=== PATIENT | male | born 1980 | race Caucasian/White ===

== ENCOUNTER 2022-10-04 11:08 | Outpatient (OUT) | payer OTHER, SELFPAY ==
[2022-10-06 00:07] LABS: Lead, Blood (Adult) 33.7 ug/dL (0.0-3.4)
== END 2022-10-04 11:09 ==
PROVIDERS: PCP Family Medicine; Visit Provider Family Medicine
DX: R78.71 Abnormal lead level in blood (principal)
CPT/HCPCS: 36415; 83655

== ENCOUNTER 2022-11-07 15:54 | Outpatient (OUT) | payer OTHER, SELFPAY ==
[2022-11-07 16:25] LABS: Basophils Absolute Auto 0.1 10^3/uL (0.0-0.1); Basophils Percent Auto 0.8 % (0.2-2.0); Eosinophils Percent Auto 0.3 % (0.9-7.0); Hematocrit 41.2 % (42.0-54.0); Hemoglobin 14.2 g/dL (14.0-18.0); Immature Granulocytes Abs Auto 0.02 10^3/uL (0.00-0.03); Immature Granulocytes Pct Auto 0.3 % (0.0-0.5); Lymphocytes Absolute Auto 1.7 10^3/uL (1.2-3.8); Lymphocytes Percent Auto 22.4 % (20.5-60.0); Mean Corpuscular HGB Conc 34.5 g/dL (29.9-35.2); Mean Corpuscular Hemoglobin 29.6 pg (25.9-34.0); Mean Corpuscular Volume 85.8 fL (80.0-94.0); Monocytes Absolute Auto 0.6 10^3/uL (0.3-0.8); Monocytes Percent Auto 8.4 % (1.7-12.0); Neutrophils Percent Auto 67.8 % (43.0-75.0); Platelet Count 277 10^3/uL (150-450); White Blood Count 7.4 10^3/uL (4.0-11.0)
[2022-11-07 17:03] LABS: Estimated Average Glucose 108 mg/dL; Glycohemoglobin A1C 5.4 % (4.5-6.2)
[2022-11-07 17:14] LABS: Prostate Specific Antigen Scrn 1.34 ng/mL (<=4.00)
[2022-11-07 18:08] LABS: Alanine Aminotransferase 33 U/L (16-63); Albumin Globulin Ratio 1.1; Albumin Level 4.3 g/dL (3.4-5.0); Alkaline Phosphatase 109 U/L (46-116); Anion Gap 16.1; Aspartate Amino Transferase 21 U/L (15-37); BUN Creatinine Ratio 10.3; Bilirubin Total 0.3 mg/dL (0.2-1.0); Calcium 10.4 mg/dL (8.5-10.1); Carbon Dioxide 24.5 mmol/L (21.0-32.0); Chloride 103 mmol/L (98-107); Chol HDL Ratio 3.8; Cholesterol 159 mg/dL (<=200); Estimated GFR (African America >60 (>=60); Estimated GFR (Non-African Ame >60 (>=60); Free T3 2.87 pg/mL (2.18-3.98); Glucose 89 mg/dL (74-106); HDL Cholesterol 42 mg/dL (40-60); LDL Cholesterol Calculated 95.8 mg/dL; Potassium 4.6 mmol/L (3.5-5.1); Sodium 139 mmol/L (136-145); Thyroid Stimulating Hormone 1.224 uIU/mL (0.358-3.740); Total Protein 8.3 g/dL (6.4-8.2); Triglycerides 106 mg/dL (<=150); VLDL CHOLESTEROL 21.2 mg/dL
[2022-11-10 06:09] LABS: Lead, Blood (Adult) 32.2 ug/dL (0.0-3.4)
== END 2022-11-07 15:55 | disposition home or self-care (01) ==
LOC: LAB 15:57
PROVIDERS: PCP Family Medicine; Visit Provider Family Medicine
DX: R53.83 Other fatigue (principal); K21.9 Gastro-esophageal reflux disease without esophagitis; R06.00 Dyspnea, unspecified; R73.09 Other abnormal glucose; Z12.5 Encounter for screening for malignant neoplasm of prostate; R78.71 Abnormal lead level in blood
CPT/HCPCS: 36415; 80053; 80061; 83036; 83525; 83655; 84436; 84443; 84481; 85025; G0103

== ENCOUNTER 2022-11-14 15:52 | Outpatient (OUT) | payer OTHER, SELFPAY ==
--- NOTE | 2022-11-14 | XR_ITS ---
The [address] [address] Patient Name: YAMILET WHITAKER MRN: [id number] date: 1980 Sex: M Assigned Patient Location: RAD Current Patient Location: RAD Accession/Order Number: [id number] Exam Date: 11/14/2022 16:15 Report Date: 11/14/2022 16:31 At the request of: IRENA JEFFERY Procedure: XR chest 2V EXAM: XR chest 2V HISTORY: Chest Pain r07.9 Covid U07.1 fatigue R53.83 COMPARISON: 09/09/2020. TECHNIQUE: PA and lateral views of the chest FINDINGS: There is no focal airspace consolidation. There are a few stable scattered calcified granuloma. There are mild reticular opacities in right lateral mid lung, likely represent scarring. The cardiomediastinal silhouette is not enlarged. No evidence of pleural effusion or pneumothorax are identified. No acute osseous abnormality. XR/XR chest 2V IMPRESSION: No acute cardiopulmonary process. Electronically authenticated by: RUBIN MCGILL Date: 11/14/2022 16:31
[2022-11-14 16:29] LABS: Troponin I High Sensitivity <4.0 pg/mL (4.0-76.1)
== END 2022-11-14 15:53 | disposition home or self-care (01) ==
LOC: RAD 15:54
PROVIDERS: PCP Family Medicine; Visit Provider Family Medicine
DX: U07.1 COVID-19 (principal); R07.9 Chest pain, unspecified; R53.83 Other fatigue
CPT/HCPCS: 36415; 71046; 83880; 84484

== ENCOUNTER 2023-01-16 15:12 | Outpatient (OUT) | payer OTHER, SELFPAY ==
[2023-01-17 20:08] LABS: Lead, Blood (Adult) 24.6 ug/dL (0.0-3.4)
== END 2023-01-16 15:13 | disposition home or self-care (01) ==
LOC: LAB 15:13
PROVIDERS: PCP Family Medicine; Visit Provider Family Medicine
DX: R78.71 Abnormal lead level in blood (principal)
CPT/HCPCS: 36415; 83655

== ENCOUNTER 2023-03-13 15:16 | Outpatient (OUT) | payer OTHER, SELFPAY ==
[2023-03-15 11:09] LABS: Lead, Blood (Adult) 29.3 ug/dL (0.0-3.4)
== END 2023-03-13 15:17 | disposition home or self-care (01) ==
LOC: LAB 15:17
PROVIDERS: PCP Family Medicine; Visit Provider Family Medicine
DX: R78.71 Abnormal lead level in blood (principal)
CPT/HCPCS: 36415; 83655

== ENCOUNTER 2023-05-01 15:39 | Outpatient (OUT) | payer OTHER, SELFPAY ==
--- OUTSIDE RECORDS SUMMARY | 2023-05-01 15:49 | XMS_ITS | CCD ---
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 activity/Vol] 22 U/L Normal 15-37 [facility] Comment on above: Performed By: #### C MP, LIPID #### [facility] [address] [place] [address] Dr. Rachel Cortez Bilirubin [Mass/Vol] 0.4 mg/dL Normal 0.2-1.0 [facility] Comment on above: Performed By: #### C MP, LIPID #### [facility] [address] [place], [place] [id number] Dr. Rachel Cortez Calcium [Mass/Vol] 10.1 mg/dL Normal 8.5-10.1 [facility] Comment on above: Performed By: #### C MP, LIPID #### [facility] [address] [place] [address] Dr. Rachel Cortez Chloride [Moles/Vol] 107 mmol/L Normal 98-107 [facility] Comment on above: Performed By: #### C MP, LIPID #### [facility] [address] [place] [address] Dr. Rachel Cortez CO2 [Moles/Vol] 30.0 mmol/L Normal 21.0-32.0 [facility] Comment on above: Performed By: #### C MP, LIPID #### [facility] [address] [place] [address] Dr. Rachel Cortez Creatinine [Mass/Vol] 1.16 mg/dL Normal 0.70-1.30 [facility] Comment on above: Performed By: #### C MP, LIPID #### [facility] [address] [place] [address] Dr. Rachel Cortez EGFR-AF NIGERIAN >60 Normal >=60 [facility] Comment on above: Performed By: #### C MP, LIPID #### [facility] [address] [place] [address] Dr. Rachel Cortez EGFR-NON AF NIGERIAN >60 Normal >=60 [facility] Comment on above: Performed By: #### C MP, LIPID #### [facility] [address] [place] [address] Dr. Rachel Cortez Globulin (S) [Mass/Vol] 3.0 g/dL Normal [facility] Comment on above: Performed By: #### C MP, LIPID #### [facility] [address] [place] [address] Dr. Rachel Cortez Glucose [Mass/Vol] 88 mg/dL Normal 74-106 [facility] Comment on above: Performed By: #### C MP, LIPID #### [facility] [address] [place] [address] Dr. Rachel Cortez Potassium [Moles/Vol] 3.9 mmol/L Normal 3.5-5.1 [facility] Comment on above: Performed By: #### C MP, LIPID #### [facility] [address] [place] [address] Dr. Rachel Cortez Protein [Mass/Vol] 7.0 g/dL Normal 6.4-8.2 [facility] Comment on above: Performed By: #### C MP, LIPID #### [facility] [address] [place] [address] Dr. Rachel Cortez Sodium [Moles/Vol] 143 mmol/L Normal 136-145 [facility] Comment on above: Performed By: #### C MP, LIPID #### [facility] [address] [place] [address] Dr. Rachel Cortez Urea nitrogen [Mass/Vol] 16.0 mg/dL Normal 7.0-18.0 [facility] Comment on above: Performed By: #### C MP, LIPID #### [facility] [address] [place] [address] Dr. Rachel Cortez Urea nitrogen/Creatinine [Mass ratio] 13.8 mg/mg Normal [facility] Comment on above: Performed By: #### C MP, LIPID #### [facility] [address] [place] [address] Dr. Rachel Cortez TSHon 05-07-2022 TSH 2.417 uIU/mL Normal 0.358-3.740 [facility] Comment on above: Performed By: #### I NSULIN #### [facility] [address] [place] [address] Dr. Rachel Cortez UA RANDOM W/MICROSCOPICon BACTERIA NONE SEEN Normal NONE SEEN [facility] Comment on above: Performed By: #### I NSULIN #### [facility] [address] [place] [address] Dr. Rachel Cortez Bilirubin Ql (U) Negative Normal NEGATIVE [facility] Comment on above: Performed By: #### I NSULIN #### [facility] [address] [place] [address] Dr. Rachel Cortez CAST NONE SEEN Normal NONE SEEN [facility] Comment on above: Performed By: #### I NSULIN #### [facility] [address] [place] [address] Dr. Rachel Cortez Clarity (U) CLEAR Normal CLEAR [facility] Comment on above: Performed By: #### I NSULIN #### [facility] [address] [place] [address] Dr. Rachel Cortez Color (U) YELLOW Normal YELLOW [facility] Comment on above: Performed By: #### I NSULIN #### [facility] [address] [place] [address] Dr. Rachel Cortez Crystals LM Nom (Urine sed) NONE SEEN Normal NONE SEEN [facility] Comment on above: Performed By: #### I NSULIN #### [facility] [address] [place] [address] Dr. Rachel Cortez Epithelial cells LM Ql (Urine sed) NONE SEEN Normal NONE SEEN /RARE [facility] Comment on above: Performed By: #### I NSULIN #### [facility] [address] [place] [address] Dr. Rachel Cortez Glucose Ql (U) Negative Normal NEGATIVE [facility] Comment on above: Performed By: #### I NSULIN #### [facility] [address] [place] [address] Dr. Rachel Cortez Hemoglobin Ql (U) Negative Normal NEGATIVE [facility] Comment on above: Performed By: #### I NSULIN #### [facility] [address] [place] [address] Dr. Rachel Cortez Ketones Ql (U) Negative Normal NEGATIVE [facility] Comment on above: Performed By: #### I NSULIN #### [facility] [address] [place] [address] Dr. Rachel Cortez LEUKOCYTES Negative Normal NEGATIVE [facility] Comment on above: Performed By: #### I NSULIN #### [facility] [address] [place] [address] Dr. Rachel Cortez MUCOUS MODERATE Abnormal NONE SEEN [facility] Comment on above: Performed By: #### I NSULIN #### [facility] [address] [place] [address] Dr. Rachel Cortez Nitrite Ql (U) Negative Normal NEGATIVE [facility] Comment on above: Performed By: #### I NSULIN #### [facility] [address] [place] [address] Dr. Rachel Cortez pH (U) 6.0 [pH] Normal 5-9 [facility] Comment on above: Performed By: #### I NSULIN #### [facility] [address] [place] [address] Dr. Rachel Cortez RBC NONE SEEN Abnormal 0-2 [facility] Comment on above: Performed By: #### I NSULIN #### [facility] [address] [place] [address] Dr. Rachel Cortez SPEC GRAVITY 1.030 Abnormal 1.005-<=1.[address] [facility] Comment on above: Performed By: #### I NSULIN #### [facility] [address] [place] [address] Dr. Rachel Cortez UA PROTEIN Negative Normal NEGATIVE/ TRACE [facility] Comment on above: Performed By: #### I NSULIN #### [facility] [address] [place] [address] Dr. Rachel Cortez Urobilinogen Qn (U) 1.0 {Colby'U}/dL Normal 0.2 - 1. 0 [facility] Comment on above: Performed By: #### I NSULIN #### [facility] [address] [place] [address] Dr. Rachel Cortez WBC NONE SEEN Normal NONE SEEN [facility] Comment on above: Performed By: #### I NSULIN #### [facility] [address] [place] [address] Dr. Rachel Cortez XR LSPINE MIN 4 VIEWSon 04-24 XR LSPINE MIN 4 VIEWS EXAMINATION: XR LSPINE MIN 4 VIEWS HISTORY: Lumbar radiculopathy ; chronic back pain radiating into left leg COMPARISON: No relevant comparison available. FINDINGS: BONES: Mild degenerative facet arthropathy L5-S1. No significant spondylosis, scoliosis, fracture, or visible bony lesion. DISC SPACES: No significant disc height narrowing, subluxation, or endplate abnormality. PARASPINOUS: Negative. No paraspinous abnormality is seen. OTHER: Negative. IMPRESSION: 1. Mild degenerative facet arthropathy lower lumbar spine. 2. No appreciable acute abnormality or significant degenerative changes. Electronically authenticated by: MARINA MAIN Date: 2022-05-06 16:40 Normal [facility] Coding Summary.on 03-31-2020 Coding Summary. CODING DATE: 03/31/2020 FINAL [facility] STATUS: Home (Routine DC) PAYOR: Self Pay APC DESCRIPTION 5522 Level 2 Imaging without Contrast ADMIT DX: REASON FOR VISIT DX: M54.5 Low back pain FINAL DX: PRINCIPAL: S39.012A Strain of muscle, fascia and tendon of lower back, initial encounter SECONDARY: X50.0XXA Overexertion from strenuous movement or load, initial encounter PYMT PROC APC STAT DESCRIPTION DOCTOR NAME DATE NOTE: The code number assigned matches the documented diagnosis and / or procedure in the patient's chart. However, the narrative phrase printed from the coding software may appear abbreviated, or result in slightly different terminology. Coded By: Georgia Barajas Date Saved: 03/31/2020 08:22 am Normal [facility] Consent for Treatmenton Consent for Treatment [id number] #1.00CD:127 Normal [facility] Discharge Instructionson Discharge Instructions [id number]#1.00CD:127 Normal [facility] ED Clinical Summaryon 2019 ED Clinical Summary [address] [place] [address] ED Clinical Summary Person Information Name: YAMILET WHITAKER [place] Age: 39 Years : 1980 Sex: Male Language: Cape Verdean PCP: Irena Jeffery MD Marital Status: Single Visit Id: Visit Reason: Back pain; BACK PAIN Speciality: Acuity: 4 Enc Type: Emergency Med Service: Emergency Arrival: 03/30/2020 11:37:37 Discharge: 03/30/2020 14:10:39 LOS: 000 02:33 Checkin: 03/30/2020 11:37:37 Checkout: 03/30/2020 14:10:39 Dispo Type: Home (Routine DC) EVENTS: Event Name Event Status Request Date/Time Start Date/Time Complete Date/Time Arrive Complete 03/30/2020 11:37:37 03/30/2020 11:37:37 03/30/2020 11:37:37 Document Home Meds Request 03/30/2020 11:37:37 Triage Complete 03/30/2020 11:37:37 03/30/2020 11:43:16 03/30/2020 11:43:16 Bed Assign Complete 03/30/2020 11:43:32 03/30/2020 11:43:32 03/30/2020 11:43:32 Dr Exam Complete 03/30/2020 11:43:32 03/30/2020 11:47:33 03/30/2020 11:47:33 RN Exam Complete 03/30/2020 11:43:32 03/30/2020 12:04:58 03/30/2020 12:04:58 Registration Complete 03/30/2020 11:45:33 03/30/2020 11:45:33 03/30/2020 11:45:33 Reg Complete Request 03/30/2020 11:45:33 Registration Complete 03/30/2020 11:47:33 03/30/2020 13:58:04 03/30/2020 13:58:04 Dr Exam Complete 03/30/2020 11:48:27 03/30/2020 11:48:27 03/30/2020 11:48:27 X-Ray Complete 03/30/2020 11:55:24 03/30/2020 11:59:01 03/30/2020 12:13:47 Wet Read Complete 03/30/2020 12:13:47 03/30/2020 12:15:23 03/30/2020 12:15:23 Meds Admin Complete 03/30/2020 12:18:37 03/30/2020 12:50:04 Discharge Complete 03/30/2020 12:18:40 03/30/2020 14:05:58 03/30/2020 14:05:58 Transfer Complete 03/30/2020 14:05:58 03/30/2020 14:05:58 03/30/2020 14:05:58 [address] [facility] [facility] [address] PHYS DOC NOTES: MEDICAL INFORMATION: Prescriptions Given: New Medications Printed Prescriptions acetaminophen-hydroc odone (Wheeler 325 mg-5 mg oral tablet) 1 Tablets By Mouth every 6 hours as needed for pain for 3 Days. Refills: 0. methocarbamol (Robaxin-750 oral tablet) 2 Tablets By Mouth 3 times a day for 3 Days. Refills: 0. predniSONE (predniSONE 20 mg Tab) 3 Tablets By Mouth every day for 5 Days. Refills: 0. Medications to Continue with No Changes Other Medications brompheniramine/dext romethorphan/PSE (Bromfed DM oral syrup) 5 Milliliter By Mouth 4 times a day as needed for cold symptoms. Refills: 0. PATIENT EDUCATION INFORMATION: Instructions: Lumbosacral Strain Follow up: With: Address: When: Irena Jeffery [address] [place] [address], [facility] [address] Business (1) In 3 days 04/02/2020 DIAGNOSIS: Lumbar strain Normal [facility] ED Note-Physicianon 03-30-20 ED Note-Physician Basic Information Time Seen: Darrick Gibbs PA-C 03/30/2020 11:47 Chief Complaint Pt. presents to the ed with c/o left lower back pain that started last night while laying in bed. 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 History of Present Illness 39-year-old male comes into the ED for evaluation of back pain. He states he had some generalized back soreness for last couple of days. He attributes this to doing a lot of heavy lifting and moving. He went to stretch his back out while sitting in bed last night and felt a pop in the lumbar region. He presents complaining of pain to the left lumbar region with some radiation down the left leg. No associated paresthesias or saddle anesthesia. No lower extremity weakness. No bowel or bladder incontinence or retention. No dysuria or hematuria. No associated abdominal pain, nausea, vomiting, fever or chills. He has taken Motrin with some improvement. Review of Systems A 10 point review of systems is negative except as noted above. Medical and Surgical History: Reviewed and noted Social history: Lives at home Tobacco: Current Physical Exam Vitals & Measurements T: 36.4 ?C (Temporal Artery) HR: 73(Peripheral) RR: 16 BP: 118/76 SpO2: 100% HT: 178.0 cm HT: 178 cm WT: 70.5 kg WT: 70.5 kg BMI: 22.25 Nurses notes and vital signs reviewed and patient is not hypoxic. General: The patient appears well, resting comfortably. Skin: Warm, dry. Head: Atraumatic. Neck: No JVD. Eye: Normal conjunctiva. Ears, Nose, Mouth, and Throat: Moist mucous membranes. Cardiovascular: Strong distal pulses. Chest wall: Respiratory: Respirations are nonlabored. Back: Tenderness over the left lumbar region. No midline bony instability or step-offs. No swelling, ecchymosis or erythema. No area of point tenderness. Decreased range of motion. No evidence of lower extremity neurovascular compromise. No CVA tenderness noted bilaterally. Musculoskeletal: Normal ROM with no gross deformity. Patient able to ambulate without any significant difficulty. Gastrointestinal: Soft and nontender. Urological: Neurological: Awake and alert. No focal deficits. Follows commands. Psychiatric: Cooperative. Medical Decision Making Imaging shows no acute findings. Likely muscular etiology is discussed. No evidence of neurovascular compromise. He is treated with pain medication, muscle relaxers and steroids. Discharged with PCP follow-up. Patient was encouraged to return to the ED if symptoms worsen or change. Assessment/Plan Lumbar strain (S39.012A: Strain of muscle, fascia and tendon of lower back, initial encounter) Ordered: acetaminophen-hydroc odone, 1 tab(s), Oral, q6hr for pain for 3 day(s), 10 tab(s), Refill(s) 0 Orders: acetaminophen-oxycod one, 1 tab(s), Tab, Oral, Once, Stop date 03/30/20 12:18:00 EST, STAT, Start date 03/30/20 12:18:00 EST methocarbamol, 1,500 mg = 2 tab(s), Oral, TID, X 3 day(s), # 18 tab(s), Refills(s) 0 orphenadrine, 60 mg = 2 mL, Injection, IntraMuscular, Once, Stop date 03/30/20 12:18:00 EST, STAT, Start date 12/07/20 12:18:00 EST predniSONE, 60 mg = 3 tab(s), Oral, Daily, X 5 day(s), # 15 tab(s), Refills(s) 0 XR Spine Lumbosacral 2 or 3 Views Disposition Plan Patient Discharge Condition Disposition: Discharged home Condition: Improved and stable Counseled: Patient and/or family were counseled to workup, results, treatment plan and follow-up recommendations Discharge Prescription List Prescriptions Wheeler 325 mg-5 mg oral tablet, 1 tab(s), Oral, q6hr, PRN predniSONE 20 mg Tab, 60 mg= 3 tab(s), Oral, Daily Robaxin-750 oral tablet, 1500 mg= 2 tab(s), Oral, TID Follow-up With When Contact Information Irena Jeffery In 3 days 04/02/2020 [address] [id number] [place] [id number]- Business (1) Additional Instructions: Patient Education Lumbosacral Strain Attestation Patient seen and evaluated by the physician visitor services assistant. Attending physician was present in the emergency department and supervised care. This report was transcribed using voice recognition software. Every effort was made to ensure accuracy, however, inadvertently computerized territory sales consultant mistakes may be present. Appropriate healthcare PPE was used in evaluating this patient. The patient was placed in a mask. The healthcare provider was wearing mask, gloves, googles and utilizing proper hand hygiene. All equipment was properly cleansed. Problem List/Past Medical History Ongoing No qualifying data Historical No qualifying data Medications Inpatient orphenadrine 30 mg/mL Inj, 60 mg= 2 mL, IntraMuscular, Once Percocet 325 mg-5 mg Tab, 1 tab(s), Oral, Once Home Bromfed DM oral syrup, 5 mL, Oral, QID, PRN Wheeler 325 mg-5 mg oral tablet, 1 tab(s), Oral, q6hr, PRN predniSONE 20 mg Tab, 60 mg= 3 tab(s), Oral, Daily Robaxin-750 oral tablet, 1500 mg= 2 tab(s), Oral, TID Allergies No Known Allergies Social History Alcohol - Medium Risk, 03/30/2020 Current, Liquor, 3-5 times per week, 03/30/2020 Substance Abuse - Denies Substance Abuse, 03/30/2020 Tobacco - Denies Tobacco Use, 03/30/2020 Lab Results No qualifying data available. Diagnostic Results XR Spine Lumbosacral 2 or 3 Views * Preliminary * 03/30/20 12:15:18 NEGATIVE: No fracture, subluxation or other acute abnormality Read By: Shaun Tomlinson DO 03/30/20 12:15:19 NEGATIVE: No fracture, dislocation or other acute abnormality Read By: Darrick Gibbs PA-C [facility] Comment on above: Result Comment: Elec tronically Signed By: Darrick Gibbs PA-C\.br\Date and Time Signed: 03/30/20 12:26 EST\.br\Electronically Co-Signed By: Shaun Tomlinson DO\.br\Date and Time Co-Signed: 03/30/20 14:11 EST ED Patient Education Noteon 03-30-2020 ED Patient Education Note Musculoskeletal Lumbosacral Strain Lumbosacral strain is a strain of any of the parts that make up your lumbosacral vertebrae. Your lumbosacral vertebrae are the bones that make up the lower third of your backbone. Your lumbosacral vertebrae are held together by muscles and tough, fibrous tissue (ligaments). CAUSES A sudden blow to your back can cause lumbosacral strain. Also, anything that causes an excessive stretch of the muscles in the low back can cause this strain. This is typically seen when people exert themselves strenuously, fall, lift heavy objects, bend, or crouch repeatedly. RISK FACTORS ? Physically demanding work. ? Participation in pushing or pulling sports or sports that require a sudden twist of the back (tennis, golf, baseball). ? Weight lifting. ? Excessive lower back curvature. ? Forward-tilted pelvis. ? Weak back or abdominal muscles or both. ? Tight hamstrings. SIGNS AND SYMPTOMS Lumbosacral strain may cause pain in the area of your injury or pain that moves (radiates) down your leg. DIAGNOSIS Your health care provider can often diagnose lumbosacral strain through a physical exam. In some cases, you may need tests such as X-ray exams. TREATMENT Treatment for your lower back injury depends on many factors that your clinician will have to evaluate. However, most treatment will include the use of anti-inflammatory medicines. HOME CARE INSTRUCTIONS ? Avoid hard physical activities (tennis, racquetball, waterskiing) if you are not in proper physical condition for it. This may aggravate or create problems. ? If you have a back problem, avoid sports requiring sudden body movements. Swimming and walking are generally safer activities. ? Maintain good posture. ? Maintain a healthy weight. ? For acute conditions, you may put ice on the injured area. ? Put ice in a plastic bag. ? Place a towel between your skin and the bag. ? Leave the ice on for 20 minutes, 2?3 times a day. ? When the low back starts healing, stretching and strengthening exercises may be recommended. SEEK MEDICAL CARE IF: ? Your back pain is getting worse. ? You experience severe back pain not relieved with medicines. SEEK IMMEDIATE MEDICAL CARE IF: ? You have numbness, tingling, weakness, or problems with the use of your arms or legs. ? There is a change in bowel or bladder control. ? You have increasing pain in any area of the body, including your belly (abdomen). ? You notice shortness of breath, dizziness, or feel faint. ? You feel sick to your stomach (nauseous), are throwing up (vomiting), or become sweaty. ? You notice discoloration of your toes or legs, or your feet get very cold. MAKE SURE YOU: ? Understand these instructions. ? Will watch your condition. ? Will get help right away if you are not doing well or get worse. Document Released: 01/18/2006 Document Revised: 04/15/2014 Document Reviewed: 11/27/2013 ExitCare? Patient Information ?2015 Personally, [employer]. This information is not intended to replace advice given to you by your health care provider. Make sure you discuss any questions you have with your health care provider. [facility] ED Patient Summaryon 020 ED Patient Summary [address] [address] Patient Discharge Instructions Person Information Name: YAMILET WHITAKER Age: 39 Years Arrival Date: 03/30/2020 11:37:37 Discharge Diagnosis: Lumbar strain Primary Care Physician: Irena Jeffery MD Provider Information Primary Provider: Shaun Tomlinson DO [employer] Technician:Darrick Gibbs PA-C The exam and treatment you received in the Emergency Department were for an urgent problem and are not intended as complete care. It is important that you follow up with a doctor, nurse practitioner, or physician?s visitor services assistant for ongoing care. If your symptoms become worse or you do not improve as expected and you are unable to reach your usual health care provider, you should return to the Emergency Department. We are available 24 hours a day. YAMILET WHITAKER has been given the following list of patient education materials, prescriptions and follow-up instructions: Follow-up Instructions: With: Address: When: Irena Jeffery [address] [place] [address], [address] [place] [id number] [employer] (1) In 3 days 04/02/2020 In the event that this physician does not participate in your insurance network, please consult with your insurance company to find a nearby participating provider. Patient Education Materials: Lumbosacral Strain A MESSAGE TO ALL PATIENTS REGARDING OPIOIDS PRESCRIPTION OPIOIDS: WHAT YOU NEED TO KNOW Prescription opioids can be used to help relieve osrjvwwe-uq-utaabf pain and are often prescribed following a surgery or injury, or for certain health conditions. These medications can be an important part of the treatment but also come with serious risks. It is important to work with your healthcare provider to make sure you are getting the safest, most effective care. WHAT ARE THE RISKS AND SIDE EFFECTS OF OPIOID USE? Prescription opioids carry serious risks of addiction and overdose, especially with prolonged use. An opioid overdose, often marked by slowed breathing, can cause sudden . The use of prescription opioids can have a number of side effects as well, even when taken as directed: ? Tolerance?meaning you might need to take more of the medication for the same pain relief ? Physical dependence?meaning you have symptoms of withdrawal when a medication is stopped ? Increased sensitivity to pain ? Constipation ? Nausea, vomiting, and dry mouth ? Sleepiness and dizziness ? Confusion ? Depression ? Low levels of testosterone that can result in lower sex drive, energy, and strength ? Itching and sweating RISKS ARE GREATER WITH: ? History of drug misuse, substance use disorder, or overdose ? Mental health conditions (such as depression or anxiety) ? Sleep apnea ? Older age (65 years and older) ? Avoid alcohol while taking prescription opioids. Also, unless specifically advised by your health care provider, medications to avoid include: ? Benzodiazepines (such as Xanax or Valium) ? Muscle relaxants (such as Soma or Flexeril) ? Hypnotics (such as Ambien or Lunesta) ? Other prescription opioids KNOW YOUR OPTIONS Talk to your health care provider about ways to manage your pain that don?t involve prescription opioids. Some of these options may actually work better and have fewer risks and side effects. Options may include: ? Pain relievers such as acetaminophen, ibuprofen, and naproxen ? Some medication that are also used for depression or seizures ? Physical therapy and exercise ? Cognitive behavioral therapy, a psychological, goal-directed approach, in which patients learn how to modify physical, behavioral, and emotional triggers of pain and stress. IF YOU ARE PRESCRIBED OPIOIDS FOR PAIN: ? Never take opioids in greater amounts or more often than prescribed. ? Follow up with your primary health care provider. o Work together to create a plan on how to manage your pain. o Talk about ways to help manage your pain that don?t involve prescription opioids. o Talk about any and all concerns and side effects. ? Help prevent misuse and abuse o Never sell or share prescription opioids. o Never use another person?s prescription opioids. ? Store prescription opioids in a secure place and out of reach of others (this may include visitors, children, friends, and family). ? Safely dispose of unused prescription opioids: Find your community drug take-back program or your pharmacy mail-back program, or flush them down the toilet, following guidance from the Food and Drug Administration (www.fda.gov/Drugs/R esourcesForYou). ? Visit www.cdc.gov/drugover dose to learn about the risks of opioids abuse and overdose. ? If you believe you may be struggling with addiction, tell your health foster care social worker and ask for guidance or call SAMHSA?S National Helpline at 3-536-288-BFLV. v Source: US Department of Health and Human Services/Center for Disease Control & Prevention [facility] Medications Given: Medication Dose Route orphenadrine 60.00 mg IntraMuscular Left Gluteus Medius acetaminophen-oxycod one 1.00 tab(s) Oral Medication Information: New Medications Printed Prescriptions acetaminophen-hydroc odone (Wheeler 325 mg-5 mg oral tablet) 1 Tablets By Mouth every 6 hours as needed for pain for 3 Days. Refills: 0. methocarbamol (Robaxin-750 oral tablet) 2 Tablets By Mouth 3 times a day for 3 Days. Refills: 0. predniSONE (predniSONE 20 mg Tab) 3 Tablets By Mouth every day for 5 Days. Refills: 0. Medications to Continue with No Changes Other Medications brompheniramine/dext romethorphan/PSE (Bromfed DM oral syrup) 5 Milliliter By Mouth 4 times a day as needed for cold symptoms. Refills: 0. Comment: Pharmacy Information: Thank you for choosing [facility] Patient Education Materials: Lumbosacral Strain Lumbosacral strain is a strain of any of the parts that make up your lumbosacral vertebrae. Your lumbosacral vertebrae are the bones that make up the lower third of your backbone. Your lumbosacral vertebrae are held together by muscles and tough, fibrous tissue (ligaments). CAUSES A sudden blow to your back can cause lumbosacral strain. Also, anything that causes an excessive stretch of the muscles in the low back can cause this strain. This is typically seen when people exert themselves strenuously, fall, lift heavy objects, bend, or crouch repeatedly. RISK FACTORS ? Physically demanding work. ? Participation in pushing or pulling sports or sports that require a sudden twist of the back (tennis, golf, baseball). ? Weight lifting. ? Excessive lower back curvature. ? Forward-tilted pelvis. ? Weak back or abdominal muscles or both. ? Tight hamstrings. SIGNS AND SYMPTOMS Lumbosacral strain may cause pain in the area of your injury or pain that moves (radiates) down your leg. DIAGNOSIS Your health care provider can often diagnose lumbosacral strain through a physical exam. In some cases, you may need tests such as X-ray exams. TREATMENT Treatment for your lower back injury depends on many factors that your clinician will have to evaluate. However, most treatment will include the use of anti-inflammatory medicines. HOME CARE INSTRUCTIONS ? Avoid hard physical activities (tennis, racquetball, waterskiing) if you are not in proper physical condition for it. This may aggravate or create problems. ? If you have a back problem, avoid sports requiring sudden body movements. Swimming and walking are generally safer activities. ? Maintain good posture. ? Maintain a healthy weight. ? For acute conditions, you may put ice on the injured area. ? Put ice in a plastic bag. ? Place a towel between your skin and the bag. ? Leave the ice on for 20 minutes, 2?3 times a day. ? When the low back starts healing, stretching and strengthening exercises may be recommended. SEEK MEDICAL CARE IF: ? Your back pain is getting worse. ? You experience severe back pain not relieved with medicines. SEEK IMMEDIATE MEDICAL CARE IF: ? You have numbness, tingling, weakness, or problems with the use of your arms or legs. ? There is a change in bowel or bladder control. ? You have increasing pain in any area of the body, including your belly (abdomen). ? You notice shortness of breath, dizziness, or feel faint. ? You feel sick to your stomach (nauseous), are throwing up (vomiting), or become sweaty. ? You notice discoloration of your toes or legs, or your feet get very cold. MAKE SURE YOU: ? Understand these instructions. ? Will watch your condition. ? Will get help right away if you are not doing well or get worse. Document Released: 01/18/2006 Document Revised: 04/15/2014 Document Reviewed: 11/27/2013 ExitCare? Patient Information ?2015 [employer]. This information is not intended to replace advice given to you by your health care provider. Make sure you discuss any questions you have with your health care provider. JULIANNE Mitchell BRIAN S , have received the following patient education materials/instructio ns and have verbalized understanding: Patient Education Materials: Lumbosacral Strain Follow-up Instructions: With: Address: When: Irena Jeffery [address] [place] [address], [place] [address] Business (1) In 3 days 04/02/2020 Patient Signature Date Clinician/Nurse Signature Date 03/30/2020 14:06:00 [facility] Prescriptions/Work Noteson 1 05-31-2019 Prescriptions/Work Notes [id number] 2#1.00CD:127 [facility] XR Spine Lumbosacral 2 or 3 Viewson 03-30-2020 XR Spine Lumbosacral 2 or 3 Views Exam Date/Time: 03/30/2020 12:13 EST Reason for Exam: Pain, Traumatic Report IMPRESSION: NEGATIVE LUMBOSACRAL SPINE SERIES, EXCEPT FOR MINIMAL DEGENERATIVE HYPERTROPHIC SPURS FROM LUMBAR VERTEBRAL BODIES. CLINICAL HISTORY: Pain, Traumatic COMPARISON: NONE FINDINGS: Three views of the lumbosacral spine demonstrate no evidence of a fracture, subluxation, bone or joint abnormality, except for minimal degenerative hypertrophic spurs from lumbar vertebral bodies. FINAL REPORT Dictated: 03/30/2020 1:25 pm Nicholas Mullen M.D. Signed (Electronic Signature): 03/30/2020 4:43 pm Signed by: Nicholas Mullen M.D. Transcribed by: caleb Technologist: [facility] Encounters Encounter Date Encounter Type Care Provider Facility Start: 09-01-2022 End: 09-02-[address] IRENA JEFFERY . Facility:[facility] Start: 08-30-2022 End: 08-31-[address] IRENA JEFFERY . Facility:[facility] Start: 08-29-2022 End: 08-30-[address] IRENA JEFFERY . Facility:[facility] Start: 08-11-2022 End: 08-11-2022 ambulatory BEV MILLS . Facility:[facility] Start: 05-07-2022 End: 05-08-[address] IRENA JEFFERY . Facility:[facility] Start: 05-06-2022 End: 05-07-[address] IRENA JEFFERY . Facility: Procedures Date Procedure Procedure Detail Performing Clinician Start: 05-07-[address] BERTA JEFFERY . Comment on above: Performed By: #### L EADA #### [facility] [address] [place] [address] [address] Rachel Cortez Payers Date Payer Category Payer Unknown [id number] 2.16.84 [id number] 1980 Unknown [id number] 2.16.84 [id number] 1980 Unknown [id number] 2.16.84 [id number] 1978 Unknown [id number] 2.16.84 [id number] 1978 Unknown [id number] 2.16.84 [id number] 1980 Unknown [id number] 2.16.84 [id number] 1959 Unknown [id number] Summary Purpose Family History No Family History Records FoundNo Family History Records Found Advance Directives No Advanced Directives Records FoundNo Advanced Directives Records Found Additional Source Comments (unrecognized sect ion and content) No Status Records FoundNo Status Records Found INFORMATION SOURCE (unrecogn ized section and content) DATE CREATED AUTHOR 03/31/2020 [facility] DATE CREATED AUTHOR AUTHOR'S ORGANIZ ATION 09/05/2022 [facility] FOR RECORDS PERTAINING TO PATIENTS WHO ARE OR HAVE BEEN ENROLLED IN A CHEMICAL DEPENDENCY/SUBSTANCEABUSE PROGRAM, SOME INFORMATION MAY BE OMITTED. This clinical summary was aggregated from multiple sources. Caution should be exercised in using it in the provision of clinical care. This summary normalizes information from multiple sources, and as a consequence, information in this document may materially change the coding, format and clinical context of patient data. In addition, data may be omitted in some cases. CLINICAL DECISIONS SHOULD BE BASED ON THE PRIMARY CLINICAL RECORDS. [facility] [employer] [facility]. provides no warranty or guarantee of the accuracy or completeness of information in this document.
[2023-05-01 15:57] LABS: Basophils Percent Auto 0.5 % (0.2-2.0); Eosinophils Percent Auto 0.1 % (0.9-7.0); Hematocrit 40.4 % (42.0-54.0); Hemoglobin 13.8 g/dL (14.0-18.0); Immature Granulocytes Abs Auto 0.05 10^3/uL (0.00-0.03); Immature Granulocytes Pct Auto 0.6 % (0.0-0.5); Lymphocytes Percent Auto 24.9 % (20.5-60.0); Mean Corpuscular HGB Conc 34.2 g/dL (29.9-35.2); Mean Corpuscular Hemoglobin 29.9 pg (25.9-34.0); Mean Corpuscular Volume 87.4 fL (80.0-94.0); Mean Platelet Volume 9.8 fL (9.5-13.5); Monocytes Absolute Auto 0.8 10^3/uL (0.3-0.8); Monocytes Percent Auto 9.6 % (1.7-12.0); Neutrophils Absolute Auto 5.2 10^3/uL (1.4-6.5); Neutrophils Percent Auto 64.3 % (43.0-75.0); Platelet Count 217 10^3/uL (150-450); Red Blood Count 4.62 10^6/uL (4.70-6.10)
== END 2023-05-01 15:40 | disposition home or self-care (01) ==
LOC: LAB 15:40
PROVIDERS: PCP Family Medicine; Visit Provider Family Medicine
DX: M25.569 Pain in unspecified knee (principal); R78.71 Abnormal lead level in blood
CPT/HCPCS: 36415; 83655; 85025

== ENCOUNTER 2023-06-21 14:48 | Outpatient (OUT) | payer OTHER, SELFPAY | END 2023-06-21 14:49 | disposition home or self-care (01) | LOC: LAB 14:49 | PROVIDERS: PCP Family Medicine; Visit Provider Family Medicine | DX: R78.71 Abnormal lead level in blood (principal) | CPT/HCPCS: 36415; 83655 ==

== ENCOUNTER 2023-06-27 14:09 | Emergency (ER) | payer OTHER, SELFPAY ==
[2023-06-27 14:24] VITALS: BP 114/77; PULSE 67; RESP 14; TEMP 36.9; O2SAT 98; BMI 23.0
--- NOTE | 2023-06-27 14:32 | XR_ITS ---
The [address] [address] Patient Name: YAMILET WHITAKER MRN: [id number] date: 1980 Sex: M Assigned Patient Location: ER Current Patient Location: ER Accession/Order Number: [id number] Exam Date: 06/27/2023 15:28 Report Date: 06/27/2023 15:45 At the request of: RASHI MURPHY Procedure: XR chest 2V EXAM: XR chest 2V HISTORY: chest pain COMPARISON: 11/14/2022 TECHNIQUE: Upright PA and lateral chest x-ray FINDINGS: The heart is not enlarged and the vasculature is not distended. No acute infiltrate, effusion or pneumothorax is identified. There is been interval resolution of the subtle infiltrate noted in the right mid lung laterally in the prior study. The osseous structures are intact. XR/XR chest 2V IMPRESSION: No acute infiltrate or evidence of cardiac decompensation. Interval clearing of the interstitial changes previously noted in the right mid lung laterally. Otherwise, the overall appearance of the chest is unchanged. Electronically authenticated by: MARLYS MUNOZ Date: 06/27/2023 15:45
--- NOTE | 2023-06-27 14:32 | ECG_ITS ---
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
[2023-06-27 14:55] LABS: Basophils Absolute Auto 0.1 10^3/uL (0.0-0.1); Basophils Percent Auto 0.7 % (0.2-2.0); Eosinophils Absolute Auto 0.2 10^3/uL (0.0-0.7); Eosinophils Percent Auto 3.1 % (0.9-7.0); Hematocrit 40.5 % (42.0-54.0); Hemoglobin 13.7 g/dL (14.0-18.0); Immature Granulocytes Abs Auto 0.03 10^3/uL (0.00-0.03); Immature Granulocytes Pct Auto 0.4 % (0.0-0.5); Lymphocytes Absolute Auto 1.2 10^3/uL (1.2-3.8); Lymphocytes Percent Auto 17.6 % (20.5-60.0); Mean Corpuscular HGB Conc 33.8 g/dL (29.9-35.2); Mean Corpuscular Hemoglobin 30.2 pg (25.9-34.0); Mean Corpuscular Volume 89.2 fL (80.0-94.0); Mean Platelet Volume 10.5 fL (9.5-13.5); Monocytes Absolute Auto 0.6 10^3/uL (0.3-0.8); Monocytes Percent Auto 8.7 % (1.7-12.0); Neutrophils Absolute Auto 4.8 10^3/uL (1.4-6.5); Neutrophils Percent Auto 69.5 % (43.0-75.0); Platelet Count 173 10^3/uL (150-450); Red Blood Count 4.54 10^6/uL (4.70-6.10); Red Cell Distribution Width 12.3 % (11.0-15.0); White Blood Count 6.9 10^3/uL (4.0-11.0)
[2023-06-27 15:15] LABS: INR 1.02; Partial Thromboplastin Time 30.8 sec (22.3-36.2); Prothrombin Time 10.8 sec (9.0-11.6)
[2023-06-27 15:17] LABS: Alanine Aminotransferase 46 U/L (16-63); Albumin Globulin Ratio 1.2; Albumin Level 3.9 g/dL (3.4-5.0); Alkaline Phosphatase 85 U/L (46-116); Anion Gap 10.3; Aspartate Amino Transferase 29 U/L (15-37); BUN Creatinine Ratio 13.9; Bilirubin Total 0.4 mg/dL (0.2-1.0); Calcium 9.9 mg/dL (8.5-10.1); Carbon Dioxide 30.2 mmol/L (21.0-32.0); Chloride 103 mmol/L (98-107); Estimated GFR (African America >60 (>=60); Estimated GFR (Non-African Ame >60 (>=60); Globulin 3.2 g/dL; Glucose 91 mg/dL (74-106); Potassium 4.5 mmol/L (3.5-5.1); Sodium 139 mmol/L (136-145); Total Protein 7.1 g/dL (6.4-8.2)
[2023-06-27 15:18] LABS: Troponin I High Sensitivity <4.0 pg/mL (4.0-76.1)
[2023-06-27 17:06] LABS: Troponin I High Sensitivity <4.0 pg/mL (4.0-76.1)
--- NOTE | 2023-06-27 19:44 | ED_ITS ---
HPI - Chest Pain General Chief Complaint: Chest Pain Stated Complaint: Chest Pain Time Seen by Provider: 06/27/23 14:30 Source: patient Mode of arrival: walk-in Limitations: no limitations History of Present Illness HPI narrative: 42-year-old male to the emergency department with chief complaint of chest discomfort. He reports that he has a sensation of panic, chest pressure associated with tingling in his arms. This is been occurring sporadically for some time. It occurs without any warning. Occurred today while he was at work. He denies any shoortness of breath or leg swelling. He has no cardiac history. He is being worked up for lead poisoning which he believes is related. Related Data Home Medications Medication Instructions Recorded Confirmed apixaban 5 mg tablet (Eliquis) 5 mg PO Q12H 06/27/23 06/27/23 aspirin 81 mg tablet,delayed 81 mg PO DAILY 06/27/23 06/27/23 release citalopram 20 mg tablet 20 mg PO .QD 06/27/23 06/27/23 Previous Rx's Medication Instructions Recorded hydroxyzine HCl 25 mg tablet 25 mg PO Q8H PRN anxiety #14 tabs 06/27/23 Allergies Allergy/AdvReac Type Severity Reaction Status Date / Time No Known Drug Allergies Allergy Verified 06/27/23 14:23 Review of Systems ROS Status of ROS 10 or more systems reviewed and unremark able except as noted in history and below [facility] Social History Smoking status: Never smoker Exam Narrative Exam Narrative: VITALS: I have reviewed the triage vital signs. GENERAL: Well developed, well appearing adult in no acute distress. NEURO: Alert and oriented. Moves all extremities. Face is symmetric and expressive. EYES: PERRL. No scleral icterus or conjunctival injection. No discharge. HENT: Normocephalic, atraumatic. Hearing is grossly intact. Nares grossly patent and without discharge. Mucous membranes moist. NECK: No JVD. Patient moves neck without restriction. CARDIO: Rhythm regular. Normal rate. No murmur, rub, or gallop. Pulses equal bilaterally in the upper and lower extremity. No lower extremity edema. PULM: Lungs clear to auscultation in all metzger. No wheezes, rales, or rhonchi. No conversational dyspnea. No splinting, stridor, or accessory muscle use. GI/: Abdomen is soft and non-tender. Normoactive bowel sounds. EXTREMITIES: Symmetric muscle bulk. No joint swelling. No clubbing, cyanosis, or deformity. SKIN: Warm and dry. Normal turgor. No rash or lesions appreciated. PSYCH: Mood, affect, and interaction is appropriate to the setting. Constitutional Vital Signs, click to edit/add: Last Vital Signs Temp 98.4 F 06/27/23 14:24 Pulse 67 06/27/23 14:24 Resp 14 06/27/23 14:24 BP 114/77 06/27/23 14:24 Pulse Ox 98 06/27/23 14:24 O2 Del Method Room Air 06/27/23 14:24 Course Vital Signs Vital signs: Vital Signs Temperature 98.4 F 06/27/23 14:24 Pulse Rate 67 06/27/23 14:24 Respiratory Rate 14 06/27/23 14:24 Blood Pressure 114/77 06/27/23 14:24 Pulse Oximetry 98 06/27/23 14:24 Oxygen Delivery Method Room Air 06/27/23 14:24 Temperature 98.4 F 06/27/23 14:24 Pulse Rate 67 06/27/23 14:24 Respiratory Rate 14 06/27/23 14:24 Blood Pressure 114/77 06/27/23 14:24 Pulse Oximetry 98 06/27/23 14:24 Oxygen Delivery Method Room Air 06/27/23 14:24 MDM - Chest Pain MDM Narrative Medical decision making narrative: 42-year-old male to the emergency department she complained of chest pain similar to past episodes. Vital stable, the patient is afebrile. EKG without evidence of ischemia. Laboratory data noted. No significant findings. Troponins negative ?2. He is low risk by heart score. He is perc negative. 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 He is currently wearing a Holter monitor for the same symptoms. I believe these represent panic attacks that he is having. He is prescribed hydroxyzine to see if this helps. Return lashes were discussed. All questions were answered. The patient was discharged home. Medical Records Data Attestation: I reviewed the patient's medical records. Lab Data Attestation: I reviewed the patient's lab results. Labs: Lab Results 06/27/23 06/27/23 06/27/23 Range/Units 14:00 14:40 16:45 WBC 6.9 (4.0-11.0) 10^3/uL RBC 4.54 L (4.70-6.10) 10^6/uL Hgb 13.7 L (14.0-18.0) g/dL Hct 40.5 L (42.0-54.0) % MCV 89.2 (80.0-94.0) fL MCH 30.2 (25.9-34.0) pg MCHC 33.8 (29.9-35.2) g/dL RDW 12.3 (11.0-15.0) % Plt Count 173 (150-450) 10^3/uL MPV 10.5 (9.5-13.5) fL Neut % (Auto) 69.5 (43.0-75.0) % Lymph % (Auto) 17.6 L (20.5-60.0) % [place] % (Auto) 8.7 (1.7-12.0) % Eos % (Auto) 3.1 (0.9-7.0) % Baso % (Auto) 0.7 (0.2-2.0) % Neut # (Auto) 4.8 (1.4-6.5) 10^3/uL Lymph # (Auto) 1.2 (1.2-3.8) 10^3/uL [place] # (Auto) 0.6 (0.3-0.8) 10^3/uL Eos # (Auto) 0.2 (0.0-0.7) 10^3/uL Baso # (Auto) 0.1 (0.0-0.1) 10^3/uL Abs Immat Gran (auto) 0.03 (0.00-0.03) 10^3/uL Imm/Tot Granulo (auto) 0.4 (0.0-0.5) % PT 10.8 (9.0-11.6) sec INR 1.02 APTT 30.8 (22.3-36.2) sec Sodium 139 (136-145) mmol/L Potassium 4.5 (3.5-5.1) mmol/L Chloride 103 (98-107) mmol/L Carbon Dioxide 30.2 (21.0-32.0) mmol/L Anion Gap 10.3 BUN 17.0 (7.0-18.0) mg/dL Creatinine 1.22 (0.70-1.30) mg/dL Est GFR ( Amer) >60 (>=60) Est GFR (Non-Af Amer) >60 (>=60) BUN/Creatinine Ratio 13.9 Glucose 91 (74-106) mg/dL Calcium 9.9 (8.5-10.1) mg/dL Total Bilirubin 0.4 (0.2-1.0) mg/dL AST 29 (15-37) U/L ALT 46 (16-63) U/L Alkaline Phosphatase 85 (46-116) U/L Troponin I High Sens <4.0 L <4.0 L (4.0-76.1) pg/mL Total Protein 7.1 (6.4-8.2) g/dL Albumin 3.9 (3.4-5.0) g/dL Globulin 3.2 g/dL Albumin/Globulin Ratio 1.2 ECG Data Attestation: I personally reviewed and interpreted this ECG as follows: (No STEMI. Normal QTC. Sinus rhythm with PACs.) Heart Score History: Slightly/Non-Suspicious ECG: Normal Age: <45 years Risk Factors: 1 or 2 Risk Factors Troponin: <Normal Limit Total Heart Score Recommendations & Risks:: 1 Discharge Plan Discharge Chief Complaint: Chest Pain Clinical Impression: Chest pain Patient Disposition: Home, Self-Care Time of Disposition Decision: 17:33 Condition: Good Mode of Transportation: Private Vehicle Prescriptions / Home Meds: New hydroxyzine HCl 25 mg tablet 25 mg PO Q8H PRN (Reason: anxiety) Qty: 14 0RF No Action Eliquis 5 mg tablet 5 mg PO Q12H aspirin 81 mg tablet,delayed release (DR/EC) 81 mg PO DAILY citalopram 20 mg tablet 20 mg PO .QD Print Language: Gu[place] Instructions: Noncardiac Chest Pain (ED) Referrals: Jos Gardner MD [Primary Care Provider] - 1 week Discharge Date/Time: 06/27/23 17:57 Stand Alone Forms: Portal Instructions
== END 2023-06-27 17:57 | disposition home or self-care (01) ==
PROVIDERS: Emergency Provider Student in an Organized Health Care Education/Training Program; PCP Family Medicine
DX: R07.9 Chest pain, unspecified (principal); Z79.01 Long term (current) use of anticoagulants; Z79.82 Long term (current) use of aspirin
CPT/HCPCS: 36415; 71046; 80053; 84484; 85025; 85610; 85730; 93005; 99285

== ENCOUNTER 2023-07-04 06:17 | Outpatient (OUT) | payer OTHER, SELFPAY ==
--- NOTE | 2023-07-04 | PCN_ITS ---
CARDIAC STRESS TEST Requesting Physician: Jos Gardner M.D./Mitul Pitt NP Procedure Date: 07/04/2023 EXERCISE STRESS TEST The patient is undergoing stress test for chest pain and dyspnea on exertion. He underwent a Edi protocol exercise stress test with a nuclear perfusion study. His resting heart rate was 57 beats per minute and showed sinus rhythm with atrial bigeminy. The blood pressure at that time was 128/72 mm/Hg. He exercised for 12 minutes and 1 second, achieving 30.4 METS, reaching stage 4. Maximum heart rate reached at this time was 150 beats per minute, which is 85% of the predicted exercise heart rate. Target heart rate was, therefore, achieved and the peak blood pressure was 168/80 mm/Hg. There was no evidence of chronotropic incompetence, and heart rate recovery was normal and blood pressure response was normal. Patient did endure 2/10 chest pain that resolved within a minute, which is similar to the symptoms that he had experienced before. On reviewing the EKG, at stage 1, he was in sinus rhythm and with continued exercise there was good chronotropic response and no evidence of any ST segment changes suggestive of ischemia was noted. No AV block was seen. Occasional PVCs were seen in stress test. IMPRESSION: 1. No EKG evidence of ischemia noted on stress test. 2. No evidence of chronotropic incompetence. 3. Blood pressure response was normal. 4. Strickland treadmill score was between 5-10, which is medium level. 5. Nuclear perfusion study will be dictated separately by Radiology. [facility]
--- OUTSIDE RECORDS SUMMARY | 2023-07-04 06:21 | XMS_ITS | CCD ---
Author Name Unknown Address [address] [place] [address] Organization [facility] Care Team Providers Care Copy Technician Name Role Phone LATIA ., DR OSBORN Primary Care Unavailable HOY [...] Unavailable HOY ., DR OSBORN Admitting Unavailable OMARY ., DR OSBORN Primary Care Unavailable IRENA GARDNER M Primary Care Unavailable JUSTEN HAQUE Attending Unavailable SHADY BRYANT Admitting Unavailable CARDIOLOGY, [facility] Consulting Unavailable MAINE FERGUSON Attending Unavailable MAINE FERGUSON Referring Unavailable IRENA GARDNER Primary Care Unavailable JOHN MEEKS Attending Unavailable JOHN MEEKS Referring Unavailable IRENA GARDNER M Primary Care Unavailable Problems Active Problems Problem Classification Problem Date Documented Da te Episodic/Chronic Cardiac dysrhythmias (3 sources) Unspecified atrial fibrillation; Translations: [Other specified cardiac arrhythmias] Onset: 06-01-2023 Chronic Congestive heart failure; nonhypertensive (1 source) Unspecified [...] HEART DISEASE W/HEART FAIL] Onset: 09-01-2022 Chronic Nonspecific chest pain (2 sources) Chest pain Onset: 06-01-2023 Episodic Other upper respiratory infections (1 source) Chronic [...] Test Name Value Interpretation Reference Range Facility CBC AND AUTO DIFFon 06-02-19 24 ABSOLUTE BASOPHIL 0.1 X10E9/L Normal 0.0-0.2 [facility] Comment on above: Performed By: #### C BCA, CMP, 25479-7, PINR, 63347-0, 87657-6, 43519-2, 09408-0, THYR #### [facility] ([id number]) [address] [place] [address] 88468 ABSOLUTE NEUTROPHIL 3.9 X10E9/L Normal 1.5-6.6 [facility] Comment on above: Performed By: #### C BCA, CMP, 47181-7, PINR, 15289-2, 27485-2, 72305-0, 98249-9, THYR #### [facility] ([id number]) [address] [place] [address] 38074 Basophils/100 WBC (Bld) 0.8 % Normal [facility] Comment on above: Performed By: #### C BCA, CMP, 53009-9, PINR, 34348-7, 76098-2, 22747-3, 82286-1, THYR #### [facility] ([id number]) [address] [place] [address] 86202 Eosinophils (Bld) [#/Vol] 0.1 10*3/uL Normal 0.0-0.4 [facility] Comment on above: Performed By: #### C BCA, CMP, 59995-5, PINR, 38143-8, 96045-4, 64895-0, 35117-7, THYR #### [facility] ([id number]) [address] [place] [address] 36778 Eosinophils/100 WBC (Bld) 1.4 % Normal [facility] Comment on above: Performed By: #### C BCA, CMP, 11460-9, PINR, 80155-9, 14541-5, 09512-4, 48302-1, THYR #### [facility] ([id number]) [address] [place] [address] 98801 Erythrocyte distribution width (RBC) [Ratio] 13.2 % Normal 11.5-15.0 [facility] Comment on above: Performed By: #### C BCA, CMP, 21462-3, PINR, 03069-4, 30330-7, 39673-5, 64271-0, THYR #### [facility] ([id number]) [address] [place] [address] 33049 Hematocrit (Bld) [Volume fraction] 40.7 % Normal 39-49 [facility] Comment on above: Performed By: #### C BCA, CMP, 39211-3, PINR, 22286-7, 87765-7, 44437-2, 23333-6, THYR #### [facility] ([id number]) [address] [place] [address] 61828 Hemoglobin (Bld) [Mass/Vol] 14.2 g/dL Normal 13.0-17.0 [facility] Comment on above: Performed By: #### C BCA, CMP, 66217-8, PINR, 68092-2, 96815-3, 22532-7, 34449-3, THYR #### [facility] ([id number]) [address] [place] [address] 04974 Lymphocytes (Bld) [#/Vol] 2.2 10*3/uL Normal 1.0-3.5 [facility] Comment on above: Performed By: #### C BCA, CMP, 42401-7, PINR, 64695-8, 30786-4, 62390-9, 05985-6, THYR #### [facility] ([id number]) [address] [place] [address] 29721 Lymphocytes/100 WBC (Bld) 31.4 % Normal [facility] Comment on above: Performed By: #### C BCA, CMP, 05708-6, PINR, 91947-4, 02016-5, 46961-9, 23029-4, THYR #### [facility] ([id number]) [address] [place] [address] 64755 MCH (RBC) [Entitic mass] 30.7 pg Normal 27-34 [facility] Comment on above: Performed By: #### C BCA, CMP, 88569-3, PINR, 28243-2, 12314-7, 65300-1, 83212-6, THYR #### [facility] ([id number]) [address] [place] [address] 14113 MCHC (RBC) [Mass/Vol] 34.9 g/dL Normal 32-36 [facility] Comment on above: Performed By: #### C BCA, CMP, 41779-9, PINR, 94275-3, 80295-5, 72401-0, 54898-1, THYR #### [facility] ([id number]) [address] [place] [address] 66060 MCV (RBC) [Entitic vol] 88 fL Normal 80-100 [facility] Comment on above: Performed By: #### C BCA, CMP, 81105-4, PINR, 16902-3, 41427-6, 16948-9, 26821-5, THYR #### [facility] ([id number]) [address] [place] [address] 93493 Monocytes (Bld) [#/Vol] 0.7 10*3/uL Normal 0-0.9 [facility] Comment on above: Performed By: #### C BCA, CMP, 74929-9, PINR, 10219-5, 38156-0, 78619-6, 07919-8, THYR #### [facility] ([id number]) [address] [place] [address] 09403 Monocytes/100 WBC (Bld) 10.7 % Normal [facility] Comment on above: Performed By: #### C BCA, CMP, 41263-0, PINR, 58171-0, 97268-0, 32310-7, 57360-4, THYR #### [facility] ([id number]) [address] [place] [address] 85939 Neutrophils/100 WBC (Bld) 55.7 % Normal [facility] Comment on above: Performed By: #### C BCA, CMP, 32036-2, PINR, 08714-1, 57778-5, 95324-1, 72583-5, THYR #### [facility] ([id number]) [address] [place] [address] [place] [address] Platelet mean volume (Bld) [Entitic vol] 8.5 fL Normal 7-12 [facility] Comment on above: Performed By: #### C BCA, CMP, 14965-6, PINR, 76227-2, 08628-0, 44965-2, 08976-5, THYR #### [facility] ([id number]) [address] [place] [address] [place] [address] Platelets (Bld) [#/Vol] 192 10*3/uL Normal 150-450 [facility] Comment on above: Performed By: #### C BCA, CMP, 26363-9, PINR, 22712-6, 19210-5, 82400-5, 29644-0, THYR #### [facility] ([id number]) [address] [place] [address] [place] [address] RBC COUNT 4.61 X10E12/L Normal 4.10-5.70 [facility] Comment on above: Performed By: #### C BCA, CMP, 99014-8, PINR, 87999-6, 38976-3, 19478-9, 38239-1, THYR #### [facility] ([id number]) [address] [place] [address] 47547 WBC (Bld) [#/Vol] 7.0 10*3/uL Normal 4.0-11.0 [facility] Comment on above: Performed By: #### C BCA, CMP, 58054-3, PINR, 62063-6, 69534-4, 84823-0, 05905-4, THYR #### [facility] ([id number]) [address] [place] [address] 97286 COMPREHENSIVE METABOLIC PANE Nik 06-02-2023 Albumin [Mass/Vol] 4.2 g/dL Normal 3.2-5.3 [facility] Comment on above: Performed By: #### C BCA, CMP, 83426-4, PINR, 81420-8, 88707-3, 94123-9, 14638-2, THYR #### [facility] ([id number]) [address] [place] [address] [place] [address] ALP [Catalytic activity/Vol] 84 U/L Normal 39-130 [facility] Comment on above: Performed By: #### C BCA, CMP, 57394-8, PINR, 02710-0, 32633-3, 32244-8, 14169-0, THYR #### [facility] ([id number]) [address] [place] [address] 25814 ALT [Catalytic activity/Vol] 27 U/L Normal 0-40 [facility] Comment on above: Performed By: #### C BCA, CMP, 27104-8, PINR, 41317-6, 86978-3, 38452-7, 12441-7, THYR #### [facility] ([id number]) [address] [place] [address] 63787 Anion gap [Moles/Vol] 8 mmol/L Normal 5-15 [facility] Comment on above: Performed By: #### C BCA, CMP, 61757-7, PINR, 20197-1, 68008-7, 12996-8, 66681-5, THYR #### [facility] ([id number]) [address] [place] [address] 66020 AST [Catalytic activity/Vol] 22 U/L Normal 0-41 [facility] Comment on above: Performed By: #### C BCA, CMP, 43072-6, PINR, 09766-9, 04822-4, 45129-5, 32213-1, THYR #### [facility] ([id number]) [address] [place] [address] 93956 Bilirubin [Mass/Vol] 0.8 mg/dL Normal 0.3-1.2 [facility] Comment on above: Performed By: #### C BCA, CMP, 64546-1, PINR, 25953-5, 80901-8, 87425-9, 96507-8, THYR #### [facility] ([id number]) [address] [place] [address] 80588 Calcium [Mass/Vol] 10.0 mg/dL Normal 8.5-10.5 [facility] Comment on above: Performed By: #### C BCA, CMP, 86059-6, PINR, 74044-4, 55047-6, 16610-1, 47676-4, THYR #### [facility] ([id number]) [address] [place] [address] 12767 Chloride [Moles/Vol] 102 mmol/L Normal 98-109 [facility] Comment on above: Performed By: #### C BCA, CMP, 89935-0, PINR, 26718-8, 96404-8, 75626-8, 70026-1, THYR #### [facility] ([id number]) [address] [place] [address] 70729 CO2 [Moles/Vol] 26 mmol/L Normal 22-32 [facility] Comment on above: Performed By: #### C BCA, CMP, 23216-7, PINR, 38945-5, 32417-3, 35791-9, 45282-9, THYR #### [facility] ([id number]) [address] [place] [address] 90309 Creatinine [Mass/Vol] 1.07 mg/dL Normal 0.70-1.20 [facility] Comment on above: Result Comment: METH OD TRACEABLE TO IDMS STANDARD Performed By: #### C BCA, CMP, 86569-7, PINR, 18434-9, 73305-7, 06376-1, 09133-5, THYR #### [facility] ([id number]) [address] [place] [address] 42317 GFR/1.73 sq M.predicted among non-blacks MDRD (S/P/Bld) [Vol rate/Area] 88 mL/min/{1.73_m2} Normal >59 [facility] Comment on above: Result Comment: Reported eGFR is based on the CKD-EPI 2020 equation that does not use a race coefficient. Performed By: #### C BCA, CMP, 77976-1, PINR, 57681-2, 78614-9, 70372-7, 36885-9, THYR #### [facility] ([id number]) [address] [place] [address] 01872 Glucose [Mass/Vol] 94 mg/dL Normal 65-99 [facility] Comment on above: Performed By: #### C BCA, CMP, 22736-2, PINR, 48080-1, 40432-1, 09878-5, 33779-1, THYR #### [facility] ([id number]) [address] [place] [address] 13780 Potassium [Moles/Vol] 4.0 mmol/L Normal 3.5-5.0 [facility] Comment on above: Performed By: #### C BCA, CMP, 05898-6, PINR, 19946-0, 45918-9, 46545-7, 89234-5, THYR #### [facility] ([id number]) [address] [place] [address] 02138 Protein [Mass/Vol] 7.0 g/dL Normal 6.0-8.0 [facility] Comment on above: Performed By: #### C BCA, CMP, 53582-4, PINR, 50179-4, 34356-6, 44516-4, 42367-1, THYR #### [facility] ([id number]) [address] [place] [address] 01713 Sodium [Moles/Vol] 136 mmol/L Normal 134-146 [facility] Comment on above: Performed By: #### C BCA, CMP, 04701-6, PINR, 29960-9, 36982-8, 39957-9, 01707-7, THYR #### [facility] ([id number]) [address] [place] [address] 13255 Urea nitrogen [Mass/Vol] 20 mg/dL Normal 5-23 [facility] Comment on above: Performed By: #### C BCA, CMP, 66054-6, PINR, 62073-6, 40597-8, 17401-2, 30717-3, THYR #### [facility] ([id number]) [address] [place] [address] 30286 MAGNESIUMon 06-02-2023 Magnesium [Mass/Vol] 2.1 mg/dL Normal 1.8-2.6 [facility] Comment on above: Performed By: #### C BCA, CMP, 29897-1, PINR, 12123-4, 25622-5, 83265-7, 52732-3, THYR #### [facility] ([id number]) [address] [place] [address] 21298 TROPONIN Ion 06-02-2023 Troponin I.cardiac [Mass/Vol] ng/mL Normal 0.00-0.04 [facility] Comment on above: Performed By: #### C BCA, CMP, 99206-9, PINR, 04856-0, 27118-5, 44429-1, 53507-3, THYR #### [facility] ([id number]) [address] [place] [address] 15469 CBC AND AUTO DIFFon 06-01-19 24 ABSOLUTE BASOPHIL 0.1 X10E9/L Normal 0.0-0.2 [facility] Comment on above: Performed By: #### C BCA, CMP, 24624-3, PINR, 78182-0, 51704-8, 84040-7, 87941-1, THYR #### [facility] ([id number]) [address] [place] [address] 69497 ABSOLUTE NEUTROPHIL 5.1 X10E9/L Normal 1.5-6.6 [facility] Comment on above: Performed By: #### C BCA, CMP, 33717-1, PINR, 18107-2, 55629-4, 04204-3, 23615-7, THYR #### [facility] ([id number]) [address] [place] [address] 77407 Basophils/100 WBC (Bld) 0.8 % Normal [facility] Comment on above: Performed By: #### C BCA, CMP, 58049-6, PINR, 56318-1, 02359-7, 50506-6, 83889-7, THYR #### [facility] ([id number]) [address] [place] [address] 88022 Eosinophils (Bld) [#/Vol] 0.1 10*3/uL Normal 0.0-0.4 [facility] Comment on above: Performed By: #### C BCA, CMP, 86952-4, PINR, 14296-8, 78039-3, 47073-6, 76756-9, THYR #### [facility] ([id number]) [address] [place] [address] 00892 Eosinophils/100 WBC (Bld) 1.1 % Normal [facility] Comment on above: Performed By: #### C BCA, CMP, 70107-7, PINR, 84479-1, 41392-4, 61087-0, 84093-9, THYR #### [facility] ([id number]) [address] [place] [address] 74067 Erythrocyte distribution width (RBC) [Ratio] 13.0 % Normal 11.5-15.0 [facility] Comment on above: Performed By: #### C BCA, CMP, 28769-7, PINR, 14907-5, 76056-1, 92159-5, 59588-2, THYR #### [facility] ([id number]) [address] [place] [address] 63134 Hematocrit (Bld) [Volume fraction] 41.5 % Normal 39-49 [facility] Comment on above: Performed By: #### C BCA, CMP, 74631-3, PINR, 38926-0, 10481-3, 14377-2, 44022-8, THYR #### [facility] ([id number]) [address] [place] [address] 42144 Hemoglobin (Bld) [Mass/Vol] 14.6 g/dL Normal 13.0-17.0 [facility] Comment on above: Performed By: #### C BCA, CMP, 30955-6, PINR, 13875-1, 37921-9, 18522-4, 10083-6, THYR #### [facility] ([id number]) [address] [place] [address] 61213 Lymphocytes (Bld) [#/Vol] 1.7 10*3/uL Normal 1.0-3.5 [facility] Comment on above: Performed By: #### C BCA, CMP, 06778-7, PINR, 90182-7, 53453-1, 10920-6, 60689-7, THYR #### [facility] ([id number]) [address] [place] [address] 20439 Lymphocytes/100 WBC (Bld) 22.2 % Normal [facility] Comment on above: Performed By: #### C BCA, CMP, 08641-7, PINR, 44053-9, 49176-8, 18579-0, 09831-1, THYR #### [facility] ([id number]) [address] [place] [address] 12402 MCH (RBC) [Entitic mass] 30.4 pg Normal 27-34 [facility] Comment on above: Performed By: #### C BCA, CMP, 36199-4, PINR, 77787-0, 02922-0, 79729-2, 68378-8, THYR #### [facility] ([id number]) [address] [place] [address] 35291 MCHC (RBC) [Mass/Vol] 35.1 g/dL Normal 32-36 [facility] Comment on above: Performed By: #### C BCA, CMP, 14752-0, PINR, 71221-3, 01337-2, 80396-9, 95969-7, THYR #### [facility] ([id number]) [address] [place] [address] 50363 MCV (RBC) [Entitic vol] 87 fL Normal 80-100 [facility] Comment on above: Performed By: #### C BCA, CMP, 94145-4, PINR, 48314-0, 11251-4, 34335-2, 51360-5, THYR #### [facility] ([id number]) [address] [place] [address] 57683 Monocytes (Bld) [#/Vol] 0.6 10*3/uL Normal 0-0.9 [facility] Comment on above: Performed By: #### C BCA, CMP, 47511-0, PINR, 39813-1, 53616-3, 18975-7, 78569-9, THYR #### [facility] ([id number]) [address] [place] [address] 36746 Monocytes/100 WBC (Bld) 7.8 % Normal [facility] Comment on above: Performed By: #### C BCA, CMP, 54378-1, PINR, 22287-7, 64667-5, 41935-9, 45765-2, THYR #### [facility] ([id number]) [address] [place] [address] 98292 Neutrophils/100 WBC (Bld) 68.1 % Normal [facility] Comment on above: Performed By: #### C BCA, CMP, 71854-4, PINR, 00336-4, 70781-9, 88664-7, 83216-7, THYR #### [facility] ([id number]) [address] [place] [address] 64799 Platelet mean volume (Bld) [Entitic vol] 8.3 fL Normal 7-12 [facility] Comment on above: Performed By: #### C BCA, CMP, 32677-6, PINR, 19720-3, 22379-0, 40038-4, 76667-2, THYR #### [facility] ([id number]) [address] [place] [address] 20274 Platelets (Bld) [#/Vol] 207 10*3/uL Normal 150-450 [facility] Comment on above: Performed By: #### C BCA, CMP, 99208-0, PINR, 45840-5, 80057-6, 86848-3, 28987-8, THYR #### [facility] ([id number]) [address] [place] [address] 45655 RBC COUNT 4.79 X10E12/L Normal 4.10-5.70 [facility] Comment on above: Performed By: #### C BCA, CMP, 18100-7, PINR, 75135-4, 00855-8, 11614-2, 27631-1, THYR #### [facility] ([id number]) [address] [place] [address] 67898 WBC (Bld) [#/Vol] 7.5 10*3/uL Normal 4.0-11.0 [facility] Comment on above: Performed By: #### C BCA, CMP, 18770-8, PINR, 28336-0, 13707-7, 97609-7, 05962-8, THYR #### [facility] ([id number]) [address] [place] [address] 83156 COMPREHENSIVE METABOLIC PANE Nik 06-01-2023 Albumin [Mass/Vol] 5.0 g/dL Normal 3.2-5.3 [facility] Comment on above: Performed By: #### C BCA, CMP, 21602-3, PINR, 85748-4, 73452-6, 53724-3, 37386-0, THYR #### [facility] ([id number]) [address] [place] [address] 26375 ALP [Catalytic activity/Vol] 90 U/L Normal 39-130 [facility] Comment on above: Performed By: #### C BCA, CMP, 83410-8, PINR, 05483-9, 39222-8, 85664-0, 89632-6, THYR #### [facility] ([id number]) [address] [place] [address] 65787 ALT [Catalytic activity/Vol] 32 U/L Normal 0-40 [facility] Comment on above: Performed By: #### C BCA, CMP, 42102-3, PINR, 33468-3, 82562-6, 87321-4, 08732-4, THYR #### [facility] ([id number]) [address] [place] [address] 12730 Anion gap [Moles/Vol] 7 mmol/L Normal 5-15 [facility] Comment on above: Performed By: #### C BCA, CMP, 00007-4, PINR, 97670-5, 22963-4, 82123-5, 97116-5, THYR #### [facility] ([id number]) [address] [place] [address] 03941 AST [Catalytic activity/Vol] 27 U/L Normal 0-41 [facility] Comment on above: Performed By: #### C BCA, CMP, 73626-5, PINR, 52497-5, 90439-2, 79678-5, 43682-8, THYR #### [facility] ([id number]) [address] [place] [address] 16405 Bilirubin [Mass/Vol] 0.8 mg/dL Normal 0.3-1.2 [facility] Comment on above: Performed By: #### C BCA, CMP, 46847-0, PINR, 70700-3, 41884-4, 10170-4, 18875-8, THYR #### [facility] ([id number]) [address] [place] [address] 53999 Calcium [Mass/Vol] 10.1 mg/dL Normal 8.5-10.5 [facility] Comment on above: Performed By: #### C BCA, CMP, 21733-2, PINR, 69144-0, 09196-6, 19167-3, 34495-9, THYR #### [facility] ([id number]) [address] [place] [address] 79395 Chloride [Moles/Vol] 103 mmol/L Normal 98-109 [facility] Comment on above: Performed By: #### C BCA, CMP, 86249-4, PINR, 25419-2, 90216-0, 94919-0, 81566-6, THYR #### [facility] ([id number]) [address] [place] [address] 53366 CO2 [Moles/Vol] 24 mmol/L Normal 22-32 [facility] Comment on above: Performed By: #### C BCA, CMP, 87288-0, PINR, 83729-8, 12411-0, 88151-2, 49894-5, THYR #### [facility] ([id number]) [address] [place] [address] 43186 Creatinine [Mass/Vol] 1.18 mg/dL Normal 0.70-1.20 [facility] Comment on above: Result Comment: METH OD TRACEABLE TO IDMS STANDARD Performed By: #### C BCA, CMP, 85111-4, PINR, 42989-0, 42131-0, 05381-4, 99008-6, THYR #### [facility] ([id number]) [address] [place] [address] 84745 GFR/1.73 sq M.predicted among non-blacks MDRD (S/P/Bld) [Vol rate/Area] 78 mL/min/{1.73_m2} Normal >59 [facility] Comment on above: Result Comment: Reported eGFR is based on the CKD-EPI 2020 equation that does not use a race coefficient. Performed By: #### C BCA, CMP, 85678-8, PINR, 73024-4, 35978-2, 14969-5, 26944-2, THYR #### [facility] ([id number]) [address] [place] [address] 24273 Glucose [Mass/Vol] 86 mg/dL Normal 65-99 [facility] Comment on above: Performed By: #### C BCA, CMP, 57802-6, PINR, 86613-0, 83370-4, 31750-5, 92004-1, THYR #### [facility] ([id number]) [address] [place] [address] 77806 Potassium [Moles/Vol] 3.8 mmol/L Normal 3.5-5.0 [facility] Comment on above: Performed By: #### C BCA, CMP, 14303-7, PINR, 10992-6, 79180-9, 43373-6, 52972-1, THYR #### [facility] ([id number]) [address] [place] [address]0816 Protein [Mass/Vol] 7.8 g/dL Normal 6.0-8.0 [facility] Comment on above: Performed By: #### C BCA, CMP, 87786-3, PINR, 51229-6, 95235-2, 72041-2, 81590-4, THYR #### [facility] ([id number]) [address] [place] [address] 34874 Sodium [Moles/Vol] 134 mmol/L Normal 134-146 [facility] Comment on above: Performed By: #### C BCA, CMP, 16555-3, PINR, 90226-7, 68325-4, 72012-1, 74239-3, THYR #### [facility] ([id number]) [address] [place] [address] 10785 Urea nitrogen [Mass/Vol] 16 mg/dL Normal 5-23 [facility] Comment on above: Performed By: #### C BCA, CMP, 22377-9, PINR, 17834-2, 61379-6, 30838-4, 68237-8, THYR #### [facility] ([id number]) [address] [place] [address] 43300 DRUG SCREEN, URINEon 024 AMPHETAMINE/METHAMP Negative Normal NEG [facility] Comment on above: Result Comment: AMPH /METH screening cut off = 1000 ng/mL Performed By: #### C BCA, CMP, 87622-7, PINR, 02204-5, 52543-8, 30067-8, 92078-3, THYR #### [facility] ([id number]) [address] [place] [address] 11180 BARBITURATES Negative Normal NEG [facility] Comment on above: Result Comment: Yen iturates screening cut off value = 200 ng/mL Performed By: #### C BCA, CMP, 84595-8, PINR, 39694-7, 15172-2, 95902-8, 15025-5, THYR #### [facility] ([id number]) [address] [place] [address] 08523 BENZODIAZEPINES Negative Normal NEG [facility] Comment on above: Result Comment: Carlos odiazepines screening cut off value = 200 ng/mL Performed By: #### C BCA, CMP, 44585-7, PINR, 87124-7, 47389-5, 16358-4, 59172-6, THYR #### [facility] ([id number]) [address] [place] [address] 29489 CANNABINOIDS Negative Normal NEG [facility] Comment on above: Result Comment: Shirlene abinoids/THC screening cut off value = 50 ng/mL Performed By: #### C BCA, CMP, 09808-3, PINR, 51464-1, 57236-0, 87597-4, 85341-3, THYR #### [facility] ([id number]) [address] [place] [address] 05798 COCAINE METABOLITE Negative Normal NEG [facility] Comment on above: Result Comment: Coca ine screening cut off value = 300 ng/mL Performed By: #### C BCA, CMP, 32944-7, PINR, 75498-9, 67350-5, 27032-4, 54492-9, THYR #### [facility] ([id number]) [address] [place] [address] 34285 ECSTASY Negative Normal NEG [facility] Comment on above: Result Comment: Ecst asy screening cut off value = 500 ng/mL This report is intended for use in clinical monitoring or management of patients. Performed By: #### C BCA, CMP, 21632-1, PINR, 39723-3, 31303-1, 59208-3, 81335-9, THYR #### [facility] ([id number]) [address] [place] [address] [place] [address] METHADONE Negative Normal NEG [facility] Comment on above: Result Comment: Meth adone screening cut off value = 300 ng/mL. Performed By: #### C BCA, CMP, 67827-2, PINR, 14850-9, 81458-6, 19143-7, 69975-7, THYR #### [facility] ([id number]) [address] [place] [address] [place] [address] OPIATES Negative Normal NEG [facility] Comment on above: Result Comment: Opia yolande screening cut off value = 300 ng/mL NOTE: This test is used for the detection of codeine, hydrocodone (>1000 ng/mL), morphine and hydromorphone (>900 ng/mL) in urine. Performed By: #### C BCA, CMP, 78042-2, PINR, 86288-4, 98450-2, 23161-1, 44963-3, THYR #### [facility] ([id number]) [address] [place] [address] [place] [address] OXYCODONE Negative Normal NEG [facility] Comment on above: Result Comment: Oxyc odone screening cut off value = 300 ng/mL NOTE: This test is used for the detection of oxycodone and oxymorphone in urine. Performed By: #### C BCA, CMP, 36400-1, PINR, 70066-7, 28891-6, 48976-3, 39249-9, THYR #### [facility] ([id number]) [address] [place] [address] PHENCYCLIDINE Negative Normal NEG [facility] Comment on above: Result Comment: Phen cyclidine screening cut off value = 25 ng/mL Performed By: #### C BCA, CMP, 18481-3, PINR, 78594-4, 78580-6, 23290-1, 42966-3, THYR #### [facility] ([id number]) [address] [place] [address] Fibrin D-dimer DDU (PPP) [Ma ss/Vol]on 06-01-2023 D DIMER <150 Normal <255 [facility] Comment on above: Result Comment: Results <255 ng/mL DDU: The presence of a VTE can safely be excluded with a negative D-Dimer result and Wells score. A negative result doesn't exclude the possibility of DIC. The test be repeated along with other diagnostic tests if the patient's symptoms persist or worsen. [email or web address] Performed By: #### C BCA, CMP, 67932-5, PINR, 38168-3, 20611-0, 65026-6, 91129-7, THYR #### [facility] ([id number]) [address] [place] [address] Lead (BldV) [Mass/Vol]on LEAD, VENOUS 33.8 mcg/dL High <3.5 [facility] Comment on above: Result Comment: NOTE ADDITIONAL INFORMATION Testing performed by Inductively Coupled Plasma-Mass Spectrometry (ICP-MS). This test was developed and its performance characteristics determined by [facility] in a manner consistent with CLIA requirements. This test has not been cleared or approved by the U.S. Food and Drug Administration. Performed By: #### C BCA, CMP, 95696-7, PINR, 56207-6, 99292-8, 90761-1, 54330-1, THYR #### [facility] ([id number]) [address] [place] [address]185 MAGNESIUMon 06-01-2023 Magnesium [Mass/Vol] 2.1 mg/dL Normal 1.8-2.6 [facility] Comment on above: Performed By: #### C BCA, CMP, 86522-3, PINR, 47812-4, 44684-1, 96728-4, 46364-8, THYR #### [facility] ([id number]) [address] [place] [address]3744 Natriuretic peptide B [Mass/ Vol]on 06-01-2023 BRN NATRIURETIC PEP <5 Normal <100.0 [facility] Comment on above: Performed By: #### C BCA, CMP, 45733-6, PINR, 96856-0, 85535-5, 81974-4, 07910-0, THYR #### [facility] ([id number]) [address] [place] [address] 95836 PROTIME AND INRon 06-01-2023 INR Coag (PPP) [Relative time] 1.1 {INR} Normal 0.8-1.1 [facility] Comment on above: Performed By: #### C BCA, CMP, 87270-9, PINR, 11358-8, 27918-5, 11262-7, 85281-8, THYR #### [facility] ([id number]) [address] [place] [address]608 PT Coag (PPP) [Time] 12.6 s Normal 9.8-13.2 [facility] Comment on above: Result Comment: NEW REFERENCE RANGE Performed By: #### C BCA, CMP, 54492-0, PINR, 63918-5, 26700-1, 31704-0, 02399-3, THYR #### [facility] ([id number]) [address] [place] [address] 85639 THYROID PROFILEon 06-01-2023 Free T4 [Mass/Vol] 0.88 ng/dL Normal 0.61-1.60 [facility] Comment on above: Performed By: #### C BCA, CMP, 47482-1, PINR, 23446-7, 13167-7, 77603-2, 28055-0, THYR #### [facility] ([id number]) [address] [place] [address] 51382 TSH 1.27 uIU/mL Normal 0.49-4.67 [facility] Comment on above: Performed By: #### C BCA, CMP, 51757-6, PINR, 04281-5, 27254-6, 24742-7, 13131-8, THYR #### [facility] ([id number]) [address] [place] [address] 70886 TROPONIN Ion 06-01-2023 Troponin I.cardiac [Mass/Vol] ng/mL Normal 0.00-0.04 [facility] Comment on above: Performed By: #### C BCA, CMP, 32657-5, PINR, 61686-7, 80497-9, 52585-3, 35516-4, THYR #### [facility] ([id number]) [address] [place] [address] 11069 URN MACROSCOPIC NURon 2023 BILIRUBIN FITO Negative Normal NEG [facility] Comment on above: Performed By: #### C BCA, CMP, 98660-6, PINR, 44386-8, 20723-8, 36943-3, 63139-5, THYR #### [facility] ([id number]) [address] [place] [address] 31904 BLOOD/HGB FITO Negative Normal NEG [facility] Comment on above: Performed By: #### C BCA, CMP, 24694-9, PINR, 61627-5, 19373-2, 97811-8, 92549-4, THYR #### [facility] ([id number]) [address] [place] [address] 77682 GLUCOSE FITO Negative Normal NEG [facility] Comment on above: Performed By: #### C BCA, CMP, 63190-4, PINR, 57499-8, 25517-8, 17411-0, 04932-2, THYR #### [facility] ([id number]) [address] [place] [address] 57454 KETONES FITO 40 mg/dL Abnormal NEG [facility] Comment on above: Performed By: #### C BCA, CMP, 95194-5, PINR, 05584-8, 33199-7, 07520-9, 97112-8, THYR #### [facility] ([id number]) [address] [place] [address] [place] [address] LEUKOCYTE ESTERASE FITO Negative Normal NEG [facility] Comment on above: Performed By: #### C BCA, CMP, 88114-0, PINR, 38103-7, 45680-0, 79800-0, 77950-2, THYR #### [facility] ([id number]) [address] [place] [address] 65439 NITRITE FITO Negative Normal NEG [facility] Comment on above: Performed By: #### C BCA, CMP, 57533-0, PINR, 01360-0, 72918-4, 50588-1, 17104-8, THYR #### [facility] ([id number]) [address] [place] [address] 66942 PH FITO 5.5 Normal 5.0-8.5 [facility] Comment on above: Performed By: #### C BCA, CMP, 86044-8, PINR, 47784-1, 90004-8, 57667-4, 63216-3, THYR #### [facility] ([id number]) [address] [place] [address] PROTEIN FITO Negative Normal NEG [facility] Comment on above: Performed By: #### C BCA, CMP, 63342-2, PINR, 51613-9, 03142-6, 48788-4, 41291-0, THYR #### [facility] ([id number]) [address] [place] [address] SPECIFIC GRAVITY FITO 1.025 Normal 1.003-1.[address] [facility] Comment on above: Performed By: #### C BCA, CMP, 36430-3, PINR, 81486-9, 51076-0, 11981-0, 11910-3, THYR #### [facility] ([id number]) [address] [place] [address] UROBILINOGEN FITO 0.2 eu/dL Normal <1.[address] [facility] Comment on above: Performed By: #### C BCA, CMP, 43946-3, PINR, 73250-1, 64830-8, 88867-2, 59897-3, THYR #### [facility] ([id number]) [address] [place] [address] 46784 XR CHEST 1 VWon 06-01-2023 XR CHEST 1 VW XR CHEST 1 VW History: chest pain Exam/Technique: AP view of the chest. XR CHEST 1 VW Comparison: None Findings: Heart and mediastinal within normal limits. No evidence of pneumonia, effusion or acute pulmonary pathology. Faint nodular density right upper and right medial lung base statistically most likely granulomas. Bony structures appear age compatible. IMPRESSION: * No acute findings. Small subcentimeter nodule right upper and right lower lung statistically likely granulomatous. Chest CT could be obtained for confirmation. Finalized by Edi Pardo DO on 06/01/2023 3:32 PM Normal [facility] aPTT Coag (PPP) [Time]on aPTT Coag (Bld) [Time] 35 s Normal 26-37 [facility] Comment on above: Result Comment: NEW REFERENCE RANGE Performed By: #### C BCA, CMP, 78160-8, PINR, 24819-2, 28727-5, 45818-1, 75800-5, THYR #### [facility] ([id number]) [address] [place] [address], [place] [address] LEAD,ADULTon 09-05-2022 Lead, Blood (Adult) 45.4 ug/dL Invalid Interpretation Code 0.0-3.4 [facility] Comment on above: Result Comment: Test ing performed by Inductively coupled plasma/Mass Spectrometry. Verified by repeat analysis Analysis by inductively coupled plasma/mass spectrometry (ICP/MS) Environmental Exposure: WHO Recommendation <20.0 Occupational Exposure: OSHA Lead Std 40.0 CHAZ 30.0 . Detection Limit = 1.0 Performed By: #### L EADA #### [facility] [address] [place] [address] Dr. Rachel Cortez LEAD,ADULTon 09-01-2022 Lead, Blood (Adult) CLOTWB Normal [facility] Comment on above: Result Comment: Test not performed. Whole blood specimen partially or completely clotted. A common cause is insufficient mixing upon collection. Testing performed by Inductively coupled plasma/Mass Spectrometry. contacted Nohelia at your facility on 09-01-2022 Environmental Exposure: WHO Recommendation <20.0 Occupational Exposure: OSHA Lead Std 40.0 CHAZ 30.0 . Detection Limit = 1.0 Performed By: #### I NSULIN #### [facility] [address] [place] [address] Dr. Rachel Cortez LEAD,ADULTon 08-30-2022 Lead, Blood (Adult) CLOTWB Normal [facility] Comment on above: Result Comment: Test not performed. Whole blood specimen partially or completely clotted. A common cause is insufficient mixing upon collection. Testing performed by Inductively coupled plasma/Mass Spectrometry. contacted Taya at your facility on 08-30-2022 Environmental Exposure: WHO Recommendation <20.0 Occupational Exposure: OSHA Lead Std 40.0 CHAZ 30.0 . Detection Limit = 1.0 Performed By: #### L EADA #### [facility] [address] [place] [address] Dr. Rachel Cortez BNPon 08-29-2022 Natriuretic peptide B (Bld) [Mass/Vol] 10.0 pg/mL Normal <=450.0 [facility] Comment on above: Performed By: #### C MP, TSH, BNP #### [facility] [address] [place] [address] Dr. Rachel Cortez CBC AUTO DIFFon 08-29-2022 BASO # 0.0 103/ul Normal 0.0-0.1 [facility] Comment on above: Performed By: #### C BC #### [facility] [address] [place] [address] Dr. Rachel Cortez Basophils/100 WBC (Bld) 0.5 % Normal 0.2-2.0 [facility] Comment on above: Performed By: #### C BC #### [facility] [address] [place] [address] Dr. Rachel Cortez EO # 0.2 103/ul Normal 0.0-0.7 [facility] Comment on above: Performed By: #### C BC #### [facility] [address] [place] [address] Dr. Rachel Cortez Eosinophils/100 WBC (Bld) 2.7 % Normal 0.9-7.0 [facility] Comment on above: Performed By: #### C BC #### [facility] [address] [place] [address] Dr. Rachel Cortez Erythrocyte distribution width (RBC) [Ratio] 12.3 % Normal 11.0-15.0 [facility] Comment on above: Performed By: #### C BC #### [facility] [address] [place] [address] Dr. Rachel Cortez Hematocrit (Bld) [Volume fraction] 40.9 % Critically low 42.0-54.0 [facility] Comment on above: Performed By: #### C BC #### [facility] [address] [place] [address] Dr. Rachel Cortez Hemoglobin (Bld) [Mass/Vol] 13.9 g/dL Critically low 14.0-18.0 [facility] Comment on above: Performed By: #### C BC #### [facility] [address] [place] [address] Dr. Rachel Cortez IG # 0.02 10e3/ul Normal 0.00-0.03 [facility] Comment on above: Performed By: #### C BC #### [facility] [address] [place] [address] Dr. Rachel Cortez IG % 0.3 % Normal 0.0-0.5 [facility] Comment on above: Performed By: #### C BC #### [facility] [address] [place] [address] Dr. Rachel Cortez LYMPH # 1.6 103/ul Normal 1.2-3.8 [facility] Comment on above: Performed By: #### C BC #### [facility] [address] [place] [address] Dr. Rachel Cortez Lymphocytes/100 WBC (Bld) 21.2 % Normal 20.5-60.0 [facility] Comment on above: Performed By: #### C BC #### [facility] [address] [place] [address] Dr. Rachel Cortez MANUAL DIFF REQ NO Normal [facility] Comment on above: Performed By: #### C BC #### [facility] [address] [place] [address] Dr. Rachel Cortez MCH (RBC) [Entitic mass] 30.3 pg Normal 25.9-34.0 [facility] Comment on above: Performed By: #### C BC #### [facility] [address] [place] [address] Dr. Rachel Cortez MCHC (RBC) [Mass/Vol] 34.0 g/dL Normal 29.9-35.2 [facility] Comment on above: Performed By: #### C BC #### [facility] [address] [place] [address] Dr. Rachel Cortez MCV (RBC) [Entitic vol] 89.3 fL Normal 80.0-94.0 [facility] Comment on above: Performed By: #### C BC #### [facility] [address] [place] [address] Dr. Rachel Cortez MONO # 0.6 103/ul Normal 0.3-0.8 [facility] Comment on above: Performed By: #### C BC #### [facility] [address] [place] [address] Dr. Rachel Cortez Monocytes/100 WBC (Bld) 8.6 % Normal 1.7-12.0 [facility] Comment on above: Performed By: #### C BC #### [facility] [address] [place] [address] Dr. Rachel Cortez NEUT # 5.0 103/ul Normal 1.4-6.5 [facility] Comment on above: Performed By: #### C BC #### [facility] [address] [place] [address] Dr. Rachel Cortez Neutrophils/100 WBC (Bld) 66.7 % Normal 43.0-75.0 [facility] Comment on above: Performed By: #### C BC #### [facility] [address] [place] [address] Dr. Rachel Cortez Platelet mean volume (Bld) [Entitic vol] 10.2 fL Normal 9.5-13.5 [facility] Comment on above: Performed By: #### C BC #### [facility] [address] [place] [address] Dr. Rachel Cortez PLT 198 103/ul Normal 150-450 [facility] Comment on above: Performed By: #### C BC #### [facility] [address] [place] [address] Dr. Rachel Cortez RBC 4.58 106/ul Critically low 4.70-6.10 [facility] Comment on above: Performed By: #### C BC #### [facility] [address] [place] [address] Dr. Rachel Cortez WBC 7.5 103/ul Normal 4.0-11.0 [facility] Comment on above: Performed By: #### C BC #### [facility] [address] [place] [address] Dr. Rachel Cortez FREE T4on 08-29-2022 Free T4 [Mass/Vol] 0.84 ng/dL Normal 0.76-1.46 [facility] Comment on above: Performed By: #### I KANDIS FT4 #### [facility] [address] [place] [address] Dr. Rachel Cortez IRONon 08-29-2022 Iron [Mass/Vol] 86.0 ug/dL Normal 65.0-175.0 [facility] Comment on above: Performed By: #### I KANDIS FT4 #### [facility] [address] [place] [address] Dr. Rachel Cortez PROF 14(COMP METB)on 023 Albumin [Mass/Vol] 4.0 g/dL Normal 3.4-5.0 [facility] Comment on above: Performed By: #### C MP, TSH, BNP #### [facility] [address] [place] [address] Dr. Rachel Cortez Albumin/Globulin [Mass ratio] 1.2 {ratio} Normal [facility] Comment on above: Performed By: #### C MP, TSH, BNP #### [facility] [address] [place] [address] Dr. Rachel Cortez ALP [Catalytic activity/Vol] 103 U/L Normal 46-116 [facility] Comment on above: Performed By: #### C MP, TSH, BNP #### [facility] [address] [place] [address] Dr. Rachel Cortez ALT [Catalytic activity/Vol] 39 U/L Normal 16-63 [facility] Comment on above: Performed By: #### C MP, TSH, BNP #### [facility] [address] [place] [address] Dr. Rachel Cortez Anion gap [Moles/Vol] 10.2 mmol/L Normal [facility] Comment on above: Performed By: #### C MP, TSH, BNP #### [facility] [address] [place] [address] Dr. Rachel Cortez AST [Catalytic activity/Vol] 20 U/L Normal 15-37 [facility] Comment on above: Performed By: #### C MP, TSH, BNP #### [facility] [address] [address] [address] Rachel Cortez Bilirubin [Mass/Vol] 0.3 mg/dL Normal 0.2-1.0 [facility] Comment on above: Performed By: #### C MP, TSH, BNP #### [facility] [address] [place] [address] Dr. Rachel Cortez Calcium [Mass/Vol] 9.8 mg/dL Normal 8.5-10.1 [facility] Comment on above: Performed By: #### C MP, TSH, BNP #### [facility] [address] [place] [address] Dr. Rachel Cortez Chloride [Moles/Vol] 105 mmol/L Normal 98-107 [facility] Comment on above: Performed By: #### C MP, TSH, BNP #### [facility] [address] [place] [address] Dr. Rachel Cortez CO2 [Moles/Vol] 29.9 mmol/L Normal 21.0-32.0 [facility] Comment on above: Performed By: #### C MP, TSH, BNP #### [facility] [address] [place] [address] Dr. Rachel Cortez Creatinine [Mass/Vol] 1.19 mg/dL Normal 0.70-1.30 [facility] Comment on above: Performed By: #### C MP, TSH, BNP #### [facility] [address] [place] [address] Dr. Rachel Cortez EGFR-AF UKRAINIAN >60 Normal >=60 [facility] Comment on above: Performed By: #### C MP, TSH, BNP #### [facility] [address] [place] [address] Dr. Rachel Cortez EGFR-NON AF UKRAINIAN >60 Normal >=60 [facility] Comment on above: Performed By: #### C MP, TSH, BNP #### [facility] [address] [address] [address] Rachel Cortez Globulin (S) [Mass/Vol] 3.4 g/dL Normal [facility] Comment on above: Performed By: #### C MP, TSH, BNP #### [facility] [address] [address] [address] Rachel Cortez Glucose [Mass/Vol] 105 mg/dL Normal 74-106 [facility] Comment on above: Performed By: #### C MP, TSH, BNP #### [facility] [address] [place] [address] Dr. Rachel Cortez Potassium [Moles/Vol] 4.1 mmol/L Normal 3.5-5.1 [facility] Comment on above: Performed By: #### C MP, TSH, BNP #### [facility] [address] [place] [address] Dr. Rachel Cortez Protein [Mass/Vol] 7.4 g/dL Normal 6.4-8.2 [facility] Comment on above: Performed By: #### C MP, TSH, BNP #### [facility] [address] [place] [address] Dr. Rachel Cortez Sodium [Moles/Vol] 141 mmol/L Normal 136-145 [facility] Comment on above: Performed By: #### C MP, TSH, BNP #### [facility] [address] [place] [address] Dr. Rachel Cortez Urea nitrogen [Mass/Vol] 16.0 mg/dL Normal 7.0-18.0 [facility] Comment on above: Performed By: #### C MP, TSH, BNP #### [facility] [address] [place] [address] Dr. Rachel Cortez Urea nitrogen/Creatinine [Mass ratio] 13.4 mg/mg Normal [facility] Comment on above: Performed By: #### C MP, TSH, BNP #### [facility] [address] [place] [address] Dr. Rachel Cortez TSHon 08-29-2022 TSH 0.978 uIU/mL Normal 0.358-3.740 [facility] Comment on above: Performed By: #### I NSULIN #### [facility] [address] [address] [address] FACIAL BONES WO [...] WILFRID CAMARENA Date: 2022-08-11 18:30 Normal [facility] CT HEAD WO CONon 08-11-2022 CT HEAD [...] MARLYS MUNOZ Date: 2022-08-11 19:49 Normal [facility] INSULINon 05-09-2022 Insulin 9.9 uIU/mL Normal 2.6-24.9 [facility] Comment on above: Performed By: #### I NSULIN #### [facility] [address] [place] [address] Dr. Rachel Cortez CBC AUTO DIFFon 05-07-2022 BASO # 0.1 103/ul Normal 0.0-0.1 [facility] Comment on above: Performed By: #### I NSULIN #### [facility] [address] [place] [address] Dr. Rachel Cortez Basophils/100 WBC (Bld) 0.7 % Normal 0.2-2.0 [facility] Comment on above: Performed By: #### I NSULIN #### [facility] [address] [place] [address] Dr. Rachel Cortez EO # 0.0 103/ul Normal 0.0-0.7 [facility] Comment on above: Performed By: #### I NSULIN #### [facility] [address] [place] [address] Dr. Rachel Cortez Eosinophils/100 WBC (Bld) 0.1 % Critically low 0.9-7.0 [facility] Comment on above: Performed By: #### I NSULIN #### [facility] [address] [place] [address] Dr. Rachel Cortez Erythrocyte distribution width (RBC) [Ratio] 12.2 % Normal 11.0-15.0 [facility] Comment on above: Performed By: #### I NSULIN #### [facility] [address] [place] [address] Dr. Rachel Cortez Hematocrit (Bld) [Volume fraction] 41.1 % Critically low 42.0-54.0 [facility] Comment on above: Performed By: #### I NSULIN #### [facility] [address] [place] [address] Dr. Rachel Cortez Hemoglobin (Bld) [Mass/Vol] 14.1 g/dL Normal 14.0-18.0 [facility] Comment on above: Performed By: #### I NSULIN #### [facility] [address] [place] [address] Dr. Rachel Cortez IG # 0.03 10e3/ul Normal 0.00-0.03 [facility] Comment on above: Performed By: #### I NSULIN #### [facility] [address] [place] [address] Dr. Rachel Cortez IG % 0.4 % Normal 0.0-0.5 [facility] Comment on above: Performed By: #### I NSULIN #### [facility] [address] [place] [address] Dr. Rachel Cortez LYMPH # 2.3 103/ul Normal 1.2-3.8 [facility] Comment on above: Performed By: #### I NSULIN #### [facility] [address] [place] [address] Dr. Rachel Cortez Lymphocytes/100 WBC (Bld) 30.8 % Normal 20.5-60.0 [facility] Comment on above: Performed By: #### I NSULIN #### [facility] [address] [place] [address] Dr. Rachel Cortez MANUAL DIFF REQ NO Normal [facility] Comment on above: Performed By: #### I NSULIN #### [facility] [address] [place] [address] Dr. Rachel Cortez MCH (RBC) [Entitic mass] 29.9 pg Normal 25.9-34.0 [facility] Comment on above: Performed By: #### I NSULIN #### [facility] [address] [place] [address] Dr. Rachel Cortez MCHC (RBC) [Mass/Vol] 34.3 g/dL Normal 29.9-35.2 [facility] Comment on above: Performed By: #### I NSULIN #### [facility] [address] [place] [address] Dr. Rachel Cortez MCV (RBC) [Entitic vol] 87.3 fL Normal 80.0-94.0 [facility] Comment on above: Performed By: #### I NSULIN #### [facility] [address] [place] [address] Dr. Rachel Cortez MONO # 0.7 103/ul Normal 0.3-0.8 [facility] Comment on above: Performed By: #### I NSULIN #### [facility] [address] [place] [address] Dr. Rachel Cortez Monocytes/100 WBC (Bld) 8.9 % Normal 1.7-12.0 [facility] Comment on above: Performed By: #### I NSULIN #### [facility] [address] [place] [address] Dr. Rachel Cortez NEUT # 4.3 103/ul Normal 1.4-6.5 [facility] Comment on above: Performed By: #### I NSULIN #### [facility] [address] [place] [address] Dr. Rachel Cortez Neutrophils/100 WBC (Bld) 59.1 % Normal 43.0-75.0 [facility] Comment on above: Performed By: #### I NSULIN #### [facility] [address] [place] [address] Dr. Rachel Cortez Platelet mean volume (Bld) [Entitic vol] 9.9 fL Normal 9.5-13.5 [facility] Comment on above: Performed By: #### I NSULIN #### [facility] [address] [place] [address] Dr. Rachel Cortez PLT 184 103/ul Normal 150-450 [facility] Comment on above: Performed By: #### I NSULIN #### [facility] [address] [place] [address] Dr. Rachel Cortez RBC 4.71 106/ul Normal 4.70-6.10 [facility] Comment on above: Performed By: #### I NSULIN #### [facility] [address] [place] [address] Dr. Rachel Cortez WBC 7.3 103/ul Normal 4.0-11.0 [facility] Comment on above: Performed By: #### I NSULIN #### [facility] [address] [place] [address] Dr. Rachel Cortez CULTURE URINEon 05-07-2022 CULTURE URINE Culture Observations: LIGHT GROWTH OF MIXED SKIN NILES. NO POTENTIAL PATHOGENS SEEN. Normal [facility] Comment on above: Performed By: #### I NSULIN #### [facility] [address] [place] [address] Dr. Rachel Cortez FREE THYROXINE INDEX T7on FTI 2.07 Normal 1.30-4.50 [facility] Comment on above: Performed By: #### I NSULIN #### [facility] [address] [place] [address] Dr. Rachel Cortez T3U 35.0 % Normal 33.0-40.0 [facility] Comment on above: Performed By: #### I NSULIN #### [facility] [address] [place] [address] Dr. Rachel Cortez T4 [Mass/Vol] 5.90 ug/dL Normal 4.50-12.10 [facility] Comment on above: Performed By: #### I NSULIN #### [facility] [address] [place] [address] Dr. Rachel Cortez GLYCOHEMOGLOBIN A1Con 2022 ADA RECOMMENDATION SEE BELOW Normal [facility] Comment on above: Result Comment: ADA RECOMMENDED LIMIT 4.0 - 6.0 ADA THERAPEUTIC TARGET < 7.0 ACTION SUGGESTED > 7.0 Performed By: #### A 1C #### [facility] [address] [place] [address] Dr. Rachel Cortez Glucose [Mass/Vol] 100 mg/dL Normal [facility] Comment on above: Performed By: #### A 1C #### [facility] [address] [place] [address] Dr. Rachel Cortez HbA1c (Bld) [Mass fraction] 5.1 % Normal 4.5-6.2 [facility] Comment on above: Performed By: #### A 1C #### [facility] [address] [address] [address] Rachel Cortez IRONon 05-07-2022 Iron [Mass/Vol] 104.0 ug/dL Normal 65.0-175.0 [facility] Comment on above: Performed By: #### I NSULIN #### [facility] [address] [place] [address] Dr. Rachel Cortez LIPID PROFILEon 05-07-2022 CHOL-HDL RATIO NORM SEE BELOW Normal [facility] Comment on above: Result Comment: 3.3 - 4.4 LOW RISK 4.4 - 7.1 AVERAGE RISK 7.1 - 11.0 MODERATE RISK >11.0 HIGH RISK Performed By: #### C MP, LIPID #### [facility] [address] [place] [address] Dr. Rachel Cortez Cholesterol [Mass/Vol] 147 mg/dL Normal <=200 [facility] Comment on above: Performed By: #### C MP, LIPID #### [facility] [address] [place] [address] Dr. Rachel Cortez Cholesterol in HDL [Mass/Vol] 56 mg/dL Normal 40-60 [facility] Comment on above: Performed By: #### C MP, LIPID #### [facility] [address] [place] [address] Dr. Rachel Cortez Cholesterol in LDL [Mass/Vol] 77.8 mg/dL Normal [facility] Comment on above: Performed By: #### C MP, LIPID #### [facility] [address] [place] [address] Dr. Rachel Cortez Cholesterol.total/Ch olesterol in HDL [Mass ratio] 2.6 {ratio} Normal [facility] Comment on above: Performed By: #### C MP, LIPID #### [facility] [address] [place] [address] Dr. Rachel Cortez HDL NORMAL > or = 60 mg/dl - LOW CARDIOVASCULAR RISK <40 mg/dl - HIGH CARDIOVASCULAR RISK Normal [facility] Comment on above: Performed By: #### C MP, LIPID #### [facility] [address] [place] [address] Dr. Rachel Cortez LDL CALC NORMAL SEE BELOW Normal [facility] Comment on above: Result Comment: <100 mg/dl OPTIMAL 100 - 129 mg/dl NEAR OR ABOVE OPTIMAL 130 - 159 mg/dl BORDERLINE HIGH 160 - 189 mg/dl HIGH >190 mg/dl VERY HIGH Performed By: #### C MP, LIPID #### [facility] [address] [address] [address] Rachel Cortez Triglyceride [Mass/Vol] 66 mg/dL Normal <=150 [facility] Comment on above: Performed By: #### C MP, LIPID #### [facility] [address] [address] [address] Rachel Cortez VLDL CALC 13.2 mg/dL Normal [facility] Comment on above: Performed By: #### C MP, LIPID #### [facility] [address] [address] [address] Rachel Cortez PROF 14(COMP METB)on 023 Albumin [Mass/Vol] 4.0 g/dL Normal 3.4-5.0 [facility] Comment on above: Performed By: #### C MP, LIPID #### [facility] [address] [address] [address] Rachel Cortez Albumin/Globulin [Mass ratio] 1.3 {ratio} Normal [facility] Comment on above: Performed By: #### C MP, LIPID #### [facility] [address] [place] [address] Dr. Rachel Cortez ALP [Catalytic activity/Vol] 86 U/L Normal 46-116 [facility] Comment on above: Performed By: #### C MP, LIPID #### [facility] [address] [address] [address] Rachel Cortez ALT [Catalytic activity/Vol] 35 U/L Normal 16-63 [facility] Comment on above: Performed By: #### C MP, LIPID #### [facility] [address] [address] [address] Rachel Cortez Anion gap [Moles/Vol] 9.9 mmol/L Normal [facility] Comment on above: Performed By: #### C MP, LIPID #### [facility] [address] [address] [address] Rachel Cortez AST [Catalytic activity/Vol] 22 U/L Normal 15-37 [facility] Comment on above: Performed By: #### C MP, LIPID #### [facility] [address] [address] [address] Rachel Cortez Bilirubin [Mass/Vol] 0.4 mg/dL Normal 0.2-1.0 [facility] Comment on above: Performed By: #### C MP, LIPID #### [facility] [address] [address] [address] Rachel Cortez Calcium [Mass/Vol] 10.1 mg/dL Normal 8.5-10.1 [facility] Comment on above: Performed By: #### C MP, LIPID #### [facility] [address] [place] [address] Dr. Rachel Cortez Chloride [Moles/Vol] 107 mmol/L Normal 98-107 [facility] Comment on above: Performed By: #### C MP, LIPID #### [facility] [address] [place] [address] Dr. Rachel Cortez CO2 [Moles/Vol] 30.0 mmol/L Normal 21.0-32.0 [facility] Comment on above: Performed By: #### C MP, LIPID #### [facility] [address] [place] [address] Dr. Rachel Cortez Creatinine [Mass/Vol] 1.16 mg/dL Normal 0.70-1.30 [facility] Comment on above: Performed By: #### C MP, LIPID #### [facility] [address] [place] [address] Dr. Rachel Cortez EGFR-AF UKRAINIAN >60 Normal >=60 [facility] Comment on above: Performed By: #### C MP, LIPID #### [facility] [address] [place] [address] Dr. Rachel Cortez EGFR-NON AF UKRAINIAN >60 Normal >=60 [facility] Comment on above: Performed By: #### C MP, LIPID #### [facility] [address] [address] [address] Rachel Cortez Globulin (S) [Mass/Vol] 3.0 g/dL Normal [facility] Comment on above: Performed By: #### C MP, LIPID #### [facility] [address] [place] [address] Dr. Rachel Cortez Glucose [Mass/Vol] 88 mg/dL Normal 74-106 [facility] Comment on above: Performed By: #### C MP, LIPID #### [facility] [address] [place] [address] Dr. Rachel Cortez Potassium [Moles/Vol] 3.9 mmol/L Normal 3.5-5.1 [facility] Comment on above: Performed By: #### C MP, LIPID #### [facility] [address] [place] [address] Dr. Rachel Cortez Protein [Mass/Vol] 7.0 g/dL Normal 6.4-8.2 [facility] Comment on above: Performed By: #### C MP, LIPID #### [facility] [address] [place] [address] Dr. Rachel Cortez Sodium [Moles/Vol] 143 mmol/L Normal 136-145 [facility] Comment on above: Performed By: #### C MP, LIPID #### [facility] [address] [place] [address] Dr. Rachel Cortez Urea nitrogen [Mass/Vol] 16.0 mg/dL Normal 7.0-18.0 [facility] Comment on above: Performed By: #### C MP, LIPID #### [facility] [address] [place] [address] Dr. Rachel Cortez Urea nitrogen/Creatinine [Mass ratio] 13.8 mg/mg Normal [facility] Comment on above: Performed By: #### C MP, LIPID #### [facility] [address] [place] [address] Dr. Rachel Cortez TSHon 05-07-2022 TSH 2.417 uIU/mL Normal 0.358-3.740 [facility] Comment on above: Performed By: #### I NSULIN #### [facility] [address] [address] [address] Rachel Cortez UA RANDOM W/MICROSCOPICon BACTERIA NONE SEEN Normal NONE SEEN [facility] Comment on above: Performed By: #### I NSULIN #### [facility] [address] [place] [address] Dr. Rachel Cortez Bilirubin Ql (U) Negative Normal NEGATIVE [facility] Comment on above: Performed By: #### I NSULIN #### [facility] [address] [place] [address] Dr. Rachel Cortez CAST NONE SEEN Normal NONE SEEN [facility] Comment on above: Performed By: #### I NSULIN #### [facility] [address] [place] [address] Dr. Rachel Cortez Clarity (U) CLEAR Normal CLEAR [facility] Comment on above: Performed By: #### I NSULIN #### [facility] [address] [place] [address] Dr. Rachel Cortez Color (U) YELLOW Normal YELLOW [facility] Comment on above: Performed By: #### I NSULIN #### [facility] [address] [place] [address] Dr. Rachel Cortez Crystals LM Nom (Urine sed) NONE SEEN Normal NONE SEEN [facility] Comment on above: Performed By: #### I NSULIN #### [facility] [address] [place] [address] Dr. Rachel Cortez Epithelial cells LM Ql (Urine sed) NONE SEEN Normal NONE SEEN /RARE [facility] Comment on above: Performed By: #### I NSULIN #### [facility] [address] [place] [address] Dr. Rachel Cortez Glucose Ql (U) Negative Normal NEGATIVE [facility] Comment on above: Performed By: #### I NSULIN #### [facility] [address] [place] [address] Dr. Rachel Cortez Hemoglobin Ql (U) Negative Normal NEGATIVE [facility] Comment on above: Performed By: #### I NSULIN #### [facility] [address] [address] [address] Rachel Cortez Ketones Ql (U) Negative Normal NEGATIVE [facility] Comment on above: Performed By: #### I NSULIN #### [facility] [address] [place] [address] Dr. Rachel Cortez LEUKOCYTES Negative Normal NEGATIVE [facility] Comment on above: Performed By: #### I NSULIN #### [facility] [address] [place] [address] Dr. Rachel Cortez MUCOUS MODERATE Abnormal NONE SEEN [facility] Comment on above: Performed By: #### I NSULIN #### [facility] [address] [place] [address] Dr. Rachel Cortez Nitrite Ql (U) Negative Normal NEGATIVE [facility] Comment on above: Performed By: #### I NSULIN #### [facility] [address] [place] [address] Dr. Rachel Cortez pH (U) 6.0 [pH] Normal 5-9 [facility] Comment on above: Performed By: #### I NSULIN #### [facility] [address] [place] [address] Dr. Rachel Cortez RBC NONE SEEN Abnormal 0-2 [facility] Comment on above: Performed By: #### I NSULIN #### [facility] [address] [place] [address] Dr. Rachel Cortez SPEC GRAVITY 1.030 Abnormal 1.005-<=1.025 [facility] Comment on above: Performed By: #### I NSULIN #### [facility] [address] [place] [address] Dr. Rachel Cortez UA PROTEIN Negative Normal NEGATIVE/ TRACE [facility] Comment on above: Performed By: #### I NSULIN #### [facility] [address] [place] [address] Dr. Rachel Cortez Urobilinogen Qn (U) 1.0 {Colby'U}/dL Normal 0.2 - 1. 0 [facility] Comment on above: Performed By: #### I NSULIN #### [facility] [address] [place] [address] Dr. Rachel Cortez WBC NONE SEEN Normal NONE SEEN [facility] Comment on above: Performed By: #### I NSULIN #### [facility] [address] [address] [address] Rachel Cortez XR LSPINE MIN 4 [...] by: MARINA MAIN Date: 2022-05-06 16:40 Normal [facility] Coding Summary.on 03-31-2020 Coding Summary. CODING DATE: 03/31/2020 FINAL [facility] STATUS: Home (Routine DC) PAYOR: Self [...] Barajas Date Saved: 03/31/2020 08:22 am Normal [facility] Consent for Treatmenton Consent for Treatment [id number] #1.00CD:127 Normal [facility] Discharge Instructionson Discharge Instructions [id number] 6#1.00CD:127 Normal [facility] ED Clinical Summaryon 2019 ED Clinical Summary [place] [id number] ED Clinical Summary Person Information Name: YAMILET WHITAKER/New_Matt Age: 39 Years : 1980 Sex: Male Language: Estonian PCP: Irena Gardner MD Marital Status: Single Visit Id: Visit [...] 03/30/2020 14:05:58 03/30/2020 14:05:58 03/30/2020 14:05:58 ADDRESS: [address] [place] [id number] [facility] DOC NOTES: MEDICAL INFORMATION: Prescriptions Given: New Medications Printed Prescriptions acetaminophen-hydroc odone (Dawson 325 mg-5 mg oral tablet) 1 Tablets [...] Strain Follow up: With: Address: When: Irena Gardner [address] [place] [address], [place] [address] Business (1) In 3 days 04/02/2020 DIAGNOSIS: Lumbar strain Normal [facility] ED Note-Physicianon 03-30-20 ED Note-Physician Basic Information Time Seen: Darrick Gibbs PA-C 03/30/2020 11:47 Chief Complaint Pt. presents to the ed with c/o left lower back pain that started last night while laying in bed. Pt. took 4 ibuprofen DOWN FILLER. History of Present Illness 39-year-old male comes [...] EST, STAT, Start date 03/30/20 12:18:00 EST predniSONE, 60 mg = 3 tab(s), Oral, Daily, X 5 day(s), # 15 tab(s), Refills(s) 0 XR Spine Lumbosacral 2 or 3 Views Disposition Plan Patient Discharge Condition Disposition: Discharged home Condition: Improved and stable Counseled: Patient and/or family were counseled to workup, results, treatment plan and follow-up recommendations Discharge Prescription List Prescriptions Dawson 325 mg-5 mg oral tablet, 1 tab(s), Oral, q6hr, PRN predniSONE 20 mg Tab, 60 mg= 3 tab(s), Oral, Daily Robaxin-750 oral tablet, 1500 mg= 2 tab(s), Oral, TID Follow-up With When Contact Information Irena Gardner In 3 days 04/02/2020 [address] [id number] Business (1) Additional Instructions: Patient Education Lumbosacral Strain Attestation Patient seen and evaluated by the physician registered nurse first assistant. Attending physician was present in the emergency department and supervised care. This report was transcribed using voice recognition software. Every effort was made to ensure accuracy, however, inadvertently computerized automotive fuel injection servicer mistakes may be present. Appropriate healthcare PPE [...] oral syrup, 5 mL, Oral, QID, PRN Dawson 325 mg-5 mg oral tablet, 1 tab(s), [...] acute abnormality Read By: Darrick Gibbs PA-C [facility] Comment on above: Result Comment: Elec tronically [...] Document Reviewed: 11/27/2013 ExitCare? Patient Information ?2015 [email or web address], [employer]. This information is not intended to replace advice given to you by your health care provider. Make sure you discuss any questions you have with your health care provider. Normal [facility] ED Patient Summaryon 020 ED Patient Summary [address] [address] Patient Discharge Instructions Person Information Name: YAMILET WHITAKER Age: 39 Years Arrival Date: 03/30/2020 11:37:37 Discharge Diagnosis: Lumbar strain Primary Care Physician: Irena Gardner MD Provider Information Primary Provider: Shaun Tomlinson DO [employer] Agent:Darrick Gibbs PA-C The exam and treatment you received in the Emergency Department were for an urgent problem and are not intended as complete care. It is important that you follow up with a doctor, nurse practitioner, or physician?s registered nurse first assistant for ongoing care. If your symptoms become worse or you do not improve as expected and you are unable to reach your usual health care provider, you should return to the Emergency Department. We are available 24 hours a day. YAMILET WHITAKER has been given the following list of patient education materials, prescriptions and follow-up instructions: Follow-up Instructions: With: Address: When: Irena Turnermohinder [address] [place] [address], [place] [address] Business (1) In 3 days 04/02/2020 In the event that this physician does not participate in your insurance network, please consult with your insurance company to find a nearby participating provider. Patient Education Materials: Lumbosacral Strain A MESSAGE TO ALL PATIENTS REGARDING OPIOIDS PRESCRIPTION OPIOIDS: WHAT YOU NEED TO KNOW Prescription opioids can be used to help relieve cykiunah-wi-lthwog pain and are often prescribed following a [...] be struggling with addiction, tell your health day care assistant and ask for guidance or call SAMHSA?S National Helpline at 5-479-790-HELP. v Source: [place] Department of Health and Human Services/Center for Disease Control & Prevention [facility] Medications Given: Medication Dose Route orphenadrine 60.00 mg IntraMuscular Left Gluteus Medius acetaminophen-oxycod one 1.00 tab(s) Oral Medication Information: New Medications Printed Prescriptions acetaminophen-hydroc odone (Dawson 325 mg-5 mg oral tablet) 1 Tablets [...] Comment: Pharmacy Information: Thank you for choosing [facility] Patient Education Materials: Lumbosacral Strain Lumbosacral [...] Document Reviewed: 11/27/2013 ExitCare? Patient Information ?2015 [employer]. This information is not intended to replace advice given to you by your health care provider. Make sure you discuss any questions you have with your health care provider. JULIANNE Mitchell BRIAN S , have received the following patient education materials/instructio ns and have verbalized understanding: Patient Education Materials: Lumbosacral Strain Follow-up Instructions: With: Address: When: Irena Gardner [address] [place] [address], [place] [address] Business (1) In 3 days 04/02/2020 Patient Signature Date Clinician/Nurse Signature Date 03/30/2020 14:06:00 [facility] Prescriptions/Work Noteson 1 05-31-2019 Prescriptions/Work Notes [id number] 2#1.00CD:127 [facility] XR Spine Lumbosacral 2 or 3 Viewson [...] Nicholas Mullen M.D. Transcribed by: caleb Technologist: MIGUEL [facility] Encounters Encounter Date Encounter Type Care Provider Facility Start: 06-02-2023 End: 06-03-2023 ambulatory JOHN MEEKS [facility] Start: 06-01-2023 End: 06-03-2023 Emergency department patient visit MAINE FERGUSON [facility] Start: 06-01-2023 End: 06-02-2023 ambulatory IRENA GARDNER [facility] Start: 09-01-2022 End: 09-02-[address] IRENA GARDNER . Facility:[facility] Start: 08-30-2022 End: 08-31-[address] IRENA GARDNER . Facility:[facility] Start: 08-29-2022 End: 08-30-[address] IRENA GARDNER . Facility:[facility] Start: 08-11-2022 End: 08-11-2022 ambulatory BEV MILLS . Facility:[facility] Start: 05-07-2022 End: 05-08-[address] IRENA GARDNER . Facility:[facility] Start: 05-06-2022 End: 05-07-[address] IRENA GARDNER . Facility:[facility] Procedures Date Procedure Procedure Detail Performing Clinician Start: 05-07-[address] BERTA GARDNER . Comment on above: Performed By: #### L EADA #### [facility] [address] [place] [address] Dr. Rachel Cortez Payers Date Payer Category Payer Unknown [id number] .16.84 [id number] 1980 Unknown [id number] 2.16.84 [id number] 1980 Unknown [id number] 2.16.84 [id number] 1980 Unknown [id number] .16.84 [id number] 1978 Unknown [id number] .16.84 [id number] 1980 Unknown [id number] 2.16.84 [id number] 1980 Unknown [id number] 2.16.8 [id number] 1978 Unknown [id number] 2.16.8 [id number] 1980 Unknown [id number] 2.16.8 [id number] 1959 Unknown [id number] Summary Purpose Family History No Family History Records FoundNo Family History Records FoundNo Family History Records Found Advance Directives No Advanced Directives Records FoundNo Advanced Directives Records FoundNo Advanced Directives Records Found Additional Source Comments (unrecognized sect ion and content) No Status Records FoundNo Status Records FoundNo Status Records Found INFORMATION SOURCE (unrecogn ized section and content) DATE CREATED AUTHOR 03/31/2020 [facility] DATE CREATED AUTHOR AUTHOR'S ORGANIZ ATION 09/05/[address] [facility] DATE CREATED AUTHOR AUTHOR'S ORGANIZ ATION 06/05/[address] [facility] FOR RECORDS PERTAINING TO PATIENTS WHO ARE [...] BE BASED ON THE PRIMARY CLINICAL RECORDS. [employer] provides no warranty or guarantee of the accuracy or completeness of information in this document.
--- NOTE | 2023-07-04 06:25 | NM_ITS ---
Patient Name: YAMILET WHITAKER MR#: [id number] : 1980 Exam Date: 07/04/2023 Ordering Doctor: OLLIE POSADAS RADIOLOGY REPORT PROCEDURE: NM RADHA PERF SPECT REST STR COMPARISON: None. INDICATIONS: CHEST PAIN, ATRIAL FIBRILLATION TECHNIQUE: Exam Description: Stress/Rest one day protocol gated SPECT Rest Imagin.1 mCi Tc-99m Cardiolite IV on 07/04/2023 Stress Imaging 30.2 mCi Tc-99m Cardiolite IV on 07/04/2023 Exercise Protocol: Edi Heart Rate (bpm): Rest: 57 Max: 150 PMHR: 85 Blood Pressure: Rest: 128/72 Max: 168/80 Exercise Time: Minutes: 12 Seconds: 01 Stage Reached: Stage: 5 Mets 13.4 Symptoms: chest pain Rest and peak stress ECG findings were normal and the exercise portion of the study was normal per attending physician Dr. Dowling . For more details please see separate cardiac stress test report. FINDINGS: QUALITY OF STUDY: Excellent. PERFUSION DEFECT: None. LOCATION: N/A SIZE: N/A. SEVERITY: N/A. TYPE: N/A. WALL MOTION: Normal. LV SIZE: Normal. 98 mL. TID / TCD: None; 0.8 LVEF: Normal. Calculated EF 58%. SUMMARY: Myocardial perfusion imaging study is NORMAL. CONCLUSION: 1. Normal nuclear medicine myocardial perfusion scan. Dictated by: Martin Trevino M.D. on 07/05/2023 at 14:15 Approved by: Martin Trevino M.D. on 07/05/2023 at 14:20
== END 2023-07-04 06:18 | disposition home or self-care (01) ==
LOC: NM 06:19
PROVIDERS: PCP Family Medicine; Visit Provider Nurse Practitioner
DX: R07.9 Chest pain, unspecified (principal); R06.09 Other forms of dyspnea
CPT/HCPCS: 78452; 93017; A9500

== ENCOUNTER 2023-07-12 11:51 | Outpatient (OUT) | payer OTHER, SELFPAY ==
--- NOTE | 2023-07-12 11:56 | CT_ITS ---
The [address] [address] Patient Name: YAMILET WHITAKER MRN: [id number] date: 1980 Sex: M Assigned Patient Location: CT Current Patient Location: CT Accession/Order Number: [id number] Exam Date: 07/12/2023 12:53 Report Date: 07/12/2023 17:50 At the request of: IRENA JEFFERY Procedure: CT abdomen pelvis w con CT SCAN OF THE ABDOMEN AND PELVIS WITH CONTRAST, 07/12/2023 12:53 PM EDT COMPARISON: None. CLINICAL HISTORY: Left Lower Quadrant Pain R10.32 for a few months. TECHNIQUE: 3 mm axial images performed through the abdomen and pelvis following administration of 99 mL of intravenous Omnipaque 300. Delayed acquisitions performed through the pelvis. 3 mm coronal and sagittal MPR reconstruction performed through the abdomen and pelvis. Dose reduction techniques were achieved by using automated exposure control and/or adjustment of mA and/or kV according to patient size and/or use of iterative reconstruction technique. ABDOMINAL CT SCAN FINDINGS: Calcified granuloma in the right lower lobe. Tiny low-attenuation lesion in the posterior segment of the right hepatic lobe segment VII measuring 6 mm too small to fully characterize, likely corresponds to tiny cyst or hemangioma (image #10, series 3). Some calcified splenic granulomas. Remaining solid organs and gallbladder unremarkable in appearance. Pelvic CT findings: Prostate, seminal vesicles, and urinary bladder have a normal appearance. On delayed images there is normal partial contrast filling of the urinary bladder. Contrast is seen in the small bowel. Moderate amount of fecal matter in the colon. No bowel obstruction or abnormal bowel wall thickening. Appendix has a normal appearance. No acute osseous abnormality. CT/CT abdomen pelvis w con IMPRESSION: 1. No acute abnormality of the abdomen and pelvis identified. 2. Tiny low-attenuation lesion in the right hepatic lobe too small to fully characterize, likely corresponds to tiny cyst or hemangioma. 3. No bowel obstruction. Appendix is normal. Electronically authenticated by: Genaro BARRIOS Date: 07/12/2023 17:50
--- OUTSIDE RECORDS SUMMARY | 2023-07-12 12:11 | XMS_ITS | CCD ---
Author Organization [facility] Care Team Providers Care Hot Pipe Gauger Name Role Phone LATIA ., DR OSBORN [...] HOY ., DR OSBORN Primary Care Unavailable IRENA GARDNER Primary Care Unavailable JUSTEN HAQUE Attending Unavailable SHADY BRYANT Admitting Unavailable CARDIOLOGY, [facility] Consulting Unavailable MAINE FERGUSON Attending Unavailable MAINE FERGUSON Referring Unavailable IRENA GARDNER Primary Care Unavailable JOHN MEEKS Attending Unavailable JOHN MEEKS Referring Unavailable IRENA GARDNER Primary Care Unavailable Problems Active Problems Problem [...] Range Facility CBC AND AUTO DIFFon 06-02-19 ABSOLUTE BASOPHIL 0.1 X10E9/L Normal 0.0-0.2 [facility] Comment on above: Performed By: #### C BCA, CMP, 28838-0, PINR, 23023-9, 81840-8, 34574-9, 22835-0, THYR #### [facility] ([id number]) [address] [place] [address] 67343 ABSOLUTE NEUTROPHIL 3.9 X10E9/L Normal 1.5-6.6 [facility] Comment on above: Performed By: #### C BCA, CMP, 79766-4, PINR, 17454-9, 81917-5, 80507-7, 67502-1, THYR #### [facility] ([id number]) [address] [place] [address] 63816 Basophils/100 WBC (Bld) 0.8 % Normal [facility] Comment on above: Performed By: #### C BCA, CMP, 68894-2, PINR, 41749-4, 73046-1, 88916-5, 59593-9, THYR #### [facility] ([id number]) [address] [place] [address] 37767 Eosinophils (Bld) [#/Vol] 0.1 10*3/uL Normal 0.0-0.4 [facility] Comment on above: Performed By: #### C BCA, CMP, 17768-4, PINR, 61364-8, 54577-3, 18525-6, 68800-8, THYR #### [facility] ([id number]) [address] [place] [address] 19271 Eosinophils/100 WBC (Bld) 1.4 % Normal [facility] Comment on above: Performed By: #### C BCA, CMP, 90443-2, PINR, 31774-3, 03375-0, 56402-6, 21398-5, THYR #### [facility] ([id number]) [address] [place] [address] 41382 Erythrocyte distribution width (RBC) [Ratio] 13.2 % Normal 11.5-15.0 [facility] Comment on above: Performed By: #### C BCA, CMP, 10245-0, PINR, 05510-0, 46551-6, 34971-1, 54474-1, THYR #### [facility] ([id number]) [address] [place] [address] 50888 Hematocrit (Bld) [Volume fraction] 40.7 % Normal 39-49 [facility] Comment on above: Performed By: #### C BCA, CMP, 53771-4, PINR, 09010-3, 44906-8, 38119-8, 91040-6, THYR #### [facility] ([id number]) [address] [place] [address] 20829 Hemoglobin (Bld) [Mass/Vol] 14.2 g/dL Normal 13.0-17.0 [facility] Comment on above: Performed By: #### C BCA, CMP, 89598-4, PINR, 39097-3, 42413-0, 60331-5, 52042-3, THYR #### [facility] ([id number]) [address] [place] [address] 30439 Lymphocytes (Bld) [#/Vol] 2.2 10*3/uL Normal 1.0-3.5 [facility] Comment on above: Performed By: #### C BCA, CMP, 34303-6, PINR, 68027-9, 85712-0, 93840-2, 64608-5, THYR #### [facility] ([id number]) [address] [place] [address] 23309 Lymphocytes/100 WBC (Bld) 31.4 % Normal [facility] Comment on above: Performed By: #### C BCA, CMP, 56440-4, PINR, 67361-0, 69339-7, 18179-8, 42294-5, THYR #### [facility] ([id number]) [address] [place] [address] 01974 MCH (RBC) [Entitic mass] 30.7 pg Normal 27-34 [facility] Comment on above: Performed By: #### C BCA, CMP, 17434-7, PINR, 30211-3, 81210-7, 12610-4, 69235-1, THYR #### [facility] ([id number]) [address] [place] [address] 77983 MCHC (RBC) [Mass/Vol] 34.9 g/dL Normal 32-36 [facility] Comment on above: Performed By: #### C BCA, CMP, 97044-8, PINR, 70065-1, 48487-2, 60867-3, 03960-0, THYR #### [facility] ([id number]) [address] [place] [address] 49967 MCV (RBC) [Entitic vol] 88 fL Normal 80-100 [facility] Comment on above: Performed By: #### C BCA, CMP, 03223-1, PINR, 08669-4, 75491-4, 99366-6, 66227-3, THYR #### [facility] ([id number]) [address] [place] [address] 37275 Monocytes (Bld) [#/Vol] 0.7 10*3/uL Normal 0-0.9 [facility] Comment on above: Performed By: #### C BCA, CMP, 49389-4, PINR, 00778-9, 61049-4, 57339-5, 49713-1, THYR #### [facility] ([id number]) [address] [place] [address] 18590 Monocytes/100 WBC (Bld) 10.7 % Normal [facility] Comment on above: Performed By: #### C BCA, CMP, 51897-2, PINR, 66213-3, 85093-5, 87847-2, 93200-4, THYR #### [facility] ([id number]) [address] [place] [address] 80139 Neutrophils/100 WBC (Bld) 55.7 % Normal [facility] Comment on above: Performed By: #### C BCA, CMP, 70834-4, PINR, 66788-5, 76369-8, 50657-2, 93671-7, THYR #### [facility] ([id number]) [address] [place] [address] 49909 Platelet mean volume (Bld) [Entitic vol] 8.5 fL Normal 7-12 [facility] Comment on above: Performed By: #### C BCA, CMP, 36338-6, PINR, 11772-8, 06593-2, 46628-9, 45694-5, THYR #### [facility] ([id number]) [address] [place] [address] 25865 Platelets (Bld) [#/Vol] 192 10*3/uL Normal 150-450 [facility] Comment on above: Performed By: #### C BCA, CMP, 21848-7, PINR, 57541-3, 78087-4, 57890-6, 47221-1, THYR #### [facility] ([id number]) [address] [place] [address] 68235 RBC COUNT 4.61 X10E12/L Normal 4.10-5.70 [facility] Comment on above: Performed By: #### C BCA, CMP, 39634-4, PINR, 56428-6, 13396-8, 93684-2, 58234-0, THYR #### [facility] ([id number]) [address] [place] [address] 93743 WBC (Bld) [#/Vol] 7.0 10*3/uL Normal 4.0-11.0 [facility] Comment on above: Performed By: #### C BCA, CMP, 28876-5, PINR, 37351-1, 79905-9, 06043-2, 42462-6, THYR #### [facility] ([id number]) [address] [place] [address] 77183 COMPREHENSIVE METABOLIC PANE Nik 06-02-2023 Albumin [Mass/Vol] 4.2 g/dL Normal 3.2-5.3 [facility] Comment on above: Performed By: #### C BCA, CMP, 57635-3, PINR, 44105-0, 08570-5, 48687-3, 19791-6, THYR #### [facility] ([id number]) [address] [place] [address] 18403 ALP [Catalytic activity/Vol] 84 U/L Normal 39-130 [facility] Comment on above: Performed By: #### C BCA, CMP, 17515-4, PINR, 37679-5, 70753-2, 24247-5, 22147-5, THYR #### [facility] ([id number]) [address] [place] [address] 51534 ALT [Catalytic activity/Vol] 27 U/L Normal 0-40 [facility] Comment on above: Performed By: #### C BCA, CMP, 08534-5, PINR, 12240-7, 36345-3, 53704-6, 09807-0, THYR #### [facility] ([id number]) [address] [place] [address] 99962 Anion gap [Moles/Vol] 8 mmol/L Normal 5-15 [facility] Comment on above: Performed By: #### C BCA, CMP, 09390-0, PINR, 47340-1, 23656-4, 91775-5, 31179-3, THYR #### [facility] ([id number]) [address] [place] [address] 51654 AST [Catalytic activity/Vol] 22 U/L Normal 0-41 [facility] Comment on above: Performed By: #### C BCA, CMP, 47710-7, PINR, 12848-0, 51976-9, 40579-5, 52769-2, THYR #### [facility] ([id number]) [address] [place] [address] 44710 Bilirubin [Mass/Vol] 0.8 mg/dL Normal 0.3-1.2 [facility] Comment on above: Performed By: #### C BCA, CMP, 19154-7, PINR, 91147-0, 32601-4, 32240-8, 39091-6, THYR #### [facility] ([id number]) [address] [place] [address] 47034 Calcium [Mass/Vol] 10.0 mg/dL Normal 8.5-10.5 [facility] Comment on above: Performed By: #### C BCA, CMP, 99294-6, PINR, 95650-2, 79774-2, 73571-7, 76856-6, THYR #### [facility] ([id number]) [address] [place] [address] 30154 Chloride [Moles/Vol] 102 mmol/L Normal 98-109 [facility] Comment on above: Performed By: #### C BCA, CMP, 74788-4, PINR, 35205-7, 04184-6, 51843-0, 31920-8, THYR #### [facility] ([id number]) [address] [place] [address] 37760 CO2 [Moles/Vol] 26 mmol/L Normal 22-32 [facility] Comment on above: Performed By: #### C BCA, CMP, 13639-6, PINR, 33501-1, 80321-9, 92836-3, 64606-8, THYR #### [facility] ([id number]) [address] [place] [address] 42692 Creatinine [Mass/Vol] 1.07 mg/dL Normal 0.70-1.20 [facility] Comment on above: Result Comment: METH OD TRACEABLE TO IDMS STANDARD Performed By: #### C BCA, CMP, 16209-0, PINR, 35553-2, 87085-8, 04825-1, 34118-8, THYR #### [facility] ([id number]) [address] [place] [address] 31082 GFR/1.73 sq M.predicted among non-blacks MDRD (S/P/Bld) [Vol rate/Area] 88 mL/min/{1.73_m2} Normal >59 [facility] Comment on above: Result Comment: Reported eGFR is based on the CKD-EPI 2020 equation that does not use a race coefficient. Performed By: #### C BCA, CMP, 09865-3, PINR, 90810-2, 91333-3, 24823-0, 88221-9, THYR #### [facility] ([id number]) [address] [place] [address] 82941 Glucose [Mass/Vol] 94 mg/dL Normal 65-99 [facility] Comment on above: Performed By: #### C BCA, CMP, 19884-4, PINR, 17653-2, 81170-1, 40216-1, 16219-8, THYR #### [facility] ([id number]) [address] [place] [address] 39241 Potassium [Moles/Vol] 4.0 mmol/L Normal 3.5-5.0 [facility] Comment on above: Performed By: #### C BCA, CMP, 06856-6, PINR, 53964-2, 64148-7, 75312-5, 92571-8, THYR #### [facility] ([id number]) [address] [place] [address] 16238 Protein [Mass/Vol] 7.0 g/dL Normal 6.0-8.0 [facility] Comment on above: Performed By: #### C BCA, CMP, 60821-6, PINR, 56445-7, 01263-0, 63008-8, 25817-8, THYR #### [facility] ([id number]) [address] [place] [address] 69304 Sodium [Moles/Vol] 136 mmol/L Normal 134-146 [facility] Comment on above: Performed By: #### C BCA, CMP, 57183-5, PINR, 21536-5, 84459-8, 82926-3, 70632-1, THYR #### [facility] ([id number]) [address] [place] [address] 50780 Urea nitrogen [Mass/Vol] 20 mg/dL Normal 5-23 [facility] Comment on above: Performed By: #### C BCA, CMP, 05678-4, PINR, 68828-5, 05846-1, 83849-3, 08390-5, THYR #### [facility] ([id number]) [address] [place] [address] 05052 MAGNESIUMon 06-02-2023 Magnesium [Mass/Vol] 2.1 mg/dL Normal 1.8-2.6 [facility] Comment on above: Performed By: #### C BCA, CMP, 46482-3, PINR, 04569-2, 23427-8, 27849-7, 86549-7, THYR #### [facility] ([id number]) [address] [place] [address] 78067 TROPONIN Ion 06-02-2023 Troponin I.cardiac [Mass/Vol] ng/mL Normal 0.00-0.04 [facility] Comment on above: Performed By: #### C BCA, CMP, 52399-4, PINR, 11242-3, 30342-4, 91433-6, 28798-6, THYR #### [facility] ([id number]) [address] [place] [address] 65514 CBC AND AUTO DIFFon 06-01-19 24 ABSOLUTE BASOPHIL 0.1 X10E9/L Normal 0.0-0.2 [facility] Comment on above: Performed By: #### C BCA, CMP, 69062-0, PINR, 18144-6, 61870-1, 39861-0, 69611-6, THYR #### [facility] ([id number]) [address] [place] [address] 58888 ABSOLUTE NEUTROPHIL 5.1 X10E9/L Normal 1.5-6.6 [facility] Comment on above: Performed By: #### C BCA, CMP, 67257-3, PINR, 44445-6, 80410-5, 27449-5, 04875-3, THYR #### [facility] ([id number]) [address] [place] [address] 74549 Basophils/100 WBC (Bld) 0.8 % Normal [facility] Comment on above: Performed By: #### C BCA, CMP, 14516-4, PINR, 23177-6, 78365-4, 19533-2, 81180-2, THYR #### [facility] ([id number]) [address] [place] [address] 23208 Eosinophils (Bld) [#/Vol] 0.1 10*3/uL Normal 0.0-0.4 [facility] Comment on above: Performed By: #### C BCA, CMP, 74965-7, PINR, 83245-1, 52384-5, 26455-1, 02003-9, THYR #### [facility] ([id number]) [address] [place] [address] 88397 Eosinophils/100 WBC (Bld) 1.1 % Normal [facility] Comment on above: Performed By: #### C BCA, CMP, 54217-7, PINR, 82856-3, 85162-4, 70573-9, 13253-3, THYR #### [facility] ([id number]) [address] [place], [place] [address] Erythrocyte distribution width (RBC) [Ratio] 13.0 % Normal 11.5-15.0 [facility] Comment on above: Performed By: #### C BCA, CMP, 30607-2, PINR, 95699-9, 88190-5, 38468-2, 81473-1, THYR #### [facility] ([id number]) [address] [place] [address] 75616 Hematocrit (Bld) [Volume fraction] 41.5 % Normal 39-49 [facility] Comment on above: Performed By: #### C BCA, CMP, 42837-5, PINR, 43308-7, 66496-5, 94530-5, 29763-9, THYR #### [facility] ([id number]) [address] [place], [place] [address] Hemoglobin (Bld) [Mass/Vol] 14.6 g/dL Normal 13.0-17.0 [facility] Comment on above: Performed By: #### C BCA, CMP, 77927-1, PINR, 61846-6, 83573-6, 19349-2, 71582-9, THYR #### [facility] ([id number]) [address] [place], [place] [address] Lymphocytes (Bld) [#/Vol] 1.7 10*3/uL Normal 1.0-3.5 [facility] Comment on above: Performed By: #### C BCA, CMP, 30086-6, PINR, 42956-2, 97723-5, 12107-4, 58034-6, THYR #### [facility] ([id number]) [address] [place] [address] 85750 Lymphocytes/100 WBC (Bld) 22.2 % Normal [facility] Comment on above: Performed By: #### C BCA, CMP, 37223-8, PINR, 80766-7, 93003-1, 88277-0, 50117-3, THYR #### [facility] ([id number]) [address] [address] [place] [address] MCH (RBC) [Entitic mass] 30.4 pg Normal 27-34 [facility] Comment on above: Performed By: #### C BCA, CMP, 47551-9, PINR, 84901-5, 07828-7, 85921-6, 50224-1, THYR #### [facility] ([id number]) [address] [address] [place] [address] MCHC (RBC) [Mass/Vol] 35.1 g/dL Normal 32-36 [facility] Comment on above: Performed By: #### C BCA, CMP, 87818-7, PINR, 38240-1, 39943-6, 48083-1, 99341-7, THYR #### [facility] ([id number]) [address] [address] [place] [address] MCV (RBC) [Entitic vol] 87 fL Normal 80-100 [facility] Comment on above: Performed By: #### C BCA, CMP, 78770-5, PINR, 18114-3, 64836-4, 11877-6, 83088-0, THYR #### [facility] ([id number]) [address] [place] [address], [place] [address] Monocytes (Bld) [#/Vol] 0.6 10*3/uL Normal 0-0.9 [facility] Comment on above: Performed By: #### C BCA, CMP, 77186-6, PINR, 83507-2, 26803-1, 50452-5, 66545-7, THYR #### [facility] ([id number]) [address] [place] [address] 64859 Monocytes/100 WBC (Bld) 7.8 % Normal [facility] Comment on above: Performed By: #### C BCA, CMP, 65593-8, PINR, 94804-3, 54940-3, 99285-8, 05673-6, THYR #### [facility] ([id number]) [address] [place] [address] 27993 Neutrophils/100 WBC (Bld) 68.1 % Normal [facility] Comment on above: Performed By: #### C BCA, CMP, 69296-7, PINR, 69879-7, 48937-5, 31738-8, 06240-8, THYR #### [facility] ([id number]) [address] [place] [address] 08861 Platelet mean volume (Bld) [Entitic vol] 8.3 fL Normal 7-12 [facility] Comment on above: Performed By: #### C BCA, CMP, 59698-8, PINR, 20491-0, 44958-2, 38363-2, 41535-7, THYR #### [facility] ([id number]) [address] [place] [address] 71624 Platelets (Bld) [#/Vol] 207 10*3/uL Normal 150-450 [facility] Comment on above: Performed By: #### C BCA, CMP, 10091-2, PINR, 00385-7, 45838-3, 26295-2, 39497-9, THYR #### [facility] ([id number]) [address] [place] [address] 38288 RBC COUNT 4.79 X10E12/L Normal 4.10-5.70 [facility] Comment on above: Performed By: #### C BCA, CMP, 69789-1, PINR, 22403-4, 90879-8, 82273-1, 19094-0, THYR #### [facility] ([id number]) [address] [place] [address] 60748 WBC (Bld) [#/Vol] 7.5 10*3/uL Normal 4.0-11.0 [facility] Comment on above: Performed By: #### C BCA, CMP, 98644-7, PINR, 75032-7, 05662-8, 49973-6, 45476-9, THYR #### [facility] ([id number]) [address] [place] [address] 39497 COMPREHENSIVE METABOLIC PANE [facility] 06-01-2023 Albumin [Mass/Vol] 5.0 g/dL Normal 3.2-5.3 [facility] Comment on above: Performed By: #### C BCA, CMP, 51639-4, PINR, 09558-7, 77709-5, 26801-0, 96503-4, THYR #### [facility] ([id number]) [address] [place] [address] 51805 ALP [Catalytic activity/Vol] 90 U/L Normal 39-130 [facility] Comment on above: Performed By: #### C BCA, CMP, 78356-6, PINR, 01787-1, 49418-6, 95665-5, 12104-0, THYR #### [facility] ([id number]) [address] [place] [address] 08918 ALT [Catalytic activity/Vol] 32 U/L Normal 0-40 [facility] Comment on above: Performed By: #### C BCA, CMP, 83095-2, PINR, 94158-1, 80440-8, 44350-1, 75413-2, THYR #### [facility] ([id number]) [address] [place] [address] 15058 Anion gap [Moles/Vol] 7 mmol/L Normal 5-15 [facility] Comment on above: Performed By: #### C BCA, CMP, 76074-3, PINR, 38502-8, 46502-1, 29527-2, 16466-2, THYR #### [facility] ([id number]) [address] [place] [address] 29311 AST [Catalytic activity/Vol] 27 U/L Normal 0-41 [facility] Comment on above: Performed By: #### C BCA, CMP, 20183-3, PINR, 16714-6, 09878-8, 71146-5, 25552-3, THYR #### [facility] ([id number]) [address] [place] [address] 40054 Bilirubin [Mass/Vol] 0.8 mg/dL Normal 0.3-1.2 [facility] Comment on above: Performed By: #### C BCA, CMP, 17426-5, PINR, 50505-6, 49874-9, 42088-2, 46922-2, THYR #### [facility] ([id number]) [address] [place] [address] 04644 Calcium [Mass/Vol] 10.1 mg/dL Normal 8.5-10.5 [facility] Comment on above: Performed By: #### C BCA, CMP, 37336-1, PINR, 13541-7, 03556-2, 05458-3, 14772-4, THYR #### [facility] ([id number]) [address] [place] [address] 58189 Chloride [Moles/Vol] 103 mmol/L Normal 98-109 [facility] Comment on above: Performed By: #### C BCA, CMP, 84232-3, PINR, 60594-8, 62770-5, 48765-1, 15710-5, THYR #### [facility] ([id number]) [address] [place] [address] 50610 CO2 [Moles/Vol] 24 mmol/L Normal 22-32 [facility] Comment on above: Performed By: #### C BCA, CMP, 33020-5, PINR, 90609-8, 40738-5, 93352-6, 34470-7, THYR #### [facility] ([id number]) [address] [place] [address] 09716 Creatinine [Mass/Vol] 1.18 mg/dL Normal 0.70-1.20 [facility] Comment on above: Result Comment: METH OD TRACEABLE TO IDMS STANDARD Performed By: #### C BCA, CMP, 64212-1, PINR, 25318-1, 39350-4, 47357-5, 28142-9, THYR #### [facility] ([id number]) [address] [place] [address] 36455 GFR/1.73 sq M.predicted among non-blacks MDRD (S/P/Bld) [Vol rate/Area] 78 mL/min/{1.73_m2} Normal >59 [facility] Comment on above: Result Comment: Reported eGFR is based on the CKD-EPI 2020 equation that does not use a race coefficient. Performed By: #### C BCA, CMP, 53157-5, PINR, 39387-7, 38781-5, 32067-8, 73523-4, THYR #### [facility] ([id number]) [address] [address] [place] [address] Glucose [Mass/Vol] 86 mg/dL Normal 65-99 [facility] Comment on above: Performed By: #### C BCA, CMP, 99596-1, PINR, 69983-0, 20149-9, 40339-0, 40149-4, THYR #### [facility] ([id number]) [address] [place] [address] 95956 Potassium [Moles/Vol] 3.8 mmol/L Normal 3.5-5.0 [facility] Comment on above: Performed By: #### C BCA, CMP, 46602-9, PINR, 82598-7, 87510-9, 74847-3, 26270-2, THYR #### [facility] ([id number]) [address] [place] [address] 07566 Protein [Mass/Vol] 7.8 g/dL Normal 6.0-8.0 [facility] Comment on above: Performed By: #### C BCA, CMP, 44314-7, PINR, 89430-1, 65943-4, 73395-2, 75443-2, THYR #### [facility] ([id number]) [address] [place] [address]103 Sodium [Moles/Vol] 134 mmol/L Normal 134-146 [facility] Comment on above: Performed By: #### C BCA, CMP, 27893-3, PINR, 83284-4, 46345-8, 22505-2, 26079-5, THYR #### [facility] ([id number]) [address] [place] [address] 71907 Urea nitrogen [Mass/Vol] 16 mg/dL Normal 5-23 [facility] Comment on above: Performed By: #### C BCA, CMP, 57517-9, PINR, 99673-0, 47854-5, 93880-6, 49941-8, THYR #### [facility] ([id number]) [address] [place] [address]4987 DRUG SCREEN, URINEon 024 AMPHETAMINE/METHAMP Negative Normal NEG [facility] Comment on above: Result Comment: AMPH /METH screening cut off = 1000 ng/mL Performed By: #### C BCA, CMP, 39187-8, PINR, 26117-5, 12005-1, 11134-2, 23388-9, THYR #### [facility] ([id number]) [address] [place] [address] 11099 BARBITURATES Negative Normal NEG [facility] Comment on above: Result Comment: Yen iturates screening cut off value = 200 ng/mL Performed By: #### C BCA, CMP, 92596-2, PINR, 89590-4, 27552-1, 22680-5, 43198-5, THYR #### [facility] ([id number]) [address] [place] [address] 36633 BENZODIAZEPINES Negative Normal NEG [facility] Comment on above: Result Comment: Carlos odiazepines screening cut off value = 200 ng/mL Performed By: #### C BCA, CMP, 63633-0, PINR, 59648-3, 91066-1, 56046-5, 03745-2, THYR #### [facility] ([id number]) [address] [place] [address]123 CANNABINOIDS Negative Normal [facility] Comment on above: Result Comment: Shirlene abinoids/THC screening cut off value = 50 ng/mL Performed By: #### C BCA, CMP, 18348-9, PINR, 15543-6, 46033-5, 32006-3, 95887-9, THYR #### [facility] ([id number]) [address] [place] [address] 30197 COCAINE METABOLITE Negative Normal NEG [facility] Comment on above: Result Comment: Coca ine screening cut off value = 300 ng/mL Performed By: #### C BCA, CMP, 19831-9, PINR, 76848-6, 85857-7, 69998-8, 64127-0, THYR #### [facility] ([id number]) [address] [place] [address] 86568 ECSTASY Negative Normal NEG [facility] Comment on above: Result Comment: Ecst asy screening cut off value = 500 ng/mL This report is intended for use in clinical monitoring or management of patients. Performed By: #### C BCA, CMP, 52839-8, PINR, 58611-6, 32971-1, 98854-0, 30158-1, THYR #### [facility] ([id number]) [address] [address] [place] [address] METHADONE Negative Normal NEG [facility] Comment on above: Result Comment: Meth adone screening cut off value = 300 ng/mL. Performed By: #### C BCA, CMP, 98309-6, PINR, 48684-5, 13176-8, 63144-9, 32655-9, THYR #### [facility] ([id number]) [address] [place] [address] OPIATES Negative Normal NEG [facility] Comment on above: Result Comment: Opia yolande screening cut off value = 300 ng/mL NOTE: This test is used for the detection of codeine, hydrocodone (>1000 ng/mL), morphine and hydromorphone (>900 ng/mL) in urine. Performed By: #### C BCA, CMP, 75956-7, PINR, 69606-9, 37395-7, 68620-1, 82601-4, THYR #### [facility] ([id number]) [address] [address] [place] [address] OXYCODONE Negative Normal NEG [facility] Comment on above: Result Comment: Oxyc odone screening cut off value = 300 ng/mL NOTE: This test is used for the detection of oxycodone and oxymorphone in urine. Performed By: #### C BCA, CMP, 13722-0, PINR, 38029-0, 37493-0, 05483-8, 11166-8, THYR #### [facility] ([id number]) [address] [place] [address] PHENCYCLIDINE Negative Normal NEG [facility] Comment on above: Result Comment: Phen cyclidine screening cut off value = 25 ng/mL Performed By: #### C MERCEDES ERIK, 51058-5, PINR, 93418-3, 38331-6, 49758-4, 55960-8, THYR #### [facility] ([id number]) [address] [place] [address] Fibrin D-dimer DDU (PPP) [Ma ss/Vol]on 06-01-2023 D DIMER <150 Normal <255 [facility] Comment on above: Result Comment: Results <255 ng/mL DDU: The presence of a VTE can safely be excluded with a negative D-Dimer result and Wells score. A negative result doesn't exclude the possibility of DIC. The test be repeated along with other diagnostic tests if the patient's symptoms persist or worsen. [email or web address] Performed By: #### C MERCEDES ERIK, 13137-8, PINR, 58849-2, 13840-3, 24201-6, 45439-6, THYR #### [facility] ([id number]) [address] [place] [address] Lead (BldV) [Mass/Vol]on LEAD, VENOUS 33.8 mcg/dL High <3.5 [facility] Comment on above: Result Comment: NOTE ADDITIONAL INFORMATION Testing performed by Inductively Coupled Plasma-Mass Spectrometry (ICP-MS). This test was developed and its performance characteristics determined by [facility] in a manner consistent with CLIA requirements. This test has not been cleared or approved by the U.S. Food and Drug Administration. Performed By: #### C ERIK LONG, 56820-1, PINR, 50424-8, 99349-8, 79862-7, 79333-0, THYR #### [facility] ([id number]) [address] [address] [place] [address] MAGNESIUMon 06-01-2023 Magnesium [Mass/Vol] 2.1 mg/dL Normal 1.8-2.6 [facility] Comment on above: Performed By: #### C BCA, CMP, 34091-0, PINR, 78019-7, 53325-7, 50534-8, 55744-5, THYR #### [facility] ([id number]) [address] [place] [address]1651 Natriuretic peptide B [Mass/ Vol]on 06-01-2023 BRN NATRIURETIC PEP <5 Normal <100.0 [facility] Comment on above: Performed By: #### C BCA, CMP, 51302-3, PINR, 59438-2, 56933-8, 28318-1, 47978-7, THYR #### [facility] ([id number]) [address] [place] [address] 16745 PROTIME AND INRon 06-01-2023 INR Coag (PPP) [Relative time] 1.1 {INR} Normal 0.8-1.1 [facility] Comment on above: Performed By: #### C BCA, CMP, 57962-9, PINR, 67753-3, 88358-0, 17994-3, 20372-9, THYR #### [facility] ([id number]) [address] [place] [address] 99849 PT Coag (PPP) [Time] 12.6 s Normal 9.8-13.2 [facility] Comment on above: Result Comment: NEW REFERENCE RANGE Performed By: #### C BCA, CMP, 80355-9, PINR, 79720-6, 26051-3, 62090-0, 98515-3, THYR #### [facility] ([id number]) [address] [place] [address] 56145 THYROID PROFILEon 06-01-2023 Free T4 [Mass/Vol] 0.88 ng/dL Normal 0.61-1.60 [facility] Comment on above: Performed By: #### C BCA, CMP, 02152-0, PINR, 20959-0, 03764-2, 98681-8, 01159-9, THYR #### [facility] ([id number]) [address] [place] [address] 37709 TSH 1.27 uIU/mL Normal 0.49-4.67 [facility] Comment on above: Performed By: #### C BCA, CMP, 49906-5, PINR, 73957-0, 90806-2, 76960-1, 19370-6, THYR #### [facility] ([id number]) [address] [place] [address] 22448 TROPONIN Ion 06-01-2023 Troponin I.cardiac [Mass/Vol] ng/mL Normal 0.00-0.04 [facility] Comment on above: Performed By: #### C BCA, CMP, 18984-0, PINR, 03888-8, 90081-1, 66634-2, 88611-7, THYR #### [facility] ([id number]) [address] [place] [address] 75601 URN MACROSCOPIC NURon 2023 BILIRUBIN FITO Negative Normal NEG [facility] Comment on above: Performed By: #### C BCA, CMP, 07048-7, PINR, 36466-3, 12542-9, 21765-9, 03094-6, THYR #### [facility] ([id number]) [address] [place] [address] 32223 BLOOD/HGB FITO Negative Normal NEG [facility] Comment on above: Performed By: #### C BCA, CMP, 27283-5, PINR, 13397-7, 25738-7, 30923-4, 33646-5, THYR #### [facility] ([id number]) [address] [place] [address] 50191 GLUCOSE FITO Negative Normal NEG [facility] Comment on above: Performed By: #### C BCA, CMP, 11289-1, PINR, 35289-0, 31420-7, 18003-9, 67417-7, THYR #### [facility] ([id number]) [address] [place] [address] 79138 KETONES FITO 40 mg/dL Abnormal NEG [facility] Comment on above: Performed By: #### C BCA, CMP, 46831-6, PINR, 82934-7, 23422-2, 81985-3, 60285-9, THYR #### [facility] ([id number]) [address] [place] [address] 18964 LEUKOCYTE ESTERASE FITO Negative Normal NEG [facility] Comment on above: Performed By: #### C BCA, CMP, 73160-9, PINR, 47212-3, 00405-9, 78947-8, 43700-4, THYR #### [facility] ([id number]) [address] [place] [address] 29730 NITRITE FITO Negative Normal NEG [facility] Comment on above: Performed By: #### C BCA, CMP, 42427-9, PINR, 47976-4, 19209-0, 55866-0, 81279-3, THYR #### [facility] ([id number]) [address] [place] [address] 21509 PH FITO 5.5 Normal 5.0-8.5 [facility] Comment on above: Performed By: #### C BCA, CMP, 94292-8, PINR, 33301-4, 25116-3, 00339-9, 16894-0, THYR #### [facility] ([id number]) [address] [place] [address] 75893 PROTEIN FITO Negative Normal NEG [facility] Comment on above: Performed By: #### C BCA, CMP, 76084-5, PINR, 17080-4, 24347-0, 79519-4, 21401-7, THYR #### [facility] ([id number]) [address] [place] [address] 13841 SPECIFIC GRAVITY FITO 1.025 Normal 1.003-1.035 [facility] Comment on above: Performed By: #### C BCA, CMP, 76459-8, PINR, 87401-6, 95053-1, 89162-8, 28156-9, THYR #### [facility] ([id number]) [address] [place] [address] 37016 UROBILINOGEN FITO 0.2 eu/dL Normal <1.1 [facility] Comment on above: Performed By: #### C BCA, CMP, 92055-5, PINR, 03683-2, 33668-2, 02126-4, 38986-8, THYR #### [facility] ([id number]) [address] [place] [address] 12239 XR CHEST 1 VWon 06-01-2023 XR CHEST [...] Pardo DO on 06/01/2023 3:32 PM Normal [facility] aPTT Coag (PPP) [Time]on aPTT Coag (Bld) [Time] 35 s Normal 26-37 [facility] Comment on above: Result Comment: NEW REFERENCE RANGE Performed By: #### C BCA, CMP, 45269-8, PINR, 05286-9, 27328-9, 15530-7, 02225-6, THYR #### [facility] ([id number]) [address] [place] [address], [place] [address] LEAD,ADULTon 09-05-2022 Lead, Blood (Adult) 45.4 ug/dL Invalid Interpretation Code 0.0-3.4 [facility] Comment on above: Result Comment: Test ing performed by Inductively coupled plasma/Mass Spectrometry. Verified by repeat analysis Analysis by inductively coupled plasma/mass spectrometry (ICP/MS) Environmental Exposure: WHO Recommendation <20.0 Occupational Exposure: OSHA Lead Std 40.0 CHAZ 30.0 . Detection Limit = 1.0 Performed By: #### L EADA #### [facility] [address] [place] [address] Dr. Rachel Cortez LEAD,ADULTon 09-01-2022 Lead, Blood (Adult) CLOTWB Normal [facility] Comment on above: Result Comment: Test not performed. Whole blood specimen partially or completely clotted. A common cause is insufficient mixing upon collection. Testing performed by Inductively coupled plasma/Mass Spectrometry. contacted Nohelia at your facility on 09-01-2022 Environmental Exposure: WHO Recommendation <20.0 Occupational Exposure: OSHA Lead Std 40.0 CHAZ 30.0 . Detection Limit = 1.0 Performed By: #### I NSULIN #### [facility] [address] [place] [address] Dr. Rachel Cortez LEAD,ADULTon 08-30-2022 Lead, Blood (Adult) CLOTWB Normal [facility] Comment on above: Result Comment: Test not performed. Whole blood specimen partially or completely clotted. A common cause is insufficient mixing upon collection. Testing performed by Inductively coupled plasma/Mass Spectrometry. contacted Taya at your facility on 08-30-2022 Environmental Exposure: WHO Recommendation <20.0 Occupational Exposure: OSHA Lead Std 40.0 CHAZ 30.0 . Detection Limit = 1.0 Performed By: #### L EADA #### [facility] [address] [place] [address] Dr. Rachel Cortez BNPon 08-29-2022 Natriuretic peptide B (Bld) [Mass/Vol] 10.0 pg/mL Normal <=450.0 [facility] Comment on above: Performed By: #### C MP, TSH, BNP #### [facility] [address] [place] [address] Dr. Rachel Cortez CBC AUTO DIFFon 08-29-2022 BASO # 0.0 103/ul Normal 0.0-0.1 [facility] Comment on above: Performed By: #### C BC #### [facility] [address] [place] [address] Dr. Rachel Cortez Basophils/100 WBC (Bld) 0.5 % Normal 0.2-2.0 [facility] Comment on above: Performed By: #### C BC #### [facility] [address] [place] [address] Dr. Rachel Cortez EO # 0.2 103/ul Normal 0.0-0.7 [facility] Comment on above: Performed By: #### C BC #### [facility] [address] [place] [address] Dr. Rachel Cortez Eosinophils/100 WBC (Bld) 2.7 % Normal 0.9-7.0 [facility] Comment on above: Performed By: #### C BC #### [facility] [address] [place] [address] Dr. Rachel Cortez Erythrocyte distribution width (RBC) [Ratio] 12.3 % Normal 11.0-15.0 [facility] Comment on above: Performed By: #### C BC #### [facility] [address] [place] [address] Dr. Rachel Cortez Hematocrit (Bld) [Volume fraction] 40.9 % Critically low 42.0-54.0 [facility] Comment on above: Performed By: #### C BC #### [facility] [address] [place] [address] Dr. Rachel Cortez Hemoglobin (Bld) [Mass/Vol] 13.9 g/dL Critically low 14.0-18.0 [facility] Comment on above: Performed By: #### C BC #### [facility] [address] [place] [address] Dr. Rachel Cortez IG # 0.02 10e3/ul Normal 0.00-0.03 [facility] Comment on above: Performed By: #### C BC #### [facility] [address] [place] [address] Dr. Rachel Cortez IG % 0.3 % Normal 0.0-0.5 [facility] Comment on above: Performed By: #### C BC #### [facility] [address] [place] [address] Dr. Rachel Cortez LYMPH # 1.6 103/ul Normal 1.2-3.8 [facility] Comment on above: Performed By: #### C BC #### [facility] [address] [place] [address] Dr. Rachel Cortez Lymphocytes/100 WBC (Bld) 21.2 % Normal 20.5-60.0 [facility] Comment on above: Performed By: #### C BC #### [facility] [address] [place] [address] Dr. Rachel Cortez MANUAL DIFF REQ NO Normal [facility] Comment on above: Performed By: #### C BC #### [facility] [address] [place] [address] Dr. Rachel Cortez MCH (RBC) [Entitic mass] 30.3 pg Normal 25.9-34.0 [facility] Comment on above: Performed By: #### C BC #### [facility] [address] [place] [address] Dr. Rachel Cortez MCHC (RBC) [Mass/Vol] 34.0 g/dL Normal 29.9-35.2 [facility] Comment on above: Performed By: #### C BC #### [facility] [address] [place] [address] Dr. Rachel Cortez MCV (RBC) [Entitic vol] 89.3 fL Normal 80.0-94.0 [facility] Comment on above: Performed By: #### C BC #### [facility] [address] [address] [address] Rachel Cortez MONO # 0.6 103/ul Normal 0.3-0.8 [facility] Comment on above: Performed By: #### C BC #### [facility] [address] [address] [address] Rachel Cortez Monocytes/100 WBC (Bld) 8.6 % Normal 1.7-12.0 [facility] Comment on above: Performed By: #### C BC #### [facility] [address] [place] [address] Dr. Rachel Cortez NEUT # 5.0 103/ul Normal 1.4-6.5 [facility] Comment on above: Performed By: #### C BC #### [facility] [address] [place] [address] Dr. Rachel Cortez Neutrophils/100 WBC (Bld) 66.7 % Normal 43.0-75.0 [facility] Comment on above: Performed By: #### C BC #### [facility] [address] [place] [address] Dr. Rachel Cortez Platelet mean volume (Bld) [Entitic vol] 10.2 fL Normal 9.5-13.5 [facility] Comment on above: Performed By: #### C BC #### [facility] [address] [place] [address] Dr. Rachel Cortez PLT 198 103/ul Normal 150-450 [facility] Comment on above: Performed By: #### C BC #### [facility] [address] [place] [address] Dr. Rachel Cortez RBC 4.58 106/ul Critically low 4.70-6.10 [facility] Comment on above: Performed By: #### C BC #### [facility] [address] [place] [address] Dr. Rachel Cortez WBC 7.5 103/ul Normal 4.0-11.0 [facility] Comment on above: Performed By: #### C BC #### [facility] [address] [place] [address] Dr. Rachel Cortez FREE T4on 08-29-2022 Free T4 [Mass/Vol] 0.84 ng/dL Normal 0.76-1.46 [facility] Comment on above: Performed By: #### I KANDIS, FT4 #### [facility] [address] [place] [address] Dr. Rachel Cortez IRONon 08-29-2022 Iron [Mass/Vol] 86.0 ug/dL Normal 65.0-175.0 [facility] Comment on above: Performed By: #### I KANDIS FT4 #### [facility] [address] [place] [address] Dr. Rachel Cortez PROF 14(COMP METB)on 023 Albumin [Mass/Vol] 4.0 g/dL Normal 3.4-5.0 [facility] Comment on above: Performed By: #### C MP, TSH, BNP #### [facility] [address] [place] [address] Dr. Rachel Cortez Albumin/Globulin [Mass ratio] 1.2 {ratio} Normal [facility] Comment on above: Performed By: #### C MP, TSH, BNP #### [facility] [address] [place] [address] Dr. Rachel Cortez ALP [Catalytic activity/Vol] 103 U/L Normal 46-116 [facility] Comment on above: Performed By: #### C MP, TSH, BNP #### [facility] [address] [place] [address] Dr. Rachel Cortez ALT [Catalytic activity/Vol] 39 U/L Normal 16-63 [facility] Comment on above: Performed By: #### C MP, TSH, BNP #### [facility] [address] [place] [address] Dr. Rachel Cortez Anion gap [Moles/Vol] 10.2 mmol/L Normal [facility] Comment on above: Performed By: #### C MP, TSH, BNP #### [facility] [address] [place] [address] Dr. Rachel Cortez AST [Catalytic activity/Vol] 20 U/L Normal 15-37 [facility] Comment on above: Performed By: #### C MP, TSH, BNP #### [facility] [address] [place] [address] Dr. Rachel Cortez Bilirubin [Mass/Vol] 0.3 mg/dL Normal 0.2-1.0 [facility] Comment on above: Performed By: #### C MP, TSH, BNP #### [facility] [address] [place] [address] Dr. Rachel Cortez Calcium [Mass/Vol] 9.8 mg/dL Normal 8.5-10.1 [facility] Comment on above: Performed By: #### C MP, TSH, BNP #### [facility] [address] [place] [address] Dr. Rachel Cortez Chloride [Moles/Vol] 105 mmol/L Normal 98-107 [facility] Comment on above: Performed By: #### C MP, TSH, BNP #### [facility] [address] [place] [address] Dr. Rachel Cortez CO2 [Moles/Vol] 29.9 mmol/L Normal 21.0-32.0 [facility] Comment on above: Performed By: #### C MP, TSH, BNP #### [facility] [address] [place] [address] Dr. Rachel Cortez Creatinine [Mass/Vol] 1.19 mg/dL Normal 0.70-1.30 [facility] Comment on above: Performed By: #### C MP, TSH, BNP #### [facility] [address] [place] [address] Dr. Rachel Cortez EGFR-AF SLOVAK >60 Normal >=60 [facility] Comment on above: Performed By: #### C MP, TSH, BNP #### [facility] [address] [place] [address] Dr. Rachel Cortez EGFR-NON AF SLOVAK >60 Normal >=60 [facility] Comment on above: Performed By: #### C MP, TSH, BNP #### [facility] [address] [place] [address] Dr. Rachel Cortez Globulin (S) [Mass/Vol] 3.4 g/dL Normal [facility] Comment on above: Performed By: #### C MP, TSH, BNP #### [facility] [address] [place] [address] Dr. Rachel Cortez Glucose [Mass/Vol] 105 mg/dL Normal 74-106 [facility] Comment on above: Performed By: #### C MP, TSH, BNP #### [facility] [address] [place] [address] Dr. Rachel Cortez Potassium [Moles/Vol] 4.1 mmol/L Normal 3.5-5.1 [facility] Comment on above: Performed By: #### C MP, TSH, BNP #### [facility] [address] [place] [address] Dr. Rachel Cortez Protein [Mass/Vol] 7.4 g/dL Normal 6.4-8.2 [facility] Comment on above: Performed By: #### C MP, TSH, BNP #### [facility] [address] [place] [address] Dr. Rachel Cortez Sodium [Moles/Vol] 141 mmol/L Normal 136-145 [facility] Comment on above: Performed By: #### C MP, TSH, BNP #### [facility] [address] [place] [address] Dr. Rachel Cortez Urea nitrogen [Mass/Vol] 16.0 mg/dL Normal 7.0-18.0 [facility] Comment on above: Performed By: #### C MP, TSH, BNP #### [facility] [address] [place] [address] Dr. Rachel Cortez Urea nitrogen/Creatinine [Mass ratio] 13.4 mg/mg Normal [facility] Comment on above: Performed By: #### C MP, TSH, BNP #### [facility] [address] [place] [address] Dr. Rachel Cortez TSHon 08-29-2022 TSH 0.978 uIU/mL Normal 0.358-3.740 [facility] Comment on above: Performed By: #### I NSULIN #### [facility] [address] [address] [address] FACIAL BONES WO [...] WILFRID CAMARENA Date: 2022-08-11 18:30 Normal [facility] CT HEAD WO CONon 08-11-2022 CT [...] MARLYS MUNOZ Date: 2022-08-11 19:49 Normal [facility] INSULINon 05-09-2022 Insulin 9.9 uIU/mL Normal 2.6-24.9 [facility] Comment on above: Performed By: #### I NSULIN #### [facility] [address] [address] [address] Rachel Cortez CBC AUTO DIFFon 05-07-2022 BASO # 0.1 103/ul Normal 0.0-0.1 [facility] Comment on above: Performed By: #### I NSULIN #### [facility] [address] [address] [address] Rachel Cortez Basophils/100 WBC (Bld) 0.7 % Normal 0.2-2.0 [facility] Comment on above: Performed By: #### I NSULIN #### [facility] [address] [place] [address] Dr. Rachel Cortez EO # 0.0 103/ul Normal 0.0-0.7 [facility] Comment on above: Performed By: #### I NSULIN #### [facility] [address] [place] [address] Dr. Rachel Cortez Eosinophils/100 WBC (Bld) 0.1 % Critically low 0.9-7.0 [facility] Comment on above: Performed By: #### I NSULIN #### [facility] [address] [place] [address] Dr. Rachel Cortez Erythrocyte distribution width (RBC) [Ratio] 12.2 % Normal 11.0-15.0 [facility] Comment on above: Performed By: #### I NSULIN #### [facility] [address] [place] [address] Dr. aRchel Cortez Hematocrit (Bld) [Volume fraction] 41.1 % Critically low 42.0-54.0 [facility] Comment on above: Performed By: #### I NSULIN #### [facility] [address] [place] [address] Dr. Rachel Cortez Hemoglobin (Bld) [Mass/Vol] 14.1 g/dL Normal 14.0-18.0 [facility] Comment on above: Performed By: #### I NSULIN #### [facility] [address] [address] [address] Rachel Cortez IG # 0.03 10e3/ul Normal 0.00-0.03 [facility] Comment on above: Performed By: #### I NSULIN #### [facility] [address] [place] [address] Dr. Rachel Cortez IG % 0.4 % Normal 0.0-0.5 [facility] Comment on above: Performed By: #### I NSULIN #### [facility] [address] [place] [address] Dr. Rachel Cortez LYMPH # 2.3 103/ul Normal 1.2-3.8 [facility] Comment on above: Performed By: #### I NSULIN #### [facility] [address] [place] [address] Dr. Rachel Cortez Lymphocytes/100 WBC (Bld) 30.8 % Normal 20.5-60.0 [facility] Comment on above: Performed By: #### I NSULIN #### [facility] [address] [place] [address] Dr. Rachel Cortez MANUAL DIFF REQ NO Normal [facility] Comment on above: Performed By: #### I NSULIN #### [facility] [address] [place] [address] Dr. Rachel Cortez MCH (RBC) [Entitic mass] 29.9 pg Normal 25.9-34.0 [facility] Comment on above: Performed By: #### I NSULIN #### [facility] [address] [place] [address] Dr. Rachel Cortez MCHC (RBC) [Mass/Vol] 34.3 g/dL Normal 29.9-35.2 [facility] Comment on above: Performed By: #### I NSULIN #### [facility] [address] [place] [address] Dr. Rachel Cortez MCV (RBC) [Entitic vol] 87.3 fL Normal 80.0-94.0 [facility] Comment on above: Performed By: #### I NSULIN #### [facility] [address] [address] [address] Rachel Cortez MONO # 0.7 103/ul Normal 0.3-0.8 [facility] Comment on above: Performed By: #### I NSULIN #### [facility] [address] [address] [address] Rachel Cortez Monocytes/100 WBC (Bld) 8.9 % Normal 1.7-12.0 [facility] Comment on above: Performed By: #### I NSULIN #### [facility] [address] [place] [address] Dr. Rachel Cortez NEUT # 4.3 103/ul Normal 1.4-6.5 [facility] Comment on above: Performed By: #### I NSULIN #### [facility] [address] [place] [address] Dr. Rachel Cortez Neutrophils/100 WBC (Bld) 59.1 % Normal 43.0-75.0 [facility] Comment on above: Performed By: #### I NSULIN #### [facility] [address] [place] [address] Dr. Rachel Cortez Platelet mean volume (Bld) [Entitic vol] 9.9 fL Normal 9.5-13.5 [facility] Comment on above: Performed By: #### I NSULIN #### [facility] [address] [place] [address] Dr. Rachel Cortez PLT 184 103/ul Normal 150-450 [facility] Comment on above: Performed By: #### I NSULIN #### [facility] [address] [place] [address] Dr. Rachel Cortez RBC 4.71 106/ul Normal 4.70-6.10 [facility] Comment on above: Performed By: #### I NSULIN #### [facility] [address] [address] [address] Rachel Cortez WBC 7.3 103/ul Normal 4.0-11.0 [facility] Comment on above: Performed By: #### I NSULIN #### [facility] [address] [place] [address] Dr. Rachel Cortez CULTURE URINEon 05-07-2022 CULTURE URINE Culture Observations: LIGHT GROWTH OF MIXED SKIN NILES. NO POTENTIAL PATHOGENS SEEN. Normal [facility] Comment on above: Performed By: #### I NSULIN #### [facility] [address] [place] [address] Dr. Rachel Cortez FREE THYROXINE INDEX T7on FTI 2.07 Normal 1.30-4.50 [facility] Comment on above: Performed By: #### I NSULIN #### [facility] [address] [place] [address] Dr. Rachel Cortez T3U 35.0 % Normal 33.0-40.0 [facility] Comment on above: Performed By: #### I NSULIN #### [facility] [address] [place] [address] Dr. Rachel Cortez T4 [Mass/Vol] 5.90 ug/dL Normal 4.50-12.10 [facility] Comment on above: Performed By: #### I NSULIN #### [facility] [address] [place] [address] Dr. Rachel Cortez GLYCOHEMOGLOBIN A1Con 2022 ADA RECOMMENDATION SEE BELOW Normal [facility] Comment on above: Result Comment: ADA RECOMMENDED LIMIT 4.0 - 6.0 ADA THERAPEUTIC TARGET < 7.0 ACTION SUGGESTED > 7.0 Performed By: #### A 1C #### [facility] [address] [place] [address] Dr. Rachel Cortez Glucose [Mass/Vol] 100 mg/dL Normal [facility] Comment on above: Performed By: #### A 1C #### [facility] [address] [place] [address] Dr. Rachel Cortez HbA1c (Bld) [Mass fraction] 5.1 % Normal 4.5-6.2 [facility] Comment on above: Performed By: #### A 1C #### [facility] [address] [place] [address] Dr. Rachel Cortez IRONon 01-14-2023 Iron [Mass/Vol] 104.0 ug/dL Normal 65.0-175.0 [facility] Comment on above: Performed By: #### I NSULIN #### [facility] [address] [address] [address] Rachel Cortez LIPID PROFILEon 05-07-2022 CHOL-HDL RATIO NORM SEE BELOW Normal [facility] Comment on above: Result Comment: 3.3 - 4.4 LOW RISK 4.4 - 7.1 AVERAGE RISK 7.1 - 11.0 MODERATE RISK >11.0 HIGH RISK Performed By: #### C MP, LIPID #### [facility] [address] [address] [address] Rachel Cortez Cholesterol [Mass/Vol] 147 mg/dL Normal <=200 [facility] Comment on above: Performed By: #### C MP, LIPID #### [facility] [address] [address] [address] Rachel Cortez Cholesterol in HDL [Mass/Vol] 56 mg/dL Normal 40-60 [facility] Comment on above: Performed By: #### C MP, LIPID #### [facility] [address] [address] [address] Rachel Cortez Cholesterol in LDL [Mass/Vol] 77.8 mg/dL Normal [facility] Comment on above: Performed By: #### C MP, LIPID #### [facility] [address] [address] [address] Rachel Cortez Cholesterol.total/Ch olesterol in HDL [Mass ratio] 2.6 {ratio} Normal [facility] Comment on above: Performed By: #### C MP, LIPID #### [facility] [address] [address] [address] Rachel Cortez HDL NORMAL > or = 60 mg/dl - LOW CARDIOVASCULAR RISK <40 mg/dl - HIGH CARDIOVASCULAR RISK Normal [facility] Comment on above: Performed By: #### C MP, LIPID #### [facility] [address] [address] [address] Rachel Cortez LDL CALC NORMAL SEE BELOW Normal [facility] Comment on above: Result Comment: <100 mg/dl OPTIMAL 100 - 129 mg/dl NEAR OR ABOVE OPTIMAL 130 - 159 mg/dl BORDERLINE HIGH 160 - 189 mg/dl HIGH >190 mg/dl VERY HIGH Performed By: #### C MP, LIPID #### [facility] [address] [place] [address] Dr. Rachel Cortez Triglyceride [Mass/Vol] 66 mg/dL Normal <=150 [facility] Comment on above: Performed By: #### C MP, LIPID #### [facility] [address] [place] [address] Dr. Rachel Cortez VLDL CALC 13.2 mg/dL Normal [facility] Comment on above: Performed By: #### C MP, LIPID #### [facility] [address] [place] [address] Dr. Rachel Cortez PROF 14(COMP METB)on 023 Albumin [Mass/Vol] 4.0 g/dL Normal 3.4-5.0 [facility] Comment on above: Performed By: #### C MP, LIPID #### [facility] [address] [place] [address] Dr. Rachel Cortez Albumin/Globulin [Mass ratio] 1.3 {ratio} Normal [facility] Comment on above: Performed By: #### C MP, LIPID #### [facility] [address] [place] [address] Dr. Rachel Cortez ALP [Catalytic activity/Vol] 86 U/L Normal 46-116 [facility] Comment on above: Performed By: #### C MP, LIPID #### [facility] [address] [place] [address] Dr. Rachel Cortez ALT [Catalytic activity/Vol] 35 U/L Normal 16-63 [facility] Comment on above: Performed By: #### C MP, LIPID #### [facility] [address] [place] [address] Dr. Rachel Cortez Anion gap [Moles/Vol] 9.9 mmol/L Normal [facility] Comment on above: Performed By: #### C MP, LIPID #### [facility] [address] [place] [address] Dr. Rachel Cortez AST [Catalytic activity/Vol] 22 U/L Normal 15-37 [facility] Comment on above: Performed By: #### C MP, LIPID #### [facility] [address] [place] [address] Dr. Rachel Cortez Bilirubin [Mass/Vol] 0.4 mg/dL Normal 0.2-1.0 [facility] Comment on above: Performed By: #### C MP, LIPID #### [facility] [address] [place] [address] Dr. Rachel Cortez Calcium [Mass/Vol] 10.1 mg/dL Normal 8.5-10.1 [facility] Comment on above: Performed By: #### C MP, LIPID #### [facility] [address] [place] [address] Dr. Rachel Cortez Chloride [Moles/Vol] 107 mmol/L Normal 98-107 [facility] Comment on above: Performed By: #### C MP, LIPID #### [facility] [address] [place] [address] Dr. Rachel Cortez CO2 [Moles/Vol] 30.0 mmol/L Normal 21.0-32.0 [facility] Comment on above: Performed By: #### C MP, LIPID #### [facility] [address] [place] [address] Dr. Rachel Cortez Creatinine [Mass/Vol] 1.16 mg/dL Normal 0.70-1.30 [facility] Comment on above: Performed By: #### C MP, LIPID #### [facility] [address] [place] [address] Dr. Rachel Cortez EGFR-AF SLOVAK >60 Normal >=60 [facility] Comment on above: Performed By: #### C MP, LIPID #### [facility] [address] [place] [address] Dr. Rachel Cortez EGFR-NON AF SLOVAK >60 Normal >=60 [facility] Comment on above: Performed By: #### C MP, LIPID #### [facility] [address] [place] [address] Dr. Rachel Cortez Globulin (S) [Mass/Vol] 3.0 g/dL Normal [facility] Comment on above: Performed By: #### C MP, LIPID #### [facility] [address] [place] [address] Dr. Rachel Cortez Glucose [Mass/Vol] 88 mg/dL Normal 74-106 [facility] Comment on above: Performed By: #### C MP, LIPID #### [facility] [address] [place] [address] Dr. Rachel Cortez Potassium [Moles/Vol] 3.9 mmol/L Normal 3.5-5.1 [facility] Comment on above: Performed By: #### C MP, LIPID #### [facility] [address] [place] [address] Dr. Rachel Cortez Protein [Mass/Vol] 7.0 g/dL Normal 6.4-8.2 [facility] Comment on above: Performed By: #### C MP, LIPID #### [facility] [address] [place] [address] Dr. Rachel Cortez Sodium [Moles/Vol] 143 mmol/L Normal 136-145 [facility] Comment on above: Performed By: #### C MP, LIPID #### [facility] [address] [place] [address] Dr. Rachel Cortez Urea nitrogen [Mass/Vol] 16.0 mg/dL Normal 7.0-18.0 [facility] Comment on above: Performed By: #### C MP, LIPID #### [facility] [address] [place] [address] Dr. Rachel Cortez Urea nitrogen/Creatinine [Mass ratio] 13.8 mg/mg Normal [facility] Comment on above: Performed By: #### C MP, LIPID #### [facility] [address] [place] [address] Dr. Rachel Cortez TSHon 05-07-2022 TSH 2.417 uIU/mL Normal 0.358-3.740 [facility] Comment on above: Performed By: #### I NSULIN #### [facility] [address] [place] [address] Dr. Rachel Cortez UA RANDOM W/MICROSCOPICon BACTERIA NONE SEEN Normal NONE SEEN [facility] Comment on above: Performed By: #### I NSULIN #### [facility] [address] [place] [address] Dr. Rachel Cortez Bilirubin Ql (U) Negative Normal NEGATIVE [facility] Comment on above: Performed By: #### I NSULIN #### [facility] [address] [place] [address] Dr. Rachel Cortez CAST NONE SEEN Normal NONE SEEN [facility] Comment on above: Performed By: #### I NSULIN #### [facility] [address] [place] [address] Dr. Rachel Cortez Clarity (U) CLEAR Normal CLEAR [facility] Comment on above: Performed By: #### I NSULIN #### [facility] [address] [place] [address] Dr. Rachel Cortez Color (U) YELLOW Normal YELLOW [facility] Comment on above: Performed By: #### I NSULIN #### [facility] [address] [place] [address] Dr. Rachel Cortez Crystals LM Nom (Urine sed) NONE SEEN Normal NONE SEEN [facility] Comment on above: Performed By: #### I NSULIN #### [facility] [address] [place] [address] Dr. Rachel Cortez Epithelial cells LM Ql (Urine sed) NONE SEEN Normal NONE SEEN /RARE [facility] Comment on above: Performed By: #### I NSULIN #### [facility] [address] [place] [address] Dr. Rachel Cortez Glucose Ql (U) Negative Normal NEGATIVE [facility] Comment on above: Performed By: #### I NSULIN #### [facility] [address] [place] [address] Dr. Rachel Cortez Hemoglobin Ql (U) Negative Normal NEGATIVE [facility] Comment on above: Performed By: #### I NSULIN #### [facility] [address] [place] [address] Dr. Rachel Cortez Ketones Ql (U) Negative Normal NEGATIVE [facility] Comment on above: Performed By: #### I NSULIN #### [facility] [address] [place] [address] Dr. Rachel Cortez LEUKOCYTES Negative Normal NEGATIVE [facility] Comment on above: Performed By: #### I NSULIN #### [facility] [address] [place] [address] Dr. Rachel Cortez MUCOUS MODERATE Abnormal NONE SEEN [facility] Comment on above: Performed By: #### I NSULIN #### [facility] [address] [place] [address] Dr. Rachel Cortez Nitrite Ql (U) Negative Normal NEGATIVE [facility] Comment on above: Performed By: #### I NSULIN #### [facility] [address] [place] [address] Dr. Rachel Cortez pH (U) 6.0 [pH] Normal 5-9 [facility] Comment on above: Performed By: #### I NSULIN #### [facility] [address] [place] [address] Dr. Rachel Cortez RBC NONE SEEN Abnormal 0-2 [facility] Comment on above: Performed By: #### I NSULIN #### [facility] [address] [place] [address] Dr. Rachel Cortez SPEC GRAVITY 1.030 Abnormal 1.005-<=1.025 [facility] Comment on above: Performed By: #### I NSULIN #### [facility] [address] [place] [address] Dr. Rachel Cortez UA PROTEIN Negative Normal NEGATIVE/ TRACE [facility] Comment on above: Performed By: #### I NSULIN #### [facility] [address] [place] [address] Dr. Rachel Cortez Urobilinogen Qn (U) 1.0 {Colby'U}/dL Normal 0.2 - 1. 0 [facility] Comment on above: Performed By: #### I NSULIN #### [facility] [address] [place] [address] Dr. Rachel Cortez WBC NONE SEEN Normal NONE SEEN [facility] Comment on above: Performed By: #### I NSULIN #### [facility] [address] [address] [address] Rachel Cortez XR LSPINE MIN 4 [...] by: MARINA MAIN Date: 2022-05-06 16:40 Normal [facility] Coding Summary.on 03-31-2020 Coding Summary. CODING DATE: 03/31/2020 FINAL [facility] STATUS: Home (Routine DC) PAYOR: Self [...] Barajas Date Saved: 03/31/2020 08:22 am Normal [facility] Consent for Treatmenton Consent for Treatment [id number] #1.00CD:127 Normal [facility] Discharge Instructionson Discharge Instructions [id number] 6#1.00CD:127 Normal [facility] ED Clinical Summaryon 2019 ED Clinical Summary [address] [address] ED Clinical Summary Person Information Name: YAMILET WHITAKER [place] Age: 39 Years : 1980 Sex: Male Language: Vietnamese PCP: Irena Gardner MD Marital Status: Single [...] 03/30/2020 14:05:58 03/30/2020 14:05:58 03/30/2020 14:05:58 ADDRESS: [address] [place] [id number] [facility] DOC NOTES: MEDICAL INFORMATION: Prescriptions Given: New Medications Printed Prescriptions acetaminophen-hydroc odone (Ridgewood 325 mg-5 mg oral tablet) 1 Tablets [...] Follow up: With: Address: When: Irena Gardner [address] [place] [address], [place] [address] Business (1) In 3 days 04/02/2020 DIAGNOSIS: Lumbar strain Normal [facility] ED Note-Physicianon 03-30-20 20 ED Note-Physician Basic Information Time Seen: Darrick Gibbs PA-C 03/30/2020 11:47 Chief Complaint Pt. presents to the ed with c/o left lower back pain that started last night while laying in bed. 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 History of Present Illness 39-year-old male comes [...] and follow-up recommendations Discharge Prescription List Prescriptions Ridgewood 325 mg-5 mg oral tablet, 1 tab(s), Oral, q6hr, PRN predniSONE 20 mg Tab, 60 mg= 3 tab(s), Oral, Daily Robaxin-750 oral tablet, 1500 mg= 2 tab(s), Oral, TID Follow-up With When Contact Information Irena Gardner In 3 days 04/02/2020 [place] [address]- Business (1) Additional Instructions: Patient Education Lumbosacral Strain Attestation Patient seen and evaluated by the physician assistant scientist. Attending physician was present in the emergency department and supervised care. This report was transcribed using voice recognition software. Every effort was made to ensure accuracy, however, inadvertently computerized director of construction mistakes may be present. Appropriate healthcare PPE [...] oral syrup, 5 mL, Oral, QID, PRN Ridgewood 325 mg-5 mg oral tablet, 1 tab(s), [...] acute abnormality Read By: Darrick Gibbs PA-C Normal [facility] Comment on above: Result Comment: Elec tronically [...] Document Reviewed: 11/27/2013 ExitCare? Patient Information ?2015 [employer]. This information is not intended to replace advice given to you by your health care provider. Make sure you discuss any questions you have with your health care provider. Normal [facility] ED Patient Summaryon 020 ED Patient Summary [address] [address] Patient Discharge Instructions Person Information Name: YAMILET WHITAKER Age: 39 Years Arrival Date: 03/30/2020 11:37:37 Discharge Diagnosis: Lumbar strain Primary Care Physician: Irena Gardner MD Provider Information Primary Provider: Shaun Tomlinson DO [employer] Worker:Darrick Gibbs PA-C The exam and treatment you received in the Emergency Department were for an urgent problem and are not intended as complete care. It is important that you follow up with a doctor, nurse practitioner, or physician?s assistant scientist for ongoing care. If your symptoms become worse or you do not improve as expected and you are unable to reach your usual health care provider, you should return to the Emergency Department. We are available 24 hours a day. YAMILET WHITAKER has been given the following list of patient education materials, prescriptions and follow-up instructions: Follow-up Instructions: With: Address: When: Irena Gardner [address] [place] [address], [place] [address] Business (1) In 3 days 04/02/2020 In the event that this physician does not participate in your insurance network, please consult with your insurance company to find a nearby participating provider. Patient Education Materials: Lumbosacral Strain A MESSAGE TO ALL PATIENTS REGARDING OPIOIDS PRESCRIPTION OPIOIDS: WHAT YOU NEED TO KNOW Prescription opioids can be used to help relieve uanvzkov-bb-rxupfp pain and are often prescribed following a [...] be struggling with addiction, tell your health customer care agent and ask for guidance or call SAM[employer]?S National Helpline at 7-875-320-HELP. v Source: [place] Department of Health and Human Services/Center for Disease Control & Prevention [facility] Medications Given: Medication Dose Route orphenadrine 60.00 mg IntraMuscular Left Gluteus Medius acetaminophen-oxycod one 1.00 tab(s) Oral Medication Information: New Medications Printed Prescriptions acetaminophen-hydroc odone (Ridgewood 325 mg-5 mg oral tablet) 1 Tablets [...] Comment: Pharmacy Information: Thank you for choosing [facility] Patient Education Materials: Lumbosacral Strain Lumbosacral strain [...] Document Reviewed: 11/27/2013 ExitCare? Patient Information ?2015 [employer]. This information is not intended to replace advice given to you by your health care provider. Make sure you discuss any questions you have with your health care provider. IJULIANNE BRIAN S , have received the following patient education materials/instructio ns and have verbalized understanding: Patient Education Materials: Lumbosacral Strain Follow-up Instructions: With: Address: When: Irena Gardner [address] [place] [address], [address] [place] [address] Business (1) In 3 days 04/02/2020 Patient Signature Date Clinician/Nurse Signature Date 03/30/2020 14:06:00 [facility] Prescriptions/Work Noteson 1 05-31-2019 Prescriptions/Work Notes [id number] 2#1.00CD:127 [facility] XR Spine Lumbosacral 2 or 3 [...] Mullen M.D. Transcribed by: caleb Technologist: MIGUEL [facility] Encounters Encounter Date Encounter Type Care Provider Facility Start: 06-02-2023 End: 06-03-2023 [facility] Start: 06-01-2023 End: 06-03-2023 Emergency department patient visit MAINE FERGUSON [facility] Start: 06-01-2023 End: 06-02-2023 ambulatory IRENA GARDNER [facility] Start: 09-01-2022 End: 09-02-[address] IRENA [...] above: Performed By: #### L EADA #### [facility] [address] [place] [address] Dr. Rachel Cortez Payers Date Payer Category Payer Unknown [id number] 2.16.84 [id number] 1980 Unknown [id number] 2.16.84 [id number] 1980 Unknown [id number] 2.16.84 [id number] 1980 Unknown [id number] .16.84 [id number] 1978 Unknown [id number] 2.16.84 [id number] 1980 Unknown [id number] 2.16.84 [id number] 1980 Unknown [id number] 2.16.8 [id number] 1978 Unknown [id number] 2.16.8 [id number] 1980 Unknown [id number] 2.16.8 [id number] 1959 Unknown [id number] Summary Purpose Family History No Family History Records FoundNo Family History Records FoundNo Family History Records Found Advance Directives No Advanced Directives Records FoundNo Advanced Directives Records FoundNo Advanced Directives Records Found Additional Source Comments (unrecognized sect ion and content) No Status Records FoundNo Status Records FoundNo Status Records Found INFORMATION SOURCE (unrecogn ized section and content) DATE CREATED AUTHOR 03/31/2020 [facility] DATE CREATED AUTHOR AUTHOR'S ORGANIZ ATION 09/05/2022 [facility] DATE CREATED AUTHOR AUTHOR'S ORGANIZ ATION 06/05/2023 [facility] FOR RECORDS PERTAINING TO PATIENTS WHO [...] BE BASED ON THE PRIMARY CLINICAL RECORDS. [facility]. provides no warranty or guarantee of the accuracy or completeness of information in this document.
== END 2023-07-12 11:52 | disposition home or self-care (01) ==
LOC: CT 11:52
PROVIDERS: PCP Family Medicine; Visit Provider Family Medicine
DX: R10.32 Left lower quadrant pain (principal)
CPT/HCPCS: 74177; Q9967

== ENCOUNTER 2023-07-12 14:04 | Emergency (ER) | payer OTHER, SELFPAY ==
[2023-07-12] VITALS (13 sets, daily range): BP systolic 100–133; BP diastolic 67–85; PULSE 57–72; RESP 15–20; TEMP 36.6; O2SAT 98–100; BMI 23.0
--- NOTE | 2023-07-12 14:15 | XR_ITS ---
The [address] [address] Patient Name: YAMILET WHITAKER MRN: [id number] date: 1980 Sex: M Assigned Patient Location: ED.MAIN Current Patient Location: ER Accession/Order Number: [id number] Exam Date: 07/12/2023 14:36 Report Date: 07/12/2023 15:20 At the request of: RAKAN MINOR Procedure: XR chest 1V ONE-VIEW CHEST RADIOGRAPH, 07/12/2023 2:36 PM EDT COMPARISON: Chest, 06/27/2023 CLINICAL HISTORY: Chest pain FINDINGS: No acute cardiopulmonary disease. No pulmonary edema, pneumothorax, or pleural effusion. Normal heart size. No acute osseous abnormality. XR/XR chest 1V IMPRESSION: No acute abnormality identified. Electronically authenticated by: Genaro BARRIOS Date: 07/12/2023 15:20
--- NOTE | 2023-07-12 14:20 | ED.CHESTPAI1 ---
HPI - Chest Pain General Chief Complaint: Chest Pain Stated Complaint: HIGH HEART RATE Time Seen by Provider: 07/12/23 14:04 Source: patient Mode of arrival: walk-in Limitations: no limitations History of Present Illness HPI narrative: Patient is a 42-year-old male who presents to the emergency department for abnormal reading on his watch. Patient was seen in this emergency department 3 weeks ago for chest discomfort. He had an unremarkable workup and was discharged home. He states that he was diagnosed with A-fib almost 2 months ago in [place] and was hospitalized at that time. He was placed on Eliquis which he has been taking every day. He states he had some abdominal discomfort and Dr. Gardner ordered a CT of the abdomen with oral contrast. He states after drinking the oral contrast, he felt discomfort in his chest and felt shaky. He is noted to have a history of anxiety. He states he looked at his watch which told him he was in A-fib. He presents to the ER in normal sinus rhythm at a rate of 60. He has had no fevers, vomiting. No leg swelling. 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 He is being managed through occupational health for the lead levels but states he has not received any treatment. Related Data Home Medications ?Medication ?Instructions ?Recorded ?Confirmed apixaban 5 mg tablet (Eliquis) 5 mg PO Q12H 06/27/23 07/12/23 aspirin 81 mg tablet,delayed 81 mg PO DAILY 06/27/23 07/12/23 release citalopram 20 mg tablet 20 mg PO .QD 06/27/23 06/27/23 ciprofloxacin HCl 500 mg tablet 500 mg PO BID 07/12/23 07/12/23 metronidazole 500 mg tablet 500 mg PO TID 07/12/23 07/12/23 Previous Rx's ?Medication ?Instructions ?Recorded hydroxyzine HCl 25 mg tablet 25 mg PO Q8H PRN anxiety #14 tabs 06/27/23 Allergies Allergy/AdvReac Type Severity Reaction Status Date / Time No Known Drug Allergies Allergy Verified 06/27/23 14:23 Review of Systems ROS Constitutional Denies: fever or chills Ears, nose, mouth, and throat Denies: throat pain or nasal congestion Cardiovascular Reports: chest pain Respiratory Denies: shortness of breath Gastrointestinal Denies: nausea or vomiting Musculoskeletal Denies: back pain or neck pain Integumentary/Breast Denies: rash Neurological Denies: headache PFSH PFSH Social History Smoking status: Never smoker Exam Narrative Exam Narrative: Gen.: Awake, alert, in no distress Head: Normocephalic, atraumatic ENT: Moist mucous membranes Respiratory: No respiratory distress, lungs clear bilaterally Cardio: Regular rate and rhythm Gastrointestinal: Abdomen is soft, nondistended and nontender to palpation Extremities: Moves extremities equally, no pedal edema Psych: Normal mood and affect Neuro: No focal neuro deficit Skin: Warm, dry, intact Constitutional Vital Signs, click to edit/add: Last Vital Signs Temp 97.9 F 07/12/23 14:08 Pulse 61 07/12/23 16:00 Resp 18 07/12/23 16:00 BP 108/82 07/12/23 16:00 Pulse Ox 99 07/12/23 16:00 O2 Del Method Room Air 07/12/23 14:08 Course Vital Signs Vital signs: Vital Signs Temperature 97.9 F 07/12/23 14:08 Pulse Rate 65 07/12/23 14:08 Respiratory Rate 20 07/12/23 14:08 Blood Pressure 133/70 07/12/23 14:08 Pulse Oximetry 100 07/12/23 14:08 Oxygen Delivery Method Room Air 07/12/23 14:08 Temperature 97.9 F 07/12/23 14:08 Pulse Rate 61 07/12/23 16:00 Respiratory Rate 18 07/12/23 16:00 Blood Pressure 108/82 07/12/23 16:00 Pulse Oximetry 99 07/12/23 16:00 Oxygen Delivery Method Room Air 07/12/23 14:08 MDM - Chest Pain MDM Narrative Medical decision making narrative: Patient is fixated on lead poisoning causing his symptoms. He had no severe chest discomfort in the ER, normal vital signs and is in normal sinus rhythm. He was given education and reassurance about his A-fib, it may be paroxysmal, he is not currently in A-fib and is rate controlled. He has no shortness of breath, upper respiratory symptoms. No EKG changes, he had 2 troponins that are normal and has no PE risk factors. He is already anticoagulated with Eliquis and has been compliant. He has no tachycardia or hypoxia. He was reevaluated by attending Physician. He is stable for discharge, follow-up with PCP and return to the ER if symptoms change or worsen. Medical Records Data Attestation: I reviewed the patient's medical records. Lab Data Attestation: I reviewed the patient's lab results. Labs: Lab Results 07/12/23 07/12/23 Range/Units 14:30 15:39 WBC 4.4 (4.0-11.0) 10^3/uL RBC 4.81 (4.70-6.10) 10^6/uL Hgb 14.6 (14.0-18.0) g/dL Hct 42.6 (42.0-54.0) % MCV 88.6 (80.0-94.0) fL MCH 30.4 (25.9-34.0) pg MCHC 34.3 (29.9-35.2) g/dL RDW 12.1 (11.0-15.0) % Plt Count 162 (150-450) 10^3/uL MPV 9.7 (9.5-13.5) fL Neut % (Auto) 58.0 (43.0-75.0) % Lymph % (Auto) 28.7 (20.5-60.0) % [place] % (Auto) 11.5 (1.7-12.0) % Eos % (Auto) 0.9 (0.9-7.0) % Baso % (Auto) 0.7 (0.2-2.0) % Neut # (Auto) 2.6 (1.4-6.5) 10^3/uL Lymph # (Auto) 1.3 (1.2-3.8) 10^3/uL [place] # (Auto) 0.5 (0.3-0.8) 10^3/uL Eos # (Auto) 0.0 (0.0-0.7) 10^3/uL Baso # (Auto) 0.0 (0.0-0.1) 10^3/uL Abs Immat Gran (auto) 0.01 (0.00-0.03) 10^3/uL Imm/Tot Granulo (auto) 0.2 (0.0-0.5) % Sodium 137 (136-145) mmol/L Potassium 4.2 (3.5-5.1) mmol/L Chloride 100 (98-107) mmol/L Carbon Dioxide 27.7 (21.0-32.0) mmol/L Anion Gap 13.5 BUN 16.0 (7.0-18.0) mg/dL Creatinine 1.18 (0.70-1.30) mg/dL Est GFR ( Amer) >60 (>=60) Est GFR (Non-Af Amer) >60 (>=60) BUN/Creatinine Ratio 13.6 Glucose 96 (74-106) mg/dL Calcium 10.1 (8.5-10.1) mg/dL Total Bilirubin 0.5 (0.2-1.0) mg/dL AST 24 (15-37) U/L ALT 49 (16-63) U/L Alkaline Phosphatase 84 (46-116) U/L Troponin I High Sens <4.0 L 4.4 (4.0-76.1) pg/mL Total Protein 7.1 (6.4-8.2) g/dL Albumin 4.0 (3.4-5.0) g/dL Globulin 3.1 g/dL Albumin/Globulin Ratio 1.3 TSH 1.787 (0.358-3.740) uIU/mL Imaging Data Chest x-ray: Attestation: I have reviewed the pertinent imaging results. Radiologist's impression: ITS Impressions Chest X-Ray 07/12/23 14:15 IMPRESSION: No acute abnormality identified. Electronically authenticated by: Genaro BARRIOS Date: 07/12/2023 15:20 ECG Data Attestation: I personally reviewed and interpreted this ECG as follows: (Sinus rhythm at a rate of 55, occasional PVC, no acute ST elevation or reciprocal changes. No EKG changes from 06/27/2023. EKG reviewed by attending physician) ECG interpretation date: 07/12/23 Heart Score History: Slightly/Non-Suspicious ECG: Normal Age: >45-<65 years Risk Factors: No Risk Factors Troponin: <Normal Limit Total Heart Score Recommendations & Risks:: 1 Discharge Plan Discharge Stand Alone Forms: Portal Instructions Chief Complaint: Chest Pain Clinical Impression: Chest pain Patient Disposition: Home, Self-Care Time of Disposition Decision: 16:17 Condition: Good Prescriptions / Home Meds: No Action Eliquis 5 mg tablet 5 mg PO Q12H aspirin 81 mg tablet,delayed release (DR/EC) 81 mg PO DAILY citalopram 20 mg tablet 20 mg PO .QD hydroxyzine HCl 25 mg tablet 25 mg PO Q8H PRN (Reason: anxiety) Qty: 14 0RF ciprofloxacin HCl 500 mg tablet 500 mg PO BID metronidazole 500 mg tablet 500 mg PO TID Print Language: Portuguese Instructions: Chest Pain (ED) Referrals: Jos Gardner MD [Primary Care Provider] - 1 week
--- OUTSIDE RECORDS SUMMARY | 2023-07-12 14:28 | XMS_ITS | CCD ---
Author Organization [employer] Care Team Providers Care Publicity Consultant Name Role Phone LATIA ., DR OSBORN [...] Attending Unavailable GENE ., BEV Consulting Unavailable AMRLYS MUNOZ Consulting Unavailable WILFRID CAMARENA Consulting Unavailable [...] 06-02-19 ABSOLUTE BASOPHIL 0.1 X10E9/L Normal 0.0-0.2 [facility] Comment on above: Performed By: #### C BCA, CMP, 34119-1, PINR, 17173-9, 17238-1, 55555-3, 58792-1, THYR #### [facility] ([id number]) [address] [place] [address] 58122 ABSOLUTE NEUTROPHIL 3.9 X10E9/L Normal 1.5-6.6 [facility] Comment on above: Performed By: #### C BCA, CMP, 29362-1, PINR, 32310-5, 01706-4, 60132-8, 27202-7, THYR #### [facility] ([id number]) [address] [place] [address] 44302 Basophils/100 WBC (Bld) 0.8 % Normal [facility] Comment on above: Performed By: #### C BCA, CMP, 95497-3, PINR, 90389-6, 35765-9, 73246-0, 40389-0, THYR #### [facility] ([id number]) [address] [place] [address] 63715 Eosinophils (Bld) [#/Vol] 0.1 10*3/uL Normal 0.0-0.4 [facility] Comment on above: Performed By: #### C BCA, CMP, 06531-1, PINR, 70398-0, 14531-4, 78985-7, 08688-7, THYR #### [facility] ([id number]) [address] [place] [address] 96954 Eosinophils/100 WBC (Bld) 1.4 % Normal [facility] Comment on above: Performed By: #### C BCA, CMP, 32341-6, PINR, 86997-7, 57341-4, 20035-4, 19081-1, THYR #### [facility] ([id number]) [address] [place] [address] 61699 Erythrocyte distribution width (RBC) [Ratio] 13.2 % Normal 11.5-15.0 [facility] Comment on above: Performed By: #### C BCA, CMP, 81186-3, PINR, 87358-3, 82860-6, 64251-6, 32930-3, THYR #### [facility] ([id number]) [address] [place] [address] 45916 Hematocrit (Bld) [Volume fraction] 40.7 % Normal 39-49 [facility] Comment on above: Performed By: #### C BCA, CMP, 91632-2, PINR, 02777-6, 98612-7, 07565-5, 11760-4, THYR #### [facility] ([id number]) [address] [place] [address] 93206 Hemoglobin (Bld) [Mass/Vol] 14.2 g/dL Normal 13.0-17.0 [facility] Comment on above: Performed By: #### C BCA, CMP, 12822-6, PINR, 30419-7, 98753-6, 97724-1, 62875-8, THYR #### [facility] ([id number]) [address] [place] [address] 22862 Lymphocytes (Bld) [#/Vol] 2.2 10*3/uL Normal 1.0-3.5 [facility] Comment on above: Performed By: #### C BCA, CMP, 84713-2, PINR, 86646-5, 95024-2, 89197-8, 59728-1, THYR #### [facility] ([id number]) [address] [place] [address] 79309 Lymphocytes/100 WBC (Bld) 31.4 % Normal [facility] Comment on above: Performed By: #### C BCA, CMP, 15656-6, PINR, 74168-4, 63825-3, 92859-1, 90846-0, THYR #### [facility] ([id number]) [address] [place] [address] 53867 MCH (RBC) [Entitic mass] 30.7 pg Normal 27-34 [facility] Comment on above: Performed By: #### C BCA, CMP, 39701-6, PINR, 36576-8, 19396-5, 14220-6, 33948-4, THYR #### [facility] ([id number]) [address] [place] [address] 17801 MCHC (RBC) [Mass/Vol] 34.9 g/dL Normal 32-36 [facility] Comment on above: Performed By: #### C BCA, CMP, 44996-1, PINR, 71962-2, 08065-6, 34230-3, 08014-8, THYR #### [facility] ([id number]) [address] [place] [address] 77334 MCV (RBC) [Entitic vol] 88 fL Normal 80-100 [facility] Comment on above: Performed By: #### C BCA, CMP, 34535-6, PINR, 13470-4, 94923-9, 22620-3, 88335-2, THYR #### [facility] ([id number]) [address] [place] [address] 93810 Monocytes (Bld) [#/Vol] 0.7 10*3/uL Normal 0-0.9 [facility] Comment on above: Performed By: #### C BCA, CMP, 86111-8, PINR, 21327-1, 31486-6, 40964-1, 43654-1, THYR #### [facility] ([id number]) [address] [place] [address] 34595 Monocytes/100 WBC (Bld) 10.7 % Normal [facility] Comment on above: Performed By: #### C BCA, CMP, 77893-8, PINR, 09308-0, 68575-2, 92233-6, 48909-7, THYR #### [facility] ([id number]) [address] [place] [address] 49065 Neutrophils/100 WBC (Bld) 55.7 % Normal [facility] Comment on above: Performed By: #### C BCA, CMP, 73473-6, PINR, 93231-9, 79826-5, 16123-5, 77270-5, THYR #### [facility] ([id number]) [address] [place] [address] 45162 Platelet mean volume (Bld) [Entitic vol] 8.5 fL Normal 7-12 [facility] Comment on above: Performed By: #### C BCA, CMP, 26810-0, PINR, 00255-0, 01214-1, 29749-7, 20423-2, THYR #### [facility] ([id number]) [address] [place] [address] 68314 Platelets (Bld) [#/Vol] 192 10*3/uL Normal 150-450 [facility] Comment on above: Performed By: #### C BCA, CMP, 28524-1, PINR, 44495-6, 11207-0, 34128-9, 32847-5, THYR #### [facility] ([id number]) [address] [place] [address] 42211 RBC COUNT 4.61 X10E12/L Normal 4.10-5.70 [facility] Comment on above: Performed By: #### C BCA, CMP, 63631-7, PINR, 69609-2, 53730-5, 41454-2, 55997-8, THYR #### [facility] ([id number]) [address] [place] [address] 53786 WBC (Bld) [#/Vol] 7.0 10*3/uL Normal 4.0-11.0 [facility] Comment on above: Performed By: #### C BCA, CMP, 00168-3, PINR, 78869-7, 08262-6, 36338-4, 79150-3, THYR #### [facility] ([id number]) [address] [place] [address] 61105 COMPREHENSIVE METABOLIC PANE Nik 06-02-2023 Albumin [Mass/Vol] 4.2 g/dL Normal 3.2-5.3 [facility] Comment on above: Performed By: #### C BCA, CMP, 25934-0, PINR, 87392-7, 33997-0, 01784-8, 56889-8, THYR #### [facility] ([id number]) [address] [place] [address] 25715 ALP [Catalytic activity/Vol] 84 U/L Normal 39-130 [facility] Comment on above: Performed By: #### C BCA, CMP, 83368-3, PINR, 74155-2, 97341-2, 16601-4, 09150-3, THYR #### [facility] ([id number]) [address] [place] [address] 74508 ALT [Catalytic activity/Vol] 27 U/L Normal 0-40 [facility] Comment on above: Performed By: #### C BCA, CMP, 31940-1, PINR, 54788-9, 47873-1, 52555-6, 57895-3, THYR #### [facility] ([id number]) [address] [place] [address] 18134 Anion gap [Moles/Vol] 8 mmol/L Normal 5-15 [facility] Comment on above: Performed By: #### C BCA, CMP, 23975-0, PINR, 33635-3, 82855-2, 03886-9, 37506-8, THYR #### [facility] ([id number]) [address] [place] [address] 94387 AST [Catalytic activity/Vol] 22 U/L Normal 0-41 [facility] Comment on above: Performed By: #### C BCA, CMP, 56543-0, PINR, 71020-5, 66811-0, 39533-4, 15151-6, THYR #### [facility] ([id number]) [address] [place] [address] 05496 Bilirubin [Mass/Vol] 0.8 mg/dL Normal 0.3-1.2 [facility] Comment on above: Performed By: #### C BCA, CMP, 73044-4, PINR, 38757-8, 65206-5, 90611-4, 31661-8, THYR #### [facility] ([id number]) [address] [place] [address] 17843 Calcium [Mass/Vol] 10.0 mg/dL Normal 8.5-10.5 [facility] Comment on above: Performed By: #### C BCA, CMP, 30989-2, PINR, 99924-3, 07925-9, 37682-4, 89527-7, THYR #### [facility] ([id number]) [address] [place] [address] 32077 Chloride [Moles/Vol] 102 mmol/L Normal 98-109 [facility] Comment on above: Performed By: #### C BCA, CMP, 09640-2, PINR, 21500-9, 36896-4, 04508-4, 32230-7, THYR #### [facility] ([id number]) [address] [place] [address] 24671 CO2 [Moles/Vol] 26 mmol/L Normal 22-32 [facility] Comment on above: Performed By: #### C BCA, CMP, 21610-5, PINR, 37899-4, 43757-6, 31637-1, 54575-3, THYR #### [facility] ([id number]) [address] [place] [address] 64992 Creatinine [Mass/Vol] 1.07 mg/dL Normal 0.70-1.20 [facility] Comment on above: Result Comment: METH OD TRACEABLE TO IDMS STANDARD Performed By: #### C BCA, CMP, 96178-0, PINR, 96896-6, 46551-1, 23042-2, 72131-9, THYR #### [facility] ([id number]) [address] [place] [address] 53126 GFR/1.73 sq M.predicted among non-blacks MDRD (S/P/Bld) [Vol rate/Area] 88 mL/min/{1.73_m2} Normal >59 [facility] Comment on above: Result Comment: Reported eGFR is based on the CKD-EPI 2020 equation that does not use a race coefficient. Performed By: #### C BCA, CMP, 88564-3, PINR, 25870-9, 66661-8, 51721-4, 19365-4, THYR #### [facility] ([id number]) [address] [place] [address] 99587 Glucose [Mass/Vol] 94 mg/dL Normal 65-99 [facility] Comment on above: Performed By: #### C BCA, CMP, 05222-4, PINR, 64736-5, 22698-8, 87187-7, 96459-3, THYR #### [facility] ([id number]) [address] [place] [address] 41836 Potassium [Moles/Vol] 4.0 mmol/L Normal 3.5-5.0 [facility] Comment on above: Performed By: #### C BCA, CMP, 85533-5, PINR, 43658-9, 02719-2, 36823-5, 66881-3, THYR #### [facility] ([id number]) [address] [place] [address] 01836 Protein [Mass/Vol] 7.0 g/dL Normal 6.0-8.0 [facility] Comment on above: Performed By: #### C BCA, CMP, 71624-4, PINR, 27324-7, 49574-3, 73292-3, 31979-4, THYR #### [facility] ([id number]) [address] [place] [address] 89502 Sodium [Moles/Vol] 136 mmol/L Normal 134-146 [facility] Comment on above: Performed By: #### C BCA, CMP, 47995-4, PINR, 02066-1, 63564-1, 69901-8, 34267-5, THYR #### [facility] ([id number]) [address] [place] [address] 71218 Urea nitrogen [Mass/Vol] 20 mg/dL Normal 5-23 [facility] Comment on above: Performed By: #### C BCA, CMP, 03708-9, PINR, 55973-8, 79989-9, 80590-2, 72196-3, THYR #### [facility] ([id number]) [address] [place] [address] 29337 MAGNESIUMon 06-02-2023 Magnesium [Mass/Vol] 2.1 mg/dL Normal 1.8-2.6 [facility] Comment on above: Performed By: #### C BCA, CMP, 97294-9, PINR, 81222-1, 58169-3, 43809-4, 77924-6, THYR #### [facility] ([id number]) [address] [place] [address] 35515 TROPONIN Ion 06-02-2023 Troponin I.cardiac [Mass/Vol] ng/mL Normal 0.00-0.04 [facility] Comment on above: Performed By: #### C BCA, CMP, 49418-7, PINR, 91700-6, 99833-3, 46904-8, 32429-1, THYR #### [facility] ([id number]) [address] [place] [address] 78870 CBC AND AUTO DIFFon 06-01-19 24 ABSOLUTE BASOPHIL 0.1 X10E9/L Normal 0.0-0.2 [facility] Comment on above: Performed By: #### C BCA, CMP, 91952-8, PINR, 49862-6, 12154-3, 06637-8, 91300-4, THYR #### [facility] ([id number]) [address] [place] [address] 08016 ABSOLUTE NEUTROPHIL 5.1 X10E9/L Normal 1.5-6.6 [facility] Comment on above: Performed By: #### C BCA, CMP, 96596-1, PINR, 05472-2, 77410-4, 22386-7, 45493-3, THYR #### [facility] ([id number]) [address] [place] [address] 37745 Basophils/100 WBC (Bld) 0.8 % Normal [facility] Comment on above: Performed By: #### C BCA, CMP, 60199-3, PINR, 60793-7, 58385-2, 53263-7, 76304-1, THYR #### [facility] ([id number]) [address] [place] [address] 29597 Eosinophils (Bld) [#/Vol] 0.1 10*3/uL Normal 0.0-0.4 [facility] Comment on above: Performed By: #### C BCA, CMP, 58556-0, PINR, 64046-6, 49510-3, 63902-6, 53473-3, THYR #### [facility] ([id number]) [address] [place] [address] 55157 Eosinophils/100 WBC (Bld) 1.1 % Normal [facility] Comment on above: Performed By: #### C BCA, CMP, 89153-1, PINR, 63549-0, 98927-8, 25639-7, 42959-2, THYR #### [facility] ([id number]) [address] [place], [place] [address] Erythrocyte distribution width (RBC) [Ratio] 13.0 % Normal 11.5-15.0 [facility] Comment on above: Performed By: #### C BCA, CMP, 72247-8, PINR, 62830-7, 74580-6, 37549-1, 04883-8, THYR #### [facility] ([id number]) [address] [place] [address] 92553 Hematocrit (Bld) [Volume fraction] 41.5 % Normal 39-49 [facility] Comment on above: Performed By: #### C BCA, CMP, 00477-0, PINR, 28437-4, 16250-3, 64585-7, 71478-8, THYR #### [facility] ([id number]) [address] [place], [place] [address] Hemoglobin (Bld) [Mass/Vol] 14.6 g/dL Normal 13.0-17.0 [facility] Comment on above: Performed By: #### C BCA, CMP, 98618-6, PINR, 47105-7, 56008-5, 06398-1, 24572-2, THYR #### [facility] ([id number]) [address] [place], [place] [address] Lymphocytes (Bld) [#/Vol] 1.7 10*3/uL Normal 1.0-3.5 [facility] Comment on above: Performed By: #### C BCA, CMP, 30550-3, PINR, 88711-6, 75188-9, 27288-7, 56730-2, THYR #### [facility] ([id number]) [address] [place] [address] 80912 Lymphocytes/100 WBC (Bld) 22.2 % Normal [facility] Comment on above: Performed By: #### C BCA, CMP, 96883-0, PINR, 15038-6, 84133-9, 26103-3, 24564-5, THYR #### [facility] ([id number]) [address] [place] [address] [place] [address] MCH (RBC) [Entitic mass] 30.4 pg Normal 27-34 [facility] Comment on above: Performed By: #### C BCA, CMP, 92950-2, PINR, 94358-2, 80197-0, 46235-7, 73515-3, THYR #### [facility] ([id number]) [address] [place] [address] [place] [address] MCHC (RBC) [Mass/Vol] 35.1 g/dL Normal 32-36 [facility] Comment on above: Performed By: #### C BCA, CMP, 08378-6, PINR, 82114-9, 93901-9, 80601-9, 35683-2, THYR #### [facility] ([id number]) [address] [place] [address] [place] [address] MCV (RBC) [Entitic vol] 87 fL Normal 80-100 [facility] Comment on above: Performed By: #### C BCA, CMP, 12685-8, PINR, 51736-5, 78972-7, 44247-0, 96038-5, THYR #### [facility] ([id number]) [address] [place] [address], [place] [address] Monocytes (Bld) [#/Vol] 0.6 10*3/uL Normal 0-0.9 [facility] Comment on above: Performed By: #### C BCA, CMP, 49715-4, PINR, 62683-3, 37946-8, 30097-6, 13914-6, THYR #### [facility] ([id number]) [address] [place] [address] 09385 Monocytes/100 WBC (Bld) 7.8 % Normal [facility] Comment on above: Performed By: #### C BCA, CMP, 06264-1, PINR, 04764-4, 51457-1, 47765-6, 41198-9, THYR #### [facility] ([id number]) [address] [place] [address] 79186 Neutrophils/100 WBC (Bld) 68.1 % Normal [facility] Comment on above: Performed By: #### C BCA, CMP, 98348-1, PINR, 02499-4, 49566-1, 52753-8, 40885-4, THYR #### [facility] ([id number]) [address] [place] [address] 22270 Platelet mean volume (Bld) [Entitic vol] 8.3 fL Normal 7-12 [facility] Comment on above: Performed By: #### C BCA, CMP, 23396-3, PINR, 97773-6, 76165-3, 41282-9, 42770-9, THYR #### [facility] ([id number]) [address] [place] [address] 30483 Platelets (Bld) [#/Vol] 207 10*3/uL Normal 150-450 [facility] Comment on above: Performed By: #### C BCA, CMP, 69419-4, PINR, 44934-1, 40088-8, 28525-1, 19265-2, THYR #### [facility] ([id number]) [address] [place] [address] 38081 RBC COUNT 4.79 X10E12/L Normal 4.10-5.70 [facility] Comment on above: Performed By: #### C BCA, CMP, 10340-1, PINR, 05327-8, 01384-9, 23830-6, 07646-2, THYR #### [facility] ([id number]) [address] [place] [address] 66887 WBC (Bld) [#/Vol] 7.5 10*3/uL Normal 4.0-11.0 [facility] Comment on above: Performed By: #### C BCA, CMP, 82856-9, PINR, 13189-2, 58787-1, 07238-7, 98155-8, THYR #### [facility] ([id number]) [address] [place] [address] 92227 COMPREHENSIVE METABOLIC PANE [facility] 06-01-2023 Albumin [Mass/Vol] 5.0 g/dL Normal 3.2-5.3 [facility] Comment on above: Performed By: #### C BCA, CMP, 05336-5, PINR, 98665-6, 29835-7, 12455-3, 78653-6, THYR #### [facility] ([id number]) [address] [place] [address] 82008 ALP [Catalytic activity/Vol] 90 U/L Normal 39-130 [facility] Comment on above: Performed By: #### C BCA, CMP, 33974-9, PINR, 70343-9, 97676-4, 50334-0, 77536-0, THYR #### [facility] ([id number]) [address] [place] [address] 82898 ALT [Catalytic activity/Vol] 32 U/L Normal 0-40 [facility] Comment on above: Performed By: #### C BCA, CMP, 12630-6, PINR, 22999-1, 98322-8, 62400-1, 92753-4, THYR #### [facility] ([id number]) [address] [place] [address] 71408 Anion gap [Moles/Vol] 7 mmol/L Normal 5-15 [facility] Comment on above: Performed By: #### C BCA, CMP, 15736-3, PINR, 53604-0, 51368-0, 04496-4, 02613-9, THYR #### [facility] ([id number]) [address] [place] [address] 52220 AST [Catalytic activity/Vol] 27 U/L Normal 0-41 [facility] Comment on above: Performed By: #### C BCA, CMP, 29350-6, PINR, 98932-1, 24783-1, 66882-1, 07931-4, THYR #### [facility] ([id number]) [address] [place] [address] 72003 Bilirubin [Mass/Vol] 0.8 mg/dL Normal 0.3-1.2 [facility] Comment on above: Performed By: #### C BCA, CMP, 73933-9, PINR, 60042-7, 86766-7, 83055-9, 02692-9, THYR #### [facility] ([id number]) [address] [place] [address] 17786 Calcium [Mass/Vol] 10.1 mg/dL Normal 8.5-10.5 [facility] Comment on above: Performed By: #### C BCA, CMP, 50699-0, PINR, 00067-3, 15127-1, 29806-1, 51058-8, THYR #### [facility] ([id number]) [address] [place] [address] 93498 Chloride [Moles/Vol] 103 mmol/L Normal 98-109 [facility] Comment on above: Performed By: #### C BCA, CMP, 93979-1, PINR, 44111-8, 91986-6, 18533-7, 19851-5, THYR #### [facility] ([id number]) [address] [place] [address] 65696 CO2 [Moles/Vol] 24 mmol/L Normal 22-32 [facility] Comment on above: Performed By: #### C BCA, CMP, 78045-5, PINR, 96550-1, 70075-8, 23355-6, 26646-4, THYR #### [facility] ([id number]) [address] [place] [address] 69916 Creatinine [Mass/Vol] 1.18 mg/dL Normal 0.70-1.20 [facility] Comment on above: Result Comment: METH OD TRACEABLE TO IDMS STANDARD Performed By: #### C BCA, CMP, 10415-3, PINR, 81548-6, 56829-5, 63570-4, 92276-8, THYR #### [facility] ([id number]) [address] [place] [address] 84065 GFR/1.73 sq M.predicted among non-blacks MDRD (S/P/Bld) [Vol rate/Area] 78 mL/min/{1.73_m2} Normal >59 [facility] Comment on above: Result Comment: Reported eGFR is based on the CKD-EPI 2020 equation that does not use a race coefficient. Performed By: #### C BCA, CMP, 34294-1, PINR, 67001-2, 75697-5, 40867-0, 90347-6, THYR #### [facility] ([id number]) [address] [place] [address] [place] [address] Glucose [Mass/Vol] 86 mg/dL Normal 65-99 [facility] Comment on above: Performed By: #### C BCA, CMP, 90824-8, PINR, 55445-3, 13255-5, 69886-6, 52712-1, THYR #### [facility] ([id number]) [address] [place] [address] 03803 Potassium [Moles/Vol] 3.8 mmol/L Normal 3.5-5.0 [facility] Comment on above: Performed By: #### C BCA, CMP, 36935-7, PINR, 26440-9, 24699-8, 20778-3, 01657-3, THYR #### [facility] ([id number]) [address] [place] [address] 27120 Protein [Mass/Vol] 7.8 g/dL Normal 6.0-8.0 [facility] Comment on above: Performed By: #### C BCA, CMP, 40518-3, PINR, 47979-3, 57721-6, 53086-2, 96967-0, THYR #### [facility] ([id number]) [address] [place] [address] 33788 Sodium [Moles/Vol] 134 mmol/L Normal 134-146 [facility] Comment on above: Performed By: #### C BCA, CMP, 99280-7, PINR, 85743-8, 72673-9, 36757-2, 29100-8, THYR #### [facility] ([id number]) [address] [place] [address] 47174 Urea nitrogen [Mass/Vol] 16 mg/dL Normal 5-23 [facility] Comment on above: Performed By: #### C BCA, CMP, 48153-9, PINR, 93282-5, 02101-0, 09662-9, 02847-7, THYR #### [facility] ([id number]) [address] [place] [address] 61272 DRUG SCREEN, URINEon 024 AMPHETAMINE/METHAMP Negative Normal NEG [facility] Comment on above: Result Comment: AMPH /METH screening cut off = 1000 ng/mL Performed By: #### C BCA, CMP, 04628-3, PINR, 54701-3, 90617-1, 45722-8, 96395-1, THYR #### [facility] ([id number]) [address] [place] [address] 85872 BARBITURATES Negative Normal NEG [facility] Comment on above: Result Comment: Yen iturates screening cut off value = 200 ng/mL Performed By: #### C BCA, CMP, 59478-9, PINR, 17606-2, 83562-2, 31878-9, 46185-2, THYR #### [facility] ([id number]) [address] [place] [address] 54272 BENZODIAZEPINES Negative Normal NEG [facility] Comment on above: Result Comment: Carlos odiazepines screening cut off value = 200 ng/mL Performed By: #### C BCA, CMP, 31456-7, PINR, 51860-5, 28577-1, 98171-7, 47967-1, THYR #### [facility] ([id number]) [address] [place] [address] 07939 CANNABINOIDS Negative Normal [facility] Comment on above: Result Comment: Shirlene abinoids/THC screening cut off value = 50 ng/mL Performed By: #### C BCA, CMP, 57770-8, PINR, 62586-8, 09838-7, 15669-4, 22198-1, THYR #### [facility] ([id number]) [address] [place] [address] 46583 COCAINE METABOLITE Negative Normal NEG [facility] Comment on above: Result Comment: Coca ine screening cut off value = 300 ng/mL Performed By: #### C BCA, CMP, 58730-9, PINR, 76632-7, 57041-1, 35621-5, 57874-3, THYR #### [facility] ([id number]) [address] [place] [address] 67327 ECSTASY Negative Normal NEG [facility] Comment on above: Result Comment: Ecst asy screening cut off value = 500 ng/mL This report is intended for use in clinical monitoring or management of patients. Performed By: #### C BCA, CMP, 49602-0, PINR, 31149-0, 69085-5, 60807-5, 89741-4, THYR #### [facility] ([id number]) [address] [place] [address] [place] [address] METHADONE Negative Normal NEG [facility] Comment on above: Result Comment: Meth adone screening cut off value = 300 ng/mL. Performed By: #### C BCA, CMP, 70052-5, PINR, 10614-4, 29165-2, 95268-8, 49122-0, THYR #### [facility] ([id number]) [address] [place] [address] 04902 OPIATES Negative Normal NEG [facility] Comment on above: Result Comment: Opia yolande screening cut off value = 300 ng/mL NOTE: This test is used for the detection of codeine, hydrocodone (>1000 ng/mL), morphine and hydromorphone (>900 ng/mL) in urine. Performed By: #### C BCA, CMP, 13561-3, PINR, 85942-7, 74218-8, 33440-9, 71213-0, THYR #### [facility] ([id number]) [address] [place] [address] [place] [address] OXYCODONE Negative Normal NEG [facility] Comment on above: Result Comment: Oxyc odone screening cut off value = 300 ng/mL NOTE: This test is used for the detection of oxycodone and oxymorphone in urine. Performed By: #### C BCA, CMP, 54887-2, PINR, 73650-3, 34148-8, 01336-9, 61788-6, THYR #### [facility] ([id number]) [address] [place] [address] 33338 PHENCYCLIDINE Negative Normal NEG [facility] Comment on above: Result Comment: Phen cyclidine screening cut off value = 25 ng/mL Performed By: #### C MERCEDES ERIK, 51703-4, PINR, 45840-7, 36429-2, 82461-2, 16632-5, THYR #### [facility] ([id number]) [address] [place] [address]123 Fibrin D-dimer DDU (PPP) [Ma ss/Vol]on 06-01-2023 D DIMER <150 Normal <255 [facility] Comment on above: Result Comment: Results <255 ng/mL DDU: The presence of a VTE can safely be excluded with a negative D-Dimer result and Wells score. A negative result doesn't exclude the possibility of DIC. The test be repeated along with other diagnostic tests if the patient's symptoms persist or worsen. [email or web address] Performed By: #### C MERCEDES ERIK, 57997-2, PINR, 18611-7, 50468-5, 07091-6, 99128-9, THYR #### [facility] ([id number]) [address] [place] [address] 64984 Lead (BldV) [Mass/Vol]on LEAD, VENOUS 33.8 mcg/dL High <3.5 [facility] Comment on above: Result Comment: NOTE ADDITIONAL INFORMATION Testing performed by Inductively Coupled Plasma-Mass Spectrometry (ICP-MS). This test was developed and its performance characteristics determined by [facility] in a manner consistent with CLIA requirements. This test has not been cleared or approved by the U.S. Food and Drug Administration. Performed By: #### C ERIK LONG, 41805-5, PINR, 49662-3, 58393-7, 93388-5, 67739-1, THYR #### [facility] ([id number]) [address] [place] [address] [place] [address] MAGNESIUMon 06-01-2023 Magnesium [Mass/Vol] 2.1 mg/dL Normal 1.8-2.6 [facility] Comment on above: Performed By: #### C BCA, CMP, 72668-3, PINR, 39519-7, 08149-0, 33228-3, 38616-9, THYR #### [facility] ([id number]) [address] [place] [address] 83047 Natriuretic peptide B [Mass/ Vol]on 06-01-2023 BRN NATRIURETIC PEP <5 Normal <100.0 [facility] Comment on above: Performed By: #### C BCA, CMP, 49849-8, PINR, 25579-2, 58987-4, 49938-5, 55940-4, THYR #### [facility] ([id number]) [address] [place] [address] 62612 PROTIME AND INRon 06-01-2023 INR Coag (PPP) [Relative time] 1.1 {INR} Normal 0.8-1.1 [facility] Comment on above: Performed By: #### C BCA, CMP, 23392-3, PINR, 18291-6, 08040-7, 45433-3, 51735-7, THYR #### [facility] ([id number]) [address] [place] [address] 93036 PT Coag (PPP) [Time] 12.6 s Normal 9.8-13.2 [facility] Comment on above: Result Comment: NEW REFERENCE RANGE Performed By: #### C BCA, CMP, 14274-7, PINR, 52141-4, 88285-8, 19640-6, 92651-9, THYR #### [facility] ([id number]) [address] [place] [address] 30806 THYROID PROFILEon 06-01-2023 Free T4 [Mass/Vol] 0.88 ng/dL Normal 0.61-1.60 [facility] Comment on above: Performed By: #### C BCA, CMP, 18789-2, PINR, 50185-0, 51469-4, 10451-0, 46332-2, THYR #### [facility] ([id number]) [address] [place] [address] 85612 TSH 1.27 uIU/mL Normal 0.49-4.67 [facility] Comment on above: Performed By: #### C BCA, CMP, 91869-5, PINR, 57494-6, 38049-4, 34354-5, 73337-8, THYR #### [facility] ([id number]) [address] [place] [address] 73284 TROPONIN Ion 06-01-2023 Troponin I.cardiac [Mass/Vol] ng/mL Normal 0.00-0.04 [facility] Comment on above: Performed By: #### C BCA, CMP, 62905-0, PINR, 09561-3, 58557-8, 12945-1, 03683-0, THYR #### [facility] ([id number]) [address] [place] [address] 88617 URN MACROSCOPIC NURon 2023 BILIRUBIN FITO Negative Normal NEG [facility] Comment on above: Performed By: #### C BCA, CMP, 49895-9, PINR, 74869-2, 38151-8, 05290-1, 09283-2, THYR #### [facility] ([id number]) [address] [place] [address] 95509 BLOOD/HGB FITO Negative Normal NEG [facility] Comment on above: Performed By: #### C BCA, CMP, 41417-0, PINR, 46455-7, 84244-7, 25106-4, 68203-0, THYR #### [facility] ([id number]) [address] [place] [address] 68981 GLUCOSE FITO Negative Normal NEG [facility] Comment on above: Performed By: #### C BCA, CMP, 02020-0, PINR, 76013-5, 29335-9, 72648-0, 34714-2, THYR #### [facility] ([id number]) [address] [place] [address] 81952 KETONES FITO 40 mg/dL Abnormal NEG [facility] Comment on above: Performed By: #### C BCA, CMP, 95229-8, PINR, 66749-2, 28229-1, 45719-6, 94682-0, THYR #### [facility] ([id number]) [address] [place] [address] 95178 LEUKOCYTE ESTERASE FITO Negative Normal NEG [facility] Comment on above: Performed By: #### C BCA, CMP, 72818-1, PINR, 46392-1, 80628-5, 49471-6, 66166-6, THYR #### [facility] ([id number]) [address] [place] [address] 66211 NITRITE FITO Negative Normal NEG [facility] Comment on above: Performed By: #### C BCA, CMP, 30757-3, PINR, 20845-7, 48258-2, 02926-6, 83801-3, THYR #### [facility] ([id number]) [address] [place] [address] 20141 PH FITO 5.5 Normal 5.0-8.5 [facility] Comment on above: Performed By: #### C BCA, CMP, 49383-4, PINR, 76432-7, 33636-5, 08995-3, 19646-2, THYR #### [facility] ([id number]) [address] [place] [address] 48918 PROTEIN FITO Negative Normal NEG [facility] Comment on above: Performed By: #### C BCA, CMP, 03868-3, PINR, 56036-4, 93241-6, 12853-1, 73870-1, THYR #### [facility] ([id number]) [address] [place] [address] 50737 SPECIFIC GRAVITY FITO 1.025 Normal 1.003-1.035 [facility] Comment on above: Performed By: #### C BCA, CMP, 23422-6, PINR, 76970-9, 68980-3, 94006-0, 47659-5, THYR #### [facility] ([id number]) [address] [place] [address] 38605 UROBILINOGEN FITO 0.2 eu/dL Normal <1.1 [facility] Comment on above: Performed By: #### C BCA, CMP, 05893-9, PINR, 97252-4, 47174-5, 18916-9, 88897-3, THYR #### [facility] ([id number]) [address] [place] [address] 36530 XR CHEST 1 VWon 06-01-2023 XR CHEST [...] Pardo DO on 06/01/2023 3:32 PM Normal [facility] aPTT Coag (PPP) [Time]on aPTT Coag (Bld) [Time] 35 s Normal 26-37 [facility] Comment on above: Result Comment: NEW REFERENCE RANGE Performed By: #### C BCA, CMP, 29299-8, PINR, 83646-5, 05709-8, 85807-5, 41147-9, THYR #### [facility] ([id number]) [address] [place] [address], [place] [address] LEAD,ADULTon 09-05-2022 Lead, Blood (Adult) 45.4 ug/dL Invalid Interpretation Code 0.0-3.4 [facility] Comment on above: Result Comment: Test ing performed by Inductively coupled plasma/Mass Spectrometry. Verified by repeat analysis Analysis by inductively coupled plasma/mass spectrometry (ICP/MS) Environmental Exposure: WHO Recommendation <20.0 Occupational Exposure: OSHA Lead Std 40.0 CHAZ 30.0 . Detection Limit = 1.0 Performed By: #### L EADA #### [facility] [address] [place] [address] Dr. Rachel Cortez LEAD,ADULTon 09-01-2022 Lead, Blood (Adult) CLOTWB Normal [facility] Comment on above: Result Comment: Test not performed. Whole blood specimen partially or completely clotted. A common cause is insufficient mixing upon collection. Testing performed by Inductively coupled plasma/Mass Spectrometry. contacted Nohelia at your facility on 09-01-2022 Environmental Exposure: WHO Recommendation <20.0 Occupational Exposure: OSHA Lead Std 40.0 CHAZ 30.0 . Detection Limit = 1.0 Performed By: #### I NSULIN #### [facility] [address] [place] [address] Dr. Rachel Cortez LEAD,ADULTon 08-30-2022 Lead, Blood (Adult) CLOTWB Normal [facility] Comment on above: Result Comment: Test not performed. Whole blood specimen partially or completely clotted. A common cause is insufficient mixing upon collection. Testing performed by Inductively coupled plasma/Mass Spectrometry. contacted Taya at your facility on 08-30-2022 Environmental Exposure: WHO Recommendation <20.0 Occupational Exposure: OSHA Lead Std 40.0 CHAZ 30.0 . Detection Limit = 1.0 Performed By: #### L EADA #### [facility] [address] [place] [address] Dr. Rachel Cortez BNPon 08-29-2022 Natriuretic peptide B (Bld) [Mass/Vol] 10.0 pg/mL Normal <=450.0 [facility] Comment on above: Performed By: #### C MP, TSH, BNP #### [facility] [address] [place] [address] Dr. Rachel Cortez CBC AUTO DIFFon 08-29-2022 BASO # 0.0 103/ul Normal 0.0-0.1 [facility] Comment on above: Performed By: #### C BC #### [facility] [address] [place] [address] Dr. Rachel Cortez Basophils/100 WBC (Bld) 0.5 % Normal 0.2-2.0 [facility] Comment on above: Performed By: #### C BC #### [facility] [address] [place] [address] Dr. Rachel Cortez EO # 0.2 103/ul Normal 0.0-0.7 [facility] Comment on above: Performed By: #### C BC #### [facility] [address] [place] [address] Dr. Rachel Cortez Eosinophils/100 WBC (Bld) 2.7 % Normal 0.9-7.0 [facility] Comment on above: Performed By: #### C BC #### [facility] [address] [place] [address] Dr. Rachel Cortez Erythrocyte distribution width (RBC) [Ratio] 12.3 % Normal 11.0-15.0 [facility] Comment on above: Performed By: #### C BC #### [facility] [address] [place] [address] Dr. Rachel Cortez Hematocrit (Bld) [Volume fraction] 40.9 % Critically low 42.0-54.0 [facility] Comment on above: Performed By: #### C BC #### [facility] [address] [place] [address] Dr. Rachel Cortez Hemoglobin (Bld) [Mass/Vol] 13.9 g/dL Critically low 14.0-18.0 [facility] Comment on above: Performed By: #### C BC #### [facility] [address] [place] [address] Dr. Rachel Cortez IG # 0.02 10e3/ul Normal 0.00-0.03 [facility] Comment on above: Performed By: #### C BC #### [facility] [address] [place] [address] Dr. Rachel Cortez IG % 0.3 % Normal 0.0-0.5 [facility] Comment on above: Performed By: #### C BC #### [facility] [address] [place] [address] Dr. Rachel Cortez LYMPH # 1.6 103/ul Normal 1.2-3.8 [facility] Comment on above: Performed By: #### C BC #### [facility] [address] [place] [address] Dr. Rachel Cortez Lymphocytes/100 WBC (Bld) 21.2 % Normal 20.5-60.0 [facility] Comment on above: Performed By: #### C BC #### [facility] [address] [place] [address] Dr. Rachel Cortez MANUAL DIFF REQ NO Normal [facility] Comment on above: Performed By: #### C BC #### [facility] [address] [place] [address] Dr. Rachel Cortez MCH (RBC) [Entitic mass] 30.3 pg Normal 25.9-34.0 [facility] Comment on above: Performed By: #### C BC #### [facility] [address] [place] [address] Dr. Rachel Cortez MCHC (RBC) [Mass/Vol] 34.0 g/dL Normal 29.9-35.2 [facility] Comment on above: Performed By: #### C BC #### [facility] [address] [place] [address] Dr. Rachel Cortez MCV (RBC) [Entitic vol] 89.3 fL Normal 80.0-94.0 [facility] Comment on above: Performed By: #### C BC #### [facility] [address] [address] [address] Rachel Cortez MONO # 0.6 103/ul Normal 0.3-0.8 [facility] Comment on above: Performed By: #### C BC #### [facility] [address] [address] [address] Rachel Cortez Monocytes/100 WBC (Bld) 8.6 % Normal 1.7-12.0 [facility] Comment on above: Performed By: #### C BC #### [facility] [address] [place] [address] Dr. Rachel Cortez NEUT # 5.0 103/ul Normal 1.4-6.5 [facility] Comment on above: Performed By: #### C BC #### [facility] [address] [place] [address] Dr. Rachel Cortez Neutrophils/100 WBC (Bld) 66.7 % Normal 43.0-75.0 [facility] Comment on above: Performed By: #### C BC #### [facility] [address] [place] [address] Dr. Rachel Cortez Platelet mean volume (Bld) [Entitic vol] 10.2 fL Normal 9.5-13.5 [facility] Comment on above: Performed By: #### C BC #### [facility] [address] [place] [address] Dr. Rachel Cortez PLT 198 103/ul Normal 150-450 [facility] Comment on above: Performed By: #### C BC #### [facility] [address] [place] [address] Dr. Rachel Cortez RBC 4.58 106/ul Critically low 4.70-6.10 [facility] Comment on above: Performed By: #### C BC #### [facility] [address] [place] [address] Dr. Rachel Cortez WBC 7.5 103/ul Normal 4.0-11.0 [facility] Comment on above: Performed By: #### C BC #### [facility] [address] [place] [address] Dr. Rachel Cortez FREE T4on 08-29-2022 Free T4 [Mass/Vol] 0.84 ng/dL Normal 0.76-1.46 [facility] Comment on above: Performed By: #### I KANDIS, FT4 #### [facility] [address] [place] [address] Dr. Rachel Cortez IRONon 08-29-2022 Iron [Mass/Vol] 86.0 ug/dL Normal 65.0-175.0 [facility] Comment on above: Performed By: #### I KANDIS FT4 #### [facility] [address] [place] [address] Dr. Rachel Cortez PROF 14(COMP METB)on 023 Albumin [Mass/Vol] 4.0 g/dL Normal 3.4-5.0 [facility] Comment on above: Performed By: #### C MP, TSH, BNP #### [facility] [address] [place] [address] Dr. Rachel Cortez Albumin/Globulin [Mass ratio] 1.2 {ratio} Normal [facility] Comment on above: Performed By: #### C MP, TSH, BNP #### [facility] [address] [place] [address] Dr. Rachel Cortez ALP [Catalytic activity/Vol] 103 U/L Normal 46-116 [facility] Comment on above: Performed By: #### C MP, TSH, BNP #### [facility] [address] [place] [address] Dr. Rachel Cortez ALT [Catalytic activity/Vol] 39 U/L Normal 16-63 [facility] Comment on above: Performed By: #### C MP, TSH, BNP #### [facility] [address] [place] [address] Dr. Rachel Cortez Anion gap [Moles/Vol] 10.2 mmol/L Normal [facility] Comment on above: Performed By: #### C MP, TSH, BNP #### [facility] [address] [place] [address] Dr. Rachel Cortez AST [Catalytic activity/Vol] 20 U/L Normal 15-37 [facility] Comment on above: Performed By: #### C MP, TSH, BNP #### [facility] [address] [place] [address] Dr. Rachel Cortez Bilirubin [Mass/Vol] 0.3 mg/dL Normal 0.2-1.0 [facility] Comment on above: Performed By: #### C MP, TSH, BNP #### [facility] [address] [place] [address] Dr. Rachel Cortez Calcium [Mass/Vol] 9.8 mg/dL Normal 8.5-10.1 [facility] Comment on above: Performed By: #### C MP, TSH, BNP #### [facility] [address] [place] [address] Dr. Rachel Cortez Chloride [Moles/Vol] 105 mmol/L Normal 98-107 [facility] Comment on above: Performed By: #### C MP, TSH, BNP #### [facility] [address] [place] [address] Dr. Rachel Cortez CO2 [Moles/Vol] 29.9 mmol/L Normal 21.0-32.0 [facility] Comment on above: Performed By: #### C MP, TSH, BNP #### [facility] [address] [place] [address] Dr. Rachel Cortez Creatinine [Mass/Vol] 1.19 mg/dL Normal 0.70-1.30 [facility] Comment on above: Performed By: #### C MP, TSH, BNP #### [facility] [address] [place] [address] Dr. Rachel Cortez EGFR-AF BAHRAINI >60 Normal >=60 [facility] Comment on above: Performed By: #### C MP, TSH, BNP #### [facility] [address] [place] [address] Dr. Rachel Cortez EGFR-NON AF BAHRAINI >60 Normal >=60 [facility] Comment on above: Performed By: #### C MP, TSH, BNP #### [facility] [address] [place] [address] Dr. Rachel Cortez Globulin (S) [Mass/Vol] 3.4 g/dL Normal [facility] Comment on above: Performed By: #### C MP, TSH, BNP #### [facility] [address] [place] [address] Dr. Rachel Cortez Glucose [Mass/Vol] 105 mg/dL Normal 74-106 [facility] Comment on above: Performed By: #### C MP, TSH, BNP #### [facility] [address] [place] [address] Dr. Rachel Cortez Potassium [Moles/Vol] 4.1 mmol/L Normal 3.5-5.1 [facility] Comment on above: Performed By: #### C MP, TSH, BNP #### [facility] [address] [place] [address] Dr. Rachel Cortez Protein [Mass/Vol] 7.4 g/dL Normal 6.4-8.2 [facility] Comment on above: Performed By: #### C MP, TSH, BNP #### [facility] [address] [place] [address] Dr. Rachel Cortez Sodium [Moles/Vol] 141 mmol/L Normal 136-145 [facility] Comment on above: Performed By: #### C MP, TSH, BNP #### [facility] [address] [place] [address] Dr. Rachel Cortez Urea nitrogen [Mass/Vol] 16.0 mg/dL Normal 7.0-18.0 [facility] Comment on above: Performed By: #### C MP, TSH, BNP #### [facility] [address] [place] [address] Dr. Rachel Cortez Urea nitrogen/Creatinine [Mass ratio] 13.4 mg/mg Normal [facility] Comment on above: Performed By: #### C MP, TSH, BNP #### [facility] [address] [place] [address] Dr. Rachel Cortez TSHon 08-29-2022 TSH 0.978 uIU/mL Normal 0.358-3.740 [facility] Comment on above: Performed By: #### I NSULIN #### [facility] [address] [address] [address] FACIAL BONES WO [...] WILFRID CAMARENA Date: 2022-08-11 18:30 Normal [facility] CT HEAD WO CONon 08-11-2022 CT HEAD [...] MARLYS MUNOZ Date: 2022-08-11 19:49 Normal [facility] INSULINon 05-09-2022 Insulin 9.9 uIU/mL Normal 2.6-24.9 [facility] Comment on above: Performed By: #### I NSULIN #### [facility] [address] [address] [address] Rachel Cortez CBC AUTO DIFFon 05-07-2022 BASO # 0.1 103/ul Normal 0.0-0.1 [facility] Comment on above: Performed By: #### I NSULIN #### [facility] [address] [address] [address] Rachel Cortez Basophils/100 WBC (Bld) 0.7 % Normal 0.2-2.0 [facility] Comment on above: Performed By: #### I NSULIN #### [facility] [address] [place] [address] Dr. Rachel Cortez EO # 0.0 103/ul Normal 0.0-0.7 [facility] Comment on above: Performed By: #### I NSULIN #### [facility] [address] [place] [address] Dr. Rachel Cortez Eosinophils/100 WBC (Bld) 0.1 % Critically low 0.9-7.0 [facility] Comment on above: Performed By: #### I NSULIN #### [facility] [address] [place] [address] Dr. Rachel Cortez Erythrocyte distribution width (RBC) [Ratio] 12.2 % Normal 11.0-15.0 [facility] Comment on above: Performed By: #### I NSULIN #### [facility] [address] [place] [address] Dr. Rachel Cortez Hematocrit (Bld) [Volume fraction] 41.1 % Critically low 42.0-54.0 [facility] Comment on above: Performed By: #### I NSULIN #### [facility] [address] [place] [address] Dr. Rachel Cortez Hemoglobin (Bld) [Mass/Vol] 14.1 g/dL Normal 14.0-18.0 [facility] Comment on above: Performed By: #### I NSULIN #### [facility] [address] [address] [address] Rachel Cortez IG # 0.03 10e3/ul Normal 0.00-0.03 [facility] Comment on above: Performed By: #### I NSULIN #### [facility] [address] [place] [address] Dr. Rachel Cortez IG % 0.4 % Normal 0.0-0.5 [facility] Comment on above: Performed By: #### I NSULIN #### [facility] [address] [place] [address] Dr. Rachel Cortez LYMPH # 2.3 103/ul Normal 1.2-3.8 [facility] Comment on above: Performed By: #### I NSULIN #### [facility] [address] [place] [address] Dr. Rachel Cortez Lymphocytes/100 WBC (Bld) 30.8 % Normal 20.5-60.0 [facility] Comment on above: Performed By: #### I NSULIN #### [facility] [address] [place] [address] Dr. Rachel Cortez MANUAL DIFF REQ NO Normal [facility] Comment on above: Performed By: #### I NSULIN #### [facility] [address] [place] [address] Dr. Rachel Cortez MCH (RBC) [Entitic mass] 29.9 pg Normal 25.9-34.0 [facility] Comment on above: Performed By: #### I NSULIN #### [facility] [address] [place] [address] Dr. Rachel Cortez MCHC (RBC) [Mass/Vol] 34.3 g/dL Normal 29.9-35.2 [facility] Comment on above: Performed By: #### I NSULIN #### [facility] [address] [place] [address] Dr. Rachel Cortez MCV (RBC) [Entitic vol] 87.3 fL Normal 80.0-94.0 [facility] Comment on above: Performed By: #### I NSULIN #### [facility] [address] [address] [address] Rachel Cortez MONO # 0.7 103/ul Normal 0.3-0.8 [facility] Comment on above: Performed By: #### I NSULIN #### [facility] [address] [address] [address] Rachel Cortez Monocytes/100 WBC (Bld) 8.9 % Normal 1.7-12.0 [facility] Comment on above: Performed By: #### I NSULIN #### [facility] [address] [place] [address] Dr. Rachel Cortez NEUT # 4.3 103/ul Normal 1.4-6.5 [facility] Comment on above: Performed By: #### I NSULIN #### [facility] [address] [place] [address] Dr. Rachel Cortez Neutrophils/100 WBC (Bld) 59.1 % Normal 43.0-75.0 [facility] Comment on above: Performed By: #### I NSULIN #### [facility] [address] [place] [address] Dr. Rachel Cortez Platelet mean volume (Bld) [Entitic vol] 9.9 fL Normal 9.5-13.5 [facility] Comment on above: Performed By: #### I NSULIN #### [facility] [address] [place] [address] Dr. Rachel Cortez PLT 184 103/ul Normal 150-450 [facility] Comment on above: Performed By: #### I NSULIN #### [facility] [address] [place] [address] Dr. Rachel Cortez RBC 4.71 106/ul Normal 4.70-6.10 [facility] Comment on above: Performed By: #### I NSULIN #### [facility] [address] [address] [address] Rachel Cortez WBC 7.3 103/ul Normal 4.0-11.0 [facility] Comment on above: Performed By: #### I NSULIN #### [facility] [address] [place] [address] Dr. Rachel Cortez CULTURE URINEon 05-07-2022 CULTURE URINE Culture Observations: LIGHT GROWTH OF MIXED SKIN NILES. NO POTENTIAL PATHOGENS SEEN. Normal [facility] Comment on above: Performed By: #### I NSULIN #### [facility] [address] [place] [address] Dr. Rachel Cortez FREE THYROXINE INDEX T7on FTI 2.07 Normal 1.30-4.50 [facility] Comment on above: Performed By: #### I NSULIN #### [facility] [address] [place] [address] Dr. Rachel Cortez T3U 35.0 % Normal 33.0-40.0 [facility] Comment on above: Performed By: #### I NSULIN #### [facility] [address] [place] [address] Dr. Rachel Cortez T4 [Mass/Vol] 5.90 ug/dL Normal 4.50-12.10 [facility] Comment on above: Performed By: #### I NSULIN #### [facility] [address] [place] [address] Dr. Rachel Cortez GLYCOHEMOGLOBIN A1Con 2022 ADA RECOMMENDATION SEE BELOW Normal [facility] Comment on above: Result Comment: ADA RECOMMENDED LIMIT 4.0 - 6.0 ADA THERAPEUTIC TARGET < 7.0 ACTION SUGGESTED > 7.0 Performed By: #### A 1C #### [facility] [address] [place] [address] Dr. Rachel Cortez Glucose [Mass/Vol] 100 mg/dL Normal [facility] Comment on above: Performed By: #### A 1C #### [facility] [address] [place] [address] Dr. Rachel Cortez HbA1c (Bld) [Mass fraction] 5.1 % Normal 4.5-6.2 [facility] Comment on above: Performed By: #### A 1C #### [facility] [address] [place] [address] Dr. Rachel Cortez IRONon 01-14-2023 Iron [Mass/Vol] 104.0 ug/dL Normal 65.0-175.0 [facility] Comment on above: Performed By: #### I NSULIN #### [facility] [address] [address] [address] Rachel Cortez LIPID PROFILEon 05-07-2022 CHOL-HDL RATIO NORM SEE BELOW Normal [facility] Comment on above: Result Comment: 3.3 - 4.4 LOW RISK 4.4 - 7.1 AVERAGE RISK 7.1 - 11.0 MODERATE RISK >11.0 HIGH RISK Performed By: #### C MP, LIPID #### [facility] [address] [address] [address] Rachel Cortez Cholesterol [Mass/Vol] 147 mg/dL Normal <=200 [facility] Comment on above: Performed By: #### C MP, LIPID #### [facility] [address] [address] [address] Rachel Cortez Cholesterol in HDL [Mass/Vol] 56 mg/dL Normal 40-60 [facility] Comment on above: Performed By: #### C MP, LIPID #### [facility] [address] [address] [address] Rachel Cortez Cholesterol in LDL [Mass/Vol] 77.8 mg/dL Normal [facility] Comment on above: Performed By: #### C MP, LIPID #### [facility] [address] [address] [address] Rachel Cortez Cholesterol.total/Ch olesterol in HDL [Mass ratio] 2.6 {ratio} Normal [facility] Comment on above: Performed By: #### C MP, LIPID #### [facility] [address] [address] [address] Rachel Cortez HDL NORMAL > or = 60 mg/dl - LOW CARDIOVASCULAR RISK <40 mg/dl - HIGH CARDIOVASCULAR RISK Normal [facility] Comment on above: Performed By: #### C MP, LIPID #### [facility] [address] [address] [address] Rachel Cortez LDL CALC NORMAL SEE BELOW Normal [facility] Comment on above: Result Comment: <100 mg/dl OPTIMAL 100 - 129 mg/dl NEAR OR ABOVE OPTIMAL 130 - 159 mg/dl BORDERLINE HIGH 160 - 189 mg/dl HIGH >190 mg/dl VERY HIGH Performed By: #### C MP, LIPID #### [facility] [address] [place] [address] Dr. Rachel Cortez Triglyceride [Mass/Vol] 66 mg/dL Normal <=150 [facility] Comment on above: Performed By: #### C MP, LIPID #### [facility] [address] [place] [address] Dr. Rachel Cortez VLDL CALC 13.2 mg/dL Normal [facility] Comment on above: Performed By: #### C MP, LIPID #### [facility] [address] [place] [address] Dr. Rachel Cortez PROF 14(COMP METB)on 023 Albumin [Mass/Vol] 4.0 g/dL Normal 3.4-5.0 [facility] Comment on above: Performed By: #### C MP, LIPID #### [facility] [address] [place] [address] Dr. Rachel Cortez Albumin/Globulin [Mass ratio] 1.3 {ratio} Normal [facility] Comment on above: Performed By: #### C MP, LIPID #### [facility] [address] [place] [address] Dr. Rachel Cortez ALP [Catalytic activity/Vol] 86 U/L Normal 46-116 [facility] Comment on above: Performed By: #### C MP, LIPID #### [facility] [address] [place] [address] Dr. Rachel Cortez ALT [Catalytic activity/Vol] 35 U/L Normal 16-63 [facility] Comment on above: Performed By: #### C MP, LIPID #### [facility] [address] [place] [address] Dr. Rachel Cortez Anion gap [Moles/Vol] 9.9 mmol/L Normal [facility] Comment on above: Performed By: #### C MP, LIPID #### [facility] [address] [place] [address] Dr. Rachel Cortez AST [Catalytic activity/Vol] 22 U/L Normal 15-37 [facility] Comment on above: Performed By: #### C MP, LIPID #### [facility] [address] [place] [address] Dr. Rachel Cortez Bilirubin [Mass/Vol] 0.4 mg/dL Normal 0.2-1.0 [facility] Comment on above: Performed By: #### C MP, LIPID #### [facility] [address] [place] [address] Dr. Rachel Cortez Calcium [Mass/Vol] 10.1 mg/dL Normal 8.5-10.1 [facility] Comment on above: Performed By: #### C MP, LIPID #### [facility] [address] [place] [address] Dr. Rachel Cortez Chloride [Moles/Vol] 107 mmol/L Normal 98-107 [facility] Comment on above: Performed By: #### C MP, LIPID #### [facility] [address] [place] [address] Dr. Rachel Cortez CO2 [Moles/Vol] 30.0 mmol/L Normal 21.0-32.0 [facility] Comment on above: Performed By: #### C MP, LIPID #### [facility] [address] [place] [address] Dr. Rachel Cortez Creatinine [Mass/Vol] 1.16 mg/dL Normal 0.70-1.30 [facility] Comment on above: Performed By: #### C MP, LIPID #### [facility] [address] [place] [address] Dr. Rachel Cortez EGFR-AF BAHRAINI >60 Normal >=60 [facility] Comment on above: Performed By: #### C MP, LIPID #### [facility] [address] [place] [address] Dr. Rachel Cortez EGFR-NON AF BAHRAINI >60 Normal >=60 [facility] Comment on above: Performed By: #### C MP, LIPID #### [facility] [address] [place] [address] Dr. Rachel Cortez Globulin (S) [Mass/Vol] 3.0 g/dL Normal [facility] Comment on above: Performed By: #### C MP, LIPID #### [facility] [address] [place] [address] Dr. Rachel Cortez Glucose [Mass/Vol] 88 mg/dL Normal 74-106 [facility] Comment on above: Performed By: #### C MP, LIPID #### [facility] [address] [place] [address] Dr. Rachel Cortez Potassium [Moles/Vol] 3.9 mmol/L Normal 3.5-5.1 [facility] Comment on above: Performed By: #### C MP, LIPID #### [facility] [address] [place] [address] Dr. Rachel Cortez Protein [Mass/Vol] 7.0 g/dL Normal 6.4-8.2 [facility] Comment on above: Performed By: #### C MP, LIPID #### [facility] [address] [place] [address] Dr. Rachel Cortez Sodium [Moles/Vol] 143 mmol/L Normal 136-145 [facility] Comment on above: Performed By: #### C MP, LIPID #### [facility] [address] [place] [address] Dr. Rachel Cortez Urea nitrogen [Mass/Vol] 16.0 mg/dL Normal 7.0-18.0 [facility] Comment on above: Performed By: #### C MP, LIPID #### [facility] [address] [place] [address] Dr. Rachel Cortez Urea nitrogen/Creatinine [Mass ratio] 13.8 mg/mg Normal [facility] Comment on above: Performed By: #### C MP, LIPID #### [facility] [address] [place] [address] Dr. Rachel Cortez TSHon 05-07-2022 TSH 2.417 uIU/mL Normal 0.358-3.740 [facility] Comment on above: Performed By: #### I NSULIN #### [facility] [address] [place] [address] Dr. Rachel Cortez UA RANDOM W/MICROSCOPICon BACTERIA NONE SEEN Normal NONE SEEN [facility] Comment on above: Performed By: #### I NSULIN #### [facility] [address] [place] [address] Dr. Rachel Cortez Bilirubin Ql (U) Negative Normal NEGATIVE [facility] Comment on above: Performed By: #### I NSULIN #### [facility] [address] [place] [address] Dr. Rachel Cortez CAST NONE SEEN Normal NONE SEEN [facility] Comment on above: Performed By: #### I NSULIN #### [facility] [address] [place] [address] Dr. Rachel Cortez Clarity (U) CLEAR Normal CLEAR [facility] Comment on above: Performed By: #### I NSULIN #### [facility] [address] [place] [address] Dr. Rachel Cortez Color (U) YELLOW Normal YELLOW [facility] Comment on above: Performed By: #### I NSULIN #### [facility] [address] [place] [address] Dr. Rachel Cortez Crystals LM Nom (Urine sed) NONE SEEN Normal NONE SEEN [facility] Comment on above: Performed By: #### I NSULIN #### [facility] [address] [place] [address] Dr. Rachel Cortez Epithelial cells LM Ql (Urine sed) NONE SEEN Normal NONE SEEN /RARE [facility] Comment on above: Performed By: #### I NSULIN #### [facility] [address] [place] [address] Dr. Rachel Cortez Glucose Ql (U) Negative Normal NEGATIVE [facility] Comment on above: Performed By: #### I NSULIN #### [facility] [address] [place] [address] Dr. Rachel Cortez Hemoglobin Ql (U) Negative Normal NEGATIVE [facility] Comment on above: Performed By: #### I NSULIN #### [facility] [address] [place] [address] Dr. Rachel Cortez Ketones Ql (U) Negative Normal NEGATIVE [facility] Comment on above: Performed By: #### I NSULIN #### [facility] [address] [place] [address] Dr. Rachel Cortez LEUKOCYTES Negative Normal NEGATIVE [facility] Comment on above: Performed By: #### I NSULIN #### [facility] [address] [place] [address] Dr. Rachel Cortez MUCOUS MODERATE Abnormal NONE SEEN [facility] Comment on above: Performed By: #### I NSULIN #### [facility] [address] [place] [address] Dr. Rachel Cortez Nitrite Ql (U) Negative Normal NEGATIVE [facility] Comment on above: Performed By: #### I NSULIN #### [facility] [address] [place] [address] Dr. Rachel Cortez pH (U) 6.0 [pH] Normal 5-9 [facility] Comment on above: Performed By: #### I NSULIN #### [facility] [address] [place] [address] Dr. Rachel Cortez RBC NONE SEEN Abnormal 0-2 [facility] Comment on above: Performed By: #### I NSULIN #### [facility] [address] [place] [address] Dr. Rachel Cortez SPEC GRAVITY 1.030 Abnormal 1.005-<=1.025 [facility] Comment on above: Performed By: #### I NSULIN #### [facility] [address] [place] [address] Dr. Rachel Cortez UA PROTEIN Negative Normal NEGATIVE/ TRACE [facility] Comment on above: Performed By: #### I NSULIN #### [facility] [address] [place] [address] Dr. Rachel Cortez Urobilinogen Qn (U) 1.0 {Colby'U}/dL Normal 0.2 - 1. 0 [facility] Comment on above: Performed By: #### I NSULIN #### [facility] [address] [place] [address] Dr. Rachel Cortez WBC NONE SEEN Normal NONE SEEN [facility] Comment on above: Performed By: #### I NSULIN #### [facility] [address] [address] [address] Rachel Cortez XR LSPINE MIN 4 [...] by: MARINA MAIN Date: 2022-05-06 16:40 Normal [facility] Coding Summary.on 03-31-2020 Coding Summary. CODING DATE: 03/31/2020 FINAL [facility] STATUS: Home (Routine DC) PAYOR: Self [...] Barajas Date Saved: 03/31/2020 08:22 am Normal [facility] Consent for Treatmenton Consent for Treatment [id number] #1.00CD:127 Normal [facility] Discharge Instructionson Discharge Instructions [id number] 6#1.00CD:127 Normal [facility] ED Clinical Summaryon 2019 ED Clinical Summary [address] [address] ED Clinical Summary Person Information Name: YAMILET WHITAKER [place] Age: 39 Years : 1980 Sex: Male Language: Swedish PCP: Irena Gardner MD Marital Status: Single [...] 03/30/2020 14:05:58 03/30/2020 14:05:58 03/30/2020 14:05:58 ADDRESS: [address] [place] [id number] [facility] DOC NOTES: MEDICAL INFORMATION: Prescriptions Given: New Medications Printed Prescriptions acetaminophen-hydroc odone ([place] 325 mg-5 mg oral tablet) 1 Tablets [...] Follow up: With: Address: When: Irena Gardner [address] [place] [address], [place] [address] Business (1) In 3 days 04/02/2020 DIAGNOSIS: Lumbar strain Normal [facility] ED Note-Physicianon 03-30-20 20 ED Note-Physician Basic Information Time Seen: Darrick Gibbs PA-C 03/30/2020 11:47 Chief Complaint Pt. presents to the ed with c/o left lower back pain that started last night while laying in bed. 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 History of Present Illness 39-year-old male comes [...] and follow-up recommendations Discharge Prescription List Prescriptions [place] 325 mg-5 mg oral tablet, 1 tab(s), Oral, q6hr, PRN predniSONE 20 mg Tab, 60 mg= 3 tab(s), Oral, Daily Robaxin-750 oral tablet, 1500 mg= 2 tab(s), Oral, TID Follow-up With When Contact Information Irena Gardner In 3 days 04/02/2020 [place] [address]- Business (1) Additional Instructions: Patient Education Lumbosacral Strain Attestation Patient seen and evaluated by the physician shop assistant. Attending physician was present in the emergency department and supervised care. This report was transcribed using voice recognition software. Every effort was made to ensure accuracy, however, inadvertently computerized site leasing agent mistakes may be present. Appropriate healthcare PPE [...] oral syrup, 5 mL, Oral, QID, PRN [place] 325 mg-5 mg oral tablet, 1 tab(s), [...] abnormality Read By: Darrick Gibbs PA-C Normal [facility] Comment on above: Result Comment: Elec tronically [...] Document Reviewed: 11/27/2013 ExitCare? Patient Information ?2015 navigaya. This information is not intended to replace advice given to you by your health care provider. Make sure you discuss any questions you have with your health care provider. Normal [facility] ED Patient Summaryon 020 ED Patient Summary [address] [address] Patient Discharge Instructions Person Information Name: YAMILET WHITAKER Age: 39 Years Arrival Date: 03/30/2020 11:37:37 Discharge Diagnosis: Lumbar strain Primary Care Physician: Irena Gardner MD Provider Information Primary Provider: Shaun Tomlinson DO Advanced Marketing Officer:Darrick Gibbs PA-C The exam and treatment you received in the Emergency Department were for an urgent problem and are not intended as complete care. It is important that you follow up with a doctor, nurse practitioner, or physician?s shop assistant for ongoing care. If your symptoms [...] Follow-up Instructions: With: Address: When: Irena Gardner [address] [place] [address], [place] [address] Business (1) In 3 days 04/02/2020 In the event that this physician does not participate in your insurance network, please consult with your insurance company to find a nearby participating provider. Patient Education Materials: Lumbosacral Strain A MESSAGE TO ALL PATIENTS REGARDING OPIOIDS PRESCRIPTION OPIOIDS: WHAT YOU NEED TO KNOW Prescription opioids can be used to help relieve ebwnvmpk-tw-porrde pain and are often prescribed following a [...] be struggling with addiction, tell your health pediatric critical care nurse and ask for guidance or call [employer]?S National Helpline at 4-631-110-HELP. v Source: [place] Department of Health and Human Services/Center for Disease Control & Prevention [facility] Medications Given: Medication Dose Route orphenadrine 60.00 mg IntraMuscular Left Gluteus Medius acetaminophen-oxycod one 1.00 tab(s) Oral Medication Information: New Medications Printed Prescriptions acetaminophen-hydroc odone ([place] 325 mg-5 mg oral tablet) 1 Tablets [...] Comment: Pharmacy Information: Thank you for choosing [facility] Patient Education Materials: Lumbosacral [...] Document Reviewed: 11/27/2013 ExitCare? Patient Information ?2015 navigaya. This information is not intended to replace advice given to you by your health care provider. Make sure you discuss any questions you have with your health care provider. IJULIANNE BRIAN S , have received the following patient education materials/instructio ns and have verbalized understanding: Patient Education Materials: Lumbosacral Strain Follow-up Instructions: With: Address: When: Irena Gardner [address] [place] [address], [address] [place] [address] Business (1) In 3 days 04/02/2020 Patient Signature Date Clinician/Nurse Signature Date 03/30/2020 14:06:00 [facility] Prescriptions/Work Noteson 1 05-31-2019 Prescriptions/Work Notes [id number] 2#1.00CD:127 [facility] XR Spine Lumbosacral 2 or 3 Viewson [...] Mullen M.D. Transcribed by: caleb Technologist: MIGUEL [facility] Encounters Encounter Date Encounter Type Care Provider Facility Start: 06-02-2023 End: 06-03-2023 [facility] Start: 06-01-2023 End: 06-03-2023 Emergency department patient visit MAINE FERGUSON [facility] Start: 06-01-2023 End: 06-02-2023 ambulatory IRENA GARDNER [facility] Start: 09-01-2022 End: 09-02-[address] IRENA [...] above: Performed By: #### L EADA #### [facility] [address] [place] [address] Dr. Rachel Cortez Payers Date Payer Category Payer Unknown [id number] 2.16.84 [id number] 1980 Unknown [id number] 2.16.84 [id number] 1980 Unknown [id number] 2.16.84 [id number] 1980 Unknown [id number] .16.84 [id number] 1980 Unknown [id number] 2.16.84 [id number] 1980 Unknown [id number] 2.16.84 [id number] 1980 Unknown [id number] 2.16.8 [id number] 1980 Unknown [id number] 2.16.8 [id number] 1980 Unknown [id number] 2.16.8 [id number] 1961 Unknown [id number] Summary Purpose Family History No Family History Records FoundNo Family History Records FoundNo Family History Records Found Advance Directives No Advanced Directives Records FoundNo Advanced Directives Records FoundNo Advanced Directives Records Found Additional Source Comments (unrecognized sect ion and content) No Status Records FoundNo Status Records FoundNo Status Records Found INFORMATION SOURCE (unrecogn ized section and content) DATE CREATED AUTHOR 03/31/2020 [facility] DATE CREATED AUTHOR AUTHOR'S ORGANIZ ATION 09/05/2022 [facility] DATE CREATED AUTHOR AUTHOR'S ORGANIZ ATION 06/05/2023 [facility] FOR RECORDS PERTAINING TO PATIENTS WHO [...] BE BASED ON THE PRIMARY CLINICAL RECORDS. [facility]. provides no warranty or guarantee of the accuracy or completeness of information in this document.
[2023-07-12 14:37] LABS: Basophils Percent Auto 0.7 % (0.2-2.0); Eosinophils Percent Auto 0.9 % (0.9-7.0); Hematocrit 42.6 % (42.0-54.0); Hemoglobin 14.6 g/dL (14.0-18.0); Immature Granulocytes Abs Auto 0.01 10^3/uL (0.00-0.03); Immature Granulocytes Pct Auto 0.2 % (0.0-0.5); Lymphocytes Absolute Auto 1.3 10^3/uL (1.2-3.8); Lymphocytes Percent Auto 28.7 % (20.5-60.0); Mean Corpuscular HGB Conc 34.3 g/dL (29.9-35.2); Mean Corpuscular Hemoglobin 30.4 pg (25.9-34.0); Mean Corpuscular Volume 88.6 fL (80.0-94.0); Mean Platelet Volume 9.7 fL (9.5-13.5); Monocytes Absolute Auto 0.5 10^3/uL (0.3-0.8); Monocytes Percent Auto 11.5 % (1.7-12.0); Neutrophils Absolute Auto 2.6 10^3/uL (1.4-6.5); Platelet Count 162 10^3/uL (150-450); Red Blood Count 4.81 10^6/uL (4.70-6.10); Red Cell Distribution Width 12.1 % (11.0-15.0); White Blood Count 4.4 10^3/uL (4.0-11.0)
[2023-07-12 15:04] LABS: Alanine Aminotransferase 49 U/L (16-63); Albumin Globulin Ratio 1.3; Alkaline Phosphatase 84 U/L (46-116); Anion Gap 13.5; Aspartate Amino Transferase 24 U/L (15-37); BUN Creatinine Ratio 13.6; Bilirubin Total 0.5 mg/dL (0.2-1.0); Calcium 10.1 mg/dL (8.5-10.1); Carbon Dioxide 27.7 mmol/L (21.0-32.0); Chloride 100 mmol/L (98-107); Estimated GFR (African America >60 (>=60); Estimated GFR (Non-African Ame >60 (>=60); Globulin 3.1 g/dL; Glucose 96 mg/dL (74-106); Potassium 4.2 mmol/L (3.5-5.1); Sodium 137 mmol/L (136-145); Thyroid Stimulating Hormone 1.787 uIU/mL (0.358-3.740); Total Protein 7.1 g/dL (6.4-8.2); Troponin I High Sensitivity <4.0 pg/mL (4.0-76.1)
[2023-07-12 16:05] LABS: Troponin I High Sensitivity 4.4 pg/mL (4.0-76.1)
--- NOTE | 2023-07-12 17:30 | ECG_ITS ---
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
== END 2023-07-12 16:26 | disposition home or self-care (01) ==
PROVIDERS: Physician Assistant; Emergency Provider Emergency Medicine; PCP Family Medicine
DX: R07.9 Chest pain, unspecified (principal); I48.91 Unspecified atrial fibrillation; Z79.01 Long term (current) use of anticoagulants; Z79.82 Long term (current) use of aspirin; Z79.899 Other long term (current) drug therapy; R10.32 Left lower quadrant pain
CPT/HCPCS: 36415; 71045; 74177; 80053; 84443; 84484; 85025; 93005; 99284; Q9967

== ENCOUNTER 2023-07-26 16:56 | Outpatient (RCR) | payer OTHER, SELFPAY ==
[2023-07-29 01:07] LABS: Lead, Blood (Adult) 24.5 ug/dL (0.0-3.4)
== END 2023-08-22 18:19 | disposition home or self-care (01) ==
LOC: LAB 16:56
PROVIDERS: PCP Family Medicine; Visit Provider Nurse Practitioner Family
DX: T56.0X1A 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, accidental (unintentional), initial encounter (principal)
CPT/HCPCS: 36415; 83655

== ENCOUNTER 2023-08-02 11:51 | Outpatient (OUT) | payer OTHER, SELFPAY | END 2023-08-02 11:52 | disposition home or self-care (01) | LOC: LAB 11:51 | PROVIDERS: PCP Family Medicine; Visit Provider Nurse Practitioner Family | DX: T56.0X1A 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, accidental (unintentional), initial encounter (principal) | CPT/HCPCS: 36415; 83540 ==

== ENCOUNTER 2023-09-05 13:56 | Outpatient (OUT) | payer SELFPAY ==
[2023-09-07 00:07] LABS: Lead, Blood (Adult) 17.1 ug/dL (0.0-3.4)
== END 2023-09-05 13:57 | disposition home or self-care (01) ==
LOC: LAB 13:57
PROVIDERS: PCP Family Medicine; Visit Provider Nurse Practitioner Family
DX: T56.0X1A 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, accidental (unintentional), initial encounter (principal)
CPT/HCPCS: 36415; 83655

== ENCOUNTER 2023-09-20 17:24 | Outpatient (OUT) | payer OTHER, SELFPAY ==
--- OUTSIDE RECORDS SUMMARY | 2023-09-20 17:31 | XMS_ITS | CCD ---
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 Name Role Phone LATIA ., DR OSBORN [...] ., DR OSBORN Primary Care Unavailable GENE .BEV Admitting Unavailable HOY ., DR OSBORN Primary Care Unavailable ENDY DEUTSCH Consulting Unavailable GENE ., BEV Attending Unavailable GENE ., BEV Consulting Unavailable MARLYS MUNOZ Consulting Unavailable WILFRID CAMARENA Consulting Unavailable OMARY ., DR OSBORN Consulting Unavailable HOY ., DR OSBORN Attending Unavailable HOY ., DR OSBORN Admitting Unavailable HOY ., DR OSBORN Primary Care Unavailable HOY ., DR OSBORN Consulting Unavailable HOY ., DR OSBORN Attending Unavailable HOY ., DR OSBORN Admitting Unavailable HOY ., DR OSBORN Primary Care Unavailable OMARYIRENA M Primary Care Unavailable JUTSEN HAQUE Attending Unavailable SHADY BRYANT Admitting Unavailable CARDIOLOGY, [facility] Consulting Unavailable MAINE FERGUSON Attending Unavailable MAINE FERGUSON Referring Unavailable HOY, IRENA M Primary Care Unavailable JOHN MEEKS Attending Unavailable JOHN MEEKS Referring Unavailable HOY, IRENA M Primary Care Unavailable Ollie Pitt Unavailable Ashley Foster CNP Unavailable [phone] INDU VOGT Attending Unavailable OLLIE PITT Attending Unavailable LUIS ALBERTO DOWLING Attending Unavailable JI FAJARDO Referring Unavailable JI FAJARDO Referring Unavailable JI FAJARDO Attending Unavailable Medications Current Medications Medication Drug Class(es) Dates Sig (Normalized) Sig (Original) apixaban 5 mg oral tablet (4 sources) Factor Xa Inhibitor Start: 07-10-2023 take 1 tablet by mouth every twelve hours ELIQUIS 5 mg tab(s) Take 1 tablet by mouth every 12 hours. 0 07/10/2023 Active Comment on above: Take 1 tablet by live th every 12 hours. aspirin 81 mg delayed release oral tablet (4 sources) Platelet Aggregation Inhibitor, Nonsteroidal Anti-inflammatory Drug Start: 06-02-2023 aspirin, enteric coated (ASPIRIN, ENTERIC COATED) 81 mg EC tablet Take 81 mg by mouth. 0 06/02/2023 Active Comment on above: Take 81 mg by mouth. citalopram 10 mg oral tablet (4 sources) Serotonin Reuptake Inhibitor citalopram hydrobromide (CELEXA) 10 mg tablet Take 10 mg by mouth. 0 Active Comment on above: Take 10 mg by mouth. hydrOXYzine hydrochloride 25 mg oral tablet (4 sources) Antihistamine Start: 06-27-2023 take 1 tablet by mouth every eight hours as needed hydrOXYzine HCl (ATARAX) 25 mg tablet Take 25 mg by mouth every 8 hours as needed. 0 06/27/2023 Active Comment on above: Take 25 mg by mouth every 8 hours as needed. nortriptyline 10 mg oral capsule (4 sources) Tricyclic Antidepressant Start: 08-02-2023 take 1 capsule by mouth once daily at bedtime nortriptyline (PAMELOR) 10 mg capsule Indications: Dizziness Take 1 capsule by mouth daily at bedtime. 90 capsule 1 08/02/2023 Active Comment on above: Take 1 capsule by mo uth daily at bedtime. rizatriptan 10 mg oral tablet (4 sources) Serotonin-1b and Serotonin-1d Receptor Agonist Start: 08-02-2023 take 1 tablet by mouth every two hours as needed for headache rizatriptan (MAXALT) 10 mg tablet Indications: Worsening headaches Take 1 tablet (10 mg) by mouth as needed. AT ONSET OF HEADACHE. MAY REPEAT AFTER 2 HOURS. DO NOT EXCEED 30 MG PER DAY. Do not use on more than 2 days per week to avoid rebound headaches. 9 tablet 5 08/02/2023 Active Comment on above: Take 1 tablet (10 mg ) by mouth as needed. AT ONSET OF HEADACHE. MAY REPEAT AFTER 2 HOURS. DO NOT EXCEED 30 MG PER DAY. Do not use on more than 2 days per week to avoid rebound headaches. Completed/Discontinued Medications Medication Drug Class(es) Dates Sig (Normalized) Sig (Original) iv contrast (will be provided with radiology test) (2 sources) Start: 08-02-2023 End: 08-03-2023 inject 1 dose intravenously once iv contrast (will be provided with radiology test) Indications: Worsening headaches MRI Brain Inject, intravenously, once for 1 dose.No IV access, insert saline lock prior to beginning of sedation, infusion, injection of imaging exam.Discontinue saline lock post exam. If Pt. has a central line or IVAD, may access for administration according to line specific nursing protocol.Once exam is complete flush line and de-access according to line specific nursing protocol in the MR contrast administration guidelines link 1 Each 0 08/02/2023 08/03/2023 Comment on above: MRI Brain Inject, intravenously, once fo r 1 dose.No IV access, insert saline lock prior to beginning of sedation, infusion, injection of imaging exam.Discontinue saline lock post exam. If Pt. has a central line or IVAD, may access for administration according to line specific nursing protocol.Once exam is complete flush line and de-access according to line specific nursing protocol in the MR contrast administration guidelines link Problems Active Problems Problem Classification Problem Date Documented Date Episodic/Chronic Cardiac dysrhythmias (5 sources) Unspecified atrial fibrillation; Translations: [Other specified cardiac arrhythmias] Onset: 06-01-2023 Chronic Conditions associated with dizziness or vertigo (3 sources) Dizziness; Translations: [Dizziness and giddiness] Onset: 08-10-2023 08-02-2023 Episodic Congestive heart failure; nonhypertensive (1 source) Unspecified [...] INCONTINENCE] Onset: 05-13-2022 Chronic Headache; including migraine (1 source) Headache; Translations: [Worsening headaches] 08-02-2023 Episodic Headache; including migraine (4 sources) Headache; including migraine; Translations: [HEADACHE UNSPECIFIED] Onset: 08-11-2022 Hypertension with complications and secondary hypertension (1 source) Hypertensive heart disease with heart failure; Translations: [HTN HEART DISEASE W/HEART FAIL] Onset: 09-01-2022 Chronic Nonspecific chest pain (6 sources) Chest pain; Translations: [Other chest pain] Onset: 06-01-2023 Episodic Other lower respiratory disease (2 sources) Other forms of dyspnea; Translations: [Other forms of dyspnea] Onset: 06-21-2023 Episodic Other screening for suspected conditions (not mental disorders or infectious disease) (3 sources) Encounter for screening for malignant neoplasm of prostate; Translations: [Encounter for screening for malignant neoplasm of colon] Onset: 05-13-2022 Episodic Other upper respiratory infections (1 source) Chronic sinusitis, unspecified; Translations: [CHRONIC SINUSITIS UNSPECIFIED] Onset: 08-15-2022 Chronic Poisoning by nonmedicinal substances (3 sources) 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, accidental (unintentional), initial encounter; Translations: [Toxic effect of unspecified lead compound] Onset: 06-21-2023 08-04-2023 Chronic Poisoning by nonmedicinal substances (2 sources) 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, accidental (unintentional), sequela; Translations: [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, accidental (unintentional), sequela] Onset: 06-20-2023 Episodic Sprains and strains (1 source) Strain of muscle, fascia and tendon at neck level, initial encounter; Translations: [STRN MUSC FASC TENDON NECK LEVL INT] Onset: 08-15-2022 Episodic Superficial injury; contusion (1 source) Contusion of nose, initial encounter; Translations: [CONTUSION OF NOSE INITIAL ENCOUNTER] Onset: 08-15-2022 Episodic Syncope (4 sources) Syncope and collapse; Translations: [SYNCOPE AND COLLAPSE] Onset: 09-01-2022 Episodic Unclassified (1 source) Other supraventricular tachycardia; Translations: [Other supraventricular tachycardia] Onset: 08-08-2023 Unclassified (1 source) Worsening headaches; Translations: [Worsening headaches] Onset: 08-03-2023 Past or Other Problems Problem Classification Problem Date Documented Date Episodic/Chronic Diabetes mellitus without complication (1 source) Other abnormal glucose; Translations: [OTHER ABNORMAL GLUCOSE] Onset: 05-13-2022 Episodic Malaise and fatigue (5 sources) Other fatigue; Translations: [OTHER FATIGUE] Onset: 05-07-2022 Episodic Other nervous system disorders (1 source) Unspecified disturbances of skin sensation; Translations: [UNS DISTURBANCES OF SKIN SENSATION] Onset: 05-13-2022 Episodic Spondylosis; intervertebral disc disorders; other back problems (4 sources) Radiculopathy, lumbar region; Translations: [RADICULOPATHY LUMBAR REGION] Onset: 05-06-2022 Episodic Unclassified (1 source) Other supraventricular tachycardia; Translations: [Other supraventricular tachycardia] Onset: 08-08-2023 Results Test Name Value Interpretation Reference Range Facility CNTHERAPY 08-10-2023 CNTHERAPY OT/PT/Speech Visit ([facility]) REY BAXTER ([id number]) 1980 M Date Time Provider Department 08/10/23 9:30 AM JEAN VALENCIA [facility] Date Time Provider Department Center 08/10/2023 9:30 AM [id number] VALENCIA [facility] Reason for Visit: PT Eval [747] Visit Diagnosis:Dizziness [R42] Allergies As of Date: 08/10/2023 (No Known Allergies) Date Reviewed: 08/04/2023 Reviewed by: Ji Fajardo MD - Fully Assessed Prescriptions as of 08/14/2023 - ELIQUIS 5 mg tab(s) Take 1 tablet by mouth every 12 hours. - aspirin, enteric coated (ASPIRIN, ENTERIC COATED) 81 mg EC tablet Take 81 mg by mouth. - citalopram hydrobromide (CELEXA) 10 mg tablet Take 10 mg by mouth. - hydrOXYzine HCl (ATARAX) 25 mg tablet Take 25 mg by mouth every 8 hours as needed. - rizatriptan (MAXALT) 10 mg tablet Take 1 tablet (10 mg) by mouth as needed. AT ONSET OF HEADACHE. MAY REPEAT AFTER 2 HOURS. DO NOT EXCEED 30 MG PER DAY. Do not use on more than 2 days per week to avoid rebound headaches. - nortriptyline (PAMELOR) 10 mg capsule Take 1 capsule by mouth daily at bedtime. Adjunct Communications Faculty Member: Therapy (PT/OT/Speech/Resp) ID: [id number] 08/10/2023 10:06 AM Author: JEAN VALENCIA Signed by JEAN VALENCIA PT on 08/10/2023 at 10:06 AM Document text: Program_ID:[id number] Access Code: [email or web address] URL: [email or web address] Date: 08-10-2023 Prepared By: Jean Valencia Program Notes Exercises - Sit to Stand with Arms Crossed - 1 x daily - 7 x weekly - 3 sets - 10 reps - Sidestepping in Squat with Resistance and Arms Forward - 1 x daily - 7 x weekly - 3 sets - 10 reps - Standing Bicep Curls with Resistance - 1 x daily - 7 x weekly - 3 sets - 10 reps - Standing Row with Anchored Resistance - 1 x daily - 7 x weekly - 3 sets - 10 reps - Seated Cervical Retraction - 1 x daily - 7 x weekly - 3 sets - 10 reps - Shoulder extension with resistance - Neutral - 1 x daily - 7 x weekly - 3 sets - 10 reps - Standing Shoulder Horizontal Abduction with Resistance - 1 x daily - 7 x weekly - 3 sets - 10 reps - Standing Shoulder Diagonal Horizontal Abduction 60/120 Degrees with Resistance - 1 x daily - 7 x weekly - 3 sets - 10 reps -------- Normal [facility] THERAPY NTon 08-10-2023 THERAPY NT HNO ID: [id number] Author: JEAN VALENCIA PT Service: ? Author Type: Physical Therapist Type: Therapy (PT/OT/Speech/Resp) Filed: 08/10/2023 10:06 Note Text: Program_ID:[id number] Access Code: [email or web address] URL: [email or web address] Date: 08-10-2023 Prepared By: Jean Valencia Program Notes Exercises - Sit to Stand with Arms Crossed - 1 x daily - 7 x weekly - 3 sets - 10 reps - Sidestepping in Squat with Resistance and Arms Forward - 1 x daily - 7 x weekly - 3 sets - 10 reps - Standing Bicep Curls with Resistance - 1 x daily - 7 x weekly - 3 sets - 10 reps - Standing Row with Anchored Resistance - 1 x daily - 7 x weekly - 3 sets - 10 reps - Seated Cervical Retraction - 1 x daily - 7 x weekly - 3 sets - 10 reps - Shoulder extension with resistance - Neutral - 1 x daily - 7 x weekly - 3 sets - 10 reps - Standing Shoulder Horizontal Abduction with Resistance - 1 x daily - 7 x weekly - 3 sets - 10 reps - Standing Shoulder Diagonal Horizontal Abduction 60/120 Degrees with Resistance - 1 x daily - 7 x weekly - 3 sets - 10 reps Normal [facility] Office Visiton 08-08-2023 Follow-up visit [id number] Rey Baxter 1980 [facility] Provider Department [place] 08/08/2023 241-LUIS ALBERTO DOWLING ARASELI Lang Family History Problem Relation Age of Onset Lupus Mother Muscular dystrophy Mother Diabetes Other Family Status - Relation Status Age at Mother Other Level of Service:87278 [place] OFFICE/OUTPATIENT NEW MODERATE MDM 45 MINUTES Normal [facility] CNPJoyce 08-04-2023 CNPN Telephone (NUMBHT) REY BAXTER ([id number]) 1980 M Date Time Provider Department 08/04/23 JI FAJARDO During your visit today, we recorded the following information about you: Zander Denson MA 08/04/2023 9:09 AM Signed Patient records received via electronic fax. Uploaded to [employer] via [employer]. Please review in scanned documents tab of chart review. Zander Denson MA Allergies As of Date: 08/04/2023 (Not on File) Date Reviewed: 08/03/2023 Reviewed by: Matthew Banerjee, [place] - Fully Assessed Reason for Visit: Workers comp [Other] Prescriptions as of 08/04/2023 - ELIQUIS 5 mg tab(s) Take 1 tablet by mouth every 12 hours. - aspirin, enteric coated (ASPIRIN, ENTERIC COATED) 81 mg EC tablet Take 81 mg by mouth. - citalopram hydrobromide (CELEXA) 10 mg tablet Take 10 mg by mouth. - hydrOXYzine HCl (ATARAX) 25 mg tablet Take 25 mg by mouth every 8 hours as needed. - rizatriptan (MAXALT) 10 mg tablet Take 1 tablet (10 mg) by mouth as needed. AT ONSET OF HEADACHE. MAY REPEAT AFTER 2 HOURS. DO NOT EXCEED 30 MG PER DAY. Do not use on more than 2 days per week to avoid rebound headaches. - nortriptyline (PAMELOR) 10 mg capsule Take 1 capsule by mouth daily at bedtime. Problem List As Of Date: 08/04/2023 (None) Encounter Status:Closed by JARETTZANDER on 08/04/23 Normal [facility] MR Brain WO and W contrast I Von 08-03-2023 [facility] MRI BRAIN WO/W IVCONon 08-02 MRI BRAIN WO/W IVCON * * *Final Report* * * DATE OF EXAM: Aug 03 2023 3:38PM LNM 0295 - MRI BRAIN WO/W IVCON / PROCEDURE REASON: Worsening headaches * * * * Physician Interpretation * * * * EXAMINATION: MRI BRAIN WO/W IVCON CLINICAL HISTORY: Chronic headaches with recent worsening. TECHNIQUE: Routine brain MRI protocol without and with contrast including diffusion images. MQ: [id number] Contrast: 15 mL Dotarem IV COMPARISON: None. RESULT: Acute Change: There is no evidence of an acute intracranial process. Hemorrhage: No evidence of prior parenchymal, subarachnoid or intraventricular hemorrhage on SWI. Mass Lesion/ Mass Effect: There is no evidence of an intracranial mass or extra-axial fluid collection. No abnormal parenchymal or leptomeningeal enhancement is appreciated otherwise following gadolinium administration. No significant mass effect. Chronic Change: The white matter is within normal limits of signal intensity for age. Parenchyma: No significant volume loss for age. The brain parenchyma is otherwise within normal limits of signal intensity and morphology. Ventricles: Normal caliber and morphology. Skull Base: Hypothalamic and pituitary region are grossly normal. Craniocervical junction is normal. Visualized upper cervical spinal canal is patent. No significant marrow replacement process. Vasculature: Major intracranial arterial structures, and dural venous sinuses show typical flow void, suggesting patency by spin echo criteria. Other: Minimal mucosal thickening is noted in the posterior ethmoid air cells, right greater than left. IMPRESSION: Minimal paranasal sinus inflammatory changes. Otherwise normal study. Drawer Fitter: PSCB Transcribe Date/Time: Aug 03 2023 3:53P Dictated by : LUIS ALBERTO SMITH MD This examination was interpreted and the report reviewed and electronically signed by: LUIS ALBERTO SMITH MD on Aug 03 2023 3:57PM EST [id number] Normal [facility] CNOVon 08-02-2023 CNOV Office Visit ([facility]) REY BAXTER ([id number]) 1980 M Date Time Provider Department 08/02/23 4:00 PM JI FAJARDO [facility] During your visit today, we recorded the following information about you: Pulse Respiration Blood pressure Weight 74/minute 18/minute 115/74 72.4 kg Height 1.778 m Ji Fajardo MD 08/04/2023 2:09 PM Signed HEADACHE MEDICINE NEW EVALUATION August 04, 2023 4:00 PM Pt is 43 year old male from [place], [place] who presents with headaches that appears subsequent to 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 Lead is not being chelated at this time--monitored with gradual reduction in values. Pt reports his primary symptoms to me today are headaches, DIZZINESS, and abdominal pain--all consistent with history of lead toxicity. Headache 1 Diagnosis: Evaluation for secondary headache Onset: - Pt reports GARCIA's have been present for several months but worsened around FEB 2023. Pt noted to have lead toxicity during this time. Denies previous history of headache or migraine apart from occasional mild ones that responded entirely to APAP--rare and episodic if at all. Location: bilateral, frontal, temporal and occipital Quality/Description: throbbing Associated Symptoms: Photophobia: no Phonophobia: no Nausea: no Vomiting: no Other symptoms: dizziness (++ orthostatic dizziness. most common on standing. Vision gets blurry at that time.) Worse with activity: yes Number of NON-migraine headache days/month: 30 Non-migraine Severity: pain fluctuates between mild AND severe. Number of headache free days/month: 0 Duration of headaches with treatment: Duration of attacks with treatment: duration varies--2 hours up to entire day. Current preventive treatment: none Current abortive treatment: APAP--mildly helpful. Triggers: stress and fasting/hunger Onset of headache to peak: gradual Relieving factors: eating will sometimes help Positional changes: yes Most common time of day for headache to begin: morning Prodrome: none Aura: none Allodynia: no Days missed from work or school in the last month: 6 days Lifestyle: Sleep: sleep quality is notable for awakening thru the night. sometimes he has a hard time falling asleep as well. Labs reviewed. PMH: Past Medical History: Diagnosis Date Atrial fibrillation (CMS/HCC) GERD (gastroesophageal reflux disease) Sleep apnea PSH: Past Surgical History: Procedure Laterality Date FINGER SURGERY Left pinky SH: Social Determinants of Health Tobacco Use: Low Risk (06/21/2023) Patient History Smoking Tobacco Use: Never Smokeless Tobacco Use: Never Passive Exposure: Never Alcohol Use: Not on file Financial Resource Strain: Not on file Food Insecurity: Not on file Transportation Needs: Not on file Physical Activity: Not on file Stress: Not on file Social Connections: Not on file Intimate Partner Violence: Unknown (06/20/2023) Humiliation, Afraid, Rape, and Kick questionnaire Fear of Current or Ex-Partner: No Emotionally Abused: Not on file Physically Abused: Not on file Sexually Abused: Not on file Depression: Not on file Housing Stability: Not on file Utilities: Not on file Current Outpatient Medications Medication Sig ELIQUIS 5 mg tab(s) Take 1 tablet by mouth every 12 hours. aspirin, enteric coated (ASPIRIN, ENTERIC COATED) 81 mg EC tablet Take 81 mg by mouth. citalopram hydrobromide (CELEXA) 10 mg tablet Take 10 mg by mouth. hydrOXYzine HCl (ATARAX) 25 mg tablet Take 25 mg by mouth every 8 hours as needed. No current facility-administere d medications for this visit. ALLERGIES No Known Allergies PHYSICAL EXAMINATION 08/02/23 1548 BP: 115/74 Pulse: 74 Resp: 18 SpO2: 98% Weight: 72.4 kg (159 lb 11.6 oz) Height: 177.8 cm (5' 10 ) General appearance: Well appearing, alert, in no acute distress, well-hydrated, well nourished. Head: Normocephalic, no masses, lesions, tenderness or abnormalities Eyes: Anicteric sclera. Pupils are equally round and reactive to light. Extraocular movements are intact. Fundi without papilledema. Oropharynx: Lips, mucosa, and tongue normal, teeth and gums normal, oropharynx normal Neck: Supple, no adenopathy; Lungs: Unlabored on room air Extremities: No deformities, edema, skin discoloration, clubbing or cyanosis. Good capillary refill. Musculoskeletal: No joint swelling, deformity, or tenderness Peripheral pulses: Capillary refill <2secs, strong peripheral pulses Neuro: Negative findings: speech normal, mental status intact, cranial nerves 2-12 intact, muscle tone normal, muscle strength normal, finger to nose normal, reflexes normal and symmetric Rey was seen today for new patient. Diagnoses and all orders for this visit: Worsening headaches - MRI BRAIN WO/W IVCON; Future - iv contrast (more content not included)... Normal [facility] Yumiko 08-02-2023 CNPN Telephone (RUDY) REY BAXTER ([id number]) 1980 M Date Time Provider Department 08/02/23 JI FAJARDO During your visit today, we recorded the following information about you: Allergies As of Date: 08/02/2023 (Not on File) Date Reviewed: 08/02/2023 Reviewed by: Catherine Madden MA - Fully Assessed Prescriptions as of 08/03/2023 - ELIQUIS 5 mg tab(s) Take 1 tablet by mouth every 12 hours. - aspirin, enteric coated (ASPIRIN, ENTERIC COATED) 81 mg EC tablet Take 81 mg by mouth. - citalopram hydrobromide (CELEXA) 10 mg tablet Take 10 mg by mouth. - hydrOXYzine HCl (ATARAX) 25 mg tablet Take 25 mg by mouth every 8 hours as needed. - iv contrast (will be provided with radiology test) MRI Brain Inject, intravenously, once for 1 dose.No IV access, insert saline lock prior to beginning of sedation, infusion, injection of imaging exam.Discontinue saline lock post exam. If Pt. has a central line or IVAD, may access for administration according to line specific nursing protocol.Once exam is complete flush line and de-access according to line specific nursing protocol in the MR contrast administration guidelines link - rizatriptan (MAXALT) 10 mg tablet Take 1 tablet (10 mg) by mouth as needed. AT ONSET OF HEADACHE. MAY REPEAT AFTER 2 HOURS. DO NOT EXCEED 30 MG PER DAY. Do not use on more than 2 days per week to avoid rebound headaches. - nortriptyline (PAMELOR) 10 mg capsule Take 1 capsule by mouth daily at bedtime. Problem List As Of Date: 08/02/2023 (None) Encounter Status:Closed by ZANDER DENSON on 08/03/23 [facility] 36on 06-22-2023 36 Per Ollie Pitt via email: Ok for now I'd say just keep monitoring, he likely would've felt lightheaded or dizzy at least versus pain . It's hard to say 100% that it was artifact. Any persisting symptoms (lightheadedness, dizziness, fatigue) let us know so we can look at the monitor but any syncope or feelings of passing out that do not resolve quickly is a 911 call. He's been having vague symptoms of left arm / chest pain so stress test just needs done catia. [facility] 36 Zywie called this morning to make us aware of pause > 7 seconds on patient's event monitor. They spoke with Graciela, who forwarded the strip to Ollie Pitt and Dr. Dowling via email. Ollie said it appears as artifact but wanted me to call the patient to see if he had symptoms at that time. I spoke with Rey who told me he was at work during this time. 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 Denied lightheadedness/dizz iness but told me he had mild pain throughout the entire left side of his body. [facility] Office Visiton 06-21-2023 Follow-up visit [id number] Rey Baxter 1980 M Date Provider Department Center 06/21/2023 1596-OLLIE PITT ARASELI Lang Family History Problem Relation Age of Onset Lupus Mother Muscular dystrophy Mother Diabetes Other Family Status - Relation Status Age at Mother Other Level of Service:46985 [place] OFFICE/OUTPATIENT NEW MODERATE MDM 45 MINUTES Reason for Visit and Comments: New Patient [632] - A Fib [facility] 37on 06-20-2023 37 1) social work 2) workers comp 3) CT abd 3) colonoscopy 4) neurologist 5) labs 6) traffic director 7) to keep follow up with the current lead poisoning expert 78 please reach out tp poison control [place] for direction [phone] Normal [facility] CBC AND AUTO DIFFon 06-02-19 24 ABSOLUTE BASOPHIL 0.1 X10E9/L [facility] Comment on above: Performed By: #### C BCA, CMP, 49179-1, PINR, 14039-4, 23986-7, 86796-3, 10241-7, THYR #### [facility] [facility] ([id number]) [address] [place] [address] 92512 ABSOLUTE NEUTROPHIL 3.9 X10E9/L Normal 1.5-6.6 [facility] Comment on above: Performed By: #### C BCA, CMP, 71068-8, PINR, 91222-8, 02847-4, 45273-3, 80325-3, THYR #### [facility] ([id number]) [address] [place] [address] 24990 Basophils/100 WBC (Bld) 0.8 % Normal [facility] [place] Comment on above: Performed By: #### C BCA, CMP, 92678-9, PINR, 82561-9, 58193-3, 30591-6, 37688-5, THYR #### [facility] ([id number]) [address] [place] [address] 85822 Eosinophils (Bld) [#/Vol] 0.1 10*3/uL Normal 0.0-0.4 [facility] [place] Comment on above: Performed By: #### C BCA, CMP, 65162-1, PINR, 67782-0, 05498-2, 75764-4, 68782-9, THYR #### [facility] ([id number]) [address] [place] [address] 19466 Eosinophils/100 WBC (Bld) 1.4 % Normal [facility] [place] Comment on above: Performed By: #### C BCA, CMP, 90875-3, PINR, 07596-6, 31104-6, 86281-6, 83683-3, THYR #### [facility] ([id number]) [address] [place] [address] 36017 Erythrocyte distribution width (RBC) [Ratio] 13.2 % Normal 11.5-15.0 [facility] [place] Comment on above: Performed By: #### C BCA, CMP, 08500-1, PINR, 02016-0, 04154-1, 87944-0, 02106-5, THYR #### [facility] ([id number]) [address] [place] [address] 48116 Hematocrit (Bld) [Volume fraction] 40.7 % Normal 39-49 [facility] [place] Comment on above: Performed By: #### C BCA, CMP, 14902-9, PINR, 18029-5, 41176-0, 43043-8, 99186-3, THYR #### [facility] ([id number]) [address] [place] [address] 96324 Hemoglobin (Bld) [Mass/Vol] 14.2 g/dL Normal 13.0-17.0 [facility] [place] Comment on above: Performed By: #### C BCA, CMP, 71446-3, PINR, 11994-3, 33089-2, 08580-0, 52745-8, THYR #### [facility] ([id number]) [address] [place] [address] 75627 Lymphocytes (Bld) [#/Vol] 2.2 10*3/uL Normal 1.0-3.5 [facility] [place] Comment on above: Performed By: #### C BCA, CMP, 48255-0, PINR, 09736-1, 69376-4, 03214-1, 69839-4, THYR #### [facility] ([id number]) [address] [place] [address] 44354 Lymphocytes/100 WBC (Bld) 31.4 % Normal [facility] [place] Comment on above: Performed By: #### C BCA, CMP, 48609-0, PINR, 21474-1, 76258-5, 15424-2, 42107-4, THYR #### [facility] ([id number]) [address] [place] [address] 86761 MCH (RBC) [Entitic mass] 30.7 pg Normal 27-34 [facility] [place] Comment on above: Performed By: #### C BCA, CMP, 21858-6, PINR, 09540-7, 65952-6, 60176-5, 52776-5, THYR #### [facility] ([id number]) [address] [place] [address] 92986 MCHC (RBC) [Mass/Vol] 34.9 g/dL Normal 32-36 [facility] [place] Comment on above: Performed By: #### C BCA, CMP, 25915-3, PINR, 14087-4, 70230-2, 07401-7, 16541-4, THYR #### [facility] ([id number]) [address] [place] [address] 74690 MCV (RBC) [Entitic vol] 88 fL Normal 80-100 [facility] [place] Comment on above: Performed By: #### C BCA, CMP, 77517-9, PINR, 79262-3, 34569-5, 81495-9, 22133-4, THYR #### [facility] ([id number]) [address] [place] [address] 88743 Monocytes (Bld) [#/Vol] 0.7 10*3/uL Normal 0-0.9 [facility] [place] Comment on above: Performed By: #### C BCA, CMP, 03818-1, PINR, 57421-0, 05568-8, 86387-2, 21553-6, THYR #### [facility] ([id number]) [address] [place] [address] 50955 Monocytes/100 WBC (Bld) 10.7 % Normal [facility] [place] Comment on above: Performed By: #### C BCA, CMP, 08356-0, PINR, 67876-3, 52995-7, 91814-5, 14605-8, THYR #### [facility] ([id number]) [address] [place] [address] 44087 Neutrophils/100 WBC (Bld) 55.7 % Normal [facility] [place] Comment on above: Performed By: #### C BCA, CMP, 37081-4, PINR, 69158-9, 70848-9, 31476-3, 35348-7, THYR #### [facility] ([id number]) [address] [place] [address] 70719 Platelet mean volume (Bld) [Entitic vol] 8.5 fL Normal 7-12 [facility] [place] Comment on above: Performed By: #### C BCA, CMP, 37419-1, PINR, 42473-4, 94251-7, 24861-3, 03608-3, THYR #### [facility] ([id number]) [address] [place] [address] 98115 Platelets (Bld) [#/Vol] 192 10*3/uL Normal 150-450 [facility] [place] Comment on above: Performed By: #### C BCA, CMP, 09157-8, PINR, 94976-2, 70256-5, 85990-4, 04300-3, THYR #### [facility] ([id number]) [address] [place] [address] 30673 RBC COUNT 4.61 X10E12/L Normal 4.10-5.70 [facility] [place] Comment on above: Performed By: #### C BCA, CMP, 01430-3, PINR, 32160-2, 78378-2, 71110-6, 31114-1, THYR #### [facility] ([id number]) [address] [place] [address] 30954 WBC (Bld) [#/Vol] 7.0 10*3/uL Normal 4.0-11.0 [facility] Comment on above: Performed By: #### C BCA, CMP, 93735-2, PINR, 33920-6, 60742-7, 42961-6, 01817-1, THYR #### [facility] ([id number]) [address] [place] [address] 08345 COMPREHENSIVE METABOLIC PANE Nik 06-02-2023 Albumin [Mass/Vol] 4.2 g/dL Normal 3.2-5.3 [facility] Comment on above: Performed By: #### C BCA, CMP, 90365-0, PINR, 33882-5, 29029-8, 30060-5, 53934-2, THYR #### [facility] ([id number]) [address] [place] [address] 26425 ALP [Catalytic activity/Vol] 84 U/L Normal 39-130 [facility] [place] Comment on above: Performed By: #### C BCA, CMP, 19476-8, PINR, 14751-8, 08261-2, 81589-9, 31542-2, THYR #### [facility] ([id number]) [address] [place] [address] 24092 ALT [Catalytic activity/Vol] 27 U/L Normal 0-40 [facility] [place] Comment on above: Performed By: #### C BCA, CMP, 54219-6, PINR, 63701-1, 47520-1, 29249-4, 24221-6, THYR #### [facility] ([id number]) [address] [place] [address] 74804 Anion gap [Moles/Vol] 8 mmol/L Normal 5-15 [facility] [place] Comment on above: Performed By: #### C BCA, CMP, 35881-6, PINR, 22353-8, 59622-6, 49190-9, 21211-8, THYR #### [facility] ([id number]) [address] [place] [address] 21938 AST [Catalytic activity/Vol] 22 U/L Normal 0-41 [facility] [place] Comment on above: Performed By: #### C BCA, CMP, 02886-9, PINR, 74143-8, 83021-5, 19430-6, 80308-2, THYR #### [facility] ([id number]) [address] [place] [address] 55615 Bilirubin [Mass/Vol] 0.8 mg/dL Normal 0.3-1.2 [facility] Comment on above: Performed By: #### C BCA, CMP, 94312-3, PINR, 19657-7, 76443-8, 09486-0, 28476-6, THYR #### [facility] ([id number]) [address] [place] [address] 52737 Calcium [Mass/Vol] 10.0 mg/dL Normal 8.5-10.5 [facility] Comment on above: Performed By: #### C BCA, CMP, 33852-2, PINR, 08847-3, 54965-7, 81556-8, 43570-3, THYR #### [facility] ([id number]) [address] [place] [address] 87701 Chloride [Moles/Vol] 102 mmol/L Normal 98-109 [facility] Comment on above: Performed By: #### C BCA, CMP, 44136-5, PINR, 16122-7, 46558-5, 33177-1, 76225-4, THYR #### [facility] ([id number]) [address] [place] [address] [place] [address] CO2 [Moles/Vol] 26 mmol/L Normal 22-32 [facility] [place] Comment on above: Performed By: #### C BCA, CMP, 65225-5, PINR, 47145-6, 91181-3, 80182-9, 48677-4, THYR #### [facility] ([id number]) [address] [place] [address] Creatinine [Mass/Vol] 1.07 mg/dL Normal 0.70-1.20 [facility] [place] Comment on above: Result Comment: METH OD TRACEABLE TO IDMS STANDARD Performed By: #### C BCA, CMP, 34544-6, PINR, 60086-1, 39121-0, 84962-3, 93255-8, THYR #### [facility] ([id number]) [address] [place] [address] 62988 GFR/1.73 sq M.predicted among non-blacks MDRD (S/P/Bld) [Vol rate/Area] 88 mL/min/{1.73_m2} Normal >59 [facility] [place] Comment on above: Result Comment: Reported eGFR is based on the CKD-EPI 2020 equation that does not use a race coefficient. Performed By: #### C BCA, CMP, 22005-9, PINR, 05767-9, 73550-6, 24618-4, 84342-6, THYR #### [facility] ([id number]) [address] [place] [address] 73887 Glucose [Mass/Vol] 94 mg/dL Normal 65-99 [facility] Comment on above: Performed By: #### C BCA, CMP, 79697-4, PINR, 10172-4, 74402-3, 79445-9, 62444-2, THYR #### [facility] ([id number]) [address] [place] [address] 63903 Potassium [Moles/Vol] 4.0 mmol/L Normal 3.5-5.0 [facility] [place] Comment on above: Performed By: #### C BCA, CMP, 94026-4, PINR, 52004-9, 43088-5, 21694-2, 76924-0, THYR #### [facility] ([id number]) [address] [place] [address] 66226 Protein [Mass/Vol] 7.0 g/dL Normal 6.0-8.0 [facility] Comment on above: Performed By: #### C BCA, CMP, 81885-4, PINR, 37455-3, 08724-9, 55307-7, 40263-0, THYR #### [facility] ([id number]) [address] [place] [address] 37501 Sodium [Moles/Vol] 136 mmol/L Normal 134-146 [facility] Comment on above: Performed By: #### C BCA, CMP, 24432-6, PINR, 98114-7, 73603-1, 85076-6, 90138-1, THYR #### [facility] ([id number]) [address] [place] [address] 39350 Urea nitrogen [Mass/Vol] 20 mg/dL Normal 5-23 [facility] [place] Comment on above: Performed By: #### C BCA, CMP, 82346-1, PINR, 32635-2, 01886-2, 20856-2, 44874-6, THYR #### [facility] ([id number]) [address] [place] [address] [place] [address] MAGNESIUMon 06-02-2023 Magnesium [Mass/Vol] 2.1 mg/dL Normal 1.8-2.6 [facility] Comment on above: Performed By: #### C BCA, CMP, 96573-6, PINR, 78284-2, 52457-7, 51975-3, 87253-2, THYR #### [facility] ([id number]) [address] [place] [address] [place] [address] TROPONIN Ion 06-02-2023 Troponin I.cardiac [Mass/Vol] ng/mL Normal 0.00-0.04 [facility] [place] Comment on above: Performed By: #### C BCA, CMP, 11322-0, PINR, 96631-2, 30969-5, 46396-9, 65498-8, THYR #### [facility] ([id number]) [address] [place] [address] 41619 CBC AND AUTO DIFFon 06-01-19 24 ABSOLUTE BASOPHIL 0.1 X10E9/L Normal 0.0-0.2 [facility] Comment on above: Performed By: #### C BCA, CMP, 94420-3, PINR, 62169-6, 86785-6, 09243-7, 89655-4, THYR #### [facility] ([id number]) [address] [place] [address] 28325 ABSOLUTE NEUTROPHIL 5.1 X10E9/L Normal 1.5-6.6 [facility] Comment on above: Performed By: #### C BCA, CMP, 28037-0, PINR, 34503-1, 58567-0, 58850-7, 41261-1, THYR #### [facility] ([id number]) [address] [place] [address] 75638 Basophils/100 WBC (Bld) 0.8 % Normal [facility] [place] Comment on above: Performed By: #### C BCA, CMP, 96786-2, PINR, 90604-8, 26916-2, 61421-4, 34404-7, THYR #### [facility] ([id number]) [address] [place] [address] 96401 Eosinophils (Bld) [#/Vol] 0.1 10*3/uL Normal 0.0-0.4 [facility] [place] Comment on above: Performed By: #### C BCA, CMP, 24118-4, PINR, 16879-4, 83040-2, 06263-5, 26629-7, THYR #### [facility] ([id number]) [address] [place] [address] 33869 Eosinophils/100 WBC (Bld) 1.1 % Normal [facility] [place] Comment on above: Performed By: #### C BCA, CMP, 71428-0, PINR, 63276-1, 28567-5, 59421-0, 25158-0, THYR #### [facility] ([id number]) [address] [place] [address] 60558 Erythrocyte distribution width (RBC) [Ratio] 13.0 % Normal 11.5-15.0 [facility] [place] Comment on above: Performed By: #### C BCA, CMP, 73529-5, PINR, 99506-7, 47672-8, 46186-4, 67589-7, THYR #### [facility] ([id number]) [address] [place] [address] 33024 Hematocrit (Bld) [Volume fraction] 41.5 % Normal 39-49 [facility] [place] Comment on above: Performed By: #### C BCA, CMP, 96188-6, PINR, 28205-1, 10068-0, 18917-3, 26314-2, THYR #### [facility] ([id number]) [address] [place] [address] 25576 Hemoglobin (Bld) [Mass/Vol] 14.6 g/dL Normal 13.0-17.0 [facility] [place] Comment on above: Performed By: #### C BCA, CMP, 46371-9, PINR, 60266-9, 71719-3, 00147-1, 78364-6, THYR #### [facility] ([id number]) [address] [place] [address] 12174 Lymphocytes (Bld) [#/Vol] 1.7 10*3/uL Normal 1.0-3.5 [facility] [place] Comment on above: Performed By: #### C BCA, CMP, 36147-0, PINR, 07766-0, 08554-4, 14250-7, 63801-0, THYR #### [facility] ([id number]) [address] [place] [address] 95167 Lymphocytes/100 WBC (Bld) 22.2 % Normal [facility] [place] Comment on above: Performed By: #### C BCA, CMP, 27014-1, PINR, 74982-1, 98617-8, 19430-6, 51402-2, THYR #### [facility] ([id number]) [address] [place] [address] 76879 MCH (RBC) [Entitic mass] 30.4 pg Normal 27-34 [facility] [place] Comment on above: Performed By: #### C BCA, CMP, 60440-9, PINR, 42654-0, 22999-3, 20733-3, 73753-3, THYR #### [facility] ([id number]) [address] [place] [address] 55818 MCHC (RBC) [Mass/Vol] 35.1 g/dL Normal 32-36 [facility] [place] Comment on above: Performed By: #### C BCA, CMP, 84016-8, PINR, 22106-9, 79930-7, 10369-2, 08756-2, THYR #### [facility] ([id number]) [address] [place] [address] [place] [address] MCV (RBC) [Entitic vol] 87 fL Normal 80-100 [facility] [place] Comment on above: Performed By: #### C BCA, CMP, 34550-2, PINR, 57525-4, 15497-6, 91754-4, 87006-7, THYR #### [facility] ([id number]) [address] [place] [address] 76283 Monocytes (Bld) [#/Vol] 0.6 10*3/uL Normal 0-0.9 [facility] [place] Comment on above: Performed By: #### C BCA, CMP, 49245-3, PINR, 86576-5, 35426-7, 94584-4, 68569-8, THYR #### [facility] ([id number]) [address] [place] [address] 16523 Monocytes/100 WBC (Bld) 7.8 % Normal [facility] [place] Comment on above: Performed By: #### C BCA, CMP, 63574-5, PINR, 90188-2, 50973-9, 16551-4, 79164-0, THYR #### [facility] ([id number]) [address] [place] [address] 00651 Neutrophils/100 WBC (Bld) 68.1 % Normal [facility] [place] Comment on above: Performed By: #### C BCA, CMP, 08734-1, PINR, 11756-4, 90024-1, 94980-6, 40332-4, THYR #### [facility] ([id number]) [address] [place] [address] [place] [address] Platelet mean volume (Bld) [Entitic vol] 8.3 fL Normal 7-12 [facility] [place] Comment on above: Performed By: #### C BCA, CMP, 73197-6, PINR, 11500-6, 53387-2, 93225-6, 29605-3, THYR #### [facility] ([id number]) [address] [place] [address] 70113 Platelets (Bld) [#/Vol] 207 10*3/uL Normal 150-450 [facility] [place] Comment on above: Performed By: #### C BCA, CMP, 48626-9, PINR, 73086-8, 36341-6, 80750-4, 01715-9, THYR #### [facility] ([id number]) [address] [place] [address] 33409 RBC COUNT 4.79 X10E12/L Normal 4.10-5.70 [facility] [place] Comment on above: Performed By: #### C BCA, CMP, 38881-7, PINR, 88002-0, 65534-1, 21827-5, 28916-0, THYR #### [facility] ([id number]) [address] [place] [address] 73857 WBC (Bld) [#/Vol] 7.5 10*3/uL Normal 4.0-11.0 [facility] Comment on above: Performed By: #### C BCA, CMP, 32322-9, PINR, 07199-6, 11639-7, 43737-4, 78297-5, THYR #### [facility] ([id number]) [address] [place] [address] 85992 COMPREHENSIVE METABOLIC PANE Nik 06-01-2023 Albumin [Mass/Vol] 5.0 g/dL Normal 3.2-5.3 [facility] Comment on above: Performed By: #### C BCA, CMP, 65896-9, PINR, 95860-6, 79358-1, 02762-4, 21699-7, THYR #### [facility] ([id number]) [address] [place] [address] 41993 ALP [Catalytic activity/Vol] 90 U/L Normal 39-130 [facility] [place] Comment on above: Performed By: #### C BCA, CMP, 40389-0, PINR, 18221-2, 22906-6, 85348-8, 09094-3, THYR #### [facility] ([id number]) [address] [place] [address] 15374 ALT [Catalytic activity/Vol] 32 U/L Normal 0-40 [facility] [place] Comment on above: Performed By: #### C BCA, CMP, 30539-7, PINR, 37980-2, 67253-2, 66681-2, 73438-1, THYR #### [facility] ([id number]) [address] [place] [address] 51913 Anion gap [Moles/Vol] 7 mmol/L Normal 5-15 [facility] Comment on above: Performed By: #### C BCA, CMP, 46658-0, PINR, 64004-2, 41517-5, 20334-5, 83067-4, THYR #### [facility] ([id number]) [address] [place] [address] 60297 AST [Catalytic activity/Vol] 27 U/L Normal 0-41 [facility] Comment on above: Performed By: #### C BCA, CMP, 44529-6, PINR, 11709-2, 78450-2, 48167-8, 93088-0, THYR #### [facility] ([id number]) [address] [place] [address] 09833 Bilirubin [Mass/Vol] 0.8 mg/dL Normal 0.3-1.2 [facility] Comment on above: Performed By: #### C BCA, CMP, 78900-6, PINR, 82296-6, 58797-2, 56046-0, 51094-8, THYR #### [facility] ([id number]) [address] [place] [address] 49193 Calcium [Mass/Vol] 10.1 mg/dL Normal 8.5-10.5 [facility] Comment on above: Performed By: #### C BCA, CMP, 07112-3, PINR, 81536-3, 41677-5, 17511-1, 35394-8, THYR #### [facility] ([id number]) [address] [place] [address] 89526 Chloride [Moles/Vol] 103 mmol/L Normal 98-109 [facility] Comment on above: Performed By: #### C BCA, CMP, 37038-7, PINR, 51738-1, 25454-5, 86771-7, 76439-0, THYR #### [facility] ([id number]) [address] [place] [address] 04843 CO2 [Moles/Vol] 24 mmol/L Normal 22-32 [facility] Comment on above: Performed By: #### C BCA, CMP, 19959-8, PINR, 35869-4, 49667-4, 33175-9, 56508-6, THYR #### [facility] ([id number]) [address] [place] [address] 29091 Creatinine [Mass/Vol] 1.18 mg/dL Normal 0.70-1.20 [facility] Comment on above: Result Comment: METH OD TRACEABLE TO IDMS STANDARD Performed By: #### C BCA, CMP, 10530-4, PINR, 71545-1, 72306-0, 77145-8, 33787-5, THYR #### [facility] ([id number]) [address] [place] [address] 96487 GFR/1.73 sq M.predicted among non-blacks MDRD (S/P/Bld) [Vol rate/Area] 78 mL/min/{1.73_m2} Normal >59 [facility] Comment on above: Result Comment: Reported eGFR is based on the CKD-EPI 2020 equation that does not use a race coefficient. Performed By: #### C BCA, CMP, 96749-8, PINR, 24868-7, 58151-0, 96993-7, 73528-7, THYR #### [facility] ([id number]) [address] [place] [address] 74177 Glucose [Mass/Vol] 86 mg/dL Normal 65-99 [facility] Comment on above: Performed By: #### C BCA, CMP, 25226-0, PINR, 89002-4, 87379-2, 49704-1, 74459-9, THYR #### [facility] ([id number]) [address] [place] [address] 72860 Potassium [Moles/Vol] 3.8 mmol/L Normal 3.5-5.0 [facility] [place] Comment on above: Performed By: #### C BCA, CMP, 80454-4, PINR, 25569-6, 37991-0, 59299-0, 35202-1, THYR #### [facility] ([id number]) [address] [place] [address] 73179 Protein [Mass/Vol] 7.8 g/dL Normal 6.0-8.0 [facility] Comment on above: Performed By: #### C BCA, CMP, 13851-0, PINR, 29703-5, 87510-4, 11305-7, 80977-1, THYR #### [facility] ([id number]) [address] [place] [address] 01524 Sodium [Moles/Vol] 134 mmol/L Normal 134-146 [facility] Comment on above: Performed By: #### C BCA, CMP, 64837-0, PINR, 12954-9, 58015-8, 60445-3, 50247-1, THYR #### [facility] ([id number]) [address] [place] [address] 01339 Urea nitrogen [Mass/Vol] 16 mg/dL Normal 5-23 [facility] [place] Comment on above: Performed By: #### C BCA, CMP, 27955-6, PINR, 54960-6, 96613-1, 11598-5, 55959-2, THYR #### [facility] ([id number]) [address] [place] [address] 53651 DRUG SCREEN, URINEon 024 AMPHETAMINE/METHAMP Negative Normal NEG [facility] Comment on above: Result Comment: AMPH /METH screening cut off = 1000 ng/mL Performed By: #### C BCA, CMP, 29574-0, PINR, 64107-8, 26660-2, 82302-7, 43762-1, THYR #### [facility] ([id number]) [address] [place] [address] 14446 BARBITURATES Negative Normal NEG [facility] [place] Comment on above: Result Comment: Yen iturates screening cut off value = 200 ng/mL Performed By: #### C BCA, CMP, 49078-3, PINR, 29657-4, 28442-4, 69186-2, 63413-8, THYR #### [facility] ([id number]) [address] [place] [address] 19348 BENZODIAZEPINES Negative Normal NEG [facility] [place] Comment on above: Result Comment: Carlos odiazepines screening cut off value = 200 ng/mL Performed By: #### C BCA, CMP, 20554-4, PINR, 00328-9, 05232-3, 16181-5, 23151-4, THYR #### [facility] ([id number]) [address] [place] [address] 42324 CANNABINOIDS Negative Normal NEG [facility] [place] Comment on above: Result Comment: Shirlene abinoids/THC screening cut off value = 50 ng/mL Performed By: #### C BCA, CMP, 86631-7, PINR, 76630-2, 86422-8, 21303-7, 94289-1, THYR #### [facility] ([id number]) [address] [place] [address] 31456 COCAINE METABOLITE Negative Normal NEG [facility] Comment on above: Result Comment: Coca ine screening cut off value = 300 ng/mL Performed By: #### C BCA, CMP, 88522-6, PINR, 60450-4, 00296-4, 84327-1, 86202-9, THYR #### [facility] ([id number]) [address] [place] [address] 08023 ECSTASY Negative Normal NEG [facility] Comment on above: Result Comment: Ecst asy screening cut off value = 500 ng/mL This report is intended for use in clinical monitoring or management of patients. Performed By: #### C BCA, CMP, 16647-1, PINR, 24416-7, 48047-9, 29433-6, 61780-2, THYR #### [facility] ([id number]) [address] [place] [address] 63641 METHADONE Negative Normal NEG [facility] Comment on above: Result Comment: Meth adone screening cut off value = 300 ng/mL. Performed By: #### C BCA, CMP, 42975-7, PINR, 75936-9, 37589-0, 68033-1, 93341-6, THYR #### [facility] ([id number]) [address] [place] [address] 25956 OPIATES Negative Normal NEG [facility] Comment on above: Result Comment: Opia yolande screening cut off value = 300 ng/mL NOTE: This test is used for the detection of codeine, hydrocodone (>1000 ng/mL), morphine and hydromorphone (>900 ng/mL) in urine. Performed By: #### C BCA, CMP, 33911-5, PINR, 67249-6, 98648-6, 57307-9, 74605-7, THYR #### [facility] ([id number]) [address] [place] [address] [place] [address] OXYCODONE Negative Normal NEG [facility] Comment on above: Result Comment: Oxyc odone screening cut off value = 300 ng/mL NOTE: This test is used for the detection of oxycodone and oxymorphone in urine. Performed By: #### C BCA, CMP, 21518-4, PINR, 24315-1, 21982-0, 70634-1, 34153-7, THYR #### [facility] ([id number]) [address] [place] [address] 60045 PHENCYCLIDINE Negative Normal NEG [facility] Comment on above: Result Comment: Phen cyclidine screening cut off value = 25 ng/mL Performed By: #### C MERCEDES, ERIK, 92377-3, PINR, 10829-2, 92435-6, 62080-5, 85858-5, THYR #### [facility] ([id number]) [address] [place] [address] 30070 Fibrin D-dimer DDU (PPP) [Ma ss/Vol]on 06-01-2023 D DIMER <150 Normal <255 [facility] Comment on above: Result Comment: Results <255 ng/mL DDU: The presence of a VTE can safely be excluded with a negative D-Dimer result and Wells score. A negative result doesn't exclude the possibility of DIC. The test be repeated along with other diagnostic tests if the patient's symptoms persist or worsen. [email or web address] Performed By: #### C MERCEDES, ERIK, 54970-7, PINR, 98321-7, 54397-7, 53676-7, 56557-3, THYR #### [facility] ([id number]) [address] [place] [address] 80799 Lead (BldV) [Mass/Vol]on LEAD, VENOUS 33.8 mcg/dL High <3.5 [facility] Comment on above: Result Comment: NOTE ADDITIONAL INFORMATION Testing performed by Inductively Coupled Plasma-Mass Spectrometry (ICP-MS). This test was developed and its performance characteristics determined by [facility] in a manner consistent with CLIA requirements. This test has not been cleared or approved by the U.S. Food and Drug Administration. Performed By: #### C MERCEDES, CMP, 56915-3, PINR, 44106-3, 88831-2, 25798-0, 61926-0, THYR #### [facility] ([id number]) [address] [place] [address] 43672 MAGNESIUMon 06-01-2023 Magnesium [Mass/Vol] 2.1 mg/dL Normal 1.8-2.6 [facility] Comment on above: Performed By: #### C BCA, CMP, 89207-7, PINR, 94635-0, 72192-6, 90336-3, 63271-3, THYR #### [facility] ([id number]) [address] [place] [address] 78248 Natriuretic peptide B [Mass/ Vol]on 06-01-2023 BRN NATRIURETIC PEP <5 Normal <100.0 [facility] Comment on above: Performed By: #### C BCA, CMP, 20428-5, PINR, 60645-9, 26956-4, 85575-1, 53834-1, THYR #### [facility] ([id number]) [address] [place] [address] 00612 PROTIME AND INRon 06-01-2023 INR Coag (PPP) [Relative time] 1.1 {INR} Normal 0.8-1.1 [facility] Comment on above: Performed By: #### C BCA, CMP, 24684-3, PINR, 27008-2, 45822-4, 43683-5, 65682-6, THYR #### [facility] ([id number]) [address] [place] [address] 84239 PT Coag (PPP) [Time] 12.6 s Normal 9.8-13.2 [facility] Comment on above: Result Comment: NEW REFERENCE RANGE Performed By: #### C BCA, CMP, 61863-3, PINR, 43639-3, 35440-7, 83218-2, 40807-6, THYR #### [facility] ([id number]) [address] [place] [address], [place] [address] THYROID PROFILEon 06-01-2023 Free T4 [Mass/Vol] 0.88 ng/dL Normal 0.61-1.60 [facility] Comment on above: Performed By: #### C BCA, CMP, 02114-8, PINR, 50774-3, 08661-6, 35013-6, 27791-6, THYR #### [facility] ([id number]) [address] [place] [address] 35377 TSH 1.27 uIU/mL Normal 0.49-4.67 [facility] Comment on above: Performed By: #### C BCA, CMP, 45553-7, PINR, 32625-0, 63321-7, 42913-6, 97849-4, THYR #### [facility] ([id number]) [address] [place] [address] 00479 TROPONIN Ion 06-01-2023 Troponin I.cardiac [Mass/Vol] ng/mL Normal 0.00-0.04 [facility] Comment on above: Performed By: #### C BCA, CMP, 50873-5, PINR, 71992-5, 99729-1, 10688-7, 54227-6, THYR #### [facility] ([id number]) [address] [place] [address] 60170 URN MACROSCOPIC NURon 2023 BILIRUBIN FITO Negative Normal NEG [facility] Comment on above: Performed By: #### C BCA, CMP, 74164-6, PINR, 30381-2, 91145-5, 19708-3, 99926-4, THYR #### [facility] ([id number]) [address] [place] [address] 60321 BLOOD/HGB FITO Negative Normal NEG [facility] Comment on above: Performed By: #### C BCA, CMP, 06895-0, PINR, 79483-5, 60086-5, 30512-1, 86160-5, THYR #### [facility] ([id number]) [address] [place] [address] 89439 GLUCOSE FITO Negative Normal NEG [facility] Comment on above: Performed By: #### C BCA, CMP, 87157-9, PINR, 87649-0, 08835-3, 69370-7, 55079-7, THYR #### [facility] ([id number]) [address] [place] [address] [place] [address] KETONES FITO 40 mg/dL Abnormal NEG [facility] Comment on above: Performed By: #### C BCA, CMP, 61002-3, PINR, 30686-6, 14502-6, 80367-1, 21299-2, THYR #### [facility] ([id number]) [address] [place] [address] 39744 LEUKOCYTE ESTERASE FITO Negative Normal NEG [facility] Comment on above: Performed By: #### C BCA, CMP, 64923-7, PINR, 62119-5, 44010-0, 11735-8, 03703-3, THYR #### [facility] ([id number]) [address] [place] [address] 65201 NITRITE FITO Negative Normal NEG [facility] Comment on above: Performed By: #### C BCA, CMP, 53315-2, PINR, 09239-0, 17195-3, 02236-1, 34698-1, THYR #### [facility] ([id number]) [address] [place] [address] 91340 PH FITO 5.5 Normal 5.0-8.5 [facility] Comment on above: Performed By: #### C BCA, CMP, 62142-1, PINR, 61423-6, 57787-6, 13196-1, 21648-4, THYR #### [facility] ([id number]) [address] [place] [address] [place] [address] PROTEIN FITO Negative Normal NEG [facility] Comment on above: Performed By: #### C BCA, CMP, 94525-8, PINR, 89743-6, 26000-3, 19971-8, 25335-8, THYR #### [facility] ([id number]) [address] [place] [address] 56857 SPECIFIC GRAVITY FITO 1.025 Normal 1.003-1.035 [facility] Comment on above: Performed By: #### C BCA, CMP, 37335-8, PINR, 98877-6, 58205-4, 22021-8, 82905-6, THYR #### [facility] ([id number]) [address] [place] [address] UROBILINOGEN FITO 0.2 eu/dL Normal <1.1 [facility] Comment on above: Performed By: #### C BCA, CMP, 68743-0, PINR, 45874-9, 95125-4, 17814-2, 75797-4, THYR #### [facility] ([id number]) [address] [place] [address] 95757 XR CHEST 1 VWon 06-01-2023 XR CHEST [...] Pardo DO on 06/01/2023 3:32 PM Normal [facility] aPTT Coag (PPP) [Time]on aPTT Coag (Bld) [Time] 35 s Normal 26-37 [facility] Comment on above: Result Comment: NEW REFERENCE RANGE Performed By: #### C BCA, CMP, 87415-5, PINR, 86278-5, 60093-4, 16083-9, 83687-5, THYR #### [facility] ([id number]) [address] [place] [address], [place] [address] LEAD,ADULTon 09-05-2022 Lead, Blood (Adult) 45.4 ug/dL Invalid Interpretation Code 0.0-3.4 [facility] Comment on above: Result Comment: Test ing performed by Inductively coupled plasma/Mass Spectrometry. Verified by repeat analysis Analysis by inductively coupled plasma/mass spectrometry (ICP/MS) Environmental Exposure: WHO Recommendation <20.0 Occupational Exposure: OSHA Lead Std 40.0 CHAZ 30.0 . Detection Limit = 1.0 Performed By: #### L EADA #### [facility] [address] [place] [address] Dr. Rachel COLLINS,ADULTon 09-01-2022 Lead, Blood (Adult) CLOTWB Normal [facility] Comment on above: Result Comment: Test not performed. Whole blood specimen partially or completely clotted. A common cause is insufficient mixing upon collection. Testing performed by Inductively coupled plasma/Mass Spectrometry. contacted Nohelia at your facility on 09-01-2022 Environmental Exposure: WHO Recommendation <20.0 Occupational Exposure: OSHA Lead Std 40.0 CHAZ 30.0 . Detection Limit = 1.0 Performed By: #### I NSULIN #### [facility] [address] [place] [address] Dr. Rachel Cortez LEAD,ADULTon 08-30-2022 Lead, Blood (Adult) CLOTWB Normal [facility] Comment on above: Result Comment: Test not performed. Whole blood specimen partially or completely clotted. A common cause is insufficient mixing upon collection. Testing performed by Inductively coupled plasma/Mass Spectrometry. contacted Taya at your facility on 08-30-2022 Environmental Exposure: WHO Recommendation <20.0 Occupational Exposure: OSHA Lead Std 40.0 CHAZ 30.0 . Detection Limit = 1.0 Performed By: #### L EADA #### [facility] [address] [place] [address] Dr. Rachel BOJORQUEZon 08-29-2022 Natriuretic peptide B (Bld) [Mass/Vol] 10.0 pg/mL Normal <=450.0 [facility] Comment on above: Performed By: #### C MP, TSH, BNP #### [facility] [address] [place] [address] Dr. Rachel Cortez CBC AUTO DIFFon 08-29-2022 BASO # 0.0 103/ul Normal 0.0-0.1 [facility] Comment on above: Performed By: #### C BC #### [facility] [address] [place] [address] Dr. Rachel Cortez Basophils/100 WBC (Bld) 0.5 % Normal 0.2-2.0 [facility] Comment on above: Performed By: #### C BC #### [facility] [address] [place] [address] Dr. Rachel Cortez EO # 0.2 103/ul Normal 0.0-0.7 [facility] Comment on above: Performed By: #### C BC #### [facility] [address] [place] [address] Dr. Rachel Cortez Eosinophils/100 WBC (Bld) 2.7 % Normal 0.9-7.0 [facility] Comment on above: Performed By: #### C BC #### [facility] [address] [place] [address] Dr. Rachel Cortez Erythrocyte distribution width (RBC) [Ratio] 12.3 % Normal 11.0-15.0 [facility] Comment on above: Performed By: #### C BC #### [facility] [address] [place] [address] Dr. Rachel Cortez Hematocrit (Bld) [Volume fraction] 40.9 % Critically low 42.0-54.0 [facility] Comment on above: Performed By: #### C BC #### [facility] [address] [place] [address] Dr. Rachel Cortez Hemoglobin (Bld) [Mass/Vol] 13.9 g/dL Critically low 14.0-18.0 [facility] Comment on above: Performed By: #### C BC #### [facility] [address] [place] [address] Dr. Rachel Cortez IG # 0.02 10e3/ul Normal 0.00-0.03 [facility] Comment on above: Performed By: #### C BC #### [facility] [address] [place] [address] Dr. Rachel Cortez IG % 0.3 % Normal 0.0-0.5 [facility] Comment on above: Performed By: #### C BC #### [facility] [address] [place] [address] Dr. Rachel Cortez LYMPH # 1.6 103/ul Normal 1.2-3.8 [facility] Comment on above: Performed By: #### C BC #### [facility] [address] [place] [address] Dr. Rachel Cortez Lymphocytes/100 WBC (Bld) 21.2 % Normal 20.5-60.0 [facility] Comment on above: Performed By: #### C BC #### [facility] [address] [place] [address] Dr. Rachel Cortez MANUAL DIFF REQ NO Normal [facility] Comment on above: Performed By: #### C BC #### [facility] [address] [place] [address] Dr. Rachel Cortez MCH (RBC) [Entitic mass] 30.3 pg Normal 25.9-34.0 [facility] Comment on above: Performed By: #### C BC #### [facility] [address] [place] [address] Dr. Rachel Cortez MCHC (RBC) [Mass/Vol] 34.0 g/dL Normal 29.9-35.2 [facility] Comment on above: Performed By: #### C BC #### [facility] [address] [place] [address] Dr. Rachel Cortez MCV (RBC) [Entitic vol] 89.3 fL Normal 80.0-94.0 [facility] Comment on above: Performed By: #### C BC #### [facility] [address] [place] [address] Dr. Rachel Cortez MONO # 0.6 103/ul Normal 0.3-0.8 [facility] Comment on above: Performed By: #### C BC #### [facility] [address] [place] [address] Dr. Rachel Cortez Monocytes/100 WBC (Bld) 8.6 % Normal 1.7-12.0 [facility] Comment on above: Performed By: #### C BC #### [facility] [address] [place] [address] Dr. Rachel Cortez NEUT # 5.0 103/ul Normal 1.4-6.5 [facility] Comment on above: Performed By: #### C BC #### [facility] [address] [place] [address] Dr. Rachel Cortez Neutrophils/100 WBC (Bld) 66.7 % Normal 43.0-75.0 [facility] Comment on above: Performed By: #### C BC #### [facility] [address] [place] [address] Dr. Rachel Cortez Platelet mean volume (Bld) [Entitic vol] 10.2 fL Normal 9.5-13.5 [facility] Comment on above: Performed By: #### C BC #### [facility] [address] [place] [address] Dr. Rachel Cortez PLT 198 103/ul Normal 150-450 [facility] Comment on above: Performed By: #### C BC #### [facility] [address] [place] [address] Dr. Rachel Cortez RBC 4.58 106/ul Critically low 4.70-6.10 [facility] Comment on above: Performed By: #### C BC #### [facility] [address] [place] [address] Dr. Rachel Cortez WBC 7.5 103/ul Normal 4.0-11.0 [facility] Comment on above: Performed By: #### C BC #### [facility] [address] [place] [address] Dr. Rachel Cortez FREE T4on 05-08-2023 Free T4 [Mass/Vol] 0.84 ng/dL Normal 0.76-1.46 [facility] Comment on above: Performed By: #### I KANDIS, FT4 #### [facility] [address] [place] [address] Dr. Rachel Cortez IRONon 08-29-2022 Iron [Mass/Vol] 86.0 ug/dL Normal 65.0-175.0 [facility] Comment on above: Performed By: #### I KANDIS, FT4 #### [facility] [address] [place] [address] Dr. Rachel Cortez PROF 14(COMP METB)on 023 Albumin [Mass/Vol] 4.0 g/dL Normal 3.4-5.0 [facility] Comment on above: Performed By: #### C MP, TSH, BNP #### [facility] [address] [place] [address] Dr. Rachel Cortez Albumin/Globulin [Mass ratio] 1.2 {ratio} Normal [facility] Comment on above: Performed By: #### C MP, TSH, BNP #### [facility] [address] [place] [address] Dr. Rachel Cortez ALP [Catalytic activity/Vol] 103 U/L Normal 46-116 [facility] Comment on above: Performed By: #### C MP, TSH, BNP #### [facility] [address] [place] [address] Dr. Rachel Cortez ALT [Catalytic activity/Vol] 39 U/L Normal 16-63 [facility] Comment on above: Performed By: #### C MP, TSH, BNP #### [facility] [address] [place] [address] Dr. Rachel Cortez Anion gap [Moles/Vol] 10.2 mmol/L Normal [facility] Comment on above: Performed By: #### C MP, TSH, BNP #### [facility] [address] [place] [address] Dr. Rachel Cortez AST [Catalytic activity/Vol] 20 U/L Normal 15-37 [facility] Comment on above: Performed By: #### C MP, TSH, BNP #### [facility] [address] [address] [address] Rachel oCrtez Bilirubin [Mass/Vol] 0.3 mg/dL Normal 0.2-1.0 [facility] Comment on above: Performed By: #### C MP, TSH, BNP #### [facility] [address] [place] [address] Dr. Rachel Cortez Calcium [Mass/Vol] 9.8 mg/dL Normal 8.5-10.1 [facility] Comment on above: Performed By: #### C MP, TSH, BNP #### [facility] [address] [place] [address] Dr. Rachel Cortez Chloride [Moles/Vol] 105 mmol/L Normal 98-107 [facility] Comment on above: Performed By: #### C MP, TSH, BNP #### [facility] [address] [place] [address] Dr. Rachel Cortez CO2 [Moles/Vol] 29.9 mmol/L Normal 21.0-32.0 [facility] Comment on above: Performed By: #### C MP, TSH, BNP #### [facility] [address] [place] [address] Dr. Rachel Crotez Creatinine [Mass/Vol] 1.19 mg/dL Normal 0.70-1.30 [facility] Comment on above: Performed By: #### C MP, TSH, BNP #### [facility] [address] [place] [address] Dr. Rachel Cortez EGFR-AF ITALIAN >60 Normal >=60 [facility] Comment on above: Performed By: #### C MP, TSH, BNP #### [facility] [address] [place] [address] Dr. Rachel Cortez EGFR-NON AF ITALIAN >60 Normal >=60 [facility] Comment on above: Performed By: #### C MP, TSH, BNP #### [facility] [address] [place] [address] Dr. Rachel Cortez Globulin (S) [Mass/Vol] 3.4 g/dL Normal [facility] Comment on above: Performed By: #### C MP, TSH, BNP #### [facility] [address] [place] [address] Dr. Rachel Cortez Glucose [Mass/Vol] 105 mg/dL Normal 74-106 [facility] Comment on above: Performed By: #### C MP, TSH, BNP #### [facility] [address] [place] [address] Dr. Rachel Cortez Potassium [Moles/Vol] 4.1 mmol/L Normal 3.5-5.1 [facility] Comment on above: Performed By: #### C MP, TSH, BNP #### [facility] [address] [place] [address] Dr. Rachel Cortez Protein [Mass/Vol] 7.4 g/dL Normal 6.4-8.2 [facility] Comment on above: Performed By: #### C MP, TSH, BNP #### [facility] [address] [place] [address] Dr. Rachel Cortez Sodium [Moles/Vol] 141 mmol/L Normal 136-145 [facility] Comment on above: Performed By: #### C MP, TSH, BNP #### [facility] [address] [place] [address] Dr. Rachel Cortez Urea nitrogen [Mass/Vol] 16.0 mg/dL Normal 7.0-18.0 [facility] Comment on above: Performed By: #### C MP, TSH, BNP #### [facility] [address] [place] [address] Dr. Rachel Cortez Urea nitrogen/Creatinine [Mass ratio] 13.4 mg/mg Normal [facility] Comment on above: Performed By: #### C MP, TSH, BNP #### [facility] [address] [place] [address] Dr. Rachel Cortez TSHon 08-29-2022 TSH 0.978 uIU/mL Normal 0.358-3.740 [facility] Comment on above: Performed By: #### I NSULIN #### [facility] [address] [address] [address] FACIAL BONES WO [...] WILFRID CAMARENA Date: 2022-08-11 18:30 Normal [facility] CT HEAD WO CONon 08-11-2022 CT [...] MARLYS MUNOZ Date: 2022-08-11 19:49 Normal [facility] INSULINon 05-09-2022 Insulin 9.9 uIU/mL Normal 2.6-24.9 [facility] Comment on above: Performed By: #### I NSULIN #### [facility] [address] [place] [address] Dr. Rachel Cortez CBC AUTO DIFFon 05-07-2022 BASO # 0.1 103/ul Normal 0.0-0.1 [facility] Comment on above: Performed By: #### I NSULIN #### [facility] [address] [place] [address] Dr. Rachel Cortez Basophils/100 WBC (Bld) 0.7 % Normal 0.2-2.0 [facility] Comment on above: Performed By: #### I NSULIN #### [facility] [address] [place] [address] Dr. Rachel Cortez EO # 0.0 103/ul Normal 0.0-0.7 [facility] Comment on above: Performed By: #### I NSULIN #### [facility] [address] [place] [address] Dr. Rachel Cortez Eosinophils/100 WBC (Bld) 0.1 % Critically low 0.9-7.0 [facility] Comment on above: Performed By: #### I NSULIN #### [facility] [address] [place] [address] Dr. Rachel Cortez Erythrocyte distribution width (RBC) [Ratio] 12.2 % Normal 11.0-15.0 [facility] Comment on above: Performed By: #### I NSULIN #### [facility] [address] [place] [address] Dr. Rachel Cortez Hematocrit (Bld) [Volume fraction] 41.1 % Critically low 42.0-54.0 [facility] Comment on above: Performed By: #### I NSULIN #### [facility] [address] [place] [address] Dr. Rachel Cortez Hemoglobin (Bld) [Mass/Vol] 14.1 g/dL Normal 14.0-18.0 [facility] Comment on above: Performed By: #### I NSULIN #### [facility] [address] [place] [address] Dr. Rachel Cortez IG # 0.03 10e3/ul Normal 0.00-0.03 [facility] Comment on above: Performed By: #### I NSULIN #### [facility] [address] [place] [address] [address] Rachel Cortez IG % 0.4 % Normal 0.0-0.5 [facility] Comment on above: Performed By: #### I NSULIN #### [facility] [address] [place] [address] Dr. Rachel Cortez LYMPH # 2.3 103/ul Normal 1.2-3.8 [facility] Comment on above: Performed By: #### I NSULIN #### [facility] [address] [place] [address] Dr. Rachel Cortez Lymphocytes/100 WBC (Bld) 30.8 % Normal 20.5-60.0 [facility] Comment on above: Performed By: #### I NSULIN #### [facility] [address] [place] [address] Dr. Rachel Cortez MANUAL DIFF REQ NO Normal [facility] Comment on above: Performed By: #### I NSULIN #### [facility] [address] [place] [address] Dr. Rachel Cortez MCH (RBC) [Entitic mass] 29.9 pg Normal 25.9-34.0 [facility] Comment on above: Performed By: #### I NSULIN #### [facility] [address] [place] [address] Dr. Rachel Cortez MCHC (RBC) [Mass/Vol] 34.3 g/dL Normal 29.9-35.2 [facility] Comment on above: Performed By: #### I NSULIN #### [facility] [address] [place] [address] Dr. Rachel Cortez MCV (RBC) [Entitic vol] 87.3 fL Normal 80.0-94.0 [facility] Comment on above: Performed By: #### I NSULIN #### [facility] [address] [address] [address] Rachel Cortez MONO # 0.7 103/ul Normal 0.3-0.8 [facility] Comment on above: Performed By: #### I NSULIN #### [facility] [address] [place] [address] Dr. Rachel Cortez Monocytes/100 WBC (Bld) 8.9 % Normal 1.7-12.0 [facility] Comment on above: Performed By: #### I NSULIN #### [facility] [address] [place] [address] Dr. Rachel Cortez NEUT # 4.3 103/ul Normal 1.4-6.5 [facility] Comment on above: Performed By: #### I NSULIN #### [facility] [address] [place] [address] Dr. Rachel Cortez Neutrophils/100 WBC (Bld) 59.1 % Normal 43.0-75.0 [facility] Comment on above: Performed By: #### I NSULIN #### [facility] [address] [place] [address] Dr. Rachel Cortez Platelet mean volume (Bld) [Entitic vol] 9.9 fL Normal 9.5-13.5 [facility] Comment on above: Performed By: #### I NSULIN #### [facility] [address] [place] [address] Dr. Rachel Cortez PLT 184 103/ul Normal 150-450 [facility] Comment on above: Performed By: #### I NSULIN #### [facility] [address] [place] [address] Dr. Rachel Cortez RBC 4.71 106/ul Normal 4.70-6.10 [facility] Comment on above: Performed By: #### I NSULIN #### [facility] [address] [place] [address] Dr. Rachel Cortez WBC 7.3 103/ul Normal 4.0-11.0 [facility] Comment on above: Performed By: #### I NSULIN #### [facility] [address] [place] [address] Dr. Rachel Cortez CULTURE URINEon 05-07-2022 CULTURE URINE Culture Observations: LIGHT GROWTH OF MIXED SKIN NILES. NO POTENTIAL PATHOGENS SEEN. Normal [facility] Comment on above: Performed By: #### I NSULIN #### [facility] [address] [place] [address] Dr. Rachel Cortez FREE THYROXINE INDEX T7on FTI 2.07 Normal 1.30-4.50 [facility] Comment on above: Performed By: #### I NSULIN #### [facility] [address] [place] [address] Dr. Rachel Cortez T3U 35.0 % Normal 33.0-40.0 [facility] Comment on above: Performed By: #### I NSULIN #### [facility] [address] [place] [address] Dr. Rachel Cortez T4 [Mass/Vol] 5.90 ug/dL Normal 4.50-12.10 [facility] Comment on above: Performed By: #### I NSULIN #### [facility] [address] [place] [address] Dr. Rachel Cortez GLYCOHEMOGLOBIN A1Con 2022 ADA RECOMMENDATION SEE BELOW Normal [facility] Comment on above: Result Comment: ADA RECOMMENDED LIMIT 4.0 - 6.0 ADA THERAPEUTIC TARGET < 7.0 ACTION SUGGESTED > 7.0 Performed By: #### A 1C #### [facility] [address] [place] [address] Dr. Rachel Cortez Glucose [Mass/Vol] 100 mg/dL Normal [facility] Comment on above: Performed By: #### A 1C #### [facility] [address] [place] [address] Dr. Rachel Cortez HbA1c (Bld) [Mass fraction] 5.1 % Normal 4.5-6.2 [facility] Comment on above: Performed By: #### A 1C #### [facility] [address] [place] [address] Dr. Rachel Cortez IRONon 05-07-2022 Iron [Mass/Vol] 104.0 ug/dL Normal 65.0-175.0 [facility] Comment on above: Performed By: #### I NSULIN #### [facility] [address] [place] [address] [address] Rachel Cortez LIPID PROFILEon 05-07-2022 CHOL-HDL RATIO NORM SEE BELOW Normal [facility] [place] Comment on above: Result Comment: 3.3 - 4.4 LOW RISK 4.4 - 7.1 AVERAGE RISK 7.1 - 11.0 MODERATE RISK >11.0 HIGH RISK Performed By: #### C MP, LIPID #### [facility] [address] [address] [address] Rachel Cortez Cholesterol [Mass/Vol] 147 mg/dL Normal <=200 [facility] Comment on above: Performed By: #### C MP, LIPID #### [facility] [address] [address] [address] Rachel Cortez Cholesterol in HDL [Mass/Vol] 56 mg/dL Normal 40-60 [facility] Comment on above: Performed By: #### C MP, LIPID #### [facility] [address] [place] [address] [address] Rachel Cortez Cholesterol in LDL [Mass/Vol] 77.8 mg/dL Normal [facility] Comment on above: Performed By: #### C MP, LIPID #### [facility] [address] [place] [address] [address] Rachel Cortez Cholesterol.total/Ch olesterol in HDL [Mass ratio] 2.6 {ratio} Normal [facility] Comment on above: Performed By: #### C MP, LIPID #### [facility] [address] [place] [address] [address] Rachel Cortez HDL NORMAL > or = 60 mg/dl - LOW CARDIOVASCULAR RISK <40 mg/dl - HIGH CARDIOVASCULAR RISK Normal [facility] Comment on above: Performed By: #### C MP, LIPID #### [facility] [address] [place] [address] [address] Rachel Cortez LDL CALC NORMAL SEE BELOW Normal [facility] Comment on above: Result Comment: <100 mg/dl OPTIMAL 100 - 129 mg/dl NEAR OR ABOVE OPTIMAL 130 - 159 mg/dl BORDERLINE HIGH 160 - 189 mg/dl HIGH >190 mg/dl VERY HIGH Performed By: #### C MP, LIPID #### [facility] [address] [place] [address] Dr. Rachel Cortez Triglyceride [Mass/Vol] 66 mg/dL Normal <=150 [facility] Comment on above: Performed By: #### C MP, LIPID #### [facility] [address] [place] [address] Dr. Rachel Cortez VLDL CALC 13.2 mg/dL Normal [facility] Comment on above: Performed By: #### C MP, LIPID #### [facility] [address] [place] [address] Dr. Rachel Cortez PROF 14(COMP METB)on 023 Albumin [Mass/Vol] 4.0 g/dL Normal 3.4-5.0 [facility] Comment on above: Performed By: #### C MP, LIPID #### [facility] [address] [place] [address] Dr. Rachel Cortez Albumin/Globulin [Mass ratio] 1.3 {ratio} Normal [facility] Comment on above: Performed By: #### C MP, LIPID #### [facility] [address] [place] [address] Dr. Rachel Cortez ALP [Catalytic activity/Vol] 86 U/L Normal 46-116 [facility] Comment on above: Performed By: #### C MP, LIPID #### [facility] [address] [place] [address] Dr. Rachel Cortez ALT [Catalytic activity/Vol] 35 U/L Normal 16-63 [facility] Comment on above: Performed By: #### C MP, LIPID #### [facility] [address] [place] [address] Dr. Rachel Cortez Anion gap [Moles/Vol] 9.9 mmol/L Normal [facility] Comment on above: Performed By: #### C MP, LIPID #### [facility] [address] [place] [address] Dr. Rachel Cortez AST [Catalytic activity/Vol] 22 U/L Normal 15-37 [facility] Comment on above: Performed By: #### C MP, LIPID #### [facility] [address] [place] [address] [address] Rachel Cortez Bilirubin [Mass/Vol] 0.4 mg/dL Normal 0.2-1.0 [facility] Comment on above: Performed By: #### C MP, LIPID #### [facility] [address] [place] [address] Dr. Rachel Cortez Calcium [Mass/Vol] 10.1 mg/dL Normal 8.5-10.1 [facility] Comment on above: Performed By: #### C MP, LIPID #### [facility] [address] [place] [address] Dr. Rachel Cortez Chloride [Moles/Vol] 107 mmol/L Normal 98-107 [facility] Comment on above: Performed By: #### C MP, LIPID #### [facility] [address] [place] [address] Dr. Rachel Cortez CO2 [Moles/Vol] 30.0 mmol/L Normal 21.0-32.0 [facility] Comment on above: Performed By: #### C MP, LIPID #### [facility] [address] [place] [address] Dr. Rachel Cortez Creatinine [Mass/Vol] 1.16 mg/dL Normal 0.70-1.30 [facility] Comment on above: Performed By: #### C MP, LIPID #### [facility] [address] [place] [address] Dr. Rachel Cortez EGFR-AF ITALIAN >60 Normal >=60 [facility] Comment on above: Performed By: #### C MP, LIPID #### [facility] [address] [place] [address] Dr. Rachel Cortez EGFR-NON AF ITALIAN >60 Normal >=60 [facility] Comment on above: Performed By: #### C MP, LIPID #### [facility] [address] [place] [address] Dr. Rachel Cortez Globulin (S) [Mass/Vol] 3.0 g/dL Normal [facility] Comment on above: Performed By: #### C MP, LIPID #### [facility] [address] [place] [address] [address] Rachel Cortez Glucose [Mass/Vol] 88 mg/dL Normal 74-106 [facility] Comment on above: Performed By: #### C MP, LIPID #### [facility] [address] [place] [address] [address] Rachel Cortez Potassium [Moles/Vol] 3.9 mmol/L Normal 3.5-5.1 [facility] Comment on above: Performed By: #### C MP, LIPID #### [facility] [address] [place] [place] [address] [address] Rachel Cortez Protein [Mass/Vol] 7.0 g/dL Normal 6.4-8.2 [facility] Comment on above: Performed By: #### C MP, LIPID #### [facility] [address] [address] [address] Rachel Cortez Sodium [Moles/Vol] 143 mmol/L Normal 136-145 [facility] Comment on above: Performed By: #### C MP, LIPID #### [facility] [address] [place] [address] [address] Rachel Cortez Urea nitrogen [Mass/Vol] 16.0 mg/dL Normal 7.0-18.0 [facility] Comment on above: Performed By: #### C MP, LIPID #### [facility] [address] [place] [address] [address] Rachel Cortez Urea nitrogen/Creatinine [Mass ratio] 13.8 mg/mg Normal [facility] Comment on above: Performed By: #### C MP, LIPID #### [facility] [address] [address] [address] Rachel Cortez TSHon 05-07-2022 TSH 2.417 uIU/mL Normal 0.358-3.740 [facility] Comment on above: Performed By: #### I NSULIN #### [facility] [address] [place] [address] [address] Rachel Cortez UA RANDOM W/MICROSCOPICon BACTERIA NONE SEEN Normal NONE SEEN [facility] Comment on above: Performed By: #### I NSULIN #### [facility] [address] [place] [address] Dr. Rachel Cortez Bilirubin Ql (U) Negative Normal NEGATIVE [facility] Comment on above: Performed By: #### I NSULIN #### [facility] [address] [place] [address] Dr. Rachel Cortez CAST NONE SEEN Normal NONE SEEN [facility] Comment on above: Performed By: #### I NSULIN #### [facility] [address] [place] [address] Dr. Rachel Cortez Clarity (U) CLEAR Normal CLEAR [facility] Comment on above: Performed By: #### I NSULIN #### [facility] [address] [place] [address] Dr. Rachel Cortez Color (U) YELLOW Normal YELLOW [facility] Comment on above: Performed By: #### I NSULIN #### [facility] [address] [place] [address] Dr. Rachel Cortez Crystals LM Nom (Urine sed) NONE SEEN Normal NONE SEEN [facility] Comment on above: Performed By: #### I NSULIN #### [facility] [address] [place] [address] Dr. Rachel Cortez Epithelial cells LM Ql (Urine sed) NONE SEEN Normal NONE SEEN /RARE [facility] Comment on above: Performed By: #### I NSULIN #### [facility] [address] [place] [address] Dr. Rachel Cortez Glucose Ql (U) Negative Normal NEGATIVE [facility] Comment on above: Performed By: #### I NSULIN #### [facility] [address] [place] [address] Dr. Rachel Cortez Hemoglobin Ql (U) Negative Normal NEGATIVE [facility] Comment on above: Performed By: #### I NSULIN #### [facility] [address] [place] [address] Dr. Rachel Cortez Ketones Ql (U) Negative Normal NEGATIVE [facility] Comment on above: Performed By: #### I NSULIN #### [facility] [address] [place] [address] [address] Rachel Cortez LEUKOCYTES Negative Normal NEGATIVE [facility] Comment on above: Performed By: #### I NSULIN #### [facility] [address] [place] [address] Dr. Rachel Cortez MUCOUS MODERATE Abnormal NONE SEEN [facility] Comment on above: Performed By: #### I NSULIN #### [facility] [address] [place] [address] [address] Rachel Cortez Nitrite Ql (U) Negative Normal NEGATIVE [facility] Comment on above: Performed By: #### I NSULIN #### [facility] [address] [place] [address] Dr. Rachel Cortez pH (U) 6.0 [pH] Normal 5-9 [facility] Comment on above: Performed By: #### I NSULIN #### [facility] [address] [place] [address] Dr. Rachel Cortez RBC NONE SEEN Abnormal 0-2 [facility] Comment on above: Performed By: #### I NSULIN #### [facility] [address] [place] [address] Dr. Rachel Cortez SPEC GRAVITY 1.030 Abnormal 1.005-<=1.025 [facility] Comment on above: Performed By: #### I NSULIN #### [facility] [address] [place] [address] Dr. Rachel Cortez UA PROTEIN Negative Normal NEGATIVE/ TRACE [facility] Comment on above: Performed By: #### I NSULIN #### [facility] [address] [place] [address] Dr. Rachel Cortez Urobilinogen Qn (U) 1.0 {Colby'U}/dL Normal 0.2 - 1. 0 [facility] Comment on above: Performed By: #### I NSULIN #### [facility] [address] [place] [address] Dr. Rachel Cortez WBC NONE SEEN Normal NONE SEEN [facility] Comment on above: Performed By: #### I NSULIN #### [facility] [address] [place], [place] [address] Dr. Rachel Cortez XR LSPINE MIN 4 [...] by: MARINA MAIN Date: 2022-05-06 16:[address] [facility] Coding Summary.on 03-31-2020 Coding Summary. CODING DATE: 03/31/2020 FINAL [facility] STATUS: Home (Routine DC) PAYOR: Self Pay [...] Barajas Date Saved: 03/31/2020 08:22 am Normal [facility] Consent for Treatmenton Consent for Treatment [id number] #1.00CD:127 Normal [facility] Discharge Instructionson Discharge Instructions [id number] 6#1.00CD:127 Normal [facility] ED Clinical Summaryon 2019 ED Clinical Summary [address] [address] ED Clinical Summary Person Information Name: REY BAXTER [place] Age: 39 Years : 1980 Sex: Male Language: Indian PCP: Irena Gardner MD Marital Status: Single [...] 03/30/2020 14:05:58 03/30/2020 14:05:58 03/30/2020 14:05:58 ADDRESS: [address] [place] [id number] [facility] DOC NOTES: MEDICAL INFORMATION: Prescriptions Given: New Medications Printed Prescriptions acetaminophen-hydroc odone (Lincoln 325 mg-5 mg oral tablet) 1 Tablets [...] Follow up: With: Address: When: Irena Gardner [address] [place] [address], [facility] [address] [place] [phone] Business (1) In 3 days 04/02/2020 DIAGNOSIS: Lumbar strain Normal [facility] ED Note-Physicianon 03-30-20 ED Note-Physician Basic Information Time Seen: Darrick Gibbs PA-C 03/30/2020 11:47 Chief Complaint Pt. presents to the ed with c/o left lower back pain that started last night while laying in bed. Pt. took 4 ibuprofen [employer]. History of Present Illness 39-year-old male comes [...] and follow-up recommendations Discharge Prescription List Prescriptions Lincoln 325 mg-5 mg oral tablet, 1 tab(s), Oral, q6hr, PRN predniSONE 20 mg Tab, 60 mg= 3 tab(s), Oral, Daily Robaxin-750 oral tablet, 1500 mg= 2 tab(s), Oral, TID Follow-up With When Contact Information Irena Gardner In 3 days 04/02/2020 [place] [address]- Business (1) Additional Instructions: Patient Education Lumbosacral Strain Attestation Patient seen and evaluated by the physician title i instructional assistant. Attending physician was present in the emergency department and supervised care. This report was transcribed using voice recognition software. Every effort was made to ensure accuracy, however, inadvertently computerized curve cleaner mistakes may be present. Appropriate healthcare PPE [...] oral syrup, 5 mL, Oral, QID, PRN Lincoln 325 mg-5 mg oral tablet, 1 tab(s), [...] acute abnormality Read By: Darrick Gibbs PA-C [facility] Comment on above: Result Comment: [...] Document Reviewed: 11/27/2013 ExitCare? Patient Information ?2015 Spoke. This information is not intended to replace advice given to you by your health care provider. Make sure you discuss any questions you have with your health care provider. Normal [facility] ED Patient Summaryon 020 ED Patient Summary [address] [address] Patient Discharge Instructions Person Information Name: REY BAXTER Age: 39 Years Arrival Date: 03/30/2020 11:37:37 Discharge Diagnosis: Lumbar strain Primary Care Physician: Irena Gardner MD Provider Information Primary Provider: Shaun Tomlinson DO Advanced Flitch Hanger:Darrick Gibbs PA-C The exam and treatment you received in the Emergency Department were for an urgent problem and are not intended as complete care. It is important that you follow up with a doctor, nurse practitioner, or physician?s title i instructional assistant for ongoing care. If your symptoms become worse or you do not improve as expected and you are unable to reach your usual health care provider, you should return to the Emergency Department. We are available 24 hours a day. REY BAXTER has been given the following list of patient education materials, prescriptions and follow-up instructions: Follow-up Instructions: With: Address: When: Irena Latia [address] [place] [address], [place] [address] [place] [address] Business (1) In 3 days 04/02/2020 In the event that this physician does not participate in your insurance network, please consult with your insurance company to find a nearby participating provider. Patient Education Materials: Lumbosacral Strain A MESSAGE TO ALL PATIENTS REGARDING OPIOIDS PRESCRIPTION OPIOIDS: WHAT YOU NEED TO KNOW Prescription opioids can be used to help relieve nrodpbio-qp-horrkb pain and are often prescribed following a [...] be struggling with addiction, tell your health career development associate and ask for guidance or call [facility] National Helpline at 5-341-001-TAXY. v Source: [place] Department of Health and Human Services/Center for Disease Control & Prevention [facility] Medications Given: Medication Dose Route orphenadrine 60.00 mg IntraMuscular Left Gluteus Medius acetaminophen-oxycod one 1.00 tab(s) Oral Medication Information: New Medications Printed Prescriptions acetaminophen-hydroc odone (Lincoln 325 mg-5 mg oral tablet) 1 Tablets [...] Comment: Pharmacy Information: Thank you for choosing [facility] Patient Education Materials: Lumbosacral [...] Document Reviewed: 11/27/2013 ExitCare? Patient Information ?2015 Spoke. This information is not intended to replace advice given to you by your health care provider. Make sure you discuss any questions you have with your health care provider. IJULIANNE BRIAN S , have received the following patient education materials/instructio ns and have verbalized understanding: Patient Education Materials: Lumbosacral Strain Follow-up Instructions: With: Address: When: Irena Gardner [address] [place] [address], [address] [place] [phone] Business (1) In 3 days 04/02/2020 Patient Signature Date Clinician/Nurse Signature Date 03/30/2020 14:06:00 [facility] Prescriptions/Work Noteson 1 05-31-2019 Prescriptions/Work Notes [id number] 2#1.00CD:127 [facility] XR Spine Lumbosacral 2 or [...] Mullen M.D. Transcribed by: caleb Technologist: MIGUEL [facility] Vital Signs Date Time Vital Sign Value Performing Clinician Myra chisholm 08-02-2023 15:48-0400 Body height 177.8 cm Ji Fajardo MD Work Phone: [facility] 08-02-2023 15:48-0400 Body weight 72.45 kg Ji Fajardo MD Work Phone: [facility] 08-02-2023 15:48-0400 Diastolic blood pressure 74 mm[Hg] Ji Fajardo MD Work Phone: [facility] 08-02-2023 15:48-0400 Heart rate 74 /min Ji Fajardo MD Work Phone: [facility] 08-02-2023 15:48-0400 Respiratory rate 18 /min Ji Fajardo MD Work Phone: [facility] 08-02-2023 15:48-0400 SaO2% (BldA) [Mass fraction] 98 % Ji Fajardo MD Work Phone: [facility] 08-02-2023 15:48-0400 Systolic blood pressure 115 mm[Hg] Ji Fajardo MD Work Phone: [facility] Encounters Encounter Date Encounter Type Care Provider Facility Start: 08-10-2023 End: 08-10-2023 ambulatory JI FAJARDO Facility:[facility] Start: 08-10-2023 End: 08-10-2023 ambulatory Jean Valencia PT Work Phone: Physical Therapy Comment on above: Dizziness Start: 08-08-2023 End: 08-08-[address] [facility] Start: 08-04-2023 Telephone encounter Ji Magdaleno Neurology [facility] Comment on above: Workers comp Start: 08-03-2023 End: 08-03-2023 ambulatory JI FAJARDO Facility:[facility] Start: 08-02-2023 End: 08-02-2023 ambulatory JI FAJARDO Facility:[facility] Start: 08-02-2023 End: 08-02-2023 Office outpatient new 45 minutes Ji Fajardo MD Work Phone: Neurology Headache [facility] Comment on above: Worsening headaches (Primary Dx); Dizziness; Toxic effect of lead, accidental or unintentional, initial encounter Start: 08-02-2023 Telephone encounter Ji Magdaleno Neurology [facility] Start: 08-01-2023 ambulatory Digna Chavez RN [facility] Start: 08-01-2023 Patient encounter procedure Digna Chavez RN NURSE CERTIFIED [employer] Comment on above: Referral Request Start: 06-21-2023 End: 06-21-2023 ambulatory OLLIEJUANJOSE NAVASMAYTE [facility] Start: 06-20-2023 End: 06-20-2023 ambulatory INDU JOSE MPEDRONATALYA [facility] Start: 06-02-2023 End: 06-03-2023 ambulatory JOHN MEEKS [facility] Start: 06-01-2023 End: 06-03-2023 Emergency department patient visit MAINE FERGUSON [facility] Start: 06-01-2023 End: 06-02-2023 ambulatory IRENA GARDNER [facility] Start: 09-01-2022 End: 09-02-[address] IRENA [...] above: Performed By: #### L EADA #### [facility] [address] [place] [address] Dr. Rachel Cortez Plan of Treatment Date Care Activity Detail Author Start: 06-02-2026 Diabetes Screening Diabetes Screenin g [facility] Start: 12-24-2023 Influenza vaccination Influenz a Vaccine (Season Ended) [facility] Start: 11-08-2023 End: 11-08-2023 Patient encounter procedure 11/08/2023 11:00 AM EDT Office Visit Neurology [address] [place] [address] Gina Dooley APRN.GYRO MECHANIC [address] [place], [place] [id number] Neurology Start: 07-29-2023 Diabetes Screening Diabetes Screenin g [facility] Start: 07-29-2023 Screening for malign ant neoplasm of colon [facility] Start: 04-24-2023 Behavioral Health Screening Behavioral Health Screening [facility] Start: 12-23-2022 Covid-19 Vaccine ( season) Covid-19 Vaccine () [facility] Start: 2013 Lipid panel Lipid Screening [facility] Start: 1997 Hepatitis B Vaccine (1 of 3 - 19+ 3-dose series) Hepatitis B Vaccine (1 of 3 - 19+ 3-dose series) [facility] Start: 1997 Urine microalbumin profile DTa P,Tdap,Td Vaccine (1 - Tdap) [facility] Start: 1996 Hepatitis C screening Hepatitis C Sc reening [facility] Start: 1996 HIV screening [facility] Payers Date Payer Category Payer Unknown [id number] 2022 Unknown [id number] 1978 Unknown [id number] 2.16.84 [id number] 1978 Unknown [id number] 2.16.84 [id number] 1978 Unknown [id number] 2.16.84 [id number] 1978 Unknown [id number] 2.16.84 [id number] 1978 Unknown [id number] 2.16.84 [id number] 1978 Unknown [id number] 2.16.84 [id number] 1978 Unknown [id number] 2.16.8 [id number] 1978 Unknown [id number] 2.16.8 [id number] 1978 Unknown [id number] 2.16.8 [id number] 1959 Unknown [id number] Social History Date Type Detail Facility Tobacco smoking stat [facility] Tobacco smoking consumption unknown [facility] Start: 1980 Sex Assigned At Not on file [facility] Start: 08-02-2023 Gender identity Not on file [facility] Start: 08-02-2023 Tobacco smoking stat [facility] Never smoked tobacco [facility] Start: 08-02-2023 Tobacco use and exposure Smokeless t obacco non-user [facility] Start: 08-02-2023 History of Social function [facility] National Score (1-10 0), lower number is lower risk 73 [facility] Clinical Notes 06-20-2023 to 08-10-2023 Jean Valencia PT - 08/10/2023 10:06 AM YUDYTJean Valencia PT - 08/10/2023 9:30 AM EDTTZander Lozada MA - 08/04/2023 9:08 AM Ji Kauffman MD - 08/02/2023 4:10 PM EDT Note Date & Type Note Facility 08-10-2023 Note HNO ID: [id number] Author: JEAN VALENCIA PT Service: ? Author Type: Physical Therapist Type: Progress Notes Filed: 08/14/2023 08:41 Note Text: Episode Visit Count: 1 Therapist That Will Accept/Oversee The Plan Of Care: Jean Valencia PT Start of Care Date: 08/10/23 Onset Date: 06/01/23 Patient Identified by Name and Date of : Yes REHABILITATION AND SPORTS THERAPY PHYSICAL THERAPY EVALUATION PLAN OF CARE: Assessment: Rey Baxter presents with chief complaint of dizziness and headaches. 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 Symptoms are improving. that interferes with physical activities, recreational activities . He presents with impairments in independence in exercise, patient reported outcome measures, posture, and symptom management. PROMIS? (Patient-Reported Outcomes Measurement Information System) scores were reviewed and identified as a rehabilitation concern. Prognosis for therapy is Good due to: current objective clinical presentation . He will benefit from skilled therapy services to meet the goals established for this plan of care as noted below. Goals for Episode of Care: created on 08/10/23 through 09/14/23 Patient will demonstrate normal active cervical spine range of motion to restore posture and complete ADLS with trace report of dizziness/imbalance. Patient will be independent with home exercise program and progression. Patient will return to prior level of function with all activities of daily living with trace reports of dizziness. Patient will deny dizziness with when on the move . Patient Goals: stop being dizzy Planned Interventions, Frequency, and Duration: Current Frequency: 1x/week Duration: 4 weeks Total Number of Visits Planned: (4) Planned Treatment Interventions: Neuromuscular re-education (24931), Manual therapy (06263), Therapeutic activities (11779), Self-prison management (07940), Therapeutic exercise (86207), Patient/Family/Caregiver Education PLAN FOR NEXT VISIT: Patient demonstrates good understanding of plan of care and treatment. The above goals and plan of care were discussed and agreed upon by patient/family. SUBJECTIVE: He reports dizziness , heart and headache. When he stands he gets dizzy. He reports his heart skips a beat. The dizziness is like a whozzy feeling. Patient Goals: stop being dizzy Functional Limitations: physical activities, recreational activities Prior Level of Function: Independent without limitations Intake Information: Prescription present Vestibular Symptoms present for: months Symptom onset: gradual Dizziness: Yes Description: dizziness, light headed Rating of current symptoms: 6/10 Frequency: Constant Duration: seconds Symptoms worsened by: (standing up) Symptoms improved by: being still, moving slow Imbalance: Yes Imbalance triggered by: (standing up) Fall Assessment: No falls Nausea: no Motion Sickness: None Headache: Yes Description: aching (posterior head and temples) Rating of current symptoms: 6/10 Location: temporal region, occipital region Frequency: Intermittent Duration: days Neck Symptoms: Yes Description: soreness Rating of current symptoms: 6/10 Frequency: Intermittent Duration: minutes Ear Symptoms: No Hearing Changes: No recent changes Tinnitus: No recent changes History of Syncope: Yes (syncopal) History of Migraine: No Pain: Pain Pain Location: (back problems) Post Treatment Pain Post Treatment Pain Level: No Change Post Treatment Symptoms: (no issues) PROMIS Scales 08/10/2023 Higher is Better Phys Func - Score 44 (mild dysfunction) Phys Func - Percentile 27 Self-Eff Symptom - Score 44 (Average) Self-Eff Symptom - Percentile 27 T-scores: mean of general population = 50. 5 points is clinically meaningfully difference Percentiles provide an indication of how the patient's score ranks in relation to the general population. Higher percentile rankings indicate better function/quality of life. 50th percentile is the average of the general population and indicates half of respondents had a worse score. OBJECTIVE MEASURES WITH LEVEL OF FUNCTION: Positional Testing Left Joel-Hallpike: Asymptomatic Right Nylen Barany: Asymptomatic Supine Head Center Testing: Asymptomatic Right Ear Down: Asymptomatic Left Ear Down: Asymptomatic Cervical Spine ROM Cervical ROM : Measurement AROM Cervical Rotation Right AROM (degrees) : 70 Degrees Cervical Rotation Left AROM (degrees) : 70 Degrees Functional Gait Assessment Gait level surface : 3 - Normal- walks 20' no assist device, good speed, no imbalance, normal gait pattern Change in gait speed: 3 - Normal- albe to smoothly change walking speed without loss of balance or gait deivations. Shows significant difference in walking speeds Gait and horizontal head turns: 3 - Normal- performs R/L head turns smoothly with no change in gait Gait and vertical head (more content not included)... [facility] 08-10-2023 History of Present illness Narrative Program_ID:[id number] Access Code: [email or web address] URL: [email or web address] Date: 08-10-2023 Prepared By: Jean Valencia Program Notes Exercises - Sit to Stand with Arms Crossed - 1 x daily - 7 x weekly - 3 sets - 10 reps - Sidestepping in Squat with Resistance and Arms Forward - 1 x daily - 7 x weekly - 3 sets - 10 reps - Standing Bicep Curls with Resistance - 1 x daily - 7 x weekly - 3 sets - 10 reps - Standing Row with Anchored Resistance - 1 x daily - 7 x weekly - 3 sets - 10 reps - Seated Cervical Retraction - 1 x daily - 7 x weekly - 3 sets - 10 reps - Shoulder extension with resistance - Neutral - 1 x daily - 7 x weekly - 3 sets - 10 reps - Standing Shoulder Horizontal Abduction with Resistance - 1 x daily - 7 x weekly - 3 sets - 10 reps - Standing Shoulder Diagonal Horizontal Abduction 60/120 Degrees with Resistance - 1 x daily - 7 x weekly - 3 sets - 10 reps Images from the original note were not included. Episode Visit Count: 1 Therapist That Will Accept/Oversee The Plan Of Care: Jean Valencia PT Start of Care Date: 08/10/23 Onset Date: 06/01/23 Patient Identified by Name and Date of : Yes REHABILITATION AND SPORTS THERAPY PHYSICAL THERAPY EVALUATION PLAN OF CARE: Assessment: Rey Baxter presents with chief complaint of dizziness and headaches. 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 Symptoms are improving. that interferes with physical activities, recreational activities . He presents with impairments in independence in exercise, patient reported outcome measures, posture, and symptom management. PROMIS (Patient-Reported Outcomes Measurement Information System) scores were reviewed and identified as a rehabilitation concern. Prognosis for therapy is Good due to: current objective clinical presentation . He will benefit from skilled therapy services to meet the goals established for this plan of care as noted below. Goals for Episode of Care: created on 08/10/23 through 09/14/23 Patient will demonstrate normal active cervical spine range of motion to restore posture and complete ADLS with trace report of dizziness/imbalance. Patient will be independent with home exercise program and progression. Patient will return to prior level of function with all activities of daily living with trace reports of dizziness. Patient will deny dizziness with when on the move . Patient Goals: stop being dizzy Planned Interventions, Frequency, and Duration: Current Frequency: 1x/week Duration: 4 weeks Total Number of Visits Planned: (4) Planned Treatment Interventions: Neuromuscular re-education (07524), Manual therapy (34182), Therapeutic activities (43135), Self-prison management (50938), Therapeutic exercise (49599), Patient/Family/Caregiver Education PLAN FOR NEXT VISIT: Patient demonstrates good understanding of plan of care and treatment. The above goals and plan of care were discussed and agreed upon by patient/family. SUBJECTIVE: He reports dizziness , heart and headache. When he stands he gets dizzy. He reports his heart skips a beat. The dizziness is like a whozzy feeling. Patient Goals: stop being dizzy Functional Limitations: physical activities, recreational activities Prior Level of Function: Independent without limitations Intake Information: Prescription present Vestibular Symptoms present for: months Symptom onset: gradual Dizziness: Yes Description: dizziness, light headed Rating of current symptoms: 610 Frequency: Constant Duration: seconds Symptoms worsened by: (standing up) Symptoms improved by: being still, moving slow Imbalance: Yes Imbalance triggered by: (standing up) Fall Assessment: No falls Nausea: no Motion Sickness: None Headache: Yes Description: aching (posterior head and temples) Rating of current symptoms: 6/10 Location: temporal region, occipital region Frequency: Intermittent Duration: days Neck Symptoms: Yes Description: soreness Rating of current symptoms: 10/01 Frequency: Intermittent Duration: minutes Ear Symptoms: No Hearing Changes: No recent changes Tinnitus: No recent changes History of Syncope: Yes (syncopal) History of Migraine: No Pain: Pain Pain Location: (back problems) Post Treatment Pain Post Treatment Pain Level: No Change Post Treatment Symptoms: (no issues) PROMIS Scales 08/10/2023 Higher is Better Phys Func - Score 44 (mild dysfunction) Phys Func - Percentile 27 Self-Eff Symptom - Score 44 (Average) Self-Eff Symptom - Percentile 27 T-scores: mean of general population = 50. 5 points is clinically meaningfully difference Percentiles provide an indication of how the patient's score ranks in relation to the general population. Higher percentile rankings indicate better function/quality of life. 50th percentile is the average of the general population and indicates half of respondents had a worse score. OBJECTIVE MEASURES WITH LEVEL OF FUNCTION: Positional Testing Left Joel-Hallpike: Asymptomatic Right Nylen Barany: Asymptomatic Supine Head Center Testing: Asymptomatic Right Ear Down: Asymptomatic Left Ear Down: Asymptomatic Cervical Spine ROM Cervical ROM : Measurement AROM Cervical Rotation Right AROM (degrees) : 70 Degrees Cervical Rotation Left AROM (degrees) : 70 Degrees Functional Gait Assessment Gait level surface : 3 - Normal- walks 20' no assist device, good speed, no imbalance, normal gait pattern Change in gait speed: 3 - Normal- albe to smoothly change walking speed without loss of balance or gait deivations. Shows significant difference in walking speeds Gait and horizontal head turns: 3 - Normal- performs R/L head turns smoothly with no change in gait Gait and vertical head turns: 3 - Normal- performs up/down head turns smoothly with no change in gait Gait and pivot: 3 - Normal- pivot turn safely within 3 sec, stops quickly, no loss of balance Step over obstacle: 3 - Normal- is able to steop over box without changing speed, no evidence of imbalance Gait with narrow base of support : 3 - Normal- is able to ambulate 10 steps heel to toe with no staggering Gait with eyes closed : 3 - Normal- walks 20' no assist device, good speed, no imbalance, normal gait pattern Ambulates backward : 3 - Normal- walks 20' no assist device, good speed, no imbalance, normal gait pattern, deviates no more than 6 outside 12 [address] Steps: 3 - Normal- alternating feet, no rail Functional Gait Assessment Total : 30 Education: Education Learning Preferences: Demonstration, Explanation, Performance, Printed Materials Barriers: None Learning/educational needs: Health promotion, Safety, Home exercise program, Plan of Care Education Provided: Yes, see treatment interventions for education provided Education Provided To: Patient Education Mode/Type: Demonstration, Explanation/Discussion, Literature/Printed Materials, Performance Response to Education/Teach Back: States/Identifies, Return Demonstration TREATMENT: PT Treatment Interventions: Self-Detention Management, Manual Therapy, Neuromuscular Re-Education Evaluation Therapeutic Exercise: Exercises - Sit to Stand with Arms Crossed - 1 x daily - 7 x weekly - 3 sets - 10 reps - Sidestepping in Squat with Resistance and Arms Forward - 1 x daily - 7 x weekly - 3 sets - 10 reps - Standing Bicep Curls with Resistance - 1 x daily - 7 x weekly - 3 sets - 10 reps - Standing Row with Anchored Resistance - 1 x daily - 7 x weekly - 3 sets - 10 reps - Seated Cervical Retraction - 1 x daily - 7 x weekly - 3 sets - 10 reps - Shoulder extension with resistance - Neutral - 1 x daily - 7 x weekly - 3 sets - 10 reps - Standing Shoulder Horizontal Abduction with Resistance - 1 x daily - 7 x weekly - 3 sets - 10 reps - Standing Shoulder Diagonal Horizontal Abduction 60/120 Degrees with Resistance - 1 x daily - 7 x weekly - 3 sets - 10 reps Skilled Intervention: Patient was educated in proper exercise technique and purpose for exercises. Billing * Evaluation Low Complexity: 1 Unit Neuromuscular Re-Education Treatment Minutes: 15 Self-Care/Home Management Treatment Minutes: 15 Session Start Time : 932 Jean Valencia PT documented in this encounter [facility] 08-08-2023 Note AL Electrophysiology Consult Note Reason for visit: afib, chest pain , palpitations HPI: Rey Baxter is a 43 y.o. year old with past medical history of Lumbar radiculopathy, GERD, HERIBERTO, fatigue, paroxysmal A-fib,, lead toxicity. Patient was referred to our clinic for A-fib he was seen recently at [facility] and was found to be in A-fib RVR, No EKG to confirm but per the cardiology note patient spontaneously converted to sinus rhythm. He was placed on Eliquis 5 mg twice daily and ASA 81mg. he was seen by Ollie HERNANDEZ on 06/01/2023 and a 30-day event monitor was ordered. 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 He has been dealing with complaints of fatigue, chest pain, shortness of breath, SPARKS. He is unsure which of the symptoms are likely due to his lead toxicity Patient was referred to [facility] but it seems as though no one has referred him to any type of heavy metal specialist or is offered any type of intervention for heavy metal detoxification. He continues to have chest pain with numbness that radiates to jaw and left upper extremity, palpitations, lightheadedness and dizziness. He did have a syncopal episode prior to his ER visit where he was found to be in A-fib. he states that he has a symptoms of chest discomfort when he has these episodes of tachycardia. a 30-day event monitor that was done from through 07/21/2023 revealed episodes of PACs. There were episodes of noise noted. There were patient triggered episodes which were all noted to be sinus rhythm. there were multiple episodes of PACs and couplets. The fastest rate was noted on 06/30/2023 at 12:50 PM where was noted to be long RP tachycardia with a rate of 160 bpm. There was an episode of pause that was noted for 7.2 seconds on 06/22/2023 which appeared to be more consistent with loss of signal from poor contact. No A-fib or VT seen Stress test performed on 07/04/2023 revealed no perfusion defects. no evidence of ischemia noted on EKG and there is no evidence of chronotropic incompetence. EKG 06/01/2023 sinus rhythm with PACs PMH: Past Medical History: Diagnosis Date Atrial fibrillation (CMS/HCC) GERD (gastroesophageal reflux disease) Sleep apnea PSH: Past Surgical History: Procedure Laterality Date FINGER SURGERY Left pinky SH: Social Determinants of Health Tobacco Use: Low Risk (06/21/2023) Patient History Smoking Tobacco Use: Never Smokeless Tobacco Use: Never Passive Exposure: Never Alcohol Use: Not on file Financial Resource Strain: Not on file Food Insecurity: Not on file Transportation Needs: Not on file Physical Activity: Not on file Stress: Not on file Social Connections: Not on file Intimate Partner Violence: Unknown (06/20/2023) Humiliation, Afraid, Rape, and Kick questionnaire Fear of Current or Ex-Partner: No Emotionally Abused: Not on file Physically Abused: Not on file Sexually Abused: Not on file Depression: Not on file Housing Stability: Not on file Utilities: Not on file Allergies: No Known Allergies Weight: 71.7kg Visit Vitals BP 120/70 (BP Location: Left arm, Patient Position: Sitting) Pulse 65 Ht 1.778 m (5' 10 ) Wt 71.7 kg (158 lb) SpO2 97% BMI 22.67 kg/m??? Smoking Status Never BSA 1.88 m??? Meds: Current Outpatient Medications on File Prior to Visit Medication Sig Dispense Refill apixaban (Eliquis) 5 mg tablet Take 1 tablet by mouth every 12 (twelve) hours. aspirin 81 mg EC tablet Take 81 mg by mouth in the morning. citalopram (CeleXA) 20 mg tablet Take 20 mg by mouth in the morning. No current facility-administered medications on file prior to visit. ROS: Review of Systems Constitutional: Positive for malaise/fatigue. Cardiovascular: Positive for chest pain, dyspnea on exertion and palpitations. Musculoskeletal: Positive for arthritis, back pain, joint pain and myalgias. Neurological: Positive for dizziness, headaches and light-headedness. All other systems reviewed and are negative. Physical Exam: Constitutional General Appearance: well-nourished, well-developed, appears stated age Level of Distress: comfortable Psychiatric Mental Status: alert, normal affect Orientation: oriented to time, place, and person Insight: good judgement Eyes Lids and Conjunctivae: non-injected, no xanthelasma ENMT Ears: no lesions on external ear Nose: no lesions on external nose Oropharynx: no cyanosis, no pallor Neck Neck: supple, trachea midline Carotid Arteries: bilateral normal upstroke, no bruits Jugular Veins: normal jugular venous pressure Thyroid: not enlarged Lungs Respiratory Effort: unlabored Chest Exam: normal curvature, no thoracic deformity Auscultation: clear, no wheezing, no rales, no rhonchi Cardiovascular Rate And Rhythm: regular Heart Sounds: normal S1, normal s2, no gallop Systo (more content not included)... [facility] 08-04-2023 Miscellaneous Notes Patient records received via electronic fax. Uploaded to [employer] via [employer]. Please review in scanned documents tab of chart review. Zander Denson MA documented in this encounter [facility] 08-03-2023 Note HNO ID: [id number] Author: MATTHEW BANERJEE, CT Service: ? Author Type: Technologist Type: Progress Notes Filed: 08/03/2023 15:31 Note Text: Radiology Service Progress Note DATE OF SERVICE: August 03, 2023 TIME: 3:06 PM PATIENT IDENTITY VERIFICATION COMPLETED USING TWO (2) STANDARD IDENTIFIERS: Name and Date of confirmed by patient verbally. FALL SCREENING: Has the patient had 2 falls in the last year or 1 fall with injury or currently using an Ambulatory Assistive Device (Walker, Cane, Wheelchair, Crutches, etc.)? No PATIENT GENDER DATA: Male PATIENT RELEVANT IMPLANT DATA REVIEWED: Yes PATIENT PRESENTS WITH AN IMPLANTABLE OR ATTACHED DIAMOND SAWER: No ALLERGIES: Reviewed and unchanged CONTRAST ALLERGY: NO. EXAM: MRI - CONTRAST TYPE: GROUP II PERIPHERAL IV DATA: Ambulatory: A peripheral IV was started in the Left antecubital site with a Angio cath: 24 gauge. RADIOLOGY DEPARTMENT: MR; Exam(s) Completed: Head: Routine Brain SIGNATURE: Matthew Banerjee, CT PATIENT NAME: Rey Baxter DATE: August 03, 2023 TIME: 3:06 PM [facility] 08-02-2023 Note HNO ID: [id number] Author: JI FAJARDO MD Service: ? 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 Lead is not being chelated at this time--monitored with gradual reduction in values. Pt reports his primary symptoms to me today are headaches, DIZZINESS, and abdominal pain--all consistent with history of lead toxicity. Headache 1 Diagnosis: Evaluation for secondary headache Onset: - Pt reports GARCIA's have been present for several months but worsened around FEB 2023. Pt noted to have lead toxicity during this time. Denies previous history of headache or migraine apart from occasional mild ones that responded entirely to APAP--rare and episodic if at all. Location: bilateral, frontal, temporal and occipital Quality/Description: throbbing Associated Symptoms: Photophobia: no Phonophobia: no Nausea: no Vomiting: no Other symptoms: dizziness (++ orthostatic dizziness. most common on standing. Vision gets blurry at that time.) Worse with activity: yes Number of NON-migraine headache days/month: 30 Non-migraine Severity: pain fluctuates between mild AND severe. Number of headache free days/month: 0 Duration of headaches with treatment: Duration of attacks with treatment: duration varies--2 hours up to entire day. Current preventive treatment: none Current abortive treatment: APAP--mildly helpful. Triggers: stress and fasting/hunger Onset of headache to peak: gradual Relieving factors: eating will sometimes help Positional changes: yes Most common time of day for headache to begin: morning Prodrome: none Aura: none Allodynia: no Days missed from work or school in the last month: 6 days Lifestyle: Sleep: sleep quality is notable for awakening thru the night. sometimes he has a hard time falling asleep as well. Labs reviewed. PMH: Past Medical History: Diagnosis Date Atrial fibrillation (CMS/HCC) GERD (gastroesophageal reflux disease) Sleep apnea PSH: Past Surgical History: Procedure Laterality Date FINGER SURGERY Left pinky SH: Social Determinants of Health Tobacco Use: Low Risk (06/21/2023) Patient History Smoking Tobacco Use: Never Smokeless Tobacco Use: Never Passive Exposure: Never Alcohol Use: Not on file Financial Resource Strain: Not on file Food Insecurity: Not on file Transportation Needs: Not on file Physical Activity: Not on file Stress: Not on file Social Connections: Not on file Intimate Partner Violence: Unknown (06/20/2023) Humiliation, Afraid, Rape, and Kick questionnaire Fear of Current or Ex-Partner: No Emotionally Abused: Not on file Physically Abused: Not on file Sexually Abused: Not on file Depression: Not on file Housing Stability: Not on file Utilities: Not on file Current Outpatient Medications Medication Sig ELIQUIS 5 mg tab(s) Take 1 tablet by mouth every 12 hours. aspirin, enteric coated (ASPIRIN, ENTERIC COATED) 81 mg EC tablet Take 81 mg by mouth. citalopram hydrobromide (CELEXA) 10 mg tablet Take 10 mg by mouth. hydrOXYzine HCl (ATARAX) 25 mg tablet Take 25 mg by mouth every 8 hours as needed. No current facility-administered medications for this visit. ALLERGIES No Known Allergies PHYSICAL EXAMINATION 08/02/23 1548 BP: 115/74 Pulse: 74 Resp: 18 SpO2: 98% Weight: 72.4 kg (159 lb 11.6 oz) Height: 177.8 cm (5' 10 ) General appearance: Well appearing, alert, in no acute distress, well-hydrated, well nourished. Head: Normocephalic, no masses, lesions, tenderness or abnormalities Eyes: Anicteric sclera. Pupils are equally round and reactive to light. Extraocular movements are intact. Fundi without papilledema. Oropharynx: Lips, mucosa, and tongue normal, teeth and gums normal, oropharynx normal Neck: Supple, no adenopathy; Lungs: Unlabored on room air Extremities: No deformities, edema, skin discoloration, clubbing or cyanosis. Good capillary refill. Musculoskeletal: No joint swelling, deformity, or tenderness Peripheral pulses: Capillary refill <2secs, strong peripheral pulses Neuro: Negative findings: speech normal, mental status intact, cranial nerves 2-12 intact, muscle tone normal, muscle strength normal, finger to nose normal, reflexes normal and symmetric Rey was seen today for new patient. Diagnoses and all orders for this visit: Worsening headaches - MRI BRAIN WO/W IVCON; Future - iv contrast (will be provided with radiology test); MRI Brain Inject, intravenously, once for 1 dose.No IV access, insert saline lock prior to beginning of sedation, infusion, injection of imaging exam.Discontinue saline lock post exam. If Pt. has a central line or IVAD, may access for admini (more content not included)... 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 Lead is not being chelated at this time--monitored with gradual reduction in values. Pt reports his primary symptoms to me today are headaches, DIZZINESS, and abdominal pain--all consistent with history of lead toxicity. Headache 1 Diagnosis: Evaluation for secondary headache Onset: - Pt reports GARCIA's have been present for several months but worsened around FEB 2023. Pt noted to have lead toxicity during this time. Denies previous history of headache or migraine apart from occasional mild ones that responded entirely to APAP--rare and episodic if at all. Location: bilateral, frontal, temporal and occipital Quality/Description: throbbing Associated Symptoms: Photophobia: no Phonophobia: no Nausea: no Vomiting: no Other symptoms: dizziness (++ orthostatic dizziness. most common on standing. Vision gets blurry at that time.) Worse with activity: yes Number of NON-migraine headache days/month: 30 Non-migraine Severity: pain fluctuates between mild & severe. Number of headache free days/month: 0 Duration of headaches with treatment: Duration of attacks with treatment: duration varies--2 hours up to entire day. Current preventive treatment: none Current abortive treatment: APAP--mildly helpful. Triggers: stress and fasting/hunger Onset of headache to peak: gradual Relieving factors: eating will sometimes help Positional changes: yes Most common time of day for headache to begin: morning Prodrome: none Aura: none Allodynia: no Days missed from work or school in the last month: 6 days Lifestyle: Sleep: sleep quality is notable for awakening thru the night. sometimes he has a hard time falling asleep as well. Labs reviewed. PMH: Past Medical History: Diagnosis Date Atrial fibrillation (CMS/HCC) GERD (gastroesophageal reflux disease) Sleep apnea PSH: Past Surgical History: Procedure Laterality Date FINGER SURGERY Left pinky SH: Social Determinants of Health Tobacco Use: Low Risk (06/21/2023) Patient History Smoking Tobacco Use: Never Smokeless Tobacco Use: Never Passive Exposure: Never Alcohol Use: Not on file Financial Resource Strain: Not on file Food Insecurity: Not on file Transportation Needs: Not on file Physical Activity: Not on file Stress: Not on file Social Connections: Not on file Intimate Partner Violence: Unknown (06/20/2023) Humiliation, Afraid, Rape, and Kick questionnaire Fear of Current or Ex-Partner: No Emotionally Abused: Not on file Physically Abused: Not on file Sexually Abused: Not on file Depression: Not on file Housing Stability: Not on file Utilities: Not on file Current Outpatient Medications Medication Sig ELIQUIS 5 mg tab(s) Take 1 tablet by mouth every 12 hours. aspirin, enteric coated (ASPIRIN, ENTERIC COATED) 81 mg EC tablet Take 81 mg by mouth. citalopram hydrobromide (CELEXA) 10 mg tablet Take 10 mg by mouth. hydrOXYzine HCl (ATARAX) 25 mg tablet Take 25 mg by mouth every 8 hours as needed. No current facility-administered medications for this visit. ALLERGIES No Known Allergies PHYSICAL EXAMINATION 08/02/23 1548 BP: 115/74 Pulse: 74 Resp: 18 SpO2: 98% Weight: 72.4 kg (159 lb 11.6 oz) Height: 177.8 cm (5' 10 ) General appearance: Well appearing, alert, in no acute distress, well-hydrated, well nourished. Head: Normocephalic, no masses, lesions, tenderness or abnormalities Eyes: Anicteric sclera. Pupils are equally round and reactive to light. Extraocular movements are intact. Fundi without papilledema. Oropharynx: Lips, mucosa, and tongue normal, teeth and gums normal, oropharynx normal Neck: Supple, no adenopathy; Lungs: Unlabored on room air Extremities: No deformities, edema, skin discoloration, clubbing or cyanosis. Good capillary refill. Musculoskeletal: No joint swelling, deformity, or tenderness Peripheral pulses: Capillary refill <2secs, strong peripheral pulses Neuro: Negative findings: speech normal, mental status intact, cranial nerves 2-12 intact, muscle tone normal, muscle strength normal, finger to nose normal, reflexes normal and symmetric Rey was seen today for new patient. Diagnoses and all orders for this visit: Worsening headaches - MRI BRAIN WO/W IVCON; Future - iv contrast (will be provided with radiology test); MRI Brain Inject, intravenously, once for 1 dose.No IV access, insert saline lock prior to beginning of sedation, infusion, injection of imaging exam.Discontinue saline lock post exam. If Pt. has a central line or IVAD, may access for administration according to line specific nursing protocol.Once exam is complete flush line and de-access according to line specific nursing protocol in the MR contrast administration guidelines link - rizatriptan (MAXALT) 10 mg tablet; Take 1 tablet (10 mg) by mouth as needed. AT ONSET OF HEADACHE. MAY REPEAT AFTER 2 HOURS. DO NOT EXCEED 30 MG PER DAY. Do not use on more than 2 days per week to avoid rebound headaches. - PROVIDER ORDERED FOLLOW UP; Future Dizziness - nortriptyline (PAMELOR) 10 mg capsule; Take 1 capsule by mouth daily at bedtime. - CONSULT TO PHYSICAL THERAPY; Future Toxic effect of lead, accidental or unintentional, initial encounter Pt is 43 year old male with documented lead toxicity and worsening headaches. 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 Pt can trial nortriptyline 10 mg po qhs in the interim for symptomatic relief. Return 3 months or sooner if needed. Ji Fajardo MD August 04, 2023 2:09 PM documented in this encounter [facility] 08-01-2023 Miscellaneous Notes Patient calling with request for physician referral: Patient referred to Neurology Department. . Patient denies any new or worsening symptoms of which a provider is not aware: Yes. Ac took call back over for scheduling. documented in this encounter [facility] 06-21-2023 Note AL Electrophysiology Consult Note Reason for visit: afib, chest pain , palpitations, new pt HPI: Rey Baxter is a 42 y.o. year old with past medical history of Lumbar radiculopathy, GERD, HERIBERTO, fatigue, paroxysmal A-fib,, lead toxicity. 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 He has been dealing with complaints of fatigue, chest pain, shortness of breath, SPARKS. He is unsure which of the symptoms are likely due to his lead toxicity Patient was referred to [facility] cancer seanor but it seems as though no one has referred him to any type of heavy metal specialist or is offered any type of intervention for heavy metal detoxification He continues to have chest pain with numbness that radiates to jaw and left upper extremity, palpitations, lightheadedness and dizziness. He did have a syncopal episode prior to his ER visit where he was found to be in A-fib. Pulse check and heart on exam today shows regular rate and rhythm, likely sinus rhythm EKG 06/01/2023 sinus rhythm with PACs PMH: Past Medical History: Diagnosis Date Atrial fibrillation (CMS/HCC) GERD (gastroesophageal reflux disease) Sleep apnea PSH: Past Surgical History: Procedure Laterality Date FINGER SURGERY Left pinky SH: Social Determinants of Health Tobacco Use: Low Risk (06/21/2023) Patient History Smoking Tobacco Use: Never Smokeless Tobacco Use: Never Passive Exposure: Never Alcohol Use: Not on file Financial Resource Strain: Not on file Food Insecurity: Not on file Transportation Needs: Not on file Physical Activity: Not on file Stress: Not on file Social Connections: Not on file Intimate Partner Violence: Unknown (06/20/2023) Humiliation, Afraid, Rape, and Kick questionnaire Fear of Current or Ex-Partner: No Emotionally Abused: Not on file Physically Abused: Not on file Sexually Abused: Not on file Depression: Not on file Housing Stability: Not on file Utilities: Not on file Allergies: No Known Allergies Weight: 71.4kg Visit Vitals Smoking Status Never Meds: Current Outpatient Medications on File Prior to Visit Medication Sig Dispense Refill apixaban (Eliquis) 5 mg tablet Take 1 tablet by mouth every 12 (twelve) hours. aspirin 81 mg EC tablet Take 81 mg by mouth in the morning. citalopram (CeleXA) 20 mg tablet Take 20 mg by mouth in the morning. [DISCONTINUED] diclofenac (Voltaren) 75 mg EC tablet Take 75 mg by mouth in the morning and at bedtime. [DISCONTINUED] metoprolol succinate XL (Toprol-XL) 25 mg 24 hr tablet Take 25 mg by mouth in the morning. No current facility-administered medications on file prior to visit. ROS: Cardio Basic Cardiovascular Symptoms: no lightheadedness, no leg edema, no syncope, no orthopnea, no PND, no claudication, Constitutional Constitutional: no fever, no night sweats, no significant weight gain, no significant weight loss, no exercise intolerance Eyes Eyes: no dry eyes, no irritation, no vision change ENMT Ears: no difficulty hearing, no ear pain Nose: no frequent nosebleeds, Mouth/Throat: no sore throat, no bleeding gums, no snoring, no dry mouth, no mouth ulcers, no oral abnormalities, no teeth problems Respiratory Respiratory: no cough, no wheezing, no coughing up blood, no sleep apnea Musculoskeletal Musculoskeletal: no muscle aches, no muscle weakness, joint pain+, no back pain, no swelling in the extremities Integumentary Skin no rash, no ulcer, no varicosities, no discoloration, no pruritus Neurologic Neurologic: no loss of consciousness, no weakness, no numbness, no seizures, no dizziness, no headaches Psychiatric Psych: no depression, feeling safe in relationship, no alcohol abuse, Hematologic/Lymphatic Hematologic/Lymphatic no swollen glands, no bruising Physical Exam: Constitutional General Appearance: well-nourished, well-developed, appears stated age Level of Distress: comfortable Psychiatric Mental Status: alert, normal affect Orientation: oriented to time, place, and person Insight: good judgement Eyes Lids and Conjunctivae: non-injected, no xanthelasma ENMT Ears: no lesions on external ear Nose: no lesions on external nose Oropharynx: no cyanosis, no pallor Neck Neck: supple, trachea midline Carotid Arteries: bilateral normal upstroke, no bruits Jugular Veins: normal jugular venous pressure Thyroid: not enlarged Lungs Respiratory Effort: unlabored Chest Exam: normal curvature, no thoracic deformity Auscultation: clear, no wheezing, no rales, no rhonchi C (more content not included)... 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 Clinic number provided. shamir [facility] 06-20-2023 Note This commercial real estate underwriter was cons ulted by Dr. Vogt to assist patient with workers comp claim and resources for lead poisoning. This commercial real estate underwriter met with patient following his visit with Dr. Vogt and provided him the [place] [employer] contact. This commercial real estate underwriter informed patient resources on lead poisoning will be researched as this commercial real estate underwriter does not currently have information. The patient stated Dr. Vogt provided him with poison control's contact and he plans to call them. This commercial real estate underwriter will research additional resources. [facility] 06-20-2023 Note HEMATOLOGY ONCOLOGY CONSULT NOTE Reason for consult: Chief Complaint: History of present illness: The patient is a 42 y.o. male with PMHx of that presented with lead poisoning. Company makes plaques . Patient melts of the same and 06/01/2023 Lead,Blood,Venipuncture Order: [id number] Component Ref Range & Units 2 wk ago Lead <3.5 mcg/dL 33.8 High Comment: NOTE Patient had lead testing at [facility] and was 43 Upon evaluation, No results found for: WBC , HGB , HCT , MCV , PLT Order: [id number] Component Ref Range & Units 2 wk ago White Blood Cells 4.0 - 11.0 X10E9/L 7.5 RBC count 4.10 - 5.70 X10E12/L 4.79 Hemoglobin 13.0 - 17.0 g/dL 14.6 Hematocrit 39 - 49 % 41.5 MCV 80 - 100 fL 87 MCH 27 - 34 pg 30.4 MCHC 32 - 36 g/dL 35.1 RDW 11.5 - 15.0 % 13.0 Platelets 150 - 450 X10E9/L 207 MPV 7 - 12 fL 8.3 % neutrophils % 68.1 % lymphocytes % 22.2 % monocytes % 7.8 % eosinophils % 1.1 % Basophils % 0.8 Neutrophils Absolute (A) 1.5 - 6.6 X10E9/L 5.1 Lymphocytes Absolute 1.0 - 3.5 X10E9/L 1.7 Monocytes Absolute 0 - 0.9 X10E9/L 0.6 Eosinophils Absolute 0.0 - 0.4 X10E9/L 0.1 Basophils Absolute 0.0 - 0.2 X10E9/L 0.1 Resulting Agency [facility] Specimen Collected: 06/01/23 15:10 Performed by: [employer] Last Resulted: 06/01/23 15:22 Received From: [facility] Result Received: 06/20/23 13:09 View Encounter Received Information Result Report CBC auto differential (Order #[id number]) on 06/01/23 Lab Component SmartPhrase Guide CBC auto differential (Order #[id number]) on 06/01/23 Additional PMHx includes afib passed out work and was admitted in [place] and has been on eliquis since jun 02 by cardiology Hematologic / Oncologic hx: - Family hx of malignancy/blood disorder: none - Primary Kitchen Steward/Oncologist:none - 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 Review of Systems Gastrointestinal: Negative. Musculoskeletal: Positive for arthralgias and back pain. Neurological: Positive for headaches. Memory loss All other systems reviewed and are negative. Objective Physical Exam: Vitals: There were no vitals taken for this visit. There is no height or weight on file to calculate BMI. General: appearing, in no acute distress, HEENT: Normocephalic, atraumatic. Moist mucous membranes, no oropharyngeal lesions or ulcerations. Lymph nodes: No palpable cervical or supraclavicular adenopathy. Neck: Supple. No appreciable JVP elevation. Respiratory: Respirations were non-labored. Lungs were clear to auscultation. No audible wheezes, rales, or rhonchi. Cardiac: Regular rate and regular rhythm, S1 and S2 sounds were normal. Abdomen: Soft, non-tender, non-distended. Bowel sounds audible. Extremities: No clubbing, cyanosis, edema. Skin: No obvious rashes, bruising or ecchymosis. Neurologic: AAO x 3, no unilateral weakness. Mood and affect: Normal. No past medical history on file. No past surgical history on file. No family history on file. Social History Socioeconomic History Marital status: Single Spouse name: Not on file Number of children: Not on file Years of education: Not on file Highest education level: Not on file Occupational History Not on file Tobacco Use Smoking status: Not on file Smokeless tobacco: Not on file Substance and Sexual Activity Alcohol use: Not on file Drug use: Not on file Sexual activity: Not on file Other Topics Concern Not on file Social History Narrative Not on file Social Determinants of Health Financial Resource Strain: Not on file Food Insecurity: Not on file Transportation Needs: Not on file Physical Activity: Not on file Stress: Not on file Social Connections: Not on file Intimate Partner Violence: Unknown (06/16/2023) [place] [employer] Fear of Current or Ex-Partner: Not on file Emotionally Abused: Not on file Physically Abused: Not on file Sexually Abused: Not on file Physically or Sexually Abused: Not on file Housing Stability: Not on file Not on File Inpatient scheduled medication: Recent Labs No results found for this or any previous visit (from the past 72 hour(s)). Recent Imaging: @RISRSLT@ Diagnosis Problem list: Patient Active Problem List Diagnosis A-fib (CMS/HCC) [place] Assessment and Plan: 1. Toxic effect of lead, accidental or unintentional, sequela - Ambulatory referral to Social Work - CBC and differential; Future - Comprehensive metabolic panel; Future - Ambulatory referral to Neurology; Future - CT abdomen pelvis w IV contrast; Future - Ambulatory referral to Rheumatology; Future - Ambulatory referral to Social Work - TIFF; Future 2. Screening for col (more content not included)... [facility] Evaluation note Diagnosis Worsening headaches- Primary Headache Dizziness Dizziness and giddiness Toxic effect of lead, accidental or unintentional, initial encounter [facility] Diagnosis Dizziness Dizziness and giddiness documented in this encounter [facility] Summary Purpose Family History No Family History Records FoundNo Family History Records FoundNo Family History Records FoundNo Family History Records FoundNo Family History Records Found Advance Directives No Advanced Directives Records FoundNo Advanced Directives Records FoundNo Advanced Directives Records FoundNo Advanced Directives Records FoundNo Advanced Directives Records Found Reason for Referral Specialty Diagnoses / Procedures Referred By Contac t Referred To Contact Diagnoses Worsening headaches Procedures PROVIDER ORDERED FOLLOW UP OFFICE/OUTPATIENT [facility] 60 MINUTES Ji Fajardo MD [address] [place] [id number] Referral ID Status Reason Start Date Expiration Date Visits Requested Visits Authorized [id number] Pending Review PCP Requested Referral 11/01/2023 08/01/2024 1 1 Specialty Diagnoses / Procedures Referred By Contac t Referred To Contact [facility] Diagnoses Dizziness Procedures CONSULT TO PHYSICAL THERAPY PHYSICAL THERAPY EVALUATION [facility] 45 MINS Ji Fajardo MD [address] [place] [id number] [facility] [place] [address] Referral ID Status Reason Start Date Expiration Date Visits Requested Visits Authorized [id number] Pending Review Auto-Generat ed Referral 08/02/2023 08/01/2024 1 1 [facility]ty Diagnoses / [facility]erred To Contact [facility] Diagnoses Worsening headaches Procedures MRI BRAIN WO/W IVCON MRI BRAIN BRAIN STEM W/O W/CONTRAST MATERIAL Ji Fajardo MD [address] [place] [id number] Mr Imaging [id number] Referral ID Status Reason Start Date Expiration Date V isits Requested Visits Authorized [id number] Closed Auto-Generate d Referral 08/02/2023 08/31/2024 1 1 Additional Source Comments (unrecognized sect ion and content) No Status Records FoundNo Status Records FoundNo Status Records FoundNo Status Records FoundNo Status Records Found INFORMATION SOURCE (unrecogn ized section and content) DATE CREATED AUTHOR 03/31/2020 [facility] DATE CREATED AUTHOR AUTHOR'S ORGANIZ ATION 09/05/2022 [facility] DATE CREATED AUTHOR AUTHOR'S ORGANIZ ATION 06/05/2023 [facility] DATE CREATED AUTHOR AUTHOR'S ORGANIZ ATION 08/09/2023 [facility] DATE CREATED AUTHOR AUTHOR'S ORGANIZ ATION 08/14/2023 [facility] Source Comments (unrecognize d section and content) In the event this informatio n is protected by the Federal Confidentiality of Alcohol and Drug Abuse Patient Records regulations: The Federal rules restrict any use of the information to criminally investigate or prosecute any alcohol or drug abuse patient.[facility], IncIn the event this information is protected by the Federal Confidentiality of Alcohol and Drug Abuse Patient Records regulations: The Federal rules restrict any use of the information to criminally investigate or prosecute any alcohol or drug abuse patient.[facility], IncIn the event this information is protected by the Federal Confidentiality of Alcohol and Drug Abuse Patient Records regulations: The Federal rules restrict any use of the information to criminally investigate or prosecute any alcohol or drug abuse patient.[facility], IncIn the event this information is protected by the Federal Confidentiality of Alcohol and Drug Abuse Patient Records regulations: The Federal rules restrict any use of the information to criminally investigate or prosecute any alcohol or drug abuse patient.[facility], IncIn the event this information is protected by the Federal Confidentiality of Alcohol and Drug Abuse Patient Records regulations: The Federal rules restrict any use of the information to criminally investigate or prosecute any alcohol or drug abuse patient.[facility] Reason for Visit (unrecogniz ed section and content) Reason Comments Referral Request Reason Comments Workers comp Reason Comments New Patient Headaches Specialty Diagnoses / Procedures Referred By Contac t Referred To Contact Neurology / HEADACHE Diagnoses Intake Simon / [address], Numbness/tingling, Dizziness, Confusion. Procedures NEW NEUR HEADACHE Ashley Foster, GYRO MECHANIC [address] [place] [address] [place] [address] [place] [address] Referral ID Status Reason Start Date Expiration Date V isits Requested Visits Authorized [id number] Authorized 07/10/2023 01/10/2024 2 2 Reason Comments PT Eval Specialty Diagnoses / Procedures Referred By Contac t Referred To Contact [facility] Diagnoses Dizziness Procedures CONSULT TO PHYSICAL THERAPY PHYSICAL THERAPY EVALUATION HIGH COMPLEX [address] [place] [address] [place] [address] [facility] [place] [facility] [place] [address] Referral ID Status Reason Start Date Expiration Date Visits Requested Visits Authorized [id number] Pending Review Auto-Generat ed Referral 08/02/2023 08/01/2024 1 1 Care Teams (unrecognized sec tion and content) Piece Dye Worker Relationship Specialty Start Date End Date Ollie Pitt [address] [place] [facility] [place] [address] 06/26/23 Ashley Foster CNP [address] [place] [address] Referring Family Medicine 07/26/23 Piece Dye Worker Relationship Specialty Start Date End Date Ollie Pitt [address] [place] [address] 06/26/23 Ashley Foster CNP [address] [place] [facility] [address] Referring Family Medicine 07/26/23 Piece Dye Worker Relationship Specialty Start Date End Date Ollie Pitt [address] [place] [facility] [place] [address] 06/26/23 Ashley Foster CNP [address] [place] [address] Referring Family Medicine 07/26/23 Piece Dye Worker Relationship Specialty Start Date End Date Ollie Pitt [address] [place] [facility] [place] [address] 06/26/23 Ashley Foster CNP [address] [place] [address] Referring Family Medicine 07/26/23 Piece Dye Worker Relationship Specialty Start Date End Date Ollie Pitt [address] [place] [id number] 06/26/23 Ashley Fsoter CNP [address] [place] [address] Referring Family Medicine 07/26/23 FOR RECORDS PERTAINING TO PATIENTS WHO ARE [...] BE BASED ON THE PRIMARY CLINICAL RECORDS. [facility]. provides no warranty or guarantee of the accuracy or completeness of information in this document.
--- NOTE | 2023-09-20 17:33 | XR_ITS ---
The [address] [address] Patient Name: YAMILET WHITAKER MRN: [id number] date: 1980 Sex: M Assigned Patient Location: [facility] Current Patient Location: [facility] Accession/Order Number: [id number] Exam Date: 09/20/2023 17:33 Report Date: 09/20/2023 19:03 At the request of: IRENA JEFFERY Procedure: XR knee LT 3V EXAM: XR knee LT 3V HISTORY: LEFT KNEE OSTEOARTHRITIS COMPARISON: None. TECHNIQUE: 3 views of the left knee were obtained. FINDINGS: There is no evidence of an acute fracture or dislocation. The joint spaces are intact. No osteochondral injury is identified. There is no evidence of a significant joint effusion. XR/XR knee LT 3V IMPRESSION: No acute fracture, dislocation or apparent degenerative change. There is no evidence of a joint effusion. Electronically authenticated by: MARLYS MUNOZ Date: 09/20/2023 19:03
== END 2023-09-20 17:25 | disposition home or self-care (01) ==
PROVIDERS: PCP Family Medicine; Visit Provider Family Medicine
DX: M17.12 Unilateral primary osteoarthritis, left knee (principal)
CPT/HCPCS: 73562

== ENCOUNTER 2023-10-18 13:30 | Outpatient (OUT) | payer OTHER, SELFPAY ==
--- OUTSIDE RECORDS SUMMARY | 2023-10-18 13:42 | XMS_ITS | CCD ---
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 aspirin 81 mg delayed [...] on above: Take 1 capsule by mo ut daily at bedtime. rizatriptan 10 mg oral [...] Range Facility CNTHERAPY 08-10-2023 CNTHERAPY OT/PT/Speech Visit ([facility]) REY BAXTER ([id number]) 1980 M Date Time Provider Department 08/10/23 9:30 AM JEAN VALENCIA [facility] Date Time Provider Department Center 08/10/2023 9:30 AM [id number] VALENCIA Count includes the [facility] Reason for Visit: PT Eval [747] Visit [...] 1 capsule by mouth daily at bedtime. 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 Author Type: Physical Therapist Type: Therapy (PT/OT/Speech/Resp) Filed: 08/10/2023 10:06 Note Text: Program_ID:[id number] Access Code: [email or web address] URL: [email or web address] Date: 08-10-2023 Prepared By: Jean Valencia Program [...] - 3 sets - 10 reps Normal [facility] Office Visiton 08-08-2023 Follow-up visit [id number] Rey Baxter 1980 M Date Provider Department Center 08/08/2023 [facility]-LUIS ALBERTO [facility] Sandra [facility] Family History Problem Relation Age of Onset Lupus Mother Muscular dystrophy Mother Diabetes Other Family Status - Relation Status Age at Mother Other Level of Service:76855 ME OFFICE/OUTPATIENT NEW MODERATE MDM 45 MINUTES Normal [facility] Yumiko 08-04-2023 KAROLINAN Telephone (RUDY) REY BAXTER ([id number]) 1980 M Date Time Provider Department 08/04/23 JI FAJARDO During your visit today, we recorded the following information about you: Zander Denson MA 08/04/2023 9:09 AM Signed Patient records received via electronic fax. Uploaded to [employer] via [employer]. Please review in scanned documents tab of chart review. Zander Denson MA Allergies As of Date: 08/04/2023 (Not on File) Date Reviewed: 08/03/2023 Reviewed by: Matthew aBnerjee, CT - Fully Assessed Reason for Visit: [...] Of Date: 08/04/2023 (None) Encounter Status:Closed by ZANDER DENSON on 08/04/23 Normal [facility] MR Brain WO and W contrast I Von 08-03-2023 [facility] MRI BRAIN WO/W IVCONon 08-02 MRI BRAIN WO/W IVCON * * *Final Report* * * DATE OF EXAM: Aug 03 2023 3:38PM LNKaryna 0295 - MRI BRAIN WO/W IVCON / [...] paranasal sinus inflammatory changes. Otherwise normal study. Disk Sander: PSCB Transcribe Date/Time: Aug 03 2023 3:53P Dictated by : LUIS ALBERTO SMITH MD This examination was interpreted and the report reviewed and electronically signed by: LUIS ALBERTO SMITH MD on Aug 03 2023 3:57PM EST [id number] Normal [facility] CNOVon 08-02-2023 CNOV Office Visit ([facility]) JULIANNEREY Mcdaniels ([id number]) 1980 M Date Time Provider Department 08/02/23 4:00 PM JI FAJARDO [facility] During your visit today, we recorded the following information about you: Pulse Respiration Blood pressure Weight 74/minute 18/minute 115/74 72.4 kg Height 1.778 m Ji Fajardo MD 08/04/2023 2:09 PM Signed [facility] NEW EVALUATION August 04, 2023 4:00 PM Pt is 43 year old male from [place], [place] who presents with headaches that appears subsequent to 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 Lead is not being chelated at [...] iv contrast (more content not included)... Normal [facility] CNPNon 08-02-2023 CNPN Telephone ([place]) REY BAXTER ([id number]) 1980 M Date Time Provider Department 08/02/23 [...] Encounter Status:Closed by ZANDER DENSON on 08/03/23 [facility] 36on 06-22-2023 36 Per Ollie Pitt [...] so stress test just needs done catia. [facility] 36 Zywie called this morning to [...] the entire left side of his body. 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 7) to keep follow up with the current lead poisoning expert 80 please reach out tp poison control clarence for direction [phone] Normal [facility] CBC AND AUTO DIFFon 06-02-19 24 ABSOLUTE BASOPHIL 0.1 X10E9/L Normal 0.0-0.2 [facility] Comment on above: Performed By: #### C BCA, CMP, 51917-8, PINR, 69382-0, 94746-9, 80616-3, 72237-1, THYR #### [facility] ([id number]) [address] [place] [address] 49790 ABSOLUTE NEUTROPHIL 3.9 X10E9/L Normal 1.5-6.6 [facility] Comment on above: Performed By: #### C BCA, CMP, 38151-3, PINR, 92732-8, 54095-0, 37344-8, 92208-7, THYR #### [facility] ([id number]) [address] [place] [address] 21341 Basophils/100 WBC (Bld) 0.8 % Normal [facility] Comment on above: Performed By: #### C BCA, CMP, 59801-2, PINR, 95390-6, 47720-2, 70232-6, 84804-8, THYR #### [facility] ([id number]) [address] [place] [address] 80836 Eosinophils (Bld) [#/Vol] 0.1 10*3/uL Normal 0.0-0.4 [facility] Comment on above: Performed By: #### C BCA, CMP, 35717-1, PINR, 41358-6, 66437-0, 03879-0, 49886-5, THYR #### [facility] ([id number]) [address] [place] [address] 31103 Eosinophils/100 WBC (Bld) 1.4 % Normal [facility] Comment on above: Performed By: #### C BCA, CMP, 26585-0, PINR, 48491-3, 21991-3, 31542-5, 23173-9, THYR #### [facility] ([id number]) [address] [place] [address] 02434 Erythrocyte distribution width (RBC) [Ratio] 13.2 % Normal 11.5-15.0 [facility] Comment on above: Performed By: #### C BCA, CMP, 17717-3, PINR, 02115-1, 00529-9, 23436-2, 60464-3, THYR #### [facility] ([id number]) [address] [place] [address] 54930 Hematocrit (Bld) [Volume fraction] 40.7 % Normal 39-49 [facility] Comment on above: Performed By: #### C BCA, CMP, 80688-3, PINR, 84154-5, 17129-5, 32118-0, 21163-1, THYR #### [facility] ([id number]) [address] [place] [address] 62560 Hemoglobin (Bld) [Mass/Vol] 14.2 g/dL Normal 13.0-17.0 [facility] Comment on above: Performed By: #### C BCA, CMP, 42207-2, PINR, 05543-8, 74881-3, 17165-5, 38321-5, THYR #### [facility] ([id number]) [address] [place] [address] 46440 Lymphocytes (Bld) [#/Vol] 2.2 10*3/uL Normal 1.0-3.5 [facility] Comment on above: Performed By: #### C BCA, CMP, 74560-8, PINR, 78160-9, 64050-7, 13932-1, 83808-8, THYR #### [facility] ([id number]) [address] [place] [address] Lymphocytes/100 WBC (Bld) 31.4 % Normal [facility] Comment on above: Performed By: #### C BCA, CMP, 58500-6, PINR, 15608-8, 07849-4, 47947-6, 94016-6, THYR #### [facility] ([id number]) [address] [place] [address] 17143 MCH (RBC) [Entitic mass] 30.7 pg Normal 27-34 [facility] Comment on above: Performed By: #### C BCA, CMP, 70661-0, PINR, 77745-0, 86696-5, 79869-6, 37010-1, THYR #### [facility] ([id number]) [address] [place] [address] 94444 MCHC (RBC) [Mass/Vol] 34.9 g/dL Normal 32-36 [facility] Comment on above: Performed By: #### C BCA, CMP, 38410-3, PINR, 98798-1, 27708-1, 82730-6, 65386-5, THYR #### [facility] ([id number]) [address] [place] [address] 40363 MCV (RBC) [Entitic vol] 88 fL Normal 80-100 [facility] Comment on above: Performed By: #### C BCA, CMP, 01543-7, PINR, 91259-5, 39393-5, 80531-2, 27440-3, THYR #### [facility] ([id number]) [address] [place] [address] 31109 Monocytes (Bld) [#/Vol] 0.7 10*3/uL Normal 0-0.9 [facility] Comment on above: Performed By: #### C BCA, CMP, 65402-8, PINR, 49500-8, 03941-9, 94171-6, 37514-2, THYR #### [facility] ([id number]) [address] [place] [address] 51128 Monocytes/100 WBC (Bld) 10.7 % Normal [facility] Comment on above: Performed By: #### C BCA, CMP, 01651-9, PINR, 14975-0, 68905-0, 26628-7, 29978-2, THYR #### [facility] ([id number]) [address] [place] [address] 52854 Neutrophils/100 WBC (Bld) 55.7 % Normal [facility] Comment on above: Performed By: #### C BCA, CMP, 75894-3, PINR, 15968-0, 07102-4, 35550-9, 85072-5, THYR #### [facility] ([id number]) [address] [place] [address] 59086 Platelet mean volume (Bld) [Entitic vol] 8.5 fL Normal 7-12 [facility] Comment on above: Performed By: #### C BCA, CMP, 95272-8, PINR, 86302-7, 98789-5, 85231-8, 74045-7, THYR #### [facility] ([id number]) [address] [place] [address] 44024 Platelets (Bld) [#/Vol] 192 10*3/uL Normal 150-450 [facility] Comment on above: Performed By: #### C BCA, CMP, 86699-2, PINR, 94150-3, 76692-0, 20120-7, 78725-9, THYR #### [facility] ([id number]) [address] [place] [address] 49828 RBC COUNT 4.61 X10E12/L Normal 4.10-5.70 [facility] Comment on above: Performed By: #### C BCA, CMP, 25507-1, PINR, 47714-6, 45647-7, 87651-0, 76746-8, THYR #### [facility] ([id number]) [address] [place] [address] 42026 WBC (Bld) [#/Vol] 7.0 10*3/uL Normal 4.0-11.0 [facility] Comment on above: Performed By: #### C BCA, CMP, 14043-8, PINR, 96067-8, 37317-7, 27946-8, 83325-0, THYR #### [facility] ([id number]) [address] [place] [address] 66202 COMPREHENSIVE METABOLIC PANE Nik 06-02-2023 Albumin [Mass/Vol] 4.2 g/dL Normal 3.2-5.3 [facility] Comment on above: Performed By: #### C BCA, CMP, 88960-1, PINR, 35469-4, 33443-7, 92221-6, 82810-9, THYR #### [facility] ([id number]) [address] [place] [address] 02006 ALP [Catalytic activity/Vol] 84 U/L Normal 39-130 [facility] Comment on above: Performed By: #### C BCA, CMP, 47331-7, PINR, 03796-2, 70329-5, 91403-0, 16684-9, THYR #### [facility] ([id number]) [address] [place] [address] 92301 ALT [Catalytic activity/Vol] 27 U/L Normal 0-40 [facility] Comment on above: Performed By: #### C BCA, CMP, 91818-9, PINR, 97323-1, 11254-3, 05530-3, 26238-9, THYR #### [facility] ([id number]) [address] [place] [address] 98955 Anion gap [Moles/Vol] 8 mmol/L Normal 5-15 [facility] Comment on above: Performed By: #### C BCA, CMP, 07900-6, PINR, 42972-3, 54826-2, 87359-2, 44746-7, THYR #### [facility] ([id number]) [address] [place] [address] 77752 AST [Catalytic activity/Vol] 22 U/L Normal 0-41 [facility] Comment on above: Performed By: #### C BCA, CMP, 06685-1, PINR, 61288-5, 85025-3, 37238-4, 35364-1, THYR #### [facility] ([id number]) [address] [place] [address] 80437 Bilirubin [Mass/Vol] 0.8 mg/dL Normal 0.3-1.2 [facility] Comment on above: Performed By: #### C BCA, CMP, 40770-8, PINR, 69276-5, 25197-0, 75841-2, 75155-4, THYR #### [facility] ([id number]) [address] [place] [address] 21430 Calcium [Mass/Vol] 10.0 mg/dL Normal 8.5-10.5 [facility] Comment on above: Performed By: #### C BCA, CMP, 36293-0, PINR, 68565-2, 22533-8, 17979-4, 51297-6, THYR #### [facility] ([id number]) [address] [place] [address] 90836 Chloride [Moles/Vol] 102 mmol/L Normal 98-109 [facility] Comment on above: Performed By: #### C BCA, CMP, 77086-2, PINR, 50657-8, 19354-4, 50499-9, 73585-6, THYR #### [facility] ([id number]) [address] [place] [address] 99092 CO2 [Moles/Vol] 26 mmol/L Normal 22-32 [facility] Comment on above: Performed By: #### C BCA, CMP, 39127-4, PINR, 78389-0, 73155-1, 94346-4, 17669-4, THYR #### [facility] ([id number]) [address] [place] [address] 43868 Creatinine [Mass/Vol] 1.07 mg/dL Normal 0.70-1.20 [facility] Comment on above: Result Comment: METH OD TRACEABLE TO IDMS STANDARD Performed By: #### C BCA, CMP, 44712-8, PINR, 93826-2, 34299-5, 72373-7, 91174-3, THYR #### [facility] ([id number]) [address] [place] [address] 35511 GFR/1.73 sq M.predicted among non-blacks MDRD (S/P/Bld) [Vol rate/Area] 88 mL/min/{1.73_m2} Normal >59 [facility] Comment on above: Result Comment: Reported eGFR is based on the CKD-EPI 2020 equation that does not use a race coefficient. Performed By: #### C BCA, CMP, 23969-3, PINR, 53741-3, 43260-5, 37591-4, 97378-6, THYR #### [facility] ([id number]) [address] [place] [address] 45163 Glucose [Mass/Vol] 94 mg/dL Normal 65-99 [facility] Comment on above: Performed By: #### C BCA, CMP, 00594-3, PINR, 58012-8, 88475-0, 51848-1, 73353-6, THYR #### [facility] ([id number]) [address] [place] [address] 03468 Potassium [Moles/Vol] 4.0 mmol/L Normal 3.5-5.0 [facility] Comment on above: Performed By: #### C BCA, CMP, 91194-7, PINR, 46880-4, 44731-7, 29699-7, 68009-7, THYR #### [facility] ([id number]) [address] [place] [address] 00347 Protein [Mass/Vol] 7.0 g/dL Normal 6.0-8.0 [facility] Comment on above: Performed By: #### C BCA, CMP, 69079-2, PINR, 18013-2, 90556-1, 67038-3, 25226-1, THYR #### [facility] ([id number]) [address] [place] [address] 59609 Sodium [Moles/Vol] 136 mmol/L Normal 134-146 [facility] Comment on above: Performed By: #### C BCA, CMP, 05265-3, PINR, 91823-3, 39612-9, 34530-8, 11410-5, THYR #### [facility] ([id number]) [address] [place] [address] 22963 Urea nitrogen [Mass/Vol] 20 mg/dL Normal 5-23 [facility] Comment on above: Performed By: #### C BCA, CMP, 59655-5, PINR, 24460-3, 80634-8, 24427-3, 54047-2, THYR #### [facility] ([id number]) [address] [place] [address] 52779 MAGNESIUMon 06-02-2023 Magnesium [Mass/Vol] 2.1 mg/dL Normal 1.8-2.6 [facility] Comment on above: Performed By: #### C BCA, CMP, 13864-9, PINR, 35050-7, 71353-6, 56169-5, 74469-8, THYR #### [facility] ([id number]) [address] [place] [address] 32165 TROPONIN Ion 06-02-2023 Troponin I.cardiac [Mass/Vol] ng/mL Normal 0.00-0.04 [facility] Comment on above: Performed By: #### C BCA, CMP, 27103-8, PINR, 91407-1, 27799-6, 96740-6, 26313-6, THYR #### [facility] ([id number]) [address] [place] [address] 33679 CBC AND AUTO DIFFon 06-01-19 24 ABSOLUTE BASOPHIL 0.1 X10E9/L Normal 0.0-0.2 [facility] Comment on above: Performed By: #### C BCA, CMP, 76743-3, PINR, 65375-3, 17519-3, 16272-8, 43978-7, THYR #### [facility] ([id number]) [address] [place] [address] 80813 ABSOLUTE NEUTROPHIL 5.1 X10E9/L Normal 1.5-6.6 [facility] Comment on above: Performed By: #### C BCA, CMP, 02293-1, PINR, 65745-1, 49432-7, 79292-8, 28617-1, THYR #### [facility] ([id number]) [address] [place] [address] [place] [address] Basophils/100 WBC (Bld) 0.8 % Normal [facility] Comment on above: Performed By: #### C BCA, CMP, 19520-3, PINR, 50820-7, 59871-8, 62158-4, 55442-0, THYR #### [facility] ([id number]) [address] [place] [address] 34597 Eosinophils (Bld) [#/Vol] 0.1 10*3/uL Normal 0.0-0.4 [facility] Comment on above: Performed By: #### C BCA, CMP, 03027-2, PINR, 89548-4, 76101-0, 24721-4, 62729-9, THYR #### [facility] ([id number]) [address] [place] [address] 23261 Eosinophils/100 WBC (Bld) 1.1 % Normal [facility] Comment on above: Performed By: #### C BCA, CMP, 36266-8, PINR, 56423-8, 07808-7, 85764-1, 36459-2, THYR #### [facility] ([id number]) [address] [place] [address] 48729 Erythrocyte distribution width (RBC) [Ratio] 13.0 % Normal 11.5-15.0 [facility] Comment on above: Performed By: #### C BCA, CMP, 83879-4, PINR, 90820-4, 73986-8, 51908-3, 17141-3, THYR #### [facility] ([id number]) [address] [place] [address] 23745 Hematocrit (Bld) [Volume fraction] 41.5 % Normal 39-49 [facility] Comment on above: Performed By: #### C BCA, CMP, 14411-6, PINR, 97464-5, 34125-0, 57795-7, 49629-2, THYR #### [facility] ([id number]) [address] [place] [address] 35107 Hemoglobin (Bld) [Mass/Vol] 14.6 g/dL Normal 13.0-17.0 [facility] Comment on above: Performed By: #### C BCA, CMP, 25036-3, PINR, 54144-4, 41172-0, 31204-6, 33885-2, THYR #### [facility] ([id number]) [address] [place] [address] 12939 Lymphocytes (Bld) [#/Vol] 1.7 10*3/uL Normal 1.0-3.5 [facility] Comment on above: Performed By: #### C BCA, CMP, 90908-7, PINR, 95260-7, 06802-7, 63230-6, 28215-3, THYR #### [facility] ([id number]) [address] [place] [address] 05491 Lymphocytes/100 WBC (Bld) 22.2 % Normal [facility] Comment on above: Performed By: #### C BCA, CMP, 61356-7, PINR, 04854-1, 82907-9, 93659-9, 07756-9, THYR #### [facility] ([id number]) [address] [place] [address] 17683 MCH (RBC) [Entitic mass] 30.4 pg Normal 27-34 [facility] Comment on above: Performed By: #### C BCA, CMP, 52799-3, PINR, 12652-7, 05275-4, 36113-8, 16084-8, THYR #### [facility] ([id number]) [address] [place] [address] 74295 MCHC (RBC) [Mass/Vol] 35.1 g/dL Normal 32-36 [facility] Comment on above: Performed By: #### C BCA, CMP, 22522-5, PINR, 04319-0, 91810-3, 12034-5, 88003-6, THYR #### [facility] ([id number]) [address] [place] [address] 15417 MCV (RBC) [Entitic vol] 87 fL Normal 80-100 [facility] Comment on above: Performed By: #### C BCA, CMP, 73916-7, PINR, 52611-2, 01004-8, 25755-8, 99770-3, THYR #### [facility] ([id number]) [address] [place] [address] 40106 Monocytes (Bld) [#/Vol] 0.6 10*3/uL Normal 0-0.9 [facility] Comment on above: Performed By: #### C BCA, CMP, 62168-2, PINR, 39441-2, 74927-0, 66310-6, 28601-7, THYR #### [facility] ([id number]) [address] [place] [address] 28726 Monocytes/100 WBC (Bld) 7.8 % Normal [facility] Comment on above: Performed By: #### C BCA, CMP, 23384-4, PINR, 73753-5, 48910-0, 85855-4, 25305-3, THYR #### [facility] ([id number]) [address] [place] [address] 19618 Neutrophils/100 WBC (Bld) 68.1 % Normal [facility] Comment on above: Performed By: #### C BCA, CMP, 23415-5, PINR, 31220-2, 44644-3, 82072-5, 24984-7, THYR #### [facility] ([id number]) [address] [place] [address] 34406 Platelet mean volume (Bld) [Entitic vol] 8.3 fL Normal 7-12 [facility] Comment on above: Performed By: #### C BCA, CMP, 51525-5, PINR, 66505-8, 52556-1, 31604-4, 80109-2, THYR #### [facility] ([id number]) [address] [place] [address] 14743 Platelets (Bld) [#/Vol] 207 10*3/uL Normal 150-450 [facility] Comment on above: Performed By: #### C BCA, CMP, 61033-7, PINR, 17352-8, 59320-9, 11887-7, 57809-6, THYR #### [facility] ([id number]) [address] [place] [address] 66163 RBC COUNT 4.79 X10E12/L Normal 4.10-5.70 [facility] Comment on above: Performed By: #### C BCA, CMP, 04606-8, PINR, 81027-2, 08312-7, 49930-7, 12982-7, THYR #### [facility] ([id number]) [address] [place] [address] 02450 WBC (Bld) [#/Vol] 7.5 10*3/uL Normal 4.0-11.0 [facility] Comment on above: Performed By: #### C BCA, CMP, 20841-6, PINR, 01065-1, 16585-0, 84754-3, 01132-0, THYR #### [facility] ([id number]) [address] [place] [address] 06042 COMPREHENSIVE METABOLIC PANE Nik 06-01-2023 Albumin [Mass/Vol] 5.0 g/dL Normal 3.2-5.3 [facility] Comment on above: Performed By: #### C BCA, CMP, 22331-6, PINR, 72378-6, 59536-7, 60394-3, 17206-3, THYR #### [facility] ([id number]) [address] [place] [address] 66026 ALP [Catalytic activity/Vol] 90 U/L Normal 39-130 [facility] Comment on above: Performed By: #### C BCA, CMP, 25783-7, PINR, 66087-4, 27627-6, 15236-9, 92416-4, THYR #### [facility] ([id number]) [address] [place] [address] 52551 ALT [Catalytic activity/Vol] 32 U/L Normal 0-40 [facility] Comment on above: Performed By: #### C BCA, CMP, 12036-6, PINR, 06915-4, 96661-7, 16135-1, 07616-8, THYR #### [facility] ([id number]) [address] [place] [address] 80994 Anion gap [Moles/Vol] 7 mmol/L Normal 5-15 [facility] Comment on above: Performed By: #### C BCA, CMP, 60561-7, PINR, 80436-0, 09582-0, 37397-8, 91433-4, THYR #### [facility] ([id number]) [address] [place] [address] 11724 AST [Catalytic activity/Vol] 27 U/L Normal 0-41 [facility] Comment on above: Performed By: #### C BCA, CMP, 66641-0, PINR, 74469-1, 71580-8, 42282-6, 68540-4, THYR #### [facility] ([id number]) [address] [place] [address] 01521 Bilirubin [Mass/Vol] 0.8 mg/dL Normal 0.3-1.2 [facility] Comment on above: Performed By: #### C BCA, CMP, 11604-2, PINR, 51145-2, 65786-2, 09615-4, 89474-3, THYR #### [facility] ([id number]) [address] [place] [address] 15581 Calcium [Mass/Vol] 10.1 mg/dL Normal 8.5-10.5 [facility] Comment on above: Performed By: #### C BCA, CMP, 73875-8, PINR, 57141-0, 78798-9, 82345-4, 78675-8, THYR #### [facility] ([id number]) [address] [place] [address] 01239 Chloride [Moles/Vol] 103 mmol/L Normal 98-109 [facility] Comment on above: Performed By: #### C BCA, CMP, 95611-0, PINR, 90699-4, 66052-3, 77784-0, 64685-0, THYR #### [facility] ([id number]) [address] [place] [address] 44107 CO2 [Moles/Vol] 24 mmol/L Normal 22-32 [facility] Comment on above: Performed By: #### C BCA, CMP, 40244-5, PINR, 89262-8, 38345-5, 83327-5, 11528-9, THYR #### [facility] ([id number]) [address] [place] [address] 25267 Creatinine [Mass/Vol] 1.18 mg/dL Normal 0.70-1.20 [facility] Comment on above: Result Comment: METH OD TRACEABLE TO IDMS STANDARD Performed By: #### C BCA, CMP, 67509-2, PINR, 41396-0, 48558-0, 47116-6, 48936-3, THYR #### [facility] ([id number]) [address] [place] [address] 84163 GFR/1.73 sq M.predicted among non-blacks MDRD (S/P/Bld) [Vol rate/Area] 78 mL/min/{1.73_m2} Normal >59 [facility] Comment on above: Result Comment: Reported eGFR is based on the CKD-EPI 2020 equation that does not use a race coefficient. Performed By: #### C BCA, CMP, 65099-0, PINR, 25975-5, 08756-3, 64881-0, 08317-8, THYR #### [facility] ([id number]) [address] [place] [address] 59250 Glucose [Mass/Vol] 86 mg/dL Normal 65-99 [facility] Comment on above: Performed By: #### C BCA, CMP, 19100-3, PINR, 51622-4, 91064-0, 28719-5, 28545-6, THYR #### [facility] ([id number]) [address] [place] [address] 78586 Potassium [Moles/Vol] 3.8 mmol/L Normal 3.5-5.0 [facility] Comment on above: Performed By: #### C BCA, CMP, 76900-7, PINR, 40927-2, 53253-7, 92820-1, 89709-3, THYR #### [facility] ([id number]) [address] [place] [address] 78759 Protein [Mass/Vol] 7.8 g/dL Normal 6.0-8.0 [facility] Comment on above: Performed By: #### C BCA, CMP, 46866-1, PINR, 86480-2, 11129-1, 06784-3, 82474-1, THYR #### [facility] ([id number]) [address] [place] [address] 63657 Sodium [Moles/Vol] 134 mmol/L Normal 134-146 [facility] Comment on above: Performed By: #### C BCA, CMP, 73388-2, PINR, 84777-4, 04701-6, 07905-7, 03780-1, THYR #### [facility] ([id number]) [address] [place] [address] 92440 Urea nitrogen [Mass/Vol] 16 mg/dL Normal 5-23 [facility] Comment on above: Performed By: #### C BCA, CMP, 15853-8, PINR, 15496-8, 71576-1, 45471-6, 19461-9, THYR #### [facility] ([id number]) [address] [place] [address] 91142 DRUG SCREEN, URINEon 024 AMPHETAMINE/METHAMP Negative Normal NEG [facility] Comment on above: Result Comment: AMPH /METH screening cut off = 1000 ng/mL Performed By: #### C BCA, CMP, 75371-2, PINR, 51748-1, 90614-0, 33490-4, 63042-1, THYR #### [facility] ([id number]) [address] [place] [address] 54659 BARBITURATES Negative Normal NEG [facility] Comment on above: Result Comment: Yen iturates screening cut off value = 200 ng/mL Performed By: #### C BCA, CMP, 99185-7, PINR, 57496-9, 29935-6, 66188-0, 84100-9, THYR #### [facility] ([id number]) [address] [place] [address] 67566 BENZODIAZEPINES Negative Normal NEG [facility] Comment on above: Result Comment: Carlos odiazepines screening cut off value = 200 ng/mL Performed By: #### C BCA, CMP, 42852-6, PINR, 29470-4, 43087-8, 35664-8, 20149-4, THYR #### [facility] ([id number]) [address] [place] [address] 93610 CANNABINOIDS Negative Normal NEG [facility] Comment on above: Result Comment: Shirlene abinoids/THC screening cut off value = 50 ng/mL Performed By: #### C BCA, CMP, 24860-6, PINR, 23882-9, 87410-3, 43698-4, 20262-9, THYR #### [facility] ([id number]) [address] [place] [address] 31652 COCAINE METABOLITE Negative Normal NEG [facility] Comment on above: Result Comment: Coca ine screening cut off value = 300 ng/mL Performed By: #### C BCA, CMP, 65204-1, PINR, 01777-7, 39469-3, 56571-3, 39947-3, THYR #### [facility] ([id number]) [address] [place] [address] 29804 ECSTASY Negative Normal NEG [facility] Comment on above: Result Comment: Ecst asy screening cut off value = 500 ng/mL This report is intended for use in clinical monitoring or management of patients. Performed By: #### C BCA, CMP, 53897-6, PINR, 33859-7, 36018-0, 83031-4, 32326-3, THYR #### [facility] ([id number]) [address] [place] [address] 27355 METHADONE Negative Normal NEG [facility] Comment on above: Result Comment: Meth adone screening cut off value = 300 ng/mL. Performed By: #### C BCA, CMP, 83487-7, PINR, 66151-2, 03986-9, 32382-1, 99677-0, THYR #### [facility] ([id number]) [address] [place] [address] 14284 OPIATES Negative Normal NEG [facility] Comment on above: Result Comment: Opia yolande screening cut off value = 300 ng/mL NOTE: This test is used for the detection of codeine, hydrocodone (>1000 ng/mL), morphine and hydromorphone (>900 ng/mL) in urine. Performed By: #### C BCA, CMP, 51605-7, PINR, 58904-7, 57779-5, 17258-3, 00596-3, THYR #### [facility] ([id number]) [address] [place] [address] 49732 OXYCODONE Negative Normal NEG [facility] Comment on above: Result Comment: Oxyc odone screening cut off value = 300 ng/mL NOTE: This test is used for the detection of oxycodone and oxymorphone in urine. Performed By: #### C BCA, CMP, 84299-1, PINR, 94318-9, 93181-8, 32068-9, 66135-3, THYR #### [facility] ([id number]) [address] [place] [address] 23955 PHENCYCLIDINE Negative Normal NEG [facility] Comment on above: Result Comment: Phen cyclidine screening cut off value = 25 ng/mL Performed By: #### C MERCEDES, ERIK, 19692-0, PINR, 04671-8, 45885-3, 82885-4, 92840-7, THYR #### [facility] ([id number]) [address] [place] [address] 67157 Fibrin D-dimer DDU (PPP) [Ma ss/Vol]on 06-01-2023 D DIMER <150 Normal <255 [facility] Comment on above: Result Comment: Results <255 ng/mL DDU: The presence of a VTE can safely be excluded with a negative D-Dimer result and Wells score. A negative result doesn't exclude the possibility of DIC. The test be repeated along with other diagnostic tests if the patient's symptoms persist or worsen. [email or web address] Performed By: #### C MERCEDES, ERIK, 27269-0, PINR, 38114-2, 19879-7, 15373-8, 20441-7, THYR #### [facility] ([id number]) [address] [place] [address] 19016 Lead (BldV) [Mass/Vol]on LEAD, VENOUS 33.8 mcg/dL High <3.5 [facility] Comment on above: Result Comment: NOTE ADDITIONAL INFORMATION Testing performed by Inductively Coupled Plasma-Mass Spectrometry (ICP-MS). This test was developed and its performance characteristics determined by [facility] in a manner consistent with CLIA requirements. This test has not been cleared or approved by the U.S. Food and Drug Administration. Performed By: #### C BCA, CMP, 37997-0, PINR, 66807-6, 18353-4, 30038-9, 28740-0, THYR #### [facility] ([id number]) [address] [place] [address] 84524 MAGNESIUMon 06-01-2023 Magnesium [Mass/Vol] 2.1 mg/dL Normal 1.8-2.6 [facility] Comment on above: Performed By: #### C BCA, CMP, 88447-7, PINR, 85716-6, 32619-2, 31928-4, 45275-6, THYR #### [facility] ([id number]) [address] [place] [address] 99244 Natriuretic peptide B [Mass/ Vol]on 06-01-2023 BRN NATRIURETIC PEP <5 Normal <100.0 [facility] Comment on above: Performed By: #### C BCA, CMP, 16093-2, PINR, 51088-7, 21168-9, 70832-9, 26577-2, THYR #### [facility] ([id number]) [address] [place] [address] 11158 PROTIME AND INRon 06-01-2023 INR Coag (PPP) [Relative time] 1.1 {INR} Normal 0.8-1.1 [facility] Comment on above: Performed By: #### C BCA, CMP, 14804-6, PINR, 51716-9, 90887-5, 22218-1, 81290-2, THYR #### [facility] ([id number]) [address] [place] [address] 48092 PT Coag (PPP) [Time] 12.6 s Normal 9.8-13.2 [facility] Comment on above: Result Comment: NEW REFERENCE RANGE Performed By: #### C BCA, CMP, 45661-3, PINR, 00349-2, 01869-4, 82760-4, 08169-4, THYR #### [facility] ([id number]) [address] [place] [address] 32097 THYROID PROFILEon 06-01-2023 Free T4 [Mass/Vol] 0.88 ng/dL Normal 0.61-1.60 [facility] Comment on above: Performed By: #### C BCA, CMP, 29721-8, PINR, 45874-7, 97936-6, 85109-7, 15269-9, THYR #### [facility] ([id number]) [address] [place] [address] 29050 TSH 1.27 uIU/mL Normal 0.49-4.67 [facility] Comment on above: Performed By: #### C BCA, CMP, 51328-4, PINR, 70285-1, 18724-5, 70085-9, 73272-2, THYR #### [facility] ([id number]) [address] [place] [address] 13990 TROPONIN Ion 06-01-2023 Troponin I.cardiac [Mass/Vol] ng/mL Normal 0.00-0.04 [facility] Comment on above: Performed By: #### C BCA, CMP, 33510-2, PINR, 24860-9, 24081-8, 67844-6, 47018-5, THYR #### [facility] ([id number]) [address] [place] [address] 39623 URN MACROSCOPIC NURon 2023 BILIRUBIN FITO Negative Normal NEG [facility] Comment on above: Performed By: #### C BCA, CMP, 94201-4, PINR, 74900-7, 91799-1, 45484-4, 17812-6, THYR #### [facility] ([id number]) [address] [place] [address] 21726 BLOOD/HGB FITO Negative Normal NEG [facility] Comment on above: Performed By: #### C BCA, CMP, 31788-8, PINR, 55492-9, 55920-4, 41731-5, 93116-0, THYR #### [facility] ([id number]) [address] [place] [address] 29771 GLUCOSE FITO Negative Normal NEG [facility] Comment on above: Performed By: #### C BCA, CMP, 83876-3, PINR, 03585-3, 01692-3, 33285-7, 46883-9, THYR #### [facility] ([id number]) [address] [place] [address] 43022 KETONES FITO 40 mg/dL Abnormal NEG [facility] Comment on above: Performed By: #### C BCA, CMP, 46383-0, PINR, 81932-8, 20008-7, 36919-9, 96720-5, THYR #### [facility] ([id number]) [address] [place] [address] 69256 LEUKOCYTE ESTERASE FITO Negative Normal NEG [facility] Comment on above: Performed By: #### C BCA, CMP, 49799-7, PINR, 19818-4, 45319-1, 54834-6, 25405-3, THYR #### [facility] ([id number]) [address] [place] [address] 03969 NITRITE FITO Negative Normal NEG [facility] Comment on above: Performed By: #### C BCA, CMP, 49379-2, PINR, 90404-0, 25714-0, 40578-5, 05931-6, THYR #### [facility] ([id number]) [address] [place] [address] 39854 PH FITO 5.5 Normal 5.0-8.5 [facility] Comment on above: Performed By: #### C BCA, CMP, 37122-4, PINR, 35443-3, 34851-5, 94201-3, 48275-1, THYR #### [facility] ([id number]) [address] [place] [address] 44553 PROTEIN FITO Negative Normal NEG [facility] Comment on above: Performed By: #### C BCA, CMP, 17570-6, PINR, 52401-2, 05013-2, 87876-9, 15202-2, THYR #### [facility] ([id number]) [address] [place] [address] 84602 SPECIFIC GRAVITY FITO 1.025 Normal 1.003-1.035 [facility] Comment on above: Performed By: #### C BCA, CMP, 99619-2, PINR, 93708-4, 89012-1, 52763-2, 45320-0, THYR #### [facility] ([id number]) [address] [place] [address] 46828 UROBILINOGEN FITO 0.2 eu/dL Normal <1.1 [facility] Comment on above: Performed By: #### C BCA, CMP, 96959-1, PINR, 68869-2, 25148-5, 48642-9, 93934-2, THYR #### [facility] ([id number]) [address] [place] [address] 53781 XR CHEST 1 VWon 06-01-2023 XR CHEST [...] Pardo DO on 06/01/2023 3:32 PM Normal [facility] aPTT Coag (PPP) [Time]on aPTT Coag (Bld) [Time] 35 s Normal 26-37 [facility] Comment on above: Result Comment: NEW REFERENCE RANGE Performed By: #### C BCA, CMP, 50644-6, PINR, 17052-3, 40015-7, 60785-6, 69822-1, THYR #### [facility] ([id number]) [address] [place] [address], [place] [address] LEAD,ADULTon 09-05-2022 Lead, Blood (Adult) 45.4 ug/dL Invalid Interpretation Code 0.0-3.4 [facility] Comment on above: Result Comment: Test ing performed by Inductively coupled plasma/Mass Spectrometry. Verified by repeat analysis Analysis by inductively coupled plasma/mass spectrometry (ICP/MS) Environmental Exposure: WHO Recommendation <20.0 Occupational Exposure: OSHA Lead Std 40.0 CHAZ 30.0 . Detection Limit = 1.0 Performed By: #### L EADA #### [facility] [address] [place] [address] Dr. Rachel Cortez LEAD,ADULTon 09-01-2022 Lead, Blood (Adult) CLOTWB Normal The [facility] Comment on above: Result Comment: Test not performed. Whole blood specimen partially or completely clotted. A common cause is insufficient mixing upon collection. Testing performed by Inductively coupled plasma/Mass Spectrometry. contacted Nohelia at your facility on 09-01-2022 Environmental Exposure: WHO Recommendation <20.0 Occupational Exposure: OSHA Lead Std 40.0 CHAZ 30.0 . Detection Limit = 1.0 Performed By: #### I NSULIN #### [facility] [address] [place] [address] Dr. Rachel Cortez LEAD,ADULTon 08-30-2022 Lead, Blood (Adult) CLOTWB Normal The [facility] Comment on above: Result Comment: Test not performed. Whole blood specimen partially or completely clotted. A common cause is insufficient mixing upon collection. Testing performed by Inductively coupled plasma/Mass Spectrometry. contacted Taya at your facility on 08-30-2022 Environmental Exposure: WHO Recommendation <20.0 Occupational Exposure: OSHA Lead Std 40.0 CHAZ 30.0 . Detection Limit = 1.0 Performed By: #### L EADA #### [facility] [address] [place] [address] Dr. Rachel Cortez BNPon 08-29-2022 Natriuretic peptide B (Bld) [Mass/Vol] 10.0 pg/mL Normal <=450.0 [facility] Comment on above: Performed By: #### C MP, TSH, BNP #### [facility] [address] [place] [address] Dr. Rachel Cortez CBC AUTO DIFFon 08-29-2022 BASO # 0.0 103/ul Normal 0.0-0.1 [facility] Comment on above: Performed By: #### C BC #### [facility] [address] [place] [address] Dr. Rachel Cortez Basophils/100 WBC (Bld) 0.5 % Normal 0.2-2.0 [facility] Comment on above: Performed By: #### C BC #### [facility] [address] [place] [address] Dr. Rachel Cortez EO # 0.2 103/ul Normal 0.0-0.7 [facility] Comment on above: Performed By: #### C BC #### [facility] [address] [place] [address] Dr. Rachel Cortez Eosinophils/100 WBC (Bld) 2.7 % Normal 0.9-7.0 [facility] Comment on above: Performed By: #### C BC #### [facility] [address] [place] [address] Dr. Rachel Cortez Erythrocyte distribution width (RBC) [Ratio] 12.3 % Normal 11.0-15.0 [facility] Comment on above: Performed By: #### C BC #### [facility] [address] [place] [address] Dr. Rachel Cortez Hematocrit (Bld) [Volume fraction] 40.9 % Critically low 42.0-54.0 [facility] Comment on above: Performed By: #### C BC #### [facility] [address] [place] [address] Dr. Rachel Cortez Hemoglobin (Bld) [Mass/Vol] 13.9 g/dL Critically low 14.0-18.0 [facility] Comment on above: Performed By: #### C BC #### [facility] [address] [place] [address] Dr. Rachel Cortez IG # 0.02 10e3/ul Normal 0.00-0.03 [facility] Comment on above: Performed By: #### C BC #### [facility] [address] [place] [address] Dr. aRchel Cortez IG % 0.3 % Normal 0.0-0.5 [facility] Comment on above: Performed By: #### C BC #### [facility] [address] [place] [address] Dr. Rachel Cortez LYMPH # 1.6 103/ul Normal 1.2-3.8 [facility] Comment on above: Performed By: #### C BC #### [facility] [address] [place] [address] Dr. Rachel Cortez Lymphocytes/100 WBC (Bld) 21.2 % Normal 20.5-60.0 [facility] Comment on above: Performed By: #### C BC #### [facility] [address] [place] [address] Dr. Rachel Cortez MANUAL DIFF REQ NO Normal [facility] Comment on above: Performed By: #### C BC #### [facility] [address] [place] [address] Dr. Rachel Cortez MCH (RBC) [Entitic mass] 30.3 pg Normal 25.9-34.0 [facility] Comment on above: Performed By: #### C BC #### [facility] [address] [place] [address] Dr. Rachel Cortez MCHC (RBC) [Mass/Vol] 34.0 g/dL Normal 29.9-35.2 [facility] Comment on above: Performed By: #### C BC #### [facility] [address] [place] [address] Dr. Rachel Cortez MCV (RBC) [Entitic vol] 89.3 fL Normal 80.0-94.0 [facility] Comment on above: Performed By: #### C BC #### [facility] [address] [place] [address] Dr. Rachel Cortez MONO # 0.6 103/ul Normal 0.3-0.8 [facility] Comment on above: Performed By: #### C BC #### [facility] [address] [place] [address] Dr. Rachel Cortez Monocytes/100 WBC (Bld) 8.6 % Normal 1.7-12.0 [facility] Comment on above: Performed By: #### C BC #### [facility] [address] [place] [address] Dr. Rachel Cortez NEUT # 5.0 103/ul Normal 1.4-6.5 [facility] Comment on above: Performed By: #### C BC #### [facility] [address] [place] [address] Dr. Rachel Cortez Neutrophils/100 WBC (Bld) 66.7 % Normal 43.0-75.0 [facility] Comment on above: Performed By: #### C BC #### [facility] [address] [place] [address] Dr. Rachel Cortez Platelet mean volume (Bld) [Entitic vol] 10.2 fL Normal 9.5-13.5 [facility] Comment on above: Performed By: #### C BC #### [facility] [address] [place] [address] Dr. Rachel Cortez PLT 198 103/ul Normal 150-450 [facility] Comment on above: Performed By: #### C BC #### [facility] [address] [place] [address] Dr. Rachel Cortez RBC 4.58 106/ul Critically low 4.70-6.10 [facility] Comment on above: Performed By: #### C BC #### [facility] [address] [place] [address] Dr. Rachel Cortez WBC 7.5 103/ul Normal 4.0-11.0 [facility] Comment on above: Performed By: #### C BC #### [facility] [address] [place] [address] Dr. Rachel Cortez FREE T4on 08-29-2022 Free T4 [Mass/Vol] 0.84 ng/dL Normal 0.76-1.46 [facility] Comment on above: Performed By: #### I KANDIS FT4 #### [facility] [address] [place] [address] Dr. Rachel RAMon 08-29-2022 Iron [Mass/Vol] 86.0 ug/dL Normal 65.0-175.0 [facility] Comment on above: Performed By: #### I KANDIS FT4 #### [facility] [address] [place] [address] Dr. Rachel Cortez PROF 14(COMP METB)on 023 Albumin [Mass/Vol] 4.0 g/dL Normal 3.4-5.0 [facility] Comment on above: Performed By: #### C MP, TSH, BNP #### [facility] [address] [place] [address] Dr. Rachel Cortez Albumin/Globulin [Mass ratio] 1.2 {ratio} Normal [facility] Comment on above: Performed By: #### C MP, TSH, BNP #### [facility] [address] [place] [address] Dr. Rachel Cortez ALP [Catalytic activity/Vol] 103 U/L Normal 46-116 [facility] Comment on above: Performed By: #### C MP, TSH, BNP #### [facility] [address] [place] [address] Dr. Rachel Cortez ALT [Catalytic activity/Vol] 39 U/L Normal 16-63 [facility] Comment on above: Performed By: #### C MP, TSH, BNP #### [facility] [address] [place] [address] Dr. Rachel Cortez Anion gap [Moles/Vol] 10.2 mmol/L Normal [facility] Comment on above: Performed By: #### C MP, TSH, BNP #### [facility] [address] [place] [address] Dr. Rachel Cortez AST [Catalytic activity/Vol] 20 U/L Normal 15-37 [facility] Comment on above: Performed By: #### C MP, TSH, BNP #### [facility] [address] [address] [address] Rachel Cortez Bilirubin [Mass/Vol] 0.3 mg/dL Normal 0.2-1.0 [facility] Comment on above: Performed By: #### C MP, TSH, BNP #### [facility] [address] [place] [address] Dr. Rachel Cortez Calcium [Mass/Vol] 9.8 mg/dL Normal 8.5-10.1 [facility] Comment on above: Performed By: #### C MP, TSH, BNP #### [facility] [address] [place] [address] Dr. Rachel Cortez Chloride [Moles/Vol] 105 mmol/L Normal 98-107 [facility] Comment on above: Performed By: #### C MP, TSH, BNP #### [facility] [address] [place] [address] Dr. Rachel Cortez CO2 [Moles/Vol] 29.9 mmol/L Normal 21.0-32.0 [facility] Comment on above: Performed By: #### C MP, TSH, BNP #### [facility] [address] [place] [address] Dr. Rachel Cortez Creatinine [Mass/Vol] 1.19 mg/dL Normal 0.70-1.30 [facility] Comment on above: Performed By: #### C MP, TSH, BNP #### [facility] [address] [place] [address] Dr. Rachel Cortez EGFR-AF KENYAN >60 Normal >=60 [facility] Comment on above: Performed By: #### C MP, TSH, BNP #### [facility] [address] [place] [address] Dr. Rachel Cortez EGFR-NON AF KENYAN >60 Normal >=60 [facility] Comment on above: Performed By: #### C MP, TSH, BNP #### [facility] [address] [place] [address] Dr. Rachel Cortez Globulin (S) [Mass/Vol] 3.4 g/dL Normal [facility] Comment on above: Performed By: #### C MP, TSH, BNP #### [facility] [address] [place] [address] Dr. Rachel Cortez Glucose [Mass/Vol] 105 mg/dL Normal 74-106 [facility] Comment on above: Performed By: #### C MP, TSH, BNP #### [facility] [address] [place] [address] Dr. Rachel Cortez Potassium [Moles/Vol] 4.1 mmol/L Normal 3.5-5.1 [facility] Comment on above: Performed By: #### C MP, TSH, BNP #### [facility] [address] [place] [address] Dr. Rachel Cortez Protein [Mass/Vol] 7.4 g/dL Normal 6.4-8.2 [facility] Comment on above: Performed By: #### C MP, TSH, BNP #### [facility] [address] [place] [address] Dr. Rachel Cortez Sodium [Moles/Vol] 141 mmol/L Normal 136-145 [facility] Comment on above: Performed By: #### C MP, TSH, BNP #### [facility] [address] [place] [address] Dr. Rachel Cortez Urea nitrogen [Mass/Vol] 16.0 mg/dL Normal 7.0-18.0 [facility] Comment on above: Performed By: #### C MP, TSH, BNP #### [facility] [address] [place] [address] Dr. Rachel Cortez Urea nitrogen/Creatinine [Mass ratio] 13.4 mg/mg Normal [facility] Comment on above: Performed By: #### C MP, TSH, BNP #### [facility] [address] [place] [address] Dr. Rachel Cortez TSHon 08-29-2022 TSH 0.978 uIU/mL Normal 0.358-3.740 [facility] Comment on above: Performed By: #### I NSULIN #### [facility] [address] [place] [address] FACIAL BONES WO CONon 04- 20-2023 CT FACIAL BONES WO CON EXAMINATION: CT [...] WILFRID CAMARENA Date: 2022-08-11 18:30 Normal [facility] CT HEAD WO CONon 08-11-2022 CT [...] MARLYS MUNOZ Date: 2022-08-11 19:49 Normal [facility] INSULINon 05-09-2022 Insulin 9.9 uIU/mL Normal 2.6-24.9 [facility] Comment on above: Performed By: #### I NSULIN #### [facility] [address] [place] [address] Dr. Rachel Cortez CBC AUTO DIFFon 05-07-2022 BASO # 0.1 103/ul Normal 0.0-0.1 [facility] Comment on above: Performed By: #### I NSULIN #### [facility] [address] [place] [address] Dr. Rachel Cortez Basophils/100 WBC (Bld) 0.7 % Normal 0.2-2.0 [facility] Comment on above: Performed By: #### I NSULIN #### [facility] [address] [place] [address] Dr. Rachel Cortez EO # 0.0 103/ul Normal 0.0-0.7 [facility] Comment on above: Performed By: #### I NSULIN #### [facility] [address] [place] [address] Dr. Rachel Cortez Eosinophils/100 WBC (Bld) 0.1 % Critically low 0.9-7.0 [facility] Comment on above: Performed By: #### I NSULIN #### [facility] [address] [place] [address] Dr. Rachel Cortez Erythrocyte distribution width (RBC) [Ratio] 12.2 % Normal 11.0-15.0 [facility] Comment on above: Performed By: #### I NSULIN #### [facility] [address] [place] [address] Dr. Rachel Cortez Hematocrit (Bld) [Volume fraction] 41.1 % Critically low 42.0-54.0 [facility] Comment on above: Performed By: #### I NSULIN #### [facility] [address] [place] [address] Dr. Rachel Cortez Hemoglobin (Bld) [Mass/Vol] 14.1 g/dL Normal 14.0-18.0 [facility] Comment on above: Performed By: #### I NSULIN #### [facility] [address] [place] [address] Dr. Rachel Cortez IG # 0.03 10e3/ul Normal 0.00-0.03 [facility] Comment on above: Performed By: #### I NSULIN #### [facility] [address] [place] [address] Dr. Rachel Cortez IG % 0.4 % Normal 0.0-0.5 [facility] Comment on above: Performed By: #### I NSULIN #### [facility] [address] [place] [address] Dr. Rachel Cortez LYMPH # 2.3 103/ul Normal 1.2-3.8 [facility] Comment on above: Performed By: #### I NSULIN #### [facility] [address] [place] [address] Dr. Rachel Cortez Lymphocytes/100 WBC (Bld) 30.8 % Normal 20.5-60.0 [facility] Comment on above: Performed By: #### I NSULIN #### [facility] [address] [place] [address] Dr. Rachel Cortez MANUAL DIFF REQ NO Normal [facility] Comment on above: Performed By: #### I NSULIN #### [facility] [address] [place] [address] Dr. Rachel Cortez MCH (RBC) [Entitic mass] 29.9 pg Normal 25.9-34.0 [facility] Comment on above: Performed By: #### I NSULIN #### [facility] [address] [place] [address] Dr. Rachel Cortez MCHC (RBC) [Mass/Vol] 34.3 g/dL Normal 29.9-35.2 [facility] Comment on above: Performed By: #### I NSULIN #### [facility] [address] [place] [address] Dr. Rachel Cortez MCV (RBC) [Entitic vol] 87.3 fL Normal 80.0-94.0 [facility] Comment on above: Performed By: #### I NSULIN #### [facility] [address] [place] [address] Dr. Rachel Cortez MONO # 0.7 103/ul Normal 0.3-0.8 [facility] Comment on above: Performed By: #### I NSULIN #### [facility] [address] [place] [address] Dr. Rachel Cortez Monocytes/100 WBC (Bld) 8.9 % Normal 1.7-12.0 [facility] Comment on above: Performed By: #### I NSULIN #### [facility] [address] [place] [address] Dr. Rachel Cortez NEUT # 4.3 103/ul Normal 1.4-6.5 [facility] Comment on above: Performed By: #### I NSULIN #### [facility] [address] [place] [address] Dr. Rachel Cortez Neutrophils/100 WBC (Bld) 59.1 % Normal 43.0-75.0 [facility] Comment on above: Performed By: #### I NSULIN #### [facility] [address] [place] [address] Dr. Rachel Cortez Platelet mean volume (Bld) [Entitic vol] 9.9 fL Normal 9.5-13.5 [facility] Comment on above: Performed By: #### I NSULIN #### [facility] [address] [place] [address] Dr. Rachel Cortez PLT 184 103/ul Normal 150-450 [facility] Comment on above: Performed By: #### I NSULIN #### [facility] [address] [place] [address] Dr. Rachel Cortez RBC 4.71 106/ul Normal 4.70-6.10 [facility] Comment on above: Performed By: #### I NSULIN #### [facility] [address] [place] [address] Dr. Rachel Cortez WBC 7.3 103/ul Normal 4.0-11.0 [facility] Comment on above: Performed By: #### I NSULIN #### [facility] [address] [place] [address] Dr. Rachel Cortez CULTURE URINEon 05-07-2022 CULTURE URINE Culture Observations: LIGHT GROWTH OF MIXED SKIN NILES. NO POTENTIAL PATHOGENS SEEN. Normal [facility] Comment on above: Performed By: #### I NSULIN #### [facility] [address] [place] [address] Dr. Rachel Cortez FREE THYROXINE INDEX T7on FTI 2.07 Normal 1.30-4.50 [facility] Comment on above: Performed By: #### I NSULIN #### [facility] [address] [place] [address] Dr. Rachel Cortez T3U 35.0 % Normal 33.0-40.0 [facility] Comment on above: Performed By: #### I NSULIN #### [facility] [address] [place] [address] Dr. Rachel Cortez T4 [Mass/Vol] 5.90 ug/dL Normal 4.50-12.10 [facility] Comment on above: Performed By: #### I NSULIN #### [facility] [address] [place] [address] Dr. Rachel Cortez GLYCOHEMOGLOBIN A1Con 2022 ADA RECOMMENDATION SEE BELOW Normal [facility] Comment on above: Result Comment: ADA RECOMMENDED LIMIT 4.0 - 6.0 ADA THERAPEUTIC TARGET < 7.0 ACTION SUGGESTED > 7.0 Performed By: #### A 1C #### [facility] [address] [place] [address] Dr. Rachel Cortez Glucose [Mass/Vol] 100 mg/dL Normal [facility] Comment on above: Performed By: #### A 1C #### [facility] [address] [place] [address] Dr. Rachel Cortez HbA1c (Bld) [Mass fraction] 5.1 % Normal 4.5-6.2 [facility] Comment on above: Performed By: #### A 1C #### [facility] [address] [place] [address] Dr. Rachel Cortez IRONon 05-07-2022 Iron [Mass/Vol] 104.0 ug/dL Normal 65.0-175.0 [facility] Comment on above: Performed By: #### I NSULIN #### [facility] [address] [address] [address] Rachel Cortez LIPID PROFILEon 05-07-2022 CHOL-HDL RATIO NORM SEE BELOW Normal [facility] Comment on above: Result Comment: 3.3 - 4.4 LOW RISK 4.4 - 7.1 AVERAGE RISK 7.1 - 11.0 MODERATE RISK >11.0 HIGH RISK Performed By: #### C MP, LIPID #### [facility] [address] [address] [address] Rachel Cortez Cholesterol [Mass/Vol] 147 mg/dL Normal <=200 [facility] Comment on above: Performed By: #### C MP, LIPID #### [facility] [address] [address] [address] Rachel Cortez Cholesterol in HDL [Mass/Vol] 56 mg/dL Normal 40-60 [facility] Comment on above: Performed By: #### C MP, LIPID #### [facility] [address] [address] [address] Rachel Cortez Cholesterol in LDL [Mass/Vol] 77.8 mg/dL Normal [facility] Comment on above: Performed By: #### C MP, LIPID #### [facility] [address] [place] [address] Dr. Rachel Cortez Cholesterol.total/Ch olesterol in HDL [Mass ratio] 2.6 {ratio} Normal [facility] Comment on above: Performed By: #### C MP, LIPID #### [facility] [address] [address] [address] Rachel Cortez HDL NORMAL > or = 60 mg/dl - LOW CARDIOVASCULAR RISK <40 mg/dl - HIGH CARDIOVASCULAR RISK Normal [facility] Comment on above: Performed By: #### C MP, LIPID #### [facility] [address] [address] [address] Rachel Cortez LDL CALC NORMAL SEE BELOW Normal [facility] Comment on above: Result Comment: <100 mg/dl OPTIMAL 100 - 129 mg/dl NEAR OR ABOVE OPTIMAL 130 - 159 mg/dl BORDERLINE HIGH 160 - 189 mg/dl HIGH >190 mg/dl VERY HIGH Performed By: #### C MP, LIPID #### [facility] [address] [place] [address] Dr. Rachel Cortez Triglyceride [Mass/Vol] 66 mg/dL Normal <=150 [facility] Comment on above: Performed By: #### C MP, LIPID #### [facility] [address] [place] [address] Dr. Rachel Cortez VLDL CALC 13.2 mg/dL Normal [facility] Comment on above: Performed By: #### C MP, LIPID #### [facility] [address] [place] [address] Dr. Rachel Cortez PROF 14(COMP METB)on 023 Albumin [Mass/Vol] 4.0 g/dL Normal 3.4-5.0 [facility] Comment on above: Performed By: #### C MP, LIPID #### [facility] [address] [place] [address] Dr. Rachel Cortez Albumin/Globulin [Mass ratio] 1.3 {ratio} Normal [facility] Comment on above: Performed By: #### C MP, LIPID #### [facility] [address] [place] [address] Dr. Rachel Cortez ALP [Catalytic activity/Vol] 86 U/L Normal 46-116 [facility] Comment on above: Performed By: #### C MP, LIPID #### [facility] [address] [place] [address] Dr. Rachel Cortez ALT [Catalytic activity/Vol] 35 U/L Normal 16-63 [facility] Comment on above: Performed By: #### C MP, LIPID #### [facility] [address] [place] [address] Dr. Rachel Cortez Anion gap [Moles/Vol] 9.9 mmol/L Normal [facility] Comment on above: Performed By: #### C MP, LIPID #### [facility] [address] [place] [address] Dr. Rachel Cortez AST [Catalytic activity/Vol] 22 U/L Normal 15-37 [facility] Comment on above: Performed By: #### C MP, LIPID #### [facility] [address] [address] [address] Rachel Cortez Bilirubin [Mass/Vol] 0.4 mg/dL Normal 0.2-1.0 [facility] Comment on above: Performed By: #### C MP, LIPID #### [facility] [address] [address] [address] Rachel Cortez Calcium [Mass/Vol] 10.1 mg/dL Normal 8.5-10.1 [facility] Comment on above: Performed By: #### C MP, LIPID #### [facility] [address] [place] [address] Dr. Rachel Cortez Chloride [Moles/Vol] 107 mmol/L Normal 98-107 [facility] Comment on above: Performed By: #### C MP, LIPID #### [facility] [address] [place] [address] Dr. Rachel Cortez CO2 [Moles/Vol] 30.0 mmol/L Normal 21.0-32.0 [facility] Comment on above: Performed By: #### C MP, LIPID #### [facility] [address] [place] [address] Dr. Rachel Cortez Creatinine [Mass/Vol] 1.16 mg/dL Normal 0.70-1.30 [facility] Comment on above: Performed By: #### C MP, LIPID #### [facility] [address] [place] [address] Dr. Rachel Cortez EGFR-AF KENYAN >60 Normal >=60 [facility] Comment on above: Performed By: #### C MP, LIPID #### [facility] [address] [place] [address] Dr. Rachel Cortez EGFR-NON AF KENYAN >60 Normal >=60 [facility] Comment on above: Performed By: #### C MP, LIPID #### [facility] [address] [place] [address] Dr. Rachel Cortez Globulin (S) [Mass/Vol] 3.0 g/dL Normal [facility] Comment on above: Performed By: #### C MP, LIPID #### [facility] [address] [address] [address] Rachel Cortez Glucose [Mass/Vol] 88 mg/dL Normal 74-106 [facility] Comment on above: Performed By: #### C MP, LIPID #### [facility] [address] [place] [address] Dr. Rachel Cortez Potassium [Moles/Vol] 3.9 mmol/L Normal 3.5-5.1 [facility] Comment on above: Performed By: #### C MP, LIPID #### [facility] [address] [place] [address] Dr. Rachel Cortez Protein [Mass/Vol] 7.0 g/dL Normal 6.4-8.2 [facility] Comment on above: Performed By: #### C MP, LIPID #### [facility] [address] [place] [address] Dr. Rachel Cortez Sodium [Moles/Vol] 143 mmol/L Normal 136-145 [facility] Comment on above: Performed By: #### C MP, LIPID #### [facility] [address] [place] [address] Dr. Rachel Cortez Urea nitrogen [Mass/Vol] 16.0 mg/dL Normal 7.0-18.0 [facility] Comment on above: Performed By: #### C MP, LIPID #### [facility] [address] [place] [address] Dr. Rachel Cortez Urea nitrogen/Creatinine [Mass ratio] 13.8 mg/mg Normal [facility] Comment on above: Performed By: #### C MP, LIPID #### [facility] [address] [place] [address] Dr. Rachel Cortez TSHon 05-07-2022 TSH 2.417 uIU/mL Normal 0.358-3.740 [facility] Comment on above: Performed By: #### I NSULIN #### [facility] [address] [place] [address] Dr. Rachel Cortez UA RANDOM W/MICROSCOPICon BACTERIA NONE SEEN Normal NONE SEEN [facility] Comment on above: Performed By: #### I NSULIN #### [facility] [address] [address] [address] Rachel Cortez Bilirubin Ql (U) Negative Normal NEGATIVE [facility] Comment on above: Performed By: #### I NSULIN #### [facility] [address] [address] [address] Rachel Cortez CAST NONE SEEN Normal NONE SEEN [facility] Comment on above: Performed By: #### I NSULIN #### [facility] [address] [address] [address] Rachel Cortez Clarity (U) CLEAR Normal CLEAR [facility] Comment on above: Performed By: #### I NSULIN #### [facility] [address] [place] [address] Dr. Rachel Cortez Color (U) YELLOW Normal YELLOW [facility] Comment on above: Performed By: #### I NSULIN #### [facility] [address] [place] [address] Dr. Rachel Cortez Crystals LM Nom (Urine sed) NONE SEEN Normal NONE SEEN [facility] Comment on above: Performed By: #### I NSULIN #### [facility] [address] [place] [address] Dr. Rachel Cortez Epithelial cells LM Ql (Urine sed) NONE SEEN Normal NONE SEEN /RARE [facility] Comment on above: Performed By: #### I NSULIN #### [facility] [address] [place] [address] Dr. Rachel Cortez Glucose Ql (U) Negative Normal NEGATIVE [facility] Comment on above: Performed By: #### I NSULIN #### [facility] [address] [place] [address] Dr. Rachel Cortez Hemoglobin Ql (U) Negative Normal NEGATIVE [facility] Comment on above: Performed By: #### I NSULIN #### [facility] [address] [place] [address] Dr. Rachel Cortez Ketones Ql (U) Negative Normal NEGATIVE [facility] Comment on above: Performed By: #### I NSULIN #### [facility] [address] [place] [address] Dr. Rachel Cortez LEUKOCYTES Negative Normal NEGATIVE [facility] Comment on above: Performed By: #### I NSULIN #### [facility] [address] [address] [address] Rachel Cortez MUCOUS MODERATE Abnormal NONE SEEN [facility] Comment on above: Performed By: #### I NSULIN #### [facility] [address] [address] [address] Rachel Cortez Nitrite Ql (U) Negative Normal NEGATIVE [facility] Comment on above: Performed By: #### I NSULIN #### [facility] [address] [place] [address] Dr. Rachel Cortez pH (U) 6.0 [pH] Normal 5-9 [facility] Comment on above: Performed By: #### I NSULIN #### [facility] [address] [place] [address] Dr. Rachel Cortez RBC NONE SEEN Abnormal 0-2 [facility] Comment on above: Performed By: #### I NSULIN #### [facility] [address] [place] [address] Dr. Rachel Cortez SPEC GRAVITY 1.030 Abnormal 1.005-<=1.025 [facility] Comment on above: Performed By: #### I NSULIN #### [facility] [address] [place] [address] Dr. Rachel Cortez UA PROTEIN Negative Normal NEGATIVE/ TRACE [facility] Comment on above: Performed By: #### I NSULIN #### [facility] [address] [place] [address] Dr. Rachel Cortez Urobilinogen Qn (U) 1.0 {Colby'U}/dL Normal 0.2 - 1. 0 [facility] Comment on above: Performed By: #### I NSULIN #### [facility] [address] [place] [address] Dr. Rachel Cortez WBC NONE SEEN Normal NONE SEEN [facility] Comment on above: Performed By: #### I NSULIN #### [facility] [address] [place] [address] Dr. Rachel Cortez XR LSPINE MIN 4 [...] by: MARINA MAIN Date: 2022-05-06 16:40 Normal [facility] Coding Summary.on 03-31-2020 Coding Summary. CODING DATE: 03/31/2020 FINAL [facility] STATUS: Home (Routine DC) PAYOR: Self [...] Barajas Date Saved: 03/31/2020 08:[address] [facility] Consent for Treatmenton Consent for Treatment [id number] #1.00CD:[address] [facility] Discharge Instructionson Discharge Instructions [id number] 6#1.00CD:[address] [facility] ED Clinical Summaryon 2019 ED Clinical Summary [place] [id number] ED Clinical Summary Person Information Name: REY BAXTER/[facility] Age: 39 Years : 1980 Sex: Male Language: Zambian PCP: Irena Gardner MD Marital Status: Single [...] 03/30/2020 14:05:58 03/30/2020 14:05:58 03/30/2020 14:05:58 ADDRESS: [address] [place] [id number] PHYS DOC NOTES: MEDICAL INFORMATION: Prescriptions Given: New Medications Printed Prescriptions acetaminophen-hydroc odone (Dellrose 325 mg-5 mg oral tablet) 1 Tablets [...] Follow up: With: Address: When: Irena Gardner [address] [place] [address], [facility] [place] [phone] Business (1) In 3 days 04/02/2020 DIAGNOSIS: Lumbar strain Normal [facility] ED Note-Physicianon 03-30-20 ED Note-Physician Basic Information Time Seen: Darrick Gibbs PA-C 03/30/2020 11:47 Chief Complaint Pt. presents to the ed with c/o left lower back pain that started last night while laying in bed. 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 History of Present Illness 39-year-old male comes [...] and follow-up recommendations Discharge Prescription List Prescriptions Dellrose 325 mg-5 mg oral tablet, 1 tab(s), Oral, q6hr, PRN predniSONE 20 mg Tab, 60 mg= 3 tab(s), Oral, Daily Robaxin-750 oral tablet, 1500 mg= 2 tab(s), Oral, TID Follow-up With When Contact Information Irena Gardner In 3 days 04/02/2020 [place] [id number] Business (1) Additional Instructions: Patient Education Lumbosacral Strain Attestation Patient seen and evaluated by the physician engineering inspection assistant. Attending physician was present in the emergency department and supervised care. This report was transcribed using voice recognition software. Every effort was made to ensure accuracy, however, inadvertently computerized sueding and buffing machine operator mistakes may be present. Appropriate healthcare PPE [...] oral syrup, 5 mL, Oral, QID, PRN Dellrose 325 mg-5 mg oral tablet, 1 tab(s), [...] acute abnormality Read By: Darrick Gibbs PA-C [facility] Comment on above: Result Comment: Elec [...] Document Reviewed: 11/27/2013 ExitCare? Patient Information ?2015 [employer], [employer]. This information is not intended to replace advice given to you by your health care provider. Make sure you discuss any questions you have with your health care provider. Normal [facility] ED Patient Summaryon 020 ED Patient Summary [place] [id number] Patient Discharge Instructions Person Information Name: REY BAXTER Age: 39 Years Arrival Date: 03/30/2020 11:37:37 Discharge Diagnosis: Lumbar strain Primary Care Physician: Irena Gardner MD Provider Information Primary Provider: Shaun Tomlinson DO Advanced Enterer:Darrick Gibbs PA-C The exam and treatment you received in the Emergency Department were for an urgent problem and are not intended as complete care. It is important that you follow up with a doctor, nurse practitioner, or physician?s engineering inspection assistant for ongoing care. If your symptoms [...] Follow-up Instructions: With: Address: When: Irena Turnermohinder [address] [place] [address], [facility] [place] [phone] [facility] () In 3 days 04/02/2020 In the event that this physician does not participate in your insurance network, please consult with your insurance company to find a nearby participating provider. Patient Education Materials: Lumbosacral Strain A MESSAGE TO ALL PATIENTS REGARDING OPIOIDS PRESCRIPTION OPIOIDS: WHAT YOU NEED TO KNOW Prescription opioids can be used to help relieve kazodkah-rh-lczxjv pain and are often prescribed following a [...] be struggling with addiction, tell your health managed care provider and ask for guidance or call SAM[employer]SA?S National Helpline at 9-674-793-RHXW. v Source: [place] Department of Health and Human Services/Center for Disease Control & Prevention [facility] Medications Given: Medication Dose Route orphenadrine 60.00 mg IntraMuscular Left Gluteus Medius acetaminophen-oxycod one 1.00 tab(s) Oral Medication Information: New Medications Printed Prescriptions acetaminophen-hydroc odone (Dellrose 325 mg-5 mg oral tablet) 1 Tablets [...] Comment: Pharmacy Information: Thank you for choosing [facility] Patient Education Materials: Lumbosacral Strain Lumbosacral [...] Document Reviewed: 11/27/2013 ExitCare? Patient Information ?2015 [employer]. This information is not intended to replace advice given to you by your health care provider. Make sure you discuss any questions you have with your health care provider. JULIANNE Mitchell BRIAN S , have received the following patient education materials/instructio ns and have verbalized understanding: Patient Education Materials: Lumbosacral Strain Follow-up Instructions: With: Address: When: Irena Gardner [facility], [place] [address] Business (1) In 3 days 04/02/2020 Patient Signature Date Clinician/Nurse Signature Date 03/30/2020 14:06:00 [facility] Prescriptions/Work Noteson 1 05-31-2019 Prescriptions/Work Notes [id number] 2#1.00CD:127 [facility] XR Spine Lumbosacral 2 or 3 [...] Mullen M.D. Transcribed by: caleb Technologist: MIGUEL [facility] Vital Signs Date Time Vital Sign Value Performing Clinician Myra chisholm 08-02-2023 15:48-0400 Body height 177.8 cm Ji Fajardo MD Work Phone: [facility] 08-02-2023 15:48-0400 Body weight 72.45 kg Ji Fajardo MD Work Phone: [facility] 08-02-2023 15:48-0400 Diastolic blood pressure 74 mm[Hg] Ji Fajardo MD Work Phone: [facility] 08-02-2023 15:48-0400 Heart rate 74 /min Ji Fajardo MD Work Phone: [facility] 08-02-2023 15:48-0400 Respiratory rate 18 /min Ji Fajardo MD Work Phone: [facility] 08-02-2023 15:48-0400 SaO2% (BldA) [Mass fraction] 98 % Ji Fajardo MD Work Phone: [facility] 08-02-2023 15:48-0400 Systolic blood pressure 115 mm[Hg] Ji Fajardo MD Work Phone: [facility] Encounters Encounter Date Encounter Type Care Provider Facility Start: 08-10-2023 End: 08-10-2023 ambulatory JI FAJARDO Facility:[facility] Start: 08-10-2023 End: 08-10-2023 ambulatory Jean Av PT Work Phone: Physical Therapy Comment on above: Dizziness Start: 08-08-2023 End: 08-08-2023 ambulatory [facility] Start: 08-04-2023 Telephone encounter Ji Magdaleno Neurology [facility] Comment on above: Workers comp Start: 08-03-2023 End: 08-03-2023 ambulatory JI FAJARDO Facility:[facility] Start: 08-02-2023 End: 08-02-2023 ambulatory [facility] Facility:[facility] Start: 08-02-2023 End: 08-02-2023 Office outpatient new 45 minutes Ji Fajardo MD Work Phone: Neurology Headache [facility] Comment on above: Worsening headaches (Primary Dx); Dizziness; Toxic effect of lead, accidental or unintentional, initial encounter Start: 08-02-2023 Telephone encounter Ji Magdaleno Neurology [facility] Start: 08-01-2023 ambulatory Digna Chavez RN [facility] Start: 08-01-2023 Patient encounter procedure Digna Chavez RN NURSE [facility] Comment on above: Referral Request Start: 06-21-2023 End: 06-21-2023 ambulatory OLLIE NAVASMAYTE [facility] Start: 06-20-2023 End: 06-20-2023 ambulatory INDU JOSE MPEDRONATALYA [facility] Start: 06-02-2023 End: 06-03-2023 ambulatory JOHN MEEKS [facility] Start: 06-01-2023 End: 06-03-2023 Emergency department patient visit MAINE FERGUSON [facility] Start: 06-01-2023 End: 06-02-2023 ambulatory IRENA GARDNER [facility] Start: 09-01-2022 End: 09-02-2022 ambulatory [...] above: Performed By: #### L EADA #### [facility] [address] [place] [address] Dr. Rachel Cortez Plan of Treatment Date Care Activity Detail Author Start: 06-02-2026 Diabetes Screening Diabetes Screenin g [facility] Start: 12-24-2023 Influenza vaccination Influenz a Vaccine (Season Ended) [facility] Start: 11-08-2023 End: 11-08-2023 Patient encounter procedure 11/08/2023 11:00 AM EDT Office Visit Neurology [address] [place] [address] Gina Dooley, PILO.CHIEF COMMUNICATIONS OFFICER [address] [place] [address] Neurology Start: 07-29-2023 Diabetes Screening Diabetes Screenin g [facility] Start: 07-29-2023 Screening for malign ant neoplasm of colon [facility] Start: 04-24-2023 Behavioral Health Screening Behavioral Health Screening [facility] Start: 12-23-2022 Covid-19 Vaccine ( season) Covid-19 Vaccine ( season) [facility] Start: 2013 Lipid panel Lipid Screening [facility] Start: 1997 Hepatitis B Vaccine (1 of 3 - 19+ 3-dose series) Hepatitis B Vaccine (1 of 3 - 19+ 3-dose series) [facility] Start: 1997 Urine microalbumin profile DTa P,Tdap,Td Vaccine (1 - Tdap) [facility] Start: 1996 Hepatitis C screening [facility] Start: 1996 HIV screening HIV Screening [facility] Payers Date Payer Category Payer Unknown [id number] 2022 Unknown [id number] 1978 Unknown [id number] 2.16.84 [id number] 1978 Unknown [id number] 2.16.84 [id number] 1978 Unknown [id number] .16.84 [id number] 1978 Unknown [id number] 2.16.84 [id number] 1978 Unknown [id number] 2.16.84 [id number] 1978 Unknown [id number] 2.16.84 [id number] 1978 Unknown [id number] 2.16.8 [id number] 1978 Unknown [id number] 2.16.8 [id number] 1978 Unknown [id number] 2.16.8 [id number] 1959 Unknown [id number] Social History Date Type Detail Facility Tobacco smoking stat [facility] Tobacco smoking consumption unknown [facility] Start: 1980 Sex Assigned At Not on file [facility] Start: 08-02-2023 Gender identity Not on file [facility] Start: 08-02-20[address] Tobacco smoking stat [facility] Never smoked tobacco [facility] Start: 08-02-2023 Tobacco use and exposure Smokeless t obacco non-user [facility] Start: 08-02-2023 History of Social function [facility] National Score (1-10 0), lower number is lower risk 73 [facility] Clinical Notes 06-20-2023 to 08-10-2023 Jean Valencia, ONIEL - 08/10/2023 10:06 AM Jean Crump PT - 08/10/2023 9:30 AM EDTTZander Lozada MA - 08/04/2023 9:08 AM Ji Kauffman MD - 08/02/2023 4:10 PM EDT Note Date & Type Note Facility 08-10-2023 Note HNO ID: [id number] Author: JEAN VALENCIA PT Service: ? Author [...] Planned: (4) Planned Treatment Interventions: Neuromuscular re-education (50641), Manual therapy (02677), Therapeutic activities (23056), Self-skilled nursing management (46897), Therapeutic exercise (77382), Patient/Family/Caregiver Education PLAN FOR NEXT VISIT: Patient [...] WITH LEVEL OF FUNCTION: Positional Testing Left Damar-Hallpike: Asymptomatic Right Nylen Barany: Asymptomatic Supine Head [...] and vertical head (more content not included)... [facility] 08-10-2023 History of Present illness Narrative Program_ID:[id number] Access Code: [email or web address] URL: [email or web address] Date: 08-10-2023 Prepared By: Jean Valencia Program [...] Planned: (4) Planned Treatment Interventions: Neuromuscular re-education (72887), Manual therapy (31159), Therapeutic activities (13730), Self-skilled nursing management (75680), Therapeutic exercise (09001), Patient/Family/Caregiver Education PLAN FOR NEXT VISIT: Patient [...] WITH LEVEL OF FUNCTION: Positional Testing Left Damar-Hallpike: Asymptomatic Right Nylen Barany: Asymptomatic Supine Head [...] States/Identifies, Return Demonstration TREATMENT: PT Treatment Interventions: Self-Custodial Management, Manual Therapy, Neuromuscular Re-Education Evaluation Therapeutic [...] Jean Valencia PT documented in this encounter [facility] 08-08-2023 Note [place] Electrophysiology Consult Note Reason for visit: afib, chest pain , palpitations HPI: Rey Baxter is a 43 y.o. year old with past medical history of Lumbar radiculopathy, GERD, HERIBERTO, fatigue, paroxysmal A-fib,, lead toxicity. Patient was referred to our clinic for A-fib he was seen recently at [facility] and was found to be in A-fib [...] his lead toxicity Patient [facility] but it seems as though no one [...] no gallop Systo (more content not included)... [facility] 08-04-2023 Miscellaneous Notes Patient records received via electronic fax. Uploaded to [employer] via [employer]. Please review in scanned documents tab of chart review. Zander Denson MA documented in this encounter [facility] 08-03-2023 Note HNO ID: [id number] Author: MATHTEW BANERJEE, CT Service: ? 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 EXAM: MRI - CONTRAST TYPE: GROUP II PERIPHERAL IV DATA: Ambulatory: A peripheral IV was started in the Left antecubital site with a Angio cath: 24 gauge. RADIOLOGY DEPARTMENT: SONALI Exam(s) Completed: Head: Routine Brain SIGNATURE: Matthew Banerjee, CT PATIENT NAME: Rey Baxter DATE: August 03, 2023 TIME: 3:06 PM [facility] 08-02-2023 Note HNO ID: [id number] Author: JI FAJARDO MD Service: ? 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 Lead is not being chelated at [...] access for admini (more content not included)... 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 Lead is not being chelated at [...] worsening headaches. Pt needs MRI-Brain to r/o CELL TESTER changes from heavy metal toxicity. Pt can trial nortriptyline 10 mg po qhs in the interim for symptomatic relief. Return 3 months or sooner if needed. Ji Fajardo MD August 04, 2023 2:09 PM documented in this encounter [facility] 08-01-2023 Miscellaneous Notes Patient calling with request for physician referral: Patient referred to Neurology Department. . Patient denies any new or worsening symptoms of which a provider is not aware: Yes. Ac took call back over for scheduling. documented in this encounter [facility] 06-21-2023 Note [place] Electrophysiology Consult Note Reason for visit: afib, chest pain , palpitations, new pt HPI: Rey Baxter is a 42 y.o. year old with past medical history of Lumbar radiculopathy, GERD, HERIBERTO, fatigue, paroxysmal A-fib,, lead toxicity. Patient was referred to our clinic for A-fib he was seen recently at [facility] and was found to be in A-fib [...] his lead toxicity Patient was [facility] but it seems as though no one [...] no rhonchi C (more content not included)... [facility] 06-21-2023 Note TC to DITCHER OPERATOR internal re ferral for: T56.0X1S (ICD-10-CM) - Toxic effect of lead, accidental or unintentional, sequela PT states he will call back to schedule. Clinic number provided. shamir [facility] 06-20-2023 Note This software writer was cons ulted by Dr. Vogt to assist patient with workers comp claim and resources for lead poisoning. This software writer met with patient following his visit with Dr. Vogt and provided him the [facility] [place] of Workers' Compensation contact. This software writer informed patient resources on lead poisoning will be researched as this software writer does not currently have information. The patient stated Dr. Vogt provided him with poison control's contact and he plans to call them. This software writer will research additional resources. [facility] 06-20-2023 Note HEMATOLOGY ONCOLOGY CONSULT NOTE Reason for consult: Chief Complaint: History of present illness: The patient is a 42 y.o. male with PMHx of that presented with lead poisoning. Company makes plaques . Patient melts of the same and 06/01/2023 Lead,Blood,Venipuncture Order: [id number] Component Ref Range & Units 2 wk ago Lead <3.5 mcg/dL 33.8 High Comment: NOTE Patient had lead testing at [facility] and was 43 Upon evaluation, No results found for: WBC , HGB , HCT , MCV , PLT Order: [id number] Component Ref Range & Units 2 wk [...] 0.0 - 0.2 X10E9/L 0.1 Resulting Agency [facility] Specimen Collected: 06/01/23 15:10 Performed by: [employer] Last Resulted: 06/01/23 15:22 Received From: [employer] Result Received: 06/20/23 13:09 View Encounter Received Information Result Report CBC auto differential (Order #[id number]) on 06/01/23 Lab Component SmartPhrase Guide CBC auto differential (Order #[id number]) on 06/01/23 Additional PMHx includes afib passed out work and was admitted in [place] and has been on eliquis since jun 02 by cardiology Hematologic / Oncologic hx: - Family hx of malignancy/blood disorder: none - Primary Student Affairs Dean/Oncologist:none - Established diagnoses: Lead poisoning will be [...] list: Patient Active Problem List Diagnosis A-fib ([facility]/HCC) Bigeminy Assessment and Plan: 1. Toxic effect [...] Screening for col (more content not included)... [facility] Evaluation note Diagnosis Worsening headaches- Primary Headache Dizziness Dizziness and giddiness Toxic effect of lead, accidental or unintentional, initial encounter documented in this encounter [facility] Diagnosis Dizziness Dizziness and giddiness documented in this encounter [facility] Summary Purpose Family History No Family History [...] headaches Procedures PROVIDER ORDERED FOLLOW UP OFFICE/OUTPATIENT NEW HIGH MDM 60 MINUTES Ji Fajardo [place] [id number] [place] [address] Referral ID Status Reason Start Date Expiration Date Visits Requested Visits Authorized [id number] Pending Review PCP Requested Referral 11/01/2023 08/01/2024 1 1 Specialty Diagnoses / Procedures Referred By Contac t Referred To Contact [facility] Diagnoses Dizziness Procedures CONSULT TO PHYSICAL THERAPY PHYSICAL THERAPY EVALUATION HIGH COMPLEX 45 MINS Ji Fajardo MD [address] [place], [place] [id number] [facility] [place] [address] [place] [address] Referral ID Status Reason Start Date Expiration Date Visits Requested Visits Authorized [id number] Pending Review Auto-Generat ed Referral 08/02/2023 08/01/2024 1 1 Specialty Diagnoses / Procedures Referred By Contac t Referred To Contact [facility] IMAGING Diagnoses Worsening headaches Procedures MRI BRAIN WO/W IVCON MRI BRAIN BRAIN STEM W/O W/CONTRAST MATERIAL Ji Fajardo MD [address] [place] [id number] [facility] [place] [address] Referral ID Status Reason Start Date Expiration Date V isits Requested Visits Authorized [id number] Closed Auto-Generate d Referral 08/02/2023 08/31/2024 1 1 Additional Source Comments (unrecognized sect ion and content) No Status Records FoundNo Status Records FoundNo Status Records FoundNo Status Records FoundNo Status Records Found INFORMATION SOURCE (unrecogn ized section and content) DATE CREATED AUTHOR 03/31/2020 [facility]rey [facility] DATE CREATED AUTHOR AUTHOR'S ORGANIZ ATION 09/05/2022 [facility] DATE CREATED AUTHOR AUTHOR'S ORGANIZ ATION 06/05/[address] [facility] DATE CREATED AUTHOR AUTHOR'S ORGANIZ ATION 08/09/2023 [facility] DATE CREATED AUTHOR AUTHOR'S ORGANIZ ATION 08/14/2023 [facility] Source Comments (unrecognize d section and content) In the event this informatio n is protected by the Federal Confidentiality of Alcohol and Drug Abuse Patient Records regulations: The Federal rules restrict any use of the information to criminally investigate or prosecute any alcohol or drug abuse patient.[facility] the event this information is protected by the Federal Confidentiality of Alcohol and Drug Abuse Patient Records regulations: The Federal rules restrict any use of the information to criminally investigate or prosecute any alcohol or drug abuse patient.[facility] the event this information is protected by the Federal Confidentiality of Alcohol and Drug Abuse Patient Records regulations: The Federal rules restrict any use of the information to criminally investigate or prosecute any alcohol or drug abuse patient.[facility] the event this information is protected by the Federal Confidentiality of Alcohol and Drug Abuse Patient Records regulations: The Federal rules restrict any use of the information to criminally investigate or prosecute any alcohol or drug abuse patient.[facility] the event this information is protected by the Federal Confidentiality of Alcohol and Drug Abuse Patient Records regulations: The Federal rules restrict any use of the information to criminally investigate or prosecute any alcohol or drug abuse patient.[facility] Reason for Visit (unrecogniz ed section and content) Reason Comments Referral Request Reason Comments Workers comp Reason Comments New Patient Headaches Specialty Diagnoses / Procedures Referred By Aide lopez Referred To Contact Neurology / HEADACHE Diagnoses Intake Simon / [address], Numbness/tingling, Dizziness, Confusion. Procedures NEW NEUR HEADACHE Ashley Foster, CHIEF COMMUNICATIONS OFFICER [address] [place] [address] [place] [address] [place] [address] Referral ID Status Reason Start Date Expiration Date V isits Requested Visits Authorized [id number] Authorized 07/10/2023 01/10/2024 2 2 Reason Comments PT Eval Specialty Diagnoses / Procedures Referred By Aide t Referred To Contact [facility] Diagnoses Dizziness Procedures CONSULT TO PHYSICAL THERAPY PHYSICAL THERAPY EVALUATION HIGH COMPLEX [address] [place] [address] [place] [address] [facility] [place] [facility] [address] [place] [address] Referral ID Status Reason Start Date Expiration Date Visits Requested Visits Authorized [id number] Pending Review Auto-Generat ed Referral 08/02/2023 08/01/2024 1 1 Care Teams (unrecognized sec tion and content) Hoop Machine Operator Relationship Specialty Start Date End Date Ollie Pitt [address] [place] [facility] [address] 06/26/23 Ashley Foster CNP [address] [place] [facility] [address] Referring Family Medicine 07/26/23 Hoop Machine Operator Relationship Specialty Start Date End Date Ollie Pitt [address] [place] [facility] [address] 06/26/23 Ashley Foster CNP [address] [place] [facility] [address] Referring Family Medicine 07/26/23 Hoop Machine Operator Relationship Specialty Start Date End Date Ollie Pitt [address] [place] [facility] [address] 06/26/23 Ashley Foster CNP [address] [place] [facility] [address] Referring Family Medicine 07/26/23 Hoop Machine Operator Relationship Specialty Start Date End Date Ollie Pitt [address] [place] [facility] [address] 06/26/23 Ashley Foster CNP [address] [place] [facility] [address] Referring Family Medicine 07/26/23 Hoop Machine Operator Relationship Specialty Start Date End Date Ollie Pitt [address] [place] [id number] 06/26/23 Ashley Foster CNP [address] [place], [place] [id number] Referring Family Medicine 07/26/23 FOR RECORDS PERTAINING [...] BE BASED ON THE PRIMARY CLINICAL RECORDS. [employer] [facility]. provides no warranty or guarantee of the accuracy or completeness of information in this document.
== END 2023-10-18 13:31 | disposition home or self-care (01) ==
LOC: LAB 13:31
PROVIDERS: PCP Family Medicine; Visit Provider Family Medicine
DX: R78.71 Abnormal lead level in blood (principal)
CPT/HCPCS: 36415; 83655

== ENCOUNTER 2023-12-15 10:00 | Outpatient (OUT) | payer OTHER, SELFPAY ==
--- NOTE | 2023-12-15 10:05 | US_ITS ---
The [address] [address] Patient Name: YAMILET WHITAKER MRN: [id number] date: 1980 Sex: M Assigned Patient Location: US Current Patient Location: LAB Accession/Order Number: [id number] Exam Date: 12/15/2023 10:09 Report Date: 12/15/2023 12:31 At the request of: IRENA JEFFERY Procedure: US right upper quadrant EXAM: US right upper quadrant HISTORY: GERD COMPARISON: None. TECHNIQUE: Grayscale, color and Doppler FINDINGS: The liver is normal in size, contour and echotexture. No focal mass. Hepatopedal flow in the main portal vein with a velocity of 25 cm/s. The pancreas is normal in appearance The gallbladder is normal. The wall measures 1.5 mm. Negative sonographic Anaya sign. The common bile duct measures 4.8 mm. The right kidney is normal measuring 10.3 x 4.7 x 5.2 cm. 3 mm echogenic foci, nonobstructing nephrolithiasis US/US right upper quadrant IMPRESSION: No acute abnormality Electronically authenticated by: GEOFF ARCE Date: 12/15/2023 12:31
--- OUTSIDE RECORDS SUMMARY | 2023-12-15 10:22 | XMS_ITS | CCD ---
Author Organization [facility] Care Team Providers Care Hangar Attendant Name Role Phone LATIA ., DR OSBORN [...] Ollie Pitt Unavailable Ashley Foster CNP Unavailable [phone] INDU VOGT Attending Unavailable OLLIE PITT [...] Range Facility CNTHERAPY 08-10-2023 CNTHERAPY OT/PT/Speech Visit ([facility]) REY BAXTER ([id number]) 1980 M Date Time Provider Department 08/10/23 9:30 AM JEAN VALENCIA [facility] Date Time Provider Department Center 08/10/2023 9:30 AM [id number]-MVRUCBEJEAN VALENCIA [facility] Reason for Visit: PT Eval [747] Visit [...] 1 capsule by mouth daily at bedtime. 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 Author Type: Physical Therapist Type: Therapy (PT/OT/Speech/Resp) Filed: 08/10/2023 10:06 Note Text: Program_ID:[id number] Access Code: [email or web address] URL: [email or web address] Date: 08-10-2023 Prepared By: Jean Valencia Program [...] - 3 sets - 10 reps Normal [facility] Office Visiton 08-08-2023 Follow-up visit [id number] Rey Baxter 1980 M Date Provider Department Center 08/08/2023 [facility]-LUIS ALBERTO DOWLING [facility] Sandra [facility] Family History Problem Relation Age of Onset Lupus Mother Muscular dystrophy Mother Diabetes Other Family Status - Relation Status Age at Mother Other Level of Service:46641 [place] OFFICE/OUTPATIENT NEW MODERATE MDM 45 MINUTES Normal [facility] Yumiko 08-04-2023 KAROLINAN Telephone (RUDY) REY BAXTER ([id number]) 1980 M Date Time Provider Department 08/04/23 JI FAJARDO During your visit today, we recorded the following information about you: Zander Denson MA 08/04/2023 9:09 AM Signed Patient records received via electronic fax. Uploaded to [employer] via [employer]. Please review in scanned documents tab of [...] WO and W contrast I Von 08-03-2023 [facility] MRI BRAIN WO/W IVCONon 08-02 MRI [...] paranasal sinus inflammatory changes. Otherwise normal study. Amphibious Operations Officer: PSCB Transcribe Date/Time: Aug 03 2023 3:53P Dictated by : LUIS ALBERTO SMITH MD This examination was interpreted and the report reviewed and electronically signed by: LUIS ALBERTO SMITH MD on Aug 03 2023 3:57PM EST [id number] Normal [facility] CNOVon 08-02-2023 CNOV Office Visit ([facility]) JULIANNEREY Mcdaniels ([id number]) 1980 M Date Time Provider Department 08/02/23 4:00 PM JI FAJARDO [facility] During your visit today, we recorded the following information about you: Pulse Respiration Blood pressure Weight 74/minute 18/minute 115/74 72.4 kg Height 1.778 m Ji Fajardo MD 08/04/2023 2:09 PM Signed [facility] NEW EVALUATION August 04, 2023 4:00 PM Pt is 43 year old male from [place], [place] who presents with headaches that appears subsequent to 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 Lead is not being chelated at [...] iv contrast (more content not included)... Normal [facility] CNPNon 08-02-2023 CNPN Telephone ([facility]) REY BAXTER ([id number]) 1980 M Date Time Provider Department 08/02/23 [...] Date: 08/02/2023 (None) Encounter Status:Closed by ZANDER DENSNO on 08/03/23 [facility] 36on 06-22-2023 36 Per Ollie Pitt [...] so stress test just needs done catia. [facility] 36 Zywie called this morning to [...] the entire left side of his body. 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 7) to keep follow up with the current lead poisoning expert 80 please reach out tp poison control [place] for direction [phone] Normal [facility] CBC AND AUTO DIFFon 06-02-19 24 ABSOLUTE BASOPHIL 0.1 X10E9/L Normal 0.0-0.2 [facility] Comment on above: Performed By: #### C BCA, CMP, 32252-7, PINR, 80270-1, 17694-6, 01742-2, 83412-3, THYR #### [facility] ([id number]) [address] [place] [address] 00121 ABSOLUTE NEUTROPHIL 3.9 X10E9/L Normal 1.5-6.6 [facility] Comment on above: Performed By: #### C BCA, CMP, 79351-2, PINR, 29877-4, 98513-0, 96494-8, 75072-6, THYR #### [facility] ([id number]) [address] [place] [address] 02914 Basophils/100 WBC (Bld) 0.8 % Normal [facility] Comment on above: Performed By: #### C BCA, CMP, 36211-0, PINR, 75446-9, 20411-3, 61826-3, 05903-3, THYR #### [facility] ([id number]) [address] [place] [address] 45068 Eosinophils (Bld) [#/Vol] 0.1 10*3/uL Normal 0.0-0.4 [facility] Comment on above: Performed By: #### C BCA, CMP, 14176-3, PINR, 15569-0, 57014-4, 30457-3, 50207-3, THYR #### [facility] ([id number]) [address] [place] [address] 11658 Eosinophils/100 WBC (Bld) 1.4 % Normal [facility] Comment on above: Performed By: #### C BCA, CMP, 70797-7, PINR, 91781-7, 94986-0, 26507-2, 73265-0, THYR #### [facility] ([id number]) [address] [place] [address] 88170 Erythrocyte distribution width (RBC) [Ratio] 13.2 % Normal 11.5-15.0 [facility] Comment on above: Performed By: #### C BCA, CMP, 91605-4, PINR, 32448-0, 67432-1, 42846-2, 26187-0, THYR #### [facility] ([id number]) [address] [place] [address] 83549 Hematocrit (Bld) [Volume fraction] 40.7 % Normal 39-49 [facility] Comment on above: Performed By: #### C BCA, CMP, 22015-9, PINR, 44727-8, 12342-0, 11029-9, 06268-3, THYR #### [facility] ([id number]) [address] [place] [address] 51240 Hemoglobin (Bld) [Mass/Vol] 14.2 g/dL Normal 13.0-17.0 [facility] Comment on above: Performed By: #### C BCA, CMP, 64226-3, PINR, 98876-7, 36607-2, 55022-4, 33841-7, THYR #### [facility] ([id number]) [address] [place] [address] 55048 Lymphocytes (Bld) [#/Vol] 2.2 10*3/uL Normal 1.0-3.5 [facility] Comment on above: Performed By: #### C BCA, CMP, 92616-9, PINR, 57981-6, 99785-0, 22517-4, 91163-2, THYR #### [facility] ([id number]) [address] [place] [address] Lymphocytes/100 WBC (Bld) 31.4 % Normal [facility] Comment on above: Performed By: #### C BCA, CMP, 72910-3, PINR, 59636-7, 55273-5, 03580-6, 71443-2, THYR #### [facility] ([id number]) [address] [place] [address] 16093 MCH (RBC) [Entitic mass] 30.7 pg Normal 27-34 [facility] Comment on above: Performed By: #### C BCA, CMP, 57191-4, PINR, 27366-6, 74418-0, 52843-6, 47801-2, THYR #### [facility] ([id number]) [address] [place] [address] 58848 MCHC (RBC) [Mass/Vol] 34.9 g/dL Normal 32-36 [facility] Comment on above: Performed By: #### C BCA, CMP, 37381-7, PINR, 23064-0, 12931-6, 13278-4, 77388-1, THYR #### [facility] ([id number]) [address] [place] [address] 90004 MCV (RBC) [Entitic vol] 88 fL Normal 80-100 [facility] Comment on above: Performed By: #### C BCA, CMP, 77121-4, PINR, 13778-5, 24008-4, 94273-5, 37754-6, THYR #### [facility] ([id number]) [address] [place] [address] 42362 Monocytes (Bld) [#/Vol] 0.7 10*3/uL Normal 0-0.9 [facility] Comment on above: Performed By: #### C BCA, CMP, 95035-6, PINR, 43640-0, 40748-5, 53598-8, 37811-5, THYR #### [facility] ([id number]) [address] [place] [address] 68546 Monocytes/100 WBC (Bld) 10.7 % Normal [facility] Comment on above: Performed By: #### C BCA, CMP, 92495-9, PINR, 42116-4, 32608-2, 23279-5, 90486-9, THYR #### [facility] ([id number]) [address] [place] [address] 33663 Neutrophils/100 WBC (Bld) 55.7 % Normal [facility] Comment on above: Performed By: #### C BCA, CMP, 93120-0, PINR, 52686-2, 43942-4, 66666-5, 37619-6, THYR #### [facility] ([id number]) [address] [place] [address] 84511 Platelet mean volume (Bld) [Entitic vol] 8.5 fL Normal 7-12 [facility] Comment on above: Performed By: #### C BCA, CMP, 51384-3, PINR, 76484-3, 38602-1, 79905-1, 52525-9, THYR #### [facility] ([id number]) [address] [place] [address] 40636 Platelets (Bld) [#/Vol] 192 10*3/uL Normal 150-450 [facility] Comment on above: Performed By: #### C BCA, CMP, 15742-7, PINR, 89617-4, 29494-9, 58900-0, 16983-2, THYR #### [facility] ([id number]) [address] [place] [address] 98129 RBC COUNT 4.61 X10E12/L Normal 4.10-5.70 [facility] Comment on above: Performed By: #### C BCA, CMP, 25335-6, PINR, 07137-4, 51834-3, 50695-9, 09501-3, THYR #### [facility] ([id number]) [address] [place] [address] 46571 WBC (Bld) [#/Vol] 7.0 10*3/uL Normal 4.0-11.0 [facility] Comment on above: Performed By: #### C BCA, CMP, 59272-3, PINR, 77240-7, 67227-6, 40129-6, 44614-5, THYR #### [facility] ([id number]) [address] [place] [address] 19830 COMPREHENSIVE METABOLIC PANE Nik 06-02-2023 Albumin [Mass/Vol] 4.2 g/dL Normal 3.2-5.3 [facility] Comment on above: Performed By: #### C BCA, CMP, 89242-7, PINR, 94013-3, 01616-9, 54030-0, 61306-9, THYR #### [facility] ([id number]) [address] [place] [address] 20148 ALP [Catalytic activity/Vol] 84 U/L Normal 39-130 [facility] Comment on above: Performed By: #### C BCA, CMP, 66043-1, PINR, 60454-9, 06936-2, 70830-0, 52988-4, THYR #### [facility] ([id number]) [address] [place] [address] 85202 ALT [Catalytic activity/Vol] 27 U/L Normal 0-40 [facility] Comment on above: Performed By: #### C BCA, CMP, 31386-5, PINR, 59689-5, 03085-0, 87421-7, 19261-5, THYR #### [facility] ([id number]) [address] [place] [address] 42643 Anion gap [Moles/Vol] 8 mmol/L Normal 5-15 [facility] Comment on above: Performed By: #### C BCA, CMP, 99113-4, PINR, 47663-0, 48788-4, 80846-3, 51900-8, THYR #### [facility] ([id number]) [address] [place] [address] 76829 AST [Catalytic activity/Vol] 22 U/L Normal 0-41 [facility] Comment on above: Performed By: #### C BCA, CMP, 81644-1, PINR, 83790-8, 43873-1, 37163-8, 11816-8, THYR #### [facility] ([id number]) [address] [place] [address] 75755 Bilirubin [Mass/Vol] 0.8 mg/dL Normal 0.3-1.2 [facility] Comment on above: Performed By: #### C BCA, CMP, 80083-7, PINR, 14970-1, 33782-4, 89582-8, 82269-9, THYR #### [facility] ([id number]) [address] [place] [address] 44809 Calcium [Mass/Vol] 10.0 mg/dL Normal 8.5-10.5 [facility] Comment on above: Performed By: #### C BCA, CMP, 39042-1, PINR, 88661-0, 63768-5, 95232-3, 12371-3, THYR #### [facility] ([id number]) [address] [place] [address] 30584 Chloride [Moles/Vol] 102 mmol/L Normal 98-109 [facility] Comment on above: Performed By: #### C BCA, CMP, 90747-3, PINR, 82446-1, 03637-1, 29337-7, 88542-5, THYR #### [facility] ([id number]) [address] [place] [address] 66610 CO2 [Moles/Vol] 26 mmol/L Normal 22-32 [facility] Comment on above: Performed By: #### C BCA, CMP, 67078-9, PINR, 91558-0, 66585-6, 07903-6, 89277-9, THYR #### [facility] ([id number]) [address] [place] [address] 94767 Creatinine [Mass/Vol] 1.07 mg/dL Normal 0.70-1.20 [facility] Comment on above: Result Comment: METH OD TRACEABLE TO IDMS STANDARD Performed By: #### C BCA, CMP, 28512-3, PINR, 81824-2, 25840-9, 96343-3, 29355-4, THYR #### [facility] ([id number]) [address] [place] [address] 00978 GFR/1.73 sq M.predicted among non-blacks MDRD (S/P/Bld) [Vol rate/Area] 88 mL/min/{1.73_m2} Normal >59 [facility] Comment on above: Result Comment: Reported eGFR is based on the CKD-EPI 2020 equation that does not use a race coefficient. Performed By: #### C BCA, CMP, 89991-4, PINR, 21483-4, 66265-1, 18478-8, 05612-4, THYR #### [facility] ([id number]) [address] [place] [address] 69688 Glucose [Mass/Vol] 94 mg/dL Normal 65-99 [facility] Comment on above: Performed By: #### C BCA, CMP, 81017-9, PINR, 03799-8, 73488-6, 76227-6, 17870-0, THYR #### [facility] ([id number]) [address] [place] [address] 06250 Potassium [Moles/Vol] 4.0 mmol/L Normal 3.5-5.0 [facility] Comment on above: Performed By: #### C BCA, CMP, 45665-7, PINR, 67869-4, 65939-2, 74086-0, 87055-3, THYR #### [facility] ([id number]) [address] [place] [address] 08331 Protein [Mass/Vol] 7.0 g/dL Normal 6.0-8.0 [facility] Comment on above: Performed By: #### C BCA, CMP, 77267-5, PINR, 24701-3, 42349-2, 73066-3, 74313-5, THYR #### [facility] ([id number]) [address] [place] [address] 77950 Sodium [Moles/Vol] 136 mmol/L Normal 134-146 [facility] Comment on above: Performed By: #### C BCA, CMP, 81777-2, PINR, 81246-1, 54635-0, 28680-3, 71387-2, THYR #### [facility] ([id number]) [address] [place] [address] 28654 Urea nitrogen [Mass/Vol] 20 mg/dL Normal 5-23 [facility] Comment on above: Performed By: #### C BCA, CMP, 82043-1, PINR, 74441-6, 20514-3, 61586-9, 97457-1, THYR #### [facility] ([id number]) [address] [place] [address] 99846 MAGNESIUMon 06-02-2023 Magnesium [Mass/Vol] 2.1 mg/dL Normal 1.8-2.6 [facility] Comment on above: Performed By: #### C BCA, CMP, 23597-2, PINR, 02619-3, 93368-6, 27671-9, 59264-8, THYR #### [facility] ([id number]) [address] [place] [address] 11064 TROPONIN Ion 06-02-2023 Troponin I.cardiac [Mass/Vol] ng/mL Normal 0.00-0.04 [facility] Comment on above: Performed By: #### C BCA, CMP, 95118-0, PINR, 26473-5, 76059-8, 99132-2, 65476-3, THYR #### [facility] ([id number]) [address] [place] [address] 15661 CBC AND AUTO DIFFon 06-01-19 24 ABSOLUTE BASOPHIL 0.1 X10E9/L Normal 0.0-0.2 [facility] Comment on above: Performed By: #### C BCA, CMP, 17362-1, PINR, 62611-3, 56349-9, 28789-1, 54228-0, THYR #### [facility] ([id number]) [address] [place] [address] 03329 ABSOLUTE NEUTROPHIL 5.1 X10E9/L Normal 1.5-6.6 [facility] Comment on above: Performed By: #### C BCA, CMP, 37855-0, PINR, 34763-9, 33800-5, 29898-2, 78042-1, THYR #### [facility] ([id number]) [address] [place] [address] [place] [address] Basophils/100 WBC (Bld) 0.8 % Normal [facility] Comment on above: Performed By: #### C BCA, CMP, 15334-9, PINR, 31864-9, 00702-6, 17102-2, 17369-0, THYR #### [facility] ([id number]) [address] [place] [address] 27726 Eosinophils (Bld) [#/Vol] 0.1 10*3/uL Normal 0.0-0.4 [facility] Comment on above: Performed By: #### C BCA, CMP, 01732-4, PINR, 72955-2, 92218-0, 88297-7, 16223-3, THYR #### [facility] ([id number]) [address] [place] [address] 40222 Eosinophils/100 WBC (Bld) 1.1 % Normal [facility] Comment on above: Performed By: #### C BCA, CMP, 83487-5, PINR, 50273-7, 82532-7, 78415-5, 45805-7, THYR #### [facility] ([id number]) [address] [place] [address] 60680 Erythrocyte distribution width (RBC) [Ratio] 13.0 % Normal 11.5-15.0 [facility] Comment on above: Performed By: #### C BCA, CMP, 63533-7, PINR, 29169-4, 24211-2, 93547-2, 09585-9, THYR #### [facility] ([id number]) [address] [place] [address] 81490 Hematocrit (Bld) [Volume fraction] 41.5 % Normal 39-49 [facility] Comment on above: Performed By: #### C BCA, CMP, 38526-2, PINR, 31707-2, 91467-4, 31637-2, 11431-4, THYR #### [facility] ([id number]) [address] [place] [address] 58814 Hemoglobin (Bld) [Mass/Vol] 14.6 g/dL Normal 13.0-17.0 [facility] Comment on above: Performed By: #### C BCA, CMP, 34566-7, PINR, 72349-3, 86775-0, 61103-3, 59010-2, THYR #### [facility] ([id number]) [address] [place] [address] 54361 Lymphocytes (Bld) [#/Vol] 1.7 10*3/uL Normal 1.0-3.5 [facility] Comment on above: Performed By: #### C BCA, CMP, 46898-8, PINR, 74773-2, 38820-2, 51866-1, 79587-2, THYR #### [facility] ([id number]) [address] [place] [address] 74032 Lymphocytes/100 WBC (Bld) 22.2 % Normal [facility] Comment on above: Performed By: #### C BCA, CMP, 19694-2, PINR, 27802-4, 38777-5, 53534-7, 96007-4, THYR #### [facility] ([id number]) [address] [place] [address] 96640 MCH (RBC) [Entitic mass] 30.4 pg Normal 27-34 [facility] Comment on above: Performed By: #### C BCA, CMP, 06329-7, PINR, 74323-9, 31800-0, 65534-3, 42406-4, THYR #### [facility] ([id number]) [address] [place] [address] 22213 MCHC (RBC) [Mass/Vol] 35.1 g/dL Normal 32-36 [facility] Comment on above: Performed By: #### C BCA, CMP, 53365-7, PINR, 93370-0, 05515-2, 01738-6, 13588-3, THYR #### [facility] ([id number]) [address] [place] [address] 68100 MCV (RBC) [Entitic vol] 87 fL Normal 80-100 [facility] Comment on above: Performed By: #### C BCA, CMP, 56027-1, PINR, 19218-4, 50095-0, 95036-6, 32349-0, THYR #### [facility] ([id number]) [address] [place] [address] 12793 Monocytes (Bld) [#/Vol] 0.6 10*3/uL Normal 0-0.9 [facility] Comment on above: Performed By: #### C BCA, CMP, 15353-8, PINR, 52668-1, 19474-2, 63344-1, 32762-1, THYR #### [facility] ([id number]) [address] [place] [address] 14089 Monocytes/100 WBC (Bld) 7.8 % Normal [facility] Comment on above: Performed By: #### C BCA, CMP, 02778-6, PINR, 04332-4, 22237-2, 47267-7, 41140-3, THYR #### [facility] ([id number]) [address] [place] [address] 68730 Neutrophils/100 WBC (Bld) 68.1 % Normal [facility] Comment on above: Performed By: #### C BCA, CMP, 31732-5, PINR, 09187-3, 15210-2, 28192-0, 66001-1, THYR #### [facility] ([id number]) [address] [place] [address] 93997 Platelet mean volume (Bld) [Entitic vol] 8.3 fL Normal 7-12 [facility] Comment on above: Performed By: #### C BCA, CMP, 22784-0, PINR, 59053-2, 71051-4, 52336-5, 18149-9, THYR #### [facility] ([id number]) [address] [place] [address] 20947 Platelets (Bld) [#/Vol] 207 10*3/uL Normal 150-450 [facility] Comment on above: Performed By: #### C BCA, CMP, 39622-7, PINR, 95863-6, 84302-0, 50425-2, 81470-4, THYR #### [facility] ([id number]) [address] [place] [address] 41105 RBC COUNT 4.79 X10E12/L Normal 4.10-5.70 [facility] Comment on above: Performed By: #### C BCA, CMP, 48616-4, PINR, 09799-7, 48540-2, 95035-1, 74246-0, THYR #### [facility] ([id number]) [address] [place] [address] 44995 WBC (Bld) [#/Vol] 7.5 10*3/uL Normal 4.0-11.0 [facility] Comment on above: Performed By: #### C BCA, CMP, 76634-5, PINR, 78725-7, 56528-6, 67038-7, 64737-3, THYR #### [facility] ([id number]) [address] [place] [address] 49879 COMPREHENSIVE METABOLIC PANE Nik 06-01-2023 Albumin [Mass/Vol] 5.0 g/dL Normal 3.2-5.3 [facility] Comment on above: Performed By: #### C BCA, CMP, 51602-5, PINR, 75282-3, 46941-6, 21858-1, 85686-5, THYR #### [facility] ([id number]) [address] [place] [address] 62436 ALP [Catalytic activity/Vol] 90 U/L Normal 39-130 [facility] Comment on above: Performed By: #### C BCA, CMP, 68850-7, PINR, 37448-9, 21475-9, 66081-4, 22509-4, THYR #### [facility] ([id number]) [address] [place] [address] 54755 ALT [Catalytic activity/Vol] 32 U/L Normal 0-40 [facility] Comment on above: Performed By: #### C BCA, CMP, 21120-9, PINR, 44444-7, 44917-5, 99407-8, 05026-2, THYR #### [facility] ([id number]) [address] [place] [address] 16714 Anion gap [Moles/Vol] 7 mmol/L Normal 5-15 [facility] Comment on above: Performed By: #### C BCA, CMP, 34923-0, PINR, 60353-9, 92840-5, 35231-0, 29766-8, THYR #### [facility] ([id number]) [address] [place] [address] 60360 AST [Catalytic activity/Vol] 27 U/L Normal 0-41 [facility] Comment on above: Performed By: #### C BCA, CMP, 02368-7, PINR, 05667-2, 86000-9, 10260-1, 92402-3, THYR #### [facility] ([id number]) [address] [place] [address] 70415 Bilirubin [Mass/Vol] 0.8 mg/dL Normal 0.3-1.2 [facility] Comment on above: Performed By: #### C BCA, CMP, 85595-9, PINR, 88538-6, 90198-5, 91481-8, 46738-5, THYR #### [facility] ([id number]) [address] [place] [address] 05081 Calcium [Mass/Vol] 10.1 mg/dL Normal 8.5-10.5 [facility] Comment on above: Performed By: #### C BCA, CMP, 21351-4, PINR, 46634-9, 83415-6, 76902-3, 16072-0, THYR #### [facility] ([id number]) [address] [place] [address] 63533 Chloride [Moles/Vol] 103 mmol/L Normal 98-109 [facility] Comment on above: Performed By: #### C BCA, CMP, 66454-1, PINR, 75307-4, 47566-8, 77642-3, 81882-5, THYR #### [facility] ([id number]) [address] [place] [address] 09768 CO2 [Moles/Vol] 24 mmol/L Normal 22-32 [facility] Comment on above: Performed By: #### C BCA, CMP, 63058-0, PINR, 24613-1, 07160-8, 42855-0, 32488-1, THYR #### [facility] ([id number]) [address] [place] [address] 80774 Creatinine [Mass/Vol] 1.18 mg/dL Normal 0.70-1.20 [facility] Comment on above: Result Comment: METH OD TRACEABLE TO IDMS STANDARD Performed By: #### C BCA, CMP, 00636-2, PINR, 21515-7, 40723-9, 90482-6, 45457-1, THYR #### [facility] ([id number]) [address] [place] [address] 88181 GFR/1.73 sq M.predicted among non-blacks MDRD (S/P/Bld) [Vol rate/Area] 78 mL/min/{1.73_m2} Normal >59 [facility] Comment on above: Result Comment: Reported eGFR is based on the CKD-EPI 2020 equation that does not use a race coefficient. Performed By: #### C BCA, CMP, 05148-0, PINR, 20258-0, 19286-6, 97809-9, 80570-4, THYR #### [facility] ([id number]) [address] [place] [address] 36711 Glucose [Mass/Vol] 86 mg/dL Normal 65-99 [facility] Comment on above: Performed By: #### C BCA, CMP, 52778-2, PINR, 30577-9, 29765-2, 69726-9, 07236-4, THYR #### [facility] ([id number]) [address] [place] [address] 37896 Potassium [Moles/Vol] 3.8 mmol/L Normal 3.5-5.0 [facility] Comment on above: Performed By: #### C BCA, CMP, 67504-1, PINR, 77179-2, 90222-3, 79229-4, 52842-0, THYR #### [facility] ([id number]) [address] [place] [address] 73988 Protein [Mass/Vol] 7.8 g/dL Normal 6.0-8.0 [facility] Comment on above: Performed By: #### C BCA, CMP, 05844-0, PINR, 68450-4, 28947-1, 09325-0, 18544-7, THYR #### [facility] ([id number]) [address] [place] [address] 95529 Sodium [Moles/Vol] 134 mmol/L Normal 134-146 [facility] Comment on above: Performed By: #### C BCA, CMP, 17894-1, PINR, 03817-1, 17696-3, 36319-6, 96516-9, THYR #### [facility] ([id number]) [address] [place] [address] 75624 Urea nitrogen [Mass/Vol] 16 mg/dL Normal 5-23 [facility] Comment on above: Performed By: #### C BCA, CMP, 28968-6, PINR, 86836-4, 51969-6, 66535-2, 23777-5, THYR #### [facility] ([id number]) [address] [place] [address] 96812 DRUG SCREEN, URINEon 024 AMPHETAMINE/METHAMP Negative Normal NEG [facility] Comment on above: Result Comment: AMPH /METH screening cut off = 1000 ng/mL Performed By: #### C BCA, CMP, 28970-7, PINR, 57885-8, 69260-9, 08368-5, 29125-0, THYR #### [facility] ([id number]) [address] [place] [address] 54622 BARBITURATES Negative Normal NEG [facility] Comment on above: Result Comment: Yen iturates screening cut off value = 200 ng/mL Performed By: #### C BCA, CMP, 78988-8, PINR, 48555-6, 43572-1, 80883-0, 06165-7, THYR #### [facility] ([id number]) [address] [place] [address] 52566 BENZODIAZEPINES Negative Normal NEG [facility] Comment on above: Result Comment: Carlos odiazepines screening cut off value = 200 ng/mL Performed By: #### C BCA, CMP, 67896-1, PINR, 28345-0, 82745-7, 91522-9, 01073-4, THYR #### [facility] ([id number]) [address] [place] [address] 87019 CANNABINOIDS Negative Normal NEG [facility] Comment on above: Result Comment: Shirlene abinoids/THC screening cut off value = 50 ng/mL Performed By: #### C BCA, CMP, 68146-3, PINR, 31693-5, 27075-5, 56139-6, 67225-6, THYR #### [facility] ([id number]) [address] [place] [address] 08602 COCAINE METABOLITE Negative Normal NEG [facility] Comment on above: Result Comment: Coca ine screening cut off value = 300 ng/mL Performed By: #### C BCA, CMP, 21744-7, PINR, 02673-2, 59651-6, 78987-7, 88622-7, THYR #### [facility] ([id number]) [address] [place] [address] 88108 ECSTASY Negative Normal NEG [facility] Comment on above: Result Comment: Ecst asy screening cut off value = 500 ng/mL This report is intended for use in clinical monitoring or management of patients. Performed By: #### C BCA, CMP, 60868-7, PINR, 78294-7, 89317-0, 96874-7, 87144-6, THYR #### [facility] ([id number]) [address] [place] [address] 47893 METHADONE Negative Normal NEG [facility] Comment on above: Result Comment: Meth adone screening cut off value = 300 ng/mL. Performed By: #### C BCA, CMP, 77283-9, PINR, 46845-5, 06134-4, 61632-0, 05108-4, THYR #### [facility] ([id number]) [address] [place] [address] 10811 OPIATES Negative Normal NEG [facility] Comment on above: Result Comment: Opia yolande screening cut off value = 300 ng/mL NOTE: This test is used for the detection of codeine, hydrocodone (>1000 ng/mL), morphine and hydromorphone (>900 ng/mL) in urine. Performed By: #### C BCA, CMP, 96908-3, PINR, 25967-3, 71808-3, 69522-6, 11466-8, THYR #### [facility] ([id number]) [address] [place] [address] 51508 OXYCODONE Negative Normal NEG [facility] Comment on above: Result Comment: Oxyc odone screening cut off value = 300 ng/mL NOTE: This test is used for the detection of oxycodone and oxymorphone in urine. Performed By: #### C BCA, CMP, 71706-5, PINR, 31583-8, 24523-1, 75149-4, 38032-1, THYR #### [facility] ([id number]) [address] [place] [address] 37238 PHENCYCLIDINE Negative Normal NEG [facility] Comment on above: Result Comment: Phen cyclidine screening cut off value = 25 ng/mL Performed By: #### C MERCEDES, ERIK, 70504-5, PINR, 27410-7, 04231-7, 11136-5, 08687-8, THYR #### [facility] ([id number]) [address] [place] [address] 45633 Fibrin D-dimer DDU (PPP) [Ma ss/Vol]on 06-01-2023 D DIMER <150 Normal <255 [facility] Comment on above: Result Comment: Results <255 ng/mL DDU: The presence of a VTE can safely be excluded with a negative D-Dimer result and Wells score. A negative result doesn't exclude the possibility of DIC. The test be repeated along with other diagnostic tests if the patient's symptoms persist or worsen. [email or web address] Performed By: #### C MERCEDES, ERIK, 99167-9, PINR, 05553-7, 43057-2, 93560-2, 07012-4, THYR #### [facility] ([id number]) [address] [place] [address] 03686 Lead (BldV) [Mass/Vol]on LEAD, VENOUS 33.8 mcg/dL High <3.5 [facility] Comment on above: Result Comment: NOTE ADDITIONAL INFORMATION Testing performed by Inductively Coupled Plasma-Mass Spectrometry (ICP-MS). This test was developed and its performance characteristics determined by [facility] in a manner consistent with CLIA requirements. This test has not been cleared or approved by the U.S. Food and Drug Administration. Performed By: #### C BCA, CMP, 14490-3, PINR, 53057-1, 38275-4, 33698-4, 08394-3, THYR #### [facility] ([id number]) [address] [place] [address] 02578 MAGNESIUMon 06-01-2023 Magnesium [Mass/Vol] 2.1 mg/dL Normal 1.8-2.6 [facility] Comment on above: Performed By: #### C BCA, CMP, 56924-1, PINR, 48710-4, 67502-3, 33469-7, 78260-7, THYR #### [facility] ([id number]) [address] [place] [address] 96814 Natriuretic peptide B [Mass/ Vol]on 06-01-2023 BRN NATRIURETIC PEP <5 Normal <100.0 [facility] Comment on above: Performed By: #### C BCA, CMP, 69293-6, PINR, 19203-0, 06639-7, 42383-6, 80315-6, THYR #### [facility] ([id number]) [address] [place] [address] 04642 PROTIME AND INRon 06-01-2023 INR Coag (PPP) [Relative time] 1.1 {INR} Normal 0.8-1.1 [facility] Comment on above: Performed By: #### C BCA, CMP, 15453-3, PINR, 29552-4, 37385-0, 35879-4, 79799-1, THYR #### [facility] ([id number]) [address] [place] [address] 80249 PT Coag (PPP) [Time] 12.6 s Normal 9.8-13.2 [facility] Comment on above: Result Comment: NEW REFERENCE RANGE Performed By: #### C BCA, CMP, 87996-3, PINR, 38401-6, 34427-0, 45795-5, 01150-1, THYR #### [facility] ([id number]) [address] [place] [address] 92454 THYROID PROFILEon 06-01-2023 Free T4 [Mass/Vol] 0.88 ng/dL Normal 0.61-1.60 [facility] Comment on above: Performed By: #### C BCA, CMP, 03112-3, PINR, 12065-8, 76270-3, 97869-4, 12084-1, THYR #### [facility] ([id number]) [address] [place] [address] 97999 TSH 1.27 uIU/mL Normal 0.49-4.67 [facility] Comment on above: Performed By: #### C BCA, CMP, 40376-7, PINR, 18560-6, 89299-6, 04356-0, 56534-4, THYR #### [facility] ([id number]) [address] [place] [address] 45403 TROPONIN Ion 06-01-2023 Troponin I.cardiac [Mass/Vol] ng/mL Normal 0.00-0.04 [facility] Comment on above: Performed By: #### C BCA, CMP, 27136-3, PINR, 22566-9, 54881-6, 06380-4, 69434-3, THYR #### [facility] ([id number]) [address] [place] [address] 29285 URN MACROSCOPIC NURon 2023 BILIRUBIN FITO Negative Normal NEG [facility] Comment on above: Performed By: #### C BCA, CMP, 72019-5, PINR, 49439-9, 88639-2, 55590-1, 84695-9, THYR #### [facility] ([id number]) [address] [place] [address] 28845 BLOOD/HGB FITO Negative Normal NEG [facility] Comment on above: Performed By: #### C BCA, CMP, 20197-2, PINR, 22231-9, 27165-0, 89976-2, 39573-2, THYR #### [facility] ([id number]) [address] [place] [address] 88205 GLUCOSE FITO Negative Normal NEG [facility] Comment on above: Performed By: #### C BCA, CMP, 41781-0, PINR, 05189-8, 04055-7, 49273-1, 95601-9, THYR #### [facility] ([id number]) [address] [place] [address] 53484 KETONES FITO 40 mg/dL Abnormal NEG [facility] Comment on above: Performed By: #### C BCA, CMP, 90732-0, PINR, 29640-1, 72507-9, 01938-9, 77389-8, THYR #### [facility] ([id number]) [address] [place] [address] 90703 LEUKOCYTE ESTERASE FITO Negative Normal NEG [facility] Comment on above: Performed By: #### C BCA, CMP, 93746-3, PINR, 89355-3, 47070-1, 97145-7, 44683-1, THYR #### [facility] ([id number]) [address] [place] [address] 25337 NITRITE FITO Negative Normal NEG [facility] Comment on above: Performed By: #### C BCA, CMP, 03054-0, PINR, 54326-6, 38218-9, 99950-8, 90361-5, THYR #### [facility] ([id number]) [address] [place] [address] 83500 PH FITO 5.5 Normal 5.0-8.5 [facility] Comment on above: Performed By: #### C BCA, CMP, 42753-0, PINR, 08553-4, 56893-2, 66198-0, 28761-3, THYR #### [facility] ([id number]) [address] [place] [address] 84533 PROTEIN FITO Negative Normal NEG [facility] Comment on above: Performed By: #### C BCA, CMP, 06092-9, PINR, 58575-7, 46994-0, 88032-0, 21570-3, THYR #### [facility] ([id number]) [address] [place] [address] 63997 SPECIFIC GRAVITY FITO 1.025 Normal 1.003-1.035 [facility] Comment on above: Performed By: #### C BCA, CMP, 77340-4, PINR, 93721-0, 87742-1, 15418-6, 32381-0, THYR #### [facility] ([id number]) [address] [place] [address] 92236 UROBILINOGEN FITO 0.2 eu/dL Normal <1.1 [facility] Comment on above: Performed By: #### C BCA, CMP, 98753-7, PINR, 47027-6, 73739-1, 12913-9, 42253-4, THYR #### [facility] ([id number]) [address] [place] [address] 50489 XR CHEST 1 VWon 06-01-2023 XR CHEST [...] Pardo DO on 06/01/2023 3:32 PM Normal [facility] aPTT Coag (PPP) [Time]on aPTT Coag (Bld) [Time] 35 s Normal 26-37 [facility] Comment on above: Result Comment: NEW REFERENCE RANGE Performed By: #### C BCA, CMP, 99501-8, PINR, 72822-3, 88118-1, 19797-9, 47281-4, THYR #### [facility] ([id number]) [address] [place] [address], [place] [address] LEAD,ADULTon 09-05-2022 Lead, Blood (Adult) 45.4 ug/dL Invalid Interpretation Code 0.0-3.[address] [facility] Comment on above: Result Comment: Test ing performed by Inductively coupled plasma/Mass Spectrometry. Verified by repeat analysis Analysis by inductively coupled plasma/mass spectrometry (ICP/MS) Environmental Exposure: WHO Recommendation <20.0 Occupational Exposure: OSHA Lead Std 40.0 CHAZ 30.0 . Detection Limit = 1.0 Performed By: #### L EADA #### [facility] [address] [place] [address] Dr. Rachel Cortez LEAD,ADULTon 09-01-2022 Lead, Blood (Adult) CLOTWB Normal [facility] Comment on above: Result Comment: Test not performed. Whole blood specimen partially or completely clotted. A common cause is insufficient mixing upon collection. Testing performed by Inductively coupled plasma/Mass Spectrometry. contacted Nohelia at your facility on 09-01-2022 Environmental Exposure: WHO Recommendation <20.0 Occupational Exposure: OSHA Lead Std 40.0 CHAZ 30.0 . Detection Limit = 1.0 Performed By: #### I NSULIN #### [facility] [address] [place] [address] Dr. Rachel Cortez LEAD,ADULTon 08-30-2022 Lead, Blood (Adult) CLOTWB Normal [facility] Comment on above: Result Comment: Test not performed. Whole blood specimen partially or completely clotted. A common cause is insufficient mixing upon collection. Testing performed by Inductively coupled plasma/Mass Spectrometry. contacted Taya at your facility on 08-30-2022 Environmental Exposure: WHO Recommendation <20.0 Occupational Exposure: OSHA Lead Std 40.0 CHAZ 30.0 . Detection Limit = 1.0 Performed By: #### L EADA #### [facility] [address] [place] [address] Dr. Rachel Cortez BNPon 08-29-2022 Natriuretic peptide B (Bld) [Mass/Vol] 10.0 pg/mL Normal <=450.[address] [facility] Comment on above: Performed By: #### C MP, TSH, BNP #### [facility] [address] [place] [address] Dr. Rachel Cortez CBC AUTO DIFFon 08-29-2022 BASO # 0.0 103/ul Normal 0.0-0.[address] [facility] Comment on above: Performed By: #### C BC #### [facility] [address] [place] [address] Dr. Rachel Cortez Basophils/100 WBC (Bld) 0.5 % Normal 0.2-2.[address] [facility] Comment on above: Performed By: #### C BC #### [facility] [address] [place] [address] Dr. Rachel Cortez EO # 0.2 103/ul Normal 0.0-0.[address] [facility] Comment on above: Performed By: #### C BC #### [facility] [address] [place] [address] Dr. Rachel Cortez Eosinophils/100 WBC (Bld) 2.7 % Normal 0.9-7.[address] [facility] Comment on above: Performed By: #### C BC #### [facility] [address] [place] [address] Dr. Rachel Cortez Erythrocyte distribution width (RBC) [Ratio] 12.3 % Normal 11.0-15.[address] [facility] Comment on above: Performed By: #### C BC #### [facility] [address] [place] [address] Dr. Rachel Cortez Hematocrit (Bld) [Volume fraction] 40.9 % Critically low 42.0-54.[address] [facility] Comment on above: Performed By: #### C BC #### [facility] [address] [place] [address] Dr. Rachel Cortez Hemoglobin (Bld) [Mass/Vol] 13.9 g/dL Critically low 14.0-18.[address] [facility] Comment on above: Performed By: #### C BC #### [facility] [address] [place] [address] Dr. Rachel Cortez IG # 0.02 10e3/ul Normal 0.00-0.03 [facility] Comment on above: Performed By: #### C BC #### [facility] [address] [place] [address] Dr. Rachel Cortez IG % 0.3 % Normal 0.0-0.5 [facility] Comment on above: Performed By: #### C BC #### [facility] [address] [place] [address] Dr. Rachel Cortez LYMPH # 1.6 103/ul Normal 1.2-3.8 [facility] Comment on above: Performed By: #### C BC #### [facility] [address] [place] [address] Dr. Rachel Cortez Lymphocytes/100 WBC (Bld) 21.2 % Normal 20.5-60.0 [facility] Comment on above: Performed By: #### C BC #### [facility] [address] [place] [address] Dr. Rachel Cortez MANUAL DIFF REQ NO Normal [facility] Comment on above: Performed By: #### C BC #### [facility] [address] [place] [address] Dr. Rachel Cortez MCH (RBC) [Entitic mass] 30.3 pg Normal 25.9-34.0 [facility] Comment on above: Performed By: #### C BC #### [facility] [address] [place] [address] Dr. Rachel Cortez MCHC (RBC) [Mass/Vol] 34.0 g/dL Normal 29.9-35.[address] [facility] Comment on above: Performed By: #### C BC #### [facility] [address] [place] [address] Dr. Rachel Cortez MCV (RBC) [Entitic vol] 89.3 fL Normal 80.0-94.0 [facility] Comment on above: Performed By: #### C BC #### [facility] [address] [place] [address] Dr. Rachel Cortez MONO # 0.6 103/ul Normal 0.3-0.8 [facility] Comment on above: Performed By: #### C BC #### [facility] [address] [place] [address] Dr. Rachel Cortez Monocytes/100 WBC (Bld) 8.6 % Normal 1.7-12.0 [facility] Comment on above: Performed By: #### C BC #### [facility] [address] [place] [address] Dr. Rachel Cortez NEUT # 5.0 103/ul Normal 1.4-6.5 [facility] Comment on above: Performed By: #### C BC #### [facility] [address] [place] [address] Dr. Rachel Cortez Neutrophils/100 WBC (Bld) 66.7 % Normal 43.0-75.0 [facility] Comment on above: Performed By: #### C BC #### [facility] [address] [place] [address] Dr. Rachel Cortez Platelet mean volume (Bld) [Entitic vol] 10.2 fL Normal 9.5-13.[address] [facility] Comment on above: Performed By: #### C BC #### [facility] [address] [place] [address] Dr. Rachel Cortez PLT 198 103/ul Normal 150-[address] [facility] Comment on above: Performed By: #### C BC #### [facility] [address] [place] [address] Dr. Rachel Cortez RBC 4.58 106/ul Critically low 4.70-6.10 [facility] Comment on above: Performed By: #### C BC #### [facility] [address] [place] [address] Dr. Rachel Cortez WBC 7.5 103/ul Normal 4.0-11.[address] [facility] Comment on above: Performed By: #### C BC #### [facility] [address] [place] [address] Dr. Rachel Cortez FREE T4on 08-29-2022 Free T4 [Mass/Vol] 0.84 ng/dL Normal 0.76-1.46 [facility] Comment on above: Performed By: #### I KANDIS FT4 #### [facility] [address] [place] [address] Dr. Rachel RAMon 08-29-2022 Iron [Mass/Vol] 86.0 ug/dL Normal 65.0-175.0 [facility] Comment on above: Performed By: #### I KANDIS FT4 #### [facility] [address] [place] [address] Dr. Rachel Cortez PROF 14(COMP METB)on 023 Albumin [Mass/Vol] 4.0 g/dL Normal 3.4-5.0 [facility] Comment on above: Performed By: #### C MP, TSH, BNP #### [facility] [address] [place] [address] Dr. Rachel Cortez Albumin/Globulin [Mass ratio] 1.2 {ratio} Normal [facility] Comment on above: Performed By: #### C MP, TSH, BNP #### [facility] [address] [place] [address] Dr. Rachel Cortez ALP [Catalytic activity/Vol] 103 U/L Normal 46-116 [facility] Comment on above: Performed By: #### C MP, TSH, BNP #### [facility] [address] [place] [address] Dr. Rachel Cortez ALT [Catalytic activity/Vol] 39 U/L Normal 16-[address] [facility] Comment on above: Performed By: #### C MP, TSH, BNP #### [facility] [address] [place] [address] Dr. Rachel Cortez Anion gap [Moles/Vol] 10.2 mmol/L Normal [facility] Comment on above: Performed By: #### C MP, TSH, BNP #### [facility] [address] [place] [address] Dr. Rachel Cortez AST [Catalytic activity/Vol] 20 U/L Normal 15-37 [facility] Comment on above: Performed By: #### C MP, TSH, BNP #### [facility] [address] [address] [address] Rachel Cortez Bilirubin [Mass/Vol] 0.3 mg/dL Normal 0.2-1.0 [facility] Comment on above: Performed By: #### C MP, TSH, BNP #### [facility] [address] [place] [address] Dr. Rachel Cortez Calcium [Mass/Vol] 9.8 mg/dL Normal 8.5-10.1 [facility] Comment on above: Performed By: #### C MP, TSH, BNP #### [facility] [address] [place] [address] Dr. Rachel Cortez Chloride [Moles/Vol] 105 mmol/L Normal 98-107 [facility] Comment on above: Performed By: #### C MP, TSH, BNP #### [facility] [address] [place] [address] Dr. Rachel Cortez CO2 [Moles/Vol] 29.9 mmol/L Normal 21.0-32.0 [facility] Comment on above: Performed By: #### C MP, TSH, BNP #### [facility] [address] [place] [address] Dr. Rachel Cortez Creatinine [Mass/Vol] 1.19 mg/dL Normal 0.70-1.30 [facility] Comment on above: Performed By: #### C MP, TSH, BNP #### [facility] [address] [place] [address] Dr. Rachel Cortez EGFR-AF WELSH >60 Normal >=60 [facility] Comment on above: Performed By: #### C MP, TSH, BNP #### [facility] [address] [place] [address] Dr. Rachel Cortez EGFR-NON AF WELSH >60 Normal >=60 [facility] Comment on above: Performed By: #### C MP, TSH, BNP #### [facility] [address] [place] [address] Dr. Rachel Cortez Globulin (S) [Mass/Vol] 3.4 g/dL Normal [facility] Comment on above: Performed By: #### C MP, TSH, BNP #### [facility] [address] [place] [address] Dr. Rachel Cortez Glucose [Mass/Vol] 105 mg/dL Normal 74-106 [facility] Comment on above: Performed By: #### C MP, TSH, BNP #### [facility] [address] [place] [address] Dr. Rachel Cortez Potassium [Moles/Vol] 4.1 mmol/L Normal 3.5-5.1 [facility] Comment on above: Performed By: #### C MP, TSH, BNP #### [facility] [address] [place] [address] Dr. Rachel Cortez Protein [Mass/Vol] 7.4 g/dL Normal 6.4-8.2 [facility] Comment on above: Performed By: #### C MP, TSH, BNP #### [facility] [address] [place] [address] Dr. Rachel Cortez Sodium [Moles/Vol] 141 mmol/L Normal 136-145 [facility] Comment on above: Performed By: #### C MP, TSH, BNP #### [facility] [address] [place] [address] Dr. Rachel Cortez Urea nitrogen [Mass/Vol] 16.0 mg/dL Normal 7.0-18.0 [facility] Comment on above: Performed By: #### C MP, TSH, BNP #### [facility] [address] [place] [address] Dr. Rachel Cortez Urea nitrogen/Creatinine [Mass ratio] 13.4 mg/mg Normal [facility] Comment on above: Performed By: #### C MP, TSH, BNP #### [facility] [address] [place] [address] Dr. Rachel Cortez TSHon 08-29-2022 TSH 0.978 uIU/mL Normal 0.358-3.740 [facility] Comment on above: Performed By: #### I NSULIN #### [facility] [address] [place] [address] FACIAL BONES WO [...] WILFRID CAMARENA Date: 2022-08-11 18:30 Normal [facility] CT HEAD WO CONon 08-11-2022 CT [...] MARLYS MUNOZ Date: 2022-08-11 19:49 Normal [facility] INSULINon 05-09-2022 Insulin 9.9 uIU/mL Normal 2.6-24.9 [facility] Comment on above: Performed By: #### I NSULIN #### [facility] [address] [place] [address] Dr. Rachel Cortez CBC AUTO DIFFon 05-07-2022 BASO # 0.1 103/ul Normal 0.0-0.1 [facility] Comment on above: Performed By: #### I NSULIN #### [facility] [address] [place] [address] Dr. Rachel Cortez Basophils/100 WBC (Bld) 0.7 % Normal 0.2-2.0 [facility] Comment on above: Performed By: #### I NSULIN #### [facility] [address] [place] [address] Dr. Rachel Cortez EO # 0.0 103/ul Normal 0.0-0.7 [facility] Comment on above: Performed By: #### I NSULIN #### [facility] [address] [place] [address] Dr. Rachel Cortez Eosinophils/100 WBC (Bld) 0.1 % Critically low 0.9-7.0 [facility] Comment on above: Performed By: #### I NSULIN #### [facility] [address] [place] [address] Dr. Rachel Cortez Erythrocyte distribution width (RBC) [Ratio] 12.2 % Normal 11.0-15.0 [facility] Comment on above: Performed By: #### I NSULIN #### [facility] [address] [place] [address] Dr. Rachel Cortez Hematocrit (Bld) [Volume fraction] 41.1 % Critically low 42.0-54.0 [facility] Comment on above: Performed By: #### I NSULIN #### [facility] [address] [place] [address] Dr. Rachel Cortez Hemoglobin (Bld) [Mass/Vol] 14.1 g/dL Normal 14.0-18.0 [facility] Comment on above: Performed By: #### I NSULIN #### [facility] [address] [place] [address] Dr. Rachel Cortez IG # 0.03 10e3/ul Normal 0.00-0.03 [facility] Comment on above: Performed By: #### I NSULIN #### [facility] [address] [place] [address] Dr. Rachel Cortez IG % 0.4 % Normal 0.0-0.5 [facility] Comment on above: Performed By: #### I NSULIN #### [facility] [address] [place] [address] Dr. Rachel Cortez LYMPH # 2.3 103/ul Normal 1.2-3.8 [facility] Comment on above: Performed By: #### I NSULIN #### [facility] [address] [place] [address] Dr. Rachel Cortez Lymphocytes/100 WBC (Bld) 30.8 % Normal 20.5-60.0 [facility] Comment on above: Performed By: #### I NSULIN #### [facility] [address] [place] [address] Dr. Rachel Cortez MANUAL DIFF REQ NO Normal [facility] Comment on above: Performed By: #### I NSULIN #### [facility] [address] [place] [address] Dr. Rachel Cortez MCH (RBC) [Entitic mass] 29.9 pg Normal 25.9-34.0 [facility] Comment on above: Performed By: #### I NSULIN #### [facility] [address] [place] [address] Dr. Rachel Cortez MCHC (RBC) [Mass/Vol] 34.3 g/dL Normal 29.9-35.2 [facility] Comment on above: Performed By: #### I NSULIN #### [facility] [address] [place] [address] Dr. Rachel Cortez MCV (RBC) [Entitic vol] 87.3 fL Normal 80.0-94.0 [facility] Comment on above: Performed By: #### I NSULIN #### [facility] [address] [place] [address] Dr. Rachel Cortez MONO # 0.7 103/ul Normal 0.3-0.8 [facility] Comment on above: Performed By: #### I NSULIN #### [facility] [address] [place] [address] Dr. Rachel Cortez Monocytes/100 WBC (Bld) 8.9 % Normal 1.7-12.0 [facility] Comment on above: Performed By: #### I NSULIN #### [facility] [address] [place] [address] Dr. Rachel Cortez NEUT # 4.3 103/ul Normal 1.4-6.5 [facility] Comment on above: Performed By: #### I NSULIN #### [facility] [address] [place] [address] Dr. Rachel Cortez Neutrophils/100 WBC (Bld) 59.1 % Normal 43.0-75.0 [facility] Comment on above: Performed By: #### I NSULIN #### [facility] [address] [place] [address] Dr. Rachel Cortez Platelet mean volume (Bld) [Entitic vol] 9.9 fL Normal 9.5-13.5 [facility] Comment on above: Performed By: #### I NSULIN #### [facility] [address] [place] [address] Dr. Rachel Cortez PLT 184 103/ul Normal 150-[address] [facility] Comment on above: Performed By: #### I NSULIN #### [facility] [address] [place] [address] Dr. Rachel Cortez RBC 4.71 106/ul Normal 4.70-6.[address] [facility] Comment on above: Performed By: #### I NSULIN #### [facility] [address] [place] [address] Dr. Rachel Cortez WBC 7.3 103/ul Normal 4.0-11.0 [facility] Comment on above: Performed By: #### I NSULIN #### [facility] [address] [place] [address] Dr. Rachel Cortez CULTURE URINEon 05-07-2022 CULTURE URINE Culture Observations: LIGHT GROWTH OF MIXED SKIN NILES. NO POTENTIAL PATHOGENS SEEN. Normal [facility] Comment on above: Performed By: #### I NSULIN #### [facility] [address] [place] [address] Dr. Rachel Cortez FREE THYROXINE INDEX T7on FTI 2.07 Normal 1.30-4.50 [facility] Comment on above: Performed By: #### I NSULIN #### [facility] [address] [place] [address] Dr. Rachel Cortez T3U 35.0 % Normal 33.0-40.0 [facility] Comment on above: Performed By: #### I NSULIN #### [facility] [address] [place] [address] Dr. Rachel Cortez T4 [Mass/Vol] 5.90 ug/dL Normal 4.50-12.10 [facility] Comment on above: Performed By: #### I NSULIN #### [facility] [address] [place] [address] Dr. Rachel Cortez GLYCOHEMOGLOBIN A1Con 2022 ADA RECOMMENDATION SEE BELOW Normal [facility] Comment on above: Result Comment: ADA RECOMMENDED LIMIT 4.0 - 6.0 ADA THERAPEUTIC TARGET < 7.0 ACTION SUGGESTED > 7.0 Performed By: #### A 1C #### [facility] [address] [place] [address] Dr. Rachel Cortez Glucose [Mass/Vol] 100 mg/dL Normal [facility] Comment on above: Performed By: #### A 1C #### [facility] [address] [place] [address] Dr. Rachel Cortez HbA1c (Bld) [Mass fraction] 5.1 % Normal 4.5-6.[address] [facility] Comment on above: Performed By: #### A 1C #### [facility] [address] [place] [address] Dr. Rachel Cortez IRONon 05-07-2022 Iron [Mass/Vol] 104.0 ug/dL Normal 65.0-175.0 [facility] Comment on above: Performed By: #### I NSULIN #### [facility] [address] [place] [address] [address] Rachel Cortez LIPID PROFILEon 05-07-2022 CHOL-HDL RATIO NORM SEE BELOW Normal [facility] Comment on above: Result Comment: 3.3 - 4.4 LOW RISK 4.4 - 7.1 AVERAGE RISK 7.1 - 11.0 MODERATE RISK >11.0 HIGH RISK Performed By: #### C MP, LIPID #### [facility] [address] [address] [address] Rachel Cortez Cholesterol [Mass/Vol] 147 mg/dL Normal <=200 [facility] Comment on above: Performed By: #### C MP, LIPID #### [facility] [address] [address] [address] Rachel Cortez Cholesterol in HDL [Mass/Vol] 56 mg/dL Normal 40-60 [facility] Comment on above: Performed By: #### C MP, LIPID #### [facility] [address] [address] [address] Rachel Cortez Cholesterol in LDL [Mass/Vol] 77.8 mg/dL Normal [facility] Comment on above: Performed By: #### C MP, LIPID #### [facility] [address] [place] [address] Dr. Rachel Cortez Cholesterol.total/Ch olesterol in HDL [Mass ratio] 2.6 {ratio} Normal [facility] Comment on above: Performed By: #### C MP, LIPID #### [facility] [address] [address] [address] Rachel Cortez HDL NORMAL > or = 60 mg/dl - LOW CARDIOVASCULAR RISK <40 mg/dl - HIGH CARDIOVASCULAR RISK Normal [facility] Comment on above: Performed By: #### C MP, LIPID #### [facility] [address] [address] [address] Rachel Cortez LDL CALC NORMAL SEE BELOW Normal [facility] Comment on above: Result Comment: <100 mg/dl OPTIMAL 100 - 129 mg/dl NEAR OR ABOVE OPTIMAL 130 - 159 mg/dl BORDERLINE HIGH 160 - 189 mg/dl HIGH >190 mg/dl VERY HIGH Performed By: #### C MP, LIPID #### [facility] [address] [place] [address] Dr. Rachel Cortez Triglyceride [Mass/Vol] 66 mg/dL Normal <=150 [facility] Comment on above: Performed By: #### C MP, LIPID #### [facility] [address] [place] [address] Dr. Rachel Coretz VLDL CALC 13.2 mg/dL Normal [facility] Comment on above: Performed By: #### C MP, LIPID #### [facility] [address] [place] [address] Dr. Rachel Cortez PROF 14(COMP METB)on 023 Albumin [Mass/Vol] 4.0 g/dL Normal 3.4-5.0 [facility] Comment on above: Performed By: #### C MP, LIPID #### [facility] [address] [place] [address] Dr. Rachel Cortez Albumin/Globulin [Mass ratio] 1.3 {ratio} Normal [facility] Comment on above: Performed By: #### C MP, LIPID #### [facility] [address] [place] [address] Dr. Rachel Cortez ALP [Catalytic activity/Vol] 86 U/L Normal 46-116 [facility] Comment on above: Performed By: #### C MP, LIPID #### [facility] [address] [place] [address] Dr. Rachel Cortez ALT [Catalytic activity/Vol] 35 U/L Normal 16-63 [facility] Comment on above: Performed By: #### C MP, LIPID #### [facility] [address] [place] [address] Dr. Rachel Cortez Anion gap [Moles/Vol] 9.9 mmol/L Normal [facility] Comment on above: Performed By: #### C MP, LIPID #### [facility] [address] [place] [address] Dr. Rachel Cortez AST [Catalytic activity/Vol] 22 U/L Normal 15-37 [facility] Comment on above: Performed By: #### C MP, LIPID #### [facility] [address] [address] [address] Rachel Cortez Bilirubin [Mass/Vol] 0.4 mg/dL Normal 0.2-1.0 [facility] Comment on above: Performed By: #### C MP, LIPID #### [facility] [address] [address] [address] Rachel Cortez Calcium [Mass/Vol] 10.1 mg/dL Normal 8.5-10.1 [facility] Comment on above: Performed By: #### C MP, LIPID #### [facility] [address] [place] [address] Dr. Rachel Cortez Chloride [Moles/Vol] 107 mmol/L Normal 98-107 [facility] Comment on above: Performed By: #### C MP, LIPID #### [facility] [address] [place] [address] Dr. Rachel Cortez CO2 [Moles/Vol] 30.0 mmol/L Normal 21.0-32.0 [facility] Comment on above: Performed By: #### C MP, LIPID #### [facility] [address] [place] [address] Dr. Rachel Cortez Creatinine [Mass/Vol] 1.16 mg/dL Normal 0.70-1.30 [facility] Comment on above: Performed By: #### C MP, LIPID #### [facility] [address] [place] [address] Dr. Rachel Cortez EGFR-AF WELSH >60 Normal >=60 [facility] Comment on above: Performed By: #### C MP, LIPID #### [facility] [address] [place] [address] Dr. Rachel Cortez EGFR-NON AF WELSH >60 Normal >=60 [facility] Comment on above: Performed By: #### C MP, LIPID #### [facility] [address] [place] [address] Dr. Rachel Cortez Globulin (S) [Mass/Vol] 3.0 g/dL Normal [facility] Comment on above: Performed By: #### C MP, LIPID #### [facility] [address] [address] [address] Rachel Cortez Glucose [Mass/Vol] 88 mg/dL Normal 74-106 [facility] Comment on above: Performed By: #### C MP, LIPID #### [facility] [address] [place] [address] Dr. Rachel Cortez Potassium [Moles/Vol] 3.9 mmol/L Normal 3.5-5.1 [facility] Comment on above: Performed By: #### C MP, LIPID #### [facility] [address] [place] [address] Dr. Rachel Cortez Protein [Mass/Vol] 7.0 g/dL Normal 6.4-8.2 [facility] Comment on above: Performed By: #### C MP, LIPID #### [facility] [address] [place] [address] Dr. Rachel Cortez Sodium [Moles/Vol] 143 mmol/L Normal 136-145 [facility] Comment on above: Performed By: #### C MP, LIPID #### [facility] [address] [place] [address] Dr. Rachel Cortez Urea nitrogen [Mass/Vol] 16.0 mg/dL Normal 7.0-18.0 [facility] Comment on above: Performed By: #### C MP, LIPID #### [facility] [address] [place] [address] Dr. Rachel Cortez Urea nitrogen/Creatinine [Mass ratio] 13.8 mg/mg Normal [facility] Comment on above: Performed By: #### C MP, LIPID #### [facility] [address] [place] [address] Dr. Rachel Cortez TSHon 05-07-2022 TSH 2.417 uIU/mL Normal 0.358-3.740 [facility] Comment on above: Performed By: #### I NSULIN #### [facility] [address] [place] [address] Dr. Rachel Cortez UA RANDOM W/MICROSCOPICon BACTERIA NONE SEEN Normal NONE SEEN [facility] Comment on above: Performed By: #### I NSULIN #### [facility] [address] [address] [address] Rachel Cortez Bilirubin Ql (U) Negative Normal NEGATIVE [facility] Comment on above: Performed By: #### I NSULIN #### [facility] [address] [address] [address] Rachel Cortez CAST NONE SEEN Normal NONE SEEN [facility] Comment on above: Performed By: #### I NSULIN #### [facility] [address] [address] [address] Rachel Cortez Clarity (U) CLEAR Normal CLEAR [facility] Comment on above: Performed By: #### I NSULIN #### [facility] [address] [place] [address] Dr. Rachel Cortez Color (U) YELLOW Normal YELLOW [facility] Comment on above: Performed By: #### I NSULIN #### [facility] [address] [place] [address] Dr. Rachel Cortez Crystals LM Nom (Urine sed) NONE SEEN Normal NONE SEEN [facility] Comment on above: Performed By: #### I NSULIN #### [facility] [address] [place] [address] Dr. Rachel Cortez Epithelial cells LM Ql (Urine sed) NONE SEEN Normal NONE SEEN /RARE [facility] Comment on above: Performed By: #### I NSULIN #### [facility] [address] [place] [address] Dr. Rachel Cortez Glucose Ql (U) Negative Normal NEGATIVE [facility] Comment on above: Performed By: #### I NSULIN #### [facility] [address] [place] [address] Dr. Rachel Cortez Hemoglobin Ql (U) Negative Normal NEGATIVE [facility] Comment on above: Performed By: #### I NSULIN #### [facility] [address] [place] [address] Dr. Rachel Cortez Ketones Ql (U) Negative Normal NEGATIVE [facility] Comment on above: Performed By: #### I NSULIN #### [facility] [address] [place] [address] Dr. Rachel Cortez LEUKOCYTES Negative Normal NEGATIVE [facility] Comment on above: Performed By: #### I NSULIN #### [facility] [address] [address] [address] aRchel Cortez MUCOUS MODERATE Abnormal NONE SEEN [facility] Comment on above: Performed By: #### I NSULIN #### [facility] [address] [address] [address] Rachel Cortez Nitrite Ql (U) Negative Normal NEGATIVE [facility] Comment on above: Performed By: #### I NSULIN #### [facility] [address] [place] [address] Dr. Rachel Cortez pH (U) 6.0 [pH] Normal 5-9 [facility] Comment on above: Performed By: #### I NSULIN #### [facility] [address] [place] [address] Dr. Rachel Cortez RBC NONE SEEN Abnormal 0-[address] [facility] Comment on above: Performed By: #### I NSULIN #### [facility] [address] [place] [address] Dr. Rachel Cortez SPEC GRAVITY 1.030 Abnormal 1.005-<=1.025 [facility] Comment on above: Performed By: #### I NSULIN #### [facility] [address] [place] [address] Dr. Rachel Cortez UA PROTEIN Negative Normal NEGATIVE/ TRACE [facility] Comment on above: Performed By: #### I NSULIN #### [facility] [address] [place] [address] Dr. Rachel Cortez Urobilinogen Qn (U) 1.0 {Colby'U}/dL Normal 0.2 - 1. [address] [facility] Comment on above: Performed By: #### I NSULIN #### [facility] [address] [place] [address] Dr. Rachel Cortez WBC NONE SEEN Normal NONE SEEN [facility] Comment on above: Performed By: #### I NSULIN #### [facility] [address] [place] [address] Dr. Rachel Cortez XR LSPINE MIN 4 [...] by: MARINA MAIN Date: 2022-05-06 16:40 Normal [facility] Coding Summary.on 03-31-2020 Coding Summary. CODING DATE: 03/31/2020 FINAL [facility] STATUS: Home (Routine DC) PAYOR: Self [...] Barajas Date Saved: 03/31/2020 08:22 am Normal [facility] Consent for Treatmenton Consent for Treatment [id number] Normal [facility] Discharge Instructionson Discharge Instructions [id number]:[id number] Normal [facility] ED Clinical Summaryon 2019 ED Clinical Summary [place] [id number] ED Clinical Summary Person Information Name: REY BAXTER/[facility] Age: 39 Years : 1980 Sex: Male Language: Turkmen PCP: Irena Gardner MD Marital Status: Single [...] 03/30/2020 14:05:58 03/30/2020 14:05:58 03/30/2020 14:05:58 ADDRESS: [address] [place] [id number] PHYS DOC NOTES: MEDICAL INFORMATION: Prescriptions Given: New Medications Printed Prescriptions acetaminophen-hydroc odone (Berry 325 mg-5 mg oral tablet) 1 Tablets [...] Follow up: With: Address: When: Irena Gardner [address] [place] [address], [facility] [place] [id number] Business (1) In 3 days 04/02/2020 DIAGNOSIS: Lumbar strain Normal [facility] ED Note-Physicianon 03-30-20 ED Note-Physician Basic Information Time Seen: Darrick Gibbs PA-C 03/30/2020 11:47 Chief Complaint Pt. presents to the ed with c/o left lower back pain that started last night while laying in bed. 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 History of Present Illness 39-year-old male comes [...] and follow-up recommendations Discharge Prescription List Prescriptions Berry 325 mg-5 mg oral tablet, 1 tab(s), Oral, q6hr, PRN predniSONE 20 mg Tab, 60 mg= 3 tab(s), Oral, Daily Robaxin-750 oral tablet, 1500 mg= 2 tab(s), Oral, TID Follow-up With When Contact Information Irena Gardner In 3 days 04/02/2020 [place] [id number] Business (1) Additional Instructions: Patient Education Lumbosacral Strain Attestation Patient seen and evaluated by the physician automotive parts counter assistant. Attending physician was present in the emergency department and supervised care. This report was transcribed using voice recognition software. Every effort was made to ensure accuracy, however, inadvertently computerized yarn polishing machine operator mistakes may be present. Appropriate [...] oral syrup, 5 mL, Oral, QID, PRN Berry 325 mg-5 mg oral tablet, 1 tab(s), [...] acute abnormality Read By: Darrick Gibbs PA-C [facility] Comment on above: Result Comment: Elec [...] Document Reviewed: 11/27/2013 ExitCare? Patient Information ?2015 [employer]. This information is not intended to replace advice given to you by your health care provider. Make sure you discuss any questions you have with your health care provider. Normal [facility] ED Patient Summaryon 020 ED Patient Summary [place] [id number] Patient Discharge Instructions Person Information Name: REY BAXTER Age: 39 Years Arrival Date: 03/30/2020 11:37:37 Discharge Diagnosis: Lumbar strain Primary Care Physician: Irena Gardner MD Provider Information Primary Provider: Shaun Tomlinson DO Advanced Test Baker:Darrick Gibbs PA-C The exam and treatment you received in the Emergency Department were for an urgent problem and are not intended as complete care. It is important that you follow up with a doctor, nurse practitioner, or physician?s automotive parts counter assistant for ongoing care. If your symptoms [...] Follow-up Instructions: With: Address: When: Irena Turnermohinder [address] [place] [address], [facility] [place] [id number] [facility] [place] [facility] () In 3 days 04/02/2020 In the event that this physician does not participate in your insurance network, please consult with your insurance company to find a nearby participating provider. Patient Education Materials: Lumbosacral Strain A MESSAGE TO ALL PATIENTS REGARDING OPIOIDS PRESCRIPTION OPIOIDS: WHAT YOU NEED TO KNOW Prescription opioids can be used to help relieve zwdganor-an-gitgpd pain and are often prescribed following a [...] be struggling with addiction, tell your health caretaker and ask for guidance or call SAM[employer]?S National Helpline at 4-022-176-KTNE. v Source: [place] Department of Health and Human Services/Center for Disease Control & Prevention [facility] Medications Given: Medication Dose Route orphenadrine 60.00 mg IntraMuscular Left Gluteus Medius acetaminophen-oxycod one 1.00 tab(s) Oral Medication Information: New Medications Printed Prescriptions acetaminophen-hydroc odone (Berry 325 mg-5 mg oral tablet) 1 Tablets [...] Comment: Pharmacy Information: Thank you for choosing [facility] Patient Education Materials: Lumbosacral Strain Lumbosacral strain [...] Document Reviewed: 11/27/2013 ExitCare? Patient Information ?2015 [employer]. This information is not intended to replace advice given to you by your health care provider. Make sure you discuss any questions you have with your health care provider. JULIANNE Mitchell BRIAN S , have received the following patient education materials/instructio ns and have verbalized understanding: Patient Education Materials: Lumbosacral Strain Follow-up Instructions: With: Address: When: Irena Gardner [facility], [place] [address] Business (1) In 3 days 04/02/2020 Patient Signature Date Clinician/Nurse Signature Date 03/30/2020 14:06:00 [facility] Prescriptions/Work Noteson 1 05-31-2019 Prescriptions/Work Notes [id number] 2#1.00CD:127 [facility] XR Spine Lumbosacral 2 or 3 [...] Mullen M.D. Transcribed by: caleb Technologist: MIGUEL [facility] Vital Signs Date Time Vital Sign Value Performing Clinician Myra chisholm 08-02-2023 15:48-0400 Body height 177.8 cm Ji Fajardo MD Work Phone: [facility] 08-02-2023 15:48-0400 Body weight 72.45 kg Ji Fajardo MD Work Phone: [facility] 08-02-2023 15:48-0400 Diastolic blood pressure 74 mm[Hg] Ji Fajardo MD Work Phone: [facility] 08-02-2023 15:48-0400 Heart rate 74 /min Ji Fajardo MD Work Phone: [facility] 08-02-2023 15:48-0400 Respiratory rate 18 /min Ji Fajardo MD Work Phone: [facility] 08-02-2023 15:48-0400 SaO2% (BldA) [Mass fraction] 98 % Ji Fajardo MD Work Phone: [facility] 08-02-2023 15:48-0400 Systolic blood pressure 115 mm[Hg] Ji Fajardo MD Work Phone: [facility] Encounters Encounter Date Encounter Type Care Provider Facility Start: 08-10-2023 End: 08-10-2023 ambulatory JI FAJARDO Facility:[facility] Start: 08-10-2023 End: 08-10-2023 ambulatory Jean Av PT Work Phone: Physical Therapy Comment on above: Dizziness Start: 08-08-2023 End: 08-08-2023 ambulatory [facility] Start: 08-04-2023 Telephone encounter Ji Magdaleno Neurology [facility] Comment on above: Workers comp Start: 08-03-2023 End: 08-03-2023 ambulatory JI FAJARDO Facility:[facility] Start: 08-02-2023 End: 08-02-2023 ambulatory [facility] Facility:[facility] Start: 08-02-2023 End: 08-02-2023 Office outpatient new 45 minutes Ji Fajardo MD Work Phone: Neurology Headache [facility] Comment on above: Worsening headaches (Primary Dx); Dizziness; Toxic effect of lead, accidental or unintentional, initial encounter Start: 08-02-2023 Telephone encounter Ji Magdaleno Neurology [facility] Start: 08-01-2023 ambulatory Digna Chavez RN [facility] Start: 08-01-2023 Patient encounter procedure Digna Chavez RN NURSE [employer] SUPERVISOR Comment on above: Referral Request Start: 06-21-2023 End: 06-21-2023 ambulatory OLLIE NAVASMAYTE [facility] Start: 06-20-2023 End: 06-20-2023 ambulatory INDU JOSE MPEDRONATALYA [facility] Start: 06-02-2023 End: 06-03-2023 ambulatory JOHN MEEKS [facility] Start: 06-01-2023 End: 06-03-2023 Emergency department patient visit MAINE FERGUSON [facility] Start: 06-01-2023 End: 06-02-2023 ambulatory IRENA GARDNER [facility] Start: 09-01-2022 End: 09-02-2022 ambulatory [...] above: Performed By: #### L EADA #### [facility] [address] [place] [address] Dr. Rachel Cortez Plan of Treatment Date Care Activity Detail Author Start: 06-02-2026 Diabetes Screening Diabetes Screenin g [facility] Start: 12-24-2023 Influenza vaccination Influenz a Vaccine (Season Ended) [facility] Start: 11-08-2023 End: 11-08-2023 Patient encounter procedure 11/08/2023 11:00 AM EDT Office Visit Neurology [address] [place] [address] Gina Dooley, PILO.NOODLE CATALYST MAKER [address] [place] [address] Neurology Start: 07-29-2023 Diabetes Screening Diabetes Screenin g [facility] Start: 07-29-2023 Screening for malign ant neoplasm of colon [facility] Start: 04-24-2023 Behavioral Health Screening Behavioral Health Screening [facility] Start: 12-23-2022 Covid-19 Vaccine ( season) Covid-19 Vaccine ( season) [facility] Start: 2013 Lipid panel Lipid Screening [facility] Start: 1997 Hepatitis B Vaccine (1 of 3 - 19+ 3-dose series) Hepatitis B Vaccine (1 of 3 - 19+ 3-dose series) [facility] Start: 1997 Urine microalbumin profile DTa P,Tdap,Td Vaccine (1 - Tdap) [facility] Start: 1996 Hepatitis C screening Hepatitis C [facility] Start: 1996 HIV screening HIV Screening [facility] Payers Date Payer Category Payer Unknown [id number] 2022 Unknown [id number] 1978 Unknown [id number] 2.16.84 [id number] 1978 Unknown [id number] 2.16.84 [id number] 1978 Unknown [id number] [id number] 1978 Unknown [id number] 2.16.84 [id number] 1978 Unknown [id number] 2.16.84 [id number] 1978 Unknown [id number] 2.16.84 [id number] 1978 Unknown [id number] 2.16.8 [id number] 1978 Unknown [id number] 2.16.8 [id number] 1978 Unknown [id number] 2.16.8 [id number] 1959 Unknown [id number] Social History Date Type Detail Facility Tobacco smoking stat [facility] Tobacco smoking consumption unknown [facility] Start: 1980 Sex Assigned At Not on file [facility] Start: 08-02-2023 Gender identity Not on file [facility] Start: 08-02-2023 Tobacco smoking stat [facility] Never smoked tobacco [facility] Start: 08-02-2023 Tobacco use and exposure Smokeless t obacco non-user [facility] Start: 08-02-2023 History of Social function [facility] National Score (1-10 0), lower number is lower risk 73 [facility] Clinical Notes 06-20-2023 to 08-10-2023 Jean Valencia, ONIEL - 08/10/2023 10:06 AM Jean Crump PT - 08/10/2023 9:30 AM EDTTZander Lozada MA - 08/04/2023 9:08 AM Ji Kauffman MD - 08/02/2023 4:10 PM EDT Note Date & Type Note Facility 08-10-2023 Note HNO ID: [id number] Author: JEAN VALENCIA PT Service: ? Author [...] Planned: (4) Planned Treatment Interventions: Neuromuscular re-education (64201), Manual therapy (20137), Therapeutic activities (25920), Self-detention management (57563), Therapeutic exercise (74641), Patient/Family/Caregiver Education PLAN FOR NEXT VISIT: Patient [...] and vertical head (more content not included)... [facility] 08-10-2023 History of Present illness Narrative Program_ID:[id number] Access Code: [email or web address] URL: [email or web address] Date: 08-10-2023 Prepared By: Jean Valencia Program [...] Planned: (4) Planned Treatment Interventions: Neuromuscular re-education (47017), Manual therapy (16345), Therapeutic activities (04592), Self-detention management (64106), Therapeutic exercise (33987), Patient/Family/Caregiver Education PLAN FOR NEXT VISIT: Patient [...] States/Identifies, Return Demonstration TREATMENT: PT Treatment Interventions: Self-Mcfp Management, Manual Therapy, Neuromuscular Re-Education Evaluation Therapeutic [...] Jean Valencia PT documented in this encounter [facility] 08-08-2023 Note IA Electrophysiology Consult Note Reason for visit: afib, chest pain , palpitations HPI: Rey [place] is a 43 y.o. year old with past medical history of Lumbar radiculopathy, GERD, HERIBERTO, fatigue, paroxysmal A-fib,, lead toxicity. Patient was referred to our clinic for A-fib he was seen recently at [facility] and was found to be in A-fib [...] his lead toxicity Patient was referred to [facility] but it seems as though no one [...] no gallop Systo (more content not included)... [facility] 08-04-2023 Miscellaneous Notes Patient records received via electronic fax. Uploaded to [employer] via [employer]. Please review in scanned documents tab of chart review. Zander Denson MA documented in this encounter [facility] 08-03-2023 Note HNO ID: [id number] Author: MATTHEW BANERJEE, CT Service: ? Author [...] PATIENT PRESENTS WITH AN IMPLANTABLE OR ATTACHED PUBLICATIONS DISTRIBUTION CLERK: No ALLERGIES: Reviewed and unchanged CONTRAST ALLERGY: NO. EXAM: MRI - CONTRAST TYPE: GROUP II PERIPHERAL IV DATA: Ambulatory: A peripheral IV was started in the Left antecubital site with a Angio cath: 24 gauge. RADIOLOGY DEPARTMENT: SONALI Exam(s) Completed: Head: Routine Brain SIGNATURE: Matthew Banerjee, CT PATIENT NAME: Rey [place] DATE: August 03, 2023 TIME: 3:06 PM [facility] 08-02-2023 Note HNO ID: [id number] Author: JI FAJARDO MD Service: ? 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 Lead is not being chelated at [...] access for admini (more content not included)... 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 Lead is not being chelated at [...] worsening headaches. 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 Pt can trial nortriptyline 10 mg po qhs in the interim for symptomatic relief. Return 3 months or sooner if needed. Ji Fajardo MD August 04, 2023 2:09 PM documented in this encounter [facility] 08-01-2023 Miscellaneous Notes Patient calling with request for physician referral: Patient referred to Neurology Department. . Patient denies any new or worsening symptoms of which a provider is not aware: Yes. Ac took call back over for scheduling. documented in this encounter [facility] 06-21-2023 Note IA Electrophysiology Consult Note Reason for visit: afib, chest pain , palpitations, new pt HPI: Rey [place] is a 42 y.o. year old with past medical history of Lumbar radiculopathy, GERD, HERIBERTO, fatigue, paroxysmal A-fib,, lead toxicity. Patient was referred to our clinic for A-fib he was seen recently at [facility] and was found to be in A-fib [...] his lead toxicity Patient was referred to [facility] but it seems as though no one [...] no rhonchi C (more content not included)... 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 Clinic number provided. shamir [facility] 06-20-2023 Note This director underwriter sales was cons ulted by Dr. Vogt to assist patient with workers comp claim and resources for lead poisoning. This director underwriter sales met with patient following his visit with Dr. Vogt and provided him the [facility] [employer] of Workers' Compensation contact. This director underwriter sales informed patient resources on lead poisoning will be researched as this director underwriter sales does not currently have information. The patient stated Dr. Vogt provided him with poison control's contact and he plans to call them. This director underwriter sales will research additional resources. [facility] 06-20-2023 Note HEMATOLOGY ONCOLOGY CONSULT NOTE Reason for consult: Chief Complaint: History of present illness: The patient is a 42 y.o. male with PMHx of that presented with lead poisoning. Company makes plaques . Patient melts of the same and 06/01/2023 Lead,Blood,Venipuncture Order: [id number] Component Ref Range & Units 2 wk ago Lead <3.5 mcg/dL 33.8 High Comment: NOTE Patient had lead testing at [facility] and was 43 Upon evaluation, No results found for: WBC , HGB , HCT , MCV , PLT Order: [id number] Component Ref Range & Units 2 wk [...] 0.0 - 0.2 X10E9/L 0.1 Resulting Agency [facility] Specimen Collected: 06/01/23 15:10 Performed by: [employer] Last Resulted: 06/01/23 15:22 Received From: [employer] Result Received: 06/20/23 13:09 View Encounter Received Information Result Report CBC auto differential (Order #[id number]) on 06/01/23 Lab Component SmartPhrase Guide CBC auto differential (Order #[id number]) on 06/01/23 Additional PMHx includes afib passed out work and was admitted in [place] and has been on eliquis since jun 02 by cardiology Hematologic / Oncologic hx: - Family hx of malignancy/blood disorder: none - Primary Completion Supervisor/Oncologist:none - Established diagnoses: Lead poisoning will be [...] list: Patient Active Problem List Diagnosis A-fib ([facility]/HCC) Bigeminy Assessment and Plan: 1. Toxic effect [...] Screening for col (more content not included)... [facility] Evaluation note Diagnosis Worsening headaches- Primary Headache Dizziness Dizziness and giddiness Toxic effect of lead, accidental or unintentional, initial encounter documented in this encounter [facility] Diagnosis Dizziness Dizziness and giddiness documented in this encounter [facility] Summary Purpose Family History No Family [...] HIGH MDM 60 MINUTES Ji F[place]ardo [place] [id number] [place] [address] Referral ID Status Reason Start Date Expiration Date Visits Requested Visits Authorized [id number] Pending Review PCP Requested Referral 11/01/2023 08/01/2024 1 1 Specialty Diagnoses / Procedures Referred By Contac t Referred To Contact [facility] Diagnoses Dizziness Procedures CONSULT TO PHYSICAL THERAPY PHYSICAL THERAPY EVALUATION HIGH COMPLEX 45 MINS Ji Fajardo MD [address] [place], [place] [id number] [facility] [address] [place] [address] Referral ID Status Reason Start Date Expiration Date Visits Requested Visits Authorized [id number] Pending Review Auto-Generat ed Referral 08/02/2023 08/01/2024 1 1 Specialty Diagnoses / Procedures Referred By Contac t Referred To Contact [facility]AG[facility] Diagnoses Worsening headaches Procedures MRI BRAIN WO/W IVCON MRI BRAIN BRAIN STEM W/O W/CONTRAST MATERIAL Ji Fajardo MD [address] [place] [address] [facility] [place] [address] Referral ID Status Reason Start Date Expiration Date V isits Requested Visits Authorized [id number] Closed Auto-Generate d Referral 08/02/2023 08/31/2024 1 1 Additional Source Comments (unrecognized sect ion and content) No Status Records FoundNo Status Records FoundNo Status Records FoundNo Status Records FoundNo Status Records Found INFORMATION SOURCE (unrecogn ized section and content) DATE CREATED AUTHOR 03/31/2020 [employer] [facility] DATE CREATED AUTHOR AUTHOR'S ORGANIZ ATION 09/05/2022 [facility] DATE CREATED AUTHOR AUTHOR'S ORGANIZ ATION 06/05/2023 [facility] DATE CREATED AUTHOR AUTHOR'S ORGANIZ ATION 08/09/2023 [facility] DATE CREATED AUTHOR AUTHOR'S ORGANIZ ATION 08/14/2023 [facility] Source Comments (unrecognize d section and content) In the event this informatio n is protected by the Federal Confidentiality of Alcohol and Drug Abuse Patient Records regulations: The Federal rules restrict any use of the information to criminally investigate or prosecute any alcohol or drug abuse patient.[facility] the event this information is protected by the Federal Confidentiality of Alcohol and Drug Abuse Patient Records regulations: The Federal rules restrict any use of the information to criminally investigate or prosecute any alcohol or drug abuse patient.[facility] the event this information is protected by the Federal Confidentiality of Alcohol and Drug Abuse Patient Records regulations: The Federal rules restrict any use of the information to criminally investigate or prosecute any alcohol or drug abuse patient.[facility] the event this information is protected by the Federal Confidentiality of Alcohol and Drug Abuse Patient Records regulations: The Federal rules restrict any use of the information to criminally investigate or prosecute any alcohol or drug abuse patient.[facility] the event this information is protected by the Federal Confidentiality of Alcohol and Drug Abuse Patient Records regulations: The Federal rules restrict any use of the information to criminally investigate or prosecute any alcohol or drug abuse patient.[facility] Reason for Visit (unrecogniz ed section and content) Reason Comments Referral Request Reason Comments Workers comp Reason Comments New Patient Headaches Specialty Diagnoses / Procedures Referred By Aide lopez Referred To Contact Neurology / HEADACHE Diagnoses Intake Simon / [address], Numbness/tingling, Dizziness, Confusion. Procedures NEW NEUR HEADACHE Ashley Foster, NOODLE CATALYST MAKER [address] [place] [address] [place] [address] [place] [address] Referral ID Status Reason Start Date Expiration Date V isits Requested Visits Authorized [id number] Authorized 07/10/2023 01/10/2024 2 2 Reason Comments PT Eval Specialty Diagnoses / Procedures Referred By Aide t Referred To Contact [facility] Diagnoses Dizziness Procedures CONSULT TO PHYSICAL THERAPY PHYSICAL THERAPY EVALUATION HIGH COMPLEX [address] [place] [address] [place] [address] [facility] [address] [place] [address] Referral ID Status Reason Start Date Expiration Date Visits Requested Visits Authorized [id number] Pending Review Auto-Generat ed Referral 08/02/2023 08/01/2024 1 1 Care Teams (unrecognized sec tion and content) Hangar Attendant Relationship Specialty Start Date End Date Ollie Pitt [address] [place] [facility] [place] [address] 06/26/23 Ashley Foster CNP [address] [place] [facility] [place] [address] Referring Family Medicine 07/26/23 Hangar Attendant Relationship Specialty Start Date End Date Ollie Pitt [address] [place] [facility] [place] [address] 06/26/23 Ashley Foster CNP [address] [place] [facility] [place] [address] Referring Family Medicine 07/26/23 Hangar Attendant Relationship Specialty Start Date End Date Ollie Pitt [address] [place] [facility] [place] [address] 06/26/23 Ashley Foster CNP [address] [place] [facility] [place] [address] Referring Family Medicine 07/26/23 Hangar Attendant Relationship Specialty Start Date End Date Ollie Pitt [address] [place] [facility] [place] [address] 06/26/23 Ashley Foster CNP [address] [place] [facility] [place] [address] Referring Family Medicine 07/26/23 Hangar Attendant Relationship Specialty Start Date End Date Ollie Pitt [address] [place] [id number] 06/26/23 Ashley Foster CNP [address] [place], [place] [phone] Referring Family Medicine 07/26/23 FOR RECORDS PERTAINING [...] BE BASED ON THE PRIMARY CLINICAL RECORDS. [facility]. provides no warranty or guarantee of the accuracy or completeness of information in this document.
== END 2023-12-15 10:01 | disposition home or self-care (01) ==
LOC: US 10:00
PROVIDERS: PCP Family Medicine; Visit Provider Family Medicine
DX: K21.9 Gastro-esophageal reflux disease without esophagitis (principal)
CPT/HCPCS: 76705

== ENCOUNTER 2023-12-15 10:54 | Outpatient (OUT) | payer OTHER, SELFPAY ==
--- OUTSIDE RECORDS SUMMARY | 2023-12-15 11:11 | XMS_ITS | CCD ---
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 Name Role Phone LATIA ., DR OSBORN [...] Consulting Unavailable GENE ., BEV Attending Unavailable EGNE ., BEV Consulting Unavailable MARLYS MUNOZ Consulting [...] Ollie Pitt Unavailable Ashley Foster CNP Unavailable [phone] INDU VOGT Attending Unavailable OLLIE PITT [...] Range Facility CNTHERAPY 08-10-2023 CNTHERAPY OT/PT/Speech Visit ([facility]) REY BAXTER ([id number]) 1980 M Date Time Provider Department 08/10/23 9:30 AM JEAN VALENCIA [facility] Date Time Provider Department Center 08/10/2023 9:30 AM [id number] VALENCIA [facility] Reason for Visit: PT Eval [...] 1 capsule by mouth daily at bedtime. 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 Author Type: Physical Therapist Type: Therapy (PT/OT/Speech/Resp) Filed: 08/10/2023 10:06 Note Text: Program_ID:[id number] Access Code: [email or web address] URL: [email or web address] Date: 08-10-2023 Prepared By: Jean Valencia Program [...] - 3 sets - 10 reps Normal [facility] Office Visiton 08-08-2023 Follow-up visit [id number] Rey Baxter 1980 M Date Provider Department Center 08/08/2023 [facility] [place] [facility] [place] ALBERTO [facility] Family History Problem Relation Age of Onset Lupus Mother Muscular dystrophy Mother Diabetes Other Family Status - Relation Status Age at Mother Other Level of Service:10400 ID OFFICE/OUTPATIENT NEW MODERATE MDM 45 MINUTES Normal [facility] Yumiko 08-04-2023 KAROLINAN Telephone (RUDY) REY BAXTER ([id number]) 1980 M Date Time Provider Department 08/04/23 JI FAJARDO During your visit today, we recorded the following information about you: Zander Denson MA 08/04/2023 9:09 AM Signed Patient records received via electronic fax. Uploaded to [employer] via [employer]. Please review in scanned documents tab of [...] WO and W contrast I Von 08-03-2023 [facility] MRI BRAIN WO/W IVCONon 08-02 MRI BRAIN [...] paranasal sinus inflammatory changes. Otherwise normal study. 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 Transcribe Date/Time: Aug 03 2023 3:53P Dictated by : LUIS ALBERTO SMITH MD This examination was interpreted and the report reviewed and electronically signed by: LUIS ALBERTO SMITH MD on Aug 03 2023 3:57PM EST [id number] Normal [facility] CNOVon 08-02-2023 CNOV Office Visit ([facility]) JULIANNEREY Mcdaniels ([id number]) 1980 M Date Time Provider Department 08/02/23 4:00 PM JI FAJARDO [facility] During your visit today, we recorded the following information about you: Pulse Respiration Blood pressure Weight 74/minute 18/minute 115/74 72.4 kg Height 1.778 m Ji Fajardo MD 08/04/2023 2:09 PM Signed [facility] NEW EVALUATION August 04, 2023 4:00 PM Pt is 43 year old male from [place], [place] who presents with headaches that appears subsequent to 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 Lead is not being chelated at [...] iv contrast (more content not included)... Normal [facility] CNPNon 08-02-2023 CNPN Telephone ([facility]) REY BAXTER ([id number]) 1980 M Date Time Provider Department 08/02/23 [...] Encounter Status:Closed by ZANDER DENSON on 08/03/23 [facility] 36on 06-22-2023 36 Per Ollie Pitt via [...] so stress test just needs done catia. [facility] 36 Zywie called this morning to make [...] the entire left side of his body. [facility] Office Visiton 06-21-2023 Follow-up visit [id number] Rey Baxter 1980 M Date Provider Department Center 06/21/2023 1596-OLLIE PITT [facility] Family History Problem Relation Age of Onset Lupus Mother Muscular dystrophy Mother Diabetes Other Family Status - Relation Status Age at Mother Other Level of Service:17850 ID OFFICE/OUTPATIENT NEW MODERATE MDM 45 MINUTES Reason for Visit and Comments: New Patient [632] - A Fib [facility] 37on 06-20-2023 37 1) social work 2) workers comp 3) CT abd 3) colonoscopy 4) neurologist 5) labs 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 7) to keep follow up with the current lead poisoning expert 80 please reach out tp poison control [place] for direction [phone] Normal [facility] CBC AND AUTO DIFFon 06-02-19 24 ABSOLUTE BASOPHIL 0.1 X10E9/L Normal 0.0-0.2 [facility] Comment on above: Performed By: #### C BCA, CMP, 38919-0, PINR, 77127-3, 04741-6, 07457-5, 79788-5, THYR #### [facility] ([id number]) [address] [place] [address] 80740 ABSOLUTE NEUTROPHIL 3.9 X10E9/L Normal 1.5-6.6 [facility] Comment on above: Performed By: #### C BCA, CMP, 34173-9, PINR, 20874-6, 96940-0, 29050-9, 84762-0, THYR #### [facility] ([id number]) [address] [place] [address] 06257 Basophils/100 WBC (Bld) 0.8 % Normal [facility] Comment on above: Performed By: #### C BCA, CMP, 58573-2, PINR, 48838-3, 86475-1, 10166-9, 09872-9, THYR #### [facility] ([id number]) [address] [place] [address] 15587 Eosinophils (Bld) [#/Vol] 0.1 10*3/uL Normal 0.0-0.4 [facility] Comment on above: Performed By: #### C BCA, CMP, 20586-7, PINR, 84413-2, 66716-1, 04501-1, 12516-9, THYR #### [facility] ([id number]) [address] [place] [address] 21357 Eosinophils/100 WBC (Bld) 1.4 % Normal [facility] Comment on above: Performed By: #### C BCA, CMP, 24599-5, PINR, 20200-9, 42350-0, 70196-2, 02747-6, THYR #### [facility] ([id number]) [address] [place] [address] 13710 Erythrocyte distribution width (RBC) [Ratio] 13.2 % Normal 11.5-15.0 [facility] Comment on above: Performed By: #### C BCA, CMP, 19717-8, PINR, 95101-5, 39086-5, 63920-1, 37754-1, THYR #### [facility] ([id number]) [address] [place] [address] 66258 Hematocrit (Bld) [Volume fraction] 40.7 % Normal 39-49 [facility] Comment on above: Performed By: #### C BCA, CMP, 96657-1, PINR, 80439-5, 36517-4, 77965-2, 07426-7, THYR #### [facility] ([id number]) [address] [place] [address] 01130 Hemoglobin (Bld) [Mass/Vol] 14.2 g/dL Normal 13.0-17.0 [facility] Comment on above: Performed By: #### C BCA, CMP, 42799-0, PINR, 57104-8, 57163-3, 87455-0, 03216-2, THYR #### [facility] ([id number]) [address] [place] [address] 60626 Lymphocytes (Bld) [#/Vol] 2.2 10*3/uL Normal 1.0-3.5 [facility] Comment on above: Performed By: #### C BCA, CMP, 48264-9, PINR, 82906-4, 39485-5, 57672-3, 82331-8, THYR #### [facility] ([id number]) [address] [place] [address] Lymphocytes/100 WBC (Bld) 31.4 % Normal [facility] Comment on above: Performed By: #### C BCA, CMP, 23712-8, PINR, 82438-8, 40689-6, 66558-0, 17255-8, THYR #### [facility] ([id number]) [address] [place] [address] 53051 MCH (RBC) [Entitic mass] 30.7 pg Normal 27-34 [facility] Comment on above: Performed By: #### C BCA, CMP, 30272-8, PINR, 94877-9, 58737-0, 51066-6, 83172-7, THYR #### [facility] ([id number]) [address] [place] [address] 18016 MCHC (RBC) [Mass/Vol] 34.9 g/dL Normal 32-36 [facility] Comment on above: Performed By: #### C BCA, CMP, 18733-6, PINR, 87584-9, 00904-7, 13185-2, 56570-2, THYR #### [facility] ([id number]) [address] [place] [address] 77200 MCV (RBC) [Entitic vol] 88 fL Normal 80-100 [facility] Comment on above: Performed By: #### C BCA, CMP, 74572-0, PINR, 28080-3, 87772-7, 30180-3, 11295-8, THYR #### [facility] ([id number]) [address] [place] [address] 62713 Monocytes (Bld) [#/Vol] 0.7 10*3/uL Normal 0-0.9 [facility] Comment on above: Performed By: #### C BCA, CMP, 53497-1, PINR, 03149-7, 05351-4, 51414-4, 92020-9, THYR #### [facility] ([id number]) [address] [place] [address] 70364 Monocytes/100 WBC (Bld) 10.7 % Normal [facility] Comment on above: Performed By: #### C BCA, CMP, 14318-1, PINR, 45199-6, 04667-9, 32320-3, 96252-7, THYR #### [facility] ([id number]) [address] [place] [address] 19787 Neutrophils/100 WBC (Bld) 55.7 % Normal [facility] Comment on above: Performed By: #### C BCA, CMP, 51622-3, PINR, 03632-0, 21119-8, 34132-4, 14700-5, THYR #### [facility] ([id number]) [address] [place] [address] 05214 Platelet mean volume (Bld) [Entitic vol] 8.5 fL Normal 7-12 [facility] Comment on above: Performed By: #### C BCA, CMP, 11305-7, PINR, 74282-6, 36489-5, 14616-2, 09711-2, THYR #### [facility] ([id number]) [address] [place] [address] 66970 Platelets (Bld) [#/Vol] 192 10*3/uL Normal 150-450 [facility] Comment on above: Performed By: #### C BCA, CMP, 29434-7, PINR, 28509-6, 03290-5, 94098-3, 41217-8, THYR #### [facility] ([id number]) [address] [place] [address] 54672 RBC COUNT 4.61 X10E12/L Normal 4.10-5.70 [facility] Comment on above: Performed By: #### C BCA, CMP, 46318-3, PINR, 85268-5, 72154-9, 24610-3, 28214-8, THYR #### [facility] ([id number]) [address] [place] [address] 25089 WBC (Bld) [#/Vol] 7.0 10*3/uL Normal 4.0-11.0 [facility] Comment on above: Performed By: #### C BCA, CMP, 43121-9, PINR, 74988-8, 85344-9, 38257-7, 07430-0, THYR #### [facility] ([id number]) [address] [place] [address] 43748 COMPREHENSIVE METABOLIC PANE Nik 06-02-2023 Albumin [Mass/Vol] 4.2 g/dL Normal 3.2-5.3 [facility] Comment on above: Performed By: #### C BCA, CMP, 02745-7, PINR, 88021-5, 30811-0, 09001-5, 53825-5, THYR #### [facility] ([id number]) [address] [place] [address] 04386 ALP [Catalytic activity/Vol] 84 U/L Normal 39-130 [facility] Comment on above: Performed By: #### C BCA, CMP, 64849-5, PINR, 13778-4, 42039-6, 89263-0, 82936-9, THYR #### [facility] ([id number]) [address] [place] [address] 31431 ALT [Catalytic activity/Vol] 27 U/L Normal 0-40 [facility] Comment on above: Performed By: #### C BCA, CMP, 62154-6, PINR, 88479-0, 27203-2, 63627-3, 04962-0, THYR #### [facility] ([id number]) [address] [place] [address] 12223 Anion gap [Moles/Vol] 8 mmol/L Normal 5-15 [facility] Comment on above: Performed By: #### C BCA, CMP, 78871-6, PINR, 38678-2, 46531-0, 22821-5, 94402-5, THYR #### [facility] ([id number]) [address] [place] [address] 45100 AST [Catalytic activity/Vol] 22 U/L Normal 0-41 [facility] Comment on above: Performed By: #### C BCA, CMP, 88725-8, PINR, 65079-1, 52966-3, 81318-1, 00042-8, THYR #### [facility] ([id number]) [address] [place] [address] 49080 Bilirubin [Mass/Vol] 0.8 mg/dL Normal 0.3-1.2 [facility] Comment on above: Performed By: #### C BCA, CMP, 19970-6, PINR, 50458-7, 57203-6, 91842-3, 86167-5, THYR #### [facility] ([id number]) [address] [place] [address] 59097 Calcium [Mass/Vol] 10.0 mg/dL Normal 8.5-10.5 [facility] Comment on above: Performed By: #### C BCA, CMP, 96518-3, PINR, 52053-0, 34340-5, 58192-4, 56426-3, THYR #### [facility] ([id number]) [address] [place] [address] 16606 Chloride [Moles/Vol] 102 mmol/L Normal 98-109 [facility] Comment on above: Performed By: #### C BCA, CMP, 00625-8, PINR, 18652-3, 68873-4, 50971-1, 39674-3, THYR #### [facility] ([id number]) [address] [place] [address] 20101 CO2 [Moles/Vol] 26 mmol/L Normal 22-32 [facility] Comment on above: Performed By: #### C BCA, CMP, 96521-9, PINR, 61296-1, 84667-1, 98558-3, 77700-2, THYR #### [facility] ([id number]) [address] [place] [address] 50354 Creatinine [Mass/Vol] 1.07 mg/dL Normal 0.70-1.20 [facility] Comment on above: Result Comment: METH OD TRACEABLE TO IDMS STANDARD Performed By: #### C BCA, CMP, 06732-1, PINR, 75451-4, 79232-3, 00504-4, 09790-5, THYR #### [facility] ([id number]) [address] [place] [address] 17042 GFR/1.73 sq M.predicted among non-blacks MDRD (S/P/Bld) [Vol rate/Area] 88 mL/min/{1.73_m2} Normal >59 [facility] Comment on above: Result Comment: Reported eGFR is based on the CKD-EPI 2020 equation that does not use a race coefficient. Performed By: #### C BCA, CMP, 93222-9, PINR, 18809-4, 61259-5, 05728-7, 37681-7, THYR #### [facility] ([id number]) [address] [place] [address] 55933 Glucose [Mass/Vol] 94 mg/dL Normal 65-99 [facility] Comment on above: Performed By: #### C BCA, CMP, 31397-0, PINR, 63481-5, 44905-5, 26063-4, 76540-5, THYR #### [facility] ([id number]) [address] [place] [address] 09077 Potassium [Moles/Vol] 4.0 mmol/L Normal 3.5-5.0 [facility] Comment on above: Performed By: #### C BCA, CMP, 65125-8, PINR, 15479-6, 82918-9, 70306-8, 39262-7, THYR #### [facility] ([id number]) [address] [place] [address] 41607 Protein [Mass/Vol] 7.0 g/dL Normal 6.0-8.0 [facility] Comment on above: Performed By: #### C BCA, CMP, 42186-7, PINR, 55395-4, 56795-5, 32130-2, 19455-1, THYR #### [facility] ([id number]) [address] [place] [address] 28410 Sodium [Moles/Vol] 136 mmol/L Normal 134-146 [facility] Comment on above: Performed By: #### C BCA, CMP, 29338-5, PINR, 55366-3, 16007-0, 08334-8, 52994-2, THYR #### [facility] ([id number]) [address] [place] [address] 79375 Urea nitrogen [Mass/Vol] 20 mg/dL Normal 5-23 [facility] Comment on above: Performed By: #### C BCA, CMP, 99097-7, PINR, 44772-6, 11005-2, 59118-7, 89347-1, THYR #### [facility] ([id number]) [address] [place] [address] 64344 MAGNESIUMon 06-02-2023 Magnesium [Mass/Vol] 2.1 mg/dL Normal 1.8-2.6 [facility] Comment on above: Performed By: #### C BCA, CMP, 88909-2, PINR, 93367-5, 99922-1, 92509-1, 66632-4, THYR #### [facility] ([id number]) [address] [place] [address] 59588 TROPONIN Ion 06-02-2023 Troponin I.cardiac [Mass/Vol] ng/mL Normal 0.00-0.04 [facility] Comment on above: Performed By: #### C BCA, CMP, 51079-2, PINR, 90432-6, 04022-0, 41980-7, 47387-7, THYR #### [facility] ([id number]) [address] [place] [address] 33560 CBC AND AUTO DIFFon 06-01-19 24 ABSOLUTE BASOPHIL 0.1 X10E9/L Normal 0.0-0.2 [facility] Comment on above: Performed By: #### C BCA, CMP, 29957-1, PINR, 56280-5, 61963-5, 01736-6, 70470-6, THYR #### [facility] ([id number]) [address] [place] [address] 39271 ABSOLUTE NEUTROPHIL 5.1 X10E9/L Normal 1.5-6.6 [facility] Comment on above: Performed By: #### C BCA, CMP, 54542-5, PINR, 35999-7, 84377-6, 83441-4, 10647-8, THYR #### [facility] ([id number]) [address] [place] [address] [place] [address] Basophils/100 WBC (Bld) 0.8 % Normal [facility] Comment on above: Performed By: #### C BCA, CMP, 50726-8, PINR, 94088-5, 56761-0, 17324-5, 16774-4, THYR #### [facility] ([id number]) [address] [place] [address] 21222 Eosinophils (Bld) [#/Vol] 0.1 10*3/uL Normal 0.0-0.4 [facility] Comment on above: Performed By: #### C BCA, CMP, 87518-1, PINR, 41997-1, 87421-9, 52892-1, 95649-3, THYR #### [facility] ([id number]) [address] [place] [address] 58607 Eosinophils/100 WBC (Bld) 1.1 % Normal [facility] Comment on above: Performed By: #### C BCA, CMP, 81549-4, PINR, 92738-3, 03932-9, 43505-7, 64009-5, THYR #### [facility] ([id number]) [address] [place] [address] 97315 Erythrocyte distribution width (RBC) [Ratio] 13.0 % Normal 11.5-15.0 [facility] Comment on above: Performed By: #### C BCA, CMP, 93372-0, PINR, 83140-5, 82715-5, 34976-7, 42417-9, THYR #### [facility] ([id number]) [address] [place] [address] 05006 Hematocrit (Bld) [Volume fraction] 41.5 % Normal 39-49 [facility] Comment on above: Performed By: #### C BCA, CMP, 66757-8, PINR, 89370-2, 76470-9, 62783-1, 86262-5, THYR #### [facility] ([id number]) [address] [place] [address] 11391 Hemoglobin (Bld) [Mass/Vol] 14.6 g/dL Normal 13.0-17.0 [facility] Comment on above: Performed By: #### C BCA, CMP, 96514-2, PINR, 53466-5, 21445-3, 79951-1, 11741-3, THYR #### [facility] ([id number]) [address] [place] [address] 57577 Lymphocytes (Bld) [#/Vol] 1.7 10*3/uL Normal 1.0-3.5 [facility] Comment on above: Performed By: #### C BCA, CMP, 40331-9, PINR, 59733-9, 87217-7, 56508-4, 08646-7, THYR #### [facility] ([id number]) [address] [place] [address] 21431 Lymphocytes/100 WBC (Bld) 22.2 % Normal [facility] Comment on above: Performed By: #### C BCA, CMP, 48862-5, PINR, 68606-6, 87414-7, 74816-1, 13175-5, THYR #### [facility] ([id number]) [address] [place] [address] 07410 MCH (RBC) [Entitic mass] 30.4 pg Normal 27-34 [facility] Comment on above: Performed By: #### C BCA, CMP, 48801-0, PINR, 21341-2, 96299-0, 98606-0, 43657-0, THYR #### [facility] ([id number]) [address] [place] [address] 53265 MCHC (RBC) [Mass/Vol] 35.1 g/dL Normal 32-36 [facility] Comment on above: Performed By: #### C BCA, CMP, 46187-1, PINR, 83813-4, 72388-1, 90585-6, 72084-1, THYR #### [facility] ([id number]) [address] [place] [address] 03954 MCV (RBC) [Entitic vol] 87 fL Normal 80-100 [facility] Comment on above: Performed By: #### C BCA, CMP, 74689-2, PINR, 16765-3, 77125-8, 89475-5, 68804-7, THYR #### [facility] ([id number]) [address] [place] [address] 40554 Monocytes (Bld) [#/Vol] 0.6 10*3/uL Normal 0-0.9 [facility] Comment on above: Performed By: #### C BCA, CMP, 26058-6, PINR, 20785-3, 34151-2, 69035-5, 48855-1, THYR #### [facility] ([id number]) [address] [place] [address] 02417 Monocytes/100 WBC (Bld) 7.8 % Normal [facility] Comment on above: Performed By: #### C BCA, CMP, 46184-6, PINR, 46353-0, 96762-0, 23271-1, 82617-8, THYR #### [facility] ([id number]) [address] [place] [address] 55216 Neutrophils/100 WBC (Bld) 68.1 % Normal [facility] Comment on above: Performed By: #### C BCA, CMP, 29874-7, PINR, 89359-7, 70941-9, 69059-9, 76470-8, THYR #### [facility] ([id number]) [address] [place] [address] 62597 Platelet mean volume (Bld) [Entitic vol] 8.3 fL Normal 7-12 [facility] Comment on above: Performed By: #### C BCA, CMP, 20586-4, PINR, 29991-4, 16252-8, 15496-0, 79837-8, THYR #### [facility] ([id number]) [address] [place] [address] 66730 Platelets (Bld) [#/Vol] 207 10*3/uL Normal 150-450 [facility] Comment on above: Performed By: #### C BCA, CMP, 18882-1, PINR, 02016-9, 78889-3, 32720-9, 65005-1, THYR #### [facility] ([id number]) [address] [place] [address] 53245 RBC COUNT 4.79 X10E12/L Normal 4.10-5.70 [facility] Comment on above: Performed By: #### C BCA, CMP, 90408-0, PINR, 77292-4, 63245-8, 14759-3, 79347-0, THYR #### [facility] ([id number]) [address] [place] [address] 85929 WBC (Bld) [#/Vol] 7.5 10*3/uL Normal 4.0-11.0 [facility] Comment on above: Performed By: #### C BCA, CMP, 17198-8, PINR, 17622-8, 79811-0, 10364-6, 66950-1, THYR #### [facility] ([id number]) [address] [place] [address] 39762 COMPREHENSIVE METABOLIC PANE Nik 06-01-2023 Albumin [Mass/Vol] 5.0 g/dL Normal 3.2-5.3 [facility] Comment on above: Performed By: #### C BCA, CMP, 80549-5, PINR, 20057-2, 17607-9, 23241-9, 52845-9, THYR #### [facility] ([id number]) [address] [place] [address] 35220 ALP [Catalytic activity/Vol] 90 U/L Normal 39-130 [facility] Comment on above: Performed By: #### C BCA, CMP, 91472-6, PINR, 90447-0, 96461-8, 88823-0, 67478-9, THYR #### [facility] ([id number]) [address] [place] [address] 61453 ALT [Catalytic activity/Vol] 32 U/L Normal 0-40 [facility] Comment on above: Performed By: #### C BCA, CMP, 05298-1, PINR, 16815-4, 92941-6, 12750-7, 65246-9, THYR #### [facility] ([id number]) [address] [place] [address] 59277 Anion gap [Moles/Vol] 7 mmol/L Normal 5-15 [facility] Comment on above: Performed By: #### C BCA, CMP, 51668-4, PINR, 36416-1, 16495-0, 70654-5, 78430-2, THYR #### [facility] ([id number]) [address] [place] [address] 56234 AST [Catalytic activity/Vol] 27 U/L Normal 0-41 [facility] Comment on above: Performed By: #### C BCA, CMP, 23162-6, PINR, 36041-0, 58159-5, 35579-2, 69717-0, THYR #### [facility] ([id number]) [address] [place] [address] 09722 Bilirubin [Mass/Vol] 0.8 mg/dL Normal 0.3-1.2 [facility] Comment on above: Performed By: #### C BCA, CMP, 70354-9, PINR, 98392-8, 81354-8, 78271-7, 69426-4, THYR #### [facility] ([id number]) [address] [place] [address] 99608 Calcium [Mass/Vol] 10.1 mg/dL Normal 8.5-10.5 [facility] Comment on above: Performed By: #### C BCA, CMP, 64663-5, PINR, 03181-1, 24499-3, 95710-4, 62958-9, THYR #### [facility] ([id number]) [address] [place] [address] 45640 Chloride [Moles/Vol] 103 mmol/L Normal 98-109 [facility] Comment on above: Performed By: #### C BCA, CMP, 58003-7, PINR, 40875-5, 71669-1, 88932-6, 82279-4, THYR #### [facility] ([id number]) [address] [place] [address] 40473 CO2 [Moles/Vol] 24 mmol/L Normal 22-32 [facility] Comment on above: Performed By: #### C BCA, CMP, 66315-4, PINR, 97343-6, 85699-6, 28247-5, 65630-2, THYR #### [facility] ([id number]) [address] [place] [address] 14508 Creatinine [Mass/Vol] 1.18 mg/dL Normal 0.70-1.20 [facility] Comment on above: Result Comment: METH OD TRACEABLE TO IDMS STANDARD Performed By: #### C BCA, CMP, 56933-2, PINR, 55992-4, 46675-0, 45616-8, 12811-6, THYR #### [facility] ([id number]) [address] [place] [address] 34071 GFR/1.73 sq M.predicted among non-blacks MDRD (S/P/Bld) [Vol rate/Area] 78 mL/min/{1.73_m2} Normal >59 [facility] Comment on above: Result Comment: Reported eGFR is based on the CKD-EPI 2020 equation that does not use a race coefficient. Performed By: #### C BCA, CMP, 38367-0, PINR, 63712-5, 05755-1, 65974-5, 13924-0, THYR #### [facility] ([id number]) [address] [place] [address] 61818 Glucose [Mass/Vol] 86 mg/dL Normal 65-99 [facility] Comment on above: Performed By: #### C BCA, CMP, 67613-6, PINR, 86021-9, 66110-7, 44746-8, 84011-0, THYR #### [facility] ([id number]) [address] [place] [address] 62848 Potassium [Moles/Vol] 3.8 mmol/L Normal 3.5-5.0 [facility] Comment on above: Performed By: #### C BCA, CMP, 17382-6, PINR, 31760-7, 44488-2, 65586-7, 34102-6, THYR #### [facility] ([id number]) [address] [place] [address] 20316 Protein [Mass/Vol] 7.8 g/dL Normal 6.0-8.0 [facility] Comment on above: Performed By: #### C BCA, CMP, 16489-4, PINR, 67123-8, 90919-8, 71592-5, 79688-3, THYR #### [facility] ([id number]) [address] [place] [address] 65665 Sodium [Moles/Vol] 134 mmol/L Normal 134-146 [facility] Comment on above: Performed By: #### C BCA, CMP, 40611-4, PINR, 82482-6, 32137-5, 49247-9, 53868-7, THYR #### [facility] ([id number]) [address] [place] [address] 75583 Urea nitrogen [Mass/Vol] 16 mg/dL Normal 5-23 [facility] Comment on above: Performed By: #### C BCA, CMP, 57367-5, PINR, 96615-4, 80131-3, 50962-3, 30843-8, THYR #### [facility] ([id number]) [address] [place] [address] 17963 DRUG SCREEN, URINEon 024 AMPHETAMINE/METHAMP Negative Normal NEG [facility] Comment on above: Result Comment: AMPH /METH screening cut off = 1000 ng/mL Performed By: #### C BCA, CMP, 60699-4, PINR, 93249-1, 19621-3, 91592-5, 94427-0, THYR #### [facility] ([id number]) [address] [place] [address] 15012 BARBITURATES Negative Normal NEG [facility] Comment on above: Result Comment: Yen iturates screening cut off value = 200 ng/mL Performed By: #### C BCA, CMP, 44267-2, PINR, 29133-6, 64730-3, 46198-1, 00300-8, THYR #### [facility] ([id number]) [address] [place] [address] 60132 BENZODIAZEPINES Negative Normal NEG [facility] Comment on above: Result Comment: Carlos odiazepines screening cut off value = 200 ng/mL Performed By: #### C BCA, CMP, 82204-0, PINR, 25885-3, 59426-0, 19121-5, 29919-6, THYR #### [facility] ([id number]) [address] [place] [address] 36109 CANNABINOIDS Negative Normal NEG [facility] Comment on above: Result Comment: Shirlene abinoids/THC screening cut off value = 50 ng/mL Performed By: #### C BCA, CMP, 03314-5, PINR, 91194-0, 07665-0, 35628-4, 95847-8, THYR #### [facility] ([id number]) [address] [place] [address] 62801 COCAINE METABOLITE Negative Normal NEG [facility] Comment on above: Result Comment: Coca ine screening cut off value = 300 ng/mL Performed By: #### C BCA, CMP, 76861-8, PINR, 97516-9, 87266-5, 93905-3, 35700-9, THYR #### [facility] ([id number]) [address] [place] [address] 03266 ECSTASY Negative Normal NEG [facility] Comment on above: Result Comment: Ecst asy screening cut off value = 500 ng/mL This report is intended for use in clinical monitoring or management of patients. Performed By: #### C BCA, CMP, 32032-0, PINR, 55738-1, 55393-5, 40838-7, 27376-1, THYR #### [facility] ([id number]) [address] [place] [address] 52533 METHADONE Negative Normal NEG [facility] Comment on above: Result Comment: Meth adone screening cut off value = 300 ng/mL. Performed By: #### C BCA, CMP, 58224-5, PINR, 85427-1, 51053-3, 30184-5, 52921-2, THYR #### [facility] ([id number]) [address] [place] [address] 24315 OPIATES Negative Normal NEG [facility] Comment on above: Result Comment: Opia yolande screening cut off value = 300 ng/mL NOTE: This test is used for the detection of codeine, hydrocodone (>1000 ng/mL), morphine and hydromorphone (>900 ng/mL) in urine. Performed By: #### C BCA, CMP, 92915-7, PINR, 17945-1, 26218-0, 44704-0, 76914-5, THYR #### [facility] ([id number]) [address] [place] [address] 09528 OXYCODONE Negative Normal NEG [facility] Comment on above: Result Comment: Oxyc odone screening cut off value = 300 ng/mL NOTE: This test is used for the detection of oxycodone and oxymorphone in urine. Performed By: #### C BCA, CMP, 34836-7, PINR, 78481-0, 81276-8, 74378-6, 57575-7, THYR #### [facility] ([id number]) [address] [place] [address] 44239 PHENCYCLIDINE Negative Normal NEG [facility] Comment on above: Result Comment: Phen cyclidine screening cut off value = 25 ng/mL Performed By: #### C MERCEDES, ERIK, 01036-9, PINR, 19258-8, 84285-2, 03795-0, 51695-1, THYR #### [facility] ([id number]) [address] [place] [address] 20809 Fibrin D-dimer DDU (PPP) [Ma ss/Vol]on 06-01-2023 D DIMER <150 Normal <255 [facility] Comment on above: Result Comment: Results <255 ng/mL DDU: The presence of a VTE can safely be excluded with a negative D-Dimer result and Wells score. A negative result doesn't exclude the possibility of DIC. The test be repeated along with other diagnostic tests if the patient's symptoms persist or worsen. [email or web address] Performed By: #### C MERCEDES, ERIK, 09134-8, PINR, 30269-1, 46823-1, 88994-8, 52010-7, THYR #### [facility] ([id number]) [address] [place] [address] 14220 Lead (BldV) [Mass/Vol]on LEAD, VENOUS 33.8 mcg/dL High <3.5 [facility] Comment on above: Result Comment: NOTE ADDITIONAL INFORMATION Testing performed by Inductively Coupled Plasma-Mass Spectrometry (ICP-MS). This test was developed and its performance characteristics determined by [facility] in a manner consistent with CLIA requirements. This test has not been cleared or approved by the U.S. Food and Drug Administration. Performed By: #### C BCA, CMP, 28423-9, PINR, 93490-6, 97461-5, 75826-7, 10110-9, THYR #### [facility] ([id number]) [address] [place] [address] 82702 MAGNESIUMon 06-01-2023 Magnesium [Mass/Vol] 2.1 mg/dL Normal 1.8-2.6 [facility] Comment on above: Performed By: #### C BCA, CMP, 83474-4, PINR, 43353-0, 80062-1, 06344-4, 87397-7, THYR #### [facility] ([id number]) [address] [place] [address] 01931 Natriuretic peptide B [Mass/ Vol]on 06-01-2023 BRN NATRIURETIC PEP <5 Normal <100.0 [facility] Comment on above: Performed By: #### C BCA, CMP, 68385-8, PINR, 04333-7, 77462-5, 59314-3, 13716-4, THYR #### [facility] ([id number]) [address] [place] [address] 86978 PROTIME AND INRon 06-01-2023 INR Coag (PPP) [Relative time] 1.1 {INR} Normal 0.8-1.1 [facility] Comment on above: Performed By: #### C BCA, CMP, 22530-8, PINR, 06348-1, 74526-3, 77323-3, 91521-6, THYR #### [facility] ([id number]) [address] [place] [address] 06918 PT Coag (PPP) [Time] 12.6 s Normal 9.8-13.2 [facility] Comment on above: Result Comment: NEW REFERENCE RANGE Performed By: #### C BCA, CMP, 99867-9, PINR, 89348-3, 17833-5, 26739-5, 24923-3, THYR #### [facility] ([id number]) [address] [place] [address] 57217 THYROID PROFILEon 06-01-2023 Free T4 [Mass/Vol] 0.88 ng/dL Normal 0.61-1.60 [facility] Comment on above: Performed By: #### C BCA, CMP, 14275-5, PINR, 40249-4, 10835-8, 35578-7, 95894-4, THYR #### [facility] ([id number]) [address] [place] [address] 19634 TSH 1.27 uIU/mL Normal 0.49-4.67 [facility] Comment on above: Performed By: #### C BCA, CMP, 69611-4, PINR, 83886-5, 33908-8, 72489-6, 64067-1, THYR #### [facility] ([id number]) [address] [place] [address] 16042 TROPONIN Ion 06-01-2023 Troponin I.cardiac [Mass/Vol] ng/mL Normal 0.00-0.04 [facility] Comment on above: Performed By: #### C BCA, CMP, 84777-0, PINR, 34983-1, 42432-4, 00541-3, 33246-3, THYR #### [facility] ([id number]) [address] [place] [address] 86381 URN MACROSCOPIC NURon 2023 BILIRUBIN FITO Negative Normal NEG [facility] Comment on above: Performed By: #### C BCA, CMP, 27902-6, PINR, 03039-1, 79710-0, 26328-5, 97819-6, THYR #### [facility] ([id number]) [address] [place] [address] 96887 BLOOD/HGB FITO Negative Normal NEG [facility] Comment on above: Performed By: #### C BCA, CMP, 26083-6, PINR, 15351-6, 39913-1, 70231-2, 61193-1, THYR #### [facility] ([id number]) [address] [place] [address] 36980 GLUCOSE FITO Negative Normal NEG [facility] Comment on above: Performed By: #### C BCA, CMP, 69900-1, PINR, 95676-1, 41123-8, 24892-3, 97656-7, THYR #### [facility] ([id number]) [address] [place] [address] 53247 KETONES FITO 40 mg/dL Abnormal NEG [facility] Comment on above: Performed By: #### C BCA, CMP, 57746-5, PINR, 35532-0, 22838-5, 67593-4, 84732-1, THYR #### [facility] ([id number]) [address] [place] [address] 86050 LEUKOCYTE ESTERASE FITO Negative Normal NEG [facility] Comment on above: Performed By: #### C BCA, CMP, 13766-5, PINR, 77067-1, 39445-7, 11536-0, 46770-7, THYR #### [facility] ([id number]) [address] [place] [address] 74167 NITRITE FITO Negative Normal NEG [facility] Comment on above: Performed By: #### C BCA, CMP, 43865-9, PINR, 35905-9, 88492-2, 53086-1, 89516-0, THYR #### [facility] ([id number]) [address] [place] [address] 55696 PH FITO 5.5 Normal 5.0-8.5 [facility] Comment on above: Performed By: #### C BCA, CMP, 64253-4, PINR, 98938-5, 58778-3, 96672-4, 03830-6, THYR #### [facility] ([id number]) [address] [place] [address] 99085 PROTEIN FITO Negative Normal NEG [facility] Comment on above: Performed By: #### C BCA, CMP, 17562-9, PINR, 86808-6, 45933-7, 01223-6, 56148-4, THYR #### [facility] ([id number]) [address] [place] [address] 76626 SPECIFIC GRAVITY FITO 1.025 Normal 1.003-1.035 [facility] Comment on above: Performed By: #### C BCA, CMP, 94760-2, PINR, 74512-8, 20259-5, 38175-4, 75825-3, THYR #### [facility] ([id number]) [address] [place] [address] 65055 UROBILINOGEN FITO 0.2 eu/dL Normal <1.1 [facility] Comment on above: Performed By: #### C BCA, CMP, 61251-0, PINR, 08423-1, 12660-3, 19209-4, 76506-8, THYR #### [facility] ([id number]) [address] [place] [address] 44213 XR CHEST 1 VWon 06-01-2023 XR CHEST [...] Pardo DO on 06/01/2023 3:32 PM Normal [facility] aPTT Coag (PPP) [Time]on aPTT Coag (Bld) [Time] 35 s Normal 26-37 [facility] Comment on above: Result Comment: NEW REFERENCE RANGE Performed By: #### C BCA, CMP, 01294-3, PINR, 46383-3, 05201-9, 90636-2, 04354-6, THYR #### [facility] ([id number]) [address] [place] [address], [place] [address] LEAD,ADULTon 09-05-2022 Lead, Blood (Adult) 45.4 ug/dL Invalid Interpretation Code 0.0-3.4 [facility] Comment on above: Result Comment: Test ing performed by Inductively coupled plasma/Mass Spectrometry. Verified by repeat analysis Analysis by inductively coupled plasma/mass spectrometry (ICP/MS) Environmental Exposure: WHO Recommendation <20.0 Occupational Exposure: OSHA Lead Std 40.0 CHAZ 30.0 . Detection Limit = 1.0 Performed By: #### L EADA #### [facility] [address] [place] [address] Dr. Rachel Cortez LEAD,ADULTon 09-01-2022 Lead, Blood (Adult) CLOTWB Normal [facility] Comment on above: Result Comment: Test not performed. Whole blood specimen partially or completely clotted. A common cause is insufficient mixing upon collection. Testing performed by Inductively coupled plasma/Mass Spectrometry. contacted Nohelia at your facility on 09-01-2022 Environmental Exposure: WHO Recommendation <20.0 Occupational Exposure: OSHA Lead Std 40.0 CHAZ 30.0 . Detection Limit = 1.0 Performed By: #### I NSULIN #### [facility] [address] [place] [address] Dr. Rachel Cortez LEAD,ADULTon 08-30-2022 Lead, Blood (Adult) CLOTWB Normal [facility] Comment on above: Result Comment: Test not performed. Whole blood specimen partially or completely clotted. A common cause is insufficient mixing upon collection. Testing performed by Inductively coupled plasma/Mass Spectrometry. contacted Taya at your facility on 08-30-2022 Environmental Exposure: WHO Recommendation <20.0 Occupational Exposure: OSHA Lead Std 40.0 CHAZ 30.0 . Detection Limit = 1.0 Performed By: #### L EADA #### [facility] [address] [place] [address] Dr. Rachel Cortez BNPon 08-29-2022 Natriuretic peptide B (Bld) [Mass/Vol] 10.0 pg/mL Normal <=450.0 [facility] Comment on above: Performed By: #### C MP, TSH, BNP #### [facility] [address] [place] [address] Dr. Rachel Cortez CBC AUTO DIFFon 08-29-2022 BASO # 0.0 103/ul Normal 0.0-0.1 [facility] Comment on above: Performed By: #### C BC #### [facility] [address] [place] [address] Dr. Rachel Cortez Basophils/100 WBC (Bld) 0.5 % Normal 0.2-2.0 [facility] Comment on above: Performed By: #### C BC #### [facility] [address] [place] [address] Dr. Rachel Cortez EO # 0.2 103/ul Normal 0.0-0.7 [facility] Comment on above: Performed By: #### C BC #### [facility] [address] [place] [address] Dr. Rachel Cortez Eosinophils/100 WBC (Bld) 2.7 % Normal 0.9-7.0 [facility] Comment on above: Performed By: #### C BC #### [facility] [address] [place] [address] Dr. Rachel Cortez Erythrocyte distribution width (RBC) [Ratio] 12.3 % Normal 11.0-15.0 [facility] Comment on above: Performed By: #### C BC #### [facility] [address] [place] [address] Dr. Rachel Cortez Hematocrit (Bld) [Volume fraction] 40.9 % Critically low 42.0-54.0 [facility] Comment on above: Performed By: #### C BC #### [facility] [address] [place] [address] Dr. Rachel Cortez Hemoglobin (Bld) [Mass/Vol] 13.9 g/dL Critically low 14.0-18.0 [facility] Comment on above: Performed By: #### C BC #### [facility] [address] [place] [address] Dr. Rachel Cortez IG # 0.02 10e3/ul Normal 0.00-0.03 [facility] Comment on above: Performed By: #### C BC #### [facility] [address] [place] [address] Dr. Rachel Cortez IG % 0.3 % Normal 0.0-0.5 [facility] Comment on above: Performed By: #### C BC #### [facility] [address] [place] [address] Dr. Rachel Cortez LYMPH # 1.6 103/ul Normal 1.2-3.8 [facility] Comment on above: Performed By: #### C BC #### [facility] [address] [place] [address] Dr. Rachel Cortez Lymphocytes/100 WBC (Bld) 21.2 % Normal 20.5-60.0 [facility] Comment on above: Performed By: #### C BC #### [facility] [address] [place] [address] Dr. Rachel Cortez MANUAL DIFF REQ NO Normal [facility] Comment on above: Performed By: #### C BC #### [facility] [address] [place] [address] Dr. Rachel Cortez MCH (RBC) [Entitic mass] 30.3 pg Normal 25.9-34.0 [facility] Comment on above: Performed By: #### C BC #### [facility] [address] [place] [address] Dr. Rachel Cortez MCHC (RBC) [Mass/Vol] 34.0 g/dL Normal 29.9-35.2 [facility] Comment on above: Performed By: #### C BC #### [facility] [address] [place] [address] Dr. Rachel Cortez MCV (RBC) [Entitic vol] 89.3 fL Normal 80.0-94.0 [facility] Comment on above: Performed By: #### C BC #### [facility] [address] [place] [address] Dr. Rachel Cortez MONO # 0.6 103/ul Normal 0.3-0.8 [facility] Comment on above: Performed By: #### C BC #### [facility] [address] [place] [address] Dr. Rachel Cortez Monocytes/100 WBC (Bld) 8.6 % Normal 1.7-12.0 [facility] Comment on above: Performed By: #### C BC #### [facility] [address] [place] [address] Dr. Rachel Cortez NEUT # 5.0 103/ul Normal 1.4-6.5 [facility] Comment on above: Performed By: #### C BC #### [facility] [address] [place] [address] Dr. Rachel Cortez Neutrophils/100 WBC (Bld) 66.7 % Normal 43.0-75.0 [facility] Comment on above: Performed By: #### C BC #### [facility] [address] [place] [address] Dr. Rachel Cortez Platelet mean volume (Bld) [Entitic vol] 10.2 fL Normal 9.5-13.5 [facility] Comment on above: Performed By: #### C BC #### [facility] [address] [place] [address] Dr. Rachel Cortez PLT 198 103/ul Normal 150-450 [facility] Comment on above: Performed By: #### C BC #### [facility] [address] [place] [address] Dr. Rachel Cortez RBC 4.58 106/ul Critically low 4.70-6.10 [facility] Comment on above: Performed By: #### C BC #### [facility] [address] [place] [address] Dr. Rachel Cortez WBC 7.5 103/ul Normal 4.0-11.0 [facility] Comment on above: Performed By: #### C BC #### [facility] [address] [place] [address] Dr. Rachel Cortez FREE T4on 08-29-2022 Free T4 [Mass/Vol] 0.84 ng/dL Normal 0.76-1.46 [facility] Comment on above: Performed By: #### I KANDIS FT4 #### [facility] [address] [place] [address] Dr. Rachel RAMon 08-29-2022 Iron [Mass/Vol] 86.0 ug/dL Normal 65.0-175.0 [facility] Comment on above: Performed By: #### I KANDIS FT4 #### [facility] [address] [place] [address] Dr. Rachel Cortez PROF 14(COMP METB)on 023 Albumin [Mass/Vol] 4.0 g/dL Normal 3.4-5.0 [facility] Comment on above: Performed By: #### C MP, TSH, BNP #### [facility] [address] [place] [address] Dr. Rachel Cortez Albumin/Globulin [Mass ratio] 1.2 {ratio} Normal [facility] Comment on above: Performed By: #### C MP, TSH, BNP #### [facility] [address] [place] [address] Dr. Rachel Cortez ALP [Catalytic activity/Vol] 103 U/L Normal 46-116 [facility] Comment on above: Performed By: #### C MP, TSH, BNP #### [facility] [address] [place] [address] Dr. Rachel Cortez ALT [Catalytic activity/Vol] 39 U/L Normal 16-63 [facility] Comment on above: Performed By: #### C MP, TSH, BNP #### [facility] [address] [place] [address] Dr. Rachel Cortez Anion gap [Moles/Vol] 10.2 mmol/L Normal [facility] Comment on above: Performed By: #### C MP, TSH, BNP #### [facility] [address] [place] [address] Dr. Rachel Cortez AST [Catalytic activity/Vol] 20 U/L Normal 15-37 [facility] Comment on above: Performed By: #### C MP, TSH, BNP #### [facility] [address] [address] [address] Rachel Cortez Bilirubin [Mass/Vol] 0.3 mg/dL Normal 0.2-1.0 [facility] Comment on above: Performed By: #### C MP, TSH, BNP #### [facility] [address] [place] [address] Dr. Rahcel Cortez Calcium [Mass/Vol] 9.8 mg/dL Normal 8.5-10.1 [facility] Comment on above: Performed By: #### C MP, TSH, BNP #### [facility] [address] [place] [address] Dr. Rachel Cortez Chloride [Moles/Vol] 105 mmol/L Normal 98-107 [facility] Comment on above: Performed By: #### C MP, TSH, BNP #### [facility] [address] [place] [address] Dr. Rachel Cortez CO2 [Moles/Vol] 29.9 mmol/L Normal 21.0-32.0 [facility] Comment on above: Performed By: #### C MP, TSH, BNP #### [facility] [address] [place] [address] Dr. Rachel Cortez Creatinine [Mass/Vol] 1.19 mg/dL Normal 0.70-1.30 [facility] Comment on above: Performed By: #### C MP, TSH, BNP #### [facility] [address] [place] [address] Dr. Rachel Cortez EGFR-AF KYRGYZ >60 Normal >=60 [facility] Comment on above: Performed By: #### C MP, TSH, BNP #### [facility] [address] [place] [address] Dr. Rachel Cortez EGFR-NON AF KYRGYZ >60 Normal >=60 [facility] Comment on above: Performed By: #### C MP, TSH, BNP #### [facility] [address] [place] [address] Dr. Rachel Cortez Globulin (S) [Mass/Vol] 3.4 g/dL Normal [facility] Comment on above: Performed By: #### C MP, TSH, BNP #### [facility] [address] [place] [address] Dr. Rachel Cortez Glucose [Mass/Vol] 105 mg/dL Normal 74-106 [facility] Comment on above: Performed By: #### C MP, TSH, BNP #### [facility] [address] [place] [address] Dr. Rachel Cortez Potassium [Moles/Vol] 4.1 mmol/L Normal 3.5-5.1 [facility] Comment on above: Performed By: #### C MP, TSH, BNP #### [facility] [address] [place] [address] Dr. Rachel Cortez Protein [Mass/Vol] 7.4 g/dL Normal 6.4-8.2 [facility] Comment on above: Performed By: #### C MP, TSH, BNP #### [facility] [address] [place] [address] Dr. Rachel Cortez Sodium [Moles/Vol] 141 mmol/L Normal 136-145 [facility] Comment on above: Performed By: #### C MP, TSH, BNP #### [facility] [address] [place] [address] Dr. Rachel Cortez Urea nitrogen [Mass/Vol] 16.0 mg/dL Normal 7.0-18.0 [facility] Comment on above: Performed By: #### C MP, TSH, BNP #### [facility] [address] [place] [address] Dr. Rachel Cortez Urea nitrogen/Creatinine [Mass ratio] 13.4 mg/mg Normal [facility] Comment on above: Performed By: #### C MP, TSH, BNP #### [facility] [address] [place] [address] Dr. Rachel Cortez TSHon 08-29-2022 TSH 0.978 uIU/mL Normal 0.358-3.740 [facility] Comment on above: Performed By: #### I NSULIN #### [facility] [address] [place] [address] FACIAL BONES WO [...] WILFRID CAMARENA Date: 2022-08-11 18:30 Normal [facility] CT HEAD WO CONon 08-11-2022 CT [...] MARLYS MUNOZ Date: 2022-08-11 19:49 Normal [facility] INSULINon 05-09-2022 Insulin 9.9 uIU/mL Normal 2.6-24.9 [facility] Comment on above: Performed By: #### I NSULIN #### [facility] [address] [place] [address] Dr. Rachel Cortez CBC AUTO DIFFon 05-07-2022 BASO # 0.1 103/ul Normal 0.0-0.1 [facility] Comment on above: Performed By: #### I NSULIN #### [facility] [address] [place] [address] Dr. Rachel Cortez Basophils/100 WBC (Bld) 0.7 % Normal 0.2-2.0 [facility] Comment on above: Performed By: #### I NSULIN #### [facility] [address] [place] [address] Dr. Rachel Cortez EO # 0.0 103/ul Normal 0.0-0.7 [facility] Comment on above: Performed By: #### I NSULIN #### [facility] [address] [place] [address] Dr. Rachel Cortez Eosinophils/100 WBC (Bld) 0.1 % Critically low 0.9-7.0 [facility] Comment on above: Performed By: #### I NSULIN #### [facility] [address] [place] [address] Dr. Rachel Cortez Erythrocyte distribution width (RBC) [Ratio] 12.2 % Normal 11.0-15.0 [facility] Comment on above: Performed By: #### I NSULIN #### [facility] [address] [place] [address] Dr. Rachel Cortez Hematocrit (Bld) [Volume fraction] 41.1 % Critically low 42.0-54.0 [facility] Comment on above: Performed By: #### I NSULIN #### [facility] [address] [place] [address] Dr. Rachel Cortez Hemoglobin (Bld) [Mass/Vol] 14.1 g/dL Normal 14.0-18.0 [facility] Comment on above: Performed By: #### I NSULIN #### [facility] [address] [place] [address] Dr. Rachel Cortez IG # 0.03 10e3/ul Normal 0.00-0.03 [facility] Comment on above: Performed By: #### I NSULIN #### [facility] [address] [place] [address] Dr. Rachel Cortez IG % 0.4 % Normal 0.0-0.5 [facility] Comment on above: Performed By: #### I NSULIN #### [facility] [address] [place] [address] Dr. Rachel Cortez LYMPH # 2.3 103/ul Normal 1.2-3.8 [facility] Comment on above: Performed By: #### I NSULIN #### [facility] [address] [place] [address] Dr. Rachel Cortez Lymphocytes/100 WBC (Bld) 30.8 % Normal 20.5-60.0 [facility] Comment on above: Performed By: #### I NSULIN #### [facility] [address] [place] [address] Dr. Rachel Cortez MANUAL DIFF REQ NO Normal [facility] Comment on above: Performed By: #### I NSULIN #### [facility] [address] [place] [address] Dr. Rachel Cortez MCH (RBC) [Entitic mass] 29.9 pg Normal 25.9-34.0 [facility] Comment on above: Performed By: #### I NSULIN #### [facility] [address] [place] [address] Dr. Rachel Cortez MCHC (RBC) [Mass/Vol] 34.3 g/dL Normal 29.9-35.2 [facility] Comment on above: Performed By: #### I NSULIN #### [facility] [address] [place] [address] Dr. Rachel Cortez MCV (RBC) [Entitic vol] 87.3 fL Normal 80.0-94.0 [facility] Comment on above: Performed By: #### I NSULIN #### [facility] [address] [place] [address] Dr. Rachel Cortez MONO # 0.7 103/ul Normal 0.3-0.8 [facility] Comment on above: Performed By: #### I NSULIN #### [facility] [address] [place] [address] Dr. Rachel Cortez Monocytes/100 WBC (Bld) 8.9 % Normal 1.7-12.0 [facility] Comment on above: Performed By: #### I NSULIN #### [facility] [address] [place] [address] Dr. Rachel Cortez NEUT # 4.3 103/ul Normal 1.4-6.5 [facility] Comment on above: Performed By: #### I NSULIN #### [facility] [address] [place] [address] Dr. Rachel Cortez Neutrophils/100 WBC (Bld) 59.1 % Normal 43.0-75.0 [facility] Comment on above: Performed By: #### I NSULIN #### [facility] [address] [place] [address] Dr. Rachel Cortez Platelet mean volume (Bld) [Entitic vol] 9.9 fL Normal 9.5-13.5 [facility] Comment on above: Performed By: #### I NSULIN #### [facility] [address] [place] [address] Dr. Rachel Cortez PLT 184 103/ul Normal 150-450 [facility] Comment on above: Performed By: #### I NSULIN #### [facility] [address] [place] [address] Dr. Rachel Cortez RBC 4.71 106/ul Normal 4.70-6.10 [facility] Comment on above: Performed By: #### I NSULIN #### [facility] [address] [place] [address] Dr. Rachel Cortez WBC 7.3 103/ul Normal 4.0-11.0 [facility] Comment on above: Performed By: #### I NSULIN #### [facility] [address] [place] [address] Dr. Rachel Cortez CULTURE URINEon 05-07-2022 CULTURE URINE Culture Observations: LIGHT GROWTH OF MIXED SKIN NILES. NO POTENTIAL PATHOGENS SEEN. Normal [facility] Comment on above: Performed By: #### I NSULIN #### [facility] [address] [place] [address] Dr. Rachel Cortez FREE THYROXINE INDEX T7on FTI 2.07 Normal 1.30-4.50 [facility] Comment on above: Performed By: #### I NSULIN #### [facility] [address] [place] [address] Dr. Rachel Cortez T3U 35.0 % Normal 33.0-40.0 [facility] Comment on above: Performed By: #### I NSULIN #### [facility] [address] [place] [address] Dr. Rachel Cortez T4 [Mass/Vol] 5.90 ug/dL Normal 4.50-12.10 [facility] Comment on above: Performed By: #### I NSULIN #### [facility] [address] [place] [address] Dr. Rachel Cortez GLYCOHEMOGLOBIN A1Con 2022 ADA RECOMMENDATION SEE BELOW Normal [facility] Comment on above: Result Comment: ADA RECOMMENDED LIMIT 4.0 - 6.0 ADA THERAPEUTIC TARGET < 7.0 ACTION SUGGESTED > 7.0 Performed By: #### A 1C #### [facility] [address] [place] [address] Dr. Rachel Cortez Glucose [Mass/Vol] 100 mg/dL Normal [facility] Comment on above: Performed By: #### A 1C #### [facility] [address] [place] [address] Dr. Rachel Cortez HbA1c (Bld) [Mass fraction] 5.1 % Normal 4.5-6.2 [facility] Comment on above: Performed By: #### A 1C #### [facility] [address] [place] [address] Dr. Rachel Cortez IRONon 05-07-2022 Iron [Mass/Vol] 104.0 ug/dL Normal 65.0-175.0 [facility] Comment on above: Performed By: #### I NSULIN #### [facility] [address] [address] [address] Rachel Cortez LIPID PROFILEon 05-07-2022 CHOL-HDL RATIO NORM SEE BELOW Normal [facility] Comment on above: Result Comment: 3.3 - 4.4 LOW RISK 4.4 - 7.1 AVERAGE RISK 7.1 - 11.0 MODERATE RISK >11.0 HIGH RISK Performed By: #### C MP, LIPID #### [facility] [address] [address] [address] Rachel Cortez Cholesterol [Mass/Vol] 147 mg/dL Normal <=200 [facility] Comment on above: Performed By: #### C MP, LIPID #### [facility] [address] [address] [address] Rachel Cortez Cholesterol in HDL [Mass/Vol] 56 mg/dL Normal 40-60 [facility] Comment on above: Performed By: #### C MP, LIPID #### [facility] [address] [address] [address] Rachel Cortez Cholesterol in LDL [Mass/Vol] 77.8 mg/dL Normal [facility] Comment on above: Performed By: #### C MP, LIPID #### [facility] [address] [place] [address] Dr. Rachel Cortez Cholesterol.total/Ch olesterol in HDL [Mass ratio] 2.6 {ratio} Normal [facility] Comment on above: Performed By: #### C MP, LIPID #### [facility] [address] [address] [address] Rachel Cortez HDL NORMAL > or = 60 mg/dl - LOW CARDIOVASCULAR RISK <40 mg/dl - HIGH CARDIOVASCULAR RISK Normal [facility] Comment on above: Performed By: #### C MP, LIPID #### [facility] [address] [address] [address] Rachel Cortez LDL CALC NORMAL SEE BELOW Normal [facility] Comment on above: Result Comment: <100 mg/dl OPTIMAL 100 - 129 mg/dl NEAR OR ABOVE OPTIMAL 130 - 159 mg/dl BORDERLINE HIGH 160 - 189 mg/dl HIGH >190 mg/dl VERY HIGH Performed By: #### C MP, LIPID #### [facility] [address] [place] [address] Dr. Rachel Cortez Triglyceride [Mass/Vol] 66 mg/dL Normal <=150 [facility] Comment on above: Performed By: #### C MP, LIPID #### [facility] [address] [place] [address] Dr. Rachel Cortez VLDL CALC 13.2 mg/dL Normal [facility] Comment on above: Performed By: #### C MP, LIPID #### [facility] [address] [place] [address] Dr. Rachel Cortez PROF 14(COMP METB)on 023 Albumin [Mass/Vol] 4.0 g/dL Normal 3.4-5.0 [facility] Comment on above: Performed By: #### C MP, LIPID #### [facility] [address] [place] [address] Dr. Rachel Cortez Albumin/Globulin [Mass ratio] 1.3 {ratio} Normal [facility] Comment on above: Performed By: #### C MP, LIPID #### [facility] [address] [place] [address] Dr. Rachel Cortez ALP [Catalytic activity/Vol] 86 U/L Normal 46-116 [facility] Comment on above: Performed By: #### C MP, LIPID #### [facility] [address] [place] [address] Dr. Rachel Cortez ALT [Catalytic activity/Vol] 35 U/L Normal 16-63 [facility] Comment on above: Performed By: #### C MP, LIPID #### [facility] [address] [place] [address] Dr. Rachel Cortez Anion gap [Moles/Vol] 9.9 mmol/L Normal [facility] Comment on above: Performed By: #### C MP, LIPID #### [facility] [address] [place] [address] Dr. Rachel Cortez AST [Catalytic activity/Vol] 22 U/L Normal 15-37 [facility] Comment on above: Performed By: #### C MP, LIPID #### [facility] [address] [address] [address] Rachel Cortez Bilirubin [Mass/Vol] 0.4 mg/dL Normal 0.2-1.0 [facility] Comment on above: Performed By: #### C MP, LIPID #### [facility] [address] [address] [address] Rachel Cortez Calcium [Mass/Vol] 10.1 mg/dL Normal 8.5-10.1 [facility] Comment on above: Performed By: #### C MP, LIPID #### [facility] [address] [place] [address] Dr. Rachel Cortez Chloride [Moles/Vol] 107 mmol/L Normal 98-107 [facility] Comment on above: Performed By: #### C MP, LIPID #### [facility] [address] [place] [address] Dr. Rachel Cortez CO2 [Moles/Vol] 30.0 mmol/L Normal 21.0-32.0 [facility] Comment on above: Performed By: #### C MP, LIPID #### [facility] [address] [place] [address] Dr. Rachel Cortez Creatinine [Mass/Vol] 1.16 mg/dL Normal 0.70-1.30 [facility] Comment on above: Performed By: #### C MP, LIPID #### [facility] [address] [place] [address] Dr. Rachel Cortez EGFR-AF KYRGYZ >60 Normal >=60 [facility] Comment on above: Performed By: #### C MP, LIPID #### [facility] [address] [place] [address] Dr. Rachel Cortez EGFR-NON AF KYRGYZ >60 Normal >=60 [facility] Comment on above: Performed By: #### C MP, LIPID #### [facility] [address] [place] [address] Dr. Rachel Cortez Globulin (S) [Mass/Vol] 3.0 g/dL Normal [facility] Comment on above: Performed By: #### C MP, LIPID #### [facility] [address] [address] [address] Rachel Cortez Glucose [Mass/Vol] 88 mg/dL Normal 74-106 [facility] Comment on above: Performed By: #### C MP, LIPID #### [facility] [address] [place] [address] Dr. Rachel Cortez Potassium [Moles/Vol] 3.9 mmol/L Normal 3.5-5.1 [facility] Comment on above: Performed By: #### C MP, LIPID #### [facility] [address] [place] [address] Dr. Rachel Cortez Protein [Mass/Vol] 7.0 g/dL Normal 6.4-8.2 [facility] Comment on above: Performed By: #### C MP, LIPID #### [facility] [address] [place] [address] Dr. Rachel Cortez Sodium [Moles/Vol] 143 mmol/L Normal 136-145 [facility] Comment on above: Performed By: #### C MP, LIPID #### [facility] [address] [place] [address] Dr. Rachel Cortez Urea nitrogen [Mass/Vol] 16.0 mg/dL Normal 7.0-18.0 [facility] Comment on above: Performed By: #### C MP, LIPID #### [facility] [address] [place] [address] Dr. Rachel Cortez Urea nitrogen/Creatinine [Mass ratio] 13.8 mg/mg Normal [facility] Comment on above: Performed By: #### C MP, LIPID #### [facility] [address] [place] [address] Dr. Rachel Cortez TSHon 05-07-2022 TSH 2.417 uIU/mL Normal 0.358-3.740 [facility] Comment on above: Performed By: #### I NSULIN #### [facility] [address] [place] [address] Dr. Rachel Cortez UA RANDOM W/MICROSCOPICon BACTERIA NONE SEEN Normal NONE SEEN [facility] Comment on above: Performed By: #### I NSULIN #### [facility] [address] [address] [address] Rachel Cortez Bilirubin Ql (U) Negative Normal NEGATIVE [facility] Comment on above: Performed By: #### I NSULIN #### [facility] [address] [address] [address] Rachel Cortez CAST NONE SEEN Normal NONE SEEN [facility] Comment on above: Performed By: #### I NSULIN #### [facility] [address] [address] [address] Rachel Cortez Clarity (U) CLEAR Normal CLEAR [facility] Comment on above: Performed By: #### I NSULIN #### [facility] [address] [place] [address] Dr. Rachel Cortez Color (U) YELLOW Normal YELLOW [facility] Comment on above: Performed By: #### I NSULIN #### [facility] [address] [place] [address] Dr. Rachel Cortez Crystals LM Nom (Urine sed) NONE SEEN Normal NONE SEEN [facility] Comment on above: Performed By: #### I NSULIN #### [facility] [address] [place] [address] Dr. Rachel Cortez Epithelial cells LM Ql (Urine sed) NONE SEEN Normal NONE SEEN /RARE [facility] Comment on above: Performed By: #### I NSULIN #### [facility] [address] [place] [address] Dr. Rachel Cortez Glucose Ql (U) Negative Normal NEGATIVE [facility] Comment on above: Performed By: #### I NSULIN #### [facility] [address] [place] [address] Dr. Rachel Cortez Hemoglobin Ql (U) Negative Normal NEGATIVE [facility] Comment on above: Performed By: #### I NSULIN #### [facility] [address] [place] [address] Dr. Rachel Cortez Ketones Ql (U) Negative Normal NEGATIVE [facility] Comment on above: Performed By: #### I NSULIN #### [facility] [address] [place] [address] Dr. Rachel Cortez LEUKOCYTES Negative Normal NEGATIVE [facility] Comment on above: Performed By: #### I NSULIN #### [facility] [address] [address] [address] Rachel Cortez MUCOUS MODERATE Abnormal NONE SEEN [facility] Comment on above: Performed By: #### I NSULIN #### [facility] [address] [address] [address] Rachel Cortez Nitrite Ql (U) Negative Normal NEGATIVE [facility] Comment on above: Performed By: #### I NSULIN #### [facility] [address] [place] [address] Dr. Rachel Cortez pH (U) 6.0 [pH] Normal 5-9 [facility] Comment on above: Performed By: #### I NSULIN #### [facility] [address] [place] [address] Dr. Rachel Cortez RBC NONE SEEN Abnormal 0-2 [facility] Comment on above: Performed By: #### I NSULIN #### [facility] [address] [place] [address] Dr. Rachel Cortez SPEC GRAVITY 1.030 Abnormal 1.005-<=1.025 [facility] Comment on above: Performed By: #### I NSULIN #### [facility] [address] [place] [address] Dr. Rachel Cortez UA PROTEIN Negative Normal NEGATIVE/ TRACE [facility] Comment on above: Performed By: #### I NSULIN #### [facility] [address] [place] [address] Dr. Rachel Cortez Urobilinogen Qn (U) 1.0 {Colby'U}/dL Normal 0.2 - 1. 0 [facility] Comment on above: Performed By: #### I NSULIN #### [facility] [address] [place] [address] Dr. Rachel Cortez WBC NONE SEEN Normal NONE SEEN [facility] Comment on above: Performed By: #### I NSULIN #### [facility] [address] [place] [address] Dr. Rachel Cortez XR LSPINE MIN 4 [...] by: MARINA MAIN Date: 2022-05-06 16:40 Normal [facility] Coding Summary.on 03-31-2020 Coding Summary. CODING DATE: 03/31/2020 FINAL [facility] STATUS: Home (Routine DC) PAYOR: Self Pay [...] [place] Date Saved: 03/31/2020 08:22 am Normal [facility] Consent for Treatmenton Consent for Treatment [id number]:[id number] Normal [facility] Discharge Instructionson Discharge Instructions [id number]:127 Normal [facility] ED Clinical Summaryon 2019 ED Clinical Summary [place] [id number] ED Clinical Summary Person Information Name: REY BAXTER/[facility] Age: 39 Years : 1980 Sex: Male Language: Spanish PCP: Irena Gardner MD Marital Status: Single [...] 03/30/2020 14:05:58 03/30/2020 14:05:58 03/30/2020 14:05:58 ADDRESS: [address] [place] [id number] PHYS DOC NOTES: MEDICAL INFORMATION: Prescriptions Given: New Medications Printed Prescriptions acetaminophen-hydroc odone ([place] 325 mg-5 mg oral tablet) 1 Tablets [...] Follow up: With: Address: When: Irena Gardner [address] [place] [address], [facility] [place] [id number] Business (1) In 3 days 04/02/2020 DIAGNOSIS: Lumbar strain Normal [facility] ED Note-Physicianon 03-30-20 ED Note-Physician Basic Information Time Seen: Darrick Gibbs PA-C 03/30/2020 11:47 Chief Complaint Pt. presents to the ed with c/o left lower back pain that started last night while laying in bed. 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 History of Present Illness 39-year-old male comes [...] and follow-up recommendations Discharge Prescription List Prescriptions [place] 325 mg-5 mg oral tablet, 1 tab(s), Oral, q6hr, PRN predniSONE 20 mg Tab, 60 mg= 3 tab(s), Oral, Daily Robaxin-750 oral tablet, 1500 mg= 2 tab(s), Oral, TID Follow-up With When Contact Information Irena Gardner In 3 days 04/02/2020 [place] [id number] Business (1) Additional Instructions: Patient Education Lumbosacral Strain Attestation Patient seen and evaluated by the physician educational assistant teacher. Attending physician was present in the emergency department and supervised care. This report was transcribed using voice recognition software. Every effort was made to ensure accuracy, however, inadvertently computerized assembler and tester electronics mistakes may be present. Appropriate healthcare PPE [...] oral syrup, 5 mL, Oral, QID, PRN Birmingham 325 mg-5 mg oral tablet, 1 tab(s), [...] acute abnormality Read By: Darrick Gibbs PA-C [facility] Comment on above: Result Comment: Elec [...] Document Reviewed: 11/27/2013 ExitCare? Patient Information ?2015 [employer], [email or web address]. This information is not intended to replace advice given to you by your health care provider. Make sure you discuss any questions you have with your health care provider. Normal [facility] [facility] 020 ED Patient Summary [place] [id number] Patient Discharge Instructions Person Information Name: REY BAXTER Age: 39 Years Arrival Date: 03/30/2020 11:37:37 Discharge Diagnosis: Lumbar strain Primary Care Physician: Irena Gardner MD Provider Information Primary Provider: Shaun Tomlinson DO Advanced Underwater Photographer:Darrick Gibbs PA-C The exam and treatment you received in the Emergency Department were for an urgent problem and are not intended as complete care. It is important that you follow up with a doctor, nurse practitioner, or physician?s educational assistant teacher for ongoing care. If your symptoms become worse or you do not improve as expected and you are unable to reach your usual health care provider, you should return to the Emergency Department. We are available 24 hours a day. REY BAXTER has been given the following list of patient education materials, prescriptions and follow-up instructions: Follow-up Instructions: With: Address: When: Irena Turnermohinder [address] [place] [address], [facility] [place] [id number] [facility] () In 3 days 04/02/2020 In the event that this physician does not participate in your insurance network, please consult with your insurance company to find a nearby participating provider. Patient Education Materials: Lumbosacral Strain A MESSAGE TO ALL PATIENTS REGARDING OPIOIDS PRESCRIPTION OPIOIDS: WHAT YOU NEED TO KNOW Prescription opioids can be used to help relieve vvfdonna-jz-tkivwu pain and are often prescribed following a [...] be struggling with addiction, tell your health home health care worker and ask for guidance or call SAMHSA?S National Helpline at 8-377-321-JVIR. v Source: US Department of Health and Human Services/Center for Disease Control & Prevention [facility] Medications Given: Medication Dose Route orphenadrine 60.00 mg IntraMuscular Left Gluteus Medius acetaminophen-oxycod one 1.00 tab(s) Oral Medication Information: New Medications Printed Prescriptions acetaminophen-hydroc odone ([place] 325 mg-5 mg oral tablet) 1 Tablets [...] Comment: Pharmacy Information: Thank you for choosing [facility] Patient Education Materials: Lumbosacral Strain [...] Document Reviewed: 11/27/2013 ExitCare? Patient Information ?2015 [employer]. This information is not intended to replace advice given to you by your health care provider. Make sure you discuss any questions you have with your health care provider. JULIANNE Mitchell BRIAN S , have received the following patient education materials/instructio ns and have verbalized understanding: Patient Education Materials: Lumbosacral Strain Follow-up Instructions: With: Address: When: Irena Gardner [facility], [place] [place] [address] Business (1) In 3 days 04/02/2020 Patient Signature Date Clinician/Nurse Signature Date 03/30/2020 14:06:00 [facility] Prescriptions/Work Noteson 1 05-31-2019 Prescriptions/Work Notes [id number] 2#1.00CD:127 [facility] XR Spine Lumbosacral 2 or 3 [...] Mullen M.D. Transcribed by: caleb Technologist: MIGUEL [facility] Vital Signs Date Time Vital Sign Value Performing Clinician Myra chisholm 08-02-2023 15:48-0400 Body height 177.8 cm Ji Fajardo MD Work Phone: [facility] 08-02-2023 15:48-0400 Body weight 72.45 kg Ji Fajardo MD Work Phone: [facility] 08-02-2023 15:48-0400 Diastolic blood pressure 74 mm[Hg] Ji Fajardo MD Work Phone: [facility] 08-02-2023 15:48-0400 Heart rate 74 /min Ji Fajardo MD Work Phone: [facility] 08-02-2023 15:48-0400 Respiratory rate 18 /min Ji Fajardo MD Work Phone: [facility] 08-02-2023 15:48-0400 SaO2% (BldA) [Mass fraction] 98 % Ji Fajardo MD Work Phone: [facility] 08-02-2023 15:48-0400 Systolic blood pressure 115 mm[Hg] Ji Fajardo MD Work Phone: [facility] Encounters Encounter Date Encounter Type Care Provider Facility Start: 08-10-2023 End: 08-10-2023 ambulatory JI FAJARDO Facility:[facility] Start: 08-10-2023 End: 08-10-2023 ambulatory Jean Av PT Work Phone: Physical Therapy Comment on above: Dizziness Start: 08-08-2023 End: 08-08-2023 ambulatory [facility] Start: 08-04-2023 Telephone encounter Ji Magdaleno Neurology [facility] Comment on above: Workers comp Start: 08-03-2023 End: 08-03-2023 ambulatory JI FAJARDO Facility:[facility] Start: 08-02-2023 End: 08-02-2023 ambulatory [facility] Facility:[facility] Start: 08-02-2023 End: 08-02-2023 Office outpatient new 45 minutes Ji Fajardo MD Work Phone: Neurology Headache [facility] Comment on above: Worsening headaches (Primary Dx); Dizziness; Toxic effect of lead, accidental or unintentional, initial encounter Start: 08-02-2023 Telephone encounter Ji Magdaleno [facility]rology [facility] Start: 08-01-2023 ambulatory Digna Chavez RN [facility] Start: 08-01-2023 Patient encounter procedure Digna Chavez RN NURSE APPLICATIONS SYSTEMS ENGINEER Comment on above: Referral Request Start: 06-21-2023 End: 06-21-2023 ambulatory OLLIE NAVASMAYTE [facility] Start: 06-20-2023 End: 06-20-2023 ambulatory INDU JOSE MPEDRONATALYA [facility] Start: 06-02-2023 End: 06-03-2023 ambulatory JOHN MEEKS [facility] Start: 06-01-2023 End: 06-03-2023 Emergency department patient visit MAINE FERGUSON [facility] Start: 06-01-2023 End: 06-02-2023 ambulatory IRENA GARDNER [facility] Start: 09-01-2022 End: 09-02-2022 ambulatory [...] above: Performed By: #### L EADA #### [facility] [address] [place] [address] Dr. Rachel Cortez Plan of Treatment Date Care Activity Detail Author Start: 06-02-2026 Diabetes Screening Diabetes Screenin g [facility] Start: 12-24-2023 Influenza vaccination Influenz a Vaccine (Season Ended) [facility] Start: 11-08-2023 End: 11-08-2023 Patient encounter procedure 11/08/2023 11:00 AM EDT Office Visit Neurology [address] [place] [address] Gina Dooley, PILO.PUSHER RUNNER [address] [place] [address] Neurology Start: 07-29-2023 Diabetes Screening Diabetes Screenin g [facility] Start: 07-29-2023 Screening for malign ant neoplasm of colon [facility] Start: 04-24-2023 Behavioral Health Screening Behavioral Health Screening [facility] Start: 12-23-2022 Covid-19 Vaccine ( season) Covid-19 Vaccine ( season) [facility] Start: 2013 Lipid panel Lipid Screening [facility] Start: 1997 Hepatitis B Vaccine (1 of 3 - 19+ 3-dose series) Hepatitis B Vaccine (1 of 3 - 19+ 3-dose series) [facility] Start: 1997 Urine microalbumin profile DTa P,Tdap,Td Vaccine (1 - Tdap) [facility] Start: 1996 Hepatitis C screening Hepatitis C Sc [facility] Start: 1996 HIV screening HIV Screening [facility] Payers Date Payer Category Payer Unknown [id number] 2022 Unknown [id number] 1978 Unknown [id number] 2.16.84 [id number] 1978 Unknown [id number] 2.16.84 [id number] 1978 Unknown [id number] [id number] 1978 Unknown [id number] 2.16.84 [id number] 1978 Unknown [id number] 2.16.84 [id number] 1978 Unknown [id number] 2.16.84 [id number] 1978 Unknown [id number] 2.16.8 [id number] 1978 Unknown [id number] 2.16.8 [id number] 1978 Unknown [id number] 2.16.8 [id number] 1959 Unknown [id number] Social History Date Type Detail Facility Tobacco smoking stat [facility] Tobacco smoking consumption unknown [facility] Start: 1978 Sex Assigned At Not on file [facility] Start: 08-02-2023 Gender identity Not on file [facility] Start: 08-02-2023 Tobacco smoking stat [facility] Never smoked tobacco [facility] Start: 08-02-2023 Tobacco use and exposure Smokeless t obacco non-user [facility] Start: 08-02-2023 History of Social function [facility] National Score (1-10 0), lower number is lower risk 73 [facility] Clinical Notes 06-20-2023 to 08-10-2023 Jean Valencia, ONIEL - 08/10/2023 10:06 AM Jean Crump PT - 08/10/2023 9:30 AM EDTTZander Lozada MA - 08/04/2023 9:08 AM Ji Kauffman MD - 08/02/2023 4:10 PM EDT Note Date & Type Note Facility 08-10-2023 Note HNO ID: [id number] Author: JEAN VALENCIA PT Service: ? Author [...] Planned: (4) Planned Treatment Interventions: Neuromuscular re-education (81447), Manual therapy (58117), Therapeutic activities (97815), Self-usp management (71906), Therapeutic exercise (86614), Patient/Family/Caregiver Education PLAN FOR NEXT VISIT: Patient [...] and vertical head (more content not included)... [facility] 08-10-2023 History of Present illness Narrative Program_ID:[id number] Access Code: [email or web address] URL: [email or web address] Date: 08-10-2023 Prepared By: Jean Valencia Program [...] Planned: (4) Planned Treatment Interventions: Neuromuscular re-education (34367), Manual therapy (21963), Therapeutic activities (04522), Self-usp management (30115), Therapeutic exercise (13551), Patient/Family/Caregiver Education PLAN FOR NEXT VISIT: Patient [...] States/Identifies, Return Demonstration TREATMENT: PT Treatment Interventions: Self-Skilled Nursing Management, Manual Therapy, Neuromuscular Re-Education Evaluation Therapeutic [...] Jean Valencia PT documented in this encounter [facility] 08-08-2023 Note TX Electrophysiology Consult Note Reason for visit: afib, chest pain , palpitations HPI: Rey Baxter is a 43 y.o. year old with past medical history of Lumbar radiculopathy, GERD, HERIBERTO, fatigue, paroxysmal A-fib,, lead toxicity. Patient was referred to our clinic for A-fib he was seen recently at [facility] and was found to be in [...] his lead toxicity Patient was referred to [facility] [place] but it seems as though no one [...] no gallop Systo (more content not included)... [facility] 08-04-2023 Miscellaneous Notes Patient records received via electronic fax. Uploaded to [employer] via [employer]. Please review in scanned documents tab of chart review. Zander Denson MA documented in this encounter [facility] 08-03-2023 Note HNO ID: [id number] Author: MATTHEW BANERJEE, CT Service: ? Author [...] PATIENT PRESENTS WITH AN IMPLANTABLE OR ATTACHED CISTERN ROOM WORKING SUPERVISOR: No ALLERGIES: Reviewed and unchanged CONTRAST ALLERGY: NO. EXAM: MRI - CONTRAST TYPE: GROUP II PERIPHERAL IV DATA: Ambulatory: A peripheral IV was started in the Left antecubital site with a Angio cath: 24 gauge. RADIOLOGY DEPARTMENT: SONALI Exam(s) Completed: Head: Routine Brain SIGNATURE: Matthew Banerjee, CT PATIENT NAME: Rey Baxter DATE: August 03, 2023 TIME: 3:06 PM [facility] 08-02-2023 Note HNO ID: [id number] Author: JI FAJARDO MD Service: ? 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 Lead is not being chelated at [...] access for admini (more content not included)... 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 Lead is not being chelated at [...] worsening headaches. Pt needs MRI-Brain to r/o COMMERCIAL CREDIT HEAD changes from heavy metal toxicity. Pt can trial nortriptyline 10 mg po qhs in the interim for symptomatic relief. Return 3 months or sooner if needed. Ji Fajardo MD August 04, 2023 2:09 PM documented in this encounter [facility] 08-01-2023 Miscellaneous Notes Patient calling with request for physician referral: Patient referred to Neurology Department. . Patient denies any new or worsening symptoms of which a provider is not aware: Yes. Ac took call back over for scheduling. documented in this encounter [facility] 06-21-2023 Note TX Electrophysiology Consult Note Reason for visit: afib, chest pain , palpitations, new pt HPI: Rey Baxter is a 42 y.o. year old with past medical history of Lumbar radiculopathy, GERD, HERIBERTO, fatigue, paroxysmal A-fib,, lead toxicity. Patient was referred to our clinic for A-fib he was seen recently at [facility] and was found to be in [...] his lead toxicity Patient was referred to [facility] [place] but it seems as though no one [...] no rhonchi C (more content not included)... [facility] 06-21-2023 Note TC to APPLICATION DEVELOPER MANAGER internal re ferral for: T56.0X1S (ICD-10-CM) - Toxic effect of lead, accidental or unintentional, sequela PT states he will call back to schedule. Clinic number provided. shamir [facility] 06-20-2023 Note This television writer was cons ulted by Dr. Vogt to assist patient with workers comp claim and resources for lead poisoning. This television writer met with patient following his visit with Dr. Vogt and provided him the [facility] of Workers' Compensation contact. This television writer informed patient resources on lead poisoning will be researched as this television writer does not currently have information. The patient stated Dr. Vogt provided him with poison control's contact and he plans to call them. This television writer will research additional resources. [facility] 06-20-2023 Note HEMATOLOGY ONCOLOGY CONSULT NOTE Reason for consult: Chief Complaint: History of present illness: The patient is a 42 y.o. male with PMHx of that presented with lead poisoning. Company makes plaques . Patient melts of the same and 06/01/2023 Lead,Blood,Venipuncture Order: [id number] Component Ref Range & Units 2 wk ago Lead <3.5 mcg/dL 33.8 High Comment: NOTE Patient had lead testing at [facility] and was 43 Upon evaluation, No results found for: WBC , HGB , HCT , MCV , PLT Order: [id number] Component Ref Range & Units 2 wk [...] 0.0 - 0.2 X10E9/L 0.1 Resulting Agency [facility] Specimen Collected: 06/01/23 15:10 Performed by: [employer] Last Resulted: 06/01/23 15:22 Received From: [facility] Result Received: 06/20/23 13:09 View Encounter Received Information Result Report CBC auto differential (Order #[id number]) on 06/01/23 Lab Component SmartPhrase Guide CBC auto differential (Order #[id number]) on 06/01/23 Additional PMHx includes afib passed out work and was admitted in [place] and has been on eliquis since jun 02 by cardiology Hematologic / Oncologic hx: - Family hx of malignancy/blood disorder: none - Primary Rubbish Collection Supervisor/Oncologist:none - Established diagnoses: Lead poisoning will [...] list: Patient Active Problem List Diagnosis A-fib ([facility]/HCC) Bigeminy Assessment and Plan: 1. Toxic effect [...] Screening for col (more content not included)... [facility] Evaluation note Diagnosis Worsening headaches- Primary Headache Dizziness Dizziness and giddiness Toxic effect of lead, accidental or unintentional, initial encounter documented in this encounter [facility] Diagnosis Dizziness Dizziness and giddiness documented in this encounter [facility] Summary Purpose Family History No Family History [...] HIGH MDM 60 MINUTES [place] F[place] [address] [place] [address] Referral ID Status Reason Start Date Expiration Date Visits Requested Visits Authorized [id number] Pending Review PCP Requested Referral 11/01/2023 08/01/2024 1 1 Specialty Diagnoses / Procedures Referred By Contac t Referred To Contact [facility] Diagnoses Dizziness Procedures CONSULT TO PHYSICAL THERAPY PHYSICAL THERAPY EVALUATION HIGH COMPLEX 45 MINS Ji Fajardo MD [address] [place], [place] [id number] [facility] [place] [address] [place] [address] Referral ID Status Reason Start Date Expiration Date Visits Requested Visits Authorized [id number] Pending Review Auto-Generat ed Referral 08/02/2023 08/01/2024 1 1 Specialty Diagnoses / Procedures Referred By Contac t Referred To Contact [facility] Diagnoses Worsening headaches Procedures MRI BRAIN WO/W IVCON MRI BRAIN BRAIN STEM W/O W/CONTRAST MATERIAL Ji Fajardo MD [address] [place] [id number] [facility] [place] [address] Referral ID Status Reason Start Date Expiration Date V isits Requested Visits Authorized [id number] Closed Auto-Generate d Referral 08/02/2023 08/31/2024 1 1 Additional Source Comments (unrecognized sect ion and content) No Status Records FoundNo Status Records FoundNo Status Records FoundNo Status Records FoundNo Status Records Found INFORMATION SOURCE (unrecogn ized section and content) DATE CREATED AUTHOR 03/31/2020 [facility] DATE CREATED AUTHOR AUTHOR'S ORGANIZ ATION 09/05/2022 [facility] DATE CREATED AUTHOR AUTHOR'S ORGANIZ ATION 06/05/2023 [facility] DATE CREATED AUTHOR AUTHOR'S ORGANIZ ATION 08/09/2023 [facility] DATE CREATED AUTHOR AUTHOR'S ORGANIZ ATION 08/14/2023 [facility] Source Comments (unrecognize d section and content) In the event this informatio n is protected by the Federal Confidentiality of Alcohol and Drug Abuse Patient Records regulations: The Federal rules restrict any use of the information to criminally investigate or prosecute any alcohol or drug abuse patient.[facility] the event this information is protected by the Federal Confidentiality of Alcohol and Drug Abuse Patient Records regulations: The Federal rules restrict any use of the information to criminally investigate or prosecute any alcohol or drug abuse patient.[facility] the event this information is protected by the Federal Confidentiality of Alcohol and Drug Abuse Patient Records regulations: The Federal rules restrict any use of the information to criminally investigate or prosecute any alcohol or drug abuse patient.[facility] the event this information is protected by the Federal Confidentiality of Alcohol and Drug Abuse Patient Records regulations: The Federal rules restrict any use of the information to criminally investigate or prosecute any alcohol or drug abuse patient.[facility] Center[facility] the event this information is protected by the Federal Confidentiality of Alcohol and Drug Abuse Patient Records regulations: The Federal rules restrict any use of the information to criminally investigate or prosecute any alcohol or drug abuse patient.[facility] Reason for Visit (unrecogniz ed section and content) Reason Comments Referral Request Reason Comments Workers comp Reason Comments New Patient Headaches Specialty Diagnoses / Procedures Referred By Aide lopez Referred To Contact Neurology / HEADACHE Diagnoses Intake Simon / [address], Numbness/tingling, Dizziness, Confusion. Procedures NEW NEUR HEADACHE Ashley Foster, PUSHER RUNNER [address] [place] [address] [place] [address] [place] [address] Referral ID Status Reason Start Date Expiration Date V isits Requested Visits Authorized [id number] Authorized 07/10/2023 01/10/2024 2 2 Reason Comments PT Eval Specialty Diagnoses / Procedures Referred By Aide t Referred To Contact [facility] Diagnoses Dizziness Procedures CONSULT TO PHYSICAL THERAPY PHYSICAL THERAPY EVALUATION HIGH COMPLEX [address] [place] [address] [place] [address] [facility] [place] [address] [place] [address] Referral ID Status Reason Start Date Expiration Date Visits Requested Visits Authorized [id number] Pending Review Auto-Generat ed Referral 08/02/2023 08/01/2024 1 1 Care Teams (unrecognized sec tion and content) Advanced Manufacturing Vice President Relationship Specialty Start Date End Date Ollie Pitt [address] [place] [address] 06/26/23 Ashley Foster CNP [address] [place] [facility] [place] [address] Referring Family Medicine 07/26/23 Advanced Manufacturing Vice President Relationship Specialty Start Date End Date Ollie Pitt [address] [place] [address] 06/26/23 Ashley Foster CNP [address] [place] [facility] [place] [address] Referring Family Medicine 07/26/23 [employer] Vice President Relationship Specialty Start Date End Date Ollie Pitt [address] [place] [address] 06/26/23 Ashley Foster CNP [address] [place] [facility] [place] [address] Referring Family Medicine 07/26/23 [employer] Vice President Relationship Specialty Start Date End Date Ollie Pitt [address] [place] [address] 06/26/23 Ashley Foster CNP [address] [place] [facility] [place] [address] Referring Family Medicine 07/26/23 [employer] Vice President Relationship Specialty Start Date End Date Ollie Pitt [address] [place] [id number] 06/26/23 Ashley Foster CNP [address] [place], [place] [id number] Referring Family Medicine 07/26/23 FOR RECORDS PERTAINING [...] BE BASED ON THE PRIMARY CLINICAL RECORDS. [facility]. provides no warranty or guarantee of the accuracy or completeness of information in this document.
[2023-12-18 13:08] LABS: Lead, Blood (Adult) 13.8 ug/dL (0.0-3.4)
== END 2023-12-15 10:55 | disposition home or self-care (01) ==
LOC: LAB 10:56
PROVIDERS: PCP Family Medicine; Visit Provider Family Medicine
DX: R78.71 Abnormal lead level in blood (principal)
CPT/HCPCS: 36415; 83655

== ENCOUNTER 2023-12-29 07:08 | Outpatient (OUT) | payer SELFPAY ==
--- OUTSIDE RECORDS SUMMARY | 2023-12-29 07:10 | XMS_ITS | CCD ---
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 Name Role Phone LATIA ., DR OSBORN Primary Care Unavailable HOY ., DR OSBORN Consulting Unavailable HOY ., DR OSBORN Attending Unavailable HOY ., DR OSBORN Admitting Unavailable HOY ., DR OSBORN Primary Care Unavailable HOY ., DR OSBORN Consulting Unavailable HOY ., DR OBSORN Attending Unavailable HOY ., DR OSBORN Admitting Unavailable ZIEBER, DR MARINA Robles Consulting Unavailable HOY ., DR OSBORN Consulting Unavailable HOY ., DR OSBORN Attending Unavailable HOY ., DR OSBORN Admitting Unavailable HOY ., DR OSBORN Primary Care Unavailable GENE ., BEV Admitting Unavailable HOY ., DR OSBORN Primary Care Unavailable ENYD DEUTSCH Consulting Unavailable GENE ., BEV Attending [...] Ollie Pitt Unavailable Ashley Foster CNP Unavailable [phone] JI FAJARDO Referring Unavailable JI FAJARDO Referring Unavailable JI FAJARDO Attending Unavailable BERNARDO HAYNES Attending Unavailable OLLIE PITT Attending Unavailable LUIS ALBERTO DOWLING Attending Unavailable INDU VOGT Attending Unavailable Medications Current Medications Medication Drug [...] [Other chest pain] Onset: 06-01-2023 Episodic Other upper respiratory infections (1 source) Chronic sinusitis, unspecified; Translations: [CHRONIC SINUSITIS UNSPECIFIED] Onset: 08-15-2022 Chronic Poisoning by nonmedicinal substances (3 sources) 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, accidental (unintentional), initial encounter; Translations: [Toxic effect of unspecified lead compound] Onset: 06-21-2023 08-04-2023 Chronic Sprains and strains (1 source) Strain of muscle, fascia and tendon at neck level, initial encounter; Translations: [STRN MUSC FASC TENDON NECK LEVL INT] Onset: 08-15-2022 Episodic Superficial injury; contusion (1 source) Contusion of nose, initial encounter; Translations: [CONTUSION OF NOSE INITIAL ENCOUNTER] Onset: 08-15-2022 Episodic Syncope (4 sources) Syncope and collapse; Translations: [SYNCOPE AND COLLAPSE] Onset: 09-01-2022 Episodic Unclassified (1 source) Worsening headaches; Translations: [Worsening headaches] Onset: 08-03-2023 Unclassified (1 source) Other supraventricular tachycardia; Translations: [Other supraventricular tachycardia] Onset: 08-08-2023 Past or Other Problems Problem Classification Problem Date Documented Date Episodic/Chronic Diabetes mellitus without complication (1 source) Other abnormal glucose; Translations: [OTHER ABNORMAL GLUCOSE] Onset: 05-13-2022 Episodic Malaise and fatigue (5 sources) Other fatigue; Translations: [OTHER FATIGUE] Onset: 05-07-2022 Episodic Other lower respiratory disease (2 sources) Other forms of dyspnea; Translations: [Other forms of dyspnea] Onset: 06-21-2023 Episodic Other nervous system disorders (1 source) Unspecified disturbances of skin sensation; Translations: [UNS DISTURBANCES OF SKIN SENSATION] Onset: 05-13-2022 Episodic Other screening for suspected conditions (not mental disorders or infectious disease) (3 sources) Encounter for screening for malignant neoplasm of prostate; Translations: [Encounter for screening for malignant neoplasm of colon] Onset: 05-13-2022 Episodic Poisoning by nonmedicinal substances (2 sources) 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, accidental (unintentional), sequela; Translations: [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, accidental (unintentional), sequela] Onset: 06-20-2023 Episodic Spondylosis; intervertebral disc disorders; other back problems (4 sources) Radiculopathy, lumbar region; Translations: [RADICULOPATHY LUMBAR REGION] Onset: 05-06-2022 Episodic Unclassified (1 source) Other supraventricular tachycardia; Translations: [Other supraventricular tachycardia] Onset: 08-08-2023 Results Test Name Value Interpretation Reference Range Facility CNTHERAPYon 08-10-2023 CNTHERAPY OT/PT/Speech Visit ([facility]) REY BAXTER ([id number]) 1980 M Date Time Provider Department 08/10/23 9:30 AM JEAN VALENCIA [facility] Date Time Provider Department Center 08/10/2023 9:30 AM [id number] VALENCIA [facility] Reason for Visit: PT Eval [747] Visit [...] 1 capsule by mouth daily at bedtime. 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 Author Type: Physical Therapist Type: Therapy (PT/OT/Speech/Resp) Filed: 08/10/2023 10:06 Note Text: Program_ID:[id number] Access Code: [email or web address] URL: [email or web address] Date: 08-10-2023 Prepared By: Jean Valencia Program [...] - 3 sets - 10 reps Normal [facility] Office Visiton 08-08-2023 Follow-up visit [id number] Rey Baxter 1980 M Date Provider Department Center 08/08/2023 [place]-LUIS ALBERTO DOWLING [facility] Sandra [facility] Family History Problem Relation Age of Onset Lupus Mother Muscular dystrophy Mother Diabetes Other Family Status - Relation Status Age at Mother Other Level of Service:16649 DC OFFICE/OUTPATIENT NEW MODERATE MDM 45 MINUTES Normal [facility] Yumiko 08-04-2023 KAROLINAN Telephone (RUDY) REY BAXTER ([id number]) 1980 M Date Time Provider Department 08/04/23 JI FAJARDO During your visit today, we recorded the following information about you: Zander Denson MA 08/04/2023 9:09 AM Signed Patient records received via electronic fax. Uploaded to [employer] via [employer]. Please review in scanned documents tab of [...] Status:Closed by ZANDER DENSON on 08/04/23 Normal [facility] MR Brain WO and W contrast I Von 08-03-2023 [facility] MRI BRAIN WO/W IVCONon 08-02 MRI [...] paranasal sinus inflammatory changes. Otherwise normal study. 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 Fitter Gas Pipe: PSCB Transcribe Date/Time: Aug 03 2023 3:53P Dictated by : LUIS ALBERTO SMITH MD This examination was interpreted and the report reviewed and electronically signed by: LUIS ALBERTO SMITH MD on Aug 03 2023 3:57PM EST [id number] Normal [facility] CNOVon 08-02-2023 CNOV Office Visit (PENDING SALE TO [facility]) REY BAXTER ([id number]) 1980 M Date Time Provider Department 08/02/23 4:00 PM JI FAJARDO [facility] During your visit today, we recorded the following information about you: Pulse Respiration Blood pressure Weight 74/minute 18/minute 115/74 72.4 kg Height 1.778 m Ji Fajardo MD 08/04/2023 2:09 PM Signed [facility] NEW EVALUATION August 04, 2023 4:00 PM Pt is 43 year old male from [place], [place] who presents with headaches that appears subsequent to 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 Lead is not being chelated at [...] iv contrast (more content not included)... Normal [facility] CNPNon 08-02-2023 CNPN Telephone ([place]) REY BAXTER ([id number]) 1980 M Date Time Provider Department 08/02/23 [...] Encounter Status:Closed by ZANDER DENSON on 08/03/23 [facility] 36on 06-22-2023 36 Per Ollie Pitt [...] stress test just needs done catia. [facility] 36 Zywie called this morning [...] entire left side of his body. [facility] Office Visiton 06-21-2023 Follow-up visit [id number] Rey Baxter 1980 M Date Provider Department Center 06/21/2023 1596-OLLIE PITT CARD [facility] Family History Problem Relation Age of Onset Lupus Mother Muscular dystrophy Mother Diabetes Other Family Status - Relation Status Age at Mother Other Level of Service:14679 DC OFFICE/OUTPATIENT NEW MODERATE MDM 45 MINUTES Reason for Visit and Comments: New Patient [632] - A Fib [facility] 37on 06-20-2023 37 1) social work 2) workers comp 3) CT abd 3) colonoscopy 4) neurologist 5) labs 6) psychometrician 7) to keep follow up with the current lead poisoning expert 78 please reach out tp poison control [place] for direction [phone] Normal [facility] CBC AND AUTO DIFFon 06-02-19 24 ABSOLUTE BASOPHIL 0.1 X10E9/L Normal 0.0-0.2 [facility] Comment on above: Performed By: #### C BCA, CMP, 93786-9, PINR, 86433-3, 07642-8, 58054-1, 78453-8, THYR #### [facility] ([id number]) [address] [place] [address] 30800 ABSOLUTE NEUTROPHIL 3.9 X10E9/L Normal 1.5-6.6 [facility] Comment on above: Performed By: #### C BCA, CMP, 44932-5, PINR, 67108-8, 18012-9, 65415-1, 67504-2, THYR #### [facility] ([id number]) [address] [place] [address] 21645 Basophils/100 WBC (Bld) 0.8 % Normal [facility] Comment on above: Performed By: #### C BCA, CMP, 11706-1, PINR, 20595-9, 18910-9, 22003-8, 96862-3, THYR #### [facility] ([id number]) [address] [place] [address] 22911 Eosinophils (Bld) [#/Vol] 0.1 10*3/uL Normal 0.0-0.4 [facility] Comment on above: Performed By: #### C BCA, CMP, 80414-3, PINR, 45852-1, 58140-5, 86447-5, 19532-4, THYR #### [facility] ([id number]) [address] [place] [address] 39277 Eosinophils/100 WBC (Bld) 1.4 % Normal [facility] Comment on above: Performed By: #### C BCA, CMP, 35210-5, PINR, 82684-4, 76323-3, 81310-0, 29589-2, THYR #### [facility] ([id number]) [address] [place] [address] 40320 Erythrocyte distribution width (RBC) [Ratio] 13.2 % Normal 11.5-15.0 [facility] Comment on above: Performed By: #### C BCA, CMP, 17856-0, PINR, 74232-4, 00711-3, 99710-2, 25409-6, THYR #### [facility] ([id number]) [address] [place] [address] 16619 Hematocrit (Bld) [Volume fraction] 40.7 % Normal 39-49 [facility] Comment on above: Performed By: #### C BCA, CMP, 54554-4, PINR, 79493-8, 93361-5, 50639-2, 29258-2, THYR #### [facility] ([id number]) [address] [place] [address] 73906 Hemoglobin (Bld) [Mass/Vol] 14.2 g/dL Normal 13.0-17.0 [facility] Comment on above: Performed By: #### C BCA, CMP, 37637-1, PINR, 77791-1, 95942-0, 41569-1, 13486-1, THYR #### [facility] ([id number]) [address] [place] [address] 84614 Lymphocytes (Bld) [#/Vol] 2.2 10*3/uL Normal 1.0-3.5 [facility] Comment on above: Performed By: #### C BCA, CMP, 76605-8, PINR, 30862-9, 22317-2, 64388-3, 20130-2, THYR #### [facility] ([id number]) [address] [place] [address] 71189 Lymphocytes/100 WBC (Bld) 31.4 % Normal [facility] Comment on above: Performed By: #### C BCA, CMP, 69097-7, PINR, 74039-6, 32163-0, 25933-6, 44408-3, THYR #### [facility] ([id number]) [address] [place] [address] 89480 MCH (RBC) [Entitic mass] 30.7 pg Normal 27-34 [facility] Comment on above: Performed By: #### C BCA, CMP, 33899-8, PINR, 82211-9, 33221-4, 29492-1, 59874-0, THYR #### [facility] ([id number]) [address] [place] [address] 70369 MCHC (RBC) [Mass/Vol] 34.9 g/dL Normal 32-36 [facility] Comment on above: Performed By: #### C BCA, CMP, 61552-5, PINR, 90330-6, 08755-9, 98293-1, 57466-7, THYR #### [facility] ([id number]) [address] [place] [address] 42710 MCV (RBC) [Entitic vol] 88 fL Normal 80-100 [facility] Comment on above: Performed By: #### C BCA, CMP, 29939-6, PINR, 66264-7, 26410-9, 93381-4, 68658-7, THYR #### [facility] ([id number]) [address] [place] [address] 59308 Monocytes (Bld) [#/Vol] 0.7 10*3/uL Normal 0-0.9 [facility] Comment on above: Performed By: #### C BCA, CMP, 44518-8, PINR, 90515-5, 42146-7, 00260-4, 07056-5, THYR #### [facility] ([id number]) [address] [place] [address] 00475 Monocytes/100 WBC (Bld) 10.7 % Normal [facility] Comment on above: Performed By: #### C BCA, CMP, 55224-1, PINR, 65175-9, 63174-5, 62862-7, 27061-0, THYR #### [facility] ([id number]) [address] [place] [address] 01453 Neutrophils/100 WBC (Bld) 55.7 % Normal [facility] Comment on above: Performed By: #### C BCA, CMP, 99266-9, PINR, 06170-5, 95925-6, 86404-7, 00182-2, THYR #### [facility] ([id number]) [address] [place] [address] 65028 Platelet mean volume (Bld) [Entitic vol] 8.5 fL Normal 7-12 [facility] Comment on above: Performed By: #### C BCA, CMP, 93095-3, PINR, 80213-4, 79994-3, 63332-1, 94040-6, THYR #### [facility] ([id number]) [address] [place] [address] 53991 Platelets (Bld) [#/Vol] 192 10*3/uL Normal 150-450 [facility] Comment on above: Performed By: #### C BCA, CMP, 95994-8, PINR, 47547-1, 73888-8, 34399-2, 25457-3, THYR #### [facility] ([id number]) [address] [place] [address] 35541 RBC COUNT 4.61 X10E12/L Normal 4.10-5.70 [facility] Comment on above: Performed By: #### C BCA, CMP, 09761-1, PINR, 91320-4, 07380-2, 98543-8, 26121-0, THYR #### [facility] ([id number]) [address] [place] [address] 15405 WBC (Bld) [#/Vol] 7.0 10*3/uL Normal 4.0-11.0 [facility] Comment on above: Performed By: #### C BCA, CMP, 95803-8, PINR, 52869-9, 03597-1, 48452-3, 56691-4, THYR #### [facility] ([id number]) [address] [place] [address] 46304 COMPREHENSIVE METABOLIC PANE Nik 06-02-2023 Albumin [Mass/Vol] 4.2 g/dL Normal 3.2-5.3 [facility] Comment on above: Performed By: #### C BCA, CMP, 34656-2, PINR, 72610-6, 60014-2, 04774-0, 57148-2, THYR #### [facility] ([id number]) [address] [place] [address] 66182 ALP [Catalytic activity/Vol] 84 U/L Normal 39-130 [facility] Comment on above: Performed By: #### C BCA, CMP, 39716-4, PINR, 20584-3, 05297-9, 02426-2, 76305-8, THYR #### [facility] ([id number]) [address] [place] [address] [place] [address] ALT [Catalytic activity/Vol] 27 U/L Normal 0-40 [facility] Comment on above: Performed By: #### C BCA, CMP, 52821-7, PINR, 60431-5, 78815-6, 94690-6, 16731-1, THYR #### [facility] ([id number]) [address] [place] [address] 76446 Anion gap [Moles/Vol] 8 mmol/L Normal 5-15 [facility] Comment on above: Performed By: #### C BCA, CMP, 98339-2, PINR, 39951-4, 27695-4, 19722-4, 59566-1, THYR #### [facility] ([id number]) [address] [place] [address] [place] [address] AST [Catalytic activity/Vol] 22 U/L Normal 0-41 [facility] Comment on above: Performed By: #### C BCA, CMP, 59211-8, PINR, 49838-8, 90628-7, 14835-6, 11086-4, THYR #### [facility] ([id number]) [address] [place] [address] 17106 Bilirubin [Mass/Vol] 0.8 mg/dL Normal 0.3-1.2 [facility] Comment on above: Performed By: #### C BCA, CMP, 74859-2, PINR, 70828-5, 58731-2, 28889-1, 29097-0, THYR #### [facility] ([id number]) [address] [place] [address] 43069 Calcium [Mass/Vol] 10.0 mg/dL Normal 8.5-10.5 [facility] Comment on above: Performed By: #### C BCA, CMP, 02869-7, PINR, 06364-3, 32396-7, 93242-9, 46520-8, THYR #### [facility] ([id number]) [address] [place] [address] [place] [address] Chloride [Moles/Vol] 102 mmol/L Normal 98-109 [facility] Comment on above: Performed By: #### C BCA, CMP, 11038-5, PINR, 80686-3, 89828-0, 73810-1, 09904-9, THYR #### [facility] ([id number]) [address] [place] [address] [place] [address] CO2 [Moles/Vol] 26 mmol/L Normal 22-32 [facility] Comment on above: Performed By: #### C BCA, CMP, 73998-4, PINR, 91206-3, 87965-6, 03890-4, 03649-8, THYR #### [facility] ([id number]) [address] [place] [address] 10819 Creatinine [Mass/Vol] 1.07 mg/dL Normal 0.70-1.20 [facility] Comment on above: Result Comment: METH OD TRACEABLE TO IDMS STANDARD Performed By: #### C BCA, CMP, 51580-6, PINR, 22617-9, 25309-0, 92235-1, 10603-2, THYR #### [facility] ([id number]) [address] [place] [address] 17869 GFR/1.73 sq M.predicted among non-blacks MDRD (S/P/Bld) [Vol rate/Area] 88 mL/min/{1.73_m2} Normal >59 [facility] Comment on above: Result Comment: Reported eGFR is based on the CKD-EPI 2020 equation that does not use a race coefficient. Performed By: #### C BCA, CMP, 60615-2, PINR, 52000-7, 28215-1, 87811-5, 91216-8, THYR #### [facility] ([id number]) [address] [place] [address] 09690 Glucose [Mass/Vol] 94 mg/dL Normal 65-99 [facility] Comment on above: Performed By: #### C BCA, CMP, 47349-0, PINR, 46299-0, 59881-6, 40584-2, 13387-0, THYR #### [facility] ([id number]) [address] [place] [address] 06517 Potassium [Moles/Vol] 4.0 mmol/L Normal 3.5-5.0 [facility] Comment on above: Performed By: #### C BCA, CMP, 24503-8, PINR, 06863-0, 55807-3, 05155-3, 10504-9, THYR #### [facility] ([id number]) [address] [place] [address] 71833 Protein [Mass/Vol] 7.0 g/dL Normal 6.0-8.0 [facility] Comment on above: Performed By: #### C BCA, CMP, 16372-5, PINR, 84450-6, 42390-8, 92516-4, 59385-5, THYR #### [facility] ([id number]) [address] [place] [address] 08048 Sodium [Moles/Vol] 136 mmol/L Normal 134-146 [facility] Comment on above: Performed By: #### C BCA, CMP, 20720-9, PINR, 90054-7, 50638-9, 89577-3, 96128-0, THYR #### [facility] ([id number]) [address] [place] [address] 54082 Urea nitrogen [Mass/Vol] 20 mg/dL Normal 5-23 [facility] Comment on above: Performed By: #### C BCA, CMP, 65168-1, PINR, 59138-5, 12787-5, 92845-4, 83467-1, THYR #### [facility] ([id number]) [address] [place] [address] 41739 MAGNESIUMon 06-02-2023 Magnesium [Mass/Vol] 2.1 mg/dL Normal 1.8-2.6 [facility] Comment on above: Performed By: #### C BCA, CMP, 99881-6, PINR, 56601-1, 70351-6, 89862-6, 84693-3, THYR #### [facility] ([id number]) [address] [place] [address] 29438 TROPONIN Ion 06-02-2023 Troponin I.cardiac [Mass/Vol] ng/mL Normal 0.00-0.04 [facility] Comment on above: Performed By: #### C BCA, CMP, 63768-5, PINR, 67083-1, 74648-5, 24572-4, 36503-6, THYR #### [facility] ([id number]) [address] [place] [address] 20427 CBC AND AUTO DIFFon 06-01-19 24 ABSOLUTE BASOPHIL 0.1 X10E9/L Normal 0.0-0.2 [facility] Comment on above: Performed By: #### C BCA, CMP, 94489-0, PINR, 77565-4, 79568-3, 38842-4, 35968-8, THYR #### [facility] ([id number]) [address] [place] [address] 78072 ABSOLUTE NEUTROPHIL 5.1 X10E9/L Normal 1.5-6.6 [facility] Comment on above: Performed By: #### C BCA, CMP, 69046-0, PINR, 75347-7, 46442-8, 67960-6, 47274-7, THYR #### [facility] ([id number]) [address] [place] [address] [place] [address] Basophils/100 WBC (Bld) 0.8 % Normal [facility] Comment on above: Performed By: #### C BCA, CMP, 06838-5, PINR, 58043-8, 77339-8, 14406-3, 80710-3, THYR #### [facility] ([id number]) [address] [place] [address] 12645 Eosinophils (Bld) [#/Vol] 0.1 10*3/uL Normal 0.0-0.4 [facility] Comment on above: Performed By: #### C BCA, CMP, 52780-9, PINR, 17064-3, 22998-9, 86991-3, 05444-8, THYR #### [facility] ([id number]) [address] [place] [address] 02348 Eosinophils/100 WBC (Bld) 1.1 % Normal [facility] Comment on above: Performed By: #### C BCA, CMP, 35285-9, PINR, 12134-2, 69872-4, 13001-6, 74454-3, THYR #### [facility] ([id number]) [address] [place] [address] 18250 Erythrocyte distribution width (RBC) [Ratio] 13.0 % Normal 11.5-15.0 [facility] Comment on above: Performed By: #### C BCA, CMP, 34334-9, PINR, 77201-1, 27345-3, 31379-8, 52090-9, THYR #### [facility] ([id number]) [address] [place] [address] 86264 Hematocrit (Bld) [Volume fraction] 41.5 % Normal 39-49 [facility] Comment on above: Performed By: #### C BCA, CMP, 50518-8, PINR, 24636-0, 29045-6, 94492-8, 46455-7, THYR #### [facility] ([id number]) [address] [place] [address] 84683 Hemoglobin (Bld) [Mass/Vol] 14.6 g/dL Normal 13.0-17.0 [facility] Comment on above: Performed By: #### C BCA, CMP, 05447-3, PINR, 59822-3, 86664-1, 64392-1, 00464-8, THYR #### [facility] ([id number]) [address] [place] [address] 47641 Lymphocytes (Bld) [#/Vol] 1.7 10*3/uL Normal 1.0-3.5 [facility] Comment on above: Performed By: #### C BCA, CMP, 14534-9, PINR, 69993-0, 03227-5, 98849-6, 14960-8, THYR #### [facility] ([id number]) [address] [place] [address] 05536 Lymphocytes/100 WBC (Bld) 22.2 % Normal [facility] Comment on above: Performed By: #### C BCA, CMP, 93559-4, PINR, 71654-8, 86160-8, 79088-2, 48620-9, THYR #### [facility] ([id number]) [address] [place] [address] [id number] MCH (RBC) [Entitic mass] 30.4 pg Normal 27-34 [facility] Comment on above: Performed By: #### C BCA, CMP, 18044-9, PINR, 81833-9, 44698-9, 83736-0, 76399-9, THYR #### [facility] ([id number]) [address] [place] [address] 95140 MCHC (RBC) [Mass/Vol] 35.1 g/dL Normal 32-36 [facility] Comment on above: Performed By: #### C BCA, CMP, 63625-2, PINR, 63651-1, 13345-5, 53785-8, 06244-6, THYR #### [facility] ([id number]) [address] [place] [address] [id number] MCV (RBC) [Entitic vol] 87 fL Normal 80-100 [facility] Comment on above: Performed By: #### C BCA, CMP, 86870-0, PINR, 04424-6, 65488-2, 01971-6, 57938-5, THYR #### [facility] ([id number]) [address] [place] [address] 83199 Monocytes (Bld) [#/Vol] 0.6 10*3/uL Normal 0-0.9 [facility] Comment on above: Performed By: #### C BCA, CMP, 01050-4, PINR, 09828-8, 72328-5, 70384-2, 54339-3, THYR #### [facility] ([id number]) [address] [place] [address] 39427 Monocytes/100 WBC (Bld) 7.8 % Normal [facility] Comment on above: Performed By: #### C BCA, CMP, 96751-8, PINR, 28050-3, 74452-7, 79224-3, 29872-8, THYR #### [facility] ([id number]) [address] [place] [address] 37905 Neutrophils/100 WBC (Bld) 68.1 % Normal [facility] Comment on above: Performed By: #### C BCA, CMP, 59629-2, PINR, 16179-3, 99885-8, 45191-7, 03969-5, THYR #### [facility] ([id number]) [address] [place] [address] 51746 Platelet mean volume (Bld) [Entitic vol] 8.3 fL Normal 7-12 [facility] Comment on above: Performed By: #### C BCA, CMP, 31040-0, PINR, 56634-7, 83982-0, 98045-2, 20223-7, THYR #### [facility] ([id number]) [address] [place] [address] 68961 Platelets (Bld) [#/Vol] 207 10*3/uL Normal 150-450 [facility] Comment on above: Performed By: #### C BCA, CMP, 29941-3, PINR, 23307-7, 68131-3, 07183-6, 87989-2, THYR #### [facility] ([id number]) [address], [place] [address] RBC COUNT 4.79 X10E12/L Normal 4.10-5.70 [facility] Comment on above: Performed By: #### C BCA, CMP, 81330-2, PINR, 42320-0, 40194-0, 07616-1, 39344-0, THYR #### [facility] ([id number]) [address] [place] [address] 11850 WBC (Bld) [#/Vol] 7.5 10*3/uL Normal 4.0-11.0 [facility] Comment on above: Performed By: #### C BCA, CMP, 83373-3, PINR, 49553-2, 19624-1, 44816-0, 81853-9, THYR #### [facility] ([id number]) [address] [place] [address] 38567 COMPREHENSIVE METABOLIC PANE Nik 06-01-2023 Albumin [Mass/Vol] 5.0 g/dL Normal 3.2-5.3 [facility] Comment on above: Performed By: #### C BCA, CMP, 01982-7, PINR, 88494-6, 06936-5, 73500-3, 85287-1, THYR #### [facility] ([id number]) [address] [place] [address] 05788 ALP [Catalytic activity/Vol] 90 U/L Normal 39-130 [facility] Comment on above: Performed By: #### C BCA, CMP, 19255-4, PINR, 97495-4, 14118-1, 41219-6, 39260-8, THYR #### [facility] ([id number]) [address] [place] [address] 16479 ALT [Catalytic activity/Vol] 32 U/L Normal 0-40 [facility] Comment on above: Performed By: #### C BCA, CMP, 94621-9, PINR, 19552-6, 71794-4, 20138-3, 70048-0, THYR #### [facility] ([id number]) [address] [place] [address] 19130 Anion gap [Moles/Vol] 7 mmol/L Normal 5-15 [facility] Comment on above: Performed By: #### C BCA, CMP, 65427-9, PINR, 32041-3, 96871-9, 56328-5, 10198-6, THYR #### [facility] ([id number]) [address] [place] [address] 05774 AST [Catalytic activity/Vol] 27 U/L Normal 0-41 [facility] Comment on above: Performed By: #### C BCA, CMP, 98315-1, PINR, 36943-0, 65703-0, 74905-0, 34262-2, THYR #### [facility] ([id number]) [address] [place] [address] 07632 Bilirubin [Mass/Vol] 0.8 mg/dL Normal 0.3-1.2 [facility] Comment on above: Performed By: #### C BCA, CMP, 07392-5, PINR, 85417-2, 15630-9, 30595-1, 44387-1, THYR #### [facility] ([id number]) [address] [place] [address] 59972 Calcium [Mass/Vol] 10.1 mg/dL Normal 8.5-10.5 [facility] Comment on above: Performed By: #### C BCA, CMP, 86047-4, PINR, 16937-9, 13511-6, 60663-7, 42554-4, THYR #### [facility] ([id number]) [address] [place] [address] 68961 Chloride [Moles/Vol] 103 mmol/L Normal 98-109 [facility] Comment on above: Performed By: #### C BCA, CMP, 31286-7, PINR, 14737-8, 76361-2, 58845-3, 71559-9, THYR #### [facility] ([id number]) [address] [place] [address] 17097 CO2 [Moles/Vol] 24 mmol/L Normal 22-32 [facility] Comment on above: Performed By: #### C BCA, CMP, 02670-0, PINR, 03027-4, 25279-8, 15143-3, 30620-2, THYR #### [facility] ([id number]) [address] [place] [address] 52505 Creatinine [Mass/Vol] 1.18 mg/dL Normal 0.70-1.20 [facility] Comment on above: Result Comment: METH OD TRACEABLE TO IDMS STANDARD Performed By: #### C BCA, CMP, 97861-0, PINR, 49473-7, 84884-1, 83922-7, 82507-9, THYR #### [facility] ([id number]) [address] [place] [address] 97212 GFR/1.73 sq M.predicted among non-blacks MDRD (S/P/Bld) [Vol rate/Area] 78 mL/min/{1.73_m2} Normal >59 [facility] Comment on above: Result Comment: Reported eGFR is based on the CKD-EPI 2020 equation that does not use a race coefficient. Performed By: #### C BCA, CMP, 03375-5, PINR, 85600-3, 59922-9, 26334-2, 62854-1, THYR #### [facility] ([id number]) [address] [place] [address] 60110 Glucose [Mass/Vol] 86 mg/dL Normal 65-99 [facility] Comment on above: Performed By: #### C BCA, CMP, 70101-3, PINR, 62026-4, 07090-6, 59546-5, 44911-2, THYR #### [facility] ([id number]) [address] [place] [address] 10298 Potassium [Moles/Vol] 3.8 mmol/L Normal 3.5-5.0 [facility] Comment on above: Performed By: #### C BCA, CMP, 03425-7, PINR, 62493-6, 63677-1, 52419-5, 18390-1, THYR #### [facility] ([id number]) [address] [place] [address] 30486 Protein [Mass/Vol] 7.8 g/dL Normal 6.0-8.0 [facility] Comment on above: Performed By: #### C BCA, CMP, 70312-0, PINR, 48223-3, 51061-2, 23769-5, 62625-6, THYR #### [facility] ([id number]) [address] [place] [address] 72680 Sodium [Moles/Vol] 134 mmol/L Normal 134-146 [facility] Comment on above: Performed By: #### C BCA, CMP, 96260-1, PINR, 74221-0, 15338-4, 81784-2, 87266-6, THYR #### [facility] ([id number]) [address] [place] [address] 34926 Urea nitrogen [Mass/Vol] 16 mg/dL Normal 5-23 [facility] Comment on above: Performed By: #### C BCA, CMP, 70135-6, PINR, 26068-0, 87675-4, 08825-4, 32097-8, THYR #### [facility] ([id number]) [address] [place] [address] 82708 DRUG SCREEN, URINEon 024 AMPHETAMINE/METHAMP Negative Normal NEG [facility] Comment on above: Result Comment: AMPH /METH screening cut off = 1000 ng/mL Performed By: #### C BCA, CMP, 46518-9, PINR, 82502-0, 44749-2, 30010-6, 42418-6, THYR #### [facility] ([id number]) [address] [place] [address] 61560 BARBITURATES Negative Normal NEG [facility] Comment on above: Result Comment: Yen iturates screening cut off value = 200 ng/mL Performed By: #### C BCA, CMP, 26285-8, PINR, 18179-0, 13060-1, 21620-2, 98525-7, THYR #### [facility] ([id number]) [address] [place] [address] 63766 BENZODIAZEPINES Negative Normal NEG [facility] Comment on above: Result Comment: Carlos odiazepines screening cut off value = 200 ng/mL Performed By: #### C BCA, CMP, 25305-0, PINR, 84386-7, 58628-2, 91959-5, 56879-0, THYR #### [facility] ([id number]) [address] [place] [address] 50233 CANNABINOIDS Negative Normal NEG [facility] Comment on above: Result Comment: Shirlene abinoids/THC screening cut off value = 50 ng/mL Performed By: #### C BCA, CMP, 91102-1, PINR, 26187-7, 33894-5, 95272-1, 08917-3, THYR #### [facility] ([id number]) [address] [place] [address] 64866 COCAINE METABOLITE Negative Normal NEG [facility] Comment on above: Result Comment: Coca ine screening cut off value = 300 ng/mL Performed By: #### C BCA, CMP, 61758-8, PINR, 65534-0, 06856-2, 04096-3, 09639-4, THYR #### [facility] ([id number]) [address] [place] [address] 97967 ECSTASY Negative Normal NEG [facility] Comment on above: Result Comment: Ecst asy screening cut off value = 500 ng/mL This report is intended for use in clinical monitoring or management of patients. Performed By: #### C BCA, CMP, 03859-1, PINR, 89124-9, 16899-2, 83438-6, 34230-7, THYR #### [facility] ([id number]) [address] [place] [address] 05046 METHADONE Negative Normal NEG [facility] Comment on above: Result Comment: Meth adone screening cut off value = 300 ng/mL. Performed By: #### C BCA, CMP, 48538-9, PINR, 75851-5, 45103-7, 65422-2, 46933-7, THYR #### [facility] ([id number]) [address] [place] [address] 32718 OPIATES Negative Normal NEG [facility] Comment on above: Result Comment: Opia yolande screening cut off value = 300 ng/mL NOTE: This test is used for the detection of codeine, hydrocodone (>1000 ng/mL), morphine and hydromorphone (>900 ng/mL) in urine. Performed By: #### C BCA, CMP, 88702-7, PINR, 79344-5, 59925-7, 28031-6, 88498-3, THYR #### [facility] ([id number]) [address] [place] [address] 44577 OXYCODONE Negative Normal NEG [facility] Comment on above: Result Comment: Oxyc odone screening cut off value = 300 ng/mL NOTE: This test is used for the detection of oxycodone and oxymorphone in urine. Performed By: #### C BCA, CMP, 00012-6, PINR, 97615-9, 87105-9, 83978-8, 62287-3, THYR #### [facility] ([id number]) [address] [place] [address] 09047 PHENCYCLIDINE Negative Normal NEG [facility] Comment on above: Result Comment: Phen cyclidine screening cut off value = 25 ng/mL Performed By: #### C MERCEDES, ERIK, 47202-1, PINR, 39713-3, 01257-7, 04201-1, 29691-2, THYR #### [facility] ([id number]) [address] [place] [address] 28752 Fibrin D-dimer DDU (PPP) [Ma ss/Vol]on 06-01-2023 D DIMER <150 Normal <255 [facility] Comment on above: Result Comment: Results <255 ng/mL DDU: The presence of a VTE can safely be excluded with a negative D-Dimer result and Wells score. A negative result doesn't exclude the possibility of DIC. The test be repeated along with other diagnostic tests if the patient's symptoms persist or worsen. [email or web address] Performed By: #### C MERCEDES, ERIK, 32680-1, PINR, 94235-1, 81978-6, 68197-4, 50669-9, THYR #### [facility] ([id number]) [address] [place] [address] 83933 Lead (BldV) [Mass/Vol]on LEAD, VENOUS 33.8 mcg/dL High <3.5 [facility] Comment on above: Result Comment: NOTE ADDITIONAL INFORMATION Testing performed by Inductively Coupled Plasma-Mass Spectrometry (ICP-MS). This test was developed and its performance characteristics determined by [facility] in a manner consistent with CLIA requirements. This test has not been cleared or approved by the U.S. Food and Drug Administration. Performed By: #### C BCA, CMP, 50873-4, PINR, 05875-5, 80838-6, 18587-5, 95931-3, THYR #### [facility] ([id number]) [address] [place] [address] 72853 MAGNESIUMon 06-01-2023 Magnesium [Mass/Vol] 2.1 mg/dL Normal 1.8-2.6 [facility] Comment on above: Performed By: #### C BCA, CMP, 71557-4, PINR, 18050-8, 20679-0, 66031-1, 81313-3, THYR #### [facility] ([id number]) [address] [place] [address] 79027 Natriuretic peptide B [Mass/ Vol]on 06-01-2023 BRN NATRIURETIC PEP <5 Normal <100.0 [facility] Comment on above: Performed By: #### C BCA, CMP, 86896-7, PINR, 89395-0, 58605-5, 74950-0, 94316-8, THYR #### [facility] ([id number]) [address] [place] [address] 47458 PROTIME AND INRon 06-01-2023 INR Coag (PPP) [Relative time] 1.1 {INR} Normal 0.8-1.1 [facility] Comment on above: Performed By: #### C BCA, CMP, 31127-3, PINR, 50280-0, 49212-7, 15571-2, 31065-2, THYR #### [facility] ([id number]) [address] [place] [address] 70551 PT Coag (PPP) [Time] 12.6 s Normal 9.8-13.2 [facility] Comment on above: Result Comment: NEW REFERENCE RANGE Performed By: #### C BCA, CMP, 72178-0, PINR, 33860-8, 67953-8, 64546-5, 18317-4, THYR #### [facility] ([id number]) [address] [place] [address] 46042 THYROID PROFILEon 06-01-2023 Free T4 [Mass/Vol] 0.88 ng/dL Normal 0.61-1.60 [facility] Comment on above: Performed By: #### C BCA, CMP, 59573-2, PINR, 18564-2, 35660-7, 20606-7, 57587-6, THYR #### [facility] ([id number]) [address] [place] [address] 64511 TSH 1.27 uIU/mL Normal 0.49-4.67 [facility] Comment on above: Performed By: #### C BCA, CMP, 72129-7, PINR, 87951-3, 79132-6, 22583-1, 07171-8, THYR #### [facility] ([id number]) [address] [place] [address] 07641 TROPONIN Ion 06-01-2023 Troponin I.cardiac [Mass/Vol] ng/mL Normal 0.00-0.04 [facility] Comment on above: Performed By: #### C BCA, CMP, 88507-0, PINR, 39182-6, 05049-9, 73820-0, 63456-8, THYR #### [facility] ([id number]) [address] [place] [address] 55128 URN MACROSCOPIC NURon 2023 BILIRUBIN FITO Negative Normal NEG [facility] Comment on above: Performed By: #### C BCA, CMP, 36950-5, PINR, 09343-5, 59383-2, 99012-3, 62295-8, THYR #### [facility] ([id number]) [address] [place] [address] 49780 BLOOD/HGB FITO Negative Normal NEG [facility] Comment on above: Performed By: #### C BCA, CMP, 92498-8, PINR, 42336-1, 88591-7, 65445-6, 66816-8, THYR #### [facility] ([id number]) [address] [place] [address] 11096 GLUCOSE FITO Negative Normal NEG [facility] Comment on above: Performed By: #### C BCA, CMP, 28902-8, PINR, 96990-6, 17171-0, 11550-6, 02066-8, THYR #### [facility] ([id number]) [address] [place] [address] 44080 KETONES FITO 40 mg/dL Abnormal NEG [facility] Comment on above: Performed By: #### C BCA, CMP, 77711-1, PINR, 33902-0, 23557-3, 89932-1, 25588-2, THYR #### [facility] ([id number]) [address] [place] [address] 46109 LEUKOCYTE ESTERASE FITO Negative Normal NEG [facility] Comment on above: Performed By: #### C BCA, CMP, 22048-2, PINR, 39292-2, 74065-7, 05510-1, 31321-4, THYR #### [facility] ([id number]) [address] [place] [address] 15866 NITRITE FITO Negative Normal NEG [facility] Comment on above: Performed By: #### C BCA, CMP, 54488-3, PINR, 04511-0, 89242-1, 98067-1, 53643-9, THYR #### [facility] ([id number]) [address] [place] [address] 74724 PH FITO 5.5 Normal 5.0-8.5 [facility] Comment on above: Performed By: #### C BCA, CMP, 23864-6, PINR, 54864-2, 07147-0, 36352-7, 72779-5, THYR #### [facility] ([id number]) [address] [place] [address] 12899 PROTEIN FITO Negative Normal NEG [facility] Comment on above: Performed By: #### C BCA, CMP, 16970-5, PINR, 41069-5, 08574-1, 12880-7, 57241-0, THYR #### [facility] ([id number]) [address] [place] [address] 05262 SPECIFIC GRAVITY FITO 1.025 Normal 1.003-1.035 [facility] Comment on above: Performed By: #### C BCA, CMP, 48396-3, PINR, 14939-6, 14375-5, 19047-0, 76482-1, THYR #### [facility] ([id number]) [address] [place] [address] 44667 UROBILINOGEN FITO 0.2 eu/dL Normal <1.1 [facility] Comment on above: Performed By: #### C BCA, CMP, 00967-1, PINR, 34435-3, 42351-5, 73163-2, 54332-2, THYR #### [facility] ([id number]) [address] [place] [address] 48110 XR CHEST 1 VWon 06-01-2023 XR CHEST [...] Pardo DO on 06/01/2023 3:32 PM Normal [facility] aPTT Coag (PPP) [Time]on aPTT Coag (Bld) [Time] 35 s Normal 26-37 [facility] Comment on above: Result Comment: NEW REFERENCE RANGE Performed By: #### C BCA, CMP, 92570-6, PINR, 04630-1, 48590-3, 24353-7, 13824-1, THYR #### [facility] ([id number]) [address] [place] [address], [place] [address] LEAD,ADULTon 09-05-2022 Lead, Blood (Adult) 45.4 ug/dL Invalid Interpretation Code 0.0-3.4 [facility] Comment on above: Result Comment: Test ing performed by Inductively coupled plasma/Mass Spectrometry. Verified by repeat analysis Analysis by inductively coupled plasma/mass spectrometry (ICP/MS) Environmental Exposure: WHO Recommendation <20.0 Occupational Exposure: OSHA Lead Std 40.0 CHAZ 30.0 . Detection Limit = 1.0 Performed By: #### L EADA #### [facility] [address] [place] [address] Dr. Rachel Cortez LEAD,ADULTon 09-01-2022 Lead, Blood (Adult) CLOTWB Normal [facility] Comment on above: Result Comment: Test not performed. Whole blood specimen partially or completely clotted. A common cause is insufficient mixing upon collection. Testing performed by Inductively coupled plasma/Mass Spectrometry. contacted Nohelia at your facility on 09-01-2022 Environmental Exposure: WHO Recommendation <20.0 Occupational Exposure: OSHA Lead Std 40.0 CHAZ 30.0 . Detection Limit = 1.0 Performed By: #### I NSULIN #### [facility] [address] [place] [address] Dr. Rachel Cortez LEAD,ADULTon 08-30-2022 Lead, Blood (Adult) CLOTWB Normal [facility] Comment on above: Result Comment: Test not performed. Whole blood specimen partially or completely clotted. A common cause is insufficient mixing upon collection. Testing performed by Inductively coupled plasma/Mass Spectrometry. contacted Taya at your facility on 08-30-2022 Environmental Exposure: WHO Recommendation <20.0 Occupational Exposure: OSHA Lead Std 40.0 CHAZ 30.0 . Detection Limit = 1.0 Performed By: #### L EADA #### [facility] [address] [place] [address] Dr. Rachel Cortez BNPon 08-29-2022 Natriuretic peptide B (Bld) [Mass/Vol] 10.0 pg/mL Normal <=450.0 [facility] Comment on above: Performed By: #### C MP, TSH, BNP #### [facility] [address] [place] [address] Dr. Rachel Cortez CBC AUTO DIFFon 08-29-2022 BASO # 0.0 103/ul Normal 0.0-0.1 [facility] Comment on above: Performed By: #### C BC #### [facility] [address] [place] [address] Dr. Rachel Cortez Basophils/100 WBC (Bld) 0.5 % Normal 0.2-2.0 [facility] Comment on above: Performed By: #### C BC #### [facility] [address] [place] [address] Dr. Rachel Cortez EO # 0.2 103/ul Normal 0.0-0.7 [facility] Comment on above: Performed By: #### C BC #### [facility] [address] [place] [address] Dr. Rachel Cortez Eosinophils/100 WBC (Bld) 2.7 % Normal 0.9-7.0 [facility] Comment on above: Performed By: #### C BC #### [facility] [address] [place] [address] Dr. Rachel Cortez Erythrocyte distribution width (RBC) [Ratio] 12.3 % Normal 11.0-15.0 [facility] Comment on above: Performed By: #### C BC #### [facility] [address] [place] [address] Dr. Rachel Cortez Hematocrit (Bld) [Volume fraction] 40.9 % Critically low 42.0-54.0 [facility] Comment on above: Performed By: #### C BC #### [facility] [address] [place] [address] Dr. Rachel Cortez Hemoglobin (Bld) [Mass/Vol] 13.9 g/dL Critically low 14.0-18.0 [facility] Comment on above: Performed By: #### C BC #### [facility] [address] [place] [address] Dr. Rachel Cortez IG # 0.02 10e3/ul Normal 0.00-0.03 [facility] Comment on above: Performed By: #### C BC #### [facility] [address] [place] [address] Dr. Rachel Cortez IG % 0.3 % Normal 0.0-0.5 [facility] Comment on above: Performed By: #### C BC #### [facility] [address] [place] [address] Dr. Rachel Cortez LYMPH # 1.6 103/ul Normal 1.2-3.8 [facility] Comment on above: Performed By: #### C BC #### [facility] [address] [place] [address] Dr. Rachel Cortez Lymphocytes/100 WBC (Bld) 21.2 % Normal 20.5-60.0 [facility] Comment on above: Performed By: #### C BC #### [facility] [address] [place] [address] Dr. Rachel Cortez MANUAL DIFF REQ NO Normal [facility] Comment on above: Performed By: #### C BC #### [facility] [address] [place] [address] Dr. Rachel Cortez MCH (RBC) [Entitic mass] 30.3 pg Normal 25.9-34.0 [facility] Comment on above: Performed By: #### C BC #### [facility] [address] [place] [address] Dr. Rachel Cortez MCHC (RBC) [Mass/Vol] 34.0 g/dL Normal 29.9-35.2 [facility] Comment on above: Performed By: #### C BC #### [facility] [address] [place] [address] Dr. Rachel Cortez MCV (RBC) [Entitic vol] 89.3 fL Normal 80.0-94.0 [facility] Comment on above: Performed By: #### C BC #### [facility] [address] [place] [address] Dr. Rachel Cortez MONO # 0.6 103/ul Normal 0.3-0.8 [facility] Comment on above: Performed By: #### C BC #### [facility] [address] [place] [address] Dr. Rachel Cortez Monocytes/100 WBC (Bld) 8.6 % Normal 1.7-12.0 [facility] Comment on above: Performed By: #### C BC #### [facility] [address] [place] [address] Dr. Rachel Cortez NEUT # 5.0 103/ul Normal 1.4-6.5 [facility] Comment on above: Performed By: #### C BC #### [facility] [address] [place] [address] Dr. Rachel Cortez Neutrophils/100 WBC (Bld) 66.7 % Normal 43.0-75.0 [facility] Comment on above: Performed By: #### C BC #### [facility] [address] [place] [address] Dr. Rachel Cortez Platelet mean volume (Bld) [Entitic vol] 10.2 fL Normal 9.5-13.5 [facility] Comment on above: Performed By: #### C BC #### [facility] [address] [place] [address] Dr. Rachel Cortez PLT 198 103/ul Normal 150-450 [facility] Comment on above: Performed By: #### C BC #### [facility] [address] [place] [address] Dr. Rachel Cortez RBC 4.58 106/ul Critically low 4.70-6.10 [facility] Comment on above: Performed By: #### C BC #### [facility] [address] [place] [address] Dr. Rachel Cortez WBC 7.5 103/ul Normal 4.0-11.0 [facility] Comment on above: Performed By: #### C BC #### [facility] [address] [place] [address] Dr. Rachel Cortez FREE T4on 08-29-2022 Free T4 [Mass/Vol] 0.84 ng/dL Normal 0.76-1.46 [facility] Comment on above: Performed By: #### I KANDIS FT4 #### [facility] [address] [place] [address] Dr. Rachel RAMon 08-29-2022 Iron [Mass/Vol] 86.0 ug/dL Normal 65.0-175.0 [facility] Comment on above: Performed By: #### I KANDIS FT4 #### [facility] [address] [place] [address] Dr. Rachel Cortez PROF 14(COMP METB)on 023 Albumin [Mass/Vol] 4.0 g/dL Normal 3.4-5.0 [facility] Comment on above: Performed By: #### C MP, TSH, BNP #### [facility] [address] [place] [address] Dr. Rachel Cortez Albumin/Globulin [Mass ratio] 1.2 {ratio} Normal [facility] Comment on above: Performed By: #### C MP, TSH, BNP #### [facility] [address] [place] [address] Dr. Rachel Cortez ALP [Catalytic activity/Vol] 103 U/L Normal 46-116 [facility] Comment on above: Performed By: #### C MP, TSH, BNP #### [facility] [address] [place] [address] Dr. Rachel Cortez ALT [Catalytic activity/Vol] 39 U/L Normal 16-63 [facility] Comment on above: Performed By: #### C MP, TSH, BNP #### [facility] [address] [place] [address] Dr. Rachel Cortez Anion gap [Moles/Vol] 10.2 mmol/L Normal [facility] Comment on above: Performed By: #### C MP, TSH, BNP #### [facility] [address] [place] [address] Dr. Rachel Cortez AST [Catalytic activity/Vol] 20 U/L Normal 15-37 [facility] Comment on above: Performed By: #### C MP, TSH, BNP #### [facility] [address] [address] [address] Rachel Cortez Bilirubin [Mass/Vol] 0.3 mg/dL Normal 0.2-1.0 [facility] Comment on above: Performed By: #### C MP, TSH, BNP #### [facility] [address] [address] [address] Rachel Cortez Calcium [Mass/Vol] 9.8 mg/dL Normal 8.5-10.1 [facility] Comment on above: Performed By: #### C MP, TSH, BNP #### [facility] [address] [place] [address] Dr. Rachel Cortez Chloride [Moles/Vol] 105 mmol/L Normal 98-107 [facility] Comment on above: Performed By: #### C MP, TSH, BNP #### [facility] [address] [place] [address] Dr. Rachel Cortez CO2 [Moles/Vol] 29.9 mmol/L Normal 21.0-32.0 [facility] Comment on above: Performed By: #### C MP, TSH, BNP #### [facility] [address] [place] [address] Dr. Rachel Cortez Creatinine [Mass/Vol] 1.19 mg/dL Normal 0.70-1.30 [facility] Comment on above: Performed By: #### C MP, TSH, BNP #### [facility] [address] [place] [address] Dr. Rachel Cortez EGFR-AF NIUEAN >60 Normal >=60 [facility] Comment on above: Performed By: #### C MP, TSH, BNP #### [facility] [address] [place] [address] Dr. Rahcel Cortez EGFR-NON AF NIUEAN >60 Normal >=60 [facility] Comment on above: Performed By: #### C MP, TSH, BNP #### [facility] [address] [place] [address] Dr. Rachel Cotrez Globulin (S) [Mass/Vol] 3.4 g/dL Normal [facility] Comment on above: Performed By: #### C MP, TSH, BNP #### [facility] [address] [place] [address] Dr. Rachel Cortez Glucose [Mass/Vol] 105 mg/dL Normal 74-106 [facility] Comment on above: Performed By: #### C MP, TSH, BNP #### [facility] [address] [place] [address] Dr. Rachel Cortez Potassium [Moles/Vol] 4.1 mmol/L Normal 3.5-5.1 [facility] Comment on above: Performed By: #### C MP, TSH, BNP #### [facility] [address] [place] [address] Dr. Rachel Cortez Protein [Mass/Vol] 7.4 g/dL Normal 6.4-8.2 [facility] Comment on above: Performed By: #### C MP, TSH, BNP #### [facility] [address] [place] [address] Dr. Rachel Cortez Sodium [Moles/Vol] 141 mmol/L Normal 136-145 [facility] Comment on above: Performed By: #### C MP, TSH, BNP #### [facility] [address] [place] [address] Dr. Rachel Cortez Urea nitrogen [Mass/Vol] 16.0 mg/dL Normal 7.0-18.0 [facility] Comment on above: Performed By: #### C MP, TSH, BNP #### [facility] [address] [place] [address] Dr. Rachel Cortez Urea nitrogen/Creatinine [Mass ratio] 13.4 mg/mg Normal [facility] Comment on above: Performed By: #### C MP, TSH, BNP #### [facility] [address] [place] [address] Dr. Rachel Cortez TSHon 08-29-2022 TSH 0.978 uIU/mL Normal 0.358-3.740 [facility] Comment on above: Performed By: #### I NSULIN #### [facility] [address] [place] [address] FACIAL BONES WO [...] WILFRID CAMARENA Date: 2022-08-11 18:30 Normal [facility] CT HEAD WO CONon 08-11-2022 CT [...] MARLYS MUNOZ Date: 2022-08-11 19:49 Normal [facility] INSULINon 05-09-2022 Insulin 9.9 uIU/mL Normal 2.6-24.9 [facility] Comment on above: Performed By: #### I NSULIN #### [facility] [address] [place] [address] Dr. Rachel Cortez CBC AUTO DIFFon 05-07-2022 BASO # 0.1 103/ul Normal 0.0-0.1 [facility] Comment on above: Performed By: #### I NSULIN #### [facility] [address] [place] [address] Dr. Rachel Cortez Basophils/100 WBC (Bld) 0.7 % Normal 0.2-2.0 [facility] Comment on above: Performed By: #### I NSULIN #### [facility] [address] [place] [address] Dr. Rachel Cortez EO # 0.0 103/ul Normal 0.0-0.7 [facility] Comment on above: Performed By: #### I NSULIN #### [facility] [address] [place] [address] Dr. Rachel Cortez Eosinophils/100 WBC (Bld) 0.1 % Critically low 0.9-7.0 [facility] Comment on above: Performed By: #### I NSULIN #### [facility] [address] [place] [address] Dr. Rachel Cortez Erythrocyte distribution width (RBC) [Ratio] 12.2 % Normal 11.0-15.0 [facility] Comment on above: Performed By: #### I NSULIN #### [facility] [address] [place] [address] Dr. Rachel Cortez Hematocrit (Bld) [Volume fraction] 41.1 % Critically low 42.0-54.0 [facility] Comment on above: Performed By: #### I NSULIN #### [facility] [address] [place] [address] Dr. Rachel Cortez Hemoglobin (Bld) [Mass/Vol] 14.1 g/dL Normal 14.0-18.0 [facility] Comment on above: Performed By: #### I NSULIN #### [facility] [address] [place] [address] Dr. Rachel Cortez IG # 0.03 10e3/ul Normal 0.00-0.03 [facility] Comment on above: Performed By: #### I NSULIN #### [facility] [address] [place] [address] Dr. Rachel Cortez IG % 0.4 % Normal 0.0-0.5 [facility] Comment on above: Performed By: #### I NSULIN #### [facility] [address] [place] [address] Dr. Rachel Cortez LYMPH # 2.3 103/ul Normal 1.2-3.8 [facility] Comment on above: Performed By: #### I NSULIN #### [facility] [address] [place] [address] Dr. Rachel Cortez Lymphocytes/100 WBC (Bld) 30.8 % Normal 20.5-60.0 [facility] Comment on above: Performed By: #### I NSULIN #### [facility] [address] [place] [address] Dr. Rachel Cortez MANUAL DIFF REQ NO Normal [facility] Comment on above: Performed By: #### I NSULIN #### [facility] [address] [place] [address] Dr. Rachel Cortez MCH (RBC) [Entitic mass] 29.9 pg Normal 25.9-34.0 [facility] Comment on above: Performed By: #### I NSULIN #### [facility] [address] [place] [address] Dr. Rachel Cortez MCHC (RBC) [Mass/Vol] 34.3 g/dL Normal 29.9-35.2 [facility] Comment on above: Performed By: #### I NSULIN #### [facility] [address] [place] [address] Dr. Rachel Cortez MCV (RBC) [Entitic vol] 87.3 fL Normal 80.0-94.0 [facility] Comment on above: Performed By: #### I NSULIN #### [facility] [address] [place] [address] Dr. Rachel Cortez MONO # 0.7 103/ul Normal 0.3-0.8 [facility] Comment on above: Performed By: #### I NSULIN #### [facility] [address] [place] [address] Dr. Rachel Cortez Monocytes/100 WBC (Bld) 8.9 % Normal 1.7-12.0 [facility] Comment on above: Performed By: #### I NSULIN #### [facility] [address] [place] [address] Dr. Rachel Cortez NEUT # 4.3 103/ul Normal 1.4-6.5 [facility] Comment on above: Performed By: #### I NSULIN #### [facility] [address] [place] [address] Dr. Rachel Cortez Neutrophils/100 WBC (Bld) 59.1 % Normal 43.0-75.0 [facility] Comment on above: Performed By: #### I NSULIN #### [facility] [address] [place] [address] Dr. Rachel Cortez Platelet mean volume (Bld) [Entitic vol] 9.9 fL Normal 9.5-13.5 [facility] Comment on above: Performed By: #### I NSULIN #### [facility] [address] [place] [address] Dr. Rachel Cortez PLT 184 103/ul Normal 150-450 [facility] Comment on above: Performed By: #### I NSULIN #### [facility] [address] [place] [address] Dr. Rachel Cortez RBC 4.71 106/ul Normal 4.70-6.10 [facility] Comment on above: Performed By: #### I NSULIN #### [facility] [address] [place] [address] Dr. Rachel Cortez WBC 7.3 103/ul Normal 4.0-11.0 [facility] Comment on above: Performed By: #### I NSULIN #### [facility] [address] [place] [address] Dr. Rachel Cortez CULTURE URINEon 05-07-2022 CULTURE URINE Culture Observations: LIGHT GROWTH OF MIXED SKIN NILES. NO POTENTIAL PATHOGENS SEEN. Normal [facility] Comment on above: Performed By: #### I NSULIN #### [facility] [address] [place] [address] Dr. Rachel Cortez FREE THYROXINE INDEX T7on FTI 2.07 Normal 1.30-4.50 [facility] Comment on above: Performed By: #### I NSULIN #### [facility] [address] [place] [address] Dr. Rachel Cortez T3U 35.0 % Normal 33.0-40.0 [facility] Comment on above: Performed By: #### I NSULIN #### [facility] [address] [place] [address] Dr. Rachel Cortez T4 [Mass/Vol] 5.90 ug/dL Normal 4.50-12.10 [facility] Comment on above: Performed By: #### I NSULIN #### [facility] [address] [place] [address] Dr. Rachel Cortez GLYCOHEMOGLOBIN A1Con 2022 ADA RECOMMENDATION SEE BELOW Normal [facility] Comment on above: Result Comment: ADA RECOMMENDED LIMIT 4.0 - 6.0 ADA THERAPEUTIC TARGET < 7.0 ACTION SUGGESTED > 7.0 Performed By: #### A 1C #### [facility] [address] [place] [address] Dr. Rachel Cortez Glucose [Mass/Vol] 100 mg/dL Normal [facility] Comment on above: Performed By: #### A 1C #### [facility] [address] [place] [address] Dr. Rachel Cortez HbA1c (Bld) [Mass fraction] 5.1 % Normal 4.5-6.2 [facility] Comment on above: Performed By: #### A 1C #### [facility] [address] [place] [address] Dr. Rachel Cortez IRONon 05-07-2022 Iron [Mass/Vol] 104.0 ug/dL Normal 65.0-175.0 [facility] Comment on above: Performed By: #### I NSULIN #### [facility] [address] [address] [address] Rachel Cortez LIPID PROFILEon 05-07-2022 CHOL-HDL RATIO NORM SEE BELOW Normal [facility] Comment on above: Result Comment: 3.3 - 4.4 LOW RISK 4.4 - 7.1 AVERAGE RISK 7.1 - 11.0 MODERATE RISK >11.0 HIGH RISK Performed By: #### C MP, LIPID #### [facility] [address] [address] [address] Rachel Cortez Cholesterol [Mass/Vol] 147 mg/dL Normal <=200 [facility] Comment on above: Performed By: #### C MP, LIPID #### [facility] [address] [address] [address] Rachel Cortez Cholesterol in HDL [Mass/Vol] 56 mg/dL Normal 40-60 [facility] Comment on above: Performed By: #### C MP, LIPID #### [facility] [address] [address] [address] Rachel Cortez Cholesterol in LDL [Mass/Vol] 77.8 mg/dL Normal [facility] Comment on above: Performed By: #### C MP, LIPID #### [facility] [address] [address] [address] Rachel Cortez Cholesterol.total/Ch olesterol in HDL [Mass ratio] 2.6 {ratio} Normal [facility] Comment on above: Performed By: #### C MP, LIPID #### [facility] [address] [address] [address] Rachel Cortez HDL NORMAL > or = 60 mg/dl - LOW CARDIOVASCULAR RISK <40 mg/dl - HIGH CARDIOVASCULAR RISK Normal [facility] Comment on above: Performed By: #### C MP, LIPID #### [facility] [address] [address] [address] Rachel Cortez LDL CALC NORMAL SEE BELOW Normal [facility] Comment on above: Result Comment: <100 mg/dl OPTIMAL 100 - 129 mg/dl NEAR OR ABOVE OPTIMAL 130 - 159 mg/dl BORDERLINE HIGH 160 - 189 mg/dl HIGH >190 mg/dl VERY HIGH Performed By: #### C MP, LIPID #### [facility] [address] [address] [address] Rachel Cortez Triglyceride [Mass/Vol] 66 mg/dL Normal <=150 [facility] Comment on above: Performed By: #### C MP, LIPID #### [facility] [address] [address] [address] Rachel Cortez VLDL CALC 13.2 mg/dL Normal [facility] Comment on above: Performed By: #### C MP, LIPID #### [facility] [address] [address] [address] Rachel Cortez PROF 14(COMP METB)on 023 Albumin [Mass/Vol] 4.0 g/dL Normal 3.4-5.0 [facility] Comment on above: Performed By: #### C MP, LIPID #### [facility] [address] [place] [address] Dr. Rachel Cortez Albumin/Globulin [Mass ratio] 1.3 {ratio} Normal [facility] Comment on above: Performed By: #### C MP, LIPID #### [facility] [address] [place] [address] Dr. Rachel Cortez ALP [Catalytic activity/Vol] 86 U/L Normal 46-116 [facility] Comment on above: Performed By: #### C MP, LIPID #### [facility] [address] [place] [address] Dr. Rachel Cortez ALT [Catalytic activity/Vol] 35 U/L Normal 16-63 [facility] Comment on above: Performed By: #### C MP, LIPID #### [facility] [address] [place] [address] Dr. Rachel Cortez Anion gap [Moles/Vol] 9.9 mmol/L Normal [facility] Comment on above: Performed By: #### C MP, LIPID #### [facility] [address] [place] [address] Dr. Rachel Cortez AST [Catalytic activity/Vol] 22 U/L Normal 15-37 [facility] Comment on above: Performed By: #### C MP, LIPID #### [facility] [address] [address] [address] Rachel Cortez Bilirubin [Mass/Vol] 0.4 mg/dL Normal 0.2-1.0 [facility] Comment on above: Performed By: #### C MP, LIPID #### [facility] [address] [place] [address] Dr. Rachel Cortez Calcium [Mass/Vol] 10.1 mg/dL Normal 8.5-10.1 [facility] Comment on above: Performed By: #### C MP, LIPID #### [facility] [address] [place] [address] Dr. Rachel Cortez Chloride [Moles/Vol] 107 mmol/L Normal 98-107 [facility] Comment on above: Performed By: #### C MP, LIPID #### [facility] [address] [place] [address] Dr. Rachel Cortez CO2 [Moles/Vol] 30.0 mmol/L Normal 21.0-32.0 [facility] Comment on above: Performed By: #### C MP, LIPID #### [facility] [address] [place] [address] Dr. Rachel Cortez Creatinine [Mass/Vol] 1.16 mg/dL Normal 0.70-1.30 [facility] Comment on above: Performed By: #### C MP, LIPID #### [facility] [address] [place] [address] Dr. Rachel Cortez EGFR-AF NIUEAN >60 Normal >=60 [facility] Comment on above: Performed By: #### C MP, LIPID #### [facility] [address] [place] [address] Dr. Rachel Cortez EGFR-NON AF NIUEAN >60 Normal >=60 [facility] Comment on above: Performed By: #### C MP, LIPID #### [facility] [address] [place] [address] Dr. Rachel Cortez Globulin (S) [Mass/Vol] 3.0 g/dL Normal [facility] Comment on above: Performed By: #### C MP, LIPID #### [facility] [address] [address] [address] Rachel Cortez Glucose [Mass/Vol] 88 mg/dL Normal 74-106 [facility] Comment on above: Performed By: #### C MP, LIPID #### [facility] [address] [address] [address] Rachel Cortez Potassium [Moles/Vol] 3.9 mmol/L Normal 3.5-5.1 [facility] Comment on above: Performed By: #### C MP, LIPID #### [facility] [address] [place] [address] Dr. Rachel Cortez Protein [Mass/Vol] 7.0 g/dL Normal 6.4-8.2 [facility] Comment on above: Performed By: #### C MP, LIPID #### [facility] [address] [place] [address] Dr. Rachel Cortez Sodium [Moles/Vol] 143 mmol/L Normal 136-145 [facility] Comment on above: Performed By: #### C MP, LIPID #### [facility] [address] [place] [address] Dr. Rachel Cortez Urea nitrogen [Mass/Vol] 16.0 mg/dL Normal 7.0-18.0 [facility] Comment on above: Performed By: #### C MP, LIPID #### [facility] [address] [place] [address] Dr. Rachel Cortez Urea nitrogen/Creatinine [Mass ratio] 13.8 mg/mg Normal [facility] Comment on above: Performed By: #### C MP, LIPID #### [facility] [address] [place] [address] Dr. Rachel Cortez TSHon 05-07-2022 TSH 2.417 uIU/mL Normal 0.358-3.740 [facility] Comment on above: Performed By: #### I NSULIN #### [facility] [address] [place] [address] Dr. Rachel Cortez UA RANDOM W/MICROSCOPICon BACTERIA NONE SEEN Normal NONE SEEN [facility] Comment on above: Performed By: #### I NSULIN #### [facility] [address] [place] [address] Dr. Rachel Cortez Bilirubin Ql (U) Negative Normal NEGATIVE [facility] Comment on above: Performed By: #### I NSULIN #### [facility] [address] [address] [address] Rachel Cortez CAST NONE SEEN Normal NONE SEEN [facility] Comment on above: Performed By: #### I NSULIN #### [facility] [address] [address] [address] Rachel Cortez Clarity (U) CLEAR Normal CLEAR [facility] Comment on above: Performed By: #### I NSULIN #### [facility] [address] [place] [address] Dr. Rachel Cortez Color (U) YELLOW Normal YELLOW [facility] Comment on above: Performed By: #### I NSULIN #### [facility] [address] [place] [address] Dr. Rachel Cortez Crystals LM Nom (Urine sed) NONE SEEN Normal NONE SEEN [facility] Comment on above: Performed By: #### I NSULIN #### [facility] [address] [place] [address] Dr. Rachel Cortez Epithelial cells LM Ql (Urine sed) NONE SEEN Normal NONE SEEN /RARE [facility] Comment on above: Performed By: #### I NSULIN #### [facility] [address] [place] [address] Dr. Rachel Cortez Glucose Ql (U) Negative Normal NEGATIVE [facility] Comment on above: Performed By: #### I NSULIN #### [facility] [address] [place] [address] Dr. Rachel Cortez Hemoglobin Ql (U) Negative Normal NEGATIVE [facility] Comment on above: Performed By: #### I NSULIN #### [facility] [address] [place] [address] Dr. Rachel Cortez Ketones Ql (U) Negative Normal NEGATIVE [facility] Comment on above: Performed By: #### I NSULIN #### [facility] [address] [address] [address] Rachel Cortez LEUKOCYTES Negative Normal NEGATIVE [facility] Comment on above: Performed By: #### I NSULIN #### [facility] [address] [place] [address] Dr. Rachel Cortez MUCOUS MODERATE Abnormal NONE SEEN [facility] Comment on above: Performed By: #### I NSULIN #### [facility] [address] [place] [address] Dr. Rachel Cortez Nitrite Ql (U) Negative Normal NEGATIVE [facility] Comment on above: Performed By: #### I NSULIN #### [facility] [address] [place] [address] Dr. Rachel Cortez pH (U) 6.0 [pH] Normal 5-9 [facility] Comment on above: Performed By: #### I NSULIN #### [facility] [address] [place] [address] Dr. Rachel Cortez RBC NONE SEEN Abnormal 0-2 [facility] Comment on above: Performed By: #### I NSULIN #### [facility] [address] [place] [address] Dr. Rachel Cortez SPEC GRAVITY 1.030 Abnormal 1.005-<=1.025 [facility] Comment on above: Performed By: #### I NSULIN #### [facility] [address] [place] [address] Dr. Rachel Cortez UA PROTEIN Negative Normal NEGATIVE/ TRACE [facility] Comment on above: Performed By: #### I NSULIN #### [facility] [address] [place] [address] Dr. Rachel Cortez Urobilinogen Qn (U) 1.0 {Colby'U}/dL Normal 0.2 - 1. 0 [facility] Comment on above: Performed By: #### I NSULIN #### [facility] [address] [place] [address] Dr. Rachel Cortez WBC NONE SEEN Normal NONE SEEN [facility] Comment on above: Performed By: #### I NSULIN #### [facility] [address] [place] [address] Dr. Rachel Cortez XR LSPINE MIN 4 [...] MARINA MAIN Date: 2022-05-06 16:40 Normal [facility] Coding Summary.on 03-31-2020 Coding Summary. CODING DATE: 03/31/2020 FINAL [facility] STATUS: Home (Routine DC) PAYOR: Self Pay [...] Barajas Date Saved: 03/31/2020 08:22 am Normal [facility] Consent for Treatmenton Consent for Treatment [id number] #1.00CD:127 Normal [facility] Discharge Instructionson Discharge Instructions [id number] 6#1.00CD:127 Normal [facility] ED Clinical Summaryon 2019 ED Clinical Summary [place] [id number] ED Clinical Summary Person Information Name: REY BAXTER [facility] Age: 39 Years : 1980 Sex: Male Language: Latvian PCP: Irena Gardner MD Marital Status: Single [...] 03/30/2020 14:05:58 03/30/2020 14:05:58 03/30/2020 14:05:58 ADDRESS: [address] [place] [id number] PHYS DOC NOTES: MEDICAL INFORMATION: Prescriptions Given: New Medications Printed Prescriptions acetaminophen-hydroc odone ([place] 325 mg-5 mg oral tablet) 1 Tablets [...] Follow up: With: Address: When: Irena Gardner [address] [place] [address], [facility] [place] [id number] Business (1) In 3 days 04/02/2020 DIAGNOSIS: Lumbar strain Normal [facility] ED Note-Physicianon 03-30-20 ED Note-Physician Basic Information Time Seen: Darrick Gibbs PA-C 03/30/2020 11:47 Chief Complaint Pt. presents to the ed with c/o left lower back pain that started last night while laying in bed. Pt. 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 History of Present Illness 39-year-old male comes [...] and follow-up recommendations Discharge Prescription List Prescriptions [place] 325 mg-5 mg oral tablet, 1 tab(s), Oral, q6hr, PRN predniSONE 20 mg Tab, 60 mg= 3 tab(s), Oral, Daily Robaxin-750 oral tablet, 1500 mg= 2 tab(s), Oral, TID Follow-up With When Contact Information Irena Gardner In 3 days 04/02/[address] Business (1) Additional Instructions: Patient Education Lumbosacral Strain Attestation Patient seen and evaluated by the physician assistant reading teacher. Attending physician was present in the emergency department and supervised care. This report was transcribed using voice recognition software. Every effort was made to ensure accuracy, however, inadvertently computerized manager technical support mistakes may be present. Appropriate healthcare PPE [...] oral syrup, 5 mL, Oral, QID, PRN [place] 325 mg-5 mg oral tablet, 1 tab(s), [...] acute abnormality Read By: Darrick Gibbs PA-C [facility] Comment on above: Result Comment: Elec tronically [...] Document Reviewed: 11/27/2013 ExitCare? Patient Information ?2015 [employer]. This information is not intended to replace advice given to you by your health care provider. Make sure you discuss any questions you have with your health care provider. Normal [facility] ED Patient Summaryon 020 ED Patient Summary [place] [id number] Patient Discharge Instructions Person Information Name: REY BAXTER Age: 39 Years Arrival Date: 03/30/2020 11:37:37 Discharge Diagnosis: Lumbar strain Primary Care Physician: Irena Gardner MD Provider Information Primary Provider: Shaun Tomlinson DO Advanced Director Of Institutional Giving:Darrick Gibbs PA-C The exam and treatment you received in the Emergency Department were for an urgent problem and are not intended as complete care. It is important that you follow up with a doctor, nurse practitioner, or physician?s assistant reading teacher for ongoing care. If your symptoms become worse or you do not improve as expected and you are unable to reach your usual health care provider, you should return to the Emergency Department. We are available 24 hours a day. REY BXATER has been given the following list of patient education materials, prescriptions and follow-up instructions: Follow-up Instructions: With: Address: When: Irena Turnermohinder [address] [place] [address], [facility] [place] [phone] [facility] ([facility]) In 3 days 04/02/2020 In the event that this physician does not participate in your insurance network, please consult with your insurance company to find a nearby participating provider. Patient Education Materials: Lumbosacral Strain A MESSAGE TO ALL PATIENTS REGARDING OPIOIDS PRESCRIPTION OPIOIDS: WHAT YOU NEED TO KNOW Prescription opioids can be used to help relieve gukvchvm-pl-mxpsjm pain and are often prescribed following a [...] be struggling with addiction, tell your health hospice spiritual care coordinator and ask for guidance or call SAMHSA?S National Helpline at 0-090-334-ZDFF. v Source: US Department of Health and Human Services/Center for Disease Control & Prevention [facility] Medications Given: Medication Dose Route orphenadrine 60.00 mg IntraMuscular Left Gluteus Medius acetaminophen-oxycod one 1.00 tab(s) Oral Medication Information: New Medications Printed Prescriptions acetaminophen-hydroc odone ([place] 325 mg-5 mg oral tablet) 1 Tablets [...] Comment: Pharmacy Information: Thank you for choosing [facility] Patient Education Materials: Lumbosacral Strain Lumbosacral strain [...] Document Reviewed: 11/27/2013 ExitCare? Patient Information ?2015 [employer]. This information is not intended to replace advice given to you by your health care provider. Make sure you discuss any questions you have with your health care provider. JULIANNE Mitchell BRIAN S , have received the following patient education materials/instructio ns and have verbalized understanding: Patient Education Materials: Lumbosacral Strain Follow-up Instructions: With: Address: When: Irena Gardner [facility] [place] [address] Business (1) In 3 days 04/02/2020 Patient Signature Date Clinician/Nurse Signature Date 03/30/2020 14:06:00 [facility] Prescriptions/Work Noteson 1 05-31-2019 Prescriptions/Work Notes [id number] 2#1.00CD:127 [facility] XR Spine Lumbosacral 2 or 3 Viewson [...] Mullen M.D. Transcribed by: caleb Technologist: MIGUEL [facility] Vital Signs Date Time Vital Sign Value Performing Clinician Myra chisholm 08-02-2023 15:[id number] Body height 177.8 cm Ji Fajardo MD Work Phone: [facility] 08-02-2023 15:48-0400 Body weight 72.45 kg Ji Fajardo MD Work Phone: [facility] 08-02-2023 15:48-0400 Diastolic blood pressure 74 mm[Hg] Ji Fajardo MD Work Phone: [facility] 08-02-2023 15:48-0400 Heart rate 74 /min Ji Fajardo MD Work Phone: [facility] 08-02-2023 15:48-0400 Respiratory rate 18 /min Ji Fajardo MD Work Phone: [facility] 08-02-2023 15:48-0400 SaO2% (BldA) [Mass fraction] 98 % Ji Fajardo MD Work Phone: [facility] 08-02-2023 15:48-0400 Systolic blood pressure 115 mm[Hg] Ji Fajardo MD Work Phone: [facility] Encounters Encounter Date Encounter Type Care Provider Facility Start: 12-18-2023 End: 12-19-2023 [facility] Start: 08-10-2023 End: 08-10-2023 ambulatory JI FAJARDO Facility:[facility] Start: 08-10-2023 End: 08-10-2023 ambulatory Jean Lutzanto PT Work Phone: Physical Therapy Comment on above: Dizziness Start: 08-08-2023 End: 08-08-2023 ambulatory LUIS ALBERTO DOWLING [facility] Start: 08-04-2023 Telephone encounter Ji Magdaleno [facility] Comment on above: Workers comp Start: 08-03-2023 End: 08-03-2023 ambulatory JI FAJARDO Facility:[facility] Start: 08-02-2023 End: 08-02-2023 ambulatory JI FAJARDO Facility:[facility] Start: 08-02-2023 End: 08-02-2023 Office outpatient new 45 minutes Ji Fajardo MD Work Phone: Neurology Headache [facility] Comment on above: Worsening headaches (Primary Dx); Dizziness; Toxic effect of lead, accidental or unintentional, initial encounter Start: 08-02-2023 Telephone encounter Ji Magdaleno [facility] Start: 08-01-2023 ambulatory Digna Chavez RN [facility] Start: 08-01-2023 Patient encounter procedure Digna Chavez RN NURSE AIRPORT SKILLED MAINTENANCE SUPERVISOR Comment on above: Referral Request Start: 06-21-2023 End: 06-21-2023 ambulatory OLLIE CUAUHTEMOC [facility] Start: 06-20-2023 End: 06-20-2023 ambulatory INDU SIN [facility] Start: 06-02-2023 End: 06-03-2023 ambulatory JOHN MEEKS [facility] Start: 06-01-2023 End: 06-03-2023 Emergency department patient visit MAINE FERGUSON [facility] Start: 06-01-2023 End: 06-02-2023 ambulatory IRENA GARDNER [facility] Start: 09-01-2022 End: 09-02-2022 ambulatory [...] above: Performed By: #### L EADA #### [facility] [address] [place] [address] Dr. Rachel Cortez Plan of Treatment Date Care Activity Detail Author Start: 06-02-2026 Diabetes Screening Diabetes Screenin g [facility] Start: 12-24-2023 Influenza vaccination Influenz a Vaccine (Season Ended) [facility] Start: 11-08-2023 End: 11-08-2023 Patient encounter procedure 11/08/2023 11:00 AM EDT Office Visit Neurology [address] [place] [address] Gina Dooley APRN.FOOD AND BEVERAGE SERVICE MANAGER [address] [place] [address] Neurology Start: 07-29-2023 Diabetes Screening Diabetes Screenin g [facility] Start: 07-29-2023 Screening for malign ant neoplasm of colon [facility] Start: 04-24-2023 Behavioral Health Screening Behavioral Health Screening [facility] Start: 12-23-2022 Covid-19 Vaccine () Covid-19 Vaccine () [facility] Start: 2013 Lipid panel Lipid Screening [facility] Start: 1997 Hepatitis B Vaccine (1 of 3 - 19+ 3-dose series) Hepatitis B Vaccine (1 of 3 - 19+ 3-dose series) [facility] Start: 1997 Urine microalbumin profile DTa P,Tdap,Td Vaccine (1 - Tdap) [facility] Start: 1996 Hepatitis C screening Hepatitis C Sc miller [facility] Start: 1996 HIV screening HIV Screening [facility] Payers Date Payer Category Payer Unknown [id number] 2022 Unknown [id number] 2022 Unknown [id number] 1980 Unknown [id number] 2.16.84 [id number] 1980 Unknown [id number] 2.16.84 [id number] 1978 Unknown [id number] 2.16.84 [id number] 1978 Unknown [id number] 2.16.84 [id number] 1978 Unknown [id number] 2.16.84 [id number] 1978 Unknown [id number] 2.16.84 [id number] 1978 Unknown [id number] 2.16.8 [id number] 1978 Unknown [id number] 2.16.8 [id number] 1978 Unknown [id number] 2.16.8 [id number] 1959 Unknown [id number] Social History Date Type Detail Facility Tobacco smoking stat [facility] Tobacco smoking consumption unknown [facility] Start: 1980 [facility] Start: 08-02-2023 Gender identity Not on file [facility] Start: 08-02-2023 Tobacco smoking stat [facility] Never smoked tobacco [facility] Start: 08-02-2023 Tobacco use and exposure Smokeless t obacco non-user [facility] Start: 08-02-2023 History of Social function [facility] National Score (1-10 0), lower number is lower risk 73 [facility] Clinical Notes 06-20-2023 to 08-10-2023 Jean Valencia PT - 08/10/2023 10:06 AM Jean Crump PT - 08/10/2023 9:30 AM EDTTZander Lozada MA - 08/04/2023 9:08 AM Ji Kauffman MD - 08/02/2023 4:10 PM EDT Note Date & Type Note Facility 08-10-2023 Note HNO ID: [id number] Author: JEAN VALENCIA PT Service: ? Author [...] Planned: (4) Planned Treatment Interventions: Neuromuscular re-education (23405), Manual therapy (18413), Therapeutic activities (90486), Self-senior living management (65504), Therapeutic exercise (85333), Patient/Family/Caregiver Education PLAN FOR NEXT VISIT: Patient [...] WITH LEVEL OF FUNCTION: Positional Testing Left [place]-Hallpike: Asymptomatic Right Nylen Barany: Asymptomatic Supine Head [...] and vertical head (more content not included)... [facility] 08-10-2023 History of Present illness Narrative Program_ID:[id number] Access Code: [email or web address] URL: [email or web address] Date: 08-10-2023 Prepared By: Jean Valencia Program [...] Planned: (4) Planned Treatment Interventions: Neuromuscular re-education (43318), Manual therapy (90425), Therapeutic activities (95279), Self-senior living management (27665), Therapeutic exercise (23308), Patient/Family/Caregiver Education PLAN FOR NEXT VISIT: Patient [...] WITH LEVEL OF FUNCTION: Positional Testing Left [place]-Hallpike: Asymptomatic Right Nylen Barany: Asymptomatic Supine Head [...] States/Identifies, Return Demonstration TREATMENT: PT Treatment Interventions: Self-Intermediate Management, Manual Therapy, Neuromuscular Re-Education Evaluation Therapeutic [...] Jean Valencia PT documented in this encounter [facility] 08-08-2023 Note ME Electrophysiology Consult Note Reason for visit: afib, chest pain , palpitations HPI: Rey Baxter is a 43 y.o. year old with past medical history of Lumbar radiculopathy, GERD, HERIBERTO, fatigue, paroxysmal A-fib,, lead toxicity. Patient was referred to our clinic for A-fib he was seen recently at [facility] and was found to be in A-fib [...] his lead toxicity Patient was referred to [facility] cancer gardiner but it seems as though no one [...] no gallop Systo (more content not included)... [facility] 08-04-2023 Miscellaneous Notes Patient records received via electronic fax. Uploaded to [employer] via [employer]. Please review in scanned documents tab of chart review. Zander Denson MA documented in this encounter [facility] 08-03-2023 Note HNO ID: [id number] Author: MATTHEW BANERJEE, CT Service: ? 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 EXAM: MRI - CONTRAST TYPE: GROUP II PERIPHERAL IV DATA: Ambulatory: A peripheral IV was started in the Left antecubital site with a Angio cath: 24 gauge. RADIOLOGY DEPARTMENT: MR; Exam(s) Completed: Head: Routine Brain SIGNATURE: Matthew Banerjee, CT PATIENT NAME: Rey Baxter DATE: August 03, 2023 TIME: 3:06 PM [facility] 08-02-2023 Note HNO ID: [id number] Author: JI FAJARDO MD Service: ? 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 Lead is not being chelated at [...] access for admini (more content not included)... 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 Lead is not being chelated at [...] worsening headaches. 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 Pt can trial nortriptyline 10 mg po qhs in the interim for symptomatic relief. Return 3 months or sooner if needed. Ji Fajardo MD August 04, 2023 2:09 PM documented in this encounter [facility] 08-01-2023 Miscellaneous Notes Patient calling with request for physician referral: Patient referred to Neurology Department. . Patient denies any new or worsening symptoms of which a provider is not aware: Yes. Ac took call back over for scheduling. documented in this encounter [facility] 06-21-2023 Note ME Electrophysiology Consult Note Reason for visit: afib, chest pain , palpitations, new pt HPI: Rey Baxter is a 42 y.o. year old with past medical history of Lumbar radiculopathy, GERD, HERIBERTO, fatigue, paroxysmal A-fib,, lead toxicity. 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 [facility] 06-21-2023 Note TC to MULTICULTURAL SERVICES LIBRARIAN internal re ferral for: T56.0X1S (ICD-10-CM) - Toxic effect of lead, accidental or unintentional, sequela PT states he will call back to schedule. Clinic number provided. shamir [facility] 06-20-2023 Note This proposal writer was cons ulted by Dr. Vogt to assist patient with workers comp claim and resources for lead poisoning. This proposal writer met with patient following his visit with Dr. Vogt and provided him the [place] [employer] [employer] Workers' Compensation contact. This proposal writer informed patient resources on lead poisoning will be researched as this proposal writer does not currently have information. The patient stated Dr. Vogt provided him with poison control's contact and he plans to call them. This proposal writer will research additional resources. [facility] 06-20-2023 Note HEMATOLOGY ONCOLOGY CONSULT NOTE Reason for consult: Chief Complaint: History of present illness: The patient is a 42 y.o. male with PMHx of that presented with lead poisoning. Arsanis makes plaques . Patient melts of the same and 06/01/2023 Lead,Blood,Venipuncture Order: [id number] Component Ref Range & Units 2 wk ago Lead <3.5 mcg/dL 33.8 High Comment: NOTE Patient had lead testing at [facility] and was 43 Upon evaluation, No results found for: WBC , HGB , HCT , MCV , PLT Order: [id number] Component Ref Range & Units 2 wk [...] 0.0 - 0.2 X10E9/L 0.1 Resulting Agency [facility] Specimen Collected: 06/01/23 15:10 Performed by: Dynadec Last Resulted: 06/01/23 15:22 Received From: [employer] Result Received: 06/20/23 13:09 View Encounter Received Information Result Report CBC auto differential (Order #[id number]) on 06/01/23 Lab Component SmartPhrase Guide CBC auto differential (Order #[id number]) on 06/01/23 Additional PMHx includes afib passed out work and was admitted in [place] and has been on eliquis since jun 02 by cardiology Hematologic / Oncologic hx: - Family hx of malignancy/blood disorder: none - Primary Jewel Bearing Grinder/Oncologist:none - Established diagnoses: Lead poisoning will be [...] Screening for col (more content not included)... [facility] Evaluation note Diagnosis Worsening headaches- Primary Headache Dizziness Dizziness and giddiness Toxic effect of lead, accidental or unintentional, initial encounter [facility] Diagnosis Dizziness Dizziness and giddiness documented in this encounter [facility] Summary Purpose Family History No Family [...] Procedures PROVIDER ORDERED FOLLOW UP OFFICE/OUTPATIENT [facility] MDM [address] [place] [address] [place] [address] Referral ID Status Reason Start Date Expiration Date Visits Requested Visits Authorized [id number] Pending Review PCP Requested Referral 11/01/2023 08/01/2024 1 1 Specialty Diagnoses / Procedures Referred By Contac t Referred To Contact [facility] Diagnoses Dizziness Procedures CONSULT TO PHYSICAL THERAPY PHYSICAL THERAPY EVALUATION HIGH COMPLEX [address] [place] [address] [place] [address] [facility] [place] [address] [place] [address] Referral ID Status Reason Start Date Expiration Date Visits Requested Visits Authorized [id number] Pending Review Auto-Generat ed Referral 08/02/2023 08/01/2024 1 1 Specialty Diagnoses / Procedures Referred By Contac t Referred To Contact [facility] Diagnoses Worsening headaches Procedures MRI BRAIN WO/W IVCON MRI BRAIN BRAIN STEM W/O W/[place] [address] [place] [address] [facility] [place] [address] Referral ID Status Reason Start Date Expiration Date V isits Requested Visits Authorized [id number] Closed Auto-Generate d Referral 08/02/2023 08/31/2024 1 1 Additional Source Comments (unrecognized sect ion and content) No Status Records FoundNo Status Records FoundNo Status Records FoundNo Status Records FoundNo Status Records Found INFORMATION SOURCE (unrecogn ized section and content) DATE CREATED AUTHOR 03/31/2020 [facility] DATE CREATED AUTHOR AUTHOR'S ORGANIZ ATION 09/05/2022 [facility] DATE CREATED AUTHOR AUTHOR'S ORGANIZ ATION 06/05/2023 [facility] DATE CREATED AUTHOR AUTHOR'S ORGANIZ ATION 08/14/2023 [facility] DATE CREATED AUTHOR AUTHOR'S ORGANIZ ATION 12/20/2023 [facility] Source Comments (unrecognize d section and content) In the event this informatio n is protected by the Federal Confidentiality of Alcohol and Drug Abuse Patient Records regulations: The Federal rules restrict any use of the information to criminally investigate or prosecute any alcohol or drug abuse patient.[facility] the event this information is protected by the Federal Confidentiality of Alcohol and Drug Abuse Patient Records regulations: The Federal rules restrict any use of the information to criminally investigate or prosecute any alcohol or drug abuse patient.[facility] the event this information is protected by the Federal Confidentiality of Alcohol and Drug Abuse Patient Records regulations: The Federal rules restrict any use of the information to criminally investigate or prosecute any alcohol or drug abuse patient.[facility] the event this information is protected by the Federal Confidentiality of Alcohol and Drug Abuse Patient Records regulations: The Federal rules restrict any use of the information to criminally investigate or prosecute any alcohol or drug abuse patient.[facility] the event this information is protected by the Federal Confidentiality of Alcohol and Drug Abuse Patient Records regulations: The Federal rules restrict any use of the information to criminally investigate or prosecute any alcohol or drug abuse patient.[facility] Reason for Visit (unrecogniz ed section and content) Reason Comments Referral Request Reason Comments Workers comp Reason Comments New Patient Headaches Specialty Diagnoses / Procedures Referred By Contac t Referred To Contact Neurology / HEADACHE Diagnoses Intake Simon / RM 164 GARCIA, Numbness/tingling, Dizziness, Confusion. Procedures NEW NEUR HEADACHE Ashley Foster, FOOD AND BEVERAGE SERVICE MANAGER [address] [place] [address] [place] [address] [place] [address] Referral ID Status Reason Start Date Expiration Date V isits Requested Visits Authorized [id number] Authorized 07/10/2023 01/10/2024 2 2 Reason Comments PT Eval Specialty Diagnoses / Procedures Referred By Contac t Referred To Contact [facility] Diagnoses Dizziness Procedures CONSULT TO PHYSICAL THERAPY PHYSICAL THERAPY EVALUATION HIGH COMPLEX [address] [place] [address] [place] [address] [facility] [place] [address] [place] [address] Referral ID Status Reason Start Date Expiration Date Visits Requested Visits Authorized [id number] Pending Review Auto-Generat ed Referral 08/02/2023 08/01/2024 1 1 Care Teams (unrecognized sec tion and content) Mineral Engineer Relationship Specialty Start Date End Date Ollie Pitt [address] [facility] [place] [address] 06/26/23 Ashley Foster CNP [address] [place] [address] Referring Family Medicine 07/26/23 Mineral Engineer Relationship Specialty Start Date End Date Ollie Pitt [address] [place] [address] 06/26/23 Ashley Foster CNP [address] [facility] [place] [address] Referring Family Medicine 07/26/23 Mineral Engineer Relationship Specialty Start Date End Date WallysoumyaOllie [address] [facility] [place] [address] 06/26/23 Ashley Foster CNP [address] [place] [address] Referring Family Medicine 07/26/23 Mineral Engineer Relationship Specialty Start Date End Date WallysoumyaOllie [address] [place] [address] 06/26/23 Ashley Foster CNP [address] [place], [place] [id number] Referring Family Medicine 07/26/23 Mineral Engineer Relationship Specialty Start Date End Date Ollie Pitt [address] [place], [place] [id number] 06/26/23 Ashley Foster CNP [address] [place], [place] [id number] Referring Family Medicine 07/26/23 FOR RECORDS PERTAINING [...] BE BASED ON THE PRIMARY CLINICAL RECORDS. [facility]. provides no warranty or guarantee of the accuracy or completeness of information in this document.
--- NOTE | 2023-12-29 07:11 | CT_ITS ---
The [address] [address] Patient Name: YAMILET WHITAKER MRN: [id number] date: 1980 Sex: M Assigned Patient Location: CT Current Patient Location: CT Accession/Order Number: [id number] Exam Date: 12/29/2023 08:08 Report Date: 12/29/2023 08:36 At the request of: IRENA JEFFERY Procedure: CT abdomen pelvis w con EXAM: CT abdomen pelvis w con HISTORY: Right upper quadrant pain, R10.11 COMPARISON: CT abdomen and pelvis 07/12/2023.. TECHNIQUE: Following intravenous administration of 100 mL of Omnipaque 350, axial soft tissue windows of the abdomen and pelvis were performed with coronal and sagittal reformats. CT dose reduction technique was used including Automated Exposure Control. Findings: Benign right lower lobe calcified granuloma. Subtle right middle lobe nodular tree-in-bud opacities surgically for proctocolitis. ABDOMEN: Stable segment 7 hepatic low-attenuation lesion, too small to characterize. The gallbladder, pancreas, and adrenal glands are unremarkable. Splenic calcifications likely relating to prior granulomatous disease. No renal stones or collecting system dilatation. The bilateral ureters are nondilated. There is a nonobstructing left mid abdominal small bowel bowel intussusception. No bowel wall thickening. The appendix is nondilated. The aorta is normal caliber. No enlarged abdominal lymph nodes or free abdominal fluid. Pelvis: Unremarkable bladder. The prostate is nonenlarged. No enlarged pelvic lymph nodes nodes or E pelvic fluid. No aggressive sclerotic or lytic osseous lesions. CT/CT abdomen pelvis w con IMPRESSION: 1. Nonobstructing left mid abdominal small bowel intussusception. Electronically authenticated by: CLAUDIA RILEY Date: 12/29/2023 08:36
== END 2023-12-29 07:09 | disposition home or self-care (01) ==
LOC: CT 07:08
PROVIDERS: PCP Family Medicine; Visit Provider Family Medicine
DX: R10.11 Right upper quadrant pain (principal); K56.1 Intussusception
CPT/HCPCS: 74177; Q9967

== ENCOUNTER 2024-01-06 10:58 | Outpatient (OUT) | payer SELFPAY ==
--- NOTE | 2024-01-06 | CT_ITS ---
The [address] [address] Patient Name: YAMILET WHITAKER MRN: [id number] date: 1980 Sex: M Assigned Patient Location: CT Current Patient Location: Accession/Order Number: [id number] Exam Date: 01/06/2024 11:20 Report Date: 01/07/2024 05:05 At the request of: IRENA JEFFERY Procedure: CT chest w con EXAMINATION: CT chest w con HISTORY: R07.9 Chest pain; R10.11 RUQ abd. pain COMPARISON: No relevant comparison available. TECHNIQUE: Multi-planar CT images were obtained without and/or with IV contrast as indicated by examination type. Axial, Coronal, and Sagittal images. Dose reduction techniques were achieved by using automated exposure control and/or adjustment of mA and/or kV according to patient size and/or use of iterative reconstruction technique. FINDINGS: LUNGS: Scattered calcified nodules compatible with chronic granulomas. No acute infiltrates, significant chronic interstitial changes, or suspicious nodules. PLEURA: No mass, effusion, or pneumothorax. VASCULATURE: No abnormality. ALLYSSA: Calcified hilar lymph nodes compatible with chronic granulomatous disease. MEDIASTINUM: Single, slightly prominent pretracheal lymph node, 1.7 cm long axis. CARDIAC: No enlargement or pericardial thickening.. Coronary artery calcifications: AORTA: No aneurysm or dissection. CHEST WALL: No mass or axillary adenopathy. BONES: No bone lesion or fracture. LIMITED ABDOMEN: No suspicious findings Limited images of the upper abdomen. OTHER: Negative. CT/CT chest w con IMPRESSION: 1. No abnormal or suspicious findings to account for patient's symptoms. Electronically authenticated by: MARINA MAIN Date: 01/07/2024 05:05
--- OUTSIDE RECORDS SUMMARY | 2024-01-06 11:00 | XMS_ITS | CCD ---
Author Organization [facility] CliniSypr Care Team Providers Care Field Contact Technician Name Role Phone LATIA ., DR [...] ., DR OSBORN Primary Care Unavailable IRENA JEFFERY Primary Care Unavailable JUSTEN HAQUE Attending Unavailable SHADY BRYANT Admitting Unavailable CARDIOLOGY, [facility] Consulting Unavailable MAINE FERGUSON Attending Unavailable MAINE FERGUSON Referring Unavailable IRENA JEFFERY Primary Care Unavailable JOHN MEEKS Attending Unavailable JOHN MEEKS Referring Unavailable IRENA JEFFERY Primary Care Unavailable Ollie Pitt Unavailable Ashley Foster CNP Unavailable [phone] JI FAJARDO Referring Unavailable JI FAJARDO Referring Unavailable JI FAJARDO Attending Unavailable BERNARDO HAYNES Attending Unavailable OLLIE PITT Attending Unavailable LUIS ALBERTO DOWLING Attending Unavailable INDU VOGT Attending Unavailable Ollie Pitt NP Unavailable Medications Current Medications Medication Drug Class(es) Dates Sig (Normalized) Sig (Original) apixaban 5 mg oral tablet (5 sources) Factor Xa Inhibitor Start: 07-10-2023 take 1 tablet by mouth every twelve hours ELIQUIS 5 mg tab(s) Take 1 tablet by mouth every 12 hours. 07/10/2023 Active Comment on above: Take 1 tablet by live th every 12 hours. aspirin 81 mg delayed release oral tablet (5 sources) Platelet Aggregation Inhibitor, Nonsteroidal Anti-inflammatory Drug Start: 06-02-2023 aspirin, enteric coated (ASPIRIN, ENTERIC COATED) 81 mg EC tablet Take 81 mg by mouth. 06/02/2023 Active Comment on above: Take 81 mg by mouth. citalopram 10 mg oral tablet (5 sources) Serotonin Reuptake Inhibitor citalopram hydrobromide (CELEXA) 10 mg tablet Take 10 mg by mouth. Active Comment on above: Take 10 mg by mouth. hydrOXYzine hydrochloride 25 mg oral tablet (5 sources) Antihistamine Start: 06-27-2023 take 1 tablet by mouth every eight hours as needed hydrOXYzine HCl (ATARAX) 25 mg tablet Take 25 mg by mouth every 8 hours as needed. 06/27/2023 Active Comment on above: Take 25 mg by mouth every 8 hours as needed. nortriptyline 10 mg oral capsule (5 sources) Tricyclic Antidepressant Start: 08-02-2023 take 1 capsule by mouth once daily at bedtime nortriptyline (PAMELOR) 10 mg capsule Indications: Dizziness Take 1 capsule by mouth daily at bedtime. 90 capsule 1 08/02/2023 Active Comment on above: Take 1 capsule by mo uth daily at bedtime. rizatriptan 10 mg oral tablet (5 sources) Serotonin-1b and Serotonin-1d Receptor Agonist Start: [...] contrast (will be provided with radiology test) (3 sources) Start: 08-02-2023 End: 08-03-2023 inject 1 [...] MR contrast administration guidelines link 1 Each 08/02/2023 08/03/2023 Start: 08-02-2023 End: 08-03-2023 inject 1 dose [...] 08/03/2023 Comment on above: MRI Brain Inject, in travenously, once for 1 dose.No IV access, insert [...] INCONTINENCE] Onset: 05-13-2022 Chronic Headache; including migraine (2 sources) Headache; Translations: [Worsening headaches] 08-02-2023 Episodic Headache; [...] [facility] Facility CNTHERAPYon 08-10-2023 CNTHERAPY OT[facility] REY BAXTER ([id number]) 1980 M Date Time Provider Department 08/10/23 9:30 AM ERIKJEAN [facility] Date Time Provider Department Center 08/10/2023 9:30 AM [id number] VALENCIA [facility] [place] Reason for Visit: PT Eval [747] Visit [...] 1 capsule by mouth daily at bedtime. 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 Author Type: Physical Therapist Type: Therapy (PT/OT/Speech/Resp) Filed: 08/10/2023 10:06 Note Text: Program_ID:[id number] Access Code: [email or web address] URL: [email or web address] Date: 08-10-2023 Prepared By: Jean Valencia Program [...] - 3 sets - 10 reps Normal [facility] Office Visiton 08-08-2023 Follow-up visit [id number] Rey Baxter 1980 M Date Provider Department Center 08/08/2023 241-LUIS ALBERTO DOWLING CARD [facility] Family History Problem Relation Age of Onset Lupus Mother Muscular dystrophy Mother Diabetes Other Family Status - Relation Status Age at Mother Other Level of Service:13009 OR OFFICE/OUTPATIENT NEW MODERATE MDM 45 MINUTES Normal [facility] CNPNon 08-04-2023 CNPN Telephone (NUMBHT) REY BAXTER ([id number]) 1980 M Date Time Provider Department 08/04/23 JI FAJARDO During your visit today, we recorded the following information about you: Zander Denson MA 08/04/2023 9:09 AM Signed Patient records received via electronic fax. Uploaded to [employer] via [employer]. Please review in scanned documents tab of [...] Status:Closed by ZANDER DENSON on 08/04/23 Normal [facility] MR Brain WO and W contrast I Von 08-03-2023 IMPRESSION: Minimal paranasal sinus inflammatory changes. Otherwise normal study. Slot Floor Attendant: TAE Transcribe Date/Time: Aug 03 2023 3:53P Dictated by : LUIS ALBERTO SMITH MD This examination was interpreted and the report reviewed and electronically signed by: LUIS ALBERTO SMITH MD on Aug 03 2023 3:57PM [facility] DIVISION OF RADIOLOGY * * *Final Report* * * DATE OF EXAM: Aug 03 2023 3:38PM LN 0295 - MRI BRAIN WO/W IVCON / [...] ethmoid air cells, right greater than left. DIVISION OF RADIOLOGY Provider, [facility] [place] - 08/03/2023 * * *Final Report* * * DATE [...] ethmoid air cells, right greater than left. IMPRESSION IMPRESSION: Minimal paranasal sinus inflammatory changes. Otherwise normal study. Slot [facility] Trans[facility] Date/Time: Aug 03 2023 3:53P Dictated by : LUIS ALBERTO SMITH MD This examination was interpreted and the report reviewed and electronically signed by: LUIS ALBERTO SMTIH MD on Aug 03 2023 3:57PM [facility] Radiology Study observation (narrative) [facility] MR Brain WO and W contrast I VOrdered By: Ccf Provider on 08-03-2023 [facility] MRI BRAIN WO/W IVCONon 08-02 MRI [...] paranasal sinus inflammatory changes. Otherwise normal study. Slot Floor Attendant: TAE Transcribe Date/Time: Aug 03 2023 3:53P Dictated by : LUIS ALBERTO SMITH MD This examination was interpreted and the report reviewed and electronically signed by: LUIS ALBERTO SMITH MD on Aug 03 2023 3:57PM EST [id number] Normal [facility] CNOVon 08-02-2023 CNOV Office Visit ([facility]) REY BAXTER ([id number]) 1980 M Date Time Provider Department 08/02/23 4:00 PM JI FAJARDO [facility] During your visit today, we recorded the following information about you: Pulse Respiration Blood pressure Weight 74/minute 18/minute 115/74 72.4 kg Height 1.778 m Ji Fajardo MD 08/04/2023 2:09 PM Signed [facility] NEW EVALUATION August 04, 2023 4:00 PM Pt is 43 year old male from [place], [place] who presents with headaches that appears subsequent to 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 Lead is not being chelated at [...] iv contrast (more content not included)... Normal [facility] CNPNon 08-02-2023 CNPN Telephone ([facility]) JULIANNEREY S ([id number]) 1980 M Date Time Provider Department 08/02/23 [...] Of Date: 08/02/2023 (None) Encounter Status:Closed by AJRETTZANDER on 08/03/23 [facility] 36on 06-22-2023 36 Per Ollie Pitt via [...] so stress test just needs done catia. [facility] 36 Zywie called this morning to [...] the entire left side of his body. 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 7) to keep follow up with the current lead poisoning expert 80 please reach out tp poison control [place] for direction [phone] Normal [facility] CBC AND AUTO DIFFon 06-02-19 24 ABSOLUTE BASOPHIL 0.1 X10E9/L Normal 0.0-0.2 [facility] Comment on above: Performed By: #### C BCA, CMP, 77468-2, PINR, 41046-2, 77951-8, 32438-2, 09026-7, THYR #### [facility] ([id number]) [address] [place] [address] [place] [address] ABSOLUTE NEUTROPHIL 3.9 X10E9/L Normal 1.5-6.6 [facility] Comment on above: Performed By: #### C BCA, CMP, 99422-3, PINR, 30290-0, 77859-7, 11457-1, 94453-8, THYR #### [facility] ([id number]) [address] [place] [address] 44516 Basophils/100 WBC (Bld) 0.8 % Normal [facility] Comment on above: Performed By: #### C BCA, CMP, 83579-4, PINR, 04783-4, 96385-5, 14791-6, 93547-0, THYR #### [facility] ([id number]) [address] [place] [address] 04288 Eosinophils (Bld) [#/Vol] 0.1 10*3/uL Normal 0.0-0.4 [facility] Comment on above: Performed By: #### C BCA, CMP, 48112-9, PINR, 17811-8, 68799-3, 03403-4, 29213-9, THYR #### [facility] ([id number]) [address] [place] [address] 78597 Eosinophils/100 WBC (Bld) 1.4 % Normal [facility] Comment on above: Performed By: #### C BCA, CMP, 48963-3, PINR, 27886-1, 17154-2, 49493-3, 00949-9, THYR #### [facility] ([id number]) [address] [place] [address] 48877 Erythrocyte distribution width (RBC) [Ratio] 13.2 % Normal 11.5-15.0 [facility] Comment on above: Performed By: #### C BCA, CMP, 97758-2, PINR, 00200-5, 68963-9, 99536-9, 41799-1, THYR #### [facility] ([id number]) [address] [place] [address] 68881 Hematocrit (Bld) [Volume fraction] 40.7 % Normal 39-49 [facility] Comment on above: Performed By: #### C BCA, CMP, 76639-9, PINR, 25886-1, 83543-3, 46461-2, 18909-4, THYR #### [facility] ([id number]) [address] [place] [address] 87907 Hemoglobin (Bld) [Mass/Vol] 14.2 g/dL Normal 13.0-17.0 [facility] Comment on above: Performed By: #### C BCA, CMP, 55308-5, PINR, 13874-3, 60394-1, 16864-8, 85367-5, THYR #### [facility] ([id number]) [address] [place] [address] 02953 Lymphocytes (Bld) [#/Vol] 2.2 10*3/uL Normal 1.0-3.5 [facility] Comment on above: Performed By: #### C BCA, CMP, 39079-7, PINR, 29227-4, 92283-8, 03305-9, 09411-3, THYR #### [facility] ([id number]) [address] [place] [address] 81932 Lymphocytes/100 WBC (Bld) 31.4 % Normal [facility] Comment on above: Performed By: #### C BCA, CMP, 25918-2, PINR, 99320-4, 33814-4, 67193-8, 47067-2, THYR #### [facility] ([id number]) [address] [place] [address] 36534 MCH (RBC) [Entitic mass] 30.7 pg Normal 27-34 [facility] Comment on above: Performed By: #### C BCA, CMP, 54175-1, PINR, 58039-3, 00299-5, 85424-5, 69973-0, THYR #### [facility] ([id number]) [address] [place] [address] 92252 MCHC (RBC) [Mass/Vol] 34.9 g/dL Normal 32-36 [facility] Comment on above: Performed By: #### C BCA, CMP, 60552-7, PINR, 99051-8, 04590-9, 28355-6, 57633-5, THYR #### [facility] ([id number]) [address] [place] [address] 46641 MCV (RBC) [Entitic vol] 88 fL Normal 80-100 [facility] Comment on above: Performed By: #### C BCA, CMP, 52751-7, PINR, 98545-1, 37536-1, 58761-4, 02671-8, THYR #### [facility] ([id number]) [address] [place] [address] 20683 Monocytes (Bld) [#/Vol] 0.7 10*3/uL Normal 0-0.9 [facility] Comment on above: Performed By: #### C BCA, CMP, 01254-0, PINR, 31869-9, 45367-2, 05057-6, 86517-6, THYR #### [facility] ([id number]) [address] [place] [address] 88513 Monocytes/100 WBC (Bld) 10.7 % Normal [facility] Comment on above: Performed By: #### C BCA, CMP, 29465-1, PINR, 00023-7, 42220-3, 48269-4, 31698-3, THYR #### [facility] ([id number]) [address] [place] [address] 26828 Neutrophils/100 WBC (Bld) 55.7 % Normal [facility] Comment on above: Performed By: #### C BCA, CMP, 33761-9, PINR, 18078-0, 68545-0, 81653-0, 70549-1, THYR #### [facility] ([id number]) [address] [place] [address] 92397 Platelet mean volume (Bld) [Entitic vol] 8.5 fL Normal 7-12 [facility] Comment on above: Performed By: #### C BCA, CMP, 80683-7, PINR, 49420-3, 67317-0, 33660-0, 03567-1, THYR #### [facility] ([id number]) [address] [place] [address] 45067 Platelets (Bld) [#/Vol] 192 10*3/uL Normal 150-450 [facility] Comment on above: Performed By: #### C BCA, CMP, 04141-2, PINR, 27735-9, 60953-3, 54576-6, 67509-9, THYR #### [facility] ([id number]) [address] [place] [address] 90086 RBC COUNT 4.61 X10E12/L Normal 4.10-5.70 [facility] Comment on above: Performed By: #### C BCA, CMP, 27785-5, PINR, 84421-2, 78035-7, 21954-3, 35112-6, THYR #### [facility] ([id number]) [address] [place] [address] 22495 WBC (Bld) [#/Vol] 7.0 10*3/uL Normal 4.0-11.0 [facility] Comment on above: Performed By: #### C BCA, CMP, 44732-6, PINR, 09816-9, 57609-4, 02689-5, 36111-7, THYR #### [facility] ([id number]) [address] [place] [address] 72443 COMPREHENSIVE METABOLIC PANE Nik 06-02-2023 Albumin [Mass/Vol] 4.2 g/dL Normal 3.2-5.3 [facility] Comment on above: Performed By: #### C BCA, CMP, 38246-6, PINR, 37444-2, 31015-3, 27137-0, 68421-6, THYR #### [facility] ([id number]) [address] [place] [address] 39121 ALP [Catalytic activity/Vol] 84 U/L Normal 39-130 [facility] Comment on above: Performed By: #### C BCA, CMP, 34596-0, PINR, 57874-2, 19232-9, 38845-8, 17618-1, THYR #### [facility] ([id number]) [address] [place] [address] 22235 ALT [Catalytic activity/Vol] 27 U/L Normal 0-40 [facility] Comment on above: Performed By: #### C BCA, CMP, 37034-7, PINR, 80475-6, 31965-6, 27821-3, 67964-3, THYR #### [facility] ([id number]) [address] [place] [address] 99950 Anion gap [Moles/Vol] 8 mmol/L Normal 5-15 [facility] Comment on above: Performed By: #### C BCA, CMP, 17061-9, PINR, 19325-2, 75494-9, 87237-0, 56156-0, THYR #### [facility] ([id number]) [address] [place] [address] 93196 AST [Catalytic activity/Vol] 22 U/L Normal 0-41 [facility] Comment on above: Performed By: #### C BCA, CMP, 06131-2, PINR, 41122-9, 27073-4, 15621-5, 05023-9, THYR #### [facility] ([id number]) [address] [place] [address] 72726 Bilirubin [Mass/Vol] 0.8 mg/dL Normal 0.3-1.2 [facility] Comment on above: Performed By: #### C BCA, CMP, 04420-2, PINR, 32789-3, 92981-1, 57105-1, 73198-3, THYR #### [facility] ([id number]) [address] [place] [address] 96745 Calcium [Mass/Vol] 10.0 mg/dL Normal 8.5-10.5 [facility] Comment on above: Performed By: #### C BCA, CMP, 48160-2, PINR, 87166-1, 61334-7, 00132-0, 86807-7, THYR #### [facility] ([id number]) [address] [place] [address] 71321 Chloride [Moles/Vol] 102 mmol/L Normal 98-109 [facility] Comment on above: Performed By: #### C BCA, CMP, 64842-6, PINR, 14856-5, 09520-1, 68545-2, 60583-3, THYR #### [facility] ([id number]) [address] [place] [address] 05936 CO2 [Moles/Vol] 26 mmol/L Normal 22-32 [facility] Comment on above: Performed By: #### C BCA, CMP, 35173-2, PINR, 31146-8, 47506-7, 41993-4, 79454-4, THYR #### [facility] ([id number]) [address] [place] [address] 07173 Creatinine [Mass/Vol] 1.07 mg/dL Normal 0.70-1.20 [facility] Comment on above: Result Comment: METH OD TRACEABLE TO IDMS STANDARD Performed By: #### C BCA, CMP, 56543-6, PINR, 20124-9, 09331-2, 55548-5, 77794-0, THYR #### [facility] ([id number]) [address] [place] [address] 37804 GFR/1.73 sq M.predicted among non-blacks MDRD (S/P/Bld) [Vol rate/Area] 88 mL/min/{1.73_m2} Normal >59 [facility] Comment on above: Result Comment: Reported eGFR is based on the CKD-EPI 2020 equation that does not use a race coefficient. Performed By: #### C BCA, CMP, 83538-8, PINR, 90355-1, 35630-8, 99437-7, 31902-3, THYR #### [facility] ([id number]) [address] [place] [address] 13098 Glucose [Mass/Vol] 94 mg/dL Normal 65-99 [facility] Comment on above: Performed By: #### C BCA, CMP, 85348-5, PINR, 20904-6, 73721-0, 67684-3, 72593-8, THYR #### [facility] ([id number]) [address] [place] [address] 69734 Potassium [Moles/Vol] 4.0 mmol/L Normal 3.5-5.0 [facility] Comment on above: Performed By: #### C BCA, CMP, 58181-2, PINR, 77124-2, 33263-6, 38593-1, 84796-2, THYR #### [facility] ([id number]) [address] [place] [address] 62284 Protein [Mass/Vol] 7.0 g/dL Normal 6.0-8.0 [facility] Comment on above: Performed By: #### C BCA, CMP, 32620-8, PINR, 48602-8, 22475-7, 66838-6, 46631-2, THYR #### [facility] ([id number]) [address] [place] [address] 89331 Sodium [Moles/Vol] 136 mmol/L Normal 134-146 [facility] Comment on above: Performed By: #### C BCA, CMP, 90524-2, PINR, 71051-0, 12494-2, 62499-5, 85102-4, THYR #### [facility] ([id number]) [address] [place] [address] 11590 Urea nitrogen [Mass/Vol] 20 mg/dL Normal 5-23 [facility] Comment on above: Performed By: #### C BCA, CMP, 11248-4, PINR, 20609-1, 75319-2, 80325-3, 26814-7, THYR #### [facility] ([id number]) [address] [place] [address] 37993 MAGNESIUMon 06-02-2023 Magnesium [Mass/Vol] 2.1 mg/dL Normal 1.8-2.6 [facility] Comment on above: Performed By: #### C BCA, CMP, 33934-1, PINR, 66485-5, 86486-6, 77767-1, 34102-8, THYR #### [facility] ([id number]) [address] [place] [address] 57677 TROPONIN Ion 06-02-2023 Troponin I.cardiac [Mass/Vol] ng/mL Normal 0.00-0.04 [facility] Comment on above: Performed By: #### C BCA, CMP, 55924-6, PINR, 05655-8, 62076-0, 44254-2, 50000-8, THYR #### [facility] ([id number]) [address] [place] [address] 07547 CBC AND AUTO DIFFon 06-01-19 24 ABSOLUTE BASOPHIL 0.1 X10E9/L Normal 0.0-0.2 [facility] Comment on above: Performed By: #### C BCA, CMP, 42839-2, PINR, 09911-2, 49483-2, 29397-2, 12516-7, THYR #### [facility] ([id number]) [address] [place] [address] 32209 ABSOLUTE NEUTROPHIL 5.1 X10E9/L Normal 1.5-6.6 [facility] Comment on above: Performed By: #### C BCA, CMP, 40033-1, PINR, 29623-2, 68932-3, 40367-2, 49453-0, THYR #### [facility] ([id number]) [address] [place] [address] 84123 Basophils/100 WBC (Bld) 0.8 % Normal [facility] Comment on above: Performed By: #### C BCA, CMP, 54835-8, PINR, 45361-4, 52932-3, 66620-0, 84056-8, THYR #### [facility] ([id number]) [address] [place] [address] 48240 Eosinophils (Bld) [#/Vol] 0.1 10*3/uL Normal 0.0-0.4 [facility] Comment on above: Performed By: #### C BCA, CMP, 28494-3, PINR, 28214-6, 60147-6, 78928-4, 53364-4, THYR #### [facility] ([id number]) [address] [place] [address] 82728 Eosinophils/100 WBC (Bld) 1.1 % Normal [facility] Comment on above: Performed By: #### C BCA, CMP, 50678-6, PINR, 22825-0, 08744-9, 41231-1, 99173-8, THYR #### [facility] ([id number]) [address] [place] [address] 31396 Erythrocyte distribution width (RBC) [Ratio] 13.0 % Normal 11.5-15.0 [facility] Comment on above: Performed By: #### C BCA, CMP, 24451-3, PINR, 45964-0, 34098-8, 67230-6, 70233-9, THYR #### [facility] ([id number]) [address] [place] [address] 26728 Hematocrit (Bld) [Volume fraction] 41.5 % Normal 39-49 [facility] Comment on above: Performed By: #### C BCA, CMP, 67904-1, PINR, 48050-3, 66063-5, 60045-4, 61316-9, THYR #### [facility] ([id number]) [address] [place] [address] 05609 Hemoglobin (Bld) [Mass/Vol] 14.6 g/dL Normal 13.0-17.0 [facility] Comment on above: Performed By: #### C BCA, CMP, 34757-8, PINR, 19957-8, 00564-2, 01699-6, 88963-8, THYR #### [facility] ([id number]) [address] [place] [address] 45888 Lymphocytes (Bld) [#/Vol] 1.7 10*3/uL Normal 1.0-3.5 [facility] Comment on above: Performed By: #### C BCA, CMP, 84889-5, PINR, 79587-1, 13259-6, 30338-3, 45715-1, THYR #### [facility] ([id number]) [address] [place] [address] 06280 Lymphocytes/100 WBC (Bld) 22.2 % Normal [facility] Comment on above: Performed By: #### C BCA, CMP, 91939-2, PINR, 09795-6, 14326-9, 68530-8, 71016-0, THYR #### [facility] ([id number]) [address] [place] [address] 06579 MCH (RBC) [Entitic mass] 30.4 pg Normal 27-34 [facility] Comment on above: Performed By: #### C BCA, CMP, 90686-7, PINR, 29948-4, 12267-5, 12708-3, 81633-6, THYR #### [facility] ([id number]) [address] [place] [address] [phone] MCHC (RBC) [Mass/Vol] 35.1 g/dL Normal 32-36 [facility] Comment on above: Performed By: #### C BCA, CMP, 44622-4, PINR, 88112-4, 74910-1, 46754-0, 03976-8, THYR #### [facility] ([id number]) [address] [place] [address] [phone] MCV (RBC) [Entitic vol] 87 fL Normal 80-100 [facility] Comment on above: Performed By: #### C BCA, CMP, 68053-4, PINR, 05789-9, 59199-9, 24886-0, 48630-3, THYR #### [facility] ([id number]) [address] [place] [address] [phone] Monocytes (Bld) [#/Vol] 0.6 10*3/uL Normal 0-0.9 [facility] Comment on above: Performed By: #### C BCA, CMP, 95073-3, PINR, 77946-8, 41375-7, 50712-3, 57660-1, THYR #### [facility] ([id number]) [address] [place] [address] [id number] Monocytes/100 WBC (Bld) 7.8 % Normal [facility] Comment on above: Performed By: #### C BCA, CMP, 57843-7, PINR, 39398-9, 08659-8, 33791-0, 58313-7, THYR #### [facility] ([id number]) [address] [place] [address] 76948 Neutrophils/100 WBC (Bld) 68.1 % Normal [facility] Comment on above: Performed By: #### C BCA, CMP, 04895-5, PINR, 54439-5, 91837-7, 45961-6, 99178-0, THYR #### [facility] ([id number]) [address] [place] [address] [phone] Platelet mean volume (Bld) [Entitic vol] 8.3 fL Normal 7-12 [facility] Comment on above: Performed By: #### C BCA, CMP, 78932-3, PINR, 93753-5, 21004-1, 53017-8, 08719-3, THYR #### [facility] ([id number]) [address] [place] [address] 63240 Platelets (Bld) [#/Vol] 207 10*3/uL Normal 150-450 [facility] Comment on above: Performed By: #### C BCA, CMP, 56129-5, PINR, 15934-4, 49824-9, 17318-1, 75397-4, THYR #### [facility] ([id number]) [address] [place] [address] 06387 RBC COUNT 4.79 X10E12/L Normal 4.10-5.70 [facility] Comment on above: Performed By: #### C BCA, CMP, 46768-7, PINR, 14597-0, 90555-9, 77922-8, 66684-5, THYR #### [facility] ([id number]) [address] [place] [address] 87016 WBC (Bld) [#/Vol] 7.5 10*3/uL Normal 4.0-11.0 [facility] Comment on above: Performed By: #### C BCA, CMP, 21848-7, PINR, 74469-4, 60707-8, 21512-1, 02157-3, THYR #### [facility] ([id number]) [address] [place] [address] 55477 COMPREHENSIVE METABOLIC PANE Nik 06-01-2023 Albumin [Mass/Vol] 5.0 g/dL Normal 3.2-5.3 [facility] Comment on above: Performed By: #### C BCA, CMP, 21615-5, PINR, 13227-6, 40556-3, 29263-6, 19071-1, THYR #### [facility] ([id number]) [address] [place] [address] 67330 ALP [Catalytic activity/Vol] 90 U/L Normal 39-130 [facility] Comment on above: Performed By: #### C BCA, CMP, 60851-8, PINR, 59014-8, 91855-5, 77659-6, 39341-9, THYR #### [facility] ([id number]) [address] [place] [address] 38564 ALT [Catalytic activity/Vol] 32 U/L Normal 0-40 [facility] Comment on above: Performed By: #### C BCA, CMP, 95117-9, PINR, 52530-2, 65851-9, 76045-1, 07430-7, THYR #### [facility] ([id number]) [address] [place] [address] 44557 Anion gap [Moles/Vol] 7 mmol/L Normal 5-15 [facility] Comment on above: Performed By: #### C BCA, CMP, 24736-9, PINR, 54644-1, 74078-4, 66614-5, 19578-0, THYR #### [facility] ([id number]) [address] [place] [address] 56788 AST [Catalytic activity/Vol] 27 U/L Normal 0-41 [facility] Comment on above: Performed By: #### C BCA, CMP, 44744-3, PINR, 87683-0, 55048-6, 16463-0, 42752-3, THYR #### [facility] ([id number]) [address] [place] [address] 52186 Bilirubin [Mass/Vol] 0.8 mg/dL Normal 0.3-1.2 [facility] Comment on above: Performed By: #### C BCA, CMP, 97803-4, PINR, 96724-6, 17838-7, 15204-3, 45884-3, THYR #### [facility] ([id number]) [address] [place] [address] 85166 Calcium [Mass/Vol] 10.1 mg/dL Normal 8.5-10.5 [facility] Comment on above: Performed By: #### C BCA, CMP, 55847-3, PINR, 57481-2, 61083-4, 38003-1, 87894-2, THYR #### [facility] ([id number]) [address] [place] [address] 73133 Chloride [Moles/Vol] 103 mmol/L Normal 98-109 [facility] Comment on above: Performed By: #### C BCA, CMP, 50568-8, PINR, 02287-3, 66570-1, 69241-6, 29403-5, THYR #### [facility] ([id number]) [address] [place] [address], [place] [address] CO2 [Moles/Vol] 24 mmol/L Normal 22-32 [facility] Comment on above: Performed By: #### C BCA, CMP, 51570-0, PINR, 74337-8, 91850-0, 11839-0, 98335-3, THYR #### [facility] ([id number]) [address] [place] [address] Creatinine [Mass/Vol] 1.18 mg/dL Normal 0.70-1.20 [facility] Comment on above: Result Comment: METH OD TRACEABLE TO IDMS STANDARD Performed By: #### C BCA, CMP, 39658-9, PINR, 98681-1, 84684-6, 82961-8, 77434-1, THYR #### [facility] ([id number]) [address] [place] [address] 15370 GFR/1.73 sq M.predicted among non-blacks MDRD (S/P/Bld) [Vol rate/Area] 78 mL/min/{1.73_m2} Normal >59 [facility] Comment on above: Result Comment: Reported eGFR is based on the CKD-EPI 2020 equation that does not use a race coefficient. Performed By: #### C BCA, CMP, 70037-0, PINR, 19318-2, 17194-2, 92115-4, 51836-9, THYR #### [facility] ([id number]) [address] [place] [address] 25042 Glucose [Mass/Vol] 86 mg/dL Normal 65-99 [facility] Comment on above: Performed By: #### C BCA, CMP, 50963-7, PINR, 26877-4, 76933-4, 42935-6, 39963-5, THYR #### [facility] ([id number]) [address] [place] [address] 86826 Potassium [Moles/Vol] 3.8 mmol/L Normal 3.5-5.0 [facility] Comment on above: Performed By: #### C BCA, CMP, 09640-6, PINR, 05282-3, 13413-1, 51959-5, 44827-8, THYR #### [facility] ([id number]) [address] [place] [address] 73387 Protein [Mass/Vol] 7.8 g/dL Normal 6.0-8.0 [facility] Comment on above: Performed By: #### C BCA, CMP, 10917-6, PINR, 16317-6, 46601-1, 07955-8, 15981-3, THYR #### [facility] ([id number]) [address] [place] [address] 15362 Sodium [Moles/Vol] 134 mmol/L Normal 134-146 [facility] Comment on above: Performed By: #### C BCA, CMP, 20334-5, PINR, 49300-8, 33797-1, 49488-4, 53421-5, THYR #### [facility] ([id number]) [address] [place] [address] 37192 Urea nitrogen [Mass/Vol] 16 mg/dL Normal 5-23 [facility] Comment on above: Performed By: #### C BCA, CMP, 49393-4, PINR, 69501-1, 88481-5, 91548-5, 22076-7, THYR #### [facility] ([id number]) [address] [place] [address] 47168 DRUG SCREEN, URINEon 024 AMPHETAMINE/METHAMP Negative Normal NEG [facility] Comment on above: Result Comment: AMPH /METH screening cut off = 1000 ng/mL Performed By: #### C BCA, CMP, 39484-1, PINR, 53449-0, 25852-6, 64508-6, 94328-9, THYR #### [facility] ([id number]) [address] [place] [address] 19563 BARBITURATES Negative Normal NEG [facility] Comment on above: Result Comment: Yen iturates screening cut off value = 200 ng/mL Performed By: #### C BCA, CMP, 80798-3, PINR, 24389-9, 08057-1, 34342-1, 83973-1, THYR #### [facility] ([id number]) [address] [place] [address] 42790 BENZODIAZEPINES Negative Normal NEG [facility] Comment on above: Result Comment: Carlos odiazepines screening cut off value = 200 ng/mL Performed By: #### C BCA, CMP, 43113-1, PINR, 15091-1, 03267-9, 48011-9, 14889-6, THYR #### [facility] ([id number]) [address] [place] [address] 07687 CANNABINOIDS Negative Normal NEG [facility] Comment on above: Result Comment: Shirlene abinoids/THC screening cut off value = 50 ng/mL Performed By: #### C BCA, CMP, 98231-1, PINR, 53555-3, 04520-0, 08140-6, 64561-7, THYR #### [facility] ([id number]) [address] [place] [address] 93411 COCAINE METABOLITE Negative Normal NEG [facility] Comment on above: Result Comment: Coca ine screening cut off value = 300 ng/mL Performed By: #### C BCA, CMP, 90137-7, PINR, 71733-9, 88009-4, 37538-6, 52736-2, THYR #### [facility] ([id number]) [address] [place] [address] 59139 ECSTASY Negative Normal NEG [facility] Comment on above: Result Comment: Ecst asy screening cut off value = 500 ng/mL This report is intended for use in clinical monitoring or management of patients. Performed By: #### C BCA, CMP, 12284-0, PINR, 96973-4, 97946-9, 47612-9, 27831-8, THYR #### [facility] ([id number]) [address] [place] [address] [place] [address] METHADONE Negative Normal NEG [facility] Comment on above: Result Comment: Meth adone screening cut off value = 300 ng/mL. Performed By: #### C BCA, CMP, 12445-1, PINR, 04452-1, 17120-2, 19264-4, 54060-8, THYR #### [facility] ([id number]) [address] [place] [address] 34359 OPIATES Negative Normal [facility] Comment on above: Result Comment: Opia yolande screening cut off value = 300 ng/mL NOTE: This test is used for the detection of codeine, hydrocodone (>1000 ng/mL), morphine and hydromorphone (>900 ng/mL) in urine. Performed By: #### C BCA, CMP, 23273-0, PINR, 87033-7, 91972-4, 37985-1, 46866-7, THYR #### [facility] ([id number]) [address] [place] [address] [place] [address] OXYCODONE Negative Normal [facility] Comment on above: Result Comment: Oxyc odone screening cut off value = 300 ng/mL NOTE: This test is used for the detection of oxycodone and oxymorphone in urine. Performed By: #### C BCA, CMP, 71742-3, PINR, 73274-9, 78133-2, 06761-9, 15922-8, THYR #### [facility] ([id number]) [address] [place] [address] [place] [address] PHENCYCLIDINE Negative Normal NEG [facility] Comment on above: Result Comment: Phen cyclidine screening cut off value = 25 ng/mL Performed By: #### C BCA, CMP, 30398-7, PINR, 44000-9, 90270-3, 39562-0, 09210-7, THYR #### [facility] ([id number]) [address] [place] [address] 44721 Fibrin D-dimer DDU (PPP) [Ma ss/Vol]on 06-01-2023 D DIMER <150 Normal <255 [facility] Comment on above: Result Comment: Results <255 ng/mL DDU: The presence of a VTE can safely be excluded with a negative D-Dimer result and Wells score. A negative result doesn't exclude the possibility of DIC. The test be repeated along with other diagnostic tests if the patient's symptoms persist or worsen. [email or web address] Performed By: #### C ERIK LONG, 91773-8, PINR, 48210-1, 89004-6, 48323-5, 58389-3, THYR #### [facility] ([id number]) [address] [place] [address] 17227 Lead (BldV) [Mass/Vol]on LEAD, VENOUS 33.8 mcg/dL High <3.5 [facility] Comment on above: Result Comment: NOTE ADDITIONAL INFORMATION Testing performed by Inductively Coupled Plasma-Mass Spectrometry (ICP-MS). This test was developed and its performance characteristics determined by [facility] in a manner consistent with CLIA requirements. This test has not been cleared or approved by the U.S. Food and Drug Administration. Performed By: #### C MERCEDES, CMP, 29322-2, PINR, 55183-5, 26006-5, 01427-4, 93346-5, THYR #### [facility] ([id number]) [address] [place] [address] 45214 MAGNESIUMon 06-01-2023 Magnesium [Mass/Vol] 2.1 mg/dL Normal 1.8-2.6 [facility] Comment on above: Performed By: #### C BCA, CMP, 09055-6, PINR, 64250-0, 64517-5, 24345-1, 44647-0, THYR #### [facility] ([id number]) [address] [place] [address], [place] [address] Natriuretic peptide B [Mass/ Vol]on 06-01-2023 BRN NATRIURETIC PEP <5 Normal <100.0 [facility] Comment on above: Performed By: #### C BCA, CMP, 26882-6, PINR, 39599-2, 21454-9, 69494-4, 63637-8, THYR #### [facility] ([id number]) [address] [place] [address], [place] [address] PROTIME AND INRon 06-01-2023 INR Coag (PPP) [Relative time] 1.1 {INR} Normal 0.8-1.1 [facility] Comment on above: Performed By: #### C BCA, CMP, 90914-4, PINR, 63674-9, 66446-9, 92340-4, 28126-8, THYR #### [facility] ([id number]) [address] [place] [address], [place] [address] PT Coag (PPP) [Time] 12.6 s Normal 9.8-13.2 [facility] Comment on above: Result Comment: NEW REFERENCE RANGE Performed By: #### C BCA, CMP, 14185-7, PINR, 16966-0, 94020-1, 77641-7, 61090-9, THYR #### [facility] ([id number]) [address] [place] [address], [place] [address] THYROID PROFILEon 06-01-2023 Free T4 [Mass/Vol] 0.88 ng/dL Normal 0.61-1.60 [facility] Comment on above: Performed By: #### C BCA, CMP, 99976-1, PINR, 93873-0, 60319-5, 33008-9, 05432-0, THYR #### [facility] ([id number]) [address] [place] [address] 60108 TSH 1.27 uIU/mL Normal 0.49-4.67 [facility] Comment on above: Performed By: #### C BCA, CMP, 37866-6, PINR, 92644-5, 07281-0, 43374-8, 71586-8, THYR #### [facility] ([id number]) [address] [place] [address] 55163 TROPONIN Ion 06-01-2023 Troponin I.cardiac [Mass/Vol] ng/mL Normal 0.00-0.04 [facility] Comment on above: Performed By: #### C BCA, CMP, 29770-2, PINR, 50405-7, 00455-5, 18536-9, 48193-7, THYR #### [facility] ([id number]) [address] [place] [address] 99844 URN MACROSCOPIC NURon 2023 BILIRUBIN FITO Negative Normal NEG [facility] Comment on above: Performed By: #### C BCA, CMP, 65589-9, PINR, 41384-3, 29399-3, 63533-0, 90581-8, THYR #### [facility] ([id number]) [address] [place] [address] 07667 BLOOD/HGB FITO Negative Normal NEG [facility] Comment on above: Performed By: #### C BCA, CMP, 63959-4, PINR, 35151-7, 57340-8, 26296-3, 70457-6, THYR #### [facility] ([id number]) [address] [place] [address] 04628 GLUCOSE FITO Negative Normal NEG [facility] Comment on above: Performed By: #### C BCA, CMP, 76698-1, PINR, 52363-4, 95941-0, 78443-3, 46037-4, THYR #### [facility] ([id number]) [address] [place] [address] 89416 KETONES FITO 40 mg/dL Abnormal NEG [facility] Comment on above: Performed By: #### C BCA, CMP, 93635-8, PINR, 52608-8, 76699-0, 76951-6, 78845-6, THYR #### [facility] ([id number]) [address] [place] [address] 72547 LEUKOCYTE ESTERASE FITO Negative Normal NEG [facility] Comment on above: Performed By: #### C BCA, CMP, 60226-5, PINR, 33459-3, 69065-7, 35881-2, 60287-1, THYR #### [facility] ([id number]) [address] [place] [address] 41295 NITRITE FITO Negative Normal NEG [facility] Comment on above: Performed By: #### C BCA, CMP, 46564-4, PINR, 36871-8, 84683-1, 57466-9, 15237-1, THYR #### [facility] ([id number]) [address] [place] [address] 39194 PH FITO 5.5 Normal 5.0-8.5 [facility] Comment on above: Performed By: #### C BCA, CMP, 67423-3, PINR, 01138-6, 24787-9, 36519-3, 26545-2, THYR #### [facility] ([id number]) [address] [place] [address] [place] [address] PROTEIN FITO Negative Normal NEG [facility] Comment on above: Performed By: #### C BCA, CMP, 86705-9, PINR, 59093-8, 19842-8, 09136-1, 30003-8, THYR #### [facility] ([id number]) [address] [place] [address] SPECIFIC GRAVITY FITO 1.025 Normal 1.003-1.035 [facility] Comment on above: Performed By: #### C BCA, CMP, 62424-0, PINR, 00941-6, 55134-0, 87533-9, 35846-7, THYR #### [facility] ([id number]) [address] [place] [address] 29545 UROBILINOGEN FITO 0.2 eu/dL Normal <1.1 [facility] Comment on above: Performed By: #### C BCA, CMP, 16633-0, PINR, 38782-5, 18937-5, 68543-0, 46768-6, THYR #### [facility] ([id number]) [address] [place] [address] 40095 XR CHEST 1 VWon 06-01-2023 XR CHEST [...] on 06/01/2023 3:32 PM Normal [facility] aPTT Coag (PPP) [Time]on aPTT Coag (Bld) [Time] 35 s Normal 26-37 [facility] Comment on above: Result Comment: NEW REFERENCE RANGE Performed By: #### C BCA, CMP, 73249-2, PINR, 07836-3, 89241-4, 58737-6, 47201-6, THYR #### [facility] ([id number]) [address] [facility] [place] [address] LEAD,ADULTon 09-05-2022 Lead, Blood (Adult) 45.4 ug/dL Invalid Interpretation Code 0.0-3.4 [facility] Comment on above: Result Comment: Test ing performed by Inductively coupled plasma/Mass Spectrometry. Verified by repeat analysis Analysis by inductively coupled plasma/mass spectrometry (ICP/MS) Environmental Exposure: WHO Recommendation <20.0 Occupational Exposure: OSHA Lead Std 40.0 CHAZ 30.0 . Detection Limit = 1.0 Performed By: #### L EADA #### [facility] [address] [place] [address] Dr. Rachel COLLINS,ADULTon 09-01-2022 Lead, Blood (Adult) CLOTWB Normal [facility] Comment on above: Result Comment: Test not performed. Whole blood specimen partially or completely clotted. A common cause is insufficient mixing upon collection. Testing performed by Inductively coupled plasma/Mass Spectrometry. contacted Nohelia at your facility on 09-01-2022 Environmental Exposure: WHO Recommendation <20.0 Occupational Exposure: OSHA Lead Std 40.0 CHAZ 30.0 . Detection Limit = 1.0 Performed By: #### I NSULIN #### [facility] [address] [place] [address] Dr. Rachel Cortez LEAD,ADULTon 08-30-2022 Lead, Blood (Adult) CLOTWB Normal [facility] Comment on above: Result Comment: Test not performed. Whole blood specimen partially or completely clotted. A common cause is insufficient mixing upon collection. Testing performed by Inductively coupled plasma/Mass Spectrometry. contacted Taya at your facility on 08-30-2022 Environmental Exposure: WHO Recommendation <20.0 Occupational Exposure: OSHA Lead Std 40.0 CHAZ 30.0 . Detection Limit = 1.0 Performed By: #### L EADA #### [facility] [address] [place] [address] Dr. Rachel Cortez BNPon 08-29-2022 Natriuretic peptide B (Bld) [Mass/Vol] 10.0 pg/mL Normal <=450.0 [facility] Comment on above: Performed By: #### C MP, TSH, BNP #### [facility] [address] [address] [address] Rachel Cortez CBC AUTO DIFFon 08-29-2022 BASO # 0.0 103/ul Normal 0.0-0.1 [facility] Comment on above: Performed By: #### C BC #### [facility] [address] [place] [address] Dr. Rachel Cortez Basophils/100 WBC (Bld) 0.5 % Normal 0.2-2.0 [facility] Comment on above: Performed By: #### C BC #### [facility] [address] [place] [address] Dr. Rachel Cortez EO # 0.2 103/ul Normal 0.0-0.7 [facility] Comment on above: Performed By: #### C BC #### [facility] [address] [place] [address] Dr. Rachel Cortez Eosinophils/100 WBC (Bld) 2.7 % Normal 0.9-7.0 [facility] Comment on above: Performed By: #### C BC #### [facility] [address] [place] [address] Dr. Rachel Cortez Erythrocyte distribution width (RBC) [Ratio] 12.3 % Normal 11.0-15.0 [facility] Comment on above: Performed By: #### C BC #### [facility] [address] [place] [address] Dr. Rachel Cortez Hematocrit (Bld) [Volume fraction] 40.9 % Critically low 42.0-54.0 [facility] Comment on above: Performed By: #### C BC #### [facility] [address] [place] [address] Dr. Rachel Cortez Hemoglobin (Bld) [Mass/Vol] 13.9 g/dL Critically low 14.0-18.0 [facility] Comment on above: Performed By: #### C BC #### [facility] [address] [place] [address] Dr. Rachel Cortez IG # 0.02 10e3/ul Normal 0.00-0.03 [facility] Comment on above: Performed By: #### C BC #### [facility] [address] [place] [address] Dr. Rachel Cortez IG % 0.3 % Normal 0.0-0.5 [facility] Comment on above: Performed By: #### C BC #### [facility] [address] [place] [address] Dr. Rachel Cortez LYMPH # 1.6 103/ul Normal 1.2-3.8 [facility] Comment on above: Performed By: #### C BC #### [facility] [address] [place] [address] Dr. Rachel Cortez Lymphocytes/100 WBC (Bld) 21.2 % Normal 20.5-60.0 [facility] Comment on above: Performed By: #### C BC #### [facility] [address] [place] [address] Dr. Rachel Cortez MANUAL DIFF REQ NO Normal [facility] Comment on above: Performed By: #### C BC #### [facility] [address] [place] [address] Dr. Rachel Cortez MCH (RBC) [Entitic mass] 30.3 pg Normal 25.9-34.0 [facility] Comment on above: Performed By: #### C BC #### [facility] [address] [place] [address] Dr. Rachel Cortez MCHC (RBC) [Mass/Vol] 34.0 g/dL Normal 29.9-35.2 [facility] Comment on above: Performed By: #### C BC #### [facility] [address] [place] [address] Dr. Rachel Cortez MCV (RBC) [Entitic vol] 89.3 fL Normal 80.0-94.0 [facility] Comment on above: Performed By: #### C BC #### [facility] [address] [place] [address] Dr. Rachel Cortez MONO # 0.6 103/ul Normal 0.3-0.8 [facility] Comment on above: Performed By: #### C BC #### [facility] [address] [address] [address] Rachel Cortez Monocytes/100 WBC (Bld) 8.6 % Normal 1.7-12.0 [facility] Comment on above: Performed By: #### C BC #### [facility] [address] [address] [address] Rachel Cortez NEUT # 5.0 103/ul Normal 1.4-6.5 [facility] Comment on above: Performed By: #### C BC #### [facility] [address] [address] [address] Rachel Cortez Neutrophils/100 WBC (Bld) 66.7 % Normal 43.0-75.0 [facility] Comment on above: Performed By: #### C BC #### [facility] [address] [place] [address] Dr. Rachel Cortez Platelet mean volume (Bld) [Entitic vol] 10.2 fL Normal 9.5-13.5 [facility] Comment on above: Performed By: #### C BC #### [facility] [address] [place] [address] Dr. Rachel Cortez PLT 198 103/ul Normal 150-450 [facility] Comment on above: Performed By: #### C BC #### [facility] [address] [place] [address] Dr. Rachel Cortez RBC 4.58 106/ul Critically low 4.70-6.10 [facility] Comment on above: Performed By: #### C BC #### [facility] [address] [place] [address] Dr. Rachel Cortez WBC 7.5 103/ul Normal 4.0-11.0 [facility] Comment on above: Performed By: #### C BC #### [facility] [address] [place] [address] Dr. Rachel Cortez FREE T4on 08-29-2022 Free T4 [Mass/Vol] 0.84 ng/dL Normal 0.76-1.46 [facility] Comment on above: Performed By: #### I KANDIS FT4 #### [facility] [address] [place] [address] Dr. Rachel Cortez IRONon 08-29-2022 Iron [Mass/Vol] 86.0 ug/dL Normal 65.0-175.0 [facility] Comment on above: Performed By: #### I KANDIS, FT4 #### [facility] [facility] [address] [place] [address] Dr. Rachel Cortez PROF 14(COMP METB)on 023 Albumin [Mass/Vol] 4.0 g/dL Normal 3.4-5.0 [facility] Comment on above: Performed By: #### C MP, TSH, BNP #### [facility] [address] [place] [address] Dr. Rachel Cortez Albumin/Globulin [Mass ratio] 1.2 {ratio} Normal [facility] Comment on above: Performed By: #### C MP, TSH, BNP #### [facility] [address] [place] [address] Dr. Rachel Cortez ALP [Catalytic activity/Vol] 103 U/L Normal 46-116 [facility] Comment on above: Performed By: #### C MP, TSH, BNP #### [facility] [address] [place] [address] Dr. Rachel Cortez ALT [Catalytic activity/Vol] 39 U/L Normal 16-63 [facility] Comment on above: Performed By: #### C MP, TSH, BNP #### [facility] [address] [place] [address] Dr. Rachel Cortez Anion gap [Moles/Vol] 10.2 mmol/L Normal [facility] Comment on above: Performed By: #### C MP, TSH, BNP #### [facility] [address] [place] [address] Dr. Rachel Cortez AST [Catalytic activity/Vol] 20 U/L Normal 15-37 [facility] Comment on above: Performed By: #### C MP, TSH, BNP #### [facility] [address] [place] [address] Dr. Rachel Cortez Bilirubin [Mass/Vol] 0.3 mg/dL Normal 0.2-1.0 [facility] Comment on above: Performed By: #### C MP, TSH, BNP #### [facility] [address] [place] [address] Dr. Rachel Cortez Calcium [Mass/Vol] 9.8 mg/dL Normal 8.5-10.1 [facility] Comment on above: Performed By: #### C MP, TSH, BNP #### [facility] [address] [place] [address] Dr. Rachel Cortez Chloride [Moles/Vol] 105 mmol/L Normal 98-107 [facility] Comment on above: Performed By: #### C MP, TSH, BNP #### [facility] [address] [place] [address] Dr. Rachel Cortez CO2 [Moles/Vol] 29.9 mmol/L Normal 21.0-32.0 [facility] Comment on above: Performed By: #### C MP, TSH, BNP #### [facility] [address] [place] [address] Dr. Rachel Cortez Creatinine [Mass/Vol] 1.19 mg/dL Normal 0.70-1.30 [facility] Comment on above: Performed By: #### C MP, TSH, BNP #### [facility] [address] [place] [address] Dr. Rachel Cortez EGFR-AF OMANI >60 Normal >=60 [facility] Comment on above: Performed By: #### C MP, TSH, BNP #### [facility] [address] [place] [address] Dr. Rachel Cortez EGFR-NON AF OMANI >60 Normal >=60 [facility] Comment on above: Performed By: #### C MP, TSH, BNP #### [facility] [address] [place] [address] Dr. Rachel Cortez Globulin (S) [Mass/Vol] 3.4 g/dL Normal [facility] Comment on above: Performed By: #### C MP, TSH, BNP #### [facility] [address] [place] [address] Dr. Rachel Cortez Glucose [Mass/Vol] 105 mg/dL Normal 74-106 [facility] Comment on above: Performed By: #### C MP, TSH, BNP #### [facility] [address] [place] [address] Dr. Rachel Cortez Potassium [Moles/Vol] 4.1 mmol/L Normal 3.5-5.1 [facility] Comment on above: Performed By: #### C MP, TSH, BNP #### [facility] [address] [place] [address] Dr. Rachel Cortez Protein [Mass/Vol] 7.4 g/dL Normal 6.4-8.2 [facility] Comment on above: Performed By: #### C MP, TSH, BNP #### [facility] [address] [place] [address] Dr. Rachel Cortez Sodium [Moles/Vol] 141 mmol/L Normal 136-145 [facility] Comment on above: Performed By: #### C MP, TSH, BNP #### [facility] [address] [place] [address] Dr. Rachel Cortez Urea nitrogen [Mass/Vol] 16.0 mg/dL Normal 7.0-18.0 [facility] Comment on above: Performed By: #### C MP, TSH, BNP #### [facility] [address] [place] [address] Dr. Rachel Cortez Urea nitrogen/Creatinine [Mass ratio] 13.4 mg/mg Normal [facility] Comment on above: Performed By: #### C MP, TSH, BNP #### [facility] [address] [place] [address] Dr. Rachel Cortez TSHon 08-29-2022 TSH 0.978 uIU/mL Normal 0.358-3.740 [facility] Comment on above: Performed By: #### I NSULIN #### [facility] [address] [place] [address] FACIAL BONES WO [...] WILFRID CAMARENA Date: 2022-08-11 18:30 Normal [facility] CT HEAD WO CONon 08-11-2022 [...] MARLYS MUNOZ Date: 2022-08-11 19:49 Normal [facility] INSULINon 05-09-2022 Insulin 9.9 uIU/mL Normal 2.6-24.9 [facility] Comment on above: Performed By: #### I NSULIN #### [facility] [address] [place] [address] Dr. Rachel Cortez CBC AUTO DIFFon 05-07-2022 BASO # 0.1 103/ul Normal 0.0-0.1 [facility] Comment on above: Performed By: #### I NSULIN #### [facility] [address] [address] [address] Rachel Cortez Basophils/100 WBC (Bld) 0.7 % Normal 0.2-2.0 [facility] Comment on above: Performed By: #### I NSULIN #### [facility] [address] [address] [address] Rachel Cortze EO # 0.0 103/ul Normal 0.0-0.7 [facility] Comment on above: Performed By: #### I NSULIN #### [facility] [address] [place] [address] Dr. Rachel Cortez Eosinophils/100 WBC (Bld) 0.1 % Critically low 0.9-7.0 [facility] Comment on above: Performed By: #### I NSULIN #### [facility] [address] [address] [address] Rachel Cortez Erythrocyte distribution width (RBC) [Ratio] 12.2 % Normal 11.0-15.0 [facility] Comment on above: Performed By: #### I NSULIN #### [facility] [address] [place] [address] Dr. Rachel Cortez Hematocrit (Bld) [Volume fraction] 41.1 % Critically low 42.0-54.0 [facility] Comment on above: Performed By: #### I NSULIN #### [facility] [address] [address] [address] Rachel Cortez Hemoglobin (Bld) [Mass/Vol] 14.1 g/dL Normal 14.0-18.0 [facility] Comment on above: Performed By: #### I NSULIN #### [facility] [address] [address] [address] Rachel Cortez IG # 0.03 10e3/ul Normal 0.00-0.03 [facility] Comment on above: Performed By: #### I NSULIN #### [facility] [address] [place] [address] Dr. Rachel Cortez IG % 0.4 % Normal 0.0-0.5 [facility] Comment on above: Performed By: #### I NSULIN #### [facility] [address] [address] [address] Rachel Cortez LYMPH # 2.3 103/ul Normal 1.2-3.8 [facility] Comment on above: Performed By: #### I NSULIN #### [facility] [address] [place] [address] Dr. Rachel Cortez Lymphocytes/100 WBC (Bld) 30.8 % Normal 20.5-60.0 [facility] Comment on above: Performed By: #### I NSULIN #### [facility] [address] [place] [address] Dr. Rachel Cortez MANUAL DIFF REQ NO Normal [facility] Comment on above: Performed By: #### I NSULIN #### [facility] [address] [place] [address] Dr. Rachel Cortez MCH (RBC) [Entitic mass] 29.9 pg Normal 25.9-34.0 [facility] Comment on above: Performed By: #### I NSULIN #### [facility] [address] [place] [address] Dr. Rachel Cortez MCHC (RBC) [Mass/Vol] 34.3 g/dL Normal 29.9-35.2 [facility] Comment on above: Performed By: #### I NSULIN #### [facility] [address] [place] [address] Dr. Rachel Cortez MCV (RBC) [Entitic vol] 87.3 fL Normal 80.0-94.0 [facility] Comment on above: Performed By: #### I NSULIN #### [facility] [address] [place] [address] Dr. Rachel Cortez MONO # 0.7 103/ul Normal 0.3-0.8 [facility] Comment on above: Performed By: #### I NSULIN #### [facility] [address] [address] [address] Rachel Cortez Monocytes/100 WBC (Bld) 8.9 % Normal 1.7-12.0 [facility] Comment on above: Performed By: #### I NSULIN #### [facility] [address] [place] [address] Dr. Rachel Cortez NEUT # 4.3 103/ul Normal 1.4-6.5 [facility] Comment on above: Performed By: #### I NSULIN #### [facility] [address] [place] [address] Dr. Rachel Cortez Neutrophils/100 WBC (Bld) 59.1 % Normal 43.0-75.0 [facility] Comment on above: Performed By: #### I NSULIN #### [facility] [address] [place] [address] Dr. Rachel Cortez Platelet mean volume (Bld) [Entitic vol] 9.9 fL Normal 9.5-13.5 [facility] Comment on above: Performed By: #### I NSULIN #### [facility] [address] [place] [address] Dr. Rachel Cortez PLT 184 103/ul Normal 150-450 [facility] Comment on above: Performed By: #### I NSULIN #### [facility] [address] [place] [address] Dr. Rachel Cortez RBC 4.71 106/ul Normal 4.70-6.10 [facility] Comment on above: Performed By: #### I NSULIN #### [facility] [address] [place] [address] Dr. Rachel Cortez WBC 7.3 103/ul Normal 4.0-11.0 [facility] Comment on above: Performed By: #### I NSULIN #### [facility] [address] [place] [address] Dr. Rachel Cortez CULTURE URINEon 05-07-2022 CULTURE URINE Culture Observations: LIGHT GROWTH OF MIXED SKIN NILES. NO POTENTIAL PATHOGENS SEEN. Normal [facility] Comment on above: Performed By: #### I NSULIN #### [facility] [address] [address] [address] Rachel Cortez FREE THYROXINE INDEX T7on FTI 2.07 Normal 1.30-4.50 [facility] Comment on above: Performed By: #### I NSULIN #### [facility] [address] [address] [address] Rachel Cortez T3U 35.0 % Normal 33.0-40.0 [facility] Comment on above: Performed By: #### I NSULIN #### [facility] [address] [address] [address] Rachel Cortez T4 [Mass/Vol] 5.90 ug/dL Normal 4.50-12.10 [facility] Comment on above: Performed By: #### I NSULIN #### [facility] [address] [address] [address] Rachel Cortez GLYCOHEMOGLOBIN A1Con 2022 ADA RECOMMENDATION SEE BELOW Normal [facility] Comment on above: Result Comment: ADA RECOMMENDED LIMIT 4.0 - 6.0 ADA THERAPEUTIC TARGET < 7.0 ACTION SUGGESTED > 7.0 Performed By: #### A 1C #### [facility] [address] [address] [address] Rahcel Cortez Glucose [Mass/Vol] 100 mg/dL Normal [facility] Comment on above: Performed By: #### A 1C #### [facility] [address] [address] [address] Rachel Cortez HbA1c (Bld) [Mass fraction] 5.1 % Normal 4.5-6.2 [facility] Comment on above: Performed By: #### A 1C #### [facility] [address] [address] [address] Rachel Cortez IRONon 05-07-2022 Iron [Mass/Vol] 104.0 ug/dL Normal 65.0-175.0 [facility] Comment on above: Performed By: #### I NSULIN #### [facility] [address] [address] [address] Rachel Cortez LIPID PROFILEon 05-07-2022 CHOL-HDL RATIO NORM SEE BELOW Normal [facility] Comment on above: Result Comment: 3.3 - 4.4 LOW RISK 4.4 - 7.1 AVERAGE RISK 7.1 - 11.0 MODERATE RISK >11.0 HIGH RISK Performed By: #### C MP, LIPID #### [facility] [address] [address] [address] Rachel Cortez Cholesterol [Mass/Vol] 147 mg/dL Normal <=200 [facility] Comment on above: Performed By: #### C MP, LIPID #### [facility] [address] [address] [address] Rachel Cortez Cholesterol in HDL [Mass/Vol] 56 mg/dL Normal 40-60 [facility] Comment on above: Performed By: #### C MP, LIPID #### [facility] [address] [address] [address] Rachel Cortez Cholesterol in LDL [Mass/Vol] 77.8 mg/dL Normal [facility] Comment on above: Performed By: #### C MP, LIPID #### [facility] [address] [address] [address] Rachel Cortez Cholesterol.total/Ch olesterol in HDL [Mass ratio] 2.6 {ratio} Normal [facility] Comment on above: Performed By: #### C MP, LIPID #### [facility] [address] [address] [address] Rachel Cortez HDL NORMAL > or = 60 mg/dl - LOW CARDIOVASCULAR RISK <40 mg/dl - HIGH CARDIOVASCULAR RISK Normal [facility] Comment on above: Performed By: #### C MP, LIPID #### [facility] [address] [address] [address] Rachel Cortez LDL CALC NORMAL SEE BELOW Normal [facility] Comment on above: Result Comment: <100 mg/dl OPTIMAL 100 - 129 mg/dl NEAR OR ABOVE OPTIMAL 130 - 159 mg/dl BORDERLINE HIGH 160 - 189 mg/dl HIGH >190 mg/dl VERY HIGH Performed By: #### C MP, LIPID #### [facility] [address] [address] [address] Rachel Cortez Triglyceride [Mass/Vol] 66 mg/dL Normal <=150 [facility] Comment on above: Performed By: #### C MP, LIPID #### [facility] [address] [place] [address] Dr. Rachel Cortez VLDL CALC 13.2 mg/dL Normal [facility] Comment on above: Performed By: #### C MP, LIPID #### [facility] [address] [place] [address] Dr. Rachel Cortez PROF 14(COMP METB)on 023 Albumin [Mass/Vol] 4.0 g/dL Normal 3.4-5.0 [facility] Comment on above: Performed By: #### C MP, LIPID #### [facility] [address] [place] [address] Dr. Rachel Cortez Albumin/Globulin [Mass ratio] 1.3 {ratio} Normal [facility] Comment on above: Performed By: #### C MP, LIPID #### [facility] [address] [place] [address] Dr. Rachel Cortez ALP [Catalytic activity/Vol] 86 U/L Normal 46-116 [facility] Comment on above: Performed By: #### C MP, LIPID #### [facility] [address] [place] [address] Dr. Rachel Cortez ALT [Catalytic activity/Vol] 35 U/L Normal 16-63 [facility] Comment on above: Performed By: #### C MP, LIPID #### [facility] [address] [place] [address] Dr. Rachel Cortez Anion gap [Moles/Vol] 9.9 mmol/L Normal [facility] Comment on above: Performed By: #### C MP, LIPID #### [facility] [address] [place] [address] Dr. Rachel Cortez AST [Catalytic activity/Vol] 22 U/L Normal 15-37 [facility] Comment on above: Performed By: #### C MP, LIPID #### [facility] [address] [place] [address] Dr. Rachel Cortez Bilirubin [Mass/Vol] 0.4 mg/dL Normal 0.2-1.0 [facility] Comment on above: Performed By: #### C MP, LIPID #### [facility] [address] [place] [address] Dr. Rachel Cortez Calcium [Mass/Vol] 10.1 mg/dL Normal 8.5-10.1 [facility] Comment on above: Performed By: #### C MP, LIPID #### [facility] [address] [place] [address] Dr. Rachel Cortez Chloride [Moles/Vol] 107 mmol/L Normal 98-107 [facility] Comment on above: Performed By: #### C MP, LIPID #### [facility] [address] [place] [address] Dr. Rachel Cortez CO2 [Moles/Vol] 30.0 mmol/L Normal 21.0-32.0 [facility] Comment on above: Performed By: #### C MP, LIPID #### [facility] [address] [place] [address] Dr. Rachel Cortez Creatinine [Mass/Vol] 1.16 mg/dL Normal 0.70-1.30 [facility] Comment on above: Performed By: #### C MP, LIPID #### [facility] [address] [place] [address] Dr. Rachel Cortez EGFR-AF OMANI >60 Normal >=60 [facility] Comment on above: Performed By: #### C MP, LIPID #### [facility] [address] [place] [address] Dr. Rachel Cortez EGFR-NON AF OMANI >60 Normal >=60 [facility] Comment on above: Performed By: #### C MP, LIPID #### [facility] [address] [place] [address] Dr. Rachel Cortez Globulin (S) [Mass/Vol] 3.0 g/dL Normal [facility] Comment on above: Performed By: #### C MP, LIPID #### [facility] [address] [place] [address] Dr. Rachel Cortez Glucose [Mass/Vol] 88 mg/dL Normal 74-106 [facility] Comment on above: Performed By: #### C MP, LIPID #### [facility] [address] [address] [address] Rachel Cortez Potassium [Moles/Vol] 3.9 mmol/L Normal 3.5-5.1 [facility] Comment on above: Performed By: #### C MP, LIPID #### [facility] [address] [address] [address] Rachel Cortez Protein [Mass/Vol] 7.0 g/dL Normal 6.4-8.2 [facility] Comment on above: Performed By: #### C MP, LIPID #### [facility] [address] [address] [address] Rachel Cortez Sodium [Moles/Vol] 143 mmol/L Normal 136-145 [facility] Comment on above: Performed By: #### C MP, LIPID #### [facility] [address] [address] [address] Rachel Cortez Urea nitrogen [Mass/Vol] 16.0 mg/dL Normal 7.0-18.0 [facility] Comment on above: Performed By: #### C MP, LIPID #### [facility] [address] [place] [address] Dr. Rachel Cortez Urea nitrogen/Creatinine [Mass ratio] 13.8 mg/mg Normal [facility] Comment on above: Performed By: #### C MP, LIPID #### [facility] [address] [place] [address] Dr. Rachel Cortez TSHon 05-07-2022 TSH 2.417 uIU/mL Normal 0.358-3.740 [facility] Comment on above: Performed By: #### I NSULIN #### [facility] [address] [place] [address] Dr. Rachel Cortez UA RANDOM W/MICROSCOPICon BACTERIA NONE SEEN Normal NONE SEEN [facility] Comment on above: Performed By: #### I NSULIN #### [facility] [address] [place] [address] Dr. Rachel Cortez Bilirubin Ql (U) Negative Normal NEGATIVE [facility] Comment on above: Performed By: #### I NSULIN #### [facility] [address] [address] [address] Rachel Cortez CAST NONE SEEN Normal NONE SEEN [facility] Comment on above: Performed By: #### I NSULIN #### [facility] [address] [place] [address] Dr. Rachel Cortez Clarity (U) CLEAR Normal CLEAR [facility] Comment on above: Performed By: #### I NSULIN #### [facility] [address] [place] [address] Dr. Rachel Cortez Color (U) YELLOW Normal YELLOW [facility] Comment on above: Performed By: #### I NSULIN #### [facility] [address] [place] [address] Dr. Rachel Cortez Crystals LM Nom (Urine sed) NONE SEEN Normal NONE SEEN [facility] Comment on above: Performed By: #### I NSULIN #### [facility] [address] [place] [address] Dr. Rachel Cortez Epithelial cells LM Ql (Urine sed) NONE SEEN Normal NONE SEEN /RARE [facility] Comment on above: Performed By: #### I NSULIN #### [facility] [address] [place] [address] Dr. Rachel Cortez Glucose Ql (U) Negative Normal NEGATIVE [facility] Comment on above: Performed By: #### I NSULIN #### [facility] [address] [place] [address] Dr. Rachel Cortez Hemoglobin Ql (U) Negative Normal NEGATIVE [facility] Comment on above: Performed By: #### I NSULIN #### [facility] [address] [place] [address] Dr. Rachel Cortez Ketones Ql (U) Negative Normal NEGATIVE [facility] Comment on above: Performed By: #### I NSULIN #### [facility] [address] [place] [address] Dr. Rachel Cortez LEUKOCYTES Negative Normal NEGATIVE [facility] Comment on above: Performed By: #### I NSULIN #### [facility] [address] [address] [address] Rachel Cortez MUCOUS MODERATE Abnormal NONE SEEN [facility] Comment on above: Performed By: #### I NSULIN #### [facility] [address] [address] [address] Rachel Cortez Nitrite Ql (U) Negative Normal NEGATIVE [facility] Comment on above: Performed By: #### I NSULIN #### [facility] [address] [place] [address] Dr. Rachel Cortez pH (U) 6.0 [pH] Normal 5-9 [facility] Comment on above: Performed By: #### I NSULIN #### [facility] [address] [place] [address] Dr. Rachel Cortez RBC NONE SEEN Abnormal 0-2 [facility] Comment on above: Performed By: #### I NSULIN #### [facility] [address] [place] [address] Dr. Rachel Cortez SPEC GRAVITY 1.030 Abnormal 1.005-<=1.025 [facility] Comment on above: Performed By: #### I NSULIN #### [facility] [address] [place] [address] Dr. Rachel Cortez UA PROTEIN Negative Normal NEGATIVE/ TRACE [facility] Comment on above: Performed By: #### I NSULIN #### [facility] [address] [place] [address] Dr. Rachel Cortez Urobilinogen Qn (U) 1.0 {Colby'U}/dL Normal 0.2 - 1. 0 [facility] Comment on above: Performed By: #### I NSULIN #### [facility] [address] [place] [address] Dr. Rachel Cortez WBC NONE SEEN Normal NONE SEEN [facility] Comment on above: Performed By: #### I NSULIN #### [facility] [address] [place] [address] Dr. Rachel Cortez XR LSPINE MIN 4 [...] by: MARINA MAIN Date: 2022-05-06 16:40 Normal [facility] Vital Signs Date Time Vital Sign Value Performing Clinician Caryni phan 08-02-2023 15:48-0400 Body height 177.8 cm Ji Fajardo MD Work Phone: [facility] 08-02-2023 15:48-0400 Body weight 72.45 kg Ji Fajardo MD Work Phone: [facility] 08-02-2023 15:48-0400 Diastolic blood pressure 74 mm[Hg] Ji Fajardo MD Work Phone: [facility] 08-02-2023 15:48-0400 Heart rate 74 /min Ji Fajardo MD Work Phone: [facility] 08-02-2023 15:48-0400 Respiratory rate 18 /min Ji Fajardo MD Work Phone: [facility] 08-02-2023 15:48-0400 SaO2% (BldA) [Mass fraction] 98 % Ji Fajardo MD Work Phone: [facility] 08-02-2023 15:48-0400 Systolic blood pressure 115 mm[Hg] Ji Fajardo MD Work Phone: [facility] Encounters Encounter Date Encounter Type Care Provider Facility Start: 01-02-2024 ambulatory Facility: Arslan Barker Start: 12-18-2023 End: 12-19-2023 ambulatory [facility] Start: 08-10-2023 End: 08-10-2023 ambulatory JI FAJARDO Facility:[facility] Start: 08-10-2023 End: 08-10-2023 ambulatory Jean Valencia PT Work Phone: Physical Therapy Comment on above: Dizziness Start: 08-08-2023 End: 08-08-2023 ambulatory LUIS ALBERTO DOWLING [facility] Start: 08-04-2023 Telephone encounter Ji Magdaleno Neurology [facility] Comment on above: Workers comp Start: 08-03-2023 End: 08-03-2023 ambulatory [facility] Facility:[facility] Start: 08-03-2023 End: 08-03-2023 Subsequent hospital visit by physician [facility] Mary (1.5t) Work Phone: Radiology Comment on above: Worsening headaches [R51.9] Start: 08-02-2023 End: 08-02-2023 ambulatory [facility] Facility:[facility] Start: 08-02-2023 End: 08-02-2023 Office outpatient new 45 minutes Ji Fajardo MD Work Phone: Neurology Headache [facility] Comment on above: Worsening headaches (Primary Dx); Dizziness; Toxic effect of lead, accidental or unintentional, initial encounter Start: 08-02-2023 Telephone encounter Ji Magdaleno [facility] Start: 08-01-2023 ambulatory Digna Chavez RN [facility] Start: 08-01-2023 Patient encounter procedure Digna Chavez RN NURSE HEALTH ADVISOR Comment on above: Referral Request Start: 06-21-2023 End: 06-21-2023 ambulatory OLLIE NAVASWYPaula [facility] Start: 06-20-2023 End: 06-20-2023 ambulatory INDU VOGT [facility] Start: 06-02-2023 End: 06-03-2023 ambulatory JOHN MEEKS [facility] Start: 06-01-2023 End: 06-03-2023 Emergency department patient visit MAINE FERGUSON [facility] Start: 06-01-2023 End: 06-02-2023 ambulatory IRENA JEFFERY [facility] Start: 09-01-2022 End: 09-02-[address] IRENA JEFFERY . Facility:[facility] Start: 08-30-2022 End: 08-31-[address] IRENA JEFFERY . Facility:[facility] Start: 08-29-2022 End: 08-30-[address] IRENA JEFFERY . Facility:[facility] Start: 08-11-2022 End: 08-11-2022 ambulatory BEV MILLS . Facility:[facility] Start: 05-07-2022 End: 05-08-[address] IRENA JEFFERY . Facility:[facility] Start: 05-06-2022 End: 05-07-[address] IRENA JEFFERY . Facility:[facility] Procedures Date Procedure Procedure Detail Performing Clinician Start: 08-03-2023 Mri brain brain stem w/o w/contrast material Ji Fajardo MD Work Phone: Start: 05-07-[address] BERTA JEFFERY . Comment on above: Performed By: #### L EADA #### [facility] [address] [place] [address] Dr. Rachel Cortez Plan of Treatment Date Care Activity Detail Author Start: 06-02-2026 Diabetes Screening Diabetes Screenin [facility] Start: 12-24-2023 Covid-19 Vaccine ( season) Covid-19 Vaccine () [facility] Start: 12-24-2023 Influenza vaccination C [facility] Start: 11-08-2023 End: 11-08-2023 Patient encounter procedure 11/08/2023 11:00 AM EDT Office Visit Neurology [address] [place] [address] Gina Dooley, NURSERY LABORER.SENIOR INTEGRATION DEVELOPER [address] [place], [place] [id number] Neurology Start: 07-29-2023 Diabetes Screening Diabetes Screenin g [facility] Start: 07-29-2023 Screening for malign ant neoplasm of colon [facility] Start: 04-24-2023 Behavioral Health Screening Behavioral Health Screening [facility] Start: 12-23-2022 Covid-19 Vaccine ( season) Covid-19 Vaccine ( season) [facility] Start: 2013 Lipid panel Lipid Screening [facility] Start: 1997 Hepatitis B Vaccine (1 of 3 - 19+ 3-dose series) Hepatitis B Vaccine (1 of 3 - 19+ 3-dose series) [facility] Start: 1997 Urine microalbumin profile DTa P,Tdap,Td Vaccine (1 - Tdap) [facility] Start: 1996 Anxiety Screening Anxiety Screening [facility] Start: 1996 Depression Screening Depression Scre ening [facility] Start: 1996 Hepatitis C screening Hepatitis C Sc reening [facility] Start: 1996 HIV screening HIV Screening [facility] Payers Date Payer Category Payer Unknown [id number] 2022 Unknown [id number] 2022 Unknown [id number] 2020 Self-pay 1978 Unknown [id number] 2.16.84 [id number] 1978 Unknown [id number] 2.16.84 [id number] 1978 Unknown [id number] 2.16.84 [id number] 1978 Unknown [id number] 2.16.84 [id number] 1978 Unknown [id number] 2.16.84 [id number] 1978 Unknown [id number] 2.16.84 [id number] 1978 Unknown [id number] 2.16.8 [id number] 1978 Unknown [id number] 2.16.8 [id number] 1978 Unknown [id number] 2.16.8 [id number] 1978 Unknown [id number] 2.16.8 [id number] 1959 Unknown [id number] Social History Date Type Detail Facility Tobacco smoking stat [facility] Tobacco smoking consumption unknown [facility] Start: 1980 Sex Assigned At Not on file [facility] Start: 08-02-2023 [facility] Start: 08-02-2023 Tobacco smoking stat [facility] Never smoked tobacco [facility] Start: 08-02-2023 Tobacco use and exposure Smokeless t obacco non-user [facility] Start: 08-02-2023 History of Social function [facility] National Score (1-10 0), lower number is lower risk 73 [facility] Clinical Notes 06-20-2023 to 08-10-2023 Jean Valencia PT - 08/10/2023 10:06 AM Jean Crump PT - 08/10/2023 9:30 AM EDTTZander Lozada MA - 08/04/2023 9:[address] - 08/03/2023 2:40 PM EDT Note Date & Type Note Facility 08-10-2023 Note HNO ID: [id number] Author: JEAN VALENCIA PT Service: ? Author [...] Planned: (4) Planned Treatment Interventions: Neuromuscular re-education (72912), Manual therapy (29973), Therapeutic activities (11491), Self-residential management (93933), Therapeutic exercise (27653), Patient/Family/Caregiver Education PLAN FOR NEXT VISIT: Patient [...] WITH LEVEL OF FUNCTION: Positional Testing Left Nathrop-Hallpike: Asymptomatic Right Nylen Barany: Asymptomatic Supine Head [...] and vertical head (more content not included)... [facility] 08-10-2023 History of Present illness Narrative Program_ID:[id number] Access Code: [email or web address] URL: [email or web address] Date: 08-10-2023 Prepared By: Jean Valencia Program [...] Planned: (4) Planned Treatment Interventions: Neuromuscular re-education (13459), Manual therapy (84531), Therapeutic activities (92203), Self-residential management (92483), Therapeutic exercise (59007), Patient/Family/Caregiver Education PLAN FOR NEXT VISIT: Patient [...] dizziness, light headed Rating of current symptoms: 10/01 Frequency: Constant Duration: seconds Symptoms worsened by: (standing up) Symptoms improved by: being still, moving slow Imbalance: Yes Imbalance triggered by: (standing up) Fall Assessment: No falls Nausea: no Motion Sickness: None Headache: Yes Description: aching (posterior head and temples) Rating of current symptoms: 10/01 Location: temporal region, occipital region Frequency: Intermittent [...] States/Identifies, Return Demonstration TREATMENT: PT Treatment Interventions: Self-Jail Management, Manual Therapy, Neuromuscular Re-Education Evaluation Therapeutic [...] Jean Valencia PT documented in this encounter [facility] 08-08-2023 Note [place] Electrophysiology Consult Note Reason for visit: afib, chest pain , palpitations HPI: Rey Baxter is a 43 y.o. year old with past medical history of Lumbar radiculopathy, GERD, HERIBERTO, fatigue, paroxysmal A-fib,, lead toxicity. Patient was referred to our clinic for A-fib he was seen recently at [facility] and was found to be in A-fib [...] his lead toxicity Patient was referred to [facility] but it seems as though no one [...] no gallop Systo (more content not included)... [facility] 08-04-2023 Miscellaneous Notes Patient records received via electronic fax. Uploaded to [employer] via [employer]. Please review in scanned documents tab of chart review. Zander Denson MA documented in this encounter [facility] 08-03-2023 Note HNO ID: [id number] Author: MATTHEW BANERJEE CT Service: ? Author Type: Technologist Type: [...] PATIENT PRESENTS WITH AN IMPLANTABLE OR ATTACHED LOAN REVIEW OFFICER: No ALLERGIES: Reviewed and unchanged CONTRAST ALLERGY: NO. EXAM: MRI - CONTRAST TYPE: GROUP II PERIPHERAL IV DATA: Ambulatory: A peripheral IV was started in the Left antecubital site with a Angio cath: 24 gauge. RADIOLOGY DEPARTMENT: MR; Exam(s) Completed: Head: Routine Brain SIGNATURE: TATI Tolbert PATIENT NAME: Rey Baxter DATE: August 03, 2023 TIME: 3:06 PM [facility] 08-03-2023 History of Present illness Narrative Radiology Service Progress Note DATE OF SERVICE: [...] PATIENT PRESENTS WITH AN IMPLANTABLE OR ATTACHED LOAN REVIEW OFFICER: No ALLERGIES: Reviewed and unchanged CONTRAST ALLERGY: NO. EXAM: MRI - CONTRAST TYPE: GROUP II PERIPHERAL IV DATA: Ambulatory: A peripheral IV was started in the Left antecubital site with a Angio cath: 24 gauge. RADIOLOGY DEPARTMENT: MR; Exam(s) Completed: Head: Routine Brain SIGNATURE: TATI Tolbert PATIENT NAME: Rey Baxter DATE: August 03, 2023 TIME: 3:06 PM documented in this encounter [facility] 08-02-2023 Note HNO ID: [id number] Author: JI FAJARDO MD Service: ? 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 Lead is not being chelated at [...] access for admini (more content not included)... 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 Lead is not being chelated at [...] worsening headaches. Pt needs MRI-Brain to r/o CONTRACT COORDINATOR changes from heavy metal toxicity. Pt can trial nortriptyline 10 mg po qhs in the interim for symptomatic relief. Return 3 months or sooner if needed. Ji Fajardo MD August 04, 2023 2:09 PM documented in this encounter [facility] 08-01-2023 Miscellaneous Notes Patient calling with request for physician referral: Patient referred to Neurology Department. . Patient denies any new or worsening symptoms of which a provider is not aware: Yes. Ac took call back over for scheduling. documented in this encounter [facility] 06-21-2023 Note [place] Electrophysiology Consult Note Reason for visit: afib, chest pain , palpitations, new pt HPI: Rey Baxter is a 42 y.o. year old with past medical history of Lumbar radiculopathy, GERD, HERIBERTO, fatigue, paroxysmal A-fib,, lead toxicity. Patient was referred to our clinic for A-fib he was seen recently at [facility] and was found to be in A-fib [...] lead toxicity Patient was referred to [facility] [place] but it seems as though no one [...] no rhonchi C (more content not included)... [facility] 06-21-2023 Note TC to OR ASSISTANT internal re ferral for: T56.0X1S (ICD-10-CM) - Toxic effect of lead, accidental or unintentional, sequela PT states he will call back to schedule. Clinic number provided. shamir [facility] 06-20-2023 Note This board writer was cons ulted by Dr. Vogt to assist patient with workers comp claim and resources for lead poisoning. This board writer met with patient following his visit with Dr. Vogt and provided him the [place] [employer] Workers' Compensation contact. This board writer informed patient resources on lead poisoning will be researched as this board writer does not currently have information. The patient stated Dr. Vogt provided him with poison control's contact and he plans to call them. This board writer will research additional resources. [facility] 06-20-2023 Note HEMATOLOGY ONCOLOGY CONSULT NOTE Reason for consult: Chief Complaint: History of present illness: The patient is a 42 y.o. male with PMHx of that presented with lead poisoning. Company makes plaques . Patient melts of the same and 06/01/2023 Lead,Blood,Venipuncture Order: [id number] Component Ref Range & Units 2 wk ago Lead <3.5 mcg/dL 33.8 High Comment: NOTE Patient had lead testing at [place] and was 43 Upon evaluation, No results found for: WBC , HGB , HCT , MCV , PLT Order: [id number] Component Ref Range & Units 2 wk [...] - 0.2 X10E9/L 0.1 Resulting Agency [facility] Specimen Collected: 06/01/23 15:10 Performed by: [employer] Last Resulted: 06/01/23 15:22 Received From: [employer] Result Received: 06/20/23 13:09 View Encounter Received Information Result Report CBC auto differential (Order #[id number]) on 06/01/23 Lab Component SmartPhrase Guide CBC auto differential (Order #[id number]) on 06/01/23 Additional PMHx includes afib passed out work and was admitted in [place] and has been on eliquis since jun 02 by cardiology Hematologic / Oncologic hx: - Family hx of malignancy/blood disorder: none - Primary Data Warehouse Specialist/Oncologist:none - Established diagnoses: Lead poisoning will be [...] Screening for col (more content not included)... [facility] Evaluation note Diagnosis Worsening headaches- Primary Headache Dizziness Dizziness and giddiness Toxic effect of lead, accidental or unintentional, initial encounter [facility] Diagnosis Dizziness Dizziness and giddiness [facility] Worsening headaches Headache documented in this encounter [facility] Summary Purpose Family History No Family [...] headaches Procedures PROVIDER ORDERED FOLLOW UP OFFICE/OUTPATIENT [facility]3] 60 [place] [address] [place] [address] Referral ID Status Reason Start Date Expiration Date Visits Requested Visits Authorized [id number] Pending Review PCP Requested Referral 11/01/2023 08/01/2024 1 1 Specialty Diagnoses / Procedures Referred By Contac t Referred To Contact [facility] Diagnoses Dizziness Procedures CONSULT TO PHYSICAL THERAPY PHYSICAL THERAPY EVALUATION [facility] [address] [place] [address] [place] [address] [facility] [place] [id number] Referral ID Status Reason Start Date Expiration Date Visits Requested Visits Authorized [id number] Pending Review Auto-Generat ed Referral 08/02/2023 08/01/2024 1 1 Specialty Diagnoses / Procedures Referred By Aide lopez Referred To Contact MR IMAGING Diagnoses Worsening headaches Procedures MRI BRAIN WO/W IVCON MRI BRAIN BRAIN STEM W/O W/[place] [address] [place] [address] Mr Imaging [id number] Referral ID Status Reason Start Date Expiration Date V isits Requested Visits Authorized [id number] Closed Auto-Generate d Referral 08/02/2023 08/31/2024 1 1 Additional Source Comments (unrecognized sect ion and content) No Status Records FoundNo Status Records FoundNo Status Records FoundNo Status Records FoundNo Status Records Found INFORMATION SOURCE (unrecogn ized section and content) DATE CREATED AUTHOR 09/05/2022 [facility] DATE CREATED AUTHOR AUTHOR'S ORGANIZ ATION 06/05/2023 [facility] DATE CREATED AUTHOR AUTHOR'S ORGANIZ ATION 08/14/2023 [facility] DATE CREATED AUTHOR AUTHOR'S ORGANIZ ATION 12/20/2023 [facility] DATE CREATED AUTHOR AUTHOR'S ORGANIZ ATION 01/04/2024 [facility] Source Comments (unrecognize d section and content) In the event this informatio n is protected by the Federal Confidentiality of Alcohol and Drug Abuse Patient Records regulations: The Federal rules restrict any use of the information to criminally investigate or prosecute any alcohol or drug abuse patient.[facility] the event this information is protected by the Federal Confidentiality of Alcohol and Drug Abuse Patient Records regulations: The Federal rules restrict any use of the information to criminally investigate or prosecute any alcohol or drug abuse patient.[facility] the event this information is protected by the Federal Confidentiality of Alcohol and Drug Abuse Patient Records regulations: The Federal rules restrict any use of the information to criminally investigate or prosecute any alcohol or drug abuse patient.[facility] the event this information is protected by the Federal Confidentiality of Alcohol and Drug Abuse Patient Records regulations: The Federal rules restrict any use of the information to criminally investigate or prosecute any alcohol or drug abuse patient.[facility] the event this information is protected by the Federal Confidentiality of Alcohol and Drug Abuse Patient Records regulations: The Federal rules restrict any use of the information to criminally investigate or prosecute any alcohol or drug abuse patient.[facility] the event this information is protected by the Federal Confidentiality of Alcohol and Drug Abuse Patient Records regulations: The Federal rules restrict any use of the information to criminally investigate or prosecute any alcohol or drug abuse patient.[facility] Reason for Visit (unrecogniz ed section and content) Reason Comments Referral Request Reason Comments Workers comp Reason Comments New Patient Headaches Specialty Diagnoses / Procedures Referred By Contac t Referred To Contact Neurology / HEADACHE Diagnoses Intake Simon / RM 164 GARCIA, Numbness/tingling, Dizziness, Confusion. Procedures NEW NEUR HEADACHE Ashley Foster, SENIOR INTEGRATION DEVELOPER [address] [place] [address] Ji Fajardo MD [address] [place], [place] [id number] Referral ID Status Reason Start Date Expiration Date V isits Requested Visits Authorized [id number] Authorized 07/10/2023 01/10/2024 2 2 Reason Comments PT Eval Specialty Diagnoses / Procedures Referred By Contac t Referred To Contact [facility] Diagnoses Dizziness Procedures CONSULT TO PHYSICAL THERAPY PHYSICAL THERAPY EVALUATION [facility] 45 MINS Ji Fajardo MD [address] [place] [address] [facility] [place] [address] Referral ID Status Reason Start Date Expiration Date Visits Requested Visits Authorized [id number] Pending Review Auto-Generat ed Referral 08/02/2023 08/01/2024 1 1 Reason Comments Radiology MRI Specialty Diagnoses / Procedures Referred By Contac t Referred To Contact MR IMAGING Diagnoses Worsening headaches Procedures MRI BRAIN WO/W IVCON MRI BRAIN BRAIN STEM W/O W/CONTRAST MATERIAL Ji Fajardo MD [address] [place] [address] Mr Imaging [place] [address] Referral ID Status Reason Start Date Expiration Date V isits Requested Visits Authorized [id number] Closed Auto-Generate d Referral 08/02/2023 08/31/2024 1 1 Care Teams (unrecognized sec tion and content) Field Contact Technician Relationship Specialty Start Date End Date Ollie Pitt [address] [place] [facility] [address] 06/26/23 Ashley Foster CNP [address] [place] [address] Referring Family Medicine 07/26/23 Field Contact Technician Relationship Specialty Start Date End Date Ollie Pitt [address] [place] [facility] [place] [address] 06/26/23 Ashley Foster CNP [address] [place] [address] Referring Family Medicine 07/26/23 Field Contact Technician Relationship Specialty Start Date End Date Ollie Pitt [address] [place] [facility] [place] [address] 06/26/23 Ashley Foster CNP [address] [place] [address] Referring Family Medicine 07/26/23 Field Contact Technician Relationship Specialty Start Date End Date Ollie Pitt [address] [place] [facility] [address] 06/26/23 Ashley Foster CNP [address] [place] [address] Referring Family Medicine 07/26/23 Field Contact Technician Relationship Specialty Start Date End Date Ollie Pitt [address] [place] [facility] [place] [address] 06/26/23 Ashley Foster CNP [address] [place] [address] Referring Family Medicine 07/26/23 Field Contact Technician Relationship Specialty Start Date End Date Ollie Pitt, MARY [address] [place] [facility] [place] [address] 06/26/23 Ashley Foster CNP [address] [place] [address] Referring Family Medicine 07/26/23 FOR RECORDS PERTAINING [...] BE BASED ON THE PRIMARY CLINICAL RECORDS. [facility] [employer] [facility]. provides no warranty or guarantee of the accuracy or completeness of information in this document.
== END 2024-01-06 10:59 | disposition home or self-care (01) ==
LOC: CT 10:58
PROVIDERS: PCP Family Medicine; Visit Provider Family Medicine
DX: R07.9 Chest pain, unspecified (principal); R10.11 Right upper quadrant pain
CPT/HCPCS: 71260; Q9967

== ENCOUNTER 2024-01-11 11:47 | Outpatient (OUT) | payer SELFPAY ==
--- NOTE | 2024-01-11 11:52 | US_ITS ---
The [address] [address] Patient Name: YAMILET WHITAKER MRN: [id number] date: 1980 Sex: M Assigned Patient Location: RAD Current Patient Location: [facility] Accession/Order Number: [id number] Exam Date: 01/11/2024 11:55 Report Date: 01/11/2024 12:57 At the request of: IRENA JEFFERY Procedure: US appendix EXAM: US appendix HISTORY: right flank pain R10.9; right upper quadrant pain COMPARISON: None. TECHNIQUE: Grayscale and color ultrasound FINDINGS: Indeterminate exam. Right lower quadrant ultrasound demonstrates normal skin, subcutaneous fat, muscle and intraperitoneal contents. No free fluid. The appendix is not seen US/US appendix IMPRESSION: The appendix is not visualized Electronically authenticated by: GEOFF ARCE Date: 01/11/2024 12:57
--- NOTE | 2024-01-11 12:00 | XR_ITS ---
The [address] [address] Patient Name: YAMILET WHITAKER MRN: [id number] date: 1980 Sex: M Assigned Patient Location: [facility] Current Patient Location: CT Accession/Order Number: [id number] Exam Date: 01/11/2024 11:55 Report Date: 01/15/2024 07:50 At the request of: IRENA JEFFERY Procedure: XR acute abdomen series EXAMINATION: XR acute abdomen series HISTORY: right flank pain R10.9 COMPARISON: 01/06/2024 CT chest FINDINGS: LUNGS: 2 focal subcentimeter nodules right upper lobe projected between the right posterior fifth and sixth ribs, size and density suggests granulomas. MEDIASTINUM: No abnormal widening. BOWEL GAS PATTERN: Non-obstructed. Moderate stool FREE AIR: None. CALCIFICATIONS: None significant. BONES: No fracture or visible bone lesion. OTHER: Negative. XR/XR acute abdomen series IMPRESSION: Clear lungs Moderate amount of stool Electronically authenticated by: GEOFF ARCE Date: 01/15/2024 07:50
== END 2024-01-11 11:48 | disposition home or self-care (01) ==
LOC: RAD 11:48
PROVIDERS: PCP Family Medicine; Visit Provider Family Medicine
DX: R10.9 Unspecified abdominal pain (principal); R10.11 Right upper quadrant pain
CPT/HCPCS: 74022; 76705

== ENCOUNTER 2024-01-24 15:26 | Outpatient (OUT) | payer SELFPAY ==
[2024-01-26 15:08] LABS: Lead, Blood (Adult) 11.5 ug/dL (0.0-3.4)
== END 2024-01-24 15:27 | disposition home or self-care (01) ==
LOC: LAB 15:29
PROVIDERS: PCP Family Medicine; Visit Provider Nurse Practitioner Family
DX: Z77.011 Contact with and (suspected) exposure to lead (principal)
CPT/HCPCS: 36415; 83655

== ENCOUNTER 2024-02-27 09:10 | Outpatient (OUT) | payer SELFPAY ==
[2024-02-27 09:22] LABS: Hemoglobin 13.9 g/dL (14.0-18.0)
--- OUTSIDE RECORDS SUMMARY | 2024-02-27 09:34 | XMS_ITS | CCD ---
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 Normal [facility] Comment on above: Performed By: #### C BCA, CMP, 95287-3, PINR, 15252-4, 53425-4, 49665-7, 35562-2, THYR #### [facility] ([id number]) [address] [place] [address] 42631 Neutrophils/100 WBC (Bld) 55.7 % Normal [facility] Comment on above: Performed By: #### C BCA, CMP, 98754-5, PINR, 46617-1, 98470-6, 77652-3, 65801-0, THYR #### [facility] ([id number]) [address] [place] [address] 38002 Platelet mean volume (Bld) [Entitic vol] 8.5 fL Normal 7-12 [facility] Comment on above: Performed By: #### C BCA, CMP, 29450-3, PINR, 69199-8, 18307-1, 56909-1, 61150-1, THYR #### [facility] ([id number]) [address] [place] [address] 89946 Platelets (Bld) [#/Vol] 192 10*3/uL Normal 150-450 [facility] Comment on above: Performed By: #### C BCA, CMP, 51172-5, PINR, 02448-7, 68547-7, 14069-8, 24835-6, THYR #### [facility] ([id number]) [address] [place] [address] 11278 RBC COUNT 4.61 X10E12/L Normal 4.10-5.70 [facility] Comment on above: Performed By: #### C BCA, CMP, 26653-6, PINR, 17130-8, 36849-6, 61365-3, 71891-6, THYR #### [facility] ([id number]) [address] [place] [address] 12434 WBC (Bld) [#/Vol] 7.0 10*3/uL Normal 4.0-11.0 [facility] Comment on above: Performed By: #### C BCA, CMP, 95814-2, PINR, 54438-4, 61681-7, 14648-8, 99767-3, THYR #### [facility] ([id number]) [address] [place] [address] 39091 COMPREHENSIVE METABOLIC PANE Nik 06-02-2023 Albumin [Mass/Vol] 4.2 g/dL Normal 3.2-5.3 [facility] Comment on above: Performed By: #### C BCA, CMP, 99004-9, PINR, 52653-8, 37841-8, 87904-5, 31505-7, THYR #### [facility] ([id number]) [address] [place] [address] 55725 ALP [Catalytic activity/Vol] 84 U/L Normal 39-130 [facility] Comment on above: Performed By: #### C BCA, CMP, 66461-2, PINR, 25489-3, 76563-0, 34041-3, 41218-4, THYR #### [facility] ([id number]) [address] [place] [address] 94432 ALT [Catalytic activity/Vol] 27 U/L Normal 0-40 [facility] Comment on above: Performed By: #### C BCA, CMP, 52246-6, PINR, 49533-6, 68750-8, 86493-8, 05899-1, THYR #### [facility] ([id number]) [address] [place] [address] 59908 Anion gap [Moles/Vol] 8 mmol/L Normal 5-15 [facility] Comment on above: Performed By: #### C BCA, CMP, 96332-3, PINR, 37990-8, 87991-6, 91564-9, 78415-3, THYR #### [facility] ([id number]) [address] [place] [address] 53310 AST [Catalytic activity/Vol] 22 U/L Normal 0-41 [facility] Comment on above: Performed By: #### C BCA, CMP, 65226-4, PINR, 71659-8, 14437-8, 43544-4, 16821-6, THYR #### [facility] ([id number]) [address] [place] [address] [place] [address] Bilirubin [Mass/Vol] 0.8 mg/dL Normal 0.3-1.2 [facility] Comment on above: Performed By: #### C BCA, CMP, 71445-3, PINR, 22606-4, 36724-8, 58037-6, 10660-2, THYR #### [facility] ([id number]) [address] [place] [address] 35906 Calcium [Mass/Vol] 10.0 mg/dL Normal 8.5-10.5 [facility] Comment on above: Performed By: #### C BCA, CMP, 24590-9, PINR, 42653-8, 77520-1, 40659-7, 22718-0, THYR #### [facility] ([id number]) [address] [place] [address] 36547 Chloride [Moles/Vol] 102 mmol/L Normal 98-109 [facility] Comment on above: Performed By: #### C BCA, CMP, 37973-7, PINR, 74033-9, 58844-6, 64128-4, 04213-8, THYR #### [facility] ([id number]) [address] [place] [address] 32331 CO2 [Moles/Vol] 26 mmol/L Normal 22-32 [facility] Comment on above: Performed By: #### C BCA, CMP, 77378-3, PINR, 43730-4, 12742-8, 36175-0, 72182-5, THYR #### [facility] ([id number]) [address] [place] [address] 58121 Creatinine [Mass/Vol] 1.07 mg/dL Normal 0.70-1.20 [facility] Comment on above: Result Comment: METH OD TRACEABLE TO IDMS STANDARD Performed By: #### C BCA, CMP, 95101-6, PINR, 29899-9, 13286-0, 15990-7, 31209-4, THYR #### [facility] ([id number]) [address] [place] [address] 29922 GFR/1.73 sq M.predicted among non-blacks MDRD (S/P/Bld) [Vol rate/Area] 88 mL/min/{1.73_m2} Normal >59 [facility] Comment on above: Result Comment: Reported eGFR is based on the CKD-EPI 2020 equation that does not use a race coefficient. Performed By: #### C BCA, CMP, 40770-7, PINR, 07730-3, 68952-2, 92109-1, 62984-1, THYR #### [facility] ([id number]) [address] [place] [address] 29338 Glucose [Mass/Vol] 94 mg/dL Normal 65-99 [facility] Comment on above: Performed By: #### C BCA, CMP, 61177-6, PINR, 64679-6, 25210-0, 60988-8, 74039-3, THYR #### [facility] ([id number]) [address] [place] [address] 20132 Potassium [Moles/Vol] 4.0 mmol/L Normal 3.5-5.0 [facility] Comment on above: Performed By: #### C BCA, CMP, 53605-7, PINR, 47217-8, 04590-9, 17618-0, 55075-4, THYR #### [facility] ([id number]) [address] [place] [address] 53713 Protein [Mass/Vol] 7.0 g/dL Normal 6.0-8.0 [facility] Comment on above: Performed By: #### C BCA, CMP, 99193-1, PINR, 79951-3, 07828-3, 74268-1, 25343-2, THYR #### [facility] ([id number]) [address] [place] [address] 57924 Sodium [Moles/Vol] 136 mmol/L Normal 134-146 [facility] Comment on above: Performed By: #### C BCA, CMP, 53527-4, PINR, 06996-2, 74318-7, 65323-4, 89851-2, THYR #### [facility] ([id number]) [address] [place] [address] 21791 Urea nitrogen [Mass/Vol] 20 mg/dL Normal 5-23 [facility] Comment on above: Performed By: #### C BCA, CMP, 97837-5, PINR, 62637-9, 99660-7, 25302-5, 41558-4, THYR #### [facility] ([id number]) [address] [place] [address] 54575 MAGNESIUMon 06-02-2023 Magnesium [Mass/Vol] 2.1 mg/dL Normal 1.8-2.6 [facility] Comment on above: Performed By: #### C BCA, CMP, 30804-8, PINR, 25590-3, 56278-5, 12700-7, 40588-7, THYR #### [facility] ([id number]) [address] [place] [address] 22423 TROPONIN Ion 06-02-2023 Troponin I.cardiac [Mass/Vol] ng/mL Normal 0.00-0.04 [facility] Comment on above: Performed By: #### C BCA, CMP, 22209-4, PINR, 74416-3, 65927-9, 60096-9, 79806-2, THYR #### [facility] ([id number]) [address] [place] [address] [place] [address] CBC AND AUTO DIFFon 06-01-19 24 ABSOLUTE BASOPHIL 0.1 X10E9/L Normal 0.0-0.2 [facility] Comment on above: Performed By: #### C BCA, CMP, 10318-4, PINR, 46951-3, 20292-8, 09692-8, 01544-7, THYR #### [facility] ([id number]) [address] [place] [address] 98398 ABSOLUTE NEUTROPHIL 5.1 X10E9/L Normal 1.5-6.6 [facility] Comment on above: Performed By: #### C BCA, CMP, 04595-9, PINR, 29033-7, 12505-4, 24850-4, 80409-5, THYR #### [facility] ([id number]) [address] [place] [address] 06874 Basophils/100 WBC (Bld) 0.8 % Normal [facility] Comment on above: Performed By: #### C BCA, CMP, 06063-2, PINR, 87065-2, 64409-3, 79978-2, 82048-8, THYR #### [facility] ([id number]) [address] [place] [address] 61575 Eosinophils (Bld) [#/Vol] 0.1 10*3/uL Normal 0.0-0.4 [facility] Comment on above: Performed By: #### C BCA, CMP, 48562-4, PINR, 17261-7, 28023-0, 79502-8, 87534-7, THYR #### [facility] ([id number]) [address] [place] [address] 86015 Eosinophils/100 WBC (Bld) 1.1 % Normal [facility] Comment on above: Performed By: #### C BCA, CMP, 89282-2, PINR, 31489-4, 28530-7, 72972-5, 39965-0, THYR #### [facility] ([id number]) [address] [place] [address] 91604 Erythrocyte distribution width (RBC) [Ratio] 13.0 % Normal 11.5-15.0 [facility] Comment on above: Performed By: #### C BCA, CMP, 72879-5, PINR, 54256-9, 19865-3, 89196-3, 87850-9, THYR #### [facility] ([id number]) [address] [place] [address] 14725 Hematocrit (Bld) [Volume fraction] 41.5 % Normal 39-49 [facility] Comment on above: Performed By: #### C BCA, CMP, 49290-6, PINR, 43839-2, 58770-8, 04248-8, 18461-0, THYR #### [facility] ([id number]) [address] [place] [address] 81884 Hemoglobin (Bld) [Mass/Vol] 14.6 g/dL Normal 13.0-17.0 [facility] Comment on above: Performed By: #### C BCA, CMP, 20439-1, PINR, 60250-3, 80888-1, 78172-0, 55340-3, THYR #### [facility] ([id number]) [address] [place] [address] 35364 Lymphocytes (Bld) [#/Vol] 1.7 10*3/uL Normal 1.0-3.5 [facility] Comment on above: Performed By: #### C BCA, CMP, 82254-0, PINR, 68412-4, 65265-2, 56482-4, 79353-0, THYR #### [facility] ([id number]) [address] [place] [address] 42383 Lymphocytes/100 WBC (Bld) 22.2 % Normal [facility] Comment on above: Performed By: #### C BCA, CMP, 84751-6, PINR, 14888-0, 22633-6, 24308-3, 45939-3, THYR #### [facility] ([id number]) [address] [place] [address] 77311 MCH (RBC) [Entitic mass] 30.4 pg Normal 27-34 [facility] Comment on above: Performed By: #### C BCA, CMP, 52700-0, PINR, 26705-4, 54468-2, 98475-5, 94031-7, THYR #### [facility] ([id number]) [address] [place] [address] 13366 MCHC (RBC) [Mass/Vol] 35.1 g/dL Normal 32-36 [facility] Comment on above: Performed By: #### C BCA, CMP, 13925-5, PINR, 61150-5, 48978-3, 52290-3, 88753-4, THYR #### [facility] ([id number]) [address] [place] [address] 32265 MCV (RBC) [Entitic vol] 87 fL Normal 80-100 [facility] Comment on above: Performed By: #### C BCA, CMP, 03551-0, PINR, 59902-7, 92875-7, 53305-1, 58051-6, THYR #### [facility] ([id number]) [address] [place] [address] 23853 Monocytes (Bld) [#/Vol] 0.6 10*3/uL Normal 0-0.9 [facility] Comment on above: Performed By: #### C BCA, CMP, 59615-9, PINR, 02436-2, 57702-0, 59797-8, 92841-9, THYR #### [facility] ([id number]) [address] [place] [address] 57904 Monocytes/100 WBC (Bld) 7.8 % Normal [facility] Comment on above: Performed By: #### C BCA, CMP, 05274-3, PINR, 91831-5, 06340-5, 56991-4, 83878-7, THYR #### [facility] ([id number]) [address] [place] [address] 07071 Neutrophils/100 WBC (Bld) 68.1 % Normal [facility] Comment on above: Performed By: #### C BCA, CMP, 23363-4, PINR, 78079-2, 68570-4, 69447-2, 21461-4, THYR #### [facility] ([id number]) [address] [place] [address] 85614 Platelet mean volume (Bld) [Entitic vol] 8.3 fL Normal 7-12 [facility] Comment on above: Performed By: #### C BCA, CMP, 60173-9, PINR, 38307-5, 11070-2, 22212-3, 46806-9, THYR #### [facility] ([id number]) [address] [place] [address] 00099 Platelets (Bld) [#/Vol] 207 10*3/uL Normal 150-450 [facility] Comment on above: Performed By: #### C BCA, CMP, 59287-1, PINR, 77512-6, 04293-2, 12793-1, 69531-5, THYR #### [facility] ([id number]) [address] [place] [address] 89179 RBC COUNT 4.79 X10E12/L Normal 4.10-5.70 [facility] Comment on above: Performed By: #### C BCA, CMP, 41380-6, PINR, 18085-4, 99999-1, 29037-9, 11425-4, THYR #### [facility] ([id number]) [address] [place] [address] 45624 WBC (Bld) [#/Vol] 7.5 10*3/uL Normal 4.0-11.0 [facility] Comment on above: Performed By: #### C BCA, CMP, 91995-0, PINR, 18158-5, 74958-9, 58488-4, 52843-8, THYR #### [facility] ([id number]) [address] [place] [address] [place] [address] COMPREHENSIVE METABOLIC PANE Nik 06-01-2023 Albumin [Mass/Vol] 5.0 g/dL Normal 3.2-5.3 [facility] Comment on above: Performed By: #### C BCA, CMP, 40218-4, PINR, 42840-9, 07228-1, 64997-4, 84414-9, THYR #### [facility] ([id number]) [address] [place] [address] [place] [address] ALP [Catalytic activity/Vol] 90 U/L Normal 39-130 [facility] Comment on above: Performed By: #### C BCA, CMP, 35843-5, PINR, 09957-6, 96171-4, 06962-2, 38935-7, THYR #### [facility] ([id number]) [address] [place] [address] 11692 ALT [Catalytic activity/Vol] 32 U/L Normal 0-40 [facility] Comment on above: Performed By: #### C BCA, CMP, 60040-6, PINR, 29110-5, 93271-1, 93530-7, 95509-7, THYR #### [facility] ([id number]) [address] [place] [address] 51078 Anion gap [Moles/Vol] 7 mmol/L Normal 5-15 [facility] Comment on above: Performed By: #### C BCA, CMP, 16800-5, PINR, 47489-2, 08412-6, 87791-2, 25726-3, THYR #### [facility] ([id number]) [address] [place] [address] 43472 AST [Catalytic activity/Vol] 27 U/L Normal 0-41 [facility] Comment on above: Performed By: #### C BCA, CMP, 84270-2, PINR, 82171-7, 75579-2, 38849-8, 14448-4, THYR #### [facility] ([id number]) [address] [place] [address] 62684 Bilirubin [Mass/Vol] 0.8 mg/dL Normal 0.3-1.2 [facility] Comment on above: Performed By: #### C BCA, CMP, 45567-6, PINR, 26983-0, 57128-7, 37598-6, 20484-3, THYR #### [facility] ([id number]) [address] [place] [address] 64876 Calcium [Mass/Vol] 10.1 mg/dL Normal 8.5-10.5 [facility] Comment on above: Performed By: #### C BCA, CMP, 51675-6, PINR, 08430-1, 53471-1, 77487-1, 12926-8, THYR #### [facility] ([id number]) [address] [place] [address] 07683 Chloride [Moles/Vol] 103 mmol/L Normal 98-109 [facility] Comment on above: Performed By: #### C BCA, CMP, 40790-5, PINR, 53132-6, 08995-8, 14220-8, 84344-3, THYR #### [facility] ([id number]) [address] [place] [address] 93248 CO2 [Moles/Vol] 24 mmol/L Normal 22-32 [facility] Comment on above: Performed By: #### C BCA, CMP, 26978-3, PINR, 31972-2, 29901-4, 39873-2, 36186-7, THYR #### [facility] ([id number]) [address] [place] [address] 33305 Creatinine [Mass/Vol] 1.18 mg/dL Normal 0.70-1.20 [facility] Comment on above: Result Comment: METH OD TRACEABLE TO IDMS STANDARD Performed By: #### C BCA, CMP, 36308-0, PINR, 92551-7, 76898-2, 28694-8, 83361-2, THYR #### [facility] ([id number]) [address] [place] [address] 83832 GFR/1.73 sq M.predicted among non-blacks MDRD (S/P/Bld) [Vol rate/Area] 78 mL/min/{1.73_m2} Normal >59 [facility] Comment on above: Result Comment: Reported eGFR is based on the CKD-EPI 2020 equation that does not use a race coefficient. Performed By: #### C BCA, CMP, 18643-2, PINR, 80470-9, 48043-0, 30619-3, 81100-0, THYR #### [facility] ([id number]) [address] [place] [address] 18162 Glucose [Mass/Vol] 86 mg/dL Normal 65-99 [facility] Comment on above: Performed By: #### C BCA, CMP, 32927-6, PINR, 81330-4, 68583-9, 70923-9, 95428-9, THYR #### [facility] ([id number]) [address] [place] [address] 27216 Potassium [Moles/Vol] 3.8 mmol/L Normal 3.5-5.0 [facility] Comment on above: Performed By: #### C BCA, CMP, 26748-1, PINR, 42968-7, 77235-7, 99361-9, 69744-8, THYR #### [facility] ([id number]) [address] [place] [address] 02825 Protein [Mass/Vol] 7.8 g/dL Normal 6.0-8.0 [facility] Comment on above: Performed By: #### C BCA, CMP, 47748-4, PINR, 88018-1, 49516-1, 04271-3, 18392-7, THYR #### [facility] ([id number]) [address] [place] [address] 69475 Sodium [Moles/Vol] 134 mmol/L Normal 134-146 [facility] Comment on above: Performed By: #### C BCA, CMP, 44333-0, PINR, 44360-5, 64624-2, 75738-8, 90725-9, THYR #### [facility] ([id number]) [address] [place] [address] 40281 Urea nitrogen [Mass/Vol] 16 mg/dL Normal 5-23 [facility] Comment on above: Performed By: #### C BCA, CMP, 59262-0, PINR, 48217-8, 90772-2, 69026-9, 76819-6, THYR #### [facility] ([id number]) [address] [place] [address] 66142 DRUG SCREEN, URINEon 024 AMPHETAMINE/METHAMP Negative Normal NEG [facility] Comment on above: Result Comment: AMPH /METH screening cut off = 1000 ng/mL Performed By: #### C BCA, CMP, 56205-4, PINR, 52758-1, 64544-5, 30941-1, 89586-3, THYR #### [facility] ([id number]) [address] [place] [address] 41315 BARBITURATES Negative Normal NEG [facility] Comment on above: Result Comment: Yen iturates screening cut off value = 200 ng/mL Performed By: #### C BCA, CMP, 25760-9, PINR, 88806-8, 44578-9, 70004-1, 36828-1, THYR #### [facility] ([id number]) [address] [place] [address] 82378 BENZODIAZEPINES Negative Normal NEG [facility] Comment on above: Result Comment: Carlos odiazepines screening cut off value = 200 ng/mL Performed By: #### C BCA, CMP, 50408-6, PINR, 59533-2, 74249-2, 12452-2, 62278-0, THYR #### [facility] ([id number]) [address] [place] [address] 20055 CANNABINOIDS Negative Normal NEG [facility] Comment on above: Result Comment: Shirlene abinoids/THC screening cut off value = 50 ng/mL Performed By: #### C BCA, CMP, 40330-9, PINR, 79993-3, 37295-7, 05514-4, 33496-8, THYR #### [facility] ([id number]) [address] [place] [address] 11372 COCAINE METABOLITE Negative Normal NEG [facility] Comment on above: Result Comment: Coca ine screening cut off value = 300 ng/mL Performed By: #### C BCA, CMP, 10217-1, PINR, 41574-5, 12020-3, 71253-5, 01912-0, THYR #### [facility] ([id number]) [address] [place] [address] [place] [address] ECSTASY Negative Normal NEG [facility] Comment on above: Result Comment: Ecst asy screening cut off value = 500 ng/mL This report is intended for use in clinical monitoring or management of patients. Performed By: #### C BCA, CMP, 17354-6, PINR, 71279-7, 77535-5, 05922-0, 81328-1, THYR #### [facility] ([id number]) [address] [place] [address] [place] [address] METHADONE Negative Normal NEG [facility] Comment on above: Result Comment: Meth adone screening cut off value = 300 ng/mL. Performed By: #### C BCA, CMP, 87858-2, PINR, 40462-9, 74422-1, 34066-6, 26010-6, THYR #### [facility] ([id number]) [address] [place] [address] OPIATES Negative Normal [facility] Comment on above: Result Comment: Opia yolande screening cut off value = 300 ng/mL NOTE: This test is used for the detection of codeine, hydrocodone (>1000 ng/mL), morphine and hydromorphone (>900 ng/mL) in urine. Performed By: #### C BCA, CMP, 38669-6, PINR, 21163-8, 70414-0, 19218-1, 75547-7, THYR #### [facility] ([id number]) [address] [place] [address] [place] [address] OXYCODONE Negative Normal NEG [facility] Comment on above: Result Comment: Oxyc odone screening cut off value = 300 ng/mL NOTE: This test is used for the detection of oxycodone and oxymorphone in urine. Performed By: #### C BCA, CMP, 75347-0, PINR, 63778-9, 53027-7, 77328-4, 91730-7, THYR #### [facility] ([id number]) [address] [place] [address] PHENCYCLIDINE Negative Normal NEG [facility] Comment on above: Result Comment: Phen cyclidine screening cut off value = 25 ng/mL Performed By: #### C BCA, CMP, 12082-3, PINR, 51617-4, 16194-4, 33348-6, 64441-9, THYR #### [facility] ([id number]) [address] [place] [address] Fibrin D-dimer DDU (PPP) [Ma ss/Vol]on 06-01-2023 D DIMER <150 Normal <255 [facility] Comment on above: Result Comment: Results <255 ng/mL DDU: The presence of a VTE can safely be excluded with a negative D-Dimer result and Wells score. A negative result doesn't exclude the possibility of DIC. The test be repeated along with other diagnostic tests if the patient's symptoms persist or worsen. [email or web address] Performed By: #### C BCA, CMP, 56011-6, PINR, 99054-9, 89038-6, 81487-6, 39035-1, THYR #### [facility] ([id number]) [address] [place] [address] Lead (BldV) [Mass/Vol]on LEAD, VENOUS 33.8 mcg/dL High <3.5 [facility] Comment on above: Result Comment: NOTE ADDITIONAL INFORMATION Testing performed by Inductively Coupled Plasma-Mass Spectrometry (ICP-MS). This test was developed and its performance characteristics determined by [facility] in a manner consistent with CLIA requirements. This test has not been cleared or approved by the [place].S. Food and Drug Administration. Performed By: #### C MERCEDES, ERIK, 93088-9, PINR, 07484-4, 56301-8, 86062-3, 52230-3, THYR #### [facility] ([id number]) [address] [place] [address] MAGNESIUMon 06-01-2023 Magnesium [Mass/Vol] 2.1 mg/dL Normal 1.8-2.6 [facility] Comment on above: Performed By: #### C MERCEDES, ERIK, 37181-0, PINR, 12042-4, 96604-9, 74811-6, 21550-8, THYR #### [facility] [facility] ([id number]) [address] [place] [address]123 Natriuretic peptide B [Mass/ Vol]on 06-01-2023 BRN NATRIURETIC PEP <5 Normal <100.0 [facility] Comment on above: Performed By: #### C MERCEDES, ERIK, 50133-0, PINR, 97520-1, 66963-1, 00575-9, 49953-4, THYR #### [facility] ([id number]) [address] [place] [address] 95800 PROTIME AND INRon 06-01-2023 INR Coag (PPP) [Relative time] 1.1 {INR} Normal 0.8-1.1 [facility] Comment on above: Performed By: #### C BCA, CMP, 00032-9, PINR, 68610-2, 10696-0, 02340-1, 12793-4, THYR #### [facility] ([id number]) [address] [place] [address] 55312 PT Coag (PPP) [Time] 12.6 s Normal 9.8-13.2 [facility] Comment on above: Result Comment: NEW REFERENCE RANGE Performed By: #### C BCA, CMP, 59246-7, PINR, 17931-0, 74239-6, 54908-6, 33020-3, THYR #### [facility] ([id number]) [address] [place] [address] 99799 THYROID PROFILEon 06-01-2023 Free T4 [Mass/Vol] 0.88 ng/dL Normal 0.61-1.60 [facility] Comment on above: Performed By: #### C BCA, CMP, 82606-0, PINR, 72027-9, 34829-9, 96480-0, 80307-6, THYR #### [facility] ([id number]) [address] [place] [address] 71991 TSH 1.27 uIU/mL Normal 0.49-4.67 [facility] Comment on above: Performed By: #### C BCA, CMP, 13695-8, PINR, 04685-7, 68669-3, 05305-9, 68115-4, THYR #### [facility] ([id number]) [address] [place] [address] 29404 TROPONIN Ion 06-01-2023 Troponin I.cardiac [Mass/Vol] ng/mL Normal 0.00-0.04 [facility] Comment on above: Performed By: #### C BCA, CMP, 91397-2, PINR, 47552-4, 40297-5, 42170-8, 53950-7, THYR #### [facility] ([id number]) [address] [place] [address] 68231 URN MACROSCOPIC NURon 2023 BILIRUBIN FITO Negative Normal NEG [facility] Comment on above: Performed By: #### C BCA, CMP, 79610-0, PINR, 71958-6, 19249-7, 38062-9, 80936-6, THYR #### [facility] ([id number]) [address] [place] [address] 99382 BLOOD/HGB FITO Negative Normal NEG [facility] Comment on above: Performed By: #### C BCA, CMP, 95072-1, PINR, 96875-4, 42043-7, 28116-9, 21474-8, THYR #### [facility] ([id number]) [address] [place] [address] 28502 GLUCOSE FITO Negative Normal NEG [facility] Comment on above: Performed By: #### C BCA, CMP, 80320-0, PINR, 25706-9, 66784-5, 66429-9, 59090-9, THYR #### [facility] ([id number]) [address] [place] [address] 07878 KETONES FITO 40 mg/dL Abnormal NEG [facility] Comment on above: Performed By: #### C BCA, CMP, 88482-7, PINR, 43500-9, 06852-6, 38400-0, 63391-6, THYR #### [facility] ([id number]) [address] [place] [address] 26406 LEUKOCYTE ESTERASE FITO Negative Normal NEG [facility] Comment on above: Performed By: #### C BCA, CMP, 45638-9, PINR, 54621-5, 68301-5, 76922-0, 00059-5, THYR #### [facility] ([id number]) [address] [place] [address] 25187 NITRITE FITO Negative Normal NEG [facility] Comment on above: Performed By: #### C BCA, CMP, 12720-6, PINR, 60613-6, 23049-0, 92956-7, 76478-7, THYR #### [facility] ([id number]) [address] [place] [address] 79359 PH FITO 5.5 Normal 5.0-8.5 [facility] Comment on above: Performed By: #### C BCA, CMP, 44637-9, PINR, 84266-9, 03760-0, 36200-8, 90058-5, THYR #### [facility] ([id number]) [address] [place] [address] 82204 PROTEIN FITO Negative Normal NEG [facility] Comment on above: Performed By: #### C BCA, CMP, 59760-1, PINR, 04521-9, 54629-0, 99397-2, 12479-4, THYR #### [facility] ([id number]) [address] [place] [address] 06781 SPECIFIC GRAVITY FITO 1.025 Normal 1.003-1.035 [facility] Comment on above: Performed By: #### C BCA, CMP, 75599-4, PINR, 71894-5, 80386-4, 59681-4, 19862-5, THYR #### [facility] ([id number]) [address] [place] [address] 14272 UROBILINOGEN FITO 0.2 eu/dL Normal <1.1 [facility] Comment on above: Performed By: #### C BCA, CMP, 41982-0, PINR, 53868-1, 58056-4, 53139-0, 56628-6, THYR #### [facility] ([id number]) [address] [place] [address] 32541 XR CHEST 1 VWon 06-01-2023 XR CHEST [...] Pardo DO on 06/01/2023 3:32 PM Normal [facility] aPTT Coag (PPP) [Time]on aPTT Coag (Bld) [Time] 35 s Normal 26-37 [facility] Comment on above: Result Comment: NEW REFERENCE RANGE Performed By: #### C BCA, CMP, 20874-3, PINR, 00155-3, 12480-8, 40451-9, 22274-8, THYR #### [facility] ([id number]) [address] [place] [address], [place] [address] LEAD,ADULTon 09-05-2022 Lead, Blood (Adult) 45.4 ug/dL Invalid Interpretation Code 0.0-3.4 [facility] Comment on above: Result Comment: Test ing performed by Inductively coupled plasma/Mass Spectrometry. Verified by repeat analysis Analysis by inductively coupled plasma/mass spectrometry (ICP/MS) Environmental Exposure: WHO Recommendation <20.0 Occupational Exposure: OSHA Lead Std 40.0 CHAZ 30.0 . Detection Limit = 1.0 Performed By: #### L EADA #### [facility] [address] [place] [address] Dr. Rachel Cortez LEAD,ADULT 09-01-2022 Lead, Blood (Adult) CLOTWB Normal [facility] Comment on above: Result Comment: Test not performed. Whole blood specimen partially or completely clotted. A common cause is insufficient mixing upon collection. Testing performed by Inductively coupled plasma/Mass Spectrometry. contacted Nohelia at your facility on 09-01-2022 Environmental Exposure: WHO Recommendation <20.0 Occupational Exposure: OSHA Lead Std 40.0 CHAZ 30.0 . Detection Limit = 1.0 Performed By: #### I NSULIN #### [facility] [address] [place] [address] Dr. Rachel COLLINS,ADULTon 08-30-2022 Lead, Blood (Adult) CLOTWB Normal [facility] Comment on above: Result Comment: Test not performed. Whole blood specimen partially or completely clotted. A common cause is insufficient mixing upon collection. Testing performed by Inductively coupled plasma/Mass Spectrometry. contacted Taya at your facility on 08-30-2022 Environmental Exposure: WHO Recommendation <20.0 Occupational Exposure: OSHA Lead Std 40.0 CHAZ 30.0 . Detection Limit = 1.0 Performed By: #### L EADA #### [facility] [address] [place] [address] Dr. Rachel Cortez BNPon 08-29-2022 Natriuretic peptide B (Bld) [Mass/Vol] 10.0 pg/mL Normal <=450.0 [facility] Comment on above: Performed By: #### C MP, TSH, BNP #### [facility] [address] [place] [address] Dr. Rachel Cortez CBC AUTO DIFFon 08-29-2022 BASO # 0.0 103/ul Normal 0.0-0.1 [facility] Comment on above: Performed By: #### C BC #### [facility] [address] [place] [address] Dr. Rachel Cortez Basophils/100 WBC (Bld) 0.5 % Normal 0.2-2.0 [facility] Comment on above: Performed By: #### C BC #### [facility] [address] [place] [address] Dr. Rachel Cortez EO # 0.2 103/ul Normal 0.0-0.7 [facility] Comment on above: Performed By: #### C BC #### [facility] [address] [place] [address] Dr. Rachel Cortez Eosinophils/100 WBC (Bld) 2.7 % Normal 0.9-7.0 [facility] Comment on above: Performed By: #### C BC #### [facility] [address] [place] [address] Dr. Rachel Cortez Erythrocyte distribution width (RBC) [Ratio] 12.3 % Normal 11.0-15.0 [facility] Comment on above: Performed By: #### C BC #### [facility] [address] [place] [address] Dr. Rachel Coretz Hematocrit (Bld) [Volume fraction] 40.9 % Critically low 42.0-54.0 [facility] Comment on above: Performed By: #### C BC #### [facility] [address] [place] [address] Dr. Rachel Cortez Hemoglobin (Bld) [Mass/Vol] 13.9 g/dL Critically low 14.0-18.0 [facility] Comment on above: Performed By: #### C BC #### [facility] [address] [place] [address] Dr. Rachel Cortez IG # 0.02 10e3/ul Normal 0.00-0.03 [facility] Comment on above: Performed By: #### C BC #### [facility] [address] [place] [address] Dr. Rachel Cortez IG % 0.3 % Normal 0.0-0.5 [facility] Comment on above: Performed By: #### C BC #### [facility] [address] [place] [address] Dr. Rachel Cortez LYMPH # 1.6 103/ul Normal 1.2-3.8 [facility] Comment on above: Performed By: #### C BC #### [facility] [address] [place] [address] Dr. Rachel Cortez Lymphocytes/100 WBC (Bld) 21.2 % Normal 20.5-60.0 [facility] Comment on above: Performed By: #### C BC #### [facility] [address] [place] [address] Dr. Rachel Cortez MANUAL DIFF REQ NO Normal [facility] Comment on above: Performed By: #### C BC #### [facility] [address] [place] [address] Dr. Rachel Cortez MCH (RBC) [Entitic mass] 30.3 pg Normal 25.9-34.0 [facility] Comment on above: Performed By: #### C BC #### [facility] [address] [place] [address] Dr. Rachel Cortez MCHC (RBC) [Mass/Vol] 34.0 g/dL Normal 29.9-35.2 [facility] Comment on above: Performed By: #### C BC #### [facility] [address] [address] [address] Rachel Cortez MCV (RBC) [Entitic vol] 89.3 fL Normal 80.0-94.0 [facility] Comment on above: Performed By: #### C BC #### [facility] [address] [address] [address] Rachel Cortez MONO # 0.6 103/ul Normal 0.3-0.8 [facility] Comment on above: Performed By: #### C BC #### [facility] [address] [address] [address] Rachel Cortez Monocytes/100 WBC (Bld) 8.6 % Normal 1.7-12.0 [facility] Comment on above: Performed By: #### C BC #### [facility] [address] [address] [address] Rachel Cortez NEUT # 5.0 103/ul Normal 1.4-6.5 [facility] Comment on above: Performed By: #### C BC #### [facility] [address] [place] [address] Dr. Rachel Cortez Neutrophils/100 WBC (Bld) 66.7 % Normal 43.0-75.0 [facility] Comment on above: Performed By: #### C BC #### [facility] [address] [address] [address] Rachel Cortez Platelet mean volume (Bld) [Entitic vol] 10.2 fL Normal 9.5-13.5 [facility] Comment on above: Performed By: #### C BC #### [facility] [address] [address] [address] Rachel Cortez PLT 198 103/ul Normal 150-450 [facility] Comment on above: Performed By: #### C BC #### [facility] [address] [address] [address] Rachel Cortez RBC 4.58 106/ul Critically low 4.70-6.10 [facility] Comment on above: Performed By: #### C BC #### [facility] [address] [place] [address] Dr. Rachel Cortez WBC 7.5 103/ul Normal 4.0-11.0 [facility] Comment on above: Performed By: #### C BC #### [facility] [address] [place] [address] Dr. Rachel Cortez FREE T4on 08-29-2022 Free T4 [Mass/Vol] 0.84 ng/dL Normal 0.76-1.46 [facility] Comment on above: Performed By: #### I KANDIS FT4 #### [facility] [address] [place] [address] Dr. Rachel Cortez IRONon 08-29-2022 Iron [Mass/Vol] 86.0 ug/dL Normal 65.0-175.0 [facility] Comment on above: Performed By: #### I KANDIS FT4 #### [facility] [address] [place] [address] Dr. Rachel Cortez PROF 14(COMP METB)on 023 Albumin [Mass/Vol] 4.0 g/dL Normal 3.4-5.0 [facility] Comment on above: Performed By: #### C MP, TSH, BNP #### [facility] [address] [place] [address] Dr. Rachel Cortez Albumin/Globulin [Mass ratio] 1.2 {ratio} Normal [facility] Comment on above: Performed By: #### C MP, TSH, BNP #### [facility] [address] [place] [address] Dr. Rachel Cortez ALP [Catalytic activity/Vol] 103 U/L Normal 46-116 [facility] Comment on above: Performed By: #### C MP, TSH, BNP #### [facility] [address] [place] [address] Dr. Rachel Cortez ALT [Catalytic activity/Vol] 39 U/L Normal 16-63 [facility] Comment on above: Performed By: #### C MP, TSH, BNP #### [facility] [address] [place] [address] Dr. Rachel Cortez Anion gap [Moles/Vol] 10.2 mmol/L Normal [facility] Comment on above: Performed By: #### C MP, TSH, BNP #### [facility] [address] [place] [address] Dr. Rachel Cortez AST [Catalytic activity/Vol] 20 U/L Normal 15-37 [facility] Comment on above: Performed By: #### C MP, TSH, BNP #### [facility] [address] [place] [address] Dr. Rachel Cortez Bilirubin [Mass/Vol] 0.3 mg/dL Normal 0.2-1.0 [facility] Comment on above: Performed By: #### C MP, TSH, BNP #### [facility] [address] [place] [address] Dr. Rachel Cortez Calcium [Mass/Vol] 9.8 mg/dL Normal 8.5-10.1 [facility] Comment on above: Performed By: #### C MP, TSH, BNP #### [facility] [address] [place] [address] Dr. Rachel Cortez Chloride [Moles/Vol] 105 mmol/L Normal 98-107 [facility] Comment on above: Performed By: #### C MP, TSH, BNP #### [facility] [address] [place] [address] Dr. Rachel Cortez CO2 [Moles/Vol] 29.9 mmol/L Normal 21.0-32.0 [facility] Comment on above: Performed By: #### C MP, TSH, BNP #### [facility] [address] [place] [address] Dr. Rachel Cortez Creatinine [Mass/Vol] 1.19 mg/dL Normal 0.70-1.30 [facility] Comment on above: Performed By: #### C MP, TSH, BNP #### [facility] [address] [place] [address] Dr. Rachel Cortez EGFR-AF TURKMEN >60 Normal >=60 [facility] Comment on above: Performed By: #### C MP, TSH, BNP #### [facility] [address] [place] [address] Dr. Rachel Cortez EGFR-NON AF TURKMEN >60 Normal >=60 [facility] Comment on above: Performed By: #### C MP, TSH, BNP #### [facility] [address] [place] [address] Dr. Rachel Cortez Globulin (S) [Mass/Vol] 3.4 g/dL Normal [facility] Comment on above: Performed By: #### C MP, TSH, BNP #### [facility] [address] [place] [address] Dr. Rachel Cortez Glucose [Mass/Vol] 105 mg/dL Normal 74-106 [facility] Comment on above: Performed By: #### C MP, TSH, BNP #### [facility] [address] [place] [address] Dr. Rachel Cortez Potassium [Moles/Vol] 4.1 mmol/L Normal 3.5-5.1 [facility] Comment on above: Performed By: #### C MP, TSH, BNP #### [facility] [address] [place] [address] Dr. Rachel Cortez Protein [Mass/Vol] 7.4 g/dL Normal 6.4-8.2 [facility] Comment on above: Performed By: #### C MP, TSH, BNP #### [facility] [address] [place] [address] Dr. Rachel Cortez Sodium [Moles/Vol] 141 mmol/L Normal 136-145 [facility] Comment on above: Performed By: #### C MP, TSH, BNP #### [facility] [address] [place] [address] Dr. Rachel Cortez Urea nitrogen [Mass/Vol] 16.0 mg/dL Normal 7.0-18.0 [facility] Comment on above: Performed By: #### C MP, TSH, BNP #### [facility] [address] [place] [address] Dr. Rachel Cortez Urea nitrogen/Creatinine [Mass ratio] 13.4 mg/mg Normal [facility] Comment on above: Performed By: #### C MP, TSH, BNP #### [facility] [address] [address] [address] Rachel Cortez TSHon 08-29-2022 TSH 0.978 uIU/mL Normal 0.358-3.740 [facility] Comment on above: Performed By: #### I NSULIN #### [facility] [address] [address] [address] FACIAL BONES WO [...] WILFRID CAMARENA Date: 2022-08-11 18:30 Normal [facility] CT HEAD WO CONon 08-11-2022 CT HEAD [...] MARLYS MUNOZ Date: 2022-08-11 19:49 Normal [facility] INSULINon 05-09-2022 Insulin 9.9 uIU/mL Normal 2.6-24.9 [facility] Comment on above: Performed By: #### I NSULIN #### [facility] [address] [place] [address] Dr. Rachel Cortez CBC AUTO DIFFon 05-07-2022 BASO # 0.1 103/ul Normal 0.0-0.1 [facility] Comment on above: Performed By: #### I NSULIN #### [facility] [address] [place] [address] Dr. Rachel Cortez Basophils/100 WBC (Bld) 0.7 % Normal 0.2-2.0 [facility] Comment on above: Performed By: #### I NSULIN #### [facility] [address] [place] [address] Dr. Rachel Cortez EO # 0.0 103/ul Normal 0.0-0.7 [facility] Comment on above: Performed By: #### I NSULIN #### [facility] [address] [place] [address] Dr. Rachel Cortez Eosinophils/100 WBC (Bld) 0.1 % Critically low 0.9-7.0 [facility] Comment on above: Performed By: #### I NSULIN #### [facility] [address] [place] [address] Dr. Rachel Cortez Erythrocyte distribution width (RBC) [Ratio] 12.2 % Normal 11.0-15.0 [facility] Comment on above: Performed By: #### I NSULIN #### [facility] [address] [place] [address] Dr. Rachel Cortez Hematocrit (Bld) [Volume fraction] 41.1 % Critically low 42.0-54.0 [facility] Comment on above: Performed By: #### I NSULIN #### [facility] [address] [address] [address] Rachel Cortez Hemoglobin (Bld) [Mass/Vol] 14.1 g/dL Normal 14.0-18.0 [facility] Comment on above: Performed By: #### I NSULIN #### [facility] [address] [place] [address] Dr. Rachel Cortez IG # 0.03 10e3/ul Normal 0.00-0.03 [facility] Comment on above: Performed By: #### I NSULIN #### [facility] [address] [place] [address] Dr. Rachel Cortez IG % 0.4 % Normal 0.0-0.5 [facility] Comment on above: Performed By: #### I NSULIN #### [facility] [address] [place] [address] Dr. Rachel Cortez LYMPH # 2.3 103/ul Normal 1.2-3.8 [facility] Comment on above: Performed By: #### I NSULIN #### [facility] [address] [place] [address] Dr. Rachel Cortez Lymphocytes/100 WBC (Bld) 30.8 % Normal 20.5-60.0 [facility] Comment on above: Performed By: #### I NSULIN #### [facility] [address] [place] [address] Dr. Rachel Cortez MANUAL DIFF REQ NO Normal [facility] Comment on above: Performed By: #### I NSULIN #### [facility] [address] [place] [address] Dr. Rachel Cortez MCH (RBC) [Entitic mass] 29.9 pg Normal 25.9-34.0 [facility] Comment on above: Performed By: #### I NSULIN #### [facility] [address] [place] [address] Dr. Rachel Cortez MCHC (RBC) [Mass/Vol] 34.3 g/dL Normal 29.9-35.2 [facility] Comment on above: Performed By: #### I NSULIN #### [facility] [address] [address] [address] Rachel Cortez MCV (RBC) [Entitic vol] 87.3 fL Normal 80.0-94.0 [facility] Comment on above: Performed By: #### I NSULIN #### [facility] [address] [address] [address] Rachel Cortez MONO # 0.7 103/ul Normal 0.3-0.8 [facility] Comment on above: Performed By: #### I NSULIN #### [facility] [address] [place] [address] Dr. Rachel Cortez Monocytes/100 WBC (Bld) 8.9 % Normal 1.7-12.0 [facility] Comment on above: Performed By: #### I NSULIN #### [facility] [address] [place] [address] Dr. Rachel Cortez NEUT # 4.3 103/ul Normal 1.4-6.5 [facility] Comment on above: Performed By: #### I NSULIN #### [facility] [address] [place] [address] Dr. Rachel Cortez Neutrophils/100 WBC (Bld) 59.1 % Normal 43.0-75.0 [facility] Comment on above: Performed By: #### I NSULIN #### [facility] [address] [place] [address] Dr. Rachel Cortez Platelet mean volume (Bld) [Entitic vol] 9.9 fL Normal 9.5-13.5 [facility] Comment on above: Performed By: #### I NSULIN #### [facility] [address] [place] [address] Dr. Rachel Cortez PLT 184 103/ul Normal 150-450 [facility] Comment on above: Performed By: #### I NSULIN #### [facility] [address] [place] [address] Dr. Rachel Cortez RBC 4.71 106/ul Normal 4.70-6.10 [facility] Comment on above: Performed By: #### I NSULIN #### [facility] [address] [place] [address] Dr. Rachel Cortez WBC 7.3 103/ul Normal 4.0-11.0 [facility] Comment on above: Performed By: #### I NSULIN #### [facility] [address] [place] [address] Dr. Rachel Cortez CULTURE URINEon 05-07-2022 CULTURE URINE Culture Observations: LIGHT GROWTH OF MIXED SKIN NILES. NO POTENTIAL PATHOGENS SEEN. Normal [facility] [place] Comment on above: Performed By: #### I NSULIN #### [facility] [place] [facility] [address] [place] [address] Dr. Rachel Cortez FREE THYROXINE INDEX T7on FTI 2.07 Normal 1.30-4.50 [facility] [place] Comment on above: Performed By: #### I NSULIN #### [facility] [place] [facility] [address] [place] [address] Dr. Rachel Cortez T3U 35.0 % Normal 33.0-40.0 [facility] [place] Comment on above: Performed By: #### I NSULIN #### [facility] [place] [facility] [address] [place] [address] Dr. Rachel Cortez T4 [Mass/Vol] 5.90 ug/dL Normal 4.50-12.10 [facility] Comment on above: Performed By: #### I NSULIN #### [facility] [place] [facility] [address] [place] [address] Dr. Rachel Cortez GLYCOHEMOGLOBIN A1Con 2022 ADA RECOMMENDATION SEE BELOW Normal [facility] Comment on above: Result Comment: ADA RECOMMENDED LIMIT 4.0 - 6.0 ADA THERAPEUTIC TARGET < 7.0 ACTION SUGGESTED > 7.0 Performed By: #### A 1C #### [facility] [place] [facility] [address] [place] [address] Dr. Rachel Cortez Glucose [Mass/Vol] 100 mg/dL Normal [facility] Comment on above: Performed By: #### A 1C #### [facility] [place] [facility] [address] [place] [address] Dr. Rachel Cortez HbA1c (Bld) [Mass fraction] 5.1 % Normal 4.5-6.2 [facility] [place] Comment on above: Performed By: #### A 1C #### [facility] [place] [facility] [address] [address] [address] Rachel Cortez IRONon 05-07-2022 Iron [Mass/Vol] 104.0 ug/dL Normal 65.0-175.[address] [facility] Comment on above: Performed By: #### I NSULIN #### [facility] [place] [facility] [address] [address] [address] Rachel Cortez LIPID PROFILEon 05-07-2022 CHOL-HDL RATIO NORM SEE BELOW Normal [facility] Comment on above: Result Comment: 3.3 - 4.4 LOW RISK 4.4 - 7.1 AVERAGE RISK 7.1 - 11.0 MODERATE RISK >11.0 HIGH RISK Performed By: #### C MP, LIPID #### [facility] [place] [facility] [address] [place] [address] Dr. Rachel Cortez Cholesterol [Mass/Vol] 147 mg/dL Normal <=200 [facility] [place] Comment on above: Performed By: #### C MP, LIPID #### [facility] [place] [facility] [address] [place] [address] Dr. Rachel Cortez Cholesterol in HDL [Mass/Vol] 56 mg/dL Normal 40-60 [facility] [place] Comment on above: Performed By: #### C MP, LIPID #### [facility] [place] [facility] [address] [place] [address] Dr. Rcahel Cortez Cholesterol in LDL [Mass/Vol] 77.8 mg/dL Normal [facility] [place] Comment on above: Performed By: #### C MP, LIPID #### [facility] [place] [facility] [address] [place] [address] Dr. Rachel Cortez Cholesterol.total/Ch olesterol in HDL [Mass ratio] 2.6 {ratio} Normal [facility] [place] Comment on above: Performed By: #### C MP, LIPID #### [facility] [place] [facility] [address] [place] [address] Dr. Rachel Cortez HDL NORMAL > or = 60 mg/dl - LOW CARDIOVASCULAR RISK <40 mg/dl - HIGH CARDIOVASCULAR RISK Normal [facility] [place] Comment on above: Performed By: #### C MP, LIPID #### [facility] [place] [facility] [address] [place] [address] Dr. Rachel Cortez LDL CALC NORMAL SEE BELOW Normal [facility] Comment on above: Result Comment: <100 mg/dl OPTIMAL 100 - 129 mg/dl NEAR OR ABOVE OPTIMAL 130 - 159 mg/dl BORDERLINE HIGH 160 - 189 mg/dl HIGH >190 mg/dl VERY HIGH Performed By: #### C MP, LIPID #### [facility] [place] [facility] [address] [place] [address] Dr. Rachel Cortez Triglyceride [Mass/Vol] 66 mg/dL Normal <=150 [facility] [place] Comment on above: Performed By: #### C MP, LIPID #### [facility] [place] [facility] [address] [place] [address] Dr. Rachel Cortez VLDL CALC 13.2 mg/dL Normal [facility] [place] Comment on above: Performed By: #### C MP, LIPID #### [facility] [place] [facility] [address] [place] [address] Dr. Rachel Cortez PROF 14(COMP METB)on 023 Albumin [Mass/Vol] 4.0 g/dL Normal 3.4-5.0 [facility] Comment on above: Performed By: #### C MP, LIPID #### [facility] [place] [facility] [address] [place] [address] Dr. Rachel Cortez Albumin/Globulin [Mass ratio] 1.3 {ratio} Normal [facility] [place] Comment on above: Performed By: #### C MP, LIPID #### [facility] [place] [facility] [address] [place] [address] Dr. Rachel Cortez ALP [Catalytic activity/Vol] 86 U/L Normal 46-116 [facility] [place] Comment on above: Performed By: #### C MP, LIPID #### [facility] [place] [facility] [address] [place] [address] Dr. Rachel Cortez ALT [Catalytic activity/Vol] 35 U/L Normal 16-63 [facility] [place] Comment on above: Performed By: #### C MP, LIPID #### [facility] [place] [facility] [address] [place] [address] Dr. Rachel Cortez Anion gap [Moles/Vol] 9.9 mmol/L Normal [facility] [place] Comment on above: Performed By: #### C MP, LIPID #### [facility] [address] [place] [address] Dr. Rachel Cortez AST [Catalytic activity/Vol] 22 U/L Normal 15-37 [facility] [place] Comment on above: Performed By: #### C MP, LIPID #### [facility] [address] [place] [address] Dr. Rachel Cortez Bilirubin [Mass/Vol] 0.4 mg/dL Normal 0.2-1.0 [facility] [place] Comment on above: Performed By: #### C MP, LIPID #### [facility] [address] [place] [address] Dr. Rachel Cortez Calcium [Mass/Vol] 10.1 mg/dL Normal 8.5-10.1 [facility] Comment on above: Performed By: #### C MP, LIPID #### [facility] [place] [facility] [address] [place] [address] Dr. Rachel Cortez Chloride [Moles/Vol] 107 mmol/L Normal 98-107 [facility] [place] Comment on above: Performed By: #### C MP, LIPID #### [facility] [place] [facility] [address] [place] [address] Dr. Rachel Cortez CO2 [Moles/Vol] 30.0 mmol/L Normal 21.0-32.[address] [facility] Comment on above: Performed By: #### C MP, LIPID #### [facility] [place] [facility] [address] [place] [address] Dr. Rachel Cortez Creatinine [Mass/Vol] 1.16 mg/dL Normal 0.70-1.30 [facility] [place] Comment on above: Performed By: #### C MP, LIPID #### [facility] [place] [facility] [address] [place] [address] Dr. Rachel Cotrez EGFR-AF TURKMEN >60 Normal >=60 [facility] Comment on above: Performed By: #### C MP, LIPID #### [facility] [place] [facility] [address] [place] [address] Dr. Rachel Cortez EGFR-NON AF TURKMEN >60 Normal >=60 [facility] Comment on above: Performed By: #### C MP, LIPID #### [facility] [place] [facility] [address] [address] [address] Rachel Cortez Globulin (S) [Mass/Vol] 3.0 g/dL Normal [facility] [place] Comment on above: Performed By: #### C MP, LIPID #### [facility] [place] [facility] [address] [address] [address] Rachel Cortez Glucose [Mass/Vol] 88 mg/dL Normal 74-106 [facility] Comment on above: Performed By: #### C MP, LIPID #### [facility] [place] [facility] [address] [place] [address] Dr. Rachel Cortez Potassium [Moles/Vol] 3.9 mmol/L Normal 3.5-5.1 [facility] [place] Comment on above: Performed By: #### C MP, LIPID #### [facility] [address] [place] [address] Dr. Rachel Cortez Protein [Mass/Vol] 7.0 g/dL Normal 6.4-8.2 [facility] Comment on above: Performed By: #### C MP, LIPID #### [facility] [place] [facility] [address] [place] [address] Dr. Rachel Cortez Sodium [Moles/Vol] 143 mmol/L Normal 136-145 [facility] Comment on above: Performed By: #### C MP, LIPID #### [facility] [place] [facility] [address] [place] [address] Dr. Rachel Cortez Urea nitrogen [Mass/Vol] 16.0 mg/dL Normal 7.0-18.0 [facility] [place] Comment on above: Performed By: #### C MP, LIPID #### [facility] [address] [place] [address] Dr. Rachel Cortez Urea nitrogen/Creatinine [Mass ratio] 13.8 mg/mg Normal [facility] [place] Comment on above: Performed By: #### C MP, LIPID #### [facility] [place] [facility] [address] [place] [address] Dr. Rachel Cortez TSHon 05-07-2022 TSH 2.417 uIU/mL Normal 0.358-3.740 [facility] Comment on above: Performed By: #### I NSULIN #### [facility] [place] [facility] [address] [place] [address] Dr. Rachel Cortez UA RANDOM W/MICROSCOPICon BACTERIA NONE SEEN Normal NONE SEEN [facility] [place] Comment on above: Performed By: #### I NSULIN #### [facility] [place] [facility] [address] [place] [address] Dr. Rachel Cortez Bilirubin Ql (U) Negative Normal NEGATIVE [facility] Comment on above: Performed By: #### I NSULIN #### [facility] [place] [facility] [address] [place] [address] Dr. Rachel Cortez CAST NONE SEEN Normal NONE SEEN [facility] [place] Comment on above: Performed By: #### I NSULIN #### [facility] [address] [place] [address] Dr. Rachel Cortez Clarity (U) CLEAR Normal CLEAR [facility] [place] Comment on above: Performed By: #### I NSULIN #### [facility] [place] [facility] [address] [place] [address] Dr. Rachel Cortez Color (U) YELLOW Normal YELLOW [facility] [place] Comment on above: Performed By: #### I NSULIN #### [facility] [place] [facility] [address] [place] [address] Dr. Rachel Cortez Crystals LM Nom (Urine sed) NONE SEEN Normal NONE SEEN [facility] [place] Comment on above: Performed By: #### I NSULIN #### [facility] [address] [place] [address] Dr. Rachel Cortez Epithelial cells LM Ql (Urine sed) NONE SEEN Normal NONE SEEN /RARE [facility] [place] Comment on above: Performed By: #### I NSULIN #### [facility] [place] [facility] [address] [place] [address] Dr. Rachel Cortez Glucose Ql (U) Negative Normal NEGATIVE [facility] Comment on above: Performed By: #### I NSULIN #### [facility] [place] [facility] [address] [place] [address] Dr. Rachel Cortez Hemoglobin Ql (U) Negative Normal NEGATIVE [facility] Comment on above: Performed By: #### I NSULIN #### [facility] [place] [facility] [address] [address] [address] Rachel Cortez Ketones Ql (U) Negative Normal NEGATIVE [facility] Comment on above: Performed By: #### I NSULIN #### [facility] [place] [facility] [address] [place] [address] Dr. Rachel Cortez LEUKOCYTES Negative Normal NEGATIVE [facility] [place] Comment on above: Performed By: #### I NSULIN #### [facility] [place] [facility] [address] [address] [address] Rachel Cortez MUCOUS MODERATE Abnormal NONE SEEN [facility] [place] Comment on above: Performed By: #### I NSULIN #### [facility] [place] [facility] [address] [address] [address] Rachel Cortez Nitrite Ql (U) Negative Normal NEGATIVE [facility] Comment on above: Performed By: #### I NSULIN #### [facility] [place] [facility] [address] [address] [address] Rachel Cortez pH (U) 6.0 [pH] Normal 5-9 [facility] [place] Comment on above: Performed By: #### I NSULIN #### [facility] [place] [facility] [address] [address] [address] Rachel Cortez RBC NONE SEEN Abnormal 0-2 [facility] [place] Comment on above: Performed By: #### I NSULIN #### [facility] [place] [facility] [address] [place] [address] Dr. Rachel Cortez SPEC GRAVITY 1.030 Abnormal 1.005-<=1.025 [facility] Comment on above: Performed By: #### I NSULIN #### [facility] [place] [facility] [address] [address] [address] Rachel Cortez UA PROTEIN Negative Normal NEGATIVE/ TRACE [facility] [place] Comment on above: Performed By: #### I NSULIN #### [facility] [place] [facility] [address] [place] [address] Dr. Rachel Cortez Urobilinogen Qn (U) 1.0 {Colby'U}/dL Normal 0.2 - 1. 0 [facility] [place] Comment on above: Performed By: #### I NSULIN #### [facility] [place] [facility] [address] [address] [address] Rachel Cortez WBC NONE SEEN Normal NONE SEEN [facility] [place] Comment on above: Performed By: #### I NSULIN #### [facility] [place] [facility] [address] [place], [place] [address] Dr. Rachel Cortez XR LSPINE MIN 4 [...] MARINA MAIN Date: 2022-05-06 16:40 Normal [facility] Vital Signs Date Time Vital Sign Value Performing Clinician Myra chisholm 02-01-2024 14:42-0400 Blood Pressure Location Kim Sarmini [facility] 02-01-2024 14:42-0400 Diastolic blood pressure 78 mm[Hg] Kim Sarmini [facility] 02-01-2024 14:42-0400 Heart rate 80 /min Kim Sarmini [facility] 02-01-2024 14:42-0400 Respiratory rate 18 /min Kim Sarmini [facility] 02-01-2024 14:42-0400 Systolic blood pressure 108 mm[Hg] Kim Sarmini [facility] 08-02-2023 15:48-0400 Body height 177.8 cm Ji [...] Date Encounter Type Care Provider Facility Start: 03-11-2024 ambulatory Kim Talal Sarmini Facility:[facility] Start: 02-09-2024 End: 02-09-2024 Documentation procedure Magda Emmanuel [employer]PER[employer] [facility] Start: 02-08-2024 End: 02-08-2024 Documentation procedure Magda Emmanuel [employer] [facility] Comment on above: Lead toxicity, accid ental or unintentional, initial encounter (Primary Dx) Start: 02-01-2024 End: 02-01-2024 ambulatory Kim Talal Sarmini Facility:[facility] Start: 02-01-2024 End: 02-01-2024 Patient encounter procedure Kim Talal Sarmini [facility] Start: 01-05-2024 ambulatory Kim Sarmini Facili ty:[facility] Start: 01-02-2024 ambulatory Julio Mckinley Ambar ty:AGUEDA Lucero Start: 12-18-2023 End: 12-19-2023 ambulatory BERNARDO HAYNES [facility] Start: 08-10-2023 End: 08-10-2023 ambulatory [facility] Facility:[facility] Start: 08-10-2023 End: 08-10-2023 ambulatory Jean Valencia PT Work Phone: Physical Therapy Comment on above: Dizziness Start: 08-08-2023 End: 08-08-2023 ambulatory LUIS ALBERTO DOWLING [facility] Start: 08-04-2023 Telephone encounter Ji Magdaleno [facility] Comment on above: Workers comp Start: 08-03-2023 End: 08-03-[address] [facility] Facility:[facility] Start: 08-03-2023 End: 08-03-2023 Subsequent hospital visit by physician [facility] Mary (1.5t) Work Phone: Radiology Comment on above: Worsening headaches [R51.9] Start: 08-02-2023 End: 08-02-[address] [facility] Facility:[facility] Start: 08-02-2023 End: 08-02-2023 Office outpatient new 45 minutes Ji Fajardo MD Work Phone: Neurology Headache [facility] Comment on above: Worsening headaches (Primary Dx); Dizziness; Toxic effect of lead, accidental or unintentional, initial encounter Start: 08-02-2023 Telephone encounter Ji Magdaleno [facility] Start: 08-01-2023 ambulatory Digna Chavez RN [facility] Start: 08-01-2023 Patient encounter procedure Digna Chavez RN NURSE [employer]OWER DRAGLINE OPERATOR Comment on above: Referral Request Start: 06-21-2023 End: 06-21-2023 ambulatory OLLIE PITT [facility] Start: 06-20-2023 End: 06-20-2023 ambulatory INDU VOGT [facility] Start: 06-02-2023 End: 06-03-2023 ambulatory JOHN MEEKS [facility] Start: 06-01-2023 End: 06-03-2023 Emergency department patient visit MAINE FERGUSON [facility] Start: 06-01-2023 End: 06-02-2023 ambulatory IRENA GARDNER [facility] Start: 09-01-2022 End: 09-02-[address] IRENA GARDNER . Facility:[facility] Start: 08-30-2022 End: 08-31-[address] IRENA GARDNER . Facility:[facility] Start: 08-29-2022 End: 08-30-[address] IRENA GARDNER . Facility:[facility] Start: 08-11-2022 End: 08-11-2022 ambulatory BEV MILLS . Facility:[facility] Start: 05-07-2022 End: 05-08-[address] IRENA GARDNER . Facility:[facility] Start: 05-06-2022 End: 05-07-[address] IRENA GARDNER . Facility: Procedures Date Procedure Procedure Detail Performing Clinician Start: 08-03-2023 Mri brain brain stem w/o w/contrast material Ji Fajardo MD Work Phone: Start: 05-07-[address] BERTA GARDNER . Comment on above: Performed By: #### L EADA #### [facility] [place] [facility] [address] [place] [address] Dr. Rachel Cortez Plan of Treatment Date Care Activity Detail Author Start: 06-02-2026 Diabetes Screening Diabetes Screenin g [facility] Start: 06-02-2024 Adult BMI Screening Adult BMI Screen ing [facility] Start: 06-01-2024 Tobacco Screening Tobacco Screening [facility] Start: 12-24-2023 Covid-19 Vaccine ( season) Covid-19 Vaccine () [facility] Start: 12-24-2023 Influenza vaccination [facility] Start: 11-08-2023 End: 11-08-2023 Patient encounter procedure 11/08/2023 11:00 AM EDT Office Visit Neurology [address] [place] [address] Gina Dooley APRN.RESIDENT ASSISTANT [address] [place] [address] Neurology Start: 07-29-2023 Diabetes Screening Diabetes Screenin g [facility] Start: 07-29-2023 Screening for malign ant neoplasm of colon [facility] Start: 04-24-2023 Behavioral Health Screening Behavioral Health Screening [facility] Start: 12-23-2022 Covid-19 Vaccine ( season) Covid-19 Vaccine ( season) [facility] Start: 2013 Lipid panel Lipid Screening [facility] Start: 1997 DTaP,Tdap and Td Vac cines (1 - Tdap) DTaP,Tdap and Td Vaccines (1 - Tdap) [facility] Start: 1997 Hepatitis B Vaccine (1 of 3 - 19+ 3-dose series) Hepatitis B Vaccine (1 of 3 - 19+ 3-dose series) [facility] Start: 1997 Urine microalbumin profile DTaP,Tdap,Td Vaccine (1 - Tdap) [facility] Start: 1996 Anxiety Screening Anxiety Screening [facility] Start: 1996 Depression Screening Depression Scre ening [facility] Start: 1996 Hepatitis C screening Hepatitis C Sc reening [facility] Start: 1996 HIV screening HIV Screening [facility] Start: 1990 Depression Screening Depression Scre ing [facility] Payers Date Payer Category Payer Unknown [id number] 2022 Unknown [id number] 2022 Unknown [id number] 2022 [employer] are - [employer] [id number] 2020 Self-pay 1978 Unknown [id number] 593 1978 Unknown [id number] [id number]. 593 1978 Unknown [id number] [id number]. 593 1978 Unknown [id number] [id number]. 593 1978 Unknown [id number] [id number]. 593 1978 Unknown [id number] [id number]. 593 1978 Unknown [id number] [id number]. 1286 1978 Unknown [id number] [id number]. 1286 1978 Unknown [id number] [id number]. 1286 1978 Unknown [id number] [id number]. 727 1978 Unknown [id number] [id number]. 727 1978 Unknown [id number]. 727 1959 Unknown [id number] Social History Date Type Detail [facility] Start: 1980 Sex Assigned At Not on file [facility] Start: 10-03-2018 End: 08-02-2023 Gender identity Not on file [facility] Start: 06-01-2023 End: 08-02-2023 Tobacco smoking status NHIS Never smoked tobacco [facility] Start: 06-01-2023 End: 08-02-2023 Tobacco use and exposure Smokeless tobacco non-user [facility] Start: 10-03-2018 End: 08-02-2023 History of Social function [facility] National Score (1-100), lower number is lower risk 73 [facility] Start: 06-01-2023 Alcoholic beverage intake Ex-drinker (finding) [facility] Start: 11-27-2014 Sex Male (finding) [facility] Goals Date Patient Goal Desired Activity /State Personal health goal Comment on above: Formatting of this n ote might be different from the original. Evaluation of progress towards goal: awaiting test results Functional Status Date Assessment Result Facility 02-01-2024 Functional Status N/A [facility] Clinical Notes 06-20-2023 to 02-09-2024 Magda Benitez LPN - 02/09/2024 9:40 AM EDTSparas Benitez LPN - 02/08/2024 9:49 AM Jean Crump, PT - 08/10/2023 10:06 AM Jean Crump, PT - 08/10/2023 9:30 AM EDT Note Date & Type Note Facility 02-09-2024 History of Present illness Narrative LVM for Fara Kim at [facility] to notify that office is not [facility] certified and can not accept pt. Left return call back number if any questions or concerns arise. Magda BELLE [facility] documented in this encounter [facility] 02-08-2024 History of Present illness Narrative Received referral for Dr. Mart from [facility] [place]. Order placed in system and referral scanned into chart. Note written in referral, staff needs to check if Dr. Mart is [facility] certified and if so referral office needs to place a C9. Magda BELLE [facility] Hematology documented in this encounter [employer] 12-18-2023 Note ME Electrophysiology Consult Note Reason for visit: afib, chest pain , palpitations HPI: Rey Baxter is a 43 y.o. year old with past medical history of Lumbar radiculopathy, GERD, HERIBERTO, fatigue, paroxysmal A-fib,, lead toxicity. Patient was referred to our clinic for A-fib he was seen recently at [facility] and was found to be in A-fib [...] his lead toxicity Patient was referred to [facility] [place] but it seems as though no one [...] incompetence. EKG 06/01/2023 sinus rhythm with PACs 12/18/2023: Patient presents for follow up today. Overall, he is feeling better. No complaints. Chest pain has largely resolved. No shortness of breath. Continues to have some palpitations. PMH: Past Medical History: Diagnosis Date Atrial [...] facility-administered medications on file prior to visit. Cardiology ROS: 10 point ROS is performed and is negative unless otherwise specified in HPI. Physical Exam: Constitutional General Appearance: well-nourished, well-developed, [...] Sounds: normal S1, normal s2, no gallop Systolic Murmur: not heard Diastolic Murmur: not heard Extrem (more content not included)... [facility] 08-10-2023 Note HNO ID: [id number] Author: JEAN VALENCIA PT Service: ? Author [...] Planned: (4) Planned Treatment Interventions: Neuromuscular re-education (78225), Manual therapy (41404), Therapeutic activities (22107), Self-detention management (93797), Therapeutic exercise (07184), Patient/Family/Caregiver Education PLAN FOR NEXT VISIT: Patient [...] and vertical head (more content not included)... [facility] 08-10-2023 History of Present illness Narrative Program_ID:[id number] Access Code: [email or web address] URL: [email or web address] Date: 08-10-2023 Prepared By: Jean Valencia Program [...] Planned: (4) Planned Treatment Interventions: Neuromuscular re-education (87313), Manual therapy (75629), Therapeutic activities (80091), Self-detention management (96710), Therapeutic exercise (41680), Patient/Family/Caregiver Education PLAN FOR NEXT VISIT: Patient [...] head and temples) Rating of current symptoms: 610 Location: temporal region, occipital region Frequency: Intermittent [...] WITH LEVEL OF FUNCTION: Positional Testing Left Hins[place]-Hallpike: Asymptomatic Right Nylen Barany: Asymptomatic Supine Head [...] States/Identifies, Return Demonstration TREATMENT: PT Treatment Interventions: Self-Long-Term Management, Manual Therapy, Neuromuscular Re-Education Evaluation Therapeutic [...] encounter [facility] 08-08-2023 Note [place] Electrophysiology Consult Note Reason for visit: afib, chest pain , palpitations HPI: Rey Baxter is a 43 y.o. year old with past medical history of Lumbar radiculopathy, GERD, HERIBERTO, fatigue, paroxysmal A-fib,, lead toxicity. Patient was referred to our clinic for A-fib he was seen recently at [facility] and was found to be in A-fib [...] his lead toxicity Patient was referred to [facility] but it seems as though no [...] no gallop Systo (more content not included)... [facility] 08-04-2023 Miscellaneous Notes Patient records received via electronic fax. Uploaded to [facility] [employer] via [employer]. Please review in scanned documents tab of chart review. Zander Denson MA documented in this encounter [facility] 08-03-2023 Note HNO ID: [id number] Author: MATTHEW BANERJEE CT Service: ? Author [...] PATIENT PRESENTS WITH AN IMPLANTABLE OR ATTACHED WINDER TENDER: No ALLERGIES: Reviewed and unchanged CONTRAST ALLERGY: NO. EXAM: MRI - CONTRAST TYPE: GROUP II PERIPHERAL IV DATA: Ambulatory: A peripheral IV was started in the Left antecubital site with a Angio cath: 24 gauge. RADIOLOGY DEPARTMENT: MR; Exam(s) Completed: Head: Routine Brain SIGNATURE: Matthew Banerjee CT PATIENT NAME: Rey Baxter DATE: August 03, 2023 TIME: 3:06 PM [facility] 08-03-2023 History of Present illness Narrative [...] PATIENT PRESENTS WITH AN IMPLANTABLE OR ATTACHED WINDER TENDER: No ALLERGIES: Reviewed and unchanged CONTRAST ALLERGY: [...] [facility] Note HNO ID: [id number] Author: JI FAJARDO MD Service: ? 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 Lead is not being chelated at [...] access for admini (more content not included)... 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 Lead is not being chelated at [...] worsening headaches. Pt needs MRI-Brain to r/o OUTPLACEMENT CONSULTANT changes from heavy metal toxicity. Pt can [...] encounter [facility] 06-21-2023 Note [place] Electrophysiology Consult Note Reason for visit: afib, chest pain , palpitations, new pt HPI: Rey Baxter is a 42 y.o. year old with past medical history of Lumbar radiculopathy, GERD, HERIBERTO, fatigue, paroxysmal A-fib,, lead toxicity. Patient was referred to our clinic for A-fib he was seen recently at [facility] and was found to be in A-fib [...] his lead toxicity Patient was referred to [facility] [place] but it seems as though no one [...] no rhonchi C (more content not included)... [facility] 06-21-2023 Note TC to METALLURGICAL ENGINEER internal re ferral for: T56.0X1S (ICD-10-CM) - Toxic effect of lead, accidental or unintentional, sequela PT states he will call back to schedule. Clinic number provided. shamir [facility] 06-20-2023 Note This typewriter repairer was cons ulted by Dr. Vogt to assist patient with workers comp claim and resources for lead poisoning. This typewriter repairer met with patient following his visit with Dr. Vogt and provided him the [place] [employer] Workers' Compensation contact. This typewriter repairer informed patient resources on lead poisoning will be researched as this typewriter repairer does not currently have information. The patient stated Dr. Vogt provided him with poison control's contact and he plans to call them. This typewriter repairer will research additional resources. [facility] 06-20-2023 Note HEMATOLOGY ONCOLOGY CONSULT NOTE Reason for consult: Chief Complaint: History of present illness: The patient is a 42 y.o. male with PMHx of that presented with lead poisoning. Company makes plaques . Patient melts of the same and 06/01/2023 Lead,Blood,Venipuncture Order: [id number] Component Ref Range & Units 2 wk ago Lead <3.5 mcg/dL 33.8 High Comment: NOTE Patient had lead testing at [facility] and was 43 Upon evaluation, No results found for: WBC , HGB , HCT , MCV , PLT Order: [id number] Component Ref Range & Units 2 wk [...] 0.0 - 0.2 X10E9/L 0.1 Resulting Agency [facility] Specimen Collected: 06/01/23 15:10 Performed by: [employer] Last Resulted: 06/01/23 15:22 Received From: [employer] Result Received: 06/20/23 13:09 View Encounter Received Information Result Report CBC auto differential (Order #[id number]) on 06/01/23 Lab Component SmartPhrase Guide CBC auto differential (Order #[id number]) on 06/01/23 Additional PMHx includes afib passed out work and was admitted in [place] and has been on eliquis since jun 02 by cardiology Hematologic / Oncologic hx: - Family hx of malignancy/blood disorder: none - Primary Wrapper Layer/Oncologist:none - Established diagnoses: Lead poisoning will be [...] on file Intimate Partner Violence: Unknown (06/16/2023) [place] Safety & Environment Fear of Current or [...] Screening for col (more content not included)... [facility] Evaluation + Plan note Future Appointments Appointment Date:02/26/2024 02:45:00 PM Scheduled Provider: Location:[facility] Appointment Type:Surgery FT Appointment Date:03/11/2024 09:30:00 AM Scheduled Provider:Julio Mckinley MD Location:[facility] Appointment Type:[facility] Follow Up [facility] Evaluation note Diagnosis Worsening headaches- Primary Headache Dizziness Dizziness and giddiness Toxic effect of lead, accidental or unintentional, initial encounter [facility] Diagnosis Dizziness Dizziness and giddiness documented in [facility] encounter [facility]* Diagnosis Worsening headaches Headache [facility] Diagnosis Lead toxicity, accidental or unintentional, initial encounter- Primary [facility] N[facility] No data available for this section [facility] Hospital Discharge instructions No data available for this section [facility] InstructionsNot on filedocumented in this encounter [facility] filedocumented in this encounter [facility] No data available for this section [facility] Summary Purpose Family History No Family History Records FoundNo Family History Records FoundNo Family History Records FoundNo Family History Records FoundNo Family History Records Found No data available for this section Advance Directives Date Activated Date Inactivated Comments 06/01/2023 5:40 PM 06/02/2023 8:56 PM Date Activated Date Inactivated Comments 06/01/2023 5:40 PM 06/02/2023 8:56 PM Reason for Referral Specialty Diagnoses / Procedures Referred By Contac t Referred To Contact Diagnoses Worsening headaches Procedures PROVIDER ORDERED FOLLOW UP OFFICE/OUTPATIENT [facility] 60 [place] [address] [phone] Referral ID Status Reason Start Date Expiration Date Visits Requested Visits Authorized [id number] Pending Review PCP Requested Referral 11/01/2023 08/01/2024 1 1 Specialty Diagnoses / Procedures Referred By Contac t Referred To Contact [facility] Diagnoses Dizziness Procedures CONSULT TO PHYSICAL THERAPY PHYSICAL THERAPY EVALUATION HIGH COMPLEX 45 MINS Ji Fajardo MD [address] [place], [place] [phone] [facility] [address] [place] [address] Referral ID Status Reason Start Date Expiration Date Visits Requested Visits Authorized [id number] Pending Review Auto-Generat ed Referral 08/02/2023 08/01/2024 1 1 Specialty Diagnoses / Procedures Referred By Contac t Referred To Contact [facility] Diagnoses Worsening headaches Procedures MRI BRAIN WO/W IVCON MRI BRAIN BRAIN STEM W/O W/CONTRAST MATERIAL Ji Fajardo MD [address] [place], [place] [phone] [facility] [place] [address] Referral ID Status Reason Start Date Expiration Date V isits Requested Visits Authorized [id number] Closed Auto-Generate d Referral 08/02/2023 08/31/2024 1 1 Additional Source Comments (unrecognized sect ion and content) No Status Records FoundNo Status Records FoundNo Status Records FoundNo Status Records FoundNo Status Records Found INFORMATION SOURCE (unrecogn ized section and content) DATE CREATED AUTHOR 09/05/2022 [facility] DATE CREATED AUTHOR AUTHOR'S ORGANIZ ATION 06/05/2023 [facility] DATE CREATED AUTHOR AUTHOR'S ORGANIZ ATION 08/14/2023 [facility] DATE CREATED AUTHOR AUTHOR'S ORGANIZ ATION 01/28/2024 [facility] DATE CREATED AUTHOR AUTHOR'S ORGANIZ ATION 02/04/2024 [facility] Source Comments (unrecognize d section and [...] Confusion. Procedures NEW NEUR HEADACHE Ashley Foster, RESIDENT ASSISTANT [address] [place] [address] [place] [address] [place] [address] Referral ID Status Reason Start Date Expiration Date V isits Requested Visits Authorized [id number] Authorized 07/10/2023 01/10/2024 2 2 Reason Comments PT Eval Specialty Diagnoses / Procedures Referred By Contac t Referred To Contact [facility] Diagnoses Dizziness Procedures CONSULT TO PHYSICAL THERAPY PHYSICAL THERAPY EVALUATION HIGH COMPLEX [address] [place] [address] [place] [address] [facility] [address] [place] [address] Referral ID Status Reason Start Date Expiration Date Visits Requested Visits Authorized [id number] Pending Review Auto-Generat ed Referral 08/02/2023 08/01/2024 1 1 Reason Comments Radiology MRI Specialty Diagnoses / Procedures Referred By Aide lopez Referred To Contact [facility] IMAGING Diagnoses Worsening headaches Procedures MRI BRAIN WO/W IVCON MRI BRAIN BRAIN STEM W/O W/[place] [address] [place] [address] [place] [address] Referral ID Status Reason Start Date Expiration Date V isits Requested Visits Authorized [id number] Closed Auto-Generate d Referral 08/02/2023 08/31/2024 1 1 Care Teams (unrecognized sec tion and content) Activities Volunteer Relationship Specialty Start Date End Date Ollie Pitt [address] [phone] 06/26/23 Ashley Foster CNP [address] [place] [address] Referring Family Medicine 07/26/23 Activities Volunteer Relationship Specialty Start Date End Date Ollie Pitt [address] [place] [address] 06/26/23 Ashley Foster CNP [address] [place] [address] Referring Family Medicine 07/26/23 Activities Volunteer Relationship Specialty Start Date End Date Ollie Pitt [address] [place] [address] 06/26/23 Ashlye Foster CNP [address] [place] [facility] [address] Referring Family Medicine 07/26/23 Activities Volunteer Relationship Specialty Start Date End Date Ollie Pitt [address] [place] [address] 06/26/23 Ashley Foster CNP [address] [place] [facility] [address] Referring Family Medicine 07/26/23 Activities Volunteer Relationship Specialty Start Date End Date Ollie Pitt [facility] [address] 06/26/23 Ashley Foster CNP [facility] [place] [facility] [address] Referring Family Medicine 07/26/23 Activities Volunteer Relationship Specialty Start Date End Date Ollie PittMARY [address] [place] [id number] 06/26/23 Ashley Foster CNP [facility] [place] [facility] [address] Referring Family Medicine 07/26/23 Activities Volunteer Relationship Specialty Start Date End Date Irena Gardner MD PCP - General Family Medicine 06/01/23 Activities Volunteer Relationship Specialty Start Date End Date Irena Gardner MD PCP - General Family Medicine 06/01/23 FOR RECORDS PERTAINING TO PATIENTS WHO ARE [...] BE BASED ON THE PRIMARY CLINICAL RECORDS. [facility] [employer] [facility] provides no warranty or guarantee of the accuracy or completeness of information in this document.
--- NOTE | 2024-02-27 10:35 | RT_ITS ---
The [facility] Test Date: 2024-02-27 Pat Name: YAMILET WHITAKER Department: Room: - Gender: Male Personal Injury Law Specialist: Milton Willard RRT : 1980 Requested By: [id number] Order Number: [id number] Reading MD: Arden Kaur Interpretive Statements Pulmonary function testing was completed according to ATS criteria. Findings were considered accurate and reproducible. No bronchodilator was administered due to normal spirometric values. Spirometry: -FEV1/FVC: Normal @ 79% -FEV1: Normal @ 107% -FVC: Normal @ 106% Lung volumes by plethysmography: -RV: Increased @ 131% -TLC: Normal @ 114% Diffusion capacity: -DLCO: Normal @ 84 when corrected for Hb 13.9g/dL Impressions: -Normal spirometry, total lung capacity, and diffusion capacity - technically normal study. If asthma remains in the differential, may consider methacholine challenge testing. Clinical correlation required. Electronically Signed On 02-27-2024 12:59:55 EST by Arden Kaur
== END 2024-02-27 09:11 | disposition home or self-care (01) ==
LOC: CARD 09:11
PROVIDERS: PCP Family Medicine; Visit Provider Nurse Practitioner Family
DX: R06.00 Dyspnea, unspecified (principal)
CPT/HCPCS: 36415; 85018; 94010; 94726; 94729

== ENCOUNTER 2024-03-20 15:04 | Outpatient (OUT) | payer SELFPAY ==
--- NOTE | 2024-03-20 15:08 | US_ITS ---
The [address] [address] Patient Name: YAMILET WHITAKER MRN: [id number] date: 1980 Sex: M Assigned Patient Location: CT Current Patient Location: Accession/Order Number: [id number] Exam Date: 03/20/2024 15:30 Report Date: 03/21/2024 06:34 At the request of: IRENA JEFFERY Procedure: US soft tissue head and neck EXAMINATION: US soft tissue head and neck HISTORY: Head Mass ; 3 palpable lumps along left side of neck COMPARISON: No relevant comparison available. FINDINGS: Corresponding to patient's palpable lumps are 3 benign-appearing lymph nodes, largest is 1.0 x 0.8 x 0.5 cm. US/US soft tissue head and neck IMPRESSION: 1. Benign-appearing lymph nodes corresponding to patient's palpable lumps. No additional follow-up recommended at this time. Electronically authenticated by: MARINA MAIN Date: 03/21/2024 06:34
--- NOTE | 2024-03-20 15:08 | CT_ITS ---
The [address] [address] Patient Name: YAMILET WHITAKER MRN: [id number] date: 1980 Sex: M Assigned Patient Location: CT Current Patient Location: CT Accession/Order Number: [id number] Exam Date: 03/20/2024 15:11 Report Date: 03/21/2024 07:34 At the request of: IRENA JEFFERY Procedure: CT head/brain wo con EXAMINATION: CT head/brain wo con HISTORY: Head Mass ; pain and lump posterior head for several weeks; no known injury COMPARISON: No relevant comparison available. TECHNIQUE: Axial CT images were obtained without IV contrast. Dose reduction techniques were achieved by using automated exposure control and/or adjustment of mA and/or kV according to patient size and/or use of iterative reconstruction technique. FINDINGS: BRAIN: No edema, hemorrhage, mass, acute infarction, or inappropriate atrophy. CSF SPACES: No hydrocephalus, subarachnoid hemorrhage, or mass. Appropriate for age. SKULL: No fracture, mass, or other significant visible lesion. SINUSES: No significant mucosal thickening or fluid on the limited views. ORBITS: No appreciable abnormality on the limited views. OTHER: Negative CT/CT head/brain wo con IMPRESSION: 1. Normal CT appearance of the brain. 2. No appreciable abnormality calvarium. 3. No appreciable abnormality of the posterior scalp. Electronically authenticated by: MARINA MAIN Date: 03/21/2024 07:34
--- OUTSIDE RECORDS SUMMARY | 2024-03-20 15:11 | XMS_ITS | CCD ---
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 Name Role Phone LATIA ., DR [...] ., DR OSBORN Primary Care Unavailable OMARYIRENA Primary Care Unavailable JUSTEN HAQUE Attending Unavailable SHADY BRYANT Admitting Unavailable CARDIOLOGY, [facility] Consulting Unavailable MAINE BURGOS Attending Unavailable MAINE BURGOS Referring Unavailable OMARY, IRENA M Primary Care Unavailable JOHN MEEKS Attending Unavailable JOHN MEEKS Referring Unavailable IRENA JEFFERY M Primary Care Unavailable Ollie Pitt Unavailable Ashley Foster CNP Unavailable JI FAJARDO Referring Unavailable SCOTTY, JI Referring Unavailable SCOTTY, JI Attending Unavailable Ollie Pitt NP Unavailable JAMAR STOCK Attending Unavailable OLLIE PITT Attending Unavailable BERNARDO HAYNES Attending Unavailable INDU VOGT Attending Unavailable Irena Jeffery Primary Care Physician [phone] Irena Jeffery MD Primary Care Provider Julio Mckinley Attending Unavaila ble SarminiJulio Talal Attending Unavaila ble Sarmini, Kim Talal Referring Unavaila ble Sarmini, Kim Talal Admitting Unavaila ble Sarmini, Kim Talal Attending Unavaila ble Medications Current Medications Medication Drug Class(es) Dates Sig (Normalized) Sig (Original) azithromycin 250 mg oral tablet (3 sources) Macrolide Antimicrobial Start: 02-01-2024 azithromycin 250 mg Tab 6 EA, 0 Refill(s), TAKE 2 TABLETS by mouth today, THEN take 1 TABLET once a day FOR the next 4 DAYS., Refills(s) 0 Start Date: 02/01/24 Status: Ordered brompheniramine maleate 0.4 mg/ml / dextromethorphan hydrobromide 2 mg/ml / pseudoephedrine hydrochloride 6 mg/ml oral solution (3 sources) alpha-Adrenergic Agonist, Uncompetitive C-rdavyu-W-aspartate Receptor Antagonist, Sigma-1 Agonist Start: 05-26-2018 take 5 mL by mouth four times daily Bromfed DM oral syrup 5 mL, Oral, QID for cold symptoms, 200 mL, Refill(s) 0 Start Date: 05/26/18 Status: Ordered dicyclomine hydrochloride 10 mg oral capsule (3 sources) Anticholinergic Start: 02-01-2024 End: 03-28-2024 take 1 capsule by mouth four times daily as needed for pain Bentyl 10 mg Cap 10 mg = 1 cap(s), Oral, QID, PRN Pain, X 14 day(s), # 60 cap(s), Refills(s) 3, Pharmacy: [id number], 178, cm, 02/01/24 14:47:00 EDT, Height/Length Dosing, 72, kg, 02/01/24 14:47:00 EDT, Weight Dosing Start Date: 02/01/24 Stop Date: 03/28/24 Status: Ordered pantoprazole 40 mg delayed release oral tablet (3 sources) Proton Pump Inhibitor Start: 02-01-[address] Tab 30 EA, 0 Refill(s), TAKE 1 TABLET BY MOUTH EVERY EVENING, Refills(s) 0, Control of stomach acid Start Date: 02/01/24 Status: Ordered rizatriptan 10 mg oral tablet (5 sources) [...] Sig (Original) apixaban 5 mg oral tablet (8 sources) Factor Xa Inhibitor Start: 02-01-2024 Eliquis 5 mg oral tablet 60 EA, 0 Refill(s), TAKE 1 TABLET BY MOUTH TWICE DAILY FOR 30 DAYS, Refills(s) 0, Blood Thinner Start Date: 02/01/24 Status: Ordered Start: 07-10-2023 take 1 tablet by live th every twelve hours ELIQUIS 5 mg tab(s) Take 1 tablet by mouth every 12 hours. 07/10/2023 Active Comment on above: Take 1 tablet by live th every 12 hours. aspirin 81 mg delayed release oral tablet (11 sources) Platelet Aggregation Inhibitor, Nonsteroidal Anti-inflammatory Drug Start: 06-01-2023 Comment on above: Take 81 mg by mouth. citalopram 10 mg oral tablet (11 sources) Serotonin Reuptake Inhibitor Start: 02-01-2024 Comment on above: Take 10 mg by mouth. 24 hr desvenlafaxine succinate 50 mg extended release oral tablet (6 sources) Serotonin and Norepinephrine Reuptake Inhibitor Start: 02-01-2024 desvenlafaxine 50 mg Tab- 30 EA, 0 Refill(s), TAKE 1 TABLET BY MOUTH DAILY, Refills(s) 0 Start Date: 02/01/24 Status: Ordered Start: 12-11-2023 Pristiq 50 mg Tab-ER 0 Refill(s), 1 (one) time each day at the same time., Refills(s) 0 Start Date: 12/11/23 Status: Ordered diclofenac sodium 75 mg delayed release oral tablet (3 sources) Nonsteroidal Anti-inflammatory Drug Start: 02-01-2024 diclofenac sodium 75 mg Oral EC Tab 60 EA, 0 Refill(s), TAKE 1 TABLET BY MOUTH TWICE DAILY, Refills(s) 0 Start Date: 02/01/24 Status: Ordered hydrOXYzine hydrochloride 25 mg oral tablet (8 sources) Antihistamine Start: 02-01-2024 hydrOXYzine hydrochloride 25 [...] guidelines link lactulose 667 mg/ml oral solution (3 sources) Osmotic Laxative Start: lactulose 10 g/15 mL Oral Syrup 1800 mL, 0 Refill(s), TAKE 30 ML BY MOUTH TWICE DAILY NEEDED, Refills(s) 0 Start Date: 02/01/24 Status: Ordered 24 hr metoprolol succinate 25 mg extended release oral tablet (6 sources) beta-Adrenergic Veronica Start: take 1 tablet by mouth in the morning nortriptyline 10 mg oral capsule (8 sources) Tricyclic Antidepressant Start: nortriptyline 10 mg Cap 30 EA, 0 Refill(s), TAKE 1 CAPSULE BY MOUTH AT BEDTIME, Refills(s) 0 Start Date: 02/01/24 Status: Ordered Start: 08-02-2023 take 1 capsule by mo [facility] once daily at bedtime nortriptyline (PAMELOR) 10 mg capsule Indications: Dizziness Take 1 capsule by mouth daily at bedtime. 90 capsule 1 08/02/2023 Active Comment on above: Take 1 capsule by mo ut daily at bedtime. propafenone hydrochloride 225 mg oral tablet (3 sources) Antiarrhythmic Start: 02-01-2024 propafenone 225 mg Tab 60 EA, 0 Refill(s), TAKE 1 TABLET BY MOUTH TWICE DAILY (IN THE MORNING and AT BEDTIME), Refills(s) 0 Start Date: 02/01/24 Status: Ordered sucralfate 1000 mg oral tablet (3 sources) Aluminum Complex Start: 02-01-2024 sucralfate 1 g Tab 40 EA, 0 Refill(s), TAKE 1 TABLET BY MOUTH FOUR TIMES DAILY ON AN EMPTY STOMACH, Refills(s) 0 Start Date: 02/01/24 Status: Ordered tiZANidine 4 mg oral tablet (3 sources) Central alpha-2 Adrenergic Agonist Start: 02-01-2024 tiZANidine 4 mg Tab 30 EA, 0 Refill(s), TAKE 1 TABLET BY MOUTH AT BEDTIME DAILY NEEDED, Refills(s) 0 Start Date: 02/01/24 Status: Ordered Problems Active Problems Problem Classification Problem Date Documented Date Episodic/Chronic Abdominal pain (8 sources) Left upper quadrant pain; Translations: [Left upper quadrant pain] Onset: 02-01-2024 Episodic Cardiac dysrhythmias (17 sources) Unspecified atrial fibrillation; Translations: [Other specified cardiac arrhythmias] Onset: 06-01-2023 Chronic Conditions associated with dizziness or vertigo (3 sources) Dizziness; Translations: [Dizziness and giddiness] Onset: 08-10-2023 08-02-2023 Episodic Conduction disorders (3 sources) Ventricular bigeminy Onset: 06-01-2023 02-01-2024 Chronic Congestive [...] PERS INIT] Onset: 08-15-2022 Episodic Esophageal disorders (6 sources) Gastroesophageal reflux disease without esophagitis; Translations: [Gastro-esophageal reflux disease without esophagitis] Onset: 02-01-2024 Chronic Gastritis and duodenitis (3 sources) Gastritis 02-01-2024 Episodic Genitourinary symptoms and ill-defined conditions (4 sources) Unspecified urinary incontinence; Translations: [Urinary incontinence] Onset: 05-13-2022 02-01-2024 Chronic Headache; including migraine (2 sources) Headache; Translations: [Worsening headaches] 08-02-2023 Episodic Headache; including migraine (4 sources) Headache; including migraine; Translations: [HEADACHE UNSPECIFIED] Onset: 08-11-2022 Hypertension with complications and secondary hypertension (1 source) Hypertensive heart disease with heart failure; Translations: [HTN HEART DISEASE W/HEART FAIL] Onset: 09-01-2022 Chronic Intestinal obstruction without hernia (5 sources) Intussusception of intestine; Translations: [Intussusception] Onset: 02-01-2024 Episodic Lymphadenitis (3 sources) Inguinal lymphadenopathy 02-01-2024 Episodic Noninfectious gastroenteritis (3 sources) Gastroenteritis 02-01-2024 Episodic Osteoarthritis (3 sources) Osteoarthritis of knee 02-01-2024 Chronic Other and unspecified benign neoplasm (2 sources) Polyp of colon; Translations: [Polyp of colon] Onset: 03-11-2024 Episodic Other screening for suspected conditions (not mental disorders or infectious disease) (8 sources) Encounter for screening for malignant neoplasm of prostate; Translations: [Encounter for screening for malignant neoplasm of colon] Onset: 05-13-2022 Episodic Other upper respiratory infections (1 source) Chronic sinusitis, unspecified; Translations: [CHRONIC SINUSITIS UNSPECIFIED] Onset: 08-15-2022 Chronic Pleurisy; pneumothorax; pulmonary collapse (3 sources) Pleurisy 02-01-2024 Episodic Poisoning by nonmedicinal substances (6 sources) 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, accidental (unintentional), initial encounter; Translations: [Toxic effect of unspecified lead compound] Onset: 06-21-2023 08-04-2023 Chronic Residual codes; unclassified (3 sources) Obstructive sleep apnea syndrome 02-01-2024 Chronic Spondylosis; intervertebral disc disorders; other back problems (7 sources) Radiculopathy, lumbar region; Translations: [Lumbar radiculopathy] [...] Translations: [Other supraventricular tachycardia] Onset: 08-08-2023 Unclassified (3 sources) Patient encounter status 02-01-2024 Unclassified (2 sources) Lead toxicity, accidental or unintentional, initial encounter 02-08-2024 Urinary tract infections (3 sources) Acute cystitis 02-01-2024 Episodic Past or Other [...] Test Name Value Interpretation Reference Range Facility Surgical Pathology Reporton 03-01-2024 Surgical Pathology Report [address] [address]- Surgical Pathology Report Collected Date/Time: 02/26/2024 15:55 EST Pathologist: Diego ROTH PhD, Rachel Elmore Received Date/Time: 02/27/2024 07:27 HEMALATHA Mckinley MD, Julio Mckinley MD, Julio Pond 07 Surgical Pathology Report - 03/01/2024 14:15 EST - Auth (Verified) Final Diagnosis A: DUODENUM, BIOPSY: - DUODENAL MUCOSA WITHIN NORMAL LIMITS. B: STOMACH, BIOPSY: - ANTRAL MUCOSA WITH MODERATE CHRONIC ACTIVE H. PYLORI GASTRITIS. - NO INTESTINAL METAPLASIA. - H. PYLORI MICROORGANISMS IDENTIFIED WITH IMMUNOSTAIN. C: POLYP, RECTUM, POLYPECTOMY: - TUBULAR ADENOMA. (Electronic Signature) Rachel Cortez MD PhD 03/01/2024 14:15 Clinical Information Gerd, left upper quadrant pain, colon cancer screening Pre-Op Diagnosis: Gerd, left upper quadrant pain, colon cancer screening Procedure: EGD, colonoscopy Post-Op Diagnosis: 1. Esophageal landmarks identified, irregular Z-line, suspect medium to large sized hiatal hernia 2. Minimal patchy erythema in the stomach, random biopsies were taken to rule out H. pylori 3. Normal examined duodenum, and biopsies were taken to rule out celiac disease 4. Small internal hemorrhoids seen retroflexion 5. 5 mm sessile polyp in the rectum, resected with cold snare completely and retrieved. Otherwise normal colonic mucosa 6. Normal examined terminal ileum Specimen(s) Received A.Duodenal biopsy B.Gastric biopsy C.Rectal polyp Gross Description A: Received in formalin labeled with patient name, number, and duodenal biopsy are three fragments of topete/pink tissue ranging from less than 0.1 cm up to 0.1 cm. Specimen is entirely submitted in one cassette. B: Received in formalin labeled with patient name, number, and gastric biopsy are two fragments of topete tissue measuring 0.2 and 0.4 cm. Specimen is entirely submitted in one cassette. C: Received in formalin labeled with patient name, number, and rectal polyp are multiple fragments of topete/pink tissue ranging from less than 0.1 cm up to 0.3 cm measuring in aggregate 1 x 0.8 x 0.1 cm. Specimen is entirely submitted in one cassette. (DC) DC:[facility] Microscopic Description Microscopic examination performed unless gross only specified. Surgical Pathology Report Collected Date/Time: 02/26/2024 15:55 EST Pathologist: Diego ROTH PhD, Rachel Elmore Received Date/Time: 02/27/2024 07:27 EST Elías ROTH, Julio Mckinley MD, Julio Pond Microscopic Description The use of one or more reagents in the above tests is regulated as an analyte specific reagent (ASR). The test or tests are ordered following initial H&E microscopic examination. The performance characteristics were determined by the Laboratory of [facility]. They have not been cleared or approved by the US Food and Drug Administration. The FDA has determined that such clearance or approval is not necessary. These tests are used for clinical purposes. They should not be regarded as investigational or for research. Appropriate positive and negative controls are performed and are acceptable. Normal [facility] Comment on above: Performed By: #### [id number] #### [facility] [address] [place] [address] Main OR Intraoperative Recor don 02-27-2024 Main OR Intraoperative Record Main OR Intraoperative Record IntraOp Document Type FT Summary Primary Physician: Julio Mckinley MD Finalized Date/Time: 02/27/24 14:33:06 Pt. Name: REY BAXTER/Sex: 1980 Male Med Rec #: [id number] Physician: Julio Mckinley MD Financial #: [id number] Pt. Type: O Room/Bed: / Admit/Disch: 02/26/24 13:41:31 - 02/26/24 23:59:59 Institution: Case Times FT Entry 1 Patient Times In Room 02/26/24 15:47:00 Out Room 02/26/24 16:15:00 Procedure Times Start 02/26/24 15:51:00 Stop 02/26/24 16:12:00 Anesthesia Times Start 02/26/24 15:47:00 Stop 02/26/24 16:15:00 Time at [facility] 02/26/24 16:02:00 Last Modified By: Janes Lance RN 02/26/24 16:15:11 General Comments: 1554 EGD completed MSRN 1557 Colonoscopy started MSRN 02/27/24 Chart opened for charge review per Jameson Garcia RN. 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 Garcia supervising help in room case Last Modified By: Janes Lance RN, RN, Janes Lance RN, Janes Watkins 02/26/24 16:15:13 02/26/24 16:15:13 02/26/24 16:15:13 Entry 4 Entry 5 Case Attendee Mi SALAZAR, Delisa Mckinley MD, Julio Pond Role Performed Scrub - Primary Surgeon - Primary Time In 02/26/24 15:47:00 02/26/24 15:47:00 Time Out 02/26/24 16:15:00 02/26/24 16:15:00 Procedure EGD AND COLONOSCOPY(.) EGD AND COLONOSCOPY(.) Comments Last Modified By: Janes Lance RN, RN, Morgan E 02/26/24 16:15:13 02/26/24 16:15:13 Perioperative Protocols FT Pre-Care Text: Implements protective measures prior to operative or invasive procedure, confirms identity before the operative or invasive procedure, verifies operative procedure, surgical site, and laterality Entry 1 Procedure(s) EGD AND COLONOSCOPY(.) Patient Identity Birthday, ID Band Verified (select at Check, Patient least 2): Participation Consents / H and P Anesthesia Consent, Operative Site N/A Verified H&P, Surgery/Procedure Marking Verified Consent Surgical Site No Laterality Verified n/a Verified Procedure Verified Yes Correct Patient Yes Position Verified Availability Equipment, Medication Prep Dry n/a Verified (If Applicable) PreOp Antibiotic No Time Out Braxton Sandoval CRNA, Given Participants Janes Lance RN, Mi SALAZAR, Elías Villegas MD, Julio Pond Time Out Complete 02/26/24 15:49:00 Outcomes Met? Yes Last Modified By: Janes Lance RN 02/26/24 15:51:27 Post-Care Text: The patient is free from signs and symptoms of injury caused by extraneous objects Allergy Information FT Pre-Care Text: Verifies allergies Entry 1 Allergies Reviewed? Yes Allergies Reviewed Self/Patient With Outcomes Met? Yes Last Modified By: Janes Lance RN 02/26/24 15:51:38 Post-Care Text: The patient received appropriate medication(s) safely administered during the perioperative period Surgical Procedures FT Entry 1 Procedure Description Procedure EGD AND COLONOSCOPY Modifiers . Surgeon Description EGD with gastric biopsy and duodenal biopsy. Colonoscopy with rectal polypectomy Primary Procedure Yes Primary Surgeon Julio Mckinley MD Start 02/26/24 15:51:00 Stop 02/26/24 16:12:00 Anesthesia Type General Surgical Service Gastroenterology Wound Class 2 - Clean-Contaminated Last Modified By: Janes Lance RN 02/26/24 16:15:18 General Case Data FT Pre-Care Text: Classifies surgical wound, implements aseptic technique, initiates traffic control Entry 1 Case Information OR ENDO 1 FT Case Level Level 2 Wound Class 2 - Clean-Contaminated Specialty Gastroenterology ASA Class 2 Preop Diagnosis GERD, Left upper Postop Same As Preop No quadrant pain, Colon cancer screening Postop Diagnosis EGD- Minimal gastritis, Outcomes Met? Yes Hiatal hernia. Colonoscopy- Rectal polyp, Internal hemorrhoids Last Modified By: Janes Lance RN 02/26/24 16:15:41 Post-Care Text: The patient is free from signs and symptoms of infection Skin Assessment (Pre Procedure) FT Pre-Care Text: Implements protective measures to prevent skin/ tissue injury due to thermal or mechanical sources Evaluates for signs and symptoms of physical injury to skin and tissue Entry 1 Skin Integrity Dry, Warm Skin Abnormality No Outcomes Met? Yes Last Modified By: Janes Lance RN 02/26/24 15:53:00 Post-Care Text: The patient is free from signs and symptoms of injury caused by extraneous objects Patient Positioning FT Pre-Care Text: Identifies physical alterations that require additional precautions for (more content not included)... Normal [facility] Discharge Instructionson Discharge Instructions Discharge Instructions REY BAXTER :1980 Visit Date:02/26/2024 Inpatient Discharge Instructions Your Care Team Admitting Physician - Julio Mckinley MD Referring Physician - Julio Mckinley MD Talal Reason for Your Visit INTUSSUSCEPION OF SMALL BOWEL, SCREEN FOR COLON CANCER, AND GERD Your Diagnosis Chronic GERD Colon cancer screening Tests Performed Pathology Tissue Exam -- Results Pending -- Please visit your patient portal for your results or contact your primary care physician. This Is Your Medications List apixaban (Eliquis 5 mg oral tablet) aspirin (aspirin 81 mg Oral EC Tab) azithromycin (azithromycin 250 mg Tab) brompheniramine/dextromethor olson/PSE (Bromfed DM oral syrup) citalopram (citalopram 10 mg Tab) desvenlafaxine (Pristiq 50 mg Tab-ER) desvenlafaxine (desvenlafaxine 50 mg Tab-) diclofenac (diclofenac sodium 75 mg Oral EC Tab) dicyclomine (Bentyl 10 mg Cap) hydrOXYzine (hydrOXYzine hydrochloride 25 mg Tab) lactulose (lactulose 10 g/15 mL Oral Syrup) metoprolol (metoprolol succinate 25 mg ER Tab) nortriptyline (nortriptyline 10 mg Cap) pantoprazole (Pantoprazole [address] Tab) propafenone (propafenone 225 mg Tab) sucralfate (sucralfate 1 g Tab) tizanidine (tiZANidine 4 mg Tab) Procedure History Colonoscopy (02/26/2024), Esophagogastroduodenoscopy (02/26/2024). What to do next Instructions From Your Doctor Event Name Event Result Discharge Activity Resume normal activities in 24 hours Discharge Restrictions No driving for 24 hrs Discharge Diet(s) Regular Call Your Doctor For Persistent or heavy bleeding Discharge Instructions Discharge Instructions Previously Scheduled Follow-Up Appointments Monday 9:30 AM EST With: Julio Mckinley MD Where: [facility] [address] [place] [address]- Medications What How Much When Instructions Next Dose Unchanged apixaban (Eliquis 5 mg oral tablet) 60 EA, 0 Refill(s), TAKE 1 TABLET BY MOUTH TWICE DAILY FOR 30 DAYS Unchanged aspirin (aspirin 81 mg Oral EC Tab) 81 Unknown, oral, 0 Refill(s), Take 81 mg by mouth in the morning. Unchanged azithromycin (azithromycin 250 mg Tab) 6 EA, 0 Refill(s), TAKE 2 TABLETS by mouth today, THEN take 1 TABLET once a day FOR the next 4 DAYS. Unchanged brompheniramine/ dextromethorphan/ PSE (Bromfed DM oral syrup) 5 Milliliter By Mouth 4 times a day as needed for for cold symptoms Unchanged citalopram (citalopram 10 mg Tab) 10 Unknown, ORAL, 0 Refill(s), Take 10 mg by mouth. Unchanged desvenlafaxine (desvenlafaxine 50 mg Tab-) 30 EA, 0 Refill(s), TAKE 1 TABLET BY MOUTH DAILY Unchanged desvenlafaxine (Pristiq 50 mg Tab-ER) 0 Refill(s), 1 (one) time each day at the same time. Unchanged diclofenac (diclofenac sodium 75 mg Oral EC Tab) 60 EA, 0 Refill(s), TAKE 1 TABLET BY MOUTH TWICE DAILY Unchanged dicyclomine (Bentyl 10 mg Cap) 1 Capsules By Mouth 4 times a day as needed for Pain Duration: 14 Days Unchanged hydrOXYzine (hydrOXYzine hydrochloride 25 mg Tab) 14 EA, 0 Refill(s), TAKE 1 TABLET BY MOUTH EVERY 8 HOURS NEEDED FOR ANXIETY Unchanged lactulose (lactulose 10 g/ 15 mL Oral Syrup) 1800 mL, 0 Refill(s), TAKE 30 ML BY MOUTH TWICE DAILY NEEDED Unchanged metoprolol (metoprolol succinate 25 mg ER Tab) 25 Unknown, oral, 1 Refill(s), Take 1 tablet (25 mg total) by mouth in the morning. Unchanged nortriptyline (nortriptyline 10 mg Cap) 30 EA, 0 Refill(s), TAKE 1 CAPSULE BY MOUTH AT BEDTIME Unchanged pantoprazole (Pantoprazole [address] Tab) 30 EA, 0 Refill(s), TAKE 1 TABLET BY MOUTH EVERY EVENING Unchanged propafenone (propafenone 225 mg Tab) 60 EA, 0 Refill(s), TAKE 1 TABLET BY MOUTH TWICE DAILY (IN THE MORNING and AT BEDTIME) Unchanged sucralfate (sucralfate 1 g Tab) 40 EA, 0 Refill(s), TAKE 1 TABLET BY MOUTH FOUR TIMES DAILY ON AN EMPTY STOMACH Unchanged tizanidine (tiZANidine 4 mg Tab) 30 EA, 0 Refill(s), TAKE 1 TABLET BY MOUTH AT BEDTIME DAILY NEEDED Test Results No qualifying data available. Allergies No Known Allergies Problems Ongoing - Any problem that you are currently receiving treatment for. Acute cystitis Atrial fibrillation Blood lead level above reference range Gastritis Gastroenteritis Gastroesophageal reflux disease Inguinal lymphadenopathy Intussusception of small bowel Left lower quadrant pain Lumbar radiculopathy Obstructive sleep apnea syndrome Osteoarthritis of knee Paroxysmal atrial fibrillation Pleurisy Right upper quadrant pain Screen for colon cancer Urinary incontinence Ventricular bigeminy Education Materials Hiatal Hernia A hiatal hernia occurs when part of the stomach slides above the muscle that separates the abdomen from the chest (diaphragm). A person can be born with a hiatal hernia (congenital), or it may develop over time. In (more content not included)... Normal [facility] Comment on above: Result Comment: Elec tronically Signed By: Ayla Gage I\.br\Date and Time Signed: 02/26/24 16:20 EST Inpatient Patient Summaryon 02-26-2024 Inpatient Patient Summary Inpatient Patient Summary [place] [address] [facility] Clinical Discharge Instructions PERSON INFORMATION Name: REY BAXTER [facility]#:[id number] PHYSICIANS Admitting Physician: Julio Mckinley MD Attending Physician: Julio Mckinley MD PCP: Irena Jeffery MD Diagnosis: Chronic GERD; Colon cancer screening Comment: PATIENT EDUCATION INFORMATION Instructions: Medication Leaflets: Follow up: Type Location Start [facility] Follow Up [facility] 03/11/2024 9:30 AM 03/11/2024 9:45 AM Confirmed MEDICATION LIST Medications to Continue with No Changes Other Medications apixaban (Eliquis 5 mg oral tablet) 60 EA, 0 Refill(s), TAKE 1 TABLET BY MOUTH TWICE DAILY FOR 30 DAYS., Responsible Provider: Irena Jeffery MD aspirin (aspirin 81 mg Oral EC Tab) 81 Unknown, oral, 0 Refill(s), Take 81 mg by mouth in the morning.. azithromycin (azithromycin 250 mg Tab) 6 EA, 0 Refill(s), TAKE 2 TABLETS by mouth today, THEN take 1 TABLET once a day FOR the next 4 DAYS.., Responsible Provider: Juliane Ba brompheniramine/dextromethor olson/PSE (Bromfed DM oral syrup) 5 Milliliter By Mouth 4 times a day as needed for cold symptoms. Refills: 0. citalopram (citalopram 10 mg Tab) 10 Unknown, ORAL, 0 Refill(s), Take 10 mg by mouth.. desvenlafaxine (desvenlafaxine 50 mg Tab-) 30 EA, 0 Refill(s), TAKE 1 TABLET BY MOUTH DAILY., Responsible Provider: Irena Jeffery MD desvenlafaxine (Pristiq 50 mg Tab-ER) 0 Refill(s), 1 (one) time each day at the same time.. diclofenac (diclofenac sodium 75 mg Oral EC Tab) 60 EA, 0 Refill(s), TAKE 1 TABLET BY MOUTH TWICE DAILY., Responsible Provider: Irena Jeffery MD dicyclomine (Bentyl 10 mg Cap) 1 Capsules By Mouth 4 times a day as needed Pain for 14 Days. Refills: 3. hydrOXYzine (hydrOXYzine hydrochloride 25 mg Tab) 14 EA, 0 Refill(s), TAKE 1 TABLET BY MOUTH EVERY 8 HOURS NEEDED FOR ANXIETY., Responsible Provider: Gene Galarza lactulose (lactulose 10 g/15 mL Oral Syrup) 1800 mL, 0 Refill(s), TAKE 30 ML BY MOUTH TWICE DAILY NEEDED., Responsible Provider: Irena Jeffery MD metoprolol (metoprolol succinate 25 mg ER Tab) 25 Unknown, oral, 1 Refill(s), Take 1 tablet (25 mg total) by mouth in the morning.. nortriptyline (nortriptyline 10 mg Cap) 30 EA, 0 Refill(s), TAKE 1 CAPSULE BY MOUTH AT BEDTIME., Responsible Provider: Ji Fajardo pantoprazole (Pantoprazole [address] Tab) 30 EA, 0 Refill(s), TAKE 1 TABLET BY MOUTH EVERY EVENING., Responsible Provider: Irena Jeffery MD propafenone (propafenone 225 mg Tab) 60 EA, 0 Refill(s), TAKE 1 TABLET BY MOUTH TWICE DAILY (IN THE MORNING and AT BEDTIME)., Responsible Provider: Jamar Stock sucralfate (sucralfate 1 g Tab) 40 EA, 0 Refill(s), TAKE 1 TABLET BY MOUTH FOUR TIMES DAILY ON AN EMPTY STOMACH., Responsible Provider: Irena Jeffery MD tizanidine (tiZANidine 4 mg Tab) 30 EA, 0 Refill(s), TAKE 1 TABLET BY MOUTH AT BEDTIME DAILY NEEDED., Responsible Provider: Irena Jeffery MD Comment: Cherelle [facility] Main OR PACU II Recordon Main OR PACU II Record Main OR PACU II Record PACU Phase II Document Type FT Summary Primary Physician: Julio Mckinley MD Finalized Date/Time: 02/26/24 16:44:59 Pt. Name: VEEREY/Sex: 1980 Male Med Rec #: [id number] Physician: Julio Mckinley MD Financial #: [id number] Pt. Type: O Room/Bed: / Admit/Disch: 02/26/24 13:41:31 - Institution: Case Times PACU II FT Pre-Care Text: Identifies barriers to communication and implements measures to provide psychological support and determines knowledge level Develops individualized plan of care, and ensures continuity of care Maintains patient's dignity and privacy, and maintains patient confidentiality Identifies and reports philosophical, cultural, and spiritual beliefs and values Identifies individual values and wishes concerning care administers prescribed antibiotic therapy and immunizing agents as ordered, Evaluates postoperative tissue perfusion Implements thermoregulation measures, and monitors body temperature Evaluates postoperative respiratory status Evaluates postoperative cardiac status Evaluates postoperative neurological status Assesses pain control, collaborated in initiating patient-controlled analgesia and implements alternative methods of pain control Verifies allergies, administers prescribed medications and solutions, evaluates response to medications Entry 1 In PACU II 02/26/24 16:16:00 Discharge from PACU 02/26/24 16:36:00 II Outcomes Met? Yes Last Modified By: Ayla Gage I 02/26/24 16:44:56 Post-Care Text: The patient demonstrates knowledge of the expected response to the operative or invasive procedure The patient's care is consistent with the individualized perioperative plan of care The patient's right to privacy is maintained The patient's value system, lifestyle, ethnicity, and culture are considered, respected, and incorporated into the perioperative plan of care The patient participates in decisions affecting his or her perioperative plan of care. The patient is free from signs and symptoms of infection The patient has wound/tissue perfusion consistent with or improved from baseline levels established preoperatively The patient is at or returning to normothermia at the conclusion of the immediate postoperative period The patient's respiratory function is consistent with or improved from baseline levels established preoperatively The patient's cardiovascular status is consistent with or improved from baseline levels established preoperatively The patient's neurological status is consistent with or improved from baseline levels established preoperatively The patient demonstrates and/or reports adequate pain control throughout the perioperative period The patient received appropriate medication(s), safely administered during the perioperative period Finalized By: Ayla Gage I Document Signatures Signed By: Ayla Gage I 02/26/24 16:44 Normal [facility] Main OR Preoperative Recordo n 02-26-2024 Main OR Preoperative Record Main OR Preoperative Record Holding Area Document Type FT Summary Primary Physician: Julio Mckinley MD Finalized Date/Time: 02/26/24 14:02:22 Pt. Name: VEEREY/Sex: 1980 Male Med Rec #: [id number] Physician: Julio Mckinley MD Financial #: [id number] Pt. Type: O Room/Bed: / Admit/Disch: 02/26/24 13:41:31 - Institution: Case Times Holding FT Pre-Care Text: Verifies consent for planned procedure, identifies individual values and wishes concerning care, includes family members in perioperative teaching Secures patient's records' belongings, and valuables, maintains patient's dignity and privacy, and maintains patient confidentiality Entry 1 In Holding 02/26/24 13:49:00 Outcomes Met? Yes Last Modified By: Johana GONZALES, Guerline Portillo 02/26/24 14:01:30 Post-Care Text: The patient participates in decisions affecting his or her perioperative plan of care The patient's right to privacy is maintained Surgery Checklist FT Entry 1 Patient Birthday, ID Band Procedure History and Physical, Identification: Check, Patient Verification: Surgical Consent, With Participation Patient NPO after Midnight: Yes Date/Time: 02/26/24 08:45:00 Personal Items clothes, shoes Limitations: n/a Comment: Complaints of Pain: No Pain Comment: denies Operative Site n/a Marked By: n/a Marking: Availability Equipment Verified: Does Patient Smoke No Patient states Yes Comment - Adult girlfriend- Alejandra postop adult Supervision supervision available Case Cancelled in No Holding Area see comments below for reason Last Modified By: Guerline Vaughn RN 02/26/24 14:02:21 General Comments: Pt finished colon pre pat 0845, states stool is clear liquid , has been NPO since. /,RN Finalized By: Guerline Vaughn RN Document Signatures Signed By: Guerline Vaughn RN 02/26/24 14:02 Normal [facility] Outpatient Surgery Discharge Instructionon 02-26-2024 Outpatient Surgery Discharge Instruction Outpatient Surgery Discharge Instruction [place] [id number] Patient Discharge Instructions PERSON INFORMATION Name: REY BAXTER Date of : 1980 Current Date: 02/26/2024 15:49:43 PHYSICIANS Admitting Physician: Elías ROTH, Julio Pond Discharge Diagnosis: Chronic GERD; Colon cancer screening REY BAXTER has been given the following list of follow-up instructions, prescriptions, and patient education materials: PATIENT FOLLOW-UP INFORMATION Diet: Regular Discharge Activity: Resume normal activities in 24 hours Discharge Restrictions: No driving for 24 hrs Call Your Doctor For: Persistent or heavy bleeding IF UNABLE TO CONTACT YOUR PHYSICIAN AND YOU FEEL IT IS AN EMERGENCY, GO TO THE NEAREST EMERGENCY ROOM OR CALL 911 I, REY BAXTER, have received the attached patient education materials/instructions and have verbalized understanding: May we do a follow up call? Yes No I was present when discharge instructions were given __ Patient Signature Date Clinican/Nurse Signature Date Follow up: Type Location Start [facility] Follow Up [facility] 03/11/2024 9:30 AM 03/11/2024 9:45 AM Confirmed Pharmacy Information: You may receive a survey from [employer] asking you to rate your care experience. Your feedback is important and will help us understand what we do well and how we can improve the quality of care we provide to you, your loved ones and our community. It???s an honor to serve you. Thank you for choosing [facility] HERE ARE THE MEDICATION CHANGES THAT OCCURRED DURING YOUR HOSPITAL STAY Medications to Continue with No Changes Other Medications apixaban (Eliquis 5 mg oral tablet) 60 EA, 0 Refill(s), TAKE 1 TABLET BY MOUTH TWICE DAILY FOR 30 DAYS., Responsible Provider: Irena Jeffery MD aspirin (aspirin 81 mg Oral EC Tab) 81 Unknown, oral, 0 Refill(s), Take 81 mg by mouth in the morning.. azithromycin (azithromycin 250 mg Tab) 6 EA, 0 Refill(s), TAKE 2 TABLETS by mouth today, THEN take 1 TABLET once a day FOR the next 4 DAYS.., Responsible Provider: Juliane Ba brompheniramine/dextromethor olson/PSE (Bromfed DM oral syrup) 5 Milliliter By Mouth 4 times a day as needed for cold symptoms. Refills: 0. citalopram (citalopram 10 mg Tab) 10 Unknown, ORAL, 0 Refill(s), Take 10 mg by mouth.. desvenlafaxine (desvenlafaxine 50 mg Tab-) 30 EA, 0 Refill(s), TAKE 1 TABLET BY MOUTH DAILY., Responsible Provider: Irena Jeffery MD desvenlafaxine (Pristiq 50 mg Tab-ER) 0 Refill(s), 1 (one) time each day at the same time.. diclofenac (diclofenac sodium 75 mg Oral EC Tab) 60 EA, 0 Refill(s), TAKE 1 TABLET BY MOUTH TWICE DAILY., Responsible Provider: Irena Jeffery MD dicyclomine (Bentyl 10 mg Cap) 1 Capsules By Mouth 4 times a day as needed Pain for 14 Days. Refills: 3. hydrOXYzine (hydrOXYzine hydrochloride 25 mg Tab) 14 EA, 0 Refill(s), TAKE 1 TABLET BY MOUTH EVERY 8 HOURS NEEDED FOR ANXIETY., Responsible Provider: Gene Galarza lactulose (lactulose 10 g/15 mL Oral Syrup) 1800 mL, 0 Refill(s), TAKE 30 ML BY MOUTH TWICE DAILY NEEDED., Responsible Provider: Irena Jeffery MD metoprolol (metoprolol succinate 25 mg ER Tab) 25 Unknown, oral, 1 Refill(s), Take 1 tablet (25 mg total) by mouth in the morning.. nortriptyline (nortriptyline 10 mg Cap) 30 EA, 0 Refill(s), TAKE 1 CAPSULE BY MOUTH AT BEDTIME., Responsible Provider: Ji Fajardo pantoprazole (Pantoprazole [address] Tab) 30 EA, 0 Refill(s), TAKE 1 TABLET BY MOUTH EVERY EVENING., Responsible Provider: Irena Jeffery MD propafenone (propafenone 225 mg Tab) 60 EA, 0 Refill(s), TAKE 1 TABLET BY MOUTH TWICE DAILY (IN THE MORNING and AT BEDTIME)., Responsible Provider: Jamar Stock sucralfate (sucralfate 1 g Tab) 40 EA, 0 Refill(s), TAKE 1 TABLET BY MOUTH FOUR TIMES DAILY ON AN EMPTY STOMACH., Responsible Provider: Irena Jeffery MD tizanidine (tiZANidine 4 mg Tab) 30 EA, 0 Refill(s), TAKE 1 TABLET BY MOUTH AT BEDTIME DAILY NEEDED., Responsible Provider: Irena Jeffery MD PATIENT EDUCATION INFORMATION Instructions: Medication Leaflets: [facility] Gastroenterology Office/Clin ic Noteon 02-01-2024 Gastroenterology Office/Clinic [...] GLP-1 agonists? no CT abd/pelvis 12/29/23 @ [place]: IMPRESSION: 1. Nonobstructing left mid abdominal small bowel intussusception. XR abd 01/11/24 @ [place]: IMPRESSION: Clear lungs Moderate amount of stool US appendix 01/11/24 @ [place]: IMPRESSION: The appendix is not visualized Review [...] E&M of New Patient Moderate 45-59 Min 62699 EGD Endoscopy (Hospital Procedure) 2. LUQ pain [...] E&M of New Patient Moderate 45-59 Min 67035 EGD Endoscopy (Hospital Procedure) 4. 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 Never Smokeless Tobacco Use:., 02/01/2024 Normal [facility] Comment on above: Result Comment: Elec tronically Signed By: Elías ROTH, Julio Pond\.margarito\Date and Time Signed: 02/01/24 15:45 EDT Office Visiton 12-18-2023 Follow-up visit [id number] Blanca Baxter 1980 M Date Provider Department Center 12/18/2023 3848-BERNARDO HAYNES CARD [facility] Family History Problem Relation Age of Onset Lupus Mother Muscular dystrophy Mother Diabetes Other Family Status - Relation Status Age at Mother Other Level of Service:07208 MD OFFICE/OUTPATIENT ESTABLISHED LOW MDM 20 MIN Normal [facility] CNTHERAPYon 08-10-2023 CNTHERAPY OT/PT/Speech Visit ( [facility]) REY BAXTER ([id number]) 1980 M Date Time Provider Department 08/10/23 9:30 AM JEAN LEY [facility] Date Time Provider Department Center 08/10/2023 9:30 AM [id number] LEY Counts include 234 beds at the [facility] Reason for Visit: PT Eval [...] 1 capsule by mouth daily at bedtime. Cardiac Cath Lab Radiology Technologist: Therapy (PT/OT/Speech/Resp) ID: [id number] 08/10/2023 10:06 AM Author: JEAN LEY Signed by JEAN LEY PT on 08/10/2023 at 10:06 AM Document text: Program_ID:[id number] Access Code: [email or web address] URL: [email or web address] Date: 08-10-2023 Prepared By: Jean Ley Program Notes Exercises - Sit to Stand [...] - 3 sets - 10 reps Normal [facility] THERAPY NTon 08-10-2023 THERAPY NT HNO ID: [id number] Author: JEAN LEY PT Service: ? Author Type: Physical Therapist Type: Therapy (PT/OT/Speech/Resp) Filed: 08/10/2023 10:06 Note Text: Program_ID:[id number] Access Code: [email or web address] URL: [email or web address] Date: 08-10-2023 Prepared By: Jean Ley Program Notes Exercises - Sit to Stand [...] - 3 sets - 10 reps Normal [facility] Office Visiton 08-08-2023 Follow-up visit [id number] Blanca Baxter 1980 M Date Provider Department Center 08/08/2023 [place]-JAMAR STOCK [facility] Family History Problem Relation Age of Onset Lupus Mother Muscular dystrophy Mother Diabetes Other Family Status - Relation Status Age at Mother Other Level of Service:50473 MD OFFICE/OUTPATIENT NEW MODERATE MDM 45 MINUTES Normal [facility] CNPJoyce 08-04-2023 CNPN Telephone (NUMBHT) REY BAXTER ([id number]) 1980 M Date Time Provider Department 08/04/23 JI FAJARDO During your visit today, we recorded the following information about you: Zander Denson MA 08/04/2023 9:09 AM Signed Patient records received via electronic fax. Uploaded to Evernote via [employer]. Please review in scanned documents tab of [...] Status:Closed by ZANDER DENSON on 08/04/23 Normal [facility] MR Brain WO and W contrast I Von 08-03-2023 IMPRESSION: Minimal paranasal sinus inflammatory changes. Otherwise normal study. Cellular [employer] Climber: TAE Transcribe Date/Time: Aug 03 2023 3:53P Dictated by : JAMAR SMITH MD This examination was interpreted and the report reviewed and electronically signed by: JAMAR SMITH MD on Aug 03 2023 3:57PM [facility] DIVISION OF RADIOLOGY * * *Final Report* * * DATE OF EXAM: Aug 03 2023 3:38PM [facility] 0295 - MRI BRAIN WO/W IVCON / [...] greater than left. DIVISION OF RADIOLOGY Provider, [facility] - 08/03/2023 * * *Final Report* * * DATE OF EXAM: Aug 03 2023 3:38PM [facility] 0295 - MRI BRAIN WO/W IVCON / [...] paranasal sinus inflammatory changes. Otherwise normal study. Cellular Tower Climber: PSCB Transcribe Date/Time: Aug 03 2023 3:53P Dictated by : JAMAR SMITH MD This examination was interpreted and the report reviewed and electronically signed by: JAMAR SMITH MD on Aug 03 2023 3:57PM [facility] Radiology Study observation (narrative) [facility] MR Brain WO and W contrast I VOrdered By: Ccf Provider on 08-03-2023 [facility] MRI BRAIN WO/W IVCONon 08-02 MRI BRAIN WO/W IVCON * * *Final Report* * * DATE OF EXAM: Aug 03 2023 3:38PM [facility] 0295 - MRI BRAIN WO/W IVCON / [...] paranasal sinus inflammatory changes. Otherwise normal study. Cellular Tower Climber: PSCB Transcribe Date/Time: Aug 03 2023 3:53P Dictated by : JAMAR SMITH MD This examination was interpreted and the report reviewed and electronically signed by: JAMAR SMITH MD on Aug 03 2023 3:57PM EST [id number] Normal [facility] CNOVon 08-02-2023 CNOV Office Visit ([facility]) REY BAXTER ([id number]) 1980 M Date Time Provider Department 08/02/23 4:00 PM JI FAJARDO [facility] During your visit today, we recorded the following information about you: Pulse Respiration Blood pressure Weight 74/minute 18/minute 115/74 72.4 kg Height 1.778 m Ji Fajardo MD 08/04/2023 2:09 PM Signed [facility] NEW EVALUATION August 04, 2023 4:00 PM Pt is 43 year old male from [place], [place] who presents with headaches that appears subsequent to 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 Lead is not being chelated at [...] iv contrast (more content not included)... Normal [facility] Yumiko 08-02-2023 ANIBAL Telephone (RUDY) REY BAXTER ([id number]) 1980 M Date Time Provider Department 08/02/23 [...] Encounter Status:Closed by ZANDER DENSON on 08/03/23 [facility] 36on 06-22-2023 36 Per Ollie Pitt [...] stress test just needs done catia. Normal [facility] 36 Zywie called this mo rning to make us aware of pause > 7 seconds on patient's event monitor. They spoke with Graciela, who forwarded the strip to Ollie Pitt and Dr. Stock via email. Ollie said it appears as artifact but wanted me to call the patient to see if he had symptoms at that time. I spoke with Rey who told me he was at work during this time. 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 Denied lightheadedness/dizziness but told me he had mild pain throughout the entire left side of his body. Normal [facility] Office Visiton 06-21-2023 Follow-up visit [id number] Blanca Baxter geoffrey S 1980 M Date Provider Department Center 06/21/2023 1596-OLLIE PITT CARD [facility] Family History Problem Relation Age of Onset Lupus Mother Muscular dystrophy Mother Diabetes Other Family Status - Relation Status Age at Mother Other Level of Service:43875 MD OFFICE/OUTPATIENT NEW MODERATE MDM 45 MINUTES Reason for Visit and Comments: New Patient [632] - A Fib [facility] 37on 06-20-2023 37 1) social work 2) workers comp 3) CT abd 3) colonoscopy 4) neurologist 5) 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 7) to keep follow up with the current lead poisoning expert 78 please reach out tp poison control doucette for direction [phone] [facility] CBC AND AUTO DIFFon 06-02-19 24 ABSOLUTE BASOPHIL 0.1 X10E9/L Normal 0.0-0.2 [facility] Comment on above: Performed By: #### C BCA, CMP, 58413-5, PINR, 69180-0, 11582-2, 80040-1, 90419-4, THYR #### [facility] ([id number]) [address] [place] [address] 25297 ABSOLUTE NEUTROPHIL 3.9 X10E9/L Normal 1.5-6.6 [facility] Comment on above: Performed By: #### C BCA, CMP, 72529-2, PINR, 67184-5, 55818-7, 81216-3, 78993-7, THYR #### [facility] ([id number]) [address] [place] [address] 24964 Basophils/100 WBC (Bld) 0.8 % Normal [facility] Comment on above: Performed By: #### C BCA, CMP, 67912-1, PINR, 53828-8, 43247-3, 48880-8, 42597-7, THYR #### [facility] ([id number]) [address] [place] [address] 82507 Eosinophils (Bld) [#/Vol] 0.1 10*3/uL Normal 0.0-0.4 [facility] Comment on above: Performed By: #### C BCA, CMP, 48279-5, PINR, 83558-0, 11520-9, 08129-3, 51650-8, THYR #### [facility] ([id number]) [address] [place] [address] 61916 Eosinophils/100 WBC (Bld) 1.4 % Normal [facility] Comment on above: Performed By: #### C BCA, CMP, 25102-0, PINR, 47415-4, 55933-3, 43554-8, 26632-3, THYR #### [facility] ([id number]) [address] [place] [address] 89049 Erythrocyte distribution width (RBC) [Ratio] 13.2 % Normal 11.5-15.0 [facility] Comment on above: Performed By: #### C BCA, CMP, 67895-9, PINR, 05752-0, 80703-8, 78306-7, 94685-3, THYR #### [facility] ([id number]) [address] [place] [address] 55193 Hematocrit (Bld) [Volume fraction] 40.7 % Normal 39-49 [facility] Comment on above: Performed By: #### C BCA, CMP, 70838-8, PINR, 57033-4, 15397-1, 52520-0, 42761-9, THYR #### [facility] ([id number]) [address] [place] [address] 60606 Hemoglobin (Bld) [Mass/Vol] 14.2 g/dL Normal 13.0-17.0 [facility] Comment on above: Performed By: #### C BCA, CMP, 10803-3, PINR, 51495-2, 32402-3, 84796-7, 19228-9, THYR #### [facility] ([id number]) [address] [place] [address] 14843 Lymphocytes (Bld) [#/Vol] 2.2 10*3/uL Normal 1.0-3.5 [facility] Comment on above: Performed By: #### C BCA, CMP, 65174-6, PINR, 05838-3, 79628-2, 58343-1, 86197-2, THYR #### [facility] ([id number]) [address] [place] [address] 38032 Lymphocytes/100 WBC (Bld) 31.4 % Normal [facility] Comment on above: Performed By: #### C BCA, CMP, 18946-6, PINR, 03251-7, 31085-0, 92288-3, 90024-3, THYR #### [facility] ([id number]) [address] [place] [address] 11735 MCH (RBC) [Entitic mass] 30.7 pg Normal 27-34 [facility] Comment on above: Performed By: #### C BCA, CMP, 16660-5, PINR, 66930-6, 41650-5, 27368-2, 88032-5, THYR #### [facility] ([id number]) [address] [place] [address] 57004 MCHC (RBC) [Mass/Vol] 34.9 g/dL Normal 32-36 [facility] Comment on above: Performed By: #### C BCA, CMP, 10583-7, PINR, 86404-3, 10954-1, 99551-0, 86059-6, THYR #### [facility] ([id number]) [address] [place] [address] 30869 MCV (RBC) [Entitic vol] 88 fL Normal 80-100 [facility] Comment on above: Performed By: #### C BCA, CMP, 58171-3, PINR, 12462-7, 53083-8, 15594-5, 56705-3, THYR #### [facility] ([id number]) [address] [place] [address] 12787 Monocytes (Bld) [#/Vol] 0.7 10*3/uL Normal 0-0.9 [facility] Comment on above: Performed By: #### C BCA, CMP, 53730-2, PINR, 83649-3, 35711-4, 16212-0, 30020-1, THYR #### [facility] ([id number]) [address] [place] [address] 60893 Monocytes/100 WBC (Bld) 10.7 % Normal [facility] Comment on above: Performed By: #### C BCA, CMP, 14320-0, PINR, 71447-1, 81095-2, 12683-3, 42761-8, THYR #### [facility] ([id number]) [address] [place] [address] 75740 Neutrophils/100 WBC (Bld) 55.7 % Normal [facility] Comment on above: Performed By: #### C BCA, CMP, 01858-2, PINR, 58861-7, 01950-1, 38167-8, 37950-4, THYR #### [facility] ([id number]) [address] [place] [address] [place] [address] Platelet mean volume (Bld) [Entitic vol] 8.5 fL Normal 7-12 [facility] Comment on above: Performed By: #### C BCA, CMP, 83695-6, PINR, 72558-5, 48618-6, 35461-0, 90559-1, THYR #### [facility] ([id number]) [address] [place] [address] 26216 Platelets (Bld) [#/Vol] 192 10*3/uL Normal 150-450 [facility] Comment on above: Performed By: #### C BCA, CMP, 50011-7, PINR, 05494-9, 23518-4, 73842-2, 25755-6, THYR #### [facility] ([id number]) [address] [place] [address] 95910 RBC COUNT 4.61 X10E12/L Normal 4.10-5.70 [facility] Comment on above: Performed By: #### C BCA, CMP, 88942-5, PINR, 38053-9, 10234-5, 87439-8, 47978-7, THYR #### [facility] ([id number]) [address] [place] [address] 79889 WBC (Bld) [#/Vol] 7.0 10*3/uL Normal 4.0-11.0 [facility] Comment on above: Performed By: #### C BCA, CMP, 63406-4, PINR, 73304-3, 59420-8, 02934-6, 94342-0, THYR #### [facility] [facility] ([id number]) [address] [place] [address] 07955 COMPREHENSIVE METABOLIC PANE Nik 06-02-2023 Albumin [Mass/Vol] 4.2 g/dL Normal 3.2-5.3 [facility] Comment on above: Performed By: #### C BCA, CMP, 41846-8, PINR, 26768-0, 98019-4, 83584-7, 70628-7, THYR #### [facility] ([id number]) [address] [place] [address] ALP [Catalytic activity/Vol] 84 U/L Normal 39-130 [facility] Comment on above: Performed By: #### C BCA, CMP, 32303-3, PINR, 03094-5, 57549-1, 61529-4, 81111-4, THYR #### [facility] ([id number]) [address] [place] [address] 63328 ALT [Catalytic activity/Vol] 27 U/L Normal 0-40 [facility] Comment on above: Performed By: #### C BCA, CMP, 47862-6, PINR, 63017-6, 57512-4, 83232-8, 07253-3, THYR #### [facility] ([id number]) [address] [place] [address] 56875 Anion gap [Moles/Vol] 8 mmol/L Normal 5-15 [facility] Comment on above: Performed By: #### C BCA, CMP, 01238-7, PINR, 98479-3, 43709-3, 51302-6, 87275-6, THYR #### [facility] ([id number]) [address] [place] [address] 26644 AST [Catalytic activity/Vol] 22 U/L Normal 0-41 [facility] Comment on above: Performed By: #### C BCA, CMP, 42610-3, PINR, 62997-1, 67448-4, 24997-6, 31913-3, THYR #### [facility] ([id number]) [address] [place] [address] 37254 Bilirubin [Mass/Vol] 0.8 mg/dL Normal 0.3-1.2 [facility] Comment on above: Performed By: #### C BCA, CMP, 83421-4, PINR, 73185-6, 05045-2, 56408-9, 66796-4, THYR #### [facility] ([id number]) [address] [place] [address] [place] [address] Calcium [Mass/Vol] 10.0 mg/dL Normal 8.5-10.5 [facility] Comment on above: Performed By: #### C BCA, CMP, 12374-3, PINR, 65646-9, 45636-8, 97654-7, 35347-7, THYR #### [facility] ([id number]) [address] [place] [address] [place] [address] Chloride [Moles/Vol] 102 mmol/L Normal 98-109 [facility] Comment on above: Performed By: #### C BCA, CMP, 15138-0, PINR, 39108-3, 86713-0, 51227-7, 37790-4, THYR #### [facility] ([id number]) [address] [place] [address] 77524 CO2 [Moles/Vol] 26 mmol/L Normal 22-32 [facility] Comment on above: Performed By: #### C BCA, CMP, 80332-1, PINR, 15274-0, 30504-5, 34433-1, 68452-0, THYR #### [facility] ([id number]) [address] [place] [address] 38405 Creatinine [Mass/Vol] 1.07 mg/dL Normal 0.70-1.20 [facility] Comment on above: Result Comment: METH OD TRACEABLE TO IDMS STANDARD Performed By: #### C BCA, CMP, 47377-7, PINR, 43858-5, 93308-0, 21780-6, 03991-8, THYR #### [facility] ([id number]) [address] [place] [address] 66426 GFR/1.73 sq M.predicted among non-blacks MDRD (S/P/Bld) [Vol rate/Area] 88 mL/min/{1.73_m2} Normal >59 [facility] Comment on above: Result Comment: Reported eGFR is based on the CKD-EPI 2020 equation that does not use a race coefficient. Performed By: #### C BCA, CMP, 42375-1, PINR, 58011-8, 17796-3, 50212-3, 17263-0, THYR #### [facility] ([id number]) [address] [place] [address] 14790 Glucose [Mass/Vol] 94 mg/dL Normal 65-99 [facility] Comment on above: Performed By: #### C BCA, CMP, 91282-8, PINR, 84831-8, 22149-9, 31290-7, 48196-0, THYR #### [facility] ([id number]) [address] [place] [address] 24566 Potassium [Moles/Vol] 4.0 mmol/L Normal 3.5-5.0 [facility] Comment on above: Performed By: #### C BCA, CMP, 75425-7, PINR, 51043-6, 09888-7, 58754-3, 09815-5, THYR #### [facility] ([id number]) [address] [place] [address] 18354 Protein [Mass/Vol] 7.0 g/dL Normal 6.0-8.0 [facility] Comment on above: Performed By: #### C BCA, CMP, 83396-4, PINR, 18814-8, 71158-7, 47632-2, 14844-7, THYR #### [facility] ([id number]) [address] [place] [address] 10681 Sodium [Moles/Vol] 136 mmol/L Normal 134-146 [facility] Comment on above: Performed By: #### C BCA, CMP, 03868-7, PINR, 31929-9, 25042-3, 87334-7, 21901-8, THYR #### [facility] ([id number]) [address] [place] [address] Urea nitrogen [Mass/Vol] 20 mg/dL Normal 5-23 [facility] Comment on above: Performed By: #### C BCA, CMP, 34548-5, PINR, 53096-5, 90280-8, 61872-1, 87613-5, THYR #### [facility] ([id number]) [address] [place] [address] 08478 MAGNESIUMon 06-02-2023 Magnesium [Mass/Vol] 2.1 mg/dL Normal 1.8-2.6 [facility] Comment on above: Performed By: #### C BCA, CMP, 77185-1, PINR, 87748-8, 78429-3, 30289-1, 49265-5, THYR #### [facility] ([id number]) [address] [place] [address] 71546 TROPONIN Ion 06-02-2023 Troponin I.cardiac [Mass/Vol] ng/mL Normal 0.00-0.04 [facility] Comment on above: Performed By: #### C BCA, CMP, 33802-9, PINR, 19558-6, 09994-3, 42748-4, 47573-3, THYR #### [facility] ([id number]) [address] [place] [address] 99210 CBC AND AUTO DIFFon 06-01-19 24 ABSOLUTE BASOPHIL 0.1 X10E9/L Normal 0.0-0.2 [facility] Comment on above: Performed By: #### C BCA, CMP, 21198-1, PINR, 30281-8, 57265-0, 28226-0, 41096-4, THYR #### [facility] ([id number]) [address] [place] [address] 61226 ABSOLUTE NEUTROPHIL 5.1 X10E9/L Normal 1.5-6.6 [facility] Comment on above: Performed By: #### C BCA, CMP, 36973-7, PINR, 05325-5, 03293-1, 02621-3, 55357-7, THYR #### [facility] ([id number]) [address] [place] [address] 93435 Basophils/100 WBC (Bld) 0.8 % Normal [facility] Comment on above: Performed By: #### C BCA, CMP, 92472-6, PINR, 24537-6, 87204-3, 92438-0, 27200-4, THYR #### [facility] ([id number]) [address] [place] [address] 27589 Eosinophils (Bld) [#/Vol] 0.1 10*3/uL Normal 0.0-0.4 [facility] Comment on above: Performed By: #### C BCA, CMP, 99152-2, PINR, 30101-3, 11077-8, 16324-9, 35824-1, THYR #### [facility] ([id number]) [address] [place] [address] 37300 Eosinophils/100 WBC (Bld) 1.1 % Normal [facility] Comment on above: Performed By: #### C BCA, CMP, 85526-5, PINR, 05131-5, 22807-6, 79897-1, 71199-8, THYR #### [facility] ([id number]) [address] [place] [address] [place] [address] Erythrocyte distribution width (RBC) [Ratio] 13.0 % Normal 11.5-15.0 [facility] Comment on above: Performed By: #### C BCA, CMP, 09684-8, PINR, 81223-0, 06953-0, 28276-1, 80570-6, THYR #### [facility] ([id number]) [address] [place] [address] 56725 Hematocrit (Bld) [Volume fraction] 41.5 % Normal 39-49 [facility] Comment on above: Performed By: #### C BCA, CMP, 05036-7, PINR, 62962-1, 23435-6, 13345-3, 73642-0, THYR #### [facility] ([id number]) [address] [place] [address] 20596 Hemoglobin (Bld) [Mass/Vol] 14.6 g/dL Normal 13.0-17.0 [facility] Comment on above: Performed By: #### C BCA, CMP, 04672-5, PINR, 27644-0, 05311-7, 00653-2, 96797-4, THYR #### [facility] ([id number]) [address] [place] [address] 58581 Lymphocytes (Bld) [#/Vol] 1.7 10*3/uL Normal 1.0-3.5 [facility] Comment on above: Performed By: #### C BCA, CMP, 57240-1, PINR, 37931-4, 94032-6, 36653-4, 62529-8, THYR #### [facility] ([id number]) [address] [place] [address] 25882 Lymphocytes/100 WBC (Bld) 22.2 % Normal [facility] Comment on above: Performed By: #### C BCA, CMP, 37535-7, PINR, 02539-0, 58527-7, 88742-8, 80489-9, THYR #### [facility] ([id number]) [address] [place] [address] 37737 MCH (RBC) [Entitic mass] 30.4 pg Normal 27-34 [facility] Comment on above: Performed By: #### C BCA, CMP, 55031-7, PINR, 97861-0, 02752-5, 60364-6, 41658-7, THYR #### [facility] ([id number]) [address] [place] [address] 11015 MCHC (RBC) [Mass/Vol] 35.1 g/dL Normal 32-36 [facility] Comment on above: Performed By: #### C BCA, CMP, 85206-5, PINR, 04256-7, 86541-5, 31209-9, 77945-0, THYR #### [facility] ([id number]) [address] [place] [address] 34592 MCV (RBC) [Entitic vol] 87 fL Normal 80-100 [facility] Comment on above: Performed By: #### C BCA, CMP, 61349-0, PINR, 03645-1, 65548-2, 28624-5, 28009-3, THYR #### [facility] ([id number]) [address] [place] [address] 30945 Monocytes (Bld) [#/Vol] 0.6 10*3/uL Normal 0-0.9 [facility] Comment on above: Performed By: #### C BCA, CMP, 68255-3, PINR, 81164-1, 88008-1, 47129-1, 84514-3, THYR #### [facility] ([id number]) [address] [place] [address] 75252 Monocytes/100 WBC (Bld) 7.8 % Normal [facility] Comment on above: Performed By: #### C BCA, CMP, 80920-1, PINR, 13982-1, 96820-6, 13533-0, 10592-0, THYR #### [facility] ([id number]) [address] [place] [address] 69659 Neutrophils/100 WBC (Bld) 68.1 % Normal [facility] Comment on above: Performed By: #### C BCA, CMP, 67863-7, PINR, 39853-2, 37868-2, 51710-6, 17855-4, THYR #### [facility] ([id number]) [address] [place] [address] 12300 Platelet mean volume (Bld) [Entitic vol] 8.3 fL Normal 7-12 [facility] Comment on above: Performed By: #### C BCA, CMP, 48336-6, PINR, 35140-3, 51360-4, 33703-7, 39827-6, THYR #### [facility] ([id number]) [address] [place] [address] 74594 Platelets (Bld) [#/Vol] 207 10*3/uL Normal 150-450 [facility] Comment on above: Performed By: #### C BCA, CMP, 58292-2, PINR, 64180-4, 46867-8, 97603-0, 57424-7, THYR #### [facility] ([id number]) [address] [place] [address] 80676 RBC COUNT 4.79 X10E12/L Normal 4.10-5.70 [facility] Comment on above: Performed By: #### C BCA, CMP, 51019-1, PINR, 59124-5, 33315-9, 89791-0, 07570-9, THYR #### [facility] ([id number]) [address] [place] [address] 96471 WBC (Bld) [#/Vol] 7.5 10*3/uL Normal 4.0-11.0 [facility] Comment on above: Performed By: #### C BCA, CMP, 30950-1, PINR, 80027-5, 56113-6, 27062-8, 47827-5, THYR #### [facility] ([id number]) [address] [place] [address] 89822 COMPREHENSIVE METABOLIC PANE Nik 06-01-2023 Albumin [Mass/Vol] 5.0 g/dL Normal 3.2-5.3 [facility] Comment on above: Performed By: #### C BCA, CMP, 02008-8, PINR, 47129-6, 28031-4, 84260-7, 85805-8, THYR #### [facility] ([id number]) [address] [place] [address] [place] [address] ALP [Catalytic activity/Vol] 90 U/L Normal 39-130 [facility] Comment on above: Performed By: #### C BCA, CMP, 78659-6, PINR, 22687-5, 87129-8, 25381-3, 54085-9, THYR #### [facility] ([id number]) [address] [place] [address] 54428 ALT [Catalytic activity/Vol] 32 U/L Normal 0-40 [facility] Comment on above: Performed By: #### C BCA, CMP, 23036-8, PINR, 58550-5, 74085-5, 84630-7, 14026-2, THYR #### [facility] ([id number]) [address] [place] [address] [place] [address] Anion gap [Moles/Vol] 7 mmol/L Normal 5-15 [facility] Comment on above: Performed By: #### C BCA, CMP, 75824-8, PINR, 94359-5, 33582-7, 13201-9, 46560-9, THYR #### [facility] ([id number]) [address] [place] [address] [place] [address] AST [Catalytic activity/Vol] 27 U/L Normal 0-41 [facility] Comment on above: Performed By: #### C BCA, CMP, 31087-7, PINR, 87208-1, 85664-0, 80071-5, 15149-1, THYR #### [facility] ([id number]) [address] [place] [address] [place] [address] Bilirubin [Mass/Vol] 0.8 mg/dL Normal 0.3-1.2 [facility] Comment on above: Performed By: #### C BCA, CMP, 47998-4, PINR, 50789-7, 37941-6, 33234-5, 96942-6, THYR #### [facility] ([id number]) [address] [place] [address] 16428 Calcium [Mass/Vol] 10.1 mg/dL Normal 8.5-10.5 [facility] Comment on above: Performed By: #### C BCA, CMP, 81376-8, PINR, 06795-7, 07829-3, 84401-7, 80725-7, THYR #### [facility] ([id number]) [address] [place] [address] [place] [address] Chloride [Moles/Vol] 103 mmol/L Normal 98-109 [facility] Comment on above: Performed By: #### C BCA, CMP, 25207-5, PINR, 14412-0, 02228-7, 10217-8, 42432-3, THYR #### [facility] ([id number]) [address] [place] [address] [place] [address] CO2 [Moles/Vol] 24 mmol/L Normal 22-32 [facility] Comment on above: Performed By: #### C BCA, CMP, 19329-1, PINR, 04820-6, 10495-9, 45305-6, 88874-1, THYR #### [facility] ([id number]) [address] [place] [address] [place] [address] Creatinine [Mass/Vol] 1.18 mg/dL Normal 0.70-1.20 [facility] Comment on above: Result Comment: METH OD TRACEABLE TO IDMS STANDARD Performed By: #### C BCA, CMP, 23739-9, PINR, 83588-2, 07448-0, 30231-0, 45934-3, THYR #### [facility] ([id number]) [address] [place] [address] [place] [address] GFR/1.73 sq M.predicted among non-blacks MDRD (S/P/Bld) [Vol rate/Area] 78 mL/min/{1.73_m2} Normal >59 [facility] Comment on above: Result Comment: Reported eGFR is based on the CKD-EPI 2020 equation that does not use a race coefficient. Performed By: #### C BCA, CMP, 57521-5, PINR, 58606-5, 91828-6, 91038-6, 10836-5, THYR #### [facility] ([id number]) [address] [place] [address] 03474 Glucose [Mass/Vol] 86 mg/dL Normal 65-99 [facility] Comment on above: Performed By: #### C BCA, CMP, 29428-8, PINR, 51437-2, 46165-5, 71957-6, 41257-9, THYR #### [facility] ([id number]) [address] [place] [address] 74425 Potassium [Moles/Vol] 3.8 mmol/L Normal 3.5-5.0 [facility] Comment on above: Performed By: #### C BCA, CMP, 06240-2, PINR, 87264-0, 18772-4, 58769-4, 26843-1, THYR #### [facility] ([id number]) [address] [place] [address] 14999 Protein [Mass/Vol] 7.8 g/dL Normal 6.0-8.0 [facility] Comment on above: Performed By: #### C BCA, CMP, 73939-4, PINR, 00011-9, 12948-7, 08104-3, 02005-1, THYR #### [facility] ([id number]) [address] [place] [address] 56604 Sodium [Moles/Vol] 134 mmol/L Normal 134-146 [facility] Comment on above: Performed By: #### C BCA, CMP, 29486-1, PINR, 91554-6, 62391-1, 90425-5, 37045-1, THYR #### [facility] ([id number]) [address] [place] [address] 42392 Urea nitrogen [Mass/Vol] 16 mg/dL Normal 5-23 [facility] Comment on above: Performed By: #### C BCA, CMP, 31884-2, PINR, 30454-5, 92976-1, 65381-6, 97052-2, THYR #### [facility] ([id number]) [address] [place] [address] 10231 DRUG SCREEN, URINEon 024 AMPHETAMINE/METHAM P Negative Normal NEG [facility] Comment on above: Result Comment: AMPH /METH screening cut off = 1000 ng/mL Performed By: #### C BCA, CMP, 05630-2, PINR, 74149-9, 65751-6, 32906-5, 83144-1, THYR #### [facility] ([id number]) [address] [place] [address] 01135 BARBITURATES Negative Normal NEG [facility] Comment on above: Result Comment: Yen iturates screening cut off value = 200 ng/mL Performed By: #### C BCA, CMP, 77892-5, PINR, 68482-9, 60120-3, 61771-7, 40663-1, THYR #### [facility] ([id number]) [address] [place] [address] 23384 BENZODIAZEPINES Negative Normal NEG [facility] Comment on above: Result Comment: Carlos odiazepines screening cut off value = 200 ng/mL Performed By: #### C BCA, CMP, 56130-3, PINR, 73131-9, 99601-4, 89387-1, 09997-4, THYR #### [facility] ([id number]) [address] [place] [address] 80675 CANNABINOIDS Negative Normal NEG [facility] Comment on above: Result Comment: Shirlene abinoids/THC screening cut off value = 50 ng/mL Performed By: #### C BCA, CMP, 15594-6, PINR, 47731-1, 15620-8, 07701-5, 74051-8, THYR #### [facility] ([id number]) [address] [place] [address] 45400 COCAINE METABOLITE Negative Normal NEG [facility] Comment on above: Result Comment: Coca ine screening cut off value = 300 ng/mL Performed By: #### C BCA, CMP, 91557-2, PINR, 78047-0, 50283-9, 16955-4, 94615-8, THYR #### [facility] ([id number]) [address] [place], [place] [address] ECSTASY Negative Normal [facility] Comment on above: Result Comment: Ecst asy screening cut off value = 500 ng/mL This report is intended for use in clinical monitoring or management of patients. Performed By: #### C BCA, CMP, 88992-2, PINR, 72234-0, 29842-5, 52900-9, 55101-4, THYR #### [facility] ([id number]) [address] [place] [address] 61734 METHADONE Negative Normal NEG [facility] Comment on above: Result Comment: Meth adone screening cut off value = 300 ng/mL. Performed By: #### C BCA, CMP, 35207-2, PINR, 24465-5, 89957-7, 55785-4, 48752-4, THYR #### [facility] ([id number]) [address] [place] [address] 50608 OPIATES Negative Normal NEG [facility] Comment on above: Result Comment: Opia yolande screening cut off value = 300 ng/mL NOTE: This test is used for the detection of codeine, hydrocodone (>1000 ng/mL), morphine and hydromorphone (>900 ng/mL) in urine. Performed By: #### C BCA, CMP, 52668-6, PINR, 54815-0, 15087-0, 01284-2, 13723-3, THYR #### [facility] ([id number]) [address] [place] [address] 77044 OXYCODONE Negative Normal NEG [facility] Comment on above: Result Comment: Oxyc odone screening cut off value = 300 ng/mL NOTE: This test is used for the detection of oxycodone and oxymorphone in urine. Performed By: #### C BCA, CMP, 02755-3, PINR, 81669-5, 15826-7, 34193-2, 04296-3, THYR #### [facility] ([id number]) [address] [place] [address] 72913 PHENCYCLIDINE Negative Normal NEG [facility] Comment on above: Result Comment: Phen cyclidine screening cut off value = 25 ng/mL Performed By: #### C BCA, CMP, 94145-5, PINR, 04922-0, 39813-2, 92365-0, 86060-6, THYR #### [facility] ([id number]) [address] [place] [address] 56902 Fibrin D-dimer DDU (PPP) [Ma ss/Vol]on 06-01-2023 D DIMER <150 Normal <255 [facility] Comment on above: Result Comment: Results <255 ng/mL DDU: The presence of a VTE can safely be excluded with a negative D-Dimer result and Wells score. A negative result doesn't exclude the possibility of DIC. The test be repeated along with other diagnostic tests if the patient's symptoms persist or worsen. [email or web address] Performed By: #### C BCA, CMP, 62497-0, PINR, 08833-6, 93423-1, 11750-5, 28590-1, THYR #### [facility] ([id number]) [address] [place] [address] 90990 Lead (BldV) [Mass/Vol]on LEAD, VENOUS 33.8 mcg/dL High <3.5 [facility] Comment on above: Result Comment: NOTE ADDITIONAL INFORMATION Testing performed by Inductively Coupled Plasma-Mass Spectrometry (ICP-MS). This test was developed and its performance characteristics determined by [facility] in a manner consistent with CLIA requirements. This test has not been cleared or approved by the U.S. Food and Drug Administration. Performed By: #### C BCA, CMP, 08818-9, PINR, 13068-3, 89798-7, 64966-8, 63538-2, THYR #### [facility] ([id number]) [address] [place] [address] 26716 MAGNESIUMon 06-01-2023 Magnesium [Mass/Vol] 2.1 mg/dL Normal 1.8-2.6 [facility] Comment on above: Performed By: #### C BCA, CMP, 14644-8, PINR, 42932-5, 58222-6, 43416-2, 65046-8, THYR #### [facility] ([id number]) [address] [place] [address] 57297 Natriuretic peptide B [Mass/ Vol]on 06-01-2023 BRN NATRIURETIC PEP <5 Normal <100.0 [facility] Comment on above: Performed By: #### C BCA, CMP, 46686-0, PINR, 04614-9, 39839-9, 17299-9, 34947-6, THYR #### [facility] ([id number]) [address] [place] [address] 79978 PROTIME AND INRon 06-01-2023 INR Coag (PPP) [Relative time] 1.1 {INR} Normal 0.8-1.1 [facility] Comment on above: Performed By: #### C BCA, CMP, 93609-3, PINR, 37526-2, 93780-3, 97620-4, 65729-4, THYR #### [facility] ([id number]) [address] [place] [address] 68066 PT Coag (PPP) [Time] 12.6 s Normal 9.8-13.2 [facility] Comment on above: Result Comment: NEW REFERENCE RANGE Performed By: #### C BCA, CMP, 55305-8, PINR, 81413-9, 61770-4, 31777-8, 62577-5, THYR #### [facility] ([id number]) [address] [place] [address] 73305 THYROID PROFILEon 06-01-2023 Free T4 [Mass/Vol] 0.88 ng/dL Normal 0.61-1.60 [facility] Comment on above: Performed By: #### C BCA, CMP, 42356-8, PINR, 15928-6, 62445-4, 31492-8, 52225-7, THYR #### [facility] ([id number]) [address] [place] [address] 22280 TSH 1.27 uIU/mL Normal 0.49-4.67 [facility] Comment on above: Performed By: #### C BCA, CMP, 75778-4, PINR, 37548-2, 34785-4, 19663-0, 44495-8, THYR #### [facility] ([id number]) [address] [place] [address] 60620 TROPONIN Ion 06-01-2023 Troponin I.cardiac [Mass/Vol] ng/mL Normal 0.00-0.04 [facility] Comment on above: Performed By: #### C BCA, CMP, 87078-6, PINR, 11787-2, 28013-8, 87689-4, 26053-7, THYR #### [facility] ([id number]) [address] [place] [address] 93104 URN MACROSCOPIC NURon 2023 BILIRUBIN FITO Negative Normal NEG [facility] Comment on above: Performed By: #### C BCA, CMP, 99649-6, PINR, 05525-4, 31920-5, 61055-1, 59346-2, THYR #### [facility] ([id number]) [address] [place] [address] 96448 BLOOD/HGB FITO Negative Normal NEG [facility] Comment on above: Performed By: #### C BCA, CMP, 82779-6, PINR, 35383-9, 45632-4, 16822-5, 85642-5, THYR #### [facility] ([id number]) [address] [place] [address] [place] [address] GLUCOSE FITO Negative Normal NEG [facility] Comment on above: Performed By: #### C BCA, CMP, 37581-7, PINR, 20656-4, 46324-9, 28980-6, 37859-9, THYR #### [facility] ([id number]) [address] [place] [address] [id number] KETONES FITO 40 mg/dL Abnormal NEG [facility] Comment on above: Performed By: #### C BCA, CMP, 03439-5, PINR, 37355-7, 43859-1, 98181-0, 07421-2, THYR #### [facility] ([id number]) [address] [place] [address] 21257 LEUKOCYTE ESTERASE FITO Negative Normal NEG [facility] Comment on above: Performed By: #### C BCA, CMP, 07081-1, PINR, 89882-4, 64225-4, 91678-1, 48017-5, THYR #### [facility] ([id number]) [address] [place] [address] 21936 NITRITE FITO Negative Normal NEG [facility] Comment on above: Performed By: #### C BCA, CMP, 49338-5, PINR, 03260-2, 13158-6, 58012-4, 60007-1, THYR #### [facility] ([id number]) [address] [place] [address] 31828 PH FITO 5.5 Normal 5.0-8.5 [facility] Comment on above: Performed By: #### C BCA, CMP, 00451-6, PINR, 70995-2, 72412-1, 18188-6, 24733-3, THYR #### [facility] ([id number]) [address] [place] [address] PROTEIN FITO Negative Normal NEG [facility] Comment on above: Performed By: #### C BCA, CMP, 13452-9, PINR, 94530-7, 38929-3, 08362-3, 68028-4, THYR #### [facility] ([id number]) [address] [place] [address] 71327 SPECIFIC GRAVITY FITO 1.025 Normal 1.003-1.035 [facility] Comment on above: Performed By: #### C BCA, CMP, 32627-2, PINR, 78424-6, 01429-9, 08090-2, 72715-5, THYR #### [facility] ([id number]) [address] [place] [address] 44619 UROBILINOGEN FITO 0.2 eu/dL Normal <1.1 [facility] Comment on above: Performed By: #### C BCA, CMP, 83359-6, PINR, 94029-4, 37549-1, 63342-6, 09733-9, THYR #### [facility] ([id number]) [address] [place] [address]152 XR CHEST 1 VWon 06-01-2023 XR CHEST [...] Pardo DO on 06/01/2023 3:32 PM Normal [facility] aPTT Coag (PPP) [Time]on aPTT Coag (Bld) [Time] 35 s Normal 26-37 [facility] Comment on above: Result Comment: NEW REFERENCE RANGE Performed By: #### C BCA, CMP, 33840-5, PINR, 59751-8, 37086-8, 87828-7, 35308-1, THYR #### [facility] ([id number]) [address] [place] [address]2332 LEAD,ADULTon 09-05-2022 Lead, Blood (Adult) 45.4 ug/dL Invalid Interpretation Code 0.0-3.[address] [facility] Comment on above: Result Comment: Test ing performed by Inductively coupled plasma/Mass Spectrometry. Verified by repeat analysis Analysis by inductively coupled plasma/mass spectrometry (ICP/MS) Environmental Exposure: WHO Recommendation <20.0 Occupational Exposure: OSHA Lead Std 40.0 CHAZ 30.0 . Detection Limit = 1.0 Performed By: #### L EADA #### [facility] [address] [place] [address] Dr. Rachel COLLINS,ADULTon 09-01-2022 Lead, Blood (Adult) CLOTWB Normal [facility] Comment on above: Result Comment: Test not performed. Whole blood specimen partially or completely clotted. A common cause is insufficient mixing upon collection. Testing performed by Inductively coupled plasma/Mass Spectrometry. contacted Nohelia at your facility on 09-01-2022 Environmental Exposure: WHO Recommendation <20.0 Occupational Exposure: OSHA Lead Std 40.0 CHAZ 30.0 . Detection Limit = 1.0 Performed By: #### I NSULIN #### [facility] [address] [place] [address] Dr. Rachel Cortze LEAD,ADULTon 08-30-2022 Lead, Blood (Adult) CLOTWB Normal [facility] Comment on above: Result Comment: Test not performed. Whole blood specimen partially or completely clotted. A common cause is insufficient mixing upon collection. Testing performed by Inductively coupled plasma/Mass Spectrometry. contacted Taya at your facility on 08-30-2022 Environmental Exposure: WHO Recommendation <20.0 Occupational Exposure: OSHA Lead Std 40.0 CHAZ 30.0 . Detection Limit = 1.0 Performed By: #### L EADA #### [facility] [address] [place] [address] Dr. Rachel Cortez BNPon 08-29-2022 Natriuretic peptide B (Bld) [Mass/Vol] 10.0 pg/mL Normal <=450.[address] [facility] Comment on above: Performed By: #### C MP, TSH, BNP #### [facility] [address] [place] [address] Dr. Rachel Cortez CBC AUTO DIFFon 08-29-2022 BASO # 0.0 103/ul Normal 0.0-0.[address] [facility] Comment on above: Performed By: #### C BC #### [facility] [address] [place] [address] Dr. Rachel Cortez Basophils/100 WBC (Bld) 0.5 % Normal 0.2-2.[address] [facility] Comment on above: Performed By: #### C BC #### [facility] [address] [place] [address] Dr. Rachel Cortez EO # 0.2 103/ul Normal 0.0-0.[address] [facility] Comment on above: Performed By: #### C BC #### [facility] [address] [place] [address] Dr. Rachel Cortez Eosinophils/100 WBC (Bld) 2.7 % Normal 0.9-7.[address] [facility] Comment on above: Performed By: #### C BC #### [facility] [address] [place] [address] Dr. Rachel Cortez Erythrocyte distribution width (RBC) [Ratio] 12.3 % Normal 11.0-15.[address] [facility] Comment on above: Performed By: #### C BC #### [facility] [address] [place] [address] Dr. Rachel Cortez Hematocrit (Bld) [Volume fraction] 40.9 % Critically low 42.0-54.[address] [facility] Comment on above: Performed By: #### C BC #### [facility] [address] [place] [address] Dr. Rachel Cortez Hemoglobin (Bld) [Mass/Vol] 13.9 g/dL Critically low 14.0-18.[address] [facility] Comment on above: Performed By: #### C BC #### [facility] [address] [place] [address] Dr. Rachel Cortez IG # 0.02 10e3/ul Normal 0.00-0.[address] [facility] Comment on above: Performed By: #### C BC #### [facility] [address] [place] [address] Dr. Rachel Cortez IG % 0.3 % Normal 0.0-0.[address] [facility] Comment on above: Performed By: #### C BC #### [facility] [address] [place] [address] Dr. Rachel Cortez LYMPH # 1.6 103/ul Normal 1.2-3.[address] [facility] Comment on above: Performed By: #### C BC #### [facility] [address] [place] [address] Dr. Rachel Cortez Lymphocytes/100 WBC (Bld) 21.2 % Normal 20.5-60.[address] [facility] Comment on above: Performed By: #### C BC #### [facility] [address] [place] [address] Dr. Rachel Cortez MANUAL DIFF REQ NO Normal [facility] Comment on above: Performed By: #### C BC #### [facility] [address] [address] [address] Rachel Cortez MCH (RBC) [Entitic mass] 30.3 pg Normal 25.9-34.[address] [facility] Comment on above: Performed By: #### C BC #### [facility] [address] [address] [address] Rachel Cortez MCHC (RBC) [Mass/Vol] 34.0 g/dL Normal 29.9-35.[address] [facility] Comment on above: Performed By: #### C BC #### [facility] [address] [place] [address] Dr. Rachel Cortez MCV (RBC) [Entitic vol] 89.3 fL Normal 80.0-94.[address] [facility] Comment on above: Performed By: #### C BC #### [facility] [address] [place] [address] Dr. Rachel Cortez MONO # 0.6 103/ul Normal 0.3-0.[address] [facility] Comment on above: Performed By: #### C BC #### [facility] [address] [place] [address] Dr. Rachel Cortez Monocytes/100 WBC (Bld) 8.6 % Normal 1.7-12.[address] [facility] Comment on above: Performed By: #### C BC #### [facility] [address] [place] [address] Dr. Rachel Cortez NEUT # 5.0 103/ul Normal 1.4-6.[address] [facility] Comment on above: Performed By: #### C BC #### [facility] [address] [place] [address] Dr. Rachel Cortez Neutrophils/100 WBC (Bld) 66.7 % Normal 43.0-75.[address] [facility] Comment on above: Performed By: #### C BC #### [facility] [address] [place] [address] Dr. Rachel Cortez Platelet mean volume (Bld) [Entitic vol] 10.2 fL Normal 9.5-13.[address] [facility] Comment on above: Performed By: #### C BC #### [facility] [address] [place] [address] Dr. Rachel Cortez PLT 198 103/ul Normal 150-[address] [facility] Comment on above: Performed By: #### C BC #### [facility] [address] [place] [address] Dr. Rachel Cortez RBC 4.58 106/ul Critically low 4.70-6.10 [facility] Comment on above: Performed By: #### C BC #### [facility] [address] [place] [address] Dr. Rachel Cortez WBC 7.5 103/ul Normal 4.0-11.[address] [facility] Comment on above: Performed By: #### C BC #### [facility] [address] [place] [address] Dr. Rachel Cortez FREE T4on 08-29-2022 Free T4 [Mass/Vol] 0.84 ng/dL Normal 0.76-1.46 [facility] Comment on above: Performed By: #### I KANDIS FT4 #### [facility] [address] [place] [address] Dr. Rachel Cortez IRONon 08-29-2022 Iron [Mass/Vol] 86.0 ug/dL Normal 65.0-175.0 [facility] Comment on above: Performed By: #### I KANDIS FT4 #### [facility] [address] [place] [address] Dr. Rachel Cortez PROF 14(COMP METB)on 023 Albumin [Mass/Vol] 4.0 g/dL Normal 3.4-5.0 [facility] Comment on above: Performed By: #### C MP, TSH, BNP #### [facility] [address] [place] [address] Dr. Rachel Cortez Albumin/Globulin [Mass ratio] 1.2 {ratio} Normal [facility] Comment on above: Performed By: #### C MP, TSH, BNP #### [facility] [address] [place] [address] Dr. Rachel Cortez ALP [Catalytic activity/Vol] 103 U/L Normal 46-[address] [facility] Comment on above: Performed By: #### C MP, TSH, BNP #### [facility] [address] [address] [address] Rachel Cortez ALT [Catalytic activity/Vol] 39 U/L Normal 16-[address] [facility] Comment on above: Performed By: #### C MP, TSH, BNP #### [facility] [address] [address] [address] Rachel Cortez Anion gap [Moles/Vol] 10.2 mmol/L Normal [facility] Comment on above: Performed By: #### C MP, TSH, BNP #### [facility] [address] [place] [address] Dr. Rachel Cortez AST [Catalytic activity/Vol] 20 U/L Normal 15-[address] [facility] Comment on above: Performed By: #### C MP, TSH, BNP #### [facility] [address] [place] [address] Dr. Rachel Cortez Bilirubin [Mass/Vol] 0.3 mg/dL Normal 0.2-1.[address] [facility] Comment on above: Performed By: #### C MP, TSH, BNP #### [facility] [address] [place] [address] Dr. Rachel Cortez Calcium [Mass/Vol] 9.8 mg/dL Normal 8.5-10.1 [facility] Comment on above: Performed By: #### C MP, TSH, BNP #### [facility] [address] [place] [address] Dr. Rachel Cortez Chloride [Moles/Vol] 105 mmol/L Normal 98-[address] [facility] Comment on above: Performed By: #### C MP, TSH, BNP #### [facility] [address] [place] [address] Dr. Rachel Cortez CO2 [Moles/Vol] 29.9 mmol/L Normal 21.0-32.0 [facility] Comment on above: Performed By: #### C MP, TSH, BNP #### [facility] [address] [address] [address] Rachel Cortez Creatinine [Mass/Vol] 1.19 mg/dL Normal 0.70-1.[address] [facility] Comment on above: Performed By: #### C MP, TSH, BNP #### [facility] [address] [address] [address] Rachel Cortez EGFR-AF BHUTANESE >60 Normal >=60 [facility] Comment on above: Performed By: #### C MP, TSH, BNP #### [facility] [address] [address] [address] Rachel Cortez EGFR-NON AF BHUTANESE >60 Normal >=[address] [facility] Comment on above: Performed By: #### C MP, TSH, BNP #### [facility] [address] [address] [address] Rachel Cortez Globulin (S) [Mass/Vol] 3.4 g/dL Normal [facility] Comment on above: Performed By: #### C MP, TSH, BNP #### [facility] [address] [address] [address] Rachel Cortez Glucose [Mass/Vol] 105 mg/dL Normal 74-106 [facility] Comment on above: Performed By: #### C MP, TSH, BNP #### [facility] [address] [address] [address] Rachel Cortez Potassium [Moles/Vol] 4.1 mmol/L Normal 3.5-5.[address] [facility] Comment on above: Performed By: #### C MP, TSH, BNP #### [facility] [address] [address] [address] Rachel Cortez Protein [Mass/Vol] 7.4 g/dL Normal 6.4-8.2 [facility] Comment on above: Performed By: #### C MP, TSH, BNP #### [facility] [address] [address] [address] Rachel Cortez Sodium [Moles/Vol] 141 mmol/L Normal 136-145 [facility] Comment on above: Performed By: #### C MP, TSH, BNP #### [facility] [address] [address] [address] Rachel Cortez Urea nitrogen [Mass/Vol] 16.0 mg/dL Normal 7.0-18.[address] [facility] Comment on above: Performed By: #### C MP, TSH, BNP #### [facility] [address] [address] [address] Rachel Cortez Urea nitrogen/Creatinin e [Mass ratio] 13.4 mg/mg Normal [facility] Comment on above: Performed By: #### C MP, TSH, BNP #### [facility] [address] [address] [address] Rachel Cortez TSHon 08-29-2022 TSH 0.978 uIU/mL Normal 0.358-3.740 [facility] Comment on above: Performed By: #### I NSULIN #### [facility] [address] [place] [address] FACIAL BONES WO [...] WILFRID CAMARENA Date: 2022-08-11 18:[address] [facility] CT HEAD WO CONon 08-11-2022 CT [...] MARLYS MUNOZ Date: 2022-08-11 19:[address] [facility] INSULINon 05-09-2022 Insulin 9.9 uIU/mL Normal 2.6-24.[address] [facility] Comment on above: Performed By: #### I NSULIN #### [facility] [address] [place] [address] Dr. Rachel Cortez CBC AUTO DIFFon 05-07-2022 BASO # 0.1 103/ul Normal 0.0-0.[address] [facility] Comment on above: Performed By: #### I NSULIN #### [facility] [address] [place] [address] Dr. Rachel Cortez Basophils/100 WBC (Bld) 0.7 % Normal 0.2-2.[address] [facility] Comment on above: Performed By: #### I NSULIN #### [facility] [address] [place] [address] Dr. Rachel Cortez EO # 0.0 103/ul Normal 0.0-0.[address] [facility] Comment on above: Performed By: #### I NSULIN #### [facility] [address] [place] [address] Dr. Rachel Cortez Eosinophils/100 WBC (Bld) 0.1 % Critically low 0.9-7.[address] [facility] Comment on above: Performed By: #### I NSULIN #### [facility] [address] [place] [address] Dr. Rachel Cortez Erythrocyte distribution width (RBC) [Ratio] 12.2 % Normal 11.0-15.[address] [facility] Comment on above: Performed By: #### I NSULIN #### [facility] [address] [place] [address] Dr. Rachel Cortez Hematocrit (Bld) [Volume fraction] 41.1 % Critically low 42.0-54.[address] [facility] Comment on above: Performed By: #### I NSULIN #### [facility] [address] [place] [address] Dr. Rachel Cortez Hemoglobin (Bld) [Mass/Vol] 14.1 g/dL Normal 14.0-18.[address] [facility] Comment on above: Performed By: #### I NSULIN #### [facility] [address] [place] [address] Dr. Rachel Cortez IG # 0.03 10e3/ul Normal 0.00-0.[address] [facility] Comment on above: Performed By: #### I NSULIN #### [facility] [address] [place] [address] Dr. Rachel Cortez IG % 0.4 % Normal 0.0-0.[address] [facility] Comment on above: Performed By: #### I NSULIN #### [facility] [address] [place] [address] Dr. Rachel Cortez LYMPH # 2.3 103/ul Normal 1.2-3.[address] [facility] Comment on above: Performed By: #### I NSULIN #### [facility] [address] [place] [address] Dr. Rachel Cortez Lymphocytes/100 WBC (Bld) 30.8 % Normal 20.5-60.[address] [facility] Comment on above: Performed By: #### I NSULIN #### [facility] [address] [place] [address] Dr. Rachel Cortez MANUAL DIFF REQ NO Normal [facility] Comment on above: Performed By: #### I NSULIN #### [facility] [address] [address] [address] Rachel Cortez MCH (RBC) [Entitic mass] 29.9 pg Normal 25.9-34.[address] [facility] Comment on above: Performed By: #### I NSULIN #### [facility] [address] [place] [address] Dr. Rachel Cortez MCHC (RBC) [Mass/Vol] 34.3 g/dL Normal 29.9-35.[address] [facility] Comment on above: Performed By: #### I NSULIN #### [facility] [address] [place] [address] Dr. Rachel Cortez MCV (RBC) [Entitic vol] 87.3 fL Normal 80.0-94.[address] [facility] Comment on above: Performed By: #### I NSULIN #### [facility] [address] [place] [address] Dr. Rachel Cortez MONO # 0.7 103/ul Normal 0.3-0.[address] [facility] Comment on above: Performed By: #### I NSULIN #### [facility] [address] [place] [address] Dr. Rachel Cortez Monocytes/100 WBC (Bld) 8.9 % Normal 1.7-12.[address] [facility] Comment on above: Performed By: #### I NSULIN #### [facility] [address] [place] [address] Dr. Rachel Cortez NEUT # 4.3 103/ul Normal 1.4-6.[address] [facility] Comment on above: Performed By: #### I NSULIN #### [facility] [address] [place] [address] Dr. Rachel Cortez Neutrophils/100 WBC (Bld) 59.1 % Normal 43.0-75.[address] [facility] Comment on above: Performed By: #### I NSULIN #### [facility] [address] [place] [address] Dr. Rachel Cortez Platelet mean volume (Bld) [Entitic vol] 9.9 fL Normal 9.5-13.[address] [facility] Comment on above: Performed By: #### I NSULIN #### [facility] [address] [address] [address] Rachel Cortez PLT 184 103/ul Normal 150-[address] [facility] Comment on above: Performed By: #### I NSULIN #### [facility] [address] [address] [address] Rachel Cortez RBC 4.71 106/ul Normal 4.70-6.[address] [facility] Comment on above: Performed By: #### I NSULIN #### [facility] [address] [address] [address] Rachel Cortez WBC 7.3 103/ul Normal 4.0-11.[address] [facility] Comment on above: Performed By: #### I NSULIN #### [facility] [address] [place] [address] Dr. Rachel Cortez CULTURE URINEon 05-07-2022 CULTURE URINE Culture Observations : LIGHT GROWTH OF MIXED SKIN NILES. NO POTENTIAL PATHOGENS SEEN. Normal [facility] Comment on above: Performed By: #### I NSULIN #### [facility] [address] [address] [address] Rachel Cortez FREE THYROXINE INDEX T7on FTI 2.07 Normal 1.30-4.[address] [facility] Comment on above: Performed By: #### I NSULIN #### [facility] [address] [place] [address] Dr. Rachel Cortez T3U 35.0 % Normal 33.0-40.[address] [facility] Comment on above: Performed By: #### I NSULIN #### [facility] [address] [address] [address] Rachel Cortez T4 [Mass/Vol] 5.90 ug/dL Normal 4.50-12.10 [facility] Comment on above: Performed By: #### I NSULIN #### [facility] [address] [place] [address] Dr. Rachel Cortez GLYCOHEMOGLOBIN A1Con 01-14- 2023 ADA RECOMMENDATION SEE BELOW Normal [facility] Comment on above: Result Comment: ADA RECOMMENDED LIMIT 4.0 - 6.0 ADA THERAPEUTIC TARGET < 7.0 ACTION SUGGESTED > 7.0 Performed By: #### A 1C #### [facility] [address] [place] [address] Dr. Rachel Cortez Glucose [Mass/Vol] 100 mg/dL Normal [facility] Comment on above: Performed By: #### A 1C #### [facility] [address] [place] [address] Dr. Rachel Cortez HbA1c (Bld) [Mass fraction] 5.1 % Normal 4.5-6.[address] [facility] Comment on above: Performed By: #### A 1C #### [facility] [address] [place] [address] Dr. Rachel Cortez IRONon 05-07-2022 Iron [Mass/Vol] 104.0 ug/dL Normal 65.0-175.0 [facility] Comment on above: Performed By: #### I NSULIN #### [facility] [address] [place] [address] Dr. Rachel Cortez LIPID PROFILEon 05-07-2022 CHOL-HDL RATIO NORM SEE BELOW Normal [facility] Comment on above: Result Comment: 3.3 - 4.4 LOW RISK 4.4 - 7.1 AVERAGE RISK 7.1 - 11.0 MODERATE RISK >11.0 HIGH RISK Performed By: #### C MP, LIPID #### [facility] [address] [place] [address] Dr. Rachel Cortez Cholesterol [Mass/Vol] 147 mg/dL Normal <=[address] [facility] Comment on above: Performed By: #### C MP, LIPID #### [facility] [address] [place] [address] Dr. Rachel Cortez Cholesterol in HDL [Mass/Vol] 56 mg/dL Normal 40-[address] [facility] Comment on above: Performed By: #### C MP, LIPID #### [facility] [address] [place] [address] Dr. Rachel Cortez Cholesterol in LDL [Mass/Vol] 77.8 mg/dL Normal [facility] Comment on above: Performed By: #### C MP, LIPID #### [facility] [address] [address] [address] Rachel Cortez Cholesterol.total/ Cholesterol in HDL [Mass ratio] 2.6 {ratio} Normal [facility] Comment on above: Performed By: #### C MP, LIPID #### [facility] [address] [address] [address] Rachel Cortez HDL NORMAL > or = 60 mg/dl - LO W CARDIOVASCULAR RISK <40 mg/dl - HIGH CARDIOVASCULAR RISK Normal [facility] Comment on above: Performed By: #### C MP, LIPID #### [facility] [address] [address] [address] Rachel Cortez LDL CALC NORMAL SEE BELOW Normal [facility] Comment on above: Result Comment: <100 mg/dl OPTIMAL 100 - 129 mg/dl NEAR OR ABOVE OPTIMAL 130 - 159 mg/dl BORDERLINE HIGH 160 - 189 mg/dl HIGH >190 mg/dl VERY HIGH Performed By: #### C MP, LIPID #### [facility] [address] [place] [address] Dr. Rachel Cortez Triglyceride [Mass/Vol] 66 mg/dL Normal <=[address] [facility] Comment on above: Performed By: #### C MP, LIPID #### [facility] [address] [place] [address] Dr. Rachel Cortez VLDL CALC 13.2 mg/dL Normal [facility] Comment on above: Performed By: #### C MP, LIPID #### [facility] [address] [place] [address] Dr. Rachel Cortez PROF 14(COMP METB)on 023 Albumin [Mass/Vol] 4.0 g/dL Normal 3.4-5.0 [facility] Comment on above: Performed By: #### C MP, LIPID #### [facility] [address] [place] [address] Dr. Rachel Cortez Albumin/Globulin [Mass ratio] 1.3 {ratio} Normal [facility] Comment on above: Performed By: #### C MP, LIPID #### [facility] [address] [address] [address] Rachel Cortez ALP [Catalytic activity/Vol] 86 U/L Normal 46-[address] [facility] Comment on above: Performed By: #### C MP, LIPID #### [facility] [address] [place] [address] Dr. Rachel Cortez ALT [Catalytic activity/Vol] 35 U/L Normal 16-[address] [facility] Comment on above: Performed By: #### C MP, LIPID #### [facility] [address] [place] [address] Dr. Rachel Cortez Anion gap [Moles/Vol] 9.9 mmol/L Normal [facility] Comment on above: Performed By: #### C MP, LIPID #### [facility] [address] [place] [address] Dr. Rachel Cortez AST [Catalytic activity/Vol] 22 U/L Normal 15-[address] [facility] Comment on above: Performed By: #### C MP, LIPID #### [facility] [address] [place] [address] Dr. Rachel Cortez Bilirubin [Mass/Vol] 0.4 mg/dL Normal 0.2-1.[address] [facility] Comment on above: Performed By: #### C MP, LIPID #### [facility] [address] [place] [address] Dr. Rachel Cortez Calcium [Mass/Vol] 10.1 mg/dL Normal 8.5-10.1 [facility] Comment on above: Performed By: #### C MP, LIPID #### [facility] [address] [place] [address] Dr. aRchel Cortez Chloride [Moles/Vol] 107 mmol/L Normal 98-[address] [facility] Comment on above: Performed By: #### C MP, LIPID #### [facility] [address] [address] [address] Rachel Cortez CO2 [Moles/Vol] 30.0 mmol/L Normal 21.0-32.0 [facility] Comment on above: Performed By: #### C MP, LIPID #### [facility] [address] [place] [address] Dr. Rachel Cortez Creatinine [Mass/Vol] 1.16 mg/dL Normal 0.70-1.[address] [facility] Comment on above: Performed By: #### C MP, LIPID #### [facility] [address] [place] [address] Dr. Rachel Cortez EGFR-AF BHUTANESE >60 Normal >=60 [facility] Comment on above: Performed By: #### C MP, LIPID #### [facility] [address] [place] [address] Dr. Rachel Cortez EGFR-NON AF BHUTANESE >60 Normal >=[address] [facility] Comment on above: Performed By: #### C MP, LIPID #### [facility] [address] [place] [address] Dr. Rachel Cortez Globulin (S) [Mass/Vol] 3.0 g/dL Normal [facility] Comment on above: Performed By: #### C MP, LIPID #### [facility] [address] [place] [address] Dr. Rachel Cortez Glucose [Mass/Vol] 88 mg/dL Normal 74-106 [facility] Comment on above: Performed By: #### C MP, LIPID #### [facility] [address] [place] [address] Dr. Rachel Cortez Potassium [Moles/Vol] 3.9 mmol/L Normal 3.5-5.[address] [facility] Comment on above: Performed By: #### C MP, LIPID #### [facility] [address] [place] [address] Dr. Rachel Cortez Protein [Mass/Vol] 7.0 g/dL Normal 6.4-8.2 [facility] Comment on above: Performed By: #### C MP, LIPID #### [facility] [address] [place] [address] Dr. Rachel Cortez Sodium [Moles/Vol] 143 mmol/L Normal 136-145 [facility] Comment on above: Performed By: #### C MP, LIPID #### [facility] [address] [place] [address] Dr. Rachel Cortez Urea nitrogen [Mass/Vol] 16.0 mg/dL Normal 7.0-18.[address] [facility] Comment on above: Performed By: #### C MP, LIPID #### [facility] [address] [place] [address] Dr. Rachel Cortez Urea nitrogen/Creatinin e [Mass ratio] 13.8 mg/mg Normal [facility] Comment on above: Performed By: #### C MP, LIPID #### [facility] [address] [place] [address] Dr. Rachel Cortez TSHon 05-07-2022 TSH 2.417 uIU/mL Normal 0.358-3.740 [facility] Comment on above: Performed By: #### I NSULIN #### [facility] [address] [place] [address] Dr. Rachel Cortez UA RANDOM W/MICROSCOPICon BACTERIA NONE SEEN Normal NONE SEEN [facility] Comment on above: Performed By: #### I NSULIN #### [facility] [address] [place] [address] Dr. Rachel Cortez Bilirubin Ql (U) Negative Normal NEGATIVE [facility] Comment on above: Performed By: #### I NSULIN #### [facility] [address] [place] [address] Dr. Rachel Cortez CAST NONE SEEN Normal NONE SEEN [facility] Comment on above: Performed By: #### I NSULIN #### [facility] [address] [place] [address] Dr. Rachel Cortez Clarity (U) CLEAR Normal CLEAR [facility] Comment on above: Performed By: #### I NSULIN #### [facility] [address] [place] [address] Dr. Rachel Cortze Color (U) YELLOW Normal YELLOW [facility] Comment on above: Performed By: #### I NSULIN #### [facility] [address] [place] [address] Dr. Rachel Cortez Crystals LM Nom (Urine sed) NONE SEEN Normal NONE SEEN [facility] Comment on above: Performed By: #### I NSULIN #### [facility] [address] [address] [address] Rachel Cortez Epithelial cells LM Ql (Urine sed) NONE SEEN Normal NONE SEEN /RARE [facility] Comment on above: Performed By: #### I NSULIN #### [facility] [address] [address] [address] Rachel Cortez Glucose Ql (U) Negative Normal NEGATIVE [facility] Comment on above: Performed By: #### I NSULIN #### [facility] [address] [place] [address] Dr. Rachel Cortez Hemoglobin Ql (U) Negative Normal NEGATIVE [facility] Comment on above: Performed By: #### I NSULIN #### [facility] [address] [place] [address] Dr. Rachel Cortez Ketones Ql (U) Negative Normal NEGATIVE [facility] Comment on above: Performed By: #### I NSULIN #### [facility] [address] [place] [address] Dr. Rachel Cortez LEUKOCYTES Negative Normal NEGATIVE [facility] Comment on above: Performed By: #### I NSULIN #### [facility] [address] [address] [address] Rachel Cortez MUCOUS MODERATE Abnormal NONE SEEN [facility] Comment on above: Performed By: #### I NSULIN #### [facility] [address] [place] [address] Dr. Rachel Cortez Nitrite Ql (U) Negative Normal NEGATIVE [facility] Comment on above: Performed By: #### I NSULIN #### [facility] [address] [place] [address] Dr. Rachel Cortez pH (U) 6.0 [pH] Normal 5-[address] [facility] Comment on above: Performed By: #### I NSULIN #### [facility] [address] [place] [address] Dr. Rachel Cortez RBC NONE SEEN Abnormal 0-[address] [facility] Comment on above: Performed By: #### I NSULIN #### [facility] [address] [place] [address] Dr. Rachel Cortez SPEC GRAVITY 1.030 Abnormal 1.005-<=1.[address] [facility] Comment on above: Performed By: #### I NSULIN #### [facility] [address] [place] [address] Dr. Rachel Cortez UA PROTEIN Negative Normal NEGATIVE/ TRACE [facility] Comment on above: Performed By: #### I NSULIN #### [facility] [address] [address] [address] Rachel Cortez Urobilinogen Qn (U) 1.0 {Colby'U}/dL Normal 0.2 - 1.[address] [facility] Comment on above: Performed By: #### I NSULIN #### [facility] [address] [place] [address] Dr. Rachel Cortez WBC NONE SEEN Normal NONE SEEN [facility] Comment on above: Performed By: #### I NSULIN #### [facility] [address] [place] [address] Dr. Rachel Cortez XR LSPINE MIN 4 [...] [facility]INA [facility]IN Date: 2022-05-06 16:[address] [facility] Vital Signs Date Time Vital Sign Value Performing Clinician Facility 02-26-2024 16:31-0500 Diastolic blood pressure 93 mm[Hg] Julio Mckinley [facility] 02-26-2024 16:31-0500 Heart rate 65 /min Julio Mckinley [facility] 02-26-2024 16:31-0500 Mean blood pressure 104 mm[Hg] Kim Sarmini [facility] 02-26-2024 16:31-0500 Respiratory rate 16 /min Kim Sarmini [facility] 02-26-2024 16:31-0500 SaO2% (BldA) [Mass fraction] 100 % Kim Sarmini [facility] 02-26-2024 16:31-0500 Systolic blood pressure 126 mm[Hg] Kim Sarmini [facility] 02-26-2024 16:16-0500 Body temperature 98.24 [degF] Kim Sarmini [facility] 02-26-2024 16:16-0500 Diastolic blood pressure 78 mm[Hg] Kim Sarmini [facility] 02-26-2024 16:16-0500 Heart rate 59 /min Kmi Sarmini [facility] 02-26-2024 16:16-0500 Mean blood pressure 85 mm[Hg] Kim Sarmini [facility] 02-26-2024 16:16-0500 Respiratory rate 18 /min Kim Sarmini [facility] 02-26-2024 16:16-0500 SaO2% (BldA) [Mass fraction] 99 % Kim Sarmini [facility] 02-26-2024 16:16-0500 Systolic blood pressure 98 mm[Hg] Kim Sarmini [facility] 02-26-2024 16:10-0500 Diastolic blood pressure 63 mm[Hg] Kim Sarmini [facility] 02-26-2024 16:10-0500 Heart rate 56 /min Kim Sarmini [facility] 02-26-2024 16:10-0500 Respiratory rate 18 /min Kim Sarmini [facility] 02-26-2024 16:10-0500 SaO2% (BldA) [Mass fraction] 99 % Kim Sarmini [facility] 02-26-2024 16:10-0500 Systolic blood pressure 102 mm[Hg] Kim Sarmini [facility] 02-26-2024 16:05-0500 Respiratory rate 18 /min Kim Sarmini [facility] 02-26-2024 13:57-0500 Blood Pressure Location Kim Sarmini [facility] 02-26-2024 13:57-0500 Body temperature 98.24 [degF] Kim Sarmini [facility] 02-26-2024 13:57-0500 Respiratory rate 16 /min Kim Sarmini [facility] 02-01-2024 14:42-0400 Blood Pressure Location Kim Sarmini [facility] 02-01-2024 14:42-0400 Diastolic blood pressure 78 mm[Hg] Kim Sarmini [facility] 02-01-2024 14:42-0400 Heart rate 80 /min Kim Sarmini [facility] 02-01-2024 14:42-0400 Respiratory rate 18 /min Kim Sarmini [facility] 02-01-2024 14:42-0400 Systolic blood pressure 108 mm[Hg] Kim Sarmini [facility] 08-02-2023 15:48-0400 Body height 177.8 cm Ji Fajardo MD Work Phone: [facility] 08-02-2023 15:48-0400 Body weight 72.45 kg Ji Fajardo MD Work Phone: [facility] 08-02-2023 15:48-0400 Diastolic blood pressure 74 mm[Hg] Ji Fajardo MD Work Phone: [facility] 08-02-2023 15:48-0400 Heart rate 74 /min Ji Fajardo MD Work Phone: [facility] 08-02-2023 15:48-0400 Respiratory rate 18 /min Ji Fajardo MD Work Phone: [facility] 08-02-2023 15:48-0400 SaO2% (BldA) [Mass fraction] 98 % Ji Fajardo MD Work Phone: [facility] 08-02-2023 15:48-0400 Systolic blood pressure 115 mm[Hg] iJ Fajardo MD Work Phone: [facility] Encounters Encounter Date Encounter Type Care Provider Facility Start: 03-11-2024 End: 03-11-2024 ambulatory Kim Talal Sarmini Facility:[facility] Start: 03-11-2024 End: 03-11-2024 Patient encounter procedure Kim Talal Sarmini [facility] Start: 02-26-2024 End: 02-26-2024 ambulatory Kim Talal Sarmini [facility] Start: 02-26-2024 End: 02-26-2024 Patient encounter procedure Kim Talal Lilianamini [facility] Start: 02-09-2024 End: 02-09-2024 Documentation procedure Magda Emmanuel PHYSICIAN [facility] Start: 02-08-2024 End: 02-08-2024 Documentation procedure Magda Emmanuel PHYSIC[facility] [employer] [facility] Comment on above: Lead toxicity, accid ental or unintentional, initial encounter (Primary Dx) Start: 02-01-2024 End: 02-01-2024 ambulatory Kim Talal Lilianamini Facility:[facility] Start: 02-01-2024 End: 02-01-2024 Patient encounter procedure Kim Talal Sarmini [facility] Start: 01-05-2024 ambulatory Kim Lilianamini Facili ty:[facility] Start: 01-02-2024 ambulatory Kim Sarmini Facili ty:[facility] Start: 12-18-2023 End: 12-19-2023 [facility] Start: 08-10-2023 End: 08-10-2023 ambulatory JI MCGILLFORTH Facility:[facility] Start: 08-10-2023 End: 08-10-2023 ambulatory Jean Av PT Work Phone: Physical Therapy Comment on above: Dizziness Start: 08-08-2023 End: 08-08-2023 ambulatory JAMAR STOCK [facility] Start: 08-04-2023 Telephone encounter Ji Magdaleno [facility] Comment on above: Workers comp Start: 08-03-2023 End: 08-03-2023 ambulatory JI FAJARDO Facility:[facility] Start: 08-03-2023 End: 08-03-2023 Subsequent hospital visit by physician [facility] (1.5t) Work Phone: Radiology Comment on above: Worsening headaches [R51.9] Start: 08-02-2023 End: 08-02-2023 ambulatory JI FAJARDO Facility:[facility] Start: 08-02-2023 End: 08-02-2023 Office outpatient new 45 minutes Ji Fajardo MD Work Phone: Neurology Headache [facility] Comment on above: Worsening headaches (Primary Dx); Dizziness; Toxic effect of lead, accidental or unintentional, initial encounter Start: 08-02-2023 Telephone encounter Ji Magdaleno 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 Comment on above: Referral Request Start: 06-21-2023 End: 06-21-2023 ambulatory OLLIE [facility] Start: 06-20-2023 End: 06-20-2023 ambulatory INDU VOGT [facility] Start: 06-02-2023 End: 06-03-2023 ambulatory JOHN MEEKS [facility] Start: 06-01-2023 End: 06-03-2023 Emergency department patient visit MAINE BURGOS [facility] Start: 06-01-2023 End: 06-02-2023 ambulatory IRENA Troncoso Tre [facility] Start: 09-01-2022 End: 09-02-2022 ambulatory [...] Date Procedure Procedure Detail Performing Clinician Start: 02-26-2024 Colonoscopy Julio Mckinley Start: 02-26-2024 Esophagogastroduodenoscopy Julio chavez Start: 08-03-2023 Mri brain brain stem w/o w/contrast material Ji Fajardo MD Work Phone: Start: 05-07-[address] IRENA JEFFERY . Comment on above: Performed By: #### LEADA #### [facility] [address] [place] [address] Dr. Rachel Cortez Plan of Treatment Date Care Activity Detail Author Start: 06-02-2026 Diabetes Screening Diabetes Screenin [facility] Start: 06-02-2024 Adult BMI Screening Adult BMI Screen ing [facility] Start: 06-01-2024 Tobacco Screening Tobacco Screening [facility] Start: 12-24-2023 Covid-19 Vaccine () Covid-19 Vaccine () 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 Start: 07-29-2023 Screening for malign ant neoplasm of colon [facility] Start: 04-24-2023 Behavioral Health Screening Behavioral Health Screening [facility] Start: 12-23-2022 Covid-19 Vaccine ( season) Covid-19 Vaccine () [facility] Start: 2013 Lipid panel Lipid Screening [facility] Start: 1997 DTaP,Tdap and Td Vac cines ( - Tdap) DTaP,Tdap and Td Vaccines ( - Tdap) [facility] Start: 1997 Hepatitis B Vaccine (1 of 3 - 19+ 3-dose series) Hepatitis B Vaccine (1 of 3 - 19+ 3-dose series) [facility] Start: 1997 Urine microalbumin profile DTaP,Tdap,Td Vaccine (1 - Tdap) [facility] Start: 1996 Anxiety Screening Anxiety Screening [facility] Start: 1996 Depression Screening Depression Scre ening [facility] Start: 1996 Hepatitis C screening Hepatitis C Sc reening [facility] Start: 1996 HIV screening HIV Screening [facility] Start: 1990 Depression Screening Depression Scre ening [facility] Payers Date Payer Category Payer Unknown [id number] 2022 Unknown [id number] 2022 Unknown [id number] 2022 Commercial Managed C [facility] [employer] [employer] [id number] 2020 Self-pay 1978 Unknown [id number]. 593 1978 Unknown [id number] [id number]. 593 1978 Unknown [id number] [id number]. 593 1978 Unknown [id number] [id number]. 593 1978 Unknown [id number] [id number]. 593 1978 Unknown [id number] [id number]. 593 1978 Unknown [id number] [id number]. 1286 1978 Unknown [id number] [id number]. 1286 1978 Unknown [id number] [id number]. 1286 1978 Unknown [id number] 2.16.840.1.714466.3.579.2. 727 1978 Unknown [id number] 2.16.840.1.455487.3.579.2. 727 1978 Unknown [id number] 2.16.840.1.218011.3.579.2. 727 1978 Unknown [id number] [id number]. 727 1959 Unknown [id number] Social History Date Type Detail [facility] Start: 1980 Sex Assigned At Not on file [facility] Start: 10-03-2018 End: 08-02-2023 Gender identity Not on file [facility] Start: 08-02-2023 End: 02-01-2024 Tobacco smoking status NHIS Never smoked tobacco [facility] Start: 06-01-2023 End: 08-02-2023 Tobacco use and exposure Smokeless tobacco non-user [facility] Start: 10-03-2018 End: 08-02-2023 History of Social function [facility] National Score (1-100), lower number is lower risk 73 [facility] Start: 06-01-2023 Alcoholic beverage intake Ex-drinker (finding) [facility] Start: 11-27-2014 [facility] (finding[facility] Goals Date Patient Goal Desired Activity /State Personal health goal Comment on above: Formatting of this n ote might be different from the original. Evaluation of progress towards goal: awaiting test results Functional Status Date Assessment Result Facility 02-26-2024 Functional Status N/A [facility] 02-01-2024 Functional Status N/A [facility] Clinical Notes 06-20-2023 to 02-26-2024 Note Date & Type Note Facility 02-26-2024 Hospital Discharge instructions Patient Education 02/26/2024 16:20:34 Hiatal Hernia Hiatal Hernia A hiatal hernia occurs when part of the stomach slides above the muscle that separates the abdomen from the chest (diaphragm). A person can be born with a hiatal hernia (congenital), or it may develop over time. In almost all cases of hiatal hernia, only the top part of the stomach pushes through the diaphragm. Many people have a hiatal hernia with no symptoms. The larger the hernia, the more likely it is that you will have symptoms. In some cases, a hiatal hernia allows stomach acid to flow back into the tube that carries food from your mouth to your stomach (esophagus). This may cause heartburn symptoms. The development of heartburn symptoms may mean that you have a condition called gastroesophageal reflux disease (GERD). What are the causes? This condition is caused by a weakness in the opening (hiatus) where the esophagus passes through the diaphragm to attach to the upper part of the stomach. A person may be born with a weakness in the hiatus, or a weakness can develop over time. What increases the risk? This condition is more likely to develop in: Older people. Age is a major risk factor for a hiatal hernia, especially if you are over the age of 50. women. People who are overweight. People who have frequent constipation. What are the signs or symptoms? Symptoms of this condition usually develop in the form of GERD symptoms. Symptoms include: Heartburn. Upset stomach (indigestion). Trouble swallowing. Coughing or wheezing. Wheezing is making high-pitched whistling sounds when you breathe. Sore throat. Chest pain. Nausea and vomiting. How is this diagnosed? This condition may be diagnosed during testing for GERD. Tests that may be done include: X-rays of your stomach or chest. An upper gastrointestinal (GI) series. This is an X-ray exam of your GI tract that is taken after you swallow a chalky liquid that shows up clearly on the X-ray. Endoscopy. This is a procedure to look into your stomach using a thin, flexible tube that has a tiny camera and light on the end of it. How is this treated? This condition may be treated by: Dietary and lifestyle changes to help reduce GERD symptoms. Medicines. These may include: ?Szcp-asl-hskuvoa antacids. ?Medicines that make your stomach empty more quickly. ?Medicines that block the production of stomach acid (H2 blockers). ?Stronger medicines to reduce stomach acid (proton pump inhibitors). Surgery to repair the hernia, if other treatments are not helping. If you have no symptoms, you may not need treatment. Follow these instructions at home: Lifestyle and activity Do not use any products that contain nicotine or tobacco. These products include cigarettes, chewing tobacco, and vaping devices, such as e-cigarettes. If you need help quitting, ask your health care provider. Try to achieve and maintain a healthy body weight. Avoid putting pressure on your abdomen. Anything that puts pressure on your abdomen increases the amount of acid that may be pushed up into your esophagus. ?Avoid bending over, especially after eating. ?Raise the head of your bed by putting blocks under the legs. This keeps your head and esophagus higher than your stomach. ?Do not wear tight clothing around your chest or stomach. ?Try not to strain when having a bowel movement, when urinating, or when lifting heavy objects. Eating and drinking Avoid foods that can worsen GERD symptoms. These may include: ?Fatty foods, like fried foods. ?Whitley fruits, like oranges or lemon. ?Other foods and drinks that contain acid, like orange juice or tomatoes. ?Spicy food. ?Chocolate. Eat frequent small meals instead of three large meals a day. This helps prevent your stomach from getting too full. ?Eat slowly. ?Do not lie down right after eating. ?Do not eat 1 2 hours before bed. Do not drink beverages with caffeine. These include cola, coffee, cocoa, and tea. Do not drink alcohol. General instructions Take lyrg-ihk-oszaafe and prescription medicines only as told by your health care provider. Keep all follow-up visits. Your health care provider will want to check that any new prescribed medicines are helping your symptoms. Contact a health care provider if: Your symptoms are not controlled with medicines or lifestyle changes. You are having trouble swallowing. You have coughing or wheezing that will not go away. Your pain is getting worse. Your pain spreads to your arms, neck, jaw, teeth, or back. You feel nauseous or you vomit. Get help right away if: You have shortness of breath. You vomit blood. You have bright red blood in your stools. You have black, tarry stools. These symptoms may be an emergency. Get help right away. Call 911. Do not wait to see if the symptoms will go away. Do not drive yourself to the hospital. Summary A hiatal hernia occurs when part of the stomach slides above the muscle that separates the abdomen from the chest. A person may be born with a weakness in the hiatus, or a weakness can develop over time. Symptoms of a hiatal hernia may include heartburn, trouble swallowing, or sore throat. Management of a hiatal hernia includes eating frequent small meals instead of three large meals a day. Get help right away if you vomit blood, have bright red blood in your stools, or have black, tarry stools. This information is not intended to replace advice given to you by your health care provider. Make sure you discuss any questions you have with your health care provider. Document Revised: 06/07/2022 Document Reviewed: 06/07/2022 [employer] Patient Education 2023 [employer]. 02/26/2024 16:20:33 Gastritis, Adult, Ouzi-jb-Dqpv Gastritis, Adult Gastritis is irritation and swelling (inflammation) of the stomach. There are two kinds of gastritis: Acute gastritis. This kind develops quickly. Chronic gastritis. This kind is much more common. It develops slowly and lasts for a long time. It is important to get help for this condition. If you do not get help, your stomach can bleed, and you can get sores (ulcers) in your stomach. What are the causes? This condition may be caused by: Germs that get to your stomach and cause an infection. Drinking too much alcohol. Medicines you are taking. Having too much acid in the stomach. Having a disease of the stomach. Other causes may include: An allergic reaction. Some cancer treatments (radiation). Smoking cigarettes or using products that contain nicotine or tobacco. In some cases, the cause of this condition is not known. What increases the risk? Having a disease of the intestines. Having Crohn's disease. Using aspirin or ibuprofen and other NSAIDs to treat other conditions. Stress. What are the signs or symptoms? Pain in your stomach. A burning feeling in your stomach. Feeling like you may vomit (nauseous). Vomiting or vomiting blood. Feeling too full after you eat. Weight loss. Bad breath. Blood in your poop (stool). In some cases, there are no symptoms. How is this treated? This condition is treated with medicines. The medicines that are used depend on what caused the condition. You may be given: Antibiotic medicine, if your condition was caused by an infection from germs. H2 blockers and similar medicines, if your condition was caused by too much acid in the stomach. Treatment may also include stopping the use of certain medicines, such as aspirin or ibuprofen. Follow these instructions at home: Medicines Take lopq-wym-gsgyufk and prescription medicines only as told by your doctor. If you were prescribed an antibiotic medicine, take it as told by your doctor. Do not stop taking it even if you start to feel better. Alcohol use Do not drink alcohol if: ?Your doctor tells you not to drink. ?You are , may be , or are planning to become . If you drink alcohol: ?Limit your use to: ?0 1 drink a day for women. ?0 2 drinks a day for men. ?Know how much alcohol is in your drink. In the [place] one drink equals one 12 oz bottle of beer (355 mL), one 5 oz glass of wine (148 mL), or one 1 oz glass of hard liquor (44 mL). General instructions Eat small meals often, instead of large meals. Avoid foods and drinks that make you feel worse. Drink enough fluid to keep your pee (urine) pale yellow. Talk with your doctor about ways to manage stress. You can exercise or do deep breathing, meditation, or yoga. Do not smoke or use any products that contain nicotine or tobacco. If you need help quitting, ask your doctor. Keep all follow-up visits. Contact a doctor if: Your symptoms get worse. Your stomach pain gets worse. Your symptoms go away and then come back. You have a fever. Get help right away if: You vomit blood or something that looks like coffee grounds. You have black or dark red poop. You throw up any time you try to drink fluids. These symptoms may be an emergency. Get help right away. Call your local emergency services (911 in the [place] Do not wait to see if the symptoms will go away. Do not drive yourself to the hospital. Summary Gastritis is irritation and swelling (inflammation) of the stomach. You must get help for this condition. If you do not get help, your stomach can bleed, and you can get sores (ulcers) in your stomach. You can be treated with medicines for germs or medicines to block too much acid in your stomach. This information is not intended to replace advice given to you by your health care provider. Make sure you discuss any questions you have with your health care provider. Document Revised: 08/14/2021 Document Reviewed: 08/14/2021 [employer] Patient Education 2023 [employer]. 02/26/2024 16:20:32 Endoscopy, Care After Procedure [facility] Endoscopy Care After Procedure Please read the instructions outlined below and refer to this sheet in the next few weeks. These discharge instructions provide you with general information on caring for yourself after you leave the hospital. Your doctor may also give you specific instructions. While your treatment has been planned according to the most current medical practices available, unavoidable complications occasionally occur. If you have any problems or questions after discharge, please call your doctor. ACTIVITY You may resume your regular activity but move at a slower pace for the next 24 hours. Take frequent rest periods for the next 24 hours. Walking will help expel (get rid of) the air and reduce the bloated feeling in your abdomen. No driving for 24 hours (because of the anesthesia (medicine) used during the test). You may shower. Do not sign any important legal documents or operate any machinery for 24 hours (because of the anesthesia used during the test). NUTRITION Drink plenty of fluids. You may resume your normal diet. Begin with a light meal and progress to your normal diet. Avoid alcoholic beverages for 24 hours or as instructed by your caregiver. MEDICATIONS You may resume your normal medications unless your caregiver tells you otherwise. WHAT YOU CAN EXPECT TODAY You may experience abdominal discomfort such as a feeling of fullness or gas pains. FOLLOW-UP Your doctor will discuss the results of your test with you. SEEK IMMEDIATE MEDICAL ATTENTION IF ANY OF THE FOLLOWING OCCUR: Excessive nausea (feeling sick to your stomach) and/or vomiting. Severe abdominal pain and distention (swelling). Trouble swallowing. Temperature over 100 F (37.8 C). Rectal bleeding or vomiting of blood. Document Released: 11/22/2004 Document Re-Released: 10/02/2006 [facility] Patient Information 2010 [employer]. 02/26/2024 16:20:30 Hemorrhoids, Iafv-jv-Sjbk Hemorrhoids Hemorrhoids are swollen veins that may form: In the butt (rectum). These are called internal hemorrhoids. Around the opening of the butt (anus). These are called external hemorrhoids. Most hemorrhoids do not cause very bad problems. They often get better with changes to your lifestyle and what you eat. What are the causes? Having trouble pooping (constipation) or watery poop (diarrhea). Pushing too hard when you poop. . Being very overweight (obese). Sitting for too long. Riding a bike for a long time. Heavy lifting or other things that take a lot of effort. Anal sex. What are the signs or symptoms? Pain. Itching or soreness in the butt. Bleeding from the butt. Leaking poop. Swelling. One or more lumps around the opening of your butt. How is this treated? In most cases, hemorrhoids can be treated at home. You may be told to: Change what you eat. Make changes to your lifestyle. If these treatments do not help, you may need to have a procedure done. Your doctor may need to: Place rubber bands at the bottom of the hemorrhoids to make them fall off. Put medicine into the hemorrhoids to shrink them. Shine a type of light on the hemorrhoids to cause them to fall off. Do surgery to get rid of the hemorrhoids. Follow these instructions at home: Medicines Take rtnk-zst-ohvemzq and prescription medicines only as told by your doctor. Use creams with medicine in them or medicines that you put in your butt as told by your doctor. Eating and drinking Eat foods that have a lot of fiber in them. These include whole grains, beans, nuts, fruits, and vegetables. Ask your doctor about taking products that have fiber added to them (fibersupplements). Take in less fat. You can do this by: ?Eating low-fat dairy products. ?Eating less red meat. ?Staying away from processed foods. Drink enough fluid to keep your pee (urine) pale yellow. Managing pain and swelling Take a warm-water bath (sitz bath) for 20 minutes to ease pain. Do this 3 4 times a day. You may do this in a bathtub. You may also use a portable sitz bath that fits over the toilet. If told, put ice on the painful area. It may help to use ice between your warm baths. ?Put ice in a plastic bag. ?Place a towel between your skin and the bag. ?Leave the ice on for 20 minutes, 2 3 times a day. If your skin turns bright red, take off the ice right away to prevent skin damage. The risk of damage is higher if you cannot feel pain, heat, or cold. General instructions Exercise. Ask your doctor how much and what kind of exercise is best for you. Go to the bathroom when you need to poop. Do not wait. Try not to push too hard when you poop. Keep your butt dry and clean. Use wet toilet paper or moist towelettes after you poop. Do not sit on the toilet for a long time. Contact a doctor if: You have pain and swelling that do not get better with treatment. You have trouble pooping. You cannot poop. You have pain or swelling outside the area of the hemorrhoids. Get help right away if: You have bleeding from the butt that will not stop. This information is not intended to replace advice given to you by your health care provider. Make sure you discuss any questions you have with your health care provider. Document Revised: 12/21/2022 Document Reviewed: 12/21/2022 [employer] Patient Education 2023 [employer] 02/26/2024 16:20:27 Colon Polyps Colon Polyps Colon polyps are tissue growths inside the colon, which is part of the large intestine. They are one of the types of polyps that can grow in the body. A polyp may be a round bump or a mushroom-shaped growth. You could have one polyp or more than one. Most colon polyps are noncancerous (benign). However, some colon polyps can become cancerous over time. Finding and removing the polyps early can help prevent this. What are the causes? The exact cause of colon polyps is not known. What increases the risk? The following factors may make you more likely to develop this condition: Having a family history of colorectal cancer or colon polyps. Being older than 45 years of age. Being younger than 45 years of age and having a significant family history of colorectal cancer or colon polyps or a genetic condition that puts you at higher risk of getting colon polyps. Having inflammatory bowel disease, such as ulcerative colitis or Crohn's disease. Having certain conditions passed from parent to child (hereditary conditions), such as: ?Familial adenomatous polyposis (FAP). ?Flores syndrome. ?Turcot syndrome. ?Peutz Jeghers syndrome. ?MUTYH-associated polyposis (MAP). Being overweight. Certain lifestyle factors. These include smoking cigarettes, drinking too much alcohol, not getting enough exercise, and eating a diet that is high in fat and red meat and low in fiber. Having had childhood cancer that was treated with radiation of the abdomen. What are the signs or symptoms? Many times, there are no symptoms. If you have symptoms, they may include: Blood coming from the rectum during a bowel movement. Blood in the stool (feces). The blood may be bright red or very dark in color. Pain in the abdomen. A change in bowel habits, such as constipation or diarrhea. How is this diagnosed? This condition is diagnosed with a colonoscopy. This is a procedure in which a lighted, flexible scope is inserted into the opening between the buttocks (anus) and then passed into the colon to examine the area. Polyps are sometimes found when a colonoscopy is done as part of routine cancer screening tests. How is this treated? This condition is treated by removing any polyps that are found. Most polyps can be removed during a colonoscopy. Those polyps will then be tested for cancer. Additional treatment may be needed depending on the results of testing. Follow these instructions at home: Eating and drinking Eat foods that are high in fiber, such as fruits, vegetables, and whole grains. Eat foods that are high in calcium and vitamin D, such as milk, cheese, yogurt, eggs, liver, fish, and broccoli. Limit foods that are high in fat, such as fried foods and desserts. Limit the amount of red meat, precooked or cured meat, or other processed meat that you eat, such as hot dogs, sausages, king, or meat loaves. Limit sugary drinks. Lifestyle Maintain a healthy weight, or lose weight if recommended by your health care provider. Exercise every day or as told by your health care provider. Do not use any products that contain nicotine or tobacco, such as cigarettes, e-cigarettes, and chewing tobacco. If you need help quitting, ask your health care provider. Do not drink alcohol if: ?Your health care provider tells you not to drink. ?You are , may be , or are planning to become . If you drink alcohol: ?Limit how much you use to: ?0 1 drink a day for women. ?0 2 drinks a day for men. ?Know how much alcohol is in your drink. In the [place] one drink equals one 12 oz bottle of beer (355 mL), one 5 oz glass of wine (148 mL), or one 1 oz glass of hard liquor (44 mL). General instructions Take ikwz-oog-bmhyjlf and prescription medicines only as told by your health care provider. Keep all follow-up visits. This is important. This includes having regularly scheduled colonoscopies. Talk to your health care provider about when you need a colonoscopy. Contact a health care provider if: You have new or worsening bleeding during a bowel movement. You have new or increased blood in your stool. You have a change in bowel habits. You lose weight for no known reason. Summary Colon polyps are tissue growths inside the colon, which is part of the large intestine. They are one type of polyp that can grow in the body. Most colon polyps are noncancerous (benign), but some can become cancerous over time. This condition is diagnosed with a colonoscopy. This condition is treated by removing any polyps that are found. Most polyps can be removed during a colonoscopy. This information is not intended to replace advice given to you by your health care provider. Make sure you discuss any questions you have with your health care provider. Document Revised: 07/29/2020 Document Reviewed: 07/29/2020 [employer] Patient Education 2023 [employer]. 02/26/2024 16:20:26 Colonoscopy, Care After Surgery [facility]) Colonoscopy Care After Surgery Please read the instructions outlined below and refer to this sheet in the next few weeks. These discharge instructions provide you with general information on caring for yourself after you leave the hospital. Your doctor may also give you specific instructions. While your treatment has been planned according to the most current medical practices available, unavoidable complications occasionally occur. If you have any problems or questions after discharge, please call your doctor. ACTIVITY You may resume your regular activity, but move at a slower pace for the next 24 hours. Take frequent rest periods for the next 24 hours. Walking will help get rid of the air and reduce the bloated feeling in your abdomen (belly). No driving for 24 hours (because of the anesthesia (medicine) used during the test). You may shower. Do not sign any important legal documents or operate any machinery for 24 hours (because of the anesthesia used during the test). NUTRITION Drink plenty of fluids. You may resume your normal diet as instructed by your doctor. Begin with a light meal and progress to your normal diet. Heavy or fried foods are harder to digest and may make you feel nauseated (sick to your stomach). Avoid alcoholic beverages for 24 hours or as instructed. MEDICATIONS You may resume your normal medications unless your doctor tells you otherwise. WHAT YOU CAN EXPECT TODAY Some feelings of bloating in the abdomen. Passage of more gas than usual. Spotting of blood in your stool or on the toilet paper. FOLLOW-UP Your doctor will discuss the results of your test with you. SEEK IMMEDIATE MEDICAL ATTENTION IF: There is more than a spotting of blood in your stool. There is abdominal distention (your abdomen is swollen). There is vomiting. You have a temperature over 101.5 F. There is abdominal pain or discomfort that is severe or gets worse throughout the day. [facility] 02-26-2024 Note Progress Note-Physic moncho Patient: REY BAXTER Age: 43 years Sex: Male : 1980 Associated Diagnoses: None Author: Malachi Garcia MD Postoperative Information Postoperative disposition: Postoperative disposition: To PACU. Optimetrix number: Optimetrix number [id number]. Anesthetic utilized: General. Health Status Allergies: Allergic Reactions (Selected) No Known Allergies Physical Examination Vital Signs 02/26/2024 16:16 EST Temperature Temporal Artery 36.8 DegC Heart Rate Monitored 59 bpm LOW Respiratory Rate Monitored 18 br/min Systolic Blood Pressure 98 mmHg Diastolic Blood Pressure 78 mmHg Mean Arterial Pressure, Cuff 85 mmHg SpO2 99 % Pain Assessment: Controlled. General: Awake, Appropriate. Respiratory: Adequate air exchange. Cardiovascular: Stable. Neurological Assessment Anesthetic outcome No anesthetic complications noted. Adequate pain relief. Review / Management Condition: Stable. Plan Transfer/Discharge: Transfer/Discharge Discharge when meets criteria ( To home ). [facility] Comment on above: Result Comment: Elec tronically Signed By: Malachi Garcia MD\.br\Date and Time Signed: 02/26/24 16:33 EST 02-26-2024 Note Progress Note-Physic moncho Patient: REY BAXTER Age: 43 years Sex: Male : 1980 Associated Diagnoses: None Author: Malachi Garcia MD Preoperative Information Anesthesia Preop Info: Time patient last ate or drank 02/26/2024 00:00:00. Anesthesia history: Patient history: None. Family history+: None. Informed consent: Signed by patient. Re-evaluation prior to induction: Initial evaluation reviewed: No significant change. Review of Systems Eye Ear/Nose/Mouth/Throat Respiratory: Cough, mild sub acute- being evaluated, No shortness of breath. Cardiovascular: Palpitations, No chest pain, No tachycardia, No syncope. Gastrointestinal: Heartburn. Musculoskeletal Neurologic Health Status Allergies: Allergic Reactions (Selected) No Known Allergies, Allergies (1) Active Severity Reaction No Known Allergies None Documented Current medications: (Selected) Inpatient Medications Ordered Lactated Ringers IV Roxanne 1000 mL 1,000 mL: 1,000 mL, IV, 100 mL/hr, Routine, Start date 02/26/24 16:19:00 EST, 10 hour(s), Total volume (mL): 1,000, 72 kg, 1.89, m2 Sodium Chloride 0.9% IV Roaxnne 1000 mL 1,000 mL: 1,000 mL, IV, 20 mL/hr, Routine, Start date 02/26/24 6:42:00 EST, 50 hour(s), Total volume (mL): 1,000, 72 kg, 1.89, m2 Prescriptions Prescribed Bentyl 10 mg Cap: 10 mg = 1 cap(s), Oral, QID, PRN Pain, X 14 day(s), # 60 cap(s), Refills(s) 3, Pharmacy: [id number], 178, cm, 02/01/24 14:47:00 EDT, Height/Length Dosing, 72, kg, 02/01/24 14:47:00 EDT, Weight Dosing Bromfed DM oral syrup: 5 mL, Oral, QID for cold symptoms, 200 mL, Refill(s) 0 Documented Medications Documented Eliquis 5 mg oral tablet: 60 EA, 0 Refill(s), TAKE 1 TABLET BY MOUTH TWICE DAILY FOR 30 DAYS, Refills(s) 0, Blood Thinner Pantoprazole [address] Tab: 30 EA, 0 Refill(s), TAKE 1 TABLET BY MOUTH EVERY EVENING, Refills(s) 0, Control of stomach acid Pristiq 50 mg Tab-ER: 0 Refill(s), 1 (one) time each day at the same time., Refills(s) 0 aspirin 81 mg Oral EC Tab: 81 Unknown, oral, 0 Refill(s), Take 81 mg by mouth in the morning., Refills(s) 0, Prophylaxis azithromycin 250 mg Tab: 6 EA, 0 Refill(s), TAKE 2 TABLETS by mouth today, THEN take 1 TABLET once a day FOR the next 4 DAYS., Refills(s) 0 citalopram 10 mg Tab: 10 Unknown, ORAL, 0 Refill(s), Take 10 mg by mouth., Refills(s) 0 desvenlafaxine 50 mg Tab-: 30 EA, 0 Refill(s), TAKE 1 TABLET BY MOUTH DAILY, Refills(s) 0 diclofenac sodium 75 mg Oral EC Tab: 60 EA, 0 Refill(s), TAKE 1 TABLET BY MOUTH TWICE DAILY, Refills(s) 0 hydrOXYzine hydrochloride 25 mg Tab: 14 EA, 0 Refill(s), TAKE 1 TABLET BY MOUTH EVERY 8 HOURS NEEDED FOR ANXIETY, Refills(s) 0 lactulose 10 g/15 mL Oral Syrup: 1800 mL, 0 Refill(s), TAKE 30 ML BY MOUTH TWICE DAILY NEEDED, Refills(s) 0 metoprolol succinate 25 mg ER Tab: 25 Unknown, oral, 1 Refill(s), Take 1 tablet (25 mg total) by mouth in the morning., Refills(s) 0, High blood pressure nortriptyline 10 mg Cap: 30 EA, 0 Refill(s), TAKE 1 CAPSULE BY MOUTH AT BEDTIME, Refills(s) 0 propafenone 225 mg Tab: 60 EA, 0 Refill(s), TAKE 1 TABLET BY MOUTH TWICE DAILY (IN THE MORNING and AT BEDTIME), Refills(s) 0 sucralfate 1 g Tab: 40 EA, 0 Refill(s), TAKE 1 TABLET BY MOUTH FOUR TIMES DAILY ON AN EMPTY STOMACH, Refills(s) 0 tiZANidine 4 mg Tab: 30 EA, 0 Refill(s), TAKE 1 TABLET BY MOUTH AT BEDTIME DAILY NEEDED, Refills(s) 0, Home Medications (17) Active aspirin 81 mg Oral EC Tab azithromycin 250 mg Tab Bentyl 10 mg Cap 10 mg = 1 cap(s), PRN, Oral, QID Bromfed DM oral syrup 5 mL, PRN, Oral, QID citalopram 10 mg Tab desvenlafaxine 50 mg Tab- diclofenac sodium 75 mg Oral EC Tab Eliquis 5 mg oral tablet hydrOXYzine hydrochloride 25 mg Tab lactulose 10 g/15 mL Oral Syrup metoprolol succinate 25 mg ER Tab nortriptyline 10 mg Cap Pantoprazole [address] Tab Pristiq 50 mg Tab-ER propafenone 225 mg Tab sucralfate 1 g Tab tiZANidine 4 mg Tab , Medications (2) Active Scheduled: (0) Continuous: (2) Lactated Ringers 1,000 mL 1,000 mL, IV, 100 mL/hr Sodium Chloride 0.9% 1,000 mL 1,000 mL, IV, 20 mL/hr PRN: (0) Problem list: All Problems Acute cystitis / SNOMED CT 652446482 / Confirmed Atrial fibrillation / SNOMED CT 17905952 / Confirmed Blood lead level above reference range / SNOMED CT [id number] / Confirmed Gastritis / SNOMED CT [id number] / Confirmed Gastroenteritis / SNOMED CT 01180259 / Confirmed Gastroesophageal reflux disease / SNOMED CT 746336963 / Confirmed Inguinal lymphadenopathy / SNOMED CT 068058 / Confirmed Intussusception of small bowel / SNOMED CT 3661676518 / Confirmed Left lower quadrant pain / SNOMED CT 683331739 / Confirmed Lumbar radiculopathy / SNOMED CT 085315956 / Confirmed Obstructive sleep apnea syndrome / SNOMED CT 022252307 / Confirmed Osteoarthritis of knee / SNOMED CT 448837224 / Confirmed Paroxysmal atrial fibrillation / SNOMED CT 287316585 / Confirmed Pleuri (more content not included)... [facility] Comment on above: Result Comment: Elec tronically Signed By: Jose ROTH, Malachi Rojas\.br\Date and Time Signed: 02/26/24 16:33 EST 02-26-2024 Note Patient Education - Text Endoscopy Care After Procedure Please read the instructions outlined below and refer to this sheet in the next few weeks. These discharge instructions provide you with general information on caring for yourself after you leave the hospital. Your doctor may also give you specific instructions. While your treatment has been planned according to the most current medical practices available, unavoidable complications occasionally occur. If you have any problems or questions after discharge, please call your doctor. ACTIVITY ??? You may resume your regular activity but move at a slower pace for the next 24 hours. ??? Take frequent rest periods for the next 24 hours. ??? Walking will help expel (get rid of) the air and reduce the bloated feeling in your abdomen. ??? No driving for 24 hours (because of the anesthesia (medicine) used during the test). ??? You may shower. ??? Do not sign any important legal documents or operate any machinery for 24 hours (because of the anesthesia used during the test). NUTRITION ??? Drink plenty of fluids. ??? You may resume your normal diet. ??? Begin with a light meal and progress to your normal diet. ??? Avoid alcoholic beverages for 24 hours or as instructed by your caregiver. MEDICATIONS ??? You may resume your normal medications unless your caregiver tells you otherwise. WHAT YOU CAN EXPECT TODAY ??? You may experience abdominal discomfort such as a feeling of fullness or ???gas??? pains. FOLLOW-UP ??? Your doctor will discuss the results of your test with you. seek immediate medical attention if any of the following occur: ??? Excessive nausea (feeling sick to your stomach) and/or vomiting. ??? Severe abdominal pain and distention (swelling). ??? Trouble swallowing. ??? Temperature over 100 F (37.8??? C). ??? Rectal bleeding or vomiting of blood. Document Released: 11/22/2004 Document Re-Released: 10/02/2006 ExitCare??? Patient Information ???2009 [employer]. Colonoscopy Care After Surgery Please read the instructions outlined below and refer to this sheet in the next few weeks. These discharge instructions provide you with general information on caring for yourself after you leave the hospital. Your doctor may also give you specific instructions. While your treatment has been planned according to the most current medical practices available, unavoidable complications occasionally occur. If you have any problems or questions after discharge, please call your doctor. ACTIVITY You may resume your regular activity, but move at a slower pace for the next 24 hours. Take frequent rest periods for the next 24 hours. Walking will help get rid of the air and reduce the bloated feeling in your abdomen (belly). No driving for 24 hours (because of the anesthesia (medicine) used during the test). You may shower. Do not sign any important legal documents or operate any machinery for 24 hours (because of the anesthesia used during the test). NUTRITION Drink plenty of fluids. You may resume your normal diet as instructed by your doctor. Begin with a light meal and progress to your normal diet. Heavy or fried foods are harder to digest and may make you feel nauseated (sick to your stomach). Avoid alcoholic beverages for 24 hours or as instructed. MEDICATIONS You may resume your normal medications unless your doctor tells you otherwise. WHAT YOU CAN EXPECT TODAY Some feelings of bloating in the abdomen. Passage of more gas than usual. Spotting of blood in your stool or on the toilet paper. FOLLOW-UP Your doctor will discuss the results of your test with you. SEEK IMMEDIATE MEDICAL ATTENTION IF: There is more than a spotting of blood in your stool. There is abdominal distention (your abdomen is swollen). There is vomiting. You have a temperature over 101.5 F. There is abdominal pain or discomfort that is severe or gets worse throughout the day. Gastroenterology Hiatal Hernia A hiatal hernia occurs when part of the stomach slides above the muscle that separates the abdomen from the chest (diaphragm). A person can be born with a hiatal hernia (congenital), or it may develop over time. In almost all cases of hiatal hernia, only the top part of the stomach pushes through the diaphragm. Many people have a hiatal hernia with no symptoms. The larger the hernia, the more likely it is that you will have symptoms. In some cases, a hiatal hernia allows stomach acid to flow back into the tube that carries food from your mouth to your stomach (esophagus). This may cause heartburn symptoms. The development of heartburn symptoms may mean that you have a condition called gastroesophageal reflux disease (GERD). What are the causes? This condition is caused by a weakness in the opening (hiatus) where the esophagus passes through the diaphragm to attach to the upper part of the stomach. A person may be born with a weaknes (more content not included)... [facility] 02-26-2024 Note Endoscopic Procedure Report - Other Patient: REY BAXTER Age: 43 years Sex: Male : 1980 Associated Diagnoses: None Author: Julio Mckinley MD Pre-Procedure Procedure Date 02/26/2024 16:14:00 . Procedure Type: Colonoscopy with removal of tumor(s), polyp(s), or other lesion(s) by cold snare technique. Procedure provider Performed by Julio Mckinley MD. Current history and physical Documented on chart. No active procedure history items have been selected or recorded.. Past Medical History No active or resolved past medical history items have been selected or recorded.. Family History No family history items have been selected or recorded.. Procedure History No active procedure history items have been selected or recorded.. Colorectal neoplasm risk assessment Average risk. Informed Consent After discussing the rationale, risks and benefits, and alternatives to this procedure, the patient provided signed consent for the procedure. Pre-procedure diagnosis: Screening. Medications (Selected) Inpatient Medications Ordered Sodium Chloride 0.9% IV Roxanne 1000 mL 1,000 mL: 1,000 mL, IV, 20 mL/hr, Routine, Start date 02/26/24 6:42:00 EST, 50 hour(s), Total volume (mL): 1,000, 72 kg, 1.89, m2 Prescriptions Prescribed Bentyl 10 mg Cap: 10 mg = 1 cap(s), Oral, QID, PRN Pain, X 14 day(s), # 60 cap(s), Refills(s) 3, Pharmacy: [facility], 178, cm, 02/01/24 14:47:00 EDT, Height/Length Dosing, 72, kg, 02/01/24 14:47:00 EDT, Weight Dosing Bromfed DM oral syrup: 5 mL, Oral, QID for cold symptoms, 200 mL, Refill(s) 0 Documented Medications Documented Eliquis 5 mg oral tablet: 60 EA, 0 Refill(s), TAKE 1 TABLET BY MOUTH TWICE DAILY FOR 30 DAYS, Refills(s) 0, Blood Thinner Pantoprazole [address] Tab: 30 EA, 0 Refill(s), TAKE 1 TABLET BY MOUTH EVERY EVENING, Refills(s) 0, Control of stomach acid Pristiq 50 mg Tab-ER: 0 Refill(s), 1 (one) time each day at the same time., Refills(s) 0 aspirin 81 mg Oral EC Tab: 81 Unknown, oral, 0 Refill(s), Take 81 mg by mouth in the morning., Refills(s) 0, Prophylaxis azithromycin 250 mg Tab: 6 EA, 0 Refill(s), TAKE 2 TABLETS by mouth today, THEN take 1 TABLET once a day FOR the next 4 DAYS., Refills(s) 0 citalopram 10 mg Tab: 10 Unknown, ORAL, 0 Refill(s), Take 10 mg by mouth., Refills(s) 0 desvenlafaxine 50 mg Tab-: 30 EA, 0 Refill(s), TAKE 1 TABLET BY MOUTH DAILY, Refills(s) 0 diclofenac sodium 75 mg Oral EC Tab: 60 EA, 0 Refill(s), TAKE 1 TABLET BY MOUTH TWICE DAILY, Refills(s) 0 hydrOXYzine hydrochloride 25 mg Tab: 14 EA, 0 Refill(s), TAKE 1 TABLET BY MOUTH EVERY 8 HOURS NEEDED FOR ANXIETY, Refills(s) 0 lactulose 10 g/15 mL Oral Syrup: 1800 mL, 0 Refill(s), TAKE 30 ML BY MOUTH TWICE DAILY NEEDED, Refills(s) 0 metoprolol succinate 25 mg ER Tab: 25 Unknown, oral, 1 Refill(s), Take 1 tablet (25 mg total) by mouth in the morning., Refills(s) 0, High blood pressure nortriptyline 10 mg Cap: 30 EA, 0 Refill(s), TAKE 1 CAPSULE BY MOUTH AT BEDTIME, Refills(s) 0 propafenone 225 mg Tab: 60 EA, 0 Refill(s), TAKE 1 TABLET BY MOUTH TWICE DAILY (IN THE MORNING and AT BEDTIME), Refills(s) 0 sucralfate 1 g Tab: 40 EA, 0 Refill(s), TAKE 1 TABLET BY MOUTH FOUR TIMES DAILY ON AN EMPTY STOMACH, Refills(s) 0 tiZANidine 4 mg Tab: 30 EA, 0 Refill(s), TAKE 1 TABLET BY MOUTH AT BEDTIME DAILY NEEDED, Refills(s) 0 Reviewed. ASA Classification: Class II. . Monitoring: See anesthesia record. . Procedure The procedure was performed in the hospital. See anesthesia record for sedation given during procedure. The patient was positioned starting in the left lateral decubitus position. Endoscope type used was an adult-size. The endoscope was lubricated then introduced through the anus. The scope was advanced to the terminal ileum. No difficulties encountered during the procedure. The bowel preparation quality was good and was adequate (see polyps greater than or equal to 6 millimeters). The patient tolerated the procedure well. Time to Cecum: 5 min Withdrawal time 10 min Last colonoscopy: none Findings 1. Small internal hemorrhoids seen retroflexion 2. 5 mm sessile polyp in the rectum, resected with cold snare completely and retrieved. Otherwise normal colonic mucosa 3. Normal examined terminal ileum Images Procedure images: Rec_hd_video___[id number] pg Rec_hd_video___19_505.j pg Rec_hd_video__21_[id number] pg Rec_hd_video__[id number].j pg Rec_hd_video__13_[id number].j pg Rec_hd_video__12_[id number].j pg Rec1_hd_video_2023____22_128.j pg . Post-Procedure Complications: none. Nyasia (more content not included)... [facility] Comment on above: Result Comment: Elec tronically Signed By: Julio Mckinley MD\.br\Date and Time Signed: 02/26/24 16:16 EST Other Comment: Cynthia ng Attachment - attachment storage system not supported [id number] Can be viewed in source system Missing Attachment - attachment storage system not supported [id number] Can be viewed in source system Missing Attachment - attachment storage system not supported [id number] Can be viewed in source system Missing Attachment - attachment storage system not supported [id number] Can be viewed in source system Missing Attachment - attachment storage system not supported [id number] Can be viewed in source system Missing Attachment - attachment storage system not supported [id number] Can be viewed in source system Missing Attachment - attachment storage system not supported [id number] Can be viewed in source system 02-26-2024 Note Endoscopic Procedure Report - Other Patient: REY BAXTER Age: 43 years Sex: Male : 1980 Associated Diagnoses: None Author: Julio Mckinley MD Pre-Procedure Procedure Date 02/26/2024 15:55:00 . Procedure Type: Esophagogastroduodenoscopy with biopsy. Procedure provider Performed by Julio Mckinley MD. Current history and physical Documented on chart. Informed Consent After discussing the rationale, risks and benefits, and alternatives to this procedure, the patient provided signed consent for the procedure. Pre-procedure diagnosis: anemia. Medications Anticoagulant/antiplatelet None. ASA Classification: Class II. . Monitoring: See anesthesia record. . Procedure The procedure was performed in the hospital. See anesthesia record for sedation given during procedure. The patient was positioned starting in the left lateral decubitus position and with safety measures. Endoscope type used was an adult-size, introduced orally, advanced to the 3rd portion of the duodenum. No difficulty was encountered during the procedure. Views were excellent. The patient tolerated the procedure well. Findings 1. Esophageal landmarks identified, irregular Z-line, suspect medium to large sized hiatal hernia 2. Minimal patchy erythema in the stomach, random biopsies were taken to rule out H. pylori 3. Normal examined duodenum, and biopsies were taken to rule out celiac disease Images Procedure images: Rec1_hd_video_2023__T16__[id number] pg Rec1_hd_video_2023__T16__[id number].j pg Rec1_hd_video_2023__T16_[id number].j pg Rec1_hd_video_2023__T16_03_39_773.j pg Rec1_hd_video_2023__T16_02_[id number].j pg Rec1_hd_video_2023__T16_02_[id number].j pg Rec1_hd_video_2023__T16_02_[id number].j pg . Post-Procedure Complications: none. Estimated blood loss: minimal. Specimens: sent to pathology. Devices/ implants: none left in place. Impression and Plan 1. Esophageal landmarks identified, irregular Z-line, suspect medium to large sized hiatal hernia 2. Minimal patchy erythema in the stomach, random biopsies were taken to rule out H. pylori 3. Normal examined duodenum, and biopsies were taken to rule out celiac disease Recommendations: -Resume previous diet -Resume home medications -Await pathology results, follow in GI clinic in 1-2 after discharge [facility] Comment on above: Result Comment: Elec tronically Signed By: Elías ROTH, Julio Pond\.br\Date and Time Signed: 02/26/24 15:56 EST Other Comment: Cynthia johnson Attachment - attachment storage system not supported [id number] Can be viewed in source system Missing Attachment - attachment storage system not supported [id number] Can be viewed in source system Missing Attachment - attachment storage system not supported [id number] Can be viewed in source system Missing Attachment - attachment storage system not supported [id number] Can be viewed in source system Missing Attachment - attachment storage system not supported [id number] Can be viewed in source system Missing Attachment - attachment storage system not supported [id number] Can be viewed in source system Missing Attachment - attachment storage system not supported [id number] Can be viewed in source system 02-26-2024 Note History and Physical Patient: REY BAXTER Age: 43 years Sex: Male : 1980 Associated Diagnoses: None Author: Julio Mckinley MD Preoperative Information Indication for procedure and diagnosis: gerd, anemia, screening Chief Complaint as above Review of Systems All systems reviewed, negative except as mentioned above Health Status Current medications: (Selected) Inpatient Medications Ordered Sodium Chloride 0.9% IV Roxanne 1000 mL 1,000 mL: 1,000 mL, IV, 20 mL/hr, Routine, Start date 02/26/24 6:42:00 EST, 50 hour(s), Total volume (mL): 1,000, 72 kg, 1.89, m2 Prescriptions Prescribed Bentyl 10 mg Cap: 10 mg = 1 cap(s), Oral, QID, PRN Pain, X 14 day(s), # 60 cap(s), Refills(s) 3, Pharmacy: [facility], 178, cm, 02/01/24 14:47:00 EDT, Height/Length Dosing, 72, kg, 02/01/24 14:47:00 EDT, Weight Dosing Bromfed DM oral syrup: 5 mL, Oral, QID for cold symptoms, 200 mL, Refill(s) 0 Documented Medications Documented Eliquis 5 mg oral tablet: 60 EA, 0 Refill(s), TAKE 1 TABLET BY MOUTH TWICE DAILY FOR 30 DAYS, Refills(s) 0, Blood Thinner Pantoprazole [address] Tab: 30 EA, 0 Refill(s), TAKE 1 TABLET BY MOUTH EVERY EVENING, Refills(s) 0, Control of stomach acid Pristiq 50 mg Tab-ER: 0 Refill(s), 1 (one) time each day at the same time., Refills(s) 0 aspirin 81 mg Oral EC Tab: 81 Unknown, oral, 0 Refill(s), Take 81 mg by mouth in the morning., Refills(s) 0, Prophylaxis azithromycin 250 mg Tab: 6 EA, 0 Refill(s), TAKE 2 TABLETS by mouth today, THEN take 1 TABLET once a day FOR the next 4 DAYS., Refills(s) 0 citalopram 10 mg Tab: 10 Unknown, ORAL, 0 Refill(s), Take 10 mg by mouth., Refills(s) 0 desvenlafaxine 50 mg Tab-: 30 EA, 0 Refill(s), TAKE 1 TABLET BY MOUTH DAILY, Refills(s) 0 diclofenac sodium 75 mg Oral EC Tab: 60 EA, 0 Refill(s), TAKE 1 TABLET BY MOUTH TWICE DAILY, Refills(s) 0 hydrOXYzine hydrochloride 25 mg Tab: 14 EA, 0 Refill(s), TAKE 1 TABLET BY MOUTH EVERY 8 HOURS NEEDED FOR ANXIETY, Refills(s) 0 lactulose 10 g/15 mL Oral Syrup: 1800 mL, 0 Refill(s), TAKE 30 ML BY MOUTH TWICE DAILY NEEDED, Refills(s) 0 metoprolol succinate 25 mg ER Tab: 25 Unknown, oral, 1 Refill(s), Take 1 tablet (25 mg total) by mouth in the morning., Refills(s) 0, High blood pressure nortriptyline 10 mg Cap: 30 EA, 0 Refill(s), TAKE 1 CAPSULE BY MOUTH AT BEDTIME, Refills(s) 0 propafenone 225 mg Tab: 60 EA, 0 Refill(s), TAKE 1 TABLET BY MOUTH TWICE DAILY (IN THE MORNING and AT BEDTIME), Refills(s) 0 sucralfate 1 g Tab: 40 EA, 0 Refill(s), TAKE 1 TABLET BY MOUTH FOUR TIMES DAILY ON AN EMPTY STOMACH, Refills(s) 0 tiZANidine 4 mg Tab: 30 EA, 0 Refill(s), TAKE 1 TABLET BY MOUTH AT BEDTIME DAILY NEEDED, Refills(s) 0, Home Medications (17) Active aspirin 81 mg Oral EC Tab azithromycin 250 mg Tab Bentyl 10 mg Cap 10 mg = 1 cap(s), PRN, Oral, QID Bromfed DM oral syrup 5 mL, PRN, Oral, QID citalopram 10 mg Tab desvenlafaxine 50 mg Tab- diclofenac sodium 75 mg Oral EC Tab Eliquis 5 mg oral tablet hydrOXYzine hydrochloride 25 mg Tab lactulose 10 g/15 mL Oral Syrup metoprolol succinate 25 mg ER Tab nortriptyline 10 mg Cap Pantoprazole [address] Tab Pristiq 50 mg Tab-ER propafenone 225 mg Tab sucralfate 1 g Tab tiZANidine 4 mg Tab Problem list: All Problems Atrial fibrillation / SNOMED CT 38635207 / Confirmed Acute cystitis / SNOMED CT 821951264 / Confirmed Gastritis / SNOMED CT 7140000 / Confirmed Gastroenteritis / SNOMED CT 03011428 / Confirmed Gastroesophageal reflux disease / SNOMED CT 614260660 / Confirmed Blood lead level above reference range / SNOMED CT 3353731751 / Confirmed Left lower quadrant pain / SNOMED CT 333294404 / Confirmed Inguinal lymphadenopathy / SNOMED CT 336855 / Confirmed Obstructive sleep apnea syndrome / SNOMED CT 117204558 / Confirmed Osteoarthritis of knee / SNOMED CT 219585230 / Confirmed Lumbar radiculopathy / SNOMED CT 673506587 / Confirmed Paroxysmal atrial fibrillation / SNOMED CT 742628222 / Confirmed Ventricular bigeminy / SNOMED CT 82753727 / Confirmed Urinary incontinence / SNOMED CT 3515917314 / Confirmed Right upper quadrant pain / SNOMED CT 326775451 / Confirmed Pleurisy / SNOMED CT 308115824 / Confirmed Intussusception of small bowel / SNOMED CT 0845935697 / Confirmed Screen for colon cancer / SNOMED CT 271970398 / Confirmed Histories Past Medical History: No active or resolved past medical history items have been selected or recorded. Family History: No family history items have been selected or recorded. Procedure history: No active procedure history items have been selected or recorded. Social History Social & Psychosocial Habits Alcohol 02/01/2024 Risk Assessment: Medium Risk 02/01/2024 Use: Current Type: Liquor Frequency: 3-5 times per week Comment: 2-3 per episode-victor manuel angel lemonade - 03/30/2020 12:04 - Aldo Mejía RN Substance Abuse 02/01/20 (more content not included)... [facility] Comment on above: Result Comment: Elec tronically Signed By: Elías ROTH, Julio Pond\.br\Date and Time Signed: 02/26/24 15:50 EST 02-26-2024 Evaluation + Plan note Extrac mary from: Title:ANES Post-operative Note---General Author: Malachi Garcia MD Date:02/26/24 Plan Transfer/Discharge: Transfer/Discharge Discharge when meets criteria ( To home ). Extracted from: Title:ANES Pre-operative Note 2022 Author:Malachi Mcclain Date:02/26/24 Plan [place] [employer] (ASA) physical status classification: Class III. Anesthetic Preoperative Plan: Anesthesia General. Extracted from: Title:1Preop H&P Author:Julio Mckinley MD Date:02/26/24 Impression and Plan Impression: gerd, anemia, screening Plan: -EGD and Colonoscopy Future Appointments Appointment Date:03/11/2024 09:30:00 AM Scheduled Provider:Julio Mckinley MD [facility] 10-18-2024 History of Present illness Narrative* Magda Benitez LPN - 02/09/2024 9:40 AM EDT LVM for Fara Kim at [facility] to notify that office is not [facility] certified and can not accept pt. Left return call back number if any questions or concerns arise. Magda BELLE Benign Hematology [facility] History of Present illness Narrative* Magda Benitez LPN - 02/08/2024 9:49 AM EDT Received referral for Dr. Mart from [facility]. Order placed in system and referral scanned into chart. Note written in referral, staff needs to check if Dr. Mart is C certified and if so referral office needs to place a C9. Magda BELLE Benign Hematology [facility]-2024 NoteUT Electrophysiology Consult Note Reason for visit: afib, chest pain , palpitations HPI: Rey Baxter is a 43 y.o. year old with past medical history of Lumbar radiculopathy, GERD, HERIBERTO, fatigue, paroxysmal A-fib,, lead toxicity. Patient was referred to our clinic for A-fib he was seen recently at [facility] and was found to be in [...] his lead toxicity Patient was referred to [facility] but it seems as though [...] Murmur: not heard Extrem (more content not included)...[facility] 08-10-2023 NoteHNO ID: [id number] Author: JEAN LEY PT Service: ? Author Type: Physical Therapist Type: Progress Notes Filed: 08/14/2023 08:41 Note Text: Episode Visit Count: 1 Therapist That Will Accept/Oversee The Plan Of Care: Jean Ley PT Start of Care Date: 08/10/23 Onset [...] Planned: (4) Planned Treatment Interventions: Neuromuscular re-education (98056), Manual therapy (34391), Therapeutic activities (32680), Self-penitentiary management (85560), Therapeutic exercise (06501), Patient/Family/Caregiver Education PLAN FOR NEXT VISIT: Patient [...] WITH LEVEL OF FUNCTION: Positional Testing Left [place]pike: Asymptomatic Right Nylen Barany: Asymptomatic Supine Head [...] Gait and vertical head (more content not included)...[facility] 08-10-2023 History of Present illness Narrative* Jean Lye, PT - 08/10/2023 10:06 AM EDT Program_ID:[id number] Access Code: [email or web address] URL: [email or web address] Date: 08-10-2023 Prepared By: Jean Ley Program Notes Exercises - Sit to Stand [...] weekly - 3 sets - 10 reps * Jean Ley, PT - 08/10/2023 9:30 AM EDT Images from the original note were not included. Episode Visit Count: 1 Therapist That Will Accept/Oversee The Plan Of Care: Jean Ley PT Start of Care Date: 08/10/23 Onset [...] Planned: (4) Planned Treatment Interventions: Neuromuscular re-education (54021), Manual therapy (08458), Therapeutic activities (84549), Self-penitentiary management (33986), Therapeutic exercise (66464), Patient/Family/Caregiver Education PLAN FOR NEXT VISIT: Patient demonstrates good understanding of plan of care and treatment. The above goals and plan of care were discussed and agreed upon by patient/family. SUBJECTIVE: He reports dizziness , heart and headache. When he stands he gets dizzy. He reports his heart skipsa beat. The dizziness is like a whozzy [...] WITH LEVEL OF FUNCTION: Positional Testing Left [place]pike: Asymptomatic Right Nylen Barany: Asymptomatic Supine Head [...] States/Identifies, Return Demonstration TREATMENT: PT Treatment Interventions: Self-Correction Management, Manual Therapy, Neuromuscular Re-Education Evaluation Therapeutic [...] 15 Session Start Time : 932 Jean Ley PT documented in this encounter[facility] NoteUT Electrophysiology Consult Note Reason for visit: afib, chest pain , palpitations HPI: Rey Baxter is a 43 y.o. year old with past medical history of Lumbar radiculopathy, GERD, HERIBERTO, fatigue, paroxysmal A-fib,, lead toxicity. Patient was referred to our clinic for A-fib he was seen recently at [facility] and was found to be in [...] his lead toxicity Patient was referred to [facility] but it seems as though [...] s2, no gallop Systo (more content not included)...[facility] [place] 08-04-2023 Miscellaneous Notes* Telephone Encounter - Zander Denson MA - 08/04/2023 9:08 AM EDT Patient records received via electronic fax. Uploaded to Evernote via [employer]. Please review in scanned documents tab of chart review. Zander Denson MA documented in this encounterOhiohealth [facility]04-11-2024 NoteHNO ID: [id number] Author: MATTHEW BANERJEE CT Service: ? Author [...] PATIENT PRESENTS WITH AN IMPLANTABLE OR ATTACHED INSTRUMENT AND CONTROL SERVICE PERSON: No ALLERGIES: Reviewed and unchanged CONTRAST ALLERGY: NO. EXAM: MRI - CONTRAST TYPE: GROUP II PERIPHERAL IV DATA: Ambulatory: A peripheral IV was started in the Left antecubital site with a Angio cath: 24 gauge. RADIOLOGY DEPARTMENT: MR; Exam(s) Completed: Head: Routine Brain SIGNATURE: TATI Tolbert PATIENT NAME: Rey Baxter DATE: August 03, 2023 TIME: 3:06 [facility]04-11-2024 History of Present illness Narrative* Matthew Banerjee CT - 08/03/2023 2:40 PM EDT Radiology Service Progress Note DATE OF SERVICE: [...] PATIENT PRESENTS WITH AN IMPLANTABLE OR ATTACHED INSTRUMENT AND CONTROL SERVICE PERSON: No ALLERGIES: Reviewed and unchanged CONTRAST ALLERGY: NO. EXAM: MRI - CONTRAST TYPE: GROUP II PERIPHERAL IV DATA: Ambulatory: A peripheral IV was started in the Left antecubital site with a Angio cath: 24 gauge. RADIOLOGY DEPARTMENT: MR; Exam(s) Completed: Head: Routine Brain SIGNATURE: TATI Tolbert PATIENT NAME: Rey Baxter DATE: August 03, 2023 TIME: 3:06 PM documented in this encounterOhiohealth [facility]04-10-2024 NoteHNO ID: [id number] Author: JI FAJARDO MD Service: ? 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 Lead is not being chelated at [...] previous history of headache or migraine apart fromoccasional mild ones that responded entirely to APAP--rare and episodic if at all. Location: bilateral, frontal, temporal and occipital Quality/Description: throbbing Associated Symptoms: Photophobia: no Phonophobia: no Nausea: no Vomiting: no Other symptoms: dizziness (++ orthostatic dizziness. most common on standing. Vision gets blurry atthat time.) Worse with activity: yes Number of [...] speech normal, mental status intact, cranial nerves 2- 12 intact, muscle tone normal, muscle strength normal, [...] worsening headaches. 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 Pt can trial nortriptyline 10 mg po qhs in the interim for symptomatic relief. Return 3 months or sooner if needed. Ji Fajardo MD August 04, 2023 2:09 PM documented in this encounterOhiohealth [facility]04-09-2024 Miscellaneous Notes* Telephone Encounter - Digna Chavez RN - 08/01/2023 5:12 PM EDT Patient calling with request for physician referral: Patient referred to Neurology Department. . Patient denies any new or worsening symptoms of which a provider is not aware: Yes. Ac took call back over for scheduling. documented in this encounterOhiohealth Arthur [facility]02-28-2024 NoteUT Electrophysiology Consult Note Reason for visit: afib, chest pain , palpitations, new pt HPI: Rey Baxter is a 42 y.o. year old with past medical history of Lumbar radiculopathy, GERD, HERIBERTO, fatigue, paroxysmal A-fib,, lead toxicity. Patient was referred to our clinic for A-fib he was seen recently at [facility] and was found to be in [...] his lead toxicity Patient was referred to [facility] but it seems as though no one [...] rales, no rhonchi C (more content not included)...[facility] [place]02-28-2024 NoteTC to VICE PRINCIPAL internal referral for: T56.0X1S (ICD-10-CM) - Toxic effect of lead, accidental or unintentional, sequela PT states he will call back to schedule. Clinic number provided. [facility]02-27-2024 NoteThis journalists and other writers was consulted by Dr. Vogt to assist patient with workers comp claim and resources for lead poisoning. This journalists and other writers met with patient following his visit with Dr. Vogt and provided him the [place] [employer] Workers[employer] contact. This journalists and other writers informed patient resources on lead poisoning will be researched as this journalists and other writers does not currently have information. The patient stated Dr. Vogt provided him with poison control's contact and he plans to call them. This journalists and other writers will research additional resources.[facility] [place]02-27-2024 NoteHEMATOLOGY ONCOLOGY CONSULT NOTE Reason for consult: Chief Complaint: History of present illness: The patient is a 42 y.o. male with PMHx of that presented with lead poisoning. [employer] makes plaques . Patient melts of the same and 06/01/2023 Lead,Blood,Venipuncture Order: [id number] Component Ref Range & Units 2 wk ago Lead <3.5 mcg/dL 33.8 High Comment: NOTE Patient had lead testing at [facility] and was 43 Upon evaluation, No results found for: WBC , HGB , HCT , MCV , PLT Order: [id number] Component Ref Range & Units 2 wk [...] 0.0 - 0.2 X10E9/L 0.1 Resulting Agency [facility] Specimen Collected: 06/01/23 15:10 Performed by: [employer] Last Resulted: 06/01/23 15:22 Received From: [employer] Result Received: 06/20/23 13:09 View Encounter Received Information Result Report CBC auto differential (Order #[id number]) on 06/01/23 Lab Component SmartPhrase Guide CBC auto differential (Order #[id number]) on 06/01/23 Additional PMHx includes afib passed out work and was admitted in [place] and has been on eliquis since jun 02 by cardiology Hematologic / Oncologic hx: - Family hx of malignancy/blood disorder: none - Primary Health Care Aide/Oncologist:none - Established diagnoses: Lead poisoning will be [...] list: Patient Active Problem List Diagnosis A-fib (CMS/[facility]) Bigeminy Assessment and Plan: 1. Toxic effect [...] 2. Screening for col (more content not included)...[facility] Future Appointments Appointment Date:02/26/2024 02:45:00 PM Scheduled Provider: Location:[facility] Appointment Type:Surgery FT Appointment Date:03/11/2024 09:30:00 AM Scheduled Provider:Julio Mckinley MD [facility] Evaluation note* Diagnosis Worsening headaches- Primary Headache Dizziness Dizziness and giddiness Toxic effect of lead, accidental or unintentional, initial encounter [facility] Diagnosis Dizziness Dizziness and giddiness [facility] Diagnosis Worsening headaches Headache [facility]* Diagnosis Lead toxicity, accidental or unintentional, initial encounter- Primary [facility] Narr[facility] No data available for this section [facility] Hospital Discharge instructions No data available for this section [facility] InstructionsNot on filedocumented in this encounter [facility]ructionsNot on filedocumented in this encounter [facility] No data available for this section [facility] Summary Purpose Family History No Family History Records FoundNo Family History Records FoundNo Family History Records FoundNo Family History Records Found No data available for this section No data available for this section No Family History Records FoundNo Family History Records Found No data available for this section No Family History Records Found Advance Directives No Advanced Directives Records Found Date Activated Date Inactivated Comments 06/01/2023 5:40 PM 06/02/2023 8:56 PM Date Activated Date Inactivated Comments 06/01/2023 5:40 PM 06/02/2023 8:56 PM Reason for Referral Specialty Diagnoses / Procedures Referred By Contac t Referred To Contact Diagnoses Worsening headaches Procedures PROVIDER ORDERED FOLLOW UP OFFICE/OUTPATIENT NEW HIGH MDM 60 MINUTES Ji Fajardo MD [address] [place] [address] Referral ID Status Reason Start Date Expiration Date Visits Requested Visits Authorized [id number] Pending Review PCP Requested Referral 11/01/2023 08/01/2024 1 1 Specialty Diagnoses / Procedures Referred By Contac t Referred To Contact [facility] Diagnoses Dizziness Procedures CONSULT TO PHYSICAL THERAPY PHYSICAL THERAPY EVALUATION HIGH COMPLEX 45 MINS Ji Fajardo MD [address] [place], [place] [phone] [facility] [place] [address] Referral ID Status Reason Start Date Expiration Date Visits Requested Visits Authorized [id number] Pending Review Auto-Generat ed Referral 08/02/2023 08/01/2024 1 1 Specialty Diagnoses / Procedures Referred By Contac t Referred To Contact MR IMAGING Diagnoses Worsening headaches Procedures MRI BRAIN WO/W IVCON MRI BRAIN BRAIN STEM W/O W/CONTRAST MATERIAL Ji Fajardo MD [address] [place], [place] [phone] [facility] [place] [address] Referral ID Status Reason Start Date Expiration Date V isits Requested Visits Authorized [id number] Closed Auto-Generate d Referral 08/02/2023 08/31/2024 1 1 Additional Source Comments (unrecognized sect ion and content) No Status Records FoundNo Status Records FoundNo Status Records FoundNo Status Records FoundNo Status Records FoundNo Status Records FoundNo Status Records Found INFORMATION SOURCE (unrecogn ized section and content) DATE CREATED AUTHOR 09/05/2022 [facility] DATE CREATED AUTHOR AUTHOR'S ORGANIZ ATION 06/05/2023 [facility] DATE CREATED AUTHOR AUTHOR'S ORGANIZ ATION 08/14/2023 [facility] DATE CREATED AUTHOR AUTHOR'S ORGANIZ ATION 01/28/2024 [facility] DATE CREATED AUTHOR AUTHOR'S ORGANIZ ATION 03/06/2024 [facility] DATE CREATED AUTHOR AUTHOR'S ORGANIZ ATION 03/09/2024 [facility] DATE CREATED AUTHOR AUTHOR'S ORGANIZ ATION 03/12/2024 [facility] Source Comments (unrecognize d section and content) In the event this informatio n is protected by the Federal Confidentiality of Alcohol and Drug Abuse Patient Records regulations: The Federal rules restrict any use of the information to criminally investigate or prosecute any alcohol or drug abuse patient.[facility] Cancer CenterIn the event this information is protected by the Federal Confidentiality of Alcohol and Drug Abuse Patient Records regulations: The Federal rules restrict any use of the information to criminally investigate or prosecute any alcohol or drug abuse patient.[facility], Cancer CenterIn the event this information is protected by the Federal Confidentiality of Alcohol and Drug Abuse Patient Records regulations: The Federal rules restrict any use of the information to criminally investigate or prosecute any alcohol or drug abuse patient.[facility] Cancer CenterIn the event this information is protected by the Federal Confidentiality of Alcohol and Drug Abuse Patient Records regulations: The Federal rules restrict any use of the information to criminally investigate or prosecute any alcohol or drug abuse patient.[facility] Cancer CenterIn the event this information is protected by the Federal Confidentiality of Alcohol and Drug Abuse Patient Records regulations: The Federal rules restrict any use of the information to criminally investigate or prosecute any alcohol or drug abuse patient.[facility] CenterIn the event this information is protected by the Federal Confidentiality of Alcohol and Drug Abuse Patient Records regulations: The Federal rules restrict any use of the information to criminally investigate or prosecute any alcohol or drug abuse patient.[facility] Reason for Visit (unrecogniz ed section and content) Reason Comments Referral Request Reason Comments Workers comp Reason Comments New Patient Headaches Specialty Diagnoses / Procedures Referred By Aide lopez Referred To Contact Neurology / HEADACHE Diagnoses Intake Simon / [address], Numbness/tingling, Dizziness, Confusion. Procedures NEW NEUR HEADACHE Ashley Foster CNP [address] [place] [address] [place] [address] [place] [address] Referral ID Status Reason Start Date Expiration Date V isits Requested Visits Authorized [id number] Authorized 07/10/2023 01/10/2024 2 2 Reason Comments PT Eval Specialty Diagnoses / Procedures Referred By Contac t Referred To Contact [facility] Diagnoses Dizziness Procedures CONSULT TO PHYSICAL THERAPY PHYSICAL THERAPY EVALUATION HIGH COMPLEX 45 MINS Ji Fajardo MD [address] [place], [place] [phone] [facility] [address] [place] [address] Referral ID Status Reason Start Date Expiration Date Visits Requested Visits Authorized [id number] Pending Review Auto-Generat ed Referral 08/02/2023 08/01/2024 1 1 Reason Comments Radiology MRI Specialty Diagnoses / Procedures Referred By Contac t Referred To Contact MR IMAGING Diagnoses Worsening headaches Procedures MRI BRAIN WO/W IVCON MRI BRAIN BRAIN STEM W/O W/CONTRAST MATERIAL Ji Fajardo MD [address] [place], [place] [phone] [facility] Referral ID Status Reason Start Date Expiration Date V isits Requested Visits Authorized [id number] Closed Auto-Generate d Referral 08/02/2023 08/31/2024 1 1 Care Teams (unrecognized sec tion and content) [employer]acitor Pack Press Operator Relationship Specialty Start Date End Date Wallygeraldinehannah Ollie [address] [place] [phone] 06/26/23 Ashley Foster CNP [address] [place] [address] Referring Family Medicine 07/26/23 Capacitor Pack Press Operator Relationship Specialty Start Date End Date WallyOllie dooley [address] [place] [address] 06/26/23 Ashley Foster CNP [address] [facility] [place] [address] Referring Family Medicine 07/26/23 Capacitor Pack Press Operator Relationship Specialty Start Date End Date Ollie Pitt [address] [place] [place] [address] 06/26/23 Ashley Foster CNP [address] [facility] [place] [address] Referring Family Medicine 07/26/23 Capacitor Pack [employer] Operator Relationship Specialty Start Date End Date Ollie Pitt [address] [facility] [place] [address] 06/26/23 Ashley Foster CNP [address] [place] [facility] [place] [address] Referring Family Medicine 07/26/23 Capacitor Pack Press Operator Relationship Specialty Start Date End Date Ollie Pitt [address] [place] [place] [address] 06/26/23 Ashley Foster CNP [address] [place] [facility] [place] [address] Referring Family Medicine 07/26/23 Capacitor Pack Press Operator Relationship Specialty Start Date End Date Wallysoumya OllieMARY [address] [place] [place] [address] 06/26/23 Ashley Foster CNP [address] [facility] [place] [address] Referring Family Medicine 07/26/23 Capacitor Pack Press Operator Relationship Specialty Start Date End Date Irena Jeffery MD PCP - General Family Medicine 06/01/23 [employer]acitor Pack Press Operator Relationship Specialty Start Date End Date Irena Jeffery MD PCP - General Family [facility] 06/01/23 FOR RECORDS PERTAINING TO PATIENTS WHO [...] BE BASED ON THE PRIMARY CLINICAL RECORDS. [facility] [employer] provides no warranty or guarantee of the accuracy or completeness of information in this document.
== END 2024-03-20 15:05 | disposition home or self-care (01) ==
LOC: CT 15:04
PROVIDERS: PCP Family Medicine; Visit Provider Family Medicine
DX: R22.0 Localized swelling, mass and lump, head (principal); R22.1 Localized swelling, mass and lump, neck
CPT/HCPCS: 70450; 76536

== ENCOUNTER 2024-05-18 17:55 | Emergency (ER) | payer SELFPAY ==
[2024-05-18 17:58] VITALS: BP 121/78; PULSE 69; TEMP 36.6; O2SAT 98; BMI 23.7
--- OUTSIDE RECORDS SUMMARY | 2024-05-18 18:01 | XMS_ITS | CCD ---
Author Organization [facility] Care Team Providers Care C D Area Supervisor Name Role Phone LATIA ., DR OSBORN [...] Ollie Pitt Unavailable Ashley Foster CNP Unavailable [phone] JI FAJARDO Referring Unavailable SCOTTY, JI Referring Unavailable SCOTTY, JI Attending Unavailable Yoandy HERNANDEZ, Ollie Unavailable JAMAR STOCK Attending Unavailable OLLIE PITT Attending Unavailable BERNARDO HAYNES Attending Unavailable INDU VOGT Attending Unavailable Irena Jeffery Primary Care Physician [phone] Irena Jeffery MD Primary Care Provider Julio Mckinley Talnarda Attending Unavaila ble Sarmini, Julio Talal Attending Unavaila ble Sarmini, Kim Talal Referring Unavaila ble Sarmini, Kim Talal Admitting Unavaila ble Sarmini, Kim Talal Attending Unavaila ble Sarmini, Kim Talal Attending Unavaila [...] oral solution (3 sources) alpha-Adrenergic Agonist, Uncompetitive F-zldtdz-M-aspartate Receptor Antagonist, Sigma-1 Agonist Start: 05-26-2018 take [...] day(s), # 60 cap(s), Refills(s) 3, Pharmacy: [facility] 178, cm, 02/01/24 14:47:00 EDT, Height/Length [...] capsule by mo uth daily at bedtime. propafenone hydrochloride 225 mg [...] Pathology Reporton 03-01-2024 Surgical Pathology Report [address] [address]- Surgical Pathology Report Collected Date/Time: 02/26/2024 15:55 [...] is entirely submitted in one cassette. (DC) DC:[facility] Microscopic Description Microscopic examination performed unless gross only specified. Surgical Pathology Report Collected Date/Time: 02/26/2024 15:55 EST Pathologist: Diego ROTH PhD, Rachel Elmore Received Date/Time: 02/27/2024 07:27 HEMALATHA Mckinley MD, Kim Julio Mckinley MD Microscopic Description The use of one or [...] controls are performed and are acceptable. Normal [facility] Comment on above: Performed By: #### 4 [id number] #### [facility] [address] [place] [address] Main OR Intraoperative Recor don 02-27-2024 Main OR Intraoperative Record Main OR Intraoperative Record IntraOp Document Type FT Summary Primary Physician: Julio Mckinley MD Finalized Date/Time: 02/27/24 14:33:06 Pt. Name: REY BAXTER/Sex: 1980 Male Med Rec #: [id number] Physician: Julio Mckinley MD Financial #: [id number] Pt. Type: O Room/Bed: / Admit/Disch: 02/26/24 [...] Braxton Lance RN, Lizbeth Lopez Role Performed JAIL KEEPER Cognos Administrator - Primary Staff - Other Time In [...] Modified By: Janes Lance RN, RN, Janes Watkins 02/26/24 16:15:13 02/26/24 16:15:13 Perioperative Protocols FT [...] precautions for (more content not included)... Normal [facility] Discharge Instructionson Discharge Instructions Discharge Instructions REY BAXTER :1980 Visit Date:02/26/2024 Inpatient Discharge Instructions Your Care Team Admitting Physician - Julio Mckinley MD Referring Physician - Julio Mckinley MD Reason for Your Visit INTUSSUSCEPION OF SMALL [...] AM EST With: Julio Mckinley MD Where: [facility] [address] [place] [address] [place] [address]- Medications What How Much When Instructions Next [...] time. In (more content not included)... Normal [facility] Comment on above: Result Comment: Elec tronically Signed By: Ayla Gage I\.br\Date and Time Signed: 02/26/24 16:20 EST Inpatient Patient Summaryon 02-26-2024 Inpatient Patient Summary Inpatient Patient Summary [place] [id number] [facility] Clinical Discharge Instructions PERSON INFORMATION Name: REY BAXTER PHYSICIANS Admitting Physician: Julio Mckinley MD Attending Physician: Julio Mckinley MD PCP: Irena Jeffery MD Diagnosis: Chronic GERD; Colon cancer screening Comment: PATIENT EDUCATION INFORMATION Instructions: Medication Leaflets: Follow up: Type Location Start [facility] Follow [facility] 03/11/2024 9:30 AM 03/11/2024 9:45 [...] BY MOUTH EVERY EVENING., Responsible Provider: Irena Jfefery MD propafenone (propafenone 225 mg Tab) 60 [...] Responsible Provider: Irena Jeffery MD Comment: Cherelle [facility] Main OR PACU II Recordon Main OR PACU II Record Main OR PACU II Record PACU Phase II Document Type FT Summary Primary Physician: Julio Mckinley MD Finalized Date/Time: 02/26/24 16:44:59 Pt. Name: JULIANNE REYISSA Ang./Sex: 1980 Male Med Rec #: [id number] Physician: Julio Mckinley MD Financial #: [id number] Pt. Type: O Room/Bed: / Admit/Disch: 02/26/24 [...] By: Ayla Gage I 02/26/24 16:44 Normal [facility] Main OR Preoperative Recordo n 02-26-2024 Main OR Preoperative Record Main OR Preoperative Record Holding Area Document Type FT Summary Primary Physician: Julio Mckinley MD Finalized Date/Time: 02/26/24 14:02:22 Pt. Name: REY BAXTER/Sex: 1980 Male Med Rec #: [id number] Physician: Julio Mckinley MD Financial #: [id number] Pt. Type: O Room/Bed: / Admit/Disch: 02/26/24 [...] By: Guerline Vaughn RN 02/26/24 14:02 Normal [facility] Outpatient Surgery Discharge Instructionon 02-26-2024 Outpatient Surgery Discharge Instruction Outpatient Surgery Discharge Instruction [place] [id number] Patient Discharge Instructions PERSON INFORMATION Name: REY BAXTER Date of : 1980 Current Date: 02/26/2024 15:49:43 PHYSICIANS Admitting Physician: Julio Mckinley MD Discharge Diagnosis: Chronic GERD; Colon cancer screening [...] Signature Date Follow up: Type Location Start [facility] Follow [facility] 03/11/2024 9:30 AM 03/11/2024 9:45 AM Confirmed Pharmacy Information: You may receive a survey from [employer] asking you to rate your care experience. Your feedback is important and will help us understand what we do well and how we can improve the quality of care we provide to you, your loved ones and our community. It???s an honor to serve you. Thank you for choosing [facility] HERE ARE THE MEDICATION CHANGES THAT OCCURRED [...] MD PATIENT EDUCATION INFORMATION Instructions: Medication Leaflets: [facility] Gastroenterology Office/Clin ic Noteon 02-01-2024 Gastroenterology [...] GLP-1 agonists? no CT abd/pelvis 12/29/23 @ [facility]: IMPRESSION: 1. Nonobstructing left mid abdominal small bowel intussusception. XR abd 01/11/24 @ [facility]: IMPRESSION: Clear lungs Moderate amount of stool [...] E&M of New Patient Moderate 45-59 Min 11147 EGD Endoscopy (Hospital Procedure) 2. LUQ pain [...] E&M of New Patient Moderate 45-59 Min 67016 EGD Endoscopy (Hospital Procedure) 4. 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 Never Smokeless Tobacco Use:., 02/01/2024 [facility] Comment on above: Result Comment: Elec tronically Signed By: Elías ROHT, Julio Pond\.margarito\Date and Time Signed: 02/01/24 15:45 EDT Office Visiton 12-18-2023 Follow-up visit [id number] Blanca Baxter 1980 M Date Provider Department Center 12/18/2023 3848-BERNARDO HAYNES CARD [facility] Family History Problem Relation Age of Onset Lupus Mother Muscular dystrophy Mother Diabetes Other Family Status - Relation Status Age at Mother Other Level of Service:84649 [place] OFFICE/OUTPATIENT ESTABLISHED LOW MDM 20 MIN Normal [facility] CNTHERAPYon 08-10-2023 CNTHERAPY OT/PT/Speech Visit ( [facility]) REY BAXTER ([id number]) 1980 M Date Time Provider Department 08/10/23 9:30 AM JEAN LEY [facility] Date Time Provider Department Center 08/10/2023 9:30 AM [id number]-TOYNKPBJEAN LEY [facility] Reason for Visit: PT Eval [747] Visit [...] 1 capsule by mouth daily at bedtime. Vegetable Thinner: Therapy (PT/OT/Speech/Resp) ID: [id number] 08/10/2023 10:06 AM Author: JEAN LEY Signed by JEAN LEY PT on 08/10/2023 at 10:06 AM Document text: Program_ID:[id number] Access Code: [email or web address] URL: [email or web address] Date: 08-10-2023 Prepared By: Jean Ley Program [...] 3 sets - 10 reps Normal [facility] THERAPY NTon 08-10-2023 THERAPY NT HNO ID: [id number] Author: JEAN LEY PT Service: ? Author Type: Physical Therapist Type: Therapy (PT/OT/Speech/Resp) Filed: 08/10/2023 10:06 Note Text: Program_ID:[id number] Access Code: [email or web address] URL: [email or web address] Date: 08-10-2023 Prepared By: Jean Ley Program [...] 3 sets - 10 reps Normal [facility] Office Visiton 08-08-2023 Follow-up visit [id number] Blanca Baxter 1980 M Date Provider Department Center 08/08/2023 Alberta-JAMAR STOCK Family History Problem Relation Age of Onset Lupus Mother Muscular dystrophy Mother Diabetes Other Family Status - Relation Status Age at Mother Other Level of Service:48383 [place] OFFICE/OUTPATIENT NEW MODERATE MDM 45 MINUTES Normal [facility] Yumiko 08-04-2023 CNPN Telephone (NUMBHT) JULIANNEREY Mcdaniels ([id number]) 1980 M Date Time Provider Department 08/04/23 JI FAJARDO During your visit today, we recorded the following information about you: Zander Denson MA 08/04/2023 9:09 AM Signed Patient records received via electronic fax. Uploaded to [employer] via [employer]. Please review in scanned documents tab of [...] Status:Closed by ZANDER DENSON on 08/04/23 Normal [facility] MR Brain WO and W contrast I Von 08-03-2023 IMPRESSION: Minimal paranasal sinus inflammatory changes. Otherwise normal study. Rod Placer: TAE Transcribe Date/Time: Aug 03 2023 3:53P Dictated by : JAMAR SMITH MD This examination was interpreted and the report reviewed and electronically signed by: JAMAR SMITH MD on Aug 03 2023 3:57PM [facility] DIVISION OF RADIOLOGY * * *Final Report* * * DATE OF EXAM: Aug 03 2023 3:38PM [facility] 0295 - MRI BRAIN WO/W IVCON / [...] greater than left. DIVISION OF RADIOLOGY Provider, [facility] - 08/03/2023 * * *Final Report* * * DATE OF EXAM: Aug 03 2023 3:38PM [facility] 0295 - MRI BRAIN WO/W IVCON / [...] paranasal sinus inflammatory changes. Otherwise normal study. Rod Placer: TAE Transcribe Date/Time: Aug 03 2023 3:53P Dictated by : JAMAR SMITH MD This examination was interpreted and the report reviewed and electronically signed by: JAMAR SMITH MD on Aug 03 2023 3:57PM [facility] Radiology Study observation (narrative) [facility] MR Brain WO and W contrast I VOrdered By: Ccf Provider on 08-03-2023 [facility] MRI BRAIN WO/W IVCONon 08-02 MRI BRAIN WO/W IVCON * * *Final Report* * * DATE OF EXAM: Aug 03 2023 3:38PM [facility] 0295 - MRI BRAIN WO/W IVCON / [...] paranasal sinus inflammatory changes. Otherwise normal study. Rod Placer: PSCB Transcribe Date/Time: Aug 03 2023 3:53P Dictated by : JAMAR SMITH MD This examination was interpreted and the report reviewed and electronically signed by: JAMAR SMITH MD on Aug 03 2023 3:57PM EST [id number] Normal [facility] CNOVon 08-02-2023 CNOV Office Visit ([facility]) REY BAXTER ([id number]) 1980 M Date Time Provider Department 08/02/23 4:00 PM JI FAJARDO [facility] During your visit today, we recorded the following information about you: Pulse Respiration Blood pressure Weight 74/minute 18/minute 115/74 72.4 kg Height 1.778 m Ji Fajardo MD 08/04/2023 2:09 PM Signed [facility] NEW EVALUATION August 04, 2023 4:00 PM Pt is 43 year old male from [place], [place] who presents with headaches that appears subsequent to 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 Lead is not being chelated at [...] contrast (more content not included)... Normal [facility] Yumiko 08-02-2023 ANIBAL Telephone (RUDY) REY BAXTER ([id number]) 1980 M Date Time Provider Department 08/02/23 [...] Encounter Status:Closed by ZANDER DENSON on 08/03/23 [facility] 36on 06-22-2023 36 Per Ollie [...] stress test just needs done catia. Normal [facility] 36 [place] called this mo rning to make us [...] the entire left side of his body. [facility] Office Visiton 06-21-2023 Follow-up visit [id number] Blanca Baxter geoffrey S 1980 M Date Provider Department Center 06/21/2023 1596-OLLIE PITT CARD [facility] Family History Problem Relation Age of Onset Lupus Mother Muscular dystrophy Mother Diabetes Other Family Status - Relation Status Age at Mother Other Level of Service:53120 [place] OFFICE/OUTPATIENT NEW MODERATE MDM 45 MINUTES Reason for Visit and Comments: New Patient [632] - A Fib 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 CBC AND AUTO DIFFon 06-02-19 24 ABSOLUTE BASOPHIL 0.1 X10E9/L Normal 0.0-0.2 [facility] Comment on above: Performed By: #### C BCA, CMP, 73091-3, PINR, 40168-3, 21919-0, 69101-0, 70201-5, THYR #### [facility] ([id number]) [address] [place] [address], [place] [address] ABSOLUTE NEUTROPHIL 3.9 X10E9/L Normal 1.5-6.6 [facility] Comment on above: Performed By: #### C BCA, CMP, 40362-9, PINR, 56494-1, 94353-8, 01461-2, 96116-0, THYR #### [facility] ([id number]) [address] [place] [address] Basophils/100 WBC (Bld) 0.8 % Normal [facility] Comment on above: Performed By: #### C BCA, CMP, 96905-8, PINR, 70000-2, 12692-2, 05005-5, 90722-0, THYR #### [facility] ([id number]) [address] [place] [address] Eosinophils (Bld) [#/Vol] 0.1 10*3/uL Normal 0.0-0.4 [facility] Comment on above: Performed By: #### C BCA, CMP, 76650-4, PINR, 83598-6, 11215-0, 68230-8, 89934-6, THYR #### [facility] ([id number]) [address] [place] [address] 04446 Eosinophils/100 WBC (Bld) 1.4 % Normal [facility] Comment on above: Performed By: #### C BCA, CMP, 79411-4, PINR, 82783-5, 03017-6, 27751-3, 68133-1, THYR #### [facility] ([id number]) [address] [place] [address] [place] [address] Erythrocyte distribution width (RBC) [Ratio] 13.2 % Normal 11.5-15.0 [facility] Comment on above: Performed By: #### C BCA, CMP, 35504-0, PINR, 54476-6, 81276-0, 30172-8, 86298-4, THYR #### [facility] ([id number]) [address] [place] [address] 69298 Hematocrit (Bld) [Volume fraction] 40.7 % Normal 39-49 [facility] Comment on above: Performed By: #### C BCA, CMP, 93343-7, PINR, 52127-7, 52996-3, 35323-0, 21429-3, THYR #### [facility] ([id number]) [address] [place] [address] 03315 Hemoglobin (Bld) [Mass/Vol] 14.2 g/dL Normal 13.0-17.0 [facility] Comment on above: Performed By: #### C BCA, CMP, 11375-6, PINR, 39873-5, 51378-4, 11833-9, 05644-3, THYR #### [facility] ([id number]) [address] [place] [address] 98371 Lymphocytes (Bld) [#/Vol] 2.2 10*3/uL Normal 1.0-3.5 [facility] Comment on above: Performed By: #### C BCA, CMP, 85736-7, PINR, 96153-5, 55548-4, 86907-0, 28680-6, THYR #### [facility] ([id number]) [address] [place] [address] 28761 Lymphocytes/100 WBC (Bld) 31.4 % Normal [facility] Comment on above: Performed By: #### C BCA, CMP, 14971-0, PINR, 17236-9, 07908-1, 74870-2, 77292-4, THYR #### [facility] ([id number]) [address] [place] [address] 37673 MCH (RBC) [Entitic mass] 30.7 pg Normal 27-34 [facility] Comment on above: Performed By: #### C BCA, CMP, 48523-6, PINR, 42589-3, 59912-8, 55468-5, 56954-3, THYR #### [facility] ([id number]) [address] [place] [address] 05995 MCHC (RBC) [Mass/Vol] 34.9 g/dL Normal 32-36 [facility] Comment on above: Performed By: #### C BCA, CMP, 52868-7, PINR, 97974-6, 23152-7, 22957-2, 00943-7, THYR #### [facility] ([id number]) [address] [place] [address] 90469 MCV (RBC) [Entitic vol] 88 fL Normal 80-100 [facility] Comment on above: Performed By: #### C BCA, CMP, 62593-4, PINR, 87586-3, 25330-1, 54054-5, 74731-1, THYR #### [facility] ([id number]) [address] [place] [address] 31515 Monocytes (Bld) [#/Vol] 0.7 10*3/uL Normal 0-0.9 [facility] Comment on above: Performed By: #### C BCA, CMP, 09863-9, PINR, 28346-7, 89544-1, 00080-6, 69780-4, THYR #### [facility] ([id number]) [address] [place] [address] 02406 Monocytes/100 WBC (Bld) 10.7 % Normal [facility] Comment on above: Performed By: #### C BCA, CMP, 28386-8, PINR, 25560-5, 24956-9, 30144-9, 79153-4, THYR #### [facility] ([id number]) [address] [place] [address] 68894 Neutrophils/100 WBC (Bld) 55.7 % Normal [facility] Comment on above: Performed By: #### C BCA, CMP, 26395-3, PINR, 79117-1, 31546-4, 52776-6, 05371-8, THYR #### [facility] ([id number]) [address] [place] [address] 895[address] Platelet mean volume (Bld) [Entitic vol] 8.5 fL Normal 7-12 [facility] Comment on above: Performed By: #### C BCA, CMP, 31757-9, PINR, 31060-0, 24332-1, 03422-8, 97975-6, THYR #### [facility] ([id number]) [address] [place] [address] 00099 Platelets (Bld) [#/Vol] 192 10*3/uL Normal 150-450 [facility] Comment on above: Performed By: #### C BCA, CMP, 69461-1, PINR, 05996-2, 64537-0, 68176-3, 13427-6, THYR #### [facility] ([id number]) [address] [place] [address] 71083 RBC COUNT 4.61 X10E12/L Normal 4.10-5.70 [facility] Comment on above: Performed By: #### C BCA, CMP, 65331-4, PINR, 43516-1, 99708-0, 69693-3, 01643-0, THYR #### [facility] ([id number]) [address] [place] [address] 50171 WBC (Bld) [#/Vol] 7.0 10*3/uL Normal 4.0-11.0 [facility] Comment on above: Performed By: #### C BCA, CMP, 45662-4, PINR, 76858-1, 34527-0, 24119-3, 68965-0, THYR #### [facility] ([id number]) [address] [place] [address] 32924 COMPREHENSIVE METABOLIC PANE Nik 06-02-2023 Albumin [Mass/Vol] 4.2 g/dL Normal 3.2-5.3 [facility] Comment on above: Performed By: #### C BCA, CMP, 83490-1, PINR, 45522-3, 94823-5, 09400-6, 69044-3, THYR #### [facility] ([id number]) [address] [place] [address] 69630 ALP [Catalytic activity/Vol] 84 U/L Normal 39-130 [facility] Comment on above: Performed By: #### C BCA, CMP, 26141-1, PINR, 53556-2, 75454-7, 02369-4, 99074-8, THYR #### [facility] ([id number]) [address] [place] [address] 77601 ALT [Catalytic activity/Vol] 27 U/L Normal 0-40 [facility] Comment on above: Performed By: #### C BCA, CMP, 70186-3, PINR, 06204-4, 88845-5, 56281-5, 06710-2, THYR #### [facility] ([id number]) [address] [place] [address] 45365 Anion gap [Moles/Vol] 8 mmol/L Normal 5-15 [facility] Comment on above: Performed By: #### C BCA, CMP, 85465-2, PINR, 98665-1, 77007-8, 66999-8, 21356-8, THYR #### [facility] ([id number]) [address] [place] [address] 55045 AST [Catalytic activity/Vol] 22 U/L Normal 0-41 [facility] Comment on above: Performed By: #### C BCA, CMP, 80983-5, PINR, 11555-0, 55153-3, 80422-2, 36373-5, THYR #### [facility] ([id number]) [address] [place] [address] 22737 Bilirubin [Mass/Vol] 0.8 mg/dL Normal 0.3-1.2 [facility] Comment on above: Performed By: #### C BCA, CMP, 41988-4, PINR, 50611-2, 46261-6, 88426-4, 80821-1, THYR #### [facility] ([id number]) [address] [place] [address] 88150 Calcium [Mass/Vol] 10.0 mg/dL Normal 8.5-10.5 [facility] Comment on above: Performed By: #### C BCA, CMP, 04451-8, PINR, 28581-6, 39848-0, 21416-3, 69685-0, THYR #### [facility] ([id number]) [address] [place] [address] 91507 Chloride [Moles/Vol] 102 mmol/L Normal 98-109 [facility] Comment on above: Performed By: #### C BCA, CMP, 96318-2, PINR, 79431-2, 92065-3, 35112-2, 39966-8, THYR #### [facility] ([id number]) [address] [place] [address] 45578 CO2 [Moles/Vol] 26 mmol/L Normal 22-32 [facility] Comment on above: Performed By: #### C BCA, CMP, 48075-0, PINR, 47954-2, 17002-4, 22920-6, 59317-4, THYR #### [facility] ([id number]) [address] [place] [address] 32167 Creatinine [Mass/Vol] 1.07 mg/dL Normal 0.70-1.20 [facility] Comment on above: Result Comment: METH OD TRACEABLE TO IDMS STANDARD Performed By: #### C BCA, CMP, 05860-1, PINR, 31315-9, 07661-4, 45133-1, 02644-3, THYR #### [facility] ([id number]) [address] [place] [address] 92534 GFR/1.73 sq M.predicted among non-blacks MDRD (S/P/Bld) [Vol rate/Area] 88 mL/min/{1.73_m2} Normal >59 [facility] Comment on above: Result Comment: Reported eGFR is based on the CKD-EPI 2020 equation that does not use a race coefficient. Performed By: #### C BCA, CMP, 46929-8, PINR, 79750-0, 02617-2, 91618-7, 94448-0, THYR #### [facility] ([id number]) [address] [place] [address] 31226 Glucose [Mass/Vol] 94 mg/dL Normal 65-99 [facility] Comment on above: Performed By: #### C BCA, CMP, 71494-7, PINR, 37041-1, 55405-5, 43949-9, 78022-1, THYR #### [facility] ([id number]) [address] [place] [address] 73933 Potassium [Moles/Vol] 4.0 mmol/L Normal 3.5-5.0 [facility] Comment on above: Performed By: #### C BCA, CMP, 76435-1, PINR, 86738-7, 21335-3, 72868-2, 47133-4, THYR #### [facility] ([id number]) [address] [place] [address] 25908 Protein [Mass/Vol] 7.0 g/dL Normal 6.0-8.0 [facility] Comment on above: Performed By: #### C BCA, CMP, 46635-1, PINR, 63102-9, 06409-7, 80769-5, 97191-1, THYR #### [facility] ([id number]) [address] [place] [address] 27743 Sodium [Moles/Vol] 136 mmol/L Normal 134-146 [facility] Comment on above: Performed By: #### C BCA, CMP, 40540-6, PINR, 88761-9, 18039-5, 66034-5, 02079-6, THYR #### [facility] ([id number]) [address] [place] [address] 98872 Urea nitrogen [Mass/Vol] 20 mg/dL Normal 5-23 [facility] Comment on above: Performed By: #### C BCA, CMP, 25296-5, PINR, 56104-2, 40551-2, 12939-5, 06447-4, THYR #### [facility] ([id number]) [address] [place] [address] 20606 MAGNESIUMon 06-02-2023 Magnesium [Mass/Vol] 2.1 mg/dL Normal 1.8-2.6 [facility] Comment on above: Performed By: #### C BCA, CMP, 86820-1, PINR, 52586-3, 32850-0, 22066-5, 86170-8, THYR #### [facility] ([id number]) [address] [place] [address] 14477 TROPONIN Ion 06-02-2023 Troponin I.cardiac [Mass/Vol] ng/mL Normal 0.00-0.04 [facility] Comment on above: Performed By: #### C BCA, CMP, 19994-4, PINR, 53104-3, 21921-4, 97579-3, 10873-6, THYR #### [facility] ([id number]) [address] [place] [address] 36907 CBC AND AUTO DIFFon 06-01-19 24 ABSOLUTE BASOPHIL 0.1 X10E9/L Normal 0.0-0.2 [facility] Comment on above: Performed By: #### C BCA, CMP, 39938-7, PINR, 40214-5, 63635-2, 58072-5, 58080-1, THYR #### [facility] ([id number]) [address] [place] [address] 36934 ABSOLUTE NEUTROPHIL 5.1 X10E9/L Normal 1.5-6.6 [facility] Comment on above: Performed By: #### C BCA, CMP, 73110-8, PINR, 36381-6, 36922-4, 44511-0, 38527-2, THYR #### [facility] ([id number]) [address] [place] [address] 78357 Basophils/100 WBC (Bld) 0.8 % Normal [facility] Comment on above: Performed By: #### C BCA, CMP, 02611-2, PINR, 81487-3, 44617-3, 83380-1, 76843-5, THYR #### [facility] ([id number]) [address] [place] [address] 10851 Eosinophils (Bld) [#/Vol] 0.1 10*3/uL Normal 0.0-0.4 [facility] Comment on above: Performed By: #### C BCA, CMP, 66566-9, PINR, 70821-2, 74483-1, 30075-5, 74162-5, THYR #### [facility] ([id number]) [address] [place] [address] 23586 Eosinophils/100 WBC (Bld) 1.1 % Normal [facility] Comment on above: Performed By: #### C BCA, CMP, 49442-1, PINR, 73650-3, 08222-3, 06219-3, 75240-1, THYR #### [facility] ([id number]) [address] [place] [address] 37755 Erythrocyte distribution width (RBC) [Ratio] 13.0 % Normal 11.5-15.0 [facility] Comment on above: Performed By: #### C BCA, CMP, 78460-9, PINR, 55978-3, 78432-9, 18134-1, 71680-8, THYR #### [facility] ([id number]) [address] [place] [address] 54475 Hematocrit (Bld) [Volume fraction] 41.5 % Normal 39-49 [facility] Comment on above: Performed By: #### C BCA, CMP, 37598-9, PINR, 13846-1, 35340-0, 37432-6, 04082-6, THYR #### [facility] ([id number]) [address] [place] [address] 09573 Hemoglobin (Bld) [Mass/Vol] 14.6 g/dL Normal 13.0-17.0 [facility] Comment on above: Performed By: #### C BCA, CMP, 14381-9, PINR, 69214-7, 65004-3, 86398-0, 89653-5, THYR #### [facility] ([id number]) [address] [place] [address] 47540 Lymphocytes (Bld) [#/Vol] 1.7 10*3/uL Normal 1.0-3.5 [facility] Comment on above: Performed By: #### C BCA, CMP, 45933-9, PINR, 00873-9, 86533-2, 11626-1, 91359-0, THYR #### [facility] ([id number]) [address] [place] [address] 98706 Lymphocytes/100 WBC (Bld) 22.2 % Normal [facility] Comment on above: Performed By: #### C BCA, CMP, 46734-4, PINR, 24053-6, 85804-5, 02520-5, 47386-1, THYR #### [facility] ([id number]) [address] [place] [address] 07674 MCH (RBC) [Entitic mass] 30.4 pg Normal 27-34 [facility] Comment on above: Performed By: #### C BCA, CMP, 98128-2, PINR, 26805-1, 62962-7, 51516-9, 26592-4, THYR #### [facility] ([id number]) [address] [place] [address] 18354 MCHC (RBC) [Mass/Vol] 35.1 g/dL Normal 32-36 [facility] Comment on above: Performed By: #### C BCA, CMP, 23983-1, PINR, 55555-6, 02369-1, 26767-8, 09824-4, THYR #### [facility] ([id number]) [address] [place] [address] 23723 MCV (RBC) [Entitic vol] 87 fL Normal 80-100 [facility] Comment on above: Performed By: #### C BCA, CMP, 12073-6, PINR, 81821-3, 99772-5, 00733-2, 60018-7, THYR #### [facility] ([id number]) [address] [place] [address] 64141 Monocytes (Bld) [#/Vol] 0.6 10*3/uL Normal 0-0.9 [facility] Comment on above: Performed By: #### C BCA, CMP, 67974-2, PINR, 72211-9, 74702-2, 76460-5, 37544-2, THYR #### [facility] ([id number]) [address] [place] [address] 99302 Monocytes/100 WBC (Bld) 7.8 % Normal [facility] Comment on above: Performed By: #### C BCA, CMP, 21738-9, PINR, 83066-8, 67660-8, 36348-6, 44919-0, THYR #### [facility] ([id number]) [address] [place] [address] 92519 Neutrophils/100 WBC (Bld) 68.1 % Normal [facility] Comment on above: Performed By: #### C BCA, CMP, 39157-2, PINR, 09412-9, 56586-5, 94761-2, 74358-6, THYR #### [facility] ([id number]) [address] [place] [address] 55917 Platelet mean volume (Bld) [Entitic vol] 8.3 fL Normal 7-12 [facility] Comment on above: Performed By: #### C BCA, CMP, 85436-9, PINR, 04605-1, 75290-2, 71044-8, 75971-6, THYR #### [facility] ([id number]) [address] [place] [address] 96900 Platelets (Bld) [#/Vol] 207 10*3/uL Normal 150-450 [facility] Comment on above: Performed By: #### C BCA, CMP, 55883-7, PINR, 72521-2, 01104-8, 38418-9, 32557-6, THYR #### [facility] ([id number]) [address] [place] [address] 93655 RBC COUNT 4.79 X10E12/L Normal 4.10-5.70 [facility] Comment on above: Performed By: #### C BCA, CMP, 11937-8, PINR, 05095-0, 03358-8, 67187-5, 11577-3, THYR #### [facility] ([id number]) [address] [place] [address] 36641 WBC (Bld) [#/Vol] 7.5 10*3/uL Normal 4.0-11.0 [facility] Comment on above: Performed By: #### C BCA, CMP, 53965-1, PINR, 74892-3, 42937-4, 62015-8, 59005-5, THYR #### [facility] ([id number]) [address] [place] [address] 47845 COMPREHENSIVE METABOLIC PANE Nik 06-01-2023 Albumin [Mass/Vol] 5.0 g/dL Normal 3.2-5.3 [facility] Comment on above: Performed By: #### C BCA, CMP, 05719-0, PINR, 50348-7, 37947-3, 08912-6, 02564-9, THYR #### [facility] ([id number]) [address] [place] [address] 22089 ALP [Catalytic activity/Vol] 90 U/L Normal 39-130 [facility] Comment on above: Performed By: #### C BCA, CMP, 53082-2, PINR, 26482-1, 74909-9, 02291-0, 72936-9, THYR #### [facility] ([id number]) [address] [place] [address] 17639 ALT [Catalytic activity/Vol] 32 U/L Normal 0-40 [facility] Comment on above: Performed By: #### C BCA, CMP, 13202-6, PINR, 99940-5, 19655-9, 25819-3, 26029-9, THYR #### [facility] ([id number]) [address] [place] [address] [place] [address] Anion gap [Moles/Vol] 7 mmol/L Normal 5-15 [facility] Comment on above: Performed By: #### C BCA, CMP, 68065-0, PINR, 98885-1, 43141-0, 71469-9, 39724-1, THYR #### [facility] ([id number]) [address] [place] [address] [place] [address] AST [Catalytic activity/Vol] 27 U/L Normal 0-41 [facility] Comment on above: Performed By: #### C BCA, CMP, 28083-4, PINR, 35349-6, 27011-5, 72747-0, 26487-2, THYR #### [facility] ([id number]) [address] [place] [address] 00248 Bilirubin [Mass/Vol] 0.8 mg/dL Normal 0.3-1.2 [facility] Comment on above: Performed By: #### C BCA, CMP, 19250-1, PINR, 89200-7, 57768-0, 34588-5, 05927-6, THYR #### [facility] ([id number]) [address] [place] [address] 02882 Calcium [Mass/Vol] 10.1 mg/dL Normal 8.5-10.5 [facility] Comment on above: Performed By: #### C BCA, CMP, 33517-0, PINR, 20033-0, 84691-5, 12148-8, 54391-8, THYR #### [facility] ([id number]) [address] [place] [address] 17333 Chloride [Moles/Vol] 103 mmol/L Normal 98-109 [facility] Comment on above: Performed By: #### C BCA, CMP, 12300-1, PINR, 80956-0, 59144-4, 70140-9, 36610-8, THYR #### [facility] ([id number]) [address] [place] [address] 63197 CO2 [Moles/Vol] 24 mmol/L Normal 22-32 [facility] Comment on above: Performed By: #### C BCA, CMP, 91476-1, PINR, 23830-7, 11538-4, 66113-7, 22326-0, THYR #### [facility] ([id number]) [address] [place] [address] 19865 Creatinine [Mass/Vol] 1.18 mg/dL Normal 0.70-1.20 [facility] Comment on above: Result Comment: METH OD TRACEABLE TO IDMS STANDARD Performed By: #### C BCA, CMP, 64401-3, PINR, 57964-5, 73674-5, 09414-8, 81877-3, THYR #### [facility] ([id number]) [address] [place] [address] 95761 GFR/1.73 sq M.predicted among non-blacks MDRD (S/P/Bld) [Vol rate/Area] 78 mL/min/{1.73_m2} Normal >59 [facility] Comment on above: Result Comment: Reported eGFR is based on the CKD-EPI 2020 equation that does not use a race coefficient. Performed By: #### C BCA, CMP, 62885-6, PINR, 49581-5, 51843-5, 23184-8, 58709-4, THYR #### [facility] ([id number]) [address] [place] [address] 21302 Glucose [Mass/Vol] 86 mg/dL Normal 65-99 [facility] Comment on above: Performed By: #### C BCA, CMP, 64571-2, PINR, 20840-2, 43312-9, 03974-6, 22976-2, THYR #### [facility] ([id number]) [address] [place] [address] 60652 Potassium [Moles/Vol] 3.8 mmol/L Normal 3.5-5.0 [facility] Comment on above: Performed By: #### C BCA, CMP, 29589-9, PINR, 94522-9, 03149-1, 57704-3, 52192-1, THYR #### [facility] ([id number]) [address] [place] [address] 55915 Protein [Mass/Vol] 7.8 g/dL Normal 6.0-8.0 [facility] Comment on above: Performed By: #### C BCA, CMP, 83965-5, PINR, 43449-7, 25428-0, 68444-2, 09144-3, THYR #### [facility] ([id number]) [address] [place] [address] 37708 Sodium [Moles/Vol] 134 mmol/L Normal 134-146 [facility] Comment on above: Performed By: #### C BCA, CMP, 83836-9, PINR, 39951-1, 33670-4, 03801-4, 31169-4, THYR #### [facility] ([id number]) [address] [place] [address] [place] [address] Urea nitrogen [Mass/Vol] 16 mg/dL Normal 5-23 [facility] Comment on above: Performed By: #### C BCA, CMP, 00194-4, PINR, 18573-8, 78591-3, 53681-4, 10451-7, THYR #### [facility] ([id number]) [address] [place] [address] [place] [address] DRUG SCREEN, URINEon 024 AMPHETAMINE/METHAM P Negative Normal NEG [facility] Comment on above: Result Comment: AMPH /METH screening cut off = 1000 ng/mL Performed By: #### C BCA, CMP, 25225-7, PINR, 79717-4, 04687-4, 11497-1, 24401-9, THYR #### [facility] ([id number]) [address] [place] [address] [place] [address] BARBITURATES Negative Normal NEG [facility] Comment on above: Result Comment: Yen iturates screening cut off value = 200 ng/mL Performed By: #### C BCA, CMP, 72255-0, PINR, 73215-7, 55642-1, 95560-9, 87765-0, THYR #### [facility] ([id number]) [address] [place] [address], [place] [address] BENZODIAZEPINES Negative Normal NEG [facility] Comment on above: Result Comment: Carlos odiazepines screening cut off value = 200 ng/mL Performed By: #### C BCA, CMP, 02740-5, PINR, 34387-1, 95643-5, 19098-5, 60444-5, THYR #### [facility] ([id number]) [address] [place] [address] 15724 CANNABINOIDS Negative Normal NEG [facility] Comment on above: Result Comment: Shirlene abinoids/THC screening cut off value = 50 ng/mL Performed By: #### C BCA, CMP, 73085-2, PINR, 94167-3, 57272-5, 50228-1, 93310-0, THYR #### [facility] ([id number]) [address] [place] [address] 04552 COCAINE METABOLITE Negative Normal NEG [facility] Comment on above: Result Comment: Coca ine screening cut off value = 300 ng/mL Performed By: #### C BCA, CMP, 51859-8, PINR, 68963-3, 58144-2, 18309-7, 50136-0, THYR #### [facility] ([id number]) [address] [place] [address] 47085 ECSTASY Negative Normal NEG [facility] Comment on above: Result Comment: Ecst asy screening cut off value = 500 ng/mL This report is intended for use in clinical monitoring or management of patients. Performed By: #### C BCA, CMP, 64862-0, PINR, 09642-3, 41931-2, 80952-8, 16233-7, THYR #### [facility] ([id number]) [address] [place] [address] 33963 METHADONE Negative Normal NEG [facility] Comment on above: Result Comment: Meth adone screening cut off value = 300 ng/mL. Performed By: #### C BCA, CMP, 31368-0, PINR, 48943-7, 60926-6, 18563-2, 40165-3, THYR #### [facility] ([id number]) [address] [place] [address] 51212 OPIATES Negative Normal NEG [facility] Comment on above: Result Comment: Opia yolande screening cut off value = 300 ng/mL NOTE: This test is used for the detection of codeine, hydrocodone (>1000 ng/mL), morphine and hydromorphone (>900 ng/mL) in urine. Performed By: #### C MERCEDES, ERIK, 76733-7, PINR, 18220-5, 50644-7, 41509-4, 93702-6, THYR #### [facility] ([id number]) [address] [place] [address] 15384 OXYCODONE Negative Normal NEG [facility] Comment on above: Result Comment: Oxyc odone screening cut off value = 300 ng/mL NOTE: This test is used for the detection of oxycodone and oxymorphone in urine. Performed By: #### C MERCEDES, ERIK, 75533-1, PINR, 04656-2, 65647-2, 86706-8, 56611-6, THYR #### [facility] ([id number]) [address] [place] [address] 31923 PHENCYCLIDINE Negative Normal NEG [facility] Comment on above: Result Comment: Phen cyclidine screening cut off value = 25 ng/mL Performed By: #### C MERCEDES, ERIK, 74317-7, PINR, 91166-7, 78221-2, 36210-0, 54459-7, THYR #### [facility] ([id number]) [address] [place] [address] 71736 Fibrin D-dimer DDU (PPP) [Ma ss/Vol]on 06-01-2023 [...] if the patient's symptoms persist or worsen. [email or web address] Performed By: #### C MERCEDES, CMP, 02483-9, PINR, 48950-4, 09308-2, 56067-9, 39768-7, THYR #### [facility] ([id number]) [address] [place] [address] 01555 Lead (BldV) [Mass/Vol]on LEAD, VENOUS 33.8 mcg/dL High <3.5 [facility] Comment on above: Result Comment: NOTE ADDITIONAL INFORMATION Testing performed by Inductively Coupled Plasma-Mass Spectrometry (ICP-MS). This test was developed and its performance characteristics determined by [facility] in a manner consistent with CLIA requirements. This test has not been cleared or approved by the U.S. Food and Drug Administration. Performed By: #### C BCA, CMP, 94580-4, PINR, 24197-3, 21933-7, 90495-6, 87202-5, THYR #### [facility] ([id number]) [address] [place] [address] 16490 MAGNESIUMon 06-01-2023 Magnesium [Mass/Vol] 2.1 mg/dL Normal 1.8-2.6 [facility] Comment on above: Performed By: #### C BCA, CMP, 30134-9, PINR, 92192-7, 73569-4, 41151-7, 83923-7, THYR #### [facility] ([id number]) [address] [place] [address] 68913 Natriuretic peptide B [Mass/ Vol]on 06-01-2023 BRN NATRIURETIC PEP <5 Normal <100.0 [facility] Comment on above: Performed By: #### C BCA, CMP, 40052-1, PINR, 84351-3, 89761-2, 83995-8, 18501-9, THYR #### [facility] ([id number]) [address] [place] [address] 72278 PROTIME AND INRon 06-01-2023 INR Coag (PPP) [Relative time] 1.1 {INR} Normal 0.8-1.1 [facility] Comment on above: Performed By: #### C BCA, CMP, 04268-8, PINR, 19950-5, 70213-7, 28922-7, 19528-3, THYR #### [facility] ([id number]) [address] [place] [address] 88421 PT Coag (PPP) [Time] 12.6 s Normal 9.8-13.2 [facility] Comment on above: Result Comment: NEW REFERENCE RANGE Performed By: #### C BCA, CMP, 03931-6, PINR, 24933-7, 30271-8, 92275-7, 11523-9, THYR #### [facility] ([id number]) [address] [place] [address] 54763 THYROID PROFILEon 06-01-2023 Free T4 [Mass/Vol] 0.88 ng/dL Normal 0.61-1.60 [facility] Comment on above: Performed By: #### C BCA, CMP, 12676-9, PINR, 78006-1, 46209-1, 32735-8, 65111-5, THYR #### [facility] ([id number]) [address] [place] [address] 91122 TSH 1.27 uIU/mL Normal 0.49-4.67 [facility] Comment on above: Performed By: #### C BCA, CMP, 92955-6, PINR, 82998-6, 49176-8, 85890-4, 07467-0, THYR #### [facility] ([id number]) [address] [place] [address] 35132 TROPONIN Ion 06-01-2023 Troponin I.cardiac [Mass/Vol] ng/mL Normal 0.00-0.04 [facility] Comment on above: Performed By: #### C BCA, CMP, 49068-7, PINR, 30121-1, 09406-1, 33058-8, 33996-0, THYR #### [facility] ([id number]) [address] [place] [address] 37833 URN MACROSCOPIC NURon 2023 BILIRUBIN FITO Negative Normal NEG [facility] Comment on above: Performed By: #### C BCA, CMP, 49536-9, PINR, 06204-5, 59886-1, 16002-1, 02820-1, THYR #### [facility] ([id number]) [address] [place] [address] 52215 BLOOD/HGB FITO Negative Normal [facility] Comment on above: Performed By: #### C BCA, CMP, 51814-3, PINR, 31328-9, 30420-3, 52677-7, 99708-7, THYR #### [facility] ([id number]) [address] [place] [address] [place] [address] GLUCOSE FITO Negative Normal [facility] Comment on above: Performed By: #### C BCA, CMP, 79949-0, PINR, 41888-3, 36445-0, 03475-9, 59087-6, THYR #### [facility] ([id number]) [address] [place] [address] [place] [address] KETONES FITO 40 mg/dL Abnormal NEG [facility] Comment on above: Performed By: #### C BCA, CMP, 05861-1, PINR, 45594-9, 38752-5, 03807-8, 18802-1, THYR #### [facility] ([id number]) [address] [place] [address] [place] [address] LEUKOCYTE ESTERASE FITO Negative Normal NEG [facility] Comment on above: Performed By: #### C BCA, CMP, 07465-3, PINR, 62306-3, 57932-2, 87969-4, 90553-0, THYR #### [facility] ([id number]) [address] [place] [address] 56504 NITRITE FITO Negative Normal NEG [facility] Comment on above: Performed By: #### C BCA, CMP, 12647-0, PINR, 33944-6, 77411-7, 79201-4, 92202-0, THYR #### [facility] ([id number]) [address] [place] [address] 88721 PH FITO 5.5 Normal 5.0-8.5 [facility] Comment on above: Performed By: #### C BCA, CMP, 87032-4, PINR, 61455-4, 08474-4, 84580-5, 92046-5, THYR #### [facility] ([id number]) [address] [place] [address] 96260 PROTEIN FITO Negative Normal NEG [facility] Comment on above: Performed By: #### C BCA, CMP, 58241-8, PINR, 35038-3, 18053-3, 02929-7, 76986-9, THYR #### [facility] ([id number]) [address] [place] [address] 48175 SPECIFIC GRAVITY FITO 1.025 Normal 1.003-1.035 [facility] Comment on above: Performed By: #### C BCA, CMP, 84974-1, PINR, 06190-7, 62361-2, 45243-2, 58674-2, THYR #### [facility] ([id number]) [address] [place] [address] 29383 UROBILINOGEN FITO 0.2 eu/dL Normal <1.1 [facility] Comment on above: Performed By: #### C BCA, CMP, 45197-7, PINR, 28106-1, 75516-8, 31187-5, 22255-7, THYR #### [facility] ([id number]) [address] [place] [address] XR CHEST 1 VWon 06-01-2023 XR CHEST [...] RANGE Performed By: #### C BCA, CMP, 98224-3, PINR, 70019-1, 03372-0, 10204-9, 16173-0, THYR #### [facility] ([id number]) [address] [place] [address] 87893 LEAD,ADULTon 09-05-2022 Lead, Blood (Adult) 45.4 ug/dL Invalid Interpretation Code 0.0-3.4 [facility] Comment on above: Result Comment: Test ing performed by Inductively coupled plasma/Mass Spectrometry. Verified by repeat analysis Analysis by inductively coupled plasma/mass spectrometry (ICP/MS) Environmental Exposure: WHO Recommendation <20.0 Occupational Exposure: OSHA Lead Std 40.0 CHAZ 30.0 . Detection Limit = 1.0 Performed By: #### L EADA #### [facility] [address] [place] [address] Dr. Rachel Cortez LEAD,ADULTon 09-01-2022 Lead, Blood [...] 1.0 Performed By: #### I NSULIN #### [facility] [address] [place] [address] Dr. Rachel Cortez LEAD,ADULTon 08-30-2022 Lead, Blood [...] 1.0 Performed By: #### L EADA #### [facility] [address] [place] [address] Dr. Rachel Cortez BNPon 08-29-2022 Natriuretic peptide B (Bld) [Mass/Vol] 10.0 pg/mL Normal <=450.0 [facility] Comment on above: Performed By: #### C MP, TSH, BNP #### [facility] [address] [place] [address] Dr. Rachel Cortez CBC AUTO DIFFon 08-29-2022 BASO # 0.0 103/ul Normal 0.0-0.1 [facility] Comment on above: Performed By: #### C BC #### [facility] [address] [place] [address] Dr. Rachel Cortez Basophils/100 WBC (Bld) 0.5 % Normal 0.2-2.0 [facility] Comment on above: Performed By: #### C BC #### [facility] [address] [place] [address] Dr. Rachel Cortez EO # 0.2 103/ul Normal 0.0-0.7 [facility] Comment on above: Performed By: #### C BC #### [facility] [address] [place] [address] Dr. Rachel Cortez Eosinophils/100 WBC (Bld) 2.7 % Normal 0.9-7.0 [facility] Comment on above: Performed By: #### C BC #### [facility] [address] [place] [address] Dr. Rachel Cortez Erythrocyte distribution width (RBC) [Ratio] 12.3 % Normal 11.0-15.0 [facility] Comment on above: Performed By: #### C BC #### [facility] [address] [place] [address] Dr. Rachel Cortez Hematocrit (Bld) [Volume fraction] 40.9 % Critically low 42.0-54.0 [facility] Comment on above: Performed By: #### C BC #### [facility] [address] [place] [address] Dr. Rachel Cortez Hemoglobin (Bld) [Mass/Vol] 13.9 g/dL Critically low 14.0-18.0 [facility] Comment on above: Performed By: #### C BC #### [facility] [address] [place] [address] Dr. Rachel Cortez IG # 0.02 10e3/ul Normal 0.00-0.03 [facility] Comment on above: Performed By: #### C BC #### [facility] [address] [place] [address] Dr. Rachel Cortez IG % 0.3 % Normal 0.0-0.5 [facility] Comment on above: Performed By: #### C BC #### [facility] [address] [place] [address] Dr. Rachel Cortez LYMPH # 1.6 103/ul Normal 1.2-3.8 [facility] Comment on above: Performed By: #### C BC #### [facility] [address] [place] [address] Dr. Rachel Cortez Lymphocytes/100 WBC (Bld) 21.2 % Normal 20.5-60.0 [facility] Comment on above: Performed By: #### C BC #### [facility] [address] [place] [address] Dr. Rachel Cortez MANUAL DIFF REQ NO Normal [facility] Comment on above: Performed By: #### C BC #### [facility] [address] [place] [address] Dr. Rachel Cortez MCH (RBC) [Entitic mass] 30.3 pg Normal 25.9-34.0 [facility] Comment on above: Performed By: #### C BC #### [facility] [address] [place] [address] Dr. Rachel Cortez MCHC (RBC) [Mass/Vol] 34.0 g/dL Normal 29.9-35.2 [facility] Comment on above: Performed By: #### C BC #### [facility] [address] [place] [address] Dr. Rachel Cortez MCV (RBC) [Entitic vol] 89.3 fL Normal 80.0-94.0 [facility] Comment on above: Performed By: #### C BC #### [facility] [address] [place] [address] Dr. Rachel Cortez MONO # 0.6 103/ul Normal 0.3-0.8 [facility] Comment on above: Performed By: #### C BC #### [facility] [address] [place] [address] Dr. Rachel Cortez Monocytes/100 WBC (Bld) 8.6 % Normal 1.7-12.0 [facility] Comment on above: Performed By: #### C BC #### [facility] [address] [place] [address] Dr. Rachel Cortez NEUT # 5.0 103/ul Normal 1.4-6.5 [facility] Comment on above: Performed By: #### C BC #### [facility] [address] [place] [address] Dr. Rachel Cortez Neutrophils/100 WBC (Bld) 66.7 % Normal 43.0-75.0 [facility] Comment on above: Performed By: #### C BC #### [facility] [address] [place] [address] Dr. Rachel Cortez Platelet mean volume (Bld) [Entitic vol] 10.2 fL Normal 9.5-13.5 [facility] Comment on above: Performed By: #### C BC #### [facility] [address] [place] [address] Dr. Rachel Cortez PLT 198 103/ul Normal 150-450 [facility] Comment on above: Performed By: #### C BC #### [facility] [address] [place] [address] Dr. Rachel Cortez RBC 4.58 106/ul Critically low 4.70-6.10 [facility] Comment on above: Performed By: #### C BC #### [facility] [address] [place] [address] Dr. Rachel Cortez WBC 7.5 103/ul Normal 4.0-11.0 [facility] Comment on above: Performed By: #### C BC #### [facility] [address] [place] [address] Dr. Rachel Cortez FREE T4on 08-29-2022 Free T4 [Mass/Vol] 0.84 ng/dL Normal 0.76-1.46 [facility] Comment on above: Performed By: #### I KANDIS FT4 #### [facility] [address] [place] [address] Dr. Rachel Cortez IRONon 08-29-2022 Iron [Mass/Vol] 86.0 ug/dL Normal 65.0-175.0 [facility] Comment on above: Performed By: #### I KANDIS FT4 #### [facility] [address] [place] [address] Dr. Rachel Cortez PROF 14(COMP METB)on 023 Albumin [Mass/Vol] 4.0 g/dL Normal 3.4-5.0 [facility] Comment on above: Performed By: #### C MP, TSH, BNP #### [facility] [address] [place] [address] Dr. Rachel Cortez Albumin/Globulin [Mass ratio] 1.2 {ratio} Normal [facility] Comment on above: Performed By: #### C MP, TSH, BNP #### [facility] [address] [address] [address] Rachel Cortez ALP [Catalytic activity/Vol] 103 U/L Normal 46-116 [facility] Comment on above: Performed By: #### C MP, TSH, BNP #### [facility] [address] [address] [address] Rachel Cortez ALT [Catalytic activity/Vol] 39 U/L Normal 16-63 [facility] Comment on above: Performed By: #### C MP, TSH, BNP #### [facility] [address] [address] [address] Rachel Cortez Anion gap [Moles/Vol] 10.2 mmol/L Normal [facility] Comment on above: Performed By: #### C MP, TSH, BNP #### [facility] [address] [place] [address] Dr. Rachel Cortez AST [Catalytic activity/Vol] 20 U/L Normal 15-37 [facility] Comment on above: Performed By: #### C MP, TSH, BNP #### [facility] [address] [place] [address] Dr. Rachel Cortez Bilirubin [Mass/Vol] 0.3 mg/dL Normal 0.2-1.0 [facility] Comment on above: Performed By: #### C MP, TSH, BNP #### [facility] [address] [place] [address] Dr. Rachel Cortez Calcium [Mass/Vol] 9.8 mg/dL Normal 8.5-10.[address] [facility] Comment on above: Performed By: #### C MP, TSH, BNP #### [facility] [address] [place] [address] Dr. Rachel Cortez Chloride [Moles/Vol] 105 mmol/L Normal 98-107 [facility] Comment on above: Performed By: #### C MP, TSH, BNP #### [facility] [address] [place] [address] Dr. Rachel Cortez CO2 [Moles/Vol] 29.9 mmol/L Normal 21.0-32.0 [facility] Comment on above: Performed By: #### C MP, TSH, BNP #### [facility] [address] [address] [address] Rachel Cortez Creatinine [Mass/Vol] 1.19 mg/dL Normal 0.70-1.30 [facility] Comment on above: Performed By: #### C MP, TSH, BNP #### [facility] [address] [address] [address] Rachel Cortez EGFR-AF SOMALI >60 Normal >=60 [facility] Comment on above: Performed By: #### C MP, TSH, BNP #### [facility] [address] [address] [address] Rachel Cortez EGFR-NON AF SOMALI >60 Normal >=60 [facility] Comment on above: Performed By: #### C MP, TSH, BNP #### [facility] [address] [address] [address] Rachel Cortez Globulin (S) [Mass/Vol] 3.4 g/dL Normal [facility] Comment on above: Performed By: #### C MP, TSH, BNP #### [facility] [address] [address] [address] Rachel Cortez Glucose [Mass/Vol] 105 mg/dL Normal 74-[address] [facility] Comment on above: Performed By: #### C MP, TSH, BNP #### [facility] [address] [address] [address] Rachel Cortez Potassium [Moles/Vol] 4.1 mmol/L Normal 3.5-5.1 [facility] Comment on above: Performed By: #### C MP, TSH, BNP #### [facility] [address] [address] [address] Rachel Cortez Protein [Mass/Vol] 7.4 g/dL Normal 6.4-8.2 [facility] Comment on above: Performed By: #### C MP, TSH, BNP #### [facility] [address] [address] [address] Rachel Cortez Sodium [Moles/Vol] 141 mmol/L Normal 136-[address] [facility] Comment on above: Performed By: #### C MP, TSH, BNP #### [facility] [address] [address] [address] Rachel Cortez Urea nitrogen [Mass/Vol] 16.0 mg/dL Normal 7.0-18.0 [facility] Comment on above: Performed By: #### C MP, TSH, BNP #### [facility] [address] [place] [address] Dr. Rachel Cortez Urea nitrogen/Creatinin e [Mass ratio] 13.4 mg/mg Normal [facility] Comment on above: Performed By: #### C MP, TSH, BNP #### [facility] [address] [place] [address] Dr. Rachel Cortez TSHon 08-29-2022 TSH 0.978 uIU/mL Normal 0.358-3.740 [facility] Comment on above: Performed By: #### I NSULIN #### [facility] [address] [place] [address] FACIAL BONES WO [...] by: WILFRID CAMARENA Date: 2022-08-11 18:[address] [facility] [address] HEAD WO CONon 08-11-2022 CT [...] MARLYS MUNOZ Date: 2022-08-11 19:49 Normal [facility] INSULINon 05-09-2022 Insulin 9.9 uIU/mL Normal 2.6-24.9 [facility] Comment on above: Performed By: #### I NSULIN #### [facility] [address] [place] [address] Dr. Rachel Cortez CBC AUTO DIFFon 05-07-2022 BASO # 0.1 103/ul Normal 0.0-0.1 [facility] Comment on above: Performed By: #### I NSULIN #### [facility] [address] [place] [address] Dr. Rachel Cortez Basophils/100 WBC (Bld) 0.7 % Normal 0.2-2.0 [facility] Comment on above: Performed By: #### I NSULIN #### [facility] [address] [place] [address] Dr. Rachel Cortez EO # 0.0 103/ul Normal 0.0-0.7 [facility] Comment on above: Performed By: #### I NSULIN #### [facility] [address] [place] [address] Dr. Rachel Cortez Eosinophils/100 WBC (Bld) 0.1 % Critically low 0.9-7.0 [facility] Comment on above: Performed By: #### I NSULIN #### [facility] [address] [place] [address] Dr. Rachel Cortez Erythrocyte distribution width (RBC) [Ratio] 12.2 % Normal 11.0-15.0 [facility] Comment on above: Performed By: #### I NSULIN #### [facility] [address] [place] [address] Dr. Rachel Cortez Hematocrit (Bld) [Volume fraction] 41.1 % Critically low 42.0-54.0 [facility] Comment on above: Performed By: #### I NSULIN #### [facility] [address] [place] [address] Dr. Rachel Cortez Hemoglobin (Bld) [Mass/Vol] 14.1 g/dL Normal 14.0-18.0 [facility] Comment on above: Performed By: #### I NSULIN #### [facility] [address] [place] [address] Dr. Rachel Cortez IG # 0.03 10e3/ul Normal 0.00-0.03 [facility] Comment on above: Performed By: #### I NSULIN #### [facility] [address] [place] [address] Dr. Rachel Cortez IG % 0.4 % Normal 0.0-0.5 [facility] Comment on above: Performed By: #### I NSULIN #### [facility] [address] [place] [address] Dr. Rachel Cortez LYMPH # 2.3 103/ul Normal 1.2-3.8 [facility] Comment on above: Performed By: #### I NSULIN #### [facility] [address] [place] [address] Dr. Rachel Cortez Lymphocytes/100 WBC (Bld) 30.8 % Normal 20.5-60.0 [facility] Comment on above: Performed By: #### I NSULIN #### [facility] [address] [place] [address] Dr. Rachel Cortez MANUAL DIFF REQ NO Normal [facility] Comment on above: Performed By: #### I NSULIN #### [facility] [address] [place] [address] Dr. Rachel Cortez MCH (RBC) [Entitic mass] 29.9 pg Normal 25.9-34.0 [facility] Comment on above: Performed By: #### I NSULIN #### [facility] [address] [place] [address] Dr. Rachel Cortez MCHC (RBC) [Mass/Vol] 34.3 g/dL Normal 29.9-35.2 [facility] Comment on above: Performed By: #### I NSULIN #### [facility] [address] [place] [address] Dr. Rachel Cortez MCV (RBC) [Entitic vol] 87.3 fL Normal 80.0-94.0 [facility] Comment on above: Performed By: #### I NSULIN #### [facility] [address] [place] [address] Dr. Rachel Cortez MONO # 0.7 103/ul Normal 0.3-0.8 [facility] Comment on above: Performed By: #### I NSULIN #### [facility] [address] [place] [address] Dr. Rachel Cortez Monocytes/100 WBC (Bld) 8.9 % Normal 1.7-12.0 [facility] Comment on above: Performed By: #### I NSULIN #### [facility] [address] [place] [address] Dr. Rachel Cortez NEUT # 4.3 103/ul Normal 1.4-6.5 [facility] Comment on above: Performed By: #### I NSULIN #### [facility] [address] [place] [address] Dr. Rachel Cortez Neutrophils/100 WBC (Bld) 59.1 % Normal 43.0-75.0 [facility] Comment on above: Performed By: #### I NSULIN #### [facility] [address] [place] [address] Dr. Rachel Cortez Platelet mean volume (Bld) [Entitic vol] 9.9 fL Normal 9.5-13.5 [facility] Comment on above: Performed By: #### I NSULIN #### [facility] [address] [place] [address] Dr. Rachel Cortez PLT 184 103/ul Normal 150-450 [facility] Comment on above: Performed By: #### I NSULIN #### [facility] [address] [place] [address] Dr. Rachel Cortez RBC 4.71 106/ul Normal 4.70-6.10 [facility] Comment on above: Performed By: #### I NSULIN #### [facility] [address] [place] [address] Dr. Rachel Cortez WBC 7.3 103/ul Normal 4.0-11.0 [facility] Comment on above: Performed By: #### I NSULIN #### [facility] [address] [place] [address] Dr. Rachel Cortez CULTURE URINEon 05-07-2022 CULTURE URINE Culture Observations : LIGHT GROWTH OF MIXED SKIN NILES. NO POTENTIAL PATHOGENS SEEN. Normal [facility] Comment on above: Performed By: #### I NSULIN #### [facility] [address] [place] [address] Dr. Rachel Cortez FREE THYROXINE INDEX T7on FTI 2.07 Normal 1.30-4.50 [facility] Comment on above: Performed By: #### I NSULIN #### [facility] [address] [place] [address] Dr. Rachel Cortez T3U 35.0 % Normal 33.0-40.0 [facility] Comment on above: Performed By: #### I NSULIN #### [facility] [address] [place] [address] Dr. Rachel Cortez T4 [Mass/Vol] 5.90 ug/dL Normal 4.50-12.10 [facility] Comment on above: Performed By: #### I NSULIN #### [facility] [address] [place] [address] Dr. Rachel Cortez GLYCOHEMOGLOBIN A1Con 2022 ADA RECOMMENDATION SEE BELOW Normal The [facility] Comment on above: Result Comment: ADA RECOMMENDED LIMIT 4.0 - 6.0 ADA THERAPEUTIC TARGET < 7.0 ACTION SUGGESTED > 7.0 Performed By: #### A 1C #### [facility] [address] [place] [address] Dr. Rachel Cortez Glucose [Mass/Vol] 100 mg/dL Normal [facility] Comment on above: Performed By: #### A 1C #### [facility] [address] [place] [address] Dr. Rachel Cortez HbA1c (Bld) [Mass fraction] 5.1 % Normal 4.5-6.2 [facility] Comment on above: Performed By: #### A 1C #### [facility] [address] [place] [address] Dr. Rachel Cortez IRONon 05-07-2022 Iron [Mass/Vol] 104.0 ug/dL Normal 65.0-175.0 [facility] Comment on above: Performed By: #### I NSULIN #### [facility] [address] [place] [address] Dr. Rachel Cortez LIPID PROFILEon 05-07-2022 CHOL-HDL RATIO NORM SEE BELOW Normal [facility] Comment on above: Result Comment: 3.3 - 4.4 LOW RISK 4.4 - 7.1 AVERAGE RISK 7.1 - 11.0 MODERATE RISK >11.0 HIGH RISK Performed By: #### C MP, LIPID #### [facility] [address] [place] [address] Dr. Rachel Cortez Cholesterol [Mass/Vol] 147 mg/dL Normal <=200 [facility] Comment on above: Performed By: #### C MP, LIPID #### [facility] [address] [place] [address] Dr. Rachel Cortez Cholesterol in HDL [Mass/Vol] 56 mg/dL Normal 40-60 [facility] Comment on above: Performed By: #### C MP, LIPID #### [facility] [address] [place] [address] Dr. Rachel Cortez Cholesterol in LDL [Mass/Vol] 77.8 mg/dL Normal [facility] Comment on above: Performed By: #### C MP, LIPID #### [facility] [address] [place] [address] Dr. Rachel Cortez Cholesterol.total/ Cholesterol in HDL [Mass ratio] 2.6 {ratio} Normal [facility] Comment on above: Performed By: #### C MP, LIPID #### [facility] [address] [place] [address] Dr. Rachel Cortez HDL NORMAL > or = 60 mg/dl - LO W CARDIOVASCULAR RISK <40 mg/dl - HIGH CARDIOVASCULAR RISK Normal [facility] Comment on above: Performed By: #### C MP, LIPID #### [facility] [address] [place] [address] Dr. Rachel Cortez LDL CALC NORMAL SEE BELOW Normal [facility] Comment on above: Result Comment: <100 mg/dl OPTIMAL 100 - 129 mg/dl NEAR OR ABOVE OPTIMAL 130 - 159 mg/dl BORDERLINE HIGH 160 - 189 mg/dl HIGH >190 mg/dl VERY HIGH Performed By: #### C MP, LIPID #### [facility] [address] [place] [address] Dr. Rachel Cortez Triglyceride [Mass/Vol] 66 mg/dL Normal <=150 [facility] Comment on above: Performed By: #### C MP, LIPID #### [facility] [address] [place] [address] Dr. Rachel Cortez VLDL CALC 13.2 mg/dL Normal [facility] Comment on above: Performed By: #### C MP, LIPID #### [facility] [address] [place] [address] Dr. Rachel Cortez PROF 14(COMP METB)on 023 Albumin [Mass/Vol] 4.0 g/dL Normal 3.4-5.[address] [facility] Comment on above: Performed By: #### C MP, LIPID #### [facility] [address] [place] [address] Dr. Rachel Cortez Albumin/Globulin [Mass ratio] 1.3 {ratio} Normal [facility] Comment on above: Performed By: #### C MP, LIPID #### [facility] [address] [address] [address] Rachel Cortez ALP [Catalytic activity/Vol] 86 U/L Normal 46-116 [facility] Comment on above: Performed By: #### C MP, LIPID #### [facility] [address] [address] [address] Rachel Cortez ALT [Catalytic activity/Vol] 35 U/L Normal 16-63 [facility] Comment on above: Performed By: #### C MP, LIPID #### [facility] [address] [address] [address] Rachel Cortez Anion gap [Moles/Vol] 9.9 mmol/L Normal [facility] Comment on above: Performed By: #### C MP, LIPID #### [facility] [address] [place] [address] Dr. Rachel Cortez AST [Catalytic activity/Vol] 22 U/L Normal 15-37 [facility] Comment on above: Performed By: #### C MP, LIPID #### [facility] [address] [address] [address] Rachel Cortez Bilirubin [Mass/Vol] 0.4 mg/dL Normal 0.2-1.0 [facility] Comment on above: Performed By: #### C MP, LIPID #### [facility] [address] [address] [address] Rachel Cortez Calcium [Mass/Vol] 10.1 mg/dL Normal 8.5-10.[address] [facility] Comment on above: Performed By: #### C MP, LIPID #### [facility] [address] [address] [address] Rachel Cortez Chloride [Moles/Vol] 107 mmol/L Normal 98-107 [facility] Comment on above: Performed By: #### C MP, LIPID #### [facility] [address] [address] [address] Rachel Cortez CO2 [Moles/Vol] 30.0 mmol/L Normal 21.0-32.0 [facility] Comment on above: Performed By: #### C MP, LIPID #### [facility] [address] [place] [address] Dr. Rachel Cortez Creatinine [Mass/Vol] 1.16 mg/dL Normal 0.70-1.30 [facility] Comment on above: Performed By: #### C MP, LIPID #### [facility] [address] [place] [address] Dr. Rachel Cortez EGFR-AF SOMALI >60 Normal >=60 [facility] Comment on above: Performed By: #### C MP, LIPID #### [facility] [address] [place] [address] Dr. Rachel Cortez EGFR-NON AF SOMALI >60 Normal >=60 [facility] Comment on above: Performed By: #### C MP, LIPID #### [facility] [address] [place] [address] Dr. Rachel Cortez Globulin (S) [Mass/Vol] 3.0 g/dL Normal [facility] Comment on above: Performed By: #### C MP, LIPID #### [facility] [address] [place] [address] Dr. Rachel Cortez Glucose [Mass/Vol] 88 mg/dL Normal 74-106 [facility] Comment on above: Performed By: #### C MP, LIPID #### [facility] [address] [place] [address] Dr. Rachel Cortez Potassium [Moles/Vol] 3.9 mmol/L Normal 3.5-5.1 [facility] Comment on above: Performed By: #### C MP, LIPID #### [facility] [address] [place] [address] Dr. Rachel Cortez Protein [Mass/Vol] 7.0 g/dL Normal 6.4-8.2 [facility] Comment on above: Performed By: #### C MP, LIPID #### [facility] [address] [place] [address] Dr. Rachel Cortez Sodium [Moles/Vol] 143 mmol/L Normal 136-145 [facility] Comment on above: Performed By: #### C MP, LIPID #### [facility] [address] [place] [address] Dr. Rachel Cortez Urea nitrogen [Mass/Vol] 16.0 mg/dL Normal 7.0-18.0 [facility] Comment on above: Performed By: #### C MP, LIPID #### [facility] [address] [place] [address] Dr. Rachel Cortez Urea nitrogen/Creatinin e [Mass ratio] 13.8 mg/mg Normal [facility] Comment on above: Performed By: #### C MP, LIPID #### [facility] [address] [place] [address] Dr. Rachel Cortez TSHon 05-07-2022 TSH 2.417 uIU/mL Normal 0.358-3.740 [facility] Comment on above: Performed By: #### I NSULIN #### [facility] [address] [place] [address] Dr. Rachel Cortez UA RANDOM W/MICROSCOPICon BACTERIA NONE SEEN Normal NONE SEEN [facility] Comment on above: Performed By: #### I NSULIN #### [facility] [address] [place] [address] Dr. Rachel Cortez Bilirubin Ql (U) Negative Normal NEGATIVE [facility] Comment on above: Performed By: #### I NSULIN #### [facility] [address] [place] [address] Dr. Rachel Cortez CAST NONE SEEN Normal NONE SEEN [facility] Comment on above: Performed By: #### I NSULIN #### [facility] [address] [place] [address] Dr. Rachel Cortez Clarity (U) CLEAR Normal CLEAR [facility] Comment on above: Performed By: #### I NSULIN #### [facility] [address] [place] [address] Dr. Rachel Cortez Color (U) YELLOW Normal YELLOW [facility] Comment on above: Performed By: #### I NSULIN #### [facility] [address] [place] [address] Dr. Rachel Cortez Crystals LM Nom (Urine sed) NONE SEEN Normal NONE SEEN [facility] Comment on above: Performed By: #### I NSULIN #### [facility] [address] [address] [address] Rachel Cortez Epithelial cells LM Ql (Urine sed) NONE SEEN Normal NONE SEEN /RARE [facility] Comment on above: Performed By: #### I NSULIN #### [facility] [address] [address] [address] Rachel Cortez Glucose Ql (U) Negative Normal NEGATIVE [facility] Comment on above: Performed By: #### I NSULIN #### [facility] [address] [address] [address] Rachel Cortez Hemoglobin Ql (U) Negative Normal NEGATIVE [facility] Comment on above: Performed By: #### I NSULIN #### [facility] [address] [place] [address] Dr. Rachel Cortez Ketones Ql (U) Negative Normal NEGATIVE [facility] Comment on above: Performed By: #### I NSULIN #### [facility] [address] [address] [address] Rachel Cortez LEUKOCYTES Negative Normal NEGATIVE [facility] Comment on above: Performed By: #### I NSULIN #### [facility] [address] [address] [address] Rachel Cortez MUCOUS MODERATE Abnormal NONE SEEN [facility] Comment on above: Performed By: #### I NSULIN #### [facility] [address] [address] [address] Rachel Cortez Nitrite Ql (U) Negative Normal NEGATIVE [facility] Comment on above: Performed By: #### I NSULIN #### [facility] [address] [address] [address] Rachel Cortez pH (U) 6.0 [pH] Normal 5-9 [facility] Comment on above: Performed By: #### I NSULIN #### [facility] [address] [address] [address] Rachel Cortez RBC NONE SEEN Abnormal 0-2 [facility] Comment on above: Performed By: #### I NSULIN #### [facility] [address] [place] [address] Dr. Rachel Cortez SPEC GRAVITY 1.030 Abnormal 1.005-<=1.0 25 [facility] Comment on above: Performed By: #### I NSULIN #### [facility] [address] [place] [address] Dr. Rachel Cortez UA PROTEIN Negative Normal NEGATIVE/ TRACE [facility] Comment on above: Performed By: #### I NSULIN #### [facility] [address] [place] [address] Dr. Rachel Cortez Urobilinogen Qn (U) 1.0 {Colby'U}/dL Normal 0.2 - 1.0 [facility] Comment on above: Performed By: #### I NSULIN #### [facility] [address] [place] [address] Dr. Rachel Cortez WBC NONE SEEN Normal NONE SEEN [facility] Comment on above: Performed By: #### I NSULIN #### [facility] [address] [place] [address] Dr. Rachel Cortez XR LSPINE MIN 4 [...] MARINA MAIN Date: 2022-05-06 16:40 Normal [facility] Vital Signs Date Time Vital Sign Value Performing Clinician Facility 02-26-2024 16:31-0500 Diastolic blood pressure 93 mm[Hg] Julio Lilianasamantha [facility] 02-26-2024 16:31-0500 Heart rate 65 /min Julio Mckinley [facility] 02-26-2024 16:31-0500 Mean blood pressure 104 mm[Hg] Kim Sarmini [facility] 02-26-2024 16:31-0500 Respiratory rate 16 /min Kim Sarmini [facility] 02-26-2024 16:31-0500 SaO2% (BldA) [Mass fraction] 100 % Kim Sarmini [facility] 02-26-2024 16:31-0500 Systolic blood pressure 126 mm[Hg] Kim Sarmini [facility] 02-26-2024 16:16-0500 Body temperature 98.24 [degF] Kim Sarmini [facility] 02-26-2024 16:16-0500 Diastolic blood pressure 78 mm[Hg] Kim Sarmini [facility] 02-26-2024 16:16-0500 Heart rate 59 /min Ikm Sarmini [facility] 02-26-2024 16:16-0500 Mean blood pressure 85 mm[Hg] Kim Sarmini [facility] 02-26-2024 16:16-0500 Respiratory rate 18 /min Kim Sarmini [facility] 02-26-2024 16:16-0500 SaO2% (BldA) [Mass fraction] 99 % Kim Sarmini [facility] 02-26-2024 16:16-0500 Systolic blood pressure 98 mm[Hg] Kim Sarmini [facility] 02-26-2024 16:10-0500 Diastolic blood pressure 63 mm[Hg] Kim Sarmini [facility] 02-26-2024 16:10-0500 Heart rate 56 /min Kim Sarmini [facility] 02-26-2024 16:10-0500 Respiratory rate 18 /min Kim Sarmini [facility] 02-26-2024 16:10-0500 SaO2% (BldA) [Mass fraction] 99 % Kim Sarmini [facility] 02-26-2024 16:10-0500 Systolic blood pressure 102 mm[Hg] Kim Sarmini [facility] 02-26-2024 16:05-0500 Respiratory rate 18 /min Kim Sarmini [facility] 02-26-2024 13:57-0500 Blood Pressure Location Kim Sarmini [facility] 02-26-2024 13:57-0500 Body temperature 98.24 [degF] Kim Sarmini [facility] 02-26-2024 13:57-0500 Respiratory rate 16 /min Kim Sarmini [facility] 02-01-2024 14:42-0400 Blood Pressure Location Kim Sarmini [facility] 02-01-2024 14:42-0400 Diastolic blood pressure 78 mm[Hg] Kim Sarmini [facility] 02-01-2024 14:42-0400 Heart rate 80 /min Kim Sarmini [facility] 02-01-2024 14:42-0400 Respiratory rate 18 /min Kim Sarmini [facility] 02-01-2024 14:42-0400 Systolic blood pressure 108 mm[Hg] Kim Sarmini [facility] 08-02-2023 15:48-0400 Body height 177.8 cm Ji Fajardo MD Work Phone: [facility] 08-02-2023 15:48-0400 Body weight 72.45 kg Ji Fajardo MD Work Phone: [facility] 08-02-2023 15:48-0400 Diastolic blood pressure 74 mm[Hg] Ji Fajardo MD Work Phone: [facility] 08-02-2023 15:48-0400 Heart rate 74 /min Ji Fajardo MD Work Phone: [facility] 08-02-2023 15:48-0400 Respiratory rate 18 /min Ji Fajardo MD Work Phone: [facility] 08-02-2023 15:48-0400 SaO2% (BldA) [Mass fraction] 98 % Ji Fajardo MD Work Phone: [facility] 08-02-2023 15:48-0400 Systolic blood pressure 115 mm[Hg] Ji Fajardo MD Work Phone: [facility] Encounters Encounter Date Encounter Type Care Provider Facility Start: 05-13-2024 ambulatory Kim Talal Sarmini Facility:[facility] Start: 03-11-2024 End: 03-11-2024 ambulatory Kim Talal Sarmini Facility:[facility] Start: 03-11-2024 End: 03-11-2024 Patient encounter procedure Kim Talal Sarmini [facility] Start: 02-26-2024 End: 02-26-2024 ambulatory Kim Talal Lilianamini [facility] Start: 02-26-2024 End: 02-26-2024 Patient encounter procedure Kim Talal Lilianamini [facility] Start: 02-09-2024 End: 02-09-2024 Documentation procedure Magda Emmanuel MACHINE HOOP MAKER [facility] Start: 02-08-2024 End: 02-08-2024 Documentation procedure Magda Emmanuel MACHINE [employer] [facility] Comment on above: Lead toxicity, accid ental or unintentional, initial encounter (Primary Dx) Start: 02-01-2024 End: 02-01-2024 ambulatory Kim Talal Lilianamini Facility:[facility] Start: 02-01-2024 End: 02-01-2024 Patient encounter procedure Kim Eduinal Lilianamini [facility] Start: 01-05-2024 ambulatory Kim Lilianamini Facili ty:[facility] Start: 01-02-2024 ambulatory Kim Sarmini Facili ty:[facility] Start: 12-18-2023 End: 12-19-2023 [facility] Start: 08-10-2023 End: 08-10-2023 ambulatory JI FAJARDO Facility:[facility] Start: 08-10-2023 End: 08-10-2023 ambulatory Jean Av PT Work Phone: Physical Therapy Comment on above: Dizziness Start: 08-08-2023 End: 08-08-2023 ambulatory JAMAR STOCK [facility] Start: 08-04-2023 Telephone encounter Ji Magdaleno [facility] Comment on above: Workers comp Start: 08-03-2023 End: 08-03-2023 ambulatory JI FAJARDO Facility:[facility] Start: 08-03-2023 End: 08-03-2023 Subsequent hospital visit by physician [facility] Mary (1.5t) Work Phone: Radiology Comment on above: Worsening headaches [R51.9] Start: 08-02-2023 End: 08-02-2023 ambulatory JI FAJARDO Facility:[facility] Start: 08-02-2023 End: 08-02-2023 Office outpatient new 45 minutes Ji Fajardo MD Work Phone: Neurology Headache [facility] Comment on above: Worsening headaches (Primary Dx); Dizziness; Toxic effect of lead, accidental or unintentional, initial encounter Start: 08-02-2023 Telephone encounter Ji Magdaleno Neu[facility] Start: 08-01-2023 ambulatory Digna Chavez RN [facility] Start: 08-01-2023 Patient encounter procedure Digna Chavez RN NURSE STUDENT OUTREACH COORDINATOR Comment on above: Referral Request Start: 06-21-2023 End: 06-21-2023 ambulatory [facility]IE [facility] Start: 06-20-2023 End: 06-20-2023 ambulatory INDU VOGT [facility] Start: 06-02-2023 End: 06-03-2023 ambulatory JOHN MEEKS [facility] Start: 06-01-2023 End: 06-03-2023 Emergency department patient visit MAINE BURGOS [facility] Start: 06-01-2023 [...] on above: Performed By: #### LEADA #### [facility] [address] [place] [address] Dr. Rachel Cortez Plan of Treatment Date Care Activity Detail Author Start: 06-02-2026 Diabetes Screening Diabetes Screenin g [facility] Start: 06-02-2024 Adult BMI Screening Adult BMI Screen ing [facility] Start: 06-01-2024 Tobacco Screening Tobacco Screening [facility] Start: 12-24-2023 Covid-19 Vaccine () Covid-19 Vaccine () [facility] Start: 12-24-2023 Influenza vaccination [facility] Start: 11-08-2023 End: 11-08-2023 Patient encounter procedure 11/08/2023 11:00 AM EDT Office Visit Neurology [address] [place] [address] Gina Dooley, PROVISIONING ANALYST.SCIENTIFIC AIDE [address] [place] [address] Neurology Start: 07-29-2023 Diabetes Screening Diabetes Screenin g [facility] Start: 07-29-2023 Screening for malign ant neoplasm of colon [facility] Start: 04-24-2023 Behavioral Health Screening Behavioral Health Screening [facility] Start: 12-23-2022 Covid-19 Vaccine () Covid-19 Vaccine () [facility] Start: 2013 Lipid panel Lipid Screening [facility] Start: 1997 DTaP,Tdap and Td Vac cines (1 - Tdap) DTaP,Tdap and Td Vaccines (1 - Tdap) [facility] Start: 1997 Hepatitis B Vaccine (1 of 3 - 19+ 3-dose series) Hepatitis B Vaccine (1 of 3 - 19+ 3-dose series) [facility] Start: 1997 Urine microalbumin profile DTaP,Tdap,Td Vaccine (1 - Tdap) [facility] Start: 1996 Anxiety Screening Anxiety Screening [facility] Start: 1996 Depression Screening Depression Scre ing [facility] Start: 1996 Hepatitis C screening Hepatitis C Sc reening [facility] Start: 1996 HIV screening HIV Screening [facility] Start: 1990 Depression Screening Depression Scre [facility] Payers Date Payer Category Payer Unknown [id number] 2022 Unknown [id number] 2022 Unknown [id number] 2022 Commercial Managed [facility] [id number] 2020 Self-pay 1980 Unknown [id number]. 593 1978 Unknown [id number]. 593 1978 Unknown [id number] 2.16.840.1.926734.3.579.2. 593 1978 Unknown [id number] 2.16.840.1.618589.3.579.2. 593 1978 Unknown [id number] 2.16.840.1.450365.3.579.2. 593 1978 Unknown [id number] 2.16.840.1.417946.3.579.2. 593 1978 Unknown [id number] 2.16.840.1.762613.3.579.2. 1286 1978 Unknown [id number] 2.16.840.1.304667.3.579.2. 128 1978 Unknown [id number] 2.16.840.1.966742.3.579.2. 128 1978 Unknown [id number] 2.16.840.1.262792.3.579.2. 727 1978 Unknown [id number] 2.16.840.1.134589.3.579.2. 727 1978 Unknown [id number] 2.16.840.1.534729.3.579.2. 727 1978 Unknown [id number] 2.16.840.1.570160.3.579.2. 727 1978 Unknown [id number] 2.16.840.1.065208.3.579.2. 727 1959 Unknown [id number] Social History Date Type Detail Facility [facility] Start: 1980 Sex Assigned At Not on file [facility] Start: 10-03-2018 End: 08-02-2023 Gender identity Not on file [facility] Start: 08-02-2023 End: 02-01-2024 Tobacco smoking status NHIS Never smoked tobacco [facility] Start: 06-01-2023 End: 08-02-2023 Tobacco use and exposure Smokeless tobacco non-user [facility] Start: 10-03-2018 End: 08-02-2023 History of Social function [facility] National Score (1-100), lower number is lower risk 73 [facility] Start: 06-01-2023 Alcoholic beverage intake Ex-drinker (finding) [facility] [employer] [facility] Start: 11-27-2014 Sex Male (finding) [facility] Goals Date Patient Goal Desired Activity /State Personal health goal Comment on above: Formatting of this n ote might be different from the original. Evaluation of progress towards goal: awaiting test results Functional Status Date Assessment Result Facility 02-26-2024 Functional Status N/A [facility] 02-01-2024 Functional Status N/A [facility] Clinical Notes 06-20-2023 to 02-26-2024 [...] reduce GERD symptoms. Medicines. These may include: ?Swjd-kep-jzdtopa antacids. ?Medicines that make your stomach empty [...] may include: ?Fatty foods, like fried foods. ?[place]ard fruits, like oranges or lemon. ?Other foods [...] Do not drink alcohol. General instructions Take swsc-ust-llseubf and prescription medicines only as told by [...] provider. Document Revised: 06/07/2022 Document Reviewed: 06/07/2022 [employer] Patient Education 2023 [employer]. 02/26/2024 16:20:33 Gastritis, Adult, Whri-zg-Msnh Gastritis, Adult Gastritis is irritation and swelling [...] Follow these instructions at home: Medicines Take fatz-chn-ovbxlof and prescription medicines only as told by [...] provider. Document Revised: 08/14/2021 Document Reviewed: 08/14/2021 [employer] Patient Education 2023 [employer]. 02/26/2024 16:20:32 Endoscopy, Care After Procedure [facility] Endoscopy Care After Procedure Please read [...] blood. Document Released: 11/22/2004 Document Re-Released: 10/02/2006 [employer] Patient Information Curriculet. 02/26/2024 16:20:30 Hemorrhoids, Lavl-dg-Jhxu Hemorrhoids Hemorrhoids are swollen veins that may [...] Follow these instructions at home: Medicines Take mxwj-xwf-akynska and prescription medicines only as told by [...] provider. Document Revised: 12/21/2022 Document Reviewed: 12/21/2022 [employer] Patient Education 2023 [employer]. 02/26/2024 16:20:27 Colon Polyps Colon Polyps Colon [...] hard liquor (44 mL). General instructions Take ewpe-kba-emtiasu and prescription medicines only as told by [...] provider. Document Revised: 07/29/2020 Document Reviewed: 07/29/2020 [employer] Patient Education 2023 [employer]. 02/26/2024 16:20:26 Colonoscopy, Care After Surgery Salam [...] severe or gets worse throughout the day. [facility] 02-26-2024 Note Progress Note-Physic issa Patient: REY BAXTER Age: 43 years Sex: Male : 1980 Associated Diagnoses: None Author: Malachi Garcia MD Postoperative Information Postoperative disposition: Postoperative disposition: To PACU. Optimetrix number: Optimetrix number [id number]. Anesthetic utilized: General. Health Status Allergies: Allergic [...] when meets criteria ( To home ). [facility] Comment on above: Result Comment: Elec tronically Signed By: Malachi Garcia MD\.br\Date and Time Signed: 02/26/24 16:33 EST 02-26-2024 Note Progress Note-Physic issa Patient: REY BAXTER Age: 43 years Sex: [...] kg, 1.89, m2 Sodium Chloride 0.9% IV Roxanne 1000 mL 1,000 mL: 1,000 mL, IV, 20 mL/hr, Routine, Start date 02/26/24 6:42:00 EST, 50 hour(s), Total volume (mL): 1,000, 72 kg, 1.89, m2 Prescriptions Prescribed Bentyl 10 mg Cap: 10 mg = 1 cap(s), Oral, QID, PRN Pain, X 14 day(s), # 60 cap(s), Refills(s) 3, Pharmacy: [facility], 178, cm, 02/01/24 14:47:00 EDT, Height/Length [...] All Problems Acute cystitis / SNOMED CT 186801255 / Confirmed Atrial fibrillation / SNOMED CT 64427063 / Confirmed Blood lead level above reference range / SNOMED CT 5611789472 / Confirmed Gastritis / SNOMED CT 6503562 / Confirmed Gastroenteritis / SNOMED CT 21977006 / Confirmed Gastroesophageal reflux disease / SNOMED CT 575404650 / Confirmed Inguinal lymphadenopathy / SNOMED CT 967382 / Confirmed Intussusception of small bowel / SNOMED CT 2677345192 / Confirmed Left lower quadrant pain / SNOMED CT 034570534 / Confirmed Lumbar radiculopathy / SNOMED CT 679760185 / Confirmed Obstructive sleep apnea syndrome / SNOMED CT 379744726 / Confirmed Osteoarthritis of knee / SNOMED CT 854196251 / Confirmed Paroxysmal atrial fibrillation / SNOMED CT 170806306 / Confirmed Pleuri (more content not included)... [facility] Comment on above: Result Comment: Elec [...] Document Re-Released: 10/02/2006 [employer]Care??? Patient Information ???2009 [place]. Colonoscopy Care After Surgery Please read the [...] with a weaknes (more content not included)... [facility] 02-26-2024 Note Endoscopic Procedure Report - Other Patient: REY BAXTER Age: 43 years Sex: Male : 1980 Associated Diagnoses: None Author: Julio Mckinley MD Pre-Procedure Procedure Date 02/26/2024 16:14:00 . Procedure Type: Colonoscopy with removal of tumor(s), polyp(s), or other lesion(s) by cold snare technique. Procedure provider Performed by Juloi Mckinley MD. Current history and physical Documented [...] day(s), # 60 cap(s), Refills(s) 3, Pharmacy: [facility], 178, cm, 02/01/24 14:47:00 EDT, Height/Length [...] images: Rec_hd_video___[id number] pg Rec_hd_video___19_505.j pg Rec_hd_video__21_09_083.j pg Rec1_hd_video___48_624.j pg Rec1_hd_video_2023__T1__32_251.j pg Rec1_hd_video_2023____56_411.j pg Rec1_hd_video_2023__T1__22_128.j pg . Post-Procedure Complications: none. Nyasia (more content not included)... [facility] Comment on above: Result Comment: Elec tronically Signed By: Julio Mckinley MD\.br\Date and Time Signed: 02/26/24 16:16 EST Other Comment: Cynthia johnson Attachment - attachment storage system not supported [id number] Can be viewed in source system Missing Attachment - attachment storage system not supported [id number] Can be viewed in source system Missing Attachment - attachment storage system not supported [id number] Can be viewed in source system Missing Attachment - attachment storage system not supported [id number] Can be viewed in source system Missing Attachment - attachment storage system not supported [id number] Can be viewed in source system Missing Attachment - attachment storage system not supported [id number] Can be viewed in source system Missing Attachment - attachment storage system not supported [id number] Can be viewed in source system 02-26-2024 [...] rule out celiac disease Images Procedure images: Rec1_hd_video_4__04T16_04_53_306.j pg Rec1_hd_video_4__04T16_04_35_015.j pg Rec1_hd_video_4_11_04T16_03_53_396.j pg Rec1_hd_video_4_11_04T16_03_39_773.j pg Rec1_hd_video_4_11_04T16_02_44_682.j pg Rec1_hd_video_4_11_04T16_02_37_632.j pg Rec1_hd_video_4_11_04T16_02_15_752.j pg . Post-Procedure Complications: none. Estimated blood [...] in GI clinic in 1-2 after discharge [facility] Comment on above: Result Comment: Elec tronically Signed By: Elías ROTH, Julio Pond\.br\Date and Time Signed: 02/26/24 15:56 EST Other Comment: Cynthia ng Attachment - attachment storage system not supported [id number] Can be viewed in source system Missing Attachment - attachment storage system not supported [id number] Can be viewed in source system Missing Attachment - attachment storage system not supported 7374874 Can be viewed in source system Missing Attachment - attachment storage system not supported 5032752 Can be viewed in source system Missing Attachment - attachment storage system not supported [id number] Can be viewed in source system Missing Attachment - attachment storage system not supported [id number] Can be viewed in source system Missing Attachment - attachment storage system not supported [id number] Can be viewed in source system 02-26-2024 Note History and Physical Patient: REY BAXTER Age: 43 years Sex: Male : 1980 Associated Diagnoses: None Author: Elías ROTH, Julio Pond Preoperative Information Indication for procedure and diagnosis: [...] day(s), # 60 cap(s), Refills(s) 3, Pharmacy: [facility], 178, cm, 02/01/24 14:47:00 EDT, Height/Length [...] All Problems Atrial fibrillation / SNOMED CT 04543970 / Confirmed Acute cystitis / SNOMED CT 588168620 / Confirmed Gastritis / SNOMED CT 8295876 / Confirmed Gastroenteritis / SNOMED CT 92539438 / Confirmed Gastroesophageal reflux disease / SNOMED CT 400740590 / Confirmed Blood lead level above reference range / SNOMED CT 8025308748 / Confirmed Left lower quadrant pain / SNOMED CT 567203620 / Confirmed Inguinal lymphadenopathy / SNOMED CT 718963 / Confirmed Obstructive sleep apnea syndrome / SNOMED CT 178341409 / Confirmed Osteoarthritis of knee / SNOMED CT 872163299 / Confirmed Lumbar radiculopathy / SNOMED CT 421765201 / Confirmed Paroxysmal atrial fibrillation / SNOMED CT 509022033 / Confirmed Ventricular bigeminy / SNOMED CT 93391198 / Confirmed Urinary incontinence / SNOMED CT 6554195003 / Confirmed Right upper quadrant pain / SNOMED CT 029726119 / Confirmed Pleurisy / SNOMED CT 144027279 / Confirmed Intussusception of small bowel / SNOMED CT 9136025890 / Confirmed Screen for colon cancer / SNOMED CT 595392527 / Confirmed Histories Past Medical History: No [...] Substance Abuse 02/01/20 (more content not included)... [facility] Comment on above: Result Comment: Elec tronically Signed By: Elías ROTH, Julio Pond\.br\Date and Time Signed: 02/26/24 15:50 EST 02-26-2024 Evaluation + Plan note Extrac mary from: Title:ANES Post-operative Note---General Author: Malachi Garcia MD Date:02/26/24 Plan Transfer/Discharge: Transfer/Discharge Discharge when meets criteria ( To home ). Extracted from: Title:ANES Pre-operative Note 2022 Author:Malachi Mcclain Date:02/26/24 Plan [place] [employer]esthesi[employer] (ASA) physical status classification: Class III. Anesthetic Preoperative Plan: Anesthesia General. Extracted from: Title:1Preop H&P Author:Julio Mckinley MD Date:02/26/24 Impression and Plan Impression: gerd, anemia, screening Plan: -EGD and Colonoscopy Future Appointments Appointment Date:03/11/2024 09:30:00 AM Scheduled Provider:Julio Mckinley MD [place] Type[facility] Follow Up [facility] 10-18-2024 History of Present illness Narrative* Magda Benitez LPN - 02/09/2024 9:40 AM EDT LVM for Fara Kim at [facility] to notify that office is not [facility] certified and can not accept pt. Left return call back number if any questions or concerns arise. Magda BELLE [facility] [employer] [id number] History of Present illness Narrative* Magda Benitez LPN - 02/08/2024 9:49 AM EDT Received referral for Dr. Mart from [facility]. Order placed in system and referral scanned into chart. Note written in referral, staff needs to check if Dr. Mart is [facility] certified and if so referral office needs to place a C9. Magda BELLE [facility]ign H[facility]ology [facility] NoteUT Electrophysiology Consult Note Reason for visit: afib, chest pain , palpitations HPI: Rey Baxter is a 43 y.o. year old with past medical history of Lumbar radiculopathy, GERD, HERIBERTO, fatigue, paroxysmal A-fib,, lead toxicity. Patient was referred to our clinic for A-fib he was seen recently at [facility] and was found to be in A-fib [...] his lead toxicity Patient was referred to [facility] but it seems as though no one [...] Murmur: not heard Extrem (more content not included)...[facility] 08-10-2023 NoteHNO ID: [id number] Author: JEAN LEY PT Service: ? Author [...] Planned: (4) Planned Treatment Interventions: Neuromuscular re-education (07652), Manual therapy (54436), Therapeutic activities (31649), Self-prison management (09206), Therapeutic exercise (46738), Patient/Family/Caregiver Education PLAN FOR NEXT VISIT: Patient [...] WITH LEVEL OF FUNCTION: Positional Testing Left Savannah-Hallpike: Asymptomatic Right Nylen Barany: Asymptomatic Supine Head [...] Gait and vertical head (more content not included)...[facility] 08-10-2023 History of Present illness Narrative* Jean Ley PT - 08/10/2023 10:06 AM EDT Program_ID:[id number] Access Code: [email or web address] URL: [email or web address] Date: 08-10-2023 Prepared By: Jean Ley Program [...] 3 sets - 10 reps * Jean Ley PT - 08/10/2023 9:30 AM EDT Images [...] Planned: (4) Planned Treatment Interventions: Neuromuscular re-education (84747), Manual therapy (82203), Therapeutic activities (75913), Self-prison management (26027), Therapeutic exercise (43872), Patient/Family/Caregiver Education PLAN FOR NEXT VISIT: Patient [...] Yes Description: soreness Rating of current symptoms: 610 Frequency: Intermittent Duration: minutes Ear Symptoms: No [...] WITH LEVEL OF FUNCTION: Positional Testing Left Savannah-Hallpike: Asymptomatic Right Nylen Barany: Asymptomatic Supine Head [...] States/Identifies, Return Demonstration TREATMENT: PT Treatment Interventions: Self-Senior Living Management, Manual Therapy, Neuromuscular Re-Education Evaluation Therapeutic [...] 932 Jean Ley PT documented in this encounterOhiohealth04-16-2024 NoteUT Electrophysiology Consult Note Reason for visit: afib, chest pain , palpitations HPI: Rey Baxter is a 43 y.o. year old with past medical history of Lumbar radiculopathy, GERD, HERIBERTO, fatigue, paroxysmal A-fib,, lead toxicity. Patient was referred to our clinic for A-fib he was seen recently at [facility] and was found to be in A-fib [...] his lead toxicity Patient was referred to [facility] but it seems as though no one [...] s2, no gallop Systo (more content not included)...[facility] 08-04-2023 Miscellaneous Notes* Telephone Encounter - Zander Denson MA - 08/04/2023 9:08 AM EDT Patient records received via electronic fax. Uploaded to [employer] via [employer]. Please review in scanned documents tab of chart review. Zander Denson MA documented in this encounterOhiohealth04-11-2024 NoteHNO ID: [id number] Author: MATTHEW BANERJEE CT Service: ? Author [...] PATIENT PRESENTS WITH AN IMPLANTABLE OR ATTACHED AGRICULTURE SCIENCE TEACHER: No ALLERGIES: Reviewed and unchanged CONTRAST ALLERGY: NO. EXAM: MRI - CONTRAST TYPE: GROUP II PERIPHERAL IV DATA: Ambulatory: A peripheral IV was started in the Left antecubital site with a Angio cath: 24 gauge. RADIOLOGY DEPARTMENT: MR; Exam(s) Completed: Head: Routine Brain SIGNATURE: TATI Tolbert PATIENT NAME: Rey Baxter DATE: August 03, 2023 TIME: 3:06 [facility]04-11-2024 History of Present illness Narrative* Matthew Banerjee [...] PATIENT PRESENTS WITH AN IMPLANTABLE OR ATTACHED AGRICULTURE SCIENCE TEACHER: No ALLERGIES: Reviewed and unchanged CONTRAST ALLERGY: NO. EXAM: MRI - CONTRAST TYPE: GROUP II PERIPHERAL IV DATA: Ambulatory: A peripheral IV was started in the Left antecubital site with a Angio cath: 24 gauge. RADIOLOGY DEPARTMENT: MR; Exam(s) Completed: Head: Routine Brain SIGNATURE: TATI Tolbert PATIENT NAME: Rey Baxter DATE: August 03, 2023 TIME: 3:06 PM documented in this encounterOhiohealth04-10-2024 NoteHNO ID: [id number] Author: JI FAJARDO MD Service: ? 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 Lead is not being chelated at [...] worsening headaches. Pt needs MRI-Brain to r/o DELIVERY PROFESSIONAL changes from heavy metal toxicity. Pt can trial nortriptyline 10 mg po qhs in the interim for symptomatic relief. Return 3 months or sooner if needed. Ji Fajardo MD August 04, 2023 2:09 PM documented in this encounterOhiohealth04-09-2024 Miscellaneous Notes* Telephone Encounter - Digna Chavez RN - 08/01/2023 5:12 PM EDT Patient calling with request for physician referral: Patient referred to Neurology Department. . Patient denies any new or worsening symptoms of which a provider is not aware: Yes. Ac took call back over for scheduling. documented in this encounterOhiohealth02-28-2024 NoteUT Electrophysiology Consult Note Reason for visit: afib, chest pain , palpitations, new pt HPI: Rey Baxter is a 42 y.o. year old with past medical history of Lumbar radiculopathy, GERD, HERIBERTO, fatigue, paroxysmal A-fib,, lead toxicity. Patient was referred to our clinic for A-fib he was seen recently at [facility] and was found to be in A-fib [...] his lead toxicity Patient was referred to [facility] [place] but it seems as though no one [...] rales, no rhonchi C (more content not included)...[facility]02-28-2024 NoteTC to DENTAL BILLING SPECIALIST internal referral for: T56.0X1S (ICD-10-CM) - Toxic effect of lead, accidental or unintentional, sequela PT states he will call back to schedule. Clinic number provided. [facility]02-27-2024 NoteThis writer editor was consulted by Dr. Vogt to assist patient with workers comp claim and resources for lead poisoning. This writer editor met with patient following his visit with Dr. Vogt and provided him the [place] [employer] Workers' Compensation contact. This writer editor informed patient resources on lead poisoning will be researched as this writer editor does not currently have information. The patient stated Dr. Vogt provided him with poison control's contact and he plans to call them. This writer editor will research additional resources.[facility]02-27-2024 NoteHEMATOLOGY ONCOLOGY CONSULT NOTE Reason for consult: Chief Complaint: History of present illness: The patient is a 42 y.o. male with PMHx of that presented with lead poisoning. Company makes plaques . Patient melts of the same and 06/01/2023 Lead,Blood,Venipuncture Order: [id number] Component Ref Range & Units 2 wk ago Lead <3.5 mcg/dL 33.8 High Comment: NOTE Patient had lead testing at [place] and was 43 Upon evaluation, No results found for: WBC , HGB , HCT , MCV , PLT Order: [id number] Component Ref Range & Units 2 wk [...] 0.0 - 0.2 X10E9/L 0.[address] [facility] Specimen Collected: 06/01/23 15:10 Performed by: [employer] Last Resulted: 06/01/23 15:22 Received From: [employer] Result Received: 06/20/23 13:09 View Encounter Received Information Result Report CBC auto differential (Order #[id number]) on 06/01/23 Lab Component SmartPhrase Guide CBC auto differential (Order #[id number]) on 06/01/23 Additional PMHx includes afib passed out work and was admitted in [place] and has been on eliquis since jun 02 by cardiology Hematologic / Oncologic hx: - Family hx of malignancy/blood disorder: none - Primary Bottom Liner/Oncologist:none - Established diagnoses: Lead poisoning will be [...] 2. Screening for col (more content not included)...[facility] Future Appointments Appointment Date:02/26/2024 02:45:00 PM Scheduled Provider: Location:[facility] Appointment Type:Surgery FT Appointment Date:03/11/2024 09:30:00 AM Scheduled Provider:Julio Mckinley MD [place] Type[facility] Follow Up [facility] Evaluation note* Diagnosis Worsening headaches- Primary Headache Dizziness Dizziness and giddiness Toxic effect of lead, accidental or unintentional, initial encounter documented in this encounter [facility]* Diagnosis Dizziness Dizziness and giddiness documented in this encounter [facility]* Diagnosis Worsening headaches Headache documented in this encounter [facility] note* Diagnosis Lead toxicity, accidental or unintentional, initial encounter- Primary documented in [facility] Narrative No data available for this section [facility] Hospital Discharge instructions No data available for this section [facility] InstructionsNot on filedocumented in this encounter [facility] System[facility]Not on filedocumented in this encounter [facility] note No data available for this section [facility] Summary Purpose Family History No Family History Records FoundNo Family History Records FoundNo Family History Records FoundNo Family History Records Found No data available for this section No data available for this section No Family History Records Found No data available [...] headaches Procedures PROVIDER ORDERED FOLLOW UP OFFICE/OUTPATIENT COUNT INCLUDES THE [facility] MDM 60 MINUTES Ji Fajardo MD [address] [place], [place] [id number] Referral ID Status Reason Start Date Expiration Date Visits Requested Visits Authorized [id number] Pending Review PCP Requested Referral 11/01/2023 08/01/2024 1 1 Specialty Diagnoses / Procedures Referred By Contac t Referred To Contact [facility] Diagnoses Dizziness Procedures CONSULT TO PHYSICAL THERAPY PHYSICAL THERAPY EVALUATION HIGH COMPLEX 45 MINS Ji Fajardo MD [address] [place] [phone] [facility] [place] [address] [place] [address] Referral ID Status Reason Start Date Expiration Date Visits Requested Visits Authorized [id number] Pending Review Auto-Generat ed Referral 08/02/2023 08/01/2024 1 1 Specialty Diagnoses / Procedures Referred By Contac t Referred To Contact MR IMAGING Diagnoses Worsening headaches Procedures MRI BRAIN WO/W IVCON MRI BRAIN BRAIN STEM W/O W/CONTRAST MATERIAL Ji Fajardo MD [address] [place] [phone] Mr Imaging [id number] Referral ID Status Reason Start Date Expiration Date V isits Requested Visits Authorized [id number] Closed Auto-Generate d Referral 08/02/2023 08/31/2024 1 1 Additional Source Comments (unrecognized sect ion and content) No Status Records FoundNo Status Records FoundNo Status Records FoundNo Status Records FoundNo Status Records FoundNo Status Records FoundNo Status Records Found INFORMATION SOURCE (unrecogn ized section and content) DATE CREATED AUTHOR 09/05/2022 [facility] DATE CREATED AUTHOR AUTHOR'S ORGANIZ ATION 06/05/2023 [facility] DATE CREATED AUTHOR AUTHOR'S ORGANIZ ATION 08/14/2023 [facility] DATE CREATED AUTHOR AUTHOR'S ORGANIZ ATION 01/28/2024 [facility] DATE CREATED AUTHOR AUTHOR'S ORGANIZ ATION 03/06/2024 [facility] DATE CREATED AUTHOR AUTHOR'S ORGANIZ ATION 03/12/2024 [facility] DATE CREATED AUTHOR AUTHOR'S ORGANIZ ATION 05/12/2024 [facility] Source Comments (unrecognize d section and content) In the event this informatio n is protected by the Federal Confidentiality of Alcohol and Drug Abuse Patient Records regulations: The Federal rules restrict any use of the information to criminally investigate or prosecute any alcohol or drug abuse patient.OhiohealthIn the event this information is protected by the Federal Confidentiality of Alcohol and Drug Abuse Patient Records regulations: The Federal rules restrict any use of the information to criminally investigate or prosecute any alcohol or drug abuse patient.OhiohealthIn the event this information is protected by the Federal Confidentiality of Alcohol and Drug Abuse Patient Records regulations: The Federal rules restrict any use of the information to criminally investigate or prosecute any alcohol or drug abuse patient.OhiohealthIn the event this information is protected by the Federal Confidentiality of Alcohol and Drug Abuse Patient Records regulations: The Federal rules restrict any use of the information to criminally investigate or prosecute any alcohol or drug abuse patient.OhiohealthIn the event this information is protected by the Federal Confidentiality of Alcohol and Drug Abuse Patient Records regulations: The Federal rules restrict any use of the information to criminally investigate or prosecute any alcohol or drug abuse patient.OhiohealthIn the event this information is protected by the Federal Confidentiality of Alcohol and Drug Abuse Patient Records regulations: The Federal rules restrict any use of the information to criminally investigate or prosecute any alcohol or drug abuse patient.[facility] Reason for Visit (unrecogniz ed section and content) Reason Comments Referral Request Reason Comments Workers comp Reason Comments New Patient Headaches Specialty Diagnoses / Procedures Referred By Aide t Referred To Contact Neurology / HEADACHE Diagnoses Intake Simon / RM [address] GARCIA, Numbness/tingling, Dizziness, Confusion. Procedures NEW NEUR HEADACHE Ashley Foster CNP [address] [place] [address] Ji Fajardo MD [address] [place] [phone] Referral ID Status Reason Start Date Expiration Date V isits Requested Visits Authorized [id number] Authorized 07/10/2023 01/10/2024 2 2 Reason Comments PT Eval Specialty Diagnoses / Procedures Referred By Contac t Referred To Contact [facility] Diagnoses Dizziness Procedures CONSULT TO PHYSICAL THERAPY PHYSICAL THERAPY EVALUATION HIGH COMPLEX 45 MINS Ji Fajardo MD [address] [place], [place] [phone] [facility] [place] [id number] Referral ID Status Reason Start Date Expiration Date Visits Requested Visits Authorized [id number] Pending Review Auto-Generat ed Referral 08/02/2023 08/01/2024 1 1 Reason Comments Radiology MRI Specialty Diagnoses / Procedures Referred By Contac t Referred To Contact MR IMAGING Diagnoses Worsening headaches Procedures MRI BRAIN WO/W IVCON MRI BRAIN BRAIN STEM W/O W/CONTRAST MATERIAL Ji Fajardo MD [address] [place] [id number] Mr Imaging [id number] Referral ID Status Reason Start Date Expiration Date V isits Requested Visits Authorized [id number] Closed Auto-Generate d Referral 08/02/2023 08/31/2024 1 1 Care Teams (unrecognized sec tion and content) C D Area Supervisor Relationship Specialty Start Date End Date Ollie Pitt [address] [place] [address] 06/26/23 Ashley Foster CNP [address] [place] [address] Referring Family Medicine 07/26/23 C D Area Supervisor Relationship Specialty Start Date End Date Ollie Pitt [address] [place] [address] 06/26/23 Ashley Foster CNP [address] [place] [address] Referring Family Medicine 07/26/23 C D Area Supervisor Relationship Specialty Start Date End Date Ollie Pitt [address] [place] [address] 06/26/23 Ashley Foster CNP [address] [place] [address] Referring Family Medicine 07/26/23 C D Area Supervisor Relationship Specialty Start Date End Date Ollie Pitt [address] [place] [address] 06/26/23 Ashley Foster CNP [address] [place] [address] Referring Family Medicine 07/26/23 C D Area Supervisor Relationship Specialty Start Date End Date Ollie Pitt [address] [place] [address] 06/26/23 Ashley Foster CNP [address] [place] [address] Referring Family Medicine 07/26/23 C D Area Supervisor Relationship Specialty Start Date End Date Ollie Pitt NP [address] [place] [address] 06/26/23 Ashley Foster CNP [address] [place] [id number] Referring Family Medicine 07/26/23 C D Area Supervisor Relationship Specialty Start Date End Date Irena Jeffery MD PCP - General Family Medicine 06/01/23 C D Area Supervisor Relationship Specialty Start Date End Date Irena [...] BE BASED ON THE PRIMARY CLINICAL RECORDS. [facility] [employer] [facility]. provides no warranty or guarantee of the accuracy or completeness of information in this document.
--- NOTE | 2024-05-18 18:32 | ED_ITS ---
HPI HPI - Head Injury General Chief complaint: Epistaxis Stated complaint: Nose Injury Time Seen by Provider: 05/18/24 18:14 Source: patient Mode of arrival: walk-in Limitations: no limitations History of Present Illness HPI Narrative: The patient was wrestling with a family member tonight when he accidentally got struck in the nose. He had a tiny bit of bleeding but that stopped almost immediately he came to the emergency department to see if his nose is broken and to see if we can do surgery tonight if it was. No loss of consciousness no vomiting or seizure activity. No complaint at this time other than some nose pain and some swelling at the bridge of the nose Related Data Home Medications ?Medication ?Instructions ?Recorded ?Confirmed citalopram 20 mg tablet 20 mg PO .QD 06/27/23 06/27/23 Previous Rx's ?Medication ?Instructions ?Recorded hydroxyzine HCl 25 mg tablet 25 mg PO Q8H PRN anxiety #14 tabs 06/27/23 Allergies Allergy/AdvReac Type Severity Reaction Status Date / Time No Known Drug Allergies Allergy Verified 05/18/24 18:03 Opioid HPI Opioid Management Most Recent Pain and Opioid Data: Last Pain Scale 3 05/18/24 18:09 05/18/24 PFSH PFSH Social History Smoking status: Never smoker Little interest or pleasure in doing things: not at all Feeling down, depressed, or hopeless: not at all Exam Narrative Exam Narrative: Nurses note and vital signs reviewed and patient is not hypoxic. afebrile General: The patient appears well and in no apparent distress. Patient is resting comfortably on cart. GCS = 15. Skin: Warm, dry, no pallor noted. Head: Scalp, forehead, jaw are normocephalic, atraumatic. See below regarding the patient's nose Neck: Supple, trachea mid-line, no tenderness, no lymphadenopathy. Full ROM and no cervical spinal tenderness. The patient has no step-offs or crepitus noted Eyes: PERRLA, EOMI ENT: There is some swelling noted to the bridge of the nose with some tenderness to palpation but no obvious deformity. There is no nasal septal hematoma. No active bleeding at this time. No blood in posterior oropharynx. No dental or oral injury. Cardiovascular: Normal peripheral perfusion Respiratory: Patient is in no distress, no accessory muscle use Neurological: A&O x4, normal equal cobol programmer strength, no truncal ataxia, normal motor, normal sensory. Psychiatric: Cooperative Constitutional Vital Signs, click to edit/add: Last Vital Signs Temp 98 F 05/18/24 17:58 Pulse 69 05/18/24 17:58 Resp 16 05/18/24 17:58 BP 121/78 05/18/24 17:58 Pulse Ox 98 05/18/24 17:58 O2 Del Method Room Air 05/18/24 17:58 Course Vital Signs Vital signs: Vital Signs Temperature 98 F 05/18/24 17:58 Pulse Rate 69 05/18/24 17:58 Respiratory Rate 16 05/18/24 17:58 Blood Pressure 121/78 05/18/24 17:58 Pulse Oximetry 98 05/18/24 17:58 Oxygen Delivery Method Room Air 05/18/24 17:58 Temperature 98 F 05/18/24 17:58 Pulse Rate 69 05/18/24 17:58 Respiratory Rate 16 05/18/24 17:58 Blood Pressure 121/78 05/18/24 17:58 Pulse Oximetry 98 05/18/24 17:58 Oxygen Delivery Method Room Air 05/18/24 17:58 MDM - Head Injury MDM Narrative Medical decision making narrative: I talked to the patient and his spouse, with the patient's request. I informed him that no one would take him to surgery on an emergent basis for a nasal injury and less he had traumatic and widespread trauma to the face. His exam is limited to some swelling on the bridge of the nose and no obvious deformity or nasal septal hematoma. He has no tenderness around the sockets of the eye or elsewhere on the face. He was informed that we would be happy to give him x- rays or CT scanning of the face but it would offer little to no benefit at this time and expose an unnecessary radiation exposure. Ultimately I told him he would best benefit from ice applied to the area, anti-inflammatory pain medicine such as ibuprofen, Tylenol if additional pain is present and then waiting to see how the nose heals and reassess the nasal symmetry once the swelling dissipates. I did give him the information for Dr. Kimbrough, local ENT, if he felt that he needed follow-up for anything related to the shape of the nose once the swelling went away. Discharge Plan Discharge Chief Complaint: Epistaxis Clinical Impression: Contusion of nose Patient Disposition: Home, Self-Care Time of Disposition Decision: 18:36 Prescriptions / Home Meds: No Action citalopram 20 mg tablet 20 mg PO .QD hydroxyzine HCl 25 mg tablet 25 mg PO Q8H PRN (Reason: anxiety) Qty: 14 0RF Print Language: Romanian Instructions: Nasal Contusion (ED) Referrals: Jos Gardner MD [Primary Care Provider] - 1 week Bianca Can MD [Physician] - As needed
== END 2024-05-18 18:46 | disposition home or self-care (01) ==
PROVIDERS: Emergency Provider Emergency Medicine; PCP Family Medicine
DX: S00.33XA Contusion of nose, initial encounter (principal); Y93.83 Activity, rough housing and horseplay
CPT/HCPCS: 99281

== ENCOUNTER 2024-07-06 10:05 | Outpatient (OUT) | payer OTHER, SELFPAY ==
--- OUTSIDE RECORDS SUMMARY | 2024-07-05 15:14 | XMS_ITS | CCD ---
Author Organization [facility] Care Team Providers Care Sales Order Coordinator Name Role Phone LATIA ., DR OSBORN [...] FERGUSON Attending Unavailable MAINE FERGUSON Referring Unavailable OMARY, IRENA M Primary Care Unavailable JOHN MEEKS Attending Unavailable JOHN MEEKS Referring Unavailable IRENA JEFFERY M Primary Care Unavailable Ollie Pitt Unavailable Ashley Foster CNP Unavailable [phone] JI FAJARDO Referring Unavailable SCOTTY, JI Referring Unavailable SCOTTYBRODY BECERRAOLD Attending Unavailable Ollie Pitt NP Unavailable JAMAR STOCK Attending Unavailable OLLIE PITT Attending Unavailable BERNARDO HAYNES Attending Unavailable INDU VOGT Attending Unavailable Irena Jeffery Primary Care Physician Julio Mckinley Attending Unavaila ble SarminiJulio Talal Attending Unavaila ble Sarmini, Kim Talal Referring Unavaila ble Sarmini, Kim Talal Admitting Unavaila ble Sarmini, Kim Talal Attending Unavaila Irena Silver MD Primary Care Provider Julio Mckinley Attending Unavaila ble Sarmini, Kim Talal Attending [...] by mouth. azithromycin 250 mg oral tablet (3 sources) [...] oral solution (3 sources) alpha-Adrenergic Agonist, Uncompetitive M-vadwyz-D-aspartate Receptor Antagonist, Sigma-1 Agonist Start: 05-26-2018 take [...] day(s), # 60 cap(s), Refills(s) 3, Pharmacy: [facility], 178, cm, 02/01/24 14:47:00 EDT, Height/Length Dosing, 72, kg, 02/01/24 14:47:00 EDT, Weight Dosing Start Date: 02/01/24 Stop Date: 03/28/24 Status: Ordered 24 hr metoprolol succinate 25 mg extended release oral tablet (6 sources) beta-Adrenergic Veronica Start: 06-02-2023 take 1 tablet by mouth every twenty-four hours in the morning metoprolol succinate XL (TOPROL XL) 25 mg 24 hr tablet Take 1 tablet (25 mg total) by mouth in the morning. 30 tablet 1 06/03/2023 Active pantoprazole 40 mg delayed release oral tablet [...] 12 hours. citalopram 10 mg oral tablet (11 sources) [...] oral solution (3 sources) Osmotic Laxative Start: 02-01-2024 lactulose 10 g/15 mL Oral Syrup 1800 mL, 0 Refill(s), TAKE 30 ML BY MOUTH TWICE DAILY NEEDED, Refills(s) 0 Start Date: 02/01/24 Status: Ordered nortriptyline 10 mg oral capsule (8 sources) Tricyclic Antidepressant Start: 02-01-2024 nortriptyline 10 mg Cap 30 EA, 0 Refill(s), TAKE 1 CAPSULE BY MOUTH AT BEDTIME, Refills(s) 0 Start Date: 02/01/24 Status: Ordered Start: 08-02-2023 take 1 capsule by [facility] once daily at bedtime nortriptyline (PAMELOR) 10 [...] encounter status 02-01-2024 Unclassified (2 sources) Lead and lead compound poisoning 03-11-2024 Urinary tract infections (3 sources) Acute cystitis [...] Surgical Pathology Reporton 03-01-2024 Surgical Pathology Report [facility] [address] [place] [address]- Surgical Pathology Report Collected Date/Time: 02/26/2024 15:55 EST Pathologist: Diego ROTH PhD, Rachel Elmore Received Date/Time: 02/27/2024 07:27 EST Elías ROTH, Julio Mckinley MD, Julio Appiah Surgical Pathology Report - 03/01/2024 14:15 EST [...] is entirely submitted in one cassette. (DC) DC:[facility] Microscopic Description Microscopic examination performed [...] characteristics were determined by the [facility]. They have not been cleared or approved by the US Food and Drug Administration. The FDA has determined that such clearance or approval is not necessary. These tests are used for clinical purposes. They should not be regarded as investigational or for research. Appropriate positive and negative controls are performed and are acceptable. Normal [facility] Comment on above: Performed By: #### [id number] #### [facility] [address] [place] [address] Main OR Intraoperative Recor don 02-27-2024 Main OR Intraoperative Record Main OR Intraoperative Record IntraOp Document Type FT Summary Primary Physician: Julio Mckinley MD Finalized Date/Time: 02/27/24 14:33:06 Pt. Name: REY BAXTER/Sex: 1980 Male Med Rec #: [id number] Physician: Julio Mckinley MD Financial #: [id number] Pt. 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 Garcia supervising help in room case Last Modified By: Janes Lance RN, RN, Janes Burch RN 02/26/24 16:15:13 02/26/24 16:15:13 02/26/24 16:15:13 Entry [...] rectal polypectomy Primary Procedure Yes Primary Surgeon Elías ROTH, Julio Pond Start 02/26/24 15:51:00 Stop 02/26/24 16:12:00 Anesthesia [...] precautions for (more content not included)... Normal [facility] Discharge Instructionson Discharge Instructions Discharge Instructions REY [...] AM EST With: Julio Mckinley MD Where: [facility] [address] [place] [address]- Medications What How Much When Instructions Next [...] time. In (more content not included)... Normal [facility] Comment on above: Result Comment: Elec tronically Signed By: Ayla Gage I\.br\Date and Time Signed: 02/26/24 16:20 EST Inpatient Patient Summaryon 02-26-2024 Inpatient Patient Summary Inpatient Patient Summary [place] [id number] [facility] Clinical Discharge Instructions PERSON INFORMATION Name: REY BAXTER PHYSICIANS Admitting Physician: Julio Mckinley MD Attending Physician: Julio Mckinley MD PCP: Latia ROTH, Irena Discharge Diagnosis: Chronic GERD; Colon cancer screening Comment: PATIENT EDUCATION INFORMATION Instructions: Medication Leaflets: Follow up: Type Location Start [facility] Follow Up [facility] [place] [place] [facility] 03/11/2024 9:30 AM 03/11/2024 9:45 [...] Responsible Provider: Irena Jeffery MD Comment: Cherelle [facility] Main OR PACU II Recordon Main OR PACU II Record Main OR PACU II Record PACU Phase II Document Type FT Summary Primary Physician: Julio Mckinley MD Finalized Date/Time: 02/26/24 16:44:59 Pt. Name: REY BAXTER/Sex: 1980 Male Med Rec #: [id number] Physician: Julio Mckinley MD Financial #: [id number] Pt. Type: O Room/Bed: / Admit/Disch: 02/26/24 [...] By: Ayla Gage I 02/26/24 16:44 Normal [facility] Main OR Preoperative Recordo n 02-26-2024 Main OR Preoperative Record Main OR Preoperative Record Holding Area Document Type FT Summary Primary Physician: Julio Mckinley MD Finalized Date/Time: 02/26/24 14:02:22 Pt. Name: REY BAXTER/Sex: 1980 Male Med Rec #: [id number] Physician: Julio Mckinley MD Financial #: [id number] Pt. Type: O Room/Bed: / Admit/Disch: 02/26/24 13:41:31 - Institution: Case Times Holding FT Pre-Care Text: Verifies consent for planned procedure, identifies individual values and wishes concerning care, includes family members in perioperative teaching Secures patient's records' belongings, and valuables, maintains patient's dignity and privacy, and maintains patient confidentiality Entry 1 In Holding 02/26/24 13:49:00 Outcomes Met? Yes Last Modified By: Guerline Vaughn RN 02/26/24 14:01:30 Post-Care Text: The patient participates [...] By: Guerline Vaughn RN 02/26/24 14:02 Normal [facility] Outpatient Surgery Discharge Instructionon 02-26-2024 Outpatient Surgery Discharge Instruction Outpatient Surgery Discharge Instruction [place] [id number] Patient Discharge Instructions PERSON INFORMATION Name: REY [...] Signature Date Follow up: Type Location Start [facility] Follow Up [facility] [place] [place] [facility] 03/11/2024 9:30 AM 03/11/2024 9:45 AM Confirmed Pharmacy Information: You may receive a survey from Wendy Kamara asking you to rate your care experience. Your feedback is important and will help us understand what we do well and how we can improve the quality of care we provide to you, your loved ones and our community. It???s an honor to serve you. Thank you for choosing [facility] HERE ARE THE MEDICATION CHANGES THAT OCCURRED DURING YOUR HOSPITAL STAY Medications to Continue with No Changes Other Medications apixaban (Eliquis 5 mg oral tablet) 60 EA, 0 Refill(s), TAKE 1 TABLET BY MOUTH TWICE DAILY FOR 30 DAYS., Responsible Provider: Latia ROTH, Irena Troncoso aspirin (aspirin 81 mg Oral EC Tab) [...] MD PATIENT EDUCATION INFORMATION Instructions: Medication Leaflets: [facility] Gastroenterology Office/Clin ic Noteon 02-01-2024 Gastroenterology [...] GLP-1 agonists? no CT abd/pelvis 12/29/23 @ [facility]: IMPRESSION: 1. Nonobstructing left mid abdominal small [...] E&M of New Patient Moderate 45-59 Min 12119 EGD Endoscopy (Hospital Procedure) 2. LUQ pain [...] E&M of New Patient Moderate 45-59 Min 91500 EGD Endoscopy (Hospital Procedure) 4. Gastroesophageal reflux disease (K21.9: Gastro-esophageal reflux disease without esophagitis) Continue pantoprazole Ordered: Colonoscopy (Hospital Procedure) E&M of New Patient Moderate 45-59 Min 98337 EGD Endoscopy (Hospital Procedure) 5. 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 Never Smokeless Tobacco Use:., 02/01/2024 Normal [facility] Comment on above: Result Comment: Elec tronically Signed By: Elías ROTH, Julio Pond\.margarito\Date and Time Signed: 02/01/24 15:45 EDT Office Visiton 12-18-2023 Follow-up visit [id number] Blanca Baxter 1980 M Date Provider Department Center 12/18/2023 3848-BERNARDO HAYNES [facility] Family History Problem Relation Age of Onset Lupus Mother Muscular dystrophy Mother Diabetes Other Family Status - Relation Status Age at Mother Other Level of Service:33147 [place] OFFICE/OUTPATIENT ESTABLISHED LOW MDM 20 MIN Normal [facility] CNTHERAPYon 08-10-2023 CNTHERAPY OT/PT/Speech Visit ( [facility]) REY BAXTER ([id number]) 1980 M Date Time Provider Department 08/10/23 9:[address] [facility] Date Time Provider Department Center 08/10/2023 9:30 AM [id number]-ZCHAVNMJEAN LEY [facility] Reason for Visit: PT Eval [747] Visit [...] 1 capsule by mouth daily at bedtime. 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 Author Type: Physical Therapist Type: Therapy (PT/OT/Speech/Resp) Filed: 08/10/2023 10:06 Note Text: Program_ID:[id number] Access Code: [email or web address] URL: [email or web address] [email or web address] Date: 08-10-2023 Prepared By: Jean Ley Program [...] - 3 sets - 10 reps Normal [facility] Office Visiton 08-08-2023 Follow-up visit [id number] Blanca Baxter 1980 [facility] Provider Department Center 08/08/2023 241-JAMAR STOCK ARASELI [facility] Family History Problem Relation Age of Onset Lupus Mother Muscular dystrophy Mother Diabetes Other Family Status - Relation Status Age at Mother Other Level of Service:66109 [place] OFFICE/OUTPATIENT NEW MODERATE MDM 45 MINUTES Normal [facility] CNPJoyce 08-04-2023 CNPN Telephone (NUMBHT) REY BAXTER ([id number]) 1980 M Date Time Provider Department 08/04/23 JI FAJARDO During your visit today, we recorded the following information about you: Zander Denson MA 08/04/2023 9:09 AM Signed Patient records received via electronic fax. Uploaded to [employer] via [employer]. Please review in scanned documents tab of [...] Status:Closed by ZANDER DENSON on 08/04/23 Normal [facility] MR Brain WO and W contrast I Josh 08-03-2023 IMPRESSION: Minimal paranasal sinus inflammatory changes. Otherwise normal study. Software Applications Specialist: TAE Transcribe Date/Time: Aug 03 2023 3:53P Dictated by : JAMAR SMITH MD This examination was interpreted and the report reviewed and electronically signed by: JAMAR SMITH MD on Aug 03 2023 3:57PM [facility] DIVISION OF RADIOLOGY * * *Final Report* * * DATE OF EXAM: Aug 03 2023 3:38PM [facility] 0295 - MRI BRAIN WO/W IVCON [...] greater than left. DIVISION OF RADIOLOGY Provider, Meg Saleh - 08/03/2023 * * *Final Report* * [...] paranasal sinus inflammatory changes. Otherwise normal study. Software Applications Specialist: PSCB Transcribe Date/Time: Aug 03 2023 3:53P Dictated by : JAMAR SMITH MD This examination was interpreted and the report reviewed and electronically signed by: JAMAR SMITH MD on Aug 03 2023 3:57PM EST [facility] Radiology Study observation (narrative) [facility] MR Brain WO and W contrast I VOrdered By: Ccf Provider on 08-03-2023 [facility] MRI BRAIN WO/W IVCONon 08-02 MRI BRAIN WO/W IVCON * * *Final Report* * * DATE OF EXAM: Aug 03 2023 3:38PM [facility] 0295 - MRI BRAIN WO/W IVCON [...] paranasal sinus inflammatory changes. Otherwise normal study. Software Applications Specialist: TAE Transcribe Date/Time: Aug 03 2023 3:53P Dictated by : JAMAR SMITH MD This examination was interpreted and the report reviewed and electronically signed by: JAMAR SMITH MD on Aug 03 2023 3:57PM EST [id number] Normal [facility] CNOVon 08-02-2023 CNOV Office Visit ([facility]) REY BAXTER ([id number]) 1980 M Date Time Provider Department 08/02/23 4:00 PM JI FAJARDO [facility] During your visit today, we recorded the following information about you: Pulse Respiration Blood pressure Weight 74/minute 18/minute 115/74 72.4 kg Height 1.778 m Ji Fajardo MD 08/04/2023 2:09 PM Signed [facility] NEW EVALUATION August 04, 2023 4:00 PM Pt is 43 year old male from [place], [place] who presents with headaches that appears subsequent to 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 Lead is not being chelated at [...] iv contrast (more content not included)... Normal [facility] Yumiko 08-02-2023 ANIBAL Telephone (NUMBHT) REY BAXTER ([id number]) 1980 M Date Time Provider Department 08/02/23 [...] Encounter Status:Closed by ZANDER DENSON on 08/03/[address] 06-22-2023 36 Per Ollie Pitt via email: [...] so stress test just needs done catia. [facility] 36 Zywie called this mo rning to [...] the entire left side of his body. 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 7) to keep follow up with the current lead poisoning expert 80 please reach out tp poison control [place] for direction [phone] [facility] CBC AND AUTO DIFFon 06-02-19 24 ABSOLUTE BASOPHIL 0.1 X10E9/L Normal 0.0-0.2 [facility] Comment on above: Performed By: #### C BCA, CMP, 71871-4, PINR, 55968-8, 93306-8, 50626-8, 49450-3, THYR #### [facility] ([id number]) [address] [place] [address], [place] [address] ABSOLUTE NEUTROPHIL 3.9 X10E9/L Normal 1.5-6.6 [facility] Comment on above: Performed By: #### C BCA, CMP, 21617-3, PINR, 86722-0, 84635-4, 42734-9, 19012-6, THYR #### [facility] ([id number]) [address] [place] [address] 42051 Basophils/100 WBC (Bld) 0.8 % Normal [facility] Comment on above: Performed By: #### C BCA, CMP, 19471-9, PINR, 31214-3, 92714-2, 21797-4, 68902-8, THYR #### [facility] ([id number]) [address] [place] [address] 08726 Eosinophils (Bld) [#/Vol] 0.1 10*3/uL Normal 0.0-0.4 [facility] Comment on above: Performed By: #### C BCA, CMP, 20910-1, PINR, 82319-9, 69177-4, 00774-9, 17243-7, THYR #### [facility] ([id number]) [address] [place] [address] 97314 Eosinophils/100 WBC (Bld) 1.4 % Normal [facility] Comment on above: Performed By: #### C BCA, CMP, 77712-7, PINR, 20056-1, 92584-7, 29135-9, 05906-6, THYR #### [facility] ([id number]) [address] [place] [address]2752 Erythrocyte distribution width (RBC) [Ratio] 13.2 % Normal 11.5-15.0 [facility] Comment on above: Performed By: #### C BCA, CMP, 50202-3, PINR, 44375-2, 26883-7, 85717-8, 73101-1, THYR #### [facility] ([id number]) [address] [place] [address] 94891 Hematocrit (Bld) [Volume fraction] 40.7 % Normal 39-49 [facility] Comment on above: Performed By: #### C BCA, CMP, 52739-3, PINR, 79107-1, 03034-2, 73456-9, 99957-5, THYR #### [facility] ([id number]) [address] [place] [address] 19170 Hemoglobin (Bld) [Mass/Vol] 14.2 g/dL Normal 13.0-17.0 [facility] Comment on above: Performed By: #### C BCA, CMP, 03678-4, PINR, 31545-1, 78619-5, 13312-0, 30788-9, THYR #### [facility] ([id number]) [address] [place] [address] 80701 Lymphocytes (Bld) [#/Vol] 2.2 10*3/uL Normal 1.0-3.5 [facility] Comment on above: Performed By: #### C BCA, CMP, 20655-9, PINR, 93565-6, 56553-5, 54769-1, 87218-0, THYR #### [facility] ([id number]) [address] [place] [address] 16140 Lymphocytes/100 WBC (Bld) 31.4 % Normal [facility] Comment on above: Performed By: #### C BCA, CMP, 10666-5, PINR, 53604-3, 98178-6, 37953-8, 10972-8, THYR #### [facility] ([id number]) [address] [place] [address] 74673 MCH (RBC) [Entitic mass] 30.7 pg Normal 27-34 [facility] Comment on above: Performed By: #### C BCA, CMP, 94197-7, PINR, 50064-0, 73549-4, 95660-4, 92780-2, THYR #### [facility] ([id number]) [address] [place] [address] 08821 MCHC (RBC) [Mass/Vol] 34.9 g/dL Normal 32-36 [facility] Comment on above: Performed By: #### C BCA, CMP, 17155-5, PINR, 80087-4, 71739-4, 99172-8, 06272-6, THYR #### [facility] ([id number]) [address] [place] [address] 60114 MCV (RBC) [Entitic vol] 88 fL Normal 80-100 [facility] Comment on above: Performed By: #### C BCA, CMP, 67120-6, PINR, 97099-4, 50008-4, 82739-1, 14701-0, THYR #### [facility] ([id number]) [address] [place] [address] 14202 Monocytes (Bld) [#/Vol] 0.7 10*3/uL Normal 0-0.9 [facility] Comment on above: Performed By: #### C BCA, CMP, 27106-3, PINR, 03816-0, 13279-3, 67047-6, 08479-2, THYR #### [facility] ([id number]) [address] [place] [address] 82887 Monocytes/100 WBC (Bld) 10.7 % Normal [facility] Comment on above: Performed By: #### C BCA, CMP, 31927-3, PINR, 33631-0, 99297-8, 40139-2, 37607-4, THYR #### [facility] ([id number]) [address] [place] [address] 64135 Neutrophils/100 WBC (Bld) 55.7 % Normal [facility] Comment on above: Performed By: #### C BCA, CMP, 23973-6, PINR, 29830-5, 74390-6, 09828-2, 29214-2, THYR #### [facility] ([id number]) [address] [place] [address] 23564 Platelet mean volume (Bld) [Entitic vol] 8.5 fL Normal 7-12 [facility] Comment on above: Performed By: #### C BCA, CMP, 17663-0, PINR, 85224-4, 87448-9, 92703-2, 48844-6, THYR #### [facility] ([id number]) [address] [place] [address] 93838 Platelets (Bld) [#/Vol] 192 10*3/uL Normal 150-450 [facility] Comment on above: Performed By: #### C BCA, CMP, 02936-0, PINR, 83232-9, 40652-4, 50188-2, 49377-4, THYR #### [facility] ([id number]) [address] [place] [address] 92888 RBC COUNT 4.61 X10E12/L Normal 4.10-5.70 [facility] Comment on above: Performed By: #### C BCA, CMP, 06288-0, PINR, 02427-5, 34856-3, 47379-7, 64593-9, THYR #### [facility] ([id number]) [address] [place] [address] 36976 WBC (Bld) [#/Vol] 7.0 10*3/uL Normal 4.0-11.0 [facility] Comment on above: Performed By: #### C BCA, CMP, 94478-8, PINR, 32975-7, 67861-6, 46723-3, 44720-0, THYR #### [facility] ([id number]) [address] [place] [address] 60025 COMPREHENSIVE METABOLIC PANE Nik 06-02-2023 Albumin [Mass/Vol] 4.2 g/dL Normal 3.2-5.3 [facility] Comment on above: Performed By: #### C BCA, CMP, 78045-6, PINR, 66420-5, 93752-5, 53853-6, 59026-0, THYR #### [facility] ([id number]) [address] [place] [address] 90986 ALP [Catalytic activity/Vol] 84 U/L Normal 39-130 [facility] Comment on above: Performed By: #### C BCA, CMP, 24660-3, PINR, 79968-2, 45001-4, 81905-5, 09393-5, THYR #### [facility] ([id number]) [address] [place] [address] 77366 ALT [Catalytic activity/Vol] 27 U/L Normal 0-40 [facility] Comment on above: Performed By: #### C BCA, CMP, 90658-6, PINR, 93775-1, 12210-8, 81012-7, 93897-1, THYR #### [facility] ([id number]) [address] [place] [address] 39389 Anion gap [Moles/Vol] 8 mmol/L Normal 5-15 [facility] Comment on above: Performed By: #### C BCA, CMP, 17797-7, PINR, 75949-2, 91708-4, 39217-8, 99242-3, THYR #### [facility] ([id number]) [address] [place] [address] 62174 AST [Catalytic activity/Vol] 22 U/L Normal 0-41 [facility] Comment on above: Performed By: #### C BCA, CMP, 14657-8, PINR, 35518-0, 51638-0, 62398-4, 32038-6, THYR #### [facility] ([id number]) [address] [place] [address] 63695 Bilirubin [Mass/Vol] 0.8 mg/dL Normal 0.3-1.2 [facility] Comment on above: Performed By: #### C BCA, CMP, 55217-6, PINR, 06651-6, 48963-6, 03174-1, 81909-4, THYR #### [facility] ([id number]) [address] [place] [address] 57110 Calcium [Mass/Vol] 10.0 mg/dL Normal 8.5-10.5 [facility] Comment on above: Performed By: #### C BCA, CMP, 75640-3, PINR, 40872-9, 52463-9, 60620-2, 52757-8, THYR #### [facility] ([id number]) [address] [place] [address] 35608 Chloride [Moles/Vol] 102 mmol/L Normal 98-109 [facility] Comment on above: Performed By: #### C BCA, CMP, 07645-6, PINR, 18217-0, 15242-0, 11982-9, 93813-0, THYR #### [facility] ([id number]) [address] [place] [address] 46969 CO2 [Moles/Vol] 26 mmol/L Normal 22-32 [facility] Comment on above: Performed By: #### C BCA, CMP, 63143-0, PINR, 69824-4, 00812-8, 06513-2, 06881-9, THYR #### [facility] ([id number]) [address] [place] [address] 98574 Creatinine [Mass/Vol] 1.07 mg/dL Normal 0.70-1.20 [facility] Comment on above: Result Comment: METH OD TRACEABLE TO IDMS STANDARD Performed By: #### C BCA, CMP, 85347-2, PINR, 12533-0, 55798-4, 54137-9, 04203-4, THYR #### [facility] ([id number]) [address] [place] [address] 25568 GFR/1.73 sq M.predicted among non-blacks MDRD (S/P/Bld) [Vol rate/Area] 88 mL/min/{1.73_m2} Normal >59 [facility] Comment on above: Result Comment: Reported eGFR is based on the CKD-EPI 2020 equation that does not use a race coefficient. Performed By: #### C BCA, CMP, 35263-8, PINR, 86374-4, 00582-4, 73921-0, 03924-5, THYR #### [facility] ([id number]) [address] [place] [address] 37547 Glucose [Mass/Vol] 94 mg/dL Normal 65-99 [facility] Comment on above: Performed By: #### C BCA, CMP, 82173-5, PINR, 84712-1, 60012-8, 21303-3, 50675-8, THYR #### [facility] ([id number]) [address] [place] [address] 66150 Potassium [Moles/Vol] 4.0 mmol/L Normal 3.5-5.0 [facility] Comment on above: Performed By: #### C BCA, CMP, 80512-6, PINR, 02110-1, 19937-6, 45709-0, 95312-9, THYR #### [facility] ([id number]) [address] [place] [address] 55890 Protein [Mass/Vol] 7.0 g/dL Normal 6.0-8.0 [facility] Comment on above: Performed By: #### C BCA, CMP, 95749-6, PINR, 36071-3, 71192-5, 94112-1, 50191-9, THYR #### [facility] ([id number]) [address] [place] [address] 82582 Sodium [Moles/Vol] 136 mmol/L Normal 134-146 [facility] Comment on above: Performed By: #### C BCA, CMP, 06739-2, PINR, 86324-4, 82241-0, 84758-9, 26102-5, THYR #### [facility] ([id number]) [address] [place] [address] 74505 Urea nitrogen [Mass/Vol] 20 mg/dL Normal 5-23 [facility] Comment on above: Performed By: #### C BCA, CMP, 62113-3, PINR, 93766-4, 68215-2, 04551-9, 51668-6, THYR #### [facility] ([id number]) [address] [place] [address] 93029 MAGNESIUMon 06-02-2023 Magnesium [Mass/Vol] 2.1 mg/dL Normal 1.8-2.6 [facility] Comment on above: Performed By: #### C BCA, CMP, 27815-6, PINR, 58639-5, 79419-1, 66750-6, 85239-5, THYR #### [facility] ([id number]) [address] [place] [address] 62733 TROPONIN Ion 06-02-2023 Troponin I.cardiac [Mass/Vol] ng/mL Normal 0.00-0.04 [facility] Comment on above: Performed By: #### C BCA, CMP, 75412-7, PINR, 63224-3, 89452-9, 51745-1, 87625-7, THYR #### [facility] ([id number]) [address] [place] [address] 74591 CBC AND AUTO DIFFon 06-01-19 24 ABSOLUTE BASOPHIL 0.1 X10E9/L Normal 0.0-0.2 [facility] Comment on above: Performed By: #### C BCA, CMP, 90526-1, PINR, 00630-4, 31597-7, 50777-1, 55039-5, THYR #### [facility] ([id number]) [address] [place] [address] 40341 ABSOLUTE NEUTROPHIL 5.1 X10E9/L Normal 1.5-6.6 [facility] Comment on above: Performed By: #### C BCA, CMP, 20830-2, PINR, 64399-5, 35889-1, 67688-2, 57958-1, THYR #### [facility] ([id number]) [address] [place] [address] 70053 Basophils/100 WBC (Bld) 0.8 % Normal [facility] Comment on above: Performed By: #### C BCA, CMP, 00422-1, PINR, 96220-5, 95935-1, 93796-9, 55275-3, THYR #### [facility] ([id number]) [address] [place] [address] 57927 Eosinophils (Bld) [#/Vol] 0.1 10*3/uL Normal 0.0-0.4 [facility] Comment on above: Performed By: #### C BCA, CMP, 66032-7, PINR, 63013-6, 19986-7, 52592-9, 97597-8, THYR #### [facility] ([id number]) [address] [place] [address] 36162 Eosinophils/100 WBC (Bld) 1.1 % Normal [facility] Comment on above: Performed By: #### C BCA, CMP, 17070-3, PINR, 97159-9, 21124-3, 82305-7, 39287-2, THYR #### [facility] ([id number]) [address] [place] [address] 97266 Erythrocyte distribution width (RBC) [Ratio] 13.0 % Normal 11.5-15.0 [facility] Comment on above: Performed By: #### C BCA, CMP, 50009-7, PINR, 03830-5, 81093-6, 69901-6, 34300-7, THYR #### [facility] ([id number]) [address] [place] [address] 87199 Hematocrit (Bld) [Volume fraction] 41.5 % Normal 39-49 [facility] Comment on above: Performed By: #### C BCA, CMP, 30380-3, PINR, 74228-9, 16183-2, 97876-7, 16332-7, THYR #### [facility] ([id number]) [address] [place] [address] 03555 Hemoglobin (Bld) [Mass/Vol] 14.6 g/dL Normal 13.0-17.0 [facility] Comment on above: Performed By: #### C BCA, CMP, 58503-8, PINR, 96314-2, 08520-9, 53421-3, 12923-6, THYR #### [facility] ([id number]) [address] [place] [address] 10151 Lymphocytes (Bld) [#/Vol] 1.7 10*3/uL Normal 1.0-3.5 [facility] Comment on above: Performed By: #### C BCA, CMP, 53357-5, PINR, 65859-5, 25641-9, 86472-6, 60525-4, THYR #### [facility] ([id number]) [address] [place] [address] 76469 Lymphocytes/100 WBC (Bld) 22.2 % Normal [facility] Comment on above: Performed By: #### C BCA, CMP, 72435-9, PINR, 67285-9, 35399-2, 53455-6, 58228-0, THYR #### [facility] ([id number]) [address] [place] [address] 74935 MCH (RBC) [Entitic mass] 30.4 pg Normal 27-34 [facility] Comment on above: Performed By: #### C BCA, CMP, 85959-9, PINR, 30113-8, 21668-6, 61823-3, 22548-1, THYR #### [facility] ([id number]) [address] [place] [address] 62050 MCHC (RBC) [Mass/Vol] 35.1 g/dL Normal 32-36 [facility] Comment on above: Performed By: #### C BCA, CMP, 51949-3, PINR, 59865-9, 77466-8, 99927-5, 05662-1, THYR #### [facility] ([id number]) [address] [place] [address] 25985 MCV (RBC) [Entitic vol] 87 fL Normal 80-100 [facility] Comment on above: Performed By: #### C BCA, CMP, 74942-8, PINR, 16144-3, 57492-9, 68356-1, 80518-4, THYR #### [facility] ([id number]) [address] [place] [address] 91350 Monocytes (Bld) [#/Vol] 0.6 10*3/uL Normal 0-0.9 [facility] Comment on above: Performed By: #### C BCA, CMP, 78132-5, PINR, 00494-4, 65862-2, 98072-2, 91206-7, THYR #### [facility] ([id number]) [address] [place] [address] 42629 Monocytes/100 WBC (Bld) 7.8 % Normal [facility] Comment on above: Performed By: #### C BCA, CMP, 21774-6, PINR, 30363-3, 64383-2, 07237-1, 98485-7, THYR #### [facility] ([id number]) [address] [place] [address] 92439 Neutrophils/100 WBC (Bld) 68.1 % Normal [facility] Comment on above: Performed By: #### C BCA, CMP, 12697-8, PINR, 69588-6, 13820-7, 67788-6, 81978-0, THYR #### [facility] ([id number]) [address] [place] [address] 31918 Platelet mean volume (Bld) [Entitic vol] 8.3 fL Normal 7-12 [facility] Comment on above: Performed By: #### C BCA, CMP, 92659-5, PINR, 66090-8, 27098-1, 89975-5, 81539-6, THYR #### [facility] ([id number]) [address] [place] [address] 42036 Platelets (Bld) [#/Vol] 207 10*3/uL Normal 150-450 [facility] Comment on above: Performed By: #### C BCA, CMP, 40071-1, PINR, 70829-7, 19646-1, 58437-8, 71536-3, THYR #### [facility] ([id number]) [address] [place] [address] 07324 RBC COUNT 4.79 X10E12/L Normal 4.10-5.70 [facility] Comment on above: Performed By: #### C BCA, CMP, 82383-2, PINR, 41718-3, 02785-1, 93836-4, 46539-0, THYR #### [facility] ([id number]) [address] [place] [address] 41365 WBC (Bld) [#/Vol] 7.5 10*3/uL Normal 4.0-11.0 [facility] Comment on above: Performed By: #### C BCA, CMP, 14229-4, PINR, 18370-1, 22807-0, 05304-8, 59690-6, THYR #### [facility] ([id number]) [address] [place] [address] 37589 COMPREHENSIVE METABOLIC PANE Nik 06-01-2023 Albumin [Mass/Vol] 5.0 g/dL Normal 3.2-5.3 [facility] Comment on above: Performed By: #### C BCA, CMP, 72698-8, PINR, 90927-4, 53507-7, 07629-8, 64959-6, THYR #### [facility] ([id number]) [address] [place] [address] 52955 ALP [Catalytic activity/Vol] 90 U/L Normal 39-130 [facility] Comment on above: Performed By: #### C BCA, CMP, 75485-7, PINR, 76779-8, 51632-3, 38074-0, 93313-2, THYR #### [facility] ([id number]) [address] [place] [address] 18610 ALT [Catalytic activity/Vol] 32 U/L Normal 0-40 [facility] Comment on above: Performed By: #### C BCA, CMP, 80233-7, PINR, 71027-2, 65414-0, 64431-7, 96763-6, THYR #### [facility] ([id number]) [address] [place] [address] [place] [address] Anion gap [Moles/Vol] 7 mmol/L Normal 5-15 [facility] Comment on above: Performed By: #### C BCA, CMP, 20034-1, PINR, 61884-4, 09668-4, 99220-4, 89377-8, THYR #### [facility] ([id number]) [address] [place] [address] 17215 AST [Catalytic activity/Vol] 27 U/L Normal 0-41 [facility] Comment on above: Performed By: #### C BCA, CMP, 54665-6, PINR, 90443-4, 33337-8, 03397-1, 54315-1, THYR #### [facility] ([id number]) [address] [place] [address] 95838 Bilirubin [Mass/Vol] 0.8 mg/dL Normal 0.3-1.2 [facility] Comment on above: Performed By: #### C BCA, CMP, 96331-8, PINR, 78444-1, 91459-8, 40334-9, 22182-4, THYR #### [facility] ([id number]) [address] [place] [address] 92766 Calcium [Mass/Vol] 10.1 mg/dL Normal 8.5-10.5 [facility] Comment on above: Performed By: #### C BCA, CMP, 11425-3, PINR, 44017-2, 94750-0, 02021-5, 67641-7, THYR #### [facility] ([id number]) [address] [place] [address] 38966 Chloride [Moles/Vol] 103 mmol/L Normal 98-109 [facility] Comment on above: Performed By: #### C BCA, CMP, 68578-8, PINR, 65134-6, 88662-1, 75751-6, 83458-4, THYR #### [facility] ([id number]) [address] [place] [address] 40187 CO2 [Moles/Vol] 24 mmol/L Normal 22-32 [facility] Comment on above: Performed By: #### C BCA, CMP, 83077-2, PINR, 12768-3, 46889-8, 92142-3, 92338-8, THYR #### [facility] ([id number]) [address] [place] [address] 38496 Creatinine [Mass/Vol] 1.18 mg/dL Normal 0.70-1.20 [facility] Comment on above: Result Comment: METH OD TRACEABLE TO IDMS STANDARD Performed By: #### C BCA, CMP, 14810-1, PINR, 13359-2, 56080-1, 55075-9, 76668-0, THYR #### [facility] ([id number]) [address] [place] [address] 86891 GFR/1.73 sq M.predicted among non-blacks MDRD (S/P/Bld) [Vol rate/Area] 78 mL/min/{1.73_m2} Normal >59 [facility] Comment on above: Result Comment: Reported eGFR is based on the CKD-EPI 2020 equation that does not use a race coefficient. Performed By: #### C BCA, CMP, 67002-9, PINR, 95449-5, 20191-8, 38563-2, 30529-8, THYR #### [facility] ([id number]) [address] [place] [address] 05260 Glucose [Mass/Vol] 86 mg/dL Normal 65-99 [facility] Comment on above: Performed By: #### C BCA, CMP, 13502-9, PINR, 78883-6, 94718-7, 24703-2, 57377-5, THYR #### [facility] ([id number]) [address] [place] [address] 91782 Potassium [Moles/Vol] 3.8 mmol/L Normal 3.5-5.0 [facility] Comment on above: Performed By: #### C BCA, CMP, 75925-0, PINR, 61087-3, 79938-0, 17056-8, 96217-0, THYR #### [facility] ([id number]) [address] [place] [address] 96766 Protein [Mass/Vol] 7.8 g/dL Normal 6.0-8.0 [facility] Comment on above: Performed By: #### C BCA, CMP, 67202-1, PINR, 70838-4, 29810-1, 05020-1, 66716-7, THYR #### [facility] ([id number]) [address] [place] [address] 70307 Sodium [Moles/Vol] 134 mmol/L Normal 134-146 [facility] Comment on above: Performed By: #### C BCA, CMP, 73591-4, PINR, 10392-1, 60823-1, 01079-7, 55956-7, THYR #### [facility] ([id number]) [address] [place] [address] 33598 Urea nitrogen [Mass/Vol] 16 mg/dL Normal 5-23 [facility] Comment on above: Performed By: #### C BCA, CMP, 32747-5, PINR, 67173-3, 10847-6, 84368-4, 48960-0, THYR #### [facility] ([id number]) [address] [place] [address] 59352 DRUG SCREEN, URINEon 024 AMPHETAMINE/METHAM P Negative Normal NEG [facility] Comment on above: Result Comment: AMPH /METH screening cut off = 1000 ng/mL Performed By: #### C BCA, CMP, 44942-0, PINR, 51364-3, 92121-7, 69240-2, 67781-7, THYR #### [facility] ([id number]) [address] [place] [address] [place] [address] BARBITURATES Negative Normal NEG [facility] Comment on above: Result Comment: Yen iturates screening cut off value = 200 ng/mL Performed By: #### C BCA, CMP, 87194-0, PINR, 67640-1, 72060-1, 81548-9, 77296-2, THYR #### [facility] ([id number]) [address] [place] [address] 03426 BENZODIAZEPINES Negative Normal NEG [facility] Comment on above: Result Comment: Carlos odiazepines screening cut off value = 200 ng/mL Performed By: #### C BCA, CMP, 00616-2, PINR, 83599-3, 39617-8, 71273-3, 25181-3, THYR #### [facility] ([id number]) [address] [place] [address] 30871 CANNABINOIDS Negative Normal NEG [facility] Comment on above: Result Comment: Shirlene abinoids/THC screening cut off value = 50 ng/mL Performed By: #### C BCA, CMP, 07509-4, PINR, 27595-4, 55104-3, 88248-8, 70076-9, THYR #### [facility] ([id number]) [address] [place] [address] 25826 COCAINE METABOLITE Negative Normal NEG [facility] Comment on above: Result Comment: Coca ine screening cut off value = 300 ng/mL Performed By: #### C BCA, CMP, 57809-3, PINR, 57775-2, 48260-7, 42762-1, 42376-6, THYR #### [facility] ([id number]) [address] [place] [address] 06641 ECSTASY Negative Normal NEG [facility] Comment on above: Result Comment: Ecst asy screening cut off value = 500 ng/mL This report is intended for use in clinical monitoring or management of patients. Performed By: #### C BCA, CMP, 24691-1, PINR, 22093-8, 18196-7, 92926-0, 28432-8, THYR #### [facility] ([id number]) [address] [place] [address] 12445 METHADONE Negative Normal NEG [facility] Comment on above: Result Comment: Meth adone screening cut off value = 300 ng/mL. Performed By: #### C BCA, CMP, 67634-6, PINR, 77460-1, 99118-0, 46367-9, 01241-4, THYR #### [facility] ([id number]) [address] [place] [address] 71453 OPIATES Negative Normal NEG [facility] Comment on above: Result Comment: Opia yolande screening cut off value = 300 ng/mL NOTE: This test is used for the detection of codeine, hydrocodone (>1000 ng/mL), morphine and hydromorphone (>900 ng/mL) in urine. Performed By: #### C BCA, CMP, 74243-8, PINR, 11500-3, 70665-2, 68042-5, 81022-1, THYR #### [facility] ([id number]) [address] [place] [address] 74528 OXYCODONE Negative Normal NEG [facility] Comment on above: Result Comment: Oxyc odone screening cut off value = 300 ng/mL NOTE: This test is used for the detection of oxycodone and oxymorphone in urine. Performed By: #### C BCA, CMP, 43329-1, PINR, 19474-5, 32521-5, 83988-0, 38807-3, THYR #### [facility] ([id number]) [address] [place] [address] 25461 PHENCYCLIDINE Negative Normal NEG [facility] Comment on above: Result Comment: Phen cyclidine screening cut off value = 25 ng/mL Performed By: #### C BCA, CMP, 29865-4, PINR, 46177-9, 73781-5, 32806-1, 55112-8, THYR #### [facility] ([id number]) [address] [place] [address] 96193 Fibrin D-dimer DDU (PPP) [Ma ss/Vol]on 06-01-2023 D DIMER <150 Normal <255 [facility] Comment on above: Result Comment: Results <255 ng/mL DDU: The presence of a VTE can safely be excluded with a negative D-Dimer result and Wells score. A negative result doesn't exclude the possibility of DIC. The test be repeated along with other diagnostic tests if the patient's symptoms persist or worsen. [email or web address] [email or web address] Performed By: #### C BCA, CMP, 77309-5, PINR, 68302-1, 72677-5, 88573-3, 12824-5, THYR #### [facility] ([id number]) [address] [place] [address] 63650 Lead (BldV) [Mass/Vol]on LEAD, VENOUS 33.8 mcg/dL High <3.5 [facility] Comment on above: Result Comment: NOTE ADDITIONAL INFORMATION Testing performed by Inductively Coupled Plasma-Mass Spectrometry (ICP-MS). This test was developed and its performance characteristics determined by [facility] in a manner consistent with CLIA requirements. This test has not been cleared or approved by the U.S. Food and Drug Administration. Performed By: #### C MERCEDES, CMP, 11129-7, PINR, 96287-3, 50539-0, 17431-2, 49654-8, THYR #### [facility] ([id number]) [address] [place] [address] 07240 MAGNESIUMon 06-01-2023 Magnesium [Mass/Vol] 2.1 mg/dL Normal 1.8-2.6 [facility] Comment on above: Performed By: #### C MERCEDES, CMP, 28726-7, PINR, 13760-8, 90057-7, 15655-9, 53811-2, THYR #### [facility] ([id number]) [address] [place] [address] 89712 Natriuretic peptide B [Mass/ Vol]on 06-01-2023 BRN NATRIURETIC PEP <5 Normal <100.0 [facility] Comment on above: Performed By: #### C BCA, CMP, 40988-7, PINR, 62362-0, 60188-0, 84579-1, 76238-3, THYR #### [facility] ([id number]) [address] [place] [address], [place] [address] PROTIME AND INRon 06-01-2023 INR Coag (PPP) [Relative time] 1.1 {INR} Normal 0.8-1.1 [facility] Comment on above: Performed By: #### C BCA, CMP, 40998-7, PINR, 48508-5, 91657-7, 15801-2, 15425-8, THYR #### [facility] ([id number]) [address] [place] [address], [place] [address] PT Coag (PPP) [Time] 12.6 s Normal 9.8-13.2 [facility] Comment on above: Result Comment: NEW REFERENCE RANGE Performed By: #### C BCA, CMP, 89333-0, PINR, 83640-8, 45173-7, 49179-3, 47303-8, THYR #### [facility] ([id number]) [address] [place] [address], [place] [address] THYROID PROFILEon 06-01-2023 Free T4 [Mass/Vol] 0.88 ng/dL Normal 0.61-1.60 [facility] Comment on above: Performed By: #### C BCA, CMP, 73297-2, PINR, 36623-7, 18584-9, 49785-5, 59015-5, THYR #### [facility] ([id number]) [address] [place] [address], [place] [address] TSH 1.27 uIU/mL Normal 0.49-4.67 [facility] Comment on above: Performed By: #### C BCA, CMP, 48864-7, PINR, 27215-9, 27369-5, 24677-6, 61259-0, THYR #### [facility] ([id number]) [address] [place] [address] 02651 TROPONIN Ion 06-01-2023 Troponin I.cardiac [Mass/Vol] ng/mL Normal 0.00-0.04 [facility] Comment on above: Performed By: #### C BCA, CMP, 96481-5, PINR, 88339-7, 96968-4, 42611-5, 21130-9, THYR #### [facility] ([id number]) [address] [place] [address] 16861 URN MACROSCOPIC NURon 2023 BILIRUBIN FITO Negative Normal NEG [facility] Comment on above: Performed By: #### C BCA, CMP, 41832-5, PINR, 49416-4, 34539-8, 22885-0, 37712-2, THYR #### [facility] ([id number]) [address] [place] [address] [place] [address] BLOOD/HGB FITO Negative Normal NEG [facility] Comment on above: Performed By: #### C BCA, CMP, 65268-8, PINR, 62168-0, 96031-5, 02413-8, 80582-4, THYR #### [facility] ([id number]) [address] [place] [address] 72379 GLUCOSE FITO Negative Normal NEG [facility] Comment on above: Performed By: #### C BCA, CMP, 63473-2, PINR, 29490-0, 02887-5, 68950-0, 00472-2, THYR #### [facility] ([id number]) [address] [place] [address] [place] [address] KETONES FITO 40 mg/dL Abnormal NEG [facility] Comment on above: Performed By: #### C BCA, CMP, 83994-7, PINR, 55704-1, 87928-0, 28800-0, 75646-9, THYR #### [facility] ([id number]) [address] [place] [address] 69049 LEUKOCYTE ESTERASE FITO Negative Normal NEG [facility] Comment on above: Performed By: #### C BCA, CMP, 00036-9, PINR, 03865-9, 82142-2, 00313-7, 95756-3, THYR #### [facility] ([id number]) [address] [place] [address] 24097 NITRITE FITO Negative Normal NEG [facility] Comment on above: Performed By: #### C BCA, CMP, 71280-1, PINR, 64812-4, 71911-1, 37262-6, 74156-2, THYR #### [facility] ([id number]) [address] [place] [address] 89330 PH FITO 5.5 Normal 5.0-8.5 [facility] Comment on above: Performed By: #### C BCA, CMP, 04180-0, PINR, 49136-2, 23939-1, 31320-6, 66395-5, THYR #### [facility] ([id number]) [address] [place] [address] [place] [address] PROTEIN FITO Negative Normal NEG [facility] Comment on above: Performed By: #### C BCA, CMP, 56818-8, PINR, 29261-3, 86217-8, 03587-1, 55634-4, THYR #### [facility] ([id number]) [address] [place] [address] 28465 SPECIFIC GRAVITY FITO 1.025 Normal 1.003-1.035 [facility] Comment on above: Performed By: #### C BCA, CMP, 88557-0, PINR, 02945-9, 87835-4, 67104-5, 58213-6, THYR #### [facility] ([id number]) [address] [place] [address] UROBILINOGEN FITO 0.2 eu/dL Normal <1.1 [facility] Comment on above: Performed By: #### C BCA, CMP, 10474-9, PINR, 01974-5, 16759-9, 88941-5, 17641-7, THYR #### [facility] ([id number]) [address] [place] [address]244 XR CHEST 1 VWon 06-01-2023 XR CHEST [...] Pardo DO on 06/01/2023 3:32 PM Normal [facility] aPTT Coag (PPP) [Time]on aPTT Coag (Bld) [Time] 35 s Normal 26-37 [facility] Comment on above: Result Comment: NEW REFERENCE RANGE Performed By: #### C BCA, CMP, 39914-9, PINR, 98956-1, 71585-6, 68952-0, 62049-7, THYR #### [facility] ([id number]) [address] [place] [address] 57169 LEAD,ADULTon 09-05-2022 Lead, Blood (Adult) 45.4 ug/dL Invalid Interpretation Code 0.0-3.4 [facility] Comment on above: Result Comment: Test ing performed by Inductively coupled plasma/Mass Spectrometry. Verified by repeat analysis Analysis by inductively coupled plasma/mass spectrometry (ICP/MS) Environmental Exposure: WHO Recommendation <20.0 Occupational Exposure: OSHA Lead Std 40.0 CHAZ 30.0 . Detection Limit = 1.0 Performed By: #### L EADA #### [facility] [address] [place] [address] Dr. Rachel COLLINS,ADULTon 09-01-2022 Lead, Blood (Adult) CLOTWB Normal [facility] Comment on [...] 1.0 Performed By: #### I NSULIN #### [facility] [address] [place] [address] Dr. Rachel COLLINS,ADULTon 08-30-2022 Lead, Blood (Adult) CLOTWB Normal [facility] Comment on above: Result Comment: Test not performed. Whole blood specimen partially or completely clotted. A common cause is insufficient mixing upon collection. Testing performed by Inductively coupled plasma/Mass Spectrometry. contacted Taya at your facility on 08-30-2022 Environmental Exposure: WHO Recommendation <20.0 Occupational Exposure: OSHA Lead Std 40.0 CHAZ 30.0 . Detection Limit = 1.0 Performed By: #### L EADA #### [facility] [address] [place] [address] Dr. Rachel Cortez BNPon 08-29-2022 Natriuretic peptide B (Bld) [Mass/Vol] 10.0 pg/mL Normal <=450.0 [facility] Comment on above: Performed By: #### C MP, TSH, BNP #### [facility] [address] [place] [address] Dr. Rachel Cortez CBC AUTO DIFFon 08-29-2022 BASO # 0.0 103/ul Normal 0.0-0.1 [facility] Comment on above: Performed By: #### C BC #### [facility] [address] [place] [address] Dr. Rachel Cortez Basophils/100 WBC (Bld) 0.5 % Normal 0.2-2.0 [facility] Comment on above: Performed By: #### C BC #### [facility] [address] [place] [address] Dr. Rachel Cortez EO # 0.2 103/ul Normal 0.0-0.7 [facility] Comment on above: Performed By: #### C BC #### [facility] [address] [place] [address] Dr. Rachel Cortez Eosinophils/100 WBC (Bld) 2.7 % Normal 0.9-7.0 [facility] Comment on above: Performed By: #### C BC #### [facility] [address] [place] [address] Dr. Rachel Cortez Erythrocyte distribution width (RBC) [Ratio] 12.3 % Normal 11.0-15.0 [facility] Comment on above: Performed By: #### C BC #### [facility] [address] [place] [address] Dr. Rachel Cortez Hematocrit (Bld) [Volume fraction] 40.9 % Critically low 42.0-54.0 [facility] Comment on above: Performed By: #### C BC #### [facility] [address] [place] [address] Dr. Rachel Cortez Hemoglobin (Bld) [Mass/Vol] 13.9 g/dL Critically low 14.0-18.0 [facility] Comment on above: Performed By: #### C BC #### [facility] [address] [place] [address] Dr. Rachel Cortez IG # 0.02 10e3/ul Normal 0.00-0.03 [facility] Comment on above: Performed By: #### C BC #### [facility] [address] [place] [address] Dr. Rachel Cortez IG % 0.3 % Normal 0.0-0.5 [facility] Comment on above: Performed By: #### C BC #### [facility] [address] [place] [address] Dr. Rachel Cortez LYMPH # 1.6 103/ul Normal 1.2-3.8 [facility] Comment on above: Performed By: #### C BC #### [facility] [address] [address] [address] Rachel Cortez Lymphocytes/100 WBC (Bld) 21.2 % Normal 20.5-60.0 [facility] Comment on above: Performed By: #### C BC #### [facility] [address] [address] [address] Rachel Cortez MANUAL DIFF REQ NO Normal [facility] Comment on above: Performed By: #### C BC #### [facility] [address] [place] [address] Dr. Rachel Cortez MCH (RBC) [Entitic mass] 30.3 pg Normal 25.9-34.0 [facility] Comment on above: Performed By: #### C BC #### [facility] [address] [place] [address] Dr. Rachel Cortez MCHC (RBC) [Mass/Vol] 34.0 g/dL Normal 29.9-35.2 [facility] Comment on above: Performed By: #### C BC #### [facility] [address] [place] [address] Dr. Rachel Cortez MCV (RBC) [Entitic vol] 89.3 fL Normal 80.0-94.0 [facility] Comment on above: Performed By: #### C BC #### [facility] [address] [place] [address] Dr. Rachel Cortez MONO # 0.6 103/ul Normal 0.3-0.8 [facility] Comment on above: Performed By: #### C BC #### [facility] [address] [place] [address] Dr. Rachel Cortez Monocytes/100 WBC (Bld) 8.6 % Normal 1.7-12.0 [facility] Comment on above: Performed By: #### C BC #### [facility] [address] [place] [address] Dr. Rachel Cortez NEUT # 5.0 103/ul Normal 1.4-6.5 [facility] Comment on above: Performed By: #### C BC #### [facility] [address] [address] [address] Rachel Cortez Neutrophils/100 WBC (Bld) 66.7 % Normal 43.0-75.0 [facility] Comment on above: Performed By: #### C BC #### [facility] [address] [place] [address] Dr. Rachel Cortez Platelet mean volume (Bld) [Entitic vol] 10.2 fL Normal 9.5-13.5 [facility] Comment on above: Performed By: #### C BC #### [facility] [address] [place] [address] Dr. Rachel Cortez PLT 198 103/ul Normal 150-450 [facility] Comment on above: Performed By: #### C BC #### [facility] [address] [place] [address] Dr. Rachel Cortez RBC 4.58 106/ul Critically low 4.70-6.10 [facility] Comment on above: Performed By: #### C BC #### [facility] [address] [place] [address] Dr. Rachel Cortez WBC 7.5 103/ul Normal 4.0-11.0 [facility] Comment on above: Performed By: #### C BC #### [facility] [address] [place] [address] Dr. Rachel Cortez FREE T4on 08-29-2022 Free T4 [Mass/Vol] 0.84 ng/dL Normal 0.76-1.46 [facility] Comment on above: Performed By: #### I KANDIS FT4 #### [facility] [address] [place] [address] Dr. Rachel Cortez IRONon 08-29-2022 Iron [Mass/Vol] 86.0 ug/dL Normal 65.0-175.0 [facility] Comment on above: Performed By: #### Paula MARQUIS FT4 #### [facility] [address] [place] [address] Dr. Rachel Cortez PROF 14(COMP METB)on 023 Albumin [Mass/Vol] 4.0 g/dL Normal 3.4-5.0 [facility] Comment on above: Performed By: #### C MP, TSH, BNP #### [facility] [address] [address] [address] Rachel Cortez Albumin/Globulin [Mass ratio] 1.2 {ratio} Normal [facility] Comment on above: Performed By: #### C MP, TSH, BNP #### [facility] [address] [address] [address] Rachel Cortez ALP [Catalytic activity/Vol] 103 U/L Normal 46-116 [facility] Comment on above: Performed By: #### C MP, TSH, BNP #### [facility] [address] [address] [address] Rachel Cortez ALT [Catalytic activity/Vol] 39 U/L Normal 16-63 [facility] Comment on above: Performed By: #### C MP, TSH, BNP #### [facility] [address] [address] [address] Rachel Cortez Anion gap [Moles/Vol] 10.2 mmol/L Normal [facility] Comment on above: Performed By: #### C MP, TSH, BNP #### [facility] [address] [place] [address] Dr. Rachel Cortez AST [Catalytic activity/Vol] 20 U/L Normal 15-37 [facility] Comment on above: Performed By: #### C MP, TSH, BNP #### [facility] [address] [address] [address] Rachel Cortez Bilirubin [Mass/Vol] 0.3 mg/dL Normal 0.2-1.0 [facility] Comment on above: Performed By: #### C MP, TSH, BNP #### [facility] [address] [address] [address] Rachel Cortez Calcium [Mass/Vol] 9.8 mg/dL Normal 8.5-10.1 [facility] Comment on above: Performed By: #### C MP, TSH, BNP #### [facility] [address] [address] [address] Rachel Cortez Chloride [Moles/Vol] 105 mmol/L Normal 98-107 [facility] Comment on above: Performed By: #### C MP, TSH, BNP #### [facility] [address] [place] [address] Dr. Rachel Cortez CO2 [Moles/Vol] 29.9 mmol/L Normal 21.0-32.0 [facility] Comment on above: Performed By: #### C MP, TSH, BNP #### [facility] [address] [place] [address] Dr. Rachel Cortez Creatinine [Mass/Vol] 1.19 mg/dL Normal 0.70-1.30 [facility] Comment on above: Performed By: #### C MP, TSH, BNP #### [facility] [address] [place] [address] Dr. Rachel Cortez EGFR-AF COSTA RICAN >60 Normal >=60 [facility] Comment on above: Performed By: #### C MP, TSH, BNP #### [facility] [address] [place] [address] Dr. Rachel Cortez EGFR-NON AF COSTA RICAN >60 Normal >=60 [facility] Comment on above: Performed By: #### C MP, TSH, BNP #### [facility] [address] [place] [address] Dr. Rachel Cortez Globulin (S) [Mass/Vol] 3.4 g/dL Normal [facility] Comment on above: Performed By: #### C MP, TSH, BNP #### [facility] [address] [place] [address] Dr. Rachel Cortez Glucose [Mass/Vol] 105 mg/dL Normal 74-106 [facility] Comment on above: Performed By: #### C MP, TSH, BNP #### [facility] [address] [place] [address] Dr. Rachel Cortez Potassium [Moles/Vol] 4.1 mmol/L Normal 3.5-5.1 [facility] Comment on above: Performed By: #### C MP, TSH, BNP #### [facility] [address] [place] [address] Dr. Rachel Cortez Protein [Mass/Vol] 7.4 g/dL Normal 6.4-8.2 [facility] Comment on above: Performed By: #### C MP, TSH, BNP #### [facility] [address] [place] [address] Dr. Rachel Cortez Sodium [Moles/Vol] 141 mmol/L Normal 136-145 [facility] Comment on above: Performed By: #### C MP, TSH, BNP #### [facility] [address] [place] [address] Dr. Rachel Cortez Urea nitrogen [Mass/Vol] 16.0 mg/dL Normal 7.0-18.0 [facility] Comment on above: Performed By: #### C MP, TSH, BNP #### [facility] [address] [place] [address] Dr. Rachel Cortez Urea nitrogen/Creatinin e [Mass ratio] 13.4 mg/mg Normal [facility] Comment on above: Performed By: #### C MP, TSH, BNP #### [facility] [address] [place] [address] Dr. Rachel Cortez TSHon 08-29-2022 TSH 0.978 uIU/mL Normal 0.358-3.740 [facility] Comment on above: Performed By: #### I NSULIN #### [facility] [address] [place] [address] FACIAL BONES WO [...] WILFRID CAMARENA Date: 2022-08-11 18:30 Normal [facility] CT HEAD WO CONon 08-11-2022 CT [...] MARLYS MUNOZ Date: 2022-08-11 19:49 Normal [facility] INSULINon 05-09-2022 Insulin 9.9 uIU/mL Normal 2.6-24.9 [facility] Comment on above: Performed By: #### I NSULIN #### [facility] [address] [address] [address] Rachel Cortez CBC AUTO DIFFon 05-07-2022 BASO # 0.1 103/ul Normal 0.0-0.1 [facility] Comment on above: Performed By: #### I NSULIN #### [facility] [address] [address] [address] Rachel Cortez Basophils/100 WBC (Bld) 0.7 % Normal 0.2-2.0 [facility] Comment on above: Performed By: #### I NSULIN #### [facility] [address] [place] [address] Dr. Rachel Cortez EO # 0.0 103/ul Normal 0.0-0.7 [facility] Comment on above: Performed By: #### I NSULIN #### [facility] [address] [place] [address] Dr. Rachel Cortez Eosinophils/100 WBC (Bld) 0.1 % Critically low 0.9-7.0 [facility] Comment on above: Performed By: #### I NSULIN #### [facility] [address] [place] [address] Dr. Rachel Cortez Erythrocyte distribution width (RBC) [Ratio] 12.2 % Normal 11.0-15.0 [facility] Comment on above: Performed By: #### I NSULIN #### [facility] [address] [place] [address] Dr. Rachel Cortez Hematocrit (Bld) [Volume fraction] 41.1 % Critically low 42.0-54.0 [facility] Comment on above: Performed By: #### I NSULIN #### [facility] [address] [place] [address] Dr. Rachel Cortez Hemoglobin (Bld) [Mass/Vol] 14.1 g/dL Normal 14.0-18.0 [facility] Comment on above: Performed By: #### I NSULIN #### [facility] [address] [place] [address] Dr. Rachel Cortez IG # 0.03 10e3/ul Normal 0.00-0.03 [facility] Comment on above: Performed By: #### I NSULIN #### [facility] [address] [place] [address] Dr. Rachel Cortez IG % 0.4 % Normal 0.0-0.5 [facility] Comment on above: Performed By: #### I NSULIN #### [facility] [address] [place] [address] Dr. Rachel Cortez LYMPH # 2.3 103/ul Normal 1.2-3.8 [facility] Comment on above: Performed By: #### I NSULIN #### [facility] [address] [address] [address] Rachel Cortez Lymphocytes/100 WBC (Bld) 30.8 % Normal 20.5-60.0 [facility] Comment on above: Performed By: #### I NSULIN #### [facility] [address] [address] [address] Rachel Cortez MANUAL DIFF REQ NO Normal [facility] Comment on above: Performed By: #### I NSULIN #### [facility] [address] [place] [address] Dr. Rachel Cortez MCH (RBC) [Entitic mass] 29.9 pg Normal 25.9-34.0 [facility] Comment on above: Performed By: #### I NSULIN #### [facility] [address] [place] [address] Dr. Rachel Cortez MCHC (RBC) [Mass/Vol] 34.3 g/dL Normal 29.9-35.2 [facility] Comment on above: Performed By: #### I NSULIN #### [facility] [address] [place] [address] Dr. Rachel Cortez MCV (RBC) [Entitic vol] 87.3 fL Normal 80.0-94.0 [facility] Comment on above: Performed By: #### I NSULIN #### [facility] [address] [place] [address] Dr. Rachel Cortez MONO # 0.7 103/ul Normal 0.3-0.8 [facility] Comment on above: Performed By: #### I NSULIN #### [facility] [address] [place] [address] Dr. Rachel Cortez Monocytes/100 WBC (Bld) 8.9 % Normal 1.7-12.0 [facility] Comment on above: Performed By: #### I NSULIN #### [facility] [address] [place] [address] Dr. Rachel Cortez NEUT # 4.3 103/ul Normal 1.4-6.5 [facility] Comment on above: Performed By: #### I NSULIN #### [facility] [address] [address] [address] Rachel Cortez Neutrophils/100 WBC (Bld) 59.1 % Normal 43.0-75.0 [facility] Comment on above: Performed By: #### I NSULIN #### [facility] [address] [address] [address] Rachel Cortez Platelet mean volume (Bld) [Entitic vol] 9.9 fL Normal 9.5-13.5 [facility] Comment on above: Performed By: #### I NSULIN #### [facility] [address] [address] [address] Rachel Cortez PLT 184 103/ul Normal 150-450 [facility] Comment on above: Performed By: #### I NSULIN #### [facility] [address] [place] [address] Dr. Rachel Cortez RBC 4.71 106/ul Normal 4.70-6.10 [facility] Comment on above: Performed By: #### I NSULIN #### [facility] [address] [place] [address] Dr. Rachel Cortez WBC 7.3 103/ul Normal 4.0-11.0 [facility] Comment on above: Performed By: #### I NSULIN #### [facility] [address] [place] [address] Dr. Rachel Cortez CULTURE URINEon 05-07-2022 CULTURE URINE Culture Observations : LIGHT GROWTH OF MIXED SKIN NILES. NO POTENTIAL PATHOGENS SEEN. Normal [facility] Comment on above: Performed By: #### I NSULIN #### [facility] [address] [place] [address] Dr. Rachel Cortez FREE THYROXINE INDEX T7on FTI 2.07 Normal 1.30-4.50 [facility] Comment on above: Performed By: #### I NSULIN #### [facility] [address] [place] [address] Dr. Rachel Cortez T3U 35.0 % Normal 33.0-40.0 [facility] Comment on above: Performed By: #### I NSULIN #### [facility] [address] [address] [address] Rachel Cortez T4 [Mass/Vol] 5.90 ug/dL Normal 4.50-12.10 [facility] Comment on above: Performed By: #### I NSULIN #### [facility] [address] [address] [address] Rachel Cortez GLYCOHEMOGLOBIN A1Con 2022 ADA RECOMMENDATION SEE BELOW Normal [facility] Comment on above: Result Comment: ADA RECOMMENDED LIMIT 4.0 - 6.0 ADA THERAPEUTIC TARGET < 7.0 ACTION SUGGESTED > 7.0 Performed By: #### A 1C #### [facility] [address] [address] [address] Rachel Cortez Glucose [Mass/Vol] 100 mg/dL Normal [facility] Comment on above: Performed By: #### A 1C #### [facility] [address] [place] [address] Dr. Rachel Cortez HbA1c (Bld) [Mass fraction] 5.1 % Normal 4.5-6.2 [facility] Comment on above: Performed By: #### A 1C #### [facility] [address] [address] [address] Rachel Cortez IRONon 05-07-2022 Iron [Mass/Vol] 104.0 ug/dL Normal 65.0-175.0 [facility] Comment on above: Performed By: #### I NSULIN #### [facility] [address] [address] [address] Rachel Cortez LIPID PROFILEon 05-07-2022 CHOL-HDL RATIO NORM SEE BELOW Normal [facility] Comment on above: Result Comment: 3.3 - 4.4 LOW RISK 4.4 - 7.1 AVERAGE RISK 7.1 - 11.0 MODERATE RISK >11.0 HIGH RISK Performed By: #### C MP, LIPID #### [facility] [address] [place] [address] Dr. Rachel Cortez Cholesterol [Mass/Vol] 147 mg/dL Normal <=200 [facility] Comment on above: Performed By: #### C MP, LIPID #### [facility] [address] [address] [address] Rachel Cortez Cholesterol in HDL [Mass/Vol] 56 mg/dL Normal 40-60 [facility] Comment on above: Performed By: #### C MP, LIPID #### [facility] [address] [id number] Rachel Cortez Cholesterol in LDL [Mass/Vol] 77.8 mg/dL Normal [facility] Comment on above: Performed By: #### C MP, LIPID #### [facility] [address] [address] [address] Rachel Cortez Cholesterol.total/ Cholesterol in HDL [Mass ratio] 2.6 {ratio} Normal [facility] Comment on above: Performed By: #### C MP, LIPID #### [facility] [address] [place] [address] Dr. Rachel Cortez HDL NORMAL > or = 60 mg/dl - LO W CARDIOVASCULAR RISK <40 mg/dl - HIGH CARDIOVASCULAR RISK Normal [facility] Comment on above: Performed By: #### C MP, LIPID #### [facility] [address] [place] [address] Dr. Rachel Cortez LDL CALC NORMAL SEE BELOW Normal [facility] Comment on above: Result Comment: <100 mg/dl OPTIMAL 100 - 129 mg/dl NEAR OR ABOVE OPTIMAL 130 - 159 mg/dl BORDERLINE HIGH 160 - 189 mg/dl HIGH >190 mg/dl VERY HIGH Performed By: #### C MP, LIPID #### [facility] [address] [address] [address] Rachel Cortez Triglyceride [Mass/Vol] 66 mg/dL Normal <=150 [facility] Comment on above: Performed By: #### C MP, LIPID #### [facility] [address] [address] [address] Rachel Cortez VLDL CALC 13.2 mg/dL Normal [facility] Comment on above: Performed By: #### C MP, LIPID #### [facility] [address] [address] [address] Rachel Cortez PROF 14(COMP METB)on 023 Albumin [Mass/Vol] 4.0 g/dL Normal 3.4-5.0 [facility] Comment on above: Performed By: #### C MP, LIPID #### [facility] [address] [place] [address] Dr. Rachel Cortez Albumin/Globulin [Mass ratio] 1.3 {ratio} Normal [facility] Comment on above: Performed By: #### C MP, LIPID #### [facility] [address] [place] [address] Dr. Rachel Cortez ALP [Catalytic activity/Vol] 86 U/L Normal 46-116 [facility] Comment on above: Performed By: #### C MP, LIPID #### [facility] [address] [place] [address] Dr. Rachel Cortez ALT [Catalytic activity/Vol] 35 U/L Normal 16-63 [facility] Comment on above: Performed By: #### C MP, LIPID #### [facility] [address] [place] [address] Dr. Rachel Cortez Anion gap [Moles/Vol] 9.9 mmol/L Normal [facility] Comment on above: Performed By: #### C MP, LIPID #### [facility] [address] [place] [address] Dr. Rachel Cortez AST [Catalytic activity/Vol] 22 U/L Normal 15-37 [facility] Comment on above: Performed By: #### C MP, LIPID #### [facility] [address] [place] [address] Dr. Rachel Cortez Bilirubin [Mass/Vol] 0.4 mg/dL Normal 0.2-1.0 [facility] Comment on above: Performed By: #### C MP, LIPID #### [facility] [address] [place] [address] Dr. Rachel Cortez Calcium [Mass/Vol] 10.1 mg/dL Normal 8.5-10.1 [facility] Comment on above: Performed By: #### C MP, LIPID #### [facility] [address] [place] [address] Dr. Rachel Cortez Chloride [Moles/Vol] 107 mmol/L Normal 98-107 [facility] Comment on above: Performed By: #### C MP, LIPID #### [facility] [address] [address] [address] Rachel Cortez CO2 [Moles/Vol] 30.0 mmol/L Normal 21.0-32.0 [facility] Comment on above: Performed By: #### C MP, LIPID #### [facility] [address] [address] [address] Rachel Cortez Creatinine [Mass/Vol] 1.16 mg/dL Normal 0.70-1.30 [facility] Comment on above: Performed By: #### C MP, LIPID #### [facility] [address] [place] [address] Dr. Rachel Cortez EGFR-AF COSTA RICAN >60 Normal >=60 [facility] Comment on above: Performed By: #### C MP, LIPID #### [facility] [address] [address] [address] Rachel Cortez EGFR-NON AF COSTA RICAN >60 Normal >=60 [facility] Comment on above: Performed By: #### C MP, LIPID #### [facility] [address] [address] [address] Rachel Cortez Globulin (S) [Mass/Vol] 3.0 g/dL Normal [facility] Comment on above: Performed By: #### C MP, LIPID #### [facility] [address] [address] [address] Rachel Cortez Glucose [Mass/Vol] 88 mg/dL Normal 74-106 [facility] Comment on above: Performed By: #### C MP, LIPID #### [facility] [address] [address] [address] Rachel Cortez Potassium [Moles/Vol] 3.9 mmol/L Normal 3.5-5.1 [facility] Comment on above: Performed By: #### C MP, LIPID #### [facility] [address] [address] [address] Rachel Cortez Protein [Mass/Vol] 7.0 g/dL Normal 6.4-8.2 [facility] Comment on above: Performed By: #### C MP, LIPID #### [facility] [address] [place] [address] Dr. Rachel Cortez Sodium [Moles/Vol] 143 mmol/L Normal 136-145 [facility] Comment on above: Performed By: #### C MP, LIPID #### [facility] [address] [place] [address] Dr. Rachel Cortez Urea nitrogen [Mass/Vol] 16.0 mg/dL Normal 7.0-18.0 [facility] Comment on above: Performed By: #### C MP, LIPID #### [facility] [address] [place] [address] Dr. Rachel Cortez Urea nitrogen/Creatinin e [Mass ratio] 13.8 mg/mg Normal [facility] Comment on above: Performed By: #### C MP, LIPID #### [facility] [address] [place] [address] Dr. Rachel Cortez TSHon 05-07-2022 TSH 2.417 uIU/mL Normal 0.358-3.740 [facility] Comment on above: Performed By: #### I NSULIN #### [facility] [address] [place] [address] Dr. Rachel Cortez UA RANDOM W/MICROSCOPICon BACTERIA NONE SEEN Normal NONE SEEN [facility] Comment on above: Performed By: #### I NSULIN #### [facility] [address] [place] [address] Dr. Rachel Cortez Bilirubin Ql (U) Negative Normal NEGATIVE [facility] Comment on above: Performed By: #### I NSULIN #### [facility] [address] [place] [address] Dr. Rachel Cortez CAST NONE SEEN Normal NONE SEEN [facility] Comment on above: Performed By: #### I NSULIN #### [facility] [address] [place] [address] Dr. Rachel Cortez Clarity (U) CLEAR Normal CLEAR [facility] Comment on above: Performed By: #### I NSULIN #### [facility] [address] [address] [address] Rachel Cortez Color (U) YELLOW Normal YELLOW [facility] Comment on above: Performed By: #### I NSULIN #### [facility] [address] [place] [address] Dr. Rachel Cortez Crystals LM Nom (Urine sed) NONE SEEN Normal NONE SEEN [facility] Comment on above: Performed By: #### I NSULIN #### [facility] [address] [place] [address] Dr. Rachel Cortez Epithelial cells LM Ql (Urine sed) NONE SEEN Normal NONE SEEN /RARE [facility] Comment on above: Performed By: #### I NSULIN #### [facility] [address] [place] [address] Dr. Rachel Cortez Glucose Ql (U) Negative Normal NEGATIVE [facility] Comment on above: Performed By: #### I NSULIN #### [facility] [address] [place] [address] Dr. Rachel Cortez Hemoglobin Ql (U) Negative Normal NEGATIVE [facility] Comment on above: Performed By: #### I NSULIN #### [facility] [address] [place] [address] Dr. Rachel Cortez Ketones Ql (U) Negative Normal NEGATIVE [facility] Comment on above: Performed By: #### I NSULIN #### [facility] [address] [place] [address] Dr. Rachel Cortez LEUKOCYTES Negative Normal NEGATIVE [facility] Comment on above: Performed By: #### I NSULIN #### [facility] [address] [place] [address] Dr. Rachel Cortez MUCOUS MODERATE Abnormal NONE SEEN [facility] Comment on above: Performed By: #### I NSULIN #### [facility] [address] [place] [address] Dr. Rachel Cortez Nitrite Ql (U) Negative Normal NEGATIVE [facility] Comment on above: Performed By: #### I NSULIN #### [facility] [address] [place] [address] Dr. Rachel Cortez pH (U) 6.0 [pH] Normal 5-9 [facility] Comment on above: Performed By: #### I NSULIN #### [facility] [address] [address] [address] Rachel Cortez RBC NONE SEEN Abnormal 0-2 [facility] Comment on above: Performed By: #### I NSULIN #### [facility] [address] [address] [address] Rachel Cortez SPEC GRAVITY 1.030 Abnormal 1.005-<=1.0 25 [facility] Comment on above: Performed By: #### I NSULIN #### [facility] [address] [place] [address] Dr. Rachel Cortez UA PROTEIN Negative Normal NEGATIVE/ TRACE [facility] Comment on above: Performed By: #### I NSULIN #### [facility] [address] [place] [address] Dr. Rachel Cortez Urobilinogen Qn (U) 1.0 {Colby'U}/dL Normal 0.2 - 1.0 [facility] Comment on above: Performed By: #### I NSULIN #### [facility] [address] [place] [address] Dr. Rachel Cortez WBC NONE SEEN Normal NONE SEEN [facility] Comment on above: Performed By: #### I NSULIN #### [facility] [address] [place] [address] Dr. Rachel Cortez XR LSPINE MIN 4 [...] by: MARINA MAIN Date: 2022-05-06 16:40 Normal [facility] Vital Signs Date Time Vital Sign Value Performing Clinician Facility 02-26-2024 16:31-0500 Diastolic blood pressure 93 mm[Hg] Kim Sarmini [facility] 02-26-2024 16:31-0500 Heart rate 65 /min Kim Sarmini [facility] 02-26-2024 16:31-0500 Mean blood pressure 104 mm[Hg] Kim Sarmini [facility] 02-26-2024 16:31-0500 Respiratory rate 16 /min Kim Sarmini [facility] 02-26-2024 16:31-0500 SaO2% (BldA) [Mass fraction] 100 % Kim Sarmini [facility] 02-26-2024 16:31-0500 Systolic blood pressure 126 mm[Hg] Kim Sarmini [facility] 02-26-2024 16:16-0500 Body temperature 98.24 [degF] Kim Sarmini [facility] 02-26-2024 16:16-0500 Diastolic blood pressure 78 mm[Hg] Kim Sarmini [facility] 02-26-2024 16:16-0500 Heart rate 59 /min Kim Sarmini [facility] 02-26-2024 16:16-0500 Mean blood pressure 85 mm[Hg] Kim Sarmini [facility] 02-26-2024 16:16-0500 Respiratory rate 18 /min Kim Sarmini [facility] 02-26-2024 16:16-0500 SaO2% (BldA) [Mass fraction] 99 % Kim Sarmini [facility] 02-26-2024 16:16-0500 Systolic blood pressure 98 mm[Hg] Kim Sarmini [facility] 02-26-2024 16:10-0500 Diastolic blood pressure 63 mm[Hg] Kim Sarmini [facility] 02-26-2024 16:10-0500 Heart rate 56 /min Kim Sarmini [facility] 02-26-2024 16:10-0500 Respiratory rate 18 /min Kim Sarmini [facility] 02-26-2024 16:10-0500 SaO2% (BldA) [Mass fraction] 99 % Kim Sarmini [facility] 02-26-2024 16:10-0500 Systolic blood pressure 102 mm[Hg] Kim Sarmini [facility] 02-26-2024 16:05-0500 Respiratory rate 18 /min Kim Sarmini [facility] 02-26-2024 13:57-0500 Blood Pressure Location Kim Sarmini [facility] 02-26-2024 13:57-0500 Body temperature 98.24 [degF] Kim Sarmini [facility] 02-26-2024 13:57-0500 Respiratory rate 16 /min Kim Sarmini [facility] 02-01-2024 14:42-0400 Blood Pressure Location Kim Sarmini [place] 02-01-2024 14:42-0400 Diastolic blood pressure 78 mm[Hg] Kim Sarmini [place] 02-01-2024 14:42-0400 Heart rate 80 /min Kim Sarmini [place] 02-01-2024 14:42-0400 Respiratory rate 18 /min Kim Sarmini [place] 02-01-2024 14:42-0400 Systolic blood pressure 108 mm[Hg] Kim Sarmini [place] 08-02-2023 15:48-0400 Body height 177.8 cm Ji Fajardo MD Work Phone: [facility] 08-02-2023 15:48-0400 Body weight 72.45 kg Ji Fajardo MD Work Phone: [facility] 08-02-2023 15:48-0400 Diastolic blood pressure 74 mm[Hg] Ji Fajardo MD Work Phone: [facility] 08-02-2023 15:48-0400 Heart rate 74 /min Ji Fajardo MD Work Phone: [facility] 08-02-2023 15:48-0400 Respiratory rate 18 /min Ji Fajardo MD Work Phone: [facility] 08-02-2023 15:48-0400 SaO2% (BldA) [Mass fraction] 98 % Ji Fajardo MD Work Phone: [facility] 08-02-2023 15:48-0400 Systolic blood pressure 115 mm[Hg] Ji Fajardo MD Work Phone: [facility] Encounters Encounter Date Encounter Type Care Provider Facility Start: 07-31-2024 ambulatory Kim Talal Sarmini Facility:[facility] Start: 05-13-2024 ambulatory Kim Talal Sarmini Facility:[facility] Start: 03-11-2024 End: 03-11-2024 ambulatory Kim Talal Sarmini Facility:[facility] Start: 03-11-2024 End: 03-11-2024 Patient encounter procedure Kim Talal Sarmini [facility] Start: 02-26-2024 End: 02-26-2024 ambulatory Kim Talal Sarmini Facility:[facility] [place] [place] Start: 02-26-2024 End: 02-26-2024 Patient encounter procedure Kim Talal Sarmini [facility] Start: 02-09-2024 End: 02-09-2024 Documentation procedure Magda Emmanuel LAMINA SEARCHER [facility] Start: 02-08-2024 End: 02-08-2024 Documentation procedure Magda Emmanuel LAMINA SEARCHER [facility] Comment on above: Lead toxicity, accid ental or unintentional, initial encounter (Primary Dx) Start: 02-01-2024 End: 02-01-2024 ambulatory Kim Talal Sarmini Facility:[facility] Start: 02-01-2024 End: 02-01-2024 Patient encounter procedure Kim Talal Sarmini [facility] Start: 01-05-2024 ambulatory Kim Sarmini Facili ty:[facility] Start: 01-02-2024 ambulatory Kim Sarmini Facili ty:[facility] Start: 12-18-2023 End: 12-19-2023 ambulatory BERNARDO [facility] Start: 08-10-2023 End: 08-10-2023 ambulatory JI SCOTTY Facility:[facility] Start: 08-10-2023 End: 08-10-2023 ambulatory Jean Ley PT Work Phone: Physical Therapy Comment on above: Dizziness Start: 08-08-2023 End: 08-08-2023 ambulatory JAMAR STOCK [facility] Start: 08-04-2023 Telephone encounter Ji Magdaleno [facility] Comment on above: Workers comp Start: 08-03-2023 End: 08-03-2023 ambulatory JI [facility] Facility:[facility] Start: 08-03-2023 End: 08-03-2023 Subsequent hospital visit by physician [facility] (1.5t) Work Phone: Radiology Comment on above: Worsening headaches [R51.9] Start: 08-02-2023 End: 08-02-2023 ambulatory JI FAJARDO Facility:[facility] Start: 08-02-2023 End: 08-02-2023 Office outpatient new 45 minutes Ji Fajardo MD Work Phone: Neurology Headache [facility] Comment on above: Worsening headaches (Primary Dx); Dizziness; Toxic effect of lead, accidental or unintentional, initial encounter Start: 08-02-2023 Telephone encounter Ji Magdaleno [facility] Start: 08-01-2023 ambulatory Digna Chavez RN [facility] Start: 08-01-2023 Patient encounter procedure Digna Chavez RN NURSE LITIGATION SPECIALIST Comment on above: Referral Request Start: 06-21-2023 End: 06-21-2023 ambulatory OLLIE PITT [facility] Start: 06-20-2023 End: 06-20-2023 ambulatory INDU VOGT [facility] Start: 06-02-2023 End: 06-03-2023 ambulatory JOHN MEEKS [facility] Start: 06-01-2023 End: 06-03-2023 Emergency department patient visit MAINE FERGUSON [facility] Start: 06-01-2023 End: 06-02-2023 ambulatory IRENA JEFFERY [facility] Start: 09-01-2022 End: 09-02-[address] [...] on above: Performed By: #### LEADA #### [facility] [address] [place] [address] Dr. Rachel Cortez Plan of Treatment Date Care Activity Detail Author Start: 06-02-2026 Diabetes Screening Diabetes Screenin g [facility] Start: 06-02-2024 Adult BMI Screening Adult BMI Screen ing [facility] Start: 06-01-2024 Tobacco Screening Tobacco Screening [facility] Start: 12-24-2023 Covid-19 Vaccine ( season) Covid-19 Vaccine ( season) [facility] Start: 12-24-2023 Influenza vaccination C [facility] Start: 11-08-2023 End: 11-08-2023 Patient encounter procedure 11/08/2023 11:00 AM EDT Office Visit Neurology [address] [place] [address] Gina Dooley, WEB PRESS OPERATOR APPRENTICE.TICKET COUNTER [address] [place] [address] (work) Neurology Start: 07-29-2023 Diabetes Screening Diabetes Screenin g [facility] Start: 07-29-2023 Screening for malign ant neoplasm of colon [facility] Start: 04-24-2023 Behavioral Health Screening Behavioral Health Screening [facility] Start: 12-23-2022 Covid-19 Vaccine ( season) Covid-19 Vaccine ( season) [facility] Start: 2013 Lipid panel Lipid Screening [facility] Start: 1997 DTaP,Tdap and Td Vac cines (1 - Tdap) DTaP,Tdap and Td Vaccines (1 - Tdap) [facility] Start: 1997 Hepatitis B Vaccine (1 of 3 - 19+ 3-dose series) Hepatitis B Vaccine (1 of 3 - 19+ 3-dose series) [facility] Start: 1997 Urine microalbumin profile DTaP,Tdap,Td Vaccine (1 - Tdap) [facility] Start: 1996 Anxiety Screening Anxiety Screening [facility] Start: 1996 Depression Screening Depression Scre ing [facility] Start: 1996 Hepatitis C screening Hepatitis C Sc reening [facility] Start: 1996 HIV screening HIV Screening [facility] Start: 1990 Depression Screening Depression Scre [facility] Payers Date Payer Category Payer Unknown [id number] 2022 Unknown [id number] 2022 Unknown [id number] 2022 Commercial Managed C are - PPO [employer] [id number] 2020 Self-pay 1978 Unknown [id number] [id number]. 593 1978 Unknown [id number] 2.16.840.1.828781.3.579.2. 593 1978 Unknown [id number] 2.16.840.1.161109.3.579.2. 593 1978 Unknown [id number] 2.16.840.1.455073.3.579.2. 593 1978 Unknown [id number] 2.16.840.1.731104.3.579.2. 593 1978 Unknown [id number] 2.16.840.1.858834.3.579.2. 593 1978 Unknown [id number] 2.16.840.1.856183.3.579.2. 1286 1978 Unknown [id number] 2.16.840.1.133672.3.579.2. 128 1978 Unknown [id number] 2.16.840.1.960144.3.579.2. 1286 1978 Unknown [id number] 2.16.840.1.268269.3.579.2. 727 1978 Unknown [id number] 2.16.840.1.625898.3.579.2. 727 1978 Unknown [id number] 2.16.840.1.627794.3.579.2. 727 1978 Unknown [id number] 2.16.840.1.273619.3.579.2. 727 1978 Unknown [id number] 2.16.840.1.482747.3.579.2. 727 1978 Unknown [id number] 2.16.840.1.849978.3.579.2. 727 1959 Unknown [id number] Social History Date Type Detail Facility Tobacco smoking stat us NVIS Tobacco smoking consumption unknown [facility] Start: 1980 Sex Assigned At Not on file [facility] Start: 10-03-2018 End: 08-02-2023 Gender identity Not on file [facility] Start: 06-01-2023 End: 08-02-2023 Tobacco smoking status NHIS Never smoked tobacco [facility] Start: 06-01-2023 End: 08-02-2023 Tobacco use and exposure Smokeless tobacco non-user [facility] Start: 10-03-2018 End: 08-02-20[address] History of [address] [facility] National Score (1-100), lower number is lower risk 73 [facility] Start: 06-01-2023 Alcoholic beverage intake Ex-drinker (finding) [facility] Start: 11-27-2014 Sex Male (finding) [facility] Goals Date Patient Goal Desired Activity /State Personal health goal Comment on above: Formatting of this n ote might be different from the original. Evaluation of progress towards goal: awaiting test results Functional Status Date Assessment Result Facility 02-26-2024 Functional Status N/A [facility] 02-01-2024 Functional Status N/A [facility] Clinical Notes 06-20-2023 to 02-26-2024 [...] reduce GERD symptoms. Medicines. These may include: ?Dqhh-ipw-vjdygcz antacids. ?Medicines that make your stomach empty [...] may include: ?Fatty foods, like fried foods. ?Mercedes fruits, like oranges or lemon. ?Other foods [...] Do not drink alcohol. General instructions Take ungt-avv-vvapibk and prescription medicines only as told by [...] provider. Document Revised: 06/07/2022 Document Reviewed: 06/07/2022 [employer] Patient Education 2023 [employer]. 02/26/2024 16:20:33 Gastritis, Adult, Lwjj-bf-Gzwx Gastritis, Adult Gastritis is irritation and swelling [...] Follow these instructions at home: Medicines Take rkfj-qws-foxskxg and prescription medicines only as told by [...] provider. Document Revised: 08/14/2021 Document Reviewed: 08/14/2021 [employer] Patient Education 2023 [employer] 02/26/2024 16:20:32 Endoscopy, Care After Procedure [facility] [place] [place] ([facility]) Endoscopy Care After Procedure Please [...] blood. Document Released: 11/22/2004 Document Re-Released: 10/02/2006 [facility] [employer]. 02/26/2024 16:20:30 Hemorrhoids, Zopo-yx-Yfsz Hemorrhoids Hemorrhoids are swollen veins that may [...] Follow these instructions at home: Medicines Take lpvq-osn-oejvqtw and prescription medicines only as told by [...] provider. Document Revised: 12/21/2022 Document Reviewed: 12/21/2022 [employer] Patient Education 2023 [employer]. 02/26/2024 16:20:27 Colon Polyps Colon Polyps Colon [...] hard liquor (44 mL). General instructions Take ekpa-nla-ootikqv and prescription medicines only as told by [...] provider. Document Revised: 07/29/2020 Document Reviewed: 07/29/2020 [employer] Patient Education 2023 [employer]. 02/26/2024 16:20:26 Colonoscopy, Care After Surgery Salam [...] severe or gets worse throughout the day. [facility] 02-26-2024 Note Progress Note-Physic moncho Patient: REY BAXTER MRN: [id number] Age: 43 years Sex: Male : 1980 Associated Diagnoses: None Author: Malachi Garcia MD Postoperative Information Postoperative disposition: Postoperative disposition: To PACU. Optimetrix number: Optimetrix number [id number]. Anesthetic utilized: General. Health Status Allergies: Allergic [...] when meets criteria ( To home ). [facility] Comment on above: Result Comment: Elec tronically [...] day(s), # 60 cap(s), Refills(s) 3, Pharmacy: [facility], 178, cm, 02/01/24 14:47:00 EDT, Height/Length [...] All Problems Acute cystitis / SNOMED CT 102516490 / Confirmed Atrial fibrillation / SNOMED CT 82869659 / Confirmed Blood lead level above reference range / SNOMED CT 9651782290 / Confirmed Gastritis / SNOMED CT 8947812 / Confirmed Gastroenteritis / SNOMED CT 63689843 / Confirmed Gastroesophageal reflux disease / SNOMED CT 384322961 / Confirmed Inguinal lymphadenopathy / SNOMED CT 066397 / Confirmed Intussusception of small bowel / SNOMED CT 6406173587 / Confirmed Left lower quadrant pain / SNOMED CT 314295182 / Confirmed Lumbar radiculopathy / SNOMED CT 314652630 / Confirmed Obstructive sleep apnea syndrome / SNOMED CT 245122867 / Confirmed Osteoarthritis of knee / SNOMED CT 295677686 / Confirmed Paroxysmal atrial fibrillation / SNOMED CT 737772392 / Confirmed Pleuri (more content not included)... [facility] Comment on above: Result Comment: Elec tronically [...] Document Re-Released: 10/02/2006 [employer]??? Patient Information ???2009 [employer]. Colonoscopy Care After Surgery Please read the [...] with a weaknes (more content not included)... [facility] 02-26-2024 Note Endoscopic Procedure Report - Other [...] day(s), # 60 cap(s), Refills(s) 3, Pharmacy: [facility], 178, cm, 02/01/24 14:47:00 EDT, Height/Length [...] Normal examined terminal ileum Images Procedure images: Rec1_hd_video_2023__T16_22_34_602.j pg Rec1_hd_video_2023__04T16_21_19_505.j pg Rec1_hd_video_2023__04T16_21_09_083.j pg Rec1_hd_video_2023__T16_13_48_624.j pg Rec1_hd_video_2023__T16_13_32_251.j pg Rec1_hd_video_2023__T16_12_56_411.j pg Rec1_hd_video_2023__T16_12_22_128.j pg . Post-Procedure Complications: none. Nyasia (more content not included)... [facility] Comment on above: Result Comment: Elec tronically Signed By: Elías ROTH, Julio Pond\.margarito\Date and Time Signed: 02/26/24 16:16 EST Other Comment: Cynthia johnson Attachment - attachment storage system not supported [id number] Can be viewed in source system Missing Attachment - attachment storage system not supported [id number] Can be viewed in source system Missing Attachment - attachment storage system not supported [id number] Can be viewed in source system Missing Attachment - attachment storage system not supported [id number] Can be viewed in source system Missing Attachment - attachment storage system not supported [id number] Can be viewed in source system Missing Attachment - attachment storage system not supported 0628000 Can be viewed in source system Missing Attachment - attachment storage system not supported [id number] Can be viewed in source system 02-26-2024 [...] rule out celiac disease Images Procedure images: Rec1_hd_video_2023____53_306.j pg Rec_hd_video____35_015.j pg Rec1_hd_video__T1__53_396.j pg Rec1_hd_video_6__39_773.j pg Rec1_hd_video__T1__44_682.j pg Rec1_hd_video__T1__37_632.j pg Rec1_hd_video_T1__15_752.j pg . Post-Procedure Complications: none. Estimated blood [...] in GI clinic in 1-2 after discharge [facility] Comment on above: Result Comment: Elec tronically Signed By: Elías ROTH, Julio Pond\.br\Date and Time Signed: 02/26/24 15:56 EST Other Comment: Cynthia johnson Attachment - attachment storage system not supported [id number] Can be viewed in source system Missing Attachment - attachment storage system not supported [id number] Can be viewed in source system Missing Attachment - attachment storage system not supported 9910769 Can be viewed in source system Missing Attachment - attachment storage system not supported [id number] Can be viewed in source system Missing Attachment - attachment storage system not supported [id number] Can be viewed in source system Missing Attachment - attachment storage system not supported [id number] Can be viewed in source system Missing Attachment - attachment storage system not supported [id number] Can be viewed in source system 02-26-2024 [...] day(s), # 60 cap(s), Refills(s) 3, Pharmacy: [facility] 178, cm, 02/01/24 14:47:00 EDT, Height/Length [...] All Problems Atrial fibrillation / SNOMED CT 34110306 / Confirmed Acute cystitis / SNOMED CT 791311827 / Confirmed Gastritis / SNOMED CT 2133837 / Confirmed Gastroenteritis / SNOMED CT 16294786 / Confirmed Gastroesophageal reflux disease / SNOMED CT 894845471 / Confirmed Blood lead level above reference range / SNOMED CT 8173503925 / Confirmed Left lower quadrant pain / SNOMED CT 265815952 / Confirmed Inguinal lymphadenopathy / SNOMED CT 036674 / Confirmed Obstructive sleep apnea syndrome / SNOMED CT 002337534 / Confirmed Osteoarthritis of knee / SNOMED CT 591646295 / Confirmed Lumbar radiculopathy / SNOMED CT 255936293 / Confirmed Paroxysmal atrial fibrillation / SNOMED CT 512228884 / Confirmed Ventricular bigeminy / SNOMED CT 26420332 / Confirmed Urinary incontinence / SNOMED CT 6893107507 / Confirmed Right upper quadrant pain / SNOMED CT 214761948 / Confirmed Pleurisy / SNOMED CT 874208144 / Confirmed Intussusception of small bowel / SNOMED CT 2973127044 / Confirmed Screen for colon cancer / SNOMED CT 521074620 / Confirmed Histories Past Medical History: No [...] manuel angel lemonade - 03/30/2020 12:04 - Kym RNAldo Substance Abuse 02/01/20 (more content not included)... [facility] Comment on above: Result Comment: Elec tronically Signed By: Julio Mckinley MD\.br\Date and Time Signed: 02/26/24 15:50 EST 02-26-2024 Evaluation + Plan note Extrac mary from: Title:ANES Post-operative Note---General Author: Malachi Garcia MD Date:02/26/24 Plan Transfer/Discharge: Transfer/Discharge Discharge when meets criteria ( To home ). Extracted from: Title:ANES Pre-operative Note 2022 Author:Malachi Mcclain Date:02/26/24 Plan [place] [employer] Anesthesiologists (ASA) physical status classification: Class III. Anesthetic Preoperative Plan: Anesthesia General. Extracted from: Title:1Preop H&P Author:Julio Mckinley MD Date:02/26/24 Impression and Plan Impression: gerd, anemia, screening Plan: -EGD and Colonoscopy Future Appointments Appointment Date:03/11/2024 09:30:00 AM Scheduled Provider:Julio Mckinley MD Location:[facility] [place] [place] [facility] Appointment Type:[facility] Follow Up [facility] 10-18-2024 History of Present illness Narrative* Magda Benitez LPN - 02/09/2024 9:40 AM EDT LVM for Fara Kim at [facility] to notify that office is not [facility] certified and can not accept pt. Left return call back number if any questions or concerns arise. Magda BELLE [facility] History of Present illness Narrative* Magda Benitez LPN - 02/08/2024 9:49 AM EDT Received referral for Dr. Mart from [facility]. Order placed in system and referral scanned into chart. Note written in referral, staff needs to check if Dr. Mart is [facility] certified and if so referral office needs to place a C9. Magda BELLE Benign Hematology [facility]24 NoteUT Electrophysiology Consult Note Reason for visit: afib, chest pain , palpitations HPI: Rey Baxter is a 43 y.o. year old with past medical history of Lumbar radiculopathy, GERD, HERIBERTO, fatigue, paroxysmal A-fib,, lead toxicity. Patient was referred to our clinic for A-fib he was seen recently at [facility] [address] and was found to be in A-fib [...] lead toxicity Patient was referred to [facility] [place] but it seems as though no one [...] Murmur: not heard Extrem (more content not included)...[facility] 08-10-2023 NoteHNO ID: [id number] Author: JEAN LEY PT Service: ? Author [...] Planned: (4) Planned Treatment Interventions: Neuromuscular re-education (95563), Manual therapy (67307), Therapeutic activities (49058), Self-jail management (17246), Therapeutic exercise (52749), Patient/Family/Caregiver Education PLAN FOR NEXT VISIT: Patient [...] Gait and vertical head (more content not included)...[facility] 08-10-2023 History of Present illness Narrative* Jean Ley, PT - 08/10/2023 10:06 AM EDT Program_ID:[id number] Access Code: [email or web address] URL: [email or web address] Date: 08-10-2023 Prepared By: Jean Ley Program [...] PHYSICAL THERAPY EVALUATION PLAN OF CARE: Assessment: Rye Baxter presents with chief complaint of dizziness [...] Planned: (4) Planned Treatment Interventions: Neuromuscular re-education (19952), Manual therapy (25571), Therapeutic activities (95531), Self-jail management (71715), Therapeutic exercise (43493), Patient/Family/Caregiver Education PLAN FOR NEXT VISIT: Patient [...] head and temples) Rating of current symptoms: 10 Location: temporal region, occipital region Frequency: Intermittent Duration: days Neck Symptoms: Yes Description: soreness Rating of current symptoms: 10 Frequency: Intermittent Duration: minutes Ear Symptoms: No [...] WITH LEVEL OF FUNCTION: Positional Testing Left [place]-Hallpike: Asymptomatic Right Nylen Barany: Asymptomatic Supine Head [...] States/Identifies, Return Demonstration TREATMENT: PT Treatment Interventions: Self-Mcc Management, Manual Therapy, Neuromuscular Re-Education Evaluation Therapeutic [...] 932 Jean Ley PT documented in this encounterSt. [facility]24 NoteUT Electrophysiology Consult Note Reason for visit: afib, chest pain , palpitations HPI: Rey Baxter is a 43 y.o. year old with past medical history of Lumbar radiculopathy, GERD, HERIBERTO, fatigue, paroxysmal A-fib,, lead toxicity. Patient was referred to our clinic for A-fib he was seen recently at [facility] [address] and was found to be in A-fib [...] his lead toxicity Patient was referred to [facility] but it seems as though [...] s2, no gallop Systo (more content not included)...[facility] 08-04-2023 Miscellaneous Notes* Telephone Encounter - Zander Denson MA - 08/04/2023 9:08 AM EDT Patient records received via electronic fax. Uploaded to [employer] via [employer]. Please review in scanned documents tab of chart review. Zander Denson MA documented in this encounterSt. Anthony'[facility] Hospital04-11-2024 NoteHNO ID: [id number] Author: MATTHEW BANERJEE CT Service: ? Author [...] PATIENT PRESENTS WITH AN IMPLANTABLE OR ATTACHED COMMERCIAL PROPERTY MANAGER: No ALLERGIES: Reviewed and unchanged CONTRAST ALLERGY: NO. EXAM: MRI - CONTRAST TYPE: GROUP II PERIPHERAL IV DATA: Ambulatory: A peripheral IV was started in the Left antecubital site with a Angio cath: 24 gauge. RADIOLOGY DEPARTMENT: MR; Exam(s) Completed: Head: Routine Brain SIGNATURE: TATI Tolbert PATIENT NAME: Rey Baxter DATE: August 03, 2023 TIME: 3:06 [facility]04-11-2024 History of Present illness Narrative* Matthew [...] PATIENT PRESENTS WITH AN IMPLANTABLE OR ATTACHED COMMERCIAL PROPERTY MANAGER: No ALLERGIES: Reviewed and unchanged CONTRAST ALLERGY: NO. EXAM: MRI - CONTRAST TYPE: GROUP II PERIPHERAL IV DATA: Ambulatory: A peripheral IV was started in the Left antecubital site with a Angio cath: 24 gauge. RADIOLOGY DEPARTMENT: MR; Exam(s) Completed: Head: Routine Brain SIGNATURE: TATI Tolbert PATIENT NAME: Rey Baxter DATE: August 03, 2023 TIME: 3:06 PM documented in this encounterSt. [facility] Hospital04-10-2024 NoteHNO ID: [id number] Author: JI FAJARDO MD Service: ? 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 Lead is not being chelated at [...] worsening headaches. 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 Pt can trial nortriptyline 10 mg po qhs in the interim for symptomatic relief. Return 3 months or sooner if needed. Ji Fajardo MD August 04, 2023 2:09 PM documented in this encounterSt. Anthony'[facility] Hospital04-09-2024 Miscellaneous Notes* Telephone Encounter - Digna Chavez RN - 08/01/2023 5:12 PM EDT Patient calling with request for physician referral: Patient referred to Neurology Department. . Patient denies any new or worsening symptoms of which a provider is not aware: Yes. Ac took call back over for scheduling. documented in this encounterSt. Anthony'[facility] Hospital02-28-2024 NoteUT Electrophysiology Consult Note Reason for visit: afib, chest pain , palpitations, new pt HPI: Rey Baxter is a 42 y.o. year old with past medical history of Lumbar radiculopathy, GERD, HERIBERTO, fatigue, paroxysmal A-fib,, lead toxicity. 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 Clinic number provided. [facility]02-27-2024 NoteThiannamarie chart writer was consulted by Dr. Vogt to assist patient with workers comp claim and resources for lead poisoning. This chart writer met with patient following his visit with Dr. Vogt and provided him the [place] of Workers' Compensation contact. This chart writer informed patient resources on lead poisoning will be researched as this chart writer does not currently have information. The patient stated Dr. Vogt provided him with poison control's contact and he plans to call them. This chart writer will research additional resources.[facility]02-27-2024 NoteHEMATOLOGY ONCOLOGY CONSULT NOTE Reason for consult: Chief Complaint: History of present illness: The patient is a 42 y.o. male with PMHx of that presented with lead poisoning. Company makes plaques . Patient melts of the same and 06/01/2023 Lead,Blood,Venipuncture Order: [id number] Component Ref Range & Units 2 wk ago Lead <3.5 mcg/dL 33.8 High Comment: NOTE Patient had lead testing [place] [facility] and was 43 Upon evaluation, No results found for: WBC , HGB , HCT , MCV , PLT Order: [id number] Component Ref Range & Units 2 wk [...] 0.0 - 0.2 X10E9/L 0.1 Resulting Agency [facility] Specimen Collected: 06/01/23 15:10 Performed by: [employer] Last Resulted: 06/01/23 15:22 Received From: [employer] Result Received: 06/20/23 13:09 View Encounter Received Information Result Report CBC auto differential (Order #[id number]) on 06/01/23 Lab Component SmartPhrase Guide CBC auto differential (Order #[id number]) on 06/01/23 Additional PMHx includes afib passed out work and was admitted in [place] and has been on eliquis since jun 02 by cardiology Hematologic / Oncologic hx: - Family hx of malignancy/blood disorder: none - Primary Ecommerce Marketing Manager/Oncologist:none - Established diagnoses: Lead poisoning will be [...] on file Intimate Partner Violence: Unknown (06/16/2023) [place] Safety & Environment Fear of Current or [...] 2. Screening for col (more content not included)...[facility] note Future Appointments Appointment Date:02/26/2024 02:45:00 PM Scheduled Provider: Location:[facility] Appointment Type:Surgery FT Appointment Date:03/11/2024 09:30:00 AM Scheduled Provider:Julio Mckinley MD Location:[facility] [place] [facility] Appointment Type:[facility] Follow Up [facility] Evaluation note* Diagnosis Worsening headaches- Primary Headache Dizziness Dizziness and giddiness Toxic effect of lead, accidental or unintentional, initial encounter documented [facility]* Diagnosis Dizziness Dizziness and giddiness documented [facility] this [facility]* Diagnosis Worsening headaches Headache documented in this encounter [facility] note* Diagnosis Lead toxicity, accidental or unintentional, initial encounter- Primary [facility] Narrative No data available for this section [facility] Hospital Discharge instructions No data available for this section [facility] InstructionsNot on filedocumented in this encounter [facility] filedocumented in this encounter [facility] No data available for this section [facility] Summary Purpose Family History [...] Referral Specialty Diagnoses / Procedures Referred By Aide lopez Referred To Contact Diagnoses Worsening headaches Procedures PROVIDER ORDERED FOLLOW UP OFFICE/OUTPATIENT NEW HIGH MDM [address] [place] [address] [place] [address] Referral ID Status Reason Start Date Expiration Date Visits Requested Visits Authorized [id number] Pending Review PCP Requested Referral 11/01/2023 08/01/2024 1 1 Specialty Diagnoses / Procedures Referred By Aide t Referred To Contact [facility] Diagnoses Dizziness Procedures CONSULT TO PHYSICAL THERAPY PHYSICAL THERAPY EVALUATION HIGH COMPLEX [address] [place] [address] [place] [address] [facility] [address] [address] Referral ID Status Reason Start Date Expiration Date Visits Requested Visits Authorized [id number] Pending Review Auto-Generat ed Referral 08/02/2023 08/01/2024 1 1 Specialty Diagnoses / Procedures Referred By Aide lopez Referred To Contact MR IMAGING Diagnoses Worsening headaches Procedures MRI BRAIN WO/W IVCON MRI BRAIN BRAIN STEM W/O W/[place] [address] [place] [address] [place] [address] Referral ID Status Reason Start Date Expiration Date V isits Requested Visits Authorized [id number] Closed Auto-Generate d Referral 08/02/2023 08/31/2024 1 1 Additional Source Comments (unrecognized sect ion and content) No Status Records FoundNo Status Records FoundNo Status Records FoundNo Status Records FoundNo Status Records FoundNo Status Records FoundNo Status Records Found INFORMATION SOURCE (unrecogn ized section and content) DATE CREATED AUTHOR 09/05/2022 [facility] DATE CREATED AUTHOR AUTHOR'S ORGANIZ ATION 06/05/2023 [facility] DATE CREATED AUTHOR AUTHOR'S ORGANIZ ATION 08/14/2023 [facility] DATE CREATED AUTHOR AUTHOR'S ORGANIZ ATION 01/28/2024 [facility] DATE CREATED AUTHOR AUTHOR'S ORGANIZ ATION 03/06/2024 [facility] DATE CREATED AUTHOR AUTHOR'S ORGANIZ ATION 03/12/2024 [facility] DATE CREATED AUTHOR AUTHOR'S ORGANIZ ATION 07/03/2024 [facility] Source Comments (unrecognize d section and content) In the event this informatio n is protected by the Federal Confidentiality of Alcohol and Drug Abuse Patient Records regulations: The Federal rules restrict any use of the information to criminally investigate or prosecute any alcohol or drug abuse patient.[facility] HospitalIn the event this information is protected by the Federal Confidentiality of Alcohol and Drug Abuse Patient Records regulations: The Federal rules restrict any use of the information to criminally investigate or prosecute any alcohol or drug abuse patient.[facility] HospitalIn the event this information is protected by the Federal Confidentiality of Alcohol and Drug Abuse Patient Records regulations: The Federal rules restrict any use of the information to criminally investigate or prosecute any alcohol or drug abuse patient.[facility] HospitalIn the event this information is protected by the Federal Confidentiality of Alcohol and Drug Abuse Patient Records regulations: The Federal rules restrict any use of the information to criminally investigate or prosecute any alcohol or drug abuse patient.[facility] HospitalIn the event this information is protected by the Federal Confidentiality of Alcohol and Drug Abuse Patient Records regulations: The Federal rules restrict any use of the information to criminally investigate or prosecute any alcohol or drug abuse patient.[facility] HospitalIn the event this information is protected by the Federal Confidentiality of Alcohol and Drug Abuse Patient Records regulations: The Federal rules restrict any use of the information to criminally investigate or prosecute any alcohol or drug abuse patient.[facility] Reason for Visit (unrecogniz ed section and content) Reason Comments Referral Request Reason Comments Workers comp Reason Comments New Patient Headaches Specialty Diagnoses / Procedures Referred By Contac t Referred To Contact Neurology / HEADACHE Diagnoses Intake Simon / RM [address] GARC[address], Numbness/tingling, Dizziness, Confusion. Procedures NEW NEUR HEADACHE Ashley Foster, TICKET COUNTER [address] [place] [address] Ji Fajardo MD [address] [place], [place] [id number] Referral ID Status Reason Start Date Expiration Date V isits Requested Visits Authorized [id number] Authorized 07/10/2023 01/10/2024 2 2 Reason Comments PT Eval Specialty Diagnoses / Procedures Referred By Contac t Referred To Contact [facility] Diagnoses Dizziness Procedures CONSULT TO PHYSICAL THERAPY PHYSICAL THERAPY EVALUATION HIGH COMPLEX 45 MINS Ji Fajardo MD [address] [place] [id number] [facility] [place] [id number] Referral ID Status Reason Start Date Expiration Date Visits Requested Visits Authorized [id number] Pending Review Auto-Generat ed Referral 08/02/2023 08/01/2024 1 1 Reason Comments Radiology MRI Specialty Diagnoses / Procedures Referred By Contac t Referred To Contact MR IMAGING Diagnoses Worsening headaches Procedures MRI BRAIN WO/W IVCON MRI BRAIN BRAIN STEM W/O W/CONTRAST MATERIAL Ji Fajardo MD [address] [place] [address] [facility]95 Referral ID Status Reason Start Date Expiration Date V isits Requested Visits Authorized [id number] Closed Auto-Generate d Referral 08/02/2023 08/31/2024 1 1 Care Teams (unrecognized sec tion and content) Sales Order Coordinator Relationship Specialty Start Date End Date Ollie Pitt [address] [place] [facility] [place] [address] 06/26/23 Ashley Foster CNP [address] [place] [facility] [address] Referring Family Medicine 07/26/23 Sales Order Coordinator Relationship Specialty Start Date End Date Ollie Pitt [address] [place] [facility] [place] [address] 06/26/23 Ashley Foster CNP [address] [place] [place] [place] [address] Referring Family Medicine 07/26/23 Sales Order Coordinator Relationship Specialty Start Date End Date Ollie Pitt [address] [place] [facility] [place] [facility] [address] 06/26/23 Ashley Foster CNP [address] [place] [place] [address] Referring Family Medicine 07/26/23 Sales Order Coordinator Relationship Specialty Start Date End Date Ollie Pitt [address] [place] [facility] [place] [facility] [address] 06/26/23 Ashley Foster CNP [address] [place] [place] [place] [address] Referring Family Medicine 07/26/23 Sales Order Coordinator Relationship Specialty Start Date End Date Ollie Pitt [address] [place] [facility] [place] [address] 06/26/23 Ashley Foster CNP [address] [place] [place] [address] Referring Family Medicine 07/26/23 Sales Order Coordinator Relationship Specialty Start Date End Date Ollie Pitt, ROTARY SHEAR WORKER HELPER [address] [place] [facility] [place] [facility] [address] 06/26/23 Ashley Foster CNP [address] [place] [place] [place] [address] Referring Family Medicine 07/26/23 Sales Order Coordinator Relationship Specialty Start Date End Date Irena Jeffery MD PCP - General Family Medicine 06/01/23 Sales Order Coordinator Relationship Specialty Start Date End Date Irena [...] BE BASED ON THE PRIMARY CLINICAL RECORDS. [employer] [facility]. provides no warranty or guarantee of the accuracy or completeness of information in this document.
--- OUTSIDE RECORDS SUMMARY | 2024-07-06 10:07 | XMS_ITS | CCD ---
Author Organization [facility] Care Team Providers Care It Quality Assurance Analyst Name Role Phone LATIA ., DR OSBORN [...] Ollie Pitt Unavailable Ashley Foster CNP Unavailable [phone] JI FAJARDO Referring Unavailable SCOTTY, JI Referring Unavailable SCOTTYBRODY BECERRAOLD Attending Unavailable Ollie Pitt NP Unavailable JAMAR STOCK Attending Unavailable OLLIE PITT Attending Unavailable BERNARDO HAYNES Attending Unavailable INDU VOGT Attending Unavailable Irena Jeffery Primary Care Physician [phone] Julio Mckinley Attending Unavaila ble SarminiJulio Talal Attending Unavaila ble Sarmini, Kim Talal Referring Unavaila ble Sarmini, Kim Talal Admitting Unavaila ble Sarmini, Kim Talal Attending Unavaila Irena Silver MD Primary Care Provider [phone] Julio Mckinley Attending Unavaila ble Sarmini, Kim [...] oral solution (3 sources) alpha-Adrenergic Agonist, Uncompetitive M-ooeqzj-V-aspartate Receptor Antagonist, Sigma-1 Agonist Start: 05-26-2018 take [...] day(s), # 60 cap(s), Refills(s) 3, Pharmacy: [facility], 178, cm, 02/01/24 14:47:00 EDT, Height/Length [...] Ordered Start: 08-02-2023 take 1 capsule by [facility] once daily at bedtime nortriptyline (PAMELOR) [...] Surgical Pathology Reporton 03-01-2024 Surgical Pathology Report [facility] [address] [place] [address]- Surgical Pathology Report Collected Date/Time: 02/26/2024 15:55 [...] is entirely submitted in one cassette. (DC) DC:[facility] Microscopic Description Microscopic examination performed unless [...] controls are performed and are acceptable. Normal [facility] Comment on above: Performed By: #### [id number] #### [facility] [address] [place] [address] Main OR Intraoperative Recor don 02-27-2024 Main OR Intraoperative Record Main OR Intraoperative Record IntraOp Document Type FT Summary Primary Physician: Julio Mckinley MD Finalized Date/Time: 02/27/24 14:33:06 Pt. Name: REY BAXTER/Sex: 1980 Male Med Rec #: [id number] Physician: Julio Mckinley MD Financial #: [id number] Pt. 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 Normal [facility] Discharge Instructionson Discharge Instructions Discharge Instructions [...] AM EST With: Julio Mckinley MD Where: [facility] [address] [facility] [address] [place] [address]- Medications What How Much When Instructions Next [...] time. In (more content not included)... Normal [facility] Comment on above: Result Comment: Elec tronically Signed By: Ayla Gage I\.br\Date and Time Signed: 02/26/24 16:20 EST Inpatient Patient Summaryon 02-26-2024 Inpatient Patient Summary Inpatient Patient Summary [place] [id number] [facility] Clinical Discharge Instructions PERSON INFORMATION Name: REY BAXTER PHYSICIANS Admitting Physician: Julio Mckinley MD Attending Physician: Julio Mckinley MD PCP: Latia ROTH, Irena Discharge Diagnosis: Chronic GERD; Colon cancer screening Comment: PATIENT EDUCATION INFORMATION Instructions: Medication Leaflets: Follow up: Type Location Start [facility] Follow Up [facility] 03/11/2024 9:30 AM 03/11/2024 9:45 [...] Responsible Provider: Irena Jeffery MD Comment: Cherelle [facility] Main OR PACU II Recordon Main OR PACU II Record Main OR PACU II Record PACU Phase II Document Type FT Summary Primary Physician: Julio Mckinley MD Finalized Date/Time: 02/26/24 16:44:59 Pt. Name: REY BAXTER/Sex: 1980 Male Med Rec #: [id number] Physician: Julio Mckinley MD Financial #: [id number] Pt. Type: O Room/Bed: / Admit/Disch: 02/26/24 [...] By: Ayla Gage I 02/26/24 16:44 Normal [facility] Main OR Preoperative Recordo n 02-26-2024 Main OR Preoperative Record Main OR Preoperative Record Holding Area Document Type FT Summary Primary Physician: Julio Mckinley MD Finalized Date/Time: 02/26/24 14:02:22 Pt. Name: REY BAXTER/Sex: 1980 Male Med Rec #: [id number] Physician: Julio Mckinley MD Financial #: [id number] Pt. Type: O Room/Bed: / Admit/Disch: 02/26/24 [...] By: Guerline Vaughn RN 02/26/24 14:02 Normal [facility] Outpatient Surgery Discharge Instructionon 02-26-2024 Outpatient Surgery Discharge Instruction Outpatient Surgery Discharge Instruction [place] [id number] Patient Discharge Instructions PERSON INFORMATION Name: REY [...] Signature Date Follow up: Type Location Start [facility] Follow Up [facility] 03/11/2024 9:30 AM 03/11/2024 9:45 [...] to serve you. Thank you for choosing [facility] HERE ARE THE MEDICATION CHANGES THAT OCCURRED [...] MD PATIENT EDUCATION INFORMATION Instructions: Medication Leaflets: [facility] Gastroenterology Office/Clin ic Noteon 02-01-2024 Gastroenterology Office/Clinic [...] GLP-1 agonists? no CT abd/pelvis 12/29/23 @ [place]: IMPRESSION: 1. Nonobstructing left mid abdominal small [...] E&M of New Patient Moderate 45-59 Min 31348 EGD Endoscopy (Hospital Procedure) 2. LUQ pain [...] E&M of New Patient Moderate 45-59 Min 82118 EGD Endoscopy (Hospital Procedure) 4. 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 Never Smokeless Tobacco Use:., 02/01/2024 Normal [facility] Comment on above: Result Comment: Elec tronically Signed By: Elías ROTH, Julio Pond\.margarito\Date and Time Signed: 02/01/24 15:45 EDT Office Visiton 12-18-2023 Follow-up visit [id number] Blanca Baxter 1980 M Date Provider Department Center 12/18/2023 3848-BERNARDO HAYNES [facility] Family History Problem Relation Age of Onset Lupus Mother Muscular dystrophy Mother Diabetes Other Family Status - Relation Status Age at Mother Other Level of Service:62466 CO OFFICE/OUTPATIENT ESTABLISHED LOW MDM 20 MIN Normal [facility] CNTHERAPYon 08-10-2023 CNTHERAPY OT/PT/Speech Visit ( [facility]) REY BAXTER ([id number]) 1980 M Date Time Provider Department 08/10/23 9:30 AM JEAN LEY [facility] Date Time Provider Department Center 08/10/2023 9:30 AM [id number] LEY [facility] Reason for Visit: PT Eval [747] Visit [...] 1 capsule by mouth daily at bedtime. Pediatric Care Coordinator: Therapy (PT/OT/Speech/Resp) ID: [id number] 08/10/2023 10:06 AM Author: JEAN LEY Signed by JEAN LEY PT on 08/10/2023 at 10:06 AM Document text: Program_ID:[id number] Access Code: [email or web address] URL: [email or web address] Date: 08-10-2023 Prepared By: Jean Ley Program [...] - 3 sets - 10 reps Normal [facility] THERAPY NTon 08-10-2023 THERAPY NT HNO ID: [id number] Author: JEAN LEY PT Service: ? Author Type: Physical Therapist Type: Therapy (PT/OT/Speech/Resp) Filed: 08/10/2023 10:06 Note Text: Program_ID:[id number] Access Code: [email or web address] URL: [email or web address] Date: 08-10-2023 Prepared By: Jean Ley Program [...] - 3 sets - 10 reps Normal [facility] Office Visiton 08-08-2023 Follow-up visit [id number] Blanca Baxter 1980 [facility] Provider Department Center 08/08/2023 241-JAMAR STOCK ARASELI [facility] Family History Problem Relation Age of Onset Lupus Mother Muscular dystrophy Mother Diabetes Other Family Status - Relation Status Age at Mother Other Level of Service:59903 CO OFFICE/OUTPATIENT NEW MODERATE MDM 45 MINUTES Normal [facility] CNPJoyce 08-04-2023 CNPN Telephone (NUMBHT) REY BAXTER ([id number]) 1980 M Date Time Provider Department 08/04/23 JI FAJARDO During your visit today, we recorded the following information about you: Zander Denson MA 08/04/2023 9:09 AM Signed Patient records received via electronic fax. Uploaded to [employer] via [employer]. Please review in scanned documents tab of [...] Status:Closed by ZANDER DENSON on 08/04/23 Normal [facility] MR Brain WO and W contrast I Josh 08-03-2023 IMPRESSION: Minimal paranasal sinus inflammatory changes. Otherwise normal study. Coordinator Skill Training Program: TAE Transcribe Date/Time: Aug 03 2023 3:53P Dictated by : JAMAR SMITH MD This examination was interpreted and the report reviewed and electronically signed by: JAMAR SMITH MD on Aug 03 2023 3:57PM [facility] DIVISION OF RADIOLOGY * * *Final Report* * * DATE OF EXAM: Aug 03 2023 3:38PM [facility] 0295 - MRI BRAIN WO/W IVCON [...] paranasal sinus inflammatory changes. Otherwise normal study. Coordinator Skill Training Program: PSCB Transcribe Date/Time: Aug 03 2023 3:53P Dictated by : JAMAR SMITH MD This examination was interpreted and the report reviewed and electronically signed by: JAMAR SMITH MD on Aug 03 2023 3:57PM EST [facility] Radiology Study observation (narrative) [facility] MR Brain WO and W contrast I VOrdered By: Ccf Provider on 08-03-2023 [facility] MRI BRAIN WO/W IVCONon 08-02 MRI BRAIN WO/W IVCON * * *Final Report* * * DATE OF EXAM: Aug 03 2023 3:38PM [facility] 0295 - MRI BRAIN WO/W IVCON [...] paranasal sinus inflammatory changes. Otherwise normal study. Coordinator Skill Training Program: TAE Transcribe Date/Time: Aug 03 2023 3:53P Dictated by : JAMAR SMITH MD This examination was interpreted and the report reviewed and electronically signed by: JAMAR SMITH MD on Aug 03 2023 3:57PM EST [id number] Normal [facility] CNOVon 08-02-2023 CNOV Office Visit ([facility]) REY BAXTER ([id number]) 1980 M Date Time Provider Department 08/02/23 4:00 PM JI FAJARDO [facility] During your visit today, we recorded the following information about you: Pulse Respiration Blood pressure Weight 74/minute 18/minute 115/74 72.4 kg Height 1.778 m Ji Fajardo MD 08/04/2023 2:09 PM Signed [facility] NEW EVALUATION August 04, 2023 4:00 PM Pt is 43 year old male from [place], [place] who presents with headaches that appears subsequent to 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 Lead is not being chelated at [...] iv contrast (more content not included)... Normal [facility] Yumiko 08-02-2023 ANIBAL Telephone (NUMBHT) REY BAXTER ([id number]) 1980 M Date Time Provider Department 08/02/23 [...] Encounter Status:Closed by ZANDER DENSON on 08/03/[address] 06-22-2023 36 Per Ollie Pitt via [...] so stress test just needs done catia. [facility] 36 Zywie called this mo rning to [...] the entire left side of his body. 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 7) to keep follow up with the current lead poisoning expert 80 please reach out tp poison control [place] for direction [phone] [facility] CBC AND AUTO DIFFon 06-02-19 24 ABSOLUTE BASOPHIL 0.1 X10E9/L [facility]0-0.2 [facility] Comment on above: Performed By: #### C BCA, CMP, 51777-9, PINR, 81224-9, 73477-1, 53116-9, 90038-3, THYR #### [facility] ([id number]) [address] [place] [address], [place] [address] ABSOLUTE NEUTROPHIL 3.9 X10E9/L Normal 1.5-6.6 [facility] Comment on above: Performed By: #### C BCA, CMP, 75725-5, PINR, 20419-6, 88720-2, 90159-3, 88843-7, THYR #### [facility] ([id number]) [address] [place] [address] 87258 Basophils/100 WBC (Bld) 0.8 % Normal [facility] Comment on above: Performed By: #### C BCA, CMP, 06575-9, PINR, 80828-7, 77338-1, 74576-5, 66195-4, THYR #### [facility] ([id number]) [address] [place] [address] 12726 Eosinophils (Bld) [#/Vol] 0.1 10*3/uL Normal 0.0-0.4 [facility] Comment on above: Performed By: #### C BCA, CMP, 08838-7, PINR, 18511-1, 98309-0, 29869-4, 37470-1, THYR #### [facility] ([id number]) [address] [place] [address] 05383 Eosinophils/100 WBC (Bld) 1.4 % Normal [facility] Comment on above: Performed By: #### C BCA, CMP, 55627-1, PINR, 62444-3, 12466-0, 29231-0, 43745-7, THYR #### [facility] ([id number]) [address] [place] [address] 52584 Erythrocyte distribution width (RBC) [Ratio] 13.2 % Normal 11.5-15.0 [facility] Comment on above: Performed By: #### C BCA, CMP, 92752-9, PINR, 27549-2, 80060-9, 42995-3, 95792-1, THYR #### [facility] ([id number]) [address] [place] [address] 80784 Hematocrit (Bld) [Volume fraction] 40.7 % Normal 39-49 [facility] Comment on above: Performed By: #### C BCA, CMP, 72198-9, PINR, 50160-4, 87456-3, 67162-0, 69110-2, THYR #### [facility] ([id number]) [address] [place] [address] 88911 Hemoglobin (Bld) [Mass/Vol] 14.2 g/dL Normal 13.0-17.0 [facility] Comment on above: Performed By: #### C BCA, CMP, 65494-2, PINR, 43960-2, 59728-7, 89831-7, 59304-8, THYR #### [facility] ([id number]) [address] [place] [address] 98887 Lymphocytes (Bld) [#/Vol] 2.2 10*3/uL Normal 1.0-3.5 [facility] Comment on above: Performed By: #### C BCA, CMP, 08284-2, PINR, 29328-3, 84206-3, 44085-5, 06978-8, THYR #### [facility] ([id number]) [address] [place] [address] 28641 Lymphocytes/100 WBC (Bld) 31.4 % Normal [facility] Comment on above: Performed By: #### C BCA, CMP, 09468-2, PINR, 41554-6, 68420-4, 49246-8, 25788-1, THYR #### [facility] ([id number]) [address] [place] [address] 26608 MCH (RBC) [Entitic mass] 30.7 pg Normal 27-34 [facility] Comment on above: Performed By: #### C BCA, CMP, 94336-0, PINR, 86557-6, 48957-0, 62411-8, 55632-7, THYR #### [facility] ([id number]) [address] [place] [address] 47546 MCHC (RBC) [Mass/Vol] 34.9 g/dL Normal 32-36 [facility] Comment on above: Performed By: #### C BCA, CMP, 65245-4, PINR, 50768-8, 67708-1, 65920-5, 34911-3, THYR #### [facility] ([id number]) [address] [place] [address] 13742 MCV (RBC) [Entitic vol] 88 fL Normal 80-100 [facility] Comment on above: Performed By: #### C BCA, CMP, 57043-5, PINR, 01652-5, 46170-6, 46031-9, 22944-4, THYR #### [facility] ([id number]) [address] [place] [address] 65466 Monocytes (Bld) [#/Vol] 0.7 10*3/uL Normal 0-0.9 [facility] Comment on above: Performed By: #### C BCA, CMP, 99610-6, PINR, 22935-5, 66592-0, 36641-5, 85868-7, THYR #### [facility] ([id number]) [address] [place] [address] 02919 Monocytes/100 WBC (Bld) 10.7 % Normal [facility] Comment on above: Performed By: #### C BCA, CMP, 23208-6, PINR, 79688-7, 30017-0, 54926-2, 51120-6, THYR #### [facility] ([id number]) [address] [place] [address] 56604 Neutrophils/100 WBC (Bld) 55.7 % Normal [facility] Comment on above: Performed By: #### C BCA, CMP, 01185-2, PINR, 76797-7, 16411-2, 72383-4, 62013-3, THYR #### [facility] ([id number]) [address] [place] [address] 87085 Platelet mean volume (Bld) [Entitic vol] 8.5 fL Normal 7-12 [facility] Comment on above: Performed By: #### C BCA, CMP, 56838-8, PINR, 67985-1, 31737-9, 21675-7, 26997-6, THYR #### [facility] ([id number]) [address] [place] [address] 28505 Platelets (Bld) [#/Vol] 192 10*3/uL Normal 150-450 [facility] Comment on above: Performed By: #### C BCA, CMP, 39836-2, PINR, 16032-4, 03343-9, 47622-3, 38002-8, THYR #### [facility] ([id number]) [address] [place] [address] 35013 RBC COUNT 4.61 X10E12/L Normal 4.10-5.70 [facility] Comment on above: Performed By: #### C BCA, CMP, 67193-6, PINR, 68136-2, 32166-1, 07528-0, 80904-8, THYR #### [facility] ([id number]) [address] [place] [address] 98396 WBC (Bld) [#/Vol] 7.0 10*3/uL Normal 4.0-11.0 [facility] Comment on above: Performed By: #### C BCA, CMP, 87489-7, PINR, 81571-8, 26566-2, 52240-4, 18680-3, THYR #### [facility] ([id number]) [address] [place] [address] 46281 COMPREHENSIVE METABOLIC PANE Nik 06-02-2023 Albumin [Mass/Vol] 4.2 g/dL Normal 3.2-5.3 [facility] Comment on above: Performed By: #### C BCA, CMP, 38976-5, PINR, 70680-3, 59898-1, 00051-0, 40842-5, THYR #### [facility] ([id number]) [address] [place] [address] 65661 ALP [Catalytic activity/Vol] 84 U/L Normal 39-130 [facility] Comment on above: Performed By: #### C BCA, CMP, 81131-4, PINR, 85096-2, 59229-1, 02588-8, 07846-7, THYR #### [facility] ([id number]) [address] [place] [address] 47252 ALT [Catalytic activity/Vol] 27 U/L Normal 0-40 [facility] Comment on above: Performed By: #### C BCA, CMP, 07992-8, PINR, 42694-2, 66992-4, 46225-4, 59802-2, THYR #### [facility] ([id number]) [address] [place] [address] 60994 Anion gap [Moles/Vol] 8 mmol/L Normal 5-15 [facility] Comment on above: Performed By: #### C BCA, CMP, 65235-1, PINR, 19417-8, 66639-5, 29200-3, 97237-1, THYR #### [facility] ([id number]) [address] [place] [address] 09574 AST [Catalytic activity/Vol] 22 U/L Normal 0-41 [facility] Comment on above: Performed By: #### C BCA, CMP, 00449-6, PINR, 93983-8, 41818-7, 52384-9, 20480-2, THYR #### [facility] ([id number]) [address] [place] [address] 98953 Bilirubin [Mass/Vol] 0.8 mg/dL Normal 0.3-1.2 [facility] Comment on above: Performed By: #### C BCA, CMP, 76563-2, PINR, 84289-4, 73964-7, 80751-7, 00642-2, THYR #### [facility] ([id number]) [address] [place] [address] 99177 Calcium [Mass/Vol] 10.0 mg/dL Normal 8.5-10.5 [facility] Comment on above: Performed By: #### C BCA, CMP, 27510-0, PINR, 73580-5, 83786-5, 76666-8, 26546-5, THYR #### [facility] ([id number]) [address] [place] [address] 56836 Chloride [Moles/Vol] 102 mmol/L Normal 98-109 [facility] Comment on above: Performed By: #### C BCA, CMP, 35977-5, PINR, 58692-8, 79436-6, 58222-7, 62823-0, THYR #### [facility] ([id number]) [address] [place] [address] 49991 CO2 [Moles/Vol] 26 mmol/L Normal 22-32 [facility] Comment on above: Performed By: #### C BCA, CMP, 54069-6, PINR, 34622-0, 74691-5, 21590-0, 02637-4, THYR #### [facility] ([id number]) [address] [place] [address] 45873 Creatinine [Mass/Vol] 1.07 mg/dL Normal 0.70-1.20 [facility] Comment on above: Result Comment: METH OD TRACEABLE TO IDMS STANDARD Performed By: #### C BCA, CMP, 52947-3, PINR, 97201-1, 98179-8, 86937-4, 45661-5, THYR #### [facility] ([id number]) [address] [place] [address] 00806 GFR/1.73 sq M.predicted among non-blacks MDRD (S/P/Bld) [Vol rate/Area] 88 mL/min/{1.73_m2} Normal >59 [facility] Comment on above: Result Comment: Reported eGFR is based on the CKD-EPI 2020 equation that does not use a race coefficient. Performed By: #### C BCA, CMP, 47019-2, PINR, 34103-4, 96146-6, 26636-0, 11235-3, THYR #### [facility] ([id number]) [address] [place] [address] 15877 Glucose [Mass/Vol] 94 mg/dL Normal 65-99 [facility] Comment on above: Performed By: #### C BCA, CMP, 97026-4, PINR, 77555-0, 16257-7, 55991-0, 63151-2, THYR #### [facility] ([id number]) [address] [place] [address] 04994 Potassium [Moles/Vol] 4.0 mmol/L Normal 3.5-5.0 [facility] Comment on above: Performed By: #### C BCA, CMP, 12915-6, PINR, 49366-8, 19444-5, 67568-7, 83560-1, THYR #### [facility] ([id number]) [address] [place] [address] 70081 Protein [Mass/Vol] 7.0 g/dL Normal 6.0-8.0 [facility] Comment on above: Performed By: #### C BCA, CMP, 90513-3, PINR, 60360-7, 52016-6, 11267-8, 94192-5, THYR #### [facility] ([id number]) [address] [place] [address] 34717 Sodium [Moles/Vol] 136 mmol/L Normal 134-146 [facility] Comment on above: Performed By: #### C BCA, CMP, 63194-9, PINR, 52492-6, 10302-9, 83295-4, 83981-1, THYR #### [facility] ([id number]) [address] [place] [address] 98711 Urea nitrogen [Mass/Vol] 20 mg/dL Normal 5-23 [facility] Comment on above: Performed By: #### C BCA, CMP, 95697-5, PINR, 85954-7, 39904-2, 93902-9, 93888-7, THYR #### [facility] ([id number]) [address] [place] [address] 53784 MAGNESIUMon 06-02-2023 Magnesium [Mass/Vol] 2.1 mg/dL Normal 1.8-2.6 [facility] Comment on above: Performed By: #### C BCA, CMP, 58482-7, PINR, 23085-4, 89752-1, 25325-9, 79716-9, THYR #### [facility] ([id number]) [address] [place] [address] 38150 TROPONIN Ion 06-02-2023 Troponin I.cardiac [Mass/Vol] ng/mL Normal 0.00-0.04 [facility] Comment on above: Performed By: #### C BCA, CMP, 60822-6, PINR, 62435-0, 15121-4, 25526-3, 20728-7, THYR #### [facility] ([id number]) [address] [place] [address] 09095 CBC AND AUTO DIFFon 06-01-19 24 ABSOLUTE BASOPHIL 0.1 X10E9/L Normal 0.0-0.2 [facility] Comment on above: Performed By: #### C BCA, CMP, 12326-9, PINR, 32125-8, 44133-9, 51340-7, 09451-5, THYR #### [facility] ([id number]) [address] [place] [address] 59941 ABSOLUTE NEUTROPHIL 5.1 X10E9/L Normal 1.5-6.6 [facility] Comment on above: Performed By: #### C BCA, CMP, 75894-9, PINR, 31363-6, 02712-1, 93001-7, 93662-6, THYR #### [facility] ([id number]) [address] [place] [address] 42484 Basophils/100 WBC (Bld) 0.8 % Normal [facility] Comment on above: Performed By: #### C BCA, CMP, 28002-1, PINR, 76277-0, 97589-2, 53783-4, 18229-0, THYR #### [facility] ([id number]) [address] [place] [address] 06647 Eosinophils (Bld) [#/Vol] 0.1 10*3/uL Normal 0.0-0.4 [facility] Comment on above: Performed By: #### C BCA, CMP, 75887-3, PINR, 98920-6, 31656-9, 76689-2, 70107-9, THYR #### [facility] ([id number]) [address] [place] [address] [id number] Eosinophils/100 WBC (Bld) 1.1 % Normal [facility] Comment on above: Performed By: #### C BCA, CMP, 90383-2, PINR, 52422-2, 61754-6, 64391-2, 27456-3, THYR #### [facility] ([id number]) [address] [place] [address] 29556 Erythrocyte distribution width (RBC) [Ratio] 13.0 % Normal 11.5-15.0 [facility] Comment on above: Performed By: #### C BCA, CMP, 69971-8, PINR, 51796-5, 35839-1, 00500-5, 83994-4, THYR #### [facility] ([id number]) [address] [place] [address] 21801 Hematocrit (Bld) [Volume fraction] 41.5 % Normal 39-49 [facility] Comment on above: Performed By: #### C BCA, CMP, 37494-7, PINR, 12587-8, 91724-2, 70931-5, 31167-6, THYR #### [facility] ([id number]) [address] [place] [address] 03677 Hemoglobin (Bld) [Mass/Vol] 14.6 g/dL Normal 13.0-17.0 [facility] Comment on above: Performed By: #### C BCA, CMP, 74609-7, PINR, 38451-5, 17031-9, 92624-9, 55399-9, THYR #### [facility] ([id number]) [address] [place] [address] 12583 Lymphocytes (Bld) [#/Vol] 1.7 10*3/uL Normal 1.0-3.5 [facility] Comment on above: Performed By: #### C BCA, CMP, 15658-5, PINR, 86480-7, 51335-2, 06667-2, 63137-8, THYR #### [facility] ([id number]) [address] [place] [address] 67952 Lymphocytes/100 WBC (Bld) 22.2 % Normal [facility] Comment on above: Performed By: #### C BCA, CMP, 04323-5, PINR, 50775-9, 96361-8, 37393-5, 41516-1, THYR #### [facility] ([id number]) [address] [place] [address] 92826 MCH (RBC) [Entitic mass] 30.4 pg Normal 27-34 [facility] Comment on above: Performed By: #### C BCA, CMP, 07082-4, PINR, 85462-1, 28363-5, 22089-5, 03887-7, THYR #### [facility] ([id number]) [address] [place] [address] 14715 MCHC (RBC) [Mass/Vol] 35.1 g/dL Normal 32-36 [facility] Comment on above: Performed By: #### C BCA, CMP, 39687-8, PINR, 85133-0, 88405-3, 03066-8, 60811-9, THYR #### [facility] ([id number]) [address] [place] [address] 45213 MCV (RBC) [Entitic vol] 87 fL Normal 80-100 [facility] Comment on above: Performed By: #### C BCA, CMP, 13353-7, PINR, 66055-7, 66050-9, 30191-4, 19126-1, THYR #### [facility] ([id number]) [address] [place] [address] 72937 Monocytes (Bld) [#/Vol] 0.6 10*3/uL Normal 0-0.9 [facility] Comment on above: Performed By: #### C BCA, CMP, 72882-7, PINR, 22000-1, 53038-4, 70907-6, 84934-1, THYR #### [facility] ([id number]) [address] [place] [address] 92816 Monocytes/100 WBC (Bld) 7.8 % Normal [facility] Comment on above: Performed By: #### C BCA, CMP, 55259-4, PINR, 47103-8, 16640-8, 12303-9, 92981-2, THYR #### [facility] ([id number]) [address] [place] [address] 12145 Neutrophils/100 WBC (Bld) 68.1 % Normal [facility] Comment on above: Performed By: #### C BCA, CMP, 56152-4, PINR, 03877-8, 80425-8, 50921-4, 92454-8, THYR #### [facility] ([id number]) [address] [place] [address] 43633 Platelet mean volume (Bld) [Entitic vol] 8.3 fL Normal 7-12 [facility] Comment on above: Performed By: #### C BCA, CMP, 35472-8, PINR, 23614-9, 35181-9, 61092-7, 95362-6, THYR #### [facility] ([id number]) [address] [place] [address] 26796 Platelets (Bld) [#/Vol] 207 10*3/uL Normal 150-450 [facility] Comment on above: Performed By: #### C BCA, CMP, 12796-9, PINR, 02630-8, 35244-3, 72165-9, 80576-3, THYR #### [facility] ([id number]) [address] [place] [address] 99265 RBC COUNT 4.79 X10E12/L Normal 4.10-5.70 [facility] Comment on above: Performed By: #### C BCA, CMP, 49955-4, PINR, 68547-1, 41961-3, 02818-6, 50726-5, THYR #### [facility] ([id number]) [address] [place] [address] 68649 WBC (Bld) [#/Vol] 7.5 10*3/uL Normal 4.0-11.0 [facility] Comment on above: Performed By: #### C BCA, CMP, 63972-7, PINR, 03418-9, 87916-7, 03010-8, 02724-2, THYR #### [facility] ([id number]) [address] [place] [address] 78364 COMPREHENSIVE METABOLIC PANE Nik 06-01-2023 Albumin [Mass/Vol] 5.0 g/dL Normal 3.2-5.3 [facility] Comment on above: Performed By: #### C BCA, CMP, 64312-4, PINR, 75815-9, 62525-4, 46227-7, 10720-6, THYR #### [facility] ([id number]) [address] [place] [address] 90171 ALP [Catalytic activity/Vol] 90 U/L Normal 39-130 [facility] Comment on above: Performed By: #### C BCA, CMP, 58403-5, PINR, 92476-5, 88326-0, 12471-6, 91366-4, THYR #### [facility] ([id number]) [address] [place] [address] 91988 ALT [Catalytic activity/Vol] 32 U/L Normal 0-40 [facility] Comment on above: Performed By: #### C BCA, CMP, 08994-9, PINR, 19909-9, 46147-6, 05843-2, 45557-9, THYR #### [facility] ([id number]) [address] [place] [address] [place] [address] Anion gap [Moles/Vol] 7 mmol/L Normal 5-15 [facility] Comment on above: Performed By: #### C BCA, CMP, 97171-5, PINR, 36566-0, 98770-9, 77070-6, 03855-0, THYR #### [facility] ([id number]) [address] [place] [address] 11861 AST [Catalytic activity/Vol] 27 U/L Normal 0-41 [facility] Comment on above: Performed By: #### C BCA, CMP, 87432-0, PINR, 24499-3, 50009-4, 27134-9, 71171-2, THYR #### [facility] ([id number]) [address] [place] [address] 75301 Bilirubin [Mass/Vol] 0.8 mg/dL Normal 0.3-1.2 [facility] Comment on above: Performed By: #### C BCA, CMP, 46095-2, PINR, 39045-4, 37914-9, 08164-6, 07235-8, THYR #### [facility] ([id number]) [address] [place] [address] 84705 Calcium [Mass/Vol] 10.1 mg/dL Normal 8.5-10.5 [facility] Comment on above: Performed By: #### C BCA, CMP, 54217-8, PINR, 75005-4, 45389-5, 76699-2, 72419-5, THYR #### [facility] ([id number]) [address] [place] [address] 54082 Chloride [Moles/Vol] 103 mmol/L Normal 98-109 [facility] Comment on above: Performed By: #### C BCA, CMP, 36045-9, PINR, 67515-1, 93156-6, 58556-0, 91320-5, THYR #### [facility] ([id number]) [address] [place] [address] 19542 CO2 [Moles/Vol] 24 mmol/L Normal 22-32 [facility] Comment on above: Performed By: #### C BCA, CMP, 79963-7, PINR, 43506-9, 47080-2, 81374-6, 20491-7, THYR #### [facility] ([id number]) [address] [place] [address] 11374 Creatinine [Mass/Vol] 1.18 mg/dL Normal 0.70-1.20 [facility] Comment on above: Result Comment: METH OD TRACEABLE TO IDMS STANDARD Performed By: #### C BCA, CMP, 95048-0, PINR, 18541-6, 42306-8, 60054-6, 52934-6, THYR #### [facility] ([id number]) [address] [place] [address] 57594 GFR/1.73 sq M.predicted among non-blacks MDRD (S/P/Bld) [Vol rate/Area] 78 mL/min/{1.73_m2} Normal >59 [facility] Comment on above: Result Comment: Reported eGFR is based on the CKD-EPI 2020 equation that does not use a race coefficient. Performed By: #### C BCA, CMP, 23266-0, PINR, 21256-5, 45841-8, 92763-3, 77012-6, THYR #### [facility] ([id number]) [address] [place] [address] 41384 Glucose [Mass/Vol] 86 mg/dL Normal 65-99 [facility] Comment on above: Performed By: #### C BCA, CMP, 18784-1, PINR, 63268-1, 80760-8, 80898-0, 99631-7, THYR #### [facility] ([id number]) [address] [place] [address] 61024 Potassium [Moles/Vol] 3.8 mmol/L Normal 3.5-5.0 [facility] Comment on above: Performed By: #### C BCA, CMP, 00598-9, PINR, 04605-6, 08270-4, 14556-0, 58324-0, THYR #### [facility] ([id number]) [address] [place] [address] 16031 Protein [Mass/Vol] 7.8 g/dL Normal 6.0-8.0 [facility] Comment on above: Performed By: #### C BCA, CMP, 80229-4, PINR, 97844-0, 81513-4, 32755-7, 30105-9, THYR #### [facility] ([id number]) [address] [place] [address] 46037 Sodium [Moles/Vol] 134 mmol/L Normal 134-146 [facility] Comment on above: Performed By: #### C BCA, CMP, 76492-5, PINR, 18198-1, 00734-7, 08108-2, 07861-1, THYR #### [facility] ([id number]) [address] [place] [address] 85270 Urea nitrogen [Mass/Vol] 16 mg/dL Normal 5-23 [facility] Comment on above: Performed By: #### C BCA, CMP, 29689-7, PINR, 34987-3, 23539-3, 85568-6, 04626-3, THYR #### [facility] ([id number]) [address] [place] [address] 98998 DRUG SCREEN, URINEon 024 AMPHETAMINE/METHAM P Negative Normal NEG [facility] Comment on above: Result Comment: AMPH /METH screening cut off = 1000 ng/mL Performed By: #### C BCA, CMP, 01599-0, PINR, 71569-8, 26893-2, 28220-8, 63092-1, THYR #### [facility] ([id number]) [address] [place] [address] [place] [address] BARBITURATES Negative Normal NEG [facility] Comment on above: Result Comment: Yen iturates screening cut off value = 200 ng/mL Performed By: #### C BCA, CMP, 09940-7, PINR, 64176-1, 79691-3, 70523-5, 24191-3, THYR #### [facility] ([id number]) [address] [place] [address] 79673 BENZODIAZEPINES Negative Normal NEG [facility] Comment on above: Result Comment: Carlos odiazepines screening cut off value = 200 ng/mL Performed By: #### C BCA, CMP, 37584-8, PINR, 16119-7, 07927-2, 28560-2, 14993-1, THYR #### [facility] ([id number]) [address] [place] [address] 64030 CANNABINOIDS Negative Normal NEG [facility] Comment on above: Result Comment: Shirlene abinoids/THC screening cut off value = 50 ng/mL Performed By: #### C BCA, CMP, 03318-8, PINR, 45237-0, 23118-3, 98110-6, 66513-1, THYR #### [facility] ([id number]) [address] [place] [address] 13572 COCAINE METABOLITE Negative Normal NEG [facility] Comment on above: Result Comment: Coca ine screening cut off value = 300 ng/mL Performed By: #### C BCA, CMP, 39418-0, PINR, 12399-6, 98524-0, 05018-0, 38130-6, THYR #### [facility] ([id number]) [address] [place] [address] 93029 ECSTASY Negative Normal NEG [facility] Comment on above: Result Comment: Ecst asy screening cut off value = 500 ng/mL This report is intended for use in clinical monitoring or management of patients. Performed By: #### C BCA, CMP, 52088-8, PINR, 04560-2, 79588-5, 97001-1, 08241-1, THYR #### [facility] ([id number]) [address] [place] [address] 60215 METHADONE Negative Normal NEG [facility] Comment on above: Result Comment: Meth adone screening cut off value = 300 ng/mL. Performed By: #### C BCA, CMP, 78023-9, PINR, 23453-4, 09445-3, 84275-8, 58976-8, THYR #### [facility] ([id number]) [address] [place] [address] 51333 OPIATES Negative Normal NEG [facility] Comment on above: Result Comment: Opia yolande screening cut off value = 300 ng/mL NOTE: This test is used for the detection of codeine, hydrocodone (>1000 ng/mL), morphine and hydromorphone (>900 ng/mL) in urine. Performed By: #### C BCA, CMP, 52309-5, PINR, 92188-7, 49531-5, 20967-6, 14375-9, THYR #### [facility] ([id number]) [address] [place] [address] 63104 OXYCODONE Negative Normal NEG [facility] Comment on above: Result Comment: Oxyc odone screening cut off value = 300 ng/mL NOTE: This test is used for the detection of oxycodone and oxymorphone in urine. Performed By: #### C BCA, CMP, 15281-7, PINR, 32436-3, 81353-6, 83399-9, 05192-7, THYR #### [facility] ([id number]) [address] [place] [address] 25984 PHENCYCLIDINE Negative Normal NEG [facility] Comment on above: Result Comment: Phen cyclidine screening cut off value = 25 ng/mL Performed By: #### C BCA, CMP, 06750-7, PINR, 04972-7, 62903-6, 50333-9, 71545-5, THYR #### [facility] ([id number]) [address] [place] [address] 46170 Fibrin D-dimer DDU (PPP) [Ma ss/Vol]on 06-01-2023 D DIMER <150 Normal <255 [facility] Comment on above: Result Comment: Results <255 ng/mL DDU: The presence of a VTE can safely be excluded with a negative D-Dimer result and Wells score. A negative result doesn't exclude the possibility of DIC. The test be repeated along with other diagnostic tests if the patient's symptoms persist or worsen. [email or web address] Performed By: #### C BCA, CMP, 57647-9, PINR, 22856-5, 67742-4, 60164-8, 97125-3, THYR #### [facility] ([id number]) [address] [place] [address] 68277 Lead (BldV) [Mass/Vol]on LEAD, VENOUS 33.8 mcg/dL High <3.5 [facility] Comment on above: Result Comment: NOTE ADDITIONAL INFORMATION Testing performed by Inductively Coupled Plasma-Mass Spectrometry (ICP-MS). This test was developed and its performance characteristics determined by [facility] in a manner consistent with CLIA requirements. This test has not been cleared or approved by the U.S. Food and Drug Administration. Performed By: #### C MERCEDES, CMP, 03930-3, PINR, 85129-0, 92749-2, 40219-8, 87702-8, THYR #### [facility] ([id number]) [address] [place] [address] 32151 MAGNESIUMon 06-01-2023 Magnesium [Mass/Vol] 2.1 mg/dL Normal 1.8-2.6 [facility] Comment on above: Performed By: #### C MERCEDES, CMP, 53773-6, PINR, 43288-7, 21002-7, 97955-0, 89404-5, THYR #### [facility] ([id number]) [address] [place] [address] 12404 Natriuretic peptide B [Mass/ Vol]on 06-01-2023 BRN NATRIURETIC PEP <5 Normal <100.0 [facility] Comment on above: Performed By: #### C BCA, CMP, 58959-7, PINR, 71213-2, 62494-3, 94780-6, 86005-3, THYR #### [facility] ([id number]) [address] [place] [address], [place] [address] PROTIME AND INRon 06-01-2023 INR Coag (PPP) [Relative time] 1.1 {INR} Normal 0.8-1.1 [facility] Comment on above: Performed By: #### C BCA, CMP, 11712-4, PINR, 54231-7, 53821-3, 59647-2, 68509-1, THYR #### [facility] ([id number]) [address] [place] [address], [place] [address] PT Coag (PPP) [Time] 12.6 s Normal 9.8-13.2 [facility] Comment on above: Result Comment: NEW REFERENCE RANGE Performed By: #### C BCA, CMP, 16758-3, PINR, 25122-8, 38761-6, 61356-1, 28773-0, THYR #### [facility] ([id number]) [address] [place] [address], [place] [address] THYROID PROFILEon 06-01-2023 Free T4 [Mass/Vol] 0.88 ng/dL Normal 0.61-1.60 [facility] Comment on above: Performed By: #### C BCA, CMP, 40808-3, PINR, 67183-4, 85569-8, 28329-6, 78436-7, THYR #### [facility] ([id number]) [address] [place] [address], [place] [address] TSH 1.27 uIU/mL Normal 0.49-4.67 [facility] Comment on above: Performed By: #### C BCA, CMP, 05515-9, PINR, 50103-1, 73295-3, 00614-7, 45523-8, THYR #### [facility] ([id number]) [address] [place] [address] 54582 TROPONIN Ion 06-01-2023 Troponin I.cardiac [Mass/Vol] ng/mL Normal 0.00-0.04 [facility] Comment on above: Performed By: #### C BCA, CMP, 44499-9, PINR, 53240-5, 84901-7, 77769-8, 37485-3, THYR #### [facility] ([id number]) [address] [place] [address] 04275 URN MACROSCOPIC NURon 2023 BILIRUBIN FITO Negative Normal NEG [facility] Comment on above: Performed By: #### C BCA, CMP, 58072-4, PINR, 42326-0, 51190-2, 30700-2, 92555-0, THYR #### [facility] ([id number]) [address] [place] [address] [place] [address] BLOOD/HGB FITO Negative Normal NEG [facility] Comment on above: Performed By: #### C BCA, CMP, 43292-8, PINR, 93563-9, 12728-3, 48402-5, 61241-4, THYR #### [facility] ([id number]) [address] [place] [address] 55588 GLUCOSE FITO Negative Normal NEG [facility] Comment on above: Performed By: #### C BCA, CMP, 55544-1, PINR, 27641-1, 69837-6, 10916-0, 23823-1, THYR #### [facility] ([id number]) [address] [place] [address] [place] [address] KETONES FITO 40 mg/dL Abnormal NEG [facility] Comment on above: Performed By: #### C BCA, CMP, 17693-4, PINR, 38989-2, 21082-7, 33395-8, 16069-8, THYR #### [facility] ([id number]) [address] [place] [address] 56488 LEUKOCYTE ESTERASE FITO Negative Normal NEG [facility] Comment on above: Performed By: #### C BCA, CMP, 62805-2, PINR, 91510-9, 30922-3, 01820-3, 09951-8, THYR #### [facility] ([id number]) [address] [place] [address] 60000 NITRITE FITO Negative Normal NEG [facility] Comment on above: Performed By: #### C BCA, CMP, 00777-5, PINR, 86682-8, 29245-3, 85939-1, 84229-8, THYR #### [facility] ([id number]) [address] [place] [address] 69759 PH FITO 5.5 Normal 5.0-8.5 [facility] Comment on above: Performed By: #### C BCA, CMP, 32151-5, PINR, 89157-0, 56382-1, 74046-9, 47054-0, THYR #### [facility] ([id number]) [address] [place] [address] [place] [address] PROTEIN FITO Negative Normal NEG [facility] Comment on above: Performed By: #### C BCA, CMP, 84327-6, PINR, 14822-8, 12376-8, 01181-0, 03338-3, THYR #### [facility] ([id number]) [address] [place] [address] 59166 SPECIFIC GRAVITY FITO 1.025 Normal 1.003-1.035 [facility] Comment on above: Performed By: #### C BCA, CMP, 82516-1, PINR, 88955-9, 95656-6, 10227-9, 68697-3, THYR #### [facility] ([id number]) [address] [place] [address] UROBILINOGEN FITO 0.2 eu/dL Normal <1.1 [facility] Comment on above: Performed By: #### C BCA, CMP, 94113-8, PINR, 70526-7, 31631-1, 77736-8, 24993-8, THYR #### [facility] ([id number]) [address] [place] [address] 32103 XR CHEST 1 VWon 06-01-2023 XR CHEST [...] Pardo DO on 06/01/2023 3:32 PM Normal [facility] aPTT Coag (PPP) [Time]on aPTT Coag (Bld) [Time] 35 s Normal 26-37 [facility] Comment on above: Result Comment: NEW REFERENCE RANGE Performed By: #### C BCA, CMP, 65618-2, PINR, 43523-5, 38834-6, 70400-4, 31171-7, THYR #### [facility] ([id number]) [address] [place] [address] 57473 LEAD,ADULTon 09-05-2022 Lead, Blood (Adult) 45.4 ug/dL Invalid Interpretation Code 0.0-3.4 [facility] Comment on above: Result Comment: Test ing performed by Inductively coupled plasma/Mass Spectrometry. Verified by repeat analysis Analysis by inductively coupled plasma/mass spectrometry (ICP/MS) Environmental Exposure: WHO Recommendation <20.0 Occupational Exposure: OSHA Lead Std 40.0 CHAZ 30.0 . Detection Limit = 1.0 Performed By: #### L EADA #### [facility] [address] [place] [address] Dr. Rachel COLLINS,ADULTon 09-01-2022 Lead, Blood (Adult) CLOTWB Normal [facility] Comment on above: Result Comment: Test not performed. Whole blood specimen partially or completely clotted. A common cause is insufficient mixing upon collection. Testing performed by Inductively coupled plasma/Mass Spectrometry. contacted Nohelia at your facility on 09-01-2022 Environmental Exposure: WHO Recommendation <20.0 Occupational Exposure: OSHA Lead Std 40.0 CHAZ 30.0 . Detection Limit = 1.0 Performed By: #### I NSULIN #### [facility] [address] [place] [address] Dr. Rachel COLLINS,ADULTon 08-30-2022 Lead, Blood (Adult) CLOTWB Normal [facility] Comment on above: Result [...] 1.0 Performed By: #### L EADA #### [facility] [address] [place] [address] Dr. Rachel Cortez BNPon 08-29-2022 Natriuretic peptide B (Bld) [Mass/Vol] 10.0 pg/mL Normal <=450.0 [facility] Comment on above: Performed By: #### C MP, TSH, BNP #### [facility] [address] [place] [address] Dr. Rachel Cortez CBC AUTO DIFFon 08-29-2022 BASO # 0.0 103/ul Normal 0.0-0.1 [facility] Comment on above: Performed By: #### C BC #### [facility] [address] [place] [address] Dr. Rachel Coretz Basophils/100 WBC (Bld) 0.5 % Normal 0.2-2.0 [facility] Comment on above: Performed By: #### C BC #### [facility] [address] [place] [address] Dr. Rachel Cortez EO # 0.2 103/ul Normal 0.0-0.7 [facility] Comment on above: Performed By: #### C BC #### [facility] [address] [place] [address] Dr. Rachel Cortez Eosinophils/100 WBC (Bld) 2.7 % Normal 0.9-7.0 [facility] Comment on above: Performed By: #### C BC #### [facility] [address] [place] [address] Dr. Rachel Cortez Erythrocyte distribution width (RBC) [Ratio] 12.3 % Normal 11.0-15.0 [facility] Comment on above: Performed By: #### C BC #### [facility] [address] [place] [address] Dr. Rachel Cortez Hematocrit (Bld) [Volume fraction] 40.9 % Critically low 42.0-54.0 [facility] Comment on above: Performed By: #### C BC #### [facility] [address] [place] [address] Dr. Rachel Cortez Hemoglobin (Bld) [Mass/Vol] 13.9 g/dL Critically low 14.0-18.0 [facility] Comment on above: Performed By: #### C BC #### [facility] [address] [place] [address] Dr. Rachel Cortez IG # 0.02 10e3/ul Normal 0.00-0.03 [facility] Comment on above: Performed By: #### C BC #### [facility] [address] [place] [address] Dr. Rachel Cortez IG % 0.3 % Normal 0.0-0.5 [facility] Comment on above: Performed By: #### C BC #### [facility] [address] [place] [address] Dr. Rachel Cortez LYMPH # 1.6 103/ul Normal 1.2-3.8 [facility] Comment on above: Performed By: #### C BC #### [facility] [address] [address] [address] Rachel Cortez Lymphocytes/100 WBC (Bld) 21.2 % Normal 20.5-60.0 [facility] Comment on above: Performed By: #### C BC #### [facility] [address] [address] [address] Rachel Cortez MANUAL DIFF REQ NO Normal [facility] Comment on above: Performed By: #### C BC #### [facility] [address] [place] [address] Dr. Rachel Cortez MCH (RBC) [Entitic mass] 30.3 pg Normal 25.9-34.0 [facility] Comment on above: Performed By: #### C BC #### [facility] [address] [place] [address] Dr. Rachel Cortez MCHC (RBC) [Mass/Vol] 34.0 g/dL Normal 29.9-35.2 [facility] Comment on above: Performed By: #### C BC #### [facility] [address] [place] [address] Dr. Rachel Cortez MCV (RBC) [Entitic vol] 89.3 fL Normal 80.0-94.0 [facility] Comment on above: Performed By: #### C BC #### [facility] [address] [place] [address] Dr. Rachel Cortez MONO # 0.6 103/ul Normal 0.3-0.8 [facility] Comment on above: Performed By: #### C BC #### [facility] [address] [place] [address] Dr. Rachel Cortez Monocytes/100 WBC (Bld) 8.6 % Normal 1.7-12.0 [facility] Comment on above: Performed By: #### C BC #### [facility] [address] [place] [address] Dr. Rachel Cortez NEUT # 5.0 103/ul Normal 1.4-6.5 [facility] Comment on above: Performed By: #### C BC #### [facility] [address] [address] [address] Rachel Cortez Neutrophils/100 WBC (Bld) 66.7 % Normal 43.0-75.0 [facility] Comment on above: Performed By: #### C BC #### [facility] [address] [place] [address] Dr. Rachel Cortez Platelet mean volume (Bld) [Entitic vol] 10.2 fL Normal 9.5-13.5 [facility] Comment on above: Performed By: #### C BC #### [facility] [address] [place] [address] Dr. Rachel Cortez PLT 198 103/ul Normal 150-450 [facility] Comment on above: Performed By: #### C BC #### [facility] [address] [place] [address] Dr. Rachel Cortez RBC 4.58 106/ul Critically low 4.70-6.10 [facility] Comment on above: Performed By: #### C BC #### [facility] [address] [place] [address] Dr. Rachel Cortez WBC 7.5 103/ul Normal 4.0-11.0 [facility] Comment on above: Performed By: #### C BC #### [facility] [address] [place] [address] Dr. Rachel Cortez FREE T4on 08-29-2022 Free T4 [Mass/Vol] 0.84 ng/dL Normal 0.76-1.46 [facility] Comment on above: Performed By: #### I KANDIS FT4 #### [facility] [address] [place] [address] Dr. Rachel Cortez IRONon 08-29-2022 Iron [Mass/Vol] 86.0 ug/dL Normal 65.0-175.0 [facility] Comment on above: Performed By: #### Paula MARQUIS FT4 #### [facility] [address] [place] [address] Dr. Rachel Cortez PROF 14(COMP METB)on 023 Albumin [Mass/Vol] 4.0 g/dL Normal 3.4-5.0 [facility] Comment on above: Performed By: #### C MP, TSH, BNP #### [facility] [address] [address] [address] Rachel Cortez Albumin/Globulin [Mass ratio] 1.2 {ratio} Normal [facility] Comment on above: Performed By: #### C MP, TSH, BNP #### [facility] [address] [address] [address] Rachel Cortez ALP [Catalytic activity/Vol] 103 U/L Normal 46-116 [facility] Comment on above: Performed By: #### C MP, TSH, BNP #### [facility] [address] [address] [address] Rachel Cortez ALT [Catalytic activity/Vol] 39 U/L Normal 16-63 [facility] Comment on above: Performed By: #### C MP, TSH, BNP #### [facility] [address] [address] [address] Rachel Cortez Anion gap [Moles/Vol] 10.2 mmol/L Normal [facility] Comment on above: Performed By: #### C MP, TSH, BNP #### [facility] [address] [place] [address] Dr. Rachel Cortez AST [Catalytic activity/Vol] 20 U/L Normal 15-37 [facility] Comment on above: Performed By: #### C MP, TSH, BNP #### [facility] [address] [address] [address] Rachel Cortez Bilirubin [Mass/Vol] 0.3 mg/dL Normal 0.2-1.0 [facility] Comment on above: Performed By: #### C MP, TSH, BNP #### [facility] [address] [address] [address] Rachel Cortez Calcium [Mass/Vol] 9.8 mg/dL Normal 8.5-10.1 [facility] Comment on above: Performed By: #### C MP, TSH, BNP #### [facility] [address] [address] [address] Rachel Cortez Chloride [Moles/Vol] 105 mmol/L Normal 98-107 [facility] Comment on above: Performed By: #### C MP, TSH, BNP #### [facility] [address] [place] [address] Dr. Rachel Cortez CO2 [Moles/Vol] 29.9 mmol/L Normal 21.0-32.0 [facility] Comment on above: Performed By: #### C MP, TSH, BNP #### [facility] [address] [place] [address] Dr. Rachel Cortez Creatinine [Mass/Vol] 1.19 mg/dL Normal 0.70-1.30 [facility] Comment on above: Performed By: #### C MP, TSH, BNP #### [facility] [address] [place] [address] Dr. Rachel Cortez EGFR-AF GUYANESE >60 Normal >=60 [facility] Comment on above: Performed By: #### C MP, TSH, BNP #### [facility] [address] [place] [address] Dr. Rachel Cortez EGFR-NON AF GUYANESE >60 Normal >=60 [facility] Comment on above: Performed By: #### C MP, TSH, BNP #### [facility] [address] [place] [address] Dr. Rachel Cortez Globulin (S) [Mass/Vol] 3.4 g/dL Normal [facility] Comment on above: Performed By: #### C MP, TSH, BNP #### [facility] [address] [place] [address] Dr. Rachel Cortez Glucose [Mass/Vol] 105 mg/dL Normal 74-106 [facility] Comment on above: Performed By: #### C MP, TSH, BNP #### [facility] [address] [place] [address] Dr. Rachel Cortez Potassium [Moles/Vol] 4.1 mmol/L Normal 3.5-5.1 [facility] Comment on above: Performed By: #### C MP, TSH, BNP #### [facility] [address] [place] [address] Dr. Rachel Cortez Protein [Mass/Vol] 7.4 g/dL Normal 6.4-8.2 [facility] Comment on above: Performed By: #### C MP, TSH, BNP #### [facility] [address] [place] [address] Dr. Rachel Cortez Sodium [Moles/Vol] 141 mmol/L Normal 136-145 [facility] Comment on above: Performed By: #### C MP, TSH, BNP #### [facility] [address] [place] [address] Dr. Rachel Cortez Urea nitrogen [Mass/Vol] 16.0 mg/dL Normal 7.0-18.0 [facility] Comment on above: Performed By: #### C MP, TSH, BNP #### [facility] [address] [place] [address] Dr. Rachel Cortez Urea nitrogen/Creatinin e [Mass ratio] 13.4 mg/mg Normal [facility] Comment on above: Performed By: #### C MP, TSH, BNP #### [facility] [address] [place] [address] Dr. Rachel Cortez TSHon 08-29-2022 TSH 0.978 uIU/mL Normal 0.358-3.740 [facility] Comment on above: Performed By: #### I NSULIN #### [facility] [address] [place] [address] FACIAL BONES WO [...] WILFRID CAMARENA Date: 2022-08-11 18:30 Normal [facility] CT HEAD WO CONon 08-11-2022 [...] MARLYS MUNOZ Date: 2022-08-11 19:49 Normal [facility] INSULINon 05-09-2022 Insulin 9.9 uIU/mL Normal 2.6-24.9 [facility] Comment on above: Performed By: #### I NSULIN #### [facility] [address] [address] [address] Rachel Cortez CBC AUTO DIFFon 05-07-2022 BASO # 0.1 103/ul Normal 0.0-0.1 [facility] Comment on above: Performed By: #### I NSULIN #### [facility] [address] [address] [address] Rachel Cortez Basophils/100 WBC (Bld) 0.7 % Normal 0.2-2.0 [facility] Comment on above: Performed By: #### I NSULIN #### [facility] [address] [place] [address] Dr. Rachel Cortez EO # 0.0 103/ul Normal 0.0-0.7 [facility] Comment on above: Performed By: #### I NSULIN #### [facility] [address] [place] [address] Dr. Rachel Cortez Eosinophils/100 WBC (Bld) 0.1 % Critically low 0.9-7.0 [facility] Comment on above: Performed By: #### I NSULIN #### [facility] [address] [place] [address] Dr. Rachel Cortez Erythrocyte distribution width (RBC) [Ratio] 12.2 % Normal 11.0-15.0 [facility] Comment on above: Performed By: #### I NSULIN #### [facility] [address] [place] [address] Dr. Rachel Cortez Hematocrit (Bld) [Volume fraction] 41.1 % Critically low 42.0-54.0 [facility] Comment on above: Performed By: #### I NSULIN #### [facility] [address] [place] [address] Dr. Rachel Cortez Hemoglobin (Bld) [Mass/Vol] 14.1 g/dL Normal 14.0-18.0 [facility] Comment on above: Performed By: #### I NSULIN #### [facility] [address] [place] [address] Dr. Rachel Cortez IG # 0.03 10e3/ul Normal 0.00-0.03 [facility] Comment on above: Performed By: #### I NSULIN #### [facility] [address] [place] [address] Dr. Rachel Cortez IG % 0.4 % Normal 0.0-0.5 [facility] Comment on above: Performed By: #### I NSULIN #### [facility] [address] [place] [address] Dr. Rachel Cortez LYMPH # 2.3 103/ul Normal 1.2-3.8 [facility] Comment on above: Performed By: #### I NSULIN #### [facility] [address] [address] [address] Rachel Cortez Lymphocytes/100 WBC (Bld) 30.8 % Normal 20.5-60.0 [facility] Comment on above: Performed By: #### I NSULIN #### [facility] [address] [address] [address] Rachel Cortez MANUAL DIFF REQ NO Normal [facility] Comment on above: Performed By: #### I NSULIN #### [facility] [address] [place] [address] Dr. Rachel Cortez MCH (RBC) [Entitic mass] 29.9 pg Normal 25.9-34.0 [facility] Comment on above: Performed By: #### I NSULIN #### [facility] [address] [place] [address] Dr. Rachel Cortez MCHC (RBC) [Mass/Vol] 34.3 g/dL Normal 29.9-35.2 [facility] Comment on above: Performed By: #### I NSULIN #### [facility] [address] [place] [address] Dr. Rachel Cortez MCV (RBC) [Entitic vol] 87.3 fL Normal 80.0-94.0 [facility] Comment on above: Performed By: #### I NSULIN #### [facility] [address] [place] [address] Dr. Rachel Cortez MONO # 0.7 103/ul Normal 0.3-0.8 [facility] Comment on above: Performed By: #### I NSULIN #### [facility] [address] [place] [address] Dr. Rachel Cortez Monocytes/100 WBC (Bld) 8.9 % Normal 1.7-12.0 [facility] Comment on above: Performed By: #### I NSULIN #### [facility] [address] [place] [address] Dr. Rachel Cortez NEUT # 4.3 103/ul Normal 1.4-6.5 [facility] Comment on above: Performed By: #### I NSULIN #### [facility] [address] [address] [address] Rachel Cortez Neutrophils/100 WBC (Bld) 59.1 % Normal 43.0-75.0 [facility] Comment on above: Performed By: #### I NSULIN #### [facility] [address] [address] [address] Rachel Cortez Platelet mean volume (Bld) [Entitic vol] 9.9 fL Normal 9.5-13.5 [facility] Comment on above: Performed By: #### I NSULIN #### [facility] [address] [address] [address] Rachel Cortez PLT 184 103/ul Normal 150-450 [facility] Comment on above: Performed By: #### I NSULIN #### [facility] [address] [place] [address] Dr. Rachel Cortez RBC 4.71 106/ul Normal 4.70-6.10 [facility] Comment on above: Performed By: #### I NSULIN #### [facility] [address] [place] [address] Dr. Rachel Cortez WBC 7.3 103/ul Normal 4.0-11.0 [facility] Comment on above: Performed By: #### I NSULIN #### [facility] [address] [place] [address] Dr. Rachel Cortez CULTURE URINEon 05-07-2022 CULTURE URINE Culture Observations : LIGHT GROWTH OF MIXED SKIN NILES. NO POTENTIAL PATHOGENS SEEN. Normal [facility] Comment on above: Performed By: #### I NSULIN #### [facility] [address] [place] [address] Dr. Rachel Cortez FREE THYROXINE INDEX T7on FTI 2.07 Normal 1.30-4.50 [facility] Comment on above: Performed By: #### I NSULIN #### [facility] [address] [place] [address] Dr. Rachel Cortez T3U 35.0 % Normal 33.0-40.0 [facility] Comment on above: Performed By: #### I NSULIN #### [facility] [address] [address] [address] Rachel Cortez T4 [Mass/Vol] 5.90 ug/dL Normal 4.50-12.10 [facility] Comment on above: Performed By: #### I NSULIN #### [facility] [address] [address] [address] Rachel Cortez GLYCOHEMOGLOBIN A1Con 2022 ADA RECOMMENDATION SEE BELOW Normal [facility] Comment on above: Result Comment: ADA RECOMMENDED LIMIT 4.0 - 6.0 ADA THERAPEUTIC TARGET < 7.0 ACTION SUGGESTED > 7.0 Performed By: #### A 1C #### [facility] [address] [address] [address] Rachel Cortez Glucose [Mass/Vol] 100 mg/dL Normal [facility] Comment on above: Performed By: #### A 1C #### [facility] [address] [place] [address] Dr. Rachel Cortez HbA1c (Bld) [Mass fraction] 5.1 % Normal 4.5-6.2 [facility] Comment on above: Performed By: #### A 1C #### [facility] [address] [address] [address] Rachel Cortez IRONon 05-07-2022 Iron [Mass/Vol] 104.0 ug/dL Normal 65.0-175.0 [facility] Comment on above: Performed By: #### I NSULIN #### [facility] [address] [address] [address] Rachel Cortez LIPID PROFILEon 05-07-2022 CHOL-HDL RATIO NORM SEE BELOW Normal [facility] Comment on above: Result Comment: 3.3 - 4.4 LOW RISK 4.4 - 7.1 AVERAGE RISK 7.1 - 11.0 MODERATE RISK >11.0 HIGH RISK Performed By: #### C MP, LIPID #### [facility] [address] [place] [address] Dr. Rachel Cortez Cholesterol [Mass/Vol] 147 mg/dL Normal <=200 [facility] Comment on above: Performed By: #### C MP, LIPID #### [facility] [address] [address] [address] Rachel Cortez Cholesterol in HDL [Mass/Vol] 56 mg/dL Normal 40-60 [facility] Comment on above: Performed By: #### C MP, LIPID #### [facility] [address] [id number] Rachel Cortez Cholesterol in LDL [Mass/Vol] 77.8 mg/dL Normal [facility] Comment on above: Performed By: #### C MP, LIPID #### [facility] [address] [address] [address] Rachel Cortez Cholesterol.total/ Cholesterol in HDL [Mass ratio] 2.6 {ratio} Normal [facility] Comment on above: Performed By: #### C MP, LIPID #### [facility] [address] [place] [address] Dr. Rachel Cortez HDL NORMAL > or = 60 mg/dl - LO W CARDIOVASCULAR RISK <40 mg/dl - HIGH CARDIOVASCULAR RISK Normal [facility] Comment on above: Performed By: #### C MP, LIPID #### [facility] [address] [place] [address] Dr. Rachel Cortez LDL CALC NORMAL SEE BELOW Normal [facility] Comment on above: Result Comment: <100 mg/dl OPTIMAL 100 - 129 mg/dl NEAR OR ABOVE OPTIMAL 130 - 159 mg/dl BORDERLINE HIGH 160 - 189 mg/dl HIGH >190 mg/dl VERY HIGH Performed By: #### C MP, LIPID #### [facility] [address] [address] [address] Rachel Cortez Triglyceride [Mass/Vol] 66 mg/dL Normal <=150 [facility] Comment on above: Performed By: #### C MP, LIPID #### [facility] [address] [address] [address] Rachel Cortez VLDL CALC 13.2 mg/dL Normal [facility] Comment on above: Performed By: #### C MP, LIPID #### [facility] [address] [address] [address] Rachel Cortez PROF 14(COMP METB)on 023 Albumin [Mass/Vol] 4.0 g/dL Normal 3.4-5.0 [facility] Comment on above: Performed By: #### C MP, LIPID #### [facility] [address] [place] [address] Dr. Rachel Cortez Albumin/Globulin [Mass ratio] 1.3 {ratio} Normal [facility] Comment on above: Performed By: #### C MP, LIPID #### [facility] [address] [place] [address] Dr. Rachel Cortez ALP [Catalytic activity/Vol] 86 U/L Normal 46-116 [facility] Comment on above: Performed By: #### C MP, LIPID #### [facility] [address] [place] [address] Dr. Rachel Cortez ALT [Catalytic activity/Vol] 35 U/L Normal 16-63 [facility] Comment on above: Performed By: #### C MP, LIPID #### [facility] [address] [place] [address] Dr. Rachel Cortez Anion gap [Moles/Vol] 9.9 mmol/L Normal [facility] Comment on above: Performed By: #### C MP, LIPID #### [facility] [address] [place] [address] Dr. Rachel Cortez AST [Catalytic activity/Vol] 22 U/L Normal 15-37 [facility] Comment on above: Performed By: #### C MP, LIPID #### [facility] [address] [place] [address] Dr. Rachel Cortez Bilirubin [Mass/Vol] 0.4 mg/dL Normal 0.2-1.0 [facility] Comment on above: Performed By: #### C MP, LIPID #### [facility] [address] [place] [address] Dr. Rachel Cortez Calcium [Mass/Vol] 10.1 mg/dL Normal 8.5-10.1 [facility] Comment on above: Performed By: #### C MP, LIPID #### [facility] [address] [place] [address] Dr. Rachel Cortez Chloride [Moles/Vol] 107 mmol/L Normal 98-107 [facility] Comment on above: Performed By: #### C MP, LIPID #### [facility] [address] [address] [address] Rachel Cortez CO2 [Moles/Vol] 30.0 mmol/L Normal 21.0-32.0 [facility] Comment on above: Performed By: #### C MP, LIPID #### [facility] [address] [address] [address] Rachel Cortez Creatinine [Mass/Vol] 1.16 mg/dL Normal 0.70-1.30 [facility] Comment on above: Performed By: #### C MP, LIPID #### [facility] [address] [place] [address] Dr. Rachel Cortez EGFR-AF GUYANESE >60 Normal >=60 [facility] Comment on above: Performed By: #### C MP, LIPID #### [facility] [address] [address] [address] Rachel Cortez EGFR-NON AF GUYANESE >60 Normal >=60 [facility] Comment on above: Performed By: #### C MP, LIPID #### [facility] [address] [address] [address] Rachel Cortez Globulin (S) [Mass/Vol] 3.0 g/dL Normal [facility] Comment on above: Performed By: #### C MP, LIPID #### [facility] [address] [address] [address] Rachel Cortez Glucose [Mass/Vol] 88 mg/dL Normal 74-106 [facility] Comment on above: Performed By: #### C MP, LIPID #### [facility] [address] [address] [address] Rachel Cortez Potassium [Moles/Vol] 3.9 mmol/L Normal 3.5-5.1 [facility] Comment on above: Performed By: #### C MP, LIPID #### [facility] [address] [address] [address] Rachel Cortez Protein [Mass/Vol] 7.0 g/dL Normal 6.4-8.2 [facility] Comment on above: Performed By: #### C MP, LIPID #### [facility] [address] [place] [address] Dr. Rachel Cortez Sodium [Moles/Vol] 143 mmol/L Normal 136-145 [facility] Comment on above: Performed By: #### C MP, LIPID #### [facility] [address] [place] [address] Dr. Rachel Cortez Urea nitrogen [Mass/Vol] 16.0 mg/dL Normal 7.0-18.0 [facility] Comment on above: Performed By: #### C MP, LIPID #### [facility] [address] [place] [address] Dr. Rachel Cortez Urea nitrogen/Creatinin e [Mass ratio] 13.8 mg/mg Normal [facility] Comment on above: Performed By: #### C MP, LIPID #### [facility] [address] [place] [address] Dr. Rachel Cortez TSHon 05-07-2022 TSH 2.417 uIU/mL Normal 0.358-3.740 [facility] Comment on above: Performed By: #### I NSULIN #### [facility] [address] [place] [address] Dr. Rachel Cortez UA RANDOM W/MICROSCOPICon BACTERIA NONE SEEN Normal NONE SEEN [facility] Comment on above: Performed By: #### I NSULIN #### [facility] [address] [place] [address] Dr. Rachel Cortez Bilirubin Ql (U) Negative Normal NEGATIVE [facility] Comment on above: Performed By: #### I NSULIN #### [facility] [address] [place] [address] Dr. Rachel Cortez CAST NONE SEEN Normal NONE SEEN [facility] Comment on above: Performed By: #### I NSULIN #### [facility] [address] [place] [address] Dr. Rachel Cortez Clarity (U) CLEAR Normal CLEAR [facility] Comment on above: Performed By: #### I NSULIN #### [facility] [address] [address] [address] Rachel Cortez Color (U) YELLOW Normal YELLOW [facility] Comment on above: Performed By: #### I NSULIN #### [facility] [address] [place] [address] Dr. Rachel Cortez Crystals LM Nom (Urine sed) NONE SEEN Normal NONE SEEN [facility] Comment on above: Performed By: #### I NSULIN #### [facility] [address] [place] [address] Dr. Rachel Cortez Epithelial cells LM Ql (Urine sed) NONE SEEN Normal NONE SEEN /RARE [facility] Comment on above: Performed By: #### I NSULIN #### [facility] [address] [place] [address] Dr. Rachel Cortez Glucose Ql (U) Negative Normal NEGATIVE [facility] Comment on above: Performed By: #### I NSULIN #### [facility] [address] [place] [address] Dr. Rachel Cortez Hemoglobin Ql (U) Negative Normal NEGATIVE [facility] Comment on above: Performed By: #### I NSULIN #### [facility] [address] [place] [address] Dr. Rachel Cortez Ketones Ql (U) Negative Normal NEGATIVE [facility] Comment on above: Performed By: #### I NSULIN #### [facility] [address] [place] [address] Dr. Rachel Cortez LEUKOCYTES Negative Normal NEGATIVE [facility] Comment on above: Performed By: #### I NSULIN #### [facility] [address] [place] [address] Dr. Rachel Cortez MUCOUS MODERATE Abnormal NONE SEEN [facility] Comment on above: Performed By: #### I NSULIN #### [facility] [address] [place] [address] Dr. Rachel Cortez Nitrite Ql (U) Negative Normal NEGATIVE [facility] Comment on above: Performed By: #### I NSULIN #### [facility] [address] [place] [address] Dr. Rachel Cortez pH (U) 6.0 [pH] Normal 5-9 [facility] Comment on above: Performed By: #### I NSULIN #### [facility] [address] [address] [address] Rachel Cortez RBC NONE SEEN Abnormal 0-2 [facility] Comment on above: Performed By: #### I NSULIN #### [facility] [address] [address] [address] Rachel Cortez SPEC GRAVITY 1.030 Abnormal 1.005-<=1.0 25 [facility] Comment on above: Performed By: #### I NSULIN #### [facility] [address] [place] [address] Dr. Rachel Cortez UA PROTEIN Negative Normal NEGATIVE/ TRACE [facility] Comment on above: Performed By: #### I NSULIN #### [facility] [address] [place] [address] Dr. Rachel Cortez Urobilinogen Qn (U) 1.0 {Colby'U}/dL Normal 0.2 - 1.0 [facility] Comment on above: Performed By: #### I NSULIN #### [facility] [address] [place] [address] Dr. Rachel Cortez WBC NONE SEEN Normal NONE SEEN [facility] Comment on above: Performed By: #### I NSULIN #### [facility] [address] [place] [address] Dr. Rachel Cortez XR LSPINE MIN 4 [...] by: MARINA MAIN Date: 2022-05-06 16:40 Normal [facility] Vital Signs Date Time Vital Sign Value Performing Clinician Facility 02-26-2024 16:31-0500 Diastolic blood pressure 93 mm[Hg] Kim Sarmini [facility] 02-26-2024 16:31-0500 Heart rate 65 /min Kim Sarmini [facility] 02-26-2024 16:31-0500 Mean blood pressure 104 mm[Hg] Kim Sarmini [facility] 02-26-2024 16:31-0500 Respiratory rate 16 /min Kim Sarmini [facility] 02-26-2024 16:31-0500 SaO2% (BldA) [Mass fraction] 100 % Kim Sarmini [facility] 02-26-2024 16:31-0500 Systolic blood pressure 126 mm[Hg] Kim Sarmini [facility] 02-26-2024 16:16-0500 Body temperature 98.24 [degF] Kim Sarmini [facility] 02-26-2024 16:16-0500 Diastolic blood pressure 78 mm[Hg] Kim Sarmini [facility] 02-26-2024 16:16-0500 Heart rate 59 /min Kim Sarmini [facility] 02-26-2024 16:16-0500 Mean blood pressure 85 mm[Hg] Kim Sarmini [facility] 02-26-2024 16:16-0500 Respiratory rate 18 /min Kim Sarmini [facility] 02-26-2024 16:16-0500 SaO2% (BldA) [Mass fraction] 99 % Kim Sarmini [facility] 02-26-2024 16:16-0500 Systolic blood pressure 98 mm[Hg] Kim Sarmini [facility] 02-26-2024 16:10-0500 Diastolic blood pressure 63 mm[Hg] Kim Sarmini [facility] 02-26-2024 16:10-0500 Heart rate 56 /min Kim Sarmini [facility] 02-26-2024 16:10-0500 Respiratory rate 18 /min Kim Sarmini [facility] 02-26-2024 16:10-0500 SaO2% (BldA) [Mass fraction] 99 % Kim Sarmini [facility] 02-26-2024 16:10-0500 Systolic blood pressure 102 mm[Hg] Kim Sarmini [facility] 02-26-2024 16:05-0500 Respiratory rate 18 /min Kim Sarmini [facility] 02-26-2024 13:57-0500 Blood Pressure Location Kim Sarmini [facility] 02-26-2024 13:57-0500 Body temperature 98.24 [degF] Kim Sarmini [facility] 02-26-2024 13:57-0500 Respiratory rate 16 /min Kim Sarmini [facility] 02-01-2024 14:42-0400 Blood Pressure Location Kim Sarmini [facility] 02-01-2024 14:42-0400 Diastolic blood pressure 78 mm[Hg] Kim Sarmini [facility] 02-01-2024 14:42-0400 Heart rate 80 /min Kim Sarmini [facility] 02-01-2024 14:42-0400 Respiratory rate 18 /min Kim Sarmini [facility] 02-01-2024 14:42-0400 Systolic blood pressure 108 mm[Hg] Kim Sarmini [facility] 08-02-2023 15:48-0400 Body height 177.8 cm [...] Facility Start: 07-31-2024 ambulatory Kim Talal Sarmini Facility:[facility] Start: 05-13-2024 ambulatory Kim Talal Sarmini Facility:[facility] Start: 03-11-2024 End: 03-11-2024 ambulatory Kim Talal Sarmini Facility:[facility] Start: 03-11-2024 End: 03-11-2024 Patient encounter procedure Kim Talal Sarmini [facility] Start: 02-26-2024 End: 02-26-2024 ambulatory Kim Talal Sarmini [facility] Start: 02-26-2024 End: 02-26-2024 Patient encounter procedure Kim Talal Sarmini [facility] Start: 02-09-2024 End: 02-09-2024 Documentation 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 [facility] Start: 02-08-2024 End: 02-08-2024 Documentation 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 [facility] Comment on above: Lead toxicity, accid ental or unintentional, initial encounter (Primary Dx) Start: 02-01-2024 End: 02-01-2024 ambulatory Kim Talal Sarmini Facility:[facility] Start: 02-01-2024 End: 02-01-2024 Patient encounter procedure Kim Talal Sarmini [facility] Start: 01-05-2024 ambulatory Kim Sarmini Facili ty:[facility] Start: 01-02-2024 ambulatory Kim Sarmini Facili ty:[facility] Start: 12-18-2023 End: 12-19-2023 ambulatory BERNARDO [facility] Start: 08-10-2023 End: 08-10-2023 ambulatory JI SCOTTY Facility:[facility] Start: 08-10-2023 End: 08-10-2023 ambulatory Jean Ley PT Work Phone: Physical Therapy Comment on above: Dizziness Start: 08-08-2023 End: 08-08-2023 ambulatory JAMAR STOCK [facility] Start: 08-04-2023 Telephone encounter Ji Magdaleno Neu[facility] Comment on above: Workers comp Start: 08-03-2023 End: 08-03-2023 ambulatory JI [facility] Facility:[facility] Start: 08-03-2023 End: 08-03-2023 Subsequent hospital visit by physician [facility] (1.5t) Work Phone: Radiology Comment on above: Worsening headaches [R51.9] Start: 08-02-2023 End: 08-02-2023 ambulatory JI FAJARDO Facility:[facility] Start: 08-02-2023 End: 08-02-2023 Office outpatient new 45 minutes Ji Fajardo MD Work Phone: Neurology Headache [facility] Comment on above: Worsening headaches (Primary Dx); Dizziness; Toxic effect of lead, accidental or unintentional, initial encounter Start: 08-02-2023 Telephone encounter Ji Magdaleno [facility] Start: 08-01-2023 ambulatory Digna Chavez RN [facility] Start: 08-01-2023 Patient encounter procedure 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 Comment on above: Referral Request Start: 06-21-2023 End: 06-21-2023 ambulatory OLLIE PITT [facility] Start: 06-20-2023 End: 06-20-2023 ambulatory INDU VOGT [facility] Start: 06-02-2023 End: 06-03-2023 ambulatory JOHN MEEKS [facility] Start: 06-01-2023 End: 06-03-2023 Emergency department patient visit MAINE FERGUSON [facility] Start: 06-01-2023 End: 06-02-2023 ambulatory IRENA JEFFERY [facility] Start: 09-01-2022 End: 09-02-[address] [...] on above: Performed By: #### LEADA #### [facility] [address] [place] [address] Dr. Rachel Cortez Plan of Treatment Date Care Activity Detail Author Start: 06-02-2026 Diabetes Screening Diabetes Screenin g [facility] Start: 06-02-2024 Adult BMI Screening Adult BMI Screen ing [facility] Start: 06-01-2024 Tobacco Screening Tobacco Screening [facility] Start: 12-24-2023 Covid-19 Vaccine ( season) Covid-19 Vaccine ( season) [facility] Start: 12-24-2023 Influenza vaccination [facility] Start: 11-08-2023 End: 11-08-2023 Patient encounter procedure 11/08/2023 11:00 AM EDT Office Visit Neurology [address] [place] [address] Gina Dooley, CONCHE LOADER AND UNLOADER.GOVERNMENT SERVICES PROFESSIONAL [address] [place] [address] (work) Neurology Start: 07-29-2023 Diabetes Screening Diabetes Screenin g [facility] Start: 07-29-2023 Screening for malign ant neoplasm of colon [facility] Start: 04-24-2023 Behavioral Health Screening Behavioral Health Screening [facility] Start: 12-23-2022 Covid-19 Vaccine ( season) Covid-19 Vaccine ( season) [facility] Start: 2013 Lipid panel Lipid Screening [facility] Start: 1997 DTaP,Tdap and Td Vac cines (1 - Tdap) DTaP,Tdap and Td Vaccines (1 - Tdap) [facility] Start: 1997 Hepatitis B Vaccine (1 of 3 - 19+ 3-dose series) Hepatitis B Vaccine (1 of 3 - 19+ 3-dose series) [facility] Start: 1997 Urine microalbumin profile DTaP,Tdap,Td Vaccine (1 - Tdap) [facility] Start: 1996 Anxiety Screening Anxiety Screening [facility] Start: 1996 Depression Screening Depression Scre ing [facility] Start: 1996 Hepatitis C screening Hepatitis C Sc reening [facility] Start: 1996 HIV screening HIV Screening [facility] Start: 1990 Depression Screening Depression Scre [facility] Payers Date Payer Category Payer Unknown [id number] 2022 Unknown 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 2020 Self-pay 1978 Unknown [id number]. 593 1978 Unknown [id number] 2.16.840.1.164673.3.579.2. 593 1978 Unknown [id number] 2.16.840.1.005873.3.579.2. 593 1978 Unknown [id number] 2.16.840.1.608248.3.579.2. 593 1978 Unknown [id number] 2.16.840.1.825650.3.579.2. 593 1978 Unknown [id number] 2.16.840.1.764978.3.579.2. 593 1978 Unknown [id number] 2.16.840.1.471546.3.579.2. 1286 1978 Unknown [id number] 2.16.840.1.733484.3.579.2. 128 1978 Unknown [id number] 2.16.840.1.222972.3.579.2. 1286 1978 Unknown [id number] 2.16.840.1.445076.3.579.2. 727 1978 Unknown [id number] 2.16.840.1.477530.3.579.2. 727 1978 Unknown [id number] 2.16.840.1.677374.3.579.2. 727 1978 Unknown [id number] 2.16.840.1.115457.3.579.2. 727 1978 Unknown [id number] 2.16.840.1.431881.3.579.2. 727 1978 Unknown [id number] 2.16.840.1.077122.3.579.2. 727 1959 Unknown [id number] Social History Date Type Detail Facility Tobacco smoking stat us ARIS Tobacco smoking consumption unknown [facility] Start: 1980 Sex Assigned At Not on file [facility] Start: 10-03-2018 End: 08-02-2023 Gender identity Not on file [facility] Start: 06-01-2023 End: 08-02-2023 Tobacco smoking status NHIS Never smoked tobacco [facility] Start: 06-01-2023 End: 08-02-2023 Tobacco use and exposure Smokeless tobacco non-user [facility] Start: 10-03-2018 End: 08-02-2023 History of Social function [facility] National Score (1-100), lower number is lower risk 73 [facility] Start: 06-01-2023 Alcoholic beverage intake Ex-drinker (finding) [facility] Start: 11-27-2014 Sex Male (finding) [facility] Goals Date Patient Goal Desired Activity /State Personal health goal Comment on above: Formatting of this n ote might be different from the original. Evaluation of progress towards goal: awaiting test results Functional Status Date Assessment Result Facility 02-26-2024 Functional Status N/A [facility] 02-01-2024 Functional Status N/A [facility] Clinical Notes 06-20-2023 to [...] reduce GERD symptoms. Medicines. These may include: ?Eexp-meq-achircx antacids. ?Medicines that make your stomach empty [...] may include: ?Fatty foods, like fried foods. ?[place]ter fruits, like oranges or lemon. ?Other foods [...] Do not drink alcohol. General instructions Take ihbn-zzo-znyrxqs and prescription medicines only as told by [...] provider. Document Revised: 06/07/2022 Document Reviewed: 06/07/2022 [employer] Patient Education 2023 [email or web address]. 02/26/2024 16:20:33 Gastritis, Adult, Zghj-ff-Gvks Gastritis, Adult Gastritis is irritation and swelling [...] Follow these instructions at home: Medicines Take zqlr-nya-ynlmlqw and prescription medicines only as told by [...] provider. Document Revised: 08/14/2021 Document Reviewed: 08/14/2021 [employer] Patient Education 2023 [employer] 02/26/2024 16:20:32 Endoscopy, Care After Procedure [facility] Endoscopy Care After Procedure Please read the [...] blood. Document Released: 11/22/2004 Document Re-Released: 10/02/2006 [facility] Patient Information [employer]. 02/26/2024 16:20:30 Hemorrhoids, Xxmv-wr-Feoz Hemorrhoids Hemorrhoids are swollen veins that may [...] Follow these instructions at home: Medicines Take bfwt-wzz-qkdvdxv and prescription medicines only as told by [...] provider. Document Revised: 12/21/2022 Document Reviewed: 12/21/2022 [employer] Patient Education 2023 [email or web address]. 02/26/2024 16:20:27 Colon Polyps Colon Polyps Colon [...] hard liquor (44 mL). General instructions Take kkih-rth-ukxbzyt and prescription medicines only as told by [...] provider. Document Revised: 07/29/2020 Document Reviewed: 07/29/2020 [employer] Patient Education 2023 [email or web address]. 02/26/2024 16:20:26 Colonoscopy, Care After Surgery Salam [...] severe or gets worse throughout the day. [facility] 02-26-2024 Note Progress Note-Physic moncho Patient: REY BAXTER MRN: [id number] Age: 43 years Sex: Male : 1980 Associated Diagnoses: None Author: Malachi Garcia MD Postoperative Information Postoperative disposition: Postoperative disposition: To PACU. Optimetrix number: Optimetrix number [id number]. Anesthetic utilized: General. Health Status Allergies: Allergic [...] when meets criteria ( To home ). 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 [facility] Comment on above: Result Comment: [...] Document Re-Released: 10/02/2006 ExitCare??? Patient Information ???2009 [employer]. Colonoscopy Care After Surgery Please read the [...] with a weaknes (more content not included)... [facility] 02-26-2024 Note Endoscopic Procedure Report - [...] day(s), # 60 cap(s), Refills(s) 3, [facility]acy: [facility], 178, cm, 02/01/24 14:47:00 EDT, Height/Length [...] Complications: none. Nyasia (more content not included)... [facility] Comment on above: Result Comment: Elec tronically Signed By: Elías ROTH, Julio Pond\.margarito\Date and Time Signed: 02/26/24 16:16 EST Other Comment: Cynthia johnson Attachment - attachment storage system not supported [id number] Can be viewed in source system Missing Attachment - attachment storage system not supported [id number] Can be viewed in source system Missing Attachment - attachment storage system not supported [id number] Can be viewed in source system Missing Attachment - attachment storage system not supported [id number] Can be viewed in source system Missing Attachment - attachment storage system not supported [id number] Can be viewed in source system Missing Attachment - attachment storage system not supported [id number] Can be viewed in source system Missing Attachment - attachment storage system not supported [id number] Can be viewed in source system 02-26-2024 [...] in GI clinic in 1-2 after discharge [facility] Comment on above: Result Comment: Elec tronically Signed By: Elías ROTH, Julio Pond\.br\Date and Time Signed: 02/26/24 15:56 EST Other Comment: Cynthia johnson Attachment - attachment storage system not supported [id number] Can be viewed in source system Missing Attachment - attachment storage system not supported [id number] Can be viewed in source system Missing Attachment - attachment storage system not supported [id number] Can be viewed in source system Missing Attachment - attachment storage system not supported 4265229 Can be viewed in source system Missing Attachment - attachment storage system not supported [id number] Can be viewed in source system Missing Attachment - attachment storage system not supported [id number] Can be viewed in source system Missing Attachment - attachment storage system not supported [id number] Can be viewed in source system 02-26-2024 [...] day(s), # 60 cap(s), Refills(s) 3, Pharmacy: [facility] 178, cm, 02/01/24 14:47:00 EDT, Height/Length [...] All Problems Atrial fibrillation / SNOMED CT 34958238 / Confirmed Acute cystitis / SNOMED CT 451493389 / Confirmed Gastritis / SNOMED CT 1749907 / Confirmed Gastroenteritis / SNOMED CT 80253677 / Confirmed Gastroesophageal reflux disease / SNOMED CT 657548439 / Confirmed Blood lead level above reference range / SNOMED CT 4248479382 / Confirmed Left lower quadrant pain / SNOMED CT 950460160 / Confirmed Inguinal lymphadenopathy / SNOMED CT 882275 / Confirmed Obstructive sleep apnea syndrome / SNOMED CT 052871094 / Confirmed Osteoarthritis of knee / SNOMED CT 762654498 / Confirmed Lumbar radiculopathy / SNOMED CT 752690216 / Confirmed Paroxysmal atrial fibrillation / SNOMED CT 729871547 / Confirmed Ventricular bigeminy / SNOMED CT 72368250 / Confirmed Urinary incontinence / SNOMED CT 5026123506 / Confirmed Right upper quadrant pain / SNOMED CT 671539536 / Confirmed Pleurisy / SNOMED CT 439758087 / Confirmed Intussusception of small bowel / SNOMED CT 4609931319 / Confirmed Screen for colon cancer / SNOMED CT 087939071 / Confirmed Histories Past Medical History: No [...] Substance Abuse 02/01/20 (more content not included)... [facility] Comment on above: Result Comment: Elec tronically Signed By: Julio Mckinley MD\.br\Date and Time Signed: 02/26/24 15:50 EST 02-26-2024 Evaluation + Plan note Extrac mary from: Title:ANES Post-operative Note---General Author: Malachi Garcia MD Date:02/26/24 Plan Transfer/Discharge: Transfer/Discharge Discharge when meets criteria ( To home ). Extracted from: Title:ANES Pre-operative Note 2022 Author:Malachi Mcclain Date:02/26/24 Plan [place] [employer] Anesthesiologists (ASA) physical status classification: Class III. Anesthetic Preoperative Plan: Anesthesia General. Extracted from: Title:1Preop H&P Author:Julio Mckinley MD Date:02/26/24 Impression and Plan Impression: gerd, anemia, screening Plan: -EGD and Colonoscopy Future Appointments Appointment Date:03/11/2024 09:30:00 AM Scheduled Provider:Juilo Mckinley MD Location[facility] App[facility]ment Type:[facility] Follow Up [facility] 10-18-2024 History of Present illness Narrative* Magda Benitez LPN - 02/09/2024 9:40 AM EDT LVM for Fara Kim at [facility] to notify that office is not [facility] certified and can not accept pt. Left return call back number if any questions or concerns arise. [facility] History of Present illness Narrative* Magda Benitez LPN - 02/08/2024 9:49 AM EDT Received referral for Dr. Mart from [facility]. Order placed in system and referral scanned into chart. Note written in referral, staff needs to check if Dr. Mart is [facility] certified and if so referral office needs to place a C9. Magda BELLE [facility] NoteUT Electrophysiology Consult Note Reason for visit: afib, chest pain , palpitations HPI: Rey Baxter is a 43 y.o. year old with past medical history of Lumbar radiculopathy, GERD, HERIBERTO, fatigue, paroxysmal A-fib,, lead toxicity. Patient was referred to our clinic for [facility]fib [facility] [...] toxicity Patient was referred to [facility] [place] but it seems as though no one [...] Murmur: not heard Extrem (more content not included)...[facility] 08-10-2023 NoteHNO ID: [id number] Author: JEAN LEY PT Service: ? Author [...] Planned: (4) Planned Treatment Interventions: Neuromuscular re-education (28680), Manual therapy (34710), Therapeutic activities (97768), Self-fdc management (15531), Therapeutic exercise (10689), Patient/Family/Caregiver Education PLAN FOR NEXT VISIT: Patient [...] Gait and vertical head (more content not included)...[facility] 08-10-2023 History of Present illness Narrative* Jean Ley, PT - 08/10/2023 10:06 AM EDT Program_ID:[id number] Access Code: [email or web address] URL: [email or web address] Date: 08-10-2023 Prepared By: Jean Ley Program [...] Planned: (4) Planned Treatment Interventions: Neuromuscular re-education (58326), Manual therapy (63057), Therapeutic activities (99448), Self-fdc management (17848), Therapeutic exercise (39506), Patient/Family/Caregiver Education PLAN FOR NEXT VISIT: Patient [...] WITH LEVEL OF FUNCTION: Positional Testing Left [employer]: Asymptomatic Right Nylen Barany: Asymptomatic Supine Head [...] 932 Jean Ley PT [facility] NoteUT Electrophysiology Consult Note Reason for visit: afib, chest pain , palpitations HPI: Rey Baxter is a 43 y.o. year old with past medical history of Lumbar radiculopathy, GERD, HERIBERTO, fatigue, paroxysmal A-fib,, lead toxicity. Patient was referred to our clinic for A-fib [facility] to be in [facility]-fib [...] his lead toxicity Patient was referred to [facility] but it seems as though no one [...] s2, no gallop Systo (more content not included)...[facility] 08-04-2023 Miscellaneous Notes* Telephone Encounter - Zander Denson MA - 08/04/2023 9:08 AM EDT Patient records received via electronic fax. Uploaded to [employer] via [employer]. Please review in scanned documents tab of chart review. Zander Denson MA documented in this encounterAd[facility]04-[facility]24 NoteHNO ID: [id number] Author: MATTHEW BANERJEE CT Service: ? Author [...] PATIENT PRESENTS WITH AN IMPLANTABLE OR ATTACHED STATION MANAGER: No ALLERGIES: Reviewed and unchanged CONTRAST ALLERGY: NO. EXAM: MRI - CONTRAST TYPE: GROUP II PERIPHERAL IV DATA: Ambulatory: A peripheral IV was started in the Left antecubital site with a Angio cath: 24 gauge. RADIOLOGY DEPARTMENT: MR; Exam(s) Completed: Head: Routine Brain SIGNATURE: TATI Tolbert PATIENT NAME: Rey Baxter DATE: August 03, 2023 TIME: 3:06 [facility]04-11-2024 History of Present illness Narrative* Matthew [...] PATIENT PRESENTS WITH AN IMPLANTABLE OR ATTACHED STATION MANAGER: No ALLERGIES: Reviewed and unchanged CONTRAST ALLERGY: NO. EXAM: MRI - CONTRAST TYPE: GROUP II PERIPHERAL IV DATA: Ambulatory: A peripheral IV was started in the Left antecubital site with a Angio cath: 24 gauge. RADIOLOGY DEPARTMENT: MR; Exam(s) Completed: Head: Routine Brain SIGNATURE: TATI Tolbert PATIENT NAME: Rey Baxter DATE: August 03, 2023 TIME: 3:06 PM documented in this encounterAdams County [facility] Center04-10-2024 NoteHNO ID: [id number] Author: JI FAJARDO MD Service: ? 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 Lead is not being chelated at [...] worsening headaches. Pt needs MRI-Brain to r/o MULTIFOCAL BUTTON GENERATOR changes from heavy metal toxicity. Pt can trial nortriptyline 10 mg po qhs in the interim for symptomatic relief. Return 3 months or sooner if needed. Ji Fajardo MD August 04, 2023 2:09 PM documented in this encounterAdams County [facility] Center04-09-2024 Miscellaneous Notes* Telephone Encounter - Digna Chavez RN - 08/01/2023 5:12 PM EDT Patient calling with request for physician referral: Patient referred to Neurology Department. . Patient denies any new or worsening symptoms of which a provider is not aware: Yes. Ac took call back over for scheduling. documented in this encounterAdams County [facility] Center02-28-2024 NoteUT Electrophysiology Consult Note Reason for visit: afib, chest pain , palpitations, new pt HPI: Rey Baxter is a 42 y.o. year old with past medical history of Lumbar radiculopathy, GERD, HERIBERTO, fatigue, paroxysmal A-fib,, lead toxicity. Patient was referred to our clinic for [facility]fib [facility] [...] his lead toxicity Patient was referred to [facility] but it seems as though no one [...] rales, no rhonchi C (more content not included)...[facility]02-28-2024 NoteTC to BACTERIOLOGIST MEDICAL internal referral for: T56.0X1S (ICD-10-CM) - Toxic effect of lead, accidental or unintentional, sequela PT states he will call back to schedule. Clinic number provided. [facility]02-27-2024 NoteThiannamarie screenplay writer was consulted by Dr. Vogt to assist patient with workers comp claim and resources for lead poisoning. This screenplay writer met with patient following his visit with Dr. Vogt and provided him the [place] [employer] [employer] Workers' Compensation contact. This screenplay writer informed patient resources on lead poisoning will be researched as this screenplay writer does not currently have information. The patient stated Dr. Vogt provided him with poison control's contact and he plans to call them. This screenplay writer will research additional resources.[facility]02-[facility]24 NoteHEMATOLOGY ONCOLOGY CONSULT NOTE Reason for consult: Chief Complaint: History of present illness: The patient is a 42 y.o. male with PMHx of that presented with lead poisoning. Company makes plaques . Patient melts of the same and 06/01/2023 Lead,Blood,Venipuncture Order: [id number] Component Ref Range & Units 2 wk ago Lead <3.5 mcg/dL 33.8 High Comment: NOTE Patient had lead testing at [facility] and was 43 Upon evaluation, No results found for: WBC , HGB , HCT , MCV , PLT Order: [id number] Component Ref Range & Units 2 wk [...] 0.0 - 0.2 X10E9/L 0.1 Resulting Agency [facility] Specimen Collected: 06/01/23 15:10 Performed by: [employer] Last Resulted: 06/01/23 15:22 Received From: [facility]. Result Received: 06/20/23 13:09 View Encounter Received Information Result Report CBC auto differential (Order #[id number]) on 06/01/23 Lab Component SmartPhrase Guide CBC auto differential (Order #[id number]) on 06/01/23 Additional PMHx includes afib passed out work and was admitted in [place] and has been on eliquis since jun 02 by cardiology Hematologic / Oncologic hx: - Family hx of malignancy/blood disorder: none - Primary Drill Rig Operator/Oncologist:none - Established diagnoses: Lead poisoning will be [...] 2. Screening for col (more content not included)...[facility] Future Appointments Appointment Date:02/26/2024 02:45:00 PM Scheduled Provider: Location:[facility] Appointment Type:Surgery FT Appointment Date:03/11/2024 09:30:00 AM Scheduled Provider:Julio Mckinley MD [facility] Type:[facility] Follow Up [facility] Evaluation note* Diagnosis Worsening headaches- Primary Headache Dizziness Dizziness and giddiness Toxic effect of lead, accidental or unintentional, initial encounter documented in this encounter [facility]* Diagnosis Dizziness Dizziness and giddiness documented in this encounter [facility]* Diagnosis Worsening headaches Headache documented in this encounter [facility] note* Diagnosis Lead toxicity, accidental or unintentional, initial encounter- Primary documented in this encounter [facility] Narrative No data available for this section [facility] Hospital Discharge instructions No data available for this section [facility] InstructionsNot on filedocumented in this encounter [facility]Not [facility] filedocumented in this encounter [facility] No data available for this section [facility] Summary Purpose Family History No [...] HIGH M[place] 60 [place] [address] [place] [address] Referral ID Status Reason Start Date Expiration Date Visits Requested Visits Authorized [id number] Pending Review PCP Requested Referral 11/01/2023 08/01/2024 1 1 Specialty Diagnoses / Procedures Referred By Aide t Referred To Contact [facility] Diagnoses Dizziness Procedures CONSULT TO PHYSICAL THERAPY PHYSICAL THERAPY EVALUATION HIGH COMPLEX [place] [address] [place] [address] [facility] [address] [address] Referral ID Status Reason Start Date Expiration Date Visits Requested Visits Authorized [id number] Pending Review Auto-Generat ed Referral 08/02/2023 08/01/2024 1 1 Specialty Diagnoses / Procedures Referred By Aide lopez Referred To Contact [facility] Diagnoses Worsening headaches Procedures MRI BRAIN WO/W IVCON MRI BRAIN BRAIN STEM W/O W/[place] [address] [place] [address] [place] [address] Referral ID Status Reason Start Date Expiration Date V isits Requested Visits Authorized [id number] Closed Auto-Generate d Referral 08/02/2023 08/31/2024 1 1 Additional Source Comments (unrecognized sect ion and content) No Status Records FoundNo Status Records FoundNo Status Records FoundNo Status Records FoundNo Status Records FoundNo Status Records FoundNo Status Records Found INFORMATION SOURCE (unrecogn ized section and content) DATE CREATED AUTHOR 09/05/2022 [facility] DATE CREATED AUTHOR AUTHOR'S ORGANIZ ATION 06/05/2023 [facility] DATE CREATED AUTHOR AUTHOR'S ORGANIZ ATION 08/14/2023 [facility] DATE CREATED AUTHOR AUTHOR'S ORGANIZ ATION 01/28/2024 [facility] DATE CREATED AUTHOR AUTHOR'S ORGANIZ ATION 03/06/2024 [facility] DATE CREATED AUTHOR AUTHOR'S ORGANIZ ATION 03/12/2024 [facility] DATE CREATED AUTHOR AUTHOR'S ORGANIZ ATION 07/03/2024 [facility] Source Comments (unrecognize d section and [...] Confusion. Procedures NEW NEUR HEADACHE Ashley Foster, GOVERNMENT SERVICES PROFESSIONAL [address] [place] [address] Ji Fajardo MD [address] [place], [place] [id number] Referral ID Status Reason Start Date Expiration Date V isits Requested Visits Authorized [id number] Authorized 07/10/2023 01/10/2024 2 2 Reason Comments PT Eval Specialty Diagnoses / Procedures Referred By Contac t Referred To Contact [facility] Diagnoses Dizziness Procedures CONSULT TO PHYSICAL THERAPY PHYSICAL THERAPY EVALUATION HIGH COMPLEX 45 MINS Ji Fajardo MD [address] [place] [address] [facility] [place] [id number] Referral ID Status Reason Start Date Expiration Date Visits Requested Visits Authorized [id number] Pending Review Auto-Generat ed Referral 08/02/2023 08/01/2024 1 1 Reason Comments Radiology MRI Specialty Diagnoses / Procedures Referred By Contac t Referred To Contact [facility] IMAGING Diagnoses Worsening headaches Procedures MRI BRAIN WO/W IVCON MRI BRAIN BRAIN STEM W/O W/CONTRAST MATERIAL Ji Fajardo MD [address] [place] [address] [facility] Referral ID Status Reason Start Date Expiration Date V isits Requested Visits Authorized [id number] Closed Auto-Generate d Referral 08/02/2023 08/31/2024 1 1 Care Teams (unrecognized sec tion and content) It Quality Assurance Analyst Relationship Specialty Start Date End Date Ollie Pitt [address] [place] [facility] [place] [address] 06/26/23 Ashley Foster CNP [address] [facility] [place] [address] Referring Family Medicine 07/26/23 It Quality Assurance Analyst Relationship Specialty Start Date End Date Ollie Pitt [address] [place] [facility] [place] [address] 06/26/23 Ashley Foster CNP [address] [facility] [place] [address] Referring Family Medicine 07/26/23 It Quality Assurance Analyst Relationship Specialty Start Date End Date Ollie Pitt [address] [place] [facility] [place] [address] 06/26/23 Ashley Foster CNP [address] [facility] [place] [address] Referring Family Medicine 07/26/23 It Quality Assurance Analyst Relationship Specialty Start Date End Date Ollie Pitt [address] [place] [facility] [place] [address] 06/26/23 Ashley Foster CNP [address] [facility] [place] [address] Referring Family Medicine 07/26/23 It Quality Assurance Analyst Relationship Specialty Start Date End Date Ollie Pitt [address] [place] [facility] [place] [address] 06/26/23 Ashley Foster CNP [address] [facility] [place] [address] Referring Family Medicine 07/26/23 It Quality Assurance Analyst Relationship Specialty Start Date End Date Ollie Pitt, BACTERIOLOGIST MEDICAL [address] [place] [facility] [place] [address] 06/26/23 Ashley Foster CNP [address] [facility] [place] [address] Referring Family Medicine 07/26/23 It Quality Assurance Analyst Relationship Specialty Start Date End Date Irena Jeffery MD PCP - General Family Medicine 06/01/23 It Quality Assurance Analyst Relationship Specialty Start Date End Date Irena [...] BE BASED ON THE PRIMARY CLINICAL RECORDS. [employer] [facility]. provides no warranty or guarantee of the accuracy or completeness of information in this document.
[2024-07-06 10:20] LABS: Basophils Absolute Auto 0.1 10^3/uL (0.0-0.1); Basophils Percent Auto 0.9 % (0.2-2.0); Eosinophils Absolute Auto 0.2 10^3/uL (0.0-0.7); Eosinophils Percent Auto 3.4 % (0.9-7.0); Hematocrit 41.7 % (42.0-54.0); Hemoglobin 14.8 g/dL (14.0-18.0); Immature Granulocytes Abs Auto 0.02 10^3/uL (0.00-0.03); Immature Granulocytes Pct Auto 0.4 % (0.0-0.5); Lymphocytes Absolute Auto 1.4 10^3/uL (1.2-3.8); Lymphocytes Percent Auto 24.8 % (20.5-60.0); Mean Corpuscular HGB Conc 35.5 g/dL (29.9-35.2); Mean Corpuscular Hemoglobin 31.2 pg (25.9-34.0); Mean Platelet Volume 10.2 fL (9.5-13.5); Monocytes Absolute Auto 0.6 10^3/uL (0.3-0.8); Monocytes Percent Auto 10.2 % (1.7-12.0); Neutrophils Absolute Auto 3.4 10^3/uL (1.4-6.5); Neutrophils Percent Auto 60.3 % (43.0-75.0); Platelet Count 188 10^3/uL (150-450); Red Blood Count 4.74 10^6/uL (4.70-6.10); White Blood Count 5.6 10^3/uL (4.0-11.0)
[2024-07-06 10:46] LABS: Anion Gap 9.8; Carbon Dioxide 30.6 mmol/L (21.0-32.0); Chloride 106 mmol/L (98-107); Glucose 94 mg/dL (74-106); Potassium 4.4 mmol/L (3.5-5.1); Sodium 142 mmol/L (136-145)
[2024-07-06 10:47] LABS: Alanine Aminotransferase 53 U/L (16-63); Albumin Globulin Ratio 1.3; Albumin Level 3.8 g/dL (3.4-5.0); Alkaline Phosphatase 100 U/L (46-116); Aspartate Amino Transferase 20 U/L (15-37); BUN Creatinine Ratio 9.9; Bilirubin Total 0.4 mg/dL (0.2-1.0); Calcium 9.8 mg/dL (8.5-10.1); Estimated GFR (African America >60 (>=60 mL/min/1.73m^2); Estimated GFR (Non-African Ame 59 (>=60 mL/min/1.73m^2); Total Protein 6.8 g/dL (6.4-8.2); Triglycerides 110 mg/dL (<=150)
[2024-07-06 10:48] LABS: Chol HDL Ratio 4.4; Cholesterol 175 mg/dL (<=200); HDL Cholesterol 40 mg/dL (40-60)
[2024-07-10 05:07] LABS: Lead, Blood (Adult) 10.3 ug/dL (0.0-3.4)
== END 2024-07-06 10:06 | disposition home or self-care (01) ==
PROVIDERS: PCP Family Medicine
DX: R07.89 Other chest pain (principal); I47.19 Other supraventricular tachycardia; Z77.011 Contact with and (suspected) exposure to lead
CPT/HCPCS: 36415; 80053; 80061; 83655; 85025

== ENCOUNTER 2024-08-27 10:58 | Outpatient (OUT) | payer OTHER, SELFPAY ==
--- NOTE | 2024-08-27 11:25 | XR_ITS ---
[facility] [place] [id number] Patient Name: YAMILET WHITAKER MRN: [id number] date: 1980 Sex: M Assigned Patient Location: [facility] Current Patient Location: [facility] Accession/Order Number: [id number] Exam Date: 08/27/2024 11:53 Report Date: 08/27/2024 11:54 At the request of: IRENA JEFFERY MD Procedure: XR ribs RT min 3V w CXR1V PA CHEST WITH 5 VIEWS RIGHT RIBS: CLINICAL HISTORY: Chest Wall Pain, Right Upper Quadrant Pain COMPARISON: None FINDINGS: Heart is normal in size. Evidence old granulomatous disease. No consolidation pneumothorax pleural effusion or free air. No displaced right-sided rib fracture is seen. XR/XR ribs RT min 3V w CXR1V IMPRESSION: No acute findings. Impression dictated by: Moris Pichardo Jr. DJoaquinOJoaquin 08/27/2024 11:54 AM Dictation Location: [facility]LA[facility]ITALg[facility] Electronically authenticated by: [id number] Y Date: 08/27/2024 11:54
== END 2024-08-27 10:59 | disposition home or self-care (01) ==
LOC: RAD 11:03
PROVIDERS: PCP Family Medicine; Visit Provider Family Medicine
DX: R07.89 Other chest pain (principal); R10.11 Right upper quadrant pain
CPT/HCPCS: 71101

== ENCOUNTER 2024-08-28 08:00 | Outpatient (OUT) | payer OTHER, SELFPAY ==
--- NOTE | 2024-08-28 08:04 | US_ITS ---
[place] [id number] Patient Name: YAMILET WHITAKER MRN: [id number] date: 1980 Sex: M Assigned Patient Location: [place] Current Patient Location: [place] Accession/Order Number: [id number] Exam Date: 08/28/2024 09:55 Report Date: 08/28/2024 09:58 At the request of: IRENA JEFFERY MD Procedure: US right upper quadrant LIMITED ABDOMINAL ULTRASOUND: CLINICAL HISTORY: Right Upper Abdominal Pain COMPARISON: Ultrasound 12/15/2023 TECHNIQUE: Grayscale and color Doppler images of the right upper quadrant organs were obtained. FINDINGS: Pancreas: Visualized portions appear unremarkable. Liver: Unremarkable. Gallbladder: Unremarkable. CBD: 4.5 mm RT KIDNEY: Right nephrolithiasis largest measuring 8 mm. No hydronephrosis. US/US right upper quadrant IMPRESSION: RIGHT NEPHROLITHIASIS. NO HYDRONEPHROSIS. NO ACUTE PROCESS.. Impression dictated by: Moris Pichardo Jr. DJoaquinOJoaquin 08/28/2024 9:58 AM Dictation Location: [place] [address] Electronically authenticated by: [id number] Y Date: 08/28/2024 09:58
== END 2024-08-28 08:01 | disposition home or self-care (01) ==
LOC: US 08:00
PROVIDERS: PCP Family Medicine; Visit Provider Family Medicine
DX: R07.89 Other chest pain (principal); R10.11 Right upper quadrant pain; N20.0 Calculus of kidney
CPT/HCPCS: 76705

== ENCOUNTER 2024-10-03 18:15 | Emergency (ER) | payer OTHER, SELFPAY ==
[2024-10-03 18:25] VITALS: BP 135/85; PULSE 80; TEMP 37.1; O2SAT 98; BMI 24.4
--- OUTSIDE RECORDS SUMMARY | 2024-10-03 18:27 | XMS_ITS | CCD ---
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 MEDICATION CHANGES THAT [...] MD PATIENT EDUCATION INFORMATION Instructions: Medication Leaflets: [facility] Gastroenterology Office/Clin ic Noteon 02-01-2024 Gastroenterology [...] small bowel intussusception. XR abd 01/11/24 @ [place]: IMPRESSION: Clear lungs Moderate amount of stool US appendix 01/11/24 @ [place]: IMPRESSION: The appendix is not visualized Review [...] E&M of New Patient Moderate 45-59 Min 76579 EGD Endoscopy (Hospital Procedure) 2. LUQ pain [...] E&M of New Patient Moderate 45-59 Min 96967 EGD Endoscopy (Hospital Procedure) 4. Gastroesophageal reflux disease (K21.9: Gastro-esophageal reflux disease without esophagitis) Continue pantoprazole Ordered: Colonoscopy (Hospital Procedure) E&M of New Patient Moderate 45-59 Min 44210 EGD Endoscopy (Hospital Procedure) 5. 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 Never Smokeless Tobacco Use:., 02/01/2024 [facility] Comment on above: Result Comment: Elec tronically Signed By: Elías ROTH, Julio Pond\.br\Date and Time Signed: 02/01/24 15:45 EDT Office Visiton 12-18-2023 Follow-up visit [id number] Blanca Baxter 1980 M Date Provider Department Center 12/18/2023 3848-BERANRDO HAYNES ARASELI [place] Family History Problem Relation Age of Onset Lupus Mother Muscular dystrophy Mother Diabetes Other Family Status - Relation Status Age at Mother Other Level of Service:02935 ME OFFICE/OUTPATIENT ESTABLISHED LOW MDM 20 MIN Normal [facility] CNTHERAPYon 08-10-2023 CNTHERAPY OT/PT/Speech Visit ( [facility]) REY BAXTER ([id number]) 1980 M Date Time Provider Department 08/10/23 9:30 AM JEAN LEY [facility] Date Time Provider Department Center 08/10/2023 9:30 AM 704806-KEUXGMEJEAN LEY [facility] Reason for Visit: PT Eval [077] Visit Diagnosis:Dizziness [R42] Allergies As of Date: [...] 1 capsule by mouth daily at bedtime. [employer] Kettle Tender: Therapy (PT/OT/Speech/Resp) ID: [id number] 08/10/2023 10:06 AM Author: JEAN LEY Signed by JEAN LEY PT on 08/10/2023 at 10:06 AM Document text: Program_ID:[id number] Access Code: [email or web address] URL: [email or web address] Date: 08-10-2023 Prepared By: Jean Ley Program [...] - 3 sets - 10 reps Normal [facility] THERAPY NTon 08-10-2023 THERAPY NT HNO ID: [id number] Author: JEAN LEY, PT Service: ? Author Type: Physical Therapist Type: Therapy (PT/OT/Speech/Resp) Filed: 08/10/2023 10:06 Note Text: Program_ID:[id number] Access Code: [email or web address] URL: [email or web address] Date: 08-10-2023 Prepared By: Jean Ley Program [...] - 3 sets - 10 reps Normal [facility] Office Visiton 08-08-2023 Follow-up visit [id number] Blanca Baxter 1980 M Date Provider Department Center 08/08/2023 241-JAMAR STOCK ARASELI [facility] Family History Problem Relation Age of Onset Lupus Mother Muscular dystrophy Mother Diabetes Other Family Status - Relation Status Age at Mother Other Level of Service:51942 ME OFFICE/OUTPATIENT NEW MODERATE MDM 45 MINUTES Normal [facility] CNPNon 08-04-2023 CNPN Telephone (NUMBHT) REY BAXTER ([id number]) 1980 M Date Time Provider Department 08/04/23 JI FAJARDO During your visit today, we recorded the following information about you: Zander Denson MA 08/04/2023 9:09 AM Signed Patient records received via electronic fax. Uploaded to [employer] via [employer]. Please review in scanned documents tab of [...] Status:Closed by ZANDER DENSON on 08/04/23 Normal [facility] MR Brain WO and W contrast I Josh 08-03-2023 IMPRESSION: Minimal paranasal sinus inflammatory changes. Otherwise normal study. Customer Acquisition Manager: PSCB Transcribe Date/Time: Aug 03 2023 3:53P Dictated by : JAMAR SMITH MD This examination was interpreted and the report reviewed and electronically signed by: JAMAR SMITH MD on Aug 03 2023 3:57PM [facility] OF RADIOLOGY * * *Final Report* [...] paranasal sinus inflammatory changes. Otherwise normal study. Customer Acquisition Manager: TAE Transcribe Date/Time: Aug 03 2023 3:53P Dictated by : JAMAR SMITH MD This examination was interpreted and the report reviewed and electronically signed by: JAMAR SMITH MD on Aug 03 2023 3:57PM EST [facility] Radiology Study observation (narrative) [facility] MR Brain WO and W contrast I VOrdered By: Ccf Provider on 08-03-2023 [facility] MRI BRAIN WO/W IVCONon 08-02 MRI BRAIN [...] paranasal sinus inflammatory changes. Otherwise normal study. Customer Acquisition Manager: PSCB Transcribe Date/Time: Aug 03 2023 3:53P Dictated by : JAMAR SMITH MD This examination was interpreted and the report reviewed and electronically signed by: JAMAR SMITH MD on Aug 03 2023 3:57PM EST [id number] Normal [facility] CNOVon 08-02-2023 CNOV Office Visit ([facility]) REY BAXTER ([id number]) 1980 M Date Time Provider Department 08/02/23 4:00 PM JI FAJARDO [facility] During your visit today, we recorded the following information about you: Pulse Respiration Blood pressure Weight 74/minute 18/minute 115/74 72.4 kg Height 1.778 m Ji Fajardo MD 08/04/2023 2:09 PM Signed [facility] NEW EVALUATION August 04, 2023 4:00 PM Pt is 43 year old male from [place], [place] who presents with headaches that appears subsequent to 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 Lead is not being chelated at [...] iv contrast (more content not included)... Normal [facility] Yumiko 08-02-2023 CNPN Telephone (NUMBHT) VEEREY S ([id number]) 1980 M Date Time Provider Department 08/02/23 [...] Encounter Status:Closed by ZANDER DENSON on 08/03/23 Normal [facility] CBC AND AUTO DIFFon 06-02-19 24 ABSOLUTE BASOPHIL 0.1 X10E9/L Normal 0.0-0.2 [facility] Comment on above: Performed By: #### C BCA, CMP, 52925-8, PINR, 95224-4, 89674-0, 53375-7, 64659-1, THYR #### [facility] ([id number]) [address] [place] [address] [place] [address] ABSOLUTE NEUTROPHIL 3.9 X10E9/L Normal 1.5-6.6 [facility] Comment on above: Performed By: #### C BCA, CMP, 74417-4, PINR, 79245-3, 67516-9, 29781-4, 45700-1, THYR #### [facility] ([id number]) [address] [place] [address] 48805 Basophils/100 WBC (Bld) 0.8 % Normal [facility] Comment on above: Performed By: #### C BCA, CMP, 81407-9, PINR, 55242-2, 96155-1, 53744-3, 87929-6, THYR #### [facility] ([id number]) [address] [place] [address] 35906 Eosinophils (Bld) [#/Vol] 0.1 10*3/uL Normal 0.0-0.4 [facility] Comment on above: Performed By: #### C BCA, CMP, 83272-4, PINR, 92601-9, 46689-3, 47026-7, 78913-8, THYR #### [facility] ([id number]) [address] [place] [address] 14061 Eosinophils/100 WBC (Bld) 1.4 % Normal [facility] Comment on above: Performed By: #### C BCA, CMP, 88002-4, PINR, 75300-0, 77838-8, 50444-9, 71219-6, THYR #### [facility] ([id number]) [address] [place] [address] 16611 Erythrocyte distribution width (RBC) [Ratio] 13.2 % Normal 11.5-15.0 [facility] Comment on above: Performed By: #### C BCA, CMP, 23146-0, PINR, 79629-4, 37020-7, 73665-4, 39675-3, THYR #### [facility] ([id number]) [address] [place] [address] 58729 Hematocrit (Bld) [Volume fraction] 40.7 % Normal 39-49 [facility] Comment on above: Performed By: #### C BCA, CMP, 07513-7, PINR, 61547-9, 03409-1, 78822-0, 56700-5, THYR #### [facility] ([id number]) [address] [place] [address] 28062 Hemoglobin (Bld) [Mass/Vol] 14.2 g/dL Normal 13.0-17.0 [facility] Comment on above: Performed By: #### C BCA, CMP, 66188-1, PINR, 62969-4, 78647-3, 90580-4, 63105-6, THYR #### [facility] ([id number]) [address] [place] [address] 14176 Lymphocytes (Bld) [#/Vol] 2.2 10*3/uL Normal 1.0-3.5 [facility] Comment on above: Performed By: #### C BCA, CMP, 88519-9, PINR, 94630-2, 12877-4, 53022-0, 87150-7, THYR #### [facility] ([id number]) [address] [place] [address] 69015 Lymphocytes/100 WBC (Bld) 31.4 % Normal [facility] Comment on above: Performed By: #### C BCA, CMP, 53970-4, PINR, 04348-4, 07710-3, 32892-7, 96639-9, THYR #### [facility] ([id number]) [address] [place] [address] 41001 MCH (RBC) [Entitic mass] 30.7 pg Normal 27-34 [facility] Comment on above: Performed By: #### C BCA, CMP, 65371-7, PINR, 87812-9, 38887-8, 90118-3, 07244-8, THYR #### [facility] ([id number]) [address] [place] [address] 61859 MCHC (RBC) [Mass/Vol] 34.9 g/dL Normal 32-36 [facility] Comment on above: Performed By: #### C BCA, CMP, 94545-5, PINR, 97688-6, 74640-9, 81212-7, 93733-2, THYR #### [facility] ([id number]) [address] [place] [address] 08985 MCV (RBC) [Entitic vol] 88 fL Normal 80-100 [facility] Comment on above: Performed By: #### C BCA, CMP, 04844-7, PINR, 78055-5, 65301-8, 04266-0, 56192-8, THYR #### [facility] ([id number]) [address] [place] [address] 73208 Monocytes (Bld) [#/Vol] 0.7 10*3/uL Normal 0-0.9 [facility] Comment on above: Performed By: #### C BCA, CMP, 36709-3, PINR, 75830-3, 74515-0, 78504-5, 43818-2, THYR #### [facility] ([id number]) [address] [place] [address] 19620 Monocytes/100 WBC (Bld) 10.7 % Normal [facility] Comment on above: Performed By: #### C BCA, CMP, 03225-9, PINR, 06541-8, 03922-0, 81313-9, 80666-2, THYR #### [facility] ([id number]) [address] [place] [address] 15720 Neutrophils/100 WBC (Bld) 55.7 % Normal [facility] Comment on above: Performed By: #### C BCA, CMP, 26992-6, PINR, 43488-8, 77390-4, 51867-9, 24056-9, THYR #### [facility] ([id number]) [address] [place] [address] 94541 Platelet mean volume (Bld) [Entitic vol] 8.5 fL Normal 7-12 [facility] Comment on above: Performed By: #### C BCA, CMP, 92280-1, PINR, 82681-5, 41001-0, 59075-7, 48258-9, THYR #### [facility] ([id number]) [address] [place] [address] 92680 Platelets (Bld) [#/Vol] 192 10*3/uL Normal 150-450 [facility] Comment on above: Performed By: #### C BCA, CMP, 63355-6, PINR, 97074-5, 26533-7, 86040-2, 62073-4, THYR #### [facility] ([id number]) [address] [place] [address] 81313 RBC COUNT 4.61 X10E12/L Normal 4.10-5.70 [facility] Comment on above: Performed By: #### C BCA, CMP, 55064-0, PINR, 85134-2, 15000-3, 99020-6, 99391-4, THYR #### [facility] ([id number]) [address] [place] [address] 99742 WBC (Bld) [#/Vol] 7.0 10*3/uL Normal 4.0-11.0 [facility] Comment on above: Performed By: #### C BCA, CMP, 89703-1, PINR, 03493-6, 75024-3, 06923-5, 21416-4, THYR #### [facility] ([id number]) [address] [place] [address] 71296 COMPREHENSIVE METABOLIC PANE Nik 06-02-2023 Albumin [Mass/Vol] 4.2 g/dL Normal 3.2-5.3 [facility] Comment on above: Performed By: #### C BCA, CMP, 16260-0, PINR, 65191-3, 98097-3, 92807-4, 11013-4, THYR #### [facility] ([id number]) [address] [place] [address] 23585 ALP [Catalytic activity/Vol] 84 U/L Normal 39-130 [facility] Comment on above: Performed By: #### C BCA, CMP, 90364-8, PINR, 19871-1, 91901-8, 12356-7, 39634-2, THYR #### [facility] ([id number]) [address] [place] [address] 88059 ALT [Catalytic activity/Vol] 27 U/L Normal 0-40 [facility] Comment on above: Performed By: #### C BCA, CMP, 23017-5, PINR, 44856-5, 56453-9, 91213-8, 24093-7, THYR #### [facility] ([id number]) [address] [place] [address] 36903 Anion gap [Moles/Vol] 8 mmol/L Normal 5-15 [facility] Comment on above: Performed By: #### C BCA, CMP, 98954-4, PINR, 77354-7, 94409-4, 58521-9, 32348-8, THYR #### [facility] ([id number]) [address] [place] [address] [place] [address] AST [Catalytic activity/Vol] 22 U/L Normal 0-41 [facility] Comment on above: Performed By: #### C BCA, CMP, 18849-1, PINR, 84988-5, 96800-0, 97859-6, 85807-4, THYR #### [facility] ([id number]) [address] [place] [address] 86379 Bilirubin [Mass/Vol] 0.8 mg/dL Normal 0.3-1.2 [facility] Comment on above: Performed By: #### C BCA, CMP, 57787-5, PINR, 49750-1, 86066-5, 38169-3, 26932-8, THYR #### [facility] ([id number]) [address] [place] [address] 91106 Calcium [Mass/Vol] 10.0 mg/dL Normal 8.5-10.5 [facility] Comment on above: Performed By: #### C BCA, CMP, 79090-6, PINR, 63002-2, 02977-0, 06500-6, 07481-8, THYR #### [facility] ([id number]) [address] [place] [address] 07941 Chloride [Moles/Vol] 102 mmol/L Normal 98-109 [facility] Comment on above: Performed By: #### C BCA, CMP, 18728-4, PINR, 26917-4, 62947-9, 66980-8, 76863-1, THYR #### [facility] ([id number]) [address] [place] [address] 95607 CO2 [Moles/Vol] 26 mmol/L Normal 22-32 [facility] Comment on above: Performed By: #### C BCA, CMP, 26126-2, PINR, 91145-4, 60288-0, 99430-5, 50494-8, THYR #### [facility] ([id number]) [address] [place] [address] 19558 Creatinine [Mass/Vol] 1.07 mg/dL Normal 0.70-1.20 [facility] Comment on above: Result Comment: METH OD TRACEABLE TO IDMS STANDARD Performed By: #### C BCA, CMP, 86143-1, PINR, 32681-3, 22107-2, 17845-6, 98507-3, THYR #### [facility] ([id number]) [address] [place] [address] 99084 GFR/1.73 sq M.predicted among non-blacks MDRD (S/P/Bld) [Vol rate/Area] 88 mL/min/{1.73_m2} Normal >59 [facility] Comment on above: Result Comment: Reported eGFR is based on the CKD-EPI 2020 equation that does not use a race coefficient. Performed By: #### C BCA, CMP, 85095-3, PINR, 54155-1, 29566-4, 11390-1, 77198-8, THYR #### [facility] ([id number]) [address] [place] [address] 49753 Glucose [Mass/Vol] 94 mg/dL Normal 65-99 [facility] Comment on above: Performed By: #### C BCA, CMP, 66662-7, PINR, 27845-5, 22239-8, 89938-8, 46355-4, THYR #### [facility] ([id number]) [address] [place] [address] 95308 Potassium [Moles/Vol] 4.0 mmol/L Normal 3.5-5.0 [facility] Comment on above: Performed By: #### C BCA, CMP, 30050-5, PINR, 19713-3, 69565-0, 78098-8, 29709-3, THYR #### [facility] ([id number]) [address] [place] [address] 87560 Protein [Mass/Vol] 7.0 g/dL Normal 6.0-8.0 [facility] Comment on above: Performed By: #### C BCA, CMP, 84905-8, PINR, 62526-7, 26689-7, 05743-5, 04619-0, THYR #### [facility] ([id number]) [address] [place] [address] 29522 Sodium [Moles/Vol] 136 mmol/L Normal 134-146 [facility] Comment on above: Performed By: #### C BCA, CMP, 23603-9, PINR, 48291-6, 65204-2, 71034-2, 60788-4, THYR #### [facility] ([id number]) [address] [place] [address] 04021 Urea nitrogen [Mass/Vol] 20 mg/dL Normal 5-23 [facility] Comment on above: Performed By: #### C BCA, CMP, 19336-6, PINR, 47936-6, 80729-7, 10503-2, 45310-3, THYR #### [facility] ([id number]) [address] [place] [address] 27512 MAGNESIUMon 06-02-2023 Magnesium [Mass/Vol] 2.1 mg/dL Normal 1.8-2.6 [facility] Comment on above: Performed By: #### C BCA, CMP, 85994-9, PINR, 26742-2, 74983-1, 91202-2, 17081-2, THYR #### [facility] ([id number]) [address] [place] [address] 34903 TROPONIN Ion 06-02-2023 Troponin I.cardiac [Mass/Vol] ng/mL Normal 0.00-0.04 [facility] Comment on above: Performed By: #### C BCA, CMP, 12472-8, PINR, 22763-6, 65513-1, 39380-5, 02334-3, THYR #### [facility] ([id number]) [address] [place] [address] 80076 CBC AND AUTO DIFFon 06-01-19 24 ABSOLUTE BASOPHIL 0.1 X10E9/L Normal 0.0-0.2 [facility] Comment on above: Performed By: #### C BCA, CMP, 85632-2, PINR, 62946-2, 81041-9, 10487-9, 95045-8, THYR #### [facility] ([id number]) [address] [place] [address] 64499 ABSOLUTE NEUTROPHIL 5.1 X10E9/L Normal 1.5-6.6 [facility] Comment on above: Performed By: #### C BCA, CMP, 52217-7, PINR, 20405-8, 90490-2, 99077-5, 10528-4, THYR #### [facility] ([id number]) [address] [place] [address] 88854 Basophils/100 WBC (Bld) 0.8 % Normal [facility] Comment on above: Performed By: #### C BCA, CMP, 64891-7, PINR, 85692-7, 02327-3, 69575-2, 08227-1, THYR #### [facility] ([id number]) [address] [place] [address] 92326 Eosinophils (Bld) [#/Vol] 0.1 10*3/uL Normal 0.0-0.4 [facility] Comment on above: Performed By: #### C BCA, CMP, 41813-9, PINR, 89060-7, 77398-9, 92915-6, 92456-2, THYR #### [facility] ([id number]) [address] [place] [address] 08011 Eosinophils/100 WBC (Bld) 1.1 % Normal [facility] Comment on above: Performed By: #### C BCA, CMP, 54087-1, PINR, 46284-7, 42174-1, 47555-2, 66687-2, THYR #### [facility] ([id number]) [address] [place] [address] 25515 Erythrocyte distribution width (RBC) [Ratio] 13.0 % Normal 11.5-15.0 [facility] Comment on above: Performed By: #### C BCA, CMP, 85185-2, PINR, 54637-7, 32215-5, 60588-2, 30908-7, THYR #### [facility] ([id number]) [address] [place] [address] 13121 Hematocrit (Bld) [Volume fraction] 41.5 % Normal 39-49 [facility] Comment on above: Performed By: #### C BCA, CMP, 09939-1, PINR, 89067-1, 27100-9, 78725-5, 92467-1, THYR #### [facility] ([id number]) [address] [place] [address] 57514 Hemoglobin (Bld) [Mass/Vol] 14.6 g/dL Normal 13.0-17.0 [facility] Comment on above: Performed By: #### C BCA, CMP, 24039-7, PINR, 00684-8, 30732-0, 10689-7, 74358-1, THYR #### [facility] ([id number]) [address] [place] [address] 04176 Lymphocytes (Bld) [#/Vol] 1.7 10*3/uL Normal 1.0-3.5 [facility] Comment on above: Performed By: #### C BCA, CMP, 91213-4, PINR, 65517-9, 60569-3, 59902-4, 34657-3, THYR #### [facility] ([id number]) [address] [place] [address] Lymphocytes/100 WBC (Bld) 22.2 % Normal [facility] Comment on above: Performed By: #### C BCA, CMP, 25771-0, PINR, 19925-9, 75478-5, 92786-3, 74447-1, THYR #### [facility] ([id number]) [address] [place] [address] 38255 MCH (RBC) [Entitic mass] 30.4 pg Normal 27-34 [facility] Comment on above: Performed By: #### C BCA, CMP, 69121-1, PINR, 25944-1, 69990-1, 44893-0, 97560-8, THYR #### [facility] ([id number]) [address] [place] [address] 06000 MCHC (RBC) [Mass/Vol] 35.1 g/dL Normal 32-36 [facility] Comment on above: Performed By: #### C BCA, CMP, 83125-3, PINR, 42082-6, 71562-8, 89212-0, 24418-0, THYR #### [facility] ([id number]) [address] [place] [address] 72450 MCV (RBC) [Entitic vol] 87 fL Normal 80-100 [facility] Comment on above: Performed By: #### C BCA, CMP, 19585-0, PINR, 64962-6, 08775-4, 22173-4, 25289-2, THYR #### [facility] ([id number]) [address] [place] [address] 42259 Monocytes (Bld) [#/Vol] 0.6 10*3/uL Normal 0-0.9 [facility] Comment on above: Performed By: #### C BCA, CMP, 88043-9, PINR, 79130-4, 45604-0, 23208-6, 04549-4, THYR #### [facility] ([id number]) [address] [place] [address] 00698 Monocytes/100 WBC (Bld) 7.8 % Normal [facility] Comment on above: Performed By: #### C BCA, CMP, 57361-2, PINR, 02604-9, 69230-9, 28769-9, 04814-6, THYR #### [facility] ([id number]) [address] [place] [address] 16574 Neutrophils/100 WBC (Bld) 68.1 % Normal [facility] Comment on above: Performed By: #### C BCA, CMP, 98261-2, PINR, 78474-6, 98231-2, 02059-7, 63521-1, THYR #### [facility] ([id number]) [address] [place] [address] 04113 Platelet mean volume (Bld) [Entitic vol] 8.3 fL Normal 7-12 [facility] Comment on above: Performed By: #### C BCA, CMP, 18659-9, PINR, 12384-4, 54480-6, 31842-2, 76897-6, THYR #### [facility] ([id number]) [address] [place] [address] 36973 Platelets (Bld) [#/Vol] 207 10*3/uL Normal 150-450 [facility] Comment on above: Performed By: #### C BCA, CMP, 50805-5, PINR, 51013-5, 50503-5, 54239-9, 32122-6, THYR #### [facility] ([id number]) [address] [place] [address] 25528 RBC COUNT 4.79 X10E12/L Normal 4.10-5.70 [facility] Comment on above: Performed By: #### C BCA, CMP, 54569-7, PINR, 79122-8, 90790-9, 21565-7, 30103-0, THYR #### [facility] ([id number]) [address] [place] [address] 33360 WBC (Bld) [#/Vol] 7.5 10*3/uL Normal 4.0-11.0 [facility] Comment on above: Performed By: #### C BCA, CMP, 59512-4, PINR, 62745-9, 25719-6, 44286-5, 04917-4, THYR #### [facility] ([id number]) [address] [place], [place] [address] 88266 COMPREHENSIVE METABOLIC PANE Nik 06-01-2023 Albumin [Mass/Vol] 5.0 g/dL Normal 3.2-5.3 [facility] Comment on above: Performed By: #### C BCA, CMP, 39080-8, PINR, 01389-1, 71582-8, 87634-0, 32298-2, THYR #### [facility] ([id number]) [address] [place] [address] 63597 ALP [Catalytic activity/Vol] 90 U/L Normal 39-130 [facility] Comment on above: Performed By: #### C BCA, CMP, 95060-6, PINR, 72979-9, 26327-1, 92212-0, 69447-7, THYR #### [facility] ([id number]) [address] [place] [address] 68974 ALT [Catalytic activity/Vol] 32 U/L Normal 0-40 [facility] Comment on above: Performed By: #### C BCA, CMP, 23417-3, PINR, 03739-2, 59110-4, 70992-3, 28545-5, THYR #### [facility] ([id number]) [address] [place] [address] 02439 Anion gap [Moles/Vol] 7 mmol/L Normal 5-15 [facility] Comment on above: Performed By: #### C BCA, CMP, 67149-4, PINR, 35615-8, 51201-3, 25593-0, 10122-1, THYR #### [facility] ([id number]) [address] [place] [address] [place] [address] AST [Catalytic activity/Vol] 27 U/L Normal 0-41 [facility] Comment on above: Performed By: #### C BCA, CMP, 78800-6, PINR, 98511-5, 43559-8, 09299-0, 72730-1, THYR #### [facility] ([id number]) [address] [place] [address] 68145 Bilirubin [Mass/Vol] 0.8 mg/dL Normal 0.3-1.2 [facility] Comment on above: Performed By: #### C BCA, CMP, 80277-6, PINR, 17605-3, 22080-7, 85969-4, 40473-8, THYR #### [facility] ([id number]) [address] [place] [address] 50163 Calcium [Mass/Vol] 10.1 mg/dL Normal 8.5-10.5 [facility] Comment on above: Performed By: #### C BCA, CMP, 10113-1, PINR, 26928-7, 84751-9, 12236-0, 24183-9, THYR #### [facility] ([id number]) [address] [place] [address] 22955 Chloride [Moles/Vol] 103 mmol/L Normal 98-109 [facility] Comment on above: Performed By: #### C BCA, CMP, 32428-7, PINR, 50910-7, 01891-5, 29196-4, 76820-5, THYR #### [facility] ([id number]) [address] [place] [address] [place] [address] CO2 [Moles/Vol] 24 mmol/L Normal 22-32 [facility] Comment on above: Performed By: #### C BCA, CMP, 07908-0, PINR, 71947-8, 10640-2, 75667-9, 42081-9, THYR #### [facility] ([id number]) [address] [place] [address] 97270 Creatinine [Mass/Vol] 1.18 mg/dL Normal 0.70-1.20 [facility] Comment on above: Result Comment: METH OD TRACEABLE TO IDMS STANDARD Performed By: #### C BCA, CMP, 47090-8, PINR, 74341-4, 50788-5, 23486-4, 75404-8, THYR #### [facility] ([id number]) [address] [place] [address] 82589 GFR/1.73 sq M.predicted among non-blacks MDRD (S/P/Bld) [Vol rate/Area] 78 mL/min/{1.73_m2} Normal >59 [facility] Comment on above: Result Comment: Reported eGFR is based on the CKD-EPI 2020 equation that does not use a race coefficient. Performed By: #### C BCA, CMP, 16890-8, PINR, 78988-3, 20180-9, 21300-9, 68489-3, THYR #### [facility] ([id number]) [address] [place] [address] 47440 Glucose [Mass/Vol] 86 mg/dL Normal 65-99 [facility] Comment on above: Performed By: #### C BCA, CMP, 52949-8, PINR, 77452-2, 38524-6, 96546-6, 46225-8, THYR #### [facility] ([id number]) [address] [place] [address] 16135 Potassium [Moles/Vol] 3.8 mmol/L Normal 3.5-5.0 [facility] Comment on above: Performed By: #### C BCA, CMP, 25586-5, PINR, 33021-6, 19010-6, 33838-3, 33326-6, THYR #### [facility] ([id number]) [address] [place] [address] 79831 Protein [Mass/Vol] 7.8 g/dL Normal 6.0-8.0 [facility] Comment on above: Performed By: #### C BCA, CMP, 89108-7, PINR, 32663-8, 73108-7, 01394-1, 35863-8, THYR #### [facility] ([id number]) [address] [place] [address] 93212 Sodium [Moles/Vol] 134 mmol/L Normal 134-146 [facility] Comment on above: Performed By: #### C BCA, CMP, 92876-3, PINR, 97047-1, 78169-4, 58677-6, 61396-8, THYR #### [facility] ([id number]) [address] [place] [address] 52680 Urea nitrogen [Mass/Vol] 16 mg/dL Normal 5-23 [facility] Comment on above: Performed By: #### C BCA, CMP, 39560-6, PINR, 02119-8, 60365-6, 83887-0, 17892-3, THYR #### [facility] ([id number]) [address] [place] [address] 16386 DRUG SCREEN, URINEon 024 AMPHETAMINE/METHAM P Negative Normal NEG [facility] Comment on above: Result Comment: AMPH /METH screening cut off = 1000 ng/mL Performed By: #### C BCA, CMP, 54416-0, PINR, 34749-4, 19267-0, 75232-6, 28584-1, THYR #### [facility] ([id number]) [address] [place] [address] 00600 BARBITURATES Negative Normal NEG [facility] Comment on above: Result Comment: Yen iturates screening cut off value = 200 ng/mL Performed By: #### C BCA, CMP, 28182-5, PINR, 31255-6, 77911-3, 43687-6, 45882-1, THYR #### [facility] ([id number]) [address] [place] [address] 34160 BENZODIAZEPINES Negative Normal NEG [facility] Comment on above: Result Comment: Carlos odiazepines screening cut off value = 200 ng/mL Performed By: #### C BCA, CMP, 37547-0, PINR, 14001-6, 65423-7, 99571-3, 65640-3, THYR #### [facility] ([id number]) [address] [place] [address] 72234 CANNABINOIDS Negative Normal NEG [facility] Comment on above: Result Comment: Shirlene abinoids/THC screening cut off value = 50 ng/mL Performed By: #### C BCA, CMP, 91038-4, PINR, 21747-3, 92076-4, 99798-1, 24025-5, THYR #### [facility] ([id number]) [address] [place] [address] 67583 COCAINE METABOLITE Negative Normal NEG [facility] Comment on above: Result Comment: Coca ine screening cut off value = 300 ng/mL Performed By: #### C BCA, CMP, 79058-7, PINR, 12872-3, 73669-6, 08202-9, 97746-4, THYR #### [facility] ([id number]) [address] [place] [address] 73086 ECSTASY Negative Normal NEG [facility] Comment on above: Result Comment: Ecst asy screening cut off value = 500 ng/mL This report is intended for use in clinical monitoring or management of patients. Performed By: #### C BCA, CMP, 92145-8, PINR, 67731-7, 71805-8, 20493-4, 12021-0, THYR #### [facility] ([id number]) [address] [place] [address] 63088 METHADONE Negative Normal NEG [facility] Comment on above: Result Comment: Meth adone screening cut off value = 300 ng/mL. Performed By: #### C BCA, CMP, 25782-2, PINR, 98588-9, 54653-8, 80853-3, 14929-6, THYR #### [facility] ([id number]) [address] [place] [address] 17351 OPIATES Negative Normal NEG [facility] Comment on above: Result Comment: Opia yolande screening cut off value = 300 ng/mL NOTE: This test is used for the detection of codeine, hydrocodone (>1000 ng/mL), morphine and hydromorphone (>900 ng/mL) in urine. Performed By: #### C BCA, CMP, 04179-9, PINR, 69567-0, 52876-4, 44622-9, 17533-6, THYR #### [facility] ([id number]) [address] [place] [address] 14156 OXYCODONE Negative Normal [facility] Comment on above: Result Comment: Oxyc odone screening cut off value = 300 ng/mL NOTE: This test is used for the detection of oxycodone and oxymorphone in urine. Performed By: #### C BCA, CMP, 87067-6, PINR, 79624-2, 07671-9, 26579-3, 49672-3, THYR #### [facility] ([id number]) [address] [place] [address] 59234 PHENCYCLIDINE Negative Normal [facility] Comment on above: Result Comment: Phen cyclidine screening cut off value = 25 ng/mL Performed By: #### C BCA, CMP, 18727-1, PINR, 24103-9, 05784-9, 00530-2, 94145-7, THYR #### [facility] ([id number]) [address] [place] [address] 02471 Fibrin D-dimer DDU (PPP) [Ma ss/Vol]on 06-01-2023 D DIMER <150 Normal <255 [facility] Comment on above: Result Comment: Results <255 ng/mL DDU: The presence of a VTE can safely be excluded with a negative D-Dimer result and Wells score. A negative result doesn't exclude the possibility of DIC. The test be repeated along with other diagnostic tests if the patient's symptoms persist or worsen. [email or web address] Performed By: #### C ERIK LONG, 14204-3, PINR, 82302-7, 10380-6, 68947-8, 19881-6, THYR #### [facility] ([id number]) [address] [place] [address] 41953 Lead (BldV) [Mass/Vol]on LEAD, VENOUS 33.8 mcg/dL High <3.5 [facility] Comment on above: Result Comment: NOTE ADDITIONAL INFORMATION Testing performed by Inductively Coupled Plasma-Mass Spectrometry (ICP-MS). This test was developed and its performance characteristics determined by [facility] in a manner consistent with CLIA requirements. This test has not been cleared or approved by the U.S. Food and Drug Administration. Performed By: #### C MERCEDES, CMP, 59151-1, PINR, 09723-0, 17250-4, 63372-5, 12696-0, THYR #### [facility] ([id number]) [address] [place] [address] 82528 MAGNESIUMon 06-01-2023 Magnesium [Mass/Vol] 2.1 mg/dL Normal 1.8-2.6 [facility] Comment on above: Performed By: #### C BCA, CMP, 83521-2, PINR, 15600-1, 93082-6, 04302-1, 89321-9, THYR #### [facility] ([id number]) [address] [place] [address], [place] [address] Natriuretic peptide B [Mass/ Vol]on 06-01-2023 BRN NATRIURETIC PEP <5 Normal <100.0 [facility] Comment on above: Performed By: #### C BCA, CMP, 76583-3, PINR, 44668-9, 92973-9, 20713-1, 54246-3, THYR #### [facility] ([id number]) [address] [place] [address], [place] [address] PROTIME AND INRon 06-01-2023 INR Coag (PPP) [Relative time] 1.1 {INR} Normal 0.8-1.1 [facility] Comment on above: Performed By: #### C BCA, CMP, 16897-7, PINR, 15755-1, 38296-3, 29484-2, 25799-5, THYR #### [facility] ([id number]) [address] [place] [address], [place] [address] PT Coag (PPP) [Time] 12.6 s Normal 9.8-13.2 [facility] Comment on above: Result Comment: NEW REFERENCE RANGE Performed By: #### C BCA, CMP, 74775-1, PINR, 91766-8, 46189-9, 85574-4, 44005-7, THYR #### [facility] ([id number]) [address] [place] [address], [place] [address] THYROID PROFILEon 06-01-2023 Free T4 [Mass/Vol] 0.88 ng/dL Normal 0.61-1.60 [facility] Comment on above: Performed By: #### C BCA, CMP, 62282-2, PINR, 56784-4, 87460-3, 87796-7, 72171-9, THYR #### [facility] ([id number]) [address] [place] [address] 96526 TSH 1.27 uIU/mL Normal 0.49-4.67 [facility] Comment on above: Performed By: #### C BCA, CMP, 43062-7, PINR, 32613-1, 19655-9, 50442-7, 99321-6, THYR #### [facility] ([id number]) [address] [place] [address] 10499 TROPONIN Ion 06-01-2023 Troponin I.cardiac [Mass/Vol] ng/mL Normal 0.00-0.04 [facility] Comment on above: Performed By: #### C BCA, CMP, 73933-3, PINR, 26440-5, 55252-8, 89929-1, 87050-5, THYR #### [facility] ([id number]) [address] [place] [address] [place] [address] URN MACROSCOPIC NURon 2023 BILIRUBIN FITO Negative Normal NEG [facility] Comment on above: Performed By: #### C BCA, CMP, 03123-2, PINR, 53428-4, 26652-5, 06108-7, 39209-9, THYR #### [facility] ([id number]) [address] [place] [address] [place] [address] BLOOD/HGB FITO Negative Normal NEG [facility] Comment on above: Performed By: #### C BCA, CMP, 20690-1, PINR, 10248-2, 98387-1, 99456-9, 92813-6, THYR #### [facility] ([id number]) [address] [place] [address] [place] [address] GLUCOSE FITO Negative Normal NEG [facility] Comment on above: Performed By: #### C BCA, CMP, 03404-1, PINR, 87038-8, 92082-0, 35273-2, 79689-7, THYR #### [facility] ([id number]) [address] [place] [address] 53532 KETONES FITO 40 mg/dL Abnormal NEG [facility] Comment on above: Performed By: #### C BCA, CMP, 43319-6, PINR, 71092-5, 87578-4, 59094-9, 27666-4, THYR #### [facility] ([id number]) [address] [place] [address] 58718 LEUKOCYTE ESTERASE FITO Negative Normal NEG [facility] Comment on above: Performed By: #### C BCA, CMP, 55820-7, PINR, 15737-4, 90779-2, 64565-5, 36742-2, THYR #### [facility] ([id number]) [address] [place] [address] 46528 NITRITE FITO Negative Normal NEG [facility] Comment on above: Performed By: #### C BCA, CMP, 18657-2, PINR, 55623-1, 67905-7, 64522-8, 18912-9, THYR #### [facility] ([id number]) [address] [place] [address] 55225 PH FITO 5.5 Normal 5.0-8.5 [facility] Comment on above: Performed By: #### C BCA, CMP, 56421-5, PINR, 32485-8, 79509-5, 47093-9, 30402-5, THYR #### [facility] ([id number]) [address] [place] [address] 69281 PROTEIN FITO Negative Normal NEG [facility] Comment on above: Performed By: #### C BCA, CMP, 56601-1, PINR, 09360-1, 91324-1, 39966-3, 23105-1, THYR #### [facility] ([id number]) [address] [place] [address] 31076 SPECIFIC GRAVITY FITO 1.025 Normal 1.003-1.035 [facility] Comment on above: Performed By: #### C BCA, CMP, 45560-7, PINR, 31109-2, 66990-3, 06129-3, 61087-9, THYR #### [facility] ([id number]) [address] [place] [address] 96289 UROBILINOGEN FITO 0.2 eu/dL Normal <1.1 [facility] Comment on above: Performed By: #### C BCA, CMP, 79077-8, PINR, 53038-7, 10148-0, 38198-9, 72326-1, THYR #### [facility] ([id number]) [address] [place] [address] 38739 XR CHEST 1 VWon 06-01-2023 XR CHEST [...] Pardo DO on 06/01/2023 3:32 PM Normal [facility] aPTT Coag (PPP) [Time]on aPTT Coag (Bld) [Time] 35 s Normal 26-37 [facility] Comment on above: Result Comment: NEW REFERENCE RANGE Performed By: #### C BCA, CMP, 36956-3, PINR, 15294-2, 97431-9, 28462-5, 16789-6, THYR #### [facility] ([id number]) [address] [place] [address] 43352 LEAD,ADULTon 09-05-2022 Lead, Blood (Adult) 45.4 ug/dL Invalid Interpretation Code 0.0-3.4 [facility] Comment on above: Result Comment: Test ing performed by Inductively coupled plasma/Mass Spectrometry. Verified by repeat analysis Analysis by inductively coupled plasma/mass spectrometry (ICP/MS) Environmental Exposure: WHO Recommendation <20.0 Occupational Exposure: OSHA Lead Std 40.0 CHAZ 30.0 . Detection Limit = 1.0 Performed By: #### L EADA #### [facility] [address] [place] [address] Dr. Rachel Cortez LEAD,ADULTon 09-01-2022 Lead, Blood (Adult) CLOTWB Normal [facility] Comment on above: Result [...] 1.0 Performed By: #### I NSULIN #### [facility] [address] [place] [address] Dr. Rachel Cortez LEAD,ADULTon 08-30-2022 Lead, Blood (Adult) CLOTWB Normal [facility] Comment on above: Result [...] 1.0 Performed By: #### L EADA #### [facility] [address] [place] [address] Dr. Rachel Cortez BNPon 08-29-2022 Natriuretic peptide B (Bld) [Mass/Vol] 10.0 pg/mL Normal <=450.0 [facility] Comment on above: Performed By: #### C MP, TSH, BNP #### [facility] [address] [place] [address] Dr. Rachel Cortez CBC AUTO DIFFon 08-29-2022 BASO # 0.0 103/ul Normal 0.0-0.1 [facility] Comment on above: Performed By: #### C BC #### [facility] [address] [place] [address] Dr. Rachel Cortez Basophils/100 WBC (Bld) 0.5 % Normal 0.2-2.0 [facility] Comment on above: Performed By: #### C BC #### [facility] [address] [place] [address] Dr. Rachel Cortez EO # 0.2 103/ul Normal 0.0-0.7 [facility] Comment on above: Performed By: #### C BC #### [facility] [address] [place] [address] Dr. Rachel Cortez Eosinophils/100 WBC (Bld) 2.7 % Normal 0.9-7.0 [facility] Comment on above: Performed By: #### C BC #### [facility] [address] [place] [address] Dr. Rachel Cortez Erythrocyte distribution width (RBC) [Ratio] 12.3 % Normal 11.0-15.0 [facility] Comment on above: Performed By: #### C BC #### [facility] [address] [place] [address] Dr. Rachel Cortez Hematocrit (Bld) [Volume fraction] 40.9 % Critically low 42.0-54.0 [facility] Comment on above: Performed By: #### C BC #### [facility] [address] [place] [address] Dr. Rachel Cortez Hemoglobin (Bld) [Mass/Vol] 13.9 g/dL Critically low 14.0-18.0 [facility] Comment on above: Performed By: #### C BC #### [facility] [address] [place] [address] Dr. Rachel Cortez IG # 0.02 10e3/ul Normal 0.00-0.03 [facility] Comment on above: Performed By: #### C BC #### [facility] [address] [place] [address] Dr. Rachel Cortez IG % 0.3 % Normal 0.0-0.5 [facility] Comment on above: Performed By: #### C BC #### [facility] [address] [place] [address] Dr. Rachel Cortez LYMPH # 1.6 103/ul Normal 1.2-3.8 [facility] Comment on above: Performed By: #### C BC #### [facility] [address] [place] [address] Dr. Rachel Cortez Lymphocytes/100 WBC (Bld) 21.2 % Normal 20.5-60.0 [facility] Comment on above: Performed By: #### C BC #### [facility] [address] [place] [address] Dr. Rachel Cortez MANUAL DIFF REQ NO Normal [facility] Comment on above: Performed By: #### C BC #### [facility] [address] [place] [address] Dr. Rachel Cortez MCH (RBC) [Entitic mass] 30.3 pg Normal 25.9-34.0 [facility] Comment on above: Performed By: #### C BC #### [facility] [address] [place] [address] Dr. Rachel Cortez MCHC (RBC) [Mass/Vol] 34.0 g/dL Normal 29.9-35.2 [facility] Comment on above: Performed By: #### C BC #### [facility] [address] [place] [address] Dr. Rachel Cortez MCV (RBC) [Entitic vol] 89.3 fL Normal 80.0-94.0 [facility] Comment on above: Performed By: #### C BC #### [facility] [address] [place] [address] Dr. Rachel Cortez MONO # 0.6 103/ul Normal 0.3-0.8 [facility] Comment on above: Performed By: #### C BC #### [facility] [address] [place] [address] Dr. Rachel Cortez Monocytes/100 WBC (Bld) 8.6 % Normal 1.7-12.0 [facility] Comment on above: Performed By: #### C BC #### [facility] [address] [place] [address] Dr. Rachel Cortez NEUT # 5.0 103/ul Normal 1.4-6.5 [facility] Comment on above: Performed By: #### C BC #### [facility] [address] [place] [address] Dr. Rachel Cortez Neutrophils/100 WBC (Bld) 66.7 % Normal 43.0-75.0 [facility] Comment on above: Performed By: #### C BC #### [facility] [address] [place] [address] Dr. Rachel Cortez Platelet mean volume (Bld) [Entitic vol] 10.2 fL Normal 9.5-13.5 [facility] Comment on above: Performed By: #### C BC #### [facility] [address] [place] [address] Dr. Rachel Cortez PLT 198 103/ul Normal 150-450 [facility] Comment on above: Performed By: #### C BC #### [facility] [address] [place] [address] Dr. Rachel Cortez RBC 4.58 106/ul Critically low 4.70-6.10 [facility] Comment on above: Performed By: #### C BC #### [facility] [address] [place] [address] Dr. Rachel Cortez WBC 7.5 103/ul Normal 4.0-11.0 [facility] Comment on above: Performed By: #### C BC #### [facility] [address] [place] [address] Dr. Rachel Cortez FREE T4on 08-29-2022 Free T4 [Mass/Vol] 0.84 ng/dL Normal 0.76-1.46 [facility] Comment on above: Performed By: #### I KANDIS FT4 #### [facility] [address] [place] [address] Dr. Rachel Rob 08-29-2022 Iron [Mass/Vol] 86.0 ug/dL Normal 65.0-175.0 [facility] Comment on above: Performed By: #### I KANDIS, FT4 #### [facility] [address] [place] [address] Dr. Rachel Cortez PROF 14(COMP METB)on 023 Albumin [Mass/Vol] 4.0 g/dL Normal 3.4-5.0 [facility] Comment on above: Performed By: #### C MP, TSH, BNP #### [facility] [address] [place] [address] Dr. Rachel Cortez Albumin/Globulin [Mass ratio] 1.2 {ratio} Normal [facility] Comment on above: Performed By: #### C MP, TSH, BNP #### [facility] [address] [place] [address] Dr. Rachel Cortez ALP [Catalytic activity/Vol] 103 U/L Normal 46-116 [facility] Comment on above: Performed By: #### C MP, TSH, BNP #### [facility] [address] [place] [address] Dr. Rachel Cortez ALT [Catalytic activity/Vol] 39 U/L Normal 16-63 [facility] Comment on above: Performed By: #### C MP, TSH, BNP #### [facility] [address] [place] [address] Dr. Rachel Cortez Anion gap [Moles/Vol] 10.2 mmol/L Normal [facility] Comment on above: Performed By: #### C MP, TSH, BNP #### [facility] [address] [place] [address] Dr. Rachel Cortez AST [Catalytic activity/Vol] 20 U/L Normal 15-37 [facility] Comment on above: Performed By: #### C MP, TSH, BNP #### [facility] [address] [address] [address] Rachel Cortez Bilirubin [Mass/Vol] 0.3 mg/dL Normal 0.2-1.0 [facility] Comment on above: Performed By: #### C MP, TSH, BNP #### [facility] [address] [address] [address] Rachel Cortez Calcium [Mass/Vol] 9.8 mg/dL Normal 8.5-10.1 [facility] Comment on above: Performed By: #### C MP, TSH, BNP #### [facility] [address] [place] [address] Dr. Rachel Cortez Chloride [Moles/Vol] 105 mmol/L Normal 98-107 [facility] Comment on above: Performed By: #### C MP, TSH, BNP #### [facility] [address] [place] [address] Dr. Rachel Cortez CO2 [Moles/Vol] 29.9 mmol/L Normal 21.0-32.0 [facility] Comment on above: Performed By: #### C MP, TSH, BNP #### [facility] [address] [place] [address] Dr. Rachel Cortez Creatinine [Mass/Vol] 1.19 mg/dL Normal 0.70-1.30 [facility] Comment on above: Performed By: #### C MP, TSH, BNP #### [facility] [address] [place] [address] Dr. Rachel Cortez EGFR-AF AZERBAIJANI >60 Normal >=60 [facility] Comment on above: Performed By: #### C MP, TSH, BNP #### [facility] [address] [place] [address] Dr. Rachel Cortez EGFR-NON AF AZERBAIJANI >60 Normal >=60 [facility] Comment on above: Performed By: #### C MP, TSH, BNP #### [facility] [address] [place] [address] Dr. Rachel Cortez Globulin (S) [Mass/Vol] 3.4 g/dL Normal [facility] Comment on above: Performed By: #### C MP, TSH, BNP #### [facility] [address] [place] [address] Dr. Rachel Cortez Glucose [Mass/Vol] 105 mg/dL Normal 74-106 [facility] Comment on above: Performed By: #### C MP, TSH, BNP #### [facility] [address] [place] [address] Dr. Rachel Cortez Potassium [Moles/Vol] 4.1 mmol/L Normal 3.5-5.1 [facility] Comment on above: Performed By: #### C MP, TSH, BNP #### [facility] [address] [place] [address] Dr. Rachel Cortez Protein [Mass/Vol] 7.4 g/dL Normal 6.4-8.2 [facility] Comment on above: Performed By: #### C MP, TSH, BNP #### [facility] [address] [place] [address] Dr. Rachel Cortez Sodium [Moles/Vol] 141 mmol/L Normal 136-145 [facility] Comment on above: Performed By: #### C MP, TSH, BNP #### [facility] [address] [place] [address] Dr. Rachel Cortez Urea nitrogen [Mass/Vol] 16.0 mg/dL Normal 7.0-18.0 [facility] Comment on above: Performed By: #### C MP, TSH, BNP #### [facility] [address] [place] [address] Dr. Rachel Cortez Urea nitrogen/Creatinin e [Mass ratio] 13.4 mg/mg Normal [facility] Comment on above: Performed By: #### C MP, TSH, BNP #### [facility] [address] [place] [address] Dr. Rachel Cortez TSHon 08-29-2022 TSH 0.978 uIU/mL Normal 0.358-3.740 [facility] Comment on above: Performed By: #### I NSULIN #### [facility] [address] [place] [address] FACIAL BONES WO [...] WILFRID CAMARENA Date: 2022-08-11 18:30 Normal The [facility] CT HEAD WO CONon 08-11-2022 CT [...] MARLYS MUNOZ Date: 2022-08-11 19:49 Normal [facility] INSULINon 05-09-2022 Insulin 9.9 uIU/mL Normal 2.6-24.9 [facility] Comment on above: Performed By: #### I NSULIN #### [facility] [address] [place] [address] Dr. Rachel Cortez CBC AUTO DIFFon 05-07-2022 BASO # 0.1 103/ul Normal 0.0-0.1 [facility] Comment on above: Performed By: #### I NSULIN #### [facility] [address] [place] [address] Dr. Rachel Cortez Basophils/100 WBC (Bld) 0.7 % Normal 0.2-2.0 [facility] Comment on above: Performed By: #### I NSULIN #### [facility] [address] [place] [address] Dr. Rachel Cortez EO # 0.0 103/ul Normal 0.0-0.7 [facility] Comment on above: Performed By: #### I NSULIN #### [facility] [address] [place] [address] Dr. Rachel Cortez Eosinophils/100 WBC (Bld) 0.1 % Critically low 0.9-7.0 [facility] Comment on above: Performed By: #### I NSULIN #### [facility] [address] [place] [address] Dr. Rachel Cortez Erythrocyte distribution width (RBC) [Ratio] 12.2 % Normal 11.0-15.0 [facility] Comment on above: Performed By: #### I NSULIN #### [facility] [address] [place] [address] Dr. Rachel Cortez Hematocrit (Bld) [Volume fraction] 41.1 % Critically low 42.0-54.0 [facility] Comment on above: Performed By: #### I NSULIN #### [facility] [address] [place] [address] Dr. Rachel Cortez Hemoglobin (Bld) [Mass/Vol] 14.1 g/dL Normal 14.0-18.0 [facility] Comment on above: Performed By: #### I NSULIN #### [facility] [address] [place] [address] Dr. Rachel Cortez IG # 0.03 10e3/ul Normal 0.00-0.03 [facility] Comment on above: Performed By: #### I NSULIN #### [facility] [address] [place] [address] Dr. Rachel Cortez IG % 0.4 % Normal 0.0-0.5 [facility] Comment on above: Performed By: #### I NSULIN #### [facility] [address] [place] [address] Dr. Rachel Cortez LYMPH # 2.3 103/ul Normal 1.2-3.8 [facility] Comment on above: Performed By: #### I NSULIN #### [facility] [address] [place] [address] Dr. Rachel Cortez Lymphocytes/100 WBC (Bld) 30.8 % Normal 20.5-60.0 [facility] Comment on above: Performed By: #### I NSULIN #### [facility] [address] [place] [address] Dr. Rachel Cortez MANUAL DIFF REQ NO Normal [facility] Comment on above: Performed By: #### I NSULIN #### [facility] [address] [place] [address] Dr. Rachel Cortez MCH (RBC) [Entitic mass] 29.9 pg Normal 25.9-34.0 [facility] Comment on above: Performed By: #### I NSULIN #### [facility] [address] [place] [address] Dr. Rachel Cortez MCHC (RBC) [Mass/Vol] 34.3 g/dL Normal 29.9-35.2 [facility] Comment on above: Performed By: #### I NSULIN #### [facility] [address] [place] [address] Dr. Rachel Cortez MCV (RBC) [Entitic vol] 87.3 fL Normal 80.0-94.0 [facility] Comment on above: Performed By: #### I NSULIN #### [facility] [address] [place] [address] Dr. Rachel Cortez MONO # 0.7 103/ul Normal 0.3-0.8 [facility] Comment on above: Performed By: #### I NSULIN #### [facility] [address] [place] [address] Dr. Rachel Cortez Monocytes/100 WBC (Bld) 8.9 % Normal 1.7-12.0 [facility] Comment on above: Performed By: #### I NSULIN #### [facility] [address] [place] [address] Dr. Rachel Cortez NEUT # 4.3 103/ul Normal 1.4-6.5 [facility] Comment on above: Performed By: #### I NSULIN #### [facility] [address] [place] [address] Dr. Rachel Cortez Neutrophils/100 WBC (Bld) 59.1 % Normal 43.0-75.0 [facility] Comment on above: Performed By: #### I NSULIN #### [facility] [address] [place] [address] Dr. Rachel Cortez Platelet mean volume (Bld) [Entitic vol] 9.9 fL Normal 9.5-13.5 [facility] Comment on above: Performed By: #### I NSULIN #### [facility] [address] [place] [address] Dr. Rachel Cortez PLT 184 103/ul Normal 150-450 [facility] Comment on above: Performed By: #### I NSULIN #### [facility] [address] [place] [address] Dr. Rachel Cortez RBC 4.71 106/ul Normal 4.70-6.10 [facility] Comment on above: Performed By: #### I NSULIN #### [facility] [address] [place] [address] Dr. Rachel Cortez WBC 7.3 103/ul Normal 4.0-11.0 [facility] Comment on above: Performed By: #### I NSULIN #### [facility] [address] [place] [address] Dr. Rachel Cortez CULTURE URINEon 05-07-2022 CULTURE URINE Culture Observations : LIGHT GROWTH OF MIXED SKIN NILES. NO POTENTIAL PATHOGENS SEEN. Normal [facility] Comment on above: Performed By: #### I NSULIN #### [facility] [address] [place] [address] Dr. Rachel Cortez FREE THYROXINE INDEX T7on FTI 2.07 Normal 1.30-4.50 [facility] Comment on above: Performed By: #### I NSULIN #### [facility] [address] [address] [address] Rachel Cortez T3U 35.0 % Normal 33.0-40.0 [facility] Comment on above: Performed By: #### I NSULIN #### [facility] [address] [address] [address] Rachel Cortez T4 [Mass/Vol] 5.90 ug/dL Normal 4.50-12.10 [facility] Comment on above: Performed By: #### I NSULIN #### [facility] [address] [address] [address] Rachel Cortez GLYCOHEMOGLOBIN A1Con 2022 ADA RECOMMENDATION SEE BELOW Normal [facility] Comment on above: Result Comment: ADA RECOMMENDED LIMIT 4.0 - 6.0 ADA THERAPEUTIC TARGET < 7.0 ACTION SUGGESTED > 7.0 Performed By: #### A 1C #### [facility] [address] [address] [address] Rachel Cortez Glucose [Mass/Vol] 100 mg/dL Normal [facility] Comment on above: Performed By: #### A 1C #### [facility] [address] [address] [address] Rachel Cortez HbA1c (Bld) [Mass fraction] 5.1 % Normal 4.5-6.2 [facility] Comment on above: Performed By: #### A 1C #### [facility] [address] [address] [address] Rachel Cortez IRONon 05-07-2022 Iron [Mass/Vol] 104.0 ug/dL Normal 65.0-175.0 [facility] Comment on above: Performed By: #### I NSULIN #### [facility] [address] [place] [address] Dr. Rachel Cortez LIPID PROFILEon 05-07-2022 CHOL-HDL RATIO NORM SEE BELOW Normal [facility] Comment on above: Result Comment: 3.3 - 4.4 LOW RISK 4.4 - 7.1 AVERAGE RISK 7.1 - 11.0 MODERATE RISK >11.0 HIGH RISK Performed By: #### C MP, LIPID #### [facility] [address] [address] [address] Rachel Cortez Cholesterol [Mass/Vol] 147 mg/dL Normal <=200 [facility] Comment on above: Performed By: #### C MP, LIPID #### [facility] [address] [address] [address] Rachel Cortez Cholesterol in HDL [Mass/Vol] 56 mg/dL Normal 40-60 [facility] Comment on above: Performed By: #### C MP, LIPID #### [facility] [address] [place] [address] Dr. Rachel Cortez Cholesterol in LDL [Mass/Vol] 77.8 mg/dL Normal [facility] Comment on above: Performed By: #### C MP, LIPID #### [facility] [address] [place] [address] Dr. Rachel Cortez Cholesterol.total/ Cholesterol in HDL [Mass ratio] 2.6 {ratio} Normal [facility] Comment on above: Performed By: #### C MP, LIPID #### [facility] [address] [place] [address] Dr. Rachel Cortez HDL NORMAL > or = 60 mg/dl - LO W CARDIOVASCULAR RISK <40 mg/dl - HIGH CARDIOVASCULAR RISK Normal [facility] Comment on above: Performed By: #### C MP, LIPID #### [facility] [address] [place] [address] Dr. Rachel Cortez LDL CALC NORMAL SEE BELOW Normal [facility] Comment on above: Result Comment: <100 mg/dl OPTIMAL 100 - 129 mg/dl NEAR OR ABOVE OPTIMAL 130 - 159 mg/dl BORDERLINE HIGH 160 - 189 mg/dl HIGH >190 mg/dl VERY HIGH Performed By: #### C MP, LIPID #### [facility] [address] [place] [address] Dr. Rachel Cortez Triglyceride [Mass/Vol] 66 mg/dL Normal <=150 [facility] Comment on above: Performed By: #### C MP, LIPID #### [facility] [address] [address] [address] Rachel Cortez VLDL CALC 13.2 mg/dL Normal [facility] Comment on above: Performed By: #### C MP, LIPID #### [facility] [address] [address] [address] Rachel Cortez PROF 14(COMP METB)on 023 Albumin [Mass/Vol] 4.0 g/dL Normal 3.4-5.0 [facility] Comment on above: Performed By: #### C MP, LIPID #### [facility] [address] [place] [address] Dr. Rachel Cortez Albumin/Globulin [Mass ratio] 1.3 {ratio} Normal [facility] Comment on above: Performed By: #### C MP, LIPID #### [facility] [address] [place] [address] Dr. Rachel Cortez ALP [Catalytic activity/Vol] 86 U/L Normal 46-116 [facility] Comment on above: Performed By: #### C MP, LIPID #### [facility] [address] [place] [address] Dr. Rachel Cortez ALT [Catalytic activity/Vol] 35 U/L Normal 16-63 [facility] Comment on above: Performed By: #### C MP, LIPID #### [facility] [address] [place] [address] Dr. Rachel Cortez Anion gap [Moles/Vol] 9.9 mmol/L Normal [facility] Comment on above: Performed By: #### C MP, LIPID #### [facility] [address] [place] [address] Dr. Rachel Cortez AST [Catalytic activity/Vol] 22 U/L Normal 15-37 [facility] Comment on above: Performed By: #### C MP, LIPID #### [facility] [address] [address] [address] Rachel Cortez Bilirubin [Mass/Vol] 0.4 mg/dL Normal 0.2-1.0 [facility] Comment on above: Performed By: #### C MP, LIPID #### [facility] [address] [address] [address] Rachel Cortez Calcium [Mass/Vol] 10.1 mg/dL Normal 8.5-10.1 [facility] Comment on above: Performed By: #### C MP, LIPID #### [facility] [address] [address] [address] Rachel Cortez Chloride [Moles/Vol] 107 mmol/L Normal 98-107 [facility] Comment on above: Performed By: #### C MP, LIPID #### [facility] [address] [place] [address] Dr. Rachel Cortez CO2 [Moles/Vol] 30.0 mmol/L Normal 21.0-32.0 [facility] Comment on above: Performed By: #### C MP, LIPID #### [facility] [address] [place] [address] Dr. Rachel Cortez Creatinine [Mass/Vol] 1.16 mg/dL Normal 0.70-1.30 [facility] Comment on above: Performed By: #### C MP, LIPID #### [facility] [address] [place] [address] Dr. Rachel Cortez EGFR-AF AZERBAIJANI >60 Normal >=60 [facility] Comment on above: Performed By: #### C MP, LIPID #### [facility] [address] [place] [address] Dr. Rachel Cortez EGFR-NON AF AZERBAIJANI >60 Normal >=60 [facility] Comment on above: Performed By: #### C MP, LIPID #### [facility] [address] [place] [address] Dr. Rachel Cortez Globulin (S) [Mass/Vol] 3.0 g/dL Normal [facility] Comment on above: Performed By: #### C MP, LIPID #### [facility] [address] [place] [address] Dr. Rachel Cortez Glucose [Mass/Vol] 88 mg/dL Normal 74-106 [facility] Comment on above: Performed By: #### C MP, LIPID #### [facility] [address] [address] [address] Rachel Cortez Potassium [Moles/Vol] 3.9 mmol/L Normal 3.5-5.1 [facility] Comment on above: Performed By: #### C MP, LIPID #### [facility] [address] [place] [address] Dr. Rachel Cortez Protein [Mass/Vol] 7.0 g/dL Normal 6.4-8.2 [facility] Comment on above: Performed By: #### C MP, LIPID #### [facility] [address] [place] [address] Dr. Rachel Cortez Sodium [Moles/Vol] 143 mmol/L Normal 136-145 [facility] Comment on above: Performed By: #### C MP, LIPID #### [facility] [address] [place] [address] Dr. Rachel Cortez Urea nitrogen [Mass/Vol] 16.0 mg/dL Normal 7.0-18.0 [facility] Comment on above: Performed By: #### C MP, LIPID #### [facility] [address] [place] [address] Dr. Rachel Cortez Urea nitrogen/Creatinin e [Mass ratio] 13.8 mg/mg Normal [facility] Comment on above: Performed By: #### C MP, LIPID #### [facility] [address] [place] [address] Dr. Rachel Cortez TSHon 05-07-2022 TSH 2.417 uIU/mL Normal 0.358-3.740 [facility] Comment on above: Performed By: #### I NSULIN #### [facility] [address] [place] [address] Dr. Rachel Cortez UA RANDOM W/MICROSCOPICon BACTERIA NONE SEEN Normal NONE SEEN [facility] Comment on above: Performed By: #### I NSULIN #### [facility] [address] [place] [address] Dr. Rachel Cortez Bilirubin Ql (U) Negative Normal NEGATIVE [facility] Comment on above: Performed By: #### I NSULIN #### [facility] [address] [place] [address] Dr. Rachel Cortez CAST NONE SEEN Normal NONE SEEN [facility] Comment on above: Performed By: #### I NSULIN #### [facility] [address] [place] [address] Dr. Rachel Cortez Clarity (U) CLEAR Normal CLEAR [facility] Comment on above: Performed By: #### I NSULIN #### [facility] [address] [place] [address] Dr. Rachel Cortez Color (U) YELLOW Normal YELLOW [facility] Comment on above: Performed By: #### I NSULIN #### [facility] [address] [place] [address] Dr. Rachel Cortez Crystals LM Nom (Urine sed) NONE SEEN Normal NONE SEEN [facility] Comment on above: Performed By: #### I NSULIN #### [facility] [address] [place] [address] Dr. Rachel Cortez Epithelial cells LM Ql (Urine sed) NONE SEEN Normal NONE SEEN /RARE [facility] Comment on above: Performed By: #### I NSULIN #### [facility] [address] [place] [address] Dr. Rachel Cortez Glucose Ql (U) Negative Normal NEGATIVE [facility] Comment on above: Performed By: #### I NSULIN #### [facility] [address] [place] [address] Dr. Rachel Cortez Hemoglobin Ql (U) Negative Normal NEGATIVE [facility] Comment on above: Performed By: #### I NSULIN #### [facility] [address] [place] [address] Dr. Rachel Cortez Ketones Ql (U) Negative Normal NEGATIVE [facility] Comment on above: Performed By: #### I NSULIN #### [facility] [address] [place] [address] Dr. Rachel Cortez LEUKOCYTES Negative Normal NEGATIVE [facility] Comment on above: Performed By: #### I NSULIN #### [facility] [address] [place] [address] Dr. Rachel Cortez MUCOUS MODERATE Abnormal NONE SEEN [facility] Comment on above: Performed By: #### I NSULIN #### [facility] [address] [address] [address] Rachel Cortez Nitrite Ql (U) Negative Normal NEGATIVE [facility] Comment on above: Performed By: #### I NSULIN #### [facility] [address] [place] [address] Dr. Rachel Cortez pH (U) 6.0 [pH] Normal 5-9 [facility] Comment on above: Performed By: #### I NSULIN #### [facility] [address] [place] [address] Dr. Rachel Cortez RBC NONE SEEN Abnormal 0-2 [facility] Comment on above: Performed By: #### I NSULIN #### [facility] [address] [place] [address] Dr. Rachel Cortez SPEC GRAVITY 1.030 Abnormal 1.005-<=1.[address] [facility] Comment on above: Performed By: #### I NSULIN #### [facility] [address] [place] [address] Dr. Rachel Cortez UA PROTEIN Negative Normal NEGATIVE/ TRACE [facility] Comment on above: Performed By: #### I NSULIN #### [facility] [address] [place] [address] Dr. Rachel Cortez Urobilinogen Qn (U) 1.0 {Colby'U}/dL Normal 0.2 - 1.0 [facility] Comment on above: Performed By: #### I NSULIN #### [facility] [address] [place] [address] Dr. Rachel Cortez WBC NONE SEEN Normal NONE SEEN [facility] Comment on above: Performed By: #### I NSULIN #### [facility] [address] [place] [address] Dr. Rachel Cortez XR LSPINE MIN 4 [...] Date: 2022-05-06 16:40 Normal [facility] Vital Signs Date Time Vital Sign Value Performing Clinician Facility 02-26-2024 16:31-0500 Diastolic blood pressure 93 mm[Hg] Kim Sarmini [facility] 02-26-2024 16:31-0500 Heart rate 65 /min Kim Sarmini [facility] 02-26-2024 16:31-0500 Mean blood pressure 104 mm[Hg] Kim Sarmini [facility] 02-26-2024 16:31-0500 Respiratory rate 16 /min Kim Sarmini [facility] 02-26-2024 16:31-0500 SaO2% (BldA) [Mass fraction] 100 % Kim Sarmini [facility] 02-26-2024 16:31-0500 Systolic blood pressure 126 mm[Hg] Kim Sarmini [facility] 02-26-2024 16:16-0500 Body temperature 98.24 [degF] Kim Sarmini [facility] 02-26-2024 16:16-0500 Diastolic blood pressure 78 mm[Hg] Kim Sarmini [facility] 02-26-2024 16:16-0500 Heart rate 59 /min Kim Sarmini [facility] 02-26-2024 16:16-0500 Mean blood pressure 85 mm[Hg] Kim Sarmini [facility] 02-26-2024 16:16-0500 Respiratory rate 18 /min Kim Sarmini [facility] 02-26-2024 16:16-0500 SaO2% (BldA) [Mass fraction] 99 % Kim Sarmini [facility] 02-26-2024 16:16-0500 Systolic blood pressure 98 mm[Hg] Kim Sarmini [facility] 02-26-2024 16:10-0500 Diastolic blood pressure 63 mm[Hg] Kim Sarmini [facility] 02-26-2024 16:10-0500 Heart rate 56 /min Kim Sarmini [facility] 02-26-2024 16:10-0500 Respiratory rate 18 /min Kim Sarmini [facility] 02-26-2024 16:10-0500 SaO2% (BldA) [Mass fraction] 99 % Kim Sarmini [facility] 02-26-2024 16:10-0500 Systolic blood pressure 102 mm[Hg] Kim Sarmini [facility] 02-26-2024 16:05-0500 Respiratory rate 18 /min Kim Sarmini [facility] 02-26-2024 13:57-0500 Blood Pressure Location Kim Sarmini [facility] 02-26-2024 13:57-0500 Body temperature 98.24 [degF] Kim Sarmini [facility] 02-26-2024 13:57-0500 Respiratory rate 16 /min Kim Sarmini [facility] 02-01-2024 14:42-0400 Blood Pressure Location Kim Sarmini [facility] 02-01-2024 14:42-0400 Diastolic blood pressure 78 mm[Hg] Kim Sarmini [facility] 02-01-2024 14:42-0400 Heart rate 80 /min Kim Sarmini [facility] 02-01-2024 14:42-0400 Respiratory rate 18 /min Kim Sarmini [facility] 02-01-2024 14:42-0400 Systolic blood pressure 108 mm[Hg] Kim Sarmini [facility] 08-02-2023 15:48-0400 Body height 177.8 cm Ji Fajardo MD Work Phone: [facility] 08-02-2023 15:48-0400 Body weight 72.45 kg Ji Fajardo MD Work Phone: [facility] 08-02-2023 15:48-0400 Diastolic blood pressure 74 mm[Hg] Ji Fajardo MD Work Phone: [facility] 08-02-2023 15:48-0400 Heart rate 74 /min Ji Fajardo MD Work Phone: [facility] 08-02-2023 15:48-0400 Respiratory rate 18 /min Ji Fajardo MD Work Phone: [facility] 08-02-2023 15:48-0400 SaO2% (BldA) [Mass fraction] 98 % Ji Fajardo MD Work Phone: [facility] 08-02-2023 15:48-0400 Systolic blood pressure 115 mm[Hg] Ji Fajardo MD Work Phone: [facility] Encounters Encounter Date Encounter Type Care Provider Facility Start: 10-03-2024 End: 10-03-2024 Telephone encounter Mitzi Schmidt [facility] Start: 08-20-2024 End: 08-20-2024 Orders Only Viv Parrish [facility]OP [facility] Comment on above: SOB (shortness of br eath) (Primary Dx) Start: 08-15-2024 End: 08-15-2024 Lab Drop off Kim Talal Sarmini [facility] Start: 08-15-2024 End: 08-15-2024 ambulatory Kim Talal Sarmini [facility] Start: 07-31-2024 End: 07-31-2024 ambulatory Kim Talal Sarmini Facility:[facility] Start: 07-05-2024 End: 07-05-2024 ambulatory SANDRA [facility] Start: 05-13-2024 ambulatory Kim Talal Sarmini Facility:[facility] Start: 03-11-2024 End: 03-11-2024 ambulatory Kim Talal Sarmini Facility:[facility] Start: 03-11-2024 End: 03-11-2024 Patient encounter procedure Kim Talal Sarmini [facility] Start: 02-26-2024 End: 02-26-2024 ambulatory Kim Talal Sarmini Facility[facility] Start: 02-26-2024 End: 02-26-2024 Patient encounter procedure Kim Talal Sarmini [facility] Start: 02-09-2024 End: 02-09-2024 Documentation procedure Magda Benitez [facility] Start: 02-08-2024 End: 02-08-2024 Documentation procedure Magdaabdoulaye Benitez [facility] Comment on above: Lead toxicity, accid ental or unintentional, initial encounter (Primary Dx) Start: 02-01-2024 End: 02-01-2024 ambulatory Kim Talal Sarmini Facility:[facility] Start: 02-01-2024 End: 02-01-2024 Patient encounter procedure Kim Talal Sarmini [facility] Start: 01-05-2024 ambulatory Kim Sarmini Facili ty:[facility] Start: 01-02-2024 ambulatory Kim Sarmini Facili ty:[facility] Start: 12-18-2023 End: 12-19-2023 [facility] Start: 08-10-2023 End: 08-10-2023 ambulatory JI [facility] Facility:[facility] Start: 08-10-2023 End: 08-10-2023 ambulatory Jean Av PT Work Phone: Physical Therapy Comment on above: Dizziness Start: 08-08-2023 End: 08-08-2023 ambulatory JAMAR STOCK [facility] Start: 08-04-2023 Telephone encounter Ji Magdaleno Neurology [facility] Comment on above: Workers comp Start: 08-03-2023 End: 08-03-2023 ambulatory JI FAJARDO Facility:[facility] Start: 08-03-2023 End: 08-03-2023 Subsequent hospital visit by physician [facility] Mary (1.5t) Work Phone: Radiology Comment on above: Worsening headaches [R51.9] Start: 08-02-2023 End: 08-02-2023 ambulatory JI FAJARDO Facility:[facility] Start: 08-02-2023 End: 08-02-2023 Office outpatient new 45 minutes Ji Fajardo MD Work Phone: Neurology Headache [facility] Comment on above: Worsening headaches (Primary Dx); Dizziness; Toxic effect of lead, accidental or unintentional, initial encounter Start: 08-02-2023 Telephone encounter Ji Magdaleno [facility] Start: 08-01-2023 ambulatory Digna Chavez RN [facility] Start: 08-01-2023 Patient encounter procedure Digna Chavez RN NURSE [employer] OFFICER Comment on above: Referral Request Start: 06-02-2023 End: 06-03-2023 ambulatory JOHN MEEKS [facility] Start: 06-01-2023 End: 06-03-2023 Emergency department patient visit MAINE BURGOS [facility] Start: 06-01-2023 End: 06-02-2023 ambulatory IRENA JEFFERY [facility] Start: 09-01-2022 End: 09-02-2022 ambulatory [...] Detail Performing Clinician Start: 02-26-2024 Colonoscopy Julio Trinh Start: 02-26-2024 Esophagogastroduodenoscopy Julio chavez Start: 08-03-2023 Mri brain brain stem w/o w/contrast material Ji Fajardo MD Work Phone: Start: 05-07-[address] IRENA JEFFERY . Comment on above: Performed By: #### LEADA #### [facility] [address] [address] [address] Rachel Cortez Plan of Treatment Date Care Activity Detail Author Start: 06-02-2026 Diabetes Screening Diabetes Screenin [facility] Start: 12-23-2024 Influenza vaccination Influenza Vacc ine [facility] Start: 10-07-2024 End: 10-07-2024 Patient encounter procedure 10/07/2024 1:00 PM EDT Office Visit [facility] [address] [place] [address] Deo Mendez MD [address] [facility] [place] [address] [facility] Start: 08-20-2024 End: 08-20-2025 XR Chest PA and Lateral X-ray chest 2 views Imaging Routine SOB (shortness of breath) Expected: 08/20/2024, Expires: 08/20/2025 [facility] Work Phone: Comment on above: Expected: 08/20/2024 , Expires: 08/20/2025 Start: 06-02-2024 Adult BMI Screening Adult BMI Screen ing [facility] Start: 06-01-2024 Tobacco Screening Tobacco Screening [facility] Start: 12-24-2023 Covid-19 Vaccine ( season) Covid-19 Vaccine ( season) [facility] Start: 12-24-2023 Influenza vaccination [facility] Start: 11-08-2023 End: 11-08-2023 Patient encounter procedure 11/08/2023 11:00 AM EDT Office Visit Neurology [address] [place] [address] Gina Dooley, SHOPPER MARKETING MANAGER.ASSISTANT COACH [address] [place] [address] Neurology Start: 07-29-2023 Diabetes Screening Diabetes Screenin g [facility] Start: 07-29-2023 Screening for malign ant neoplasm of colon [facility] Start: 04-24-2023 Behavioral Health Screening Behavioral Health Screening [facility] Start: 12-23-2022 Covid-19 Vaccine ( season) Covid-19 Vaccine ( season) [facility] Start: 2013 Lipid panel Lipid Screening [facility] Start: 1997 DTaP,Tdap and Td Vaccines (1 - Tdap) DTaP,Tdap and Td Vaccines (1 - Tdap) [facility] Start: 1997 Hepatitis B Vaccine (1 of 3 - 19+ 3-dose series) Hepatitis B Vaccine (1 of 3 - 19+ 3-dose series) [facility] Start: 1997 Urine microalbumin profile DTaP,Tdap,Td Vaccine (1 - Tdap) [facility] Start: 1996 Anxiety Screening Anxiety Screening [facility] Start: 1996 Depression Screening Depression Scre [facility] Start: 1996 Hepatitis C screening Hepatitis C Sc reening [facility] Start: 1996 HIV screening HIV Screening [facility] Start: 1990 Depression Screening Depression Scre [facility] End: 08-20-2025 Pulmonary function test Complete PFT w/ BD (Spirometry (Flow Volume Loop) pre/post short acting bronchodilator w/ DLCO (diffusion study) and Lung Volume) Pulmonary function test Complete PFT w/ BD (Spirometry (Flow Volume Loop) pre/post short acting bronchodilator w/ DLCO (diffusion study) and Lung Volume) PFT Routine SOB (shortness of breath) 1 Occurrences starting 08/20/2024 until 08/20/2025 [employer] Work Phone: Comment on above: 1 Occurrences starti ng 08/20/2024 until 08/20/2025 [facility] Payers Date Payer Category Payer Unknown [id number] 2023 Unknown [id number] 2022 Unknown [id number] 2022 Unknown [id number] 2022 [employer] [facility] Member Subscriber Plan / Payer (Effective 2022-Present) Name: Rey Baxter Relation to Subscriber: Self Name: Rey Baxter Payer ID: Not on file Type: Not on file Address: [place] [id number] 2020 Self-pay 1980 Unknown [id number] [id number]. 593 1978 Unknown [id number] 2.16.840.1.121170.3.579.2. 593 1978 Unknown [id number] 2.16.840.1.823881.3.579.2. 593 1978 Unknown [id number] 2.16.840.1.077151.3.579.2. 593 1978 Unknown [id number] 2.16.840.1.262292.3.579.2. 593 1978 Unknown [id number] 2.16.840.1.952152.3.579.2. 593 1978 Unknown [id number] 2.16.840.1.106205.3.579.2. 1286 1978 Unknown [id number] 2.16.840.1.684992.3.579.2. 1286 1978 Unknown [id number] 2.16.840.1.341810.3.579.2. 1286 1978 Unknown [id number] 2.16.840.1.736507.3.579.2. 727 1978 Unknown [id number] 2.16.840.1.452248.3.579.2. 727 1978 Unknown [id number] 2.16.840.1.427805.3.579.2. 7 1978 Unknown [id number] 2.16.840.1.643036.3.579.2. 1978 Unknown [id number] 2.16.840.1.968478.3.579.2. 1978 Unknown [id number] 2.16.840.1.611534.3.579.2. 1978 Unknown [id number] 2.16.840.1.155285.3.579.2 1978 Unknown [id number] 2.16.840.1.864655.3.579.2. 727 1959 Unknown [id number] Social History Date Type Detail Facility Tobacco smoking stat us WVIS Tobacco smoking consumption unknown [facility] Start: 1980 Sex Assigned At Not on file [facility] Start: 10-03-2018 End: 08-02-2023 Gender identity Not on file [facility] Start: 06-01-2023 End: 08-02-2023 Tobacco smoking status WVIS Never smoked tobacco [facility] Start: 06-01-2023 End: 08-02-2023 Tobacco use and exposure Smokeless tobacco non-user [facility] Start: 10-03-2018 End: 08-02-2023 History of Social function [facility] National Score (1-10 0), lower number is lower risk 73 [facility] Start: 06-01-2023 Alcoholic beverage intake Ex-drinker (finding) [facility] Start: 11-27-2014 End: 05-26-2018 Sex Male (finding) [facility] Sexual Orientation [facility] Goals Date Patient Goal Desired Activity /State Personal health goal Comment on above: Formatting of this n ote might be different from the original. Evaluation of progress towards goal: awaiting test results Functional Status Date Assessment Result Facility 02-26-2024 Functional Status N/A [facility] 02-01-2024 Functional Status N/A [facility] Clinical Notes 08-01-2023 to 10-03-2024 Telephone Encounter - Mitzi Schmidt CMA - 10/03/2024 10:42 AM EDTTelephone Encounter - Mitzi Schmidt CMA - 10/03/2024 10:42 AM EDTTelephone Encounter - Nahomi Agnieszka - 08/20/2024 2:21 PM EDT Note Date & Type Note Facility 10-03-2024 Miscellaneous Notes Maintenance Controller called and spoke with patient regarding appointment on 10/07 with [facility] in [place]. Maintenance Controller asked patient if he had his CXR and PFT done elsewhere. Patient said they had their CXR done at [place] a month ago and has the disc with the images but has not has not scheduled the PFT. Patient was advised to take disc to radiology so they can upload into [facility] and was also given the number for central scheduling to get the PFT scheduled. Patient was asked to call office back once the PFT is scheduled to let us know. Patient was advised the appointment will need to be rescheduled once PFT is scheduled. Patient understood. documented in this encounter [facility] 10-03-2024 Telephone encounter Note Maintenance Controller called and spoke with patient regarding appointment on 10/07 with [facility] in [place]. Maintenance Controller asked patient if he had his CXR and PFT done elsewhere. Patient said they had their CXR done at [place] a month ago and has the disc with the images but has not has not scheduled the PFT. Patient was advised to take disc to radiology so they can upload into [facility] and was also given the number for central scheduling to get the PFT scheduled. Patient was asked to call office back once the PFT is scheduled to let us know. Patient was advised the appointment will need to be rescheduled once PFT is scheduled. Patient understood. [facility] 08-23-2024 Note Nurse Consultation N ote Assessment/Plan 1. H. pylori infection (A04.8: Other specified bacterial intestinal infections) presents today for h. pylori breath test. Confirmed with patient that they has not had anything to drink or smoked in the last hour or been on PPIs or antibiotics in the past 2 weeks. Patient blew into pre indigestion bag, drank solution and waited 15 minutes, patient blew into post indigestion bag. Patient tolerated testing well with no issues. Made patient aware that we will call with her results when we receive them. Medications famotidine 40 mg Tab Ibgard 90 mg oral delayed release capsule, 180 mg= 2 cap(s), Oral, BID, 3 refills Pantopraz[address] Tab sucralfate 1 g Tab, Not taking Wellbutrin XL 300 mg/24 hours Tab-ER, Oral, q24hr Allergies No Known Allergies [facility] 08-20-2024 Miscellaneous Notes New patient scheduled 10/07 with [facility] in [place] for SOB. Will need cxr/pft orders. Thanks! documented in this encounter [facility] 08-20-2024 Telephone encounter Note New patient scheduled 10/07 with [facility] in [place] for SOB. Will need cxr/pft orders. Thanks! [facility] 08-15-2024 Evaluation + Plan note Diagnostic Tests PendingH. pylori Breath Test 08/15/24 [facility] 07-05-2024 Note SUBJECTIVE Reason for Visit: Rey Baxter is a 43 y.o. year old male patient being seen for follow-up visit. HPI: Rey Baxter is a 43-year-old male with a history of lumbar radiculopathy, GERD, obstructive sleep apnea (HERIBERTO), fatigue, paroxysmal atrial fibrillation (AFib), and lead toxicity, referred for further evaluation of AFib. He was seen at [facility] in May 2023, where he was apparently found to be in AFib with rapid ventricular response, though no EKG is available for confirmation. According to the cardiology note, he spontaneously converted to sinus rhythm. He was started on Eliquis 5 mg BID and aspirin 81 mg daily. He was seen by Mitul HERNANDEZ on 06/01/2023, at which time a 30-day event monitor was ordered. The patient reports chronic fatigue, chest pain, dyspnea, and exertional shortness of breath. He has a history of occupational lead exposure and was diagnosed with elevated blood lead levels, receiving Workmen's Compensation. However, he has not been referred to a heavy metal specialist nor offered detoxification therapy. He continues to experience chest pain with numbness radiating to the jaw and left upper extremity, palpitations, lightheadedness, and dizziness. He had a syncopal episode prior to his ER visit, where he was diagnosed with AFib. He notes that tachycardia episodes are associated with chest discomfort. A 30-day event monitor (06/21/2023 - 07/21/2023) showed frequent PACs and couplets. Patient-triggered episodes were all sinus rhythm, with the fastest recorded rate at 160 bpm on 06/30/2023, noted as long RP tachycardia. There was a 7.2-second pause on 06/22/2023, likely due to loss of signal from poor contact. No episodes of AFib or ventricular tachycardia were detected. A stress test on 07/04/2023 showed no perfusion defects, no ischemia on EKG, and no evidence of chronotropic incompetence. EKG on 06/01/2023 showed sinus rhythm with PACs. 07/05/2024 office visit follow-up: The patient is seen in the office for a follow-up visit, presenting with chest pain, dizziness, and palpitations as his primary concerns. He specifically attributes these symptoms to his work-related lead exposure in July 2021. Despite consulting multiple physicians, he has not received a definitive explanation for the underlying cause of his symptoms, leading to ongoing frustration. 12/18/2023 office visit (Dr. Tomlin): Patient presents for follow up today. Overall, he is feeling better. No complaints. Chest pain has largely resolved. No shortness of breath. Continues to have some palpitations. Past Medical History: Diagnosis Date Atrial fibrillation (CMS/HCC) GERD (gastroesophageal reflux disease) Sleep apnea Past Surgical History: Procedure Laterality Date FINGER SURGERY Left pinky Patient Active Problem List Diagnosis A-fib (CMS/HCC) Bigeminy Acute cystitis Colon polyps Elevated blood lead level Gastroesophageal reflux disease family history includes Diabetes in an other family member; Lupus in his mother; Muscular dystrophy in his mother. Social History Tobacco Use Smoking status: Never Passive exposure: Never Smokeless tobacco: Never Substance Use Topics Alcohol use: Yes Drug use: Not Currently OBJECTIVE Visit Vitals BP 115/76 (BP Location: Right arm, Patient Position: Sitting) Pulse 89 Ht 1.778 m (5' 10 ) Wt 76.7 kg (169 lb) SpO2 97% BMI 24.25 kg/m??? Smoking Status Never BSA 1.95 m??? Physical Exam Constitutional: General Appearance: well-developed, appears stated age. Level of Distress: no acute distress. Neck: Jugular Veins: normal jugular venous pressure. Lungs: Auscultation: no rales or rhonchi and normal breath sounds. Cardiovascular: Rate And Rhythm: regular. Heart Sounds: normal S1 and s2; Systolic Murmur: not heard. Diastolic Murmur: not heard. Extremities: no edema Peripheral Pulses: Pulses: full and equal in all extremities except if noted. Abdomen: Inspection and Palpation: non distended or tender and soft. Musculoskeletal: Inspection: no joint tenderness or swelling. Neurologic: Gait: normal gait. Psychiatric: Mental Status: alert and normal affect. Skin: Inspection and Palpation: warm and dry. Allergies: No Known Allergies Outpatient Medications: Current Outpatient Medications Medication Instructions buPROPion XL (WELLBUTRIN XL) 300 mg, oral, Every morning cetirizine (ZYRTEC) 10 mg, oral, Daily pantoprazole (Protonix) 40 mg EC tablet Every 12 hours sucralfate (Carafate) 1 gram tablet Every 6 hours Recent Labs: No visits with results within 6 Month(s) from this visit. Latest known visit with results is: No results found for any previous visit. I have personally reviewed and interpreted the following laboratory results: CBC, CMP, lipid profile, and any additional relevant lab work available at this time. These findings have been analyzed in the context of the patient's clinical (more content not included)... [facility] 02-26-2024 Hospital Discharge instructions Patient Education 02/26/2024 [...] reduce GERD symptoms. Medicines. These may include: ?Floi-obc-kolotdy antacids. ?Medicines that make your stomach empty [...] may include: ?Fatty foods, like fried foods. ?[place] fruits, like oranges or lemon. ?Other foods [...] Do not drink alcohol. General instructions Take aubm-znj-mzaxgia and prescription medicines only as told by [...] provider. Document Revised: 06/07/2022 Document Reviewed: 06/07/2022 [employer] Patient Education 2023 [employer]. 02/26/2024 16:20:33 Gastritis, Adult, Bhns-fv-Drkq Gastritis, Adult Gastritis is irritation and swelling [...] Follow these instructions at home: Medicines Take qrpb-ylg-hwxdfbt and prescription medicines only as told by [...] provider. Document Revised: 08/14/2021 Document Reviewed: 08/14/2021 [employer] Patient Education 2023 [employer]. 02/26/2024 16:20:32 Endoscopy, Care After Procedure [facility] Endoscopy Care After Procedure Please [...] blood. Document Released: 11/22/2004 Document Re-Released: 10/02/2006 [facility] Patient Information 2010 [employer]. 02/26/2024 16:20:30 Hemorrhoids, Bpal-qy-Xfdi Hemorrhoids Hemorrhoids are swollen veins that may [...] Follow these instructions at home: Medicines Take cpbl-nix-yrbvtsz and prescription medicines only as told by [...] provider. Document Revised: 12/21/2022 Document Reviewed: 12/21/2022 [employer] Patient Education 2023 [employer] 02/26/2024 16:20:27 Colon Polyps Colon Polyps [...] hard liquor (44 mL). General instructions Take krba-ahz-jxbtjnu and prescription medicines only as told by [...] provider. Document Revised: 07/29/2020 Document Reviewed: 07/29/2020 [employer] Patient Education 2023 [employer] 02/26/2024 16:20:26 Colonoscopy, Care After Surgery Salam [...] gets worse throughout the day. [facility] 02-26-2024 Note Progress Note-Physic issa Patient: REY BAXTER Age: 43 years Sex: Male : 1980 Associated Diagnoses: None Author: Malachi Garcia MD Postoperative Information Postoperative disposition: Postoperative disposition: To PACU. Optimetrix number: Optimetrix number [id number]. Anesthetic utilized: General. Health Status Allergies: Allergic [...] when meets criteria ( To home ). [facility] Comment on above: Result Comment: Elec [...] day(s), # 60 cap(s), Refills(s) 3, Pharmacy: [id number], 178, cm, 02/01/24 14:47:00 EDT, Height/Length [...] All Problems Acute cystitis / SNOMED CT 162025761 / Confirmed Atrial fibrillation / SNOMED CT 51606080 / Confirmed Blood lead level above reference range / SNOMED CT 8131408427 / Confirmed Gastritis / SNOMED CT 5120921 / Confirmed Gastroenteritis / SNOMED CT 52174293 / Confirmed Gastroesophageal reflux disease / SNOMED CT 580465346 / Confirmed Inguinal lymphadenopathy / SNOMED CT 549890 / Confirmed Intussusception of small bowel / SNOMED CT 0124757258 / Confirmed Left lower quadrant pain / SNOMED CT 653291139 / Confirmed Lumbar radiculopathy / SNOMED CT 884082741 / Confirmed Obstructive sleep apnea syndrome / SNOMED CT 583465318 / Confirmed Osteoarthritis of knee / SNOMED CT 080192597 / Confirmed Paroxysmal atrial fibrillation / SNOMED CT 133103285 / Confirmed Pleuri (more content not included)... [facility] Comment on above: Result Comment: Benji renan Signed By: Jose ROTH, Malachi Rojas\.br\Date and [...] Document Re-Released: 10/02/2006 ExitCare??? Patient Information ???2009 [employer]. Colonoscopy Care After Surgery Please read the [...] with a weaknes (more content not included)... [facility] 02-26-2024 Note Endoscopic Procedure Report - Other Patient: REY BAXTER Age: 43 years Sex: Male : 1980 Associated Diagnoses: None Author: Julio Trinh MD Pre-Procedure Procedure Date 02/26/2024 16:14:00 . Procedure Type: Colonoscopy with removal of tumor(s), polyp(s), or other lesion(s) by cold snare technique. Procedure provider Performed by Julio Trinh MD. Current history and physical Documented on [...] day(s), # 60 cap(s), Refills(s) 3, Pharmacy: [id number] 178, cm, 02/01/24 14:47:00 EDT, Height/Length [...] Normal examined terminal ileum Images Procedure images: Rec_hd_video__22_34_602. jpg Rec_hd_video___19_505. jpg Rec_hd_video___09_083. jpg Rec_hd_video___48_624. jpg Rec_hd_video___32_251. jpg Rec_hd_video__12_56_411. jpg Rec_hd_video__04T16_12_22_128. jpg . Post-Procedure Complications: none. Nyasia (more content not included)... [facility] Comment on above: Result Comment: Elec tronically Signed By: Julio Trinh MD\.br\Date and Time Signed: 02/26/24 16:16 EST Other Comment: Cynthia ng Attachment - attachment storage system not supported [id number] Can be viewed in source system Missing Attachment - attachment storage system not supported [id number] Can be viewed in source system Missing Attachment - attachment storage system not supported [id number] Can be viewed in source system Missing Attachment - attachment storage system not supported 3604526 Can be viewed in source system Missing Attachment - attachment storage system not supported 7665084 Can be viewed in source system Missing Attachment - attachment storage system not supported 1211735 Can be viewed in source system Missing Attachment - attachment storage system not supported 4581725 Can be viewed in source system 02-26-2024 Note Endoscopic Procedure Report - Other Patient: REY BAXTER Age: 43 years Sex: Male : 1980 Associated Diagnoses: None Author: Julio Trinh MD Pre-Procedure Procedure Date 02/26/2024 15:55:00 . Procedure Type: Esophagogastroduodenoscopy with biopsy. Procedure provider Performed by Julio Trinh MD. Current history and physical Documented on [...] rule out celiac disease Images Procedure images: Rec1_hd_video_2023__T1__53_306. jpg Rec1_hd_video_2023____35_015. jpg Rec1_hd_video_2023__T16_03_53_396. jpg Rec1_hd_video_2023__T16_03_39_773. jpg Rec1_hd_video_2023__T1__44_682. jpg Rec1_hd_video_2023__T16__37_632. jpg Rec1_hd_video_2023__T1__15_752. jpg . Post-Procedure Complications: none. Estimated blood loss: [...] in GI clinic in 1-2 after discharge [facility] Comment on above: Result Comment: Elec tronically Signed By: Elías ROTH, Julio Pond\.br\Date and Time Signed: 02/26/24 15:56 EST Other Comment: Cynthia johnson Attachment - attachment storage system not supported [id number] Can be viewed in source system Missing Attachment - attachment storage system not supported 8155149 Can be viewed in source system Missing Attachment - attachment storage system not supported 6213817 Can be viewed in source system Missing Attachment - attachment storage system not supported 5951207 Can be viewed in source system Missing Attachment - attachment storage system not supported 4209209 Can be viewed in source system Missing Attachment - attachment storage system not supported 6233254 Can be viewed in source system Missing Attachment - attachment storage system not supported 7621890 Can be viewed in source system 02-26-2024 [...] day(s), # 60 cap(s), Refills(s) 3, Pharmacy: [id number], 178, cm, 02/01/24 14:47:00 EDT, Height/Length [...] All Problems Atrial fibrillation / SNOMED CT 23989358 / Confirmed Acute cystitis / SNOMED CT 327381644 / Confirmed Gastritis / SNOMED CT 3884351 / Confirmed Gastroenteritis / SNOMED CT 82837787 / Confirmed Gastroesophageal reflux disease / SNOMED CT 527120774 / Confirmed Blood lead level above reference range / SNOMED CT 6180237587 / Confirmed Left lower quadrant pain / SNOMED CT 763120562 / Confirmed Inguinal lymphadenopathy / SNOMED CT 409300 / Confirmed Obstructive sleep apnea syndrome / SNOMED CT 813713813 / Confirmed Osteoarthritis of knee / SNOMED CT 805672671 / Confirmed Lumbar radiculopathy / SNOMED CT 044998636 / Confirmed Paroxysmal atrial fibrillation / SNOMED CT 826073701 / Confirmed Ventricular bigeminy / SNOMED CT 45272576 / Confirmed Urinary incontinence / SNOMED CT 9394282248 / Confirmed Right upper quadrant pain / SNOMED CT 319840694 / Confirmed Pleurisy / SNOMED CT 371819733 / Confirmed Intussusception of small bowel / SNOMED CT 3354870956 / Confirmed Screen for colon cancer / SNOMED CT 242118506 / Confirmed Histories Past Medical History: No [...] Substance Abuse 02/01/20 (more content not included)... [facility] Comment on above: Result Comment: Elec tronically Signed By: Elías ROTH, Julio Pond\.margarito\Date and Time Signed: 02/26/24 15:50 EST 02-26-2024 Evaluation + Plan note Extrac mary from: Title:ANES Post-operative Note---General Author: Malachi Garcia MD Date:02/26/24 Plan Transfer/Discharge: Transfer/Discharge Discharge when meets criteria ( To home ). Extracted from: Title:ANES Pre-operative Note 2022 Author:Malachi Mcclain Date:02/26/24 Plan [place] [employer]hesi[employer] (ASA) physical status classification: Class III. Anesthetic Preoperative Plan: Anesthesia General. Extracted from: Title:1Preop H&P Author:Julio Trinh MD Date:02/26/24 Impression and Plan Impression: gerd, anemia, screening Plan: -EGD and Colonoscopy Future Appointments Appointment Date:03/11/2024 09:30:00 AM Scheduled Provider:Julio Trinh MD [place] Type:[facility] Follow Up [facility] [id number] History of Present illness Narrative* Magda Benitez LPN - 02/09/2024 9:40 AM EDT LVM for Fara Kim at [facility] to notify that office is not [facility] certified and can not accept pt. Left return call back number if any questions or concerns arise. Magda BELLE Benign Hematology [facility] History of Present illness Narrative* Magda Benitez LPN - 02/08/2024 9:49 AM EDT Received referral for Dr. Mart from [facility]. Order placed in system and referral scanned into chart. Note written in referral, staff needs to check if Dr. Mart is [facility] certified and if so referral office needs to place a C9. Magda BELLE Benign Hematology documented in [facility] encounter[facility]08-[facility]-2024 NoteUT Electrophysiology Consult Note Reason for visit: afib, chest pain , palpitations HPI: Rey Baxter is a 43 y.o. year old with past medical history of Lumbar radiculopathy, GERD, HERIBERTO, fatigue, paroxysmal A-fib,, lead toxicity. Patient was referred to our clinic for A-fib he was seen recently at [facility] and was found to be in A-fib RVR, No EKG to confirm but per the cardiology note patient spontaneously converted to sinus rhythm. He was placed on Eliquis 5 mg twice daily and ASA 81mg. he was seen by Mitul HERNANDEZ on 06/01/2023 and a 30-day event [...] lead toxicity Patient was referred to [facility] but it seems as though no [...] Murmur: not heard Extrem (more content not included)...[facility] 08-10-2023 NoteHNO ID: [id number] Author: JEAN LEY PT Service: ? Author [...] Planned: (4) Planned Treatment Interventions: Neuromuscular re-education (88949), Manual therapy (67723), Therapeutic activities (80319), Self-retirement management (85784), Therapeutic exercise (59074), Patient/Family/Caregiver Education PLAN FOR NEXT VISIT: Patient [...] WITH LEVEL OF FUNCTION: Positional Testing Left [place]: Asymptomatic Right Nylen Barany: Asymptomatic Supine Head [...] Gait and vertical head (more content not included)...[facility] 08-10-2023 History of Present illness Narrative* Jean Ley, PT - 08/10/2023 10:06 AM EDT Program_ID:[id number] Access Code: [email or web address] URL: [email or web address] Date: 08-10-2023 Prepared By: Jean Ley Program [...] Planned: (4) Planned Treatment Interventions: Neuromuscular re-education (55362), Manual therapy (79566), Therapeutic activities (56431), Self-retirement management (63120), Therapeutic exercise (99915), Patient/Family/Caregiver Education PLAN FOR NEXT VISIT: Patient [...] WITH LEVEL OF FUNCTION: Positional Testing Left [place]: Asymptomatic Right Nylen Barany: Asymptomatic Supine Head [...] States/Identifies, Return Demonstration TREATMENT: PT Treatment Interventions: Self-Longterm Management, Manual Therapy, Neuromuscular Re-Education Evaluation Therapeutic [...] 932 Jean Ley PT [facility] NoteUT Electrophysiology Consult Note Reason for visit: afib, chest pain , palpitations HPI: Rey Baxter is a 43 y.o. year old with past medical history of Lumbar radiculopathy, GERD, HERIBERTO, fatigue, paroxysmal A-fib,, lead toxicity. Patient was referred to our clinic for A-fib he was seen recently at [facility] and was found to be in A-fib RVR, No EKG to confirm but per the cardiology note patient spontaneously converted to sinus rhythm. He was placed on Eliquis 5 mg twice daily and ASA 81mg. he was seen by Mitul HERNANDEZ on 06/01/2023 and a 30-day event [...] lead toxicity Patient was referred to [facility] but it seems as though no [...] s2, no gallop Systo (more content not included)...[facility] 08-04-2023 Miscellaneous Notes* Telephone Encounter - Zander Denson MA - 08/04/2023 9:08 AM EDT Patient records received via electronic fax. Uploaded to [employer] via [employer]. Please review in scanned documents tab of chart review. Zander Denson MA documented in this encounterAccess [facility]04-11-2024 NoteHNO ID: [id number] Author: MATTHEW BANERJEE CT Service: ? Author [...] PATIENT PRESENTS WITH AN IMPLANTABLE OR ATTACHED VISITOR SERVICES COORDINATOR: No ALLERGIES: Reviewed and unchanged CONTRAST ALLERGY: NO. EXAM: MRI - CONTRAST TYPE: GROUP II PERIPHERAL IV DATA: Ambulatory: A peripheral IV was started in the Left antecubital site with a Angio cath: 24 gauge. RADIOLOGY DEPARTMENT: MR; Exam(s) Completed: Head: Routine Brain SIGNATURE: TATI Tolbert PATIENT NAME: Rey Baxter DATE: August 03, 2023 TIME: 3:06 [facility]04-11-2024 History of Present illness Narrative* Matthew Banerjee [...] PATIENT PRESENTS WITH AN IMPLANTABLE OR ATTACHED VISITOR SERVICES COORDINATOR: No ALLERGIES: Reviewed and unchanged CONTRAST ALLERGY: NO. EXAM: MRI - CONTRAST TYPE: GROUP II PERIPHERAL IV DATA: Ambulatory: A peripheral IV was started in the Left antecubital site with a Angio cath: 24 gauge. RADIOLOGY DEPARTMENT: MR; Exam(s) Completed: Head: Routine Brain SIGNATURE: TATI Tolbert PATIENT NAME: Rey Baxter DATE: August 03, 2023 TIME: 3:06 PM documented in this encounterAccess Hospital [facility]04-10-2024 NoteHNO ID: [id number] Author: JI FAJARDO MD Service: ? 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 Lead is not being chelated at [...] worsening headaches. Pt needs MRI-Brain to r/o RADIO PROGRAM DIRECTOR changes from heavy metal toxicity. Pt can trial nortriptyline 10 mg po qhs in the interim for symptomatic relief. Return 3 months or sooner if needed. Ji Fajardo MD August 04, 2023 2:09 PM documented in this encounterAccess [facility] [place]04-09-2024 Miscellaneous Notes* Telephone Encounter - Digna Chavez RN - 08/01/2023 5:12 PM EDT Patient calling with request for physician referral: Patient referred to Neurology Department. . Patient denies any new or worsening symptoms of which a provider is not aware: Yes. Ac took call back over for scheduling. [facility] Future Appointments Appointment Date:02/26/2024 02:45:00 PM Scheduled Provider: Location:[facility] Appointment Type:Surgery Appointment Date:03/11/2024 09:30:00 AM Scheduled Provider:Julio Trinh MD [place]ment Type:[facility] Follow Up [facility] Evaluation note* Diagnosis Worsening headaches- Primary Headache Dizziness Dizziness and giddiness Toxic effect of lead, accidental or unintentional, initial encounter documented in [facility] encounter [facility]* Diagnosis Dizziness Dizziness and giddiness documented in [facility] encounter [facility]* Diagnosis Worsening headaches Headache documented in [facility]* Diagnosis Lead toxicity, accidental or unintentional, initial encounter- Primary [facility]* Diagnosis SOB (shortness of breath)- Primary Shortness of breath [facility]* Diagnosis SOB (shortness of breath)- Primary Shortness of breath documented [facility] Narrative No data available for this section [facility] Hospital Discharge instructions No data available for this section [facility] InstructionsNot on filedocumented in this encounter [facility] Zkatter SystemInstructionsNot on filedocumented in this encounter [facility]Progress note No data available for this section [facility] Summary Purpose Family History [...] FoundNo Family History Records Found Advance Directives Date Activated Date Inactivated Comments 06/01/2023 5:40 PM 06/02/2023 8:56 PM Date Activated Date Inactivated Comments 06/01/2023 5:40 PM 06/02/2023 8:56 PM Reason for Referral Specialty Diagnoses / Procedures Referred By Contac t Referred To Contact Diagnoses Worsening headaches Procedures PROVIDER ORDERED FOLLOW UP OFFICE/OUTPATIENT NEW [facility] MDM 60 MINUTES Ji Fajardo MD [address] [place] [address] Referral ID Status Reason Start Date Expiration Date Visits Requested Visits Authorized [id number] Pending Review PCP Requested Referral 11/01/2023 08/01/2024 1 1 Specialty Diagnoses / Procedures Referred By Contac t Referred To Contact [facility] Diagnoses Dizziness Procedures CONSULT TO PHYSICAL THERAPY PHYSICAL THERAPY EVALUATION HIGH COMPLEX 45 MINS Ji Fajardo MD [address] [place] [address] [facility] [place] [address] Referral ID Status Reason Start Date Expiration Date Visits Requested Visits Authorized [id number] Pending Review Auto-Generat ed Referral 08/02/2023 08/01/2024 1 1 Specialty Diagnoses / Procedures Referred By Contac t Referred To Contact MR IMAGING Diagnoses Worsening headaches Procedures MRI BRAIN WO/W IVCON MRI BRAIN BRAIN STEM W/O W/CONTRAST MATERIAL Ji Fajardo MD [address] [place] [address] Mr Imaging [facility] Referral ID Status Reason Start Date Expiration Date V isits Requested Visits Authorized [id number] Closed Auto-Generate d Referral 08/02/2023 08/31/2024 1 1 Additional Source Comments (unrecognized sect ion and content) No Status Records FoundNo Status Records FoundNo Status Records FoundNo Status Records FoundNo Status Records FoundNo Status Records FoundNo Status Records FoundNo Status Records Found INFORMATION SOURCE (unrecogn ized section and content) DATE CREATED AUTHOR 09/05/2022 [facility] DATE CREATED AUTHOR AUTHOR'S ORGANIZ ATION 06/05/2023 [facility] DATE CREATED AUTHOR AUTHOR'S ORGANIZ ATION 08/14/2023 [facility] DATE CREATED AUTHOR AUTHOR'S ORGANIZ ATION 03/06/2024 [facility] DATE CREATED AUTHOR AUTHOR'S ORGANIZ ATION 03/12/2024 [facility] DATE CREATED AUTHOR AUTHOR'S ORGANIZ ATION 2024 [facility] DATE CREATED AUTHOR AUTHOR'S ORGANIZ ATION 08/27/2024 [place] [facility] DATE CREATED AUTHOR AUTHOR'S ORGANIZ ATION 08/28/2024 [facility] Source Comments (unrecognize d section and content) In the event this informatio n is protected by the Federal Confidentiality of Alcohol and Drug Abuse Patient Records regulations: The Federal rules restrict any use of the information to criminally investigate or prosecute any alcohol or drug abuse patient.[facility] DaytonIn the event this information is protected by the Federal Confidentiality of Alcohol and Drug Abuse Patient Records regulations: The Federal rules restrict any use of the information to criminally investigate or prosecute any alcohol or drug abuse patient.[facility] DaytonIn the event this information is protected by the Federal Confidentiality of Alcohol and Drug Abuse Patient Records regulations: The Federal rules restrict any use of the information to criminally investigate or prosecute any alcohol or drug abuse patient.[facility] DaytonIn the event this information is protected by the Federal Confidentiality of Alcohol and Drug Abuse Patient Records regulations: The Federal rules restrict any use of the information to criminally investigate or prosecute any alcohol or drug abuse patient.[facility] DaytonIn the event this information is protected by the Federal Confidentiality of Alcohol and Drug Abuse Patient Records regulations: The Federal rules restrict any use of the information to criminally investigate or prosecute any alcohol or drug abuse patient.[facility] DaytonIn the event this information is protected by the Federal Confidentiality of Alcohol and Drug Abuse Patient Records regulations: The Federal rules restrict any use of the information to criminally investigate or prosecute any alcohol or drug abuse patient.[facility] Reason for Visit (unrecogniz ed section and content) Reason Comments Referral Request Reason Comments Workers comp Reason Comments New Patient Headaches Specialty Diagnoses / Procedures Referred By Contac t Referred To Contact Neurology / HEADACHE Diagnoses Intake Simon / RM 164 GARCIA, Numbness/tingling, Dizziness, Confusion. Procedures NEW NEUR HEADACHE Ashley Foster CNP [address] [place] [address] Ji Fajardo MD [address] [place], [place] [id number] Referral ID Status Reason Start Date Expiration Date V isits Requested Visits Authorized [id number] Authorized 07/10/2023 01/10/2024 2 2 Reason Comments PT Eval Specialty Diagnoses / Procedures Referred By Contac t Referred To Contact [facility] Diagnoses Dizziness Procedures CONSULT TO PHYSICAL THERAPY PHYSICAL THERAPY EVALUATION HIGH COMPLEX 45 MINS Ji Fajardo MD [address] [place], [place] [phone] [facility] [place] [address] Referral ID Status Reason Start Date Expiration Date Visits Requested Visits Authorized [id number] Pending Review Auto-Generat ed Referral 08/02/2023 08/01/2024 1 1 Reason Comments Radiology MRI Specialty Diagnoses / Procedures Referred By Contac t Referred To Contact MR IMAGING Diagnoses Worsening headaches Procedures MRI BRAIN WO/W IVCON MRI BRAIN BRAIN STEM W/O W/CONTRAST MATERIAL Ji Fajardo MD [address] [place] [address] Mr Imaging [place] [address] Referral ID Status Reason Start Date Expiration Date V isits Requested Visits Authorized [id number] Closed Auto-Generate d Referral 08/02/2023 08/31/2024 1 1 Care Teams (unrecognized sec tion and content) Metal Grinder Relationship Specialty Start Date End Date Yoandy Mitul [address] [place] [phone] 06/26/23 Ashley Foster CNP [address] [facility] [place] [address] Referring Family Medicine 07/26/23 Metal Grinder Relationship Specialty Start Date End Date Mitul Pitt [address] [facility] [place] [address] 06/26/23 Ashley Foster CNP [address] [facility] [place] [address] Referring Family Medicine 07/26/23 Metal Grinder Relationship Specialty Start Date End Date Mitul Pitt [address] [facility] [place] [address] 06/26/23 Ashley Foster CNP [address] [facility] [place] [address] Referring Family Medicine 07/26/23 Metal Grinder Relationship Specialty Start Date End Date Mitul Pitt [address] [facility] [place] [address] 06/26/23 Ashley Foster CNP [address] [facility] [place] [address] Referring Family Medicine 07/26/23 Metal Grinder Relationship Specialty Start Date End Date Mitul Pitt [address] [facility] [place] [address] 06/26/23 Ashley Foster CNP [address] [facility] [place] [address] Referring Family Medicine 07/26/23 Metal Grinder Relationship Specialty Start Date End Date PreetiMitul young, DYNAMOMETER TUNER [address] [place] [address] 06/26/23 Cristian Ashley, CNP [address] [place] [address] Referring Family Medicine 07/26/23 Metal Grinder Relationship Specialty Start Date End Date Irena Jeffery MD PCP - General Family Medicine 06/01/23 Metal Grinder Relationship Specialty Start Date End Date Irena Jeffery MD PCP - General Family Medicine 06/01/23 Metal Grinder Relationship Specialty Start Date End Date Irena Jeffery MD PCP - General Family Medicine 06/01/23 Metal Grinder Relationship Specialty Start Date End Date Irena [...] BE BASED ON THE PRIMARY CLINICAL RECORDS. [employer] [facility]. provides no warranty or guarantee of the accuracy or completeness of information in this document.
--- NOTE | 2024-10-03 18:50 | XR_ITS ---
[facility] [place] [address] Patient Name: YAMILET WHITAKER MRN: [id number] date: 1980 Sex: M Assigned Patient Location: ER Current Patient Location: ER Accession/Order Number: [id number] Exam Date: 10/03/2024 19:24 Report Date: 10/03/2024 19:25 At the request of: CASSIE CEBALLOS Procedure: XR knee LT 4V 3 views left knee plain film COMPARISON: 09/20/2023 HISTORY: Medial left knee pain for 4 days. No injury ACUTE FINDINGS: No acute findings DEGENERATIVE CHANGE: Unremarkable SOFT TISSUE FINDINGS: Unremarkable JOINT EFFUSION: None POSTOP CHANGES: None BONE MINERALIZATION: Adequate XR/XR knee LT 4V IMPRESSION: No acute bony findings or significant degeneration. Impression dictated by: Mckinley Palomino M.D. 10/03/2024 7:25 PM Dictation Location: [place] [address] Electronically authenticated by: [id number] Y Date: 10/03/2024 19:25
--- NOTE | 2024-10-03 18:53 | XR_ITS ---
[facility] [place] [id number] Patient Name: YAMILET WHITAKER MRN: [id number] date: 1980 Sex: M Assigned Patient Location: ER Current Patient Location: ER Accession/Order Number: [id number] Exam Date: 10/03/2024 19:25 Report Date: 10/03/2024 19:27 At the request of: CASSIE CEBALLOS Procedure: XR lumbar spine 2-3V 2 views Lumbar Spine HISTORY: Lumbar pain for 4 days. No injury COMPARISON: None POSTSURGICAL CHANGES: None BONY ALIGNMENT: Adequate HYPERMOBILITY:No bending imaging. LISTHESIS:None FRACTURE: None DEGENERATIVE CHANGES: Endplate spurring multiple levels of lumbar spine. Adequate disc spaces. Lower lumbar facet degeneration. SOFT TISSUES: Unremarkable BONY MINERALIZATION:Adequate XR/XR lumbar spine 2-3V IMPRESSION: Degenerative change greatest at the lower facets. Impression dictated by: Mckinley Palomino M.D. 10/03/2024 7:27 PM Dictation Location: [employer] Electronically authenticated by: [id number] Y Date: 10/03/2024 19:27
--- NOTE | 2024-10-03 19:05 | ED.GENADUL1 ---
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 He also has diffuse back pain that started yesterday. Patient denies any injuries denies any falls. Patient denies any fever, chills, cough, congestion, urinary bleeding, rectal bleeding, urinary discomfort. Symptoms worse with motion or walking upstairs. Patient took ibuprofen without relief. Onset (ago): day(s) Location: Reports lower extremity Radiation: Reports extremity Severity: mild Pain Consistency: Reports intermittent Relieving factors: Reports none Exacerbating factors: Reports movement Associated symptoms: Reports denies other symptoms Treatments prior to arrival: Reports NSAID Related Data Home Medications ?Medication ?Instructions ?Recorded ?Confirmed citalopram 20 mg tablet 20 mg PO .QD 06/27/23 06/27/23 Previous Rx's ?Medication ?Instructions ?Recorded hydroxyzine HCl 25 mg tablet 25 mg PO Q8H PRN anxiety #14 tabs 06/27/23 prednisone 20 mg tablet 20 mg PO BID 3 days #6 tabs 10/03/24 tizanidine 4 mg capsule 4 mg PO TID PRN muscle spasm #9 10/03/24 caps Allergies Allergy/AdvReac Type Severity Reaction Status Date / Time No Known Drug Allergies Allergy Verified 10/03/24 18:22 Opioid HPI Opioid Management Most Recent Opioid Data: Last Pain Scale 3 05/18/24, 18:09 Review of Systems ROS Status of ROS 10 or more systems reviewed and unremarkable except as noted in history and below Constitutional Denies: fever or chills Ears, nose, mouth, and throat Denies: throat pain or ear pain Cardiovascular Denies: edema Respiratory Denies: shortness of breath or cough Gastrointestinal Denies: abdominal pain Genitourinary Denies: blood in urine Musculoskeletal Reports: back pain, extremity pain and joint pain; Denies: neck pain, joint swelling or muscle weakness Integumentary/Breast Denies: rash Neurological Denies: weakness in extremities Endocrine Denies: excessive urination Hematologic/Lymphatic Denies: easy bruising PFSH PFSH Social History Smoking status: Never smoker Little interest or pleasure in doing things: not at all Feeling down, depressed, or hopeless: not at all Exam Constitutional Vital Signs, click to edit/add: Last Vital Signs Temp 98.8 F 10/03/24 18:25 Pulse 80 10/03/24 18:25 Resp 18 10/03/24 18:25 BP 135/85 10/03/24 18:25 Pulse Ox 98 10/03/24 18:25 O2 Del Method Room Air 10/03/24 18:25 Documenting provider has reviewed patient's vital signs: yes Common normals: no apparent distress, average body habitus, oriented x3, no limitations, healthy appearing, alert and well nourished [facility] Common normals: normocephalic, head/scalp atraumatic, hearing grossly normal bilaterally, external ears normal, EACs normal, TMs normal bilaterally, external nose normal, moist oral mucous membranes and dentition normal Neck & C-Spine Common normals: full ROM and supple Cervical spine: cervical ROM normal; no cervical spine tenderness Chest Common normals: inspection of chest normal Chest: symmetrical chest wall rise and tenderness (Slight tenderness left pectoral slight tenderness right trapezius); no crepitus Respiratory Common normals: normal respiratory effort, no retractions, no use of accessory muscles and clear to auscultation bilaterally Cardio Common normals: regular rate, regular rhythm, S1 normal heart sound, S2 normal heart sound, no murmurs and peripheral pulses 2+ throughout GI Common normals: Normal to inspection, nondistended, normoactive bowel sounds present, soft to palpation and non-tender Common normals: no CVA tenderness Back & Pelvis Common normals: no CVA tenderness, thoracic and lumbar spine normal to inspection and no thoracic nor lumbar tenderness General back: no CVA tenderness Extremity Common normals: normal to inspection, no joint enlargement and no pedal edema Left lower extremity: knee joint (Tenderness to palpation overlying left medial collateral ligament. ) Other: Tenderness to palpation overlying left medial collateral ligament negative tenderness including right MCL negative Bursa tenderness negative patellar tendon tenderness negative adduction negative abduction negative drawer. Neuro Common normals: oriented x3 and moves all extremities Course Course Hospital Course: X-rays no acute fracture noted see final radiology reports. Vital Signs Vital signs: Vital Signs Temperature 98.8 F 10/03/24 18:25 Pulse Rate 80 10/03/24 18:25 Respiratory Rate 18 10/03/24 18:25 Blood Pressure 135/85 10/03/24 18:25 Pulse Oximetry 98 10/03/24 18:25 Oxygen Delivery Method Room Air 10/03/24 18:25 Temperature 98.8 F 10/03/24 18:25 Pulse Rate 80 10/03/24 18:25 Respiratory Rate 18 10/03/24 18:25 Blood Pressure 135/85 10/03/24 18:25 Pulse Oximetry 98 10/03/24 18:25 Oxygen Delivery Method Room Air 10/03/24 18:25 Medical Decision Making MDM Narrative Medical decision making narrative: X-ray left knee patient request back x-ray states he has had back pain lower which also worsens with bending over and working. Patient denies any urinary bleeding, rectal bleeding, fever, chills, cough, nausea, vomiting. Patient has reproducible musculoskeletal pain. He also notes that he has a history of hiatal hernia has tried Advil without relief. Discussed Patient agreeable plan of care. Reviewed x-rays no acute fracture noted patient amatory in emergency will put provide Montalvo dressing, crutches will prescribe medication bleeding tizanidine 4 mg every 8 hours for 3 days prednisone 40 mg daily x 5 days. Follow-up with orthopedics. Discussed plan of care with patient agreeable plan of care. We discussed do not drive or operate equipment taking medication clued muscle relaxants may cause drowsiness. Differential Diagnosis Differential Diagnosis: Knee sprain, DJD, back pain, musculoskeletal pain. Discharge Plan Discharge Chief Complaint: Extremity Problem, Nontraumatic Clinical Impression: Knee MCL sprain, Muscle spasm, Musculoskeletal back pain Patient Disposition: Home, Self-Care Time of Disposition Decision: 19:42 Mode of Transportation: Private Vehicle Prescriptions / Home Meds: New prednisone 20 mg tablet 20 mg PO BID 3 Days Qty: 6 0RF tizanidine 4 mg capsule 4 mg PO TID PRN (Reason: muscle spasm) Qty: 9 0RF No Action citalopram 20 mg tablet 20 mg PO .QD hydroxyzine HCl 25 mg tablet 25 mg PO Q8H PRN (Reason: anxiety) Qty: 14 0RF Print Language: Sammarinese Instructions: Knee Sprain (DC), Crutch Instructions (ED), Back Pain (ED) Additional Instructions: Follow-up with orthopedics return to if any symptoms worsen or new symptoms developl. Drive or operate a car while taking tizanidine as it may cause drowsiness. Referrals: Jos Gardner MD [Primary Care Provider, Family Practice] - 1 week Martin Gutierrez MD [Physician, Orthopedics] - 1 week
--- NOTE | 2024-10-03 19:27 | PC.NURSE ---
this patient is aware that now waiting on x-ray results to come back. this patient voices no concerns, needs and this patient shows no signs of distress
--- NOTE | 2024-10-03 20:03 | PC.NURSE ---
i gave this patient verbal and written discharge orders along with 2 Rx and this patient voices yes to understanding these. at time of discharge this patient voices no concerns, needs and this patient shows no signs of distress
--- NOTE | 2024-10-03 20:07 | PC.NURSE ---
this patient was given verbal proper crutches training and patient demonstrated correct use of these crutches, and livier wrap placed on this patient's left knee prior to leaving this ER dept.
== END 2024-10-03 20:03 | disposition home or self-care (01) ==
PROVIDERS: Emergency Provider Emergency Medicine; PCP Family Medicine
DX: S83.412A Sprain of medial collateral ligament of left knee, initial encounter (principal); M62.838 Other muscle spasm; M54.50 Low back pain, unspecified; K44.9 Diaphragmatic hernia without obstruction or gangrene; X58.XXXA Exposure to other specified factors, initial encounter
CPT/HCPCS: 72100; 73564; 99284

== ENCOUNTER 2025-02-28 06:45 | Outpatient (OUT) | payer OTHER, SELFPAY ==
--- OUTSIDE RECORDS SUMMARY | 2025-02-21 08:45 | XMS_ITS ---
Author Organization [facility] in [place] Address [address] [place] [address] Care Team Providers Care Pattern Layout Worker Name Role Phone JohnnyTiti vines Primary Care Provider Allergies No Known Allergies REASON FOR VISIT knee pain- wants imaging, Left Knee Pain Medications Medication SIG (Take, Route, Frequency, Duration) Notes Start Date End Date Status Wellbutrin XL 300 MG 1 tablet in the mor ailyn Orally Once a day; Duration: 30 days 4ActiveCeleBREX 200 MG1 capsule with food Orally Once a day; Duration: 30 days5Active Social History Tobacco Use: Social History Observation Description Date Details (start date - stop date) Never Smoker NA - NA Tobacco Control (Standard) Question Answer Notes Tobacco use: Nonsmoker AUDIT-C (Standard) Question Answer Notes Did you have a drink containing alcohol in the p ast year? No Ogfsnw4FvykxhlwstmcbaHnagctgx Problems Problem Type SNOMED Code ICD Code Onset Dates Problem Status W/U Status Risk Notes Problem Derangement of knee (23212406) I nternal derangement of knee, left (M23.92) Activeconfirmed Vital Signs Weight 176.0 lbs 02/21/2025 Height 70 in 02/21/2025 Blood pressure systolic 140 mm Hg 02/22/20 25 Blood pressure diastolic 80 mm Hg 025 BMI 25.25 kg/m2 02/21/2025 Encounters Encounter Location Date Provider Diagnosis [facility] [address] [place] [address] 02/21/2025 Titi Hoy Internal derangement of knee M23.90 and Internal derangement of knee, left M23.92 Assessments Encounter Date Diagnosis (ICD Code) Assessment Notes Treatment Notes Treatment Clinical Notes Section Notes 02/21/2025 Internal derangement of knee (IC D-10 - M23.90) 02/21/2025Internal derangement of knee, left (ICD-10 - M23.92)02/21/2025Other> 3 monts doing home ICe -0 , brace nsaids - celbrex - not improving - actural worse- + Zhane- medial meniscus tear suspected Plan Of Treatment Treatment Notes Assessment Notes Other > 3 monts doing home ICe -0 , brace nsaids - celbrex - not improving - actural worse- + Zhane - medial meniscus tear suspected Pending Test Test Name Order Date MRI KNEE LT WO CON 02/21/2025 Progress Notes * Rey BAXTER SDOB:1980 (44 yo M)Acc No.[id number]:02/21/2025 Progress Note Patient: Rey DAWSON :?Jos Gardner ([facility]), MDDOB:1980???Age: 44 Y???Sex:MaleDate:02/21/2025Phone:[phone]:[address] [place] [id number] In:01:49 PM ESTCheck Out:02:15 PM EST Subjective: * Chief Complaints: * K nee pain- wants imagingLeft Knee Pain * HPI: ???General:? september 2024 - 4 MONTH AGO IWTH PAIN -seen in ER-? and paon prpgressed since that teim[ - taking nsaisd, Ice and? Pain more medially -= evan wiht gping own steps - feel loose. 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, initial encounter Modified On:09/23/2022W/U Status:ibcpecnqwY96.83Fatigue Modified On:11/14/2022/U Status:hsqznzmqoB34.9GERD (gastroesophageal reflux disease) Modified On:09/23/2022/U Status:loichwogcJ62.00Dyspnea Modified On:09/23/2022 Status:kpkrgjenpC06.641Hand pain, right Modified On:09/23/2022 Status:kdiuxylfvR97.16Lumbar radiculopathy Modified On:09/23/2022 Status:vpyomyjltB71Scrksgkcxj Modified On:09/23/2022 Status:wmxhztuuoO37.9Sinusitis Modified On:09/23/2022 Status:sfbimfvzuD77.70Gastritis Modified On:09/23/2022 Status:tychjnfdnK52.9Upper respiratory infection Modified On:09/23/2022 Status:gidtlkqabM32.9Contact dermatitis Modified On:09/23/2022 Status:pnfgnvmfwW59.9Gastroenteritis Modified On:09/23/2022 Status:lxqqktwtsJ20.9Paresthesias/numbness Modified On:09/23/2022 Status:pxzdxnxzlV61.9Acute bronchiolitis Modified On:09/23/2022 Status:tvsewqacaO81.33Mild obstructive sleep apnea Modified On:09/23/2022 Status:eiddkzvrqK51.00Acute cystitis Modified On:09/23/2022 Status:npwywkgrvA12.0Ingrowing nail with infection Modified On:09/23/2022 Status:uuinikfurG77.0Inguinal lymphadenopathy Modified On:09/23/2022 Status:bzsowymueB19.9Exudative pharyngitis Modified On:09/23/2022 Status:zwealwmkjD61Ubviwpaa Modified On:09/23/2022 Status:kmdahfaytD45.1COVID-19 virus infection Modified On:11/14/2022 Status:therahjcxV68.50Low back pain, unspecified Modified On:09/23/2022 Status:jrtohqgxtI30.1Pleurisy Modified On:09/23/2022 Status:frcctofhtA10Uiqytux and collapse Modified On:08/29/2022 Status:rajjwozlzU57.71Abnormal lead level in blood Modified On:11/04/2022U Status:tsgouxoteH41.1COVID-19 Modified On:11/10/2022 Status:vdmbpdekoQ34.569Knee pain Modified On:05/01/2023 Status:imhqlabphG34.90Otitis externa Modified On:05/01/2023 Status:hwuzryzvkR23.0Paroxysmal atrial fibrillation Modified On:06/05/2023 Status:qgzrtfcffI14.8Other specified cardiac arrhythmias Modified On:06/05/2023 Status:atltbccmbW05.1Atrial premature depolarization Modified On:06/05/2023 Status:utxitsstwA79.91Atrial fibrillation Modified On:06/06/2023 Status:vjpcyxmbmM36.32Left lower quadrant abdominal pain Modified On:07/10/2023U Status:byydfbtrmM80.9Chest pain Modified On:07/26/2023 Status:cuiwrfppkB78.90Internal derangement of knee Modified On:09/08/2023U Status:qlwgvpgofO57.9Knee osteoarthritis Modified On:09/20/2023U Status:vuzurngwfL70.11Right upper quadrant abdominal pain Modified On:11/03/2023 Status:rpdyirzexC62.0Panic Modified On:12/12/2023 Status:rtyejrfjnW43.8Anxiety and depression Modified On:02/22/2024U Status:xavuvbepvC39.1Neck mass Modified On:03/13/2024U Status:ppbgysmtvY81.0Head mass Modified On:03/13/2024U Status:ysvjwjytgX78.92Internal derangement of knee, left Modified On:02/24/2025 Status:confirmed * Medical History: * Surgical History: L eft pinky finger * Hospitalization/Major Diagno stic Procedure: L eft pinky finger * Family History: F ather: alive. M other: alive, Lupus, muscular dystrophy. B rother(s): alive. S on(s): diagnosed with Diabetes. 2 brother(s) . 3 son(s) . . * Social History: ???Tobacco Use:?Tobacco Control (Standard)?Tobacco use:?Nonsmoker ???Drug/Alcohol:?AUDIT-C (Standard)?Did you have a drink containing alcohol in the past year??No ?Points?0 ?Interpretation?Negative * Medications: T akingCeleBREX 200 MG Capsule 1 capsule with food Orally Once a day Wellbutrin XL(buPROPion HCl ER (XL)) 300 MG Tablet Extended Release 24 Hour 1 tablet in the morning Orally Once a day Taking CeleBREX 200 MG Capsule 1 capsule with food Orally Once a day Taking Wellbutrin XL(buPROPion HCl ER (XL)) 300 MG Tablet Extended Release 24 Hour 1 tablet in the morning Orally Once a day DiscontinuedDicyclomine HCl 10 MG Capsule 1 capsule Orally QID Famotidine 40 MG Tablet 1 tablet Orally bid Protonix(Pantoprazole Sodium) 40 MG Tablet Delayed Release 1 tablet Orally bid Sucralfate 1 GM Tablet TAKE 1 TABLET BY MOUTH FOUR TIMES DAILY ON AN EMPTY STOMACH Oral Medication List reviewed and reconciled with the patientDiscontinued Dicyclomine HCl 10 MG Capsule 1 capsule Orally QID Discontinued Famotidine 40 MG Tablet 1 tablet Orally bid Discontinued Protonix(Pantoprazole Sodium) 40 MG Tablet Delayed Release 1 tablet Orally bid Discontinued Sucralfate 1 GM Tablet TAKE 1 TABLET BY MOUTH FOUR TIMES DAILY ON AN EMPTY STOMACH Oral Medication List reviewed and reconciled with the patient * Allergies: N .K.D.A.no[Allergies Verified] Objective: * Vitals: W t:176.0lbs, Ht: 70 in, BP:140/80mm Hg, BMI:25.25Index, Ht-cm: 177.8 cm, Wt-k.83 kg. * Examination: ???Lower Extremities: ???Left knee wiht medsil joint line pain and + Mcum,uray consoitent with torn meniscus. Assessment: * Assessment: 1.?Internal derangement of knee - M23.90 (Primary)???2.?Internal derangement of knee, left - M23.92??? Plan: * Treatment: ?Imaging: MRI KNEE LT WO CON Notes: > 3 monts doing home ICe -0 , brace nsaids - celbrex - not improving - actural worse- + Zhane - medial meniscus tear suspected?? * Procedure Codes: * * Sign off status: CompletedVisit Status:?CHK (Check Out) true * Provider: Rasta Gardner ([facility])MD Date: Generated for Printing/FaPathfulg/eTransmitting on:?02/28/2025 06:51 AM EST History and Physical Notes * HPI (History of Present Illness) CategorySub-CategoryDetailNotesCategory NotesGeneral september 2024 - 4 MONTH AGO IWTH PAIN -seen in ER- and paon prpgressed since that teim[ - taking nsaisd, Ice and Pain more medially -= evan wiht gping own steps - feel loose Examination CategorySub-CategoryDetailNotesCategory NotesLower ExtremitiesLeft knee wiht medsil joint line pain and + Mcum,uray consoitent with torn meniscus
--- OUTSIDE RECORDS SUMMARY | 2025-02-28 06:51 | XMS_ITS | Clinical Summary ---
Author Organization [employer] [facility] tem Address [id number] [address] [place] [address] Care Team Providers Care Rotary Operator Name Role Phone Jos Gardner MD Primary Care Provider [phone] Allergies No known active allergies Medications MedicationSigDispense QuantityRefillsLast FilledStart DateEnd DateStatus citalopram (CeleXA) 10 mg tablet Take 1 tablet (10 mg total) by mouth in the morning.Active aspirin 81 mg Take 1 tablet (81 mg total) by mouth in the morning. 30 tablet ctive metoprolol succinate XL (TOPROL XL) 25 mg 24 hr tablet Take 1 tablet (25 mg total) by mouth in the morning. 30 tablet ctive Active Problems ProblemNoted DateDiagnosed DateA-fib06/01/20230258Bspgkkjv19/08/2024 Social History Tobacco UseTypesPacks/DayYears UsedDateSmoking Tobacco: NeverSmokeless Tobacco: Never Tobacco Cessation:Counseling Given: Not Answered Alcohol UseStandard Drinks/WeekCommentsNot Currently0 (1 standard drink = 0.6 oz pure alcohol)ChildcareAnswerDate BeiwxysaIomwzazqoNfdlvwu23/12/2019Employment AnswerDate ElpgiiewEcezkjlstjYyqjcsy07/12/2019Sex and Gender InformationValue Date RecordedSex Assigned at BirthNot on fileLegal HznOvir2711/27/2014 11:58 AM EDTGender IdentityNot on fileSexual OrientationNot on file Last Filed Vital Signs Vital SignReadingTime TakenCommentsBlood Tohomeyr236/7202 4:11 PM EST Lxvzd7018 12:11 PM VZKAbitobfbcfd64.7 ??C (98 ??F)06/02/2023 4:11 PM EST Respiratory Gfnd405406/02/2023 4:11 PM ESTOxygen Xeetzcmvrq78%06/02/2023 4:11 PM ESTInhaled Oxygen Concentration--Xpyhtr75.1 kg (154 lb 8.7 oz)06/02/2023 5:00 AM LTFSjreig561.8 cm (5' 10 )06/01/2023 9:10 PM ESTBody Mass Index22.17006/01/2023 9:10 PM EST Plan of Treatment Health MaintenanceDue DateLast DoneCommentsDepression Rduafzvnc44/06/1991 DTaP,Tdap and Td Vaccines (1 - Tdap)1997Tobacco Dipmhqlqs79/08/2025 06/01/2023dult BMI Gvdgplyfv57/09/74923306/02/2023Influenza Knfzkfb9212/23/2024 Goals GoalPatient Goal TypeAssociated ProblemsRecent ProgressPatient-Stated?Author home Adore Julien LSW Note: Evaluation of progress towards goal: awaiting test results Medical Devices Not on file Insurance Advance Directives * Full Code (Latest Code Status on File) Date ActivatedDate InactivatedComments06/01/2023 5:40 PM2 8:56 PM Care Teams Team MemberRelationshipSpecialtyStart DateEnd Date Jos Gardner MD [facility]01[facility]
--- OUTSIDE RECORDS SUMMARY | 2025-02-28 06:51 | XMS_ITS | Clinical Summary ---
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 AT ONSET OF HEADACHE. MAY REPEAT AFTER 2 HOURS. DO NOT EXCEED 30 MG PER DAY. Do not use on more than 2 days per week to avoid rebound headaches. 9 tablet ctive nortriptyline (PAMELOR) 10 mg capsule Indications:DizzinessTake 1 capsule by mouth daily at bedtime. 90 capsule 104ctive Social History Tobacco UseTypesPacks/DayYears UsedDateSmoking Tobacco: NeverSmokeless Tobacco: NeverArea Deprivation IndexAnswerDate RecordedNational Score (1-100), lower number is lower dcfn598408/02/2023State Score (1-10), lower number is lower risk6 08/02/2023ata from: https://www.neighborhoodatlas.medicine.[facility].edu/. Last address used for [address] [address]/02/2023Sex and Gender Information ValueDate RecordedSex Assigned at BirthNot on fileLegal WmtNqyt1306/26/2023 7:06 AM ESTGender IdentityNot on fileSexual OrientationNot on file Last Filed Vital Signs Vital SignReadingTime TakenCommentsBlood Kmcunkox825/7408/02/2023 3:48 PM EDT Whhmt178608/02/2023 3:48 PM EDTTemperature--Respiratory Doqu728508/02/2023 3:48 PM EDTOxygen Ogotvalbot67%08/02/2023 3:48 PM EDTInhaled Oxygen Concentration-- Vayrpj54.4 kg (159 lb 11.6 oz)08/02/2023 3:48 PM WPHTgucjw084.8 cm (5' 10 ) 08/02/2023 3:48 PM EDTBody Mass Index22.9208/02/2023 3:48 PM EDT Plan of Treatment Health MaintenanceDue DateLast DoneCommentsAnxiety Jfddqrdbd27/06/1997Depression Owmaqnuxq46/06/1997HIV Kfhazvqya58/06/1997Hepatitis C Uqtbirpux17/06/1997 DTaP,Tdap,Td Vaccine (1 - Tdap)1997Hepatitis B Vaccine (1 of 3 - 19+ 3- dose series)1997Lipid Dwfxnrwqe60/06/2014CT Qbgsazumowmp84/06/2024 Cologuard (FIT-DNA)07/29/20235215Opxmkzajuue77/06/2024olorectal Cancer Screening 07/29/2023Fecal Occult Blood07/29/20230338Ghmzgmwbyexii64/06/2024ovid-19 Vaccine ( season)2024Influenza Vaccine (#1)2024Diabetes Screening 702/12/2023, 06/01/2023 Insurance Care Teams Team MemberRelationshipSpecialtyStart DateEnd Date Mitul Pitt NP [address] [place] [address] 06/26/23 Ashley Foster CNP [address] [place] [address] [facility]07/26/23
--- OUTSIDE RECORDS SUMMARY | 2025-02-28 06:51 | XMS_ITS | CCD ---
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 safely administered during the perioperativeperiod Finalized By: Ayla Gage I Document Signatures Signed By: Ayla Gage I 02/26/24 16:44[facility], [facility]Main [place] Preoperative Recordon 48-00-6131Xqer OR Preoperative RecordMain OR Preoperative Record Holding Area Document Type FT Summary Primary Physician: Julio Mckinley MD Finalized Date/Time: 02/26/24 14:02:22 Pt. Name: VEE REYISSA Magdaleno.O.B./Sex: 1980 Male Med Rec #: [id number] Physician: Julio Mckinley MD Financial #: [id number] Pt. Type: O Room/Bed: / Admit/Disch: 02/26/24 [...] or her perioperative plan of care The patient'sright to privacy is maintained Surgery Checklist FT [...] Signatures Signed By: Guerline Vaughn RN 02/26/24 14:02[facility] Outpatient Surgery Discharge Instructionon 57-09-7728Npvtnokawi Surgery Discharge InstructionOutpatient Surgery Discharge Instruction [place] [id number] Patient Discharge Instructions PERSON INFORMATION Name: REY [...] was present when discharge instructions were given Patient Signature Date Clinican/Nurse Signature Date Follow up: Type Location Start Finish [facility] Follow Up [facility] 03/11/2024 9:30 AM 03/11/2024 9:45 AM Confirmed Pharmacy Information: You may receive a survey from [employer] asking you to rate your care experience. Your feedback is important and will help us understand what we do well and how we can improve the quality of care we provide to you, your loved ones and our community. It???s an honor to serve you. Thank you for choosing [facility] HERE ARE THE MEDICATION CHANGES THAT OCCURRED [...] next 4 DAYS.., Responsible Provider: Juliane Ba brompheniramine/dextromethorphan/PSE (Bromfed DM oral syrup) 5 Milliliter By Mouth 4 times a day asneeded for cold symptoms. Refills: 0. citalopram (citalopram [...] Refill(s), TAKE 1 TABLET BY MOUTH EVERY EVENING.,Responsible Provider: Irena Jeffery MD propafenone (propafenone 225 mg Tab) 60 EA, 0 Refill(s), TAKE 1 TABLET BY MOUTH TWICE DAILY (IN THEMORNING and AT BEDTIME)., Responsible Provider: Jamar Stock sucralfate (sucralfate 1 g Tab) 40 EA, 0 Refill(s), TAKE 1 TABLET BY MOUTH FOUR TIMES DAILY ON AN EMPTY STOMACH., Responsible Provider: Irena Jeffery MD tizanidine (tiZANidine 4 mg Tab) 30 EA, 0 Refill(s), TAKE 1 TABLET BY MOUTH AT BEDTIME DAILY NEEDED., Responsible Provider: Irena Jeffery MD PATIENT EDUCATION INFORMATION Instructions: Medication Leaflets:[facility]/Clinic Noteon 15-34-0228Wlyqlcwsujrxfvpf Office/Clinic Note Gastroenterology Office/Clinic Note Chief Complaint [...] small bowel intussusception. XR abd 01/11/24 @ [place]: IMPRESSION: Clear lungs Moderate amount of stool [...] E&M of New Patient Moderate 45-59 Min 28942 EGD Endoscopy (Hospital Procedure) 2. LUQ pain [...] E&M of New Patient Moderate 45-59 Min 13514 EGD Endoscopy (Hospital Procedure) 4. Gastroesophageal reflux disease (K21.9: Gastro-esophageal reflux disease without esophagitis) Continue pantoprazole Ordered: Colonoscopy (Hospital Procedure) E&M of New Patient Moderate 45-59 Min 11915 EGD Endoscopy (Hospital Procedure) 5. 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 Never Smokeless Tobacco Use:., 02/01/2024[facility] HospitalComment on above:Result Comment: Electronically Signed By: Elías ROTH, Julio Pond\.margarito\Date and Time Signed: 02/01/24 15:45 EDTOffice Visiton 34-72-1448Xmpawq-up [id number] Rey Baxter 1980 M Date Provider Department Center 12/18/2023 3848-BERNARDO HAYNES CARD [facility] Family History Problem Relation Age of Onset Lupus Mother Muscular dystrophy Mother Diabetes Other Family Status - Relation Status Age at Mother Other Level of Service:41876 DE OFFICE/OUTPATIENT ESTABLISHED LOW [facility] CenterCNTHERAPYon 03-55-3133JTJRAMHEYJU/PT/Speech Visit ([facility]) REY BAXTER ([id number]) 1980 M Date Time Provider Department 08/10/23 9:30 AM JEAN LEY [facility] Date Time Provider Department Center 08/10/2023 9:30 AM [id number]-BHXRAKEJEAN LEY [facility] [place] Reason for Visit: PT Eval [747] Visit [...] 1 capsule by mouth daily at bedtime. Edger Technician: Therapy (PT/OT/Speech/Resp) ID: [id number] 08/10/2023 10:06 AM Author: JEAN LEY Signed by JEAN LEY PT on 08/10/2023 at 10:06 AM Document text: Program_ID:[id number] Access Code: [email or web address] URL: [email or web address] Date: 08-10-2023 Prepared By: Jean Ley Program [...] - 3 sets - 10 reps Normal [facility] HospitalTHERAPY NTon 57-05-4939UVHCJNS NTHNO ID: [id number] Author: JEAN LEY PT Service: ? Author Type: Physical Therapist Type: Therapy (PT/OT/Speech/Resp) Filed: 08/10/2023 10:06 Note Text: Program_ID:[id number] Access Code: [email or web address] URL: [email or web address] Date: 08-10-2023 Prepared By: Jean Ley Program [...] x weekly - 3 sets - 10 repsNormalCJ.W. [facility] Visiton 16-63-4537Uhpbot-up [id number] Rey Baxter 1980 M Date Provider Department Center 08/08/2023 [place]-JAMAR STOCK ARASELI [facility] Family History Problem Relation Age of Onset Lupus Mother Muscular dystrophy Mother Diabetes Other Family Status - Relation Status Age at Mother Other Level of Service:60539 DE OFFICE/OUTPATIENT NEW MODERATE MDM 45 MINUTESNormal [facility] SouthwoodsCNPNon 86-02-6757TRKAIykecashe (RUDY) REY BAXTER ([id number]) 1980 M Date Time Provider Department 08/04/23 JI FAJARDO During your visit today, we recorded the following information about you: Zander Denson MA 08/04/2023 9:09 AM Signed Patient records received via electronic fax. Uploaded to [facility] [employer] via [employer]. Please review in scanned documents tab of chart review. Zander YAYA Denson Allergies As of Date: 08/04/2023 (Not on [...] (None) Encounter Status:Closed by ZANDER DENSON on 08/04/23[facility] Brain WO and W contrast Marlena 91-34-1811GGJWHKPKCU: Minimal paranasal sinus inflammatory changes. Otherwise normal study. Limnologist: TAE Transcribe Date/Time: Aug 03 2023 3:53P Dictated by : JAMAR SMITH MD This examination was interpreted and the report reviewed and electronically signed by: JAMAR SMITH MD on Aug 03 2023 3:57PM [facility] DIVISION OF RADIOLOGY* * *Final Report* * * DATE OF [...] cells, right greater than left. DIVISION OF RADIOLOGYProvider, [facility] - 08/03/2023 * * *Final Report* * [...] paranasal sinus inflammatory changes. Otherwise normal study. Limnologist: TAE Transcribe Date/Time: Aug 03 2023 3:53P Dictated by : JAMAR SMITH MD This examination was interpreted and the report reviewed and electronically signed by: JAMAR SMITH MD on Aug 03 2023 3:57PM EST [facility] HospitalRad[facility] Study observation (narrative)[facility] Brain WO and W contrast IVOrdered By: Ccf Provider on 08-03-2023 [facility] BRAIN WO/W IVCONon 72-03-0664GCV BRAIN WO/W IVCON* * *Final Report* * * DATE OF [...] paranasal sinus inflammatory changes. Otherwise normal study. Limnologist: TAE Transcribe Date/Time: Aug 03 2023 3:53P Dictated by : JAMAR SMITH MD This examination was interpreted and the report reviewed and electronically signed by: JAMAR SMITH MD on Aug 03 2023 3:57PM EST [id number]_IDCSIACNNormalHocking Valley Community HospitalOVon 37-62-3215SPWF Office Visit ([facility]) REY BAXTER ([id number]) 1980 M Date Time Provider Department 08/02/23 4:00 PM JI FAAJRDO [facility] During your visit today, we recorded the following information about you: Pulse Respiration Blood pressure Weight 74/minute 18/minute 115/74 72.4 kg Height 1.778 m Ji Fajardo MD 08/04/2023 2:09 PM Signed [facility] NEW EVALUATION August 04, 2023 4:00 PM Pt is 43 year old male from [place], [place] who presents with headaches that appears subsequent to 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 Lead is not being chelated at [...] Future - iv contrast (more content not included)...NormalSelect Medical [facility] on 49-95-0840GYUIUlvixfodd ([place]) REY BAXTER ([id number]) 1980 M Date Time Provider Department 08/02/23 [...] (None) Encounter Status:Closed by ZANDER DENSON on 08/03/23NoMer[facility] AND AUTO DIFFon 52-98-6914KOZPUOHP BASOPHIL0.1 X10E9/LNormal0.0-0.2 [facility] HospitalComment on above:Performed By: #### CBCERIK Cortez, 44968- 5, PINR, 23611-0, 44905-5, 97710-4, 44576-2, THYR #### [facility] ([id number]) [address] [place] [address] 41948SBMICPCG NEUTROPHIL3.9 X10E9/LNormal1.5-6.6[facility] HospitalComment on above:Performed By: #### CBCA, CMP, 30506-6, PINR, 58142-0, 18193-6, 36119-7, 60924-5, THYR #### [facility] ([id number]) [address] [place] [address] 14243Tasigirit/100 WBC (Bld)0.8 %NormalProBaylor Scott & White Medical Center – [facility] Comment on above:Performed By: #### CBCA, CMP, 96308-4, PINR, 11327-5, 14113-1, 84209-6, 61409-4, THYR #### [facility] ([id number]) [address] [place] [address] 80120Ozklbrsorza (Bld) [#/Vol]0.1 10*3/uLNormal0.0-0.4ProBaylor Scott & White Medical Center – Round RockComment on above:Performed By: #### CBCA, CMP, 34798-6, PINR, 40796-6, 49148-6, 77745-6, 42350-8, THYR #### [facility] ([id number]) [address] [place] [address] 77744Pbbmmskukhq/100 WBC (Bld)1.4 %NormalMagruder Memorial Hospital Comment on above:Performed By: #### CBCA, CMP, 65932-4, PINR, 72755-5, 33532-7, 80531-9, 21589-6, THYR #### [facility] ([id number]) [address] [place] [address] 24531Qlyhrurorlq distribution width (RBC) [Ratio]13.2 %Normal 11.5-15.0ProBaylor Scott & White Medical Center – Round RockComment on above:Performed By: #### CBCA, CMP, 04260-4, PINR, 17555-0, 82193-2, 08705-3, 86201-7, THYR #### [facility] ([id number]) [address] [place] [address] 30648Pmbkumoahp (Bld) [Volume fraction]40.7 %Mmwsnu33-90CqfJbhegpBaylor Scott & White Medical Center – Round RockComment on above:Performed By: #### CBCA, CMP, 62023-9, PINR, 43138-0, 11161-0, 03034-7, 94593-5, THYR #### [facility] ([id number]) [address] [place], [place] [address]Ytivxwlbvb (Bld) [Mass/Vol]14.2 g/wISnqmru33.0-17.0[facility] Memorial HospitalComment on above:Performed By: #### CBCA, CMP, 00771-8, PINR, 76437-3, 66804-3, 92310-3, 71267-8, THYR #### [facility] ([id number]) [address] [place] [address] 84442Ixgkhjhqwok (Bld) [#/Vol]2.2 10*3/uLNormal1.0-3.5ProMedica Chonc Pediatric HospitalComment on above:Performed By: #### CBCA, CMP, 14789-9, PINR, 10707-5, 08745-0, 89019-5, 51113-7, THYR #### [facility] ([id number]) [address] [place] [address] 79140Bqdeuygdklt/100 WBC (Bld)31.4 %NormalMagruder Memorial Hospital Comment on above:Performed By: #### CBCA, CMP, 77517-2, PINR, 12934-6, 37303-4, 99483-1, 59967-8, THYR #### [facility] ([id number]) [address] [place] [address] 95014ISO (RBC) [Entitic mass]30.7 pgGtrwfh20-55JzfWwuxbyBaylor Scott & White Medical Center – Round RockComment on above:Performed By: #### CBCA, CMP, 60617-9, PINR, 38360-9, 61405-8, 59139-2, 34995-6, THYR #### [facility] ([id number]) [address] [place] [address] 47446JLOR (RBC) [Mass/Vol]34.9 g/uBFapwke77-08ZquBmjqhtBaylor Scott & White Medical Center – Round RockComment on above:Performed By: #### CBCA, CMP, 65760-6, PINR, 98663-5, 71714-0, 24074-9, 67953-5, THYR #### [facility] ([id number]) [address] [place] [address] 37769UDC (RBC) [Entitic vol]88 iWArlmfz51-122WddCcdsux [facility]ont HospitalComment on above:Performed By: #### CBCA, CMP, 63145-9, PINR, 76773-5, 37171-0, 61510-3, 71844-8, THYR #### [facility] ([id number]) [address] [place] [address] 81226Pxaqsuvoo (Bld) [#/Vol]0.7 10*3/uLNormal0-0.9ProBaylor Scott & White Medical Center – Round RockComment on above:Performed By: #### CBCA, CMP, 01658-7, PINR, 07153-6, 80661-1, 96024-3, 37842-2, THYR #### [facility] ([id number]) [address] [place] [address] 22968Htwatnpad/100 WBC (Bld)10.7 %NormalMagruder Memorial Hospital Comment on above:Performed By: #### CBCA, CMP, 14569-6, PINR, 32415-9, 97553-0, 62613-8, 44143-0, THYR #### [facility] ([id number]) [address] [place] [address] 93883Fyunvmchcgv/100 WBC (Bld)55.7 %[facility] Comment on above:Performed By: #### CBCA, CMP, 62693-2, PINR, 65412-3, 84571-6, 48750-3, 12986-8, THYR #### [facility] ([id number]) [address] [place] [address] 17058Oajjhnhq mean volume (Bld) [Entitic vol]8.5 fLNormal7-12 ProMPetaluma Valley HospitalComment on above:Performed By: #### CBCA, CMP, 06538- 5, PINR, 46742-9, 70636-2, 80220-8, 05426-5, THYR #### [facility] ([id number]) [address] [place] [address] 28057Cilfhiuax (Bld) [#/Vol]192 10*3/oRJabecn075-047TejArydlo [facility] HospitalComment on above:Performed By: #### CBCA, CMP, 18962-9, PINR, 25634-5, 31905-6, 95414-5, 62369-9, THYR #### [facility] ([id number]) [address] [place] [address] 66615DSP COUNT4.61 X10E12/LNormal4.10-5.70[facility] Comment on above:Performed By: #### CBCA, CMP, 94298-0, PINR, 62814-6, 26977-1, 24359-4, 99775-7, THYR #### [facility] ([id number]) [address] [place] [address] 35436QID (Bld) [#/Vol]7.0 10*3/uLNormal4.0-11.0[facility] Memorial HospitalComment on above:Performed By: #### CBCA, CMP, 36832-6, PINR, 98682-4, 87112-2, 89123-0, 44376-6, THYR #### [facility] ([id number]) [address] [place] [address] 25137MCFNRKSQQZWNN METABOLIC PANELon 94-59-8837Qgjijcj [Mass/Vol]4.2 g/dLNormal3.2-5.3ProMedMission Bernal campusComment on above:Performed By: #### CBCA, CMP, 63562-2, PINR, 30015-6, 14226-4, 36375-6, 26594-4, THYR #### [facility] ([id number]) [address] [place] [address] 00750EAL [Catalytic activity/Vol]84 U/WQzupzd80-458BrjRcgnpnBaylor Scott & White Medical Center – Round RockComment on above:Performed By: #### CBCA, CMP, 32160-5, PINR, 37907-2, 72242-5, 72125-0, 44040-2, THYR #### [facility] ([id number]) [address] [place] [address] 36644VRK [Catalytic activity/Vol]27 U/LNormal0-40[facility] Memorial HospitalComment on above:Performed By: #### CBCA, CMP, 65032-1, PINR, 77969-3, 90806-2, 18864-0, 90929-1, THYR #### [facility] ([id number]) [address] [place] [address] 18726Yhgtb gap [Moles/Vol]8 mmol/LNormal5-15ProBaylor Scott & White Medical Center – Round RockComment on above:Performed By: #### CBCA, CMP, 54842-8, PINR, 19632-1, 47604-0, 04681-4, 33978-5, THYR #### [facility] ([id number]) [address] [place] [address] 12894THS [Catalytic activity/Vol]22 U/LNormal0-41ProBaylor Scott & White Medical Center – Round RockComment on above:Performed By: #### CBCA, CMP, 30005-4, PINR, 97496-3, 20260-9, 31161-0, 66599-5, THYR #### [facility] ([id number]) [address] [place] [address] 10672Cbkrqhiex [Mass/Vol]0.8 mg/dLNormal0.3-1.2ProMedMission Bernal campusComment on above:Performed By: #### CBCA, CMP, 58141-3, PINR, 36301-9, 31641-1, 35281-8, 90603-1, THYR #### [facility] ([id number]) [address] [place] [address], [place] [address]Wehzplj [Mass/Vol]10.0 mg/dLNormal8.5-10.5PMorrow County HospitalComment on above:Performed By: #### CBCA, CMP, 92584-4, PINR, 71305-3, 55783-0, 81144-3, 62404-3, THYR #### [facility] ([id number]) [address] [place] [address], [place] [address]Iwwcztsr [Moles/Vol]102 mmol/BGywqpq20-219ShxUlzpxnBaylor Scott & White Medical Center – Round RockComment on above:Performed By: #### CBCA, CMP, 98464-9, PINR, 78457-2, 82588-8, 36832-4, 21174-8, THYR #### [facility] ([id number]) [address] [place] [address], [place] [address]QS3 [Moles/Vol]26 mmol/SVrzdem86-34PtjNyujjsMorrow County Hospital Comment on above:Performed By: #### CBCA, CMP, 84014-5, PINR, 85907-4, 99910-8, 03249-8, 58754-8, THYR #### [facility] ([id number]) [address] [place] [address], [place] [address]Zrfggwbrcr [Mass/Vol]1.07 mg/dLNormal0.70-1.20Mag[facility]uder Memorial HospitalComment on above:Result Comment: METHOD TRACEABLE TO IDMS STANDARD Performed By: #### CBCA, CMP, 40439-9, PINR, 58652-7, 15981-0, 85146-8, 84279-8, THYR #### [facility] ([id number]) [address] [place] [address], [place] [address]XHU/1.73 sq M.predicted among non-blacks MDRD (S/P/Bld) [Vol rate/Area]88 mL/min/{1.73_m2}Normal>59ProBaylor Scott & White Medical Center – Round RockComment on above:Result Comment: Reported eGFR is based on the CKD-EPI 2020 equation that does not use a race coefficient.Performed By: #### GO, ERIK, 45751-8, PINR, 72869-4, 48027-7, 06427-7, 55647-5, THYR #### [facility] ([id number]) [address] [place] [address] 88277Ypgkwll [Mass/Vol]94 mg/dEZzmxey20-90UwqCnlvjtMagruder Memorial Hospital Comment on above:Performed By: #### GO, ERIK, 18942-4, PINR, 30069-4, 83946-3, 14334-3, 76286-7, THYR #### [facility] ([id number]) [address] [place] [address] 36166Gixfxcktw [Moles/Vol]4.0 mmol/LNormal3.5-5.0ProBaylor Scott & White Medical Center – Round RockComment on above:Performed By: #### GO, ERIK, 34591-0, PINR, 79546-5, 93230-5, 06976-9, 57112-3, THYR #### [facility] ([id number]) [address] [place] [address] 53093Ynwtgix [Mass/Vol]7.0 g/dLNormal6.0-8.0ProBaylor Scott & White Medical Center – Round RockComment on above:Performed By: #### GO, ERIK, 04152-2, PINR, 37398-7, 36429-3, 10138-6, 72922-9, THYR #### [facility] ([id number]) [address] [place] [address] 41047Cuaofq [Moles/Vol]136 mmol/CSfiche235-109LdwUokwiy [facility]remont HospitalComment on above:Performed By: #### CBCA, CMP, 21358-2, PINR, 62732-8, 48780-7, 59135-0, 74839-4, THYR #### [facility] ([id number]) [address] [place] [address] 32576Rzqh nitrogen [Mass/Vol]20 mg/dLNormal5-23ProBaylor Scott & White Medical Center – Round RockComment on above:Performed By: #### CBCA, CMP, 13128-4, PINR, 32563-4, 49578-8, 04635-3, 07700-0, THYR #### [facility] ([id number]) [address] [place] [address], [place] [address]LIIPVPANXvi 00-87-4152Gptnirmmi [Mass/Vol]2.1 mg/dLNormal 1.8-2.6ProBaylor Scott & White Medical Center – Round RockComment on above:Performed By: #### CBCA, CMP, 59273-6, PINR, 99330-6, 45736-4, 46801-5, 55789-5, THYR #### [facility] ([id number]) [address] [place] [address] 12733UMTNVMOZ Ion 46-77-3791Rhudyemj I.cardiac [Mass/Vol]ng/mLNormal 0.00-0.04ProBaylor Scott & White Medical Center – Round RockComment on above:Performed By: #### CBCA, CMP, 23460-0, PINR, 50396-9, 75108-5, 88913-7, 90229-5, THYR #### [facility] ([id number]) [address] [place] [address], [place] [address]SMF AND AUTO DIFFon 70-44-8539ISXZZDYS BASOPHIL0.1 X10E9/L Normal0.0-0.2ProMedMission Bernal campusComment on above:Performed By: #### CBCA, CMP, 75419-0, PINR, 44441-7, 62471-4, 41256-2, 32170-3, THYR #### [facility] ([id number]) [address] [place] [address] 52838GINFCUKB NEUTROPHIL5.1 X10E9/LNormal1.5-6.6ProBaylor Scott & White Medical Center – Round RockComment on above:Performed By: #### CBCA, CMP, 83963-3, PINR, 07206-7, 88170-2, 76779-4, 07786-0, THYR #### [facility] ([id number]) [address] [place] [address] 55499Tpapjzovz/100 WBC (Bld)0.8 %NormalProBaylor Scott & White Medical Center – [facility] Comment on above:Performed By: #### CBCA, CMP, 39465-4, PINR, 29793-4, 51118-2, 89866-9, 95687-7, THYR #### [facility] ([id number]) [address] [place] [address] 44699Knusobkdiar (Bld) [#/Vol]0.1 10*3/uLNormal0.0-0.4Magruder Memorial HospitalComment on above:Performed By: #### CBCA, CMP, 78028-7, PINR, 81096-5, 26678-9, 53709-1, 61423-8, THYR #### [facility] ([id number]) [address] [place] [address] 54435Ygkilfoxcmj/100 WBC (Bld)1.1 %NormalMagruder Memorial Hospital Comment on above:Performed By: #### CBCA, CMP, 86596-2, PINR, 67439-6, 52879-0, 55412-8, 24206-1, THYR #### [facility] ([id number]) [address] [place] [address] 28937Ogcvhcqxzcu distribution width (RBC) [Ratio]13.0 %Normal 11.5-15.0ProBaylor Scott & White Medical Center – Round RockComment on above:Performed By: #### CBCA, CMP, 79252-2, PINR, 59161-3, 31317-5, 13143-9, 47264-3, THYR #### [facility] ([id number]) [address] [place] [address] 66634Czcfzruzng (Bld) [Volume fraction]41.5 %Ozgjvt65-53ZirTyvcolBaylor Scott & White Medical Center – Round RockComment on above:Performed By: #### CBCA, CMP, 66475-1, PINR, 56890-7, 38603-0, 29046-0, 52134-9, THYR #### [facility] ([id number]) [address] [place] [address] 60400Arfeabdyim (Bld) [Mass/Vol]14.6 g/hJGuqffd88.0-17.0ProBaylor Scott & White Medical Center – Round RockComment on above:Performed By: #### CBCA, CMP, 42335-8, PINR, 02751-7, 87271-6, 78683-5, 33897-7, THYR #### [facility] ([id number]) [address] [place] [address] 03665Jnmuknmldyn (Bld) [#/Vol]1.7 10*3/uLNormal1.0-3.5PHood Memorial Hospitalica Chonc Pediatric HospitalComment on above:Performed By: #### CBCA, CMP, 19838-4, PINR, 05899-6, 33008-0, 35926-5, 32566-7, THYR #### [facility] ([id number]) [address] [place] [address] 07536Rgxazqwdlnp/100 WBC (Bld)22.2 %NormalMagruder Memorial Hospital Comment on above:Performed By: #### CBCA, CMP, 04889-3, PINR, 63799-3, 04952-9, 43068-2, 45075-8, THYR #### [facility] ([id number]) [address] [place] [address] [id number] (RBC) [Entitic mass]30.4 osMwbqgx24-02EjaPjwcyuBaylor Scott & White Medical Center – Round RockComment on above:Performed By: #### CBCA, CMP, 51545-7, PINR, 89423-5, 52355-3, 10148-9, 14491-1, THYR #### [facility] ([id number]) [address] [place] [address] 48556QNXS (RBC) [Mass/Vol]35.1 g/cGPosmhp03-13KnoFhpeysBaylor Scott & White Medical Center – Round RockComment on above:Performed By: #### CBCA, CMP, 55423-7, PINR, 26638-2, 05632-4, 47047-0, 36499-3, THYR #### [facility] ([id number]) [address] [place] [address] [id number] (RBC) [Entitic vol]87 dCDemksq86-017IhgKlxfyi Fremont HospitalComment on above:Performed By: #### CBCA, CMP, 49455-4, PINR, 39119-0, 16747-5, 83841-2, 18525-6, THYR #### [facility] ([id number]) [address] [place] [address] 80116Jhcmvuaqv (Bld) [#/Vol]0.6 10*3/uLNormal0-0.9Magruder Memorial HospitalComment on above:Performed By: #### CBCA, CMP, 02930-6, PINR, 70259-6, 01761-3, 15629-4, 10824-5, THYR #### [facility] ([id number]) [address] [place] [address] 14912Uoyxuprne/100 WBC (Bld)7.8 %NormalProBaylor Scott & White [facility] Center – [place] Comment on above:Performed By: #### CBCA, CMP, 23239-1, PINR, 04868-1, 48306-9, 62153-7, 92320-2, THYR #### [facility] ([id number]) [address] [place] [address] [id number]/100 WBC (Bld)68.1 %NormalMagruder Memorial Hospital Comment on above:Performed By: #### CBCA, CMP, 70201-5, PINR, 75626-7, 31879-5, 42659-6, 98644-0, THYR #### [facility] ([id number]) [address] [place], [place] [address] 95477Mendiyel mean volume (Bld) [Entitic vol]8.3 fLNormal7-12 [facility] HospitalComment on above:Performed By: #### CBCA, CMP, 62329- 5, PINR, 34600-6, 39137-5, 93297-1, 76330-4, THYR #### [facility] ([id number]) [address] [place] [address] 95013Roewmpgax (Bld) [#/Vol]207 10*3/gNOeinuc336-995CliJprhnmMagruder Memorial HospitalComment on above:Performed By: #### CBCA, CMP, 17238-5, PINR, 00080-7, 83866-2, 69946-5, 08590-6, THYR #### [facility] ([id number]) [address] [place] [address] 56542CGA COUNT4.79 X10E12/LNormal4.10-5.70[facility] Comment on above:Performed By: #### CBCA, CMP, 22224-9, PINR, 99752-1, 04016-2, 80124-6, 63323-0, THYR #### [facility] ([id number]) [address] [place] [address] 50680TMO (Bld) [#/Vol]7.5 10*3/uLNormal4.0-11.0[facility] HospitalComment on above:Performed By: #### CBCA, CMP, 81113-2, PINR, 46509-8, 13079-9, 27091-1, 23675-0, THYR #### [facility] ([id number]) [address] [place] [address], [place] 12238LPXVPAKNJRLEO METABOLIC PANELon 81-52-0267Lzhgmcb [Mass/Vol]5.0 g/dLNormal3.2-5.3ProMedMission Bernal campusComment on above:Performed By: #### CBCA, CMP, 56674-5, PINR, 76145-2, 68325-0, 53992-2, 54288-2, THYR #### [facility] ([id number]) [address] [place] [address], [place] 226[address]OBT [Catalytic activity/Vol]90 U/LLuseln75-240QpoQplnxdMagruder Memorial HospitalComment on above:Performed By: #### CBCA, CMP, 33293-0, PINR, 29049-9, 92937-8, 69572-5, 79809-4, THYR #### [facility] ([id number]) [address] [place] [address], [place] 129[address]LZO [Catalytic activity/Vol]32 U/LNormal0-40ProBaylor Scott & White Medical Center – Round RockComment on above:Performed By: #### CBCA, CMP, 44795-5, PINR, 42769-2, 88334-9, 99330-3, 34229-7, THYR #### [facility] ([id number]) [address] [place] [address], [place] [address]Mgpjf gap [Moles/Vol]7 mmol/LNormal5-15ProBaylor Scott & White Medical Center – Round RockComment on above:Performed By: #### CBCA, CMP, 40924-2, PINR, 23371-5, 34753-8, 34921-9, 44227-7, THYR #### [facility] ([id number]) [address] [place] [address], [place] 28954XNV [Catalytic activity/Vol]27 U/LNormal0-41ProBaylor Scott & White Medical Center – Round RockComment on above:Performed By: #### GO, CMP, 12720-3, PINR, 80068-8, 95736-8, 21493-4, 75539-7, THYR #### [facility] ([id number]) [address] [place] [address], [place] [address]Ppnfytsjo [Mass/Vol]0.8 mg/dLNormal0.3-1.2PMorrow County HospitalComment on above:Performed By: #### GO, CMP, 10347-7, PINR, 96152-3, 46506-9, 63639-4, 27624-8, THYR #### [facility] ([id number]) [address] [place] [address], [place] 169[address]Uxljxkq [Mass/Vol]10.1 mg/dLNormal8.5-10.5PMorrow County HospitalComment on above:Performed By: #### GO, CMP, 04768-4, PINR, 29536-9, 82481-4, 95360-5, 75490-6, THYR #### [facility] ([id number]) [address] [place] [address], [place] [address]Dzjlzktt [Moles/Vol]103 mmol/CFeujme39-364VtlVaedbtBaylor Scott & White Medical Center – Round RockComment on above:Performed By: #### CBCA, CMP, 63297-3, PINR, 44076-8, 46220-7, 37422-2, 04834-1, THYR #### [facility] ([id number]) [address] [place] [address], [place] [address]XZ6 [Moles/Vol]24 mmol/JGqljmb08-11ThuQsbhgyMorrow County Hospital Comment on above:Performed By: #### CBCA, CMP, 96353-5, PINR, 62273-8, 59403-7, 47781-4, 05708-1, THYR #### [facility] ([id number]) [address] [place] [address] 78517Gmadlvfbfp [Mass/Vol]1.18 mg/dLNormal0.70-1.20[facility] HospitalComment on above:Result Comment: METHOD TRACEABLE TO IDMS STANDARD Performed By: #### GO, CMP, 81889-7, PINR, 91657-5, 24185-7, 92069-6, 60007-6, THYR #### [facility] ([id number]) [address] [place] [address] 66772XIA/1.73 sq M.predicted among non-blacks MDRD (S/P/Bld) [Vol rate/Area]78 mL/min/{1.73_m2}Normal>59ProBaylor Scott & White Medical Center – Round RockComment on above:Result Comment: Reported eGFR is based on the CKD-EPI 2020 equation that does not use a race coefficient.Performed By: #### GO, ERIK, 75734-8, PINR, 43158-0, 00124-7, 55220-5, 90768-8, THYR #### [facility] ([id number]) [address] [place] [address] 35086Xbwwvsf [Mass/Vol]86 mg/zRBhoako81-58AdbAdodalBaylor Scott & White Medical Center – Round Rock Comment on above:Performed By: #### KIRKA, CMP, 34651-2, PINR, 53707-1, 10384-4, 32559-3, 47993-8, THYR #### [facility] ([id number]) [address] [place] [address] 24091Bqwnieaxu [Moles/Vol]3.8 mmol/LNormal3.5-5.0ProBaylor Scott & White Medical Center – Round RockComment on above:Performed By: #### KIRKA, CMP, 08188-3, PINR, 92435-9, 76210-4, 57754-1, 20746-7, THYR #### [facility] ([id number]) [address] [place] [address] 14839Wntgouk [Mass/Vol]7.8 g/dLNormal6.0-8.0[facility] HospitalComment on above:Performed By: #### CBCA, CMP, 36956-3, PINR, 51377-2, 00622-6, 17758-8, 96567-2, THYR #### [facility] ([id number]) [address] [place] [address] 65631Gzaole [Moles/Vol]134 mmol/YBidwnr950-833VjzUeuogh [facility] HospitalComment on above:Performed By: #### CBCA, CMP, 85018-2, PINR, 19762-4, 58476-6, 16498-2, 97396-9, THYR #### [facility] ([id number]) [address] [place] [address] 56649Ckhz nitrogen [Mass/Vol]16 mg/dLNormal5-23ProBaylor Scott & White Medical Center – Round RockComment on above:Performed By: #### CBCA, CMP, 68465-2, PINR, 78785-7, 41594-8, 59365-4, 43021-7, THYR #### [facility] ([id number]) [address] [place] [address] 67557XWUQ SCREEN, URINEon 00-77-5197ACCABEAENEX/METHAMPNegative NormalNEGMagruder Memorial HospitalComment on above:Result Comment: AMPH/METH screening cut off = 1000 ng/mLPerformed By: #### CBCA, CMP, 99720-2, PINR, 25856-6, 67387-4, 31246-5, 84388-2, THYR #### [facility] ([id number]) [address] [place] [address] 98061RYQHLDVWOHZQOinluevrIiknyxFWWTxyOlwawq [facility] HospitalComment on above:Result Comment: Barbiturates screening cut off value = 200 ng/mL Performed By: #### CBCA, CMP, 29227-9, PINR, 42911-9, 34427-5, 81988-3, 28376-0, THYR #### [facility] ([id number]) [address] [place] [address] 79610TFXBNOFAFOJVXDPBlevyfdnNskhjsOMHRnlBngnqc [facility] Comment on above:Result Comment: Benzodiazepines screening cut off value = 200 ng/mLPerformed By: #### CBCA, CMP, 26995-2, PINR, 70189-7, 43578-4, 62429-9, 25587-5, THYR #### [facility] ([id number]) [address] [place] [address] [place] [address]QUBTLHFGJKVHNiudluxfPkndloKOYTgwFuqdeq [facility] HospitalComment on above:Result Comment: Cannabinoids/THC screening cut off value = 50 ng/mL Performed By: #### CBCA, CMP, 27610-1, PINR, 61443-4, 85613-2, 06510-3, 82488-5, THYR #### [facility] ([id number]) [address] [place] [address] 86532OHRYYFU METABOLITENegativePaulding County Hospital Comment on above:Result Comment: Cocaine screening cut off value = 300 ng/mL Performed By: #### CBCA, CMP, 27879-4, PINR, 53183-4, 82905-8, 37198-9, 96292-2, THYR #### [facility] ([id number]) [address] [place] [address] 33185YDMUIOIFsaecogbUjqalsDOEFnnKjiwam [facility] HospitalComment on above:Result Comment: Ecstasy screening cut off value = 500 ng/mL This report is intended for use in clinical monitoring or management of patients.Performed By: #### CBCA, CMP, 31959-5, PINR, 23250-6, 28236-9, 79485-2, 28451-3, THYR #### [facility] ([id number]) [address] [place] [address] 93426RTKXBLCBYFeaacqkzCvbigcUEHGuxMvwqsl [facility] HospitalComup health system on above:Result Comment: Methadone screening cut off value = 300 ng/mL.Performed By: #### CBCA, CMP, 56759-2, PINR, 01167-6, 97123-0, 50730-4, 52894-0, THYR #### [facility] ([id number]) [address] [place] [address] 11860SYVJHYQFhydvdkvQhyihvYRHHfhRnwnfe [facility] HospitalComup health system on above:Result Comment: Opiates screening cut off value = 300 ng/mL NOTE: This test is used for the detection of codeine, hydrocodone (>1000 ng/mL), morphine and hydromorphone (>900 ng/mL) in urine.Performed By: #### CBCA, CMP, 64320-3, PINR, 51750-1, 47926-6, 97245-3, 87008-6, THYR #### [facility] ([id number]) [address] [place] [address] [place] [address]MLRJMYKHWNsonpasvIehpahICDUktIxurti [facility] HospitalComup health system on above:Result Comment: Oxycodone screening cut off value = 300 ng/mL NOTE: This test is used for the detection of oxycodone and oxymorphone in urine.Performed By: #### CBCA, CMP, 01873-9, PINR, 06021-9, 48553-4, 52756-6, 33616-1, THYR #### [facility] ([id number]) [address] [place] [address], [place] 6[address]RNNPQESJVYHCCJflllavrBzcqczYECFnhLnykxr [facility] HospitalComup health system on above:Result Comment: Phencyclidine screening cut off value = 25 ng/mL Performed By: #### CBCA, CMP, 28183-0, PINR, 30947-3, 62085-4, 00701-2, 44913-0, THYR #### [facility] ([id number]) [address] [place] [address] 53313Gevjfe D-dimer DDU (PPP) [Mass/Vol]on 06-01-2023 DIMER<150 Normal<255ProMedica Chonc Pediatric HospitalComment on above:Result Comment: Results <255 ng/mL DDU: The presence of a VTE can safely be excluded with a negative D-Dimer result and Wells score. A negative result doesn't exclude the possibility of DIC. The test be repeated along with other diagnostic tests if the patient's symptoms persist or worsen. [email or web address] By: #### ERIK STILES, 46198-8, PINR, 72470-6, 40369-7, 25410-9, 60206-9, THYR #### [facility] ([id number]) [address] [place] [address] 66264Vmge (BldV) [Mass/Vol]on 15-99-6728TAQB, QTMUKO72.8 mcg/dLHigh <3.5ProMedica Chonc Pediatric HospitalComment on above:Result Comment: NOTE ADDITIONAL INFORMATION Testing performed by Inductively Coupled Plasma-Mass Spectrometry (ICP-MS). This test was developed and its performance characteristics determined by [facility] in a manner consistent with CLIA requirements. This test has not been cleared or approved by the U.S. Food and Drug Administration.Performed By: #### ERIK STILES, 57840-5, PINR, 04855-0, 89847-3, 70549-7, 64310-3, THYR #### [facility] ([id number]) [address] [place] [address] 01106EBKGLICQLlg 95-75-0282Udipecabu [Mass/Vol]2.1 mg/dLNormal 1.8-2.6ProBaylor Scott & White Medical Center – Round RockComment on above:Performed By: #### CBCA, CMP, 38139-5, PINR, 74717-4, 17905-0, 04772-9, 61156-4, THYR #### [facility] ([id number]) [address] [place] [address] 08016Mxjkjkvixos peptide B [Mass/Vol]on 84-62-6214ZHS NATRIURETIC PEP<5Normal<100.0ProBaylor Scott & White Medical Center – Round RockComment on above:Performed By: #### CBCA, CMP, 04975-9, PINR, 95050-3, 24708-6, 06188-3, 53895-4, THYR #### [facility] ([id number]) [address] [place] [address] 04135RGEZEUU AND INRon 99-47-8491ZDM Coag (PPP) [Relative time]1.1 {INR}Normal0.8-1.1PMorrow County HospitalComment on above:Performed By: #### KIRKA, CMP, 40432-1, PINR, 35987-7, 00651-0, 07762-5, 37490-8, THYR #### [facility] ([id number]) [address] [place] [address] 81342QL Coag (PPP) [Time]12.6 sNormal9.8-13.2PMorrow County HospitalComment on above:Result Comment: NEW REFERENCE RANGEPerformed By: #### CBCA, CMP, 87026-0, PINR, 85555-7, 74213-1, 43461-2, 37397-3, THYR #### [facility] ([id number]) [address] [place] [address] 99491GFJTZRA PROFILEon 60-10-9125Jixr T4 [Mass/Vol]0.88 ng/dLNormal 0.61-1.60ProBaylor Scott & White Medical Center – Round RockComment on above:Performed By: #### CBCA, CMP, 18313-6, PINR, 76477-2, 37905-0, 65003-8, 79168-1, THYR #### [facility] ([id number]) [address] [place] [address] 53780BGH1.27 uIU/mLNormal0.49-4.67ProBaylor Scott & White Medical Center – Round RockComment on above:Performed By: #### CBCA, CMP, 86166-4, PINR, 87372-3, 60205-2, 26581-4, 24521-6, THYR #### [facility] ([id number]) [address] [place] [address] 65050TRNCZORK Ion 21-03-8751Sayumbhm I.cardiac [Mass/Vol]ng/mLNormal 0.00-0.04ProBaylor Scott & White Medical Center – Round RockComment on above:Performed By: #### CBCA, CMP, 43770-5, PINR, 79819-8, 35362-1, 26413-3, 56798-4, THYR #### [facility] ([id number]) [address] [place] [address] 63170UJZ MACROSCOPIC NURon 74-64-6042QYYMWEFPH NURNegativeNormalNEG ProMPetaluma Valley HospitalComment on above:Performed By: #### CBCA, CMP, 58918- 5, PINR, 57188-9, 04970-7, 93255-2, 27251-2, THYR #### [facility] ([id number]) [address] [place] [address] 73986DVBZJ/HGB NURNegativeNormalNEGProBaylor Scott & White Medical Center – Round RockComment on above:Performed By: #### CBCA, CMP, 92862-3, PINR, 53265-6, 54567-0, 43544- 9, 97913-2, THYR #### [facility] ([id number]) [address] [place] [address], [place] 38[address]XKWSORA NURNegativeNormalNEGProBaylor Scott & White Medical Center – Round RockComment on above:Performed By: #### CBCA, CMP, 91320-8, PINR, 37328-5, 76085-6, 20546-8, 76927-6, THYR #### [facility] ([id number]) [address] [place] [address], [place] 327[address]HHYOLKP NUR40 mg/dLAbnormalNEGProBaylor Scott & White Medical Center – Round RockComment on above:Performed By: #### CBCA, CMP, 80305-7, PINR, 82232-5, 52688-0, 99231- 9, 91676-5, THYR #### [facility] ([id number]) [address] [place] [address], [place] 05[address]HXIDQMBQP ESTERASE NURNegativeNormalNEGMagruder Memorial HospitalComment on above:Performed By: #### CBCA, CMP, 18704-0, PINR, 97363-6, 46123-2, 46041-4, 67364-1, THYR #### [facility] ([id number]) [address] [place] [address], [place] 75080ASSAMQI NURNegativeNormalNEGProBaylor Scott & White Medical Center – Round RockComment on above:Performed By: #### CBCA, CMP, 97061-9, PINR, 56817-1, 37465-4, 33145-2, 38625-0, THYR #### [facility] ([id number]) [address] [place] [address] [place] 78046PV NUR5.7Tizlgy4.0-8.5ProMedica Chonc Pediatric HospitalComment on above:Performed By: #### CBCA, CMP, 29753-7, PINR, 79241-8, 01135-2, 71453-7, 07737-3, THYR #### [facility] ([id number]) [address] [place] [address] 76906HZGMWDU NURNegativeNormalNEGProBaylor Scott & White Medical Center – Round RockComment on above:Performed By: #### CBCA, CMP, 64457-1, PINR, 59905-1, 37942-6, 30292-8, 74915-5, THYR #### [facility] ([id number]) [address] [place] [address] 44821KCCHFTYD GRAVITY NUR1.240Zkinsv9.003-1.035ProBaylor Scott & White Medical Center – Round RockComment on above:Performed By: #### CBCA, CMP, 69455-7, PINR, 12969-1, 74389-9, 62160-9, 47657-5, THYR #### [facility] ([id number]) [address] [place] [address] 74229WFLPHPGHTXZS NUR0.2 eu/dLNormal<1.1PMorrow County Hospital Comment on above:Performed By: #### CBCA, CMP, 10795-2, PINR, 02455-9, 10274-6, 28539-9, 34312-7, THYR #### [facility] ([id number]) [address] [place] [address] 38770SL CHEST 1 VWon 40-98-6004MQ CHEST 1 VWXR CHEST 1 VW History: chest pain Exam/Technique: [...] by Edi Pardo DO on 06/01/2023 3:32 PMNormalProBaylor Scott & White Medical Center – Round RockaPTT Coag (PPP) [Time]on 87-35-8831nZZZ Coag (Bld) [Time]35 sQxqbxa59-02 [facility]osa HospitalComment on above:Result Comment: NEW REFERENCE RANGE Performed By: #### CBCA, CMP, 46723-5, PINR, 57030-9, 94530-0, 37670-2, 43909-1, THYR #### [facility] ([id number]) [address] [place] [address], FIRST [address] [place], [place] [address]GBLQ,ADULTon 14-24-9229Jzuo, Blood (Adult)45.4 ug/dLInvalid Interpretation Code0.0-3.4[facility] on above:Result Comment: Testing performed by Inductively coupled plasma/Mass Spectrometry. Verified by repeat analysis Analysis by inductively coupled plasma/mass spectrometry (ICP/MS) Environmental Exposure: WHO Recommendation <20.0 Occupational Exposure: OSHA Lead Std 40.0 CHAZ 30.0 . Detection Limit = 1.0Performed By: #### LEADA #### [facility] [address] [place] [address] Dr. Rachel Chandler,[facility] 71-22-2340Qqqh, Blood (Adult)CLOTWUniversity Hospitals Portage Medical CenterComup health system on above:Result Comment: Test not performed. Whole blood specimen partially or completely clotted. A common cause is insufficient mixing upon collection. Testing performed by Inductively coupled plasma/Mass Spectrometry. contacted Nohelia at your facility on 09-01-2022 Environmental Exposure: WHO Recommendation <20.0 Occupational Exposure: OSHA Lead Std 40.0 CHAZ 30.0 . Detection Limit = 1.0Performed By: #### INSULIN #### [facility] [address] [place] [address] Dr. Rachel Chandler,ADULTon 90-02-7593Cwfu, Blood (Adult)CLOTWBNSelect Medical Specialty Hospital - Southeast [place] on above:Result Comment: Test not performed. Whole blood specimen partially or completely clotted. A common cause is insufficient mixing upon collection. Testing performed by Inductively coupled plasma/Mass Spectrometry. contacted Taya at your facility on 08-30-2022 Environmental Exposure: WHO Recommendation <20.0 Occupational Exposure: OSHA Lead Std 40.0 CHAZ 30.0 . Detection Limit = 1.0Performed By: #### LEADA #### [facility] [address] [place] [address] Dr. Rachel Cagle 90-09-8940Vljayousgnx peptide B (Bld) [Mass/Vol]10.0 pg/mL Normal<=450.0The [facility] Boardman HospitalComment on above:Performed By: #### CMP, TSH, BNP #### [facility] [address] [place] [address] Dr. Rachel Kline AUTO DIFFon 90-43-9214UAFI #0.0 103/ulNormal0.0-0.1The [facility] Board[facility] HospitalComment on above:Performed By: #### CBC #### [facility] [address] [place] [address] Dr. Rachel Alvarezsophils/100 WBC (Bld)0.5 %Normal0.2-2.0[facility] Comment on above:Performed By: #### CBC #### [facility] [address] [place] [address] Dr. Rachel Berg #0.2 103/ulNormal0.0-0.7The [facility] Board[facility] HospitalComment on above: Performed By: #### CBC #### [facility] [address] [place] [address] Dr. Rachel Haysosinophils/100 WBC (Bld)2.7 %Normal0.9-7.0[facility] Comment on above:Performed By: #### CBC #### [facility] [address] [place] [address] Dr. Rachel Haysrythrocyte distribution width (RBC) [Ratio]12.3 %Vcxhlp65.0-15.0 [facility] HospitalComment on above:Performed By: #### CBC #### [facility] [address] [place] [address] Dr. Rachel Menaatocrit (Bld) [Volume fraction]40.9 %Critically low42.0-54.0 [facility] HospitalComment on above:Performed By: #### CBC #### [facility] [address] [place] [address] Dr. Yilan ChangHemoglobin (Bld) [Mass/Vol]13.9 g/dLCritically low14.0-18.0The [facility] HospitalComment on above:Performed By: #### CBC #### [facility] [address] [place] [address] Dr. Rachel Berumen #0.02 10e3/ulNormal0.00-0.03The [facility] HospitalComment on above:Performed By: #### CBC #### [facility] [address] [place] [address] Dr. Rachel Berumen %0.3 %Normal0.0-0.5The [facility] HospitalComment on above: Performed By: #### CBC #### [facility] [address] [place] [address] Dr. Rachel Coyle #1.6 103/ulNormal1.2-3.8The [facility] HospitalComment on above:Performed By: #### CBC #### [facility] [address] [place] [address] Dr. Rachel Billingshocytes/100 WBC (Bld)21.2 %Degbar30.5-60.0The [facility] HospitalComment on above:Performed By: #### CBC #### [facility] [address] [place] [address] Dr. Rachel MorinUAL DIFF REQNONormalThe [facility] HospitalComment on above: Performed By: #### CBC #### [facility] [address] [place] [address] Dr. Rachel Vance (RBC) [Entitic mass]30.3 lmOycmwa85.9-34.0The [facility] HospitalComment on above:Performed By: #### CBC #### [facility] [address] [place] [address] Dr. Rachel Vance (RBC) [Mass/Vol]34.0 g/rHVfcfzh48.9-35.2The [facility] HospitalComment on above:Performed By: #### CBC #### [facility] [address] [place] [address] Dr. Rachel VanceV (RBC) [Entitic vol]89.3 iHMtjjxg80.0-94.0The [facility] HospitalComment on above:Performed By: #### CBC #### [facility] [address] [place] [address] Dr. Rachel Saldana #0.6 103/ulNormal0.3-0.8The [facility] HospitalComment on above:Performed By: #### CBC #### [facility] [address] [place] [address] Dr. Rachel Chaoocytes/100 WBC (Bld)8.6 %Normal1.7-12.0The [facility] Comment on above:Performed By: #### CBC #### [facility] [address] [place] [address] Dr. Rachel Antoine #5.0 103/ulNormal1.4-6.5The [facility] HospitalComment on above:Performed By: #### CBC #### [facility] [address] [place] [address] Dr. Rachel Dwyerutrophils/100 WBC (Bld)66.7 %Wlhied81.0-75.0[facility] on above:Performed By: #### CBC #### [facility] [address] [place] [address] Dr. Rachel Cholet mean volume (Bld) [Entitic vol]10.2 fLNormal9.5-13.5[facility] on above:Performed By: #### CBC #### [facility] [address] [place] [address] Dr. Rachel CortezPLT198 103/[id number] [facility] HospitalComment on above: Performed By: #### CBC #### [facility] [address] [place] [address] Dr. Rachel CortezRBC4.58 106/ulCritically low4.70-6.10The [facility] on above:Performed By: #### CBC #### [facility] [address] [place] [address] Dr. Rachel CortezWBC7.5 103/ulNormal4.0-11.0The [facility] on above: Performed By: #### CBC #### [facility] [address] [place] [address] Dr. Rachel Stovall T4on [id number] T4 [Mass/Vol]0.84 ng/dLNormal0.76-1.[address] [facility]Com[facility] on above:Performed By: #### IRON, FT4 #### [facility] [address] [place] [address] Dr. Rachel Sandoval [id number] [Mass/Vol]86.0 ug/kMPknnlu76.0-175.0The [facility] on above:Performed By: #### IRON, FT4 #### [facility] [address] [place] [address] Dr. Rachel Feng 14(COMP METB)on [id number] [Mass/Vol]4.0 g/dLNormal 3.4-5.0The [facility] on above:Performed By: #### CMP, TSH, BNP #### [facility] [address] [place] [address] Dr. Rachel CortezAlbumin/Globulin [Mass ratio]1.2 {ratio}NormalThe [facility] on above:Performed By: #### CMP, TSH, BNP #### [facility] [address] [place] [address] Dr. Rachel Campbell [Catalytic activity/Vol]103 U/[id number] [facility] on above:Performed By: #### CMP, TSH, BNP #### [facility] [address] [place] [address] Dr. Rachel Jerez [Catalytic activity/Vol]39 U/GXeaier15-84Jff [facility]ment on above:Performed By: #### CMP, TSH, BNP #### [facility] [address] [place] [address] Dr. Yilan ChangAnion gap [Moles/Vol]10.2 mmol/LNormalCleveland Clinic [facility] Comment on above:Performed By: #### CMP, TSH, BNP #### [facility] [address] [place] [address] Dr. Rachel CortezAST [Catalytic activity/Vol]20 U/GNvuyyw97-62Mkw [facility] HospitalComment on above:Performed By: #### CMP, TSH, BNP #### [facility] [address] [address] [address] Rachel CortezBilirubin [Mass/Vol]0.3 mg/dLNormal0.2-1.0[facility] Comment on above:Performed By: #### CMP, TSH, BNP #### [facility] [address] [place] [address] Dr. Rachel CortezCalcium [Mass/Vol]9.8 mg/dLNormal8.5-10.1[facility] Comment on above:Performed By: #### CMP, TSH, BNP #### [facility] [address] [place] [address] Dr. Rachel CortezChloride [Moles/Vol]105 mmol/YMwhqdt05-090WssCleveland Clinic Mercy Hospital Comment on above:Performed By: #### CMP, TSH, BNP #### [facility] [address] [place] [address] Dr. Rachel CortezCO2 [Moles/Vol]29.9 mmol/QYpnsul01.0-32.0[facility] Comment on above:Performed By: #### CMP, TSH, BNP #### [facility] [address] [place] [address] Dr. Rachel CortezCreatinine [Mass/Vol]1.19 mg/dLNormal0.70-1.30The [facility] HospitalComment on above:Performed By: #### CMP, TSH, BNP #### [facility] [address] [place] [address] Dr. Rachel HaysGFR-AF FAROESE>60Normal>=60The [facility] HospitalComment on above:Performed By: #### CMP, TSH, BNP #### [facility] [address] [address] [address] Rachel HaysGFR-NON AF FAROESE>60Normal>=60The [facility] HospitalComment on above:Performed By: #### CMP, TSH, BNP #### [facility] [address] [address] [address] Rachel CortezGlobulin (S) [Mass/Vol]3.4 g/dLNormProMedica Fostoria Community HospitalComment on above:Performed By: #### CMP, TSH, BNP #### [facility] [address] [address] [address] Rachel CortezGlucose [Mass/Vol]105 mg/iMJzvaxy12-234Atz [facility] Comment on above:Performed By: #### CMP, TSH, BNP #### [facility] [address] [place] [address] Dr. Rachel CortezPotassium [Moles/Vol]4.1 mmol/LNormal3.5-5.1The [facility] Comment on above:Performed By: #### CMP, TSH, BNP #### [facility] [address] [address] [address] Rachel CortezProtein [Mass/Vol]7.4 g/dLNormal6.4-8.2The [facility] Comment on above:Performed By: #### CMP, TSH, BNP #### [facility] [address] [place] [address] Dr. Rachel CortezSodium [Moles/Vol]141 mmol/DEpwpyc604-658Azt [facility] Comment on above:Performed By: #### CMP, TSH, BNP #### [facility] [address] [place] [address] Dr. Rachel CortezUrea nitrogen [Mass/Vol]16.0 mg/dLNormal7.0-18.0The [facility] HospitalComment on above:Performed By: #### CMP, TSH, BNP #### [facility] [address] [place] [address] Dr. Rachel CortezUrea nitrogen/Creatinine [Mass ratio]13.4 mg/mgNoFairfield Medical CenterComment on above:Performed By: #### CMP, TSH, BNP #### [facility] [address] [place], [place] [address] Dr. Rachel WyattHogeoffrey 26-84-1860FHU2.978 uIU/mLNormal0.358-3.740The [facility] HospitalComment on above:Performed By: #### INSULIN #### [facility] [address] [place], [place] [address] Dr. Rachel CortezCT FACIAL BONES WO CONon [id number] FACIAL BONES WO CON EXAMINATION: CT FACIAL [...] Electronically authenticated by: WILFRID CAMARENA Date: 2022-08-11 18:30Normal [facility] HospitalCT HEAD WO CONon [id number] HEAD WO CONEXAMINATION: CT HEAD WO CON HISTORY: UNSPECIFIED INJURY [...] Electronically authenticated by: MARLYS MUNOZ Date: 2022-08-11 19:49NormalThSumma HealthINSULINon 44-01-4625Apmjnrw4.9 uIU/mLNormal2.6-24.9The [facility] HospitalComment on above:Performed By: #### INSULIN #### [facility] [address] [place] [address] Dr. Rachel Kline AUTO DIFFon 23-75-1615MFWY #0.1 103/ulNormal0.0-0.1The [facility] HospitalComment on above:Performed By: #### INSULIN #### [facility] [address] [place] [address] Dr. Rachel CortezBasophils/100 WBC (Bld)0.7 %Normal0.2-2.0[facility] Comment on above:Performed By: #### INSULIN #### [facility] [address] [place] [address] Dr. Rachel Berg #0.0 103/ulNormal0.0-0.7The [facility] HospitalComment on above: Performed By: #### INSULIN #### [facility] [address] [place] [address] Dr. Rachel Haysosinophils/100 WBC (Bld)0.1 %Critically low0.9-7.0The [facility] HospitalComment on above:Performed By: #### INSULIN #### [facility] [address] [place] [address] Dr. Rachel Haysrythrocyte distribution width (RBC) [Ratio]12.2 %Jibryh87.0-15.[address] [facility] HospitalComment on above:Performed By: #### INSULIN #### [facility] [address] [place] [address] Dr. Yilan ChangHematocrit (Bld) [Volume fraction]41.1 %Critically low42.0-54.[address] [facility] HospitalComment on above:Performed By: #### INSULIN #### [facility] [address] [place] [address] Dr. Rachel CortezHemoglobin (Bld) [Mass/Vol]14.1 g/aMNyxvln75.0-18.0The [facility] HospitalComment on above:Performed By: #### INSULIN #### [facility] [address] [place] [address] Dr. Rachel CortezIG #0.03 10e3/ulNormal0.00-0.03The [facility] HospitalComment on above:Performed By: #### INSULIN #### [facility] [address] [place] [address] Dr. Rachel CortezIG %0.4 %Normal0.0-0.5The [facility] HospitalComment on above: Performed By: #### INSULIN #### [facility] [address] [place] [address] Dr. Rachel Coyle #2.3 103/ulNormal1.2-3.8The [facility] HospitalComment on above:Performed By: #### INSULIN #### [facility] [address] [place] [address] Dr. Rachel Cruzmphocytes/100 WBC (Bld)30.8 %Fpgqwh72.5-60.0The [facility] HospitalComment on above:Performed By: #### INSULIN #### [facility] [address] [place] [address] Dr. Rachel CortezMANUAL DIFF REQNONormalThe [facility] HospitalComment on above: Performed By: #### INSULIN #### [facility] [address] [place] [address] Dr. Rachel Kerns (RBC) [Entitic mass]29.9 jbQqjlwo25.9-34.0The [facility] HospitalComment on above:Performed By: #### INSULIN #### [facility] [address] [place] [address] Dr. Rachel Vance (RBC) [Mass/Vol]34.3 g/hDZjsrup48.9-35.2The [facility] HospitalComment on above:Performed By: #### INSULIN #### [facility] [address] [address] [address] Rachel VanceV (RBC) [Entitic vol]87.3 yJGtrsih12.0-94.0The [facility] HospitalComment on above:Performed By: #### INSULIN #### [facility] [address] [address] [address] Rachel Saldana #0.7 103/ulNormal0.3-0.8The [facility] HospitalComment on above:Performed By: #### INSULIN #### [facility] [address] [address] [address] Rachel Chaoocytes/100 WBC (Bld)8.9 %Normal1.7-12.0The [facility] Comment on above:Performed By: #### INSULIN #### [facility] [address] [place] [address] Dr. Rachel Antoine #4.3 103/ulNormal1.4-6.5The [facility] HospitalComment on above:Performed By: #### INSULIN #### [facility] [address] [address] [address] Rachel Dwyerutrophils/100 WBC (Bld)59.1 %Sbqeqi08.0-75.0The [facility] HospitalComment on above:Performed By: #### INSULIN #### [facility] [address] [address] [address] Rachel Cholet mean volume (Bld) [Entitic vol]9.9 fLNormal9.5-13.5The [facility] HospitalComment on above:Performed By: #### INSULIN #### [facility] [address] [address] [address] Rachel CortezPLT184 103/qdZirdax759-196Zlg [facility] HospitalComment on above: Performed By: #### INSULIN #### [facility] [address] [address] [address] Rachel CortezRBC4.71 106/ulNormal4.70-6.10ThSumma HealthComment on above:Performed By: #### INSULIN #### [facility] [address] [place] [address] Dr. Rachel CortezWBC7.3 103/ulNormal4.0-11.0The [facility] HospitalComment on above: Performed By: #### INSULIN #### [facility] [address] [place] [address] Dr. Rachel CortezCULTURE URINEon 11-47-4538GEQJEGS URINECulture Observations: LIGHT GROWTH OF MIXED SKIN NILES. NO POTENTIAL PATHOGENS SEEN.NormalThe [facility] HospitalComment on above:Performed By: #### INSULIN #### [facility] [address] [place] [address] Dr. Rachel CortezFREE THYROXINE INDEX T7on 71-54-8740LWY4.97Zswesq3.30-4.50The [facility] HospitalComup [facility] on above:Performed By: #### INSULIN #### [facility] [address] [place] [address] Dr. Rachel CortezT3U35.0 %Tiufaz33.0-40.0The [facility]Com[facility] on above: Performed By: #### INSULIN #### [facility] [address] [place] [address] Dr. Rachel CortezT4 [Mass/Vol]5.90 ug/dLNormal4.50-12.10ThSumma Health Comment on above:Performed By: #### INSULIN #### [facility] [address] [place] [address] Dr. Rachel CortezGLYCOHEMOGLOBIN A1Con 28-69-4651RDY RECOMMENDATIONSEE BELOWNormal [facility]Com[facility] on above:Result Comment: ADA RECOMMENDED LIMIT 4.0 - 6.0 ADA THERAPEUTIC TARGET < 7.0 ACTION SUGGESTED > 7.0Performed By: #### A1C #### [facility] [address] [place] [address] Dr. Rachel CortezGlucose [Mass/Vol]100 mg/dLUniversity Hospitals Ahuja Medical CenterComment on above:Performed By: #### A1C #### [facility] [address] [place] [address] Dr. Rachel CortezHbA1c (Bld) [Mass fraction]5.1 %Normal4.5-6.2The [facility] HospitalComment on above:Performed By: #### A1C #### [facility] [address] [place] [address] Dr. Rachel Sandoval 74-04-1410Merb [Mass/Vol]104.0 ug/nHElnvgn54.0-175.0The [facility] HospitalComment on above:Performed By: #### INSULIN #### [facility] [address] [place] [address] Dr. Rachel Gatica PROFILEon 35-16-6161JWFK-HDL RATIO NORMSEE [facility]Com[facility] on above:Result Comment: 3.3 - 4.4 LOW RISK 4.4 - 7.1 AVERAGE RISK 7.1 - 11.0 MODERATE RISK >11.0 HIGH RISKPerformed By: #### CMP, LIPID #### [facility] [address] [place] [address] Dr. Rachel Wardesterol [Mass/Vol]147 mg/dLNormal<=200The [facility] Comment on above:Performed By: #### CMP, LIPID #### [facility] [address] [place] [address] Dr. Rachel CortezCholesterol in HDL [Mass/Vol]56 mg/wSZthscw66-17Nwn [facility] on above:Performed By: #### CMP, LIPID #### [facility] [address] [place] [address] Dr. Rachel CortezCholesterol in LDL [Mass/Vol]77.8 mg/dLCincinnati Shriners Hospital on above:Performed By: #### CMP, LIPID #### [facility] [address] [place] [address] Dr. Rachel Wardesterwilmer.total/Cholesterol in HDL [Mass ratio]2.6 {ratio} NormalThe [facility] HospitalComment on above:Performed By: #### CMP, LIPID #### [facility] [address] [place] [address] Dr. Rachel Subramanian NORMAL> or = 60 mg/dl - LOW CARDIOVASCULAR RISK <40 mg/dl - HIGH CARDIOVASCULAR RISKUniversity Hospitals Ahuja Medical CenterComment on above:Performed By: #### CMP, LIPID #### [facility] [address] [address] [address] Rachel CortezLDL CALC NORMALSEE BELOWNoFairfield Medical CenterComment on above:Result Comment: <100 mg/dl OPTIMAL 100 - 129 mg/dl NEAR OR ABOVE OPTIMAL 130 - 159 mg/dl BORDERLINE HIGH 160 - 189 mg/dl HIGH >190 mg/dl VERY HIGH Performed By: #### CMP, LIPID #### [facility] [address] [place] [address] Dr. Rachel CortezTriglyceride [Mass/Vol]66 mg/dLNormal<=150The [facility] Comment on above:Performed By: #### CMP, LIPID #### [facility] [address] [place] [address] Dr. Rachel VegaLDL CALC13.2 mg/dLNoFairfield Medical CenterComment on above: Performed By: #### CMP, LIPID #### [facility] [address] [place] [address] Dr. Rachel CortezPROF 14(COMP METB)on 89-28-0154Hhehdln [Mass/Vol]4.0 g/dLNormal 3.4-5.0The [facility] HospitalComment on above:Performed By: #### CMP, LIPID #### [facility] [address] [place] [address] Dr. Rachel CortezAlbumin/Globulin [Mass ratio]1.3 {ratio}NormalThe [facility] HospitalComment on above:Performed By: #### CMP, LIPID #### [facility] [address] [place] [address] Dr. Rachel DunneP [Catalytic activity/Vol]86 U/PUolnkx76-418Iwo Lucero HospitalComment on above:Performed By: #### CMP, LIPID #### [facility] [address] [address] [address] Rachel Jerez [Catalytic activity/Vol]35 U/AMpwuzh51-03Zpl [facility] HospitalComment on above:Performed By: #### CMP, LIPID #### [facility] [address] [address] [address] Rachel Dunnon gap [Moles/Vol]9.9 mmol/LNormalThe [facility] HospitalComment on above:Performed By: #### CMP, LIPID #### [facility] [address] [address] [address] Rachel CortezAST [Catalytic activity/Vol]22 U/TLvgmui57-73Sah [facility] HospitalComment on above:Performed By: #### CMP, LIPID #### [facility] [address] [address] [address] Rachel CortezBilirubin [Mass/Vol]0.4 mg/dLNormal0.2-1.0The [facility] Comment on above:Performed By: #### CMP, LIPID #### [facility] [address] [address] [address] Rachel CortezCalcium [Mass/Vol]10.1 mg/dLNormal8.5-10.1The [facility] Comment on above:Performed By: #### CMP, LIPID #### [facility] [address] [address] [address] Rachel CortezChloride [Moles/Vol]107 mmol/QVydwdo09-407Mcw [facility] Comment on above:Performed By: #### CMP, LIPID #### [facility] [address] [address] [address] Rachel CortezCO2 [Moles/Vol]30.0 mmol/ZCwyaxu14.0-32.0The [facility] Comment on above:Performed By: #### CMP, LIPID #### [facility] [address] [address] [address] Rachel CortezCreatinine [Mass/Vol]1.16 mg/dLNormal0.70-1.30The [facility] HospitalComment on above:Performed By: #### CMP, LIPID #### [facility] [address] [address] [address] Rachel HaysGFR-AF FAROESE>60Normal>=60The [facility] HospitalComment on above:Performed By: #### CMP, LIPID #### [facility] [address] [address] [address] Rachel HaysGFR-NON AF FAROESE>60Normal>=60The [facility] HospitalComment on above:Performed By: #### CMP, LIPID #### [facility] [address] [address] [address] Rachel CortezGlobulin (S) [Mass/Vol]3.0 g/dLNormalThe [facility] HospitalComment on above:Performed By: #### CMP, LIPID #### [facility] [address] [address] [address] Rachel CortezGlucose [Mass/Vol]88 mg/eQUgqdok31-086NylC[facility] Clinic [facility] Comment on above:Performed By: #### CMP, LIPID #### [facility] [address] [address] [address] Rachel CortezPotassium [Moles/Vol]3.9 mmol/LNormal3.5-5.1The [facility] Comment on above:Performed By: #### CMP, LIPID #### [facility] [address] [address] [address] Rachel CortezProtein [Mass/Vol]7.0 g/dLNormal6.4-8.2The [facility] Comment on above:Performed By: #### CMP, LIPID #### [facility] [address] [address] [address] Rachel CortezSodium [Moles/Vol]143 mmol/UGzqodl655-302Ytq [facility] Comment on above:Performed By: #### CMP, LIPID #### [facility] [address] [address] [address] Rachel CortezUrea nitrogen [Mass/Vol]16.0 mg/dLNormal7.0-18.0The [facility] HospitalComment on above:Performed By: #### CMP, LIPID #### [facility] [address] [address] [address] Rachel Waldron nitrogen/Creatinine [Mass ratio]13.8 mg/mgNoalThSumma HealthComment on above:Performed By: #### CMP, LIPID #### [facility] [address] [address] [address] Rachel Polanco 47-42-1015BRD1.417 uIU/mLNormal0.358-3.740The [facility] on above:Performed By: #### INSULIN #### [facility] [address] [address] [address] Rachel Barbosa RANDOM W/MICROSCOPICon 50-74-2492HGZEDDRZSAVH SEENNormalNONE SEENCleveland Clinic Mercy HospitalComment on above:Performed By: #### INSULIN #### [facility] [address] [address] [address] Rachel Wall Ql (U)NegativeNormalNEGATIVECleveland Clinic [facility]cy Hospital Comment on above:Performed By: #### INSULIN #### [facility] [address] [address] [address] Rachel Mora SEENNormalNONE SEENUniversity Hospitals Health System on above:Performed By: #### INSULIN #### [facility] [address] [address] [address] Rachel Kendrick (U)CLEARNormalCLEARCleveland Clinic Mercy HospitalComment on above: Performed By: #### INSULIN #### [facility] [address] [address] [address] Rachel Reynolds (U)YELLOWNormalYELLOWCleveland Clinic Mercy HospitalComment on above: Performed By: #### INSULIN #### [facility] [address] [place] [address] Dr. Rachel Kay LM Nom (Urine sed)NONE SEENNormalNONE SEENCleveland Clinic Mercy HospitalComment on above:Performed By: #### INSULIN #### [facility] [address] [address] [address] Rachel Dothelial cells LM Ql (Urine sed)NONE SEENNormalNONE SEEN /RARE The [facility] HospitalComment on above:Performed By: #### INSULIN #### [facility] [address] [address] [address] Rachel CortezGlucose Ql (U)NegativeNormalNEGATIVECleveland Clinic Mercy HospitalComment on above:Performed By: #### INSULIN #### [facility] [address] [address] [address] Rachel CortezHemoglobin Ql (U)NegativeNormalNEGATIVEOhio State East Hospital on above:Performed By: #### INSULIN #### [facility] [address] [address] [address] Rachel CortezKetones Ql (U)NegativeNormalNEGATIVECleveland Clinic Mercy HospitalComment on above:Performed By: #### INSULIN #### [facility] [address] [address] [address] Rachel CortezLEUKOCYTESNegativeNormalNEGATIVEUniversity Hospitals Health System on above:Performed By: #### INSULIN #### [facility] [address] [address] [address] Rachel CortezMUCOUSMODERATEAbnormalNONE SEENUniversity Hospitals Health System on above:Performed By: #### INSULIN #### [facility] [address] [address] [address] Rachel CortezNitrite Ql (U)NegativeNormalNEGATIVECleveland Clinic Mercy HospitalComment on above:Performed By: #### INSULIN #### [facility] [address] [address] [address] Rachel CortezpH (U)6.0 [pH]Normal5-9[facility] on above: Performed By: #### INSULIN #### [facility] [address] [address] [address] Rachel CortezRBCNONE SEENAbnormal0-2The [facility] HospitalComment on above: Performed By: #### INSULIN #### [facility] [address] [address] [address] Rachel CortezSPEC GRAVITY1.165Qtquesek8.005-<=1.025The [facility] Comment on above:Performed By: #### INSULIN #### [facility] [address] [address] [address] Rachel CortezUA PROTEINNegativeNormalNEGATIVE/ TRACEThe [facility] Comment on above:Performed By: #### INSULIN #### [facility] [address] [address] [address] Rachel CortezUrobilinogen Qn (U)1.0 {Colby'U}/dLNormal0.2 - 1.0The [facility] HospitalComment on above:Performed By: #### INSULIN #### [facility] [address] [address] [address] Rachel CortezWBCNONJune SEENNormalNONE SEENThe [facility] HospitalComment on above: Performed By: #### INSULIN #### [facility] [address] [address] [address] Rachel CortezXR LSPINE MIN 4 VIEWSon 11-04-9350HH LSPINE MIN 4 VIEWS EXAMINATION: XR LSPINE [...] Electronically authenticated by: MARINA MAIN Date: 2022-05-06 16:40[facility] Vital Signs Date TimeVital SignValuePerforming CtiyftycsOpgqfgcu76-31-4584 16:31-0500 Diastolic blood aacqcpio58 mm[Hg]Kim Kathannah [facility]11-04-2024 16:31-0500Heart rate65 /minMuhammad Sarmini [facility]11-04-2024 16:31-0500Mean blood ibblzryt226 mm[Hg]Kim Sarmini [facility]11-04-2024 16:31-0500 Respiratory rate16 /minMuhammad Sarmini [address] [place], [place] 0780311-04-2024 16:31-7598CmZ4% (BldA) [Mass fraction]100 %Kim Sarmini [address] [place], [place] 0780311-04-2024 16:31-0500 Systolic blood boxvlwwq549 mm[Hg]Kim Sarmini [address] [place], [place] 0780311-04-2024 16:16-0500Body etccdigptnc39.24 [degF]Kim Sarmini [address] [place], [place] 0780311-04-2024 16:16-0500 Diastolic blood tkqhemjr34 mm[Hg]Kim Sarmini [address] [place], [place] 0780311-04-2024 16:16-0500Heart rate59 /minMuhammad Sarmini [address] [place], [place] 0780311-04-2024 16:16-0500Mean blood dwokyizy48 mm[Hg]Kim Sarmini [address] [place], [place] 0780311-04-2024 16:16-0500 Respiratory rate18 /minMuhammad Sarmini [address] [place], [place] 0780311-04-2024 16:16-2353HqG9% (BldA) [Mass fraction]99 %Kim Sarmini [address] [place], [place] 0780311-04-2024 16:16-0500 Systolic blood cexmejvb81 mm[Hg]Kim Sarmini [facility]11-04-2024 16:10-0500 Diastolic blood ixcstyjo08 mm[Hg]Kim Sarmini [facility]11-04-2024 16:10-0500Heart rate56 /minMuhammad Sarmini [address] [place], [place] 0780311-04-2024 16:10-0500 Respiratory rate18 /minMuhammad Sarmini [address] [place], [place] 0780311-04-2024 16:10-9548LtQ2% (BldA) [Mass fraction]99 %Kim Sarmini [facility]11-04-2024 16:10-0500 Systolic blood lhcphsub216 mm[Hg]Kim Sarmini [address] [place], [place] 0780311-04-2024 16:05-0500 Respiratory rate18 /minMuhammad Sarmini [address] [place], [place] 0780311-04-2024 13:57-0500Blood Pressure LocationMuhammad Sarmini [facility]11-04-2024 13:57-0500Body nwzuqnizqrk39.24 [degF]Kim Sarmini [address] [place], [place] 0780311-04-2024 13:57-0500 Respiratory rate16 /minMuhammad Sarmini [address] [place], [place] 0780310-10-2024 14:42-0400Blood Pressure LocationMuhammad Sarmini 083-1190Fkefef-HugrsCincinnati [facility] Digestive Cpxofq35-24-8813 14:42-0400Diastolic blood hyueaano04 mm[Hg]Kim Sarmini 343-1706Kyhxay-YtgpvOhiohealth Southeastern [facility] Center10-10-2024 14:42-0400Heart rate80 /minMuhammad Lilianamini 702-3708Wgjwpg-DhryuOhiohealth Southeastern Medical Center10-10-2024 14:42-0400Respiratory rate18 /minMuhammad Sarmini 591-9979Nglezr-VeixwOhiohealth Southeastern Medical Center10-10-2024 14:42-0400Systolic blood mm[Hg]Kim Lilianamini [phone]-VnlclOhiohealth Southeastern Medical Center04-10-2024 15:48-0400Body hipmqg182.8 cmJi Fjaardo MD Work Phone: cRiverside Methodist HospitalIzyesg25-01-3111 15:48-0400Body .45 kgJi Fajardo MD Work Phone: [phone] Methodist HospitalCfxxer75-92-9378 15:48-0400Diastolic blood dyijvtxf90 mm[Hg]Ji Fajardo MD Work Phone: [phone] hospitaland Zhfqyp26-61-8250 15:48-0400Heart rate74 /min Ji Fajardo MD Work Phone: [phone] Methodist HospitalJvsyis58-86-6387 15:48-0400Respiratory rate 18 /minJi Fajardo MD Work Phone: [phone] county hospitaland Wnzieq76-56-7787 15:48-3734TlR5% (BldA) [Mass fraction]98 %Ji Fajardo MD Work Phone: [phone] Wzzepu74-81-4012 15:48-0400Systolic blood huqvoidd873 mm[Hg]Ji Fajardo MD Work Phone: [phone] Encounters Encounter DateEncounter TypeCare ProviderFacilityStart: 10-03-2024 End: 30-13-8293Rneaskxrx encounterDana Arslan Schmidt CMAProMedica Physicians Pulmonary/Sleep MedicineStart: 08-20-2024 End: 45-57-6601QzdbetLudmila Garza Physicians Pulmonary/Sleep MedicineComment on above:SOB (shortness of breath) (Primary Dx)Start: 08-15-2024 End: 06-11-3567Krb Drop offMuhammad Talal Sarmini [facility] Start: 08-15-2024 End: 23-40-9513tszohojcroEapyzzfb Talal SarminiFacility:FTMCStart: 07-31-2024 End: 45-74-5870jogptpovkrDusdnnzt Talal SarminiFacility:[facility] DHStart: 07-05-2024 End: 59-50-6870udbjexsvmmLTRCMercy Health Springfield Regional Medical Centertart: 30-95-8552jnkzsmwmoeYrhizdld Talal SarminiFacility:[facility] DHStart: 03-11-2024 End: 12-91-5258ppplobhmseEssvmuyh Talal SarminiFacility:[facility] DHStart: 03-11-2024 End: 86-69-1066Jinncde encounter procedureMuhammad Talal Sarmini [phone]-TppmyCincinnati Children'S [facility] Digestive Health Start: 02-26-2024 End: 50-34-2363eprkefhowvNntctrcb Talal SarminiFacility:FTMCStart: 02-26-2024 End: 28-55-5119Vtrvzql encounter procedureMuhammad Talal Sarmini [facility] Start: 02-09-2024 End: 49-15-2081Nnxcjptvcnkqc procedureSparas Garza Physicians Benign HematologyStart: 02-08-2024 End: 31-35-6373Xzbesuwknngsw procedureSparas Garza Physicians Benign HematologyComment on above:Lead toxicity, accidental or unintentional, initial encounter (Primary Dx)Start: 02-01-2024 End: 69-14-4463wmzbvkysyeNidmdtyx Talal SarminiFacility:[facility] DHStart: 02-01-2024 End: 10-60-1640Ipmknma encounter procedureMuhammad Talal Sarmini [phone]-EzukqCincinnati Children'S Hospital [facility] Center Digestive Health Start: 27-76-4925mzfphduinvMaxgtxky Sarmini Facility:[facility] DHStart: 75-64-4498gdaweueryePrugaayk SarminiFacility: BellevueStart: 12-18-2023 End: 26-30-7854krnobypmwaAZBYUKJ [facility] Start: 08-10-2023 End: 70-69-9688tqwivvvyuqWLNBFC GOFORTHFacility:[facility] Centertart: 08-10-2023 End: 24-36-6971axksbgttveVnawvic Av PT Work Phone: Physical TherapyComment on above:DizzinessStart: 08-08-2023 End: 96-72-1652ulesfqdrklMKOI [facility] Centertart: 59-09-2987Mbuxxjqiz encounterJi Fajardo MDNeurology [facility] Comment on above:Workers compStart: 08-03-2023 End: 55-92-4569ndanhgzvcnUOPPPF GOFORTHFacility:[facility] HospitalStart: 08-03-2023 End: 53-68-8367Vvjcfpipdw hospital visit by physiciani [facility] (1.5t) Work Phone: RadiologyComment on above:Worsening headaches [R51.9] Start: 08-02-2023 End: 55-58-9060ygentemxqxOXWWIZ GOFORTHFacility:[facility] Centertart: 08-02-2023 End: 61-31-7202Xpyvhc outpatient new 45 Charan Fajardo MD Work Phone: Neurology Headache Hana FHCComment on above:Worsening headaches (Primary Dx); Dizziness; Toxic effect of lead, accidental or unintentional, initial encounterStart: 47-44-1563Bbptawchk encounterJi Fajardo MDNeurology [facility] Start: 64-37-0161buyoqqyvyrOdroeak Hogan RNCCF [place] MAINStart: 48-08-4316Hgixixs encounter procedureDigna Chavez RNNURSE ON CALLComment on above:Referral RequestStart: 06-02-2023 End: 75-62-7340gbqldqksadAGLP D KROTZERAvita Health System HospitalStart: 06-01-2023 End: 06-86-7758Oczhmojbd department patient visitAMBER MARTYAvita Health System HospitalStart: 06-01-2023 End: 72-84-0200uehpmanwhfRHANXGJ M HOYProMedica [place] HospitalStart: 09-01-2022 End: 16-96-6509bwhaduwvhgCG IRENA HOY .Facility:G8Ybubw: 08-30-2022 End: 35-96-5235wsjggywyhcUW IRENA HOY .Facility:L8Tumzj: 08-29-2022 End: 20-17-2688uhdanmznzzKO IRENA HOY .Facility:A9Bmzmo: 08-11-2022 End: 78-32-1445hyebbvhbapGYAUPA GENE .Facility:Y9Xrqfd: 05-07-2022 End: 52-10-0459ezddvbvdtwFV IRENA HOY .Facility:S8Dxutu: 05-06-2022 End: 41-81-1997ukijstqwvjUB IRENA HOY .Facility:H1 Procedures DateProcedureProcedure DetailPerforming ClinicianStart: 85-10-0796Qcprplcqglw Kim Sarmini Start: 64-58-9882AnfldamdgechstgtgwsdjnjcpvTtpeuwel Sarmini Start: 42-32-9691Ejr brain brain stem w/o w/contrast Malcolm Fajardo MD Work Phone: Start: 81-12-9939LDO screeningDR IRENA HOY .Comment on above:Performed By: #### JOVI #### [facility] [address] [address] [address] Rachel Cortez Plan of Treatment DateCare ActivityDetailAuthorStart: 78-93-4556Tfkdcwzr ScreeningDiabetes ScreeningSumma Health Wadsworth - Rittman Medical Centertart: 21-25-8405Khyqcnykx vaccinationInfluenza Vaccine [facility] SystemStart: 10-07-2024 End: 27-43-1374Qjxkvsj encounter bgqavzmww11/16/2025 1:00 PM EDT Office Visit [facility] [address] [facility], [place] [address] Deo Mendez MD [address] [facility], [address] [place] [address] [facility]/Sleep MedicineStart: 08-20-2024 End: 77-64-5664UJ Chest PA and LateralX-ray chest 2 views Imaging Routine SOB (shortness of breath) Expected: 08/20/2024, Expires: 08/20/2025[facility] Work Phone: Comment on above:Expected: 08/20/2024, Expires: 08/20/2025Start: 83-31-5662Vqvnx BMI ScreeningAdult BMI ScreeningProMercy Health St. [facility] Hospital SystemStart: 75-05-6828Iavcble ScreeningTobacco ScreeningProMercy Health St. [facility] Hospital SystemStart: 55-06-5629Swuzs-19 Vaccine ( season)Covid-19 Vaccine ( season)[facility] Medical Centertart: 41-18-9382Ziurovdad vaccination [facility] Centertart: 11-08-2023 End: 33-20-1016Zhyoguc encounter jnbjvlqie18/17/2024 11:00 AM EDT Office Visit Neurology [address] [place] [address] Gina Dooley APRN.[employer] [address] [place] [address] NeurologyStart: 63-96-1607Jvkanley ScreeningDiabetes ScreeningSumma Health Wadsworth - Rittman Medical Centertart: 39-11-6701Vbcwloyon for malignant neoplasm of colonAvita Health System [facility] Start: 69-44-9240Ibviowwajz Health ScreeningBehavioral Health ScreeningSumma Health Wadsworth - Rittman Medical Centertart: 00-80-9244Axsqr-19 Vaccine ( season)Covid-19 Vaccine ( season)[facility] Centertart: 77-65-0667Gfazx panelLipid Screening [facility] Centertart: 21-17-2072UHrH,Tdap and Td Vaccines (1 - Tdap)DTaP,Tdap and Td Vaccines (1 - Tdap)[facility] Hospitaltart: 18-60-1904Woabpyaby B Vaccine (1 of 3 - 19+ 3-dose series)Hepatitis B Vaccine (1 of 3 - 19+ 3-dose series)[facility] Centertart: 07-05-7406Xbpqg microalbumin profileDTaP,Tdap,Td Vaccine (1 - Tdap)[facility] Centertart: 14-78-3853Zkjaaqw ScreeningAnxiety ScreeningSumma Health Wadsworth - Rittman Medical Centertart: 32-14-8010Eptyxighgm ScreeningDepression ScreeningSumma Health Wadsworth - Rittman Medical Centertart: 06-73-4699Ocdrnoyep C screeningHepatitis C ScreeningSumma Health Wadsworth - Rittman Medical Centertart: 81-78-0452FDW screeningHIV ScreeningSumma Health Wadsworth - Rittman Medical Centertart: 18-73-3781Utahpwukts ScreeningDepression ScreeningC[facility] End: 66-86-7001Rvhhmwdto function test Complete PFT w/ BD (Spirometry (Flow Volume Loop) pre/post short acting bronchodilator w/ DLCO (diffusion study) and Lung Volume)Pulmonary function test Complete PFT w/ BD (Spirometry (Flow Volume Loop) pre/post short acting bronchodilator w/ DLCO (diffusion study) and Lung Volume) PFT Routine SOB (shortness of breath) 1 Occurrences starting 08/20/2024 until 08/20/2025[facility] Work Phone: Comment on above:1 Occurrences starting 08/20/2024 until 08/20/2025[facility] Payers DatePayer CategoryPayerPolicy [id number] [id number]3-6349 Qyyghid68-59678760-01-6819Gfnyzhwlnh Managed Care - [employer] 1.2.840.361764.1.13.424.2.7.9.894886.402.36885-70-1674Lfcs-oiw91-45-0978Utalvef [id number] 2.0.1.104769.3.57[id number] 2.0.1.829825.3.579.2.19126-29-1836Pwnrtzs2301150 2.840.1.435086.3.579.2.40152-66-0282Dnfgkoe1039641 2.0.1.347040.3.579.[id number] 2.16840.1.964806.3.579.2.60945-43-8930Jvgauvy3997735 2.16840.1.956460.3.579.[id number] 2.16840.1.743208.3.579.2.731[id number] 2.840.1.034951.3.579.2.[id number] 2.16.840.1.087968.3.579.[id number] 2.16.840.1.619240.3.579.2.21609-59-8557Sakyhxu48132689 2.16.840.1.644167.3.579.2.54865-43-2527Bqtkzhx92923260 2.16.840.1.604259.3.579.2.10266-88-9405Utdmknn38174105 2.16.840.1.444759.3.579.2.[id number] 2.16.840.1.568804.3.579.2.84480-01-6600Uxepkwc18958865 2.16.840.1.040156.3.579.[id number] 2.16.840.1.143014.3.57[id number] 2.16.840.1.248256.3.579.2.65979-70-1204Zgteiyd997875487652 Social History DateTypeDetailFacilityTobacco smoking status NHISTobacco smoking consumption unknownSumma Health Wadsworth - Rittman Medical Centertart: 65-01-2985Dtx Assigned At BirthNot on file [facility] Centertart: 10-03-2018 End: 61-04-3908Jwvdby identityNot on fileSheltering Arms Hospitaltart: 06-01-2023 End: 08-83-2302Nnyeujf smoking status NHISNever smoked tobaccoAvita Health System [facility] Hospital Start: 06-01-2023 End: 49-16-0978Lxgpbmd use and exposureSmokeless tobacco non-userSumma Health Wadsworth - Rittman Medical Centertart: 10-03-2018 End: 00-18-3806Phnqvnc of Social functionAvita Health System Ontario HospitalNational Score (1-100), lower number is lower ppes25Xfhglq-Pqhyo[address] [place] [address] Digestive HealthStart: 51-04-9714Katwbteyi beverage intakeEx-drinker (finding)[facility] Medical CenterInterpretOmics Start: 11-27-2014 End: 04-36-5627FraYebg (finding)[facility] Pile[employer] Softwareatrium health [facility] OrientationC[facility] Clinic [facility] Goals DatePatient GoalDesired Activity/StatePersonal health goalComment on above: Evaluation of progress towards goal: awaiting test results Functional Status RfzwGbbfetzpvnFuvvmzIbltjswi44-90-5755Daztvagsou StatusN/AFisher - Mercy Medical CenterKpfnzt83-86-1307Ogcmyzvotz StatusN/AFAdena Regional Medical Center Digestive Health Clinical Notes 08-01-2023 to 10-03-2024 Note Date & DugmKgbvPrebcfuz20-62-2068 Miscellaneous Notes* Telephone Encounter - Mitzi Schmidt CMA - 10/03/2024 10:42 AM EDT [employer] called and spoke with patient regarding appointment on 10/07 with [facility] in [place]. [employer] askedpatient if he had his CXR and PFT done elsewhere. Patient said they had their CXR done at [place] a month ago and has the disc with the images but has not has not scheduled the PFT. Patient was advised to take disc to radiology so they can upload into [facility] Pacs and was also given the number for central scheduling to get the PFT scheduled. Patient was asked to call office back once the PFT is scheduled to let us know. Patient was advised the appointment will need to be rescheduled once PFTis scheduled. Patient understood. documented in this encounterWilson Memorial HospitalGIVTED Zrnrtv88-29-3629 Telephone encounter Note* Telephone Encounter - Mitzi Schmidt CMA - 10/03/2024 10:42 AM EDT [employer] called and spoke with patient regarding appointment on 10/07 with [facility] in [place]. [employer] Operator askedpatient if he had his CXR and PFT done elsewhere. Patient said they had their CXR done at [place] a month ago and has the disc with the images but has not has not scheduled the PFT. Patient was advised to take disc to radiology so they can upload into [facility] Pacs and was also given the number for central scheduling to get the PFT scheduled. Patient was asked to call office back once the PFT is scheduled to let us know. Patient was advised the appointment will need to be rescheduled once PFTis scheduled. Patient understood. [facility]05-02-2025 NoteNurse Consultation Note Assessment/Plan 1. H. pylori infection (A04.8: Other [...] hours Tab-ER, Oral, q24hr Allergies No Known AllergiesAs[facility]abula [facility]04-29-2025 Miscellaneous Notes* Telephone Encounter - Nahomi Aaron - 08/20/2024 2:21 PM EDT New patient scheduled 10/07 with [facility] in [place] for SOB. Will need cxr/pft orders. Thanks! documented in this encounterNortheastern Vermont Regional HospitalInflection [facility] Cottage HospitalQnvrvw81-19-7494 Telephone encounter Note* Telephone Encounter - Nahomi Agnieszka - 08/20/2024 2:21 PM EDT New patient scheduled 10/07 with [facility] in [place] for SOB. Will need cxr/pft orders. Thanks! [facility] Medical CenterDynadmic MessagePartyZajjip65-83-6816 Evaluation + Plan note Diagnostic Tests Pending * H. pylori Breath Test 08/15/24 [facility] 03-14-2025 NoteSUBJECTIVE Reason for Visit: Rey Baxter is a 43 y.o. year old male patient being seen for follow-up visit. HPI: Rey Baxter is a 43-year-old male with a history of lumbar radiculopathy, GERD, obstructive sleep apnea (HERIBERTO), fatigue, paroxysmal atrial fibrillation (AFib), and lead toxicity, referred for further evaluation of AFib. He was seen at [facility] in May 2023, where he was apparently [...] of the patient's clinical (more content not included)...[facility]11-04-2024 Hospital Discharge instructions Patient Education 02/26/2024 16:20:34 [...] may be born with a weakness in thehiatus, or a weakness can develop over time. What increases the risk? This condition is more likely to develop in: Older people. Age is a major risk factor for a hiatal hernia, especially if you are over the age of50. women. People who are overweight. People who [...] reduce GERD symptoms. Medicines. These may include: ?Esot-hvx-rwklyfu antacids. ?Medicines that make your stomach empty [...] you need help quitting, ask your health careprovider. Try to achieve and maintain a healthy [...] may include: ?Fatty foods, like fried foods. ?[place] fruits, like oranges or lemon. ?Other foods [...] Do not drink alcohol. General instructions Take zvbm-xxm-unrnttx and prescription medicines only as told by [...] provider. Document Revised: 06/07/2022 Document Reviewed: 06/07/2022 [employer] Patient Education 2023 [employer]. 02/26/2024 16:20:33 Gastritis, Adult, Oyuw-zc-Fwgt Gastritis, Adult Gastritis is irritation and swelling (inflammation) of the stomach. There are two kinds of gastritis: Acute gastritis. This kind develops quickly. Chronic gastritis. This kind is much more common. It develops slowly and lasts for a long time. It is important to get help for this condition. If you do not get help, your stomach can bleed, andyou can get sores (ulcers) in your stomach. [...] Follow these instructions at home: Medicines Take hjtp-igq-aahbeyi and prescription medicines only as told by [...] away. Call your local emergency services (911 int [place] Do not wait to see if [...] provider. Document Revised: 08/14/2021 Document Reviewed: 08/14/2021 [employer] Patient Education 2023 [employer]. 02/26/2024 16:20:32 Endoscopy, Care After Procedure [facility] Endoscopy Care After Procedure Please read the instructions outlined below and refer to this sheet in the next few weeks. These discharge instructions provide you with general information on caring for yourself [facility] Your doctor may also give you [...] blood. Document Released: 11/22/2004 Document Re-Released: 10/02/2006 [employer] Patient Information [employer]. 02/26/2024 16:20:30 Hemorrhoids, Swrd-ty-Hyta Hemorrhoids Hemorrhoids are swollen veins that may [...] Follow these instructions at home: Medicines Take zmgq-zix-gdpxdlr and prescription medicines only as told by [...] 3 4 times a day. You may dothis in a bathtub. You may also use [...] provider. Document Revised: 12/21/2022 Document Reviewed: 12/21/2022 [employer] Patient Education 2023 [employer]. 02/26/2024 16:20:27 Colon Polyps Colon Polyps Colon polyps are tissue growths inside the colon, which is part of the large intestine. They are one of the types of polyps that can grow in the body. A polyp may be a round bump or a mushroom-shapedgrowth. You could have one polyp or more [...] smoking cigarettes, drinking too much alcohol, not gettingenough exercise, and eating a diet that is [...] contain nicotine or tobacco, such as cigarettes, e- cigarettes, and chewing tobacco. If you need help [...] hard liquor (44 mL). General instructions Take ifzx-nxc-hztpbww and prescription medicines only as told by [...] provider. Document Revised: 07/29/2020 Document Reviewed: 07/29/2020 [employer] Patient Education 2023 [employer]. 02/26/2024 16:20:26 Colonoscopy, Care After Surgery [facility] (CUSTOM) Colonoscopy Care After Surgery Please read the instructions outlined below and refer to this sheet in the next few weeks. These discharge instructions provide you with general information on caring for yourself [facility]. Your doctor may also give you [...] Heavy or fried foods are harder to digestand may make you feel nauseated (sick to [...] severe or gets worse throughout the day. [facility] 11-04-2024 NoteProgress Note-Physician Patient: REY BAXTER Age: 43 years Sex: Male : 1980 Associated Diagnoses: None Author: Malachi Garcia MD Postoperative Information Postoperative disposition: Postoperative disposition: To PACU. Optimetrix number: Optimetrix number [id number]. Anesthetic utilized: General. Health Status Allergies: Allergic [...] Discharge when meets criteria ( To home ).[facility] HospitalComment on above:Result Comment: Electronically Signed By: Malachi Garcia MD\.br\Date and Time Signed: 02/26/24 16:33 EST 02-26-2024 NoteProgress Note-Physician Patient: REY BAXTER Age: 43 years Sex: [...] day(s), # 60 cap(s), Refills(s) 3, Pharmacy: [facility], 178, cm, 02/01/24 14:47:00 EDT, Height/Length [...] All Problems Acute cystitis / SNOMED CT 146156531 / Confirmed Atrial fibrillation / SNOMED CT 31208899 / Confirmed Blood lead level above reference range / SNOMED CT 7107412859 / Confirmed Gastritis / SNOMED CT 3821415 / Confirmed Gastroenteritis / SNOMED CT 88381727 / Confirmed Gastroesophageal reflux disease / SNOMED CT 145689420 / Confirmed Inguinal lymphadenopathy / SNOMED CT 006244 / Confirmed Intussusception of small bowel / SNOMED CT 3961580532 / Confirmed Left lower quadrant pain / SNOMED CT 899080816 / Confirmed Lumbar radiculopathy / SNOMED CT 481387138 / Confirmed Obstructive sleep apnea syndrome / SNOMED CT 214818527 / Confirmed Osteoarthritis of knee / SNOMED CT 044516818 / Confirmed Paroxysmal atrial fibrillation / SNOMED CT 517592972 / Confirmed Pleuri (more content not included)...[facility]ula [facility] HospitalComment on above:Result Comment: Electronically Signed By: Jose ROTH, Malachi Rojas\.br\Date and Time Signed: 02/26/24 16:33 [id number] NotePatient Education - Text Endoscopy Care After Procedure Please read the instructions outlined below and refer to this sheet in the next few weeks. These discharge instructions provide you with general information on caring for yourself after you leave thespital. Your doctor may also give you specific [...] any machinery for 24 hours (because of theanesthesia used during the test). NUTRITION ??? Drink [...] Document Re-Released: 10/02/2006 ExitCare??? Patient Information ???2009 [employer]. Colonoscopy Care After Surgery Please read the instructions outlined below and refer to this sheet in the next few weeks. These discharge instructions provide you with general information on [facility] Your doctor may also give you [...] Heavy or fried foods are harder to digestand may make you feel nauseated (sick to [...] with a weaknes (more content not included)... [facility]11-04-2024 NoteEndoscopic Procedure Report - Other Patient: REY BAXTER [...] day(s), # 60 cap(s), Refills(s) 3, Pharmacy: [facility], 178, cm, 02/01/24 14:47:00 EDT, Height/Length [...] the left lateral decubitus position. Endoscope type usedwas an adult-size. The endoscope was lubricated then introduced through the anus. The scope was advanced to the terminal ileum. No difficulties encountered during the procedure. The bowel preparationquality was good and was adequate (see polyps [...] Normal examined terminal ileum Images Procedure images: Rec1_hd_video_2024_11_04T16_22_34_602.jpg Rec1_hd_video_2023__T16__19_505.jpg Rec1_hd_video_2023__T16_21_09_083.jpg Rec1_hd_video_2023__T1__48_624.jpg Rec1_hd_video_2023__T16_13_32_251.jpg Rec1_hd_video_2023__T16_12_56_411.jpg Rec1_hd_video_2023__T16_12_22_128.jpg . Post-Procedure Complications: none. Nyasia (more content not included)...[facility] on above: Result Comment: Electronically Signed By: Julio Mckinley MD\.br\Date and Time Signed: 02/26/24 16:16 ESTOther Comment: Missing Attachment - attachment storage system not supported [id number] Can be viewed in source system Missing Attachment - attachment storage system not supported [id number] Can be viewed in source systemMissing Attachment - attachment storage system not supported [id number] Can be viewed in source systemMissing Attachment - attachment storage system not supported [id number] Can be viewed in source systemMissing Attachment - attachment storage system not supported 1311256 Can be viewed in source systemMissing Attachment - attachment storage system not supported 0301146 Can be viewed in source systemMissing Attachment - attachment storage system not supported 7851325 Can be viewed in source [id number] Note Endoscopic Procedure Report - Other Patient: [...] safety measures. Endoscope type used was an adult- size, introduced orally, advanced to the 3rd portion [...] rule out celiac disease Images Procedure images: Rec1_hd_video_2023__T16__53_306.jpg Rec1_hd_video_2023__T1__35_015.jpg Rec1_hd_video_2023__T16_03_53_396.jpg Rec1_hd_video_2023__T16__39_773.jpg Rec1_hd_video_2023__T16__44_682.jpg Rec1_hd_video_2023__T16__37_632.jpg Rec1_hd_video_2023__T16_02_15_752.jpg . Post-Procedure Complications: none. Estimated blood loss: [...] follow in GI clinic in 1-2 after dischargeAs[facility]ula [facility] HospitalComment on above:Result Comment: Electronically Signed By: Elías ROTH, Julio Pond\.br\Date and Time Signed: 02/26/24 15:56 ESTOther Comment: Missing Attachment - attachment storage system not supported [id number] Can be viewed in source system Missing Attachment - attachment storage system not supported 5571599 Can be viewed in source systemMissing Attachment - attachment storage system not supported 8298997 Can be viewed in source systemMissing Attachment - attachment storage system not supported 9099324 Can be viewed in source systemMissing Attachment - attachment storage system not supported 7024296 Can be viewed in source systemMissing Attachment - attachment storage system not supported 4824119 Can be viewed in source systemMissing Attachment - attachment storage system not supported 2151219 Can be viewed in source [id number] Note History and Physical Patient: REY BAXTER [...] day(s), # 60 cap(s), Refills(s) 3, Pharmacy: [facility], 178, cm, 02/01/24 14:47:00 EDT, Height/Length [...] All Problems Atrial fibrillation / SNOMED CT 46674906 / Confirmed Acute cystitis / SNOMED CT 558684286 / Confirmed Gastritis / SNOMED CT 1663083 / Confirmed Gastroenteritis / SNOMED CT 66172505 / Confirmed Gastroesophageal reflux disease / SNOMED CT 820795117 / Confirmed Blood lead level above reference range / SNOMED CT 2207166237 / Confirmed Left lower quadrant pain / SNOMED CT 622984649 / Confirmed Inguinal lymphadenopathy / SNOMED CT 633898 / Confirmed Obstructive sleep apnea syndrome / SNOMED CT 099486668 / Confirmed Osteoarthritis of knee / SNOMED CT 860344663 / Confirmed Lumbar radiculopathy / SNOMED CT 760815105 / Confirmed Paroxysmal atrial fibrillation / SNOMED CT 368071377 / Confirmed Ventricular bigeminy / SNOMED CT 22161382 / Confirmed Urinary incontinence / SNOMED CT 5502685500 / Confirmed Right upper quadrant pain / SNOMED CT 587622120 / Confirmed Pleurisy / SNOMED CT 574855251 / Confirmed Intussusception of small bowel / SNOMED CT 5827630296 / Confirmed Screen for colon cancer / SNOMED CT 797160375 / Confirmed Histories Past Medical History: No [...] per week Comment: 2-3 per episode-victor manuel murphyde - 03/30/2020 12:04 - Kym RN, Aldo Robles Substance Abuse 02/01/20 (more content not included)...[facility] HospitalComment on above:Result Comment: Electronically Signed By: Julio Mckinley MD\.br\Date and Time Signed: 02/26/24 15:50 [id number] Evaluation + Plan noteExtracted from:Title:ANES Post-operative Note---GeneralAuthor:Malachi Garcia MDDate:02/26/24 Plan Transfer/Discharge: Transfer/Discharge Discharge when meets criteria ( To home ). Extracted from:Title:ANES Pre-operative Note uthor:Malachi Garcia MDDate: 02/26/24 Plan [place] [employer]hesi[employer] (ASA) physical status classification: Class III. Anesthetic Preoperative Plan: Anesthesia General. Extracted from:Title:1Preop H&PAuthor:Julio Mckinley MDate:02/26/24 Impression and Plan Impression: gerd, anemia, screening Plan: -EGD and Colonoscopy Future Appointments Appointment Date:03/11/2024 09:30:00 AM Scheduled Provider:Julio Mckinley MD [facility] Type:[facility] Follow Up [facility] [id number] History of Present illness Narrative* Magda Benitez LPN - 02/09/2024 9:40 AM EDT LVM for Fara Kim at [facility] to notify that office is not [facility] certified and can not accept pt. Left return call back number if any questions or concerns arise. Magda BELLE Benign Hematology documented in this encounterMag[facility]uder [facility] Hospital [id number] History of Present illness Narrative* Magda Benitez LPN - 02/08/2024 9:49 AM EDT Received referral for Dr. Mart from [facility]. Order placed in system and referral scanned into chart. Note written in referral, staff needs to check if Dr. Mart is [facility] certified and if so referral office needs to place a C9. Magda BELLE Benign Hematology documented in this encounterC[facility]24 NoteUT Electrophysiology Consult Note Reason for visit: afib, chest pain , palpitations HPI: Rey Baxter is a 43 y.o. year old with past medical history of Lumbar radiculopathy, GERD, HERIBERTO, fatigue, paroxysmal A-fib,, lead toxicity. Patient was referred to our clinic for A-fib he was seen recently at [facility] and was found to be in [...] toxicity Patient was [facility] to [facility] but it seems as though no one [...] Murmur: not heard Extrem (more content not included)...[facility] 08-10-2023 NoteHNO ID: [id number] Author: JEAN LEY PT Service: ? Author [...] Planned: (4) Planned Treatment Interventions: Neuromuscular re-education (86506), Manual therapy (94078), Therapeutic activities (66693), Self-longterm management (37470), Therapeutic exercise (96898), Patient/Family/Caregiver Education PLAN FOR NEXT VISIT: Patient [...] WITH LEVEL OF FUNCTION: Positional Testing Left [place]-Hallpike: Asymptomatic Right Nylen Barany: Asymptomatic Supine Head [...] Gait and vertical head (more content not included)...[facility] 08-10-2023 History of Present illness Narrative* Jean Ley, PT - 08/10/2023 10:06 AM EDT Program_ID:[id number] Access Code: [email or web address] URL: [email or web address] Date: 08-10-2023 Prepared By: Jean Ley Program [...] Planned: (4) Planned Treatment Interventions: Neuromuscular re-education (39866), Manual therapy (61375), Therapeutic activities (26614), Self-longterm management (71096), Therapeutic exercise (85742), Patient/Family/Caregiver Education PLAN FOR NEXT VISIT: Patient [...] WITH LEVEL OF FUNCTION: Positional Testing Left [place]pike: Asymptomatic Right Nylen Barany: Asymptomatic Supine Head [...] States/Identifies, Return Demonstration TREATMENT: PT Treatment Interventions: Self-[facility] Management, Manual Therapy, Neuromuscular Re-Education Evaluation Therapeutic [...] 932 Jean Ley PT documented in this encounterAv[facility]-2024 NoteUT Electrophysiology Consult Note Reason for visit: afib, chest pain , palpitations HPI: Rey Baxter is a 43 y.o. year old with past medical history of Lumbar radiculopathy, GERD, HERIBERTO, fatigue, paroxysmal A-fib,, lead toxicity. Patient was referred to our clinic for A-fib he was seen recently at [facility] and was found to be in [...] s2, no gallop Systo (more content not included)...[facility] 08-04-2023 Miscellaneous Notes* Telephone Encounter - Zander Denson MA - 08/04/2023 9:08 AM EDT Patient records received via electronic fax. Uploaded to [facility] via [employer]. Please review in scanned documents tab of chart review. Zander Denson MA documented in this encounterAvita Health System [facility] Hospital04-11-2024 NoteHNO ID: [id number] Author: MATTHEW BANERJEE CT Service: ? Author [...] PATIENT PRESENTS WITH AN IMPLANTABLE OR ATTACHED RN RENAL: No ALLERGIES: Reviewed and unchanged CONTRAST ALLERGY: NO. EXAM: MRI - CONTRAST TYPE: GROUP II PERIPHERAL IV DATA: Ambulatory: A peripheral IV was started in the Left antecubital site with a Angio cath: 24 gauge. RADIOLOGY DEPARTMENT: MR; Exam(s) Completed: Head: Routine Brain SIGNATURE: TATI Tolbert PATIENT NAME: Rey Baxter DATE: August 03, 2023 TIME: 3:06 [facility]04-11-2024 History of Present illness Narrative* [...] PATIENT PRESENTS WITH AN IMPLANTABLE OR ATTACHED RN RENAL: No ALLERGIES: Reviewed and unchanged CONTRAST ALLERGY: NO. EXAM: MRI - CONTRAST TYPE: GROUP II PERIPHERAL IV DATA: Ambulatory: A peripheral IV was started in the Left antecubital site with a Angio cath: 24 gauge. RADIOLOGY DEPARTMENT: MR; Exam(s) Completed: Head: Routine Brain SIGNATURE: TATI Tolbert PATIENT NAME: Rey Baxter DATE: August 03, 2023 TIME: 3:06 PM documented in this encounterAvita Health System [facility] Hospital04-10-2024 NoteHNO ID: [id number] Author: JI FAJARDO MD Service: ? 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 Lead is not being chelated at [...] worsening headaches. Pt needs MRI-Brain to r/o HARMONIC ANALYST changes from heavy metal toxicity. Pt can trial nortriptyline 10 mg po qhs in the interim for symptomatic relief. Return 3 months or sooner if needed. Ji Fajardo MD August 04, 2023 2:09 PM documented in this encounterAvita Health System [facility] Hospital04-09-2024 Miscellaneous Notes* Telephone Encounter - Digna Chavez RN - 08/01/2023 5:12 PM EDT Patient calling with request for physician referral: Patient referred to Neurology Department. . Patient denies any new or worsening symptoms of which a provider is not aware: Yes. Ac took call back over for scheduling. documented in this encounterNation[facility] + Plan note Future Appointments Appointment Date:02/26/2024 02:45:00 PM Scheduled Provider: Location:[facility] Appointment Type:Surgery FT Appointment Date:03/11/2024 09:30:00 AM Scheduled Provider:Julio Mkcinley MD [place] Type:[facility] Follow Up [facility] Evaluation note* Diagnosis Worsening headaches- Primary Headache Dizziness Dizziness and giddiness Toxic effect of lead, accidental or unintentional, initial encounter documented [facility] this encounter [facility]* Diagnosis Dizziness Dizziness and giddiness documented in this encounter [facility]* Diagnosis Worsening headaches Headache documented in this encounter [facility] note* Diagnosis Lead toxicity, accidental or unintentional, initial encounter- Primary [facility]* Diagnosis SOB (shortness of breath)- Primary Shortness of breath [facility]* Diagnosis SOB (shortness of breath)- Primary Shortness of breath documented in this encounter [facility] Narrative No data available for this section [facility] Hospital Discharge instructions No data available for this section [facility] InstructionsNot on filedocumented in this encounter [facility] SystemInstructionsNot on filedocumented in this encounter [facility] No data available for this section [facility] Summary Purpose Family History No [...] Family History Records Found Advance Directives Date ActivatedDate InactivatedComments06/01/2023 5:40 PM2 8:56 PMDate ActivatedDate InactivatedComments06/01/2023 5:40 PM2 8:56 PM Reason for Referral SpecialtyDiagnoses / ProceduresReferred By ContactReferred To Contact Diagnoses Worsening headaches Procedures PROVIDER ORDERED FOLLOW UP OFFICE/OUTPATIENT [facility] MDM [address] [place] [address] [place] [address] Referral IDStatusReasonStart DateExpiration DateVisits RequestedVisits [id number] Review PCP Requested Referral [id number] / ProceduresReferred By ContactReferred To ContactREHAB AND SPORTS THERAPY INS Diagnoses Dizziness Procedures CONSULT TO PHYSICAL THERAPY PHYSICAL THERAPY EVALUATION HIGH COMPLEX [address] [place] [address] [place] [address] [facility] [place] [address] [place] [address] Referral IDStatusReasonStart DateExpiration DateVisits RequestedVisits [id number] Review Auto-Generated Referral [id number] / ProceduresReferred By ContactReferred To ContactMR IMAGING Diagnoses Worsening headaches Procedures MRI BRAIN WO/W IVCON MRI BRAIN BRAIN STEM W/O W/[place] [address] [place] [address] [place] [address] Referral IDStatusReasonStart DateExpiration DateVisits RequestedVisits [id number] Auto-Generated Referral Additional Source Comments (unrecognized sect ion and content) No Status Records FoundNo Status Records FoundNo Status Records FoundNo Status Records FoundNo Status Records FoundNo Status Records FoundNo Status Records FoundNo Status Records Found INFORMATION SOURCE (unrecogn ized section and content) DATE CREATED AUTHOR 09/05/2022 [facility] DATE CREATED AUTHOR AUTHOR'S ORGANIZ ATION 06/05/2023 [facility] DATE CREATED AUTHOR AUTHOR'S ORGANIZ ATION 08/14/2023 [facility] DATE CREATED AUTHOR AUTHOR'S ORGANIZ ATION 03/06/2024 [facility] DATE CREATED AUTHOR AUTHOR'S ORGANIZ ATION 03/12/2024 [facility] DATE CREATED AUTHOR AUTHOR'S ORGANIZ ATION 2024 [facility] DATE CREATED AUTHOR AUTHOR'S ORGANIZ ATION 08/27/2024 [facility] DATE CREATED AUTHOR AUTHOR'S ORGANIZ ATION 08/28/2024 [facility] Source Comments (unrecognize d section and content) In the event this informatio n is protected by the Federal Confidentiality of Alcohol and Drug Abuse Patient Records regulations: The Federal rules restrict any use of the information to criminally investigate or prosecute any alcohol or drug abuse patient.[facility] HospitalIn the event this information is protected by the Federal Confidentiality of Alcohol and Drug Abuse Patient Records regulations: The Federal rules restrict any use of the information to criminally investigate or prosecute any alcohol or drug abuse patient.[facility] HospitalIn the event this information is protected by the Federal Confidentiality of Alcohol and Drug Abuse Patient Records regulations: The Federal rules restrict any use of the information to criminally investigate or prosecute any alcohol or drug abuse patient.[facility] HospitalIn the event this information is protected by the Federal Confidentiality of Alcohol and Drug Abuse Patient Records regulations: The Federal rules restrict any use of the information to criminally investigate or prosecute any alcohol or drug abuse patient.[facility] HospitalIn the event this information is protected by the Federal Confidentiality of Alcohol and Drug Abuse Patient Records regulations: The Federal rules restrict any use of the information to criminally investigate or prosecute any alcohol or drug abuse patient.[facility] HospitalIn the event this information is protected by the Federal Confidentiality of Alcohol and Drug Abuse Patient Records regulations: The Federal rules restrict any use of the information to criminally investigate or prosecute any alcohol or drug abuse patient.[facility] Reason for Visit (unrecogniz ed section and content) ReasonCommentsReferral RequestReasonCommentsWorkers compReasonCommentsNew PatientHeadachesSpecialtyDiagnoses / ProceduresReferred By ContactReferred To ContactNeurology / HEADACHE Diagnoses Intake Simon / RM [address] GARCIA, Numbness/tingling, Dizziness, Confusion. Procedures NEW NEUR HEADACHE Ashley Foster, [employer] [address] [place] [address] [place] [address] [place] [address] Referral IDStatusReasonStart DateExpiration DateVisits RequestedVisits [id number]/[id number] EvalSpecialty Diagnoses / ProceduresReferred By ContactReferred To ContactREHAB AND SPORTS THERAPY INS Diagnoses Dizziness Procedures CONSULT TO PHYSICAL THERAPY PHYSICAL THERAPY EVALUATION HIGH COMPLEX [address] [place] [address] [place] [address] [facility] [place] [address] Referral IDStatusReasonStart DateExpiration DateVisits RequestedVisits [id number] Review Auto-Generated Referral [id number] MRISpecialtyDiagnoses / Procedures Referred By ContactReferred To ContactMR IMAGING Diagnoses Worsening headaches Procedures MRI BRAIN WO/W IVCON MRI BRAIN BRAIN STEM W/O W/[place] [address] [place] [address] [place] [address] Referral IDStatusReNorthwest Medical Center DateExpiration DateVisits RequestedVisits [id number] Auto-Generated Referral Care Teams (unrecognized sec tion and content) Team MemberRelationshipSpecialtyStart DateEnd Date Mitul Pitt [address] [place] [address] 06/26/23 Ashley Foster CNP [address] [place] [address] ReferringFaspringfield hospital medical center Medicine07/26/23Team MemberRelationshipSpecialtyStart DateEnd Date Mitul Pitt [address] [place] [address] 06/26/23 Ashley Foster CNP [address] [place] [address] ReferringFaspringfield hospital medical center Medicine07/26/23Team MemberRelationshipSpecialtyStart DateEnd Date Mitul Pitt [address] [place] [address] 06/26/23 Ashley Foster CNP [address] [facility] [place] [address] ReferringFamily Medicine07/26/23Team MemberRelationshipSpecialtyStart DateEnd Date Mitul Pitt [address] [place] [facility] [address] 06/26/23 Ashley Foster CNP [address] [facility] [place] [address] ReferringFamily Medicine07/26/23Team MemberRelationshipSpecialtyStart DateEnd Date Mitul Pitt [address] [place] [facility] [address] 06/26/23 Ashley Foster CNP [address] [facility] [place] [address] ReferringFamily Medicine07/26/23Team MemberRelationshipSpecialtyStart DateEnd Date Mitul Pitt, MARY [address] [place] [facility] [address] 06/26/23 Ashley Foster CNP [address] [facility] [place] [address] ReferringFamily Medicine07/26/23Team MemberRelationshipSpecialtyStart DateEnd Date Irena Jeffery MD PCP - GeneralFamily Medicine06/01/23Team MemberRelationshipSpecialtyStart DateEnd Date Irena Jeffery MD [facility]06/01/23Te MemberRelationshipSpecialtySteva DateEnd Date Irena Jeffery MD [facility]06/01/23Te MemberRelationshipSpecialtySelden DateEnd Irena Jeffery MD [facility]06/01/23 FOR RECORDS PERTAINING TO PATIENTS WHO ARE [...] BE BASED ON THE PRIMARY CLINICAL RECORDS. [facility] [employer] [facility]. provides no warranty or guarantee of the accuracy or completeness of information in this document.
--- OUTSIDE RECORDS SUMMARY | 2025-02-28 06:51 | XMS_ITS | Patient Health Record ---
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 Ordering Physician: Irena Jeffery M.D. Date of Service: 08/28/24 Procedure(s): US right upper quadrant Accession Number(s): [id number] cc: Irena Jeffery M.D. [place] [address] Patient Name: YAMILET BAXTER MRN: [id number] date: 1980 Sex: M Assigned Patient Location: US Current Patient Location: US Accession/Order Number: [id number] Exam Date: 08/28/2024 09:55 Report Date: 08/28/2024 09:58 At the request of: IRENA JEFFERY MD Procedure: US right upper quadrant LIMITED ABDOMINAL ULTRASOUND: CLINICAL HISTORY: Right Upper Abdominal Pain COMPARISON: Ultrasound 12/15/2023 TECHNIQUE: Grayscale and color Doppler images of the right upper quadrant organs were obtained. FINDINGS: Pancreas: Visualized portions appear unremarkable. Liver: Unremarkable. Gallbladder: Unremarkable. CBD: 4.5 mm RT KIDNEY: Right nephrolithiasis largest measuring 8 mm. No hydronephrosis. US/US right upper quadrant IMPRESSION: RIGHT NEPHROLITHIASIS. NO HYDRONEPHROSIS. NO ACUTE PROCESS.. Impression dictated by: Moris Pichardo Jr. DJoaquinOJoaquin 08/28/2024 9:58 AM Dictation Location: [place] [address] Electronically authenticated by: [id number] Y Date: 08/28/2024 09:58 Dictated By: Moris Pichardo M.D. Signed By: 08/28/24 1001 DD/ 0958 TD/TT: Professor Of English: XR ribs RT min 3V w CXR1V Reviewed date:08/27/2024 12:52:20 PM Interpretation: Performing Lab: Notes/Report: Source Facility: [place] [address] XRay Report Signed Patient: YAMILET BAXTER MR#: [id number] : 1980 Acct:[id number] Age/Sex: 44 / M ADM Date: 08/27/24 Loc: RAD Attending Dr: Irena Jeffery M.D. Ordering Physician: Irena Jeffery M.D. Date of Service: 08/27/24 Procedure(s): XR ribs RT min 3V w CXR1V Accession Number(s): [id number] cc: Irena Jeffery M.D. [place] [address] Patient Name: YAMILET BAXTER MRN: [id number] date: 1980 Sex: M Assigned Patient Location: RAD Current Patient Location: RAD Accession/Order Number: [id number] Exam Date: 08/27/2024 11:53 Report Date: 08/27/2024 11:54 At the request of: IRENA JEFFERY MD Procedure: XR ribs RT min 3V w CXR1V PA CHEST WITH 5 VIEWS RIGHT RIBS: CLINICAL HISTORY: Chest Wall Pain, Right Upper Quadrant Pain COMPARISON: None FINDINGS: Heart is normal in size. Evidence old granulomatous disease. No consolidation pneumothorax pleural effusion or free air. No displaced right-sided rib fracture is seen. XR/XR ribs RT min 3V w CXR1V IMPRESSION: No acute findings. Impression dictated by: Moris Pichardo Jr., D.OJoaquin 08/27/2024 11:54 AM Dictation Location: [place] [address] Electronically authenticated by: [id number] Y Date: 08/27/2024 11:54 Dictated By: Moris Pichardo M.D. Signed By: 08/27/24 1156 DD/ 1154 TD/TT: Professor Of English: CT head/brain wo con Reviewed date:03/21/2024 06:21:06 PM Interpretation: Performing Lab: Notes/Report: Source Facility: [place] [address] CT Scan Report Signed Patient: YAMILET BAXTER MR#: [id number] : 1980 Acct:[id number] Age/Sex: 43 / M ADM Date: 03/20/24 Loc: CT Attending Dr: Irena Jeffery M.D. Ordering Physician: Irena Jeffery M.D. Date of Service: 03/20/24 Procedure(s): CT head/brain wo con Accession Number(s): [id number] cc: Irena Jeffery M.D. [place] [address] Patient Name: YAMILET BAXTER MRN: [id number] date: 1980 Sex: M Assigned Patient Location: CT Current Patient Location: CT Accession/Order Number: [id number] Exam Date: 03/20/2024 15:11 Report Date: 03/21/2024 07:34 At the request of: IRENA JEFFERY Procedure: CT head/brain wo con EXAMINATION: CT head/brain wo con HISTORY: Head Mass ; pain and lump posterior head for several weeks; no known injury COMPARISON: No relevant comparison available. TECHNIQUE: Axial CT images were obtained without IV contrast. Dose reduction techniques were achieved by using automated exposure control and/or adjustment of mA and/or kV according to patient size and/or use of iterative reconstruction technique. FINDINGS: BRAIN: No edema, hemorrhage, mass, acute infarction, or inappropriate atrophy. CSF SPACES: No hydrocephalus, subarachnoid hemorrhage, or mass. Appropriate for age. SKULL: No fracture, mass, or other significant visible lesion. SINUSES: No significant mucosal thickening or fluid on the limited views. ORBITS: No appreciable abnormality on the limited views. OTHER: Negative CT/CT head/brain wo con IMPRESSION: 1. Normal CT appearance of the brain. 2. No appreciable abnormality calvarium. 3. No appreciable abnormality of the posterior scalp. Electronically authenticated by: MARTIN TREVINO Date: 03/21/2024 07:34 Dictated By: Martin Trevino M.D. Signed By: 03/21/2437 DD/ TD/TT: Professor Of English: US soft tissue head and neck Reviewed date:03/21/2024 06:21:06 PM Interpretation: Performing Lab: Notes/Report: Source Facility: [place] [address] [place] [address] Ultrasound Report Signed Patient: YAMILET BAXTER MR#: [id number] : 1980 Acct:[id number] Age/Sex: 43 / M ADM Date: 03/20/24 Loc: CT Attending Dr: Irena Jeffery M.D. Ordering Physician: Irena Jeffery M.D. Date of Service: 03/20/24 Procedure(s): US soft tissue head and neck Accession Number(s): [id number] cc: Irena Jeffery M.D. [place] [address] Patient Name: YAMILET BAXTER MRN: [id number] date: 1980 Sex: M Assigned Patient Location: CT Current Patient Location: Accession/Order Number: [id number] Exam Date: 03/20/2024 15:30 Report Date: 03/21/2024 06:34 At the request of: IRENA JEFFERY Procedure: US soft tissue head and neck EXAMINATION: US soft tissue head and neck HISTORY: Head Mass ; 3 palpable lumps along left side of neck COMPARISON: No relevant comparison available. FINDINGS: Corresponding to patient's palpable lumps are 3 benign-appearing lymph nodes, largest is 1.0 x 0.8 x 0.5 cm. US/US soft tissue head and neck IMPRESSION: 1. Benign-appearing lymph nodes corresponding to patient's palpable lumps. No additional follow-up recommended at this time. Electronically authenticated by: MARTIN TREVINO Date: 03/21/2024 06:34 Dictated By: Martin Trevino M.D. Signed By: 03/21/24637 DD/ 3 TD/TT: Professor Of English: REBECCA knee LT 4V Reviewed date:10/03/2024 09:28:39 PM Interpretation: Performing Lab: Notes/Report: Source Facility: [place] [address] XRay Report Signed Patient: YAMILET BAXTER MR#: [id number] : 1980 Acct:[id number] Age/Sex: 44 / M ADM Date: 10/03/24 Loc: ER Attending Dr: Ordering Physician: Cassie Abraham Date of Service: 10/03/24 Procedure(s): XR knee LT 4V Accession Number(s): [id number] cc: Cassie Abraham; Irena Jeffery M.D. [place] [address] Patient Name: YAMILET BAXTER MRN: [id number] date: 1980 Sex: M Assigned Patient Location: ER Current Patient Location: ER Accession/Order Number: [id number] Exam Date: 10/03/2024 19:24 Report Date: 10/03/2024 19:25 At the request of: CASSIE CEBALLOS Procedure: XR knee LT 4V 3 views left knee plain film COMPARISON: 09/20/2023 HISTORY: Medial left knee pain for 4 days. No injury ACUTE FINDINGS: No acute findings DEGENERATIVE CHANGE: Unremarkable SOFT TISSUE FINDINGS: Unremarkable JOINT EFFUSION: None POSTOP CHANGES: None BONE MINERALIZATION: Adequate XR/XR knee LT 4V IMPRESSION: No acute bony findings or significant degeneration. Impression dictated by: Mckinley Palomino M.D. 10/03/2024 7:25 PM Dictation Location: [place] [address] Electronically authenticated by: [id number] Y Date: 10/03/2024 19:25 Dictated By: Mckinley Palomino D.O. Signed By: 10/03/241926 DD/ 24 TD/TT: Professor Of English: XR lumbar spine 2-3V Reviewed date:10/03/2024 09:28:39 PM Interpretation: Performing Lab: Notes/Report: Source Facility: [place] [address] XRay Report Signed Patient: YAMILET BAXTER MR#: [id number] : 1980 Acct:[id number] Age/Sex: 44 / M ADM Date: 10/03/24 Loc: ER Attending Dr: Ordering Physician: Cassie Abraham Date of Service: 10/03/24 Procedure(s): XR lumbar spine 2-3V Accession Number(s): [id number] cc: Cassie Abraham; Irena Jeffery M.D. [place] [address] Patient Name: YAMILET BAXTER MRN: [id number] date: 1980 Sex: M Assigned Patient Location: ER Current Patient Location: ER Accession/Order Number: [id number] Exam Date: 10/03/2024 19:25 Report Date: 10/03/2024 19:27 At the request of: CASSIE CEBALLOS Procedure: XR lumbar spine 2-3V 2 views Lumbar Spine HISTORY: Lumbar pain for 4 days. No injury COMPARISON: None POSTSURGICAL CHANGES: None BONY ALIGNMENT: Adequate HYPERMOBILITY:No bending imaging. LISTHESIS:None FRACTURE: None DEGENERATIVE CHANGES: Endplate spurring multiple levels of lumbar spine. Adequate disc spaces. Lower lumbar facet degeneration. SOFT TISSUES: Unremarkable BONY MINERALIZATION:Adequate XR/XR lumbar spine 2-3V IMPRESSION: Degenerative change greatest at the lower facets. Impression dictated by: Mckinley Palomino M.D. 10/03/2024 7:27 PM Dictation Location: [place] [address] Electronically authenticated by: [id number] Y Date: 10/03/2024 19:27 Dictated By: Mckinley Palomino D.O. Signed By: 10/03/241928 DD/ 26 TD/TT: Professor Of English: Lead, Blood (Adult) Reviewed date:07/10/2024 07:47:59 PM Interpretation: Performing Lab: Notes/Report: Repeat Venous No White/ [facility] , Lead, Blood (Adult) 10.3 0.0-3.4 ug/dL Testing performed by Inductively coupled plasma/Mass Spectrometry. Verified by repeat analysis Analysis by inductively coupled plasma/mass spectrometry (ICP/MS) This test was developed and its performance characteristics determined by [facility]. It has not been cleared or approved by the Food and Drug Administration. Environmental Exposure: WHO Recommendation <5.0 Occupational Exposure: OSHA Lead Std 40.0 CHAZ 30.0 Detection Limit = 1.0 Performed at: [address] [id number] Tobacco Wetter: Mejia Zacarias PhD, Phone: [phone] Performing Lab: see note [facility] LBPROF 14(COMP METB) Reviewed date:07/07/2024 03:07:01 PM Interpretation: Performing Lab: Notes/Report: [facility] ,Aewucq432040-966 mmol/LPotassium4.43.5-5.1 mmol/YCzxcjidk49196-920 mmol/LCarbon Skwkcvm31.621.0-32.0 mmol/LAnion Gap9.2Aswcnvw3956-884 mg/dLBlood Urea Nitrogen 13.07.0-18.0 mg/dLCreatinine1.310.70-1.30 mg/dLEstimated GFR ( Mana>60 >=60 mL/min/1.73m 2Estimated GFR (Non- Ame59>=60 mL/min/1.73m 2BUN Creatinine Ratio9.1Fxxdhrx0.88.5-10.1 mg/dLBilirubin Total0.40.2-1.0 mg/dL Aspartate Amino Qkabxsjqnkq4069-34 U/LAlanine Rodawviqyowalgjq5745-01 U/L Alkaline Zelxbfmohdt37499-049 U/LTotal Protein6.86.4-8.2 g/dLAlbumin Level3.8 3.4-5.0 g/dLGlobulin3.0Albumin Globulin Ratio1.3Performing Lab:see noteML - [facility] LBLIPID PROFILE Reviewed date:07/07/2024 03:07:01 PM Interpretation: Performing Lab: Notes/Report: [facility] ,Ezdhgbvverhjo555<=150 mg/fNRkbdahwfafn006<=200 mg/dLHDL Cfomrpsbyue4475-58 mg/dL > or =60 mg/dl - LOW CARDIOVASCULAR RISK <40 mg/dl - HIGH CARDIOVASCULAR RISK LDL Cholesterol Ttxncnuqvd675.0 <100 mg/dl OPTIMAL 100-129 mg/dl NEAR OR ABOVE OPTIMAL 130-159 mg/dl BORDERLINE HIGH 160-189 mg/dl HIGH >190 mg/dl VERY HIGH VLDL PQSSASICLCA46.0Chol HDL Ratio4.4 3.3 - 4.4 LOW RISK 4.4 - 7.1 AVERAGE RISK 7.1 - 11.0 MODERATE RISK >11.0 HIGH RISK Performing Lab:see noteML - [facility] LBCBC AUTO DIFF Reviewed date:07/07/2024 03:07:01 PM Interpretation: Performing Lab: Notes/Report: [facility] ,White Blood Count5.64.0-11.0 10 3/uLRed Blood Count4.744.70-6.10 10 6/uL Ynagbqcbmb17.814.0-18.0 g/pLZihewgqwus28.742.0-54.0 %Mean Corpuscular Aavhnw19.0 80.0-94.0 fLMean Corpuscular Khguxwnezf78.225.9-34.0 pgMean Corpuscular HGB Conc 35.529.9-35.2 g/dLRed Cell Distribution Width12.011.0-15.0 %Platelet Bwoym285 150-450 10 3/uLMean Platelet Qroodj79.29.5-13.5 fLNeutrophils Percent Auto60.3 43.0-75.0 %Lymphocytes Percent Auto24.820.5-60.0 %Monocytes Percent Auto10.21.7- 12.0 %Eosinophils Percent Auto3.40.9-7.0 %Basophils Percent Auto0.90.2-2.0 % Immature Granulocytes Pct Auto0.40.0-0.5 %Neutrophils Absolute Auto3.41.4-6.5 10 3/uLLymphocytes Absolute Auto1.41.2-3.8 10 3/uLMonocytes Absolute Auto0.60.3-0.8 10 3/uLEosinophils Absolute Auto0.20.0-0.7 10 3/uLBasophils Absolute Auto0.10.0- 0.1 10 3/uLImmature Granulocytes Abs Auto0.020.00-0.03 10 3/uLPerforming Lab:see noteML - [facility] LB Reason For Referral No Information Medications Medication SIG (Take, Route, Frequency, Duration) Notes Start Date End Date Status Wellbutrin XL 300 MG 1 tablet in the mor ailyn Orally Once a day; Duration: 30 days 4ActiveCeleBREX 200 MG1 capsule with food Orally Once a day; Duration: 30 days5Active Social History Tobacco Use: Social History Observation Description Date Details (start date - stop date) Never Smoker NA - NA Alcohol Screen (Audit-C) Question Answer Notes Did you have a drink containing alcohol in the p ast year? Yes How often did you have 6 or more drinks on one occasion in the past year?Monthly or less (1 point)How many drinks did you have on a typical day when you were drinking in the past year?1 or 2 drinks (0 point)How often did you have a drink containing alcohol in the past year?Weekly (3 points)Kkpqpo8Cguehixreqwsuq PositiveTobacco Control (Standard) Question Answer Notes Tobacco use: Nonsmoker AUDIT-C (Standard) Question Answer Notes Did you have a drink containing alcohol in the p ast year? No Dgkpxw4ZwjllvmckcxhtkCefachvl Problems Problem Type SNOMED Code ICD Code Onset Dates Problem Status W/U Status Risk Notes Problem Syncope and collapse (174443215) Syncope and collapse (R55) ActiveconfirmedProblemParoxysmal atrial fibrillation (771249374)Paroxysmal atrial fibrillation (I48.0)ActiveconfirmedProblemAtrial premature depolarization (498338655)Atrial premature depolarization (I49.1)ActiveconfirmedProblemCardiac arrhythmia (125222666)Other specified cardiac arrhythmias (I49.8)Activeconfirmed ProblemPleurisy (976671536)Pleurisy (R09.1)ActiveconfirmedProblemIncreased blood lead level (407946330)Abnormal lead level in blood (R78.71)Activeconfirmed ProblemTraumatic amputation, finger, through metacarpophalangeal joint (383768334)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, 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)ActiveconfirmedProblemChest pain (44461110) Chest pain (R07.9)ActiveconfirmedProblemFatigue (79447619)Fatigue (R53.83)Active confirmedProblemAtrial fibrillation (47935403)Atrial fibrillation (I48.91)Active confirmedProblemGastroesophageal reflux disease (145205008)GERD (gastroesophageal reflux disease) (K21.9)ActiveconfirmedProblemDyspnea (855859462)Dyspnea (R06.00)ActiveconfirmedProblemKnee pain (1638625045)Knee pain (M25.569)ActiveconfirmedProblemOsteoarthritis of knee (690194648)Knee osteoarthritis (M17.9)ActiveconfirmedProblemPain in limb (64897038)Hand pain, right (M79.641)ActiveconfirmedProblemLumbar radiculopathy (686924359)Lumbar radiculopathy (M54.16)ActiveconfirmedProblemBronchitis (69067972)Bronchitis (J40)ActiveconfirmedProblemSinusitis (18409023)Sinusitis (J32.9)Activeconfirmed ProblemGastritis (0356144)Gastritis (K29.70)ActiveconfirmedProblemUpper respiratory infection (57113586)Upper respiratory infection (J06.9)Active confirmedProblemMass of neck (746820198)Neck mass (R22.1)ActiveconfirmedProblem Otitis externa (8459248)Otitis externa (H60.90)ActiveconfirmedProblemContact dermatitis (72587813)Contact dermatitis (L25.9)ActiveconfirmedProblemPanic (29466407)Panic (F41.0)ActiveconfirmedProblemRight upper quadrant pain (814558998)Right upper quadrant abdominal pain (R10.11)ActiveconfirmedProblem Gastroenteritis (50657941)Gastroenteritis (K52.9)ActiveconfirmedProblemSkin sensation disturbance (42374558)Paresthesias/numbness (R20.9)Activeconfirmed ProblemAcute bronchiolitis (0681144)Acute bronchiolitis (J21.9)Activeconfirmed ProblemDerangement of knee (41482278)Internal derangement of knee, left (M23.92) ActiveconfirmedProblemSwelling of head (687491095)Head mass (R22.0)Active confirmedProblemObstructive sleep apnea syndrome (64348396)Mild obstructive sleep apnea (G47.33)ActiveconfirmedProblemAcute cystitis (89248313)Acute cystitis (N30.00)ActiveconfirmedProblemInternal derangement of knee (05747006) Internal derangement of knee (M23.90)ActiveconfirmedProblemIngrowing nail with infection (461945870)Ingrowing nail with infection (L60.0)ActiveconfirmedProblem Inguinal lymphadenopathy (982681461)Inguinal lymphadenopathy (R59.0)Active confirmedProblemExudative pharyngitis (323096490)Exudative pharyngitis (J02.9) ActiveconfirmedProblemUrinary incontinence (139038765)Enureses (R32)Active confirmedProblemMixed anxiety and depressive disorder (008508205)Anxiety and depression (F41.8)ActiveconfirmedProblemLeft lower quadrant pain (506437342)Left lower quadrant abdominal pain (R10.32)ActiveconfirmedProblemCOVID-19 (918621555) COVID-19 (U07.1)ActiveconfirmedProblemDisease caused by Severe acute respiratory syndrome coronavirus 2 (disorder) (828496676)COVID-19 virus infection (U07.1) ActiveconfirmedProblemLow back pain (952787243)Low back pain, unspecified (M54.50)Activeconfirmed Vital Signs Heart Rate 76 /min 05/23/2024 Abjuowkplxs69.3 degrees Wqdtzmxvnc19/24/3285Eshdohyh59 %05/23/2024lood pressure sndhtsgco57 mm Hg02/21/20256703Bhddcq26 in02/21/2025lood pressure psqkoauf954 mm Hg 02/21/20253349Rqextv820.0 lbs1MI25.25 kg/m202/21/2025 Encounters Encounter Location Date Provider Diagnosis [address] [address] 08/27/2024 Titi Hoy Acute bronchitis, unspecified organism J20.9 ; Chest wall pain R07.89 and Right upper quadrant abdominal pain of unknown etiology R10.[address] [address] 03/13/2024 Titi Hoy Head mass R22.0 and Neck mass R22.[address] [address] 05/23/2024 Carol Ann Kavita Depression F32.A and URI (upper respiratory infection) J06.[address] [address] 07/15/2024 Titi Hoy GERD (gastroesophageal reflux disease) K21.[address] [address] 02/21/2025 Titi Hoy Internal derangement of knee M23.90 and Internal derangement of knee, left M23.[address] [address] 02/29/2024 Titi [facility] [place] [place] [address] 03/21/2024oug [facility] [place] [address]/Doug [facility] [place] [address]/[facility] [facility] [place] [address]/Arden [facility] [place] [address]/09/2024[facility] [place] [address]/10/2024 Titi [facility] [place] [address]/05/20[facility] Date Diagnosis (ICD Code) Assessment Notes Treatment Notes Treatment Clinical Notes Section Notes 03/13/2024 Head mass (ICD-10 - R22.0) 03/13/2024Neck mass (ICD-10 - R22.1)05/23/2024Depression (ICD-10 - F32.A) increase dose, fu if not bjyajfwsh63/30/2025URI (upper respiratory infection) (ICD-10 - J06.9)COVID and flu neg07/15/2024GERD (gastroesophageal reflux disease) (ICD-10 - K21.9)needs trelegy if not better with treating reflux 08/27/2024ute bronchitis, unspecified organism (ICD-10 - J20.9)Right sided rib pain08/27/2024hest wall pain (ICD-10 - R07.89)02/21/2025Internal derangement of knee (ICD-10 - M23.90)02/21/2025Internal derangement of knee, left (ICD-10 - M23.92)08/27/2024Right upper quadrant abdominal pain of unknown etiology (ICD-10 - R10.11)02/21/2025Other> 3 monts doing home ICe -0 , brace nsaids - celbrex - not improving - actural worse- + Zhane- medial meniscus tear suspected Plan Of Treatment Pending Test Test Name Order Date CMP (COMPLETE METABOLIC PANEL) 3 HEMOGLOBIN A1C (GLYCO) 11/07/2022 INSULIN, TOTAL 11/07/2022 LIPID PANEL (CHOL/TRIG/HDL/LDL) 11/08/19 23 CBC WITH DIFF 11/07/2022 PSA, PROSTATE-SPECIFIC ANTIGEN 3 CT Abdomen and Pelvis w/contrast * 07/09 LEAD 10/03/2022 PFT Complete 02/22/2024 Lead, Blood (Adult) (LC) 05/01/2023 Lead, Blood (Adult) (LC) 08/29/2022 CT Chest w/Contrast 12/31/2023 CT Brain w/o Contrast 03/13/2024 BNP 11/14/2022 LEAD,ADULT 11/03/2022 THYROID PROFILE WITH TSH 08/29/2022 TROPONIN, HIGH SENSITIVITY 11/14/2022 CT ABD and PELV W CON 12/17/2023 MRI KNEE LT WO CON 02/21/2025 US ABD 08/27/2024 US ABD 12/06/2023 XR ABD FLAT UP_PA CH 01/11/2024 XR CHEST 2 V 11/14/2022 THYROID PANEL (T4/TSH/FREE T3) 3 XR ribs RT 2V 08/27/2024 Insurance Providers Payer Name Payer Address Payer Phone Subscriber Number Group Number Insured Name Patient Relationship to Insured Coverage Start Date Coverage End Date [employer] [address] [place] [address] [id number] Hector Baxterelf - patient is the insured Medications Administered Medication Instructions Date of Administration Dosage Notes Kenalog-40 mgKetorolac Ksduzzoamrgb36/29/745215 mg60 Medical (General) History Medical History History ICD Code Lumbar radiculopathy M54.16 GERD (gastroesophageal reflux disease) K 21.9 Mild obstructive sleep apnea G47.33 Inguinal lymphadenopathy R59.0 Complete traumatic metacarpo phalangeal amputation of left little finger, initial encounter S68.117A COVID-19 virus infection U07.1 Acute cystitis N30.00 Paresthesias/numbness R20.9 Low back pain, unspecified M54.50 Fatigue R53.83 Acute bronchiolitis J21.9 Gastroenteritis K52.9 Pleurisy R09.1 Hand pain, right M79.641 Bronchitis J40 Sinusitis J32.9 Upper respiratory infection J06.9 Enureses R32 Contact dermatitis L25.9 Exudative pharyngitis J02.9 Ingrowing nail with infection L60.0 Gastritis K29.70 Dyspnea R06.00 small bowel intussusception Surgical History Surgery Date(Month/Year) Left pinky finger Hospitalization History Reason Date(Month/Year) Left pinky finger
--- OUTSIDE RECORDS SUMMARY | 2025-02-28 06:51 | XMS_ITS | Clinical Summary ---
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 Name Role Phone Jos Gardner MD Primary Care Provider [phone] Rebecca Schneider MD Unavailable [phone] Allergies No known active allergies Medications MedicationSigDispense QuantityRefillsLast FilledStart DateEnd DateStatus pantoprazole (Protonix) 40 mg EC tablet every 12 (twelve) hours.09/08/2023ctive sucralfate (Carafate) 1 gram tablet every 6 (six) hours.4Active buPROPion XL (Wellbutrin XL) 300 mg 24 hr tablet Take 300 mg by mouth in the morning.5Active cetirizine (ZyrTEC) 10 mg tablet Take 10 mg by mouth in the morning.Active Active Problems ProblemNoted DateDiagnosed DateAcute ctpdpsry28/14/2025olon mfzkaf1807/05/2024 Elevated blood lead level07/05/2024Gastroesophageal reflux zrhptob0007/05/2024 A-fibigeminy Family History Medical HistoryRelationNameCommentsLupusMotherMuscular dystrophyMotherDiabetes OthersonRelationNameStatusCommentsMotherOtherson Social History Tobacco UseTypesPacks/DayYears UsedDateSmoking Tobacco: NeverPassive Smoke Exposure: NeverSmokeless Tobacco: Never Tobacco Cessation:Counseling Given: Not Answered Alcohol UseStandard Drinks/WeekCommentsYes0 (1 standard drink = 0.6 oz pure alcohol)Humiliation, Afraid, Rape, and Kick questionnaireAnswerDate Recorded Within the last year, have you been afraid of your partner or ex-partner?No 06/20/2023Emotionally AbusedNot on file06/20/2023hysically AbusedNot on file 06/20/2023Sexually AbusedNot on file06/20/2023UT Safety & EnvironmentAnswerDate RecordedWithin the last year, have you been afraid of your partner or ex-partner?No06/20/2023Emotionally AbusedNot on file06/20/2023hysically Abused Not on file06/20/2023Sexually AbusedNot on file06/20/2023hysically or Sexually AbusedNot on file06/20/2023Sex and Gender InformationValueDate RecordedSex Assigned at WrccrRnrz56/28/2024 8:46 AM ESTLegal FuaXfgr3205/11/2023 11:28 AM EST Gender DisspeduGfre76/28/2024 8:46 AM ESTSexual OrientationHeterosexual or Taiistvb44/28/2024 8:46 AM EST Last Filed Vital Signs Vital SignReadingTime TakenCommentsBlood Lkgpujei402/76007/05/2024 2:00 PM EDT Ffvcs545507/05/2024 2:00 PM EDTTemperature--Respiratory Nahw484406/21/2023 2:03 PM ESTOxygen Emygpweazo56%07/05/2024 2:00 PM EDTInhaled Oxygen Concentration-- Olngyf57.7 kg (169 lb)07/05/2024 2:00 PM ODLKymdod837.8 cm (5' 10 )07/05/2024 2:00 PM EDTBody Mass Index24.25007/05/2024 2:00 PM EDT Plan of Treatment Health MaintenanceDue DateLast DoneCommentsCT Btzddimngcit18/06/1979FIT-DNA 1978FIT1978FOBT07/28/19789739Rzohntokcoqbb10/06/1979Depression Screening 1990Hepatitis B Vaccines (1 of 3 - 19+ 3-dose series)1997Adult Nqaefdl3107/28/2000Influenza Vaccine (#1)2024Zoster Vaccines (1 of 2) 07/28/20287358Fksnzjlqnma44olorectal Cancer Sxchskfzf10/04/2034 HIB VaccinesAged OutNo longer eligible based on patient's age to complete this topicHPV VaccinesAged OutNo longer eligible based on patient's age to complete this topicIPV VaccinesAged OutNo longer eligible based on patient's age to complete this topicMeningococcal B VaccineAged OutNo longer eligible based on patient's age to complete this topicMeningococcal VaccineAged OutNo longer eligible based on patient's age to complete this topicPneumococcal Vaccine: Pediatrics (0 to 5 Years) and At-Risk Patients (6 to 64 Years)Aged OutNo longer eligible based on patient's age to complete this topicRotavirus VaccinesAged Out No longer eligible based on patient's age to complete this topic Insurance Care Teams Team MemberRelationshipSpecialtyStart DateEnd Jos Gardner MD [address] [facility] [address] [address] PCP - General06/08/23 Rebecca Schneider MD [address] [place] [phone] Consulting PhysicianHematology and Oncology06/20/23
--- NOTE | 2025-02-28 06:57 | MR_ITS ---
[address] [address] Patient Name: YAMILET WHITAKER MRN: [id number] date: 1980 Sex: M Assigned Patient Location: MRI Current Patient Location: MRI Accession/Order Number: [id number] Exam Date: 02/28/2025 07:10 Report Date: 02/28/2025 09:14 At the request of: IRENA JEFFERY MD Procedure: MR knee LT wo con MR knee LT wo con 02/28/2025 7:48 AM SIGNS AND SYMPTOMS: Internal Derangement Of Left Knee PROTOCOL: Multiplanar multisequence MR images of the left knee without IV contrast COMPARISON: None. FINDINGS: Fluid: There is a small joint effusion.. Medial compartment: Medial meniscus: Intact. There is a predominantly horizontally oriented but mildly complex tear of the posterior horn and body of the medial meniscus. No fragments. Medial collateral ligament: Intact. Medial femoral condyle cartilage: Preserved. Medial tibial plateau cartilage: Preserved. Lateral compartment: Lateral meniscus: Intact. Lateral collateral ligament: Intact. Lateral femoral condyle cartilage: Preserved. Lateral tibial plateau cartilage: Preserved. Posterolateral corner: Popliteus tendon: Intact. Popliteofibular ligament: Intact. Proximal tibiofibular joint: Preserved. Anterior compartment: Alignment: Normal. Quadriceps tendon: Intact. Patellar tendon: Intact. Retinaculum: Medial intact. Lateral intact. Patellar cartilage: Preserved. Trochlea: Preserved.. Plica: None Hoffa fat pad: Normal Intercondylar compartment: Anterior cruciate ligament: Intact. Posterior cruciate ligament: Intact. Bones (other than subarticular marrow): There is subtle subcortical edema along the medial corner of the medial tibial plateau Muscles: Normal. Vessels: Normal. Nerves: Normal. MR/MR knee LT wo con IMPRESSION: There is a predominantly horizontally oriented but mildly complex tear of the posterior horn and body of the medial meniscus. No fragments. There is subtle subcortical edema along the medial corner of the medial tibial plateau. There is a small joint effusion. Impression dictated by: Bay Flanagan M.D. 02/28/2025 9:14 AM Dictation Location: [place] [address] Electronically authenticated by: [id number] Y Date: 02/28/2025 09:14
== END 2025-02-28 06:46 | disposition home or self-care (01) ==
PROVIDERS: PCP Family Medicine; Visit Provider Family Medicine
DX: M23.92 Unspecified internal derangement of left knee (principal); S83.232A Complex tear of medial meniscus, current injury, left knee, initial encounter; M25.462 Effusion, left knee
CPT/HCPCS: 73721